=== PATIENT | female | born 1960 | race Caucasian/White ===

== ENCOUNTER 2016-06-04 17:09 | Inpatient (IN) | payer OTHER ==
[2016-06-04] MEDS ORDERED: Zofran 4 MG/2 ML VIAL IV ONE (17:37)
[2016-06-04] MEDS ORDERED: Sodium Chloride 0.9% 1000 ML 1,000 ML IV STA (17:37)
--- NOTE | 2016-06-04 17:37 | ERPHSYRPT ---
- History of Present Illness Time Seen by Provider: 06/04/16 17:32 Source: patient, family Exam Limitations: no limitations Patient Subjective Stated Complaint: PT REPORTS WAKING UP THIS AM WITH VOMITING- STATES THAT HER ACCU CHECKS HAVE BEEN OVER 500 EVEN TREATED WITH INSULIN-DENIES DIARRHEA- Triage Nursing Assessment: PT FLUSHED WARM ET DRY-A & O X 3-ABD NONTENDER TO PALP-RESP NONLABORED AT THIS TIME Physician History: The patient is a 55-year-old female who by her complaining of significant episodes of vomiting all day. The patient is a type I diabetic with an insulin pump. Her blood sugar checks have been in the 500s all day even after giving extra insulin at home. She denies any pain anywhere. She's had an episode similar to this last year which she was hospitalized for a week. Timing/Duration: today Severity: severe Modifying Factors: Improves With: nothing Associated Symptoms: nausea, vomiting, No abdominal pain Allergies/Adverse Reactions: codeine Allergy (Verified 06/04/16 17:20) orphenadrine citrate [From Norflex] Allergy (Verified 06/04/16 17:20) acetaminophen [From [facility]] Adverse Reaction (Verified 06/04/16 17:20) hydrocodone bitartrate [From [facility]] Adverse Reaction (Verified 06/04/16 17:20) levofloxacin [From Levaquin] Adverse Reaction (Verified 06/04/16 17:20) Nausea and Vomiting Home Medications: Alprazolam 1 mg [Xanax 1 mg] 1 mg PO TID 09/28/14 [History] Vitamin B Complex 1 each PO DAILY 09/22/15 [History] Vitamin E 400 Units [Vitamin E 400 UNIT SOFTGEL] 400 unit PO DAILY [History] Promethazine HCl 25 mg [Phenergan 25 mg] 25 mg PO Q4HPRN PRN 10/14/15 [ History] Hx Tetanus, Diphtheria Vaccination/Date Given: Yes Hx Influenza Vaccination/Date Given: Yes Hx Pneumococcal Vaccination/Date Given: Yes Immunizations Up to Date: Yes - Review of Systems Constitutional: No Fever, No Chills Eyes: No Symptoms Ears, Nose, & Throat: No Symptoms Respiratory: No Cough, No Dyspnea Cardiac: No Chest Pain, No Edema, No Syncope Abdominal/Gastrointestinal: Nausea, Vomiting Genitourinary Symptoms: No Dysuria Musculoskeletal: No Back Pain, No Neck Pain Skin: No Rash Neurological: No Dizziness, No Focal Weakness, No Sensory Changes Psychological: No Symptoms Endocrine: No Symptoms Hematologic/Lymphatic: No Symptoms Immunological/Allergic: No Symptoms All Other Systems: Reviewed and Negative - Past Medical History Pertinent Past Medical History: Yes Neurological History: No Pertinent History ENT History: No Pertinent History Cardiac History: Coronary Artery Disease Respiratory History: COPD Endocrine Medical History: Diabetes Type I Musculoskeletal History: Degenerative Disk Disease, Other GI Medical History: GERD History: No Pertinent History Psycho-Social History: Anxiety, Depression Female Reproductive Disorders: No Pertinent History Other Medical History: HAS INSULIN PUMP. cardiac STENT PLACEMENT X 2, back problem - Past Surgical History Past Surgical History: Yes Neuro Surgical History: No Pertinent History Cardiac: Cardiac Catheterization, Cardiac Stent Respiratory: No Pertinent History Gastrointestinal: Cholecystectomy Genitourinary: No Pertinent History Musculoskeletal: Other Female Surgical History: Tubal Ligation Other Surgical History: BUNONECTOMY. BACK SURGERY X2 - Social History Smoking Status: Current every day smoker How long have you smoked: 20 + years Exposure to second hand smoke: Yes Alcohol Use: None Drug Use: none Patient Lives Alone: No Significant Family History: heart disease, diabetes, hypertension - Female History Hx Now: No - Nursing Vital Signs Nursing Vital Signs: Initial Vital Signs Temperature 97.8 F Temperature Source Oral Pulse Rate 102 Respiratory Rate 20 Blood Pressure [Right Arm] 118/55 Pain Intensity 0 - Physical Exam General Appearance: moderate distress Eye Exam: PERRL/EOMI, eyes nml inspection Ears, Nose, Throat Exam: normal ENT inspection, TMs normal, pharynx normal, moist mucous membranes Neck Exam: normal inspection, non-tender, supple, full range of motion Respiratory Exam: normal breath sounds, lungs clear, No respiratory distress Cardiovascular Exam: tachycardia Gastrointestinal/Abdomen Exam: soft, normal bowel sounds, No tenderness, No mass Pelvic Exam: not done Rectal Exam: not done Back Exam: normal inspection, normal range of motion, No CVA tenderness, No vertebral tenderness Extremity Exam: normal inspection, normal range of motion, pelvis stable Neurologic Exam: alert, oriented x 3, cooperative, normal mood/affect, nml cerebellar function, nml station & gait, sensation nml, No motor deficits Skin Exam: normal color, warm, dry, No rash Lymphatic Exam: No adenopathy SpO2 Interpretation: normal SpO2: 95 Oxygen Delivery: Room Air Ordered Tests: Active Orders 24 hr Category Date Time Status Accucheck STAT Care 06/04/16 17:37 Active Chair Inspector And Leveler STAT Care 06/04/16 17:37 Active IV Insertion STAT Care 06/04/16 17:37 Active Pulse Oximetry (ED) STAT Care 06/04/16 17:37 Active ARTERIAL BLOOD GASES Urgent Lab 06/04/16 17:37 Results CBC W DIFF Stat Lab 06/04/16 17:45 Completed CMP Stat Lab 06/04/16 17:45 Completed Ethyl Alcohol,Urine Stat Lab 06/04/16 17:37 Ordered Lactic Acid Urgent Lab 06/04/16 17:37 Results Manual Differential NC Stat Lab 06/04/16 17:45 Completed UA Stat Lab 06/04/16 17:37 Ordered Medication Summary Discontinued Medications Generic Name Dose Route Start Last Admin Trade Name Freq PRN Reason Stop Dose Admin Sodium Chloride 1,000 mls @ 999 mls/hr 06/04/16 17:37 06/04/16 17:48 Sodium Chloride 0.9% 1000 Ml IV 06/04/16 18:37 999 mls/hr .Q1H1M STA Administration Sodium Chloride Confirm 06/04/16 17:46 Sodium Chloride 0.9% 1000 Ml Administered 06/04/16 17:47 Dose 1,000 mls @ ud .ROUTE .STK-MED ONE Insulin Human Regular 10 unit 06/04/16 18:47 06/04/16 18:54 Novolin R SQ 06/04/16 18:48 10 unit STAT ONE Administration Insulin Human Regular Confirm 06/04/16 18:54 Novolin R Administered 06/04/16 18:55 Dose 10 unit .ROUTE .STK-MED ONE Ondansetron HCl 4 mg 06/04/16 17:37 06/04/16 17:50 Zofran 4 Mg/2 Ml Vial IV 06/04/16 17:38 4 mg STAT ONE Administration Ondansetron HCl Confirm 06/04/16 17:46 Zofran 4 Mg/2 Ml Vial Administered 06/04/16 17:47 Dose 4 mg .ROUTE .STK-MED ONE Lab/Rad Data: Laboratory Result Diagrams 06/04/16 17:45 06/04/16 17:45 Laboratory Results 06/04/16 06/04/16 06/04/16 Range/Units 17:45 17:45 17:37 WBC 15.5 H (4.0-10.5) K/mm3 RBC 4.36 (4.1-5.4) M/mm3 Hgb 13.0 (12.0-16.0) gm/dl Hct 39.7 (35-47) % MCV 91.1 (78-100) fl MCH 29.8 (26-32) pg MCHC 32.7 (32-36) g/dl RDW 14.3 H (11.5-14.0) % Plt Count 281 (150-450) K/mm3 MPV 9.4 (6-9.5) fl Segmented Neutrophils 87 H (36.0-66.0) % Lymphocytes (Manual) 8 L (24-44) % Monocytes (Manual) 5 (0.0-12.0) % Differential Comment NORMAL Platelet Estimate NORMAL (NORMAL) Puncture Site Pending pCO2 36 (35-45) mmHg pO2 78 (75-100) mmHg Base Excess -8.0 L (-2.0-2.0) O2 Saturation 92.4 L (94-100) g/dF ABG pH 7.30 L (7.35-7.45) ABG HCO3 17.7 L (22-28) ABG O2 Sat (Measured) 96.8 (95-100) % Luis Test Pending A-a Gradient 27 a/A Ratio 0.74 Hemoglobin 13.2 Carboxyhemoglobin 3.9 (0.0-6.9) % THgb Methemoglobin 0.6 L (1.4-1.5) % Potassium 4.5 4.4 (3.5-5.1) Temperature 37.0 C POC O2 Flow Rate 21 % Sodium 138 (136-145) mEq/L Chloride 98 (98-107) mEq/L Carbon Dioxide 17.2 L (21-32) mEq/L Anion Gap 26.9 H (5-15) MEQ/L BUN 24 H (9-20) mg/dL Creatinine 1.38 H (0.55-1.30) mg/dl Estimated GFR 42 ML/MIN Glucose 598 H* (70-110) MG/DL Lactic Acid 3.2 H (0.4-2.0) Calcium 9.9 (8.5-10.1) mg/dL Total Bilirubin 0.6 (0.2-1.0) mg/dL AST 25 (15-37) U/L ALT 20 (12-78) U/L Alkaline Phosphatase 110 (46-116) U/L Serum Total Protein 6.9 (6.4-8.2) gm/dL Albumin 3.4 (3.4-5.0) g/dL - Progress Progress: improved Discussed with Dr.: Other (per Dr Jovanna Licona) Will see patient in: hospital (full admit) Counseled pt/family regarding: lab results, diagnosis - Departure Time of Disposition: 19:00 Departure Disposition: In-patient Admission (ICU per Dr Jovanna Licona) Clinical Impression: DKA (diabetic ketoacidoses) Condition: Stable Critical Care Time: Yes Critical Care Time(excluding separately billable procedures): 30-74 minutes
[2016-06-04] MEDS ORDERED: Zofran 4 MG/2 ML VIAL ONE (17:46)
[2016-06-04] MEDS ORDERED: Sodium Chloride 0.9% 1000 ML 1,000 ML ONE (17:46)
[2016-06-04 17:52] LABS: Mean Cell Volume 91.1 fl (78-100); Mean Corpuscular Hemoglobin 29.8 pg (26-32); Mean Platelet Volume 9.4 fl (6-9.5); Platelet Count 281 K/mm3 (150-450); Red Blood Count 4.36 M/mm3 (4.1-5.4); Red Cell Distribution Width 14.3 % (11.5-14.0); White Blood Count 15.5 K/mm3 (4.0-10.5)
[2016-06-04 17:56] LABS: A-aADO2 27; ARTERIAL BLD GAS O2 SATURATION 96.8 % (95-100); ARTERIAL BLOOD GAS FIO2 21 %; ARTERIAL BLOOD GAS PO2 78 mmHg (75-100); Lactic Acid 3.2 (0.4-2.0)
[2016-06-04 18:13] LABS: ALBUMIN 3.4 g/dL (3.4-5.0); ANION GAP 26.9 MEQ/L (5-15); BILIRUBIN,TOTAL 0.6 mg/dL (0.2-1.0); Carbon Dioxide 17.2 mEq/L (21-32); Potassium 4.5 mEq/L (3.5-5.1); Total Protein 6.9 gm/dL (6.4-8.2)
[2016-06-04] MEDS ORDERED: NovoLIN R SQ ONE (18:47)
[2016-06-04 18:53] LABS: Platelet Estimate NORMAL (NORMAL); Total Cells Counted 100
[2016-06-04] MEDS ORDERED: NovoLIN R ONE ×2 (18:54→19:13)
[2016-06-04 19:07] LABS: ALLEN TEST OK? YES
[2016-06-04] MEDS ORDERED: Sodium Chloride 0.9% 100 ML IVPB 100 ML IV ONE (19:13)
[2016-06-04 19:25] LABS: COMPLETE URINE MICROSCOPIC? YES; Collection Type CLEAN CATCH; Epithelial Cells FEW /HPF (FEW); Ph 5.5 (5-6)
[2016-06-04] MEDS: NOVOLIN R INSULIN (FOR DRIPS)** 100 UNITS in Sodium Chloride 0.9% 100 ML IVPB 100 ML IV PRN ×2 (19:36→20:14)
[2016-06-04] MEDS ORDERED: Sodium Chloride 0.9% 1000 ML 1,000 ML IV SCH (19:45)
[2016-06-04] MEDS ORDERED: NOVOLIN R INSULIN (FOR DRIPS)** 100 UNITS in Sodium Chloride 0.9% 100 ML IVPB 100 ML IV PRN (21:40)
[2016-06-04] MEDS: Sodium Chloride 0.9% 1000 ML 1,000 ML IV SCH (21:59)
[2016-06-04] MEDS: PHENERGAN 25 MG PO PRN (21:59)
[2016-06-05] MEDS: Zofran 4 MG/2 ML VIAL IV PRN ×2 (00:15→06:20)
[2016-06-05] MEDS: XANAX 1 MG PO SCH ×4 (00:16→21:13)
[2016-06-05] MEDS: PHENERGAN 25 MG PO PRN (04:29)
[2016-06-05 04:44] LABS: ANION GAP 20.4 MEQ/L (5-15); Carbon Dioxide 21.9 mEq/L (21-32); Potassium 4.2 mEq/L (3.5-5.1)
[2016-06-05 04:45] LABS: BASOPHIL % 0.1 % (0.0-0.4); Granulocytes % 88.3 % (36.0-66.0); Lymphocytes % 8.6 % (24.0-44.0); Mean Corpuscular Hemoglobin 29.4 pg (26-32); Mean Platelet Volume 9.1 fl (6-9.5); Platelet Count 295 K/mm3 (150-450); Red Blood Count 4.22 M/mm3 (4.1-5.4); Red Cell Distribution Width 14.3 % (11.5-14.0); White Blood Count 18.4 K/mm3 (4.0-10.5)
[2016-06-05] MEDS: Sodium Chloride 0.9% 1000 ML 1,000 ML IV SCH ×5 (07:42→22:01)
--- NOTE | 2016-06-05 08:33 | PCM.HP ---
History of Present Illness - Chief Complaint Chief Complaint: c/o abdominal pain and nausea for 2 days History of Present Illness: The patient is a 55-year-old female who by her complaining of significant episodes of vomiting all day. The patient is a type I diabetic with an insulin pump. Her blood sugar checks have been in the 500s all day even after giving extra insulin at home. She denies any pain anywhere. She's had an episode similar to this last year which she was hospitalized for a week. - Review of Systems Constitutional: Lethargy, Malaise, Weakness, No Fever, No Chills Eyes: No Symptoms Ears, Nose, & Throat: No Symptoms Respiratory: No Cough, No Short Of Breath Cardiac: No Chest Pain, No Edema, No Syncope Abdominal/Gastrointestinal: Abdominal Pain, Nausea, Vomiting, No Diarrhea Genitourinary Symptoms: No Dysuria Musculoskeletal: No Back Pain, No Neck Pain Skin: No Rash Neurological: No Dizziness, No Focal Weakness, No Sensory Changes Psychological: No Symptoms Endocrine: No Symptoms Hematologic/Lymphatic: No Symptoms Immunological/Allergic: No Symptoms Medications & Allergies Home Medications: Home Medication List Alprazolam 1 mg [Xanax 1 mg] 1 mg PO TID 09/28/14 [History Confirmed 06/04] Vitamin B Complex 1 each PO DAILY 09/22/15 [History Confirmed 06/04/16] Vitamin E 400 Units [Vitamin E 400 UNIT SOFTGEL] 400 unit PO DAILY [History Confirmed 06/04/16] Promethazine HCl 25 mg [Phenergan 25 mg] 25 mg PO Q4HPRN PRN 10/14/15 [ History Confirmed 06/04/16] Allergies/Adverse Reactions: Allergies Allergy/AdvReac Type Severity Reaction Status Date / Time codeine Allergy Verified 06/04/16 17:20 orphenadrine citrate Allergy Verified 06/04/16 17:20 [From Norflex] acetaminophen [From [place]] AdvReac Verified 06/04/16 17:20 hydrocodone bitartrate AdvReac Verified 06/04/16 17:20 [From [place]] levofloxacin [From Levaquin] AdvReac Nausea and Verified 06/04/16 17:20 Vomiting - Past Medical History Past Medical History: Yes Neurological History: No Pertinent History ENT History: No Pertinent History Cardiac History: Coronary Artery Disease Respiratory History: COPD Endocrine Medical History: Diabetes Type I Musculoskelatal History: Degenerative Disk Disease, Other GI Medical History: GERD History: No Pertinent History Pyscho-Social History: Anxiety, Depression Reproductive Disorders: No Pertinent History Comment: HAS INSULIN PUMP. cardiac STENT PLACEMENT X 2, back problem - Female History Are you now?: No - Past Surgical History Past Surgical History: Yes Neuro Surgical History: No Pertinent History Cardiac History: Cardiac Catheterization, Cardiac Stent Respiratory Surgery: No Pertinent History GI Surgical History: Cholecystectomy Genitourinary Surgical Hx: No Pertinent History Musculskeletal Surgical Hx: Other Female Surgical History: Tubal Ligation Other Surgical History: BUNONECTOMY. BACK SURGERY X2 - Social History Smoking Status: Current every day smoker How long have you smoked: 20 + years Exposure to second hand smoke: Yes Alcohol: None Drug Use: none Significant Family History: heart disease, diabetes, hypertension - Physical Exam Vital Signs: Vital Signs - 24 hr Temp Pulse Resp BP Pulse Ox 06/05/16 07:46 98.2 F 106 H 20 134/72 94 L 06/05/16 07:00 105 H 19 129/64 95 06/05/16 06:45 21 06/05/16 06:00 107 H 21 145/66 95 06/05/16 05:00 103 H 20 118/58 95 06/05/16 04:00 107 H 22 158/78 95 06/05/16 03:44 22 06/05/16 03:00 103 H 22 153/67 96 06/05/16 02:00 105 H 22 157/77 97 06/05/16 01:00 103 H 24 165/85 96 06/05/16 00:49 103 H 97 06/05/16 00:01 103 H 06/05/16 00:00 98.2 F 103 H 20 165/85 96 06/04/16 23:44 19 06/04/16 22:00 103 H 19 176/80 95 06/04/16 21:40 102 H 24 157/77 94 L 06/04/16 20:56 98.2 F 107 H 16 152/82 94 L 06/04/16 20:50 107 H 16 152/82 94 L 06/04/16 20:49 98.2 F 107 H 16 152/82 94 L 06/04/16 20:00 110 H 16 139/66 96 06/04/16 19:39 110 H 16 139/66 99 06/04/16 19:12 95 06/04/16 18:56 102 H 20 118/55 97 06/04/16 18:35 103 H 20 114/63 97 06/04/16 18:15 97 06/04/16 17:14 97.8 F 107 H 24 149/68 95 General Appearance: moderate distress, alert Neurologic Exam: alert, oriented x 3, cooperative, normal mood/affect, nml cerebellar function, nml station & gait, sensation nml, No motor deficits Eye Exam: PERRL/EOMI, eyes nml inspection Ears, Nose, Throat Exam: normal ENT inspection, TMs normal, pharynx normal, moist mucous membranes Neck Exam: normal inspection, non-tender, supple, full range of motion Respiratory Exam: normal breath sounds, lungs clear, No respiratory distress Cardiovascular Exam: regular rate/rhythm, normal heart sounds, normal peripheral pulses Gastrointestinal/Abdomen Exam: soft, normal bowel sounds, No tenderness, No mass Back Exam: normal inspection, normal range of motion, No CVA tenderness, No vertebral tenderness Extremity Exam: normal inspection, normal range of motion, pelvis stable Skin Exam: normal color, warm, dry, No rash Lymphatic Exam: No adenopathy Results - Labs Lab/Micro Results: Accuchecks Date 06/05/1606/05/1606/05/16 Date 06/05/16 Time 07:45 Time 06:18 Time 06:18 Time 05:36 Accucheck Value: 216 Accucheck Value: 271 Accucheck Value: 317 Accucheck Value: 311 Accucheck Value: 351 Accucheck Value: 357 Lab Results-Last 24 Hours 06/04/16 06/05/16 06/05/16 Range/Units 22:10 00:15 02:24 WBC (4.0-10.5) K/mm3 RBC (4.1-5.4) M/mm3 Hgb (12.0-16.0) gm/dl Hct (35-47) % MCV (78-100) fl MCH (26-32) pg MCHC (32-36) g/dl RDW (11.5-14.0) % Plt Count (150-450) K/mm3 MPV (6-9.5) fl Gran % (36.0-66.0) % Lymphocytes % (24.0-44.0) % Monocytes % (0.0-12.0) % Eosinophils % (0.00-5.0) % Basophils % (0.0-0.4) % Basophils # (0-0.4) Sodium (136-145) mEq/L Potassium (3.5-5.1) mEq/L Chloride (98-107) mEq/L Carbon Dioxide (21-32) mEq/L Anion Gap (5-15) MEQ/L BUN (9-20) mg/dL Creatinine (0.55-1.30) mg/dl Estimated GFR ML/MIN Glucose 435 H 351 H 347 H (70-110) MG/DL Hemoglobin A1c (4.5-6.2) Calcium (8.5-10.1) mg/dL 06/05/16 06/05/16 06/05/16 Range/Units 04:29 04:29 04:29 WBC 18.4 H (4.0-10.5) K/mm3 RBC 4.22 (4.1-5.4) M/mm3 Hgb 12.4 (12.0-16.0) gm/dl Hct 38.4 (35-47) % MCV 91.0 (78-100) fl MCH 29.4 (26-32) pg MCHC 32.3 (32-36) g/dl RDW 14.3 H (11.5-14.0) % Plt Count 295 (150-450) K/mm3 MPV 9.1 (6-9.5) fl Gran % 88.3 H (36.0-66.0) % Lymphocytes % 8.6 L (24.0-44.0) % Monocytes % 3.0 (0.0-12.0) % Eosinophils % 0.0 (0.00-5.0) % Basophils % 0.1 (0.0-0.4) % Basophils # 0.02 (0-0.4) Sodium 143 (136-145) mEq/L Potassium 4.2 (3.5-5.1) mEq/L Chloride 105 (98-107) mEq/L Carbon Dioxide 21.9 (21-32) mEq/L Anion Gap 20.4 H (5-15) MEQ/L BUN 21 H (9-20) mg/dL Creatinine 1.29 (0.55-1.30) mg/dl Estimated GFR 46 ML/MIN Glucose 328 H (70-110) MG/DL Hemoglobin A1c 9.8 H (4.5-6.2) Calcium 9.1 (8.5-10.1) mg/dL 06/05/16 Range/Units 06:18 WBC (4.0-10.5) K/mm3 RBC (4.1-5.4) M/mm3 Hgb (12.0-16.0) gm/dl Hct (35-47) % MCV (78-100) fl MCH (26-32) pg MCHC (32-36) g/dl RDW (11.5-14.0) % Plt Count (150-450) K/mm3 MPV (6-9.5) fl Gran % (36.0-66.0) % Lymphocytes % (24.0-44.0) % Monocytes % (0.0-12.0) % Eosinophils % (0.00-5.0) % Basophils % (0.0-0.4) % Basophils # (0-0.4) Sodium (136-145) mEq/L Potassium (3.5-5.1) mEq/L Chloride (98-107) mEq/L Carbon Dioxide (21-32) mEq/L Anion Gap (5-15) MEQ/L BUN (9-20) mg/dL Creatinine (0.55-1.30) mg/dl Estimated GFR ML/MIN Glucose 274 H (70-110) MG/DL Hemoglobin A1c (4.5-6.2) Calcium (8.5-10.1) mg/dL Accuchecks Date 06/05/16 Date 06/05/16 Date 06/05/16 Date 06/05/16 Time 07:45 Time 06:18 Time 06:18 Time 05:36 Accucheck Value: 216 Accucheck Value: 271 Accucheck Value: 317 Accucheck Value: 311 Accucheck Value: 351 Accucheck Value: 357 Assessment/Plan (1) DKA (diabetic ketoacidoses) Current Visit: Yes Status: Acute Qualifiers: Diabetes mellitus type: type 1 Diabetes mellitus complication detail: without coma Qualified Code(s): E10.10 - Type 1 diabetes mellitus with ketoacidosis without coma Assessment & Plan: Chief Complaint Diagnosis DKA Allergies Allergy/AdvReac Type Severity Reaction Status Date / Time codeine Allergy Verified 06/04/16 17:20 orphenadrine citrate Allergy Verified 06/04/16 17:20 [From Norflex] acetaminophen [From [place]] AdvReac Verified 06/04/16 17:20 hydrocodone bitartrate AdvReac Verified 06/04/16 17:20 [From [place]] levofloxacin [From Levaquin] AdvReac Nausea and Verified 06/04/16 17:20 Vomiting Vital Signs (Last 24 hours) Temp Pulse Resp BP Pulse Ox 06/05/16 07:46 98.2 F 106 H 20 134/72 94 L 06/05/16 07:00 105 H 19 129/64 95 06/05/16 06:45 21 06/05/16 06:00 107 H 21 145/66 95 06/05/16 05:00 103 H 20 118/58 95 06/05/16 04:00 107 H 22 158/78 95 06/05/16 03:44 22 06/05/16 03:00 103 H 22 153/67 96 06/05/16 02:00 105 H 22 157/77 97 06/05/16 01:00 103 H 24 165/85 96 06/05/16 00:49 103 H 97 06/05/16 00:01 103 H 06/05/16 00:00 98.2 F 103 H 20 165/85 96 06/04/16 23:44 19 06/04/16 22:00 103 H 19 176/80 95 06/04/16 21:40 102 H 24 157/77 94 L 06/04/16 20:56 98.2 F 107 H 16 152/82 94 L 06/04/16 20:50 107 H 16 152/82 94 L 06/04/16 20:49 98.2 F 107 H 16 152/82 94 L 06/04/16 20:00 110 H 16 139/66 96 06/04/16 19:39 110 H 16 139/66 99 06/04/16 19:12 95 06/04/16 18:56 102 H 20 118/55 97 06/04/16 18:35 103 H 20 114/63 97 06/04/16 18:15 97 06/04/16 17:14 97.8 F 107 H 24 149/68 95 Current Medications Generic Name Dose Route Start Last Admin Trade Name Petrona PRN Reason Stop Dose Admin Alprazolam 1 mg 06/04/16 22:00 06/05/16 00:16 Xanax 1 Mg PO 07/04/16 21:59 1 mg TID NISSA Administration Sodium Chloride 1,000 mls @ 200 mls/hr 06/04/16 21:45 06/05/16 07:42 Sodium Chloride 0.9% 1000 Ml IV 07/04/16 21:44 100 mls/hr .Q5H NISSA Administration Insulin Human Regular 100 101 mls @ 2.02 mls/hr 06/04/16 21:40 units/ Sodium Chloride IV 07/04/16 21:39 .Q24H PRN HYPERGLYCEMIA Protocol 2 UNITS/HR Ondansetron HCl 4 mg 06/04/16 20:53 06/05/16 06:20 Zofran 4 Mg/2 Ml Vial IV 07/04/16 20:52 4 mg Q6H PRN PRN Administration NAUSEA/VOMITING Promethazine HCl 25 mg 06/04/16 21:37 06/05/16 04:29 Phenergan 25 Mg PO 07/04/16 21:36 25 mg Q4HPRN PRN Administration NAUSEA Promethazine HCl 12.5 mg 06/05/16 08:19 Phenergan 25 Mg Inj IV 07/05/16 08:18 Q6H PRN PRN NAUSEA/VOMITING Discontinued Medications Generic Name Dose Route Start Last Admin Trade Name Petrona PRN Reason Stop Dose Admin Sodium Chloride 1,000 mls @ 999 mls/hr 06/04/16 17:37 06/04/16 17:48 Sodium Chloride 0.9% 1000 Ml IV 06/04/16 18:37 999 mls/hr .Q1H1M STA Administration Sodium Chloride Confirm 06/04/16 17:46 Sodium Chloride 0.9% 1000 Ml Administered 06/04/16 17:47 Dose 1,000 mls @ ud .ROUTE .STK-MED ONE Insulin Human Regular 100 101 mls @ 0 mls/hr 06/04/16 19:05 06/04/16 20:14 units/ Sodium Chloride IV 07/04/16 19:04 2 mls/hr .Q0M PRN Administration HYPERGLYCEMIA Protocol Per Protocol Sodium Chloride Confirm 06/04/16 19:13 Sodium Chloride 0.9% 100 Ml Ivpb Administered 06/04/16 19:14 Dose 100 mls @ ud IV .STK-MED ONE Sodium Chloride 1,000 mls @ 50 mls/hr 06/04/16 19:45 06/04/16 19:37 Sodium Chloride 0.9% 1000 Ml IV 07/04/16 19:44 50 mls/hr .Q20H NISSA Administration Insulin Human Regular 10 unit 06/04/16 18:47 06/04/16 18:54 Novolin R SQ 06/04/16 18:48 10 unit STAT ONE Administration Insulin Human Regular Confirm 06/04/16 18:54 Novolin R Administered 06/04/16 18:55 Dose 10 unit .ROUTE .STK-MED ONE Insulin Human Regular Confirm 06/04/16 19:13 Novolin R Administered 06/04/16 19:14 Dose 1 unit .ROUTE .STK-MED ONE Ondansetron HCl 4 mg 06/04/16 17:37 06/04/16 17:50 Zofran 4 Mg/2 Ml Vial IV 06/04/16 17:38 4 mg STAT ONE Administration Ondansetron HCl Confirm 06/04/16 17:46 Zofran 4 Mg/2 Ml Vial Administered 06/04/16 17:47 Dose 4 mg .ROUTE .STK-MED ONE Intake & Output (Last 24 hours) 06/02/16 06/03/16 06/04/16 06/05/16 11:59 11:59 11:59 11:59 Intake Total 2660 Output Total 1925 Balance 735 Weight 62.913 kg Laboratory Results (Last 24 hours) 06/05/16 06/05/16 06/05/16 06:18 04:29 04:29 WBC RBC Hgb Hct MCV MCH MCHC RDW Plt Count MPV Gran % Lymphocytes % Monocytes % Eosinophils % Basophils % Segmented Neutrophils Lymphocytes (Manual) Monocytes (Manual) Basophils # Differential Comment Platelet Estimate Puncture Site pCO2 pO2 Base Excess O2 Saturation ABG pH ABG HCO3 ABG O2 Sat (Measured) Luis Test A-a Gradient a/A Ratio Hemoglobin Carboxyhemoglobin Methemoglobin Potassium 4.2 Temperature POC O2 Flow Rate Sodium 143 Chloride 105 Carbon Dioxide 21.9 Anion Gap 20.4 H BUN 21 H Creatinine 1.29 Estimated GFR 46 Glucose 274 H 328 H Hemoglobin A1c 9.8 H Lactic Acid Calcium 9.1 Total Bilirubin AST ALT Alkaline Phosphatase Serum Total Protein Albumin Ur Collection Type Urine Color Urine Appearance Urine pH Ur Specific [place] Urine Protein Urine Glucose (UA) Urine Ketones Urine Nitrite Urine Bilirubin Urine Urobilinogen Urine WBC (Auto) Urine RBC (Auto) Ur Epithelial Cells Urine Ethyl Alcohol Specimen Received 06/05/16 06/05/16 06/05/16 04:29 02:24 00:15 WBC 18.4 H RBC 4.22 Hgb 12.4 Hct 38.4 MCV 91.0 MCH 29.4 MCHC 32.3 RDW 14.3 H Plt Count 295 MPV 9.1 Gran % 88.3 H Lymphocytes % 8.6 L Monocytes % 3.0 Eosinophils % 0.0 Basophils % 0.1 Segmented Neutrophils Lymphocytes (Manual) Monocytes (Manual) Basophils # 0.02 Differential Comment Platelet Estimate Puncture Site pCO2 pO2 Base Excess O2 Saturation ABG pH ABG HCO3 ABG O2 Sat (Measured) Luis Test A-a Gradient a/A Ratio Hemoglobin Carboxyhemoglobin Methemoglobin Potassium Temperature POC O2 Flow Rate Sodium Chloride Carbon Dioxide Anion Gap BUN Creatinine Estimated GFR Glucose 347 H 351 H Hemoglobin A1c Lactic Acid Calcium Total Bilirubin AST ALT Alkaline Phosphatase Serum Total Protein Albumin Ur Collection Type Urine Color Urine Appearance Urine pH Ur Specific [place] Urine Protein Urine Glucose (UA) Urine Ketones Urine Nitrite Urine Bilirubin Urine Urobilinogen Urine WBC (Auto) Urine RBC (Auto) Ur Epithelial Cells Urine Ethyl Alcohol Specimen Received 06/04/16 06/04/16 06/04/16 22:10 19:15 19:15 WBC RBC Hgb Hct MCV MCH MCHC RDW Plt Count MPV Gran % Lymphocytes % Monocytes % Eosinophils % Basophils % Segmented Neutrophils Lymphocytes (Manual) Monocytes (Manual) Basophils # Differential Comment Platelet Estimate Puncture Site pCO2 pO2 Base Excess O2 Saturation ABG pH ABG HCO3 ABG O2 Sat (Measured) Luis Test A-a Gradient a/A Ratio Hemoglobin Carboxyhemoglobin Methemoglobin Potassium Temperature POC O2 Flow Rate Sodium Chloride Carbon Dioxide Anion Gap BUN Creatinine Estimated GFR Glucose 435 H Hemoglobin A1c Lactic Acid Calcium Total Bilirubin AST ALT Alkaline Phosphatase Serum Total Protein Albumin Ur Collection Type CLEAN CATCH Urine Color LT.YELLOW Urine Appearance CLEAR Urine pH 5.5 5.5 Ur Specific [place] <=1.005 Urine Protein NEGATIVE Urine Glucose (UA) >=1000 Urine Ketones LARGE-80 Urine Nitrite NEGATIVE Urine Bilirubin NEGATIVE Urine Urobilinogen 0.2 Urine WBC (Auto) NEGATIVE Urine RBC (Auto) TRACE HEMOLYZED Ur Epithelial Cells FEW Urine Ethyl Alcohol 0 Specimen Received 06/04/16:1915 06/04/16 06/04/16 06/04/16 17:45 17:45 17:37 WBC 15.5 H RBC 4.36 Hgb 13.0 Hct 39.7 MCV 91.1 MCH 29.8 MCHC 32.7 RDW 14.3 H Plt Count 281 MPV 9.4 Gran % Lymphocytes % Monocytes % Eosinophils % Basophils % Segmented Neutrophils 87 H Lymphocytes (Manual) 8 L Monocytes (Manual) 5 Basophils # Differential Comment NORMAL Platelet Estimate NORMAL Puncture Site LEFT BRACHIAL pCO2 36 pO2 78 Base Excess -8.0 L O2 Saturation 92.4 L ABG pH 7.30 L ABG HCO3 17.7 L ABG O2 Sat (Measured) 96.8 Luis Test YES A-a Gradient 27 a/A Ratio 0.74 Hemoglobin 13.2 Carboxyhemoglobin 3.9 Methemoglobin 0.6 L Potassium 4.5 4.4 Temperature 37.0 POC O2 Flow Rate 21 Sodium 138 Chloride 98 Carbon Dioxide 17.2 L Anion Gap 26.9 H BUN 24 H Creatinine 1.38 H Estimated GFR 42 Glucose 598 H* Hemoglobin A1c Lactic Acid 3.2 H Calcium 9.9 Total Bilirubin 0.6 AST 25 ALT 20 Alkaline Phosphatase 110 Serum Total Protein 6.9 Albumin 3.4 Ur Collection Type Urine Color Urine Appearance Urine pH Ur Specific [place] Urine Protein Urine Glucose (UA) Urine Ketones Urine Nitrite Urine Bilirubin Urine Urobilinogen Urine WBC (Auto) Urine RBC (Auto) Ur Epithelial Cells Urine Ethyl Alcohol Specimen Received Orders (Last 24 hours) Category Date Time Status Up With Assistance ROUTINE Activity 06/04/16 20:53 Active Accucheck Q3H Care 06/05/16 08:20 Active Accucheck STAT Care 06/04/16 17:37 Completed Admission/Status Order ROUTINE Care 06/04/16 20:53 Active Test Case Developer STAT Care 06/04/16 17:37 Active Test Case Developer STAT Care 06/04/16 19:35 Completed Code Status Order ROUTINE Care 06/04/16 20:53 Active IV Care Q1H Care 06/04/16 20:53 Active IV Insertion STAT Care 06/04/16 17:37 Active Pulse Oximetry (ED) STAT Care 06/04/16 17:37 Active Infection Control Consult ROUTINE Cons 06/04/16 21:14 Active Clear Liquid Diet 06/05/16 Breakfast Active Nutritional Admission Screen once Diet 06/04/16 21:14 Completed ARTERIAL BLOOD GASES Urgent Lab 06/04/16 17:37 Completed BMP AM.LAB Lab 06/05/16 04:29 Completed Blood Sugar [Glucose] Urgent Lab 06/04/16 22:10 Completed CBC Routine Lab 06/05/16 15:00 Ordered CBC W DIFF AM.LAB Lab 06/05/16 04:29 Completed CBC W DIFF Stat Lab 06/04/16 17:45 Completed CMP Routine Lab 06/05/16 15:00 Ordered CMP Stat Lab 06/04/16 17:45 Completed Ethyl Alcohol,Urine Stat Lab 06/04/16 19:15 Completed Glucose Urgent Lab 06/05/16 00:15 Completed Glucose Urgent Lab 06/05/16 02:24 Completed Glucose Urgent Lab 06/05/16 06:18 Completed HEMOGLOBIN A1C Routine Lab 06/05/16 04:29 Completed Lactic Acid Urgent Lab 06/04/16 17:37 Completed Manual Differential NC Stat Lab 06/04/16 17:45 Completed UA W/ MICROSCOPIC Stat Lab 06/04/16 19:15 Completed Alprazolam 1 mg [Xanax 1 mg] Med 06/04/16 22:00 Active 1 mg PO TID Insulin Regular, Human [NovoLIN R] Med 06/04/16 19:13 Discontinued 1 unit .ROUTE .STK-MED ONE Insulin Regular, Human [NovoLIN R] Med 06/04/16 18:54 Discontinued 10 unit .ROUTE .STK-MED ONE Insulin Regular, Human [NovoLIN R] Med 06/04/16 18:47 Discontinued 10 unit SQ STAT ONE NaCl 0.9% 1000 ml [Sodium Chloride 0.9% 1000 ML] 1,000 Med 06/04/16 17:46 Discontinued ml .ROUTE UD NaCl 0.9% 1000 ml [Sodium Chloride 0.9% 1000 ML] 1,000 Med 06/04/16 21:45 Active ml IV 200 mls/hr NaCl 0.9% 1000 ml [Sodium Chloride 0.9% 1000 ML] 1,000 Med 06/04/16 19:45 Discontinued ml IV 50 mls/hr NaCl 0.9% 1000 ml [Sodium Chloride 0.9% 1000 ML] 1,000 Med 06/04/16 17:37 Discontinued ml IV 999 mls/hr NaCl 0.9% 100Ml [Sodium Chloride 0.9% 100 ML IVPB] 100 Med 06/04/16 21:40 Active ml Insulin Reg Human Rec [Novolin R Insulin (For Drips)* *] 100 units IV 2 units/hr NaCl 0.9% 100Ml [Sodium Chloride 0.9% 100 ML IVPB] 100 Med 06/04/16 19:05 Discontinued ml Insulin Reg Human Rec [Novolin R Insulin (For Drips)* *] 100 units IV Per Protocol NaCl 0.9% 100Ml [Sodium Chloride 0.9% 100 ML IVPB] 100 Med 06/04/16 19:13 Discontinued ml IV UD Ondansetron HCl 4 mg/2 ml [Zofran 4 MG/2 ML VIAL] Med 06/04/16 17:46 Discontinued 4 mg .ROUTE .STK-MED ONE Ondansetron HCl 4 mg/2 ml [Zofran 4 MG/2 ML VIAL] Med 06/04/16 20:53 Active 4 mg IV Q6H PRN PRN Ondansetron HCl 4 mg/2 ml [Zofran 4 MG/2 ML VIAL] Med 06/04/16 17:37 Discontinued 4 mg IV STAT ONE Promethazine HCl 25 mg Amp [Phenergan 25 MG INJ] Med 06/05/16 08:19 Ordered 12.5 mg IV Q6H PRN PRN Promethazine HCl 25 mg [Phenergan 25 mg] Med 06/04/16 21:37 Active 25 mg PO Q4HPRN PRN Transfer Order Routine Transfer 06/04/16 19:01 Completed Patient Care Notes (Last 24 hours) 06/05/16 08:23 Nursing Note by Erika Greenberg dr. at bedside, ivf increased to 200cc/hr, given order to change accuchecks to q3h cbc, cmp at 3 pm today, Increase IV fluid to 200 cc/hr, accucheck q3 h Code(s): E13.10 - OTH DIABETES MELLITUS WITH KETOACIDOSIS WITHOUT COMA (2) Diabetes mellitus, insulin dependent (IDDM), uncontrolled Current Visit: No Status: Chronic Code(s): E10.65 - TYPE 1 DIABETES MELLITUS WITH HYPERGLYCEMIA (3) Type 1 diabetes mellitus Current Visit: No Status: Chronic
[2016-06-05] MEDS: Phenergan 25 MG INJ IV PRN ×3 (08:51→21:49)
[2016-06-05 15:29] LABS: Mean Cell Volume 90.6 fl (78-100); Mean Corpuscular Hemoglobin 29.8 pg (26-32); Mean Platelet Volume 8.9 fl (6-9.5); Platelet Count 254 K/mm3 (150-450); Red Blood Count 3.82 M/mm3 (4.1-5.4); Red Cell Distribution Width 14.5 % (11.5-14.0); White Blood Count 16.2 K/mm3 (4.0-10.5)
[2016-06-05 15:38] LABS: ALBUMIN 2.8 g/dL (3.4-5.0); ANION GAP 16.1 MEQ/L (5-15); BILIRUBIN,TOTAL 0.4 mg/dL (0.2-1.0); Carbon Dioxide 23.6 mEq/L (21-32); Potassium 3.8 mEq/L (3.5-5.1)
[2016-06-06] MEDS: Sodium Chloride 0.9% 1000 ML 1,000 ML IV SCH ×2 (03:05→08:40)
[2016-06-06] MEDS: Phenergan 25 MG INJ IV PRN (03:53)
[2016-06-06 05:48] LABS: Mean Cell Volume 91.6 fl (78-100); Mean Corpuscular Hemoglobin 29.6 pg (26-32); Mean Platelet Volume 8.7 fl (6-9.5); Platelet Count 204 K/mm3 (150-450); Red Blood Count 3.71 M/mm3 (4.1-5.4); Red Cell Distribution Width 14.8 % (11.5-14.0); White Blood Count 11.9 K/mm3 (4.0-10.5)
[2016-06-06 06:10] VITALS: O2SAT 96
[2016-06-06 06:18] LABS: ALBUMIN 2.5 g/dL (3.4-5.0); ALKALINE PHOSPHATASE 79 U/L (46-116); BILIRUBIN,TOTAL 0.3 mg/dL (0.2-1.0); BLOOD UREA NITROGEN 11 mg/dL (9-20); CHLORIDE 110 mEq/L (98-107); Glucose 117 MG/DL (70-110); MAGNESIUM 1.3 mg/dL (1.8-2.4); Potassium 3.5 mEq/L (3.5-5.1); SGOT/AST 18 U/L (15-37); SGPT/ALT 18 U/L (12-78); SODIUM 144 mEq/L (136-145); Total Protein 5.5 gm/dL (6.4-8.2)
[2016-06-06] MEDS ORDERED: Potassium Chloride 40 MEQ/20 ML VIAL 40 MEQ, Magnesium Sulfate 1 GM/2 ML VIAL*** 2 GM i... IV SCH ×3 (08:30)
[2016-06-06] MEDS: XANAX 1 MG PO SCH (08:39)
[2016-06-06] MEDS ORDERED: NON-FORMULARY ITEM (Vitamin B Complex [Vitamin B Complex] 1 EACH) PO SCH (10:00)
[2016-06-06] MEDS ORDERED: Vitamin E 400 UNIT SOFTGEL PO SCH (10:00)
[2016-06-06] MEDS ORDERED: VITA-BEE WITH C PO SCH (10:00)
[2016-06-06 11:41] VITALS: BP 143/93; PULSE 68
--- NOTE | 2016-06-06 12:20 | PCM.DS ---
Discharge Summary Date of Admission: 06/04/16 20:45 Admitting Physician: ANH BEDOYA Primary Care Provider: LYUDMILA ARIAS Allergies Allergies codeine Allergy (Verified 06/04/16 17:20) orphenadrine citrate [From Norflex] Allergy (Verified 06/04/16 17:20) acetaminophen [From [place]] Adverse Reaction (Verified 06/04/16 17:20) hydrocodone bitartrate [From [place]] Adverse Reaction (Verified 06/04/16 17:20) levofloxacin [From Levaquin] Adverse Reaction (Verified 06/04/16 17:20) Nausea and Vomiting Hospital Summary - Hospital Course Hospital Course: Chief Complaint Diagnosis c/o abdominal pain and nausea for 2 days Allergies Allergy/AdvReac Type Severity Reaction Status Date / Time codeine Allergy Verified 06/04/16 17:20 orphenadrine citrate Allergy Verified 06/04/16 17:20 [From Norflex] acetaminophen [From [place]] AdvReac Verified 06/04/16 17:20 hydrocodone bitartrate AdvReac Verified 06/04/16 17:20 [From [place]] levofloxacin [From Levaquin] AdvReac Nausea and Verified 06/04/16 17:20 Vomiting Vital Signs (Last 24 hours) Temp Pulse Resp BP Pulse Ox 06/06/16 11:40 97.9 F 68 18 143/93 96 06/06/16 07:58 73 06/06/16 07:57 73 15 96 06/06/16 07:00 98.1 F 74 16 134/83 96 06/06/16 06:00 66 21 96 06/06/16 05:00 68 19 126/72 95 06/06/16 04:00 98.3 F 66 20 139/85 96 06/06/16 03:00 68 20 141/81 96 06/06/16 02:37 71 16 117/65 95 06/06/16 01:00 72 20 136/84 97 06/06/16 00:01 71 06/06/16 00:00 71 20 139/83 97 06/05/16 23:00 80 18 130/80 06/05/16 22:00 82 18 06/05/16 21:00 76 20 123/81 95 06/05/16 20:00 85 15 138/78 96 06/05/16 18:54 85 21 144/78 94 L 06/05/16 17:57 89 19 111/63 96 06/05/16 16:55 91 H 19 127/69 96 06/05/16 16:00 89 16 127/69 95 06/05/16 15:00 91 H 16 136/98 96 06/05/16 13:45 98.2 F 85 16 126/61 98 06/05/16 12:39 85 16 131/74 98 Current Medications Generic Name Dose Route Start Last Admin Trade Name Freq PRN Reason Stop Dose Admin Alprazolam 1 mg 06/04/16 22:00 06/06/16 08:39 Xanax 1 Mg PO 07/04/16 21:59 1 mg TID NISSA Administration Sodium Chloride 1,000 mls @ 100 mls/hr 06/04/16 21:45 06/06/16 08:40 Sodium Chloride 0.9% 1000 Ml IV 07/04/16 21:44 100 mls/hr .Q10H NISSA Administration Insulin Human Regular 100 101 mls @ 2.02 mls/hr 06/04/16 21:40 06/05/16 16:50 units/ Sodium Chloride IV 07/04/16 21:39 2.02 mls/hr .Q24H PRN Administration HYPERGLYCEMIA Protocol 2 UNITS/HR Potassium Chloride 40 meq/ 274 mls @ 68 mls/hr 06/06/16 08:30 06/06/16 08:39 Magnesium Sulfate 2 gm/ Sodium IV 06/06/16 12:31 68 mls/hr Chloride .Q4H2M NISSA Administration Multivitamins 1 tab 06/06/16 10:00 06/06/16 11:31 Vidya-Bee With C PO 07/06/16 09:59 1 tab DAILY NISSA Administration Ondansetron HCl 4 mg 06/04/16 20:53 06/05/16 06:20 Zofran 4 Mg/2 Ml Vial IV 07/04/16 20:52 4 mg Q6H PRN PRN Administration NAUSEA/VOMITING Promethazine HCl 25 mg 06/04/16 21:37 06/05/16 04:29 Phenergan 25 Mg PO 07/04/16 21:36 25 mg Q4HPRN PRN Administration NAUSEA Promethazine HCl 12.5 mg 06/05/16 08:19 02/06/17 03:53 Phenergan 25 Mg Inj IV 07/05/16 08:18 12.5 mg Q6H PRN PRN Administration NAUSEA/VOMITING Vitamin E 400 u 06/06/16 10:00 06/06/16 11:31 Vitamin E 400 Unit Softgel PO 07/06/16 09:59 400 u DAILY NISSA Administration Discontinued Medications Generic Name Dose Route Start Last Admin Trade Name Freq PRN Reason Stop Dose Admin Sodium Chloride 1,000 mls @ 999 mls/hr 06/04/16 17:37 06/04/16 17:48 Sodium Chloride 0.9% 1000 Ml IV 06/04/16 18:37 999 mls/hr .Q1H1M STA Administration Sodium Chloride Confirm 06/04/16 17:46 Sodium Chloride 0.9% 1000 Ml Administered 06/04/16 17:47 Dose 1,000 mls @ ud .ROUTE .STK-MED ONE Insulin Human Regular 100 101 mls @ 0 mls/hr 06/04/16 19:05 06/04/16 20:14 units/ Sodium Chloride IV 07/04/16 19:04 2 mls/hr .Q0M PRN Administration HYPERGLYCEMIA Protocol Per Protocol Sodium Chloride Confirm 06/04/16 19:13 Sodium Chloride 0.9% 100 Ml Ivpb Administered 06/04/16 19:14 Dose 100 mls @ ud IV .STK-MED ONE Sodium Chloride 1,000 mls @ 50 mls/hr 06/04/16 19:45 06/04/16 19:37 Sodium Chloride 0.9% 1000 Ml IV 07/04/16 19:44 50 mls/hr .Q20H NISSA Administration Insulin Human Regular 10 unit 06/04/16 18:47 06/04/16 18:54 Novolin R SQ 06/04/16 18:48 10 unit STAT ONE Administration Insulin Human Regular Confirm 06/04/16 18:54 Novolin R Administered 06/04/16 18:55 Dose 10 unit .ROUTE .STK-MED ONE Insulin Human Regular Confirm 06/04/16 19:13 Novolin R Administered 06/04/16 19:14 Dose 1 unit .ROUTE .STK-MED ONE Ondansetron HCl 4 mg 06/04/16 17:37 06/04/16 17:50 Zofran 4 Mg/2 Ml Vial IV 06/04/16 17:38 4 mg STAT ONE Administration Ondansetron HCl Confirm 06/04/16 17:46 Zofran 4 Mg/2 Ml Vial Administered 06/04/16 17:47 Dose 4 mg .ROUTE .STK-MED ONE Intake & Output (Last 24 hours) 06/04/16 06/05/16 06/06/16 06/07/16 11:59 11:59 11:59 11:59 Intake Total 2660 6116 Output Total 1925 Balance 735 6116 Weight 62.913 kg Laboratory Results (Last 24 hours) 06/06/16 06/06/16 06/05/16 05:35 05:35 15:02 WBC 11.9 H RBC 3.71 L Hgb 11.0 L Hct 34.0 L MCV 91.6 MCH 29.6 MCHC 32.4 RDW 14.8 H Plt Count 204 MPV 8.7 Sodium 144 142 Potassium 3.5 3.8 Chloride 110 H 106 Carbon Dioxide 26.0 23.6 Anion Gap 11.0 16.1 H BUN 11 19 Creatinine 0.85 1.08 Estimated GFR > 60 56 Glucose 117 H 164 H Calcium 8.3 L 8.4 L Magnesium 1.3 L Total Bilirubin 0.3 0.4 AST 18 15 ALT 18 21 Alkaline Phosphatase 79 89 Serum Total Protein 5.5 L 6.0 L Albumin 2.5 L 2.8 L 06/05/16 15:02 WBC 16.2 H RBC 3.82 L Hgb 11.4 L Hct 34.6 L MCV 90.6 MCH 29.8 MCHC 32.9 RDW 14.5 H Plt Count 254 MPV 8.9 Sodium Potassium Chloride Carbon Dioxide Anion Gap BUN Creatinine Estimated GFR Glucose Calcium Magnesium Total Bilirubin AST ALT Alkaline Phosphatase Serum Total Protein Albumin Orders (Last 24 hours) Category Date Time Status Miscellaneous Nursing Order ROUTINE Care 06/06/16 08:22 Active 2000 Calorie ADA Diet 06/06/16 Lunch Active CBC Routine Lab 06/05/16 15:02 Completed CBC Routine Lab 06/06/16 05:35 Completed CMP Routine Lab 06/05/16 15:02 Completed CMP Routine Lab 06/06/16 05:35 Completed MAG [MAGNESIUM] Routine Lab 06/06/16 05:35 Completed NaCl 0.9% 250 ml [Sodium Chloride 0.9% 250 ML] 250 ml Med 06/06/16 08:30 Active Potassium Cl 40 Meq/20 ml Vial [Potassium Chloride 40 MEQ/20 ML VIAL] 40 meq Magnesium Sulfate 1 gm/2 ml [Magnesium Sulfate 1 GM/ 2 ML VIAL] 2 gm IV 68 mls/hr Vitamin B Comp W-C [Vidya-Bee with C] Med 06/06/16 10:00 Active 1 tab PO DAILY Vitamin E 400 Units [Vitamin E 400 UNIT SOFTGEL] Med 06/06/16 10:00 Active 400 u PO DAILY Patient Care Notes (Last 24 hours) 06/06/16 08:31 Nursing Note by Shalini Frank Pt educated on plan of care to meet her request to go home today. Pt is in agreement with plan of care. Pt called her daughter who is going to bring her insulin pump from home. Initialized on 06/06/16 08:31 - END OF NOTE 06/05/16 16:12 Nursing Note by Erika Greenberg dr. updated via phone of lab results and pt condition. new orders for labs in am noted. Initialized on 06/05/16 16:12 - END OF NOTE - Vitals & Intake/Output Vital Signs: Vital Signs Temperature 97.9 F 06/06/16 11:40 Pulse Rate 68 06/06/16 11:40 Respiratory Rate 18 06/06/16 11:40 Blood Pressure 143/93 06/06/16 11:40 O2 Sat by Pulse Oximetry 96 06/06/16 11:40 Intake & Output: Intake & Output 06/04/16 06/05/16 06/06/16 06/07/16 11:59 11:59 11:59 11:59 Intake Total 2660 6116 Output Total 1925 Balance 735 6116 Weight 62.913 kg - Lab Result Diagrams: 06/06/16 05:35 06/06/16 05:35 Lab Results-Last 24 Hrs: Accuchecks Date 06/06/16 Date 06/06/16 Date 06/06/16 Date 06/06/16 Date 06/05/16 Date 06/05/16 Date 06/05/16 Date 06/05/16 Time 11:30 Time 07:50 Time 05:35 Time 02:37 Time 23:30 Time 20:36 Time 16:56 Time 13:45 Accucheck Value: 113 Accucheck Value: 96 Accucheck Value: 136 Accucheck Value: 161 Accucheck Value: 165 Accucheck Value: 167 Accucheck Value: 154 Lab Results-Last 24 Hours 06/05/16 06/05/16 06/06/16 Range/Units 15:02 15:02 05:35 WBC 16.2 H 11.9 H (4.0-10.5) K/mm3 RBC 3.82 L 3.71 L (4.1-5.4) M/mm3 Hgb 11.4 L 11.0 L (12.0-16.0) gm/dl Hct 34.6 L 34.0 L (35-47) % MCV 90.6 91.6 (78-100) fl MCH 29.8 29.6 (26-32) pg MCHC 32.9 32.4 (32-36) g/dl RDW 14.5 H 14.8 H (11.5-14.0) % Plt Count 254 204 (150-450) K/mm3 MPV 8.9 8.7 (6-9.5) fl Sodium 142 (136-145) mEq/L Potassium 3.8 (3.5-5.1) mEq/L Chloride 106 (98-107) mEq/L Carbon Dioxide 23.6 (21-32) mEq/L Anion Gap 16.1 H (5-15) MEQ/L BUN 19 (9-20) mg/dL Creatinine 1.08 (0.55-1.30) mg/dl Estimated GFR 56 ML/MIN Glucose 164 H (70-110) MG/DL Calcium 8.4 L (8.5-10.1) mg/dL Magnesium (1.8-2.4) mg/dL Total Bilirubin 0.4 (0.2-1.0) mg/dL AST 15 (15-37) U/L ALT 21 (12-78) U/L Alkaline Phosphatase 89 (46-116) U/L Serum Total Protein 6.0 L (6.4-8.2) gm/dL Albumin 2.8 L (3.4-5.0) g/dL 06/06/16 Range/Units 05:35 WBC (4.0-10.5) K/mm3 RBC (4.1-5.4) M/mm3 Hgb (12.0-16.0) gm/dl Hct (35-47) % MCV (78-100) fl MCH (26-32) pg MCHC (32-36) g/dl RDW (11.5-14.0) % Plt Count (150-450) K/mm3 MPV (6-9.5) fl Sodium 144 (136-145) mEq/L Potassium 3.5 (3.5-5.1) mEq/L Chloride 110 H (98-107) mEq/L Carbon Dioxide 26.0 (21-32) mEq/L Anion Gap 11.0 (5-15) MEQ/L BUN 11 (9-20) mg/dL Creatinine 0.85 (0.55-1.30) mg/dl Estimated GFR > 60 ML/MIN Glucose 117 H (70-110) MG/DL Calcium 8.3 L (8.5-10.1) mg/dL Magnesium 1.3 L (1.8-2.4) mg/dL Total Bilirubin 0.3 (0.2-1.0) mg/dL AST 18 (15-37) U/L ALT 18 (12-78) U/L Alkaline Phosphatase 79 (46-116) U/L Serum Total Protein 5.5 L (6.4-8.2) gm/dL Albumin 2.5 L (3.4-5.0) g/dL Micro Results-Entire Visit: Accuchecks Date 06/06/16 Date 06/06/16 Date 06/06/16 Date 06/06/16 Date 06/05/16 Date 06/05/16 Date 06/05/16 Date 06/05/16 Time 11:30 Time 07:50 Time 05:35 Time 02:37 Time 23:30 Time 20:36 Time 16:56 Time 13:45 Accucheck Value: 113 Accucheck Value: 96 Accucheck Value: 136 Accucheck Value: 161 Accucheck Value: 165 Accucheck Value: 167 Accucheck Value: 154 Discharge Exam General Appearance: no apparent distress (O), alert Neurologic Exam: alert, oriented x 3, cooperative, normal mood/affect, nml cerebellar function, sensation nml, No motor deficits Skin Exam: normal color, warm, dry Eye Exam: PERRL, EOMI, eyes nml inspection Ears, Nose, Throat Exam: normal ENT inspection, pharynx normal, moist mucous membranes Neck Exam: normal inspection, non-tender, supple, full range of motion Respiratory Exam: normal breath sounds, lungs clear, No respiratory distress Cardiovascular Exam: regular rate/rhythm, normal heart sounds Gastrointestinal/Abdomen Exam: soft, No tenderness, No mass Extremity Exam: normal inspection, normal range of motion Back Exam: normal inspection, normal range of motion, No CVA tenderness, No vertebral tenderness Pelvic Exam: deferred Rectal Exam: deferred Final Diagnosis/Problem List - Final Discharge Diagnosis/Problem (1) DKA (diabetic ketoacidoses) Current Visit: Yes Status: Resolved (2) Diabetes mellitus, insulin dependent (IDDM), uncontrolled Current Visit: No Status: Chronic (3) Type 1 diabetes mellitus Current Visit: No Status: Chronic - Discharge Discharge Date: 06/06/16 Disposition: Home, Self-Care Condition: Stable Prescriptions: No Action Alprazolam 1 mg [Xanax 1 mg] 1 mg PO TID Vitamin B Complex 1 each PO DAILY Vitamin E 400 Units [Vitamin E 400 UNIT SOFTGEL] 400 unit PO DAILY Promethazine HCl 25 mg [Phenergan 25 mg] 25 mg PO Q4HPRN PRN PRN Reason: Nausea Follow up with: LYUDMILA ARIAS MD [Primary Care Provider] - 1 Week
== END 2016-06-06 12:50 | disposition home or self-care (01) | DRG 639 ==
LOC: ED 17:09 → ICU 20:45
PROVIDERS: ADMIT Internal Medicine; ATTEND Internal Medicine
DX: E10.10 Type 1 diabetes mellitus with ketoacidosis without coma (principal); Z79.4 Long term (current) use of insulin; E13.10 Other specified diabetes mellitus with ketoacidosis without coma; E10.65 Type 1 diabetes mellitus with hyperglycemia; K21.9 Gastro-esophageal reflux disease without esophagitis; I25.10 Atherosclerotic heart disease of native coronary artery without angina pectoris; F41.8 Other specified anxiety disorders; Z72.0 Tobacco use; Z79.899 Other long term (current) drug therapy
CPT/HCPCS: 36415; 36600; 80048; 80053; 80320; 81000; 82375; 82803; 82947; 82962; 83036; 83605; 83735; 83986; 85025; 85027; 93041; 96360; 96361; 96365; 96372; 96374; 99284; 99285; J1815; J2405; J2550; J3475; J3480

== ENCOUNTER 2016-06-25 14:22 | Inpatient (IN) | payer OTHER ==
--- NOTE | 2016-06-25 14:57 | ERPHSYRPT ---
- History of Present Illness Time Seen by Provider: 06/25/16 14:51 Source: patient Exam Limitations: no limitations Patient Subjective Stated Complaint: abd pain since this am. states sugars are running 500+. vomited this am. no diarrhea. dry oral membranes. c/o abd 'on fire' Triage Nursing Assessment: abd soft. c/o tenderness to mid abd. skin warm and dry. answers questions. insulin pump intact Physician History: Patient is a 55-year-old female with her complaining of vomiting and abdominal pain that began earlier today. She wasn't feeling well earlier in the week at which time she was complaining of a sore throat. She saw her primary care doctor and received a Rocephin injection. She is a type I diabetic with an insulin pump and her blood sugars have been running in the 500s today. Her gave her an additional 4 units of insulin with minimal response. She's had a cough. She smokes. Her past medical history significant for diabetes type 1, COPD, depression, back pain, and renal failure. She has had an episode of DKA in the past. Past medical surgeries include cystectomy and back surgery. Timing/Duration: today Severity: severe Modifying Factors: Improves With: eating Associated Symptoms: nausea, vomiting, cough Allergies/Adverse Reactions: codeine Allergy (Verified 06/25/16 14:35) orphenadrine citrate [From Norflex] Allergy (Verified 06/25/16 14:35) hydrocodone bitartrate [From [place]] Adverse Reaction (Verified 06/25/16 14:35) levofloxacin [From Levaquin] Adverse Reaction (Verified 06/25/16 14:35) Nausea and Vomiting Home Medications: Alprazolam 1 mg [Xanax 1 mg] 1 mg PO TID 09/28/14 [History] Vitamin B Complex 1 each PO DAILY 09/22/15 [History] Vitamin E 400 Units [Vitamin E 400 UNIT SOFTGEL] 400 unit PO DAILY [History] Promethazine HCl 25 mg [Phenergan 25 mg] 25 mg PO Q4HPRN PRN 10/14/15 [ History] Hx Tetanus, Diphtheria Vaccination/Date Given: Yes Hx Influenza Vaccination/Date Given: Yes Hx Pneumococcal Vaccination/Date Given: Yes Immunizations Up to Date: Yes - Review of Systems Constitutional: Weakness Eyes: No Symptoms Ears, Nose, & Throat: Throat Pain Respiratory: Cough Cardiac: No Chest Pain, No Edema, No Syncope Abdominal/Gastrointestinal: Abdominal Pain, Nausea, Vomiting Genitourinary Symptoms: No Dysuria Musculoskeletal: No Back Pain, No Neck Pain Skin: No Rash Neurological: No Dizziness, No Focal Weakness, No Sensory Changes Psychological: No Symptoms Endocrine: No Symptoms Hematologic/Lymphatic: No Symptoms Immunological/Allergic: No Symptoms All Other Systems: Reviewed and Negative - Past Medical History Pertinent Past Medical History: Yes Neurological History: No Pertinent History ENT History: No Pertinent History Cardiac History: Coronary Artery Disease Respiratory History: COPD Endocrine Medical History: Diabetes Type I Musculoskeletal History: Degenerative Disk Disease, Other GI Medical History: GERD History: No Pertinent History Psycho-Social History: Anxiety, Depression Female Reproductive Disorders: No Pertinent History Other Medical History: HAS INSULIN PUMP. cardiac STENT PLACEMENT X 2, back problem - Past Surgical History Past Surgical History: Yes Neuro Surgical History: No Pertinent History Cardiac: Cardiac Catheterization, Cardiac Stent Respiratory: No Pertinent History Gastrointestinal: Cholecystectomy Genitourinary: No Pertinent History Musculoskeletal: Other Female Surgical History: Tubal Ligation Other Surgical History: BUNONECTOMY. BACK SURGERY X2 - Social History Smoking Status: Current every day smoker How long have you smoked: 20 + years Exposure to second hand smoke: Yes Alcohol Use: None Drug Use: none Patient Lives Alone: No Significant Family History: heart disease, diabetes, hypertension - Female History Hx Now: No - Nursing Vital Signs Nursing Vital Signs: Initial Vital Signs Temperature 97.1 F Temperature Source Oral Pulse Rate 100 Respiratory Rate 20 Blood Pressure [] 95/48 Pain Intensity 10 - Physical Exam General Appearance: moderate distress Eye Exam: PERRL/EOMI, eyes nml inspection Ears, Nose, Throat Exam: dry mucous membranes, pharyngeal erythema Neck Exam: normal inspection, non-tender, supple, full range of motion Respiratory Exam: normal breath sounds, lungs clear, No respiratory distress Cardiovascular Exam: tachycardia Gastrointestinal/Abdomen Exam: tenderness Pelvic Exam: not done Rectal Exam: not done Back Exam: normal inspection, normal range of motion, No CVA tenderness, No vertebral tenderness Extremity Exam: normal inspection, normal range of motion, pelvis stable Neurologic Exam: alert, oriented x 3, cooperative, normal mood/affect, nml cerebellar function, nml station & gait, sensation nml, No motor deficits Skin Exam: normal color, warm, dry, No rash Lymphatic Exam: No adenopathy SpO2 Interpretation: normal SpO2: 96 Oxygen Delivery: Room Air - Radiology Exams Chest X-ray Interpretation: Interpreted by me, Negative (COPD, no change comp cxr 09/18) Ordered Tests: Active Orders 24 hr Category Date Time Status ACCUCHECK [Accucheck] STAT Care 06/25/16 14:37 Active ACCUCHECK [Accucheck] STAT Care 06/25/16 16:26 Active Cath [Catheter-[place]] STAT Care 06/25/16 15:58 Active IV Insertion STAT Care 06/25/16 15:04 Active IV Insertion-2nd Peripheral STAT Care 06/25/16 15:01 Active CHEST 2 VIEWS (PA AND LAT) Stat Exams 06/25/16 15:01 Taken ARTERIAL BLOOD GASES Urgent Lab 06/25/16 15:01 Completed CBC W DIFF Stat Lab 06/25/16 15:10 Completed CMP Stat Lab 06/25/16 15:10 Completed CULTURE, THROAT Stat Lab 06/25/16 15:27 Received Ethyl Alcohol,Urine Stat Lab 06/25/16 15:43 Completed Lactic Acid Urgent Lab 06/25/16 15:01 Completed STREP SCREEN-BETA A Stat Lab 06/25/16 15:27 Completed UA Stat Lab 06/25/16 15:43 Completed Medication Summary Generic Name Dose Route Start Last Admin Trade Name Freq PRN Reason Stop Dose Admin Sodium Chloride 1,000 mls @ 999 mls/hr 06/25/16 15:44 06/25/16 15:47 Sodium Chloride 0.9% 1000 Ml IV 06/25/16 16:44 999 mls/hr .Q1H1M STA Administration Discontinued Medications Generic Name Dose Route Start Last Admin Trade Name Freq PRN Reason Stop Dose Admin Sodium Chloride 1,000 mls @ 999 mls/hr 06/25/16 15:01 06/25/16 15:12 Sodium Chloride 0.9% 1000 Ml IV 06/25/16 16:01 999 mls/hr .Q1H1M STA Administration Sodium Chloride Confirm 06/25/16 15:10 Sodium Chloride 0.9% 1000 Ml Administered 06/25/16 15:11 Dose 1,000 mls @ ud .ROUTE .STK-MED ONE Sodium Chloride Confirm 06/25/16 15:45 Sodium Chloride 0.9% 1000 Ml Administered 06/25/16 15:46 Dose 1,000 mls @ ud .ROUTE .STK-MED ONE Insulin Human Regular 10 unit 06/25/16 15:01 06/25/16 15:12 Novolin R SQ 06/25/16 15:02 10 unit STAT ONE Administration Insulin Human Regular Confirm 06/25/16 15:09 Novolin R Administered 06/25/16 15:10 Dose 10 unit .ROUTE .STK-MED ONE Promethazine HCl 12.5 mg 06/25/16 15:01 06/25/16 15:12 Phenergan 25 Mg Inj IV 06/25/16 15:02 12.5 mg STAT ONE Administration Promethazine HCl Confirm 06/25/16 15:09 Phenergan 25 Mg Inj Administered 06/25/16 15:10 Dose 25 mg .ROUTE .STK-MED ONE Lab/Rad Data: Laboratory Result Diagrams 06/25/16 15:10 06/25/16 15:10 Laboratory Results 06/25/16 06/25/16 06/25/16 Range/Units 15:43 15:43 15:27 WBC (4.0-10.5) K/mm3 RBC (4.1-5.4) M/mm3 Hgb (12.0-16.0) gm/dl Hct (35-47) % MCV (78-100) fl MCH (26-32) pg MCHC (32-36) g/dl RDW (11.5-14.0) % Plt Count (150-450) K/mm3 MPV (6-9.5) fl Gran % (36.0-66.0) % Lymphocytes % (24.0-44.0) % Monocytes % (0.0-12.0) % Eosinophils % (0.00-5.0) % Basophils % (0.0-0.4) % Basophils # (0-0.4) Puncture Site pCO2 (35-45) mmHg pO2 (75-100) mmHg Base Excess (-2.0-2.0) O2 Saturation (94-100) g/dF ABG pH (7.35-7.45) ABG HCO3 (22-28) ABG O2 Sat (Measured) (95-100) % Luis Test A-a Gradient a/A Ratio Hemoglobin Carboxyhemoglobin (0.0-6.9) % THgb Methemoglobin (1.4-1.5) % Potassium (3.5-5.1) Temperature C POC O2 Flow Rate % Sodium (136-145) mEq/L Chloride (98-107) mEq/L Carbon Dioxide (21-32) mEq/L Anion Gap (5-15) MEQ/L BUN (9-20) mg/dL Creatinine (0.55-1.30) mg/dl Estimated GFR ML/MIN Glucose (70-110) MG/DL Lactic Acid (0.4-2.0) Calcium (8.5-10.1) mg/dL Total Bilirubin (0.2-1.0) mg/dL AST (15-37) U/L ALT (12-78) U/L Alkaline Phosphatase (46-116) U/L Serum Total Protein (6.4-8.2) gm/dL Albumin (3.4-5.0) g/dL Ur Collection Type CATH Urine Color YELLOW (YELLOW) Urine Appearance HAZY (CLEAR) Urine pH 6.0 6.0 (5-6) Ur Specific [place] 1.020 (1.005-1.025) Urine Protein TRACE (Negative) Urine Glucose (UA) 500 (NEGATIVE) mg/dL Urine Ketones >=160 (NEGATIVE) Urine Nitrite NEGATIVE (NEGATIVE) Urine Bilirubin SMALL (NEGATIVE) Urine Urobilinogen 0.2 (0-1) mg/dL Urine WBC (Auto) NEGATIVE (NEGATIVE) Urine RBC (Auto) TRACE-LYSED (0-5) Tato/ul Urine Ethyl Alcohol 0 (0.00-20) mg/dl Streptococcus Screen NEGATIVE (Negative) Specimen Received 06/25/16 1558 06/25/16 06/25/16 06/25/16 Range/Units 15:10 15:10 15:01 WBC 10.1 (4.0-10.5) K/mm3 RBC 4.76 (4.1-5.4) M/mm3 Hgb 14.1 (12.0-16.0) gm/dl Hct 43.3 (35-47) % MCV 91.0 (78-100) fl MCH 29.6 (26-32) pg MCHC 32.6 (32-36) g/dl RDW 14.1 H (11.5-14.0) % Plt Count 382 (150-450) K/mm3 MPV 9.7 H (6-9.5) fl Gran % 63.9 (36.0-66.0) % Lymphocytes % 23.8 L (24.0-44.0) % Monocytes % 8.7 (0.0-12.0) % Eosinophils % 2.7 (0.00-5.0) % Basophils % 0.9 (0.0-0.4) % Basophils # 0.09 (0-0.4) Puncture Site RIGHT BRACHIAL pCO2 33 L (35-45) mmHg pO2 71 L (75-100) mmHg Base Excess -8.6 L (-2.0-2.0) O2 Saturation 91.0 L (94-100) g/dF ABG pH 7.31 L (7.35-7.45) ABG HCO3 16.6 L* (22-28) ABG O2 Sat (Measured) 96.4 (95-100) % Luis Test NOT APPLICABLE A-a Gradient 37 a/A Ratio 0.66 Hemoglobin 13.1 Carboxyhemoglobin 4.6 (0.0-6.9) % THgb Methemoglobin 0.9 L (1.4-1.5) % Potassium 5.4 H 6.6 H* (3.5-5.1) Temperature 37.0 C POC O2 Flow Rate 21 % Sodium 135 L (136-145) mEq/L Chloride 95 L (98-107) mEq/L Carbon Dioxide 20.5 L (21-32) mEq/L Anion Gap 24.7 H (5-15) MEQ/L BUN 23 H (9-20) mg/dL Creatinine 1.47 H (0.55-1.30) mg/dl Estimated GFR 39 ML/MIN Glucose 503 H* (70-110) MG/DL Lactic Acid 2.1 H (0.4-2.0) Calcium 10.1 (8.5-10.1) mg/dL Total Bilirubin 0.4 (0.2-1.0) mg/dL AST 71 H (15-37) U/L ALT 223 H (12-78) U/L Alkaline Phosphatase 350 H (46-116) U/L Serum Total Protein 7.2 (6.4-8.2) gm/dL Albumin 2.9 L (3.4-5.0) g/dL Ur Collection Type Urine Color (YELLOW) Urine Appearance (CLEAR) Urine pH (5-6) Ur Specific [place] (1.005-1.025) Urine Protein (Negative) Urine Glucose (UA) (NEGATIVE) mg/dL Urine Ketones (NEGATIVE) Urine Nitrite (NEGATIVE) Urine Bilirubin (NEGATIVE) Urine Urobilinogen (0-1) mg/dL Urine WBC (Auto) (NEGATIVE) Urine RBC (Auto) (0-5) Tato/ul Urine Ethyl Alcohol (0.00-20) mg/dl Streptococcus Screen (Negative) Specimen Received - Progress Progress: improved Discussed with : Other (Admit ICU Dr Licona) Will see patient in: hospital (full admit) Counseled pt/family regarding: lab results, diagnosis, rad results - Departure Time of Disposition: 16:40 Departure Disposition: In-patient Admission (per Dr Licona) Clinical Impression: DKA (diabetic ketoacidoses) Condition: Good Critical Care Time: Yes Critical Care Time(excluding separately billable procedures): 30-74 minutes
[2016-06-25] MEDS ORDERED: NovoLIN R SQ ONE (15:01)
[2016-06-25] MEDS ORDERED: Phenergan 25 MG INJ IV ONE (15:01)
[2016-06-25] MEDS ORDERED: Sodium Chloride 0.9% 1000 ML 1,000 ML IV STA ×2 (15:01→15:44)
[2016-06-25] MEDS ORDERED: Phenergan 25 MG INJ ONE (15:09)
[2016-06-25] MEDS ORDERED: NovoLIN R ONE ×2 (15:09→17:18)
[2016-06-25] MEDS ORDERED: Sodium Chloride 0.9% 1000 ML 1,000 ML ONE ×2 (15:10→15:45)
[2016-06-25 15:16] LABS: BASOPHIL % 0.9 % (0.0-0.4); Eosinophil % 2.7 % (0.00-5.0); Granulocytes % 63.9 % (36.0-66.0); Lymphocytes % 23.8 % (24.0-44.0); Mean Corpuscular Hemoglobin 29.6 pg (26-32); Mean Platelet Volume 9.7 fl (6-9.5); Monocytes % 8.7 % (0.0-12.0); Platelet Count 382 K/mm3 (150-450); Red Blood Count 4.76 M/mm3 (4.1-5.4); Red Cell Distribution Width 14.1 % (11.5-14.0); White Blood Count 10.1 K/mm3 (4.0-10.5)
[2016-06-25 15:33] LABS: ALBUMIN 2.9 g/dL (3.4-5.0); ANION GAP 24.7 MEQ/L (5-15); BILIRUBIN,TOTAL 0.4 mg/dL (0.2-1.0); Carbon Dioxide 20.5 mEq/L (21-32); Potassium 5.4 mEq/L (3.5-5.1); Total Protein 7.2 gm/dL (6.4-8.2)
[2016-06-25 15:37] LABS: A-aADO2 37; ARTERIAL BLD GAS O2 SATURATION 96.4 % (95-100); ARTERIAL BLOOD GAS BASE EXCESS -8.6 (-2.0-2.0); ARTERIAL BLOOD GAS FIO2 21 %; ARTERIAL BLOOD GAS PO2 71 mmHg (75-100); ARTERIAL BLOOD GAS pH 7.31 (7.35-7.45); Lactic Acid 2.1 (0.4-2.0)
[2016-06-25 15:59] LABS: Collection Type CATH
[2016-06-25 16:00] LABS: COMPLETE URINE MICROSCOPIC? NO
[2016-06-25] MEDS ORDERED: Sodium Chloride 0.9% 1000 ML 1,000 ML IV SCH (17:11)
[2016-06-25] MEDS ORDERED: Sodium Chloride 0.9% 100 ML IVPB 100 ML IV ONE (17:19)
[2016-06-25] MEDS ORDERED: NOVOLIN R INSULIN (FOR DRIPS)** 100 UNITS in Sodium Chloride 0.9% 100 ML IVPB 100 ML IV PRN (17:43)
--- NOTE | 2016-06-25 19:47 | XRAY ---
Indication: Cough and weakness. Comparison: October 15, 2015. AP/lateral chest again hyperinflated and clear. Heart and mediastinal structures stable and within normal limits. Bony thorax intact. Impression: Stable nonacute hyperinflated chest.
[2016-06-25 20:18] LABS: ANION GAP 15.4 MEQ/L (5-15); Carbon Dioxide 24.9 mEq/L (21-32)
[2016-06-25 20:22] LABS: MAGNESIUM 1.9 mg/dL (1.8-2.4); PHOSPHOROUS 2.7 mg/dL (2.6-4.7)
[2016-06-25] MEDS ORDERED: POTASSIUM CHLORIDE 20 mEq IN WATER 100ML 100 ML IV SCH (21:00)
[2016-06-25] MEDS: D5W/0.45NS W/ 20mEq KCl 1000 ML 1,000 ML IV SCH (21:08)
[2016-06-25] MEDS: POTASSIUM CHLORIDE 20 mEq IN WATER 100ML 100 ML IV PRN ×2 (21:09→22:50)
[2016-06-26 00:38] LABS: ANION GAP 14.1 MEQ/L (5-15); BLOOD UREA NITROGEN 18 mg/dL (9-20); CHLORIDE 105 mEq/L (98-107); Carbon Dioxide 24.9 mEq/L (21-32); Glucose 145 MG/DL (70-110); Potassium 5.2 mEq/L (3.5-5.1); SODIUM 139 mEq/L (136-145)
[2016-06-26] MEDS ORDERED: NovoLOG Insulin SQ PRN (01:22)
[2016-06-26] MEDS: D5W/0.45NS W/ 20mEq KCl 1000 ML 1,000 ML IV SCH (03:40)
[2016-06-26 05:12] LABS: BASOPHIL % 0.4 % (0.0-0.4); Eosinophil % 4.7 % (0.00-5.0); Granulocytes % 72.5 % (36.0-66.0); Lymphocytes % 15.6 % (24.0-44.0); Mean Corpuscular Hemoglobin 29.8 pg (26-32); Mean Platelet Volume 9.1 fl (6-9.5); Monocytes % 6.8 % (0.0-12.0); Platelet Count 360 K/mm3 (150-450); Red Cell Distribution Width 14.1 % (11.5-14.0); White Blood Count 12.4 K/mm3 (4.0-10.5)
[2016-06-26 05:37] LABS: ANION GAP 18.5 MEQ/L (5-15); Carbon Dioxide 22.1 mEq/L (21-32); Potassium 5.7 mEq/L (3.5-5.1)
[2016-06-26] MEDS ORDERED: TYLENOL 325 MG PO PRN (06:50)
[2016-06-26 09:43] LABS: ANION GAP 13.9 MEQ/L (5-15); BLOOD UREA NITROGEN 13 mg/dL (9-20); CHLORIDE 105 mEq/L (98-107); Carbon Dioxide 26.9 mEq/L (21-32); Glucose 138 MG/DL (70-110); SODIUM 141 mEq/L (136-145)
[2016-06-26] MEDS ORDERED: PHENERGAN 25 MG PO PRN (10:45)
[2016-06-26] MEDS ORDERED: PATIENT OWN MEDICATION IJ PRN (10:48)
[2016-06-26] MEDS ORDERED: VITA-BEE WITH C PO SCH (11:00)
[2016-06-26] MEDS ORDERED: Vitamin E 400 UNIT SOFTGEL PO SCH (11:00)
[2016-06-26] MEDS ORDERED: NovoLOG Insulin SQ SCH (12:00)
[2016-06-26] MEDS ORDERED: XANAX 1 MG PO ONE (12:30)
[2016-06-26 13:33] LABS: ANION GAP 20.6 MEQ/L (5-15); Potassium 5.9 mEq/L (3.5-5.1)
[2016-06-26 14:06] VITALS: O2SAT 96
[2016-06-26] MEDS ORDERED: XANAX 1 MG PO SCH (15:00)
[2016-06-26 15:51] VITALS: BP 136/74; PULSE 85
--- NOTE | 2016-06-27 08:00 | HP ---
HISTORY: Julianne Nowak is a pleasant 55 year-old individual who has insulin dependent diabetes and has had insulin pump for more than six or seven years. She presented to the emergency room with vomiting, feeling poorly and uncontrolled blood sugars in the range of more than 500. The patient apparently had recently had respiratory infection for which she received IM Rocephin. However, the patient still continued to feel poorly. She presented with nausea, vomiting and elevated blood sugar along with some component of acidosis and hence forth she was hospitalized to ICU at [facility] for management. PAST MEDICAL HISTORY: Type 1 diabetes with insulin pump. The patient also has coronary artery disease with coronary stenting done in the last year. The patient does have issues with the back and some depression, degenerative disc disease. Denies any other major medical problem. PAST SURGICAL HISTORY: Back surgery x2. Bunionectomy. ALLERGIES: CODEINE, HYDROCODONE, LEVAQUIN. SOCIAL HISTORY: Denies drug abuse or alcohol use. FAMILY HISTORY: Noncontributory. PHYSICAL EXAMINATION: The patient appears reasonably comfortable at this time. She was treated last night for diabetic ketoacidosis. VITAL SIGNS: Blood pressure in the range of 96/70, pulse 88, respiratory rate 16. HEENT: Pupils reactive. NECK: No JVD. No lymphadenopathy. CHEST: Good air entry bilaterally. HEART: S1 and S2 normal. ABDOMEN: Soft, nontender, bowel sounds present. EXTREMITIES: No edema. Pedal pulses present. NEURO: Alert, awake with no focal deficit. LAB DATA AND TESTS: With cath showed glucose about 500+, negative nitrates, white blood cells negative. CBC showed a white blood cell count 10.1, hemoglobin 14. The patient also had ABG done which showed pCO2 33, pO2 77, pH 7.31 with bicarb 16. Electrolytes - Sodium 135, potassium 90, chloride 95, CO2 of 20.5 with anion gap 24.7 with BUN 23, creatinine 1.4, glucose 503, lactase 2.1. ASSESSMENT AND PLAN: Diabetic ketoacidosis. The patient does have an insulin pump however could not control her blood sugars probably triggered by some respiratory infection or throat infection. No evidence of urinary tract infection. No other clinical evidence of any other infection so will treat with the patient's insulin pump, IV fluids and manage accordingly. The patient was treated for that and has done better. The patient's anion gap has decreased, bicarb seems to have stabilized. The patient is clinically improved. In lieu of her stable condition the patient was advised after correction of diabetic ketoacidosis to be sent home on the patient's own insulin pump. Coronary artery disease is stable. The patient is to continue aspirin and follow up with rail bonder for the condition. The patient is to follow up with her primary doctor after discharge regarding her insulin management with Dr. Clayton or any other issues or any evidence of any recurrent infection or respiratory symptoms.
[2016-06-27] MEDS ORDERED: NON-FORMULARY ITEM (Vitamin B Complex [Vitamin B Complex] 1 EACH) PO SCH (10:00)
== END 2016-06-26 15:50 | disposition home or self-care (01) | DRG 639 ==
LOC: ED 14:22 → ICU 17:05
PROVIDERS: ADMIT Internal Medicine; ATTEND General Practice
DX: E10.10 Type 1 diabetes mellitus with ketoacidosis without coma (principal); I25.10 Atherosclerotic heart disease of native coronary artery without angina pectoris; Z95.5 Presence of coronary angioplasty implant and graft
CPT/HCPCS: 36000; 36415; 36600; 51702; 71020; 80048; 80053; 80320; 81002; 82375; 82803; 82962; 83605; 83735; 83986; 84100; 85025; 87070; 87086; 87430; 96360; 96361; 96372; 96374; 99285; J2550; J3480

== ENCOUNTER 2016-07-20 02:37 | Inpatient (IN) | payer OTHER ==
[2016-07-20] MEDS ORDERED: Sodium Chloride 0.9% 1000 ML 1,000 ML IV STA ×2 (02:54→02:58)
[2016-07-20] MEDS ORDERED: Phenergan 25 MG INJ IV ONE (02:54)
--- NOTE | 2016-07-20 02:57 | ERPHSYRPT ---
- History of Present Illness Time Seen by Provider: 07/20/16 02:51 Source: patient Exam Limitations: no limitations Patient Subjective Stated Complaint: PT STATES HER BLOOD SUGAR IS HIGH, SHE CHECKED IT AROUND 0220 AND HER METER READ 600. PT COMPLAINS OF VOMITING X 3 EPISODES. 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 Triage Nursing Assessment: PT IS AOX3, ABLE TO ANSWER ALL QUESTIONS, TRANSFERED TO TRT AREA PER WC, SKIN IS PWD, RESPS ARE SHALLOW, PT IS SOA WITHOUT EXERTION. PT ABD SOFT AND NON TENDER. Physician History: The patient is a 55-year-old female who has a history of diabetes type 1 and DKA comes in complaining of vomiting 3 times in the last hour with a blood sugar of over 600. She has an insulin pump. Her past medical history is also significant for COPD, depression, DKA, renal failure, and diabetes type 1. Timing/Duration: hour(s) (1) Severity: severe Modifying Factors: Improves With: nothing Associated Symptoms: nausea, vomiting Allergies/Adverse Reactions: orphenadrine citrate [From Norflex] Allergy (Intermediate, Verified 07/20/16 02: 50) severe vomiting codeine Allergy (Verified 07/20/16 02:50) itching nausea and vomiting hydrocodone bitartrate [From [place]] Adverse Reaction (Mild, Verified 07/20/16 02 :50) nausea vomiting levofloxacin [From Levaquin] Adverse Reaction (Mild, Verified 07/20/16 02:50) Nausea and Vomiting Home Medications: Alprazolam 1 mg [Xanax 1 mg] 1 mg PO TID 09/28/14 [History] Vitamin B Complex 1 each PO DAILY 09/22/15 [History] Vitamin E 400 Units [Vitamin E 400 UNIT SOFTGEL] 400 unit PO DAILY [History] Promethazine HCl 25 mg [Phenergan 25 mg] 25 mg PO Q4HPRN PRN 10/14/15 [ History] Insulin Aspart [NovoLOG Insulin] 0 units SQ TIDWM 06/25/16 [History] Hx Tetanus, Diphtheria Vaccination/Date Given: Yes Hx Influenza Vaccination/Date Given: Yes Hx Pneumococcal Vaccination/Date Given: Yes Immunizations Up to Date: Yes - Review of Systems Constitutional: Weakness Eyes: No Symptoms Ears, Nose, & Throat: No Symptoms Respiratory: No Cough, No Dyspnea Cardiac: No Chest Pain, No Edema, No Syncope Abdominal/Gastrointestinal: Nausea, Vomiting Genitourinary Symptoms: No Dysuria Musculoskeletal: No Back Pain, No Neck Pain Skin: No Rash Neurological: No Dizziness, No Focal Weakness, No Sensory Changes Psychological: No Symptoms Endocrine: No Symptoms Hematologic/Lymphatic: No Symptoms Immunological/Allergic: No Symptoms All Other Systems: Reviewed and Negative - Past Medical History Pertinent Past Medical History: Yes Neurological History: No Pertinent History ENT History: No Pertinent History Cardiac History: Coronary Artery Disease Respiratory History: COPD Endocrine Medical History: Diabetes Type I Musculoskeletal History: Degenerative Disk Disease, Other GI Medical History: GERD History: No Pertinent History Psycho-Social History: Anxiety, Depression Female Reproductive Disorders: No Pertinent History Other Medical History: HAS INSULIN PUMP. cardiac STENT PLACEMENT X 2, back problem - Past Surgical History Past Surgical History: Yes Neuro Surgical History: No Pertinent History Cardiac: Cardiac Catheterization, Cardiac Stent Respiratory: No Pertinent History Gastrointestinal: Cholecystectomy Genitourinary: No Pertinent History Musculoskeletal: Other Female Surgical History: Tubal Ligation Other Surgical History: BUNONECTOMY. BACK SURGERY X2 - Social History Smoking Status: Current every day smoker How long have you smoked: 30 Exposure to second hand smoke: Yes Alcohol Use: None Drug Use: none Patient Lives Alone: No Significant Family History: heart disease, diabetes, hypertension - Female History Hx Now: No - Nursing Vital Signs Nursing Vital Signs: Initial Vital Signs Temperature 98.9 F Temperature Source Oral Pulse Rate 104 Respiratory Rate 24 Blood Pressure [Right Arm] 82/46 Pain Intensity 0 - Physical Exam General Appearance: moderate distress Eye Exam: PERRL/EOMI, eyes nml inspection Ears, Nose, Throat Exam: normal ENT inspection, TMs normal, pharynx normal, moist mucous membranes Neck Exam: normal inspection, non-tender, supple, full range of motion Respiratory Exam: normal breath sounds, lungs clear, No respiratory distress Cardiovascular Exam: tachycardia Gastrointestinal/Abdomen Exam: soft, normal bowel sounds, No tenderness, No mass Pelvic Exam: not done Rectal Exam: not done Back Exam: normal inspection, normal range of motion, No CVA tenderness, No vertebral tenderness Extremity Exam: normal inspection, normal range of motion, pelvis stable Neurologic Exam: alert, oriented x 3, cooperative, normal mood/affect, nml cerebellar function, nml station & gait, sensation nml, No motor deficits Skin Exam: normal color, warm, dry, No rash Lymphatic Exam: No adenopathy SpO2 Interpretation: normal SpO2: 96 Oxygen Delivery: Room Air Ordered Tests: Active Orders 24 hr Category Date Time Status Accucheck STAT Care 07/20/16 02:54 Active EKG-ER Only STAT Care 07/20/16 03:29 Active IV Insertion STAT Care 07/20/16 02:54 Active IV Insertion-2nd Peripheral STAT Care 07/20/16 02:54 Active Pulse Oximetry (ED) STAT Care 07/20/16 02:54 Active cath [Cath for Specimen-Straight] STAT Care 07/20/16 03:39 Active ARTERIAL BLOOD GASES Urgent Lab 07/20/16 03:06 Completed BMP Stat Lab 07/20/16 03:00 Completed CBC W DIFF Stat Lab 07/20/16 03:00 Completed Ethyl Alcohol,Urine Stat Lab 07/20/16 03:20 Completed Lactic Acid Urgent Lab 07/20/16 03:06 Completed Manual Differential NC Stat Lab 07/20/16 03:00 Completed UA W/ MICROSCOPIC Stat Lab 07/20/16 03:20 Completed Medication Summary Generic Name Dose Route Start Last Admin Trade Name Freq PRN Reason Stop Dose Admin Insulin Human Regular 100 101 mls @ 0 mls/hr 07/20/16 03:45 07/20/16 03:45 units/ Sodium Chloride IV 08/19/16 03:44 6 mls/hr .Q0M PRN Administration HYPERGLYCEMIA Protocol Titrate Discontinued Medications Generic Name Dose Route Start Last Admin Trade Name Freq PRN Reason Stop Dose Admin Sodium Chloride 1,000 mls @ 999 mls/hr 07/20/16 02:54 07/20/16 03:09 Sodium Chloride 0.9% 1000 Ml IV 07/20/16 03:54 999 mls/hr .Q1H1M STA Administration Sodium Chloride 1,000 mls @ 999 mls/hr 07/20/16 02:58 07/20/16 03:13 Sodium Chloride 0.9% 1000 Ml IV 07/20/16 03:58 999 mls/hr .Q1H1M STA Administration Sodium Chloride Confirm 07/20/16 03:00 Sodium Chloride 0.9% 1000 Ml Administered 07/20/16 03:01 Dose 1,000 mls @ ud .ROUTE .STK-MED ONE Sodium Chloride Confirm 07/20/16 03:12 Sodium Chloride 0.9% 1000 Ml Administered 07/20/16 03:13 Dose 1,000 mls @ ud .ROUTE .STK-MED ONE Sodium Chloride Confirm 07/20/16 03:30 Sodium Chloride 0.9% 100 Ml Ivpb Administered 07/20/16 03:31 Dose 100 mls @ ud IV .STK-MED ONE Insulin Human Regular 7 unit 07/20/16 03:29 07/20/16 03:31 Novolin R IV 07/20/16 03:30 7 unit STAT ONE Administration Insulin Human Regular 7 unit 07/20/16 03:31 07/20/16 03:32 Novolin R IV 07/20/16 03:32 Not Given STAT ONE Insulin Human Regular Confirm 07/20/16 03:29 Novolin R Administered 07/20/16 03:30 Dose 1 unit .ROUTE .STK-MED ONE Insulin Human Regular Confirm 07/20/16 03:46 Novolin R Administered 07/20/16 03:47 Dose 1 unit .ROUTE .STK-MED ONE Promethazine HCl 25 mg 07/20/16 02:54 07/20/16 03:06 Phenergan 25 Mg Inj IV 07/20/16 02:55 25 mg STAT ONE Administration Promethazine HCl Confirm 07/20/16 03:00 Phenergan 25 Mg Inj Administered 07/20/16 03:01 Dose 25 mg .ROUTE .STK-MED ONE Lab/Rad Data: Laboratory Result Diagrams 07/20/16 03:00 07/20/16 03:00 Laboratory Results 07/20/16 07/20/16 07/20/16 Range/Units 03:20 03:20 03:06 WBC (4.0-10.5) K/mm3 RBC (4.1-5.4) M/mm3 Hgb (12.0-16.0) gm/dl Hct (35-47) % MCV (78-100) fl MCH (26-32) pg MCHC (32-36) g/dl RDW (11.5-14.0) % Plt Count (150-450) K/mm3 MPV (6-9.5) fl Segmented Neutrophils (36.0-66.0) % Lymphocytes (Manual) (24-44) % Monocytes (Manual) (0.0-12.0) % Differential Comment Platelet Estimate (NORMAL) Puncture Site RIGHT BRACHIAL pCO2 26 L (35-45) mmHg pO2 81 (75-100) mmHg Base Excess -12.0 L (-2.0-2.0) O2 Saturation 92.2 L (94-100) g/dF ABG pH 7.30 L (7.35-7.45) ABG HCO3 12.8 L* (22-28) ABG O2 Sat (Measured) 97.1 (95-100) % Luis Test NOT APPLICABLE A-a Gradient 36 a/A Ratio 0.69 Hemoglobin 12.4 Carboxyhemoglobin 3.9 (0.0-6.9) % THgb Methemoglobin 1.0 L (1.4-1.5) % Temperature 37.0 C POC O2 Flow Rate 21 % Sodium (136-145) mEq/L Potassium 5.9 H (3.5-5.1) mEq/L Chloride (98-107) mEq/L Carbon Dioxide (21-32) mEq/L Anion Gap (5-15) MEQ/L BUN (9-20) mg/dL Creatinine (0.55-1.30) mg/dl Estimated GFR ML/MIN Glucose (70-110) MG/DL Lactic Acid 1.9 (0.4-2.0) Calcium (8.5-10.1) mg/dL Ur Collection Type CATH Urine Color YELLOW (YELLOW) Urine Appearance CLEAR (CLEAR) Urine pH 5.0 5.0 (5-6) Ur Specific Harmon 1.010 (1.005-1.025) Urine Protein NEGATIVE (Negative) Urine Glucose (UA) >=1000 (NEGATIVE) mg/dL Urine Ketones MODERATE-40 (NEGATIVE) Urine Nitrite NEGATIVE (NEGATIVE) Urine Bilirubin MODERATE (NEGATIVE) Urine Urobilinogen 0.2 (0-1) mg/dL Urine WBC (Auto) NEGATIVE (NEGATIVE) Urine RBC (Auto) SMALL (0-5) Tato/ul Urine Microscopic RBC 0-2 (0-2) /HPF Ur Epithelial Cells RARE (FEW) /HPF Urine Bacteria RARE (NEGATIVE) /HPF Urine Ethyl Alcohol 3 (0.00-20) mg/dl Specimen Received 07/20/16:0315 07/20/16 07/20/16 Range/Units 03:00 03:00 WBC 17.9 H (4.0-10.5) K/mm3 RBC 4.30 (4.1-5.4) M/mm3 Hgb 12.7 (12.0-16.0) gm/dl Hct 39.4 (35-47) % MCV 91.6 (78-100) fl MCH 29.5 (26-32) pg MCHC 32.2 (32-36) g/dl RDW 14.3 H (11.5-14.0) % Plt Count 297 (150-450) K/mm3 MPV 9.4 (6-9.5) fl Segmented Neutrophils 79 H (36.0-66.0) % Lymphocytes (Manual) 12 L (24-44) % Monocytes (Manual) 9 (0.0-12.0) % Differential Comment NORMAL Platelet Estimate NORMAL (NORMAL) Puncture Site pCO2 (35-45) mmHg pO2 (75-100) mmHg Base Excess (-2.0-2.0) O2 Saturation (94-100) g/dF ABG pH (7.35-7.45) ABG HCO3 (22-28) ABG O2 Sat (Measured) (95-100) % Luis Test A-a Gradient a/A Ratio Hemoglobin Carboxyhemoglobin (0.0-6.9) % THgb Methemoglobin (1.4-1.5) % Temperature C POC O2 Flow Rate % Sodium 129 L (136-145) mEq/L Potassium 5.6 H (3.5-5.1) mEq/L Chloride 92 L (98-107) mEq/L Carbon Dioxide 14.9 L* (21-32) mEq/L Anion Gap 27.4 H (5-15) MEQ/L BUN 29 H (9-20) mg/dL Creatinine 1.91 H (0.55-1.30) mg/dl Estimated GFR 29 ML/MIN Glucose 646 H* (70-110) MG/DL Lactic Acid (0.4-2.0) Calcium 9.4 (8.5-10.1) mg/dL Ur Collection Type Urine Color (YELLOW) Urine Appearance (CLEAR) Urine pH (5-6) Ur Specific Harmon (1.005-1.025) Urine Protein (Negative) Urine Glucose (UA) (NEGATIVE) mg/dL Urine Ketones (NEGATIVE) Urine Nitrite (NEGATIVE) Urine Bilirubin (NEGATIVE) Urine Urobilinogen (0-1) mg/dL Urine WBC (Auto) (NEGATIVE) Urine RBC (Auto) (0-5) Tato/ul Urine Microscopic RBC (0-2) /HPF Ur Epithelial Cells (FEW) /HPF Urine Bacteria (NEGATIVE) /HPF Urine Ethyl Alcohol (0.00-20) mg/dl Specimen Received - Progress Progress: improved Discussed with : Forrest Will see patient in: hospital (full admit) Counseled pt/family regarding: lab results, diagnosis - Departure Time of Disposition: 04:07 Departure Disposition: In-patient Admission Clinical Impression: DKA (diabetic ketoacidoses) Condition: Good Critical Care Time: Yes Critical Care Time(excluding separately billable procedures): 30-74 minutes
[2016-07-20] MEDS ORDERED: Phenergan 25 MG INJ ONE (03:00)
[2016-07-20] MEDS ORDERED: Sodium Chloride 0.9% 1000 ML 1,000 ML ONE ×2 (03:00→03:12)
[2016-07-20 03:10] LABS: Mean Cell Volume 91.6 fl (78-100); Mean Corpuscular Hemoglobin 29.5 pg (26-32); Mean Platelet Volume 9.4 fl (6-9.5); Platelet Count 297 K/mm3 (150-450); Red Cell Distribution Width 14.3 % (11.5-14.0); White Blood Count 17.9 K/mm3 (4.0-10.5)
[2016-07-20 03:13] LABS: A-aADO2 36; ARTERIAL BLD GAS O2 SATURATION 97.1 % (95-100); ARTERIAL BLOOD GAS FIO2 21 %; ARTERIAL BLOOD GAS PO2 81 mmHg (75-100); Lactic Acid 1.9 (0.4-2.0)
[2016-07-20 03:26] LABS: Potassium 5.6 mEq/L (3.5-5.1)
[2016-07-20] MEDS ORDERED: NovoLIN R ONE ×2 (03:29→03:46)
[2016-07-20] MEDS ORDERED: NovoLIN R IV ONE ×2 (03:29→03:31)
[2016-07-20] MEDS ORDERED: Sodium Chloride 0.9% 100 ML IVPB 100 ML IV ONE (03:30)
[2016-07-20 03:32] LABS: Bacteria RARE /HPF (NEGATIVE); COMPLETE URINE MICROSCOPIC? YES; Collection Type CATH; Epithelial Cells RARE /HPF (FEW)
[2016-07-20 03:33] LABS: ANION GAP 27.4 MEQ/L (5-15)
[2016-07-20 03:38] LABS: Carbon Dioxide 14.9 mEq/L (21-32)
[2016-07-20] MEDS: NOVOLIN R INSULIN (FOR DRIPS)** 100 UNITS in Sodium Chloride 0.9% 100 ML IVPB 100 ML IV PRN ×2 (03:45→04:39)
[2016-07-20 03:57] LABS: Platelet Estimate NORMAL (NORMAL); Total Cells Counted 100
[2016-07-20] MEDS ORDERED: Phenergan 25 MG INJ IV PRN (05:08)
[2016-07-20] MEDS: Sodium Chloride 0.9% 1000 ML 1,000 ML IV SCH ×2 (05:44→21:55)
[2016-07-20 08:15] LABS: VBG CARBOXYHEMOGLOBIN 4.5 % T HGB (0.0-6.9); VBG HCO3- 24.8 meq/L (22-28); VBG HEMOGLOBIN 11.7; VBG O2 SATURATION 88.7 (95-100); VBG POTASSIUM 4.2 (3.5-5.1); VBG pH 7.4 (7.32-7.42)
[2016-07-20 08:34] LABS: Mean Cell Volume 89.8 fl (78-100); Mean Platelet Volume 9.2 fl (6-9.5); Platelet Count 298 K/mm3 (150-450); Red Blood Count 4.01 M/mm3 (4.1-5.4); Red Cell Distribution Width 13.8 % (11.5-14.0); White Blood Count 16.1 K/mm3 (4.0-10.5)
[2016-07-20 08:40] LABS: Mean Corpuscular Hemoglobin 29.1 pg (26-32)
[2016-07-20 08:50] LABS: ALBUMIN 2.5 g/dL (3.4-5.0); ANION GAP 12.6 MEQ/L (5-15); BILIRUBIN,TOTAL 0.4 mg/dL (0.2-1.0); Direct Bilirubin 0.1 MG/DL (0.0-0.2); Potassium 4.2 mEq/L (3.5-5.1)
[2016-07-20] MEDS ORDERED: NOVOLIN R INSULIN (FOR DRIPS)** 100 UNITS in Sodium Chloride 0.9% 100 ML IVPB 100 ML IV PRN (10:21)
[2016-07-20 12:41] LABS: Carbon Dioxide 24.9 mEq/L (21-32); Potassium 4.1 mEq/L (3.5-5.1)
[2016-07-20] MEDS ORDERED: NovoLOG Insulin SQ PRN (12:45)
[2016-07-20 18:47] LABS: ALBUMIN 2.5 g/dL (3.4-5.0); ALKALINE PHOSPHATASE 112 U/L (46-116); ANION GAP 19.6 MEQ/L (5-15); BILIRUBIN,TOTAL 0.4 mg/dL (0.2-1.0); BLOOD UREA NITROGEN 18 mg/dL (9-20); CHLORIDE 108 mEq/L (98-107); Carbon Dioxide 19.9 mEq/L (21-32); Direct Bilirubin 0.08 MG/DL (0.0-0.2); Glucose 189 MG/DL (70-110); Potassium 4.3 mEq/L (3.5-5.1); SGOT/AST 12 U/L (15-37); SGPT/ALT 8 U/L (12-78); SODIUM 143 mEq/L (136-145)
--- NOTE | 2016-07-20 20:07 | PCM.HP ---
History of Present Illness - Chief Complaint Chief Complaint: c/o nausea nad vomiting for 1-2 days History of Present Illness: The patient is a 55-year-old female who has a history of diabetes type 1 and DKA comes in complaining of vomiting 3 times in the last hour with a blood sugar of over 600. She has an insulin pump. Her past medical history is also significant for COPD, depression, DKA, renal failure, and diabetes type 1. Timing/Duration: hour(s) (1) Severity: severe Modifying Factors: Improves With: nothing Associated Symptoms: nausea, vomiting - Review of Systems Constitutional: Lethargy, Malaise, Weakness Eyes: No Symptoms Ears, Nose, & Throat: No Symptoms Respiratory: No Cough, No Short Of Breath Cardiac: No Chest Pain, No Edema, No Syncope Abdominal/Gastrointestinal: Abdominal Pain, Nausea, Vomiting, No Diarrhea Genitourinary Symptoms: No Dysuria Musculoskeletal: No Back Pain, No Neck Pain Skin: No Rash Neurological: No Dizziness, No Focal Weakness, No Sensory Changes Psychological: No Symptoms Endocrine: Other (high blood sugars) Hematologic/Lymphatic: No Symptoms Immunological/Allergic: No Symptoms Medications & Allergies Home Medications: Home Medication List Alprazolam 1 mg [Xanax 1 mg] 1 mg PO TID 09/28/14 [History Confirmed 07/20] Vitamin B Complex 1 each PO DAILY 09/22/15 [History Confirmed 07/20/16] Vitamin E 400 Units [Vitamin E 400 UNIT SOFTGEL] 400 unit PO DAILY [History Confirmed 07/20/16] Promethazine HCl 25 mg [Phenergan 25 mg] 25 mg PO Q4HPRN PRN 10/14/15 [ History Confirmed 07/20/16] Insulin Aspart [NovoLOG Insulin] 0 units SQ TIDWM 06/25/16 [History Confirmed 07/20/16] Allergies/Adverse Reactions: Allergies Allergy/AdvReac Type Severity Reaction Status Date / Time orphenadrine citrate Allergy Intermediate Verified 07/20/16 02:50 [From Norflex] codeine Allergy Verified 07/20/16 02:50 hydrocodone bitartrate AdvReac Mild Verified 07/20/16 02:50 [From [place]] levofloxacin [From Levaquin] AdvReac Mild Nausea and Verified 07/20/16 02:50 Vomiting - Past Medical History Past Medical History: Yes Neurological History: No Pertinent History ENT History: No Pertinent History Cardiac History: Coronary Artery Disease Respiratory History: COPD Endocrine Medical History: Diabetes Type I Musculoskelatal History: Degenerative Disk Disease, Other GI Medical History: GERD History: Renal Disease Pyscho-Social History: Anxiety, Depression Reproductive Disorders: No Pertinent History Comment: HAS INSULIN PUMP. cardiac STENT PLACEMENT X 2, back problem, renal failure - Female History Are you now?: No - Past Surgical History Past Surgical History: Yes Neuro Surgical History: No Pertinent History Cardiac History: Cardiac Catheterization, Cardiac Stent Respiratory Surgery: No Pertinent History GI Surgical History: Cholecystectomy Genitourinary Surgical Hx: No Pertinent History Musculskeletal Surgical Hx: Other Female Surgical History: Tubal Ligation Other Surgical History: BUNONECTOMY. BACK SURGERY X2 - Social History Smoking Status: Current every day smoker How long have you smoked: 30 Exposure to second hand smoke: Yes Alcohol: Rarely Drug Use: none Significant Family History: heart disease, diabetes, hypertension - Physical Exam Vital Signs: Vital Signs - 24 hr Temp Pulse Resp BP Pulse Ox 07/20/16 16:00 100.8 F 99 H 20 98 07/20/16 12:00 98.3 F 91 H 27 H 118/64 96 07/20/16 08:00 98.3 F 91 H 25 H 96/61 95 07/20/16 05:19 99.1 F 95 H 25 H 108/63 95 07/20/16 05:17 25 H 07/20/16 04:38 99 H 108/57 07/20/16 04:13 101 H 24 104/58 95 07/20/16 04:11 96 07/20/16 03:48 104 H 24 82/46 97 07/20/16 03:37 99 07/20/16 02:39 98.9 F 110 H 24 75/45 96 General Appearance: moderate distress, alert Neurologic Exam: alert, oriented x 3, cooperative, normal mood/affect, nml cerebellar function, nml station & gait, sensation nml, No motor deficits Eye Exam: PERRL/EOMI, eyes nml inspection Ears, Nose, Throat Exam: normal ENT inspection, TMs normal, pharynx normal, moist mucous membranes Neck Exam: normal inspection, non-tender, supple, full range of motion Respiratory Exam: normal breath sounds, lungs clear, No respiratory distress Cardiovascular Exam: regular rate/rhythm, normal heart sounds, normal peripheral pulses Gastrointestinal/Abdomen Exam: soft, normal bowel sounds, No tenderness, No mass Back Exam: normal inspection, normal range of motion, No CVA tenderness, No vertebral tenderness Extremity Exam: normal inspection, normal range of motion, pelvis stable Skin Exam: normal color, warm, dry, No rash Lymphatic Exam: No adenopathy Results - Labs Lab/Micro Results: Accuchecks Date 07/20/16 Date 07/20/16 Date 07/20/16 Date 07/20/16 Date 07/20/16 Date 07/20/16 Date 07/20/16 Time 18:00 Time 16:30 Time 12:00 Time 11:00 Time 10:00 Time 09:00 Time 06:00 Accucheck Value: 212 Accucheck Value: 135 Accucheck Value: 212 Accucheck Value: 193 Accucheck Value: 225 Accucheck Value: 345 Accucheck Value: 441 Accucheck Value: 441 Lab Results-Last 24 Hours 07/20/16 07/20/16 07/20/16 Range/Units 08:05 08:05 08:14 WBC 16.1 H (4.0-10.5) K/mm3 RBC 4.01 L (4.1-5.4) M/mm3 Hgb 11.7 L (12.0-16.0) gm/dl Hct 36.0 (35-47) % MCV 89.8 (78-100) fl MCH 29.1 (26-32) pg MCHC 32.5 (32-36) g/dl RDW 13.8 (11.5-14.0) % Plt Count 298 (150-450) K/mm3 MPV 9.2 (6-9.5) fl VBG pH 7.40 (7.32-7.42) VBG pCO2 at Pat Temp 40 L (42-55) mm/Hg VBG pO2 at Pat Temp 48 H (25-40) mm/Hg VBG HCO3 24.8 (22-28) meq/L VBG O2 Sat (Moe) 88.7 L (95-100) VBG Base Excess 0.0 (-2.0-2.0) VBG Hemoglobin 11.7 VBG Carboxyhemoglobin 4.5 (0.0-6.9) % T HGB POC Potassium 4.2 (3.5-5.1) Sodium 137 (136-145) mEq/L Potassium 4.2 (3.5-5.1) mEq/L Chloride 105 (98-107) mEq/L Carbon Dioxide 24.0 (21-32) mEq/L Anion Gap 12.6 (5-15) MEQ/L BUN 26 H (9-20) mg/dL Creatinine 1.40 H (0.55-1.30) mg/dl Estimated GFR 42 ML/MIN Glucose 270 H (70-110) MG/DL Calcium 8.5 (8.5-10.1) mg/dL Total Bilirubin 0.4 (0.2-1.0) mg/dL Direct Bilirubin 0.10 (0.0-0.2) MG/DL AST 12 L (15-37) U/L ALT 11 L (12-78) U/L Alkaline Phosphatase 115 (46-116) U/L Serum Total Protein 6.0 L (6.4-8.2) gm/dL Albumin 2.5 L (3.4-5.0) g/dL 07/20/16 07/20/16 Range/Units 12:22 17:47 WBC (4.0-10.5) K/mm3 RBC (4.1-5.4) M/mm3 Hgb (12.0-16.0) gm/dl Hct (35-47) % MCV (78-100) fl MCH (26-32) pg MCHC (32-36) g/dl RDW (11.5-14.0) % Plt Count (150-450) K/mm3 MPV (6-9.5) fl VBG pH (7.32-7.42) VBG pCO2 at Pat Temp (42-55) mm/Hg VBG pO2 at Pat Temp (25-40) mm/Hg VBG HCO3 (22-28) meq/L VBG O2 Sat (Moe) (95-100) VBG Base Excess (-2.0-2.0) VBG Hemoglobin VBG Carboxyhemoglobin (0.0-6.9) % T HGB POC Potassium (3.5-5.1) Sodium 131 L 143 (136-145) mEq/L Potassium 4.1 4.3 (3.5-5.1) mEq/L Chloride 102 108 H (98-107) mEq/L Carbon Dioxide 24.9 19.9 L (21-32) mEq/L Anion Gap 8.0 19.6 H (5-15) MEQ/L BUN 24 H 18 (9-20) mg/dL Creatinine 1.27 1.01 (0.55-1.30) mg/dl Estimated GFR 47 > 60 ML/MIN Glucose 173 H 189 H (70-110) MG/DL Calcium 8.6 8.5 (8.5-10.1) mg/dL Total Bilirubin 0.4 (0.2-1.0) mg/dL Direct Bilirubin 0.08 (0.0-0.2) MG/DL AST 12 L (15-37) U/L ALT 8 L (12-78) U/L Alkaline Phosphatase 112 (46-116) U/L Serum Total Protein 6.0 L (6.4-8.2) gm/dL Albumin 2.5 L (3.4-5.0) g/dL Accuchecks Date 07/20/16 Date 07/20/16 Date 07/20/16 Date 07/20/16 Date 07/20/16 Date 07/20/16 Date 07/20/16 Time 18:00 Time 16:30 Time 12:00 Time 11:00 Time 10:00 Time 09:00 Time 06:00 Accucheck Value: 212 Accucheck Value: 135 Accucheck Value: 212 Accucheck Value: 193 Accucheck Value: 225 Accucheck Value: 345 Accucheck Value: 441 Accucheck Value: 441 Assessment/Plan (1) DKA (diabetic ketoacidoses) Current Visit: Yes Status: Acute Qualifiers: Diabetes mellitus type: type 2 Diabetes mellitus complication detail: without coma Qualified Code(s): E13.10 - Other specified diabetes mellitus with ketoacidosis without coma Assessment & Plan: will admit patient in ICU, start DKA protocol, start insulin infusion Code(s): E13.10 - OTH DIABETES MELLITUS WITH KETOACIDOSIS WITHOUT COMA (2) Diabetes mellitus, insulin dependent (IDDM), uncontrolled Current Visit: No Status: Chronic Qualifiers: Diabetes mellitus complication status: with ketoacidosis Diabetes mellitus complication detail: without coma Qualified Code(s): E10.10 - Type 1 diabetes mellitus with ketoacidosis without coma Code(s): E10.65 - TYPE 1 DIABETES MELLITUS WITH HYPERGLYCEMIA
[2016-07-20 21:47] LABS: ALBUMIN 2.3 g/dL (3.4-5.0); ALKALINE PHOSPHATASE 111 U/L (46-116); ANION GAP 20.6 MEQ/L (5-15); BILIRUBIN,TOTAL 0.4 mg/dL (0.2-1.0); BLOOD UREA NITROGEN 16 mg/dL (9-20); CHLORIDE 107 mEq/L (98-107); Carbon Dioxide 18.3 mEq/L (21-32); Direct Bilirubin 0.08 MG/DL (0.0-0.2); Glucose 244 MG/DL (70-110); Potassium 4.2 mEq/L (3.5-5.1); SGOT/AST 11 U/L (15-37); SGPT/ALT 8 U/L (12-78); SODIUM 142 mEq/L (136-145)
[2016-07-21 01:32] LABS: ALBUMIN 2.2 g/dL (3.4-5.0); ALKALINE PHOSPHATASE 109 U/L (46-116); ANION GAP 17.4 MEQ/L (5-15); BILIRUBIN,TOTAL 0.4 mg/dL (0.2-1.0); BLOOD UREA NITROGEN 12 mg/dL (9-20); CHLORIDE 108 mEq/L (98-107); Carbon Dioxide 20.1 mEq/L (21-32); Direct Bilirubin 0.09 MG/DL (0.0-0.2); Glucose 224 MG/DL (70-110); Potassium 4.1 mEq/L (3.5-5.1); SGOT/AST 11 U/L (15-37); SODIUM 141 mEq/L (136-145); Total Protein 5.6 gm/dL (6.4-8.2)
[2016-07-21 01:44] LABS: SGPT/ALT 6 U/L (12-78)
[2016-07-21] MEDS: Sodium Chloride 0.9% 1000 ML 1,000 ML IV SCH ×4 (04:33→21:33)
[2016-07-21] MEDS ORDERED: NovoLIN R ONE (05:02)
[2016-07-21] MEDS ORDERED: Sodium Chloride 0.9% 100 ML IVPB 100 ML IV ONE (05:02)
[2016-07-21] MEDS ORDERED: NOVOLIN R INSULIN (FOR DRIPS)** 100 UNITS in Sodium Chloride 0.9% 100 ML IVPB 100 ML IV PRN (05:04)
[2016-07-21 05:38] LABS: Mean Cell Volume 92.5 fl (78-100); Mean Platelet Volume 9.4 fl (6-9.5); Platelet Count 251 K/mm3 (150-450); Red Blood Count 3.71 M/mm3 (4.1-5.4); Red Cell Distribution Width 14.3 % (11.5-14.0); White Blood Count 16.5 K/mm3 (4.0-10.5)
[2016-07-21 05:46] LABS: Mean Corpuscular Hemoglobin 29.3 pg (26-32)
[2016-07-21 06:32] LABS: ALBUMIN 2.3 g/dL (3.4-5.0); ANION GAP 23.7 MEQ/L (5-15); BILIRUBIN,TOTAL 0.4 mg/dL (0.2-1.0); Direct Bilirubin 0.06 MG/DL (0.0-0.2); Potassium 4.2 mEq/L (3.5-5.1)
[2016-07-21 06:46] LABS: Carbon Dioxide 13.1 mEq/L (21-32)
[2016-07-21] MEDS: NOVOLIN R INSULIN (FOR DRIPS)** 100 UNITS in Sodium Chloride 0.9% 100 ML IVPB 100 ML IV PRN ×5 (06:46→22:06)
[2016-07-21 10:26] LABS: ALBUMIN 2.1 g/dL (3.4-5.0); ALKALINE PHOSPHATASE 108 U/L (46-116); ANION GAP 13.3 MEQ/L (5-15); BILIRUBIN,TOTAL 0.3 mg/dL (0.2-1.0); BLOOD UREA NITROGEN 9 mg/dL (9-20); CHLORIDE 111 mEq/L (98-107); Carbon Dioxide 23.6 mEq/L (21-32); Direct Bilirubin 0.08 MG/DL (0.0-0.2); Glucose 174 MG/DL (70-110); Potassium 3.6 mEq/L (3.5-5.1); SGOT/AST 8 U/L (15-37); SGPT/ALT 7 U/L (12-78); SODIUM 144 mEq/L (136-145); Total Protein 5.7 gm/dL (6.4-8.2)
--- NOTE | 2016-07-21 12:28 | PCM.NOTE ---
Date and Time: 07/21/16 1225 Subjective Assessment: last 24 hours events noted, c/o generalised bodyaches, c/o left flank pain. - Review of Systems Constitutional: Lethargy, Malaise, Weakness, No Fever, No Chills Eyes: No Symptoms Ears, Nose, & Throat: No Symptoms Respiratory: No Cough, No Short Of Breath Cardiac: No Chest Pain, No Edema, No Syncope Abdominal/Gastrointestinal: Abdominal Pain (left alfredo), No Nausea, No Vomiting , No Diarrhea Genitourinary Symptoms: No Dysuria Musculoskeletal: No Back Pain, No Neck Pain Skin: No Rash Neurological: No Dizziness, No Focal Weakness, No Sensory Changes Psychological: No Symptoms Endocrine: No Symptoms Hematologic/Lymphatic: No Symptoms Immunological/Allergic: No Symptoms Objective Exam General Appearance: no apparent distress, alert Neurologic Exam: alert, oriented x 3, cooperative, normal mood/affect, nml cerebellar function, sensation nml, No motor deficits Skin Exam: normal color, warm, dry Eye Exam: PERRL, EOMI, eyes nml inspection Ears, Nose, Throat Exam: normal ENT inspection, pharynx normal, moist mucous membranes Neck Exam: normal inspection, non-tender, supple, full range of motion Respiratory Exam: normal breath sounds, lungs clear, No respiratory distress Cardiovascular Exam: regular rate/rhythm, normal heart sounds Gastrointestinal/Abdomen Exam: soft, No tenderness, No mass Extremity Exam: normal inspection, normal range of motion Back Exam: normal inspection, normal range of motion, No CVA tenderness, No vertebral tenderness Pelvic Exam: deferred Rectal Exam: deferred OBJECTIVE DATA Vital Signs: Vital Signs - 24 hr Temp Pulse Resp BP Pulse Ox 07/21/16 12:00 99.0 F 86 22 113/63 98 07/21/16 08:00 99.0 F 83 24 110/56 98 07/21/16 04:00 98.2 F 93 H 30 H 119/61 97 07/21/16 00:01 93 H 07/21/16 00:00 100.0 F 93 H 28 H 142/75 97 07/20/16 20:00 100 H 22 119/61 95 07/20/16 16:00 100.8 F 99 H 20 98 Pain Assessment - Last Documented Pain Intensity 5 Intake and Output: Intake & Output 07/19/16 07/20/16 07/21/16 07/22/16 11:59 11:59 11:59 11:59 Intake Total 218 4246 Output Total 900 Balance 218 3346 Weight 64.093 kg Lab Results: Accuchecks 07/21/1607/21/1607/21/1607/21/1607/21/1607/21/16 Date 07/20/1607/20/16 Time 12:00 Time 01:00 Time 01:00 Time 09:00 Time 08:00 Time 07:20 Time 18:00 Time 16:30 Accucheck Value: 92 Accucheck Value: 109 Accucheck Value: 138 Accucheck Value: 215 Accucheck Value: 280 Accucheck Value: 201 Accucheck Value: 166 Accucheck Value: 212 Accucheck Value: 135 Lab Results-Last 24 Hours 07/20/16 07/20/16 07/20/16 Range/Units 12:22 17:47 21:05 WBC (4.0-10.5) K/mm3 RBC (4.1-5.4) M/mm3 Hgb (12.0-16.0) gm/dl Hct (35-47) % MCV (78-100) fl MCH (26-32) pg MCHC (32-36) g/dl RDW (11.5-14.0) % Plt Count (150-450) K/mm3 MPV (6-9.5) fl Sodium 131 L 143 142 (136-145) mEq/L Potassium 4.1 4.3 4.2 (3.5-5.1) mEq/L Chloride 102 108 H 107 (98-107) mEq/L Carbon Dioxide 24.9 19.9 L 18.3 L (21-32) mEq/L Anion Gap 8.0 19.6 H 20.6 H (5-15) MEQ/L BUN 24 H 18 16 (9-20) mg/dL Creatinine 1.27 1.01 0.96 (0.55-1.30) mg/dl Estimated GFR 47 > 60 > 60 ML/MIN Glucose 173 H 189 H 244 H (70-110) MG/DL Calcium 8.6 8.5 8.2 L (8.5-10.1) mg/dL Total Bilirubin 0.4 0.4 (0.2-1.0) mg/dL Direct Bilirubin 0.08 0.08 (0.0-0.2) MG/DL AST 12 L 11 L (15-37) U/L ALT 8 L 8 L (12-78) U/L Alkaline Phosphatase 112 111 (46-116) U/L Serum Total Protein 6.0 L 6.0 L (6.4-8.2) gm/dL Albumin 2.5 L 2.3 L (3.4-5.0) g/dL 07/21/16 07/21/16 07/21/16 Range/Units 01:08 05:15 05:15 WBC 16.5 H (4.0-10.5) K/mm3 RBC 3.71 L (4.1-5.4) M/mm3 Hgb 10.9 L (12.0-16.0) gm/dl Hct 34.3 L (35-47) % MCV 92.5 (78-100) fl MCH 29.3 (26-32) pg MCHC 31.8 L (32-36) g/dl RDW 14.3 H (11.5-14.0) % Plt Count 251 (150-450) K/mm3 MPV 9.4 (6-9.5) fl Sodium 141 139 (136-145) mEq/L Potassium 4.1 4.2 (3.5-5.1) mEq/L Chloride 108 H 106 (98-107) mEq/L Carbon Dioxide 20.1 L 13.1 L* (21-32) mEq/L Anion Gap 17.4 H 23.7 H (5-15) MEQ/L BUN 12 13 (9-20) mg/dL Creatinine 0.92 1.07 (0.55-1.30) mg/dl Estimated GFR > 60 57 ML/MIN Glucose 224 H 417 H (70-110) MG/DL Calcium 8.2 L 8.3 L (8.5-10.1) mg/dL Total Bilirubin 0.4 0.4 (0.2-1.0) mg/dL Direct Bilirubin 0.09 0.06 (0.0-0.2) MG/DL AST 11 L 12 L (15-37) U/L ALT 6 L 8 L (12-78) U/L Alkaline Phosphatase 109 121 H (46-116) U/L Serum Total Protein 5.6 L 6.0 L (6.4-8.2) gm/dL Albumin 2.2 L 2.3 L (3.4-5.0) g/dL 07/21/16 Range/Units 09:15 WBC (4.0-10.5) K/mm3 RBC (4.1-5.4) M/mm3 Hgb (12.0-16.0) gm/dl Hct (35-47) % MCV (78-100) fl MCH (26-32) pg MCHC (32-36) g/dl RDW (11.5-14.0) % Plt Count (150-450) K/mm3 MPV (6-9.5) fl Sodium 144 (136-145) mEq/L Potassium 3.6 (3.5-5.1) mEq/L Chloride 111 H (98-107) mEq/L Carbon Dioxide 23.6 (21-32) mEq/L Anion Gap 13.3 (5-15) MEQ/L BUN 9 (9-20) mg/dL Creatinine 0.91 (0.55-1.30) mg/dl Estimated GFR > 60 ML/MIN Glucose 174 H (70-110) MG/DL Calcium 8.2 L (8.5-10.1) mg/dL Total Bilirubin 0.3 (0.2-1.0) mg/dL Direct Bilirubin 0.08 (0.0-0.2) MG/DL AST 8 L (15-37) U/L ALT 7 L (12-78) U/L Alkaline Phosphatase 108 (46-116) U/L Serum Total Protein 5.7 L (6.4-8.2) gm/dL Albumin 2.1 L (3.4-5.0) g/dL Assessment/Plan (1) DKA (diabetic ketoacidoses) Current Visit: Yes Status: Acute Qualifiers: Diabetes mellitus type: type 2 Diabetes mellitus complication detail: without coma Qualified Code(s): E13.10 - Other specified diabetes mellitus with ketoacidosis without coma Code(s): E13.10 - OTH DIABETES MELLITUS WITH KETOACIDOSIS WITHOUT COMA (2) Diabetes mellitus, insulin dependent (IDDM), uncontrolled Current Visit: Yes Status: Acute Qualifiers: Diabetes mellitus complication status: with ketoacidosis Diabetes mellitus complication detail: without coma Qualified Code(s): E10.10 - Type 1 diabetes mellitus with ketoacidosis without coma Code(s): E10.65 - TYPE 1 DIABETES MELLITUS WITH HYPERGLYCEMIA
[2016-07-21] MEDS: MORPHINE SULFATE 2 MG INJ IV PRN (12:54)
[2016-07-21] MEDS: ROCEPHIN 1 Gm-D5w 50 ml Bag** 50 ML IV SCH (12:54)
[2016-07-21 13:03] LABS: Collection Type VOID
[2016-07-21 13:04] LABS: COMPLETE URINE MICROSCOPIC? YES
[2016-07-21 13:32] LABS: Bacteria FEW /HPF (NEGATIVE); Epithelial Cells FEW /HPF (FEW); WBC 0-2 /HPF (0-5)
--- NOTE | 2016-07-21 13:34 | XRAY ---
Indication: Left lower abdominal pain. Multiple contiguous axial images obtained through the abdomen and pelvis without contrast as ordered. Comparison: August 28, 2015. Lung bases demonstrate new mild bibasilar atelectasis with tiny effusions. Heart is not enlarged. Several images slightly degraded by respiration artifact. Noncontrasted stomach and bowel loops again nonobstructed. Again mild diffuse scattered colonic fecal debris throughout more than before. There is now mild fluid distended small bowel loops with some fluid leveling, ileus versus enteritis. New small pelvic free fluid presumed reactive. No walled off fluid collection or free air. Again prominent liver and prominent biliary tree. Common bile duct now up to 13 mm in diameter, borderline enlarged for cholecystectomy. This was previously 9 mm. Pancreatic head remains prominent and again difficult to further characterize on this noncontrast exam. There is now beam artifact from external left abdomen electronic device. No abnormal pancreatic ductal dilatation. Stable IVC, hepatic, and portal vein prominence. Stable calcified splenic granulomas and right lower renal pole calcifications. Remaining liver, spleen, adrenal glands, kidneys, ureters, bladder, and uterus appear unremarkable for noncontrast exam. Again heavy aortoiliac calcifications. No AAA. Osseous structures intact again with lumbar degenerative changes and scoliosis. Impression: 1. New fluid distended small bowel loops with fluid leveling. Rule out ileus versus enteritis. Also new small pelvic free fluid presumed reactive. 2. New bibasilar tiny effusions without cardiomegaly. 3. Biliary tree remains prominent with interval enlarging common bile duct. Pancreatic head remains prominent and difficult to further characterize due to beam artifact and lack of contrast. 4. Stable hepatomegaly with prominent IVC, hepatic vein, and portal vein. No ascites. 5. Stable right renal calcifications. 6. Again fecal stasis without obstruction. CTDI 17.69
[2016-07-21] MEDS: XANAX 1 MG PO SCH (18:28)
[2016-07-22] MEDS: Sodium Chloride 0.9% 1000 ML 1,000 ML IV SCH ×4 (02:12→20:07)
[2016-07-22] MEDS: XANAX 1 MG PO SCH ×4 (04:28→22:08)
[2016-07-22] MEDS: MORPHINE SULFATE 2 MG INJ IV PRN ×3 (06:00→20:22)
[2016-07-22 09:51] LABS: BASOPHIL % 0.5 % (0.0-0.4); Eosinophil % 5.1 % (0.00-5.0); Granulocytes % 62.4 % (36.0-66.0); Lymphocytes % 22.9 % (24.0-44.0); Mean Cell Volume 91.3 fl (78-100); Mean Platelet Volume 9.2 fl (6-9.5); Monocytes % 9.1 % (0.0-12.0); Platelet Count 208 K/mm3 (150-450); Red Blood Count 3.45 M/mm3 (4.1-5.4); Red Cell Distribution Width 14.2 % (11.5-14.0); White Blood Count 9.1 K/mm3 (4.0-10.5)
[2016-07-22 09:52] LABS: Mean Corpuscular Hemoglobin 28.9 pg (26-32)
[2016-07-22 10:12] LABS: CHLORIDE 113 mEq/L (98-107); Potassium 3.7 mEq/L (3.5-5.1); SODIUM 146 mEq/L (136-145)
[2016-07-22] MEDS: ROCEPHIN 1 Gm-D5w 50 ml Bag** 50 ML IV SCH (10:12)
[2016-07-22 11:26] LABS: ALBUMIN 1.9 g/dL (3.4-5.0); ALKALINE PHOSPHATASE 135 U/L (46-116); BILIRUBIN,TOTAL 0.2 mg/dL (0.2-1.0); BLOOD UREA NITROGEN 5 mg/dL (9-20); Glucose 120 MG/DL (70-110); MAGNESIUM 1.3 mg/dL (1.8-2.4); SGOT/AST 130 U/L (15-37); SGPT/ALT 81 U/L (12-78); Total Protein 5.4 gm/dL (6.4-8.2)
[2016-07-22 11:42] LABS: ANION GAP 13.7 MEQ/L (5-15)
--- NOTE | 2016-07-22 17:20 | PCM.NOTE ---
Date and Time: 07/22/161717 Subjective Assessment: last 24 hours events noted, patient is still very weak and lethargic, c/o aches all over, Nurses concern about xanax overuse at home explored with patient. - Review of Systems Constitutional: Lethargy, Malaise, Weakness, No Fever, No Chills Eyes: No Symptoms Ears, Nose, & Throat: No Symptoms Respiratory: No Cough, No Short Of Breath Cardiac: No Chest Pain, No Edema, No Syncope Abdominal/Gastrointestinal: No Abdominal Pain, No Nausea, No Vomiting, No Diarrhea Genitourinary Symptoms: No Dysuria Musculoskeletal: No Back Pain, No Neck Pain Skin: No Rash Neurological: No Dizziness, No Focal Weakness, No Sensory Changes Psychological: No Symptoms Endocrine: No Symptoms Hematologic/Lymphatic: No Symptoms Immunological/Allergic: No Symptoms Objective Exam General Appearance: mild distress, alert Neurologic Exam: alert, oriented x 3, cooperative, normal mood/affect, nml cerebellar function, sensation nml, No motor deficits Skin Exam: normal color, warm, dry Eye Exam: PERRL, EOMI, eyes nml inspection Ears, Nose, Throat Exam: normal ENT inspection, pharynx normal, moist mucous membranes Neck Exam: normal inspection, non-tender, supple, full range of motion Respiratory Exam: normal breath sounds, lungs clear, No respiratory distress Cardiovascular Exam: regular rate/rhythm, normal heart sounds Gastrointestinal/Abdomen Exam: soft, No tenderness, No mass Extremity Exam: normal inspection, normal range of motion Back Exam: normal inspection, normal range of motion, No CVA tenderness, No vertebral tenderness Pelvic Exam: deferred Rectal Exam: deferred OBJECTIVE DATA Vital Signs: Vital Signs - 24 hr Temp Pulse Resp BP Pulse Ox 07/22/16 16:00 98.3 F 76 23 146/86 96 07/22/16 12:25 95 07/22/16 12:00 98.6 F 73 18 138/90 94 L 07/22/16 08:00 97.6 F 72 19 126/72 94 L 07/22/16 04:00 84 20 113/62 90 L 07/22/16 00:41 76 31 H 90 L 07/22/16 00:01 76 07/22/16 00:00 99.0 F 78 26 H 121/72 92 L 07/21/16 20:00 99.0 F 76 31 H 140/84 94 L Oxygen-Last 24 hours O2 Percentage 2 Liters = 28% O2 Percentage 2 Liters = 28% Pain Assessment - Last Documented Pain Intensity 8 Pain Scale Used 0-10 Pain Scale Intake and Output: Intake & Output 07/20/16 07/21/16 07/22/16 07/23/16 11:59 11:59 11:59 11:59 Intake Total 218 4246 5801 600 Output Total 900 2710 1200 Balance 218 3346 3091 -600 Weight 64.093 kg 64.093 kg Lab Results: Accuchecks Date 07/22/16 Date 07/22/16 Date 07/22/16 Date 07/22/16 Date 07/22/16 Date 07/21/16 Time 16:35 Time 16:30 Time 11:21 Time 07:54 Time 05:40 Time 22:00 Accucheck Value: 243 Accucheck Value: 232 Accucheck Value: 141 Accucheck Value: 119 Accucheck Value: 87 Accucheck Value: 236 Lab Results-Last 24 Hours 07/22/16 07/22/16 07/22/16 Range/Units 09:47 09:47 Unknown WBC 9.1 (4.0-10.5) K/mm3 RBC 3.45 L (4.1-5.4) M/mm3 Hgb 10.0 L (12.0-16.0) gm/dl Hct 31.5 L (35-47) % MCV 91.3 (78-100) fl MCH 28.9 (26-32) pg MCHC 31.7 L (32-36) g/dl RDW 14.2 H (11.5-14.0) % Plt Count 208 (150-450) K/mm3 MPV 9.2 (6-9.5) fl Gran % 62.4 (36.0-66.0) % Lymphocytes % 22.9 L (24.0-44.0) % Monocytes % 9.1 (0.0-12.0) % Eosinophils % 5.1 H (0.00-5.0) % Basophils % 0.5 (0.0-0.4) % Basophils # 0.05 (0-0.4) Sodium 146 H (136-145) mEq/L Potassium 3.7 (3.5-5.1) mEq/L Chloride 113 H (98-107) mEq/L Carbon Dioxide 23.0 (21-32) mEq/L Anion Gap 13.7 (5-15) MEQ/L BUN 5 L (9-20) mg/dL Creatinine 0.64 (0.55-1.30) mg/dl Estimated GFR > 60 ML/MIN Glucose 120 H (70-110) MG/DL Calcium 8.1 L (8.5-10.1) mg/dL Magnesium 1.3 L (1.8-2.4) mg/dL Total Bilirubin 0.2 (0.2-1.0) mg/dL AST 130 H (15-37) U/L ALT 81 H (12-78) U/L Alkaline Phosphatase 135 H (46-116) U/L Serum Total Protein 5.4 L (6.4-8.2) gm/dL Albumin 1.9 L (3.4-5.0) g/dL Urine Opiates Level NEG. (NEGATIVE) Ur Methadone NEG. (NEGATIVE) Urine Barbiturates NEG. (NEGATIVE) Ur Phencyclidine (PCP) NEG. (NEGATIVE) Urine Amphetamine NEG. (NEGATIVE) U Benzodiazepine Level POS. (NEGATIVE) Urine Cocaine NEG. (NEGATIVE) Urine Marijuana (THC) NEG. (NEGATIVE) Radiology Exams: Radiology Procedures Category Date Time Status ABDOMEN AND PELVIS W/0 CONTRAS [CT] Routine Exams 07/21/16 12:25 Completed Multi-Disciplinary Progress Notes: Multi-Disciplinary Progress Notes 07/22/16 10:25 (created 07/22/16 15:25) Case Management Note by Aubrie Kennedy CONTINUES TO PLAN TO RETURN HOME TO PRE EPISODIC LEVEL OF FNX. DR. ARIAS HAS ORDERED TELEMENTAL, DISCUSSED WITH PT, REPORTS THAT SHE WILL AGREE TO IT AND ALSO TO AM LABS. APPARENTLY SHE HAD REFUSED MORNING LABS EARLIER. CONTINUES TO DECLINE NEEDS FOR DISCHARGE. PLAN TO RETURN HOME WITH , INDEPENDENT WITH ALL ADL'S. WILL CONTINUE TO FOLLOW AND ASSESS FOR ALL DC NEEDS. Initialized on 07/22/16 15:25 - END OF NOTE 07/22/16 00:48 Respiratory Note by Arnulfo Clements NURSING CALLED TO NOTE THAT PT SPO2 HAS SLOWING BEEN TRENDING DOWNWARD THIS BREN. PT SATS HAD BEEN HIGH 98% ON RA BUT OVER THE COURSE OF THE BREN IT HAS BEEN SLOWLY GOING DOWN. PT WAS 91% ON RA W/ RESP OF 30 (WHICH HAS BEEN NORM FOR HER DURING HER STAY). I PLACED PT ON 2LPM VIA NC AND SATS CAME UP TO 95%. Initialized on 07/22/16 00:48 - END OF NOTE Assessment/Plan (1) DKA (diabetic ketoacidoses) Current Visit: Yes Status: Acute Qualifiers: Diabetes mellitus type: type 2 Diabetes mellitus complication detail: without coma Qualified Code(s): E13.10 - Other specified diabetes mellitus with ketoacidosis without coma Assessment & Plan: resolving Chief Complaint Diagnosis c/o nausea nad vomiting for 1-2 days Allergies Allergy/AdvReac Type Severity Reaction Status Date / Time orphenadrine citrate Allergy Intermediate Verified 07/20/16 02:50 [From Norflex] codeine Allergy Verified 07/20/16 02:50 hydrocodone bitartrate AdvReac Mild Verified 07/20/16 02:50 [From [place]] levofloxacin [From Levaquin] AdvReac Mild Nausea and Verified 07/20/16 02:50 Vomiting Vital Signs (Last 24 hours) Temp Pulse Resp BP Pulse Ox 07/22/16 16:00 98.3 F 76 23 146/86 96 07/22/16 12:25 95 07/22/16 12:00 98.6 F 73 18 138/90 94 L 07/22/16 08:00 97.6 F 72 19 126/72 94 L 07/22/16 04:00 84 20 113/62 90 L 07/22/16 00:41 76 31 H 90 L 07/22/16 00:01 76 07/22/16 00:00 99.0 F 78 26 H 121/72 92 L 07/21/16 20:00 99.0 F 76 31 H 140/84 94 L Current Medications Generic Name Dose Route Start Last Admin Trade Name Freq PRN Reason Stop Dose Admin Alprazolam 1 mg 07/21/16 17:30 07/22/16 16:18 Xanax 1 Mg PO 08/20/16 17:29 Not Given TID NISSA Insulin Human Regular 100 101 mls @ 5.05 mls/hr 07/21/16 05:53 07/21/16 22:06 units/ Sodium Chloride IV 08/20/16 05:03 5.05 mls/hr .Q20H PRN Administration DKA/HYPERGYCEMIA Protocol 5 UNITS/HR Ceftriaxone Sodium/Dextrose 50 mls @ 100 mls/hr 07/21/16 12:30 07/22/16 10:12 Rocephin 1 Gm-D5w 50 Ml Bag IV 08/20/16 12:29 100 mls/hr Q24H10 NISSA Administration Sodium Chloride 1,000 mls @ 200 mls/hr 07/21/16 08:15 07/22/16 13:33 Sodium Chloride 0.9% 1000 Ml IV 08/20/16 08:14 200 mls/hr .Q5H NISSA Administration Insulin Aspart 0 unit 07/20/16 12:45 Novolog Insulin SQ 08/19/16 12:44 UD PRN HYPERGLYCEMIA Morphine Sulfate 2 mg 07/21/16 12:28 07/22/16 12:16 Morphine Sulfate 2 Mg Inj IV 07/26/16 12:27 2 mg Q4H PRN PRN Administration PAIN Promethazine HCl 25 mg 07/20/16 05:08 07/20/16 11:18 Phenergan 25 Mg Inj IV 08/19/16 05:07 25 mg Q6H PRN PRN Administration NAUSEA/VOMITING Discontinued Medications Generic Name Dose Route Start Last Admin Trade Name Freq PRN Reason Stop Dose Admin Sodium Chloride 1,000 mls @ 999 mls/hr 07/20/16 02:54 07/20/16 03:09 Sodium Chloride 0.9% 1000 Ml IV 07/20/16 03:54 999 mls/hr .Q1H1M STA Administration Sodium Chloride 1,000 mls @ 999 mls/hr 07/20/16 02:58 07/20/16 03:13 Sodium Chloride 0.9% 1000 Ml IV 07/20/16 03:58 999 mls/hr .Q1H1M STA Administration Sodium Chloride Confirm 07/20/16 03:00 Sodium Chloride 0.9% 1000 Ml Administered 07/20/16 03:01 Dose 1,000 mls @ ud .ROUTE .STK-MED ONE Sodium Chloride Confirm 07/20/16 03:12 Sodium Chloride 0.9% 1000 Ml Administered 07/20/16 03:13 Dose 1,000 mls @ ud .ROUTE .STK-MED ONE Sodium Chloride Confirm 07/20/16 03:30 Sodium Chloride 0.9% 100 Ml Ivpb Administered 07/20/16 03:31 Dose 100 mls @ ud IV .STK-MED ONE Insulin Human Regular 100 101 mls @ 0 mls/hr 07/20/16 03:45 07/20/16 04:39 units/ Sodium Chloride IV 08/19/16 03:44 5 mls/hr .Q0M PRN Administration HYPERGLYCEMIA Protocol Titrate Sodium Chloride 1,000 mls @ 150 mls/hr 07/20/16 05:08 07/21/16 10:47 Sodium Chloride 0.9% 1000 Ml IV 08/19/16 05:07 150 mls/hr .Q6H40M NISSA Administration Insulin Human Regular 100 101 mls @ 6.47 mls/hr 07/21/16 05:04 07/21/16 05:10 units/ Sodium Chloride IV 08/20/16 05:03 5 mls/hr .[id number] PRN Administration DKA/HYPERGYCEMIA Protocol 0.1 UNITS/KG/HR Sodium Chloride Confirm 07/21/16 05:02 Sodium Chloride 0.9% 100 Ml Ivpb Administered 07/21/16 05:03 Dose 100 mls @ ud IV .STK-MED ONE Insulin Human Regular 7 unit 07/20/16 03:29 07/20/16 03:31 Novolin R IV 07/20/16 03:30 7 unit STAT ONE Administration Insulin Human Regular 7 unit 07/20/16 03:31 07/20/16 03:32 Novolin R IV 07/20/16 03:32 Not Given STAT ONE Insulin Human Regular Confirm 07/20/16 03:29 Novolin R Administered 07/20/16 03:30 Dose 1 unit .ROUTE .STK-MED ONE Insulin Human Regular Confirm 07/20/16 03:46 Novolin R Administered 07/20/16 03:47 Dose 1 unit .ROUTE .STK-MED ONE Insulin Human Regular Confirm 07/21/16 05:02 Novolin R Administered 07/21/16 05:03 Dose 1 unit .ROUTE .STK-MED ONE Promethazine HCl 25 mg 07/20/16 02:54 07/20/16 03:06 Phenergan 25 Mg Inj IV 07/20/16 02:55 25 mg STAT ONE Administration Promethazine HCl Confirm 07/20/16 03:00 Phenergan 25 Mg Inj Administered 07/20/16 03:01 Dose 25 mg .ROUTE .STK-MED ONE Intake & Output (Last 24 hours) 07/20/16 07/21/16 07/22/16 07/23/16 11:59 11:59 11:59 11:59 Intake Total 218 4246 5801 600 Output Total 900 2710 1200 Balance 218 3346 3091 -600 Weight 64.093 kg 64.093 kg Laboratory Results (Last 24 hours) 07/22/16 07/22/16 07/22/16 Unknown 09:47 09:47 WBC 9.1 RBC 3.45 L Hgb 10.0 L Hct 31.5 L MCV 91.3 MCH 28.9 MCHC 31.7 L RDW 14.2 H Plt Count 208 MPV 9.2 Gran % 62.4 Lymphocytes % 22.9 L Monocytes % 9.1 Eosinophils % 5.1 H Basophils % 0.5 Basophils # 0.05 Sodium 146 H Potassium 3.7 Chloride 113 H Carbon Dioxide 23.0 Anion Gap 13.7 BUN 5 L Creatinine 0.64 Estimated GFR > 60 Glucose 120 H Calcium 8.1 L Magnesium 1.3 L Total Bilirubin 0.2 AST 130 H ALT 81 H Alkaline Phosphatase 135 H Serum Total Protein 5.4 L Albumin 1.9 L Urine Opiates Level NEG. Ur Methadone NEG. Urine Barbiturates NEG. Ur Phencyclidine (PCP) NEG. Urine Amphetamine NEG. U Benzodiazepine Level POS. Urine Cocaine NEG. Urine Marijuana (THC) NEG. Orders (Last 24 hours) Category Date Time Status tele-mental [Psychiatric Evaluation] STAT Care 07/22/16 09:20 Active CBC W DIFF Urgent Lab 07/22/16 09:47 Completed CMP Urgent Lab 07/22/16 09:47 Completed MAG [MAGNESIUM] Urgent Lab 07/22/16 09:47 Completed Urine Triage Profile Stat Lab 07/22/16 Completed Alprazolam 1 mg [Xanax 1 mg] Med 07/21/16 17:30 Active 1 mg PO TID Oxygen NASAL CANNULA 2 lpm RT 07/22/16 00:41 Active Patient Care Notes (Last 24 hours) 07/22/16 14:54 Nursing Note by Shalini Frank 1431 dexcom is still not reading pt's glucose, pt got home from his job out of town and assisted with changing sensor, no reading at this time. All supplies needed at bedside, pt with assistance of nurse applied personal insulin pump. Basal rate of 0.9units/hr per home dose. insulin gtt turned off at this time. Initialized on 07/22/16 14:54 - END OF NOTE 07/22/16 11:33 Nursing Note by Shalini Frank 0900 pt's self checking accu check monitor states it is not functioning. supplies needed for this are not with pt. Pt called one of her daughters to bring in later today. Pt first stated she didn't know how to fix it but then said she did. pt remains oriented at this time. Initialized on 07/22/16 11:33 - END OF NOTE 07/22/16 10:25 (created 07/22/16 15:25) Case Management Note by Aubrie Kennedy CONTINUES TO PLAN TO RETURN HOME TO PRE EPISODIC LEVEL OF FNX. DR. ARIAS HAS ORDERED TELEMENTAL, DISCUSSED WITH PT, REPORTS THAT SHE WILL AGREE TO IT AND ALSO TO AM LABS. APPARENTLY SHE HAD REFUSED MORNING LABS EARLIER. CONTINUES TO DECLINE NEEDS FOR DISCHARGE. PLAN TO RETURN HOME WITH , INDEPENDENT WITH ALL ADL'S. WILL CONTINUE TO FOLLOW AND ASSESS FOR ALL DC NEEDS. Initialized on 07/22/16 15:25 - END OF NOTE 07/22/16 00:48 Respiratory Note by Arnulfo Clements NURSING CALLED TO NOTE THAT PT SPO2 HAS SLOWING BEEN TRENDING DOWNWARD THIS BREN. PT SATS HAD BEEN HIGH 98% ON RA BUT OVER THE COURSE OF THE BREN IT HAS BEEN SLOWLY GOING DOWN. PT WAS 91% ON RA W/ RESP OF 30 (WHICH HAS BEEN NORM FOR HER DURING HER STAY). I PLACED PT ON 2LPM VIA NC AND SATS CAME UP TO 95%. Initialized on 07/22/16 00:48 - END OF NOTE 07/21/16 22:00 (created 07/21/16 22:23) Nursing Note by Brit Willis Spoke with Dr. Arias about patients insulin pump is off and she is needing parts to get it going again. Her daughter has been here twice tonight with different parts trying to get the pump set back up on her. they could not get the insulin pump to work. Orders to start insulin gtt and run it at 2 units and hour tonight and to do accuchecks Q4 hours tonight received form Dr. Arias. Initialized on 07/21/16 22:23 - END OF NOTE 07/21/16 17:30 Nursing Note by Nelda Valentine PT FSBS rechecked now 73 given more juice crackers and peanut butter. PT insulin pump reading 53 in contrast to hospital glucose monitor stating 73 pt asked to recalibrate monitor. pt fumbled with own lancet required assistance by rn in performing fsbs Addendum entered by Nelda Valentine 07/21/16 17:32: DONE AT 1540 Initialized on 07/21/16 17:30 - END OF NOTE Code(s): E13.10 - OTH DIABETES MELLITUS WITH KETOACIDOSIS WITHOUT COMA (2) Diabetes mellitus, insulin dependent (IDDM), uncontrolled Current Visit: Yes Status: Acute Qualifiers: Diabetes mellitus complication status: with ketoacidosis Diabetes mellitus complication detail: without coma Qualified Code(s): E10.10 - Type 1 diabetes mellitus with ketoacidosis without coma Code(s): E10.65 - TYPE 1 DIABETES MELLITUS WITH HYPERGLYCEMIA
[2016-07-23] MEDS: MORPHINE SULFATE 2 MG INJ IV PRN (00:34)
[2016-07-23] MEDS: Sodium Chloride 0.9% 1000 ML 1,000 ML IV SCH (00:37)
[2016-07-23 09:03] VITALS: BP 123/73; PULSE 74; O2SAT 95
--- NOTE | 2016-07-23 17:59 | PCM.DS ---
Discharge Summary Date of Admission: 07/20/16 04:51 Admitting Physician: LYUDMILA ARIAS Primary Care Provider: LYUDMILA ARIAS Allergies Allergies orphenadrine citrate [From Norflex] Allergy (Intermediate, Verified 07/20/16 02: 50) severe vomiting codeine Allergy (Verified 07/20/16 02:50) itching nausea and vomiting hydrocodone bitartrate [From [place]] Adverse Reaction (Mild, Verified 07/20/16 02 :50) nausea vomiting levofloxacin [From Levaquin] Adverse Reaction (Mild, Verified 07/20/16 02:50) Nausea and Vomiting Hospital Summary - Hospital Course Hospital Course: Chief Complaint Diagnosis c/o nausea nad vomiting for 1-2 days Allergies Allergy/AdvReac Type Severity Reaction Status Date / Time orphenadrine citrate Allergy Intermediate Verified 07/20/16 02:50 [From Norflex] codeine Allergy Verified 07/20/16 02:50 hydrocodone bitartrate AdvReac Mild Verified 07/20/16 02:50 [From [place]] levofloxacin [From Levaquin] AdvReac Mild Nausea and Verified 07/20/16 02:50 Vomiting Vital Signs (Last 24 hours) Temp Pulse Resp BP Pulse Ox 07/23/16 08:00 98.4 F 74 16 123/73 95 07/23/16 03:56 82 07/23/16 03:55 98.1 F 79 20 111/75 94 L 07/23/16 00:01 70 07/23/16 00:00 70 22 117/68 95 07/22/16 21:30 97 07/22/16 20:00 98.6 F 76 17 123/70 98 Current Medications Discontinued Medications Generic Name Dose Route Start Last Admin Trade Name Freq PRN Reason Stop Dose Admin Alprazolam 1 mg 07/21/16 17:30 07/22/16 22:08 Xanax 1 Mg PO 08/20/16 17:29 1 mg TID NISSA Administration Sodium Chloride 1,000 mls @ 999 mls/hr 07/20/16 02:54 07/20/16 03:09 Sodium Chloride 0.9% 1000 Ml IV 07/20/16 03:54 999 mls/hr .Q1H1M STA Administration Sodium Chloride 1,000 mls @ 999 mls/hr 07/20/16 02:58 07/20/16 03:13 Sodium Chloride 0.9% 1000 Ml IV 07/20/16 03:58 999 mls/hr .Q1H1M STA Administration Sodium Chloride Confirm 07/20/16 03:00 Sodium Chloride 0.9% 1000 Ml Administered 07/20/16 03:01 Dose 1,000 mls @ ud .ROUTE .STK-MED ONE Sodium Chloride Confirm 07/20/16 03:12 Sodium Chloride 0.9% 1000 Ml Administered 07/20/16 03:13 Dose 1,000 mls @ ud .ROUTE .STK-MED ONE Sodium Chloride Confirm 07/20/16 03:30 Sodium Chloride 0.9% 100 Ml Ivpb Administered 07/20/16 03:31 Dose 100 mls @ ud IV .STK-MED ONE Insulin Human Regular 100 101 mls @ 0 mls/hr 07/20/16 03:45 07/20/16 04:39 units/ Sodium Chloride IV 08/19/16 03:44 5 mls/hr .Q0M PRN Administration HYPERGLYCEMIA Protocol Titrate Sodium Chloride 1,000 mls @ 150 mls/hr 07/20/16 05:08 07/21/16 10:47 Sodium Chloride 0.9% 1000 Ml IV 08/19/16 05:07 150 mls/hr .Q6H40M NISSA Administration Insulin Human Regular 100 101 mls @ 6.47 mls/hr 07/21/16 05:04 07/21/16 05:10 units/ Sodium Chloride IV 08/20/16 05:03 5 mls/hr .[id number] PRN Administration DKA/HYPERGYCEMIA Protocol 0.1 UNITS/KG/HR Insulin Human Regular 100 101 mls @ 5.05 mls/hr 07/21/16 05:53 07/21/16 22:06 units/ Sodium Chloride IV 08/20/16 05:03 5.05 mls/hr .Q20H PRN Administration DKA/HYPERGYCEMIA Protocol 5 UNITS/HR Sodium Chloride Confirm 07/21/16 05:02 Sodium Chloride 0.9% 100 Ml Ivpb Administered 07/21/16 05:03 Dose 100 mls @ ud IV .STK-MED ONE Ceftriaxone Sodium/Dextrose 50 mls @ 100 mls/hr 07/21/16 12:30 07/22/16 10:12 Rocephin 1 Gm-D5w 50 Ml Bag IV 08/20/16 12:29 100 mls/hr Q24H10 NISSA Administration Sodium Chloride 1,000 mls @ 200 mls/hr 07/21/16 08:15 07/23/16 00:37 Sodium Chloride 0.9% 1000 Ml IV 08/20/16 08:14 200 mls/hr .Q5H NISSA Administration Insulin Aspart 0 unit 07/20/16 12:45 Novolog Insulin SQ 08/19/16 12:44 UD PRN HYPERGLYCEMIA Insulin Human Regular 7 unit 07/20/16 03:29 07/20/16 03:31 Novolin R IV 07/20/16 03:30 7 unit STAT ONE Administration Insulin Human Regular 7 unit 07/20/16 03:31 07/20/16 03:32 Novolin R IV 07/20/16 03:32 Not Given STAT ONE Insulin Human Regular Confirm 07/20/16 03:29 Novolin R Administered 07/20/16 03:30 Dose 1 unit .ROUTE .STK-MED ONE Insulin Human Regular Confirm 07/20/16 03:46 Novolin R Administered 07/20/16 03:47 Dose 1 unit .ROUTE .STK-MED ONE Insulin Human Regular Confirm 07/21/16 05:02 Novolin R Administered 07/21/16 05:03 Dose 1 unit .ROUTE .STK-MED ONE Morphine Sulfate 2 mg 07/21/16 12:28 07/23/16 00:34 Morphine Sulfate 2 Mg Inj IV 07/26/16 12:27 2 mg Q4H PRN PRN Administration PAIN Promethazine HCl 25 mg 07/20/16 02:54 07/20/16 03:06 Phenergan 25 Mg Inj IV 07/20/16 02:55 25 mg STAT ONE Administration Promethazine HCl Confirm 07/20/16 03:00 Phenergan 25 Mg Inj Administered 07/20/16 03:01 Dose 25 mg .ROUTE .STK-MED ONE Promethazine HCl 25 mg 07/20/16 05:08 07/20/16 11:18 Phenergan 25 Mg Inj IV 08/19/16 05:07 25 mg Q6H PRN PRN Administration NAUSEA/VOMITING Intake & Output (Last 24 hours) 07/21/16 07/22/16 07/23/16 07/24/16 11:59 11:59 11:59 11:59 Intake Total 4246 5801 6175 Output Total 900 4804 240 Balance 3341 5578 8319 Weight 64.093 kg Orders (Last 24 hours) Category Date Time Status Discharge Routine Discharge 07/23/16 07:30 Ordered Patient is feeling much better, wants to go home. advised to continue insulin pump as per protocol. follow up with Dr Brii Arias in 1 week - Vitals & Intake/Output Vital Signs: Vital Signs Temperature 98.4 F 07/23/16 08:00 Pulse Rate 74 07/23/16 08:00 Respiratory Rate 16 07/23/16 08:00 Blood Pressure 123/73 07/23/16 08:00 O2 Sat by Pulse Oximetry 95 07/23/16 08:00 Oxygen-Last Documented O2 Percentage 2 Liters = 28% Intake & Output: Intake & Output 07/21/16 07/22/16 07/23/16 07/24/16 11:59 11:59 11:59 11:59 Intake Total 4246 5801 6175 Output Total 900 4520 2400 Balance 3341 5057 5952 Weight 64.093 kg - Lab Result Diagrams: 07/22/16 09:47 07/22/16 09:47 Lab Results-Last 24 Hrs: Accuchecks Date 07/23/16 Date 07/23/16 Date 07/22/16 Time 06:50 Time 06:45 Time 21:59 Accucheck Value: 239 Accucheck Value: 230 Accucheck Value: 180 Micro Results-Entire Visit: Accuchecks Date 07/23/1607/23/1607/22/16 Time 06:50 Time 06:45 Time 21:59 Accucheck Value: 239 Accucheck Value: 230 Accucheck Value: 180 - Procedures and Test Procedures and Tests throughout Hospitalization: Therapy Orders & Screens 07/20/16 05:40 Smoking Cessation Education ONCE Comment: Diagnosis: DKA Smoking Status: Current every day smoker How long have you smoked: 30 Have you smoked in the past 12 months: No Approximately how many cigarettes per day: 1PPD Do you dip or chew tobacco: No 07/22/16 00:41 Oxygen NASAL CANNULA 2 lpm Comment: Diagnosis: c/o nausea nad vomiting for 1-2 days Discharge Exam General Appearance: no apparent distress, alert Neurologic Exam: alert, oriented x 3, cooperative, normal mood/affect, nml cerebellar function, sensation nml, No motor deficits Skin Exam: normal color, warm, dry Eye Exam: PERRL, EOMI, eyes nml inspection Ears, Nose, Throat Exam: normal ENT inspection, pharynx normal, moist mucous membranes Neck Exam: normal inspection, non-tender, supple, full range of motion Respiratory Exam: normal breath sounds, lungs clear, No respiratory distress Cardiovascular Exam: regular rate/rhythm, normal heart sounds Gastrointestinal/Abdomen Exam: soft, No tenderness, No mass Extremity Exam: normal inspection, normal range of motion Back Exam: normal inspection, normal range of motion, No CVA tenderness, No vertebral tenderness Pelvic Exam: deferred Rectal Exam: deferred Final Diagnosis/Problem List - Final Discharge Diagnosis/Problem (1) DKA (diabetic ketoacidoses) Status: Resolved (2) Diabetes mellitus, insulin dependent (IDDM), uncontrolled Status: Chronic - Discharge Discharge Date: 07/23/16 Disposition: Home, Self-Care Condition: Good Prescriptions: No Action Alprazolam 1 mg [Xanax 1 mg] 1 mg PO TID Vitamin B Complex 1 each PO DAILY Vitamin E 400 Units [Vitamin E 400 UNIT SOFTGEL] 400 unit PO DAILY Promethazine HCl 25 mg [Phenergan 25 mg] 25 mg PO Q4HPRN PRN PRN Reason: Nausea Insulin Aspart [NovoLOG Insulin] 0 units SQ TIDWM Instructions: Ketoacidosis, Quit Smoking Follow up with: LYUDMILA ARIAS MD [Primary Care Provider] - Call for Appointment Forms: Discharge Instructions, Work/School Release Form
== END 2016-07-23 07:57 | disposition home or self-care (01) | DRG 639 ==
LOC: ED 02:37 → ICU 04:51
PROVIDERS: ADMIT General Practice; ATTEND General Practice
DX: E10.10 Type 1 diabetes mellitus with ketoacidosis without coma (principal); Z79.4 Long term (current) use of insulin; J44.9 Chronic obstructive pulmonary disease, unspecified; E10.65 Type 1 diabetes mellitus with hyperglycemia; F32.9 Major depressive disorder, single episode, unspecified; I25.10 Atherosclerotic heart disease of native coronary artery without angina pectoris; K21.9 Gastro-esophageal reflux disease without esophagitis; F41.9 Anxiety disorder, unspecified; Z72.0 Tobacco use
CPT/HCPCS: 36000; 36415; 36600; 74176; 80048; 80053; 80076; 80307; 80320; 81000; 82375; 82803; 82805; 82962; 83605; 83735; 83986; 85025; 85027; 90791; 93005; 93041; 96360; 96361; 96365; 96374; 96375; 99285; J0696; J1815; J2270; J2550; P9612; Q3014; A9270-GY

== ENCOUNTER 2016-11-14 20:00 | Observation (INO) | payer OTHER ==
[2016-11-14] MEDS ORDERED: Sodium Chloride 0.9% 1000 ML 1,000 ML IV STA (20:45)
[2016-11-14] MEDS ORDERED: Zofran 4 MG/2 ML VIAL IV ONE (20:47)
[2016-11-14] MEDS ORDERED: Nitrostat 0.4 MG (ED) SL ONE ×2 (20:47→21:09)
--- NOTE | 2016-11-14 20:49 | ERPHSYRPT ---
- History of Present Illness Time Seen by Provider: 11/14/16 20:38 Historian: patient Exam Limitations: clinical condition Patient Subjective Stated Complaint: pt states her blood sugar has been high all day and she hasnt been able to get it down. states she hasnt eaten anything all day. also c/o chest heaviness and dizziness Triage Nursing Assessment: pt alert and oriented, answers questions approp. respirations nonlabored, slight sob noted. pt ambulatory with slightly unsteady gait noted. insulin pump with site to lt abd noted- wnl. Physician History: PATIENT WITH HISTORY OF TYPE 1 DIABETES, CORONARY ARTERY DISEASE COMPLAINS OF ELEVATED GLUCOSE ALL DAY ASSOCAITED WITH DIZZINESS AND SUBSTERNAL CHEST PRESSURE. DENIES COUGH, DYSPNEA, DIAPHORESIS. HAS HAD CARDIAC CATHERIZATION X 2 IN THE PAST. Timing/Duration: today Quality: pressure Location: substernal Chest Pain Radiation: no radiation Severity of Pain-Max: moderate Severity of Pain-Current: mild Modifying Factors: Improves With: nothing Associated Symptoms: dizziness Prior Chest Pain/Cardiac Workup: cardiac cath Nitro Today/Relief: no nitro taken today Aspirin Treatment Today: 81 mg x 4, provided by ED Allergies/Adverse Reactions: orphenadrine citrate [From Norflex] Allergy (Intermediate, Verified 11/14/16 20: 54) severe vomiting codeine Allergy (Verified 11/14/16 20:54) itching nausea and vomiting hydrocodone bitartrate [From [place]] Adverse Reaction (Mild, Verified 11/14/16 20 :54) nausea vomiting levofloxacin [From Levaquin] Adverse Reaction (Mild, Verified 11/14/16 20:54) Nausea and Vomiting Home Medications: Alprazolam 1 mg [Xanax 1 mg] 1 mg PO TID 09/28/14 [History] Vitamin B Complex 1 each PO DAILY 09/22/15 [History] Vitamin E 400 Units [Vitamin E 400 UNIT SOFTGEL] 400 unit PO DAILY [History] Promethazine HCl 25 mg [Phenergan 25 mg] 25 mg PO Q4HPRN PRN 10/14/15 [ History] Insulin Aspart [NovoLOG Insulin] 0 units SQ TIDWM 06/25/16 [History] Hx Tetanus, Diphtheria Vaccination/Date Given: Yes Hx Influenza Vaccination/Date Given: Yes Hx Pneumococcal Vaccination/Date Given: Yes Immunizations Up to Date: No - Review of Systems Constitutional: No Fever, No Chills Eyes: No Symptoms Ears, Nose, & Throat: No Symptoms Respiratory: No Symptoms, No Cough, No Dyspnea Cardiac: Chest Pain, No Edema, No Syncope Abdominal/Gastrointestinal: No Symptoms, No Abdominal Pain, No Nausea, No Vomiting, No Diarrhea Genitourinary Symptoms: No Symptoms, No Dysuria Musculoskeletal: No Symptoms, No Back Pain, No Neck Pain Skin: No Symptoms, No Rash Neurological: No Dizziness, No Focal Weakness, No Sensory Changes Psychological: No Symptoms Endocrine: No Symptoms All Other Systems: Reviewed and Negative - Past Medical History Pertinent Past Medical History: Yes Neurological History: No Pertinent History ENT History: No Pertinent History Cardiac History: Coronary Artery Disease Respiratory History: COPD Endocrine Medical History: Diabetes Type I Musculoskeletal History: Degenerative Disk Disease, Other GI Medical History: GERD History: Renal Disease Psycho-Social History: Anxiety, Depression Female Reproductive Disorders: No Pertinent History Other Medical History: HAS INSULIN PUMP. cardiac STENT PLACEMENT X 2, back problem, renal failure - Past Surgical History Past Surgical History: Yes Neuro Surgical History: No Pertinent History Cardiac: Cardiac Catheterization, Cardiac Stent Respiratory: No Pertinent History Gastrointestinal: Cholecystectomy Genitourinary: No Pertinent History Musculoskeletal: Other Female Surgical History: Tubal Ligation Other Surgical History: BUNONECTOMY. BACK SURGERY X2 - Social History Smoking Status: Current every day smoker How long have you smoked: 30 Exposure to second hand smoke: Yes Alcohol Use: None Drug Use: none Patient Lives Alone: No Significant Family History: heart disease, diabetes, hypertension - Female History Hx Last Menstrual Period: post Hx Now: No - Nursing Vital Signs Nursing Vital Signs: Initial Vital Signs Temperature 97.2 F Temperature Source Oral Pulse Rate [] 78 Pulse Rate 72 Respiratory Rate 16 Blood Pressure [] 112/65 Pain Intensity 3 - Physical Exam General Appearance: no apparent distress, alert Eye Exam: PERRL/EOMI, eyes nml inspection Ears, Nose, Throat Exam: normal ENT inspection, moist mucous membranes Neck Exam: normal inspection, non-tender, supple, full range of motion Respiratory Exam: normal breath sounds, lungs clear, No respiratory distress Cardiovascular Exam: regular rate/rhythm, normal heart sounds Gastrointestinal/Abdomen Exam: soft, normal bowel sounds (NONTENDER), No tenderness, No mass Back Exam: normal inspection, No CVA tenderness, No vertebral tenderness Extremity Exam: normal inspection, normal range of motion Neurologic Exam: alert, oriented x 3, cooperative, normal mood/affect, sensation nml, No motor deficits Skin Exam: normal color, warm, dry SpO2 Interpretation: normal SpO2: 100 Oxygen Delivery: Room Air - Course EKG Interpreted by Me: RATE, Sinus Rhythm, NORMAL AXIS, Non-specific ST Changes - Radiology Exams Chest X-ray Interpretation: Interpreted by me (COPD, HYPERINFLATED LUNGS) Ordered Tests: Active Orders 24 hr Category Date Time Status Bedrest with BRP/BSC ROUTINE Activity 11/14/16 22:32 Ordered Accucheck ACHS Care 11/14/16 22:31 Ordered Accucheck STAT Care 11/14/16 20:45 Active Admission/Status Order ROUTINE Care 11/14/16 22:32 Ordered Call Admit Doctor for Orders ROUTINE Care 11/14/16 22:31 Ordered Stain Wiper STAT Care 11/14/16 20:45 Active Clean Catch Urine Specimen STAT Care 11/14/16 20:45 Active Code Status Order ROUTINE Care 11/14/16 22:32 Ordered EKG-ER Only STAT Care 11/14/16 20:45 Active IV Care Q6H Care 11/14/16 22:32 Ordered IV Insertion STAT Care 11/14/16 20:45 Active Implement Chest Pain Pathway ROUTINE Care 11/14/16 22:32 Ordered Intake and Output Q12H Care 11/14/16 22:31 Ordered Oxygen-ED Only NASAL CANNULA 2 lpm Care 11/14/16 20:45 Active Otis Hernandez, Apply ROUTINE Care 11/14/16 22:32 Ordered Telemetry ROUTINE Care 11/14/16 22:32 Ordered Vital Signs Q4H Care 11/14/16 22:31 Ordered Weight,Daily 0600 Care 11/14/16 22:32 Ordered 1800 Calorie ADA Diet 11/14/16 Breakfast Ordered CHEST 1 VIEW (PORTABLE) Stat Exams 11/14/16 20:45 Taken CBC W DIFF Stat Lab 11/14/16 20:55 Completed CMP Stat Lab 11/14/16 20:55 Completed LIPID PROFILE AM.LAB Lab 11/15/16 04:00 Ordered MAGNESIUM Stat Lab 11/14/16 20:55 Completed PROTIME WITH INR Stat Lab 11/14/16 20:55 Completed TROPONIN Q3H Lab 11/14/16 20:55 Completed TROPONIN Q3H Lab 11/15/16 00:00 Ordered TROPONIN Q3H Lab 11/15/16 03:00 Ordered TROPONIN Q3H Lab 11/15/16 06:00 Ordered TROPONIN Q3H Lab 11/15/16 09:00 Ordered UA W/RFX UR CULTURE Stat Lab 11/14/16 20:46 Ordered EKG Q8HX2,QAMX3,PRN RT 11/14/16 22:32 Ordered Pulse Oximetry Q4H RT 11/14/16 22:32 Ordered Transfer Order Routine Transfer 11/14/16 22:31 Ordered Medication Summary Generic Name Dose Route Start Last Admin Trade Name Freq PRN Reason Stop Dose Admin Sodium Chloride 1,000 mls @ 500 mls/hr 11/14/16 20:45 11/14/16 21:11 Sodium Chloride 0.9% 1000 Ml IV 11/14/16 22:44 500 mls/hr .Q2H STA Administration Discontinued Medications Generic Name Dose Route Start Last Admin Trade Name Freq PRN Reason Stop Dose Admin Sodium Chloride Confirm 11/14/16 21:09 Sodium Chloride 0.9% 1000 Ml Administered 11/14/16 21:10 Dose 1,000 mls @ ud .ROUTE .STK-MED ONE Insulin Human Regular 6 unit 11/14/16 21:57 11/14/16 22:07 Novolin R IV 11/14/16 21:58 6 unit STAT ONE Administration Insulin Human Regular Confirm 11/14/16 22:04 Novolin R Administered 11/14/16 22:05 Dose 6 unit .ROUTE .STK-MED ONE Nitroglycerin 0.4 mg 11/14/16 20:47 11/14/16 21:43 Nitrostat 0.4 Mg (Ed) SL 11/14/16 20:48 Not Given STAT ONE Nitroglycerin 1 gm 11/14/16 21:11 11/14/16 21:12 Nitro-Bid 2% Ud Packets TOP 11/14/16 21:12 1 gm STAT ONE Administration Nitroglycerin Confirm 11/14/16 21:09 Nitrostat 0.4 Mg (Ed) Administered 11/14/16 21:10 Dose 0.4 mg SL .STK-MED ONE Nitroglycerin Confirm 11/14/16 21:11 Nitro-Bid 2% Ud Packets Administered 11/14/16 21:12 Dose 1 gm .ROUTE .STK-MED ONE Ondansetron HCl 4 mg 11/14/16 20:47 11/14/16 21:11 Zofran 4 Mg/2 Ml Vial IV 11/14/16 20:48 4 mg STAT ONE Administration Ondansetron HCl Confirm 11/14/16 21:09 Zofran 4 Mg/2 Ml Vial Administered 11/14/16 21:10 Dose 4 mg .ROUTE .STK-MED ONE Lab/Rad Data: Laboratory Result Diagrams 11/14/16 20:55 11/14/16 20:55 Laboratory Results 11/14/16 11/14/16 11/14/16 Range/Units 20:55 20:55 20:55 WBC (4.0-10.5) K/mm3 RBC (4.1-5.4) M/mm3 Hgb (12.0-16.0) gm/dl Hct (35-47) % MCV (78-100) fl MCH (26-32) pg MCHC (32-36) g/dl RDW (11.5-14.0) % Plt Count (150-450) K/mm3 MPV (6-9.5) fl Gran % (36.0-66.0) % Lymphocytes % (24.0-44.0) % Monocytes % (0.0-12.0) % Eosinophils % (0.00-5.0) % Basophils % (0.0-0.4) % Basophils # (0-0.4) INR 0.94 (0.8-3.0) Sodium 132 L (136-145) mEq/L Potassium 4.7 (3.5-5.1) mEq/L Chloride 94 L (98-107) mEq/L Carbon Dioxide 22.1 (21-32) mEq/L Anion Gap 20.6 H (5-15) MEQ/L BUN 33 H (9-20) mg/dL Creatinine 1.43 H (0.55-1.30) mg/dl Estimated GFR 40 ML/MIN Glucose 480 H (70-110) MG/DL Calcium 10.2 H (8.5-10.1) mg/dL Magnesium 1.7 L (1.8-2.4) mg/dL Total Bilirubin 0.50 (0.2-1.0) mg/dL AST 20 (15-37) U/L ALT 21 (12-78) U/L Alkaline Phosphatase 119 H (46-116) U/L Troponin I < 0.017 (0.000-0.056) ng/ml Serum Total Protein 7.7 (6.4-8.2) gm/dL Albumin 3.6 (3.4-5.0) g/dL 11/14/16 Range/Units 20:55 WBC 9.3 (4.0-10.5) K/mm3 RBC 5.24 (4.1-5.4) M/mm3 Hgb 15.1 (12.0-16.0) gm/dl Hct 45.5 (35-47) % MCV 86.8 (78-100) fl MCH 28.8 (26-32) pg MCHC 33.2 (32-36) g/dl RDW 14.3 H (11.5-14.0) % Plt Count 402 (150-450) K/mm3 MPV 9.5 (6-9.5) fl Gran % 60.5 (36.0-66.0) % Lymphocytes % 29.7 (24.0-44.0) % Monocytes % 7.6 (0.0-12.0) % Eosinophils % 1.6 (0.00-5.0) % Basophils % 0.6 (0.0-0.4) % Basophils # 0.06 (0-0.4) INR (0.8-3.0) Sodium (136-145) mEq/L Potassium (3.5-5.1) mEq/L Chloride (98-107) mEq/L Carbon Dioxide (21-32) mEq/L Anion Gap (5-15) MEQ/L BUN (9-20) mg/dL Creatinine (0.55-1.30) mg/dl Estimated GFR ML/MIN Glucose (70-110) MG/DL Calcium (8.5-10.1) mg/dL Magnesium (1.8-2.4) mg/dL Total Bilirubin (0.2-1.0) mg/dL AST (15-37) U/L ALT (12-78) U/L Alkaline Phosphatase (46-116) U/L Troponin I (0.000-0.056) ng/ml Serum Total Protein (6.4-8.2) gm/dL Albumin (3.4-5.0) g/dL - Progress Progress Note: 11/14/16 21:27 PATIENT GIVEN IV FLUIDS NORMAL SALLINE 500ML/HR, NITROPASTE 1" ANTERIOR CHEST WALL, PATIENT ADMINISTERED HUMULIN INSULIN REGULAR 6 UNITS IVP 11/14/16 22:24, 11/14/16 22:29 Discussed with : Forrest (DISCUSSED WITH DR ARIAS AT 2225 FOR ADMISSION) - Departure Time of Disposition: 22:35 Departure Disposition: Observation Clinical Impression: ACUTE CHEST PAIN, HYPERGLYCEMIA Condition: Stable Critical Care Time: No Referrals: LYUDMILA ARIAS MD [Primary Care Provider] -
[2016-11-14] MEDS ORDERED: Zofran 4 MG/2 ML VIAL ONE (21:09)
[2016-11-14] MEDS ORDERED: Sodium Chloride 0.9% 1000 ML 1,000 ML ONE (21:09)
[2016-11-14] MEDS ORDERED: NITRO-BID 2% UD PACKETS TOP ONE (21:11)
[2016-11-14] MEDS ORDERED: NITRO-BID 2% UD PACKETS ONE (21:11)
[2016-11-14 21:23] LABS: BASOPHIL % 0.6 % (0.0-0.4); Eosinophil % 1.6 % (0.00-5.0); Granulocytes % 60.5 % (36.0-66.0); Lymphocytes % 29.7 % (24.0-44.0); Mean Cell Volume 86.8 fl (78-100); Mean Corpuscular Hemoglobin 28.8 pg (26-32); Mean Platelet Volume 9.5 fl (6-9.5); Monocytes % 7.6 % (0.0-12.0); Platelet Count 402 K/mm3 (150-450); Red Blood Count 5.24 M/mm3 (4.1-5.4); Red Cell Distribution Width 14.3 % (11.5-14.0); White Blood Count 9.3 K/mm3 (4.0-10.5)
[2016-11-14 21:37] LABS: INR 0.94 (0.8-3.0); PROTIME 10.6 SECONDS (9.95-12.35)
[2016-11-14 21:52] LABS: ALBUMIN 3.6 g/dL (3.4-5.0); ANION GAP 20.6 MEQ/L (5-15); BILIRUBIN,TOTAL 0.5 mg/dL (0.2-1.0); Carbon Dioxide 22.1 mEq/L (21-32); MAGNESIUM 1.7 mg/dL (1.8-2.4); Potassium 4.7 mEq/L (3.5-5.1); Total Protein 7.7 gm/dL (6.4-8.2)
[2016-11-14] MEDS ORDERED: NovoLIN R IV ONE (21:57)
[2016-11-14] MEDS ORDERED: NovoLIN R ONE (22:04)
[2016-11-14] MEDS ORDERED: TYLENOL 325 MG PO PRN (22:31)
[2016-11-14] MEDS ORDERED: MILK OF MAGNESIA 30 ML PO PRN (22:31)
[2016-11-14] MEDS ORDERED: Senokot-S Tablet PO PRN (22:31)
[2016-11-14] MEDS ORDERED: MAALOX ES 30 ML UNIT DOSE PO PRN (22:31)
[2016-11-14] MEDS ORDERED: MORPHINE SULFATE 2 MG INJ IV PRN (22:31)
[2016-11-14] MEDS ORDERED: Nitrostat 0.4 MG Tablet SL PRN (22:31)
[2016-11-14] MEDS ORDERED: Zofran 4 MG/2 ML VIAL IV PRN (22:31)
[2016-11-14] MEDS ORDERED: Sodium Chloride 0.9% 500 ML 500 ML IV SCH (22:45)
[2016-11-15] MEDS: NovoLOG Insulin SQ PRN ×2 (00:14→07:43)
[2016-11-15] MEDS ORDERED: Sodium Chloride 0.9% 1000 ML 1,000 ML ONE (01:03)
[2016-11-15] MEDS ORDERED: NITRO-BID 2% UD PACKETS TOP SCH (06:00)
[2016-11-15] MEDS ORDERED: Sodium Chloride 0.9% 1000 ML 1,000 ML IV SCH (07:00)
--- NOTE | 2016-11-15 08:15 | PCM.HP ---
History of Present Illness - Chief Complaint Chief Complaint: chest pain for 1 day History of Present Illness: is a 56 year old female patient states her blood sugar has been high all day and she hasnt been able to get it down. states she hasnt eaten anything all day. also c/o chest heaviness and dizziness. - Review of Systems Constitutional: Lethargy, Weakness, No Fever, No Chills Eyes: No Symptoms Ears, Nose, & Throat: No Symptoms Respiratory: No Cough, No Short Of Breath Cardiac: Chest Pain, No Edema, No Syncope Abdominal/Gastrointestinal: No Abdominal Pain, No Nausea, No Vomiting, No Diarrhea Genitourinary Symptoms: No Dysuria Musculoskeletal: No Back Pain, No Neck Pain Skin: No Rash Neurological: No Dizziness, No Focal Weakness, No Sensory Changes Psychological: No Symptoms Endocrine: No Symptoms Hematologic/Lymphatic: No Symptoms Immunological/Allergic: No Symptoms Medications & Allergies Home Medications: Home Medication List Insulin Lispro [Humalog] 9.75 unit SQ UD 11/14/16 [History Confirmed 11/14/16] Metoclopramide HCl [Reglan] 10 mg PO TID 11/14/16 [History Confirmed 11/14/16] PANTOPRAZOLE 40 mg Tablet [Protonix 40MG Tablet] 40 mg PO DAILY 11/14/16 [ History Confirmed 11/14/16] Promethazine HCl 25 mg [Phenergan 25 mg] 25 mg PO Q6HPRN PRN 11/14/16 [ History Confirmed 11/14/16] Allergies/Adverse Reactions: Allergies Allergy/AdvReac Type Severity Reaction Status Date / Time orphenadrine citrate Allergy Intermediate Verified 11/14/16 20:54 [From Norflex] codeine Allergy Verified 11/14/16 20:54 hydrocodone bitartrate AdvReac Mild Verified 11/14/16 20:54 [From [place]] levofloxacin [From Levaquin] AdvReac Mild Nausea and Verified 11/14/16 20:54 Vomiting - Past Medical History Past Medical History: Yes Neurological History: No Pertinent History ENT History: No Pertinent History Cardiac History: Coronary Artery Disease Respiratory History: COPD Endocrine Medical History: Diabetes Type I Musculoskelatal History: Degenerative Disk Disease, Other GI Medical History: GERD History: Renal Disease Pyscho-Social History: Anxiety, Depression Reproductive Disorders: No Pertinent History Comment: HAS INSULIN PUMP. cardiac STENT PLACEMENT X 2, back problem, renal failure - Female History Hx Last Menstrual Period: post Are you now?: No - Past Surgical History Past Surgical History: Yes Neuro Surgical History: No Pertinent History Cardiac History: Cardiac Catheterization, Cardiac Stent Respiratory Surgery: No Pertinent History GI Surgical History: Cholecystectomy Genitourinary Surgical Hx: No Pertinent History Musculskeletal Surgical Hx: Other Female Surgical History: Tubal Ligation Other Surgical History: BUNONECTOMY. BACK SURGERY X2 - Social History Smoking Status: Current every day smoker How long have you smoked: 30 Exposure to second hand smoke: No Alcohol: None Drug Use: none Significant Family History: heart disease, diabetes, hypertension - Physical Exam Vital Signs: Vital Signs - 24 hr Temp Pulse Pulse Resp BP Pulse Ox 11/15/16 08:00 97.8 F 72 18 103/59 91 L 11/15/16 04:00 97.9 F 80 16 110/58 91 L 11/14/16 23:21 97.6 F 74 18 125/65 94 L 11/14/16 22:36 100 11/14/16 21:50 16 11/14/16 21:44 72 16 112/65 100 11/14/16 20:17 78 11/14/16 20:07 97.2 F 91 H 22 125/72 100 General Appearance: no apparent distress, alert Neurologic Exam: alert, oriented x 3, cooperative, normal mood/affect, nml cerebellar function, nml station & gait, sensation nml, No motor deficits Eye Exam: PERRL/EOMI, eyes nml inspection Ears, Nose, Throat Exam: normal ENT inspection, TMs normal, pharynx normal, moist mucous membranes Neck Exam: normal inspection, non-tender, supple, full range of motion Respiratory Exam: normal breath sounds, lungs clear, No respiratory distress Cardiovascular Exam: regular rate/rhythm, normal heart sounds, normal peripheral pulses Gastrointestinal/Abdomen Exam: soft, normal bowel sounds, No tenderness, No mass Back Exam: normal inspection, normal range of motion, No CVA tenderness, No vertebral tenderness Extremity Exam: normal inspection, normal range of motion, pelvis stable Skin Exam: normal color, warm, dry, No rash Lymphatic Exam: No adenopathy Results - Labs Lab/Micro Results: Accuchecks Accucheck Value: 301 Lab Results-Last 24 Hours 11/15/16 11/15/16 11/15/16 Range/Units 00:47 03:17 06:10 Troponin I < 0.017 < 0.017 < 0.017 (0.000-0.056) ng/ml Triglycerides (30-200) mg/dL Cholesterol (100-200) mg/dL LDL Cholesterol (5-99) mg/dL HDL Cholesterol (35-60) mg/dL Heart Disease Risk Ratio 11/15/16 Range/Units 06:10 Troponin I (0.000-0.056) ng/ml Triglycerides 120 (30-200) mg/dL Cholesterol 174 (100-200) mg/dL LDL Cholesterol 108 H (5-99) mg/dL HDL Cholesterol 41 (35-60) mg/dL Heart Disease Risk Ratio 4.2 Accuchecks Accucheck Value: 301 - Other Procedures and Tests Respiratory Therapy 11/16/16 05:00 EKG DAILY 11/17/16 05:00 EKG DAILY 11/18/16 05:00 EKG DAILY Assessment/Plan (1) Chest pain Current Visit: Yes Status: Acute Code(s): R07.9 - CHEST PAIN, UNSPECIFIED (2) Diabetes mellitus, insulin dependent (IDDM), uncontrolled Current Visit: No Status: Chronic Qualifiers: Code(s): E10.65 - TYPE 1 DIABETES MELLITUS WITH HYPERGLYCEMIA
[2016-11-15] MEDS ORDERED: PHENERGAN 25 MG PO PRN (09:29)
[2016-11-15] MEDS ORDERED: INSULIN LISPRO SQ SCH (09:30)
--- NOTE | 2016-11-15 09:33 | XRAY ---
Indication: Chest pain/heaviness. High blood sugar. Comparison: June 25, 2016. Portable chest again demonstrates hyperinflated clear lungs with normal heart. Bony thorax intact with mild thoracolumbar scoliosis.
[2016-11-15] MEDS ORDERED: Ecotrin 325 MG PO SCH (10:00)
[2016-11-15] MEDS ORDERED: Protonix 40MG Tablet PO SCH (10:00)
[2016-11-15] MEDS ORDERED: PATIENT OWN MEDICATION IJ SCH (10:00)
[2016-11-15] MEDS ORDERED: Reglan 10 MG PO SCH (10:00)
[2016-11-15 12:17] VITALS: BP 119/63; PULSE 76; O2SAT 92
== END 2016-11-15 14:00 | disposition home or self-care (01) ==
LOC: ED 20:00 → MED SURG 22:56
PROVIDERS: ADMIT General Practice; ATTEND General Practice
DX: R07.89 Other chest pain (principal); E10.65 Type 1 diabetes mellitus with hyperglycemia; Z79.4 Long term (current) use of insulin; R06.02 Shortness of breath; Z79.899 Other long term (current) drug therapy
CPT/HCPCS: 36000; 36415; 71010; 80053; 80061; 82962; 83036; 83721; 83735; 84484; 85025; 85610; 93005; 93041; 93268; 96360; 96361; 96374; 99285; G0378; J2405; A9270-GY

== ENCOUNTER 2017-04-13 16:32 | Observation (INO) | payer OTHER ==
[2017-04-13] MEDS ORDERED: Sodium Chloride 0.9% 1000 ML 1,000 ML IV STA (18:07)
[2017-04-13] MEDS ORDERED: Sodium Chloride 0.9% 1000 ML 1,000 ML IV SCH ×2 (18:15→19:15)
[2017-04-13 18:40] LABS: Mean Cell Volume 93.5 fl (78-100); Mean Platelet Volume 9.3 fl (6-9.5); Platelet Count 289 K/mm3 (150-450); Red Blood Count 4.77 M/mm3 (4.1-5.4); Red Cell Distribution Width 14.9 % (11.5-14.0); White Blood Count 11.2 K/mm3 (4.0-10.5)
[2017-04-13 18:50] LABS: ANION GAP 13.1 MEQ/L (5-15); BILIRUBIN,TOTAL 0.5 mg/dL (0.2-1.0); Carbon Dioxide 26.7 mEq/L (21-32); Potassium 4.5 mEq/L (3.5-5.1); Total Protein 7.3 gm/dL (6.4-8.2)
[2017-04-13] MEDS: ROCEPHIN 1 Gm-D5w 50 ml Bag** 1 G/50 ML IVPB IV SCH (21:15)
[2017-04-13] MEDS: NovoLOG Insulin SQ PRN (21:26)
[2017-04-13] MEDS: Sodium Chloride 0.9% 1000 ML 1,000 ML IV SCH (22:55)
[2017-04-14] MEDS: Sodium Chloride 0.9% 1000 ML 1,000 ML IV SCH (05:33)
[2017-04-14] MEDS: Reglan 10 MG PO SCH ×3 (06:36→11:43)
[2017-04-14] MEDS ORDERED: PHENERGAN 25 MG PO PRN (07:16)
[2017-04-14] MEDS ORDERED: INSULIN LISPRO SQ SCH (07:30)
[2017-04-14] MEDS ORDERED: NovoLOG Insulin SQ SCH (07:30)
[2017-04-14] MEDS: ROCEPHIN 1 Gm-D5w 50 ml Bag** 1 G/50 ML IVPB IV SCH (08:24)
[2017-04-14 08:31] LABS: ADD URINE CULTURE? YES (NO); Bacteria MANY /HPF (NEGATIVE); Bilirubin NEGATIVE (NEGATIVE); Blood MODERATE Ery/ul (0-5); COMPLETE URINE MICROSCOPIC? YES; Collection Type CLEAN CATCH; Epithelial Cells MANY /HPF (FEW); Glucose NEGATIVE (NEGATIVE); Leukocyte Esterase LARGE (NEGATIVE); WBC >100 /HPF (0-5)
[2017-04-14] MEDS: NovoLOG Insulin SQ PRN ×2 (08:34→11:44)
[2017-04-14] MEDS ORDERED: FLUCELVAX QUAD 2017-2018 SYR IM ONE (10:00)
[2017-04-14] MEDS ORDERED: Protonix 40MG Tablet PO SCH (10:00)
[2017-04-14 12:10] VITALS: BP 125/73; PULSE 75; O2SAT 99
--- NOTE | 2017-04-14 12:44 | PCM.SSS ---
History of Present Illness - Chief Complaint Chief Complaint: c/o fever, diarrhea, History of Present Illness: See H& P. - Review of Systems Constitutional: No Fever, No Chills Eyes: No Symptoms Ears, Nose, & Throat: No Symptoms Respiratory: No Cough, No Short Of Breath Cardiac: No Chest Pain, No Edema, No Syncope Abdominal/Gastrointestinal: No Abdominal Pain, No Nausea, No Vomiting, No Diarrhea Genitourinary Symptoms: No Dysuria Musculoskeletal: No Back Pain, No Neck Pain Skin: No Rash Neurological: No Dizziness, No Focal Weakness, No Sensory Changes Psychological: No Symptoms Endocrine: No Symptoms Hematologic/Lymphatic: No Symptoms Immunological/Allergic: No Symptoms Medications & Allergies Home Medications: Home Medication List Insulin Lispro [Humalog] 9.75 unit SQ UD 11/14/16 [History Confirmed 04/13/17] Metoclopramide HCl [Reglan] 10 mg PO TID 11/14/16 [History Confirmed 04/13/17] PANTOPRAZOLE 40 mg Tablet [Protonix 40MG Tablet] 40 mg PO DAILY 11/14/16 [ History Confirmed 04/13/17] Promethazine HCl 25 mg [Phenergan 25 mg] 25 mg PO Q6HPRN PRN 11/14/16 [ History Confirmed 04/13/17] Ciprofloxacin [Cipro 500 MG] 500 mg PO BID #15 tablet 04/14/17 [Rx] Allergies/Adverse Reactions: Allergies Allergy/AdvReac Type Severity Reaction Status Date / Time orphenadrine citrate Allergy Intermediate Verified 11/14/16 20:54 [From Norflex] codeine Allergy Verified 11/14/16 20:54 hydrocodone bitartrate AdvReac Mild Verified 11/14/16 20:54 [From [place]] levofloxacin [From Levaquin] AdvReac Mild Nausea and Verified 11/14/16 20:54 Vomiting - Past Medical History Past Medical History: Yes Neurological History: No Pertinent History ENT History: No Pertinent History Cardiac History: Coronary Artery Disease Respiratory History: COPD Endocrine Medical History: Diabetes Type I Musculoskelatal History: Degenerative Disk Disease, Other GI Medical History: GERD History: Renal Disease Pyscho-Social History: Anxiety, Depression Reproductive Disorders: No Pertinent History Comment: HAS INSULIN PUMP. cardiac STENT PLACEMENT X 2, back problem, renal failure - Female History Are you now?: No - Past Surgical History Past Surgical History: Yes Neuro Surgical History: No Pertinent History Cardiac History: Cardiac Catheterization, Cardiac Stent Respiratory Surgery: No Pertinent History GI Surgical History: Cholecystectomy Genitourinary Surgical Hx: No Pertinent History Musculskeletal Surgical Hx: Other Female Surgical History: Tubal Ligation Other Surgical History: BUNONECTOMY. BACK SURGERY X2 - Social History Smoking Status: Current every day smoker How long have you smoked: 30 years Exposure to second hand smoke: Yes Alcohol: None Drug Use: none Significant Family History: heart disease, diabetes, hypertension - Physical Exam Vital Signs: Vital Signs - 24 hr Temp Pulse Resp BP Pulse Ox 04/14/17 12:09 97.6 F 75 20 125/73 99 04/14/17 07:13 97.7 F 72 20 127/70 96 04/14/17 04:00 97.6 F 85 20 113/69 93 L 04/13/17 23:37 98.1 F 79 24 95/55 94 L 04/13/17 20:00 98.6 F 83 18 114/67 94 L 04/13/17 16:48 98.7 F 62 22 96 General Appearance: no apparent distress, alert Neurologic Exam: alert, oriented x 3, cooperative, normal mood/affect, nml cerebellar function, nml station & gait, sensation nml, No motor deficits Eye Exam: PERRL/EOMI, eyes nml inspection Ears, Nose, Throat Exam: normal ENT inspection, TMs normal, pharynx normal, moist mucous membranes Neck Exam: normal inspection, non-tender, supple, full range of motion Respiratory Exam: normal breath sounds, lungs clear, No respiratory distress Cardiovascular Exam: regular rate/rhythm, normal heart sounds, normal peripheral pulses Gastrointestinal/Abdomen Exam: soft, normal bowel sounds, No tenderness, No mass Back Exam: normal inspection, normal range of motion, No CVA tenderness, No vertebral tenderness Extremity Exam: normal inspection, normal range of motion, pelvis stable Skin Exam: normal color, warm, dry, No rash Lymphatic Exam: No adenopathy Results - Labs Lab/Micro Results: Accuchecks Date 04/13/17 Time 21:20 Accucheck Value: 243 Accucheck Value: 191 Accucheck Value: 346 Lab Results-Last 24 Hours 04/13/17 04/13/17 04/13/17 Range/Units 18:05 18:05 18:25 WBC 11.2 H (4.0-10.5) K/mm3 RBC 4.77 (4.1-5.4) M/mm3 Hgb 14.3 (12.0-16.0) gm/dl Hct 44.6 (35-47) % MCV 93.5 (78-100) fl MCH 30.0 (26-32) pg MCHC 32.1 (32-36) g/dl RDW 14.9 H (11.5-14.0) % Plt Count 289 (150-450) K/mm3 MPV 9.3 (6-9.5) fl Sodium (136-145) mEq/L Potassium (3.5-5.1) mEq/L Chloride (98-107) mEq/L Carbon Dioxide (21-32) mEq/L Anion Gap (5-15) MEQ/L BUN (9-20) mg/dL Creatinine (0.55-1.30) mg/dl Estimated GFR ML/MIN Glucose (70-110) MG/DL Hemoglobin A1c 10.5 H (4.5-6.2) Lactic Acid 1.2 (0.4-2.0) Calcium (8.5-10.1) mg/dL Total Bilirubin (0.2-1.0) mg/dL AST (15-37) U/L ALT (12-78) U/L Alkaline Phosphatase (46-116) U/L Serum Total Protein (6.4-8.2) gm/dL Albumin (3.4-5.0) g/dL Ur Collection Type Urine Color (YELLOW) Urine Appearance (CLEAR) Urine pH (5-6) Ur Specific [place] (1.005-1.025) Urine Protein (Negative) Urine Ketones (NEGATIVE) Urine Blood (0-5) Tato/ul Urine Nitrite (NEGATIVE) Urine Bilirubin (NEGATIVE) Urine Urobilinogen (0-1) mg/dL Ur Leukocyte Esterase (NEGATIVE) Urine Microscopic RBC (0-2) /HPF Urine Microscopic WBC (0-5) /HPF Ur Epithelial Cells (FEW) /HPF Urine Bacteria (NEGATIVE) /HPF Urine Culture Reflexed (NO) Urine Glucose (NEGATIVE) mg/dL Specimen Received 04/13/17 04/14/17 Range/Units 18:25 07:28 WBC (4.0-10.5) K/mm3 RBC (4.1-5.4) M/mm3 Hgb (12.0-16.0) gm/dl Hct (35-47) % MCV (78-100) fl MCH (26-32) pg MCHC (32-36) g/dl RDW (11.5-14.0) % Plt Count (150-450) K/mm3 MPV (6-9.5) fl Sodium 137 (136-145) mEq/L Potassium 4.5 (3.5-5.1) mEq/L Chloride 102 (98-107) mEq/L Carbon Dioxide 26.7 (21-32) mEq/L Anion Gap 13.1 (5-15) MEQ/L BUN 11 (9-20) mg/dL Creatinine 1.04 (0.55-1.30) mg/dl Estimated GFR 58 ML/MIN Glucose 202 H (70-110) MG/DL Hemoglobin A1c (4.5-6.2) Lactic Acid (0.4-2.0) Calcium 9.6 (8.5-10.1) mg/dL Total Bilirubin 0.50 (0.2-1.0) mg/dL AST 24 (15-37) U/L ALT 16 (12-78) U/L Alkaline Phosphatase 134 H (46-116) U/L Serum Total Protein 7.3 (6.4-8.2) gm/dL Albumin 3.0 L (3.4-5.0) g/dL Ur Collection Type CLEAN CATCH Urine Color LT.YELLOW (YELLOW) Urine Appearance CLOUDY (CLEAR) Urine pH 6. (5-6) Ur Specific [place] 1.010 (1.005-1.025) Urine Protein TRACE (Negative) Urine Ketones NEGATIVE (NEGATIVE) Urine Blood MODERATE (0-5) Tato/ul Urine Nitrite NEGATIVE (NEGATIVE) Urine Bilirubin NEGATIVE (NEGATIVE) Urine Urobilinogen NORMAL (0-1) mg/dL Ur Leukocyte Esterase LARGE (NEGATIVE) Urine Microscopic RBC 0-2 (0-2) /HPF Urine Microscopic WBC >100 (0-5) /HPF Ur Epithelial Cells MANY (FEW) /HPF Urine Bacteria MANY (NEGATIVE) /HPF Urine Culture Reflexed YES (NO) Urine Glucose NEGATIVE (NEGATIVE) mg/dL Specimen Received 04/14/17 0730 Accuchecks Date 04/13/17 Time 21:20 Accucheck Value: 243 Accucheck Value: 191 Accucheck Value: 346 Assessment/Plan (1) UTI (urinary tract infection) Current Visit: Yes Status: Acute Qualifiers: Urinary tract infection type: acute pyelonephritis Qualified Code(s): N10 - Acute pyelonephritis Code(s): N39.0 - URINARY TRACT INFECTION, SITE NOT SPECIFIED (2) Type 1 diabetes mellitus Current Visit: No Status: Chronic Qualifiers: Diabetes mellitus complication status: with kidney complications Hospital Summary - Hospital Course Hospital Course: Chief Complaint Diagnosis c/o fever, diarrhea, Allergies Allergy/AdvReac Type Severity Reaction Status Date / Time orphenadrine citrate Allergy Intermediate Verified 11/14/16 20:54 [From Norflex] codeine Allergy Verified 11/14/16 20:54 hydrocodone bitartrate AdvReac Mild Verified 11/14/16 20:54 [From [place]] levofloxacin [From Levaquin] AdvReac Mild Nausea and Verified 11/14/16 20:54 Vomiting Vital Signs (Last 24 hours) Temp Pulse Resp BP Pulse Ox 04/14/17 12:09 97.6 F 75 20 125/73 99 04/14/17 07:13 97.7 F 72 20 127/70 96 04/14/17 04:00 97.6 F 85 20 113/69 93 L 04/13/17 23:37 98.1 F 79 24 95/55 94 L 04/13/17 20:00 98.6 F 83 18 114/67 94 L 04/13/17 16:48 98.7 F 62 22 96 Current Medications Generic Name Dose Route Start Last Admin Trade Name Freq PRN Reason Stop Dose Admin Sodium Chloride 1,000 mls @ 150 mls/hr 04/13/17 20:30 04/14/17 05:33 Sodium Chloride 0.9% 1000 Ml IV 05/13/17 20:29 150 mls/hr .Q6H40M NISSA Administration Ceftriaxone Sodium/Dextrose 1 g in 50 mls @ 100 mls/hr 04/13/17 20:00 08:24 Rocephin 1 Gm-D5w 50 Ml Bag IV 05/13/17 19:59 100 mls/hr Q24H10 NISSA Administration Insulin Aspart 0 unit 04/13/17 18:19 12/15/17 11:44 Novolog Insulin SQ 05/13/17 18:18 2 unit UD PRN Administration HYPERGLYCEMIA Insulin Aspart 0 unit 04/14/17 07:30 Novolog Insulin SQ 05/14/17 07:29 UD NISSA Metoclopramide HCl 10 mg 04/13/17 18:30 04/14/17 11:43 Reglan 10 Mg PO 05/13/17 18:29 10 mg TIDWMEALS NISSA Administration Pantoprazole Sodium 40 mg 04/14/17 10:00 04/14/17 08:22 Protonix 40mg Tablet PO 05/14/17 09:59 40 mg DAILY NISSA Administration Promethazine HCl 25 mg 04/14/17 07:16 Phenergan 25 Mg PO 05/14/17 07:15 Q6HPRN PRN NAUSEA Discontinued Medications Generic Name Dose Route Start Last Admin Trade Name Freq PRN Reason Stop Dose Admin Sodium Chloride 1,000 mls @ 999 mls/hr 04/13/17 18:07 Sodium Chloride 0.9% 1000 Ml IV 04/13/17 19:07 .Q1H1M STA Sodium Chloride 1,000 mls @ 999 mls/hr 04/13/17 19:15 04/13/17 20:17 Sodium Chloride 0.9% 1000 Ml IV 04/13/17 20:15 999 mls/hr .Q1H1M NISSA Administration Sodium Chloride 1,000 mls @ 999 mls/hr 04/13/17 18:15 04/13/17 21:15 Sodium Chloride 0.9% 1000 Ml IV 04/13/17 19:15 999 mls/hr .Q1H1M NISSA Administration Influenza Virus Vaccine Quadrival 60 mcg 04/14/17 10:00 04/14/17 09:36 Flucelvax Quad [id number] Syr IM 04/14/17 10:01 Not Given .ONCE ONE Intake & Output (Last 24 hours) 04/12/17 04/13/17 04/14/17 04/15/17 11:59 11:59 11:59 11:59 Intake Total 4043 360 Output Total 2650 600 Balance 1393 -240 Weight 62.596 kg Microbiology Results (Last 24 hours) 04/14/17 07:28 Clean Catch Midstream - Pending 04/13/17 18:25 Blood - Pending 04/13/17 18:25 Blood Blood Culture - Pending 04/13/17 18:16 Blood - Pending 04/13/17 18:16 Blood Blood Culture - Pending Laboratory Results (Last 24 hours) 04/14/17 04/13/17 04/13/17 07:28 18:25 18:25 WBC 11.2 H RBC 4.77 Hgb 14.3 Hct 44.6 MCV 93.5 MCH 30.0 MCHC 32.1 RDW 14.9 H Plt Count 289 MPV 9.3 Sodium 137 Potassium 4.5 Chloride 102 Carbon Dioxide 26.7 Anion Gap 13.1 BUN 11 Creatinine 1.04 Estimated GFR 58 Glucose 202 H Hemoglobin A1c Lactic Acid Calcium 9.6 Total Bilirubin 0.50 AST 24 ALT 16 Alkaline Phosphatase 134 H Serum Total Protein 7.3 Albumin 3.0 L Ur Collection Type CLEAN CATCH Urine Color LT.YELLOW Urine Appearance CLOUDY Urine pH 6. Ur Specific [place] 1.010 Urine Protein TRACE Urine Ketones NEGATIVE Urine Blood MODERATE Urine Nitrite NEGATIVE Urine Bilirubin NEGATIVE Urine Urobilinogen NORMAL Ur Leukocyte Esterase LARGE Urine Microscopic RBC 0-2 Urine Microscopic WBC >100 Ur Epithelial Cells MANY Urine Bacteria MANY Urine Culture Reflexed YES Urine Glucose NEGATIVE Specimen Received 04/14/17 0730 04/13/17 04/13/17 18:05 18:05 WBC RBC Hgb Hct MCV MCH MCHC RDW Plt Count MPV Sodium Potassium Chloride Carbon Dioxide Anion Gap BUN Creatinine Estimated GFR Glucose Hemoglobin A1c 10.5 H Lactic Acid 1.2 Calcium Total Bilirubin AST ALT Alkaline Phosphatase Serum Total Protein Albumin Ur Collection Type Urine Color Urine Appearance Urine pH Ur Specific [place] Urine Protein Urine Ketones Urine Blood Urine Nitrite Urine Bilirubin Urine Urobilinogen Ur Leukocyte Esterase Urine Microscopic RBC Urine Microscopic WBC Ur Epithelial Cells Urine Bacteria Urine Culture Reflexed Urine Glucose Specimen Received Orders (Last 24 hours) Category Date Time Status ACCUCHECK [Accucheck] ACHS Care 04/14/17 03:07 Active Admission/Status Order ROUTINE Care 04/13/17 16:35 Active 2000 Calorie ADA Diet 04/13/17 Dinner Active BLOOD CULTURE Stat Lab 04/13/17 18:25 Received CBC Urgent Lab 04/13/17 18:25 Completed CMP Urgent Lab 04/13/17 18:25 Completed CULTURE,URINE Routine Lab 04/14/17 07:28 Received HEMOGLOBIN A1C Urgent Lab 04/14/17 09:00 Completed Lactic Acid Stat Lab 04/13/17 18:05 Completed UA W/ MICROSCOPIC Routine Lab 04/14/17 07:28 Completed Ceftriaxone 1 GM/50 ML PREMIX* [ROCEPHIN 1 Gm-D5w 50 ml Med 04/13/17 20:00 Active Bag] 1 g in 50 ml IV Q24H10 Flu Vac Qs 17-18(4Yr Up)Keysha/Pf [Flucelvax Quad 2017- Med 04/14/17 10:00 Discontinued 2018 Syr] 60 mcg IM .ONCE ONE Insulin Aspart [NovoLOG Insulin] Med 04/14/17 07:30 Active 0 unit SQ UD Insulin Aspart [NovoLOG Insulin] Med 04/13/17 18:19 Active See Dose Instructions SQ UD PRN Metoclopramide HCl 10 mg [Reglan 10 MG] Med 04/13/17 18:30 Active 10 mg PO TIDWMEALS NaCl 0.9% 1000 ml [Sodium Chloride 0.9% 1000 ML] 1,000 Med 04/13/17 20:30 Active ml IV 150 mls/hr NaCl 0.9% 1000 ml [Sodium Chloride 0.9% 1000 ML] 1,000 Med 04/13/17 18:07 Discontinued ml IV 999 mls/hr NaCl 0.9% 1000 ml [Sodium Chloride 0.9% 1000 ML] 1,000 Med 04/13/17 18:15 Discontinued ml IV 999 mls/hr NaCl 0.9% 1000 ml [Sodium Chloride 0.9% 1000 ML] 1,000 Med 04/13/17 19:15 Discontinued ml IV 999 mls/hr PANTOPRAZOLE 40 mg Tablet [Protonix 40MG Tablet] Med 04/14/17 10:00 Active 40 mg PO DAILY Promethazine HCl 25 mg [Phenergan 25 mg] Med 04/14/17 07:16 Active 25 mg PO Q6HPRN PRN Patient Care Notes (Last 24 hours) 04/13/17 17:29 Nursing Note by Asiya Perez Called Dr. Arias's answering service for him to call back to verify med list and to get admission orders. Initialized on 04/13/17 17:29 - END OF NOTE - Vitals & Intake/Output Vital Signs: Vital Signs Temperature 97.6 F 04/14/17 12:09 Pulse Rate 75 04/14/17 12:09 Respiratory Rate 20 04/14/17 12:09 Blood Pressure 125/73 04/14/17 12:09 O2 Sat by Pulse Oximetry 99 04/14/17 12:09 Intake & Output: Intake & Output 04/12/17 04/13/17 04/14/17 04/15/17 11:59 11:59 11:59 11:59 Intake Total 4043 360 Output Total 2650 600 Balance 1393 -240 Weight 62.596 kg - Lab Result Diagrams: 04/13/17 18:25 04/13/17 18:25 Lab Results-Last 24 Hrs: Accuchecks Date 04/13/17 Time 21:20 Accucheck Value: 243 Accucheck Value: 191 Accucheck Value: 346 Lab Results-Last 24 Hours 04/13/17 04/13/17 04/13/17 Range/Units 18:05 18:05 18:25 WBC 11.2 H (4.0-10.5) K/mm3 RBC 4.77 (4.1-5.4) M/mm3 Hgb 14.3 (12.0-16.0) gm/dl Hct 44.6 (35-47) % MCV 93.5 (78-100) fl MCH 30.0 (26-32) pg MCHC 32.1 (32-36) g/dl RDW 14.9 H (11.5-14.0) % Plt Count 289 (150-450) K/mm3 MPV 9.3 (6-9.5) fl Sodium (136-145) mEq/L Potassium (3.5-5.1) mEq/L Chloride (98-107) mEq/L Carbon Dioxide (21-32) mEq/L Anion Gap (5-15) MEQ/L BUN (9-20) mg/dL Creatinine (0.55-1.30) mg/dl Estimated GFR ML/MIN Glucose (70-110) MG/DL Hemoglobin A1c 10.5 H (4.5-6.2) Lactic Acid 1.2 (0.4-2.0) Calcium (8.5-10.1) mg/dL Total Bilirubin (0.2-1.0) mg/dL AST (15-37) U/L ALT (12-78) U/L Alkaline Phosphatase (46-116) U/L Serum Total Protein (6.4-8.2) gm/dL Albumin (3.4-5.0) g/dL Ur Collection Type Urine Color (YELLOW) Urine Appearance (CLEAR) Urine pH (5-6) Ur Specific [place] (1.005-1.025) Urine Protein (Negative) Urine Ketones (NEGATIVE) Urine Blood (0-5) Tato/ul Urine Nitrite (NEGATIVE) Urine Bilirubin (NEGATIVE) Urine Urobilinogen (0-1) mg/dL Ur Leukocyte Esterase (NEGATIVE) Urine Microscopic RBC (0-2) /HPF Urine Microscopic WBC (0-5) /HPF Ur Epithelial Cells (FEW) /HPF Urine Bacteria (NEGATIVE) /HPF Urine Culture Reflexed (NO) Urine Glucose (NEGATIVE) mg/dL Specimen Received 04/13/17 04/14/17 Range/Units 18:25 07:28 WBC (4.0-10.5) K/mm3 RBC (4.1-5.4) M/mm3 Hgb (12.0-16.0) gm/dl Hct (35-47) % MCV (78-100) fl MCH (26-32) pg MCHC (32-36) g/dl RDW (11.5-14.0) % Plt Count (150-450) K/mm3 MPV (6-9.5) fl Sodium 137 (136-145) mEq/L Potassium 4.5 (3.5-5.1) mEq/L Chloride 102 (98-107) mEq/L Carbon Dioxide 26.7 (21-32) mEq/L Anion Gap 13.1 (5-15) MEQ/L BUN 11 (9-20) mg/dL Creatinine 1.04 (0.55-1.30) mg/dl Estimated GFR 58 ML/MIN Glucose 202 H (70-110) MG/DL Hemoglobin A1c (4.5-6.2) Lactic Acid (0.4-2.0) Calcium 9.6 (8.5-10.1) mg/dL Total Bilirubin 0.50 (0.2-1.0) mg/dL AST 24 (15-37) U/L ALT 16 (12-78) U/L Alkaline Phosphatase 134 H (46-116) U/L Serum Total Protein 7.3 (6.4-8.2) gm/dL Albumin 3.0 L (3.4-5.0) g/dL Ur Collection Type CLEAN CATCH Urine Color LT.YELLOW (YELLOW) Urine Appearance CLOUDY (CLEAR) Urine pH 6. (5-6) Ur Specific [place] 1.010 (1.005-1.025) Urine Protein TRACE (Negative) Urine Ketones NEGATIVE (NEGATIVE) Urine Blood MODERATE (0-5) Tato/ul Urine Nitrite NEGATIVE (NEGATIVE) Urine Bilirubin NEGATIVE (NEGATIVE) Urine Urobilinogen NORMAL (0-1) mg/dL Ur Leukocyte Esterase LARGE (NEGATIVE) Urine Microscopic RBC 0-2 (0-2) /HPF Urine Microscopic WBC >100 (0-5) /HPF Ur Epithelial Cells MANY (FEW) /HPF Urine Bacteria MANY (NEGATIVE) /HPF Urine Culture Reflexed YES (NO) Urine Glucose NEGATIVE (NEGATIVE) mg/dL Specimen Received 04/14/17 0730 Micro Results-Entire Visit: Accuchecks Date 04/13/17 Time 21:20 Accucheck Value: 243 Accucheck Value: 191 Accucheck Value: 346 - Discharge Discharge Date: 04/14/17 Disposition: Home, Self-Care Condition: Stable Prescriptions: New Ciprofloxacin [Cipro 500 MG] 500 mg PO BID #15 tablet Continue Metoclopramide HCl [Reglan] 10 mg PO TID PANTOPRAZOLE 40 mg Tablet [Protonix 40MG Tablet] 40 mg PO DAILY Promethazine HCl 25 mg [Phenergan 25 mg] 25 mg PO Q6HPRN PRN PRN Reason: Nausea Insulin Lispro [Humalog] 9.75 unit SQ UD Follow up with: LYUDMILA ARIAS MD [Primary Care Provider] - 04/25/17 9:15 am Forms: Patient Portal Information
== END 2017-04-14 13:00 | disposition home or self-care (01) ==
LOC: MED SURG 16:34
PROVIDERS: ADMIT General Practice; ATTEND General Practice
DX: N10 Acute pyelonephritis (principal); E10.9 Type 1 diabetes mellitus without complications; Z79.4 Long term (current) use of insulin; J44.9 Chronic obstructive pulmonary disease, unspecified; K21.9 Gastro-esophageal reflux disease without esophagitis; F41.8 Other specified anxiety disorders; Z79.899 Other long term (current) drug therapy
CPT/HCPCS: 36415; 80053; 81000; 82962; 83036; 83605; 85027; 87040; 87086; G0378; J0696; 90682; A9270-GY

== ENCOUNTER 2017-07-18 13:33 | Emergency (ER) | payer OTHER ==
[2017-07-18 14:06] VITALS: BP 113/77; PULSE 76; O2SAT 99
[2017-07-18] MEDS ORDERED: PROVENTIL 2.5 MG/3 ML NEB IH ONE ×2 (14:10→14:55)
--- NOTE | 2017-07-18 14:25 | ERPHSYRPT ---
- History of Present Illness Time Seen by Provider: 07/18/17 13:56 Source: patient Patient Subjective Stated Complaint: cough for three weeks. saw dr. arias last monday and was given rocephin and solumedrol. states is not getting any better. Triage Nursing Assessment: ambulated to room per self. skin w/d, color normal, resp easy. occasional dry cough noted. Physician History: CC: cough HX: 56 y/o smoker who sees Dr Arias. She states she has had a cough for forever. She took zithromax and keflex. Saw Dr Arias last week and had steroid shot and rocephin shot and another shot. She is using codiene cough syrup. No nebs or MDI. Some fever/chills at first. No other problems. She is a smoker. Allergies/Adverse Reactions: orphenadrine citrate [From Norflex] Allergy (Intermediate, Verified 11/14/16 20: 54) severe vomiting hydrocodone bitartrate [From [place]] Adverse Reaction (Mild, Verified 11/14/16 20 :54) nausea vomiting levofloxacin [From Levaquin] Adverse Reaction (Mild, Verified 11/14/16 20:54) Nausea and Vomiting Home Medications: Insulin Lispro [Humalog] 1 unit SQ UD 11/14/16 [History] Metoclopramide HCl [Reglan] 10 mg PO TID 11/14/16 [History] PANTOPRAZOLE 40 mg Tablet [Protonix 40MG Tablet] 40 mg PO DAILY 11/14/16 [ History] Promethazine HCl 25 mg [Phenergan 25 mg] 25 mg PO Q6HPRN PRN 11/14/16 [ History] Alprazolam 1 mg [Xanax 1 mg] 1 mg PO HS 07/18/17 [History] Guaifenesin/Codeine Phos [Cheratussin AC Syrup] 5 ml PO Q4HPRN PRN 07/18/17 [ History] Hx Tetanus, Diphtheria Vaccination/Date Given: No Hx Influenza Vaccination/Date Given: Yes Hx Pneumococcal Vaccination/Date Given: Yes - Review of Systems Constitutional: Malaise, No Fever, No Chills Eyes: No Symptoms Ears, Nose, & Throat: No Symptoms Respiratory: Cough, No Dyspnea Cardiac: No Chest Pain Abdominal/Gastrointestinal: No Abdominal Pain Musculoskeletal: No Back Pain Skin: No Rash Neurological: No Headache All Other Systems: Reviewed and Negative - Past Medical History Pertinent Past Medical History: Yes Neurological History: No Pertinent History ENT History: No Pertinent History Cardiac History: Coronary Artery Disease Respiratory History: COPD Endocrine Medical History: Diabetes Type I Musculoskeletal History: Degenerative Disk Disease, Other GI Medical History: GERD History: Renal Disease Psycho-Social History: Anxiety, Depression Female Reproductive Disorders: No Pertinent History Other Medical History: HAS INSULIN PUMP. cardiac STENT PLACEMENT X 2, back problem, renal failure - Past Surgical History Past Surgical History: Yes Neuro Surgical History: No Pertinent History Cardiac: Cardiac Catheterization, Cardiac Stent Respiratory: No Pertinent History Gastrointestinal: Cholecystectomy Genitourinary: No Pertinent History Musculoskeletal: Other Female Surgical History: Tubal Ligation Other Surgical History: BUNONECTOMY. BACK SURGERY X2 - Social History Smoking Status: Current every day smoker How long have you smoked: 30 years Exposure to second hand smoke: Yes Alcohol Use: None Drug Use: none Patient Lives Alone: No Significant Family History: heart disease, diabetes, hypertension - Female History Hx Now: No - Nursing Vital Signs Nursing Vital Signs: Initial Vital Signs Temperature 97.2 F 07/18/17 13:43 Pulse Rate 76 07/18/17 13:43 Respiratory Rate 20 07/18/17 13:43 Blood Pressure 113/77 07/18/17 13:43 O2 Sat by Pulse Oximetry 99 07/18/17 13:43 Pain Scale Pain Intensity 8 - Physical Exam General Appearance: alert Eye Exam: PERRL/EOMI Ears, Nose, Throat Exam: normal ENT inspection, moist mucous membranes Neck Exam: normal inspection, non-tender, supple Respiratory Exam: normal breath sounds, No respiratory distress, No wheezing Cardiovascular Exam: regular rate/rhythm Gastrointestinal/Abdomen Exam: soft, No tenderness, No distention Extremity Exam: normal inspection, normal range of motion, No calf tenderness, No pedal edema Neurologic Exam: alert, oriented x 3, cooperative Skin Exam: warm, dry, No rash SpO2 Interpretation: normal SpO2: 99 Oxygen Delivery: Room Air - Course Nursing assessment & vital signs reviewed: Yes Ordered Tests: Active Orders 24 hr Category Date Time Status CHEST 2 VIEWS (PA AND LAT) Stat Exams 07/18/17 14:11 Completed Respiratory Nebulizer STAT RT 07/18/17 14:11 Active Medication Summary Discontinued Medications Generic Name Dose Route Start Last Admin Trade Name Freq PRN Reason Stop Dose Admin Albuterol Sulfate 2.5 mg 07/18/17 14:10 Proventil 2.5 Mg/3 Ml Neb IH 07/18/17 14:11 STAT ONE Albuterol Sulfate Confirm 07/18/17 14:55 Proventil 2.5 Mg/3 Ml Neb Administered 07/18/17 14:56 Dose 2.5 mg IH .STK-MED ONE - Progress Progress Note: 07/18/17 14:58 CXR: Impression: Stable nonacute hyperinflated chest with chronic features. Will give neb and alb MDI with aerochamber spacer. Instr given. Advised smoking cessation. 07/18/17 15:00 accu check normal. Counseled pt/family regarding: diagnosis, need for follow-up, rad results, smoking cessation - Departure Time of Disposition: 14:59 Departure Disposition: Home Clinical Impression: Cough, Smoker Condition: Stable Critical Care Time: No Referrals: LYUDMILA ARIAS MD [Primary Care Provider] - Instructions: Cough, Adult (DC), Quitting Smoking Additional Instructions: Rx albuterol MDI- chong. Follow up with Dr Arias. Stop smoking. Prescriptions: Albuterol Sulfate [Albuterol Sulfate Hfa] 2 puff IH Q4-6HPRN PRN #1 [email or web address] PRN Reason: cough or wheeze
--- NOTE | 2017-07-18 14:35 | XRAY ---
Indication: Cough. Comparison: November 14, 2016. PA/lateral chest remains hyperinflated a few calcified granulomas and left apical fibrosis/scarring. No infiltrate, consolidation, or large effusion. Heart and mediastinal structures within normal limits. Bony thorax intact again with minimal scoliosis. Impression: Stable nonacute hyperinflated chest with chronic features..
== END 2017-07-18 15:30 ==
LOC: ED 13:33
DX: R05 Cough (principal); Z72.0 Tobacco use; I25.10 Atherosclerotic heart disease of native coronary artery without angina pectoris; J44.9 Chronic obstructive pulmonary disease, unspecified; E10.9 Type 1 diabetes mellitus without complications; K21.9 Gastro-esophageal reflux disease without esophagitis; F41.8 Other specified anxiety disorders; N19 Unspecified kidney failure; Z79.4 Long term (current) use of insulin; Z79.899 Other long term (current) drug therapy
CPT/HCPCS: 71046; 94640; 99283; A9270-GY

== ENCOUNTER 2017-10-11 10:43 | Emergency (ER) | payer OTHER ==
[2017-10-11] MEDS ORDERED: Sodium Chloride 0.9% 1000 ML 1,000 ML IV STA (11:01)
--- NOTE | 2017-10-11 11:08 | ERPHSYRPT ---
- History of Present Illness Time Seen by Provider: 10/11/17 11:00 Source: patient Exam Limitations: no limitations Patient Subjective Stated Complaint: Hyperglycemia x4 days Triage Nursing Assessment: Pt presents to the ED with complaints of hyperglycemia. Pt states onset x4 days, FSBS 400+ for last 24 hours. Pt has insulin pump attached, states additional units x2 days have been given without relief of symptoms. Pt denies pain at this time. Pt also complains of generalized weakness. No distress noted, skin PWD. Physician History: Pt started c/o weakness, nausea, few loose bowel movements yesterday, denies chest pain, fever, vomiting, bloody or black diarrhea, other complaints, she is 1.5 PPD smoker, denies more SOB than usual. She checked her blood sugar, it was > 400 this morning, did not eat, had few sips of water. She has an Insulin pump going but used extra 8 units of Humalog SQ this morning. Timing/Duration: yesterday Severity: moderate Modifying Factors: Improves With: nothing Associated Symptoms: nausea, other (palpitations) Allergies/Adverse Reactions: orphenadrine citrate [From Norflex] Allergy (Intermediate, Verified 11/14/16 20: 54) severe vomiting hydrocodone bitartrate [From [place]] Adverse Reaction (Mild, Verified 11/14/16 20 :54) nausea vomiting levofloxacin [From Levaquin] Adverse Reaction (Mild, Verified 11/14/16 20:54) Nausea and Vomiting Home Medications: Insulin Lispro [Humalog] 1 unit SQ UD 11/14/16 [History] Metoclopramide HCl [Reglan] 10 mg PO TID 11/14/16 [History] PANTOPRAZOLE 40 mg Tablet [Protonix 40MG Tablet] 40 mg PO DAILY 11/14/16 [ History] Promethazine HCl 25 mg [Phenergan 25 mg] 25 mg PO Q6HPRN PRN 11/14/16 [ History] Alprazolam 1 mg [Xanax 1 mg] 1 mg PO HS 07/18/17 [History] Hx Tetanus, Diphtheria Vaccination/Date Given: Yes Hx Influenza Vaccination/Date Given: Yes Hx Pneumococcal Vaccination/Date Given: Yes Immunizations Up to Date: Yes - Review of Systems Constitutional: Weakness Cardiac: Palpitations Abdominal/Gastrointestinal: Nausea, Diarrhea All Other Systems: Reviewed and Negative - Past Medical History Pertinent Past Medical History: Yes Neurological History: No Pertinent History ENT History: No Pertinent History Cardiac History: Coronary Artery Disease Respiratory History: COPD Endocrine Medical History: Diabetes Type I Musculoskeletal History: Degenerative Disk Disease, Other GI Medical History: GERD History: Renal Disease Psycho-Social History: Anxiety, Depression Female Reproductive Disorders: No Pertinent History Other Medical History: HAS INSULIN PUMP. cardiac STENT PLACEMENT X 2, back problem, renal failure - Past Surgical History Past Surgical History: Yes Neuro Surgical History: No Pertinent History Cardiac: Cardiac Catheterization, Cardiac Stent Respiratory: No Pertinent History Gastrointestinal: Cholecystectomy Genitourinary: No Pertinent History Musculoskeletal: Other Female Surgical History: Tubal Ligation Other Surgical History: BUNONECTOMY. BACK SURGERY X2 - Social History Smoking Status: Current every day smoker How long have you smoked: 40 years Exposure to second hand smoke: Yes Alcohol Use: None Drug Use: none Patient Lives Alone: No Significant Family History: heart disease, diabetes, hypertension - Nursing Vital Signs Nursing Vital Signs: Initial Vital Signs Temperature 97.6 F 10/11/17 10:53 Pulse Rate 109 H 10/11/17 10:53 Respiratory Rate 22 10/11/17 10:53 Blood Pressure 99/68 10/11/17 10:53 O2 Sat by Pulse Oximetry 97 10/11/17 10:53 Pain Scale Pain Intensity 0 - Physical Exam General Appearance: no apparent distress Eye Exam: eyes nml inspection Ears, Nose, Throat Exam: normal ENT inspection, pharynx normal Neck Exam: normal inspection, non-tender, supple, No mass, No JVD Respiratory Exam: normal breath sounds, lungs clear, airway intact, No chest tenderness Cardiovascular Exam: regular rate/rhythm, normal heart sounds, normal peripheral pulses, No murmur Gastrointestinal/Abdomen Exam: soft, normal bowel sounds, No tenderness, No distention, No mass, No guarding, No pulsatile mass Back Exam: normal inspection, No CVA tenderness Extremity Exam: normal inspection, No calf tenderness, No sissy's sign, No pedal edema Neurologic Exam: alert, oriented x 3, normal mood/affect Skin Exam: normal color, warm, dry, No rash Lymphatic Exam: No adenopathy SpO2 Interpretation: normal SpO2: 97 Oxygen Delivery: Room Air - Course Nursing assessment & vital signs reviewed: Yes EKG Interpreted by Me: RATE (102/min), Sinus Tach, NORMAL AXIS, Non-specific ST Changes, Other (inferior Q waves) Ordered Tests: Active Orders 24 hr Category Date Time Status EKG-ER Only STAT Care 10/11/17 11:01 Active IV Insertion STAT Care 10/11/17 11:01 Active CHEST 1 VIEW (PORTABLE) Stat Exams 10/11/17 11:01 Completed ARTERIAL BLOOD GASES Stat Lab 10/11/17 11:03 Completed CBC W DIFF Stat Lab 10/11/17 11:16 Completed CK-Creatinine Phosphokinase Urgent Lab 10/11/17 11:16 Completed CMP Urgent Lab 10/11/17 11:16 Completed CULTURE,URINE Stat Lab 10/11/17 12:20 Received LIPASE Urgent Lab 10/11/17 11:16 Completed Lactic Acid Stat Lab 10/11/17 11:03 Completed MAGNESIUM Urgent Lab 10/11/17 11:16 Completed NT PRO BNP Urgent Lab 10/11/17 11:16 Completed TROPONIN Q3H Lab 10/11/17 11:16 Completed TROPONIN Q3H Lab 10/11/17 14:15 Ordered TROPONIN Q3H Lab 10/11/17 17:15 Ordered TROPONIN Q3H Lab 10/11/17 20:15 Ordered TROPONIN Q3H Lab 10/11/17 23:15 Ordered TSH [TSH, 3RD Generation] Stat Lab 10/11/17 11:15 Completed UA W/ MICROSCOPIC Stat Lab 10/11/17 12:20 Completed Urine Triage Profile Stat Lab 10/11/17 Completed Medication Summary Discontinued Medications Generic Name Dose Route Start Last Admin Trade Name Freq PRN Reason Stop Dose Admin Cephalexin HCl 500 mg 10/11/17 13:01 10/11/17 13:04 Keflex 500 Mg PO 10/11/17 13:02 500 mg STAT ONE Administration Cephalexin HCl Confirm 10/11/17 13:04 Keflex 500 Mg Administered 10/11/17 13:05 Dose 500 mg .ROUTE .STK-MED ONE Sodium Chloride 1,000 mls @ 999 mls/hr 10/11/17 11:01 10/11/17 11:22 Sodium Chloride 0.9% 1000 Ml IV 10/11/17 12:01 999 mls/hr .Q1H1M STA Administration Sodium Chloride Confirm 10/11/17 11:22 Sodium Chloride 0.9% 1000 Ml Administered 10/11/17 11:23 Dose 1,000 mls @ .ROUTE .STK-MED ONE Lab/Rad Data: Laboratory Result Diagrams 10/11/17 11:16 10/11/17 11:16 Laboratory Results 10/11/17 10/11/17 10/11/17 Range/Units Unknown 12:20 11:16 WBC (4.0-10.5) K/mm3 RBC (4.1-5.4) M/mm3 Hgb (12.0-16.0) gm/dl Hct (35-47) % MCV (78-100) fl MCH (26-32) pg MCHC (32-36) g/dl RDW (11.5-14.0) % Plt Count (150-450) K/mm3 MPV (6-9.5) fl Gran % (36.0-66.0) % Eos # (Auto) (0-0.5) Absolute Lymphs (auto) (1.0-4.6) Absolute Monos (auto) (0.0-1.3) Lymphocytes % (24.0-44.0) % Monocytes % (0.0-12.0) % Eosinophils % (0.00-5.0) % Basophils % (0.0-0.4) % Absolute Granulocytes (1.4-6.9) Basophils # (0-0.4) Puncture Site pCO2 (35-45) mmHg pO2 (75-100) mmHg Base Excess (-2.0-2.0) O2 Saturation (94-100) g/dF ABG pH (7.35-7.45) ABG HCO3 (22-28) ABG O2 Sat (Measured) (95-100) % Luis Test A-a Gradient a/A Ratio Hemoglobin Carboxyhemoglobin (0.0-6.9) % THgb Methemoglobin (1.4-1.5) % Potassium 4.3 (3.5-5.1) Temperature C POC O2 Flow Rate % Sodium 140 (137-145) mmol/L Chloride 105 (98-107) mmol/L Carbon Dioxide 17 L (22-30) mmol/L Anion Gap 22.0 H (5-15) MEQ/L BUN 31 H (7-17) mg/dL Creatinine 1.38 H (0.52-1.04) mg/dL Estimated GFR 42.0 ML/MIN Glucose 307 H (74-106) mg/dL Lactic Acid (0.4-2.0) Calcium 10.1 (8.4-10.2) mg/dL Magnesium 1.8 (1.6-2.3) mg/dL Total Bilirubin 0.50 (0.2-1.3) mg/dL AST 16 (14-36) U/L ALT 15 (0-35) U/L Alkaline Phosphatase 118 (38-126) U/L Creatine Kinase 69 (30-135) U/L Troponin I < 0.012 (0.000-0.034) ng/mL NT-Pro-B Natriuret Pep 73.3 (0-900) pg/mL Serum Total Protein 6.9 (6.3-8.2) g/dL Albumin 4.0 (3.5-5.0) g/dL Lipase 22 L (23-300) U/L TSH 3rd Generation (0.47-4.68) mIU/L Ur Collection Type VOID Urine Color YELLOW (YELLOW) Urine Appearance CLEAR (CLEAR) Urine pH 5.0 (5-6) Ur Specific [place] 1.010 (1.005-1.025) Urine Protein NEGATIVE (Negative) Urine Ketones LARGE (NEGATIVE) Urine Blood 5-10 (0-5) Tato/ul Urine Nitrite NEGATIVE (NEGATIVE) Urine Bilirubin NEGATIVE (NEGATIVE) Urine Urobilinogen NORMAL (0-1) mg/dL Ur Leukocyte Esterase 1+ (NEGATIVE) Urine Microscopic RBC 0-2 (0-2) /HPF Urine Microscopic WBC 2-5 (0-5) /HPF Ur Epithelial Cells RARE (FEW) /HPF Urine Bacteria FEW (NEGATIVE) /HPF Urine Culture Reflexed YES (NO) Urine Glucose 1000 (NEGATIVE) mg/dL Urine Opiates Level NEGATIVE (NEGATIVE) Ur Methadone NEGATIVE (NEGATIVE) Urine Barbiturates NEGATIVE (NEGATIVE) Ur Phencyclidine (PCP) NEGATIVE (NEGATIVE) Urine Amphetamine NEGATIVE (NEGATIVE) U Benzodiazepine Level POSITIVE (NEGATIVE) Urine Cocaine NEGATIVE (NEGATIVE) Urine Marijuana (THC) NEGATIVE (NEGATIVE) Specimen Received 10/11/17 1220 10/11/17 10/11/17 10/11/17 Range/Units 11:16 11:15 11:03 WBC 11.0 H (4.0-10.5) K/mm3 RBC 4.91 (4.1-5.4) M/mm3 Hgb 15.1 (12.0-16.0) gm/dl Hct 44.3 (35-47) % MCV 90.2 (78-100) fl MCH 30.8 (26-32) pg MCHC 34.1 (32-36) g/dl RDW 14.2 H (11.5-14.0) % Plt Count 365 (150-450) K/mm3 MPV 9.1 (6-9.5) fl Gran % 74.3 H (36.0-66.0) % Eos # (Auto) 0.11 (0-0.5) Absolute Lymphs (auto) 1.95 (1.0-4.6) Absolute Monos (auto) 0.68 (0.0-1.3) Lymphocytes % 17.7 L (24.0-44.0) % Monocytes % 6.2 (0.0-12.0) % Eosinophils % 1.0 (0.00-5.0) % Basophils % 0.8 (0.0-0.4) % Absolute Granulocytes 8.16 H (1.4-6.9) Basophils # 0.09 (0-0.4) Puncture Site LEFT RADIAL pCO2 31 L (35-45) mmHg pO2 69 L (75-100) mmHg Base Excess -3.9 L (-2.0-2.0) O2 Saturation 91.3 L (94-100) g/dF ABG pH 7.41 (7.35-7.45) ABG HCO3 19.6 L (22-28) ABG O2 Sat (Measured) 92.2 L (95-100) % Luis Test Yes A-a Gradient 42 a/A Ratio 0.62 Hemoglobin 14.7 Carboxyhemoglobin 1.0 (0.0-6.9) % THgb Methemoglobin 0.1 L (1.4-1.5) % Potassium 4.1 (3.5-5.1) Temperature 37.0 C POC O2 Flow Rate 21 % Sodium (137-145) mmol/L Chloride (98-107) mmol/L Carbon Dioxide (22-30) mmol/L Anion Gap (5-15) MEQ/L BUN (7-17) mg/dL Creatinine (0.52-1.04) mg/dL Estimated GFR ML/MIN Glucose (74-106) mg/dL Lactic Acid 1.7 (0.4-2.0) Calcium (8.4-10.2) mg/dL Magnesium (1.6-2.3) mg/dL Total Bilirubin (0.2-1.3) mg/dL AST (14-36) U/L ALT (0-35) U/L Alkaline Phosphatase (38-126) U/L Creatine Kinase (30-135) U/L Troponin I (0.000-0.034) ng/mL NT-Pro-B Natriuret Pep (0-900) pg/mL Serum Total Protein (6.3-8.2) g/dL Albumin (3.5-5.0) g/dL Lipase (23-300) U/L TSH 3rd Generation 1.280 (0.47-4.68) mIU/L Ur Collection Type Urine Color (YELLOW) Urine Appearance (CLEAR) Urine pH (5-6) Ur Specific [place] (1.005-1.025) Urine Protein (Negative) Urine Ketones (NEGATIVE) Urine Blood (0-5) Tato/ul Urine Nitrite (NEGATIVE) Urine Bilirubin (NEGATIVE) Urine Urobilinogen (0-1) mg/dL Ur Leukocyte Esterase (NEGATIVE) Urine Microscopic RBC (0-2) /HPF Urine Microscopic WBC (0-5) /HPF Ur Epithelial Cells (FEW) /HPF Urine Bacteria (NEGATIVE) /HPF Urine Culture Reflexed (NO) Urine Glucose (NEGATIVE) mg/dL Urine Opiates Level (NEGATIVE) Ur Methadone (NEGATIVE) Urine Barbiturates (NEGATIVE) Ur Phencyclidine (PCP) (NEGATIVE) Urine Amphetamine (NEGATIVE) U Benzodiazepine Level (NEGATIVE) Urine Cocaine (NEGATIVE) Urine Marijuana (THC) (NEGATIVE) Specimen Received - Progress Progress: improved Progress Note: 10/11/17 13:02 Pt states, she feels better, her accucheck is 175, she denies pain or nausea, I explained our results, and the need to admit her for further hydration and observation of her cardiac and gastrointestinal status. She understood, but wants to go home and follow up with her physician in few days. She is fully alert and oriented x4, mentally competent of decision making. - Departure Time of Disposition: 13:04 Departure Disposition: AMA Clinical Impression: Dehydration, Hyperglycemia due to type 1 diabetes mellitus UTI (urinary tract infection) Qualifiers: Urinary tract infection type: site unspecified Hematuria presence: without hematuria Qualified Code(s): N39.0 - Urinary tract infection, site not specified Diabetes mellitus, insulin dependent (IDDM), uncontrolled Qualifiers: Diabetes mellitus complication status: with unspecified complications Qualified Code(s): E10.8 - Type 1 diabetes mellitus with unspecified complications Condition: Stable Critical Care Time: No Referrals: LYUDMILA ARIAS MD [Primary Care Provider] - Instructions: Hyperglycemia, Adult (DC) Additional Instructions: Rest x 2-3 days, drink plenty of fluids, return if severe pain, vomiting, fever > 102 F! Follow up with your physician in 2-3 days! Prescriptions: Cephalexin Mh 500 mg [Keflex 500 mg] 500 mg PO Q6H #287 capsule
[2017-10-11 11:17] LABS: A-aADO2 42; ABG HEMOGLOBIN 14.7; ABG POTASSIUM 4.1 (3.5-5.1); ABG SITE LEFT RADIAL; ALLEN TEST OK? Yes; ARTERIAL BLD GAS O2 SATURATION 92.2 % (95-100); ARTERIAL BLOOD GAS BASE EXCESS -3.9 (-2.0-2.0); ARTERIAL BLOOD GAS FIO2 21 %; ARTERIAL BLOOD GAS PCO2 31 mmHg (35-45); ARTERIAL BLOOD GAS PO2 69 mmHg (75-100); ARTERIAL BLOOD GAS pH 7.41 (7.35-7.45); HCO3- 19.6 (22-28); HGB O2 SAT 91.3 g/dF (94-100); Lactic Acid 1.7 (0.4-2.0); Methhemoglobin 0.1 % (1.4-1.5); paO2 pAO1 0.62
[2017-10-11] MEDS ORDERED: Sodium Chloride 0.9% 1000 ML 1,000 ML ONE (11:22)
--- NOTE | 2017-10-11 11:32 | XRAY ---
Indication: Chest pain. Comparison: July 18, 2017. Portable chest remains hyperinflated and clear with stable incidental left apical fibrosis/scarring and bilateral nipple shadows. Heart is not enlarged. Bony thorax intact again with minimal scoliosis. Impression: Stable nonacute hyperinflated chest with chronic features.
[2017-10-11 11:43] LABS: BASOPHIL % 0.8 % (0.0-0.4); Basophil (Absolute #) 0.09 (0-0.4); Eosinophil (Absolute #) 0.11 (0-0.5); Granulocyte Absolute (ANC) 8.16 (1.4-6.9); Granulocytes % 74.3 % (36.0-66.0); Hematocrit 44.3 % (35-47); Hemoglobin 15.1 gm/dl (12.0-16.0); Lymphocyte (Absolute #) 1.95 (1.0-4.6); Lymphocytes % 17.7 % (24.0-44.0); Mean Cell Volume 90.2 fl (78-100); Mean Corpuscular Hemoglobin 30.8 pg (26-32); Mean Corpuscular Hgb Concent. 34.1 g/dl (32-36); Mean Platelet Volume 9.1 fl (6-9.5); Monocyte (Absolute #) 0.68 (0.0-1.3); Monocytes % 6.2 % (0.0-12.0); Platelet Count 365 K/mm3 (150-450); Red Blood Count 4.91 M/mm3 (4.1-5.4); Red Cell Distribution Width 14.2 % (11.5-14.0)
[2017-10-11 12:29] LABS: ALKALINE PHOSPHATASE 118 U/L (38-126); BLOOD UREA NITROGEN 31 mg/dL (7-17); CHLORIDE 105 mmol/L (98-107); CK-Creatinine Phosphokinase 69 U/L (30-135); Calcium 10.1 mg/dL (8.4-10.2); Carbon Dioxide 17 mmol/L (22-30); Creatinine 1 1.38 mg/dL (0.52-1.04); Glucose 307 mg/dL (74-106); LIPASE 22 U/L (23-300); Potassium 4.3 mmol/L (3.5-5.1); SGOT/AST 16 U/L (14-36); SGPT/ALT 15 U/L (0-35); SODIUM 140 mmol/L (137-145); Total Protein 6.9 g/dL (6.3-8.2)
[2017-10-11 12:42] LABS: Appearance CLEAR (CLEAR); Bilirubin NEGATIVE (NEGATIVE); Glucose 1000 mg/dL (NEGATIVE); Ketones LARGE (NEGATIVE); Leukocyte Esterase 1+ (NEGATIVE); Nitrite NEGATIVE (NEGATIVE); Protein,Urine Dip NEGATIVE (Negative); Urobilinogen NORMAL mg/dL (0-1)
[2017-10-11 12:43] LABS: NT PRO BNP 73.3 pg/mL (0-900)
[2017-10-11 12:43] LABS: Bacteria FEW /HPF (NEGATIVE); Epithelial Cells RARE /HPF (FEW); RBC 0-2 /HPF (0-2)
[2017-10-11 12:49] LABS: TROPONIN < 0.012 ng/mL (0.000-0.034)
[2017-10-11 12:52] VITALS: BP 111/60; PULSE 86
[2017-10-11 12:58] LABS: Amphetamine,Urine NEGATIVE (NEGATIVE); Barbiturate,Urine NEGATIVE (NEGATIVE); Benzodiazepine,Urine POSITIVE (NEGATIVE); Cocaine,Urine NEGATIVE (NEGATIVE); Methadone,Urine NEGATIVE (NEGATIVE); Opiate,Urine NEGATIVE (NEGATIVE); PCP,Urine NEGATIVE (NEGATIVE); THC,Urine NEGATIVE (NEGATIVE)
[2017-10-11] MEDS ORDERED: KEFLEX 500 MG PO ONE (13:01)
[2017-10-11] MEDS ORDERED: KEFLEX 500 MG ONE (13:04)
[2017-10-11 13:07] VITALS: O2SAT 97
== END 2017-10-11 13:14 | disposition left against medical advice (07) ==
LOC: ED 10:43
DX: E86.0 Dehydration (principal); E10.65 Type 1 diabetes mellitus with hyperglycemia; Z79.4 Long term (current) use of insulin; N39.0 Urinary tract infection, site not specified; Z79.899 Other long term (current) drug therapy
CPT/HCPCS: 36000; 36415; 36600; 71045; 80053; 80307; 81000; 82375; 82550; 82803; 82962; 83605; 83690; 83735; 83880; 84443; 84484; 85025; 87086; 93005; 96360; 99284; A9270-GY

== ENCOUNTER 2019-02-13 10:30 | Observation (INO) | payer OTHER ==
--- NOTE | 2019-02-13 10:38 | ERPHSYRPT ---
- History of Present Illness Time Seen by Provider: 02/13/19 10:38 Source: patient, family, old records Exam Limitations: no limitations Physician History: PT IS A 58 Y/O DM WITH A HX OF COPD AND CAD S/P STENT X 2 PRESENTS C/O "IM FIGHTING A COLD AND NOT GETTING BETTER. " SAW PCP 3 D AGO AND WAS STARTED ON A ZPAK. REPORTS WORSENING DYSPNEA WITH MINIMAL EXERTION. NO PND/ORTHOP/LE ASYM/ LONG TROPS. NO FEVER + CHILLS. + NAUSEA NO VOMITING OR DIARRHEA. NO DYSURIA/ HEMATURIA/VAG BLEED OR DC. NO MELENA/HEMATOCHEZIA. NO SICK CONTACTS. + POST NASSAL DRIP. + YELLOW THICK SPUTUM CHANGE FROM USUAL CLEAR. NO HX OF CHF. ALSO STARTED ON STEROIDS. REPORTS BS HIGH IN 400'S AND HAS INSULIN PUMP PMHX HTN, DM, COPD, CAD PSHX STENTS UTERUS MEDS REVIEWED ALL REVIEWED +TOB DENIES ETOH/ILLICITS FHX + CAD > 65 Allergies/Adverse Reactions: orphenadrine citrate [From Norflex] Allergy (Intermediate, Verified 02/13/19 11: 13) severe vomiting hydrocodone bitartrate [From Nazlini] Adverse Reaction (Mild, Verified 02/13/19 11 :13) nausea vomiting levofloxacin [From Levaquin] Adverse Reaction (Mild, Verified 02/13/19 11:13) Nausea and Vomiting Home Medications: Insulin Lispro [Humalog] 1 unit SQ UD 11/14/16 [History] Metoclopramide HCl [Reglan] 10 mg PO TID 11/14/16 [History] PANTOPRAZOLE 40 mg Tablet [Protonix 40MG Tablet] 40 mg PO DAILY 11/14/16 [ History] Promethazine HCl 25 mg [Phenergan 25 mg] 25 mg PO Q6HPRN PRN 11/14/16 [ History] Alprazolam 1 mg [Xanax 1 mg] 1 mg PO HS 07/18/17 [History] Azithromycin 250 mg PO DAILY 02/13/19 [History] Guaifenesin [Mucinex] 600 mg PO UD 02/13/19 [History] Hx Tetanus, Diphtheria Vaccination/Date Given: Yes Hx Influenza Vaccination/Date Given: Yes Hx Pneumococcal Vaccination/Date Given: Yes - Review of Systems Constitutional: No Symptoms, No Fever, No Chills, No Fatigue, No Lethargy, No Malaise, No Night Sweats, No Weakness, No Weight Loss Eyes: No Symptoms, No Discharge, No Eye Pain, No Eye Redness, No Itchy, No Photophobia, No Tearing, No Vision Changes, No Double Vision, No Foreign Body Sensation Ears, Nose, & Throat: No Symptoms, Nose Congestion, No Ear Pain, No Ear Discharge, No Hearing Changes, No Tinnitus, No Nose Discharge, No Epistaxis, No Mouth Pain, No Mouth Swelling, No Throat Pain, No Throat Swelling, No Hoarse, No Painful Swallowing, No Stridor Respiratory: No Symptoms, Cough, Dyspnea, Dyspnea on Exertion (COTO), No Cyanosis , No Stridor, No Wheezing Cardiac: No Symptoms, No Chest Pain, No Edema, No Palpitations, No Syncope, No Orthopnea Abdominal/Gastrointestinal: No Symptoms, Nausea, No Abdominal Pain, No Vomiting , No Diarrhea, No Constipation, No Hematemesis, No Hematochezia, No Melena, No Dysphagia, No Appetite Changes Genitourinary Symptoms: No Symptoms, No Dysuria, No Frequency, No Hematuria, No Hesitancy, No Incontinence, No Urgency, No Urinary Retention, No Flank Pain, No Menorrhagia, No , No Vaginal Bleeding, No Vaginal Discharge Musculoskeletal: No Symptoms, No Arthralgias, No Back Pain, No Neck Pain, No Deformity, No Fall, No Injury, No Joint Redness, No Joint Pain, No Joint Swelling, No Myalgias Skin: No Symptoms, No Cellulitis, No Decubiti, No Induration, No Pruritis, No Rash, No Skin Lesions, No Dryness Neurological: No Symptoms, No Dizziness, No Focal Weakness, No Gait Changes, No Headache, No Irritability, No Lethargy, No Paralysis, No Parasthesia, No Seizure , No Sensory Changes, No Speech Changes, No Tics, No Tremors, No Vertigo Psychological: No Symptoms, No Alcohol Abuse, No Drug Abuse, No Anxiety, No Depression, No Suicidal Ideations, No Homicidal Ideations, No Emotional Lability , No Hallucinations, No Memory Loss, No Mood Changes Endocrine: No Symptoms, No Polyuria, No Polydipsia, No Hair Changes, No Cold Intolerance, No Excessive Sweating, No Goiter Hematologic/Lymphatic: No Symptoms, No Anemia, No Blood Clots, No Easy Bleeding , No Gum Bleeding, No Easy Bruising, No Adenopathy Immunological/Allergic: No Symptoms All Other Systems: Reviewed and Negative - Past Medical History Pertinent Past Medical History: Yes Neurological History: No Pertinent History ENT History: No Pertinent History Cardiac History: Coronary Artery Disease Respiratory History: COPD Endocrine Medical History: Diabetes Type I Musculoskeletal History: Degenerative Disk Disease, Other GI Medical History: GERD History: Renal Disease Psycho-Social History: Anxiety, Depression Female Reproductive Disorders: No Pertinent History Other Medical History: HAS INSULIN PUMP. cardiac STENT PLACEMENT X 2, back problem, renal failure - Past Surgical History Past Surgical History: Yes Neuro Surgical History: No Pertinent History Cardiac: Cardiac Catheterization, Cardiac Stent Respiratory: No Pertinent History Gastrointestinal: Cholecystectomy Genitourinary: No Pertinent History Musculoskeletal: Other Female Surgical History: Tubal Ligation Other Surgical History: BUNONECTOMY. BACK SURGERY X2 - Social History Smoking Status: Current every day smoker How long have you smoked: 40 years Exposure to second hand smoke: Yes Alcohol Use: None Drug Use: none Patient Lives Alone: No Significant Family History: heart disease, diabetes, hypertension - Nursing Vital Signs Nursing Vital Signs: Initial Vital Signs Temperature 97.4 F 02/13/19 11:01 Pulse Rate 104 H 02/13/19 11:01 Respiratory Rate 20 02/13/19 11:01 Blood Pressure 112/68 02/13/19 11:01 O2 Sat by Pulse Oximetry 99 02/13/19 11:01 Pain Scale Pain Intensity 0 - Physical Exam General Appearance: no apparent distress, mild distress, alert Eye Exam: PERRL/EOMI, eyes nml inspection, other (fundi normal elham), No scleral icterus, No pale conjunctivae, No photophobia, No EOM palsy/anisocoria Ears, Nose, Throat Exam: normal ENT inspection, TMs normal, pharynx normal, TM abnormal (L), other (uvula midline, floor of mouth soft), No moist mucous membranes, No dry mucous membranes, No TM abnormal (R), No pharyngeal erythema, No tonsillar exudate Neck Exam: normal inspection, non-tender, supple, full range of motion, No meningismus, No mass, No Brudzinski, No Kernig's, No carotid bruit, No JVD, No limited range of motion, No lymphadenopathy, No midline tenderness, No thyromegaly Respiratory Exam: normal breath sounds, lungs clear, airway intact, diminished breath sounds, wheezing, No chest tenderness, No respiratory distress, No accessory muscle use, No prolonged expirations, No crackles/rales, No rhonchi, No stridor, No pleural rub Cardiovascular Exam: regular rate/rhythm, normal heart sounds, normal peripheral pulses, tachycardia, capillary refill <2 sec, No murmur, No friction rub, No gallop, No bradycardia, No irregular, No capillary refill 2-3 sec, No capillary refill >3 sec, No edema, No pulse deficit Gastrointestinal/Abdomen Exam: soft, normal bowel sounds, No tenderness, No distention, No mass, No guarding, No ecchymosis, No pulsatile mass, No rebound, No hernia, No hepatomegaly, No organomegaly, No splenomegaly, No bruit Pelvic Exam: normal external exam Rectal Exam: deferred Back Exam: normal inspection, normal range of motion, other (neg slr elham, no sacral anesthesia, dtr 2/4 elham patella), No CVA tenderness, No vertebral tenderness, No rash, No decreased range of motion, No muscle spasm, No point tenderness Extremity Exam: normal inspection, normal range of motion, pelvis stable, No amputations, No contusions, No calf tenderness, No deformities, No lacerations, No parasthesia, No paralysis, No inflammation, No joint swelling, No limited range of motion, No pedal edema, No swelling, No tenderness Neurologic Exam: alert, oriented x 3, cooperative, [employer] reseller II-XII 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 as tested, normal mood/affect, nml cerebellar function, nml station & gait, sensation nml, No motor deficits, No sensory deficit, No disoriented, No confusion, No agitation, No uncooperative, No intoxicated appearance, No depressed mood/affect , No motor weakness, No facial droop, No slurred speech, No aphasia, No dysarthria, No abnormal gait, No abnormal cerebellar tests, No abnormal [employer] reseller II- XII, No EOM palsy Skin Exam: normal color, warm, dry, No rash, No petechiae, No jaundice, No abrasion, No cyanosis, No diaphoresis, No decubitus, No embolic lesions, No ecchymosis, No jaundice, No laceration, No mottled, No pale Lymphatic Exam: No adenopathy SpO2 Interpretation: normal O2 Delivery: Room Air - Course Nursing assessment & vital signs reviewed: Yes EKG Interpreted by Me: RATE (100), NORMAL AXIS, NORMAL INTERVALS, Other (Q W AND ST DEPRESSION 2, 3, AVF, V5 OLD C2 10/11 2017) Ordered Tests: Active Orders 24 hr Category Date Time Status [employer] 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 STAT Care 02/13/19 10:52 Active EKG-ER Only STAT Care 02/13/19 10:51 Active IV Insertion STAT Care 02/13/19 10:51 Active Pulse Oximetry (ED) STAT Care 02/13/19 10:51 Active CHEST 2 VIEWS (PA AND LAT) Stat Exams 02/13/19 10:39 Completed CHEST WITH CONTRAST [CT] Stat Exams 02/13/19 13:19 Taken ARTERIAL BLOOD GASES Stat Lab 02/13/19 10:51 Completed BLOOD CULTURE Stat Lab 02/13/19 11:15 Received CBC W DIFF Stat Lab 02/13/19 10:51 Completed CMP Stat Lab 02/13/19 11:15 Completed Lactic Acid Stat Lab 02/13/19 10:51 Completed NT PRO BNP Stat Lab 02/13/19 11:15 Completed TROPONIN Q3H Lab 02/13/19 11:15 Completed TROPONIN Q3H Lab 02/13/19 14:00 Ordered TROPONIN Q3H Lab 02/13/19 17:00 Ordered TROPONIN Q3H Lab 02/13/19 20:00 Ordered TROPONIN Q3H Lab 02/13/19 23:00 Ordered UA W/RFX UR CULTURE Stat Lab 02/13/19 10:52 Uncollected Peak Expiratory Flow Rate ONCE RT 02/13/19 11:43 Active Respiratory Therapy Assessment DAILY RT 02/13/19 11:42 Active Medication Summary Generic Name Dose Route Start Last Admin Trade Name Freq PRN Reason Stop Dose Admin Sodium Chloride 1,000 mls @ 999 mls/hr 02/13/19 12:35 02/13/19 13:03 Sodium Chloride 0.9% 1000 Ml IV 02/13/19 13:35 999 mls/hr .Q1H1M STA Administration Discontinued Medications Generic Name Dose Route Start Last Admin Trade Name Freq PRN Reason Stop Dose Admin Albuterol/Ipratropium 3 ml 02/13/19 10:51 02/13/19 11:45 Duoneb 0.5-3 Mg/3 Ml Neb IH 02/13/19 10:52 3 ml STAT ONE Administration Albuterol/Ipratropium Confirm 02/13/19 11:20 Duoneb 0.5-3 Mg/3 Ml Neb Administered 02/13/19 11:21 Dose 3 ml IH .STK-MED ONE Albuterol/Ipratropium 3 ml 02/13/19 11:34 02/13/19 11:30 Duoneb 0.5-3 Mg/3 Ml Neb IH 02/13/19 11:35 3 ml STAT ONE Administration Albuterol/Ipratropium 3 ml 02/13/19 11:35 02/13/19 12:54 Duoneb 0.5-3 Mg/3 Ml Neb IH 02/13/19 11:36 Not Given STAT ONE Albuterol/Ipratropium Confirm 02/13/19 11:38 Duoneb 0.5-3 Mg/3 Ml Neb Administered 02/13/19 11:39 Dose 6 ml IH .STK-MED ONE Aspirin 324 mg 02/13/19 12:07 02/13/19 12:13 Baby Aspirin 81 Mg Chew PO 02/13/19 12:08 324 mg STAT ONE Administration Aspirin Confirm 02/13/19 12:11 Baby Aspirin 81 Mg Chew Administered 02/13/19 12:12 Dose 324 mg .ROUTE .STK-MED ONE Cefepime HCl 1 g 02/13/19 13:15 Maxipime 1 Gm IV 02/13/19 13:16 NOW ONE Sodium Chloride 1,000 mls @ 999 mls/hr 02/13/19 10:51 02/13/19 13:14 Sodium Chloride 0.9% 1000 Ml IV 02/13/19 11:51 Infused .Q1H1M STA Infusion Sodium Chloride Confirm 02/13/19 11:31 Sodium Chloride 0.9% 1000 Ml Administered 02/13/19 11:32 Dose 1,000 mls @ ud .ROUTE .STK-MED ONE Sodium Chloride Confirm 02/13/19 13:03 Sodium Chloride 0.9% 1000 Ml Administered 02/13/19 13:04 Dose 1,000 mls @ ud .ROUTE .STK-MED ONE Ondansetron HCl 4 mg 02/13/19 12:58 Zofran 4 Mg/2 Ml Vial IV 02/13/19 12:59 STAT ONE Lab/Rad Data: Laboratory Result Diagrams 02/13/19 10:51 02/13/19 11:15 Laboratory Results 02/13/19 02/13/19 02/13/19 Range/Units 11:15 11:15 11:15 WBC (4.0-10.5) K/mm3 RBC (4.1-5.4) M/mm3 Hgb (12.0-16.0) gm/dl Hct (35-47) % MCV (78-100) fl MCH (26-32) pg MCHC (32-36) g/dl RDW (11.5-14.0) % Plt Count (150-450) K/mm3 MPV (6-9.5) fl Gran % (36.0-66.0) % Eos # (Auto) (0-0.5) Absolute Lymphs (auto) (1.0-4.6) Absolute Monos (auto) (0.0-1.3) Lymphocytes % (24.0-44.0) % Monocytes % (0.0-12.0) % Eosinophils % (0.00-5.0) % Basophils % (0.0-0.4) % Absolute Granulocytes (1.4-6.9) Basophils # (0-0.4) Puncture Site pCO2 (35-45) mmHg pO2 (75-100) mmHg Base Excess (-2.0-2.0) O2 Saturation (94-100) g/dF ABG pH (7.35-7.45) ABG HCO3 (22-28) ABG O2 Sat (Measured) (95-100) % Luis Test A-a Gradient a/A Ratio Hemoglobin Carboxyhemoglobin (0.0-6.9) % THgb Methemoglobin (1.4-1.5) % Potassium 4.5 (3.5-5.1) Temperature C POC O2 Flow Rate % Sodium 139 (137-145) mmol/L Chloride 98 (98-107) mmol/L Carbon Dioxide 19 L (22-30) mmol/L Anion Gap 26.4 H (5-15) MEQ/L BUN 28 H (7-17) mg/dL Creatinine 1.31 H (0.52-1.04) mg/dL Estimated GFR 44.5 ML/MIN Glucose 397 H (74-106) mg/dL Lactic Acid (0.4-2.0) Calcium 10.4 H (8.4-10.2) mg/dL Total Bilirubin 0.60 (0.2-1.3) mg/dL AST 22 (14-36) U/L ALT 21 (0-35) U/L Alkaline Phosphatase 148 H (38-126) U/L Troponin I 0.082 H* (0.000-0.034) ng/mL NT-Pro-B Natriuret Pep 90.5 (0-900) pg/mL Serum Total Protein 7.8 (6.3-8.2) g/dL Albumin 4.1 (3.5-5.0) g/dL Influenza Type A Ag NEGATIVE (NEGATIVE) Influenza Type B Ag NEGATIVE (NEGATIVE) RSV (PCR) NEGATIVE (Negative) 02/13/19 02/13/19 Range/Units 10:51 10:51 WBC 12.9 H (4.0-10.5) K/mm3 RBC 4.41 (4.1-5.4) M/mm3 Hgb 13.8 (12.0-16.0) gm/dl Hct 42.3 (35-47) % MCV 95.9 (78-100) fl MCH 31.3 (26-32) pg MCHC 32.6 (32-36) g/dl RDW 14.0 (11.5-14.0) % Plt Count 338 (150-450) K/mm3 MPV 9.3 (6-9.5) fl Gran % 76.1 H (36.0-66.0) % Eos # (Auto) 0.04 (0-0.5) Absolute Lymphs (auto) 2.25 (1.0-4.6) Absolute Monos (auto) 0.75 (0.0-1.3) Lymphocytes % 17.5 L (24.0-44.0) % Monocytes % 5.8 (0.0-12.0) % Eosinophils % 0.3 (0.00-5.0) % Basophils % 0.3 (0.0-0.4) % Absolute Granulocytes 9.80 H (1.4-6.9) Basophils # 0.04 (0-0.4) Puncture Site RIGHT RADIAL pCO2 32 L (35-45) mmHg pO2 68 L (75-100) mmHg Base Excess -7.9 L (-2.0-2.0) O2 Saturation 89.4 L (94-100) g/dF ABG pH 7.33 L (7.35-7.45) ABG HCO3 16.9 L* (22-28) ABG O2 Sat (Measured) 94.1 L (95-100) % Luis Test YES A-a Gradient 42 a/A Ratio 0.62 Hemoglobin 13.5 Carboxyhemoglobin 4.1 (0.0-6.9) % THgb Methemoglobin 0.9 L (1.4-1.5) % Potassium 4.2 (3.5-5.1) Temperature 37.0 C POC O2 Flow Rate 21 % Sodium (137-145) mmol/L Chloride (98-107) mmol/L Carbon Dioxide (22-30) mmol/L Anion Gap (5-15) MEQ/L BUN (7-17) mg/dL Creatinine (0.52-1.04) mg/dL Estimated GFR ML/MIN Glucose (74-106) mg/dL Lactic Acid 1.1 (0.4-2.0) Calcium (8.4-10.2) mg/dL Total Bilirubin (0.2-1.3) mg/dL AST (14-36) U/L ALT (0-35) U/L Alkaline Phosphatase (38-126) U/L Troponin I (0.000-0.034) ng/mL NT-Pro-B Natriuret Pep (0-900) pg/mL Serum Total Protein (6.3-8.2) g/dL Albumin (3.5-5.0) g/dL Influenza Type A Ag (NEGATIVE) Influenza Type B Ag (NEGATIVE) RSV (PCR) (Negative) - Progress Progress: improved Progress Note: 02/13/19 12:57 CTA AFTER NEBX X2. TACHY 114 PT REFUSED 3RD NEB. PT FEELS NAUSEATED WILL GIVE ZOFRAN REQUEST IMAGING WHICH WAS DELAYED FOR NEBS. TRAFFIC CLERK REFUSING TO INJECT GFR 44.[address] MONTE HE AGREES TO PERFORM CT SINCE GFR IS GREATER THAN 33 AND PT IS BEING HYDRATED. PLAN ADMISSION. GAP 26 SENT SERUM KETONES HYDRATED. HAS GAP BUT CO2 IS 19 10/16/19 13:00 02/13/19 13:16 CXR READ NAD MEETS SEPSIS CRITERIA FOR WBC, SUSPECTED SOURCE, HR > 90 CALL TO ADMITTING. AWAIT CT CHEST AWAIT UA WILL GIVE CEFIPIME. AWAIT CRP AND SERUM KETONES BUT I DO NOT THINK PT IS PENELOPE DKA SHE MAY HAVE VERY MILD DKA. BCX COMPLETE LACTATE NEG 02/13/19 13:21 DW PROUHIT ACCEPTS ADMIT AGREES ICU CARE TRANSFERRED NO INSULIN OR DRIP AT THIS TIME. FINDINGS REVIEWED WITH PT ALL QUSTIONS ANSWERED TO HER SATISFACTON 02/13/19 13:33 CT CHEST NO OBVIOUS INFILTRATE OR PE. RIGHT SUPRAHILAR SOFT TISSUE MASS WORRISOME FOR MALIGNANCY WITH RIGHT SUPRAHILAR LAD POSSIBLY METASTASIS FINDINGS REVIEWED WITH PT. SHE WOULD LIKE PHENERGAN. NOT ABLE TO URINATE REFUSING CATH/ SBP 115. HR 117 Counseled pt/family regarding: drug and/or alcohol abuse, lab results, diagnosis , need for follow-up, rad results, smoking cessation - Departure Departure Disposition: Observation Clinical Impression: Elevated troponin, COPD (chronic obstructive pulmonary disease), Smoker, Hyperglycemia, Sepsis Condition: Stable Critical Care Time: No Referrals: LYUDMILA ARIAS MD [Primary Care Provider] - Instructions: Chronic Obstructive Pulmonary Disease
[2019-02-13] MEDS ORDERED: Sodium Chloride 0.9% 1000 ML 1,000 ML IV STA ×2 (10:51→12:35)
[2019-02-13] MEDS ORDERED: DUONEB 0.5-3 MG/3 ml Neb IH ONE ×5 (10:51→11:38)
[2019-02-13 11:28] LABS: BASOPHIL % 0.3 % (0.0-0.4); Basophil (Absolute #) 0.04 (0-0.4); Eosinophil % 0.3 % (0.00-5.0); Eosinophil (Absolute #) 0.04 (0-0.5); Hematocrit 42.3 % (35-47); Hemoglobin 13.8 gm/dl (12.0-16.0); Lymphocyte (Absolute #) 2.25 (1.0-4.6); Lymphocytes % 17.5 % (24.0-44.0); Mean Cell Volume 95.9 fl (78-100); Mean Corpuscular Hemoglobin 31.3 pg (26-32); Mean Corpuscular Hgb Concent. 32.6 g/dl (32-36); Mean Platelet Volume 9.3 fl (6-9.5); Monocyte (Absolute #) 0.75 (0.0-1.3); Monocytes % 5.8 % (0.0-12.0); Neutrophil % 76.1 % (36.0-66.0); Platelet Count 338 K/mm3 (150-450); Red Blood Count 4.41 M/mm3 (4.1-5.4); White Blood Count 12.9 K/mm3 (4.0-10.5)
[2019-02-13 11:30] LABS: A-aADO2 42; ABG HEMOGLOBIN 13.5; ABG POTASSIUM 4.2 (3.5-5.1); ARTERIAL BLD GAS O2 SATURATION 94.1 % (95-100); ARTERIAL BLOOD GAS BASE EXCESS -7.9 (-2.0-2.0); ARTERIAL BLOOD GAS FIO2 21 %; ARTERIAL BLOOD GAS PCO2 32 mmHg (35-45); ARTERIAL BLOOD GAS PO2 68 mmHg (75-100); ARTERIAL BLOOD GAS pH 7.33 (7.35-7.45); CARBOXYHEMOGLOBIN 4.1 % THgb (0.0-6.9); HCO3- 16.9 (22-28); HGB O2 SAT 89.4 g/dF (94-100); Lactic Acid 1.1 (0.4-2.0); Methhemoglobin 0.9 % (1.4-1.5); paO2 pAO1 0.62
[2019-02-13 11:31] LABS: ABG SITE RIGHT RADIAL; ALLEN TEST OK? YES
[2019-02-13] MEDS ORDERED: Sodium Chloride 0.9% 1000 ML 1,000 ML ONE ×2 (11:31→13:03)
[2019-02-13 11:45] LABS: ALBUMIN 4.1 g/dL (3.5-5.0); ANION GAP 26.4 MEQ/L (5-15); BILIRUBIN,TOTAL 0.6 mg/dL (0.2-1.3); Calcium 10.4 mg/dL (8.4-10.2); Creatinine 1 1.31 mg/dL (0.52-1.04); NT PRO BNP 90.5 pg/mL (0-900); Potassium 4.5 mmol/L (3.5-5.1); Total Protein 7.8 g/dL (6.3-8.2)
[2019-02-13] MEDS ORDERED: BABY ASPIRIN 81 MG CHEW PO ONE (12:07)
[2019-02-13 12:09] LABS: INFLUENZA A NEGATIVE (NEGATIVE); INFLUENZA B NEGATIVE (NEGATIVE); RESPIRATORY SYNCTIAL VIRUS NEGATIVE (Negative)
[2019-02-13] MEDS ORDERED: BABY ASPIRIN 81 MG CHEW ONE (12:11)
--- NOTE | 2019-02-13 12:38 | XRAY ---
Indication: Cough and weakness. Comparison: January 07, 2019. AP/lateral chest remains hyperinflated with left apical fibrosis/scarring. No focal infiltrate, consolidation, or large effusion. Heart and mediastinal structures within normal limits. Bony thorax intact. Impression: Stable nonacute hyperinflated chest with left apical fibrosis/scarring.
[2019-02-13] MEDS ORDERED: Zofran 4 MG/2 ML VIAL IV ONE (12:58)
[2019-02-13] MEDS ORDERED: MAXIPIME 1 GM IV ONE (13:15)
[2019-02-13] MEDS ORDERED: Phenergan 25 MG INJ IV ONE (13:37)
--- NOTE | 2019-02-13 14:04 | XRAY ---
Indication: Cough and short of breath. Elevated d-dimer. Multiple contiguous axial images obtained through the chest using 80 cc Isovue 370 contrast and PE protocol. Comparison: None There is poor opacification of the pulmonary arteries and minimal respiration artifact limits evaluation for pulmonary embolus. No obvious central pulmonary embolus. Heart is not enlarged. Aorta is mildly arteriosclerotic without aneurysm/dissection. A few small centimeter/subcentimeter mediastinal lymph nodes. No pathologic mediastinal/hilar lymphadenopathy. Lungs are hyperinflated with mild pulmonary emphysema. Scattered fibrosis/scarring bilaterally greatest in the left upper lobe. Small 2 cm focus of irregular density in the anterior right lower lobe and posterior left lower lobe may represent more focal fibrosis/scarring with masses not completely excluded. Small medial left upper lobe calcified granuloma. No infiltrate or effusion. Bony thorax intact. Limited upper abdomen demonstrates incompletely visualized prominent biliary tree. Impression: 1. Pulmonary embolus evaluation limited due to poor opacification and respiration artifact. No obvious central pulmonary embolus. 2. Mild pulmonary emphysema with scattered fibrosis/scarring. 3. Bilateral lower lobe irregular densities may represent more focal fibrosis/scarring. Malignancy not completely excluded. Findings are incidentally new with respect to CT abdomen 07/21/16. 4. Incompletely visualized prominent biliary tree similar in appearance to prior CT abdomen. CTDI 16.67
[2019-02-13] MEDS ORDERED: EPINEPHRINE ABBOJECT 1 MG ONE (14:20)
[2019-02-13] MEDS ORDERED: Phenergan 25 MG INJ IM STA (14:21)
[2019-02-13] MEDS ORDERED: TYLENOL 325 MG PO ONE (14:21)
[2019-02-13] MEDS ORDERED: Phenergan 25 MG INJ ONE (14:28)
[2019-02-13] MEDS ORDERED: MAXIPIME 1 GM** 1 G in Sodium Chloride 100ML MINI-BAG PLUS 100 ML IV ONE (14:45)
[2019-02-13] MEDS ORDERED: NovoLOG Insulin SQ PRN (16:21)
[2019-02-13] MEDS ORDERED: TYLENOL 325 MG PO PRN (16:22)
[2019-02-13] MEDS ORDERED: PHARMACY DOSING REQUEST MC ONE (16:31)
[2019-02-13] MEDS: Sodium Chloride 0.9% 1000 ML 1,000 ML IV SCH ×2 (16:37→23:54)
[2019-02-13] MEDS ORDERED: PHENERGAN 25 MG PO PRN (17:14)
[2019-02-13] MEDS ORDERED: Ventolin Hfa MDI IH PRN (17:14)
[2019-02-13] MEDS ORDERED: NON-FORMULARY ITEM (Insulin Lispro 1 UNIT) SQ SCH (17:15)
[2019-02-13] MEDS ORDERED: PATIENT OWN MEDICATION IJ PRN (17:17)
[2019-02-13] MEDS ORDERED: NovoLOG Insulin SQ ONE (17:59)
[2019-02-13] MEDS: DUONEB 0.5-3 MG/3 ml Neb IH SCH (19:25)
[2019-02-13] MEDS ORDERED: NOVOLIN R INSULIN (FOR DRIPS)** 100 UNITS in Sodium Chloride 0.9% 100 ML IVPB 100 ML IV PRN (19:40)
[2019-02-13] MEDS ORDERED: Sodium Chloride 0.9% 100 ML IVPB 100 ML IV ONE (19:53)
[2019-02-13] MEDS ORDERED: NovoLIN R ONE (20:08)
[2019-02-13] MEDS: MAXIPIME 1 GM** 1 G in Sodium Chloride 100ML MINI-BAG PLUS 100 ML IV SCH (21:24)
[2019-02-13] MEDS: Cyclobenzaprine 10 MG PO SCH (21:24)
[2019-02-13] MEDS: Reglan 10 MG PO SCH (21:24)
[2019-02-13 21:55] LABS: Appearance CLEAR (CLEAR); Bilirubin NEGATIVE (NEGATIVE); Blood SMALL Ery/ul (0-5); Glucose >=500 mg/dL (NEGATIVE); Hyaline Casts 0-2 /LPF (0-2); Ketones MODERATE (NEGATIVE); Leukocyte Esterase TRACE (NEGATIVE); Mucus SLIGHT /HPF (NEGATIVE); Nitrite POSITIVE (NEGATIVE); Protein,Urine Dip NEGATIVE (Negative); Specific Gravity 1.023 (1.005-1.025); Urobilinogen NEGATIVE mg/dL (0-1)
[2019-02-13] MEDS ORDERED: XANAX 1 MG PO SCH (22:00)
[2019-02-14 04:44] LABS: Hematocrit 33.5 % (35-47); Mean Cell Volume 95.4 fl (78-100); Mean Corpuscular Hemoglobin 31.3 pg (26-32); Mean Corpuscular Hgb Concent. 32.8 g/dl (32-36); Platelet Count 315 K/mm3 (150-450); Red Blood Count 3.51 M/mm3 (4.1-5.4); Red Cell Distribution Width 13.9 % (11.5-14.0)
[2019-02-14 04:50] LABS: White Blood Count 15.4 K/mm3 (4.0-10.5)
[2019-02-14 05:03] LABS: ALBUMIN 2.7 g/dL (3.5-5.0); ALKALINE PHOSPHATASE 103 U/L (38-126); ANION GAP 15.2 MEQ/L (5-15); BLOOD UREA NITROGEN 27 mg/dL (7-17); CHLORIDE 107 mmol/L (98-107); Carbon Dioxide 19 mmol/L (22-30); Glucose 167 mg/dL (74-106); Potassium 4.4 mmol/L (3.5-5.1); SGOT/AST 60 U/L (14-36); SGPT/ALT 20 U/L (0-35); SODIUM 137 mmol/L (137-145); Total Protein 5.5 g/dL (6.3-8.2)
[2019-02-14 05:05] LABS: Calcium 8.7 mg/dL (8.4-10.2)
--- NOTE | 2019-02-14 08:57 | PCM.SSS ---
History of Present Illness - Chief Complaint Chief Complaint: INCREASED SHORTNESS OF BREATH FOR 1 WEEK History of Present Illness: .PT IS A 58 Y/O DM WITH A HX OF COPD AND CAD S/P STENT X 2 PRESENTS C/O "IM FIGHTING A COLD AND NOT GETTING BETTER. " SAW PCP 3 D AGO AND WAS STARTED ON A ZPAK. REPORTS WORSENING DYSPNEA WITH MINIMAL EXERTION. NO PND/ORTHOP/LE ASYM/ LONG TROPS. NO FEVER + CHILLS. + NAUSEA NO VOMITING OR DIARRHEA. NO DYSURIA/ HEMATURIA/VAG BLEED OR DC. NO MELENA/HEMATOCHEZIA. NO SICK CONTACTS. + POST NASSAL DRIP. + YELLOW THICK SPUTUM CHANGE FROM USUAL CLEAR. NO HX OF CHF. ALSO STARTED ON STEROIDS. REPORTS BS HIGH IN 400'S AND HAS INSULIN PUMP. PATIENT INSULIN PUMP HAS BEEN NOT WORKING WELL RECENTLY AND CAUSING VERY HIGH BLOOD SUGARS. PATIENT DENIES ANY CHEST PAIN OR NAUSEA OR VOMITING. - Review of Systems Constitutional: No Fever, No Chills Eyes: No Symptoms Ears, Nose, & Throat: No Symptoms Respiratory: Cough, Orthopnea, Short Of Breath Cardiac: No Chest Pain, No Edema, No Syncope Abdominal/Gastrointestinal: No Abdominal Pain, No Nausea, No Vomiting, No Diarrhea, No Hematemesis, No Hematochezia, No Melena Genitourinary Symptoms: No Dysuria Musculoskeletal: No Back Pain, No Neck Pain Skin: No Rash Neurological: No Dizziness, No Focal Weakness, No Sensory Changes Psychological: No Symptoms Endocrine: No Symptoms Hematologic/Lymphatic: No Symptoms Immunological/Allergic: No Symptoms Medications & Allergies Home Medications: Home Medication List Insulin Lispro [Humalog] 1 unit SQ UD 11/14/16 [History Confirmed 02/13/19] Metoclopramide HCl [Reglan] 10 mg PO TID 11/14/16 [History Confirmed 02/13/19] PANTOPRAZOLE 40 mg Tablet [Protonix 40MG Tablet] 40 mg PO DAILY 11/14/16 [ History Confirmed 02/13/19] Promethazine HCl 25 mg [Phenergan 25 mg] 25 mg PO Q6HPRN PRN 11/14/16 [ History Confirmed 02/13/19] Albuterol Sulfate [Albuterol Sulfate Hfa] 2 puff IH Q4-6HPRN PRN #1 [id number] 07/18/17 [Rx Confirmed 02/13/19] Alprazolam 1 mg [Xanax 1 mg] 1 mg PO HS 07/18/17 [History Confirmed ] Cyclobenzaprine HCl 10 mg [Cyclobenzaprine 10 MG] 10 mg PO QID 02/13/19 [ History Confirmed 02/13/19] Allergies/Adverse Reactions: Allergies Allergy/AdvReac Type Severity Reaction Status Date / Time orphenadrine citrate Allergy Intermediate Verified 02/13/19 11:13 [From Norflex] hydrocodone bitartrate AdvReac Mild Verified 02/13/19 11:13 [From [place]] levofloxacin [From Levaquin] AdvReac Mild Nausea and Verified 02/13/19 11:13 Vomiting - Past Medical History Past Medical History: Yes Neurological History: No Pertinent History ENT History: No Pertinent History Cardiac History: Coronary Artery Disease Respiratory History: COPD Endocrine Medical History: Diabetes Type I Musculoskelatal History: Degenerative Disk Disease, Other GI Medical History: GERD History: Renal Disease Pyscho-Social History: Anxiety, Depression Reproductive Disorders: No Pertinent History Comment: HAS INSULIN PUMP. cardiac STENT PLACEMENT X 2, back problem, renal failure - Female History Are you now?: No - Past Surgical History Past Surgical History: Yes Neuro Surgical History: No Pertinent History Cardiac History: Cardiac Catheterization, Cardiac Stent Respiratory Surgery: No Pertinent History GI Surgical History: Cholecystectomy Genitourinary Surgical Hx: No Pertinent History Musculskeletal Surgical Hx: Other Female Surgical History: Tubal Ligation Other Surgical History: BUNONECTOMY. BACK SURGERY X2 - Social History Smoking Status: Current every day smoker How long have you smoked: 40 years Exposure to second hand smoke: Yes Alcohol: None Drug Use: none Significant Family History: heart disease, diabetes, hypertension - Physical Exam Vital Signs: Vital Signs - 24 hr Temp Pulse Resp BP Pulse Ox 02/14/19 08:00 99.8 F 105 H 19 108/58 98 02/14/19 07:30 100 H 16 02/14/19 06:00 107 H 21 111/61 96 02/14/19 04:00 98.7 F 102 H 18 100/54 97 02/14/19 02:00 99.0 F 106 H 18 113/61 97 02/14/19 00:00 109 H 10/16/19 23:59 26 H 02/13/19 23:58 99.1 F 109 H 26 H 107/56 97 02/13/19 22:00 97.5 F 111 H 23 107/56 98 02/13/19 20:00 97.5 F 122 H 24 113/52 100 02/13/19 19:30 123 H 27 H 100 02/13/19 19:00 125 H 28 H 124/58 99 02/13/19 17:17 118 H 25 H 97 02/13/19 17:00 99.0 F 119 H 17 100/50 97 02/13/19 15:33 99.1 F 116 H 25 H 97/50 100 02/13/19 12:54 114 H 24 99 02/13/19 11:49 100 H 20 94 L 02/13/19 11:43 100 H 20 02/13/19 11:13 99 02/13/19 11:01 97.4 F 104 H 20 112/68 99 Oxygen-Last 24 hours O2 Percentage 2 Liters = 28% General Appearance: no apparent distress, alert Neurologic Exam: alert, oriented x 3, cooperative, normal mood/affect, nml cerebellar function, nml station & gait, sensation nml, No motor deficits Eye Exam: PERRL/EOMI, eyes nml inspection Ears, Nose, Throat Exam: normal ENT inspection, TMs normal, pharynx normal, moist mucous membranes Neck Exam: normal inspection, non-tender, supple, full range of motion Respiratory Exam: crackles/rales, rhonchi, wheezing, No respiratory distress Cardiovascular Exam: regular rate/rhythm, normal heart sounds, normal peripheral pulses Gastrointestinal/Abdomen Exam: soft, normal bowel sounds, No tenderness, No mass Back Exam: normal inspection, normal range of motion, No CVA tenderness, No vertebral tenderness Extremity Exam: normal inspection, normal range of motion, pelvis stable Skin Exam: normal color, warm, dry, No rash Lymphatic Exam: No adenopathy Results - Labs Lab/Micro Results: Accuchecks Date 02/14/19 Time 07:15 Accucheck Value: 304 Accucheck Value: 288 Accucheck Value: 216 Accucheck Value: 342 Accucheck Value: 468 Accucheck Value: 764 Lab Results-Last 24 Hours 02/13/19 02/13/19 02/13/19 Range/Units 10:51 10:51 10:52 WBC 12.9 H (4.0-10.5) K/mm3 RBC 4.41 (4.1-5.4) M/mm3 Hgb 13.8 (12.0-16.0) gm/dl Hct 42.3 (35-47) % MCV 95.9 (78-100) fl MCH 31.3 (26-32) pg MCHC 32.6 (32-36) g/dl RDW 14.0 (11.5-14.0) % Plt Count 338 (150-450) K/mm3 MPV 9.3 (6-9.5) fl Gran % 76.1 H (36.0-66.0) % Eos # (Auto) 0.04 (0-0.5) Absolute Lymphs (auto) 2.25 (1.0-4.6) Absolute Monos (auto) 0.75 (0.0-1.3) Lymphocytes % 17.5 L (24.0-44.0) % Monocytes % 5.8 (0.0-12.0) % Eosinophils % 0.3 (0.00-5.0) % Basophils % 0.3 (0.0-0.4) % Absolute Granulocytes 9.80 H (1.4-6.9) Basophils # 0.04 (0-0.4) Puncture Site RIGHT RADIAL pCO2 32 L (35-45) mmHg pO2 68 L (75-100) mmHg Base Excess -7.9 L (-2.0-2.0) O2 Saturation 89.4 L (94-100) g/dF ABG pH 7.33 L (7.35-7.45) ABG HCO3 16.9 L* (22-28) ABG O2 Sat (Measured) 94.1 L (95-100) % Luis Test YES A-a Gradient 42 a/A Ratio 0.62 Hemoglobin 13.5 Carboxyhemoglobin 4.1 (0.0-6.9) % THgb Methemoglobin 0.9 L (1.4-1.5) % Potassium 4.2 (3.5-5.1) Temperature 37.0 C POC O2 Flow Rate 21 % Sodium (137-145) mmol/L Chloride (98-107) mmol/L Carbon Dioxide (22-30) mmol/L Anion Gap (5-15) MEQ/L BUN (7-17) mg/dL Creatinine (0.52-1.04) mg/dL Estimated GFR ML/MIN Glucose (74-106) mg/dL Hemoglobin A1c (4.5-6.0) % Lactic Acid 1.1 (0.4-2.0) Calcium (8.4-10.2) mg/dL Total Bilirubin (0.2-1.3) mg/dL AST (14-36) U/L ALT (0-35) U/L Alkaline Phosphatase (38-126) U/L Troponin I (0.000-0.034) ng/mL NT-Pro-B Natriuret Pep (0-900) pg/mL Serum Total Protein (6.3-8.2) g/dL Albumin (3.5-5.0) g/dL Beta-Hydroxybutyrate/Acetoacetate (0.02-0.27) mmol/L Urine Color YELLOW (YELLOW) Urine Appearance CLEAR (CLEAR) Urine pH 5.0 (5-6) Ur Specific [place] 1.023 (1.005-1.025) Urine Protein NEGATIVE (Negative) Urine Ketones MODERATE (NEGATIVE) Urine Blood SMALL (0-5) Tato/ul Urine Nitrite POSITIVE (NEGATIVE) Urine Bilirubin NEGATIVE (NEGATIVE) Urine Urobilinogen NEGATIVE (0-1) mg/dL Ur Leukocyte Esterase TRACE (NEGATIVE) Urine WBC (Auto) 6-10 (0-5) /HPF Urine RBC (Auto) NONE (0-2) /HPF U Hyaline Cast (Auto) 0-2 (0-2) /LPF U Epithel Cells (Auto) NONE (FEW) /HPF Urine Bacteria (Auto) NONE (NEGATIVE) /HPF Urine Mucus (Auto) SLIGHT (NEGATIVE) /HPF Urine Culture Reflexed YES (NO) Urine Glucose >=500 (NEGATIVE) mg/dL Influenza Type A Ag (NEGATIVE) Influenza Type B Ag (NEGATIVE) RSV (PCR) (Negative) 02/13/19 02/13/19 02/13/19 Range/Units 11:15 11:15 11:15 WBC (4.0-10.5) K/mm3 RBC (4.1-5.4) M/mm3 Hgb (12.0-16.0) gm/dl Hct (35-47) % MCV (78-100) fl MCH (26-32) pg MCHC (32-36) g/dl RDW (11.5-14.0) % Plt Count (150-450) K/mm3 MPV (6-9.5) fl Gran % (36.0-66.0) % Eos # (Auto) (0-0.5) Absolute Lymphs (auto) (1.0-4.6) Absolute Monos (auto) (0.0-1.3) Lymphocytes % (24.0-44.0) % Monocytes % (0.0-12.0) % Eosinophils % (0.00-5.0) % Basophils % (0.0-0.4) % Absolute Granulocytes (1.4-6.9) Basophils # (0-0.4) Puncture Site pCO2 (35-45) mmHg pO2 (75-100) mmHg Base Excess (-2.0-2.0) O2 Saturation (94-100) g/dF ABG pH (7.35-7.45) ABG HCO3 (22-28) ABG O2 Sat (Measured) (95-100) % Luis Test A-a Gradient a/A Ratio Hemoglobin Carboxyhemoglobin (0.0-6.9) % THgb Methemoglobin (1.4-1.5) % Potassium 4.5 (3.5-5.1) Temperature C POC O2 Flow Rate % Sodium 139 (137-145) mmol/L Chloride 98 (98-107) mmol/L Carbon Dioxide 19 L (22-30) mmol/L Anion Gap 26.4 H (5-15) MEQ/L BUN 28 H (7-17) mg/dL Creatinine 1.31 H (0.52-1.04) mg/dL Estimated GFR 44.5 ML/MIN Glucose 397 H (74-106) mg/dL Hemoglobin A1c (4.5-6.0) % Lactic Acid (0.4-2.0) Calcium 10.4 H (8.4-10.2) mg/dL Total Bilirubin 0.60 (0.2-1.3) mg/dL AST 22 (14-36) U/L ALT 21 (0-35) U/L Alkaline Phosphatase 148 H (38-126) U/L Troponin I 0.082 H* (0.000-0.034) ng/mL NT-Pro-B Natriuret Pep 90.5 (0-900) pg/mL Serum Total Protein 7.8 (6.3-8.2) g/dL Albumin 4.1 (3.5-5.0) g/dL Beta-Hydroxybutyrate/Acetoacetate (0.02-0.27) mmol/L Urine Color (YELLOW) Urine Appearance (CLEAR) Urine pH (5-6) Ur Specific [place] (1.005-1.025) Urine Protein (Negative) Urine Ketones (NEGATIVE) Urine Blood (0-5) Tato/ul Urine Nitrite (NEGATIVE) Urine Bilirubin (NEGATIVE) Urine Urobilinogen (0-1) mg/dL Ur Leukocyte Esterase (NEGATIVE) Urine WBC (Auto) (0-5) /HPF Urine RBC (Auto) (0-2) /HPF U Hyaline Cast (Auto) (0-2) /LPF U Epithel Cells (Auto) (FEW) /HPF Urine Bacteria (Auto) (NEGATIVE) /HPF Urine Mucus (Auto) (NEGATIVE) /HPF Urine Culture Reflexed (NO) Urine Glucose (NEGATIVE) mg/dL Influenza Type A Ag NEGATIVE (NEGATIVE) Influenza Type B Ag NEGATIVE (NEGATIVE) RSV (PCR) NEGATIVE (Negative) 02/13/19 02/13/19 02/13/19 Range/Units 11:15 14:01 17:28 WBC (4.0-10.5) K/mm3 RBC (4.1-5.4) M/mm3 Hgb (12.0-16.0) gm/dl Hct (35-47) % MCV (78-100) fl MCH (26-32) pg MCHC (32-36) g/dl RDW (11.5-14.0) % Plt Count (150-450) K/mm3 MPV (6-9.5) fl Gran % (36.0-66.0) % Eos # (Auto) (0-0.5) Absolute Lymphs (auto) (1.0-4.6) Absolute Monos (auto) (0.0-1.3) Lymphocytes % (24.0-44.0) % Monocytes % (0.0-12.0) % Eosinophils % (0.00-5.0) % Basophils % (0.0-0.4) % Absolute Granulocytes (1.4-6.9) Basophils # (0-0.4) Puncture Site pCO2 (35-45) mmHg pO2 (75-100) mmHg Base Excess (-2.0-2.0) O2 Saturation (94-100) g/dF ABG pH (7.35-7.45) ABG HCO3 (22-28) ABG O2 Sat (Measured) (95-100) % Luis Test A-a Gradient a/A Ratio Hemoglobin Carboxyhemoglobin (0.0-6.9) % THgb Methemoglobin (1.4-1.5) % Potassium (3.5-5.1) Temperature C POC O2 Flow Rate % Sodium (137-145) mmol/L Chloride (98-107) mmol/L Carbon Dioxide (22-30) mmol/L Anion Gap (5-15) MEQ/L BUN (7-17) mg/dL Creatinine (0.52-1.04) mg/dL Estimated GFR ML/MIN Glucose (74-106) mg/dL Hemoglobin A1c (4.5-6.0) % Lactic Acid (0.4-2.0) Calcium (8.4-10.2) mg/dL Total Bilirubin (0.2-1.3) mg/dL AST (14-36) U/L ALT (0-35) U/L Alkaline Phosphatase (38-126) U/L Troponin I 0.089 H* 0.052 H* (0.000-0.034) ng/mL NT-Pro-B Natriuret Pep (0-900) pg/mL Serum Total Protein (6.3-8.2) g/dL Albumin (3.5-5.0) g/dL Beta-Hydroxybutyrate/Acetoacetate 5.44 H (0.02-0.27) mmol/L Urine Color (YELLOW) Urine Appearance (CLEAR) Urine pH (5-6) Ur Specific [place] (1.005-1.025) Urine Protein (Negative) Urine Ketones (NEGATIVE) Urine Blood (0-5) Tato/ul Urine Nitrite (NEGATIVE) Urine Bilirubin (NEGATIVE) Urine Urobilinogen (0-1) mg/dL Ur Leukocyte Esterase (NEGATIVE) Urine WBC (Auto) (0-5) /HPF Urine RBC (Auto) (0-2) /HPF U Hyaline Cast (Auto) (0-2) /LPF U Epithel Cells (Auto) (FEW) /HPF Urine Bacteria (Auto) (NEGATIVE) /HPF Urine Mucus (Auto) (NEGATIVE) /HPF Urine Culture Reflexed (NO) Urine Glucose (NEGATIVE) mg/dL Influenza Type A Ag (NEGATIVE) Influenza Type B Ag (NEGATIVE) RSV (PCR) (Negative) 02/13/19 02/13/19 02/13/19 Range/Units 17:28 17:28 19:39 WBC (4.0-10.5) K/mm3 RBC (4.1-5.4) M/mm3 Hgb (12.0-16.0) gm/dl Hct (35-47) % MCV (78-100) fl MCH (26-32) pg MCHC (32-36) g/dl RDW (11.5-14.0) % Plt Count (150-450) K/mm3 MPV (6-9.5) fl Gran % (36.0-66.0) % Eos # (Auto) (0-0.5) Absolute Lymphs (auto) (1.0-4.6) Absolute Monos (auto) (0.0-1.3) Lymphocytes % (24.0-44.0) % Monocytes % (0.0-12.0) % Eosinophils % (0.00-5.0) % Basophils % (0.0-0.4) % Absolute Granulocytes (1.4-6.9) Basophils # (0-0.4) Puncture Site pCO2 (35-45) mmHg pO2 (75-100) mmHg Base Excess (-2.0-2.0) O2 Saturation (94-100) g/dF ABG pH (7.35-7.45) ABG HCO3 (22-28) ABG O2 Sat (Measured) (95-100) % Luis Test A-a Gradient a/A Ratio Hemoglobin Carboxyhemoglobin (0.0-6.9) % THgb Methemoglobin (1.4-1.5) % Potassium (3.5-5.1) Temperature C POC O2 Flow Rate % Sodium (137-145) mmol/L Chloride (98-107) mmol/L Carbon Dioxide (22-30) mmol/L Anion Gap (5-15) MEQ/L BUN (7-17) mg/dL Creatinine (0.52-1.04) mg/dL Estimated GFR ML/MIN Glucose 764 H* (74-106) mg/dL Hemoglobin A1c 11.31 H (4.5-6.0) % Lactic Acid (0.4-2.0) Calcium (8.4-10.2) mg/dL Total Bilirubin (0.2-1.3) mg/dL AST (14-36) U/L ALT (0-35) U/L Alkaline Phosphatase (38-126) U/L Troponin I 0.359 H* (0.000-0.034) ng/mL NT-Pro-B Natriuret Pep (0-900) pg/mL Serum Total Protein (6.3-8.2) g/dL Albumin (3.5-5.0) g/dL Beta-Hydroxybutyrate/Acetoacetate (0.02-0.27) mmol/L Urine Color (YELLOW) Urine Appearance (CLEAR) Urine pH (5-6) Ur Specific [place] (1.005-1.025) Urine Protein (Negative) Urine Ketones (NEGATIVE) Urine Blood (0-5) Tato/ul Urine Nitrite (NEGATIVE) Urine Bilirubin (NEGATIVE) Urine Urobilinogen (0-1) mg/dL Ur Leukocyte Esterase (NEGATIVE) Urine WBC (Auto) (0-5) /HPF Urine RBC (Auto) (0-2) /HPF U Hyaline Cast (Auto) (0-2) /LPF U Epithel Cells (Auto) (FEW) /HPF Urine Bacteria (Auto) (NEGATIVE) /HPF Urine Mucus (Auto) (NEGATIVE) /HPF Urine Culture Reflexed (NO) Urine Glucose (NEGATIVE) mg/dL Influenza Type A Ag (NEGATIVE) Influenza Type B Ag (NEGATIVE) RSV (PCR) (Negative) 02/13/19 02/13/19 02/14/19 Range/Units 19:39 23:38 04:20 WBC 15.4 H (4.0-10.5) K/mm3 RBC 3.51 L (4.1-5.4) M/mm3 Hgb 11.0 L D (12.0-16.0) gm/dl Hct 33.5 L (35-47) % MCV 95.4 (78-100) fl MCH 31.3 (26-32) pg MCHC 32.8 (32-36) g/dl RDW 13.9 (11.5-14.0) % Plt Count 315 (150-450) K/mm3 MPV 9.0 (6-9.5) fl Gran % (36.0-66.0) % Eos # (Auto) (0-0.5) Absolute Lymphs (auto) (1.0-4.6) Absolute Monos (auto) (0.0-1.3) Lymphocytes % (24.0-44.0) % Monocytes % (0.0-12.0) % Eosinophils % (0.00-5.0) % Basophils % (0.0-0.4) % Absolute Granulocytes (1.4-6.9) Basophils # (0-0.4) Puncture Site pCO2 (35-45) mmHg pO2 (75-100) mmHg Base Excess (-2.0-2.0) O2 Saturation (94-100) g/dF ABG pH (7.35-7.45) ABG HCO3 (22-28) ABG O2 Sat (Measured) (95-100) % Luis Test A-a Gradient a/A Ratio Hemoglobin Carboxyhemoglobin (0.0-6.9) % THgb Methemoglobin (1.4-1.5) % Potassium (3.5-5.1) Temperature C POC O2 Flow Rate % Sodium (137-145) mmol/L Chloride (98-107) mmol/L Carbon Dioxide (22-30) mmol/L Anion Gap (5-15) MEQ/L BUN (7-17) mg/dL Creatinine (0.52-1.04) mg/dL Estimated GFR ML/MIN Glucose 705 H* (74-106) mg/dL Hemoglobin A1c (4.5-6.0) % Lactic Acid (0.4-2.0) Calcium (8.4-10.2) mg/dL Total Bilirubin (0.2-1.3) mg/dL AST (14-36) U/L ALT (0-35) U/L Alkaline Phosphatase (38-126) U/L Troponin I 9.000 H* (0.000-0.034) ng/mL NT-Pro-B Natriuret Pep (0-900) pg/mL Serum Total Protein (6.3-8.2) g/dL Albumin (3.5-5.0) g/dL Beta-Hydroxybutyrate/Acetoacetate (0.02-0.27) mmol/L Urine Color (YELLOW) Urine Appearance (CLEAR) Urine pH (5-6) Ur Specific [place] (1.005-1.025) Urine Protein (Negative) Urine Ketones (NEGATIVE) Urine Blood (0-5) Tato/ul Urine Nitrite (NEGATIVE) Urine Bilirubin (NEGATIVE) Urine Urobilinogen (0-1) mg/dL Ur Leukocyte Esterase (NEGATIVE) Urine WBC (Auto) (0-5) /HPF Urine RBC (Auto) (0-2) /HPF U Hyaline Cast (Auto) (0-2) /LPF U Epithel Cells (Auto) (FEW) /HPF Urine Bacteria (Auto) (NEGATIVE) /HPF Urine Mucus (Auto) (NEGATIVE) /HPF Urine Culture Reflexed (NO) Urine Glucose (NEGATIVE) mg/dL Influenza Type A Ag (NEGATIVE) Influenza Type B Ag (NEGATIVE) RSV (PCR) (Negative) 02/14/19 02/14/19 Range/Units 04:20 04:20 WBC (4.0-10.5) K/mm3 RBC (4.1-5.4) M/mm3 Hgb (12.0-16.0) gm/dl Hct (35-47) % MCV (78-100) fl MCH (26-32) pg MCHC (32-36) g/dl RDW (11.5-14.0) % Plt Count (150-450) K/mm3 MPV (6-9.5) fl Gran % (36.0-66.0) % Eos # (Auto) (0-0.5) Absolute Lymphs (auto) (1.0-4.6) Absolute Monos (auto) (0.0-1.3) Lymphocytes % (24.0-44.0) % Monocytes % (0.0-12.0) % Eosinophils % (0.00-5.0) % Basophils % (0.0-0.4) % Absolute Granulocytes (1.4-6.9) Basophils # (0-0.4) Puncture Site pCO2 (35-45) mmHg pO2 (75-100) mmHg Base Excess (-2.0-2.0) O2 Saturation (94-100) g/dF ABG pH (7.35-7.45) ABG HCO3 (22-28) ABG O2 Sat (Measured) (95-100) % Luis Test A-a Gradient a/A Ratio Hemoglobin Carboxyhemoglobin (0.0-6.9) % THgb Methemoglobin (1.4-1.5) % Potassium 4.4 (3.5-5.1) Temperature C POC O2 Flow Rate % Sodium 137 (137-145) mmol/L Chloride 107 (98-107) mmol/L Carbon Dioxide 19 L (22-30) mmol/L Anion Gap 15.2 H (5-15) MEQ/L BUN 27 H (7-17) mg/dL Creatinine 0.90 (0.52-1.04) mg/dL Estimated GFR > 60.0 ML/MIN Glucose 167 H (74-106) mg/dL Hemoglobin A1c (4.5-6.0) % Lactic Acid (0.4-2.0) Calcium 8.7 D (8.4-10.2) mg/dL Total Bilirubin 0.30 (0.2-1.3) mg/dL AST 60 H (14-36) U/L ALT 20 (0-35) U/L Alkaline Phosphatase 103 (38-126) U/L Troponin I 17.000 H* (0.000-0.034) ng/mL NT-Pro-B Natriuret Pep (0-900) pg/mL Serum Total Protein 5.5 L (6.3-8.2) g/dL Albumin 2.7 L (3.5-5.0) g/dL Beta-Hydroxybutyrate/Acetoacetate (0.02-0.27) mmol/L Urine Color (YELLOW) Urine Appearance (CLEAR) Urine pH (5-6) Ur Specific [place] (1.005-1.025) Urine Protein (Negative) Urine Ketones (NEGATIVE) Urine Blood (0-5) Tato/ul Urine Nitrite (NEGATIVE) Urine Bilirubin (NEGATIVE) Urine Urobilinogen (0-1) mg/dL Ur Leukocyte Esterase (NEGATIVE) Urine WBC (Auto) (0-5) /HPF Urine RBC (Auto) (0-2) /HPF U Hyaline Cast (Auto) (0-2) /LPF U Epithel Cells (Auto) (FEW) /HPF Urine Bacteria (Auto) (NEGATIVE) /HPF Urine Mucus (Auto) (NEGATIVE) /HPF Urine Culture Reflexed (NO) Urine Glucose (NEGATIVE) mg/dL Influenza Type A Ag (NEGATIVE) Influenza Type B Ag (NEGATIVE) RSV (PCR) (Negative) Microbiology 02/13/19 10:52 Urine Culture - Preliminary Clean Catch Midstream NO GROWTH TO DATE Accuchecks Date 02/14/19 Time 07:15 Accucheck Value: 304 Accucheck Value: 288 Accucheck Value: 216 Accucheck Value: 342 Accucheck Value: 468 Accucheck Value: 764 - Radiology Impressions Radiology Exams & Impressions: Radiology Procedures Category Date Time Status CHEST 2 VIEWS (PA AND LAT) Stat Exams 02/13/19 10:39 Completed CHEST WITH CONTRAST [CT] Stat Exams 02/13/19 13:19 Completed - Other Procedures and Tests Respiratory Therapy 02/13/19 11:42 Respiratory Therapy Assessment DAILY 02/13/19 11:43 Peak Expiratory Flow Rate ONCE 02/13/19 19:29 Oxygen Nasal Cannula 2 lpm Assessment/Plan (1) Non-ST elevation (NSTEMI) myocardial infarction Current Visit: Yes Status: Acute Assessment & Plan: Chief Complaint Diagnosis Sepsis; increased troponin; hyperglycemia; exac COPD Allergies Allergy/AdvReac Type Severity Reaction Status Date / Time orphenadrine citrate Allergy Intermediate Verified 02/13/19 11:13 [From Norflex] hydrocodone bitartrate AdvReac Mild Verified 02/13/19 11:13 [From [place]] levofloxacin [From Levaquin] AdvReac Mild Nausea and Verified 02/13/19 11:13 Vomiting Vital Signs (Last 24 hours) Temp Pulse Resp BP Pulse Ox 02/14/19 08:00 99.8 F 105 H 19 108/58 98 02/14/19 07:30 100 H 16 02/14/19 06:00 107 H 21 111/61 96 02/14/19 04:00 98.7 F 102 H 18 100/54 97 02/14/19 02:00 99.0 F 106 H 18 113/61 97 02/14/19 00:00 109 H 02/13/19 23:59 26 H 02/13/19 23:58 99.1 F 109 H 26 H 107/56 97 02/13/19 22:00 97.5 F 111 H 23 107/56 98 02/13/19 20:00 97.5 F 122 H 24 113/52 100 02/13/19 19:30 123 H 27 H 100 02/13/19 19:00 125 H 28 H 124/58 99 02/13/19 17:17 118 H 25 H 97 02/13/19 17:00 99.0 F 119 H 17 100/50 97 02/13/19 15:33 99.1 F 116 H 25 H 97/50 100 02/13/19 12:54 114 H 24 99 02/13/19 11:49 100 H 20 94 L 02/13/19 11:43 100 H 20 02/13/19 11:13 99 02/13/19 11:01 97.4 F 104 H 20 112/68 99 Home Medications Medication Instructions Recorded Confirmed Last Taken Type Cyclobenzaprine HCl 10 mg 10 mg PO QID 02/13/19 02/13/19 02/13/19 History [Cyclobenzaprine 10 MG] Current Medications Generic Name Dose Route Start Last Admin Trade Name Freq PRN Reason Stop Dose Admin Acetaminophen 650 mg 02/13/19 16:22 Tylenol 325 Mg PO 03/15/19 16:21 Q6H PRN PRN PAIN AND/OR FEVER Albuterol/Ipratropium 3 ml 02/13/19 19:00 02/13/19 19:25 Duoneb 0.5-3 Mg/3 Ml Neb IH 03/15/19 18:59 3 ml QIDRT NISSA Administration Alprazolam 1 mg 02/13/19 22:00 02/13/19 21:24 Xanax 1 Mg PO 03/15/19 21:59 1 mg HS NISSA Administration Cyclobenzaprine HCl 10 mg 02/13/19 22:00 02/13/19 21:24 Cyclobenzaprine 10 Mg PO 03/15/19 21:59 10 mg QID NISSA Administration Sodium Chloride 1,000 mls @ 150 mls/hr 02/13/19 16:30 02/13/19 23:54 Sodium Chloride 0.9% 1000 Ml IV 03/15/19 16:29 150 mls/hr .Q6H40M NISSA Administration Cefepime HCl 1 g/ Sodium 100 mls @ 200 mls/hr 02/13/19 22:00 02/13/19 21:24 Chloride IV 03/15/19 21:59 200 mls/hr Q12HT NISSA Administration Insulin Human Regular 100 101 mls @ 2.02 mls/hr 02/13/19 19:40 02/13/19 20:15 units/ Sodium Chloride IV 03/15/19 19:39 2 units/hr .Q24H PRN 2.02 mls/hr DKA/HYPERGYCEMIA Administration Protocol 2 UNITS/HR Insulin Aspart 0 unit 02/13/19 16:21 Novolog Insulin SQ 03/15/19 16:20 UD PRN HYPERGLYCEMIA Metoclopramide HCl 10 mg 02/13/19 22:00 02/13/19 21:24 Reglan 10 Mg PO 03/15/19 21:59 10 mg TID NISSA Administration Pantoprazole Sodium 40 mg 02/14/19 10:00 Protonix 40mg Tablet PO 03/16/19 09:59 DAILY [facility] Patient Own Medication 0 each 02/13/19 17:17 Patient Own Medication IJ 03/15/19 17:16 PRN PRN Promethazine HCl 25 mg 02/13/19 17:14 02/14/19 07:28 Phenergan 25 Mg PO 03/15/19 17:13 25 mg Q6HPRN PRN Administration NAUSEA Discontinued Medications Generic Name Dose Route Start Last Admin Trade Name Freq PRN Reason Stop Dose Admin Acetaminophen 650 mg 02/13/19 14:21 02/13/19 16:28 Tylenol 325 Mg PO 02/13/19 14:22 Not Given STAT ONE Albuterol Sulfate gm 02/13/19 17:14 Ventolin Hfa Mdi IH 03/15/19 17:13 Q4-6HPRN PRN cough or wheeze Albuterol/Ipratropium 3 ml 02/13/19 10:51 02/13/19 11:45 Duoneb 0.5-3 Mg/3 Ml Neb IH 02/13/19 10:52 3 ml STAT ONE Administration Albuterol/Ipratropium Confirm 02/13/19 11:20 Duoneb 0.5-3 Mg/3 Ml Neb Administered 02/13/19 11:21 Dose 3 ml IH .STK-MED ONE Albuterol/Ipratropium 3 ml 02/13/19 11:34 02/13/19 11:30 Duoneb 0.5-3 Mg/3 Ml Neb IH 02/13/19 11:35 3 ml STAT ONE Administration Albuterol/Ipratropium 3 ml 02/13/19 11:35 02/13/19 12:54 Duoneb 0.5-3 Mg/3 Ml Neb IH 02/13/19 11:36 Not Given STAT ONE Albuterol/Ipratropium Confirm 02/13/19 11:38 Duoneb 0.5-3 Mg/3 Ml Neb Administered 02/13/19 11:39 Dose 6 ml IH .STK-MED ONE Aspirin 324 mg 02/13/19 12:07 02/13/19 12:13 Baby Aspirin 81 Mg Chew PO 02/13/19 12:08 324 mg STAT ONE Administration Aspirin Confirm 02/13/19 12:11 Baby Aspirin 81 Mg Chew Administered 02/13/19 12:12 Dose 324 mg .ROUTE .STK-MED ONE Epinephrine HCl Confirm 02/13/19 14:20 Epinephrine Abboject 1 Mg Administered 02/13/19 14:21 Dose 1 mg .ROUTE .STK-MED ONE Sodium Chloride 1,000 mls @ 999 mls/hr 02/13/19 10:51 02/13/19 13:14 Sodium Chloride 0.9% 1000 Ml IV 02/13/19 11:51 Infused .Q1H1M STA Infusion Sodium Chloride Confirm 02/13/19 11:31 Sodium Chloride 0.9% 1000 Ml Administered 02/13/19 11:32 Dose 1,000 mls @ ud .ROUTE .STK-MED ONE Sodium Chloride 1,000 mls @ 999 mls/hr 02/13/19 12:35 02/13/19 14:29 Sodium Chloride 0.9% 1000 Ml IV 02/13/19 13:35 Infused .Q1H1M STA Infusion Sodium Chloride Confirm 02/13/19 13:03 Sodium Chloride 0.9% 1000 Ml Administered 02/13/19 13:04 Dose 1,000 mls @ ud .ROUTE .STK-MED ONE Cefepime HCl 1 g/ Sodium 100 mls @ 200 mls/hr 02/13/19 14:45 02/13/19 16:27 Chloride IV 02/13/19 15:14 Not Given NOW ONE Sodium Chloride Confirm 02/13/19 19:53 Sodium Chloride 0.9% 100 Ml Ivpb Administered 02/13/19 19:54 Dose 100 mls @ ud IV .STK-MED ONE Insulin Aspart 20 unit 02/13/19 17:59 02/13/19 18:09 Novolog Insulin SQ 02/13/19 18:00 20 unit STAT ONE Administration Insulin Human Regular Confirm 02/13/19 20:08 Novolin R Administered 02/13/19 20:09 Dose 1 unit .ROUTE .STK-MED ONE Non-Formulary Medication 1 each 02/13/19 16:31 02/13/19 16:43 Pharmacy Dosing Request MC 02/13/19 16:32 1 each STAT ONE Administration Ondansetron HCl 4 mg 02/13/19 12:58 02/13/19 14:29 Zofran 4 Mg/2 Ml Vial IV 02/13/19 12:59 Not Given STAT ONE Promethazine HCl 25 mg 02/13/19 13:37 02/13/19 16:28 Phenergan 25 Mg Inj IV 02/13/19 13:38 Not Given STAT ONE Promethazine HCl 25 mg 02/13/19 14:21 02/13/19 14:31 Phenergan 25 Mg Inj IM 02/13/19 14:22 25 mg Q4H PRN STA Administration Promethazine HCl Confirm 02/13/19 14:28 Phenergan 25 Mg Inj Administered 02/13/19 14:29 Dose 25 mg .ROUTE .STK-MED ONE Intake & Output (Last 24 hours) 02/11/19 02/12/19 02/13/19 02/14/19 11:59 11:59 11:59 11:59 Intake Total 3621 Output Total 2250 Balance 1371 Weight 59.421 kg 61.9 kg Microbiology Results (Last 24 hours) 02/13/19 10:52 Clean Catch Midstream Urine Culture - Preliminary NO GROWTH TO DATE 02/13/19 11:15 Blood Blood Culture Gram Stain - Pending 02/13/19 11:15 Blood Blood Culture - Pending 02/13/19 11:10 Blood Blood Culture Gram Stain - Pending 02/13/19 11:10 Blood Blood Culture - Pending Laboratory Results (Last 24 hours) 02/14/19 02/14/19 02/14/19 04:20 04:20 04:20 WBC 15.4 H RBC 3.51 L Hgb 11.0 L D Hct 33.5 L MCV 95.4 MCH 31.3 MCHC 32.8 RDW 13.9 Plt Count 315 MPV 9.0 Gran % Eos # (Auto) Absolute Lymphs (auto) Absolute Monos (auto) Lymphocytes % Monocytes % Eosinophils % Basophils % Absolute Granulocytes Basophils # Puncture Site pCO2 pO2 Base Excess O2 Saturation ABG pH ABG HCO3 ABG O2 Sat (Measured) Luis Test A-a Gradient a/A Ratio Hemoglobin Carboxyhemoglobin Methemoglobin Potassium 4.4 Temperature POC O2 Flow Rate Sodium 137 Chloride 107 Carbon Dioxide 19 L Anion Gap 15.2 H BUN 27 H Creatinine 0.90 Estimated GFR > 60.0 Glucose 167 H Hemoglobin A1c Lactic Acid Calcium 8.7 D Total Bilirubin 0.30 AST 60 H ALT 20 Alkaline Phosphatase 103 Troponin I 17.000 H* NT-Pro-B Natriuret Pep Serum Total Protein 5.5 L Albumin 2.7 L Beta-Hydroxybutyrate/Acetoacetate Urine Color Urine Appearance Urine pH Ur Specific [place] Urine Protein Urine Ketones Urine Blood Urine Nitrite Urine Bilirubin Urine Urobilinogen Ur Leukocyte Esterase Urine WBC (Auto) Urine RBC (Auto) U Hyaline Cast (Auto) U Epithel Cells (Auto) Urine Bacteria (Auto) Urine Mucus (Auto) Urine Culture Reflexed Urine Glucose Influenza Type A Ag Influenza Type B Ag RSV (PCR) 02/13/19 02/13/19 02/13/19 23:38 19:39 19:39 WBC RBC Hgb Hct MCV MCH MCHC RDW Plt Count MPV Gran % Eos # (Auto) Absolute Lymphs (auto) Absolute Monos (auto) Lymphocytes % Monocytes % Eosinophils % Basophils % Absolute Granulocytes Basophils # Puncture Site pCO2 pO2 Base Excess O2 Saturation ABG pH ABG HCO3 ABG O2 Sat (Measured) Luis Test A-a Gradient a/A Ratio Hemoglobin Carboxyhemoglobin Methemoglobin Potassium Temperature POC O2 Flow Rate Sodium Chloride Carbon Dioxide Anion Gap BUN Creatinine Estimated GFR Glucose 705 H* Hemoglobin A1c Lactic Acid Calcium Total Bilirubin AST ALT Alkaline Phosphatase Troponin I 9.000 H* 0.359 H* NT-Pro-B Natriuret Pep Serum Total Protein Albumin Beta-Hydroxybutyrate/Acetoacetate Urine Color Urine Appearance Urine pH Ur Specific [place] Urine Protein Urine Ketones Urine Blood Urine Nitrite Urine Bilirubin Urine Urobilinogen Ur Leukocyte Esterase Urine WBC (Auto) Urine RBC (Auto) U Hyaline Cast (Auto) U Epithel Cells (Auto) Urine Bacteria (Auto) Urine Mucus (Auto) Urine Culture Reflexed Urine Glucose Influenza Type A Ag Influenza Type B Ag RSV (PCR) 02/13/19 02/13/19 02/13/19 17:28 17:28 17:28 WBC RBC Hgb Hct MCV MCH MCHC RDW Plt Count MPV Gran % Eos # (Auto) Absolute Lymphs (auto) Absolute Monos (auto) Lymphocytes % Monocytes % Eosinophils % Basophils % Absolute Granulocytes Basophils # Puncture Site pCO2 pO2 Base Excess O2 Saturation ABG pH ABG HCO3 ABG O2 Sat (Measured) Luis Test A-a Gradient a/A Ratio Hemoglobin Carboxyhemoglobin Methemoglobin Potassium Temperature POC O2 Flow Rate Sodium Chloride Carbon Dioxide Anion Gap BUN Creatinine Estimated GFR Glucose 764 H* Hemoglobin A1c 11.31 H Lactic Acid Calcium Total Bilirubin AST ALT Alkaline Phosphatase Troponin I 0.052 H* NT-Pro-B Natriuret Pep Serum Total Protein Albumin Beta-Hydroxybutyrate/Acetoacetate Urine Color Urine Appearance Urine pH Ur Specific [place] Urine Protein Urine Ketones Urine Blood Urine Nitrite Urine Bilirubin Urine Urobilinogen Ur Leukocyte Esterase Urine WBC (Auto) Urine RBC (Auto) U Hyaline Cast (Auto) U Epithel Cells (Auto) Urine Bacteria (Auto) Urine Mucus (Auto) Urine Culture Reflexed Urine Glucose Influenza Type A Ag Influenza Type B Ag RSV (PCR) 02/13/19 02/13/19 02/13/19 14:01 11:15 11:15 WBC RBC Hgb Hct MCV MCH MCHC RDW Plt Count MPV Gran % Eos # (Auto) Absolute Lymphs (auto) Absolute Monos (auto) Lymphocytes % Monocytes % Eosinophils % Basophils % Absolute Granulocytes Basophils # Puncture Site pCO2 pO2 Base Excess O2 Saturation ABG pH ABG HCO3 ABG O2 Sat (Measured) Luis Test A-a Gradient a/A Ratio Hemoglobin Carboxyhemoglobin Methemoglobin Potassium Temperature POC O2 Flow Rate Sodium Chloride Carbon Dioxide Anion Gap BUN Creatinine Estimated GFR Glucose Hemoglobin A1c Lactic Acid Calcium Total Bilirubin AST ALT Alkaline Phosphatase Troponin I 0.089 H* NT-Pro-B Natriuret Pep Serum Total Protein Albumin Beta-Hydroxybutyrate/Acetoacetate 5.44 H Urine Color Urine Appearance Urine pH Ur Specific [place] Urine Protein Urine Ketones Urine Blood Urine Nitrite Urine Bilirubin Urine Urobilinogen Ur Leukocyte Esterase Urine WBC (Auto) Urine RBC (Auto) U Hyaline Cast (Auto) U Epithel Cells (Auto) Urine Bacteria (Auto) Urine Mucus (Auto) Urine Culture Reflexed Urine Glucose Influenza Type A Ag NEGATIVE Influenza Type B Ag NEGATIVE RSV (PCR) NEGATIVE 02/13/19 02/13/19 02/13/19 11:15 11:15 10:52 WBC RBC Hgb Hct MCV MCH MCHC RDW Plt Count MPV Gran % Eos # (Auto) Absolute Lymphs (auto) Absolute Monos (auto) Lymphocytes % Monocytes % Eosinophils % Basophils % Absolute Granulocytes Basophils # Puncture Site pCO2 pO2 Base Excess O2 Saturation ABG pH ABG HCO3 ABG O2 Sat (Measured) Luis Test A-a Gradient a/A Ratio Hemoglobin Carboxyhemoglobin Methemoglobin Potassium 4.5 Temperature POC O2 Flow Rate Sodium 139 Chloride 98 Carbon Dioxide 19 L Anion Gap 26.4 H BUN 28 H Creatinine 1.31 H Estimated GFR 44.5 Glucose 397 H Hemoglobin A1c Lactic Acid Calcium 10.4 H Total Bilirubin 0.60 AST 22 ALT 21 Alkaline Phosphatase 148 H Troponin I 0.082 H* NT-Pro-B Natriuret Pep 90.5 Serum Total Protein 7.8 Albumin 4.1 Beta-Hydroxybutyrate/Acetoacetate Urine Color YELLOW Urine Appearance CLEAR Urine pH 5.0 Ur Specific [place] 1.023 Urine Protein NEGATIVE Urine Ketones MODERATE Urine Blood SMALL Urine Nitrite POSITIVE Urine Bilirubin NEGATIVE Urine Urobilinogen NEGATIVE Ur Leukocyte Esterase TRACE Urine WBC (Auto) 6-10 Urine RBC (Auto) NONE U Hyaline Cast (Auto) 0-2 U Epithel Cells (Auto) NONE Urine Bacteria (Auto) NONE Urine Mucus (Auto) SLIGHT Urine Culture Reflexed YES Urine Glucose >=500 Influenza Type A Ag Influenza Type B Ag RSV (PCR) 02/13/19 02/13/19 10:51 10:51 WBC 12.9 H RBC 4.41 Hgb 13.8 Hct 42.3 MCV 95.9 MCH 31.3 MCHC 32.6 RDW 14.0 Plt Count 338 MPV 9.3 Gran % 76.1 H Eos # (Auto) 0.04 Absolute Lymphs (auto) 2.25 Absolute Monos (auto) 0.75 Lymphocytes % 17.5 L Monocytes % 5.8 Eosinophils % 0.3 Basophils % 0.3 Absolute Granulocytes 9.80 H Basophils # 0.04 Puncture Site RIGHT RADIAL pCO2 32 L pO2 68 L Base Excess -7.9 L O2 Saturation 89.4 L ABG pH 7.33 L ABG HCO3 16.9 L* ABG O2 Sat (Measured) 94.1 L Luis Test YES A-a Gradient 42 a/A Ratio 0.62 Hemoglobin 13.5 Carboxyhemoglobin 4.1 Methemoglobin 0.9 L Potassium 4.2 Temperature 37.0 POC O2 Flow Rate 21 Sodium Chloride Carbon Dioxide Anion Gap BUN Creatinine Estimated GFR Glucose Hemoglobin A1c Lactic Acid 1.1 Calcium Total Bilirubin AST ALT Alkaline Phosphatase Troponin I NT-Pro-B Natriuret Pep Serum Total Protein Albumin Beta-Hydroxybutyrate/Acetoacetate Urine Color Urine Appearance Urine pH Ur Specific [place] Urine Protein Urine Ketones Urine Blood Urine Nitrite Urine Bilirubin Urine Urobilinogen Ur Leukocyte Esterase Urine WBC (Auto) Urine RBC (Auto) U Hyaline Cast (Auto) U Epithel Cells (Auto) Urine Bacteria (Auto) Urine Mucus (Auto) Urine Culture Reflexed Urine Glucose Influenza Type A Ag Influenza Type B Ag RSV (PCR) Orders (Last 24 hours) Category Date Time Status Bedrest ROUTINE Activity 02/13/19 13:41 Active ACCUCHECK [Accucheck] Q1H Care 02/13/19 19:42 Active Admit as Inpatient ROUTINE Care 02/13/19 13:38 Active Call Admit Doctor for Orders ON ADMISSION Care 02/13/19 13:40 Active Project Control Manager STAT Care 02/13/19 10:52 Active Code Status Order ROUTINE Care 02/13/19 13:38 Active EKG-ER Only STAT Care 02/13/19 10:51 Active IV Insertion STAT Care 02/13/19 10:51 Active Pulse Oximetry (ED) STAT Care 02/13/19 10:51 Active Vital Signs Q2H Care 02/13/19 13:40 Active Infection Control Consult Cons 02/13/19 16:02 Active 1800 Calorie ADA Diet 02/13/19 Dinner Active Nutritional Admission Screen Diet 02/13/19 16:02 Active CHEST 2 VIEWS (PA AND LAT) Stat Exams 02/13/19 10:39 Completed CHEST WITH CONTRAST [CT] Stat Exams 02/13/19 13:19 Completed ARTERIAL BLOOD GASES Stat Lab 02/13/19 10:51 Completed BLOOD CULTURE Stat Lab 02/13/19 11:15 Received Beta-Hydroxybutyrate, Serum Stat Lab 02/13/19 11:15 Completed CBC AM.LAB Lab 02/14/19 04:20 Completed CBC W DIFF Stat Lab 02/13/19 10:51 Completed CMP AM.LAB Lab 02/14/19 04:20 Completed CMP Stat Lab 02/13/19 11:15 Completed CRP, High Sensitivity [C-Reactive Protein High Sens.] Lab 02/13/19 11:15 Received Stat CULTURE,URINE Stat Lab 02/13/19 10:52 Results Glucose Stat Lab 02/13/19 17:28 Completed Glucose Stat Lab 02/13/19 19:39 Completed HEMOGLOBIN A1C Urgent Lab 02/13/19 17:28 Completed Lactic Acid Stat Lab 02/13/19 10:51 Completed NT PRO BNP Stat Lab 02/13/19 11:15 Completed Respiratory Panel Stat Lab 02/13/19 11:15 Completed TROPONIN Q3H Lab 02/13/19 11:15 Completed TROPONIN Q3H Lab 02/13/19 14:01 Completed TROPONIN Q3H Lab 02/13/19 17:28 Completed TROPONIN Q3H Lab 02/13/19 19:39 Completed TROPONIN Q3H Lab 02/13/19 23:38 Completed TROPONIN Urgent Lab 02/14/19 04:20 Completed UA W/RFX UR CULTURE Stat Lab 02/13/19 10:52 Completed Acetaminophen 325 mg [Tylenol 325 mg] Med 02/13/19 16:22 Active 650 mg PO Q6H PRN PRN Acetaminophen 325 mg [Tylenol 325 mg] Med 02/13/19 14:21 Discontinued 650 mg PO STAT ONE Albuterol 8 gm Mdi Hfa [Ventolin Hfa MDI] Med 02/13/19 17:14 Discontinued DOSE gm IH Q4-6HPRN PRN Albuterol/Ipratropium 3ml Neb* [DUONEB 0.5-3 MG/3 ml Med 02/13/19 11:20 Discontinued Neb] 3 ml IH .STK-MED ONE Albuterol/Ipratropium 3ml Neb* [DUONEB 0.5-3 MG/3 ml Med 02/13/19 19:00 Active Neb] 3 ml IH QIDRT Albuterol/Ipratropium 3ml Neb* [DUONEB 0.5-3 MG/3 ml Med 02/13/19 10:51 Discontinued Neb] 3 ml IH STAT ONE Albuterol/Ipratropium 3ml Neb* [DUONEB 0.5-3 MG/3 ml Med 02/13/19 11:34 Discontinued Neb] 3 ml IH STAT ONE Albuterol/Ipratropium 3ml Neb* [DUONEB 0.5-3 MG/3 ml Med 02/13/19 11:35 Discontinued Neb] 3 ml IH STAT ONE Albuterol/Ipratropium 3ml Neb* [DUONEB 0.5-3 MG/3 ml Med 02/13/19 11:38 Discontinued Neb] 6 ml IH .STK-MED ONE Alprazolam 1 mg [Xanax 1 mg] Med 02/13/19 22:00 Active 1 mg PO HS Aspirin 81 gm Chew [Baby Aspirin 81 mg Chew] Med 02/13/19 12:11 Discontinued 324 mg .ROUTE .STK-MED ONE Aspirin 81 gm Chew [Baby Aspirin 81 mg Chew] Med 02/13/19 12:07 Discontinued 324 mg PO STAT ONE Cefepime HCl 1 gm [Maxipime 1 gm] 1 g Med 02/13/19 14:45 Discontinued NaCl 0.9% 100 ml Mini-Bag Plus [Sodium Chloride 100ML MINI-BAG PLUS] 100 ml IV NOW Cefepime HCl 1 gm [Maxipime 1 gm] 1 g Med 02/13/19 22:00 Active NaCl 0.9% 100 ml Mini-Bag Plus [Sodium Chloride 100ML MINI-BAG PLUS] 100 ml IV Q12HT Cyclobenzaprine HCl 10 mg [Cyclobenzaprine 10 MG] Med 02/13/19 22:00 Active 10 mg PO QID Epinephrine 1 mg [Epinephrine Abboject 1 mg] Med 02/13/19 14:20 Discontinued 1 mg .ROUTE .STK-MED ONE Insulin Aspart [NovoLOG Insulin] Med 02/13/19 17:59 Discontinued 20 unit SQ STAT ONE Insulin Aspart [NovoLOG Insulin] Med 02/13/19 16:21 Active See Dose Instructions SQ UD PRN Insulin Regular, Human [NovoLIN R] Med 02/13/19 20:08 Discontinued 1 unit .ROUTE .STK-MED ONE Metoclopramide HCl 10 mg [Reglan 10 MG] Med 02/13/19 22:00 Active 10 mg PO TID NaCl 0.9% 1000 ml [Sodium Chloride 0.9% 1000 ML] 1,000 Med 02/13/19 11:31 Discontinued ml .ROUTE UD NaCl 0.9% 1000 ml [Sodium Chloride 0.9% 1000 ML] 1,000 Med 02/13/19 13:03 Discontinued ml .ROUTE UD NaCl 0.9% 1000 ml [Sodium Chloride 0.9% 1000 ML] 1,000 Med 02/13/19 16:30 Active ml IV 150 mls/hr NaCl 0.9% 1000 ml [Sodium Chloride 0.9% 1000 ML] 1,000 Med 02/13/19 10:51 Discontinued ml IV 999 mls/hr NaCl 0.9% 1000 ml [Sodium Chloride 0.9% 1000 ML] 1,000 Med 02/13/19 12:35 Discontinued ml IV 999 mls/hr NaCl 0.9% 100Ml [Sodium Chloride 0.9% 100 ML IVPB] 100 Med 02/13/19 19:40 Active ml Insulin Reg Human Rec [Novolin R Insulin (For Drips)* *] 100 units IV 2 units/hr NaCl 0.9% 100Ml [Sodium Chloride 0.9% 100 ML IVPB] 100 Med 02/13/19 19:53 Discontinued ml IV UD Ondansetron HCl 4 mg/2 ml [Zofran 4 MG/2 ML VIAL] Med 02/13/19 12:58 Discontinued 4 mg IV STAT ONE PANTOPRAZOLE 40 mg Tablet [Protonix 40MG Tablet] Med 02/14/19 10:00 Active 40 mg PO DAILY Patient Own Med [Patient Own Medication] Med 02/13/19 17:17 Active 0 each IJ PRN PRN Pharmacy Dosing Request Med 02/13/19 16:31 Discontinued 1 each MC STAT ONE Promethazine HCl 25 mg Amp [Phenergan 25 MG INJ] Med 02/13/19 14:28 Discontinued 25 mg .ROUTE .STK-MED ONE Promethazine HCl 25 mg Amp [Phenergan 25 MG INJ] Med 02/13/19 14:21 Discontinued 25 mg IM Q4H PRN STA Promethazine HCl 25 mg Amp [Phenergan 25 MG INJ] Med 02/13/19 13:37 Discontinued 25 mg IV STAT ONE Promethazine HCl 25 mg [Phenergan 25 mg] Med 02/13/19 17:14 Active 25 mg PO Q6HPRN PRN EKG ROUTINE RT 02/14/19 05:00 Completed Oxygen Nasal Cannula 2 lpm RT 02/13/19 19:29 Active Peak Expiratory Flow Rate ONCE RT 02/13/19 11:43 Active Pulse Oximetry .continuos RT 02/13/19 19:30 Active Respiratory Therapy Assessment DAILY RT 02/13/19 11:42 Active Smoking Cessation Education ONCE RT 02/13/19 16:02 Completed Patient Care Notes (Last 24 hours) 02/14/19 07:36 Nursing Note by Adwoa Crawford pt c/o nausea. phenergan given as ordered. pt denies sob, chest pain or diaphoresis. Initialized on 02/14/19 07:36 - END OF NOTE 02/14/19 06:12 Nursing Note by Monica Gregory Called [facility] to report Troponin of 17.000. states " when day shift settles down this morning the patient will be transferred to [facility]". EKG done no changes noted. Pt denies chest pain, SOB, N/V. Pt resting comfortably. No distress noted.Will continue to monitor pt status. Initialized on 02/14/19 06:12 - END OF NOTE 02/14/19 04:34 Nursing Note by Monica Gregory 0400 Accu ck 161. Insulin drip off at this time. Will continue to monitor. Initialized on 02/14/19 04:34 - END OF NOTE 02/14/19 00:27 Nursing Note by Monica Gregory Dr called to report troponin of 9.0. No new orders received. Pt denies chest pain. VSS- 99.1, 109, 26, 107/86, 97% on RA. Denies SOB at this time. Denies N/v. Pt sleeping unless disturbed. Will continue to monitor. Explained S/ S to report to nurse. Pt voiced understanding. Next labs to be drawn this am. Initialized on 02/14/19 00:27 - END OF NOTE 02/13/19 20:25 (created 02/13/19 21:38) Nursing Note by Monica Gregory Called Dr Arias to report lab values of troponin of ).359 and glucose of 705. Orders received to repeat troponin in am. And continue insulin drip at 2 units/ hr. Initialized on 02/13/19 21:38 - END OF NOTE 02/13/19 14:40 Nursing Note by Larissa Walls 1315 Dr. Luo placed order for Maxipime. 1430 This RN notified Pharmacy of location of medication. radiocommunications technician advised they would deliver medication. 1435 Pharmacy contacted ER to confirm method of delivery. Initialized on 02/13/19 14:40 - END OF NOTE WILL TRANSFER PATIENT TO [facility] UNDER HOSPITALIST SERVICE FOR FURTHER MANAGEMENT Code(s): I21.4 - NON-ST ELEVATION (NSTEMI) MYOCARDIAL INFARCTION (2) Elevated troponin Current Visit: Yes Status: Acute Code(s): R79.89 - OTHER SPECIFIED ABNORMAL FINDINGS OF BLOOD CHEMISTRY (3) Hyperglycemia due to type 1 diabetes mellitus Current Visit: No Status: Acute Code(s): E10.65 - TYPE 1 DIABETES MELLITUS WITH HYPERGLYCEMIA (4) Diabetes mellitus, insulin dependent (IDDM), uncontrolled Current Visit: No Status: Chronic Code(s): E10.65 - TYPE 1 DIABETES MELLITUS WITH HYPERGLYCEMIA Hospital Summary - Hospital Course Hospital Course: Last Vital Signs Temp 99.8 F 02/14/19 08:00 Pulse 105 H 02/14/19 08:00 Resp 19 02/14/19 08:00 BP 108/58 02/14/19 08:00 Pulse Ox 98 02/14/19 08:00 Allergies orphenadrine citrate [From Norflex] Allergy (Intermediate, Verified 02/13/19 11: 13) severe vomiting hydrocodone bitartrate [From [place]] Adverse Reaction (Mild, Verified 02/13/19 11 :13) nausea vomiting levofloxacin [From Levaquin] Adverse Reaction (Mild, Verified 02/13/19 11:13) Nausea and Vomiting Active Medications Acetaminophen (Tylenol 325 Mg) 650 mg PO Q6H PRN PRN PRN Reason: PAIN AND/OR FEVER Stop: 03/15/19 16:21 Albuterol/Ipratropium (Duoneb 0.5-3 Mg/3 Ml Neb) 3 ml IH QIDRT [facility] Stop: 03/15/19 18:59 Last Admin: 02/13/19 19:25 Dose: 3 ml Alprazolam (Xanax 1 Mg) 1 mg PO HS [facility] Stop: 03/15/19 21:59 Last Admin: 02/13/19 21:24 Dose: 1 mg Cyclobenzaprine HCl (Cyclobenzaprine 10 Mg) 10 mg PO QID [facility] Stop: 03/15/19 21:59 Last Admin: 02/13/19 21:24 Dose: 10 mg Sodium Chloride (Sodium Chloride 0.9% 1000 Ml) 1,000 mls @ 150 mls/hr IV .Q6H40M [facility] Stop: 03/15/19 16:29 Last Admin: 02/13/19 23:54 Dose: 150 mls/hr Cefepime HCl 1 g/ Sodium (Chloride) 100 mls @ 200 mls/hr IV Q12HT [facility] Stop: 03/15/19 21:59 Last Admin: 02/13/19 21:24 Dose: 200 mls/hr Insulin Human Regular 100 (units/ Sodium Chloride) 101 mls @ 2.02 mls/hr IV .Q24H PRN; Protocol PRN Reason: DKA/HYPERGYCEMIA Stop: 03/15/19 19:39 Last Admin: 02/13/19 20:15 Dose: 2 units/hr, 2.02 mls/hr Insulin Aspart (Novolog Insulin) 0 unit SQ UD PRN PRN Reason: HYPERGLYCEMIA Stop: 03/15/19 16:20 Metoclopramide HCl (Reglan 10 Mg) 10 mg PO TID [facility] Stop: 03/15/19 21:59 Last Admin: 02/13/19 21:24 Dose: 10 mg Pantoprazole Sodium (Protonix 40mg Tablet) 40 mg PO DAILY [facility] Stop: 03/16/19 09:59 Patient Own Medication (Patient Own Medication) 0 each IJ PRN PRN Stop: 03/15/19 17:16 Promethazine HCl (Phenergan 25 Mg) 25 mg PO Q6HPRN PRN PRN Reason: NAUSEA Stop: 03/15/19 17:13 Last Admin: 02/14/19 07:28 Dose: 25 mg Intake & Output 02/13/19 02/14/19 11:59 11:59 Intake Total 3621 Output Total 2250 Balance 1371 Weight 59.421 kg 61.9 kg Orders 02/13/19 16:02 Infection Control Consult Nutritional Admission Screen 02/13/19 16:21 Insulin Aspart [NovoLOG Insulin] See Dose Instructions SQ UD PRN 02/13/19 16:22 Acetaminophen 325 mg [Tylenol 325 mg] 650 mg PO Q6H PRN PRN 02/13/19 16:30 NaCl 0.9% 1000 ml [Sodium Chloride 0.9% 1000 ML] 1,000 ml IV 150 mls/hr 02/13/19 17:14 Promethazine HCl 25 mg [Phenergan 25 mg] 25 mg PO Q6HPRN PRN 02/13/19 17:17 Patient Own Med [Patient Own Medication] 0 each IJ PRN PRN 02/13/19 19:00 Albuterol/Ipratropium 3ml Neb* [DUONEB 0.5-3 MG/3 ml Neb] 3 ml IH QIDRT 02/13/19 19:29 Oxygen Nasal Cannula 2 lpm 02/13/19 19:30 Pulse Oximetry .continuos 02/13/19 19:40 NaCl 0.9% 100Ml [Sodium Chloride 0.9% 100 ML IVPB] 100 ml Insulin Reg Human Rec [Novolin R Insulin (For Drips)] 100 units IV 2 units/hr 02/13/19 19:42 ACCUCHECK [Accucheck] Q1H 02/13/19 22:00 Alprazolam 1 mg [Xanax 1 mg] 1 mg PO HS Cefepime HCl 1 gm [Maxipime 1 gm] 1 g NaCl 0.9% 100 ml Mini-Bag Plus [ Sodium Chloride 100ML MINI-BAG PLUS] 100 ml IV Q12HT Cyclobenzaprine HCl 10 mg [Cyclobenzaprine 10 MG] 10 mg PO QID Metoclopramide HCl 10 mg [Reglan 10 MG] 10 mg PO TID 02/13/19 Dinner 1800 Calorie ADA 02/14/19 10:00 PANTOPRAZOLE 40 mg Tablet [Protonix 40MG Tablet] 40 mg PO DAILY Lab Tests 02/13/19 02/13/19 02/13/19 10:51 10:51 10:52 WBC 12.9 H RBC 4.41 Hgb 13.8 Hct 42.3 MCV 95.9 MCH 31.3 MCHC 32.6 RDW 14.0 Plt Count 338 MPV 9.3 Gran % 76.1 H Eos # (Auto) 0.04 Absolute Lymphs (auto) 2.25 Absolute Monos (auto) 0.75 Lymphocytes % 17.5 L Monocytes % 5.8 Eosinophils % 0.3 Basophils % 0.3 Absolute Granulocytes 9.80 H Basophils # 0.04 Puncture Site RIGHT RADIAL pCO2 32 L pO2 68 L Base Excess -7.9 L O2 Saturation 89.4 L ABG pH 7.33 L ABG HCO3 16.9 L* ABG O2 Sat (Measured) 94.1 L Luis Test YES A-a Gradient 42 a/A Ratio 0.62 Hemoglobin 13.5 Carboxyhemoglobin 4.1 Methemoglobin 0.9 L Potassium 4.2 Temperature 37.0 POC O2 Flow Rate 21 Sodium Chloride Carbon Dioxide Anion Gap BUN Creatinine Estimated GFR Glucose Hemoglobin A1c Lactic Acid 1.1 Calcium Total Bilirubin AST ALT Alkaline Phosphatase Troponin I NT-Pro-B Natriuret Pep Serum Total Protein Albumin Beta-Hydroxybutyrate/Acetoacetate Urine Color YELLOW Urine Appearance CLEAR Urine pH 5.0 Ur Specific [place] 1.023 Urine Protein NEGATIVE Urine Ketones MODERATE Urine Blood SMALL Urine Nitrite POSITIVE Urine Bilirubin NEGATIVE Urine Urobilinogen NEGATIVE Ur Leukocyte Esterase TRACE Urine WBC (Auto) 6-10 Urine RBC (Auto) NONE U Hyaline Cast (Auto) 0-2 U Epithel Cells (Auto) NONE Urine Bacteria (Auto) NONE Urine Mucus (Auto) SLIGHT Urine Culture Reflexed YES Urine Glucose >=500 Influenza Type A Ag Influenza Type B Ag RSV (PCR) 02/13/19 02/13/19 02/13/19 11:15 11:15 11:15 WBC RBC Hgb Hct MCV MCH MCHC RDW Plt Count MPV Gran % Eos # (Auto) Absolute Lymphs (auto) Absolute Monos (auto) Lymphocytes % Monocytes % Eosinophils % Basophils % Absolute Granulocytes Basophils # Puncture Site pCO2 pO2 Base Excess O2 Saturation ABG pH ABG HCO3 ABG O2 Sat (Measured) Luis Test A-a Gradient a/A Ratio Hemoglobin Carboxyhemoglobin Methemoglobin Potassium 4.5 Temperature POC O2 Flow Rate Sodium 139 Chloride 98 Carbon Dioxide 19 L Anion Gap 26.4 H BUN 28 H Creatinine 1.31 H Estimated GFR 44.5 Glucose 397 H Hemoglobin A1c Lactic Acid Calcium 10.4 H Total Bilirubin 0.60 AST 22 ALT 21 Alkaline Phosphatase 148 H Troponin I 0.082 H* NT-Pro-B Natriuret Pep 90.5 Serum Total Protein 7.8 Albumin 4.1 Beta-Hydroxybutyrate/Acetoacetate Urine Color Urine Appearance Urine pH Ur Specific [place] Urine Protein Urine Ketones Urine Blood Urine Nitrite Urine Bilirubin Urine Urobilinogen Ur Leukocyte Esterase Urine WBC (Auto) Urine RBC (Auto) U Hyaline Cast (Auto) U Epithel Cells (Auto) Urine Bacteria (Auto) Urine Mucus (Auto) Urine Culture Reflexed Urine Glucose Influenza Type A Ag NEGATIVE Influenza Type B Ag NEGATIVE RSV (PCR) NEGATIVE 02/13/19 02/13/19 02/13/19 11:15 14:01 17:28 WBC RBC Hgb Hct MCV MCH MCHC RDW Plt Count MPV Gran % Eos # (Auto) Absolute Lymphs (auto) Absolute Monos (auto) Lymphocytes % Monocytes % Eosinophils % Basophils % Absolute Granulocytes Basophils # Puncture Site pCO2 pO2 Base Excess O2 Saturation ABG pH ABG HCO3 ABG O2 Sat (Measured) Luis Test A-a Gradient a/A Ratio Hemoglobin Carboxyhemoglobin Methemoglobin Potassium Temperature POC O2 Flow Rate Sodium Chloride Carbon Dioxide Anion Gap BUN Creatinine Estimated GFR Glucose Hemoglobin A1c Lactic Acid Calcium Total Bilirubin AST ALT Alkaline Phosphatase Troponin I 0.089 H* 0.052 H* NT-Pro-B Natriuret Pep Serum Total Protein Albumin Beta-Hydroxybutyrate/Acetoacetate 5.44 H Urine Color Urine Appearance Urine pH Ur Specific [place] Urine Protein Urine Ketones Urine Blood Urine Nitrite Urine Bilirubin Urine Urobilinogen Ur Leukocyte Esterase Urine WBC (Auto) Urine RBC (Auto) U Hyaline Cast (Auto) U Epithel Cells (Auto) Urine Bacteria (Auto) Urine Mucus (Auto) Urine Culture Reflexed Urine Glucose Influenza Type A Ag Influenza Type B Ag RSV (PCR) 02/13/19 02/13/19 02/13/19 17:28 17:28 19:39 WBC RBC Hgb Hct MCV MCH MCHC RDW Plt Count MPV Gran % Eos # (Auto) Absolute Lymphs (auto) Absolute Monos (auto) Lymphocytes % Monocytes % Eosinophils % Basophils % Absolute Granulocytes Basophils # Puncture Site pCO2 pO2 Base Excess O2 Saturation ABG pH ABG HCO3 ABG O2 Sat (Measured) Luis Test A-a Gradient a/A Ratio Hemoglobin Carboxyhemoglobin Methemoglobin Potassium Temperature POC O2 Flow Rate Sodium Chloride Carbon Dioxide Anion Gap BUN Creatinine Estimated GFR Glucose 764 H* Hemoglobin A1c 11.31 H Lactic Acid Calcium Total Bilirubin AST ALT Alkaline Phosphatase Troponin I 0.359 H* NT-Pro-B Natriuret Pep Serum Total Protein Albumin Beta-Hydroxybutyrate/Acetoacetate Urine Color Urine Appearance Urine pH Ur Specific [place] Urine Protein Urine Ketones Urine Blood Urine Nitrite Urine Bilirubin Urine Urobilinogen Ur Leukocyte Esterase Urine WBC (Auto) Urine RBC (Auto) U Hyaline Cast (Auto) U Epithel Cells (Auto) Urine Bacteria (Auto) Urine Mucus (Auto) Urine Culture Reflexed Urine Glucose Influenza Type A Ag Influenza Type B Ag RSV (PCR) 02/13/19 02/13/19 02/14/19 19:39 23:38 04:20 WBC 15.4 H RBC 3.51 L Hgb 11.0 L D Hct 33.5 L MCV 95.4 MCH 31.3 MCHC 32.8 RDW 13.9 Plt Count 315 MPV 9.0 Gran % Eos # (Auto) Absolute Lymphs (auto) Absolute Monos (auto) Lymphocytes % Monocytes % Eosinophils % Basophils % Absolute Granulocytes Basophils # Puncture Site pCO2 pO2 Base Excess O2 Saturation ABG pH ABG HCO3 ABG O2 Sat (Measured) Luis Test A-a Gradient a/A Ratio Hemoglobin Carboxyhemoglobin Methemoglobin Potassium Temperature POC O2 Flow Rate Sodium Chloride Carbon Dioxide Anion Gap BUN Creatinine Estimated GFR Glucose 705 H* Hemoglobin A1c Lactic Acid Calcium Total Bilirubin AST ALT Alkaline Phosphatase Troponin I 9.000 H* NT-Pro-B Natriuret Pep Serum Total Protein Albumin Beta-Hydroxybutyrate/Acetoacetate Urine Color Urine Appearance Urine pH Ur Specific [place] Urine Protein Urine Ketones Urine Blood Urine Nitrite Urine Bilirubin Urine Urobilinogen Ur Leukocyte Esterase Urine WBC (Auto) Urine RBC (Auto) U Hyaline Cast (Auto) U Epithel Cells (Auto) Urine Bacteria (Auto) Urine Mucus (Auto) Urine Culture Reflexed Urine Glucose Influenza Type A Ag Influenza Type B Ag RSV (PCR) 02/14/19 02/14/19 04:20 04:20 WBC RBC Hgb Hct MCV MCH MCHC RDW Plt Count MPV Gran % Eos # (Auto) Absolute Lymphs (auto) Absolute Monos (auto) Lymphocytes % Monocytes % Eosinophils % Basophils % Absolute Granulocytes Basophils # Puncture Site pCO2 pO2 Base Excess O2 Saturation ABG pH ABG HCO3 ABG O2 Sat (Measured) Luis Test A-a Gradient a/A Ratio Hemoglobin Carboxyhemoglobin Methemoglobin Potassium 4.4 Temperature POC O2 Flow Rate Sodium 137 Chloride 107 Carbon Dioxide 19 L Anion Gap 15.2 H BUN 27 H Creatinine 0.90 Estimated GFR > 60.0 Glucose 167 H Hemoglobin A1c Lactic Acid Calcium 8.7 D Total Bilirubin 0.30 AST 60 H ALT 20 Alkaline Phosphatase 103 Troponin I 17.000 H* NT-Pro-B Natriuret Pep Serum Total Protein 5.5 L Albumin 2.7 L Beta-Hydroxybutyrate/Acetoacetate Urine Color Urine Appearance Urine pH Ur Specific [place] Urine Protein Urine Ketones Urine Blood Urine Nitrite Urine Bilirubin Urine Urobilinogen Ur Leukocyte Esterase Urine WBC (Auto) Urine RBC (Auto) U Hyaline Cast (Auto) U Epithel Cells (Auto) Urine Bacteria (Auto) Urine Mucus (Auto) Urine Culture Reflexed Urine Glucose Influenza Type A Ag Influenza Type B Ag RSV (PCR) Microbiology 02/13/19 10:52 Clean Catch Midstream Urine Culture - Preliminary NO GROWTH TO DATE - Vitals & Intake/Output Vital Signs: Vital Signs Temperature 99.8 F 02/14/19 08:00 Pulse Rate 105 H 02/14/19 08:00 Respiratory Rate 19 02/14/19 08:00 Blood Pressure 108/58 02/14/19 08:00 O2 Sat by Pulse Oximetry 98 02/14/19 08:00 Oxygen-Last Documented O2 Percentage 2 Liters = 28% Intake & Output: Intake & Output 02/11/19 02/12/19 02/13/19 02/14/19 11:59 11:59 11:59 11:59 Intake Total 3621 Output Total 2250 Balance 1371 Weight 59.421 kg 61.9 kg - Lab Result Diagrams: 02/14/19 04:20 02/14/19 04:20 Lab Results-Last 24 Hrs: Accuchecks Date 02/14/19 Time 07:15 Accucheck Value: 304 Accucheck Value: 288 Accucheck Value: 216 Accucheck Value: 342 Accucheck Value: 468 Accucheck Value: 764 Lab Results-Last 24 Hours 02/13/19 02/13/19 02/13/19 Range/Units 10:51 10:51 10:52 WBC 12.9 H (4.0-10.5) K/mm3 RBC 4.41 (4.1-5.4) M/mm3 Hgb 13.8 (12.0-16.0) gm/dl Hct 42.3 (35-47) % MCV 95.9 (78-100) fl MCH 31.3 (26-32) pg MCHC 32.6 (32-36) g/dl RDW 14.0 (11.5-14.0) % Plt Count 338 (150-450) K/mm3 MPV 9.3 (6-9.5) fl Gran % 76.1 H (36.0-66.0) % Eos # (Auto) 0.04 (0-0.5) Absolute Lymphs (auto) 2.25 (1.0-4.6) Absolute Monos (auto) 0.75 (0.0-1.3) Lymphocytes % 17.5 L (24.0-44.0) % Monocytes % 5.8 (0.0-12.0) % Eosinophils % 0.3 (0.00-5.0) % Basophils % 0.3 (0.0-0.4) % Absolute Granulocytes 9.80 H (1.4-6.9) Basophils # 0.04 (0-0.4) Puncture Site RIGHT RADIAL pCO2 32 L (35-45) mmHg pO2 68 L (75-100) mmHg Base Excess -7.9 L (-2.0-2.0) O2 Saturation 89.4 L (94-100) g/dF ABG pH 7.33 L (7.35-7.45) ABG HCO3 16.9 L* (22-28) ABG O2 Sat (Measured) 94.1 L (95-100) % Luis Test YES A-a Gradient 42 a/A Ratio 0.62 Hemoglobin 13.5 Carboxyhemoglobin 4.1 (0.0-6.9) % THgb Methemoglobin 0.9 L (1.4-1.5) % Potassium 4.2 (3.5-5.1) Temperature 37.0 C POC O2 Flow Rate 21 % Sodium (137-145) mmol/L Chloride (98-107) mmol/L Carbon Dioxide (22-30) mmol/L Anion Gap (5-15) MEQ/L BUN (7-17) mg/dL Creatinine (0.52-1.04) mg/dL Estimated GFR ML/MIN Glucose (74-106) mg/dL Hemoglobin A1c (4.5-6.0) % Lactic Acid 1.1 (0.4-2.0) Calcium (8.4-10.2) mg/dL Total Bilirubin (0.2-1.3) mg/dL AST (14-36) U/L ALT (0-35) U/L Alkaline Phosphatase (38-126) U/L Troponin I (0.000-0.034) ng/mL NT-Pro-B Natriuret Pep (0-900) pg/mL Serum Total Protein (6.3-8.2) g/dL Albumin (3.5-5.0) g/dL Beta-Hydroxybutyrate/Acetoacetate (0.02-0.27) mmol/L Urine Color YELLOW (YELLOW) Urine Appearance CLEAR (CLEAR) Urine pH 5.0 (5-6) Ur Specific [place] 1.023 (1.005-1.025) Urine Protein NEGATIVE (Negative) Urine Ketones MODERATE (NEGATIVE) Urine Blood SMALL (0-5) Tato/ul Urine Nitrite POSITIVE (NEGATIVE) Urine Bilirubin NEGATIVE (NEGATIVE) Urine Urobilinogen NEGATIVE (0-1) mg/dL Ur Leukocyte Esterase TRACE (NEGATIVE) Urine WBC (Auto) 6-10 (0-5) /HPF Urine RBC (Auto) NONE (0-2) /HPF U Hyaline Cast (Auto) 0-2 (0-2) /LPF U Epithel Cells (Auto) NONE (FEW) /HPF Urine Bacteria (Auto) NONE (NEGATIVE) /HPF Urine Mucus (Auto) SLIGHT (NEGATIVE) /HPF Urine Culture Reflexed YES (NO) Urine Glucose >=500 (NEGATIVE) mg/dL Influenza Type A Ag (NEGATIVE) Influenza Type B Ag (NEGATIVE) RSV (PCR) (Negative) 02/13/19 02/13/19 02/13/19 Range/Units 11:15 11:15 11:15 WBC (4.0-10.5) K/mm3 RBC (4.1-5.4) M/mm3 Hgb (12.0-16.0) gm/dl Hct (35-47) % MCV (78-100) fl MCH (26-32) pg MCHC (32-36) g/dl RDW (11.5-14.0) % Plt Count (150-450) K/mm3 MPV (6-9.5) fl Gran % (36.0-66.0) % Eos # (Auto) (0-0.5) Absolute Lymphs (auto) (1.0-4.6) Absolute Monos (auto) (0.0-1.3) Lymphocytes % (24.0-44.0) % Monocytes % (0.0-12.0) % Eosinophils % (0.00-5.0) % Basophils % (0.0-0.4) % Absolute Granulocytes (1.4-6.9) Basophils # (0-0.4) Puncture Site pCO2 (35-45) mmHg pO2 (75-100) mmHg Base Excess (-2.0-2.0) O2 Saturation (94-100) g/dF ABG pH (7.35-7.45) ABG HCO3 (22-28) ABG O2 Sat (Measured) (95-100) % Luis Test A-a Gradient a/A Ratio Hemoglobin Carboxyhemoglobin (0.0-6.9) % THgb Methemoglobin (1.4-1.5) % Potassium 4.5 (3.5-5.1) Temperature C POC O2 Flow Rate % Sodium 139 (137-145) mmol/L Chloride 98 (98-107) mmol/L Carbon Dioxide 19 L (22-30) mmol/L Anion Gap 26.4 H (5-15) MEQ/L BUN 28 H (7-17) mg/dL Creatinine 1.31 H (0.52-1.04) mg/dL Estimated GFR 44.5 ML/MIN Glucose 397 H (74-106) mg/dL Hemoglobin A1c (4.5-6.0) % Lactic Acid (0.4-2.0) Calcium 10.4 H (8.4-10.2) mg/dL Total Bilirubin 0.60 (0.2-1.3) mg/dL AST 22 (14-36) U/L ALT 21 (0-35) U/L Alkaline Phosphatase 148 H (38-126) U/L Troponin I 0.082 H* (0.000-0.034) ng/mL NT-Pro-B Natriuret Pep 90.5 (0-900) pg/mL Serum Total Protein 7.8 (6.3-8.2) g/dL Albumin 4.1 (3.5-5.0) g/dL Beta-Hydroxybutyrate/Acetoacetate (0.02-0.27) mmol/L Urine Color (YELLOW) Urine Appearance (CLEAR) Urine pH (5-6) Ur Specific [place] (1.005-1.025) Urine Protein (Negative) Urine Ketones (NEGATIVE) Urine Blood (0-5) Tato/ul Urine Nitrite (NEGATIVE) Urine Bilirubin (NEGATIVE) Urine Urobilinogen (0-1) mg/dL Ur Leukocyte Esterase (NEGATIVE) Urine WBC (Auto) (0-5) /HPF Urine RBC (Auto) (0-2) /HPF U Hyaline Cast (Auto) (0-2) /LPF U Epithel Cells (Auto) (FEW) /HPF Urine Bacteria (Auto) (NEGATIVE) /HPF Urine Mucus (Auto) (NEGATIVE) /HPF Urine Culture Reflexed (NO) Urine Glucose (NEGATIVE) mg/dL Influenza Type A Ag NEGATIVE (NEGATIVE) Influenza Type B Ag NEGATIVE (NEGATIVE) RSV (PCR) NEGATIVE (Negative) 02/13/19 02/13/19 02/13/19 Range/Units 11:15 14:01 17:28 WBC (4.0-10.5) K/mm3 RBC (4.1-5.4) M/mm3 Hgb (12.0-16.0) gm/dl Hct (35-47) % MCV (78-100) fl MCH (26-32) pg MCHC (32-36) g/dl RDW (11.5-14.0) % Plt Count (150-450) K/mm3 MPV (6-9.5) fl Gran % (36.0-66.0) % Eos # (Auto) (0-0.5) Absolute Lymphs (auto) (1.0-4.6) Absolute Monos (auto) (0.0-1.3) Lymphocytes % (24.0-44.0) % Monocytes % (0.0-12.0) % Eosinophils % (0.00-5.0) % Basophils % (0.0-0.4) % Absolute Granulocytes (1.4-6.9) Basophils # (0-0.4) Puncture Site pCO2 (35-45) mmHg pO2 (75-100) mmHg Base Excess (-2.0-2.0) O2 Saturation (94-100) g/dF ABG pH (7.35-7.45) ABG HCO3 (22-28) ABG O2 Sat (Measured) (95-100) % Luis Test A-a Gradient a/A Ratio Hemoglobin Carboxyhemoglobin (0.0-6.9) % THgb Methemoglobin (1.4-1.5) % Potassium (3.5-5.1) Temperature C POC O2 Flow Rate % Sodium (137-145) mmol/L Chloride (98-107) mmol/L Carbon Dioxide (22-30) mmol/L Anion Gap (5-15) MEQ/L BUN (7-17) mg/dL Creatinine (0.52-1.04) mg/dL Estimated GFR ML/MIN Glucose (74-106) mg/dL Hemoglobin A1c (4.5-6.0) % Lactic Acid (0.4-2.0) Calcium (8.4-10.2) mg/dL Total Bilirubin (0.2-1.3) mg/dL AST (14-36) U/L ALT (0-35) U/L Alkaline Phosphatase (38-126) U/L Troponin I 0.089 H* 0.052 H* (0.000-0.034) ng/mL NT-Pro-B Natriuret Pep (0-900) pg/mL Serum Total Protein (6.3-8.2) g/dL Albumin (3.5-5.0) g/dL Beta-Hydroxybutyrate/Acetoacetate 5.44 H (0.02-0.27) mmol/L Urine Color (YELLOW) Urine Appearance (CLEAR) Urine pH (5-6) Ur Specific [place] (1.005-1.025) Urine Protein (Negative) Urine Ketones (NEGATIVE) Urine Blood (0-5) Tato/ul Urine Nitrite (NEGATIVE) Urine Bilirubin (NEGATIVE) Urine Urobilinogen (0-1) mg/dL Ur Leukocyte Esterase (NEGATIVE) Urine WBC (Auto) (0-5) /HPF Urine RBC (Auto) (0-2) /HPF U Hyaline Cast (Auto) (0-2) /LPF U Epithel Cells (Auto) (FEW) /HPF Urine Bacteria (Auto) (NEGATIVE) /HPF Urine Mucus (Auto) (NEGATIVE) /HPF Urine Culture Reflexed (NO) Urine Glucose (NEGATIVE) mg/dL Influenza Type A Ag (NEGATIVE) Influenza Type B Ag (NEGATIVE) RSV (PCR) (Negative) 02/13/19 02/13/19 02/13/19 Range/Units 17:28 17:28 19:39 WBC (4.0-10.5) K/mm3 RBC (4.1-5.4) M/mm3 Hgb (12.0-16.0) gm/dl Hct (35-47) % MCV (78-100) fl MCH (26-32) pg MCHC (32-36) g/dl RDW (11.5-14.0) % Plt Count (150-450) K/mm3 MPV (6-9.5) fl Gran % (36.0-66.0) % Eos # (Auto) (0-0.5) Absolute Lymphs (auto) (1.0-4.6) Absolute Monos (auto) (0.0-1.3) Lymphocytes % (24.0-44.0) % Monocytes % (0.0-12.0) % Eosinophils % (0.00-5.0) % Basophils % (0.0-0.4) % Absolute Granulocytes (1.4-6.9) Basophils # (0-0.4) Puncture Site pCO2 (35-45) mmHg pO2 (75-100) mmHg Base Excess (-2.0-2.0) O2 Saturation (94-100) g/dF ABG pH (7.35-7.45) ABG HCO3 (22-28) ABG O2 Sat (Measured) (95-100) % Luis Test A-a Gradient a/A Ratio Hemoglobin Carboxyhemoglobin (0.0-6.9) % THgb Methemoglobin (1.4-1.5) % Potassium (3.5-5.1) Temperature C POC O2 Flow Rate % Sodium (137-145) mmol/L Chloride (98-107) mmol/L Carbon Dioxide (22-30) mmol/L Anion Gap (5-15) MEQ/L BUN (7-17) mg/dL Creatinine (0.52-1.04) mg/dL Estimated GFR ML/MIN Glucose 764 H* (74-106) mg/dL Hemoglobin A1c 11.31 H (4.5-6.0) % Lactic Acid (0.4-2.0) Calcium (8.4-10.2) mg/dL Total Bilirubin (0.2-1.3) mg/dL AST (14-36) U/L ALT (0-35) U/L Alkaline Phosphatase (38-126) U/L Troponin I 0.359 H* (0.000-0.034) ng/mL NT-Pro-B Natriuret Pep (0-900) pg/mL Serum Total Protein (6.3-8.2) g/dL Albumin (3.5-5.0) g/dL Beta-Hydroxybutyrate/Acetoacetate (0.02-0.27) mmol/L Urine Color (YELLOW) Urine Appearance (CLEAR) Urine pH (5-6) Ur Specific [place] (1.005-1.025) Urine Protein (Negative) Urine Ketones (NEGATIVE) Urine Blood (0-5) Tato/ul Urine Nitrite (NEGATIVE) Urine Bilirubin (NEGATIVE) Urine Urobilinogen (0-1) mg/dL Ur Leukocyte Esterase (NEGATIVE) Urine WBC (Auto) (0-5) /HPF Urine RBC (Auto) (0-2) /HPF U Hyaline Cast (Auto) (0-2) /LPF U Epithel Cells (Auto) (FEW) /HPF Urine Bacteria (Auto) (NEGATIVE) /HPF Urine Mucus (Auto) (NEGATIVE) /HPF Urine Culture Reflexed (NO) Urine Glucose (NEGATIVE) mg/dL Influenza Type A Ag (NEGATIVE) Influenza Type B Ag (NEGATIVE) RSV (PCR) (Negative) 1002/13/19 02/14/19 Range/Units 19:39 23:38 04:20 WBC 15.4 H (4.0-10.5) K/mm3 RBC 3.51 L (4.1-5.4) M/mm3 Hgb 11.0 L D (12.0-16.0) gm/dl Hct 33.5 L (35-47) % MCV 95.4 (78-100) fl MCH 31.3 (26-32) pg MCHC 32.8 (32-36) g/dl RDW 13.9 (11.5-14.0) % Plt Count 315 (150-450) K/mm3 MPV 9.0 (6-9.5) fl Gran % (36.0-66.0) % Eos # (Auto) (0-0.5) Absolute Lymphs (auto) (1.0-4.6) Absolute Monos (auto) (0.0-1.3) Lymphocytes % (24.0-44.0) % Monocytes % (0.0-12.0) % Eosinophils % (0.00-5.0) % Basophils % (0.0-0.4) % Absolute Granulocytes (1.4-6.9) Basophils # (0-0.4) Puncture Site pCO2 (35-45) mmHg pO2 (75-100) mmHg Base Excess (-2.0-2.0) O2 Saturation (94-100) g/dF ABG pH (7.35-7.45) ABG HCO3 (22-28) ABG O2 Sat (Measured) (95-100) % Luis Test A-a Gradient a/A Ratio Hemoglobin Carboxyhemoglobin (0.0-6.9) % THgb Methemoglobin (1.4-1.5) % Potassium (3.5-5.1) Temperature C POC O2 Flow Rate % Sodium (137-145) mmol/L Chloride (98-107) mmol/L Carbon Dioxide (22-30) mmol/L Anion Gap (5-15) MEQ/L BUN (7-17) mg/dL Creatinine (0.52-1.04) mg/dL Estimated GFR ML/MIN Glucose 705 H* (74-106) mg/dL Hemoglobin A1c (4.5-6.0) % Lactic Acid (0.4-2.0) Calcium (8.4-10.2) mg/dL Total Bilirubin (0.2-1.3) mg/dL AST (14-36) U/L ALT (0-35) U/L Alkaline Phosphatase (38-126) U/L Troponin I 9.000 H* (0.000-0.034) ng/mL NT-Pro-B Natriuret Pep (0-900) pg/mL Serum Total Protein (6.3-8.2) g/dL Albumin (3.5-5.0) g/dL Beta-Hydroxybutyrate/Acetoacetate (0.02-0.27) mmol/L Urine Color (YELLOW) Urine Appearance (CLEAR) Urine pH (5-6) Ur Specific [place] (1.005-1.025) Urine Protein (Negative) Urine Ketones (NEGATIVE) Urine Blood (0-5) Tato/ul Urine Nitrite (NEGATIVE) Urine Bilirubin (NEGATIVE) Urine Urobilinogen (0-1) mg/dL Ur Leukocyte Esterase (NEGATIVE) Urine WBC (Auto) (0-5) /HPF Urine RBC (Auto) (0-2) /HPF U Hyaline Cast (Auto) (0-2) /LPF U Epithel Cells (Auto) (FEW) /HPF Urine Bacteria (Auto) (NEGATIVE) /HPF Urine Mucus (Auto) (NEGATIVE) /HPF Urine Culture Reflexed (NO) Urine Glucose (NEGATIVE) mg/dL Influenza Type A Ag (NEGATIVE) Influenza Type B Ag (NEGATIVE) RSV (PCR) (Negative) 02/14/19 02/14/19 Range/Units 04:20 04:20 WBC (4.0-10.5) K/mm3 RBC (4.1-5.4) M/mm3 Hgb (12.0-16.0) gm/dl Hct (35-47) % MCV (78-100) fl MCH (26-32) pg MCHC (32-36) g/dl RDW (11.5-14.0) % Plt Count (150-450) K/mm3 MPV (6-9.5) fl Gran % (36.0-66.0) % Eos # (Auto) (0-0.5) Absolute Lymphs (auto) (1.0-4.6) Absolute Monos (auto) (0.0-1.3) Lymphocytes % (24.0-44.0) % Monocytes % (0.0-12.0) % Eosinophils % (0.00-5.0) % Basophils % (0.0-0.4) % Absolute Granulocytes (1.4-6.9) Basophils # (0-0.4) Puncture Site pCO2 (35-45) mmHg pO2 (75-100) mmHg Base Excess (-2.0-2.0) O2 Saturation (94-100) g/dF ABG pH (7.35-7.45) ABG HCO3 (22-28) ABG O2 Sat (Measured) (95-100) % Luis Test A-a Gradient a/A Ratio Hemoglobin Carboxyhemoglobin (0.0-6.9) % THgb Methemoglobin (1.4-1.5) % Potassium 4.4 (3.5-5.1) Temperature C POC O2 Flow Rate % Sodium 137 (137-145) mmol/L Chloride 107 (98-107) mmol/L Carbon Dioxide 19 L (22-30) mmol/L Anion Gap 15.2 H (5-15) MEQ/L BUN 27 H (7-17) mg/dL Creatinine 0.90 (0.52-1.04) mg/dL Estimated GFR > 60.0 ML/MIN Glucose 167 H (74-106) mg/dL Hemoglobin A1c (4.5-6.0) % Lactic Acid (0.4-2.0) Calcium 8.7 D (8.4-10.2) mg/dL Total Bilirubin 0.30 (0.2-1.3) mg/dL AST 60 H (14-36) U/L ALT 20 (0-35) U/L Alkaline Phosphatase 103 (38-126) U/L Troponin I 17.000 H* (0.000-0.034) ng/mL NT-Pro-B Natriuret Pep (0-900) pg/mL Serum Total Protein 5.5 L (6.3-8.2) g/dL Albumin 2.7 L (3.5-5.0) g/dL Beta-Hydroxybutyrate/Acetoacetate (0.02-0.27) mmol/L Urine Color (YELLOW) Urine Appearance (CLEAR) Urine pH (5-6) Ur Specific [place] (1.005-1.025) Urine Protein (Negative) Urine Ketones (NEGATIVE) Urine Blood (0-5) Tato/ul Urine Nitrite (NEGATIVE) Urine Bilirubin (NEGATIVE) Urine Urobilinogen (0-1) mg/dL Ur Leukocyte Esterase (NEGATIVE) Urine WBC (Auto) (0-5) /HPF Urine RBC (Auto) (0-2) /HPF U Hyaline Cast (Auto) (0-2) /LPF U Epithel Cells (Auto) (FEW) /HPF Urine Bacteria (Auto) (NEGATIVE) /HPF Urine Mucus (Auto) (NEGATIVE) /HPF Urine Culture Reflexed (NO) Urine Glucose (NEGATIVE) mg/dL Influenza Type A Ag (NEGATIVE) Influenza Type B Ag (NEGATIVE) RSV (PCR) (Negative) Micro Results-Entire Visit: Microbiology 02/13/19 10:52 Urine Culture - Preliminary Clean Catch Midstream NO GROWTH TO DATE Accuchecks Date 02/14/19 Time 07:15 Accucheck Value: 304 Accucheck Value: 288 Accucheck Value: 216 Accucheck Value: 342 Accucheck Value: 468 Accucheck Value: 764 - Radiology Exams Ordered Rad Exams-Entire Visit: Radiology Procedures Category Date Time Status CHEST 2 VIEWS (PA AND LAT) Stat Exams 02/13/19 10:39 Completed CHEST WITH CONTRAST [CT] Stat Exams 02/13/19 13:19 Completed - Procedures and Test Procedures and Tests throughout Hospitalization: Therapy Orders & Screens 02/13/19 11:42 Respiratory Therapy Assessment DAILY Comment: Diagnosis: SOB, Cough 02/13/19 11:43 Peak Expiratory Flow Rate ONCE Comment: Reason For Exam: Diagnosis: SOB, Cough 02/13/19 16:02 Smoking Cessation Education ONCE Comment: Diagnosis: Sepsis; increased troponin; hyperglycemia; exac COPD Smoking Status: Current every day smoker How long have you smoked: 40 years Have you smoked in the past 12 months: Yes Approximately how many cigarettes per day: 30 Do you dip or chew tobacco: No 02/13/19 19:29 Oxygen Nasal Cannula 2 lpm Comment: Diagnosis: Sepsis; increased troponin; hyperglycemia; exac COPD 02/14/19 05:00 EKG ROUTINE Comment: elevated troponin Diagnosis: Sepsis; increased troponin; hyperglycemia; exac COPD - Discharge Discharge Date: 02/14/19 [facility] Condition: Stable Prescriptions: No Action Metoclopramide HCl [Reglan] 10 mg PO TID PANTOPRAZOLE 40 mg Tablet [Protonix 40MG Tablet] 40 mg PO DAILY Promethazine HCl 25 mg [Phenergan 25 mg] 25 mg PO Q6HPRN PRN PRN Reason: Nausea Insulin Lispro [Humalog] 1 unit SQ UD Alprazolam 1 mg [Xanax 1 mg] 1 mg PO HS Albuterol Sulfate [Albuterol Sulfate Hfa] 2 puff IH Q4-6HPRN PRN #1 [id number] PRN Reason: cough or wheeze Cyclobenzaprine HCl 10 mg [Cyclobenzaprine 10 MG] 10 mg PO QID Follow up with: LYUDMILA ARIAS MD [Primary Care Provider] - 1 Week
[2019-02-14] MEDS: MAXIPIME 1 GM** 1 G in Sodium Chloride 100ML MINI-BAG PLUS 100 ML IV SCH (09:12)
[2019-02-14] MEDS: Cyclobenzaprine 10 MG PO SCH (09:12)
[2019-02-14] MEDS: Reglan 10 MG PO SCH (09:12)
[2019-02-14] MEDS: DUONEB 0.5-3 MG/3 ml Neb IH SCH (09:44)
[2019-02-14 09:49] VITALS: O2SAT 96
[2019-02-14] MEDS ORDERED: Protonix 40MG Tablet PO SCH (10:00)
[2019-02-14 10:54] VITALS: BP 115/64; PULSE 96
== END 2019-02-14 10:40 | disposition short-term general hospital (02) ==
LOC: ED 10:30 → ICU 14:12
PROVIDERS: ADMIT General Practice; ATTEND General Practice
DX: I21.4 Non-ST elevation (NSTEMI) myocardial infarction (principal); J44.9 Chronic obstructive pulmonary disease, unspecified; E10.65 Type 1 diabetes mellitus with hyperglycemia; Z79.899 Other long term (current) drug therapy; F17.200 Nicotine dependence, unspecified, uncomplicated
CPT/HCPCS: 36000; 36415; 36600; 71046; 71260; 80053; 81001; 82010; 82375; 82803; 82947; 82962; 83036; 83605; 83880; 84484; 85025; 85027; 86141; 87040; 87077; 87086; 87186; 87631; 93005; 93041; 93268; 94150; 94640; 94760; 94762; 96372; 99285; G0378; J0171; J0692; J1815; J2550; A9270-GY

== ENCOUNTER 2019-06-19 18:15 | Observation (INO) | payer OTHER ==
--- NOTE | 2019-06-19 18:18 | ERPHSYRPT ---
- History of Present Illness Time Seen by Provider: 06/19/19 18:18 Source: patient, family Exam Limitations: no limitations Physician History: 58-year-old diabetic white female who presents with primary complaint of nausea. Patient has noticed in the last few days her blood sugar has been higher than usual. Patient has a new insulin pump unit. She is unsure if it is working properly. Prior to arrival, the patient's blood sugar was reading out as over 600. She is given herself several units more than typical for her and yet her blood sugar still remains high. Patient has a history of insulin- dependent diabetes, COPD, chronic renal disease and has had diabetic ketoacidosis episodes in the past. Patient denies shortness of breath, patient denies chest pain, patient denies abdominal pain at this time. Timing/Duration: today Severity: moderate Associated Symptoms: nausea, No denies symptoms, No vomiting, No abdominal pain Allergies/Adverse Reactions: orphenadrine citrate [From Norflex] Allergy (Intermediate, Verified 02/13/19 11: 13) severe vomiting hydrocodone bitartrate [From [place]] Adverse Reaction (Mild, Verified 02/13/19 11 :13) nausea vomiting levofloxacin [From Levaquin] Adverse Reaction (Mild, Verified 02/13/19 11:13) Nausea and Vomiting Home Medications: Insulin Lispro [Humalog] 1 unit SQ UD 11/14/16 [History] Metoclopramide HCl [Reglan] 10 mg PO TID 11/14/16 [History] PANTOPRAZOLE 40 mg Tablet [Protonix 40MG Tablet] 40 mg PO DAILY 11/14/16 [ History] Promethazine HCl 25 mg [Phenergan 25 mg] 25 mg PO Q6HPRN PRN 11/14/16 [ History] Cyclobenzaprine HCl 10 mg [Cyclobenzaprine 10 MG] 10 mg PO QID 02/13/19 [ History] Hx Tetanus, Diphtheria Vaccination/Date Given: Yes Hx Influenza Vaccination/Date Given: Yes Hx Pneumococcal Vaccination/Date Given: Yes - Review of Systems Constitutional: No Symptoms Eyes: No Symptoms Ears, Nose, & Throat: No Symptoms Respiratory: No Symptoms, No Dyspnea Cardiac: No Symptoms, No Chest Pain Abdominal/Gastrointestinal: Nausea, No Abdominal Pain, No Vomiting, No Diarrhea Genitourinary Symptoms: No Symptoms Musculoskeletal: No Symptoms Skin: No Symptoms Neurological: No Symptoms Psychological: No Symptoms Endocrine: No Symptoms Hematologic/Lymphatic: No Symptoms Immunological/Allergic: No Symptoms All Other Systems: Reviewed and Negative - Past Medical History Pertinent Past Medical History: Yes Neurological History: No Pertinent History ENT History: No Pertinent History Cardiac History: Coronary Artery Disease Respiratory History: COPD Endocrine Medical History: Diabetes Type I Musculoskeletal History: Degenerative Disk Disease, Other GI Medical History: GERD History: Renal Disease Psycho-Social History: Anxiety, Depression Female Reproductive Disorders: No Pertinent History Other Medical History: HAS INSULIN PUMP. cardiac STENT PLACEMENT X 2, back problem, renal failure - Past Surgical History Past Surgical History: Yes Neuro Surgical History: No Pertinent History Cardiac: Cardiac Catheterization, Cardiac Stent Respiratory: No Pertinent History Gastrointestinal: Cholecystectomy Genitourinary: No Pertinent History Musculoskeletal: Other Female Surgical History: Tubal Ligation Other Surgical History: BUNONECTOMY. BACK SURGERY X2 - Social History Smoking Status: Current every day smoker How long have you smoked: 40 years Exposure to second hand smoke: Yes Alcohol Use: None Drug Use: none Patient Lives Alone: No Significant Family History: heart disease, diabetes, hypertension - Nursing Vital Signs Nursing Vital Signs: Initial Vital Signs Temperature 97.6 F 06/19/19 18:27 Pulse Rate 111 H 06/19/19 18:27 Respiratory Rate 18 06/19/19 18:27 Blood Pressure 127/69 06/19/19 18:27 O2 Sat by Pulse Oximetry 100 06/19/19 18:27 Pain Scale Pain Intensity 0 - Physical Exam General Appearance: mild distress, alert, anxiety Eye Exam: PERRL/EOMI, eyes nml inspection Ears, Nose, Throat Exam: normal ENT inspection, moist mucous membranes Neck Exam: normal inspection, non-tender, supple, full range of motion Respiratory Exam: normal breath sounds, lungs clear, No chest tenderness, No respiratory distress, No airway intact Cardiovascular Exam: tachycardia (Mild) Gastrointestinal/Abdomen Exam: soft, normal bowel sounds, No tenderness Pelvic Exam: not done Rectal Exam: not done Back Exam: normal inspection, normal range of motion, vertebral tenderness, No CVA tenderness Extremity Exam: normal inspection, normal range of motion, pelvis stable Neurologic Exam: alert, oriented x 3, 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, 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 Skin Exam: normal color, warm, dry Lymphatic Exam: No adenopathy SpO2 Interpretation: normal O2 Delivery: Room Air - Course Nursing assessment & vital signs reviewed: Yes Ordered Tests: Active Orders 24 hr Category Date Time Status [employer] STAT Care 06/19/19 18:39 Active IV Insertion STAT Care 06/19/19 18:39 Active Pulse Oximetry (ED) STAT Care 06/19/19 18:39 Active CBC W DIFF Stat Lab 06/19/19 19:15 Completed CMP Stat Lab 06/19/19 19:15 Completed CULTURE,URINE Stat Lab 06/19/19 19:58 Received Lactic Acid Stat Lab 06/19/19 22:33 Received Lactic Acid Urgent Lab 06/19/19 20:29 Completed UA W/RFX UR CULTURE Stat Lab 06/19/19 19:58 Completed Transfer Order Routine Transfer 06/19/19 Ordered Medication Summary Discontinued Medications Generic Name Dose Route Start Last Admin Trade Name Freq PRN Reason Stop Dose Admin Sodium Chloride 1,000 mls @ 999 mls/hr 06/19/19 18:39 06/19/19 18:50 Sodium Chloride 0.9% 1000 Ml IV 06/19/19 19:39 999 mls/hr .Q1H1M STA Administration Sodium Chloride Confirm 06/19/19 18:49 Sodium Chloride 0.9% 1000 Ml Administered 06/19/19 18:50 Dose 1,000 mls @ ud .ROUTE .STK-MED ONE Sodium Chloride 1,000 mls @ 999 mls/hr 06/19/19 20:30 06/19/19 20:38 Sodium Chloride 0.9% 1000 Ml IV 06/19/19 21:30 999 mls/hr .Q1H1M STA Administration Ceftriaxone Sodium/Dextrose 1 g in 50 mls @ 100 mls/hr 06/19/19 20:31 20:39 Rocephin 1 Gm-D5w 50 Ml Bag IV 06/19/19 21:00 100 mls/hr STAT STA 100 mls/hr Administration Sodium Chloride Confirm 06/19/19 20:36 Sodium Chloride 0.9% 1000 Ml Administered 06/19/19 20:37 Dose 1,000 mls @ ud .ROUTE .STK-MED ONE Ceftriaxone Sodium/Dextrose Confirm 06/19/19 20:36 Rocephin 1 Gm-D5w 50 Ml Bag Administered 06/19/19 20:37 Dose 1 g in 50 mls @ ud IV .STK-MED ONE Insulin Human Regular 20 unit 06/19/19 20:17 06/19/19 20:27 Humulin R IV 06/19/19 20:18 20 unit STAT STA Administration Insulin Human Regular Confirm 06/19/19 20:27 Humulin R Administered 06/19/19 20:28 Dose 20 unit .ROUTE .STK-MED ONE Promethazine HCl 25 mg 06/19/19 18:39 06/19/19 18:50 Phenergan 25 Mg Inj IM 06/19/19 18:40 25 mg STAT ONE Administration Promethazine HCl Confirm 06/19/19 18:49 Phenergan 25 Mg Inj Administered 06/19/19 18:50 Dose 25 mg .ROUTE .STK-MED ONE Lab/Rad Data: Laboratory Result Diagrams 06/19/19 19:15 06/19/19 19:15 Laboratory Results 06/19/19 06/19/19 06/19/19 Range/Units 20:29 19:58 19:15 WBC (4.0-10.5) K/mm3 RBC (4.1-5.4) M/mm3 Hgb (12.0-16.0) gm/dl Hct (35-47) % MCV (78-100) fl MCH (26-32) pg MCHC (32-36) g/dl RDW (11.5-14.0) % Plt Count (150-450) K/mm3 MPV (7.5-11.0) fl Gran % (36.0-66.0) % Eos # (Auto) (0-0.5) Absolute Lymphs (auto) (1.0-4.6) Absolute Monos (auto) (0.0-1.3) Lymphocytes % (24.0-44.0) % Monocytes % (0.0-12.0) % Eosinophils % (0.00-5.0) % Basophils % (0.0-0.4) % Absolute Granulocytes (1.4-6.9) Basophils # (0-0.4) Sodium 134 L (137-145) mmol/L Potassium 4.4 (3.5-5.1) mmol/L Chloride 98 (98-107) mmol/L Carbon Dioxide 16 L* (22-30) mmol/L Anion Gap 23.3 H (5-15) MEQ/L BUN 39 H (7-17) mg/dL Creatinine 1.20 H (0.52-1.04) mg/dL Estimated GFR 49.2 ML/MIN Glucose 591 H* (74-106) mg/dL Lactic Acid 2.9 H (0.4-2.0) Calcium 9.9 (8.4-10.2) mg/dL Total Bilirubin 0.70 (0.2-1.3) mg/dL AST 37 H (14-36) U/L ALT 31 (0-35) U/L Alkaline Phosphatase 154 H (38-126) U/L Serum Total Protein 8.0 (6.3-8.2) g/dL Albumin 4.5 (3.5-5.0) g/dL Urine Color YELLOW (YELLOW) Urine Appearance CLOUDY (CLEAR) Urine pH 6.0 (5-6) Ur Specific [place] 1.017 (1.005-1.025) Urine Protein NEGATIVE (Negative) Urine Ketones SMALL (NEGATIVE) Urine Blood SMALL (0-5) Tato/ul Urine Nitrite POSITIVE (NEGATIVE) Urine Bilirubin NEGATIVE (NEGATIVE) Urine Urobilinogen NEGATIVE (0-1) mg/dL Ur Leukocyte Esterase SMALL (NEGATIVE) Urine WBC (Auto) 51-100 (0-5) /HPF Urine RBC (Auto) 0-2 (0-2) /HPF U Epithel Cells (Auto) RARE (FEW) /HPF Urine Bacteria (Auto) FEW (NEGATIVE) /HPF Urine Mucus (Auto) SLIGHT (NEGATIVE) /HPF Urine Culture Reflexed YES (NO) Urine Glucose >=500 (NEGATIVE) mg/dL 06/19/19 Range/Units 19:15 WBC 8.3 (4.0-10.5) K/mm3 RBC 4.40 (4.1-5.4) M/mm3 Hgb 13.4 (12.0-16.0) gm/dl Hct 41.9 (35-47) % MCV 95.2 (78-100) fl MCH 30.5 (26-32) pg MCHC 32.0 (32-36) g/dl RDW 13.6 (11.5-14.0) % Plt Count 399 (150-450) K/mm3 MPV 9.2 (7.5-11.0) fl Gran % 70.7 H (36.0-66.0) % Eos # (Auto) 0.11 (0-0.5) Absolute Lymphs (auto) 1.70 (1.0-4.6) Absolute Monos (auto) 0.54 (0.0-1.3) Lymphocytes % 20.4 L (24.0-44.0) % Monocytes % 6.5 (0.0-12.0) % Eosinophils % 1.3 (0.00-5.0) % Basophils % 1.1 (0.0-0.4) % Absolute Granulocytes 5.89 (1.4-6.9) Basophils # 0.09 (0-0.4) Sodium (137-145) mmol/L Potassium (3.5-5.1) mmol/L Chloride (98-107) mmol/L Carbon Dioxide (22-30) mmol/L Anion Gap (5-15) MEQ/L BUN (7-17) mg/dL Creatinine (0.52-1.04) mg/dL Estimated GFR ML/MIN Glucose (74-106) mg/dL Lactic Acid (0.4-2.0) Calcium (8.4-10.2) mg/dL Total Bilirubin (0.2-1.3) mg/dL AST (14-36) U/L ALT (0-35) U/L Alkaline Phosphatase (38-126) U/L Serum Total Protein (6.3-8.2) g/dL Albumin (3.5-5.0) g/dL Urine Color (YELLOW) Urine Appearance (CLEAR) Urine pH (5-6) Ur Specific [place] (1.005-1.025) Urine Protein (Negative) Urine Ketones (NEGATIVE) Urine Blood (0-5) Tato/ul Urine Nitrite (NEGATIVE) Urine Bilirubin (NEGATIVE) Urine Urobilinogen (0-1) mg/dL Ur Leukocyte Esterase (NEGATIVE) Urine WBC (Auto) (0-5) /HPF Urine RBC (Auto) (0-2) /HPF U Epithel Cells (Auto) (FEW) /HPF Urine Bacteria (Auto) (NEGATIVE) /HPF Urine Mucus (Auto) (NEGATIVE) /HPF Urine Culture Reflexed (NO) Urine Glucose (NEGATIVE) mg/dL - Progress Progress: improved, re-examined Progress Note: 06/19/19 21:28 Patient's repeat blood sugar is 256. 06/19/19 21:[address] Morin. This is the patient's primary care physician. I reviewed the patient's history, condition, lab reports and response to treatment. Patient is to be placed in observation and will give IV hydration, IV antibiotics and monitoring of blood glucose. Discussed with : Gisela Counseled pt/family regarding: lab results, diagnosis, need for follow-up - Departure Departure Disposition: Home Clinical Impression: Diabetic ketoacidosis, Urinary tract infection Condition: Stable Critical Care Time: Yes Critical Care Time(excluding separately billable procedures): Critical 30-74 mins Referrals: LYUDMILA ARIAS MD [Primary Care Provider] -
[2019-06-19] MEDS ORDERED: Phenergan 25 MG INJ IM ONE (18:39)
[2019-06-19] MEDS ORDERED: Sodium Chloride 0.9% 1000 ML 1,000 ML IV STA ×2 (18:39→20:30)
[2019-06-19] MEDS ORDERED: Phenergan 25 MG INJ ONE (18:49)
[2019-06-19] MEDS ORDERED: Sodium Chloride 0.9% 1000 ML 1,000 ML ONE ×2 (18:49→20:36)
[2019-06-19 19:33] LABS: Absolute Neutrophil Ct (ANC) 5.89 (1.4-6.9); BASOPHIL % 1.1 % (0.0-0.4); Basophil (Absolute #) 0.09 (0-0.4); Eosinophil % 1.3 % (0.00-5.0); Eosinophil (Absolute #) 0.11 (0-0.5); Hematocrit 41.9 % (35-47); Hemoglobin 13.4 gm/dl (12.0-16.0); Lymphocytes % 20.4 % (24.0-44.0); Mean Cell Volume 95.2 fl (78-100); Mean Corpuscular Hemoglobin 30.5 pg (26-32); Mean Platelet Volume 9.2 fl (7.5-11.0); Monocyte (Absolute #) 0.54 (0.0-1.3); Monocytes % 6.5 % (0.0-12.0); Neutrophil % 70.7 % (36.0-66.0); Platelet Count 399 K/mm3 (150-450); Red Cell Distribution Width 13.6 % (11.5-14.0); White Blood Count 8.3 K/mm3 (4.0-10.5)
[2019-06-19 19:43] LABS: ALBUMIN 4.5 g/dL (3.5-5.0); ANION GAP 23.3 MEQ/L (5-15); BILIRUBIN,TOTAL 0.7 mg/dL (0.2-1.3); Calcium 9.9 mg/dL (8.4-10.2); Creatinine 1 1.2 mg/dL (0.52-1.04); Potassium 4.4 mmol/L (3.5-5.1)
[2019-06-19 20:03] LABS: Appearance CLOUDY (CLEAR); Bacteria FEW /HPF (NEGATIVE); Bilirubin NEGATIVE (NEGATIVE); Blood SMALL Ery/ul (0-5); Epithelial Cells RARE /HPF (FEW); Glucose >=500 mg/dL (NEGATIVE); Ketones SMALL (NEGATIVE); Leukocyte Esterase SMALL (NEGATIVE); Mucus SLIGHT /HPF (NEGATIVE); Nitrite POSITIVE (NEGATIVE); Protein,Urine Dip NEGATIVE (Negative); RBC 0-2 /HPF (0-2); Specific Gravity 1.017 (1.005-1.025); Urobilinogen NEGATIVE mg/dL (0-1); WBC 51-100 /HPF (0-5)
[2019-06-19] MEDS ORDERED: HUMULIN R IV STA (20:17)
[2019-06-19] MEDS ORDERED: HUMULIN R ONE (20:27)
[2019-06-19] MEDS ORDERED: ROCEPHIN 1 Gm-D5w 50 ml Bag** 1 G/50 ML IVPB IV STA (20:31)
[2019-06-19] MEDS ORDERED: ROCEPHIN 1 Gm-D5w 50 ml Bag** 1 G/50 ML IVPB IV ONE (20:36)
[2019-06-19] MEDS ORDERED: TYLENOL 325 MG PO PRN (23:31)
[2019-06-19] MEDS ORDERED: Phenergan 25 MG INJ IV PRN (23:31)
[2019-06-19] MEDS ORDERED: NovoLIN R SQ PRN (23:31)
[2019-06-20] MEDS: Sodium Chloride 0.9% 1000 ML 1,000 ML IV SCH ×3 (00:29→19:32)
[2019-06-20] MEDS: Cyclobenzaprine 10 MG PO SCH ×5 (01:24→21:04)
[2019-06-20] MEDS ORDERED: HUMULIN R ONE ×2 (03:56→05:52)
[2019-06-20 04:34] LABS: Absolute Neutrophil Ct (ANC) 5.31 (1.4-6.9); BASOPHIL % 0.9 % (0.0-0.4); Basophil (Absolute #) 0.09 (0-0.4); Eosinophil % 2.7 % (0.00-5.0); Eosinophil (Absolute #) 0.26 (0-0.5); Hematocrit 37.7 % (35-47); Hemoglobin 12.1 gm/dl (12.0-16.0); Lymphocyte (Absolute #) 3.27 (1.0-4.6); Mean Cell Volume 95.4 fl (78-100); Mean Corpuscular Hemoglobin 30.6 pg (26-32); Mean Corpuscular Hgb Concent. 32.1 g/dl (32-36); Mean Platelet Volume 9.1 fl (7.5-11.0); Monocytes % 7.3 % (0.0-12.0); Neutrophil % 55.1 % (36.0-66.0); Platelet Count 344 K/mm3 (150-450); Red Blood Count 3.95 M/mm3 (4.1-5.4); Red Cell Distribution Width 13.8 % (11.5-14.0); White Blood Count 9.6 K/mm3 (4.0-10.5)
[2019-06-20 04:47] LABS: ANION GAP 23.3 MEQ/L (5-15); BLOOD UREA NITROGEN 27 mg/dL (7-17); CHLORIDE 105 mmol/L (98-107); Calcium 8.8 mg/dL (8.4-10.2); Creatinine 1 0.91 mg/dL (0.52-1.04); SODIUM 133 mmol/L (137-145)
[2019-06-20 04:50] LABS: Glucose 539 mg/dL (74-106)
[2019-06-20 04:51] LABS: Carbon Dioxide 10 mmol/L (22-30)
[2019-06-20 04:52] LABS: Potassium 5.7 mmol/L (3.5-5.1)
[2019-06-20] MEDS ORDERED: Sodium Chloride 0.9% 100 ML IVPB 100 ML IV ONE (05:53)
[2019-06-20] MEDS: NOVOLIN R INSULIN (FOR DRIPS)** 100 UNITS in Sodium Chloride 0.9% 100 ML IVPB 100 ML IV PRN ×2 (06:16→07:31)
[2019-06-20 11:35] LABS: ALBUMIN 3.2 g/dL (3.5-5.0); ALKALINE PHOSPHATASE 123 U/L (38-126); ANION GAP 9.5 MEQ/L (5-15); BLOOD UREA NITROGEN 21 mg/dL (7-17); CHLORIDE 110 mmol/L (98-107); Calcium 8.8 mg/dL (8.4-10.2); Carbon Dioxide 21 mmol/L (22-30); Creatinine 1 0.68 mg/dL (0.52-1.04); Glucose 251 mg/dL (74-106); Potassium 4.3 mmol/L (3.5-5.1); SGOT/AST 40 U/L (14-36); SGPT/ALT 23 U/L (0-35); SODIUM 136 mmol/L (137-145); Total Protein 6.1 g/dL (6.3-8.2)
--- NOTE | 2019-06-20 12:56 | PCM.HP ---
History of Present Illness - Chief Complaint Chief Complaint: nausea, vomiting for 2-3 days History of Present Illness: is a 58-year-old diabetic white female who presents with primary complaint of nausea. Patient has noticed in the last few days her blood sugar has been higher than usual. Patient has a new insulin pump unit. She is unsure if it is working properly. Prior to arrival, the patient's blood sugar was reading out as over 600. She is given herself several units more than typical for her and yet her blood sugar still remains high. Patient has a history of insulin-dependent diabetes, COPD, chronic renal disease and has had diabetic ketoacidosis episodes in the past. Patient denies shortness of breath , patient denies chest pain, patient denies abdominal pain at this time. - Review of Systems Constitutional: No Fever, No Chills Eyes: No Symptoms Ears, Nose, & Throat: No Symptoms Respiratory: No Cough, No Short Of Breath Cardiac: No Chest Pain, No Edema, No Syncope Abdominal/Gastrointestinal: No Abdominal Pain, No Nausea, No Vomiting, No Diarrhea Genitourinary Symptoms: No Dysuria Musculoskeletal: No Back Pain, No Neck Pain Skin: No Rash Neurological: No Dizziness, No Focal Weakness, No Sensory Changes Psychological: No Symptoms Endocrine: No Symptoms Hematologic/Lymphatic: No Symptoms Immunological/Allergic: No Symptoms Medications & Allergies Home Medications: Home Medication List Insulin Lispro [Humalog] 1 unit SQ UD 11/14/16 [History Confirmed 06/19/19] Metoclopramide HCl [Reglan] 10 mg PO TID 11/14/16 [History Confirmed 06/19/19] PANTOPRAZOLE 40 mg Tablet [Protonix 40MG Tablet] 40 mg PO DAILY 11/14/16 [ History Confirmed 06/19/19] Promethazine HCl 25 mg [Phenergan 25 mg] 25 mg PO Q6HPRN PRN 11/14/16 [ History Confirmed 06/19/19] Albuterol Sulfate [Albuterol Sulfate Hfa] 2 puff IH Q4-6HPRN PRN #1 [id number] 07/18/17 [Rx Confirmed 06/19/19] Cyclobenzaprine HCl 10 mg [Cyclobenzaprine 10 MG] 10 mg PO QID 02/13/19 [ History Confirmed 06/19/19] Allergies/Adverse Reactions: Allergies Allergy/AdvReac Type Severity Reaction Status Date / Time orphenadrine citrate Allergy Intermediate Verified 02/13/19 11:13 [From Norflex] hydrocodone bitartrate AdvReac Mild Verified 02/13/19 11:13 [From [place]] levofloxacin [From Levaquin] AdvReac Mild Nausea and Verified 02/13/19 11:13 Vomiting - Past Medical History Past Medical History: Yes Neurological History: No Pertinent History ENT History: No Pertinent History Cardiac History: Coronary Artery Disease Respiratory History: COPD Endocrine Medical History: Diabetes Type I Musculoskelatal History: Degenerative Disk Disease, Other GI Medical History: GERD History: Renal Disease Pyscho-Social History: Anxiety, Depression Reproductive Disorders: No Pertinent History Comment: HAS INSULIN PUMP. cardiac STENT PLACEMENT X 2, back problem, renal failure - Female History Are you now?: No - Past Surgical History Past Surgical History: Yes Neuro Surgical History: No Pertinent History Cardiac History: Cardiac Catheterization, Cardiac Stent Respiratory Surgery: No Pertinent History GI Surgical History: Cholecystectomy Genitourinary Surgical Hx: No Pertinent History Musculskeletal Surgical Hx: Other Female Surgical History: Tubal Ligation Other Surgical History: BUNONECTOMY. BACK SURGERY X2 - Social History Smoking Status: Current every day smoker How long have you smoked: 40 years Exposure to second hand smoke: No Alcohol: None Drug Use: none Significant Family History: heart disease, diabetes, hypertension - Physical Exam Vital Signs: Vital Signs - 24 hr Temp Pulse Resp BP Pulse Ox 06/20/19 12:00 98.1 F 95 H 18 129/74 97 06/20/19 07:19 98.5 F 100 H 19 126/70 98 06/20/19 04:07 98.3 F 103 H 18 120/56 98 06/20/19 00:33 98.1 F 100 H 18 131/60 98 06/19/19 23:31 98 06/19/19 22:40 96 H 22 134/70 98 06/19/19 21:50 99 H 18 131/72 98 06/19/19 21:05 102 H 129/69 99 06/19/19 18:27 97.6 F 111 H 18 127/69 100 General Appearance: no apparent distress, alert Neurologic Exam: alert, oriented x 3, cooperative, normal mood/affect, nml cerebellar function, nml station & gait, sensation nml, No motor deficits Eye Exam: PERRL/EOMI, eyes nml inspection Ears, Nose, Throat Exam: normal ENT inspection, TMs normal, pharynx normal, moist mucous membranes Neck Exam: normal inspection, non-tender, supple, full range of motion Respiratory Exam: normal breath sounds, lungs clear, No respiratory distress Cardiovascular Exam: regular rate/rhythm, normal heart sounds, normal peripheral pulses Gastrointestinal/Abdomen Exam: soft, normal bowel sounds, No tenderness, No mass Back Exam: normal inspection, normal range of motion, No CVA tenderness, No vertebral tenderness Extremity Exam: normal inspection, normal range of motion, pelvis stable Skin Exam: normal color, warm, dry, No rash Lymphatic Exam: No adenopathy Results - Labs Lab/Micro Results: Accuchecks Accucheck Value: 430 Lab Results-Last 24 Hours 06/19/19 06/19/19 06/19/19 Range/Units 19:15 19:15 19:58 WBC 8.3 (4.0-10.5) K/mm3 RBC 4.40 (4.1-5.4) M/mm3 Hgb 13.4 (12.0-16.0) gm/dl Hct 41.9 (35-47) % MCV 95.2 (78-100) fl MCH 30.5 (26-32) pg MCHC 32.0 (32-36) g/dl RDW 13.6 (11.5-14.0) % Plt Count 399 (150-450) K/mm3 MPV 9.2 (7.5-11.0) fl Gran % 70.7 H (36.0-66.0) % Eos # (Auto) 0.11 (0-0.5) Absolute Lymphs (auto) 1.70 (1.0-4.6) Absolute Monos (auto) 0.54 (0.0-1.3) Lymphocytes % 20.4 L (24.0-44.0) % Monocytes % 6.5 (0.0-12.0) % Eosinophils % 1.3 (0.00-5.0) % Basophils % 1.1 (0.0-0.4) % Absolute Granulocytes 5.89 (1.4-6.9) Basophils # 0.09 (0-0.4) Sodium 134 L (137-145) mmol/L Potassium 4.4 (3.5-5.1) mmol/L Chloride 98 (98-107) mmol/L Carbon Dioxide 16 L* (22-30) mmol/L Anion Gap 23.3 H (5-15) MEQ/L BUN 39 H (7-17) mg/dL Creatinine 1.20 H (0.52-1.04) mg/dL Estimated GFR 49.2 ML/MIN Glucose 591 H* (74-106) mg/dL Lactic Acid (0.4-2.0) Calcium 9.9 (8.4-10.2) mg/dL Total Bilirubin 0.70 (0.2-1.3) mg/dL AST 37 H (14-36) U/L ALT 31 (0-35) U/L Alkaline Phosphatase 154 H (38-126) U/L Serum Total Protein 8.0 (6.3-8.2) g/dL Albumin 4.5 (3.5-5.0) g/dL Urine Color YELLOW (YELLOW) Urine Appearance CLOUDY (CLEAR) Urine pH 6.0 (5-6) Ur Specific [place] 1.017 (1.005-1.025) Urine Protein NEGATIVE (Negative) Urine Ketones SMALL (NEGATIVE) Urine Blood SMALL (0-5) Tato/ul Urine Nitrite POSITIVE (NEGATIVE) Urine Bilirubin NEGATIVE (NEGATIVE) Urine Urobilinogen NEGATIVE (0-1) mg/dL Ur Leukocyte Esterase SMALL (NEGATIVE) Urine WBC (Auto) 51-100 (0-5) /HPF Urine RBC (Auto) 0-2 (0-2) /HPF U Epithel Cells (Auto) RARE (FEW) /HPF Urine Bacteria (Auto) FEW (NEGATIVE) /HPF Urine Mucus (Auto) SLIGHT (NEGATIVE) /HPF Urine Culture Reflexed YES (NO) Urine Glucose >=500 (NEGATIVE) mg/dL 06/19/19 06/19/19 06/20/19 Range/Units 20:29 22:33 04:22 WBC 9.6 (4.0-10.5) K/mm3 RBC 3.95 L (4.1-5.4) M/mm3 Hgb 12.1 (12.0-16.0) gm/dl Hct 37.7 (35-47) % MCV 95.4 (78-100) fl MCH 30.6 (26-32) pg MCHC 32.1 (32-36) g/dl RDW 13.8 (11.5-14.0) % Plt Count 344 (150-450) K/mm3 MPV 9.1 (7.5-11.0) fl Gran % 55.1 (36.0-66.0) % Eos # (Auto) 0.26 (0-0.5) Absolute Lymphs (auto) 3.27 (1.0-4.6) Absolute Monos (auto) 0.70 (0.0-1.3) Lymphocytes % 34.0 (24.0-44.0) % Monocytes % 7.3 (0.0-12.0) % Eosinophils % 2.7 (0.00-5.0) % Basophils % 0.9 (0.0-0.4) % Absolute Granulocytes 5.31 (1.4-6.9) Basophils # 0.09 (0-0.4) Sodium (137-145) mmol/L Potassium (3.5-5.1) mmol/L Chloride (98-107) mmol/L Carbon Dioxide (22-30) mmol/L Anion Gap (5-15) MEQ/L BUN (7-17) mg/dL Creatinine (0.52-1.04) mg/dL Estimated GFR ML/MIN Glucose (74-106) mg/dL Lactic Acid 2.9 H 1.4 (0.4-2.0) Calcium (8.4-10.2) mg/dL Total Bilirubin (0.2-1.3) mg/dL AST (14-36) U/L ALT (0-35) U/L Alkaline Phosphatase (38-126) U/L Serum Total Protein (6.3-8.2) g/dL Albumin (3.5-5.0) g/dL Urine Color (YELLOW) Urine Appearance (CLEAR) Urine pH (5-6) Ur Specific [place] (1.005-1.025) Urine Protein (Negative) Urine Ketones (NEGATIVE) Urine Blood (0-5) Tato/ul Urine Nitrite (NEGATIVE) Urine Bilirubin (NEGATIVE) Urine Urobilinogen (0-1) mg/dL Ur Leukocyte Esterase (NEGATIVE) Urine WBC (Auto) (0-5) /HPF Urine RBC (Auto) (0-2) /HPF U Epithel Cells (Auto) (FEW) /HPF Urine Bacteria (Auto) (NEGATIVE) /HPF Urine Mucus (Auto) (NEGATIVE) /HPF Urine Culture Reflexed (NO) Urine Glucose (NEGATIVE) mg/dL 06/20/19 06/20/19 06/20/19 Range/Units 04:22 07:00 08:05 WBC (4.0-10.5) K/mm3 RBC (4.1-5.4) M/mm3 Hgb (12.0-16.0) gm/dl Hct (35-47) % MCV (78-100) fl MCH (26-32) pg MCHC (32-36) g/dl RDW (11.5-14.0) % Plt Count (150-450) K/mm3 MPV (7.5-11.0) fl Gran % (36.0-66.0) % Eos # (Auto) (0-0.5) Absolute Lymphs (auto) (1.0-4.6) Absolute Monos (auto) (0.0-1.3) Lymphocytes % (24.0-44.0) % Monocytes % (0.0-12.0) % Eosinophils % (0.00-5.0) % Basophils % (0.0-0.4) % Absolute Granulocytes (1.4-6.9) Basophils # (0-0.4) Sodium 133 L (137-145) mmol/L Potassium 5.7 H D (3.5-5.1) mmol/L Chloride 105 (98-107) mmol/L Carbon Dioxide 10 L* (22-30) mmol/L Anion Gap 23.3 H (5-15) MEQ/L BUN 27 H (7-17) mg/dL Creatinine 0.91 (0.52-1.04) mg/dL Estimated GFR > 60.0 ML/MIN Glucose 539 H* 283 H 188 H (74-106) mg/dL Lactic Acid (0.4-2.0) Calcium 8.8 (8.4-10.2) mg/dL Total Bilirubin (0.2-1.3) mg/dL AST (14-36) U/L ALT (0-35) U/L Alkaline Phosphatase (38-126) U/L Serum Total Protein (6.3-8.2) g/dL Albumin (3.5-5.0) g/dL Urine Color (YELLOW) Urine Appearance (CLEAR) Urine pH (5-6) Ur Specific [place] (1.005-1.025) Urine Protein (Negative) Urine Ketones (NEGATIVE) Urine Blood (0-5) Tato/ul Urine Nitrite (NEGATIVE) Urine Bilirubin (NEGATIVE) Urine Urobilinogen (0-1) mg/dL Ur Leukocyte Esterase (NEGATIVE) Urine WBC (Auto) (0-5) /HPF Urine RBC (Auto) (0-2) /HPF U Epithel Cells (Auto) (FEW) /HPF Urine Bacteria (Auto) (NEGATIVE) /HPF Urine Mucus (Auto) (NEGATIVE) /HPF Urine Culture Reflexed (NO) Urine Glucose (NEGATIVE) mg/dL 06/20/19 06/20/19 06/20/19 Range/Units 09:00 10:02 11:00 WBC (4.0-10.5) K/mm3 RBC (4.1-5.4) M/mm3 Hgb (12.0-16.0) gm/dl Hct (35-47) % MCV (78-100) fl MCH (26-32) pg MCHC (32-36) g/dl RDW (11.5-14.0) % Plt Count (150-450) K/mm3 MPV (7.5-11.0) fl Gran % (36.0-66.0) % Eos # (Auto) (0-0.5) Absolute Lymphs (auto) (1.0-4.6) Absolute Monos (auto) (0.0-1.3) Lymphocytes % (24.0-44.0) % Monocytes % (0.0-12.0) % Eosinophils % (0.00-5.0) % Basophils % (0.0-0.4) % Absolute Granulocytes (1.4-6.9) Basophils # (0-0.4) Sodium 136 L (137-145) mmol/L Potassium 4.3 D (3.5-5.1) mmol/L Chloride 110 H (98-107) mmol/L Carbon Dioxide 21 L (22-30) mmol/L Anion Gap 9.5 (5-15) MEQ/L BUN 21 H (7-17) mg/dL Creatinine 0.68 (0.52-1.04) mg/dL Estimated GFR > 60.0 ML/MIN Glucose 295 H 312 H 251 H (74-106) mg/dL Lactic Acid (0.4-2.0) Calcium 8.8 (8.4-10.2) mg/dL Total Bilirubin 0.50 (0.2-1.3) mg/dL AST 40 H (14-36) U/L ALT 23 (0-35) U/L Alkaline Phosphatase 123 (38-126) U/L Serum Total Protein 6.1 L (6.3-8.2) g/dL Albumin 3.2 L (3.5-5.0) g/dL Urine Color (YELLOW) Urine Appearance (CLEAR) Urine pH (5-6) Ur Specific [place] (1.005-1.025) Urine Protein (Negative) Urine Ketones (NEGATIVE) Urine Blood (0-5) Tato/ul Urine Nitrite (NEGATIVE) Urine Bilirubin (NEGATIVE) Urine Urobilinogen (0-1) mg/dL Ur Leukocyte Esterase (NEGATIVE) Urine WBC (Auto) (0-5) /HPF Urine RBC (Auto) (0-2) /HPF U Epithel Cells (Auto) (FEW) /HPF Urine Bacteria (Auto) (NEGATIVE) /HPF Urine Mucus (Auto) (NEGATIVE) /HPF Urine Culture Reflexed (NO) Urine Glucose (NEGATIVE) mg/dL 06/20/19 Range/Units 12:10 WBC (4.0-10.5) K/mm3 RBC (4.1-5.4) M/mm3 Hgb (12.0-16.0) gm/dl Hct (35-47) % MCV (78-100) fl MCH (26-32) pg MCHC (32-36) g/dl RDW (11.5-14.0) % Plt Count (150-450) K/mm3 MPV (7.5-11.0) fl Gran % (36.0-66.0) % Eos # (Auto) (0-0.5) Absolute Lymphs (auto) (1.0-4.6) Absolute Monos (auto) (0.0-1.3) Lymphocytes % (24.0-44.0) % Monocytes % (0.0-12.0) % Eosinophils % (0.00-5.0) % Basophils % (0.0-0.4) % Absolute Granulocytes (1.4-6.9) Basophils # (0-0.4) Sodium (137-145) mmol/L Potassium (3.5-5.1) mmol/L Chloride (98-107) mmol/L Carbon Dioxide (22-30) mmol/L Anion Gap (5-15) MEQ/L BUN (7-17) mg/dL Creatinine (0.52-1.04) mg/dL Estimated GFR ML/MIN Glucose 209 H (74-106) mg/dL Lactic Acid (0.4-2.0) Calcium (8.4-10.2) mg/dL Total Bilirubin (0.2-1.3) mg/dL AST (14-36) U/L ALT (0-35) U/L Alkaline Phosphatase (38-126) U/L Serum Total Protein (6.3-8.2) g/dL Albumin (3.5-5.0) g/dL Urine Color (YELLOW) Urine Appearance (CLEAR) Urine pH (5-6) Ur Specific [place] (1.005-1.025) Urine Protein (Negative) Urine Ketones (NEGATIVE) Urine Blood (0-5) Tato/ul Urine Nitrite (NEGATIVE) Urine Bilirubin (NEGATIVE) Urine Urobilinogen (0-1) mg/dL Ur Leukocyte Esterase (NEGATIVE) Urine WBC (Auto) (0-5) /HPF Urine RBC (Auto) (0-2) /HPF U Epithel Cells (Auto) (FEW) /HPF Urine Bacteria (Auto) (NEGATIVE) /HPF Urine Mucus (Auto) (NEGATIVE) /HPF Urine Culture Reflexed (NO) Urine Glucose (NEGATIVE) mg/dL Microbiology 06/19/19 19:58 Urine Culture - Preliminary Clean Catch Midstream GRAM NEGATIVE ID AND SENSITIVITY PENDING Accuchecks Accucheck Value: 430 Assessment/Plan (1) UTI (urinary tract infection) Current Visit: Yes Status: Acute Qualifiers: Urinary tract infection type: acute pyelonephritis Qualified Code(s): N10 - Acute pyelonephritis Code(s): N39.0 - URINARY TRACT INFECTION, SITE NOT SPECIFIED (2) DKA (diabetic ketoacidoses) Current Visit: Yes Status: Acute Qualifiers: Diabetes mellitus type: type 1 Diabetes mellitus complication detail: without coma Qualified Code(s): E10.10 - Type 1 diabetes mellitus with ketoacidosis without coma Code(s): E13.10 - OTH DIABETES MELLITUS WITH KETOACIDOSIS WITHOUT COMA (3) UTI (urinary tract infection) Current Visit: Yes Status: Acute Qualifiers: Urinary tract infection type: acute pyelonephritis Code(s): N39.0 - URINARY TRACT INFECTION, SITE NOT SPECIFIED (4) COPD (chronic obstructive pulmonary disease) Current Visit: No Status: Chronic Qualifiers: COPD type: unspecified COPD Qualified Code(s): J44.9 - Chronic obstructive pulmonary disease, unspecified
[2019-06-20] MEDS ORDERED: HUMALOG SQ PRN (13:01)
[2019-06-20] MEDS ORDERED: Ventolin Hfa MDI IH PRN (13:58)
[2019-06-20] MEDS ORDERED: PHENERGAN 25 MG PO PRN (13:58)
[2019-06-20] MEDS ORDERED: NON-FORMULARY ITEM (Insulin Lispro 1 UNIT) SQ SCH (14:00)
[2019-06-20] MEDS ORDERED: VENTOLIN COMMON CANISTER IH PRN (14:04)
[2019-06-20] MEDS: NovoLOG Insulin SQ PRN ×2 (17:11→21:04)
[2019-06-20] MEDS: Protonix 40MG Tablet PO SCH (17:12)
[2019-06-20] MEDS: Reglan 10 MG PO SCH ×2 (17:13→21:04)
[2019-06-20] MEDS ORDERED: ROCEPHIN 1 Gm-D5w 50 ml Bag** 1 G/50 ML IVPB IV SCH (22:00)
[2019-06-21 00:01] VITALS: O2SAT 97
[2019-06-21] MEDS: Sodium Chloride 0.9% 1000 ML 1,000 ML IV SCH (04:00)
[2019-06-21 05:19] LABS: Hemoglobin 11.3 gm/dl (12.0-16.0); Mean Cell Volume 93.8 fl (78-100); Mean Corpuscular Hemoglobin 30.3 pg (26-32); Mean Corpuscular Hgb Concent. 32.3 g/dl (32-36); Mean Platelet Volume 8.9 fl (7.5-11.0); Platelet Count 349 K/mm3 (150-450); Red Blood Count 3.73 M/mm3 (4.1-5.4); Red Cell Distribution Width 13.5 % (11.5-14.0); White Blood Count 8.3 K/mm3 (4.0-10.5)
[2019-06-21 05:23] LABS: ANION GAP 7.6 MEQ/L (5-15); BLOOD UREA NITROGEN 13 mg/dL (7-17); CHLORIDE 108 mmol/L (98-107); Calcium 8.4 mg/dL (8.4-10.2); Carbon Dioxide 24 mmol/L (22-30); Creatinine 1 0.67 mg/dL (0.52-1.04); Glucose 370 mg/dL (74-106); Potassium 4.3 mmol/L (3.5-5.1); SODIUM 135 mmol/L (137-145)
[2019-06-21] MEDS: NovoLOG Insulin SQ PRN (05:38)
[2019-06-21] MEDS ORDERED: Invanz 1 GM*** 1 G in Sodium Chloride 100ML MINI-BAG PLUS 100 ML IV SCH (09:15)
[2019-06-21] MEDS: Reglan 10 MG PO SCH (09:41)
[2019-06-21] MEDS: Protonix 40MG Tablet PO SCH (09:41)
[2019-06-21] MEDS: Cyclobenzaprine 10 MG PO SCH (09:41)
--- NOTE | 2019-06-21 10:12 | PCM.DS ---
Discharge Summary Date of Admission: 06/19/19 23:15 Admitting Physician: LYUDMILA ARIAS Primary Care Provider: LYUDMILA ARIAS Allergies Allergies orphenadrine citrate [From Norflex] Allergy (Intermediate, Verified 02/13/19 11: 13) severe vomiting hydrocodone bitartrate [From Girdler] Adverse Reaction (Mild, Verified 02/13/19 11 :13) nausea vomiting levofloxacin [From Levaquin] Adverse Reaction (Mild, Verified 02/13/19 11:13) Nausea and Vomiting Hospital Summary - Hospital Course Hospital Course: Chief Complaint Diagnosis nausea, vomiting for 2-3 days Allergies Allergy/AdvReac Type Severity Reaction Status Date / Time orphenadrine citrate Allergy Intermediate Verified 02/13/19 11:13 [From Norflex] hydrocodone bitartrate AdvReac Mild Verified 02/13/19 11:13 [From Girdler] levofloxacin [From Levaquin] AdvReac Mild Nausea and Verified 02/13/19 11:13 Vomiting Vital Signs (Last 24 hours) Temp Pulse Resp BP Pulse Ox 06/21/19 08:00 98.4 F 88 17 122/68 06/21/19 04:00 98.4 F 88 17 122/68 06/21/19 00:00 98.2 F 89 18 103/74 97 06/20/19 20:18 97 H 20 96 06/20/19 20:14 98.5 F 97 H 21 133/69 98 06/20/19 17:29 92 H 98 H 06/20/19 16:57 98.1 F 92 H 18 138/88 98 06/20/19 16:00 98.1 F 95 H 18 129/74 97 06/20/19 12:00 98.1 F 95 H 18 129/74 97 Home Medications Medication Instructions Recorded Confirmed Last Taken Type Ertapenem Sodium 1 gm [Invanz 1 1 g IV DAILY #6 vial 06/21/19 Unknown Rx GM] Current Medications Generic Name Dose Route Start Last Admin Trade Name Freq PRN Reason Stop Dose Admin Acetaminophen 650 mg 06/19/19 23:31 Tylenol 325 Mg PO 07/19/19 23:30 Q4H PRN PRN PAIN, FEVER, HEADACHE Cyclobenzaprine HCl 10 mg 06/20/19 01:17 06/21/19 09:41 Cyclobenzaprine 10 Mg PO 07/20/19 01:16 10 mg QID NISSA Administration Sodium Chloride 1,000 mls @ 125 mls/hr 06/19/19 23:31 06/21/19 04:00 Sodium Chloride 0.9% 1000 Ml IV 07/19/19 23:30 125 mls/hr .Q8H NISSA Administration Ertapenem 1 g/ Sodium Chloride 100 mls @ 200 mls/hr 06/21/19 09:15 06/21/19 09:40 IV 07/21/19 09:14 200 mls/hr Q24H NISSA Administration Insulin Aspart 0 unit 06/20/19 17:15 06/21/19 05:38 Novolog Insulin SQ 07/20/19 17:14 15 unit UD PRN Administration Metoclopramide HCl 10 mg 06/20/19 15:00 06/21/19 09:41 Reglan 10 Mg PO 07/20/19 14:59 10 mg TID NISSA Administration Pantoprazole Sodium 40 mg 06/20/19 14:00 06/21/19 09:41 Protonix 40mg Tablet PO 07/20/19 13:59 40 mg DAILY NISSA Administration Promethazine HCl 25 mg 06/19/19 23:31 06/20/19 04:11 Phenergan 25 Mg Inj IV 07/19/19 23:30 25 mg Q6H PRN PRN Administration NAUSEA/VOMITING Promethazine HCl 25 mg 06/20/19 13:58 Phenergan 25 Mg PO 07/20/19 13:57 Q6HPRN PRN NAUSEA Discontinued Medications Generic Name Dose Route Start Last Admin Trade Name Freq PRN Reason Stop Dose Admin Albuterol Sulfate 2 puff 06/20/19 14:04 Ventolin Common Canister IH 07/20/19 14:03 Q4H PRN PRN SHORTNESS OF BREATH Sodium Chloride 1,000 mls @ 999 mls/hr 06/19/19 18:39 06/19/19 18:50 Sodium Chloride 0.9% 1000 Ml IV 06/19/19 19:39 999 mls/hr .Q1H1M STA Administration Sodium Chloride Confirm 06/19/19 18:49 Sodium Chloride 0.9% 1000 Ml Administered 06/19/19 18:50 Dose 1,000 mls @ ud .ROUTE .STK-MED ONE Sodium Chloride 1,000 mls @ 999 mls/hr 06/19/19 20:30 06/19/19 20:38 Sodium Chloride 0.9% 1000 Ml IV 06/19/19 21:30 999 mls/hr .Q1H1M STA Administration Ceftriaxone Sodium/Dextrose 1 g in 50 mls @ 100 mls/hr 06/19/19 20:31 20:39 Rocephin 1 Gm-D5w 50 Ml Bag IV 06/19/19 21:00 100 mls/hr STAT STA 100 mls/hr Administration Sodium Chloride Confirm 06/19/19 20:36 Sodium Chloride 0.9% 1000 Ml Administered 06/19/19 20:37 Dose 1,000 mls @ ud .ROUTE .STK-MED ONE Ceftriaxone Sodium/Dextrose Confirm 06/19/19 20:36 Rocephin 1 Gm-D5w 50 Ml Bag Administered 06/19/19 20:37 Dose 1 g in 50 mls @ ud IV .STK-MED ONE Ceftriaxone Sodium/Dextrose 1 g in 50 mls @ 100 mls/hr 06/20/19 22:00 21:04 Rocephin 1 Gm-D5w 50 Ml Bag IV 07/20/19 21:59 100 mls/hr Q24H22 NISSA Administration Sodium Chloride Confirm 06/20/19 05:53 Sodium Chloride 0.9% 100 Ml Ivpb Administered 06/20/19 05:54 Dose 100 mls @ ud IV .STK-MED ONE Insulin Human Regular 100 101 mls @ 2.02 mls/hr 06/20/19 05:50 06/20/19 10:05 units/ Sodium Chloride IV 07/20/19 05:49 1 units/hr .Q24H PRN 1.01 mls/hr DKA/HYPERGYCEMIA Titration Protocol 2 UNITS/HR Insulin Human Lispro 0 unit 06/20/19 13:01 Humalog SQ 07/20/19 13:00 UD PRN HYPERGLYCEMIA Insulin Human Regular 20 unit 06/19/19 20:17 06/19/19 20:27 Humulin R IV 06/19/19 20:18 20 unit STAT STA Administration Insulin Human Regular Confirm 06/19/19 20:27 Humulin R Administered 06/19/19 20:28 Dose 20 unit .ROUTE .STK-MED ONE Insulin Human Regular 0 unit 06/19/19 23:31 06/20/19 04:11 Novolin R SQ 07/19/19 23:30 17 unit UD PRN Administration ACCUCHEK Insulin Human Regular Confirm 06/20/19 03:56 Humulin R Administered 06/20/19 03:57 Dose 17 unit .ROUTE .STK-MED ONE Insulin Human Regular Confirm 06/20/19 05:52 Humulin R Administered 06/20/19 05:53 Dose 100 unit .ROUTE .STK-MED ONE Non-Formulary Medication 1 unit 06/20/19 14:00 Insulin Lispro SQ 07/20/19 13:59 UD NISSA Promethazine HCl 25 mg 06/19/19 18:39 06/19/19 18:50 Phenergan 25 Mg Inj IM 06/19/19 18:40 25 mg STAT ONE Administration Promethazine HCl Confirm 06/19/19 18:49 Phenergan 25 Mg Inj Administered 06/19/19 18:50 Dose 25 mg .ROUTE .STK-MED ONE Intake & Output (Last 24 hours) 06/18/19 06/19/19 06/20/19 06/21/19 11:59 11:59 11:59 11:59 Intake Total 1273 2422 Output Total 1400 1 Balance -127 2421 Weight 61.4 kg 62.7 kg Microbiology Results (Last 24 hours) 06/19/19 19:58 Clean Catch Midstream Urine Culture - Final Escherichia Coli Laboratory Results (Last 24 hours) 06/21/19 06/21/19 06/20/19 04:59 04:59 13:00 WBC 8.3 RBC 3.73 L Hgb 11.3 L Hct 35.0 MCV 93.8 MCH 30.3 MCHC 32.3 RDW 13.5 Plt Count 349 MPV 8.9 Sodium 135 L Potassium 4.3 Chloride 108 H Carbon Dioxide 24 Anion Gap 7.6 BUN 13 Creatinine 0.67 Estimated GFR > 60.0 Glucose 370 H Hemoglobin A1c 11.17 H Calcium 8.4 Total Bilirubin AST ALT Alkaline Phosphatase Serum Total Protein Albumin 06/20/19 06/20/19 06/20/19 13:00 12:10 11:00 WBC RBC Hgb Hct MCV MCH MCHC RDW Plt Count MPV Sodium 136 L Potassium 4.3 D Chloride 110 H Carbon Dioxide 21 L Anion Gap 9.5 BUN 21 H Creatinine 0.68 Estimated GFR > 60.0 Glucose 276 H 209 H 251 H Hemoglobin A1c Calcium 8.8 Total Bilirubin 0.50 AST 40 H ALT 23 Alkaline Phosphatase 123 Serum Total Protein 6.1 L Albumin 3.2 L 06/20/19 10:02 WBC RBC Hgb Hct MCV MCH MCHC RDW Plt Count MPV Sodium Potassium Chloride Carbon Dioxide Anion Gap BUN Creatinine Estimated GFR Glucose 312 H Hemoglobin A1c Calcium Total Bilirubin AST ALT Alkaline Phosphatase Serum Total Protein Albumin Orders (Last 24 hours) Category Date Time Status Accucheck ACHS Care 06/20/19 13:01 Active Isolation, Initiate & Maintain Q6H Care 06/21/19 08:11 Active Miscellaneous Nursing Order ROUTINE Care 06/20/19 13:02 Active Regular Diet Diet 06/20/19 Dinner Active Discharge Routine Discharge 06/21/19 Ordered Discharge/Telephone Order Routine Discharge 06/21/19 Active BMP Urgent Lab 06/21/19 04:59 Completed CBC Urgent Lab 06/21/19 04:59 Completed CMP Routine Lab 06/20/19 11:00 Completed Glucose Q1H Lab 06/20/19 10:02 Completed Glucose Q1H Lab 06/20/19 12:10 Completed Glucose Q1H Lab 06/20/19 13:00 Completed HEMOGLOBIN A1C Urgent Lab 06/20/19 13:00 Completed Albuterol Common Canister [Ventolin Common Canister* Med 06/20/19 14:04 Discontinued ] 2 puff IH Q4H PRN PRN Ceftriaxone 1 GM/50 ML PREMIX* [ROCEPHIN 1 Gm-D5w 50 ml Med 06/20/19 22:00 Discontinued Bag] 1 g in 50 ml IV Q24H22 Ertapenem Sodium 1 gm [Invanz 1 GM] 1 g Med 06/21/19 09:15 Active NaCl 0.9% 100 ml Mini-Bag Plus [Sodium Chloride 100ML MINI-BAG PLUS] 100 ml IV Q24H Insulin Aspart [NovoLOG Insulin] Med 06/20/19 17:15 Active 0 unit SQ UD PRN Insulin Lispro Med 06/20/19 14:00 Discontinued 1 unit SQ UD Insulin Lispro [Humalog] Med 06/20/19 13:01 Discontinued See Dose Instructions SQ UD PRN Metoclopramide HCl 10 mg [Reglan 10 MG] Med 06/20/19 15:00 Active 10 mg PO TID PANTOPRAZOLE 40 mg Tablet [Protonix 40MG Tablet] Med 06/20/19 14:00 Active 40 mg PO DAILY Promethazine HCl 25 mg [Phenergan 25 mg] Med 06/20/19 13:58 Active 25 mg PO Q6HPRN PRN Respiratory Therapy Assessment DAILY RT 06/20/19 17:29 Completed Patient Care Notes (Last 24 hours) 06/20/19 14:04 Nursing Note by Marifer Velasco Insulin gtt d/c, DR Arias did not want long acting insulin started. Accu check 237 at this time. Pt does not have insulin pump on and Dr Arias aware. Initialized on 06/20/19 14:04 - END OF NOTE 06/20/19 11:15 Nursing Note by Mariela Farmer Patient informed nurse that she has spoken to nurse at Dr Montelongo's office who works for [employer]. States they are to send her a device to be able to check insulin pump. Initialized on 06/20/19 11:15 - END OF NOTE 06/20/19 10:49 Nursing Note by Mariela Farmer BS 312 per lab. Continuing Insuling gtt at current rate 1u/hr. Initialized on 06/20/19 10:49 - END OF NOTE - Vitals & Intake/Output Vital Signs: Vital Signs Temperature 98.4 F 06/21/19 08:00 Pulse Rate 88 06/21/19 08:00 Respiratory Rate 17 06/21/19 08:00 Blood Pressure 122/68 06/21/19 08:00 O2 Sat by Pulse Oximetry 97 06/21/19 00:00 Intake & Output: Intake & Output 06/18/19 06/19/19 06/20/19 06/21/19 11:59 11:59 11:59 11:59 Intake Total 1273 2422 Output Total 1400 1 Balance -127 2421 Weight 61.4 kg 62.7 kg - Lab Result Diagrams: 06/21/19 04:59 06/21/19 04:59 Lab Results-Last 24 Hrs: Accuchecks Date 06/21/19 Date 06/20/19 Time 05:00 Time 16:30 Accucheck Value: 263 Accucheck Value: 470 Accucheck Value: 358 Lab Results-Last 24 Hours 06/20/19 06/20/19 06/20/19 Range/Units 10:02 11:00 12:10 WBC (4.0-10.5) K/mm3 RBC (4.1-5.4) M/mm3 Hgb (12.0-16.0) gm/dl Hct (35-47) % MCV (78-100) fl MCH (26-32) pg MCHC (32-36) g/dl RDW (11.5-14.0) % Plt Count (150-450) K/mm3 MPV (7.5-11.0) fl Sodium 136 L (137-145) mmol/L Potassium 4.3 D (3.5-5.1) mmol/L Chloride 110 H (98-107) mmol/L Carbon Dioxide 21 L (22-30) mmol/L Anion Gap 9.5 (5-15) MEQ/L BUN 21 H (7-17) mg/dL Creatinine 0.68 (0.52-1.04) mg/dL Estimated GFR > 60.0 ML/MIN Glucose 312 H 251 H 209 H (74-106) mg/dL Hemoglobin A1c (4.5-6.0) % Calcium 8.8 (8.4-10.2) mg/dL Total Bilirubin 0.50 (0.2-1.3) mg/dL AST 40 H (14-36) U/L ALT 23 (0-35) U/L Alkaline Phosphatase 123 (38-126) U/L Serum Total Protein 6.1 L (6.3-8.2) g/dL Albumin 3.2 L (3.5-5.0) g/dL 06/20/19 06/20/19 06/21/19 Range/Units 13:00 13:00 04:59 WBC 8.3 (4.0-10.5) K/mm3 RBC 3.73 L (4.1-5.4) M/mm3 Hgb 11.3 L (12.0-16.0) gm/dl Hct 35.0 (35-47) % MCV 93.8 (78-100) fl MCH 30.3 (26-32) pg MCHC 32.3 (32-36) g/dl RDW 13.5 (11.5-14.0) % Plt Count 349 (150-450) K/mm3 MPV 8.9 (7.5-11.0) fl Sodium (137-145) mmol/L Potassium (3.5-5.1) mmol/L Chloride (98-107) mmol/L Carbon Dioxide (22-30) mmol/L Anion Gap (5-15) MEQ/L BUN (7-17) mg/dL Creatinine (0.52-1.04) mg/dL Estimated GFR ML/MIN Glucose 276 H (74-106) mg/dL Hemoglobin A1c 11.17 H (4.5-6.0) % Calcium (8.4-10.2) mg/dL Total Bilirubin (0.2-1.3) mg/dL AST (14-36) U/L ALT (0-35) U/L Alkaline Phosphatase (38-126) U/L Serum Total Protein (6.3-8.2) g/dL Albumin (3.5-5.0) g/dL 06/21/19 Range/Units 04:59 WBC (4.0-10.5) K/mm3 RBC (4.1-5.4) M/mm3 Hgb (12.0-16.0) gm/dl Hct (35-47) % MCV (78-100) fl MCH (26-32) pg MCHC (32-36) g/dl RDW (11.5-14.0) % Plt Count (150-450) K/mm3 MPV (7.5-11.0) fl Sodium 135 L (137-145) mmol/L Potassium 4.3 (3.5-5.1) mmol/L Chloride 108 H (98-107) mmol/L Carbon Dioxide 24 (22-30) mmol/L Anion Gap 7.6 (5-15) MEQ/L BUN 13 (7-17) mg/dL Creatinine 0.67 (0.52-1.04) mg/dL Estimated GFR > 60.0 ML/MIN Glucose 370 H (74-106) mg/dL Hemoglobin A1c (4.5-6.0) % Calcium 8.4 (8.4-10.2) mg/dL Total Bilirubin (0.2-1.3) mg/dL AST (14-36) U/L ALT (0-35) U/L Alkaline Phosphatase (38-126) U/L Serum Total Protein (6.3-8.2) g/dL Albumin (3.5-5.0) g/dL Micro Results-Entire Visit: Microbiology 06/19/19 19:58 Urine Culture - Final Clean Catch Midstream Escherichia Coli Accuchecks Date 06/21/19 Date 06/20/19 Time 05:00 Time 16:30 Accucheck Value: 263 Accucheck Value: 470 Accucheck Value: 358 - Procedures and Test Procedures and Tests throughout Hospitalization: Therapy Orders & Screens 06/20/19 17:29 Respiratory Therapy Assessment DAILY Comment: Diagnosis: nausea, vomiting for 2-3 days Discharge Exam General Appearance: no apparent distress, alert Neurologic Exam: alert, oriented x 3, cooperative, normal mood/affect, nml cerebellar function, sensation nml, No motor deficits Eye Exam: PERRL, EOMI, eyes nml inspection Ears, Nose, Throat Exam: normal ENT inspection, pharynx normal, moist mucous membranes Neck Exam: normal inspection, non-tender, supple, full range of motion Respiratory Exam: normal breath sounds, lungs clear, No respiratory distress Cardiovascular Exam: regular rate/rhythm, normal heart sounds Gastrointestinal/Abdomen Exam: soft, No tenderness, No mass Pelvic Exam: deferred Rectal Exam: deferred Back Exam: normal inspection, normal range of motion, No CVA tenderness, No vertebral tenderness Extremity Exam: normal inspection, normal range of motion Skin Exam: normal color, warm, dry Final Diagnosis/Problem List - Final Discharge Diagnosis/Problem (1) UTI (urinary tract infection) Current Visit: Yes Status: Acute Assessment & Plan: ESLB e coli- sensitive to invense, d/c home with outpatient IV abx therapy Code(s): N39.0 - URINARY TRACT INFECTION, SITE NOT SPECIFIED (2) DKA (diabetic ketoacidoses) Current Visit: Yes Status: Acute Code(s): E13.10 - OTH DIABETES MELLITUS WITH KETOACIDOSIS WITHOUT COMA (3) UTI (urinary tract infection) Current Visit: Yes Status: Acute Code(s): N39.0 - URINARY TRACT INFECTION, SITE NOT SPECIFIED (4) COPD (chronic obstructive pulmonary disease) Current Visit: No Status: Chronic - Discharge Discharge Date: 06/21/19 Disposition: Home, Self-Care Condition: Stable Prescriptions: New Ertapenem Sodium 1 gm [Invanz 1 GM] 1 g IV DAILY #6 vial Continue Metoclopramide HCl [Reglan] 10 mg PO TID PANTOPRAZOLE 40 mg Tablet [Protonix 40MG Tablet] 40 mg PO DAILY Promethazine HCl 25 mg [Phenergan 25 mg] 25 mg PO Q6HPRN PRN PRN Reason: Nausea Insulin Lispro [Humalog] 1 unit SQ UD Albuterol Sulfate [Albuterol Sulfate Hfa] 2 puff IH Q4-6HPRN PRN #1 [id number].[id number] PRN Reason: cough or wheeze Cyclobenzaprine HCl 10 mg [Cyclobenzaprine 10 MG] 10 mg PO QID Instructions: Urinary Tract Infection, Adult (DC), Diabetic Ketoacidosis (DC), Extended-Spectrum Beta Lactamase Infection Additional Instructions: APPOINTMENT AT [facility] COME TO [facility] AT 8:45 AM STARTING ON 06/22/19. YOU MUST REGISTER FOR YOUR 9:00 AM APPOINTMENT IN THE INFUSION DEPARTMENT. YOU WILL COME DAILY FOR 6 MORE DAYS TO COMPLETE A TOTAL OF 7 DAY COURSE OF INVANZ 1GM I.V. DAILY. THIS INFUSION WILL TAKE APPROXIMATELY 30 MINUTES EACH DAY. YOU WILL ONLY NEED TO REGISTER THE FIRST DAY. Follow up with: LYUDMILA ARIAS MD [Primary Care Provider] - 06/28/19 2:30 pm
[2019-06-21 11:12] VITALS: BP 157/73; PULSE 96
== END 2019-06-21 11:00 | disposition home or self-care (01) ==
LOC: ED 18:15 → MED SURG 23:15 → ICU 06-20 05:58 → MED SURG 06-21 06:46
PROVIDERS: ADMIT General Practice; ATTEND General Practice
DX: N39.0 Urinary tract infection, site not specified (principal); E10.10 Type 1 diabetes mellitus with ketoacidosis without coma; E10.22 Type 1 diabetes mellitus with diabetic chronic kidney disease; J44.9 Chronic obstructive pulmonary disease, unspecified; I13.10 Hypertensive heart and chronic kidney disease without heart failure, with stage 1 through stage 4 chronic kidney disease, or unspecified chronic kidney disease; N18.9 Chronic kidney disease, unspecified; Z79.899 Other long term (current) drug therapy
CPT/HCPCS: 36415; 80048; 80053; 81001; 82947; 82962; 83036; 83605; 85025; 85027; 87077; 87086; 87186; 93041; 93268; 96360; 96361; 96365; 96372; 96374; 99291; G0378; 36000; 94760; 99285; J0696; J1335; J1815; J2550; A9270-GY

== ENCOUNTER 2019-07-08 09:30 | Emergency (ER) | payer OTHER ==
[2019-07-08] MEDS ORDERED: BABY ASPIRIN 81 MG CHEW PO ONE (09:57)
[2019-07-08] MEDS ORDERED: SUBLIMAZE 100 MCG/2 ML IV ONE (09:57)
[2019-07-08] MEDS ORDERED: Sodium Chloride 0.9% 1000 ML 1,000 ML IV SCH (10:00)
--- NOTE | 2019-07-08 10:27 | XRAY ---
Indication: Chest pain. Comparison: February 13, 2019. Portable chest remains hyperinflated and clear. Heart is not enlarged. Bony thorax intact. No new/acute findings. Impression: Continued nonacute hyperinflated chest.
[2019-07-08 10:43] LABS: Absolute Neutrophil Ct (ANC) 11.35 (1.4-6.9); BASOPHIL % 0.5 % (0.0-0.4); Basophil (Absolute #) 0.07 (0-0.4); Eosinophil % 4.2 % (0.00-5.0); Eosinophil (Absolute #) 0.61 (0-0.5); Hematocrit 38.9 % (35-47); Hemoglobin 12.6 gm/dl (12.0-16.0); Lymphocyte (Absolute #) 1.61 (1.0-4.6); Lymphocytes % 11.1 % (24.0-44.0); Mean Cell Volume 94.4 fl (78-100); Mean Corpuscular Hemoglobin 30.6 pg (26-32); Mean Corpuscular Hgb Concent. 32.4 g/dl (32-36); Mean Platelet Volume 8.9 fl (7.5-11.0); Monocyte (Absolute #) 0.87 (0.0-1.3); Neutrophil % 78.2 % (36.0-66.0); Platelet Count 331 K/mm3 (150-450); Red Blood Count 4.12 M/mm3 (4.1-5.4); Red Cell Distribution Width 14.6 % (11.5-14.0); White Blood Count 14.5 K/mm3 (4.0-10.5)
[2019-07-08] MEDS ORDERED: SUBLIMAZE 100 MCG/2 ML ONE (10:43)
[2019-07-08] MEDS ORDERED: BABY ASPIRIN 81 MG CHEW ONE (10:43)
[2019-07-08] MEDS ORDERED: Sodium Chloride 0.9% 1000 ML 1,000 ML ONE (10:44)
[2019-07-08 10:52] LABS: INR 0.97 (0.8-3.0); PROTIME 10.9 SECONDS (9.95-12.35)
[2019-07-08 10:54] LABS: PTT 29.9 SECONDS (25.3-37.0)
[2019-07-08 11:04] LABS: ALBUMIN 4.1 g/dL (3.5-5.0); ALKALINE PHOSPHATASE 195 U/L (38-126); ANION GAP 11.3 MEQ/L (5-15); BLOOD UREA NITROGEN 23 mg/dL (7-17); CHLORIDE 105 mmol/L (98-107); Calcium 9.5 mg/dL (8.4-10.2); Carbon Dioxide 27 mmol/L (22-30); Creatinine 1 0.78 mg/dL (0.52-1.04); Glucose 253 mg/dL (74-106); NT PRO BNP 57.3 pg/mL (0-900); SGOT/AST 62 U/L (14-36); SGPT/ALT 61 U/L (0-35); SODIUM 139 mmol/L (137-145); Total Protein 7.4 g/dL (6.3-8.2)
--- NOTE | 2019-07-08 12:04 | XRAY ---
Indication: Chest pain, short of breath, and elevated d-dimer. Multiple contiguous axial images obtained through the chest using 80 cc Isovue 370 contrast and PE protocol. Comparison: February 13, 2019. There is good opacification of the pulmonary arteries to include the lobar and segmental branches. Again no pulmonary embolus. Heart is not enlarged. Aorta remains mildly arteriosclerotic without aneurysm/dissection. Stable left suprahilar calcified nodes. No pathologic mediastinal/hilar lymphadenopathy. Lungs again demonstrates diffuse pulmonary emphysema with new bilateral posterior subpleural cystic changes. Stable inferior left upper lobe calcified granuloma and scattered fibrosis/scarring again greatest in left upper lobe. No suspicious pulmonary mass, infiltrate, or effusion. Bony thorax intact. Limited upper abdomen again demonstrate a few splenic calcified granulomas. Impression: 1. Continued negative for pulmonary embolus. 2. Again diffuse pulmonary emphysema with scattered fibrosis/scarring and evidence for old granulomatous disease. 3. No acute cardiopulmonary abnormalities.
[2019-07-08 12:50] VITALS: O2SAT 98
--- NOTE | 2019-07-08 13:43 | ERPHSYRPT ---
- History of Present Illness Patient Subjective Stated Complaint: Chest pain Triage Nursing Assessment: Patient ambulated back to ED and transferred self to bed. Patient A+o x3. Patient's skin pink, warm and dry. Patient complains of a constant sharp pain in middle of chest while she was eating a piece of toast. Patient's lungs clear a/p elham. Heart tones audible. Physician History: Senthil is a 58-year-old white female with sharp substernal chest pain which started after eating toast she has a history of stents in the past and thought that this pain felt like some of her previous angina. Arrival she is pain-free. Nitro Today/Relief: no nitro taken today Aspirin Treatment Today: no aspirin today Allergies/Adverse Reactions: orphenadrine citrate [From Norflex] Allergy (Intermediate, Verified 07/08/19 10: 07) severe vomiting hydrocodone bitartrate [From [place]] Adverse Reaction (Mild, Verified 07/08/19 10 :07) nausea vomiting levofloxacin [From Levaquin] Adverse Reaction (Mild, Verified 07/08/19 10:07) Nausea and Vomiting Home Medications: Insulin Lispro [Humalog] 1 unit SQ UD 11/14/16 [History] Metoclopramide HCl [Reglan] 10 mg PO TID 11/14/16 [History] PANTOPRAZOLE 40 mg Tablet [Protonix 40MG Tablet] 40 mg PO DAILY 11/14/16 [ History] Promethazine HCl 25 mg [Phenergan 25 mg] 25 mg PO Q6HPRN PRN 11/14/16 [ History] Cyclobenzaprine HCl 10 mg [Cyclobenzaprine 10 MG] 10 mg PO QID 02/13/19 [ History] Atorvastatin Calcium [Lipitor 20MG Tablet] 20 mg PO DAILY 06/22/19 [History] Lisinopril 5 mg [Zestril 5 MG] 5 mg PO DAILY 06/22/19 [History] Hx Tetanus, Diphtheria Vaccination/Date Given: Yes Hx Influenza Vaccination/Date Given: Yes Hx Pneumococcal Vaccination/Date Given: Yes Immunizations Up to Date: Yes - Review of Systems Constitutional: No Fever, No Chills Eyes: No Symptoms Ears, Nose, & Throat: No Symptoms Respiratory: No Cough, No Dyspnea Cardiac: Chest Pain, No Edema, No Syncope Abdominal/Gastrointestinal: No Abdominal Pain, No Nausea, No Vomiting, No Diarrhea Genitourinary Symptoms: No Dysuria Musculoskeletal: No Back Pain, No Neck Pain Skin: No Rash Neurological: No Dizziness, No Focal Weakness, No Sensory Changes Psychological: No Symptoms Endocrine: No Symptoms All Other Systems: Reviewed and Negative - Past Medical History Pertinent Past Medical History: Yes Neurological History: No Pertinent History ENT History: No Pertinent History Cardiac History: Coronary Artery Disease, High Cholesterol, Hypertension Respiratory History: Bronchitis, COPD Endocrine Medical History: Diabetes Type I Musculoskeletal History: Degenerative Disk Disease, Other GI Medical History: GERD History: Renal Disease Psycho-Social History: Anxiety, Depression Female Reproductive Disorders: No Pertinent History Other Medical History: HAS INSULIN PUMP. cardiac STENT PLACEMENT X 2, back problem, renal failure - Past Surgical History Past Surgical History: Yes Neuro Surgical History: No Pertinent History Cardiac: Cardiac Catheterization, Cardiac Stent Respiratory: No Pertinent History Gastrointestinal: Cholecystectomy Genitourinary: No Pertinent History Musculoskeletal: Other Female Surgical History: Tubal Ligation Other Surgical History: BUNONECTOMY. BACK SURGERY X2 - Social History Smoking Status: Current every day smoker How long have you smoked: 30+years Exposure to second hand smoke: Yes Alcohol Use: None Drug Use: none Patient Lives Alone: No Significant Family History: heart disease, diabetes, hypertension - Female History Hx Last Menstrual Period: menopausal Hx Now: No - Nursing Vital Signs Nursing Vital Signs: Initial Vital Signs Temperature 98.0 F 07/08/19 10:08 Pulse Rate 99 H 07/08/19 10:08 Respiratory Rate 19 07/08/19 10:08 Blood Pressure 137/76 07/08/19 10:08 O2 Sat by Pulse Oximetry 98 07/08/19 10:08 Pain Scale Pain Intensity 0 - Physical Exam General Appearance: no apparent distress, alert Eye Exam: PERRL/EOMI, eyes nml inspection Ears, Nose, Throat Exam: normal ENT inspection, moist mucous membranes Neck Exam: normal inspection, non-tender, supple, full range of motion Respiratory Exam: normal breath sounds, lungs clear, No respiratory distress Cardiovascular Exam: regular rate/rhythm, normal heart sounds Gastrointestinal/Abdomen Exam: soft, No tenderness, No mass Back Exam: normal inspection, No CVA tenderness, No vertebral tenderness Extremity Exam: normal inspection, normal range of motion Neurologic Exam: alert, oriented x 3, cooperative, normal mood/affect, sensation nml, No motor deficits Skin Exam: normal color, warm, dry SpO2: 98 - Course Nursing assessment & vital signs reviewed: Yes EKG Interpreted by Me: RATE (102), Sinus Tach, NORMAL AXIS, NORMAL INTERVALS, NORMAL QRS, Non-specific ST Changes - Radiology Exams Chest X-ray Interpretation: Negative - CT Exams Chest CT Interpretation: Other (CTA of the chest negative for pulmonary emboli) Ordered Tests: Active Orders 24 hr Category Date Time Status Ingot Buggy Operator STAT Care 07/08/19 09:58 Active EKG-ER Only STAT Care 07/08/19 09:57 Active IV Insertion STAT Care 07/08/19 09:57 Active CHEST 1 VIEW (PORTABLE) Stat Exams 07/08/19 09:57 Completed CHEST WITH CONTRAST [CT] Stat Exams 07/08/19 11:00 Completed CBC W DIFF Stat Lab 07/08/19 10:36 Completed CMP Stat Lab 07/08/19 10:36 Completed D-DIMER QUANTITATIVE Stat Lab 07/08/19 10:36 Completed NT PRO BNP Stat Lab 07/08/19 10:36 Completed PROTIME WITH INR Stat Lab 07/08/19 10:36 Completed PTT Stat Lab 07/08/19 10:36 Completed TROPONIN Q3H Lab 07/08/19 10:36 Completed TROPONIN Q3H Lab 07/08/19 12:30 Completed TROPONIN Q3H Lab 07/08/19 16:00 Ordered TROPONIN Q3H Lab 07/08/19 19:00 Ordered TROPONIN Q3H Lab 07/08/19 22:00 Ordered Medication Summary Generic Name Dose Route Start Last Admin Trade Name Freq PRN Reason Stop Dose Admin Sodium Chloride 1,000 mls @ 50 mls/hr 07/08/19 10:00 07/08/19 10:46 Sodium Chloride 0.9% 1000 Ml IV 08/07/19 09:59 50 mls/hr .Q20H NISSA Administration Discontinued Medications Generic Name Dose Route Start Last Admin Trade Name Freq PRN Reason Stop Dose Admin Aspirin 324 mg 07/08/19 09:57 07/08/19 10:45 Baby Aspirin 81 Mg Chew PO 07/08/19 09:58 324 mg STAT ONE Administration Aspirin Confirm 07/08/19 10:43 Baby Aspirin 81 Mg Chew Administered 07/08/19 10:44 Dose 324 mg .ROUTE .STK-MED ONE Fentanyl Citrate 50 mcg 07/08/19 09:57 07/08/19 10:45 Sublimaze 100 Mcg/2 Ml IV 07/08/19 09:58 50 mcg STAT ONE Administration Fentanyl Citrate Confirm 07/08/19 10:43 Sublimaze 100 Mcg/2 Ml Administered 07/08/19 10:44 Dose 100 mcg .ROUTE .STK-MED ONE Lab/Rad Data: Laboratory Result Diagrams 07/08/19 10:36 07/08/19 10:36 Laboratory Results 07/08/19 07/08/19 07/08/19 Range/Units 12:30 10:36 10:36 WBC (4.0-10.5) K/mm3 RBC (4.1-5.4) M/mm3 Hgb (12.0-16.0) gm/dl Hct (35-47) % MCV (78-100) fl MCH (26-32) pg MCHC (32-36) g/dl RDW (11.5-14.0) % Plt Count (150-450) K/mm3 MPV (7.5-11.0) fl Gran % (36.0-66.0) % Eos # (Auto) (0-0.5) Absolute Lymphs (auto) (1.0-4.6) Absolute Monos (auto) (0.0-1.3) Lymphocytes % (24.0-44.0) % Monocytes % (0.0-12.0) % Eosinophils % (0.00-5.0) % Basophils % (0.0-0.4) % Absolute Granulocytes (1.4-6.9) Basophils # (0-0.4) PT 10.9 (9.95-12.35) SECONDS INR 0.97 (0.8-3.0) APTT 29.9 (25.3-37.0) SECONDS D-Dimer 652 H* (215-500) ng/mL Sodium (137-145) mmol/L Potassium (3.5-5.1) mmol/L Chloride (98-107) mmol/L Carbon Dioxide (22-30) mmol/L Anion Gap (5-15) MEQ/L BUN (7-17) mg/dL Creatinine (0.52-1.04) mg/dL Estimated GFR ML/MIN Glucose (74-106) mg/dL Calcium (8.4-10.2) mg/dL Total Bilirubin (0.2-1.3) mg/dL AST (14-36) U/L ALT (0-35) U/L Alkaline Phosphatase (38-126) U/L Troponin I < 0.012 < 0.012 (0.000-0.034) ng/mL NT-Pro-B Natriuret Pep (0-900) pg/mL Serum Total Protein (6.3-8.2) g/dL Albumin (3.5-5.0) g/dL 07/08/19 07/08/19 Range/Units 10:36 10:36 WBC 14.5 H (4.0-10.5) K/mm3 RBC 4.12 (4.1-5.4) M/mm3 Hgb 12.6 (12.0-16.0) gm/dl Hct 38.9 (35-47) % MCV 94.4 (78-100) fl MCH 30.6 (26-32) pg MCHC 32.4 (32-36) g/dl RDW 14.6 H (11.5-14.0) % Plt Count 331 (150-450) K/mm3 MPV 8.9 (7.5-11.0) fl Gran % 78.2 H (36.0-66.0) % Eos # (Auto) 0.61 H (0-0.5) Absolute Lymphs (auto) 1.61 (1.0-4.6) Absolute Monos (auto) 0.87 (0.0-1.3) Lymphocytes % 11.1 L (24.0-44.0) % Monocytes % 6.0 (0.0-12.0) % Eosinophils % 4.2 (0.00-5.0) % Basophils % 0.5 (0.0-0.4) % Absolute Granulocytes 11.35 H (1.4-6.9) Basophils # 0.07 (0-0.4) PT (9.95-12.35) SECONDS INR (0.8-3.0) APTT (25.3-37.0) SECONDS D-Dimer (215-500) ng/mL Sodium 139 (137-145) mmol/L Potassium 4.0 (3.5-5.1) mmol/L Chloride 105 (98-107) mmol/L Carbon Dioxide 27 (22-30) mmol/L Anion Gap 11.3 (5-15) MEQ/L BUN 23 H (7-17) mg/dL Creatinine 0.78 (0.52-1.04) mg/dL Estimated GFR > 60.0 ML/MIN Glucose 253 H (74-106) mg/dL Calcium 9.5 (8.4-10.2) mg/dL Total Bilirubin 0.70 (0.2-1.3) mg/dL AST 62 H (14-36) U/L ALT 61 H (0-35) U/L Alkaline Phosphatase 195 H (38-126) U/L Troponin I (0.000-0.034) ng/mL NT-Pro-B Natriuret Pep 57.3 (0-900) pg/mL Serum Total Protein 7.4 (6.3-8.2) g/dL Albumin 4.1 (3.5-5.0) g/dL - Progress Progress: improved Air Movement: good Blood Culture(s) Obtained: No Antibiotics given: No - Departure Departure Disposition: Home Clinical Impression: Chest pain Condition: Good Critical Care Time: No Referrals: LYUDMILA ARIAS MD [Primary Care Provider] - Instructions: Chest Pain (DC)
[2019-07-08 13:52] VITALS: BP 149/82; PULSE 90
== END 2019-07-08 13:52 | disposition home or self-care (01) ==
LOC: ED 09:30
DX: R07.9 Chest pain, unspecified (principal)
CPT/HCPCS: 36000; 36415; 71045; 71260; 80053; 83880; 84484; 85025; 85379; 85610; 85730; 93005; 93041; 96374; 99284; J3010; A9270-GY

== ENCOUNTER 2019-08-25 10:27 | Observation (INO) | payer OTHER ==
[2019-08-25] MEDS ORDERED: VENTOLIN COMMON CANISTER IH ONE (11:12)
[2019-08-25] MEDS ORDERED: TYLENOL EXTRA STRENGTH 500 MG PO STA (11:12)
[2019-08-25] MEDS ORDERED: Zofran 4 MG/2 ML VIAL IV ONE (11:12)
[2019-08-25] MEDS ORDERED: Zofran 4 MG/2 ML VIAL ONE (11:19)
[2019-08-25] MEDS ORDERED: TYLENOL EXTRA STRENGTH 500 MG ONE (11:19)
--- NOTE | 2019-08-25 11:22 | ERPHSYRPT ---
- History of Present Illness Time Seen by Provider: 08/25/19 11:00 Source: patient Patient Subjective Stated Complaint: Pt states "For the past week I have not been feeling well. I have had muscle aches, cough, shortness of breath. Today my chest is more tight than normal." Triage Nursing Assessment: Pt presented alert and oriented X 3, skin pwd Pt ambulates with an upright steady gait, able to speak in clear full sentences pt tachypneic. Physician History: 58 years old female with history of coronary artery disease status post stenting , hypertension, hyperlipidemia mellitus, tobacco abuse, COPD presented in the ER with chief complaint of progressively increasing dyspnea especially with exertion for almost a week take couple of steps making her short of breath and tight in the chest with some discomfort. Patient reports she is worn out. She is also having gradually increasing nonproductive cough with no fever or chills but has generalized body aches. 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 Patient denies sick contact with a positive covid person. Timing/Duration: week(s) (1) Activities at Onset: rest Severity of Dyspnea-Max: moderate Severity of Dyspnea-Current: moderate Modifying Factors: Improves With: coughing, exertion Associated Symptoms: cough, chest pain/discomfort, heart racing, tightness, No edema, No fever, No ankle swelling, No productive cough Allergies/Adverse Reactions: orphenadrine citrate [From Norflex] Allergy (Intermediate, Verified 07/08/19 10: 07) severe vomiting hydrocodone bitartrate [From [place]] Adverse Reaction (Mild, Verified 07/08/19 10 :07) nausea vomiting levofloxacin [From Levaquin] Adverse Reaction (Mild, Verified 07/08/19 10:07) Nausea and Vomiting Home Medications: Insulin Lispro [Humalog] 1 unit SQ UD 11/14/16 [History] Metoclopramide HCl [Reglan] 10 mg PO TID 11/14/16 [History] PANTOPRAZOLE 40 mg Tablet [Protonix 40MG Tablet] 40 mg PO DAILY 11/14/16 [ History] Promethazine HCl 25 mg [Phenergan 25 mg] 25 mg PO Q6HPRN PRN 11/14/16 [ History] Cyclobenzaprine HCl 10 mg [Cyclobenzaprine 10 MG] 10 mg PO QID 02/13/19 [ History] Alprazolam 1 mg [Xanax 1 mg] 1 mg PO HS 08/25/19 [History] Atorvastatin Calcium 40 mg PO HS 08/25/19 [History] Ergocalciferol (Vitamin D2) [Vitamin D2] 50,000 unit PO MO 08/25/19 [History] Metoprolol Tartrate 50 mg PO DAILY 08/25/19 [History] Hx Tetanus, Diphtheria Vaccination/Date Given: No Hx Influenza Vaccination/Date Given: Yes Hx Pneumococcal Vaccination/Date Given: Yes Immunizations Up to Date: Yes Travel Risk - International Travel Have you traveled outside of the country in past 3 weeks: No (N) Have you or anyone close to you been diagnosed with or: No Do your reside in a community with a known COVID-19 case?: Yes If Yes where:: [place] - Coronavirus Screening Has patient experienced Coronavirus symptoms: Yes Symptoms experienced: respiratory symptoms (i.e.Cought,shortness of breath), muscle pain, weakness Date of respiratory symptoms onset:: 08/18/19 - Review of Systems Constitutional: Fatigue, Malaise, Weakness Eyes: No Symptoms Ears, Nose, & Throat: No Symptoms Respiratory: Cough, Dyspnea, Dyspnea on Exertion (COTO) Cardiac: Chest Pain, Palpitations Abdominal/Gastrointestinal: Nausea Genitourinary Symptoms: No Symptoms Musculoskeletal: Myalgias Skin: No Symptoms Psychological: No Symptoms Endocrine: No Symptoms Hematologic/Lymphatic: No Symptoms Immunological/Allergic: No Symptoms - Past Medical History Pertinent Past Medical History: Yes Neurological History: No Pertinent History ENT History: No Pertinent History Cardiac History: Coronary Artery Disease, High Cholesterol, Hypertension Respiratory History: Bronchitis, COPD Endocrine Medical History: Diabetes Type I Musculoskeletal History: Degenerative Disk Disease, Other GI Medical History: GERD History: Renal Disease Psycho-Social History: Anxiety, Depression Female Reproductive Disorders: No Pertinent History Other Medical History: HAS INSULIN PUMP. cardiac STENT PLACEMENT X 2, back problem, renal failure - Past Surgical History Past Surgical History: Yes Neuro Surgical History: No Pertinent History Cardiac: Cardiac Catheterization, Cardiac Stent Respiratory: No Pertinent History Gastrointestinal: Cholecystectomy Genitourinary: No Pertinent History Musculoskeletal: Other Female Surgical History: Tubal Ligation Other Surgical History: BUNONECTOMY. BACK SURGERY X2 - Social History Smoking Status: Current every day smoker How long have you smoked: years Exposure to second hand smoke: Yes Alcohol Use: None Drug Use: none Patient Lives Alone: No Significant Family History: heart disease, diabetes, hypertension - Female History Hx Now: No - Nursing Vital Signs Nursing Vital Signs: Initial Vital Signs Temperature 97.5 F 08/25/19 10:29 Pulse Rate 98 H 08/25/19 10:29 Respiratory Rate 24 08/25/19 10:29 Blood Pressure 138/92 08/25/19 10:29 O2 Sat by Pulse Oximetry 100 08/25/19 10:29 Pain Scale Pain Intensity 2 - Physical Exam General Appearance: no apparent distress Eye Exam: PERRL/EOMI, eyes nml inspection Ears, Nose, Throat Exam: hearing grossly normal, pharyngeal erythema Neck Exam: normal inspection, non-tender, supple, full range of motion Respiratory Exam: normal breath sounds, crackles/rales, wheezing Abdominal/Gastrointestinal Exam: soft, normal bowel sounds, No tenderness Extremity Exam: non-tender, normal range of motion, normal inspection Neurologic Exam: alert, oriented x 3, cooperative Skin Exam: normal color, warm SpO2 Interpretation: normal SpO2: 100 O2 Delivery: Room Air - Course Nursing assessment & vital signs reviewed: Yes EKG Interpreted by Me: RATE (101), NORMAL AXIS, NORMAL QRS, Other (T waves inversions inferior leads and ST depression in lateral leads.) Ordered Tests: Active Orders 24 hr Category Date Time Status Bedrest with BRP/BSC ROUTINE Activity 08/25/19 14:03 Active Accucheck Q4H Care 08/25/19 14:03 Active Pulp Machine Operator STAT Care 08/25/19 11:14 Completed EKG-ER Only STAT Care 08/25/19 11:12 Completed IS COVID Approval STAT Care 08/25/19 14:03 Active IV Care Q6H Care 08/25/19 14:03 Active IV Insertion STAT Care 08/25/19 11:12 Completed Isolation, Initiate & Maintain Q6H Care 08/25/19 14:03 Active Isolation, Initiate & Maintain STAT Care 08/25/19 11:[address] in Observation ROUTINE Care 08/25/19 14:03 Active Otis Hose, Apply ROUTINE Care 08/25/19 14:03 Active Weight,Daily 0600 Care 08/25/19 14:03 Active 1800 Calorie ADA Diet 08/25/19 Dinner Active CHEST 1 VIEW (PORTABLE) Stat Exams 08/25/19 11:43 Taken BLOOD CULTURE Stat Lab 08/25/19 11:20 Received BMP AM.LAB Lab 08/26/19 04:00 Ordered CBC AM.LAB Lab 08/26/19 04:00 Ordered CBC Stat Lab 08/25/19 11:20 Completed CMP Stat Lab 08/25/19 11:20 Completed LDH-LACTATE DEHYDROGENASE Stat Lab 08/25/19 11:20 Completed Lactic Acid Stat Lab 08/25/19 11:12 Completed NT PRO BNP Routine Lab 08/25/19 14:15 Completed TROPONIN Q3H Lab 08/25/19 11:20 Completed TROPONIN Q3H Lab 08/25/19 14:15 Completed TROPONIN Q3H Lab 08/25/19 17:15 Ordered TROPONIN Q3H Lab 08/25/19 20:15 Ordered TROPONIN Q3H Lab 08/25/19 23:15 Ordered Respiratory Therapy Assessment DAILY RT 08/25/19 12:04 Completed Respiratory Therapy Consult ROUTINE RT 08/25/19 14:03 Completed Transfer Order Routine Transfer 08/25/19 Completed Medication Summary Generic Name Dose Route Start Last Admin Trade Name Freq PRN Reason Stop Dose Admin Acetaminophen 650 mg 08/25/19 14:03 Tylenol 325 Mg PO 09/24/19 14:02 Q4H PRN PRN PAIN AND/OR FEVER Albuterol Sulfate 4 puff 08/25/19 15:56 Ventolin Common Canister IH 09/24/19 15:55 Q4H PRN PRN SHORTNESS OF BREATH/WHEEZING Alprazolam 1 mg 08/25/19 22:00 Xanax 1 Mg PO 09/24/19 21:59 HS NISSA Cyclobenzaprine HCl 10 mg 08/25/19 17:00 Cyclobenzaprine 10 Mg PO 09/24/19 16:59 QID NISSA Enoxaparin Sodium 40 mg 08/25/19 17:00 Enoxaparin Sodium SQ 09/24/19 16:59 Q24H NISSA Ergocalciferol 50,000 unit 08/26/19 10:00 Vitamin D2 PO 09/25/19 09:59 Q7D NISSA Famotidine 20 mg 08/25/19 22:00 Pepcid 20 Mg Vial IV 09/24/19 21:59 Q12HT COUNTS INCLUDE 234 BEDS AT THE [facility] Azithromycin 500 mg in 250 mls @ 250 mls/hr 08/26/19 10:00 Zithromax 500 Mg/ 250 Ml Nacl Premix IV 09/25/19 09:59 Q24H10 COUNTS INCLUDE 234 BEDS AT THE [facility] Ceftriaxone Sodium/Dextrose 1 g in 50 mls @ 100 mls/hr 08/26/19 10:00 Rocephin 1 Gm-D5w 50 Ml Bag IV 09/25/19 09:59 Q24H10 COUNTS INCLUDE 234 BEDS AT THE [facility] Insulin Human Lispro 0 unit 08/25/19 14:03 Humalog SQ 09/24/19 14:02 UD PRN HYPERGLYCEMIA Metoclopramide HCl 10 mg 08/25/19 22:00 Reglan 10 Mg PO 09/24/19 21:59 TID COUNTS INCLUDE 234 BEDS AT THE [facility] Metoprolol Tartrate 50 mg 08/25/19 17:00 Lopressor 50 Mg PO 09/24/19 16:59 DAILY COUNTS INCLUDE 234 BEDS AT THE [facility] Non-Formulary Medication 40 mg 08/25/19 22:00 Atorvastatin Calcium [Atorvastatin Calcium] PO 09/24/19 21:59 HS COUNTS INCLUDE 234 BEDS AT THE [facility] Non-Formulary Medication 1 unit 08/25/19 16:30 Insulin Lispro SQ 09/24/19 16:29 UD COUNTS INCLUDE 234 BEDS AT THE [facility] Pantoprazole Sodium 40 mg 08/26/19 10:00 Protonix 40mg Tablet PO 09/25/19 09:59 DAILY COUNTS INCLUDE 234 BEDS AT THE [facility] Promethazine HCl 25 mg 08/25/19 16:17 Phenergan 25 Mg PO 09/24/19 16:16 Q6HPRN PRN NAUSEA Discontinued Medications Generic Name Dose Route Start Last Admin Trade Name Freq PRN Reason Stop Dose Admin Acetaminophen 1,000 mg 08/25/19 11:12 08/25/19 11:20 Tylenol Extra Strength 500 Mg PO 08/25/19 11:13 1,000 mg STAT STA Administration Acetaminophen Confirm 08/25/19 11:19 Tylenol Extra Strength 500 Mg Administered 08/25/19 11:20 Dose 1,000 mg .ROUTE .STK-MED ONE Albuterol Sulfate 4 puff 08/25/19 11:12 08/25/19 11:30 Ventolin Common Canister IH 08/25/19 11:13 2 puff STAT ONE Administration Albuterol Sulfate 4 puff 08/25/19 15:00 08/25/19 14:55 Ventolin Common Canister IH 09/24/19 14:59 4 puff QIDRT NISSA Administration Ceftriaxone Sodium/Dextrose 1 g in 50 mls @ 100 mls/hr 08/25/19 12:49 13:22 Rocephin 1 Gm-D5w 50 Ml Bag IV 08/25/19 13:18 Infused STAT STA Infusion Azithromycin 500 mg in 250 mls @ 250 mls/hr 08/25/19 12:49 08/25/19 13:08 Zithromax 500 Mg/ 250 Ml Nacl Premix IV 08/25/19 13:48 250 mls/hr STAT STA 250 mls/hr Administration Azithromycin Confirm 08/25/19 13:04 Zithromax 500 Mg/ 250 Ml Nacl Premix Administered 08/25/19 13:05 Dose 500 mg in 250 mls @ ud IV .STK-MED ONE Ceftriaxone Sodium/Dextrose Confirm 08/25/19 13:04 Rocephin 1 Gm-D5w 50 Ml Bag Administered 08/25/19 13:05 Dose 1 g in 50 mls @ ud IV .STK-MED ONE Ondansetron HCl 4 mg 08/25/19 11:12 08/25/19 11:20 Zofran 4 Mg/2 Ml Vial IV 08/25/19 11:13 4 mg STAT ONE Administration Ondansetron HCl Confirm 08/25/19 11:19 Zofran 4 Mg/2 Ml Vial Administered 08/25/19 11:20 Dose 4 mg .ROUTE .STK-MED ONE Lab/Rad Data: Laboratory Result Diagrams 08/25/19 11:20 08/25/19 11:20 Laboratory Results 08/25/19 08/25/19 08/25/19 Range/Units 11:20 11:20 11:20 WBC (4.0-10.5) K/mm3 RBC (4.1-5.4) M/mm3 Hgb (12.0-16.0) gm/dl Hct (35-47) % MCV (78-100) fl MCH (26-32) pg MCHC (32-36) g/dl RDW (11.5-14.0) % Plt Count (150-450) K/mm3 MPV (7.5-11.0) fl Sodium 140 (137-145) mmol/L Potassium 4.3 (3.5-5.1) mmol/L Chloride 104 (98-107) mmol/L Carbon Dioxide 28 (22-30) mmol/L Anion Gap 12.8 (5-15) MEQ/L BUN 18 H (7-17) mg/dL Creatinine 0.82 (0.52-1.04) mg/dL Estimated GFR > 60.0 ML/MIN Glucose 195 H (74-106) mg/dL Lactic Acid (0.4-2.0) Calcium 10.1 (8.4-10.2) mg/dL Total Bilirubin 0.50 (0.2-1.3) mg/dL AST 31 (14-36) U/L ALT 9 (0-35) U/L Alkaline Phosphatase 167 H (38-126) U/L Lactate Dehydrogenase 153 (120-246) U/L Troponin I < 0.012 (0.000-0.034) ng/mL Serum Total Protein 7.5 (6.3-8.2) g/dL Albumin 4.0 (3.5-5.0) g/dL Influenza Type A Ag NEGATIVE (NEGATIVE) Influenza Type B Ag NEGATIVE (NEGATIVE) RSV (PCR) NEGATIVE (Negative) 08/25/19 08/25/19 Range/Units 11:20 11:12 WBC 8.2 (4.0-10.5) K/mm3 RBC 5.01 (4.1-5.4) M/mm3 Hgb 15.1 (12.0-16.0) gm/dl Hct 45.8 (35-47) % MCV 91.4 (78-100) fl MCH 30.1 (26-32) pg MCHC 33.0 (32-36) g/dl RDW 14.1 H (11.5-14.0) % Plt Count 360 (150-450) K/mm3 MPV 9.1 (7.5-11.0) fl Sodium (137-145) mmol/L Potassium (3.5-5.1) mmol/L Chloride (98-107) mmol/L Carbon Dioxide (22-30) mmol/L Anion Gap (5-15) MEQ/L BUN (7-17) mg/dL Creatinine (0.52-1.04) mg/dL Estimated GFR ML/MIN Glucose (74-106) mg/dL Lactic Acid 1.2 (0.4-2.0) Calcium (8.4-10.2) mg/dL Total Bilirubin (0.2-1.3) mg/dL AST (14-36) U/L ALT (0-35) U/L Alkaline Phosphatase (38-126) U/L Lactate Dehydrogenase (120-246) U/L Troponin I (0.000-0.034) ng/mL Serum Total Protein (6.3-8.2) g/dL Albumin (3.5-5.0) g/dL Influenza Type A Ag (NEGATIVE) Influenza Type B Ag (NEGATIVE) RSV (PCR) (Negative) - Progress Progress: re-examined Air Movement: fair Progress Note: 08/25/19 12:48 58 years old is evaluated the ER for increasing dyspnea and cough along with generalized weakness/fatigue and body aches. Patient was a little short of breath and given albuterol inhaler. Chest x-ray showed hyperinflation but no focal consolidation. EKG showed T wave inversion in inferior leads but initial troponins are negative. Normal white count and lactate, grossly unremarkable chemistries except for elevated blood sugar. She has a negative respiratory panel. COVID testing is obtained as patient works in a long-term although she does not know any known positive contact but still can be. At this point I think patient has COPD exacerbation and will give her dose of antibiotics. I have d/w patient is being admitted for observation. Blood Culture(s) Obtained: Yes Antibiotics given: Yes Discussed with : Natalia Will see patient in: hospital (observation) Counseled pt/family regarding: lab results, diagnosis, rad results, smoking cessation - Departure Departure Disposition: Observation Clinical Impression: COPD (chronic obstructive pulmonary disease) Qualifiers: COPD type: COPD with acute exacerbation Qualified Code(s): J44.1 - Chronic obstructive pulmonary disease with (acute) exacerbation Condition: Stable Critical Care Time: Yes Critical Care Time(excluding separately billable procedures): Critical 30-74 mins
[2019-08-25 11:56] LABS: ALKALINE PHOSPHATASE 167 U/L (38-126); ANION GAP 12.8 MEQ/L (5-15); BLOOD UREA NITROGEN 18 mg/dL (7-17); CHLORIDE 104 mmol/L (98-107); Calcium 10.1 mg/dL (8.4-10.2); Carbon Dioxide 28 mmol/L (22-30); Creatinine 1 0.82 mg/dL (0.52-1.04); Glucose 195 mg/dL (74-106); LDH-LACTATE DEHYDROGENASE 153 U/L (120-246); Potassium 4.3 mmol/L (3.5-5.1); SGOT/AST 31 U/L (14-36); SGPT/ALT 9 U/L (0-35); SODIUM 140 mmol/L (137-145); Total Protein 7.5 g/dL (6.3-8.2)
[2019-08-25 11:57] LABS: Hematocrit 45.8 % (35-47); Hemoglobin 15.1 gm/dl (12.0-16.0); Mean Cell Volume 91.4 fl (78-100); Mean Corpuscular Hemoglobin 30.1 pg (26-32); Mean Platelet Volume 9.1 fl (7.5-11.0); Platelet Count 360 K/mm3 (150-450); Red Blood Count 5.01 M/mm3 (4.1-5.4); Red Cell Distribution Width 14.1 % (11.5-14.0); White Blood Count 8.2 K/mm3 (4.0-10.5)
[2019-08-25 12:13] LABS: INFLUENZA A NEGATIVE (NEGATIVE); INFLUENZA B NEGATIVE (NEGATIVE); RESPIRATORY SYNCTIAL VIRUS NEGATIVE (Negative)
[2019-08-25] MEDS ORDERED: Zithromax 500 MG/ 250 ML NaCl Premix 500 MG/250 ML IVPB IV STA (12:49)
[2019-08-25] MEDS ORDERED: ROCEPHIN 1 Gm-D5w 50 ml Bag** 1 G/50 ML IVPB IV STA (12:49)
[2019-08-25] MEDS ORDERED: ROCEPHIN 1 Gm-D5w 50 ml Bag** 1 G/50 ML IVPB IV ONE (13:04)
[2019-08-25] MEDS ORDERED: Zithromax 500 MG/ 250 ML NaCl Premix 500 MG/250 ML IVPB IV ONE (13:04)
[2019-08-25] MEDS ORDERED: TYLENOL 325 MG PO PRN (14:03)
[2019-08-25] MEDS ORDERED: HUMALOG SQ PRN (14:03)
[2019-08-25 14:49] LABS: NT PRO BNP 44.4 pg/mL (0-900); TROPONIN < 0.012 ng/mL (0.000-0.034)
[2019-08-25] MEDS ORDERED: VENTOLIN COMMON CANISTER IH SCH (15:00)
[2019-08-25] MEDS ORDERED: VENTOLIN COMMON CANISTER IH PRN (15:56)
[2019-08-25] MEDS ORDERED: PHENERGAN 25 MG PO PRN (16:17)
[2019-08-25] MEDS ORDERED: NON-FORMULARY ITEM (Insulin Lispro 1 UNIT) SQ SCH (16:30)
[2019-08-25] MEDS ORDERED: ENOXAPARIN SODIUM SQ SCH (17:00)
[2019-08-25] MEDS ORDERED: Protonix 40MG Tablet PO SCH (17:00)
[2019-08-25] MEDS ORDERED: Lopressor 50 MG PO SCH (17:00)
[2019-08-25] MEDS: Reglan 10 MG PO SCH ×2 (17:33→21:33)
[2019-08-25] MEDS: Cyclobenzaprine 10 MG PO SCH ×2 (17:33→21:33)
--- NOTE | 2019-08-25 19:38 | XRAY ---
Indication: Short of breath and cough. Suspect COVID 19. Comparison: July 08, 2019. Portable chest unchanged again hyperinflated and clear. Heart is not enlarged. Bony thorax intact. No new/acute findings.
[2019-08-25] MEDS: PATIENT OWN MEDICATION SQ PRN (21:46)
[2019-08-25] MEDS ORDERED: NON-FORMULARY ITEM (Atorvastatin Calcium [Atorvastatin Calcium] 40 MG) PO SCH (22:00)
[2019-08-25] MEDS ORDERED: Pepcid 20 MG VIAL IV SCH (22:00)
[2019-08-25] MEDS ORDERED: XANAX 1 MG PO SCH (22:00)
[2019-08-25] MEDS ORDERED: ZOCOR 20MG PO SCH (22:00)
[2019-08-26] MEDS: PATIENT OWN MEDICATION SQ PRN (00:45)
[2019-08-26 04:50] LABS: Hematocrit 42.5 % (35-47); Mean Cell Volume 91.8 fl (78-100); Mean Corpuscular Hemoglobin 30.2 pg (26-32); Mean Corpuscular Hgb Concent. 32.9 g/dl (32-36); Mean Platelet Volume 9.2 fl (7.5-11.0); Platelet Count 319 K/mm3 (150-450); Red Blood Count 4.63 M/mm3 (4.1-5.4); Red Cell Distribution Width 13.9 % (11.5-14.0); White Blood Count 7.4 K/mm3 (4.0-10.5)
[2019-08-26 05:03] LABS: ANION GAP 9.7 MEQ/L (5-15); BLOOD UREA NITROGEN 19 mg/dL (7-17); CHLORIDE 106 mmol/L (98-107); Calcium 9.4 mg/dL (8.4-10.2); Carbon Dioxide 28 mmol/L (22-30); Creatinine 1 0.77 mg/dL (0.52-1.04); Potassium 3.5 mmol/L (3.5-5.1); SODIUM 140 mmol/L (137-145)
[2019-08-26 05:22] LABS: Glucose 45 mg/dL (74-106)
[2019-08-26 08:38] VITALS: BP 115/69; PULSE 84; O2SAT 98
--- NOTE | 2019-08-26 09:12 | PCM.SSS ---
History of Present Illness - Chief Complaint Chief Complaint: Exac COPD History of Present Illness: is a 58 year old female who presented to the ER with 1 week of cough and muscle aches and some shortness of breath, no fever and cough is nonproductive. she was admitted and swabbed for covid, overnight her symptoms have resolved and she is insistent to go home today, sats are normal on room air , she has no complaints today. - Review of Systems Constitutional: No Fever, No Chills Respiratory: Cough, Short Of Breath Cardiac: No Chest Pain, No Edema, No Syncope Abdominal/Gastrointestinal: No Abdominal Pain, No Nausea, No Vomiting, No Diarrhea Genitourinary Symptoms: No Dysuria Skin: No Rash All Other Systems: Reviewed and Negative Medications & Allergies Home Medications: Home Medication List Insulin Lispro [Humalog] 1 unit SQ UD 11/14/16 [History Confirmed 08/25/19] Metoclopramide HCl [Reglan] 10 mg PO TID 11/14/16 [History Confirmed 08/25/19] PANTOPRAZOLE 40 mg Tablet [Protonix 40MG Tablet] 40 mg PO DAILY 11/14/16 [ History Confirmed 08/25/19] Promethazine HCl 25 mg [Phenergan 25 mg] 25 mg PO Q6HPRN PRN 11/14/16 [ History Confirmed 08/25/19] Albuterol Sulfate [Albuterol Sulfate Hfa] 2 puff IH Q4-6HPRN PRN #1 hfa.aer.ad 07/18/17 [Rx Confirmed 08/25/19] Cyclobenzaprine HCl 10 mg [Cyclobenzaprine 10 MG] 10 mg PO QID 02/13/19 [ History Confirmed 08/25/19] Alprazolam 1 mg [Xanax 1 mg] 1 mg PO HS 08/25/19 [History Confirmed ] Atorvastatin Calcium 40 mg PO HS 08/25/19 [History Confirmed 08/25/19] Ergocalciferol (Vitamin D2) [Vitamin D2] 50,000 unit PO MO 08/25/19 [History Confirmed 08/25/19] Metoprolol Tartrate 50 mg PO DAILY 08/25/19 [History Confirmed 08/25/19] Doxycycline Hyclate 100 mg PO BID #14 tablet 08/26/19 [Rx] Prednisone 10 mg [Deltasone 10 mg] 10 mg PO DAILY #7 tablet 08/26/19 [Rx] Allergies/Adverse Reactions: Allergies Allergy/AdvReac Type Severity Reaction Status Date / Time orphenadrine citrate Allergy Intermediate Verified 07/08/19 10:07 [From Norflex] hydrocodone bitartrate AdvReac Mild Verified 07/08/19 10:07 [From [place]] levofloxacin [From Levaquin] AdvReac Mild Nausea and Verified 07/08/19 10:07 Vomiting - Past Medical History Past Medical History: Yes Neurological History: No Pertinent History ENT History: No Pertinent History Cardiac History: Coronary Artery Disease, High Cholesterol, Hypertension Respiratory History: Bronchitis, COPD Endocrine Medical History: Diabetes Type I Musculoskelatal History: Degenerative Disk Disease, Other GI Medical History: GERD History: Renal Disease Pyscho-Social History: Anxiety, Depression Reproductive Disorders: No Pertinent History Comment: HAS INSULIN PUMP. cardiac STENT PLACEMENT X 2, back problem, renal failure - Female History Are you now?: No - Past Surgical History Past Surgical History: Yes Neuro Surgical History: No Pertinent History Cardiac History: Cardiac Catheterization, Cardiac Stent Respiratory Surgery: No Pertinent History GI Surgical History: Cholecystectomy Genitourinary Surgical Hx: No Pertinent History Musculskeletal Surgical Hx: Other Female Surgical History: Tubal Ligation Other Surgical History: BUNONECTOMY. BACK SURGERY X2 - Social History Smoking Status: Current every day smoker How long have you smoked: years Exposure to second hand smoke: Yes Alcohol: None Drug Use: none Significant Family History: heart disease, diabetes, hypertension - Physical Exam Vital Signs: Vital Signs - 24 hr Temp Pulse Resp BP Pulse Ox 08/26/19 08:00 97.4 F 84 16 115/69 98 08/26/19 07:00 18 08/26/19 06:00 18 08/26/19 05:00 18 08/26/19 04:00 96.6 F 86 18 122/56 08/26/19 02:58 12 08/26/19 02:00 14 08/26/19 01:00 16 08/26/19 00:00 97.8 F 70 16 112/66 96 08/25/19 23:00 20 08/25/19 22:00 18 08/25/19 21:00 18 08/25/19 20:00 97.6 F 70 18 98/56 96 08/25/19 19:53 69 20 96 08/25/19 19:00 15 08/25/19 18:00 15 08/25/19 17:00 20 08/25/19 16:56 102 H 18 94 L 08/25/19 16:26 100 08/25/19 16:00 98.0 F 109 H 18 130/69 97 08/25/19 15:28 98.3 F 87 18 136/75 96 08/25/19 15:03 88 13 96 08/25/19 14:57 88 18 97 08/25/19 14:20 98.3 F 87 18 136/75 96 08/25/19 14:04 97.9 F 88 20 132/80 98 08/25/19 13:08 97.9 F 92 H 18 135/83 97 08/25/19 12:05 91 H 22 100 08/25/19 11:38 97.8 F 92 H 24 150/85 98 08/25/19 11:30 82 18 127/76 99 08/25/19 10:29 97.5 F 98 H 24 138/92 100 General Appearance: no apparent distress, alert Eye Exam: PERRL/EOMI, eyes nml inspection Respiratory Exam: diminished breath sounds, prolonged expirations Cardiovascular Exam: regular rate/rhythm, normal heart sounds, normal peripheral pulses Gastrointestinal/Abdomen Exam: soft, normal bowel sounds, No tenderness, No mass Extremity Exam: normal inspection, normal range of motion, pelvis stable Skin Exam: normal color, warm, dry, No rash Results - Labs Lab/Micro Results: Accuchecks Date 08/26/19 Date 08/26/19 Date 08/26/19 Date 08/25/19 Time 05:30 Time 04:00 Time 00:01 Time 21:00 Accucheck Value: 140 Accucheck Value: 56 Accucheck Value: 197 Accucheck Value: 429 Accucheck Value: 259 Accucheck Value: 210 Lab Results-Last 24 Hours 08/25/19 08/25/19 08/25/19 Range/Units 11:12 11:20 11:20 WBC 8.2 (4.0-10.5) K/mm3 RBC 5.01 (4.1-5.4) M/mm3 Hgb 15.1 (12.0-16.0) gm/dl Hct 45.8 (35-47) % MCV 91.4 (78-100) fl MCH 30.1 (26-32) pg MCHC 33.0 (32-36) g/dl RDW 14.1 H (11.5-14.0) % Plt Count 360 (150-450) K/mm3 MPV 9.1 (7.5-11.0) fl Sodium 140 (137-145) mmol/L Potassium 4.3 (3.5-5.1) mmol/L Chloride 104 (98-107) mmol/L Carbon Dioxide 28 (22-30) mmol/L Anion Gap 12.8 (5-15) MEQ/L BUN 18 H (7-17) mg/dL Creatinine 0.82 (0.52-1.04) mg/dL Estimated GFR > 60.0 ML/MIN Glucose 195 H (74-106) mg/dL Lactic Acid 1.2 (0.4-2.0) Calcium 10.1 (8.4-10.2) mg/dL Total Bilirubin 0.50 (0.2-1.3) mg/dL AST 31 (14-36) U/L ALT 9 (0-35) U/L Alkaline Phosphatase 167 H (38-126) U/L Lactate Dehydrogenase 153 (120-246) U/L Troponin I (0.000-0.034) ng/mL NT-Pro-B Natriuret Pep (0-900) pg/mL Serum Total Protein 7.5 (6.3-8.2) g/dL Albumin 4.0 (3.5-5.0) g/dL Influenza Type A Ag (NEGATIVE) Influenza Type B Ag (NEGATIVE) RSV (PCR) (Negative) 08/25/19 08/25/19 08/25/19 Range/Units 11:20 11:20 14:15 WBC (4.0-10.5) K/mm3 RBC (4.1-5.4) M/mm3 Hgb (12.0-16.0) gm/dl Hct (35-47) % MCV (78-100) fl MCH (26-32) pg MCHC (32-36) g/dl RDW (11.5-14.0) % Plt Count (150-450) K/mm3 MPV (7.5-11.0) fl Sodium (137-145) mmol/L Potassium (3.5-5.1) mmol/L Chloride (98-107) mmol/L Carbon Dioxide (22-30) mmol/L Anion Gap (5-15) MEQ/L BUN (7-17) mg/dL Creatinine (0.52-1.04) mg/dL Estimated GFR ML/MIN Glucose (74-106) mg/dL Lactic Acid (0.4-2.0) Calcium (8.4-10.2) mg/dL Total Bilirubin (0.2-1.3) mg/dL AST (14-36) U/L ALT (0-35) U/L Alkaline Phosphatase (38-126) U/L Lactate Dehydrogenase (120-246) U/L Troponin I < 0.012 < 0.012 (0.000-0.034) ng/mL NT-Pro-B Natriuret Pep 44.4 (0-900) pg/mL Serum Total Protein (6.3-8.2) g/dL Albumin (3.5-5.0) g/dL Influenza Type A Ag NEGATIVE (NEGATIVE) Influenza Type B Ag NEGATIVE (NEGATIVE) RSV (PCR) NEGATIVE (Negative) 08/25/19 08/25/19 08/25/19 Range/Units 17:15 20:15 23:25 WBC (4.0-10.5) K/mm3 RBC (4.1-5.4) M/mm3 Hgb (12.0-16.0) gm/dl Hct (35-47) % MCV (78-100) fl MCH (26-32) pg MCHC (32-36) g/dl RDW (11.5-14.0) % Plt Count (150-450) K/mm3 MPV (7.5-11.0) fl Sodium (137-145) mmol/L Potassium (3.5-5.1) mmol/L Chloride (98-107) mmol/L Carbon Dioxide (22-30) mmol/L Anion Gap (5-15) MEQ/L BUN (7-17) mg/dL Creatinine (0.52-1.04) mg/dL Estimated GFR ML/MIN Glucose (74-106) mg/dL Lactic Acid (0.4-2.0) Calcium (8.4-10.2) mg/dL Total Bilirubin (0.2-1.3) mg/dL AST (14-36) U/L ALT (0-35) U/L Alkaline Phosphatase (38-126) U/L Lactate Dehydrogenase (120-246) U/L Troponin I < 0.012 < 0.012 < 0.012 (0.000-0.034) ng/mL NT-Pro-B Natriuret Pep (0-900) pg/mL Serum Total Protein (6.3-8.2) g/dL Albumin (3.5-5.0) g/dL Influenza Type A Ag (NEGATIVE) Influenza Type B Ag (NEGATIVE) RSV (PCR) (Negative) 08/26/19 08/26/19 Range/Units 04:20 04:20 WBC 7.4 (4.0-10.5) K/mm3 RBC 4.63 (4.1-5.4) M/mm3 Hgb 14.0 (12.0-16.0) gm/dl Hct 42.5 (35-47) % MCV 91.8 (78-100) fl MCH 30.2 (26-32) pg MCHC 32.9 (32-36) g/dl RDW 13.9 (11.5-14.0) % Plt Count 319 (150-450) K/mm3 MPV 9.2 (7.5-11.0) fl Sodium 140 (137-145) mmol/L Potassium 3.5 (3.5-5.1) mmol/L Chloride 106 (98-107) mmol/L Carbon Dioxide 28 (22-30) mmol/L Anion Gap 9.7 (5-15) MEQ/L BUN 19 H (7-17) mg/dL Creatinine 0.77 (0.52-1.04) mg/dL Estimated GFR > 60.0 ML/MIN Glucose 45 L* (74-106) mg/dL Lactic Acid (0.4-2.0) Calcium 9.4 (8.4-10.2) mg/dL Total Bilirubin (0.2-1.3) mg/dL AST (14-36) U/L ALT (0-35) U/L Alkaline Phosphatase (38-126) U/L Lactate Dehydrogenase (120-246) U/L Troponin I (0.000-0.034) ng/mL NT-Pro-B Natriuret Pep (0-900) pg/mL Serum Total Protein (6.3-8.2) g/dL Albumin (3.5-5.0) g/dL Influenza Type A Ag (NEGATIVE) Influenza Type B Ag (NEGATIVE) RSV (PCR) (Negative) Accuchecks Date 08/26/19 Date 08/26/19 Date 08/26/19 Date 08/25/19 Time 05:30 Time 04:00 Time 00:01 Time 21:00 Accucheck Value: 140 Accucheck Value: 56 Accucheck Value: 197 Accucheck Value: 429 Accucheck Value: 259 Accucheck Value: 210 - Radiology Impressions Radiology Exams & Impressions: Radiology Procedures Category Date Time Status CHEST 1 VIEW (PORTABLE) Stat Exams 08/25/19 11:43 Completed - Other Procedures and Tests Respiratory Therapy 08/25/19 14:56 Respiratory Therapy Assessment DAILY Assessment/Plan (1) Acute exacerbation of chronic obstructive airways disease Current Visit: Yes Status: Acute Assessment & Plan: home on po prednisone and doxy Code(s): J44.1 - CHRONIC OBSTRUCTIVE PULMONARY DISEASE W (ACUTE) EXACERBATION (2) Cough Current Visit: No Status: Acute Assessment & Plan: covid-19 swab pending. discussed she must stay isolated in her home and not go out to public until results are returned but no fever at all in the last week and clinically consistent with copd exacerbation Code(s): R05 - COUGH (3) Type 1 diabetes mellitus Current Visit: No Status: Chronic Qualifiers: Diabetes mellitus complication status: with kidney complications Hospital Summary - Vitals & Intake/Output Vital Signs: Vital Signs Temperature 97.4 F 08/26/19 08:00 Pulse Rate 84 08/26/19 08:00 Respiratory Rate 16 08/26/19 08:00 Blood Pressure 115/69 08/26/19 08:00 O2 Sat by Pulse Oximetry 98 08/26/19 08:00 Intake & Output: Intake & Output 08/23/19 08/24/19 08/25/19 08/26/19 11:59 11:59 11:59 11:59 Intake Total 680 Output Total 1200 Balance -520 Weight 61.6 kg 61 kg - Lab Result Diagrams: 08/26/19 04:20 08/26/19 04:20 Lab Results-Last 24 Hrs: Accuchecks Date 08/26/19 Date 08/26/19 Date 08/26/19 Date 08/25/19 Time 05:30 Time 04:00 Time 00:01 Time 21:00 Accucheck Value: 140 Accucheck Value: 56 Accucheck Value: 197 Accucheck Value: 429 Accucheck Value: 259 Accucheck Value: 210 Lab Results-Last 24 Hours 08/25/19 08/25/19 08/25/19 Range/Units 11:12 11:20 11:20 WBC 8.2 (4.0-10.5) K/mm3 RBC 5.01 (4.1-5.4) M/mm3 Hgb 15.1 (12.0-16.0) gm/dl Hct 45.8 (35-47) % MCV 91.4 (78-100) fl MCH 30.1 (26-32) pg MCHC 33.0 (32-36) g/dl RDW 14.1 H (11.5-14.0) % Plt Count 360 (150-450) K/mm3 MPV 9.1 (7.5-11.0) fl Sodium 140 (137-145) mmol/L Potassium 4.3 (3.5-5.1) mmol/L Chloride 104 (98-107) mmol/L Carbon Dioxide 28 (22-30) mmol/L Anion Gap 12.8 (5-15) MEQ/L BUN 18 H (7-17) mg/dL Creatinine 0.82 (0.52-1.04) mg/dL Estimated GFR > 60.0 ML/MIN Glucose 195 H (74-106) mg/dL Lactic Acid 1.2 (0.4-2.0) Calcium 10.1 (8.4-10.2) mg/dL Total Bilirubin 0.50 (0.2-1.3) mg/dL AST 31 (14-36) U/L ALT 9 (0-35) U/L Alkaline Phosphatase 167 H (38-126) U/L Lactate Dehydrogenase 153 (120-246) U/L Troponin I (0.000-0.034) ng/mL NT-Pro-B Natriuret Pep (0-900) pg/mL Serum Total Protein 7.5 (6.3-8.2) g/dL Albumin 4.0 (3.5-5.0) g/dL Influenza Type A Ag (NEGATIVE) Influenza Type B Ag (NEGATIVE) RSV (PCR) (Negative) 08/25/19 08/25/19 08/25/19 Range/Units 11:20 11:20 14:15 WBC (4.0-10.5) K/mm3 RBC (4.1-5.4) M/mm3 Hgb (12.0-16.0) gm/dl Hct (35-47) % MCV (78-100) fl MCH (26-32) pg MCHC (32-36) g/dl RDW (11.5-14.0) % Plt Count (150-450) K/mm3 MPV (7.5-11.0) fl Sodium (137-145) mmol/L Potassium (3.5-5.1) mmol/L Chloride (98-107) mmol/L Carbon Dioxide (22-30) mmol/L Anion Gap (5-15) MEQ/L BUN (7-17) mg/dL Creatinine (0.52-1.04) mg/dL Estimated GFR ML/MIN Glucose (74-106) mg/dL Lactic Acid (0.4-2.0) Calcium (8.4-10.2) mg/dL Total Bilirubin (0.2-1.3) mg/dL AST (14-36) U/L ALT (0-35) U/L Alkaline Phosphatase (38-126) U/L Lactate Dehydrogenase (120-246) U/L Troponin I < 0.012 < 0.012 (0.000-0.034) ng/mL NT-Pro-B Natriuret Pep 44.4 (0-900) pg/mL Serum Total Protein (6.3-8.2) g/dL Albumin (3.5-5.0) g/dL Influenza Type A Ag NEGATIVE (NEGATIVE) Influenza Type B Ag NEGATIVE (NEGATIVE) RSV (PCR) NEGATIVE (Negative) 08/25/19 08/25/19 08/25/19 Range/Units 17:15 20:15 23:25 WBC (4.0-10.5) K/mm3 RBC (4.1-5.4) M/mm3 Hgb (12.0-16.0) gm/dl Hct (35-47) % MCV (78-100) fl MCH (26-32) pg MCHC (32-36) g/dl RDW (11.5-14.0) % Plt Count (150-450) K/mm3 MPV (7.5-11.0) fl Sodium (137-145) mmol/L Potassium (3.5-5.1) mmol/L Chloride (98-107) mmol/L Carbon Dioxide (22-30) mmol/L Anion Gap (5-15) MEQ/L BUN (7-17) mg/dL Creatinine (0.52-1.04) mg/dL Estimated GFR ML/MIN Glucose (74-106) mg/dL Lactic Acid (0.4-2.0) Calcium (8.4-10.2) mg/dL Total Bilirubin (0.2-1.3) mg/dL AST (14-36) U/L ALT (0-35) U/L Alkaline Phosphatase (38-126) U/L Lactate Dehydrogenase (120-246) U/L Troponin I < 0.012 < 0.012 < 0.012 (0.000-0.034) ng/mL NT-Pro-B Natriuret Pep (0-900) pg/mL Serum Total Protein (6.3-8.2) g/dL Albumin (3.5-5.0) g/dL Influenza Type A Ag (NEGATIVE) Influenza Type B Ag (NEGATIVE) RSV (PCR) (Negative) 08/26/19 08/26/19 Range/Units 04:20 04:20 WBC 7.4 (4.0-10.5) K/mm3 RBC 4.63 (4.1-5.4) M/mm3 Hgb 14.0 (12.0-16.0) gm/dl Hct 42.5 (35-47) % MCV 91.8 (78-100) fl MCH 30.2 (26-32) pg MCHC 32.9 (32-36) g/dl RDW 13.9 (11.5-14.0) % Plt Count 319 (150-450) K/mm3 MPV 9.2 (7.5-11.0) fl Sodium 140 (137-145) mmol/L Potassium 3.5 (3.5-5.1) mmol/L Chloride 106 (98-107) mmol/L Carbon Dioxide 28 (22-30) mmol/L Anion Gap 9.7 (5-15) MEQ/L BUN 19 H (7-17) mg/dL Creatinine 0.77 (0.52-1.04) mg/dL Estimated GFR > 60.0 ML/MIN Glucose 45 L* (74-106) mg/dL Lactic Acid (0.4-2.0) Calcium 9.4 (8.4-10.2) mg/dL Total Bilirubin (0.2-1.3) mg/dL AST (14-36) U/L ALT (0-35) U/L Alkaline Phosphatase (38-126) U/L Lactate Dehydrogenase (120-246) U/L Troponin I (0.000-0.034) ng/mL NT-Pro-B Natriuret Pep (0-900) pg/mL Serum Total Protein (6.3-8.2) g/dL Albumin (3.5-5.0) g/dL Influenza Type A Ag (NEGATIVE) Influenza Type B Ag (NEGATIVE) RSV (PCR) (Negative) Micro Results-Entire Visit: Accuchecks Date 08/26/19 Date 08/26/19 Date 08/26/19 Date 08/25/19 Time 05:30 Time 04:00 Time 00:01 Time 21:00 Accucheck Value: 140 Accucheck Value: 56 Accucheck Value: 197 Accucheck Value: 429 Accucheck Value: 259 Accucheck Value: 210 - Radiology Exams Ordered Rad Exams-Entire Visit: Radiology Procedures Category Date Time Status CHEST 1 VIEW (PORTABLE) Stat Exams 08/25/19 11:43 Completed - Procedures and Test Procedures and Tests throughout Hospitalization: Therapy Orders & Screens 08/25/19 12:04 Respiratory Therapy Assessment DAILY Comment: 08/25/19 14:03 Respiratory Therapy Consult ROUTINE Comment: Reason For Exam: 08/25/19 14:56 Respiratory Therapy Assessment DAILY Comment: 08/25/19 15:48 Smoking Cessation Education ONCE Comment: Diagnosis: Exac COPD Smoking Status: Current every day smoker How long have you smoked: years Have you smoked in the past 12 months: Yes Approximately how many cigarettes per day: 30 Do you dip or chew tobacco: No - Discharge Disposition: Home, Self-Care Condition: Stable Prescriptions: New Prednisone 10 mg [Deltasone 10 mg] 10 mg PO DAILY #7 tablet Doxycycline Hyclate 100 mg PO BID #14 tablet Continue Metoclopramide HCl [Reglan] 10 mg PO TID PANTOPRAZOLE 40 mg Tablet [Protonix 40MG Tablet] 40 mg PO DAILY Promethazine HCl 25 mg [Phenergan 25 mg] 25 mg PO Q6HPRN PRN PRN Reason: Nausea Insulin Lispro [Humalog] 1 unit SQ UD Albuterol Sulfate [Albuterol Sulfate Hfa] 2 puff IH Q4-6HPRN PRN #1 hfa.aer.ad PRN Reason: cough or wheeze Cyclobenzaprine HCl 10 mg [Cyclobenzaprine 10 MG] 10 mg PO QID Alprazolam 1 mg [Xanax 1 mg] 1 mg PO HS Atorvastatin Calcium 40 mg PO HS Metoprolol Tartrate 50 mg PO DAILY Ergocalciferol (Vitamin D2) [Vitamin D2] 50,000 unit PO MO Additional Instructions: return immediately for shortness of breath or any new trouble breathing or confusion. you will be contacted with the results of your COVID-19 swab, until that time remain isolated in your home Follow up with: LYUDMILA ARIAS MD [Primary Care Provider] - 1 Week
[2019-08-26] MEDS ORDERED: Zithromax 500 MG/ 250 ML NaCl Premix 500 MG/250 ML IVPB IV SCH (10:00)
[2019-08-26] MEDS ORDERED: VITAMIN D2 PO SCH (10:00)
[2019-08-26] MEDS ORDERED: ROCEPHIN 1 Gm-D5w 50 ml Bag** 1 G/50 ML IVPB IV SCH (10:00)
== END 2019-08-26 10:21 | disposition home or self-care (01) ==
LOC: ED 10:27 → MED SURG 13:47
PROVIDERS: ADMIT Family Medicine; ATTEND Family Medicine
DX: J44.1 Chronic obstructive pulmonary disease with (acute) exacerbation (principal); I10 Essential (primary) hypertension; R05 Cough; E78.00 Pure hypercholesterolemia, unspecified; I25.10 Atherosclerotic heart disease of native coronary artery without angina pectoris; E11.9 Type 2 diabetes mellitus without complications; F17.200 Nicotine dependence, unspecified, uncomplicated; Z79.899 Other long term (current) drug therapy
CPT/HCPCS: 36000; 36415; 71045; 80048; 80053; 82962; 83605; 83615; 83880; 84484; 85027; 87040; 87631; 93005; 93041; 93268; 94640; 94762; 96365; 96368; 96374; 99000; 99285; 99291; G0378; J0456; J0696; J1650; J2405; U0002; A9270-GY

== ENCOUNTER 2020-05-20 12:26 | Inpatient (IN) | payer OTHER ==
[2020-05-20] MEDS ORDERED: Zofran 4 MG/2 ML VIAL ONE (12:58)
[2020-05-20] MEDS ORDERED: Sodium Chloride 0.9% 1000 ML 1,000 ML ONE ×2 (12:58→15:45)
[2020-05-20] MEDS: Sodium Chloride 0.9% 1000 ML 1,000 ML IV STA ×2 (13:01→14:42)
[2020-05-20] MEDS: Zofran 4 MG/2 ML VIAL IV ONE ×2 (13:01→14:42)
[2020-05-20 13:07] LABS: VBG BASE EXCESS -12.2 (-2.0-2.0); VBG CARBOXYHEMOGLOBIN 4.1 % T HGB (0.0-6.9); VBG HCO3- 14.1 meq/L (22-28); VBG HEMOGLOBIN 13.1; VBG O2 SATURATION 77.8 (95-100); VBG POTASSIUM 5.6 (3.5-5.1)
[2020-05-20 13:08] LABS: VBG pH 7.24 (7.32-7.42)
[2020-05-20 13:09] LABS: Hematocrit 41.3 % (35-47); Hemoglobin 12.9 gm/dl (12.0-16.0); Mean Cell Volume 97.2 fl (78-100); Mean Corpuscular Hemoglobin 30.4 pg (26-32); Mean Corpuscular Hgb Concent. 31.2 g/dl (32-36); Mean Platelet Volume 9.4 fl (7.5-11.0); Platelet Count 413 K/mm3 (150-450); Red Blood Count 4.25 M/mm3 (4.1-5.4); Red Cell Distribution Width 14.4 % (11.5-14.0); White Blood Count 16.5 K/mm3 (4.0-10.5)
[2020-05-20 13:12] LABS: Appearance CLEAR (CLEAR); Bilirubin NEGATIVE (NEGATIVE); Blood NEGATIVE Ery/ul (0-5); Glucose >=500 mg/dL (NEGATIVE); Ketones SMALL (NEGATIVE); Leukocyte Esterase NEGATIVE (NEGATIVE); Nitrite NEGATIVE (NEGATIVE); Protein,Urine Dip NEGATIVE (Negative); RBC 0-2 /HPF (0-2); Urobilinogen NEGATIVE mg/dL (0-1)
[2020-05-20] MEDS ORDERED: Phenergan 25 MG INJ ONE (13:15)
[2020-05-20 13:19] LABS: ALBUMIN 4.1 g/dL (3.5-5.0); ANION GAP 30.1 MEQ/L (5-15); BILIRUBIN,TOTAL 0.7 mg/dL (0.2-1.3); Calcium 10.3 mg/dL (8.4-10.2); Creatinine 1 1.26 mg/dL (0.52-1.04); EST GLOMERULAR FILTRATION RATE 46.4 ML/MIN; Potassium 5.6 mmol/L (3.5-5.1); Total Protein 7.1 g/dL (6.3-8.2)
[2020-05-20] MEDS ORDERED: Phenergan 25 MG INJ IM ONE (13:24)
[2020-05-20 13:32] LABS: BAND 1 % (0.0-2.0); Eosinophil 1 % (0.00-3.0); Lymphocytes 4 % (24-44); Monocyte 2 % (0.0-12.0); Neutrophils 92 % (36.0-66.0); Total Cells Counted 100
[2020-05-20 13:33] LABS: ANISOCYTOSIS 1+; Platelet Estimate NORMAL (NORMAL); Toxic Granulation 1+
--- NOTE | 2020-05-20 13:43 | ERPHSYRPT ---
- History of Present Illness Time Seen by Provider: 05/20/20 12:30 Source: patient Exam Limitations: no limitations Patient Subjective Stated Complaint: high blood sugar, weakness, "feeling sleepy" Triage Nursing Assessment: pt to ED c/o hyperglycemia onset yesterday. 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 glucometer stops reading at 600 and has had few readings that were too high to read. has insulin pump, reports she shut it off just before coming to ED. also reports nausea and vomiting today, approx 6 episodes. denies abd pain. deneis COVID exposure. "I get sick sometimes when my sugar is so high." reports BS normally runs aroudn 200. Physician History: 59 years old female with history of insulin-dependent diabetes mellitus on insulin pump presented in the ER with chief complaint of not feeling well for the last 2 days with poorly controlled blood sugar. Patient report usual blood sugar runs in 200s. This morning she started to get sick, nauseated and vomited multiple times, nonprojectile, nonbilious and now feels weak fatigued and tired with no energy. Blood sugar prior to arrival was 570s and then reading high on subsequent check. Patient does report history of DKA's in the past and getting sick at her stomach with DKA. Denies any abdominal pain fever chills cough or shortness of breath. Denies any chest pain or palpitations. Denies any sick contact. Timing/Duration: day(s) (2), gradual onset, worse Severity: moderate Associated Symptoms: nausea, vomiting Allergies/Adverse Reactions: orphenadrine citrate [From Norflex] Allergy (Intermediate, Verified 07/08/19 10 :07) severe vomiting adhesive tape Allergy (Verified 05/20/20 12:42) hydrocodone bitartrate [From [place]] Adverse Reaction (Mild, Verified 07/08/19 10:07) nausea vomiting levofloxacin [From Levaquin] Adverse Reaction (Mild, Verified 07/08/19 10:07) Nausea and Vomiting Home Medications: Insulin Lispro [Humalog] 1 unit SQ UD 11/14/16 [History] PANTOPRAZOLE 40 mg Tablet [Protonix 40MG Tablet] 40 mg PO DAILY 11/14/16 [History] Promethazine HCl 25 mg [Phenergan 25 mg] 25 mg PO Q6HPRN PRN 11/14/16 [History] Cyclobenzaprine HCl 10 mg [Cyclobenzaprine 10 MG] 10 mg PO QID 02/13/19 [History] Alprazolam 1 mg [Xanax 1 mg] 1 mg PO HS 08/25/19 [History] Atorvastatin Calcium 40 mg PO HS 08/25/19 [History] Ergocalciferol (Vitamin D2) [Vitamin D2] 50,000 unit PO MO 08/25/19 [History] Metoprolol Tartrate 50 mg PO DAILY 08/25/19 [History] Hx Tetanus, Diphtheria Vaccination/Date Given: Yes Hx Influenza Vaccination/Date Given: Yes Hx Pneumococcal Vaccination/Date Given: Yes Immunizations Up to Date: Yes Travel Risk - International Travel Have you traveled outside of the country in past 3 weeks: No - Coronavirus Screening Are you exhibiting any of the following symptoms?: No Close contact with a COVID-19 positive Pt in past 14-21 Days: No - Review of Systems Constitutional: Fatigue, Malaise, Weakness Eyes: No Symptoms Ears, Nose, & Throat: No Symptoms Respiratory: No Symptoms Cardiac: No Symptoms Abdominal/Gastrointestinal: Nausea, Vomiting Genitourinary Symptoms: No Symptoms Musculoskeletal: Myalgias Skin: No Symptoms Neurological: No Symptoms Psychological: No Symptoms Endocrine: Polyuria, Polydipsia Hematologic/Lymphatic: No Symptoms Immunological/Allergic: No Symptoms - Past Medical History Pertinent Past Medical History: Yes Neurological History: No Pertinent History ENT History: No Pertinent History Cardiac History: Coronary Artery Disease, High Cholesterol, Hypertension Respiratory History: Bronchitis, COPD Endocrine Medical History: Diabetes Type II Musculoskeletal History: Degenerative Disk Disease, Other GI Medical History: GERD History: Renal Disease Psycho-Social History: Anxiety, Depression Female Reproductive Disorders: No Pertinent History Other Medical History: HAS INSULIN PUMP. cardiac STENT PLACEMENT X 2, back problem, renal failure. DKA - Past Surgical History Past Surgical History: Yes Neuro Surgical History: No Pertinent History Cardiac: Cardiac Catheterization, Cardiac Stent Respiratory: No Pertinent History Gastrointestinal: Cholecystectomy Genitourinary: No Pertinent History Musculoskeletal: Other Female Surgical History: Tubal Ligation Other Surgical History: BUNONECTOMY. BACK SURGERY X2 - Social History Smoking Status: Current every day smoker How long have you smoked: years Exposure to second hand smoke: Yes Alcohol Use: None Drug Use: none Patient Lives Alone: No Significant Family History: heart disease, diabetes, hypertension - Female History Hx Now: No (tubal) - Nursing Vital Signs Nursing Vital Signs: Initial Vital Signs Temperature 97.5 F 05/20/20 12:30 Pulse Rate 112 H 05/20/20 12:30 Respiratory Rate 20 05/20/20 12:30 Blood Pressure 132/62 05/20/20 12:30 O2 Sat by Pulse Oximetry 99 05/20/20 12:30 Pain Scale Pain Intensity 0 - Physical Exam General Appearance: no apparent distress, alert Eye Exam: PERRL/EOMI, eyes nml inspection Ears, Nose, Throat Exam: normal ENT inspection, TMs normal, pharyngeal erythema Neck Exam: normal inspection, non-tender, supple Respiratory Exam: normal breath sounds, lungs clear Cardiovascular Exam: normal heart sounds, tachycardia Gastrointestinal/Abdomen Exam: soft, normal bowel sounds, No tenderness, No distention, No guarding Back Exam: normal inspection Extremity Exam: normal inspection, normal range of motion Neurologic Exam: alert, oriented x 3, cooperative, 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, normal mood/affect Skin Exam: normal color SpO2 Interpretation: normal SpO2: 99 O2 Delivery: Room Air - Course Nursing assessment & vital signs reviewed: Yes EKG Interpreted by Me: RATE ([id number]), Sinus Tach, NORMAL AXIS, NORMAL INTERVALS, Non-specific ST Changes Ordered Tests: Active Orders 24 hr Category Date Time Status EKG-ER Only STAT Care 05/20/20 12:47 Active IV Insertion STAT Care 05/20/20 12:47 Active NPO (ED) STAT Care 05/20/20 12:47 Active OBSTR/ACUTE ABDOMEN SERIES Stat Exams 05/20/20 12:49 Completed AMYLASE Stat Lab 05/20/20 13:00 Completed BLOOD CULTURE Stat Lab 05/20/20 13:00 Ordered CBC W DIFF Stat Lab 05/20/20 13:00 Completed CMP Stat Lab 05/20/20 13:00 Completed LIPASE Stat Lab 05/20/20 13:00 Completed Lactic Acid Stat Lab 05/20/20 12:47 Completed Manual Differential NC Stat Lab 05/20/20 13:00 Completed POCT GLUCOSE Stat Lab 05/20/20 12:54 Received TROPONIN Q3H Lab 05/20/20 13:00 Received TROPONIN Q3H Lab 05/20/20 16:00 Ordered TROPONIN Q3H Lab 05/20/20 19:00 Ordered TROPONIN Q3H Lab 05/20/20 22:00 Ordered TROPONIN Q3H Lab 05/21/20 01:00 Ordered UA W/RFX UR CULTURE Stat Lab 05/20/20 12:55 Completed VENOUS BLOOD GAS Stat Lab 05/20/20 12:50 Completed Transfer Order Routine Transfer 05/20/20 Ordered Medication Summary Discontinued Medications Generic Name Dose Route Start Last Admin Trade Name Freq PRN Reason Stop Dose Admin Sodium Chloride 1,000 mls @ 999 mls/hr 05/20/20 12:47 Sodium Chloride 0.9% 1000 Ml IV 05/20/20 13:47 .Q1H1M STA Sodium Chloride Confirm 05/20/20 12:58 Sodium Chloride 0.9% 1000 Ml Administered 05/20/20 12:59 Dose 1,000 mls @ ud .ROUTE .STK-MED ONE Ondansetron HCl 4 mg 05/20/20 12:47 Zofran 4 Mg/2 Ml Vial IV 05/20/20 12:48 STAT ONE Ondansetron HCl Confirm 05/20/20 12:58 Zofran 4 Mg/2 Ml Vial Administered 05/20/20 12:59 Dose 4 mg .ROUTE .STK-MED ONE Promethazine HCl Confirm 05/20/20 13:15 Phenergan 25 Mg Inj Administered 05/20/20 13:16 Dose 25 mg .ROUTE .STK-MED ONE Promethazine HCl 25 mg 05/20/20 13:24 05/20/20 13:25 Phenergan 25 Mg Inj IM 05/20/20 13:25 25 mg STAT ONE Administration Lab/Rad Data: Laboratory Result Diagrams 05/20/20 13:00 05/20/20 13:00 Laboratory Results 05/20/20 05/20/20 05/20/20 Range/Units 13:00 13:00 12:55 WBC 16.5 H (4.0-10.5) K/mm3 RBC 4.25 (4.1-5.4) M/mm3 Hgb 12.9 (12.0-16.0) gm/dl Hct 41.3 (35-47) % MCV 97.2 (78-100) fl MCH 30.4 (26-32) pg MCHC 31.2 L (32-36) g/dl RDW 14.4 H (11.5-14.0) % Plt Count 413 (150-450) K/mm3 MPV 9.4 (7.5-11.0) fl Segmented Neutrophils 92 H (36.0-66.0) % Band Neutrophils 1 (0.0-2.0) % Lymphocytes (Manual) 4 L (24-44) % Monocytes (Manual) 2 (0.0-12.0) % Eosinophils (Manual) 1 (0.00-3.0) % Toxic Granulation 1+ Platelet Estimate NORMAL (NORMAL) RBC Morphology ABNORMAL Anisocytosis 1+ pO2/FiO2 Ratio % VBG pH (7.32-7.42) VBG pCO2 at Pat Temp (42-55) mm/Hg VBG pO2 at Pat Temp (25-40) mm/Hg VBG HCO3 (22-28) meq/L VBG O2 Sat (Moe) (95-100) VBG Base Excess (-2.0-2.0) VBG Hemoglobin VBG Carboxyhemoglobin (0.0-6.9) % T HGB POC Potassium (3.5-5.1) Sodium 133 L (137-145) mmol/L Potassium 5.6 H (3.5-5.1) mmol/L Chloride 96 L (98-107) mmol/L Carbon Dioxide 12 L* (22-30) mmol/L Anion Gap 30.1 H (5-15) MEQ/L BUN 35 H (7-17) mg/dL Creatinine 1.26 H (0.52-1.04) mg/dL Estimated GFR 46.4 ML/MIN Glucose 749 H* (74-106) mg/dL Lactic Acid (0.4-2.0) Calcium 10.3 H (8.4-10.2) mg/dL Total Bilirubin 0.70 (0.2-1.3) mg/dL AST 28 (14-36) U/L ALT 25 (0-35) U/L Alkaline Phosphatase 159 H (38-126) U/L Serum Total Protein 7.1 (6.3-8.2) g/dL Albumin 4.1 (3.5-5.0) g/dL Amylase 69 (30-110) U/L Lipase 54 (23-300) U/L Urine Color YELLOW (YELLOW) Urine Appearance CLEAR (CLEAR) Urine pH 6.0 (5-6) Ur Specific [place] 1.020 (1.005-1.025) Urine Protein NEGATIVE (Negative) Urine Ketones SMALL (NEGATIVE) Urine Blood NEGATIVE (0-5) Tato/ul Urine Nitrite NEGATIVE (NEGATIVE) Urine Bilirubin NEGATIVE (NEGATIVE) Urine Urobilinogen NEGATIVE (0-1) mg/dL Ur Leukocyte Esterase NEGATIVE (NEGATIVE) Urine WBC (Auto) NONE (0-5) /HPF Urine RBC (Auto) 0-2 (0-2) /HPF U Hyaline Cast (Auto) 3-5 (0-2) /LPF U Epithel Cells (Auto) NONE (FEW) /HPF Urine Bacteria (Auto) NONE (NEGATIVE) /HPF Urine Culture Reflexed NO (NO) Urine Glucose >=500 (NEGATIVE) mg/dL 05/20/20 05/20/20 Range/Units 12:50 12:47 WBC (4.0-10.5) K/mm3 RBC (4.1-5.4) M/mm3 Hgb (12.0-16.0) gm/dl Hct (35-47) % MCV (78-100) fl MCH (26-32) pg MCHC (32-36) g/dl RDW (11.5-14.0) % Plt Count (150-450) K/mm3 MPV (7.5-11.0) fl Segmented Neutrophils (36.0-66.0) % Band Neutrophils (0.0-2.0) % Lymphocytes (Manual) (24-44) % Monocytes (Manual) (0.0-12.0) % Eosinophils (Manual) (0.00-3.0) % Toxic Granulation Platelet Estimate (NORMAL) RBC Morphology Anisocytosis pO2/FiO2 Ratio 21.0 % VBG pH 7.24 L* (7.32-7.42) VBG pCO2 at Pat Temp 33 L (42-55) mm/Hg VBG pO2 at Pat Temp 46 H (25-40) mm/Hg VBG HCO3 14.1 L* (22-28) meq/L VBG O2 Sat (Moe) 77.8 L (95-100) VBG Base Excess -12.2 L (-2.0-2.0) VBG Hemoglobin 13.1 VBG Carboxyhemoglobin 4.1 (0.0-6.9) % T HGB POC Potassium 5.6 H (3.5-5.1) Sodium (137-145) mmol/L Potassium (3.5-5.1) mmol/L Chloride (98-107) mmol/L Carbon Dioxide (22-30) mmol/L Anion Gap (5-15) MEQ/L BUN (7-17) mg/dL Creatinine (0.52-1.04) mg/dL Estimated GFR ML/MIN Glucose (74-106) mg/dL Lactic Acid 3.3 H (0.4-2.0) Calcium (8.4-10.2) mg/dL Total Bilirubin (0.2-1.3) mg/dL AST (14-36) U/L ALT (0-35) U/L Alkaline Phosphatase (38-126) U/L Serum Total Protein (6.3-8.2) g/dL Albumin (3.5-5.0) g/dL Amylase (30-110) U/L Lipase (23-300) U/L Urine Color (YELLOW) Urine Appearance (CLEAR) Urine pH (5-6) Ur Specific [place] (1.005-1.025) Urine Protein (Negative) Urine Ketones (NEGATIVE) Urine Blood (0-5) Tato/ul Urine Nitrite (NEGATIVE) Urine Bilirubin (NEGATIVE) Urine Urobilinogen (0-1) mg/dL Ur Leukocyte Esterase (NEGATIVE) Urine WBC (Auto) (0-5) /HPF Urine RBC (Auto) (0-2) /HPF U Hyaline Cast (Auto) (0-2) /LPF U Epithel Cells (Auto) (FEW) /HPF Urine Bacteria (Auto) (NEGATIVE) /HPF Urine Culture Reflexed (NO) Urine Glucose (NEGATIVE) mg/dL - Progress Progress: improved, re-examined Progress Note: 05/20/20 14:07 She is given fluid bolus along with promethazine. Work-up showed findings consistent with DKA with a pH of 7.2, bicarb 12 and gap of greater than 30 and blood sugar in 740s. She also has mild COLLEEN. We will continue with fluids and started on insulin drip per DKA protocol. She has a potassium of 5.6 which I believe with improved with insulin. Had a lactate of 3.3 which is secondary to DKA no obvious focus of infection. Discussed with and patient is admitted to ICU. - Departure Departure Disposition: In-patient Admission Clinical Impression: COLLEEN (acute kidney injury) DKA (diabetic ketoacidoses) Qualifiers: Diabetes mellitus type: type 1 Diabetes mellitus complication detail: without coma Qualified Code(s): E10.10 - Type 1 diabetes mellitus with ketoacidosis without coma Condition: Stable Critical Care Time: Yes Critical Care Time(excluding separately billable procedures): Critical 30-74 mins Referrals: LYUDMILA ARIAS MD [Primary Care Provider] -
--- NOTE | 2020-05-20 13:49 | XRAY ---
Indication: Vomiting. Comparison: Chest exam August 25, 2019. 2 view abdomen nonacute and nonobstructed with mild fecal debris predominantly in the ascending/transverse colon, cholecystotomy clips, splenic calcified granulomas, CT proven right renal micro-calculi, and pelvic vascular calcifications. Osseous structures intact with moderate lower lumbar degenerative spondylosis and mild dextroscoliosis centered at L2. Single frontal chest remains hyperinflated and clear. Heart is not enlarged. Bony factors intact. Impression: Nonacute abdomen with chronic features. Continued nonacute one view chest.
[2020-05-20] MEDS ORDERED: HUMULIN R 100 UNIT in Sodium Chloride 0.9% 100 ML IVPB 100 ML IV ONE (14:47)
[2020-05-20] MEDS ORDERED: HUMULIN R ONE (14:49)
[2020-05-20] MEDS ORDERED: HUMULIN R 100 UNIT in Sodium Chloride 0.9% 100 ML IVPB 100 ML IV SCH (15:00)
[2020-05-20] MEDS ORDERED: DUONEB 0.5-3 MG/3 ml Neb IH PRN (16:16)
[2020-05-20] MEDS ORDERED: TYLENOL 325 MG PO PRN (16:16)
[2020-05-20] MEDS ORDERED: Zofran 4 MG/2 ML VIAL IV PRN (16:16)
[2020-05-20 16:28] LABS: MAGNESIUM 1.8 mg/dL (1.6-2.3)
[2020-05-20] MEDS ORDERED: Sodium Chloride 0.9% 1000 ML 1,000 ML IV SCH ×2 (16:30→16:45)
[2020-05-20] MEDS ORDERED: Phenergan 25 MG INJ IM PRN (17:30)
[2020-05-20] MEDS ORDERED: Ventolin Hfa MDI IH PRN (17:37)
[2020-05-20] MEDS ORDERED: VENTOLIN COMMON CANISTER IH PRN (17:44)
[2020-05-20] MEDS ORDERED: Nicoderm CQ 21 MG TOP ONE (18:00)
[2020-05-20] MEDS ORDERED: Lantus Insulin SQ SCH (18:00)
[2020-05-20] MEDS: Cyclobenzaprine 10 MG PO SCH ×2 (18:01→22:10)
[2020-05-20] MEDS: Lopressor 50 MG PO SCH (18:01)
[2020-05-20] MEDS: PROTONIX 40 MG IV IV SCH (18:02)
[2020-05-20 18:33] LABS: ANION GAP 21.9 MEQ/L (5-15); Calcium 9.8 mg/dL (8.4-10.2); Creatinine 1 1.16 mg/dL (0.52-1.04); Potassium 4.4 mmol/L (3.5-5.1)
--- NOTE | 2020-05-20 20:20 | PCM.HP ---
History of Present Illness - Chief Complaint Chief Complaint: DKA, COLLEEN History of Present Illness: is a 59 years old female with history of insulin-dependent diabetes mellitus on insulin pump presented in the ER with chief complaint of not feeling well for the last 2 days with poorly controlled blood sugar. Patient report usual blood sugar runs in 200s. This morning she started to get sick, nauseated and vomited multiple times, nonprojectile, nonbilious and now feels weak fatigu ed and tired with no energy. Blood sugar prior to arrival was 570s and then reading high on subsequent check. Patient does report history of DKA's in the past and getting sick at her stomach with DKA. Denies any abdominal pain fever chills cough or shortness of breath. Denies any chest pain or palpitations. Denies any sick contact. - Review of Systems Constitutional: Fever, No Chills Eyes: No Symptoms Ears, Nose, & Throat: No Symptoms Respiratory: No Cough, No Short Of Breath Cardiac: No Chest Pain, No Edema, No Syncope Abdominal/Gastrointestinal: Nausea, Vomiting, No Abdominal Pain, No Diarrhea Genitourinary Symptoms: No Dysuria Musculoskeletal: No Back Pain, No Neck Pain Skin: No Rash Neurological: No Dizziness, No Focal Weakness, No Sensory Changes Psychological: No Symptoms Endocrine: No Symptoms Hematologic/Lymphatic: No Symptoms Immunological/Allergic: No Symptoms Medications & Allergies Home Medications: Home Medication List Insulin Lispro [Humalog] 1 unit SQ UD 11/14/16 [History Confirmed 05/20/20] PANTOPRAZOLE 40 mg Tablet [Protonix 40MG Tablet] 40 mg PO DAILY 11/14/16 [History Confirmed 05/20/20] Promethazine HCl 25 mg [Phenergan 25 mg] 25 mg PO Q6HPRN PRN 11/14/16 [History Confirmed 05/20/20] Albuterol Sulfate [Albuterol Sulfate Hfa] 2 puff IH Q4-6HPRN PRN #1 [email or web address] 07/18/17 [Rx Confirmed 05/20/20] Cyclobenzaprine HCl 10 mg [Cyclobenzaprine 10 MG] 10 mg PO QID 02/13/19 [History Confirmed 05/20/20] Alprazolam 1 mg [Xanax 1 mg] 1 mg PO HS 08/25/19 [History Confirmed 05/20/20] Atorvastatin Calcium 40 mg PO HS 08/25/19 [History Confirmed 05/20/20] Ergocalciferol (Vitamin D2) [Vitamin D2] 50,000 unit PO MO 08/25/19 [History Confirmed 05/20/20] Metoprolol Tartrate 50 mg PO DAILY 08/25/19 [History Confirmed 05/20/20] Allergies/Adverse Reactions: Allergies Allergy/AdvReac Type Severity Reaction Status Date / Time orphenadrine citrate Allergy Intermediate Verified 05/20/20 16:58 [From Norflex] adhesive tape Allergy Verified 05/20/20 16:58 hydrocodone bitartrate AdvReac Mild Verified 05/20/20 16:58 [From [place]] levofloxacin [From Levaquin] AdvReac Mild Nausea and Verified 05/20/20 16:58 Vomiting - Past Medical History Past Medical History: Yes Neurological History: No Pertinent History ENT History: No Pertinent History Cardiac History: Coronary Artery Disease, High Cholesterol, Hypertension Respiratory History: Bronchitis, COPD Endocrine Medical History: Diabetes Type II Musculoskelatal History: Degenerative Disk Disease, Other GI Medical History: GERD History: Renal Disease Pyscho-Social History: Anxiety, Depression Reproductive Disorders: No Pertinent History Comment: HAS INSULIN PUMP. cardiac STENT PLACEMENT X 2, back problem, renal failure. DKA, SI JOINT PULLED - Female History Are you now?: No - Past Surgical History Past Surgical History: Yes Neuro Surgical History: No Pertinent History Cardiac History: Cardiac Catheterization, Cardiac Stent Respiratory Surgery: No Pertinent History GI Surgical History: Cholecystectomy Genitourinary Surgical Hx: No Pertinent History Musculskeletal Surgical Hx: Other Female Surgical History: Tubal Ligation Other Surgical History: BUNONECTOMY. BACK SURGERY X2 - Social History Smoking Status: Current every day smoker How long have you smoked: 30 YEARS Exposure to second hand smoke: Yes Alcohol: None Drug Use: none Significant Family History: heart disease, diabetes, hypertension - Physical Exam Vital Signs: Vital Signs - 24 hr Temp Pulse Resp BP Pulse Ox 05/20/20 20:00 97.7 F 91 H 19 142/70 96 05/20/20 18:45 107 H 19 148/70 97 05/20/20 18:15 115 H 21 166/75 97 05/20/20 17:45 117 H 18 171/81 98 05/20/20 17:30 116 H 18 176/86 05/20/20 17:15 119 H 24 135/65 05/20/20 17:00 120 H 20 172/83 05/20/20 16:21 97.6 F 128 H 22 182/83 100 05/20/20 16:20 124 H 22 99 05/20/20 16:12 97.6 F 128 H 23 182/83 100 05/20/20 16:00 123 H 18 133/53 99 05/20/20 15:04 116 H 22 152/70 98 05/20/20 14:08 99 05/20/20 14:04 112 H 24 98 05/20/20 12:30 97.5 F 112 H 20 132/62 99 General Appearance: no apparent distress, moderate distress, alert Neurologic Exam: alert, oriented x 3, cooperative, normal mood/affect, nml cerebellar function, nml station & gait, sensation nml, No motor deficits Eye Exam: PERRL/EOMI, eyes nml inspection Ears, Nose, Throat Exam: normal ENT inspection, TMs normal, pharynx normal, moist mucous membranes Neck Exam: normal inspection, non-tender, supple, full range of motion Respiratory Exam: normal breath sounds, lungs clear, No respiratory distress Cardiovascular Exam: regular rate/rhythm, normal heart sounds, normal peripheral pulses Gastrointestinal/Abdomen Exam: soft, normal bowel sounds, No tenderness, No mass Back Exam: normal inspection, normal range of motion, No CVA tenderness, No vertebral tenderness Extremity Exam: normal inspection, normal range of motion, pelvis stable Skin Exam: normal color, warm, dry, No rash Lymphatic Exam: No adenopathy Results - Labs Lab/Micro Results: Lab Results-Last 24 Hours 05/20/20 05/20/20 05/20/20 Range/Units 12:47 12:50 12:55 WBC (4.0-10.5) K/mm3 RBC (4.1-5.4) M/mm3 Hgb (12.0-16.0) gm/dl Hct (35-47) % MCV (78-100) fl MCH (26-32) pg MCHC (32-36) g/dl RDW (11.5-14.0) % Plt Count (150-450) K/mm3 MPV (7.5-11.0) fl Segmented Neutrophils (36.0-66.0) % Band Neutrophils (0.0-2.0) % Lymphocytes (Manual) (24-44) % Monocytes (Manual) (0.0-12.0) % Eosinophils (Manual) (0.00-3.0) % Toxic Granulation Platelet Estimate (NORMAL) RBC Morphology Anisocytosis pO2/FiO2 Ratio 21.0 % VBG pH 7.24 L* (7.32-7.42) VBG pCO2 at Pat Temp 33 L (42-55) mm/Hg VBG pO2 at Pat Temp 46 H (25-40) mm/Hg VBG HCO3 14.1 L* (22-28) meq/L VBG O2 Sat (Moe) 77.8 L (95-100) VBG Base Excess -12.2 L (-2.0-2.0) VBG Hemoglobin 13.1 VBG Carboxyhemoglobin 4.1 (0.0-6.9) % T HGB POC Potassium 5.6 H (3.5-5.1) Sodium (137-145) mmol/L Potassium (3.5-5.1) mmol/L Chloride (98-107) mmol/L Carbon Dioxide (22-30) mmol/L Anion Gap (5-15) MEQ/L BUN (7-17) mg/dL Creatinine (0.52-1.04) mg/dL Estimated GFR ML/MIN Glucose (74-106) mg/dL POC Glucometer (74 to 106) mg/dL Hemoglobin A1c (4.5-6.0) % Lactic Acid 3.3 H (0.4-2.0) Calcium (8.4-10.2) mg/dL Magnesium (1.6-2.3) mg/dL Total Bilirubin (0.2-1.3) mg/dL AST (14-36) U/L ALT (0-35) U/L Alkaline Phosphatase (38-126) U/L Troponin I (0.000-0.034) ng/mL Serum Total Protein (6.3-8.2) g/dL Albumin (3.5-5.0) g/dL Amylase (30-110) U/L Lipase (23-300) U/L Urine Color YELLOW (YELLOW) Urine Appearance CLEAR (CLEAR) Urine pH 6.0 (5-6) Ur Specific [place] 1.020 (1.005-1.025) Urine Protein NEGATIVE (Negative) Urine Ketones SMALL (NEGATIVE) Urine Blood NEGATIVE (0-5) Tato/ul Urine Nitrite NEGATIVE (NEGATIVE) Urine Bilirubin NEGATIVE (NEGATIVE) Urine Urobilinogen NEGATIVE (0-1) mg/dL Ur Leukocyte Esterase NEGATIVE (NEGATIVE) Urine WBC (Auto) NONE (0-5) /HPF Urine RBC (Auto) 0-2 (0-2) /HPF U Hyaline Cast (Auto) 3-5 (0-2) /LPF U Epithel Cells (Auto) NONE (FEW) /HPF Urine Bacteria (Auto) NONE (NEGATIVE) /HPF Urine Culture Reflexed NO (NO) Urine Glucose >=500 (NEGATIVE) mg/dL SARS-CoV-2 (PCR) (NEGATIVE) 05/20/20 05/20/20 05/20/20 Range/Units 13:00 13:00 13:00 WBC 16.5 H (4.0-10.5) K/mm3 RBC 4.25 (4.1-5.4) M/mm3 Hgb 12.9 (12.0-16.0) gm/dl Hct 41.3 (35-47) % MCV 97.2 (78-100) fl MCH 30.4 (26-32) pg MCHC 31.2 L (32-36) g/dl RDW 14.4 H (11.5-14.0) % Plt Count 413 (150-450) K/mm3 MPV 9.4 (7.5-11.0) fl Segmented Neutrophils 92 H (36.0-66.0) % Band Neutrophils 1 (0.0-2.0) % Lymphocytes (Manual) 4 L (24-44) % Monocytes (Manual) 2 (0.0-12.0) % Eosinophils (Manual) 1 (0.00-3.0) % Toxic Granulation 1+ Platelet Estimate NORMAL (NORMAL) RBC Morphology ABNORMAL Anisocytosis 1+ pO2/FiO2 Ratio % VBG pH (7.32-7.42) VBG pCO2 at Pat Temp (42-55) mm/Hg VBG pO2 at Pat Temp (25-40) mm/Hg VBG HCO3 (22-28) meq/L VBG O2 Sat (Moe) (95-100) VBG Base Excess (-2.0-2.0) VBG Hemoglobin VBG Carboxyhemoglobin (0.0-6.9) % T HGB POC Potassium (3.5-5.1) Sodium 133 L (137-145) mmol/L Potassium 5.6 H (3.5-5.1) mmol/L Chloride 96 L (98-107) mmol/L Carbon Dioxide 12 L* (22-30) mmol/L Anion Gap 30.1 H (5-15) MEQ/L BUN 35 H (7-17) mg/dL Creatinine 1.26 H (0.52-1.04) mg/dL Estimated GFR 46.4 ML/MIN Glucose 749 H* (74-106) mg/dL POC Glucometer (74 to 106) mg/dL Hemoglobin A1c (4.5-6.0) % Lactic Acid (0.4-2.0) Calcium 10.3 H (8.4-10.2) mg/dL Magnesium (1.6-2.3) mg/dL Total Bilirubin 0.70 (0.2-1.3) mg/dL AST 28 (14-36) U/L ALT 25 (0-35) U/L Alkaline Phosphatase 159 H (38-126) U/L Troponin I < 0.012 (0.000-0.034) ng/mL Serum Total Protein 7.1 (6.3-8.2) g/dL Albumin 4.1 (3.5-5.0) g/dL Amylase 69 (30-110) U/L Lipase 54 (23-300) U/L Urine Color (YELLOW) Urine Appearance (CLEAR) Urine pH (5-6) Ur Specific [place] (1.005-1.025) Urine Protein (Negative) Urine Ketones (NEGATIVE) Urine Blood (0-5) Tato/ul Urine Nitrite (NEGATIVE) Urine Bilirubin (NEGATIVE) Urine Urobilinogen (0-1) mg/dL Ur Leukocyte Esterase (NEGATIVE) Urine WBC (Auto) (0-5) /HPF Urine RBC (Auto) (0-2) /HPF U Hyaline Cast (Auto) (0-2) /LPF U Epithel Cells (Auto) (FEW) /HPF Urine Bacteria (Auto) (NEGATIVE) /HPF Urine Culture Reflexed (NO) Urine Glucose (NEGATIVE) mg/dL SARS-CoV-2 (PCR) (NEGATIVE) 05/20/20 05/20/20 05/20/20 Range/Units 14:12 15:10 15:50 WBC (4.0-10.5) K/mm3 RBC (4.1-5.4) M/mm3 Hgb (12.0-16.0) gm/dl Hct (35-47) % MCV (78-100) fl MCH (26-32) pg MCHC (32-36) g/dl RDW (11.5-14.0) % Plt Count (150-450) K/mm3 MPV (7.5-11.0) fl Segmented Neutrophils (36.0-66.0) % Band Neutrophils (0.0-2.0) % Lymphocytes (Manual) (24-44) % Monocytes (Manual) (0.0-12.0) % Eosinophils (Manual) (0.00-3.0) % Toxic Granulation Platelet Estimate (NORMAL) RBC Morphology Anisocytosis pO2/FiO2 Ratio % VBG pH (7.32-7.42) VBG pCO2 at Pat Temp (42-55) mm/Hg VBG pO2 at Pat Temp (25-40) mm/Hg VBG HCO3 (22-28) meq/L VBG O2 Sat (Moe) (95-100) VBG Base Excess (-2.0-2.0) VBG Hemoglobin VBG Carboxyhemoglobin (0.0-6.9) % T HGB POC Potassium (3.5-5.1) Sodium (137-145) mmol/L Potassium (3.5-5.1) mmol/L Chloride (98-107) mmol/L Carbon Dioxide (22-30) mmol/L Anion Gap (5-15) MEQ/L BUN (7-17) mg/dL Creatinine (0.52-1.04) mg/dL Estimated GFR ML/MIN Glucose (74-106) mg/dL POC Glucometer (74 to 106) mg/dL Hemoglobin A1c 9.30 H (4.5-6.0) % Lactic Acid 2.2 H (0.4-2.0) Calcium (8.4-10.2) mg/dL Magnesium (1.6-2.3) mg/dL Total Bilirubin (0.2-1.3) mg/dL AST (14-36) U/L ALT (0-35) U/L Alkaline Phosphatase (38-126) U/L Troponin I (0.000-0.034) ng/mL Serum Total Protein (6.3-8.2) g/dL Albumin (3.5-5.0) g/dL Amylase (30-110) U/L Lipase (23-300) U/L Urine Color (YELLOW) Urine Appearance (CLEAR) Urine pH (5-6) Ur Specific [place] (1.005-1.025) Urine Protein (Negative) Urine Ketones (NEGATIVE) Urine Blood (0-5) Tato/ul Urine Nitrite (NEGATIVE) Urine Bilirubin (NEGATIVE) Urine Urobilinogen (0-1) mg/dL Ur Leukocyte Esterase (NEGATIVE) Urine WBC (Auto) (0-5) /HPF Urine RBC (Auto) (0-2) /HPF U Hyaline Cast (Auto) (0-2) /LPF U Epithel Cells (Auto) (FEW) /HPF Urine Bacteria (Auto) (NEGATIVE) /HPF Urine Culture Reflexed (NO) Urine Glucose (NEGATIVE) mg/dL SARS-CoV-2 (PCR) NEGATIVE (NEGATIVE) 05/20/20 05/20/20 05/20/20 Range/Units 16:00 16:13 17:10 WBC (4.0-10.5) K/mm3 RBC (4.1-5.4) M/mm3 Hgb (12.0-16.0) gm/dl Hct (35-47) % MCV (78-100) fl MCH (26-32) pg MCHC (32-36) g/dl RDW (11.5-14.0) % Plt Count (150-450) K/mm3 MPV (7.5-11.0) fl Segmented Neutrophils (36.0-66.0) % Band Neutrophils (0.0-2.0) % Lymphocytes (Manual) (24-44) % Monocytes (Manual) (0.0-12.0) % Eosinophils (Manual) (0.00-3.0) % Toxic Granulation Platelet Estimate (NORMAL) RBC Morphology Anisocytosis pO2/FiO2 Ratio % VBG pH (7.32-7.42) VBG pCO2 at Pat Temp (42-55) mm/Hg VBG pO2 at Pat Temp (25-40) mm/Hg VBG HCO3 (22-28) meq/L VBG O2 Sat (Moe) (95-100) VBG Base Excess (-2.0-2.0) VBG Hemoglobin VBG Carboxyhemoglobin (0.0-6.9) % T HGB POC Potassium (3.5-5.1) Sodium (137-145) mmol/L Potassium (3.5-5.1) mmol/L Chloride (98-107) mmol/L Carbon Dioxide (22-30) mmol/L Anion Gap (5-15) MEQ/L BUN (7-17) mg/dL Creatinine (0.52-1.04) mg/dL Estimated GFR ML/MIN Glucose 614 H* (74-106) mg/dL POC Glucometer 494 H (74 to 106) mg/dL Hemoglobin A1c (4.5-6.0) % Lactic Acid (0.4-2.0) Calcium (8.4-10.2) mg/dL Magnesium 1.8 (1.6-2.3) mg/dL Total Bilirubin (0.2-1.3) mg/dL AST (14-36) U/L ALT (0-35) U/L Alkaline Phosphatase (38-126) U/L Troponin I < 0.012 (0.000-0.034) ng/mL Serum Total Protein (6.3-8.2) g/dL Albumin (3.5-5.0) g/dL Amylase (30-110) U/L Lipase (23-300) U/L Urine Color (YELLOW) Urine Appearance (CLEAR) Urine pH (5-6) Ur Specific [place] (1.005-1.025) Urine Protein (Negative) Urine Ketones (NEGATIVE) Urine Blood (0-5) Tato/ul Urine Nitrite (NEGATIVE) Urine Bilirubin (NEGATIVE) Urine Urobilinogen (0-1) mg/dL Ur Leukocyte Esterase (NEGATIVE) Urine WBC (Auto) (0-5) /HPF Urine RBC (Auto) (0-2) /HPF U Hyaline Cast (Auto) (0-2) /LPF U Epithel Cells (Auto) (FEW) /HPF Urine Bacteria (Auto) (NEGATIVE) /HPF Urine Culture Reflexed (NO) Urine Glucose (NEGATIVE) mg/dL SARS-CoV-2 (PCR) (NEGATIVE) 05/20/20 05/20/20 05/20/20 Range/Units 18:00 18:00 18:01 WBC (4.0-10.5) K/mm3 RBC (4.1-5.4) M/mm3 Hgb (12.0-16.0) gm/dl Hct (35-47) % MCV (78-100) fl MCH (26-32) pg MCHC (32-36) g/dl RDW (11.5-14.0) % Plt Count (150-450) K/mm3 MPV (7.5-11.0) fl Segmented Neutrophils (36.0-66.0) % Band Neutrophils (0.0-2.0) % Lymphocytes (Manual) (24-44) % Monocytes (Manual) (0.0-12.0) % Eosinophils (Manual) (0.00-3.0) % Toxic Granulation Platelet Estimate (NORMAL) RBC Morphology Anisocytosis pO2/FiO2 Ratio % VBG pH (7.32-7.42) VBG pCO2 at Pat Temp (42-55) mm/Hg VBG pO2 at Pat Temp (25-40) mm/Hg VBG HCO3 (22-28) meq/L VBG O2 Sat (Moe) (95-100) VBG Base Excess (-2.0-2.0) VBG Hemoglobin VBG Carboxyhemoglobin (0.0-6.9) % T HGB POC Potassium (3.5-5.1) Sodium 139 (137-145) mmol/L Potassium 4.4 D (3.5-5.1) mmol/L Chloride 105 (98-107) mmol/L Carbon Dioxide 16 L* (22-30) mmol/L Anion Gap 21.9 H (5-15) MEQ/L BUN 36 H (7-17) mg/dL Creatinine 1.16 H (0.52-1.04) mg/dL Estimated GFR 51.0 ML/MIN Glucose 483 H (74-106) mg/dL POC Glucometer 432 H (74 to 106) mg/dL Hemoglobin A1c (4.5-6.0) % Lactic Acid (0.4-2.0) Calcium 9.8 (8.4-10.2) mg/dL Magnesium (1.6-2.3) mg/dL Total Bilirubin (0.2-1.3) mg/dL AST (14-36) U/L ALT (0-35) U/L Alkaline Phosphatase (38-126) U/L Troponin I < 0.012 (0.000-0.034) ng/mL Serum Total Protein (6.3-8.2) g/dL Albumin (3.5-5.0) g/dL Amylase (30-110) U/L Lipase (23-300) U/L Urine Color (YELLOW) Urine Appearance (CLEAR) Urine pH (5-6) Ur Specific [place] (1.005-1.025) Urine Protein (Negative) Urine Ketones (NEGATIVE) Urine Blood (0-5) Tato/ul Urine Nitrite (NEGATIVE) Urine Bilirubin (NEGATIVE) Urine Urobilinogen (0-1) mg/dL Ur Leukocyte Esterase (NEGATIVE) Urine WBC (Auto) (0-5) /HPF Urine RBC (Auto) (0-2) /HPF U Hyaline Cast (Auto) (0-2) /LPF U Epithel Cells (Auto) (FEW) /HPF Urine Bacteria (Auto) (NEGATIVE) /HPF Urine Culture Reflexed (NO) Urine Glucose (NEGATIVE) mg/dL SARS-CoV-2 (PCR) (NEGATIVE) 05/20/20 05/20/20 Range/Units 18:59 20:09 WBC (4.0-10.5) K/mm3 RBC (4.1-5.4) M/mm3 Hgb (12.0-16.0) gm/dl Hct (35-47) % MCV (78-100) fl MCH (26-32) pg MCHC (32-36) g/dl RDW (11.5-14.0) % Plt Count (150-450) K/mm3 MPV (7.5-11.0) fl Segmented Neutrophils (36.0-66.0) % Band Neutrophils (0.0-2.0) % Lymphocytes (Manual) (24-44) % Monocytes (Manual) (0.0-12.0) % Eosinophils (Manual) (0.00-3.0) % Toxic Granulation Platelet Estimate (NORMAL) RBC Morphology Anisocytosis pO2/FiO2 Ratio % VBG pH (7.32-7.42) VBG pCO2 at Pat Temp (42-55) mm/Hg VBG pO2 at Pat Temp (25-40) mm/Hg VBG HCO3 (22-28) meq/L VBG O2 Sat (Moe) (95-100) VBG Base Excess (-2.0-2.0) VBG Hemoglobin VBG Carboxyhemoglobin (0.0-6.9) % T HGB POC Potassium (3.5-5.1) Sodium (137-145) mmol/L Potassium (3.5-5.1) mmol/L Chloride (98-107) mmol/L Carbon Dioxide (22-30) mmol/L Anion Gap (5-15) MEQ/L BUN (7-17) mg/dL Creatinine (0.52-1.04) mg/dL Estimated GFR ML/MIN Glucose (74-106) mg/dL POC Glucometer 405 H 302 H (74 to 106) mg/dL Hemoglobin A1c (4.5-6.0) % Lactic Acid (0.4-2.0) Calcium (8.4-10.2) mg/dL Magnesium (1.6-2.3) mg/dL Total Bilirubin (0.2-1.3) mg/dL AST (14-36) U/L ALT (0-35) U/L Alkaline Phosphatase (38-126) U/L Troponin I (0.000-0.034) ng/mL Serum Total Protein (6.3-8.2) g/dL Albumin (3.5-5.0) g/dL Amylase (30-110) U/L Lipase (23-300) U/L Urine Color (YELLOW) Urine Appearance (CLEAR) Urine pH (5-6) Ur Specific [place] (1.005-1.025) Urine Protein (Negative) Urine Ketones (NEGATIVE) Urine Blood (0-5) Tato/ul Urine Nitrite (NEGATIVE) Urine Bilirubin (NEGATIVE) Urine Urobilinogen (0-1) mg/dL Ur Leukocyte Esterase (NEGATIVE) Urine WBC (Auto) (0-5) /HPF Urine RBC (Auto) (0-2) /HPF U Hyaline Cast (Auto) (0-2) /LPF U Epithel Cells (Auto) (FEW) /HPF Urine Bacteria (Auto) (NEGATIVE) /HPF Urine Culture Reflexed (NO) Urine Glucose (NEGATIVE) mg/dL SARS-CoV-2 (PCR) (NEGATIVE) Accuchecks Date 05/20/20 Date 05/20/20 Time 15:57 Time 15:57 - Radiology Impressions Radiology Exams & Impressions: Radiology Procedures Category Date Time Status OBSTR/ACUTE ABDOMEN SERIES Stat Exams 05/20/20 12:49 Completed - Other Procedures and Tests Respiratory Therapy 05/20/20 16:16 Oxygen Nasal Cannula 2 lpm 05/20/20 16:28 Respiratory Therapy Assessment DAILY Assessment/Plan (1) DKA (diabetic ketoacidoses) Current Visit: Yes Status: Acute Qualifiers: Diabetes mellitus type: type 1 Diabetes mellitus complication detail: without coma Qualified Code(s): E10.10 - Type 1 diabetes mellitus with ketoacidosis without coma Assessment & Plan: Chief Complaint Diagnosis DKA, COLLEEN Allergies Allergy/AdvReac Type Severity Reaction Status Date / Time orphenadrine citrate Allergy Intermediate Verified 05/20/20 16:58 [From Norflex] adhesive tape Allergy Verified 05/20/20 16:58 hydrocodone bitartrate AdvReac Mild Verified 05/20/20 16:58 [From [place]] levofloxacin [From Levaquin] AdvReac Mild Nausea and Verified 05/20/20 16:58 Vomiting Vital Signs (Last 24 hours) Temp Pulse Resp BP Pulse Ox 05/20/20 20:00 97.7 F 91 H 19 142/70 96 05/20/20 18:45 107 H 19 148/70 97 05/20/20 18:15 115 H 21 166/75 97 05/20/20 17:45 117 H 18 171/81 98 05/20/20 17:30 116 H 18 176/86 05/20/20 17:15 119 H 24 135/65 05/20/20 17:00 120 H 20 172/83 05/20/20 16:21 97.6 F 128 H 22 182/83 100 05/20/20 16:20 124 H 22 99 05/20/20 16:12 97.6 F 128 H 23 182/83 100 05/20/20 16:00 123 H 18 133/53 99 05/20/20 15:04 116 H 22 152/70 98 05/20/20 14:08 99 05/20/20 14:04 112 H 24 98 05/20/20 12:30 97.5 F 112 H 20 132/62 99 Current Medications Generic Name Dose Route Start Last Admin Trade Name Freq PRN Reason Stop Dose Admin Acetaminophen 650 mg 05/20/20 16:16 Tylenol 325 Mg PO 06/19/20 16:15 Q4H PRN PRN PAIN AND/OR FEVER Albuterol Sulfate 2 puff 05/20/20 17:44 Ventolin Common Canister IH 06/19/20 17:43 Q4H PRN PRN cough or wheeze Albuterol/Ipratropium 3 ml 05/20/20 16:16 Duoneb 0.5-3 Mg/3 Ml Neb IH 06/19/20 16:15 Q4HPRN PRN SHORTNESS OF BREATH/WHEEZING Alprazolam 1 mg 05/20/20 22:00 Xanax 1 Mg PO 06/19/20 21:59 HS NISSA Cyclobenzaprine HCl 10 mg 05/20/20 18:00 05/20/20 18:01 Cyclobenzaprine 10 Mg PO 06/19/20 17:59 10 mg QID NISSA Administration Ergocalciferol 50,000 unit 05/25/20 10:00 Vitamin D2 PO 06/24/20 09:59 MO NISSA Insulin Human Regular 100 unit 100 mls @ 6.3 mls/hr 05/20/20 15:00 05/20/20 19:00 / Sodium Chloride IV 06/19/20 14:59 5.3 mls/hr .[id number] NISSA 5.3 mls/hr Infusion Sodium Chloride 1,000 mls @ 150 mls/hr 05/20/20 16:45 05/20/20 16:55 Sodium Chloride 0.9% 1000 Ml IV 06/19/20 16:44 150 mls/hr .[id number] NISSA Administration Insulin Human Lispro 0 unit 05/20/20 17:45 Humalog SQ 06/19/20 17:44 UD PRN Metoprolol Tartrate 50 mg 05/20/20 18:00 05/20/20 18:01 Lopressor 50 Mg PO 06/19/20 17:59 50 mg DAILY NISSA Administration Pantoprazole Sodium 40 mg 05/20/20 17:00 05/20/20 18:02 Protonix 40 Mg Iv IV 06/19/20 16:59 40 mg Q24H10 NISSA Administration Promethazine HCl 25 mg 05/20/20 17:30 Phenergan 25 Mg Inj IM 06/19/20 17:29 Q6H PRN PRN NAUSEA/VOMITING Simvastatin 40 mg 05/20/20 22:00 Zocor 20mg PO 06/19/20 21:59 HS NISSA Discontinued Medications Generic Name Dose Route Start Last Admin Trade Name Freq PRN Reason Stop Dose Admin Sodium Chloride 1,000 mls @ 999 mls/hr 05/20/20 12:47 05/20/20 15:53 Sodium Chloride 0.9% 1000 Ml IV 05/20/20 13:47 Infused .Q1H1M STA Infusion Sodium Chloride Confirm 05/20/20 12:58 Sodium Chloride 0.9% 1000 Ml Administered 05/20/20 12:59 Dose 1,000 mls @ ud .ROUTE .STK-MED ONE Insulin Human Regular 100 unit 100 mls @ ud 05/20/20 14:47 / Sodium Chloride IV 05/20/20 14:48 .STK-MED ONE Sodium Chloride Confirm 05/20/20 15:45 Sodium Chloride 0.9% 1000 Ml Administered 05/20/20 15:46 Dose 1,000 mls @ ud .ROUTE .STK-MED ONE Insulin Human Regular Confirm 05/20/20 14:49 Humulin R Administered 05/20/20 14:50 Dose 6 unit .ROUTE .STK-MED ONE Nicotine 21 mg 05/20/20 18:00 05/20/20 18:01 Nicoderm Cq 21 Mg TOP 05/20/20 18:01 21 mg STAT ONE Administration Ondansetron HCl 4 mg 05/20/20 12:47 05/20/20 14:42 Zofran 4 Mg/2 Ml Vial IV 05/20/20 12:48 4 mg STAT ONE Administration Ondansetron HCl Confirm 05/20/20 12:58 Zofran 4 Mg/2 Ml Vial Administered 05/20/20 12:59 Dose 4 mg .ROUTE .STK-MED ONE Ondansetron HCl 4 mg 05/20/20 16:16 05/20/20 16:53 Zofran 4 Mg/2 Ml Vial IV 06/19/20 16:15 4 mg Q6H PRN PRN Administration NAUSEA/VOMITING Promethazine HCl Confirm 05/20/20 13:15 Phenergan 25 Mg Inj Administered 05/20/20 13:16 Dose 25 mg .ROUTE .STK-MED ONE Promethazine HCl 25 mg 05/20/20 13:24 05/20/20 13:25 Phenergan 25 Mg Inj IM 05/20/20 13:25 25 mg STAT ONE Administration Intake & Output (Last 24 hours) 05/18/20 05/19/20 05/20/20 05/21/20 11:59 11:59 11:59 11:59 Intake Total 0 Output Total 400 Balance -400 Weight 61.8 kg Microbiology Results (Last 24 hours) 05/20/20 16:13 Blood Blood Culture Gram Stain - Pending 05/20/20 16:13 Blood Blood Culture - Pending 05/20/20 13:00 Blood Blood Culture Gram Stain - Pending 05/20/20 13:00 Blood Blood Culture - Pending Laboratory Results (Last 24 hours) 05/20/20 05/20/20 05/20/20 20:09 18:59 18:01 WBC RBC Hgb Hct MCV MCH MCHC RDW Plt Count MPV Segmented Neutrophils Band Neutrophils Lymphocytes (Manual) Monocytes (Manual) Eosinophils (Manual) Toxic Granulation Platelet Estimate RBC Morphology Anisocytosis pO2/FiO2 Ratio VBG pH VBG pCO2 at Pat Temp VBG pO2 at Pat Temp VBG HCO3 VBG O2 Sat (Moe) VBG Base Excess VBG Hemoglobin VBG Carboxyhemoglobin POC Potassium Sodium Potassium Chloride Carbon Dioxide Anion Gap BUN Creatinine Estimated GFR Glucose POC Glucometer 302 H 405 H 432 H Hemoglobin A1c Lactic Acid Calcium Magnesium Total Bilirubin AST ALT Alkaline Phosphatase Troponin I Serum Total Protein Albumin Amylase Lipase Urine Color Urine Appearance Urine pH Ur Specific [place] Urine Protein Urine Ketones Urine Blood Urine Nitrite Urine Bilirubin Urine Urobilinogen Ur Leukocyte Esterase Urine WBC (Auto) Urine RBC (Auto) U Hyaline Cast (Auto) U Epithel Cells (Auto) Urine Bacteria (Auto) Urine Culture Reflexed Urine Glucose SARS-CoV-2 (PCR) 05/20/20 05/20/20 05/20/20 18:00 18:00 17:10 WBC RBC Hgb Hct MCV MCH MCHC RDW Plt Count MPV Segmented Neutrophils Band Neutrophils Lymphocytes (Manual) Monocytes (Manual) Eosinophils (Manual) Toxic Granulation Platelet Estimate RBC Morphology Anisocytosis pO2/FiO2 Ratio VBG pH VBG pCO2 at Pat Temp VBG pO2 at Pat Temp VBG HCO3 VBG O2 Sat (Moe) VBG Base Excess VBG Hemoglobin VBG Carboxyhemoglobin POC Potassium Sodium 139 Potassium 4.4 D Chloride 105 Carbon Dioxide 16 L* Anion Gap 21.9 H BUN 36 H Creatinine 1.16 H Estimated GFR 51.0 Glucose 483 H POC Glucometer 494 H Hemoglobin A1c Lactic Acid Calcium 9.8 Magnesium Total Bilirubin AST ALT Alkaline Phosphatase Troponin I < 0.012 Serum Total Protein Albumin Amylase Lipase Urine Color Urine Appearance Urine pH Ur Specific [place] Urine Protein Urine Ketones Urine Blood Urine Nitrite Urine Bilirubin Urine Urobilinogen Ur Leukocyte Esterase Urine WBC (Auto) Urine RBC (Auto) U Hyaline Cast (Auto) U Epithel Cells (Auto) Urine Bacteria (Auto) Urine Culture Reflexed Urine Glucose SARS-CoV-2 (PCR) 05/20/20 05/20/20 05/20/20 16:13 16:00 15:50 WBC RBC Hgb Hct MCV MCH MCHC RDW Plt Count MPV Segmented Neutrophils Band Neutrophils Lymphocytes (Manual) Monocytes (Manual) Eosinophils (Manual) Toxic Granulation Platelet Estimate RBC Morphology Anisocytosis pO2/FiO2 Ratio VBG pH VBG pCO2 at Pat Temp VBG pO2 at Pat Temp VBG HCO3 VBG O2 Sat (Moe) VBG Base Excess VBG Hemoglobin VBG Carboxyhemoglobin POC Potassium Sodium Potassium Chloride Carbon Dioxide Anion Gap BUN Creatinine Estimated GFR Glucose 614 H* POC Glucometer Hemoglobin A1c 9.30 H Lactic Acid Calcium Magnesium 1.8 Total Bilirubin AST ALT Alkaline Phosphatase Troponin I < 0.012 Serum Total Protein Albumin Amylase Lipase Urine Color Urine Appearance Urine pH Ur Specific [place] Urine Protein Urine Ketones Urine Blood Urine Nitrite Urine Bilirubin Urine Urobilinogen Ur Leukocyte Esterase Urine WBC (Auto) Urine RBC (Auto) U Hyaline Cast (Auto) U Epithel Cells (Auto) Urine Bacteria (Auto) Urine Culture Reflexed Urine Glucose SARS-CoV-2 (PCR) 05/20/20 05/20/20 05/20/20 15:10 14:12 13:00 WBC RBC Hgb Hct MCV MCH MCHC RDW Plt Count MPV Segmented Neutrophils Band Neutrophils Lymphocytes (Manual) Monocytes (Manual) Eosinophils (Manual) Toxic Granulation Platelet Estimate RBC Morphology Anisocytosis pO2/FiO2 Ratio VBG pH VBG pCO2 at Pat Temp VBG pO2 at Pat Temp VBG HCO3 VBG O2 Sat (Moe) VBG Base Excess VBG Hemoglobin VBG Carboxyhemoglobin POC Potassium Sodium Potassium Chloride Carbon Dioxide Anion Gap BUN Creatinine Estimated GFR Glucose POC Glucometer Hemoglobin A1c Lactic Acid 2.2 H Calcium Magnesium Total Bilirubin AST ALT Alkaline Phosphatase Troponin I < 0.012 Serum Total Protein Albumin Amylase Lipase Urine Color Urine Appearance Urine pH Ur Specific [place] Urine Protein Urine Ketones Urine Blood Urine Nitrite Urine Bilirubin Urine Urobilinogen Ur Leukocyte Esterase Urine WBC (Auto) Urine RBC (Auto) U Hyaline Cast (Auto) U Epithel Cells (Auto) Urine Bacteria (Auto) Urine Culture Reflexed Urine Glucose SARS-CoV-2 (PCR) NEGATIVE 05/20/20 05/20/20 05/20/20 13:00 13:00 12:55 WBC 16.5 H RBC 4.25 Hgb 12.9 Hct 41.3 MCV 97.2 MCH 30.4 MCHC 31.2 L RDW 14.4 H Plt Count 413 MPV 9.4 Segmented Neutrophils 92 H Band Neutrophils 1 Lymphocytes (Manual) 4 L Monocytes (Manual) 2 Eosinophils (Manual) 1 Toxic Granulation 1+ Platelet Estimate NORMAL RBC Morphology ABNORMAL Anisocytosis 1+ pO2/FiO2 Ratio VBG pH VBG pCO2 at Pat Temp VBG pO2 at Pat Temp VBG HCO3 VBG O2 Sat (Moe) VBG Base Excess VBG Hemoglobin VBG Carboxyhemoglobin POC Potassium Sodium 133 L Potassium 5.6 H Chloride 96 L Carbon Dioxide 12 L* Anion Gap 30.1 H BUN 35 H Creatinine 1.26 H Estimated GFR 46.4 Glucose 749 H* POC Glucometer Hemoglobin A1c Lactic Acid Calcium 10.3 H Magnesium Total Bilirubin 0.70 AST 28 ALT 25 Alkaline Phosphatase 159 H Troponin I Serum Total Protein 7.1 Albumin 4.1 Amylase 69 Lipase 54 Urine Color YELLOW Urine Appearance CLEAR Urine pH 6.0 Ur Specific [place] 1.020 Urine Protein NEGATIVE Urine Ketones SMALL Urine Blood NEGATIVE Urine Nitrite NEGATIVE Urine Bilirubin NEGATIVE Urine Urobilinogen NEGATIVE Ur Leukocyte Esterase NEGATIVE Urine WBC (Auto) NONE Urine RBC (Auto) 0-2 U Hyaline Cast (Auto) 3-5 U Epithel Cells (Auto) NONE Urine Bacteria (Auto) NONE Urine Culture Reflexed NO Urine Glucose >=500 SARS-CoV-2 (PCR) 05/20/20 05/20/20 12:50 12:47 WBC RBC Hgb Hct MCV MCH MCHC RDW Plt Count MPV Segmented Neutrophils Band Neutrophils Lymphocytes (Manual) Monocytes (Manual) Eosinophils (Manual) Toxic Granulation Platelet Estimate RBC Morphology Anisocytosis pO2/FiO2 Ratio 21.0 VBG pH 7.24 L* VBG pCO2 at Pat Temp 33 L VBG pO2 at Pat Temp 46 H VBG HCO3 14.1 L* VBG O2 Sat (Moe) 77.8 L VBG Base Excess -12.2 L VBG Hemoglobin 13.1 VBG Carboxyhemoglobin 4.1 POC Potassium 5.6 H Sodium Potassium Chloride Carbon Dioxide Anion Gap BUN Creatinine Estimated GFR Glucose POC Glucometer Hemoglobin A1c Lactic Acid 3.3 H Calcium Magnesium Total Bilirubin AST ALT Alkaline Phosphatase Troponin I Serum Total Protein Albumin Amylase Lipase Urine Color Urine Appearance Urine pH Ur Specific [place] Urine Protein Urine Ketones Urine Blood Urine Nitrite Urine Bilirubin Urine Urobilinogen Ur Leukocyte Esterase Urine WBC (Auto) Urine RBC (Auto) U Hyaline Cast (Auto) U Epithel Cells (Auto) Urine Bacteria (Auto) Urine Culture Reflexed Urine Glucose SARS-CoV-2 (PCR) Orders (Last 24 hours) Category Date Time Status Bedrest ROUTINE Activity 05/20/20 16:16 Active Bedrest with BRP/BSC ROUTINE Activity 05/20/20 16:16 Active Admit as Inpatient ROUTINE Care 05/20/20 16:16 Active Code Status Order ROUTINE Care 05/20/20 16:16 Active EKG-ER Only STAT Care 05/20/20 12:47 Completed Fall Protocol ROUTINE Care 05/20/20 16:16 Active IV Care Q1H Care 05/20/20 16:16 Active IV Insertion STAT Care 05/20/20 12:47 Completed Intake and Output Q4H Care 05/20/20 17:08 Active NPO (ED) STAT Care 05/20/20 12:47 Completed Neuro Checks Q2H Care 05/20/20 16:16 Active Nursing [Miscellaneous Nursing Order] ROUTINE Care 05/20/20 17:11 Active POCT Glucose Check Q1H Care 05/20/20 18:00 Active Otis Hernandez Apply ROUTINE Care 05/20/20 16:16 Active Weight,Daily 0600 Care 05/20/20 16:16 Active NPO Diet 05/20/20 17:11 Active Nutritional Admission Screen ONCE Diet 05/20/20 16:45 Active OBSTR/ACUTE ABDOMEN SERIES Stat Exams 05/20/20 12:49 Completed AMYLASE Stat Lab 05/20/20 13:00 Completed BLOOD CULTURE Stat Lab 05/20/20 16:13 Received BMP Q4H Lab 05/20/20 18:00 Completed BMP Q4H Lab 05/20/20 21:30 Ordered BMP Q4H Lab 05/21/20 01:30 Ordered BMP Q4H Lab 05/21/20 05:30 Ordered BMP Q4H Lab 05/21/20 09:30 Ordered CBC W DIFF AM.LAB Lab 05/21/20 04:00 Ordered CBC W DIFF Stat Lab 05/20/20 13:00 Completed CMP AM.LAB Lab 05/21/20 04:00 Ordered CMP Stat Lab 05/20/20 13:00 Completed GLUCOSE,RANDOM Stat Lab 05/20/20 16:00 Completed HEMOGLOBIN A1C Urgent Lab 05/20/20 15:50 Completed LIPASE Stat Lab 05/20/20 13:00 Completed Lactic Acid Stat Lab 05/20/20 12:47 Completed Lactic Acid Stat Lab 05/20/20 15:10 Completed MAGNESIUM Stat Lab 05/20/20 16:00 Completed Manual Differential NC Stat Lab 05/20/20 13:00 Completed POCT GLUCOSE Stat Lab 05/20/20 12:54 Received POCT GLUCOSE Stat Lab 05/20/20 15:50 Received POCT GLUCOSE Stat Lab 05/20/20 15:50 Received POCT GLUCOSE Stat Lab 05/20/20 17:10 Completed POCT GLUCOSE Stat Lab 05/20/20 18:01 Completed POCT GLUCOSE Stat Lab 05/20/20 18:59 Completed POCT GLUCOSE Stat Lab 05/20/20 20:09 Completed TROPONIN Q3H Lab 05/20/20 13:00 Completed TROPONIN Q3H Lab 05/20/20 16:13 Completed TROPONIN Q3H Lab 05/20/20 18:00 Completed TROPONIN Q3H Lab 05/20/20 22:00 Ordered TROPONIN Q3H Lab 05/21/20 01:00 Ordered UA W/RFX UR CULTURE Stat Lab 05/20/20 12:55 Completed VENOUS BLOOD GAS Stat Lab 05/20/20 12:50 Completed Acetaminophen 325 mg [Tylenol 325 mg] Med 05/20/20 16:16 Active 650 mg PO Q4H PRN PRN Albuterol Common Canister [Ventolin Common Canister* Med 05/20/20 17:44 Active ] 2 puff IH Q4H PRN PRN Albuterol/Ipratropium 3ml Neb* [DUONEB 0.5-3 MG/3 ml Med 05/20/20 16:16 Active Neb] 3 ml IH Q4HPRN PRN Alprazolam 1 mg [Xanax 1 mg] Med 05/20/20 22:00 Active 1 mg PO HS Cyclobenzaprine HCl 10 mg [Cyclobenzaprine 10 MG] Med 05/20/20 18:00 Active 10 mg PO QID Ergocalciferol (Vitamin D2) [Vitamin D2] Med 05/25/20 10:00 Active 50,000 unit PO MO Insulin Lispro [Humalog] Med 05/20/20 17:45 Active 0 unit SQ UD PRN Insulin Regular, Human [Humulin R] Med 05/20/20 14:49 Discontinued 6 unit .ROUTE .STK-MED ONE Insulin Regular, Human [Humulin R] 100 unit Med 05/20/20 14:47 Discontinued NaCl 0.9% 100Ml [Sodium Chloride 0.9% 100 ML IVPB] 100 ml IV .STK-MED Metoprolol Tartrate 50 mg [Lopressor 50 MG] Med 05/20/20 18:00 Active 50 mg PO DAILY NaCl 0.9% 1000 ml [Sodium Chloride 0.9% 1000 ML] 1,000 Med 05/20/20 12:58 Discontinued ml .ROUTE UD NaCl 0.9% 1000 ml [Sodium Chloride 0.9% 1000 ML] 1,000 Med 05/20/20 15:45 Discontinued ml .ROUTE UD NaCl 0.9% 1000 ml [Sodium Chloride 0.9% 1000 ML] 1,000 Med 05/20/20 16:45 Active ml IV 150 mls/hr NaCl 0.9% 1000 ml [Sodium Chloride 0.9% 1000 ML] 1,000 Med 05/20/20 12:47 Discontinued ml IV 999 mls/hr NaCl 0.9% 100Ml [Sodium Chloride 0.9% 100 ML IVPB] 100 Med 05/20/20 15:00 Active ml Insulin Regular, Human [Humulin R] 100 unit IV 6.3 mls/hr Nicotine 21 mg [Nicoderm CQ 21 MG] Med 05/20/20 18:00 Discontinued 21 mg TOP STAT ONE Ondansetron HCl 4 mg/2 ml [Zofran 4 MG/2 ML VIAL] Med 05/20/20 12:58 Discontinued 4 mg .ROUTE .STK-MED ONE Ondansetron HCl 4 mg/2 ml [Zofran 4 MG/2 ML VIAL] Med 05/20/20 16:16 Discontinued 4 mg IV Q6H PRN PRN Ondansetron HCl 4 mg/2 ml [Zofran 4 MG/2 ML VIAL] Med 05/20/20 12:47 Discontinued 4 mg IV STAT ONE Pantoprazole 40 mg [Protonix 40 mg IV] Med 05/20/20 17:00 Active 40 mg IV Q24H10 Promethazine HCl 25 mg Amp [Phenergan 25 MG INJ] Med 05/20/20 13:15 Discontinued 25 mg .ROUTE .STK-MED ONE Promethazine HCl 25 mg Amp [Phenergan 25 MG INJ] Med 05/20/20 17:30 Active 25 mg IM Q6H PRN PRN Promethazine HCl 25 mg Amp [Phenergan 25 MG INJ] Med 05/20/20 13:24 Discontinued 25 mg IM STAT ONE Simvastatin 20Mg [Zocor 20Mg] Med 05/20/20 22:00 Active 40 mg PO HS Oxygen Nasal Cannula 2 lpm RT 05/20/20 16:16 Active Pulse Oximetry .continuos RT 05/20/20 16:28 Active Respiratory Therapy Assessment DAILY RT 05/20/20 16:28 Active Transfer Order Routine Transfer 05/20/20 Completed Code(s): E13.10 - OTH DIABETES MELLITUS WITH KETOACIDOSIS WITHOUT COMA (2) COLLEEN (acute kidney injury) Current Visit: Yes Status: Acute Code(s): N17.9 - ACUTE KIDNEY FAILURE, UNSPECIFIED (3) Dehydration Current Visit: No Status: Acute Code(s): E86.0 - DEHYDRATION
[2020-05-20] MEDS ORDERED: LIPITOR 40MG PO SCH (22:00)
[2020-05-20] MEDS: ZOCOR 20MG PO SCH (22:10)
[2020-05-20] MEDS: XANAX 1 MG PO SCH (22:10)
[2020-05-20 22:30] LABS: Creatinine 1 1.02 mg/dL (0.52-1.04)
[2020-05-20 22:31] LABS: ANION GAP 10.9 MEQ/L (5-15); Calcium 9.4 mg/dL (8.4-10.2); EST GLOMERULAR FILTRATION RATE 59.2 ML/MIN; Potassium 4.6 mmol/L (3.5-5.1)
[2020-05-20] MEDS ORDERED: D5W/0.45NS W/ 20mEq KCl 1000 ML 1,000 ML IV SCH (23:00)
[2020-05-20] MEDS ORDERED: Lantus Insulin ONE (23:02)
[2020-05-20] MEDS: Lantus Insulin SQ SCH (23:06)
[2020-05-21] MEDS: HUMALOG SQ PRN ×4 (01:23→17:57)
[2020-05-21 02:06] LABS: ANION GAP 11.6 MEQ/L (5-15); BLOOD UREA NITROGEN 36 mg/dL (7-17); CHLORIDE 109 mmol/L (98-107); Calcium 9.2 mg/dL (8.4-10.2); Carbon Dioxide 22 mmol/L (22-30); Creatinine 1 0.99 mg/dL (0.52-1.04); EST GLOMERULAR FILTRATION RATE > 60.0 ML/MIN; Glucose 166 mg/dL (74-106); Potassium 4.7 mmol/L (3.5-5.1); SODIUM 138 mmol/L (137-145)
[2020-05-21 05:34] LABS: ALBUMIN 3.1 g/dL (3.5-5.0); ALKALINE PHOSPHATASE 112 U/L (38-126); ANION GAP 11.2 MEQ/L (5-15); BLOOD UREA NITROGEN 33 mg/dL (7-17); CHLORIDE 110 mmol/L (98-107); Carbon Dioxide 21 mmol/L (22-30); Creatinine 1 0.89 mg/dL (0.52-1.04); EST GLOMERULAR FILTRATION RATE > 60.0 ML/MIN; Glucose 109 mg/dL (74-106); Potassium 4.1 mmol/L (3.5-5.1); SGOT/AST 31 U/L (14-36); SGPT/ALT 20 U/L (0-35); SODIUM 138 mmol/L (137-145); Total Protein 6.1 g/dL (6.3-8.2)
[2020-05-21 05:35] LABS: Absolute Neutrophil Ct (ANC) 13.13 (1.4-6.9); BASOPHIL % 0.1 % (0.0-0.4); Basophil (Absolute #) 0.02 (0-0.4); Eosinophil % 0.5 % (0.00-5.0); Hematocrit 34.2 % (35-47); Hemoglobin 10.9 gm/dl (12.0-16.0); Lymphocyte (Absolute #) 3.42 (1.0-4.6); Lymphocytes % 18.6 % (24.0-44.0); Mean Cell Volume 94.5 fl (78-100); Mean Corpuscular Hemoglobin 30.1 pg (26-32); Mean Corpuscular Hgb Concent. 31.9 g/dl (32-36); Mean Platelet Volume 9.1 fl (7.5-11.0); Monocyte (Absolute #) 1.69 (0.0-1.3); Monocytes % 9.2 % (0.0-12.0); Neutrophil % 71.6 % (36.0-66.0); Platelet Count 397 K/mm3 (150-450); Red Blood Count 3.62 M/mm3 (4.1-5.4); Red Cell Distribution Width 14.1 % (11.5-14.0); White Blood Count 18.4 K/mm3 (4.0-10.5)
[2020-05-21 06:39] LABS: Slide Review 1 YES
[2020-05-21] MEDS: Cyclobenzaprine 10 MG PO SCH ×4 (09:23→21:48)
[2020-05-21] MEDS: Lopressor 50 MG PO SCH (09:23)
[2020-05-21] MEDS: PROTONIX 40 MG IV IV SCH (09:24)
--- NOTE | 2020-05-21 10:22 | PCM.NOTE ---
Date and Time: 05/21/20 1021 Subjective Assessment: doing ok - Review of Systems Constitutional: No Fever, No Chills Eyes: No Symptoms Ears, Nose, & Throat: No Symptoms Respiratory: No Cough, No Short Of Breath Cardiac: No Chest Pain, No Edema, No Syncope Abdominal/Gastrointestinal: No Abdominal Pain, No Nausea, No Vomiting, No Diarrhea Genitourinary Symptoms: No Dysuria Musculoskeletal: No Back Pain, No Neck Pain Skin: No Rash Neurological: No Dizziness, No Focal Weakness, No Sensory Changes Psychological: No Symptoms Endocrine: No Symptoms Hematologic/Lymphatic: No Symptoms Immunological/Allergic: No Symptoms Objective Exam General Appearance: no apparent distress, alert Neurologic Exam: alert, oriented x 3, cooperative, normal mood/affect, nml cerebellar function, sensation nml, No motor deficits Skin Exam: normal color, warm, dry Eye Exam: PERRL, EOMI, eyes nml inspection Ears, Nose, Throat Exam: normal ENT inspection, pharynx normal, moist mucous membranes Neck Exam: normal inspection, non-tender, supple, full range of motion Respiratory Exam: normal breath sounds, lungs clear, No respiratory distress Cardiovascular Exam: regular rate/rhythm, normal heart sounds Gastrointestinal/Abdomen Exam: soft, No tenderness, No mass Extremity Exam: normal inspection, normal range of motion Back Exam: normal inspection, normal range of motion, No CVA tenderness, No vertebral tenderness Pelvic Exam: deferred Rectal Exam: deferred OBJECTIVE DATA Vital Signs: Vital Signs - 24 hr Temp Pulse Resp BP Pulse Ox 05/21/20 07:43 19 05/21/20 07:39 98.6 F 102 H 19 143/72 96 05/21/20 07:27 107 H 20 97 05/21/20 04:00 97.9 F 103 H 22 149/76 95 05/21/20 02:00 102 H 18 141/70 96 05/21/20 00:01 98 H 05/21/20 00:00 98.1 F 98 H 18 116/59 95 05/20/20 22:00 96 H 22 113/56 97 05/20/20 20:00 97.7 F 91 H 19 142/70 96 05/20/20 18:45 107 H 19 148/70 97 05/20/20 18:15 115 H 21 166/75 97 05/20/20 17:45 117 H 18 171/81 98 05/20/20 17:30 116 H 18 176/86 05/20/20 17:15 119 H 24 135/65 05/20/20 17:00 120 H 20 172/83 05/20/20 16:21 97.6 F 128 H 22 182/83 100 05/20/20 16:20 124 H 22 99 05/20/20 16:12 97.6 F 128 H 23 182/83 100 05/20/20 16:00 123 H 18 133/53 99 05/20/20 15:04 116 H 22 152/70 98 05/20/20 14:08 99 05/20/20 14:04 112 H 24 98 05/20/20 12:30 97.5 F 112 H 20 132/62 99 Pain Assessment - Last Documented Pain Intensity 0 Intake and Output: Intake & Output 05/18/20 05/19/20 05/20/20 05/21/20 11:59 11:59 11:59 11:59 Intake Total 3306 Output Total 400 Balance 2906 Weight 64 kg Lab Results: Lab Results-Last 24 Hours 05/20/20 05/20/20 05/20/20 Range/Units 12:47 12:50 12:55 WBC (4.0-10.5) K/mm3 RBC (4.1-5.4) M/mm3 Hgb (12.0-16.0) gm/dl Hct (35-47) % MCV (78-100) fl MCH (26-32) pg MCHC (32-36) g/dl RDW (11.5-14.0) % Plt Count (150-450) K/mm3 MPV (7.5-11.0) fl Gran % (36.0-66.0) % Eos # (Auto) (0-0.5) Absolute Lymphs (auto) (1.0-4.6) Absolute Monos (auto) (0.0-1.3) Lymphocytes % (24.0-44.0) % Monocytes % (0.0-12.0) % Eosinophils % (0.00-5.0) % Basophils % (0.0-0.4) % Absolute Granulocytes (1.4-6.9) Segmented Neutrophils (36.0-66.0) % Band Neutrophils (0.0-2.0) % Lymphocytes (Manual) (24-44) % Monocytes (Manual) (0.0-12.0) % Eosinophils (Manual) (0.00-3.0) % Basophils # (0-0.4) Toxic Granulation Platelet Estimate (NORMAL) RBC Morphology Anisocytosis pO2/FiO2 Ratio 21.0 % VBG pH 7.24 L* (7.32-7.42) VBG pCO2 at Pat Temp 33 L (42-55) mm/Hg VBG pO2 at Pat Temp 46 H (25-40) mm/Hg VBG HCO3 14.1 L* (22-28) meq/L VBG O2 Sat (Moe) 77.8 L (95-100) VBG Base Excess -12.2 L (-2.0-2.0) VBG Hemoglobin 13.1 VBG Carboxyhemoglobin 4.1 (0.0-6.9) % T HGB POC Potassium 5.6 H (3.5-5.1) Sodium (137-145) mmol/L Potassium (3.5-5.1) mmol/L Chloride (98-107) mmol/L Carbon Dioxide (22-30) mmol/L Anion Gap (5-15) MEQ/L BUN (7-17) mg/dL Creatinine (0.52-1.04) mg/dL Estimated GFR ML/MIN Glucose (74-106) mg/dL POC Glucometer (74 to 106) mg/dL Hemoglobin A1c (4.5-6.0) % Lactic Acid 3.3 H (0.4-2.0) Calcium (8.4-10.2) mg/dL Magnesium (1.6-2.3) mg/dL Total Bilirubin (0.2-1.3) mg/dL AST (14-36) U/L ALT (0-35) U/L Alkaline Phosphatase (38-126) U/L Troponin I (0.000-0.034) ng/mL Serum Total Protein (6.3-8.2) g/dL Albumin (3.5-5.0) g/dL Amylase (30-110) U/L Lipase (23-300) U/L Urine Color YELLOW (YELLOW) Urine Appearance CLEAR (CLEAR) Urine pH 6.0 (5-6) Ur Specific [place] 1.020 (1.005-1.025) Urine Protein NEGATIVE (Negative) Urine Ketones SMALL (NEGATIVE) Urine Blood NEGATIVE (0-5) Tato/ul Urine Nitrite NEGATIVE (NEGATIVE) Urine Bilirubin NEGATIVE (NEGATIVE) Urine Urobilinogen NEGATIVE (0-1) mg/dL Ur Leukocyte Esterase NEGATIVE (NEGATIVE) Urine WBC (Auto) NONE (0-5) /HPF Urine RBC (Auto) 0-2 (0-2) /HPF U Hyaline Cast (Auto) 3-5 (0-2) /LPF U Epithel Cells (Auto) NONE (FEW) /HPF Urine Bacteria (Auto) NONE (NEGATIVE) /HPF Urine Culture Reflexed NO (NO) Urine Glucose >=500 (NEGATIVE) mg/dL SARS-CoV-2 (PCR) (NEGATIVE) Slides for Path Review 05/20/20 05/20/20 05/20/20 Range/Units 13:00 13:00 13:00 WBC 16.5 H (4.0-10.5) K/mm3 RBC 4.25 (4.1-5.4) M/mm3 Hgb 12.9 (12.0-16.0) gm/dl Hct 41.3 (35-47) % MCV 97.2 (78-100) fl MCH 30.4 (26-32) pg MCHC 31.2 L (32-36) g/dl RDW 14.4 H (11.5-14.0) % Plt Count 413 (150-450) K/mm3 MPV 9.4 (7.5-11.0) fl Gran % (36.0-66.0) % Eos # (Auto) (0-0.5) Absolute Lymphs (auto) (1.0-4.6) Absolute Monos (auto) (0.0-1.3) Lymphocytes % (24.0-44.0) % Monocytes % (0.0-12.0) % Eosinophils % (0.00-5.0) % Basophils % (0.0-0.4) % Absolute Granulocytes (1.4-6.9) Segmented Neutrophils 92 H (36.0-66.0) % Band Neutrophils 1 (0.0-2.0) % Lymphocytes (Manual) 4 L (24-44) % Monocytes (Manual) 2 (0.0-12.0) % Eosinophils (Manual) 1 (0.00-3.0) % Basophils # (0-0.4) Toxic Granulation 1+ Platelet Estimate NORMAL (NORMAL) RBC Morphology ABNORMAL Anisocytosis 1+ pO2/FiO2 Ratio % VBG pH (7.32-7.42) VBG pCO2 at Pat Temp (42-55) mm/Hg VBG pO2 at Pat Temp (25-40) mm/Hg VBG HCO3 (22-28) meq/L VBG O2 Sat (Moe) (95-100) VBG Base Excess (-2.0-2.0) VBG Hemoglobin VBG Carboxyhemoglobin (0.0-6.9) % T HGB POC Potassium (3.5-5.1) Sodium 133 L (137-145) mmol/L Potassium 5.6 H (3.5-5.1) mmol/L Chloride 96 L (98-107) mmol/L Carbon Dioxide 12 L* (22-30) mmol/L Anion Gap 30.1 H (5-15) MEQ/L BUN 35 H (7-17) mg/dL Creatinine 1.26 H (0.52-1.04) mg/dL Estimated GFR 46.4 ML/MIN Glucose 749 H* (74-106) mg/dL POC Glucometer (74 to 106) mg/dL Hemoglobin A1c (4.5-6.0) % Lactic Acid (0.4-2.0) Calcium 10.3 H (8.4-10.2) mg/dL Magnesium (1.6-2.3) mg/dL Total Bilirubin 0.70 (0.2-1.3) mg/dL AST 28 (14-36) U/L ALT 25 (0-35) U/L Alkaline Phosphatase 159 H (38-126) U/L Troponin I < 0.012 (0.000-0.034) ng/mL Serum Total Protein 7.1 (6.3-8.2) g/dL Albumin 4.1 (3.5-5.0) g/dL Amylase 69 (30-110) U/L Lipase 54 (23-300) U/L Urine Color (YELLOW) Urine Appearance (CLEAR) Urine pH (5-6) Ur Specific [place] (1.005-1.025) Urine Protein (Negative) Urine Ketones (NEGATIVE) Urine Blood (0-5) Tato/ul Urine Nitrite (NEGATIVE) Urine Bilirubin (NEGATIVE) Urine Urobilinogen (0-1) mg/dL Ur Leukocyte Esterase (NEGATIVE) Urine WBC (Auto) (0-5) /HPF Urine RBC (Auto) (0-2) /HPF U Hyaline Cast (Auto) (0-2) /LPF U Epithel Cells (Auto) (FEW) /HPF Urine Bacteria (Auto) (NEGATIVE) /HPF Urine Culture Reflexed (NO) Urine Glucose (NEGATIVE) mg/dL SARS-CoV-2 (PCR) (NEGATIVE) Slides for Path Review 05/20/20 05/20/20 05/20/20 Range/Units 14:12 15:10 15:50 WBC (4.0-10.5) K/mm3 RBC (4.1-5.4) M/mm3 Hgb (12.0-16.0) gm/dl Hct (35-47) % MCV (78-100) fl MCH (26-32) pg MCHC (32-36) g/dl RDW (11.5-14.0) % Plt Count (150-450) K/mm3 MPV (7.5-11.0) fl Gran % (36.0-66.0) % Eos # (Auto) (0-0.5) Absolute Lymphs (auto) (1.0-4.6) Absolute Monos (auto) (0.0-1.3) Lymphocytes % (24.0-44.0) % Monocytes % (0.0-12.0) % Eosinophils % (0.00-5.0) % Basophils % (0.0-0.4) % Absolute Granulocytes (1.4-6.9) Segmented Neutrophils (36.0-66.0) % Band Neutrophils (0.0-2.0) % Lymphocytes (Manual) (24-44) % Monocytes (Manual) (0.0-12.0) % Eosinophils (Manual) (0.00-3.0) % Basophils # (0-0.4) Toxic Granulation Platelet Estimate (NORMAL) RBC Morphology Anisocytosis pO2/FiO2 Ratio % VBG pH (7.32-7.42) VBG pCO2 at Pat Temp (42-55) mm/Hg VBG pO2 at Pat Temp (25-40) mm/Hg VBG HCO3 (22-28) meq/L VBG O2 Sat (Moe) (95-100) VBG Base Excess (-2.0-2.0) VBG Hemoglobin VBG Carboxyhemoglobin (0.0-6.9) % T HGB POC Potassium (3.5-5.1) Sodium (137-145) mmol/L Potassium (3.5-5.1) mmol/L Chloride (98-107) mmol/L Carbon Dioxide (22-30) mmol/L Anion Gap (5-15) MEQ/L BUN (7-17) mg/dL Creatinine (0.52-1.04) mg/dL Estimated GFR ML/MIN Glucose (74-106) mg/dL POC Glucometer (74 to 106) mg/dL Hemoglobin A1c 9.30 H (4.5-6.0) % Lactic Acid 2.2 H (0.4-2.0) Calcium (8.4-10.2) mg/dL Magnesium (1.6-2.3) mg/dL Total Bilirubin (0.2-1.3) mg/dL AST (14-36) U/L ALT (0-35) U/L Alkaline Phosphatase (38-126) U/L Troponin I (0.000-0.034) ng/mL Serum Total Protein (6.3-8.2) g/dL Albumin (3.5-5.0) g/dL Amylase (30-110) U/L Lipase (23-300) U/L Urine Color (YELLOW) Urine Appearance (CLEAR) Urine pH (5-6) Ur Specific [place] (1.005-1.025) Urine Protein (Negative) Urine Ketones (NEGATIVE) Urine Blood (0-5) Tato/ul Urine Nitrite (NEGATIVE) Urine Bilirubin (NEGATIVE) Urine Urobilinogen (0-1) mg/dL Ur Leukocyte Esterase (NEGATIVE) Urine WBC (Auto) (0-5) /HPF Urine RBC (Auto) (0-2) /HPF U Hyaline Cast (Auto) (0-2) /LPF U Epithel Cells (Auto) (FEW) /HPF Urine Bacteria (Auto) (NEGATIVE) /HPF Urine Culture Reflexed (NO) Urine Glucose (NEGATIVE) mg/dL SARS-CoV-2 (PCR) NEGATIVE (NEGATIVE) Slides for Path Review 05/20/20 05/20/20 05/20/20 Range/Units 16:00 16:13 17:10 WBC (4.0-10.5) K/mm3 RBC (4.1-5.4) M/mm3 Hgb (12.0-16.0) gm/dl Hct (35-47) % MCV (78-100) fl MCH (26-32) pg MCHC (32-36) g/dl RDW (11.5-14.0) % Plt Count (150-450) K/mm3 MPV (7.5-11.0) fl Gran % (36.0-66.0) % Eos # (Auto) (0-0.5) Absolute Lymphs (auto) (1.0-4.6) Absolute Monos (auto) (0.0-1.3) Lymphocytes % (24.0-44.0) % Monocytes % (0.0-12.0) % Eosinophils % (0.00-5.0) % Basophils % (0.0-0.4) % Absolute Granulocytes (1.4-6.9) Segmented Neutrophils (36.0-66.0) % Band Neutrophils (0.0-2.0) % Lymphocytes (Manual) (24-44) % Monocytes (Manual) (0.0-12.0) % Eosinophils (Manual) (0.00-3.0) % Basophils # (0-0.4) Toxic Granulation Platelet Estimate (NORMAL) RBC Morphology Anisocytosis pO2/FiO2 Ratio % VBG pH (7.32-7.42) VBG pCO2 at Pat Temp (42-55) mm/Hg VBG pO2 at Pat Temp (25-40) mm/Hg VBG HCO3 (22-28) meq/L VBG O2 Sat (Moe) (95-100) VBG Base Excess (-2.0-2.0) VBG Hemoglobin VBG Carboxyhemoglobin (0.0-6.9) % T HGB POC Potassium (3.5-5.1) Sodium (137-145) mmol/L Potassium (3.5-5.1) mmol/L Chloride (98-107) mmol/L Carbon Dioxide (22-30) mmol/L Anion Gap (5-15) MEQ/L BUN (7-17) mg/dL Creatinine (0.52-1.04) mg/dL Estimated GFR ML/MIN Glucose 614 H* (74-106) mg/dL POC Glucometer 494 H (74 to 106) mg/dL Hemoglobin A1c (4.5-6.0) % Lactic Acid (0.4-2.0) Calcium (8.4-10.2) mg/dL Magnesium 1.8 (1.6-2.3) mg/dL Total Bilirubin (0.2-1.3) mg/dL AST (14-36) U/L ALT (0-35) U/L Alkaline Phosphatase (38-126) U/L Troponin I < 0.012 (0.000-0.034) ng/mL Serum Total Protein (6.3-8.2) g/dL Albumin (3.5-5.0) g/dL Amylase (30-110) U/L Lipase (23-300) U/L Urine Color (YELLOW) Urine Appearance (CLEAR) Urine pH (5-6) Ur Specific [place] (1.005-1.025) Urine Protein (Negative) Urine Ketones (NEGATIVE) Urine Blood (0-5) Tato/ul Urine Nitrite (NEGATIVE) Urine Bilirubin (NEGATIVE) Urine Urobilinogen (0-1) mg/dL Ur Leukocyte Esterase (NEGATIVE) Urine WBC (Auto) (0-5) /HPF Urine RBC (Auto) (0-2) /HPF U Hyaline Cast (Auto) (0-2) /LPF U Epithel Cells (Auto) (FEW) /HPF Urine Bacteria (Auto) (NEGATIVE) /HPF Urine Culture Reflexed (NO) Urine Glucose (NEGATIVE) mg/dL SARS-CoV-2 (PCR) (NEGATIVE) Slides for Path Review 05/20/20 05/20/20 05/20/20 Range/Units 18:00 18:00 18:01 WBC (4.0-10.5) K/mm3 RBC (4.1-5.4) M/mm3 Hgb (12.0-16.0) gm/dl Hct (35-47) % MCV (78-100) fl MCH (26-32) pg MCHC (32-36) g/dl RDW (11.5-14.0) % Plt Count (150-450) K/mm3 MPV (7.5-11.0) fl Gran % (36.0-66.0) % Eos # (Auto) (0-0.5) Absolute Lymphs (auto) (1.0-4.6) Absolute Monos (auto) (0.0-1.3) Lymphocytes % (24.0-44.0) % Monocytes % (0.0-12.0) % Eosinophils % (0.00-5.0) % Basophils % (0.0-0.4) % Absolute Granulocytes (1.4-6.9) Segmented Neutrophils (36.0-66.0) % Band Neutrophils (0.0-2.0) % Lymphocytes (Manual) (24-44) % Monocytes (Manual) (0.0-12.0) % Eosinophils (Manual) (0.00-3.0) % Basophils # (0-0.4) Toxic Granulation Platelet Estimate (NORMAL) RBC Morphology Anisocytosis pO2/FiO2 Ratio % VBG pH (7.32-7.42) VBG pCO2 at Pat Temp (42-55) mm/Hg VBG pO2 at Pat Temp (25-40) mm/Hg VBG HCO3 (22-28) meq/L VBG O2 Sat (Moe) (95-100) VBG Base Excess (-2.0-2.0) VBG Hemoglobin VBG Carboxyhemoglobin (0.0-6.9) % T HGB POC Potassium (3.5-5.1) Sodium 139 (137-145) mmol/L Potassium 4.4 D (3.5-5.1) mmol/L Chloride 105 (98-107) mmol/L Carbon Dioxide 16 L* (22-30) mmol/L Anion Gap 21.9 H (5-15) MEQ/L BUN 36 H (7-17) mg/dL Creatinine 1.16 H (0.52-1.04) mg/dL Estimated GFR 51.0 ML/MIN Glucose 483 H (74-106) mg/dL POC Glucometer 432 H (74 to 106) mg/dL Hemoglobin A1c (4.5-6.0) % Lactic Acid (0.4-2.0) Calcium 9.8 (8.4-10.2) mg/dL Magnesium (1.6-2.3) mg/dL Total Bilirubin (0.2-1.3) mg/dL AST (14-36) U/L ALT (0-35) U/L Alkaline Phosphatase (38-126) U/L Troponin I < 0.012 (0.000-0.034) ng/mL Serum Total Protein (6.3-8.2) g/dL Albumin (3.5-5.0) g/dL Amylase (30-110) U/L Lipase (23-300) U/L Urine Color (YELLOW) Urine Appearance (CLEAR) Urine pH (5-6) Ur Specific [place] (1.005-1.025) Urine Protein (Negative) Urine Ketones (NEGATIVE) Urine Blood (0-5) Tato/ul Urine Nitrite (NEGATIVE) Urine Bilirubin (NEGATIVE) Urine Urobilinogen (0-1) mg/dL Ur Leukocyte Esterase (NEGATIVE) Urine WBC (Auto) (0-5) /HPF Urine RBC (Auto) (0-2) /HPF U Hyaline Cast (Auto) (0-2) /LPF U Epithel Cells (Auto) (FEW) /HPF Urine Bacteria (Auto) (NEGATIVE) /HPF Urine Culture Reflexed (NO) Urine Glucose (NEGATIVE) mg/dL SARS-CoV-2 (PCR) (NEGATIVE) Slides for Path Review 05/20/20 05/20/20 05/20/20 Range/Units 18:59 20:09 21:08 WBC (4.0-10.5) K/mm3 RBC (4.1-5.4) M/mm3 Hgb (12.0-16.0) gm/dl Hct (35-47) % MCV (78-100) fl MCH (26-32) pg MCHC (32-36) g/dl RDW (11.5-14.0) % Plt Count (150-450) K/mm3 MPV (7.5-11.0) fl Gran % (36.0-66.0) % Eos # (Auto) (0-0.5) Absolute Lymphs (auto) (1.0-4.6) Absolute Monos (auto) (0.0-1.3) Lymphocytes % (24.0-44.0) % Monocytes % (0.0-12.0) % Eosinophils % (0.00-5.0) % Basophils % (0.0-0.4) % Absolute Granulocytes (1.4-6.9) Segmented Neutrophils (36.0-66.0) % Band Neutrophils (0.0-2.0) % Lymphocytes (Manual) (24-44) % Monocytes (Manual) (0.0-12.0) % Eosinophils (Manual) (0.00-3.0) % Basophils # (0-0.4) Toxic Granulation Platelet Estimate (NORMAL) RBC Morphology Anisocytosis pO2/FiO2 Ratio % VBG pH (7.32-7.42) VBG pCO2 at Pat Temp (42-55) mm/Hg VBG pO2 at Pat Temp (25-40) mm/Hg VBG HCO3 (22-28) meq/L VBG O2 Sat (Moe) (95-100) VBG Base Excess (-2.0-2.0) VBG Hemoglobin VBG Carboxyhemoglobin (0.0-6.9) % T HGB POC Potassium (3.5-5.1) Sodium (137-145) mmol/L Potassium (3.5-5.1) mmol/L Chloride (98-107) mmol/L Carbon Dioxide (22-30) mmol/L Anion Gap (5-15) MEQ/L BUN (7-17) mg/dL Creatinine (0.52-1.04) mg/dL Estimated GFR ML/MIN Glucose (74-106) mg/dL POC Glucometer 405 H 302 H 231 H (74 to 106) mg/dL Hemoglobin A1c (4.5-6.0) % Lactic Acid (0.4-2.0) Calcium (8.4-10.2) mg/dL Magnesium (1.6-2.3) mg/dL Total Bilirubin (0.2-1.3) mg/dL AST (14-36) U/L ALT (0-35) U/L Alkaline Phosphatase (38-126) U/L Troponin I (0.000-0.034) ng/mL Serum Total Protein (6.3-8.2) g/dL Albumin (3.5-5.0) g/dL Amylase (30-110) U/L Lipase (23-300) U/L Urine Color (YELLOW) Urine Appearance (CLEAR) Urine pH (5-6) Ur Specific [place] (1.005-1.025) Urine Protein (Negative) Urine Ketones (NEGATIVE) Urine Blood (0-5) Tato/ul Urine Nitrite (NEGATIVE) Urine Bilirubin (NEGATIVE) Urine Urobilinogen (0-1) mg/dL Ur Leukocyte Esterase (NEGATIVE) Urine WBC (Auto) (0-5) /HPF Urine RBC (Auto) (0-2) /HPF U Hyaline Cast (Auto) (0-2) /LPF U Epithel Cells (Auto) (FEW) /HPF Urine Bacteria (Auto) (NEGATIVE) /HPF Urine Culture Reflexed (NO) Urine Glucose (NEGATIVE) mg/dL SARS-CoV-2 (PCR) (NEGATIVE) Slides for Path Review 05/20/20 05/20/20 05/20/20 Range/Units 22:00 22:00 22:56 WBC (4.0-10.5) K/mm3 RBC (4.1-5.4) M/mm3 Hgb (12.0-16.0) gm/dl Hct (35-47) % MCV (78-100) fl MCH (26-32) pg MCHC (32-36) g/dl RDW (11.5-14.0) % Plt Count (150-450) K/mm3 MPV (7.5-11.0) fl Gran % (36.0-66.0) % Eos # (Auto) (0-0.5) Absolute Lymphs (auto) (1.0-4.6) Absolute Monos (auto) (0.0-1.3) Lymphocytes % (24.0-44.0) % Monocytes % (0.0-12.0) % Eosinophils % (0.00-5.0) % Basophils % (0.0-0.4) % Absolute Granulocytes (1.4-6.9) Segmented Neutrophils (36.0-66.0) % Band Neutrophils (0.0-2.0) % Lymphocytes (Manual) (24-44) % Monocytes (Manual) (0.0-12.0) % Eosinophils (Manual) (0.00-3.0) % Basophils # (0-0.4) Toxic Granulation Platelet Estimate (NORMAL) RBC Morphology Anisocytosis pO2/FiO2 Ratio % VBG pH (7.32-7.42) VBG pCO2 at Pat Temp (42-55) mm/Hg VBG pO2 at Pat Temp (25-40) mm/Hg VBG HCO3 (22-28) meq/L VBG O2 Sat (Moe) (95-100) VBG Base Excess (-2.0-2.0) VBG Hemoglobin VBG Carboxyhemoglobin (0.0-6.9) % T HGB POC Potassium (3.5-5.1) Sodium 139 (137-145) mmol/L Potassium 4.6 (3.5-5.1) mmol/L Chloride 109 H (98-107) mmol/L Carbon Dioxide 24 (22-30) mmol/L Anion Gap 10.9 (5-15) MEQ/L BUN 38 H (7-17) mg/dL Creatinine 1.02 (0.52-1.04) mg/dL Estimated GFR 59.2 ML/MIN Glucose 213 H (74-106) mg/dL POC Glucometer 175 H (74 to 106) mg/dL Hemoglobin A1c (4.5-6.0) % Lactic Acid (0.4-2.0) Calcium 9.4 (8.4-10.2) mg/dL Magnesium (1.6-2.3) mg/dL Total Bilirubin (0.2-1.3) mg/dL AST (14-36) U/L ALT (0-35) U/L Alkaline Phosphatase (38-126) U/L Troponin I < 0.012 (0.000-0.034) ng/mL Serum Total Protein (6.3-8.2) g/dL Albumin (3.5-5.0) g/dL Amylase (30-110) U/L Lipase (23-300) U/L Urine Color (YELLOW) Urine Appearance (CLEAR) Urine pH (5-6) Ur Specific [place] (1.005-1.025) Urine Protein (Negative) Urine Ketones (NEGATIVE) Urine Blood (0-5) Tato/ul Urine Nitrite (NEGATIVE) Urine Bilirubin (NEGATIVE) Urine Urobilinogen (0-1) mg/dL Ur Leukocyte Esterase (NEGATIVE) Urine WBC (Auto) (0-5) /HPF Urine RBC (Auto) (0-2) /HPF U Hyaline Cast (Auto) (0-2) /LPF U Epithel Cells (Auto) (FEW) /HPF Urine Bacteria (Auto) (NEGATIVE) /HPF Urine Culture Reflexed (NO) Urine Glucose (NEGATIVE) mg/dL SARS-CoV-2 (PCR) (NEGATIVE) Slides for Path Review 05/20/20 05/21/20 05/21/20 Range/Units 23:53 01:00 01:30 WBC (4.0-10.5) K/mm3 RBC (4.1-5.4) M/mm3 Hgb (12.0-16.0) gm/dl Hct (35-47) % MCV (78-100) fl MCH (26-32) pg MCHC (32-36) g/dl RDW (11.5-14.0) % Plt Count (150-450) K/mm3 MPV (7.5-11.0) fl Gran % (36.0-66.0) % Eos # (Auto) (0-0.5) Absolute Lymphs (auto) (1.0-4.6) Absolute Monos (auto) (0.0-1.3) Lymphocytes % (24.0-44.0) % Monocytes % (0.0-12.0) % Eosinophils % (0.00-5.0) % Basophils % (0.0-0.4) % Absolute Granulocytes (1.4-6.9) Segmented Neutrophils (36.0-66.0) % Band Neutrophils (0.0-2.0) % Lymphocytes (Manual) (24-44) % Monocytes (Manual) (0.0-12.0) % Eosinophils (Manual) (0.00-3.0) % Basophils # (0-0.4) Toxic Granulation Platelet Estimate (NORMAL) RBC Morphology Anisocytosis pO2/FiO2 Ratio % VBG pH (7.32-7.42) VBG pCO2 at Pat Temp (42-55) mm/Hg VBG pO2 at Pat Temp (25-40) mm/Hg VBG HCO3 (22-28) meq/L VBG O2 Sat (Moe) (95-100) VBG Base Excess (-2.0-2.0) VBG Hemoglobin VBG Carboxyhemoglobin (0.0-6.9) % T HGB POC Potassium (3.5-5.1) Sodium (137-145) mmol/L Potassium (3.5-5.1) mmol/L Chloride (98-107) mmol/L Carbon Dioxide (22-30) mmol/L Anion Gap (5-15) MEQ/L BUN (7-17) mg/dL Creatinine (0.52-1.04) mg/dL Estimated GFR ML/MIN Glucose (74-106) mg/dL POC Glucometer 158 H 175 H (74 to 106) mg/dL Hemoglobin A1c (4.5-6.0) % Lactic Acid (0.4-2.0) Calcium (8.4-10.2) mg/dL Magnesium (1.6-2.3) mg/dL Total Bilirubin (0.2-1.3) mg/dL AST (14-36) U/L ALT (0-35) U/L Alkaline Phosphatase (38-126) U/L Troponin I < 0.012 (0.000-0.034) ng/mL Serum Total Protein (6.3-8.2) g/dL Albumin (3.5-5.0) g/dL Amylase (30-110) U/L Lipase (23-300) U/L Urine Color (YELLOW) Urine Appearance (CLEAR) Urine pH (5-6) Ur Specific [place] (1.005-1.025) Urine Protein (Negative) Urine Ketones (NEGATIVE) Urine Blood (0-5) Tato/ul Urine Nitrite (NEGATIVE) Urine Bilirubin (NEGATIVE) Urine Urobilinogen (0-1) mg/dL Ur Leukocyte Esterase (NEGATIVE) Urine WBC (Auto) (0-5) /HPF Urine RBC (Auto) (0-2) /HPF U Hyaline Cast (Auto) (0-2) /LPF U Epithel Cells (Auto) (FEW) /HPF Urine Bacteria (Auto) (NEGATIVE) /HPF Urine Culture Reflexed (NO) Urine Glucose (NEGATIVE) mg/dL SARS-CoV-2 (PCR) (NEGATIVE) Slides for Path Review 05/21/20 05/21/20 05/21/20 Range/Units 01:30 02:09 05:00 WBC 18.4 H (4.0-10.5) K/mm3 RBC 3.62 L (4.1-5.4) M/mm3 Hgb 10.9 L (12.0-16.0) gm/dl Hct 34.2 L (35-47) % MCV 94.5 (78-100) fl MCH 30.1 (26-32) pg MCHC 31.9 L (32-36) g/dl RDW 14.1 H (11.5-14.0) % Plt Count 397 (150-450) K/mm3 MPV 9.1 (7.5-11.0) fl Gran % 71.6 H (36.0-66.0) % Eos # (Auto) 0.10 (0-0.5) Absolute Lymphs (auto) 3.42 (1.0-4.6) Absolute Monos (auto) 1.69 H (0.0-1.3) Lymphocytes % 18.6 L (24.0-44.0) % Monocytes % 9.2 (0.0-12.0) % Eosinophils % 0.5 (0.00-5.0) % Basophils % 0.1 (0.0-0.4) % Absolute Granulocytes 13.13 H (1.4-6.9) Segmented Neutrophils (36.0-66.0) % Band Neutrophils (0.0-2.0) % Lymphocytes (Manual) (24-44) % Monocytes (Manual) (0.0-12.0) % Eosinophils (Manual) (0.00-3.0) % Basophils # 0.02 (0-0.4) Toxic Granulation Platelet Estimate (NORMAL) RBC Morphology Anisocytosis pO2/FiO2 Ratio % VBG pH (7.32-7.42) VBG pCO2 at Pat Temp (42-55) mm/Hg VBG pO2 at Pat Temp (25-40) mm/Hg VBG HCO3 (22-28) meq/L VBG O2 Sat (Moe) (95-100) VBG Base Excess (-2.0-2.0) VBG Hemoglobin VBG Carboxyhemoglobin (0.0-6.9) % T HGB POC Potassium (3.5-5.1) Sodium 138 (137-145) mmol/L Potassium 4.7 (3.5-5.1) mmol/L Chloride 109 H (98-107) mmol/L Carbon Dioxide 22 (22-30) mmol/L Anion Gap 11.6 (5-15) MEQ/L BUN 36 H (7-17) mg/dL Creatinine 0.99 (0.52-1.04) mg/dL Estimated GFR > 60.0 ML/MIN Glucose 166 H (74-106) mg/dL POC Glucometer 146 H (74 to 106) mg/dL Hemoglobin A1c (4.5-6.0) % Lactic Acid (0.4-2.0) Calcium 9.2 (8.4-10.2) mg/dL Magnesium (1.6-2.3) mg/dL Total Bilirubin (0.2-1.3) mg/dL AST (14-36) U/L ALT (0-35) U/L Alkaline Phosphatase (38-126) U/L Troponin I (0.000-0.034) ng/mL Serum Total Protein (6.3-8.2) g/dL Albumin (3.5-5.0) g/dL Amylase (30-110) U/L Lipase (23-300) U/L Urine Color (YELLOW) Urine Appearance (CLEAR) Urine pH (5-6) Ur Specific [place] (1.005-1.025) Urine Protein (Negative) Urine Ketones (NEGATIVE) Urine Blood (0-5) Tato/ul Urine Nitrite (NEGATIVE) Urine Bilirubin (NEGATIVE) Urine Urobilinogen (0-1) mg/dL Ur Leukocyte Esterase (NEGATIVE) Urine WBC (Auto) (0-5) /HPF Urine RBC (Auto) (0-2) /HPF U Hyaline Cast (Auto) (0-2) /LPF U Epithel Cells (Auto) (FEW) /HPF Urine Bacteria (Auto) (NEGATIVE) /HPF Urine Culture Reflexed (NO) Urine Glucose (NEGATIVE) mg/dL SARS-CoV-2 (PCR) (NEGATIVE) Slides for Path Review YES 05/21/20 05/21/20 05/21/20 Range/Units 05:00 05:00 06:01 WBC (4.0-10.5) K/mm3 RBC (4.1-5.4) M/mm3 Hgb (12.0-16.0) gm/dl Hct (35-47) % MCV (78-100) fl MCH (26-32) pg MCHC (32-36) g/dl RDW (11.5-14.0) % Plt Count (150-450) K/mm3 MPV (7.5-11.0) fl Gran % (36.0-66.0) % Eos # (Auto) (0-0.5) Absolute Lymphs (auto) (1.0-4.6) Absolute Monos (auto) (0.0-1.3) Lymphocytes % (24.0-44.0) % Monocytes % (0.0-12.0) % Eosinophils % (0.00-5.0) % Basophils % (0.0-0.4) % Absolute Granulocytes (1.4-6.9) Segmented Neutrophils (36.0-66.0) % Band Neutrophils (0.0-2.0) % Lymphocytes (Manual) (24-44) % Monocytes (Manual) (0.0-12.0) % Eosinophils (Manual) (0.00-3.0) % Basophils # (0-0.4) Toxic Granulation Platelet Estimate (NORMAL) RBC Morphology Anisocytosis pO2/FiO2 Ratio % VBG pH (7.32-7.42) VBG pCO2 at Pat Temp (42-55) mm/Hg VBG pO2 at Pat Temp (25-40) mm/Hg VBG HCO3 (22-28) meq/L VBG O2 Sat (Moe) (95-100) VBG Base Excess (-2.0-2.0) VBG Hemoglobin VBG Carboxyhemoglobin (0.0-6.9) % T HGB POC Potassium (3.5-5.1) Sodium 138 (137-145) mmol/L Potassium 4.1 (3.5-5.1) mmol/L Chloride 110 H (98-107) mmol/L Carbon Dioxide 21 L (22-30) mmol/L Anion Gap 11.2 (5-15) MEQ/L BUN 33 H (7-17) mg/dL Creatinine 0.89 (0.52-1.04) mg/dL Estimated GFR > 60.0 ML/MIN Glucose 109 H (74-106) mg/dL POC Glucometer 115 H (74 to 106) mg/dL Hemoglobin A1c (4.5-6.0) % Lactic Acid (0.4-2.0) Calcium 9.0 (8.4-10.2) mg/dL Magnesium 1.7 (1.6-2.3) mg/dL Total Bilirubin 0.50 (0.2-1.3) mg/dL AST 31 (14-36) U/L ALT 20 (0-35) U/L Alkaline Phosphatase 112 (38-126) U/L Troponin I (0.000-0.034) ng/mL Serum Total Protein 6.1 L (6.3-8.2) g/dL Albumin 3.1 L (3.5-5.0) g/dL Amylase (30-110) U/L Lipase (23-300) U/L Urine Color (YELLOW) Urine Appearance (CLEAR) Urine pH (5-6) Ur Specific [place] (1.005-1.025) Urine Protein (Negative) Urine Ketones (NEGATIVE) Urine Blood (0-5) Tato/ul Urine Nitrite (NEGATIVE) Urine Bilirubin (NEGATIVE) Urine Urobilinogen (0-1) mg/dL Ur Leukocyte Esterase (NEGATIVE) Urine WBC (Auto) (0-5) /HPF Urine RBC (Auto) (0-2) /HPF U Hyaline Cast (Auto) (0-2) /LPF U Epithel Cells (Auto) (FEW) /HPF Urine Bacteria (Auto) (NEGATIVE) /HPF Urine Culture Reflexed (NO) Urine Glucose (NEGATIVE) mg/dL SARS-CoV-2 (PCR) (NEGATIVE) Slides for Path Review 05/21/20 Range/Units 10:03 WBC (4.0-10.5) K/mm3 RBC (4.1-5.4) M/mm3 Hgb (12.0-16.0) gm/dl Hct (35-47) % MCV (78-100) fl MCH (26-32) pg MCHC (32-36) g/dl RDW (11.5-14.0) % Plt Count (150-450) K/mm3 MPV (7.5-11.0) fl Gran % (36.0-66.0) % Eos # (Auto) (0-0.5) Absolute Lymphs (auto) (1.0-4.6) Absolute Monos (auto) (0.0-1.3) Lymphocytes % (24.0-44.0) % Monocytes % (0.0-12.0) % Eosinophils % (0.00-5.0) % Basophils % (0.0-0.4) % Absolute Granulocytes (1.4-6.9) Segmented Neutrophils (36.0-66.0) % Band Neutrophils (0.0-2.0) % Lymphocytes (Manual) (24-44) % Monocytes (Manual) (0.0-12.0) % Eosinophils (Manual) (0.00-3.0) % Basophils # (0-0.4) Toxic Granulation Platelet Estimate (NORMAL) RBC Morphology Anisocytosis pO2/FiO2 Ratio % VBG pH (7.32-7.42) VBG pCO2 at Pat Temp (42-55) mm/Hg VBG pO2 at Pat Temp (25-40) mm/Hg VBG HCO3 (22-28) meq/L VBG O2 Sat (Moe) (95-100) VBG Base Excess (-2.0-2.0) VBG Hemoglobin VBG Carboxyhemoglobin (0.0-6.9) % T HGB POC Potassium (3.5-5.1) Sodium (137-145) mmol/L Potassium (3.5-5.1) mmol/L Chloride (98-107) mmol/L Carbon Dioxide (22-30) mmol/L Anion Gap (5-15) MEQ/L BUN (7-17) mg/dL Creatinine (0.52-1.04) mg/dL Estimated GFR ML/MIN Glucose (74-106) mg/dL POC Glucometer 185 H (74 to 106) mg/dL Hemoglobin A1c (4.5-6.0) % Lactic Acid (0.4-2.0) Calcium (8.4-10.2) mg/dL Magnesium (1.6-2.3) mg/dL Total Bilirubin (0.2-1.3) mg/dL AST (14-36) U/L ALT (0-35) U/L Alkaline Phosphatase (38-126) U/L Troponin I (0.000-0.034) ng/mL Serum Total Protein (6.3-8.2) g/dL Albumin (3.5-5.0) g/dL Amylase (30-110) U/L Lipase (23-300) U/L Urine Color (YELLOW) Urine Appearance (CLEAR) Urine pH (5-6) Ur Specific [place] (1.005-1.025) Urine Protein (Negative) Urine Ketones (NEGATIVE) Urine Blood (0-5) Tato/ul Urine Nitrite (NEGATIVE) Urine Bilirubin (NEGATIVE) Urine Urobilinogen (0-1) mg/dL Ur Leukocyte Esterase (NEGATIVE) Urine WBC (Auto) (0-5) /HPF Urine RBC (Auto) (0-2) /HPF U Hyaline Cast (Auto) (0-2) /LPF U Epithel Cells (Auto) (FEW) /HPF Urine Bacteria (Auto) (NEGATIVE) /HPF Urine Culture Reflexed (NO) Urine Glucose (NEGATIVE) mg/dL SARS-CoV-2 (PCR) (NEGATIVE) Slides for Path Review Radiology Exams: Radiology Procedures Category Date Time Status OBSTR/ACUTE ABDOMEN SERIES Stat Exams 05/20/20 12:49 Completed Assessment/Plan (1) DKA (diabetic ketoacidoses) Current Visit: Yes Status: Acute Qualifiers: Diabetes mellitus type: type 1 Diabetes mellitus complication detail: without coma Qualified Code(s): E10.10 - Type 1 diabetes mellitus with ketoacidosis without coma Code(s): E13.10 - OTH DIABETES MELLITUS WITH KETOACIDOSIS WITHOUT COMA (2) COLLEEN (acute kidney injury) Current Visit: Yes Status: Acute Code(s): N17.9 - ACUTE KIDNEY FAILURE, UNSPECIFIED (3) Dehydration Current Visit: Yes Status: Resolved Code(s): E86.0 - DEHYDRATION
[2020-05-21 10:36] LABS: ANION GAP 14.5 MEQ/L (5-15); BLOOD UREA NITROGEN 26 mg/dL (7-17); CHLORIDE 106 mmol/L (98-107); Calcium 8.9 mg/dL (8.4-10.2); Carbon Dioxide 20 mmol/L (22-30); EST GLOMERULAR FILTRATION RATE > 60.0 ML/MIN; Glucose 175 mg/dL (74-106); Potassium 4.2 mmol/L (3.5-5.1); SODIUM 137 mmol/L (137-145)
[2020-05-21 19:58] VITALS: O2SAT 96
[2020-05-21] MEDS: XANAX 1 MG PO SCH (21:48)
[2020-05-21] MEDS: Lantus Insulin SQ SCH (21:48)
[2020-05-21] MEDS: ZOCOR 20MG PO SCH (21:48)
[2020-05-21] MEDS ORDERED: Lantus Insulin SQ SCH (22:00)
[2020-05-22] MEDS: HUMALOG SQ PRN (02:20)
[2020-05-22 05:29] LABS: Absolute Neutrophil Ct (ANC) 7.12 (1.4-6.9); BASOPHIL % 0.2 % (0.0-0.4); Basophil (Absolute #) 0.02 (0-0.4); Eosinophil (Absolute #) 0.35 (0-0.5); Hematocrit 38.2 % (35-47); Hemoglobin 12.3 gm/dl (12.0-16.0); Lymphocyte (Absolute #) 3.25 (1.0-4.6); Mean Cell Volume 94.8 fl (78-100); Mean Corpuscular Hemoglobin 30.5 pg (26-32); Mean Corpuscular Hgb Concent. 32.2 g/dl (32-36); Mean Platelet Volume 8.9 fl (7.5-11.0); Monocyte (Absolute #) 0.85 (0.0-1.3); Monocytes % 7.3 % (0.0-12.0); Neutrophil % 61.5 % (36.0-66.0); Platelet Count 370 K/mm3 (150-450); Red Blood Count 4.03 M/mm3 (4.1-5.4); Red Cell Distribution Width 14.3 % (11.5-14.0); White Blood Count 11.6 K/mm3 (4.0-10.5)
[2020-05-22 06:06] LABS: ALBUMIN 3.1 g/dL (3.5-5.0); ALKALINE PHOSPHATASE 105 U/L (38-126); ANION GAP 4.9 MEQ/L (5-15); BLOOD UREA NITROGEN 14 mg/dL (7-17); CHLORIDE 108 mmol/L (98-107); Calcium 9.6 mg/dL (8.4-10.2); Carbon Dioxide 28 mmol/L (22-30); Creatinine 1 0.63 mg/dL (0.52-1.04); EST GLOMERULAR FILTRATION RATE > 60.0 ML/MIN; Glucose 83 mg/dL (74-106); MAGNESIUM 1.7 mg/dL (1.6-2.3); Potassium 3.5 mmol/L (3.5-5.1); SGOT/AST 34 U/L (14-36); SGPT/ALT 19 U/L (0-35); SODIUM 137 mmol/L (137-145); Total Protein 6.1 g/dL (6.3-8.2)
[2020-05-22 06:56] VITALS: PULSE 101
[2020-05-22 07:10] VITALS: BP 142/74
--- NOTE | 2020-05-23 08:50 | PCM.DS ---
Discharge Summary Date of Admission: 05/20/20 16:09 Admitting Physician: LYUDMILA ARIAS Primary Care Provider: LYUDMILA ARIAS Allergies Allergies orphenadrine citrate [From Norflex] Allergy (Intermediate, Verified 05/20/20 16:58) severe vomiting adhesive tape Allergy (Verified 05/20/20 16:58) hydrocodone bitartrate [From [place]] Adverse Reaction (Mild, Verified 05/20/20 16:58) nausea vomiting levofloxacin [From Levaquin] Adverse Reaction (Mild, Verified 05/20/20 16:58) Nausea and Vomiting Hospital Summary - Hospital Course Hospital Course: Chief Complaint Diagnosis DKA, COLLEEN Allergies Allergy/AdvReac Type Severity Reaction Status Date / Time orphenadrine citrate Allergy Intermediate Verified 05/20/20 16:58 [From Norflex] adhesive tape Allergy Verified 05/20/20 16:58 hydrocodone bitartrate AdvReac Mild Verified 05/20/20 16:58 [From [place]] levofloxacin [From Levaquin] AdvReac Mild Nausea and Verified 05/20/20 16:58 Vomiting Current Medications Discontinued Medications Generic Name Dose Route Start Last Admin Trade Name Freq PRN Reason Stop Dose Admin Acetaminophen 650 mg 05/20/20 16:16 Tylenol 325 Mg PO 06/19/20 16:15 Q4H PRN PRN PAIN AND/OR FEVER Albuterol Sulfate 2 puff 05/20/20 17:44 Ventolin Common Canister IH 06/19/20 17:43 Q4H PRN PRN cough or wheeze Albuterol/Ipratropium 3 ml 05/20/20 16:16 Duoneb 0.5-3 Mg/3 Ml Neb IH 06/19/20 16:15 Q4HPRN PRN SHORTNESS OF BREATH/WHEEZING Alprazolam 1 mg 05/20/20 22:00 05/21/20 21:48 Xanax 1 Mg PO 06/19/20 21:59 1 mg HS NISSA Administration Cyclobenzaprine HCl 10 mg 05/20/20 18:00 05/21/20 21:48 Cyclobenzaprine 10 Mg PO 06/19/20 17:59 10 mg QID NISSA Administration Ergocalciferol 50,000 unit 05/25/20 10:00 Vitamin D2 PO 06/24/20 09:59 MO NISSA Sodium Chloride 1,000 mls @ 999 mls/hr 05/20/20 12:47 05/20/20 15:53 Sodium Chloride 0.9% 1000 Ml IV 05/20/20 13:47 Infused .Q1H1M STA Infusion Sodium Chloride Confirm 05/20/20 12:58 Sodium Chloride 0.9% 1000 Ml Administered 05/20/20 12:59 Dose 1,000 mls @ ud .ROUTE .STK-MED ONE Insulin Human Regular 100 unit 100 mls @ ud 05/20/20 14:47 / Sodium Chloride IV 05/20/20 14:48 .STK-MED ONE Sodium Chloride Confirm 05/20/20 15:45 Sodium Chloride 0.9% 1000 Ml Administered 05/20/20 15:46 Dose 1,000 mls @ ud .ROUTE .STK-MED ONE Insulin Human Regular 100 unit 100 mls @ 6.3 mls/hr 05/20/20 15:00 05/21/20 00:00 / Sodium Chloride IV 06/19/20 14:59 0 mls/hr .[id number] NISSA 0 mls/hr Infusion Sodium Chloride 1,000 mls @ 150 mls/hr 05/20/20 16:45 05/20/20 16:55 Sodium Chloride 0.9% 1000 Ml IV 06/19/20 16:44 150 mls/hr .Q6H40M NISSA Administration Potassium Chloride/Dextrose/Sod Cl 1,000 mls @ 100 mls/hr 05/20/20 23:00 05/20/20 22:39 D5w/0.45ns W/ 20meq Kcl 1000 Ml IV 06/19/20 22:59 150 mls/hr .Q10H NISSA Administration Insulin Glargine 20 unit 05/21/20 22:00 Lantus Insulin SQ 06/20/20 21:59 HS NISSA Insulin Glargine Confirm 05/20/20 23:02 Lantus Insulin Administered 05/20/20 23:03 Dose 20 unit .ROUTE .STK-MED ONE Insulin Glargine 20 unit 05/21/20 23:04 05/21/20 21:48 Lantus Insulin SQ 06/20/20 23:03 20 unit HS NISSA Administration Insulin Human Lispro 0 unit 05/20/20 17:45 05/22/20 02:20 Humalog SQ 06/19/20 17:44 3 unit UD PRN Administration Insulin Human Regular Confirm 05/20/20 14:49 Humulin R Administered 05/20/20 14:50 Dose 6 unit .ROUTE .STK-MED ONE Metoprolol Tartrate 50 mg 05/20/20 18:00 05/21/20 09:23 Lopressor 50 Mg PO 06/19/20 17:59 50 mg DAILY NISSA Administration Nicotine 21 mg 05/20/20 18:00 05/20/20 18:01 Nicoderm Cq 21 Mg TOP 05/20/20 18:01 21 mg STAT ONE Administration Ondansetron HCl 4 mg 05/20/20 12:47 05/20/20 14:42 Zofran 4 Mg/2 Ml Vial IV 05/20/20 12:48 4 mg STAT ONE Administration Ondansetron HCl Confirm 05/20/20 12:58 Zofran 4 Mg/2 Ml Vial Administered 05/20/20 12:59 Dose 4 mg .ROUTE .STK-MED ONE Ondansetron HCl 4 mg 05/20/20 16:16 05/20/20 16:53 Zofran 4 Mg/2 Ml Vial IV 06/19/20 16:15 4 mg Q6H PRN PRN Administration NAUSEA/VOMITING Pantoprazole Sodium 40 mg 05/20/20 17:00 05/21/20 09:24 Protonix 40 Mg Iv IV 06/19/20 16:59 40 mg Q24H10 NISSA Administration Promethazine HCl Confirm 05/20/20 13:15 Phenergan 25 Mg Inj Administered 05/20/20 13:16 Dose 25 mg .ROUTE .STK-MED ONE Promethazine HCl 25 mg 05/20/20 13:24 05/20/20 13:25 Phenergan 25 Mg Inj IM 05/20/20 13:25 25 mg STAT ONE Administration Promethazine HCl 25 mg 05/20/20 17:30 05/21/20 08:42 Phenergan 25 Mg Inj IM 06/19/20 17:29 25 mg Q6H PRN PRN Administration NAUSEA/VOMITING Simvastatin 40 mg 05/20/20 22:00 01/21/21 21:48 Zocor 20mg PO 06/19/20 21:59 40 mg HS NISSA Administration Intake & Output (Last 24 hours) 05/20/20 05/21/20 05/22/20 05/23/20 11:59 11:59 11:59 11:59 Intake Total 3306 1310 Output Total 400 Balance 2906 1310 Weight 64 kg 63.7 kg Orders (Last 24 hours) Category Date Time Status Ergocalciferol (Vitamin D2) [Vitamin D2] Med 05/25/20 10:00 Discontinued 50,000 unit PO MO Patient Care Notes (Last 24 hours) 05/22/20 09:01 Case Management Note by Arianna Baker PATIENT CONTINUES TO DENY ANY NEW NEEDS AT TIME OF DC, 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 Initialized on 05/22/20 09:01 - END OF NOTE - Vitals & Intake/Output Vital Signs: Vital Signs Temperature 98 F 05/22/20 07:10 Pulse Rate 101 H 05/22/20 07:10 Respiratory Rate 16 05/22/20 07:10 Blood Pressure 142/74 05/22/20 07:10 O2 Sat by Pulse Oximetry 96 05/22/20 07:10 Intake & Output: Intake & Output 05/20/20 05/21/20 05/22/20 05/23/20 11:59 11:59 11:59 11:59 Intake Total 3306 1310 Output Total 400 Balance 2906 1310 Weight 64 kg 63.7 kg - Lab Result Diagrams: 05/22/20 04:32 05/22/20 04:32 Micro Results-Entire Visit: Microbiology 05/20/20 13:00 Blood Culture - Preliminary Blood NO GROWTH TO DATE - Procedures and Test Procedures and Tests throughout Hospitalization: Therapy Orders & Screens 05/20/20 16:16 Oxygen Nasal Cannula 2 lpm Comment: 05/20/20 16:28 Respiratory Therapy Assessment DAILY Comment: Discharge Exam General Appearance: no apparent distress, alert Neurologic Exam: alert, oriented x 3, cooperative, normal mood/affect, nml cerebellar function, sensation nml, No motor deficits Eye Exam: PERRL, EOMI, eyes nml inspection Ears, Nose, Throat Exam: normal ENT inspection, pharynx normal, moist mucous membranes Neck Exam: normal inspection, non-tender, supple, full range of motion Respiratory Exam: normal breath sounds, lungs clear, No respiratory distress Cardiovascular Exam: regular rate/rhythm, normal heart sounds Gastrointestinal/Abdomen Exam: soft, No tenderness, No mass Pelvic Exam: deferred Rectal Exam: deferred Back Exam: normal inspection, normal range of motion, No CVA tenderness, No vertebral tenderness Extremity Exam: normal inspection, normal range of motion Skin Exam: normal color, warm, dry Final Diagnosis/Problem List - Final Discharge Diagnosis/Problem (1) DKA (diabetic ketoacidoses) Status: Resolved Code(s): E13.10 - OTH DIABETES MELLITUS WITH KETOACIDOSIS WITHOUT COMA (2) COLLEEN (acute kidney injury) Status: Resolved Code(s): N17.9 - ACUTE KIDNEY FAILURE, UNSPECIFIED (3) Dehydration Status: Resolved Code(s): E86.0 - DEHYDRATION - Discharge Discharge Date: 05/22/20 Disposition: Home, Self-Care Condition: Stable Prescriptions: Continue PANTOPRAZOLE 40 mg Tablet [Protonix 40MG Tablet] 40 mg PO DAILY Promethazine HCl 25 mg [Phenergan 25 mg] 25 mg PO Q6HPRN PRN PRN Reason: Nausea Insulin Lispro [Humalog] 1 unit SQ UD Albuterol Sulfate [Albuterol Sulfate Hfa] 2 puff IH Q4-6HPRN PRN #1 [id number].[id number] PRN Reason: cough or wheeze Cyclobenzaprine HCl 10 mg [Cyclobenzaprine 10 MG] 10 mg PO QID Alprazolam 1 mg [Xanax 1 mg] 1 mg PO HS Atorvastatin Calcium 40 mg PO HS Metoprolol Tartrate 50 mg PO DAILY Ergocalciferol (Vitamin D2) [Vitamin D2] 50,000 unit PO MO Instructions: Diabetic Ketoacidosis (DC) Follow up with: LYUDMILA ARIAS MD [Primary Care Provider] - 7 Days Forms: Discharge Instructions
[2020-05-25] MEDS ORDERED: VITAMIN D2 PO SCH (10:00)
== END 2020-05-22 08:50 | disposition home or self-care (01) | DRG 638 ==
LOC: ED 12:26 → ICU 16:09
PROVIDERS: ADMIT General Practice; ATTEND General Practice
DX: E10.10 Type 1 diabetes mellitus with ketoacidosis without coma (principal); N17.9 Acute kidney failure, unspecified; Z96.41 Presence of insulin pump (external) (internal); E86.0 Dehydration; Z79.899 Other long term (current) drug therapy; R11.2 Nausea with vomiting, unspecified; R53.1 Weakness; I10 Essential (primary) hypertension; Z86.79 Personal history of other diseases of the circulatory system; E78.00 Pure hypercholesterolemia, unspecified
CPT/HCPCS: 36000; 36415; 74022; 76942; 80048; 80053; 81001; 82150; 82805; 82947; 83036; 83605; 83690; 83735; 84484; 85025; 87040; 93005; 96360; 96365; 96372; 96374; 99285; 99291; J1815; J1817; J2405; J2550; U0003; A9270-GY

== ENCOUNTER 2020-07-15 10:45 | Emergency (ER) | payer OTHER ==
[2020-07-15] MEDS ORDERED: TORAdol 30 mg Injection IM ONE (11:08)
[2020-07-15] MEDS ORDERED: TORAdol 30 mg Injection ONE (11:09)
--- NOTE | 2020-07-15 11:27 | ERPHSYRPT ---
- History of Present Illness Time Seen by Provider: 07/15/20 11:00 Source: patient Exam Limitations: no limitations Patient Subjective Stated Complaint: Left knee pain Triage Nursing Assessment: Patient brought back to ED via w/c and assisted to be d with assist of 3. Patient A+O X3. Patient's skin pink, warm and dry. Patient states she felt her sugar getting low and pulled into a gas station to get sugar when she fell landing on her left knee. Left knee noted to be painful and swollen 10/10 constant sharp pain. Patient unable to bear weight to left leg. Physician History: Patient is a 59-year-old female presents to our emergency department for evaluation of left knee pain. Patient states she was exiting her truck when she fell onto her left knee. Pain described as an ache that is well localized. No radiation. Pain worse with weightbearing and extension of the left knee. Palpation also reproduces symptoms. Pain improved with rest. No other injuries. Patient states her fall was due to low blood sugar. Patient states that her blood sugar frequently drops due to her insulin pump. She has since turned off her insulin pump and now she is otherwise asymptomatic. Patient declined a work-up for her hypoglycemia. Patient states she is only here for her knee. She has no other complaints. No BHT or LOC. No neck pain. C-spine cleared clinically. No chest pain or shortness of breath. Patient voices no other complaints at this time. Method of Injury: fell Occurred: just prior to arrival Quality: constant Severity of Pain-Max: moderate Severity of Pain-Current: mild Lower Extremities Pain: knee: left Modifying Factors: Improves With: movement Associated Symptoms: none Allergies/Adverse Reactions: orphenadrine citrate [From Norflex] Allergy (Intermediate, Verified 07/15/20 10:57) severe vomiting adhesive tape Allergy (Verified 07/15/20 10:57) hydrocodone bitartrate [From Hallie] Adverse Reaction (Mild, Verified 07/15/20 10:57) nausea vomiting levofloxacin [From Levaquin] Adverse Reaction (Mild, Verified 07/15/20 10:57) Nausea and Vomiting Home Medications: Insulin Lispro [Humalog] 1 unit SQ UD 11/14/16 [History] PANTOPRAZOLE 40 mg Tablet [Protonix 40MG Tablet] 40 mg PO DAILY 11/14/16 [History] Promethazine HCl 25 mg [Phenergan 25 mg] 25 mg PO Q6HPRN PRN 11/14/16 [History] Cyclobenzaprine HCl 10 mg [Cyclobenzaprine 10 MG] 10 mg PO QID 02/13/19 [History] Alprazolam 1 mg [Xanax 1 mg] 1 mg PO HS 08/25/19 [History] Atorvastatin Calcium 40 mg PO HS 08/25/19 [History] Ergocalciferol (Vitamin D2) [Vitamin D2] 50,000 unit PO MO 08/25/19 [History] Metoprolol Tartrate 50 mg PO DAILY 08/25/19 [History] Hx Tetanus, Diphtheria Vaccination/Date Given: Yes Hx Influenza Vaccination/Date Given: Yes Hx Pneumococcal Vaccination/Date Given: Yes Immunizations Up to Date: Yes Travel Risk - International Travel Have you traveled outside of the country in past 3 weeks: No - Coronavirus Screening Are you exhibiting any of the following symptoms?: No Close contact with a COVID-19 positive Pt in past 14-21 Days: No - Review of Systems Constitutional: No Symptoms, No Fever, No Chills Eyes: No Symptoms Ears, Nose, & Throat: No Symptoms Respiratory: No Symptoms, No Cough, No Dyspnea Cardiac: No Symptoms, No Chest Pain, No Edema, No Syncope Abdominal/Gastrointestinal: No Symptoms, No Abdominal Pain, No Nausea, No Vomiting, No Diarrhea Genitourinary Symptoms: No Symptoms, No Dysuria Musculoskeletal: No Symptoms, No Back Pain, No Neck Pain Skin: No Symptoms, No Rash Neurological: No Symptoms, No Dizziness, No Focal Weakness, No Sensory Changes Psychological: No Symptoms Endocrine: No Symptoms Hematologic/Lymphatic: No Symptoms Immunological/Allergic: No Symptoms All Other Systems: Reviewed and Negative - Past Medical History Pertinent Past Medical History: Yes Neurological History: No Pertinent History ENT History: No Pertinent History Cardiac History: Coronary Artery Disease, High Cholesterol, Hypertension Respiratory History: Bronchitis, COPD Endocrine Medical History: Diabetes Type II Musculoskeletal History: Degenerative Disk Disease, Other GI Medical History: GERD History: Renal Disease Psycho-Social History: Anxiety, Depression Female Reproductive Disorders: No Pertinent History Other Medical History: HAS INSULIN PUMP. cardiac STENT PLACEMENT X 2, back problem, renal failure. DKA, SI JOINT PULLED - Past Surgical History Past Surgical History: Yes Neuro Surgical History: No Pertinent History Cardiac: Cardiac Catheterization, Cardiac Stent Respiratory: No Pertinent History Gastrointestinal: Cholecystectomy Genitourinary: No Pertinent History Musculoskeletal: Other Female Surgical History: Tubal Ligation Other Surgical History: BUNONECTOMY. BACK SURGERY X2 - Social History Smoking Status: Current every day smoker How long have you smoked: 30 YEARS Exposure to second hand smoke: Yes Alcohol Use: None Drug Use: none Patient Lives Alone: No Significant Family History: heart disease, diabetes, hypertension - Female History Hx Now: No - Nursing Vital Signs Nursing Vital Signs: Initial Vital Signs Temperature 97.7 F 07/15/20 10:58 Pulse Rate 93 H 07/15/20 10:58 Respiratory Rate 18 07/15/20 10:58 Blood Pressure 158/81 07/15/20 10:58 O2 Sat by Pulse Oximetry 98 07/15/20 10:58 Pain Scale Pain Intensity 4 - Physical Exam General Appearance: no apparent distress, alert Eyes, Ears, Nose, Throat Exam: moist mucous membranes Neck Exam: non-tender, supple Cardiovascular/Respiratory Exam: chest non-tender, normal breath sounds, regular rate/rhythm, no respiratory distress Gastrointestinal/Abdominal Exam: non-tender, guarding Back Exam: normal inspection, No vertebral tenderness Hips Exam: bilateral: non-tender, normal inspection, normal range of motion, no evidence of injury Legs Exam: bilateral leg: non-tender, normal inspection, normal range of motion, no evidence of injury Knees Exam: right knee: non-tender, normal inspection, normal range of motion, no evidence of injury, left knee: pain, swelling, bilateral knee: other (Both extremities are neurovascularly intact distally. Compartments are soft. PT DP pulses are palpable. Cap refill less than 2 seconds. Extremities are warm pink well perfused.) Ankle Exam: bilateral ankle: non-tender, normal inspection, normal range of motion, no evidence of injury Foot Exam: bilateral foot: non-tender, normal inspection, normal range of motion, no evidence of injury Neuro/Tendon Exam: normal sensation, normal motor functions Mental Status Exam: alert, oriented x 3, cooperative Skin Exam: normal color, warm, dry SpO2 Interpretation: normal SpO2: 98 O2 Delivery: Room Air - Course Nursing assessment & vital signs reviewed: Yes Ordered Tests: Active Orders 24 hr Category Date Time Status KNEE (1 OR 2 VIEW) Stat Exams 07/15/20 11:06 Completed LOWER EXTREMITY WO CONTRAST [CT] Stat Exams 07/15/20 12:32 Completed Medication Summary Discontinued Medications Generic Name Dose Route Start Last Admin Trade Name Petrona PRArgenis Reason Stop Dose Admin Ketorolac Tromethamine 30 mg 07/15/20 11:08 07/15/20 11:11 Toradol 30 Mg Injection IM 07/15/20 11:09 30 mg STAT ONE Administration Ketorolac Tromethamine Confirm 07/15/20 11:09 Toradol 30 Mg Injection Administered 07/15/20 11:10 Dose 30 mg .ROUTE .STK-MED ONE Morphine Sulfate 4 mg 07/15/20 13:26 07/15/20 13:34 Morphine Sulfate 4 Mg Inj IV 07/15/20 13:27 Not Given STAT ONE Morphine Sulfate Confirm 07/15/20 13:28 Morphine Sulfate 4 Mg Inj Administered 07/15/20 13:29 Dose 4 mg .ROUTE .STK-MED ONE Morphine Sulfate 4 mg 07/15/20 13:34 07/15/20 13:38 Morphine Sulfate 4 Mg Inj IM 07/15/20 13:35 4 mg STAT ONE Administration - Progress Progress: improved Progress Note: Patient reassessed. She states she feels well. Patient declined a work-up for her fall. Patient denies chest pain shortness of breath. No nausea vomiting or diaphoresis. Patient states she only wants her knee checked out. X-ray revealed a lateral epicondylar fracture of the femur as well as a fibular neck fracture. Follow-up CT scan was completed. CT scan confirmed the findings on the x-ray. There was significant hemarthrosis observed in the knee. Orthopedic surgery was notified. Patient was evaluated by orthopedics at the bedside. Ortho [employer] performed a arthrocentesis. Ortho applied a hinged knee brace. Patient was given bilateral axillary crutches. Ortho arrange for follow-up. Patient continues to feel well. She does not want a work-up at this time. Patient understands that declining a work-up may result in delayed diagnosis, increased risk of morbidity, mortality, short long-term disability including . In spite of her risks patient states she feels fine and does not want a work-up. Patient agrees to follow-up with her primary care doctor within 48 hours for reevaluation. She understands she may return to our ED at any point if she changes her mind. We will discharge patient home at this time. Patient voices no other complaints or concerns at this time. 07/15/20 15:55 Portions of this note were created with voice recognition technology. There may be grammatical, spelling, punctuation or sound alike errors 07/15/20 16:16 Counseled pt/family regarding: diagnosis, rad results - Departure Departure Disposition: Home Clinical Impression: Supracondylar fracture of femur, Fracture of head of fibula, Hemarthrosis, Vascular calcification, Fall Condition: Stable Critical Care Time: No Referrals: LYUDMILA ARIAS MD [Primary Care Provider] - Instructions: Knee Pain (DC) Additional Instructions: Discharge/Care Plan NANNETTE MEDINA was seen on 07/15/20 in the Emergency Room. The patient was counseled regarding Diagnosis,Lab results, Imaging studies, need for follow up and when to return to the Emergency Room. Prescriptions given: Discharge Note I have spoken with the patient and/or caregivers. I have explained the patient's condition, diagnosis and treatment plan based on the information available to me at this time. I have answered the patient's and/or caregiver's questions and addressed any concerns. The patient and/or caregivers have as good understanding of the patient's diagnosis, condition and treatment plan as can be expected at this point. The vital signs have been stable. The patient's condition is stable and appropriate for discharge from the emergency department. The patient will pursue further outpatient evaluation with the primary care physician or other designated or consulting physician as outlined in the discharge instructions. The patient and/or caregivers are agreeable to this plan of care and follow-up instructions have been explained in detail. The patient and/or caregivers have received these instruction. The patient/and or caregivers are aware that any significant change in condition or worsening of symptoms should prompt an immediate return to this or the closest emergency department or call 911.
--- NOTE | 2020-07-15 11:50 | XRAY ---
Indication: Pain following fall. Comparison: None AP/lateral left knee demonstrates nondisplaced medial condyle/supracondylar fracture, nondisplaced fibula head fracture, soft tissue swelling, hemarthrosis, and scattered vascular calcifications. No other bony, articular, or soft tissue abnormalities.
[2020-07-15] MEDS ORDERED: MORPHINE SULFATE 4 MG INJ IV ONE (13:26)
[2020-07-15] MEDS ORDERED: MORPHINE SULFATE 4 MG INJ ONE (13:28)
--- NOTE | 2020-07-15 13:32 | XRAY ---
Indication: Pain following fall. Fracture on same-day radiograph. Multiple contiguous axial images obtained through the left knee. Sagittal and coronal reformatted images obtained. Comparison: None There is nondisplaced lateral femoral condyle/supracondylar nondisplaced fracture with large hemarthrosis. Fracture line extends to the intercondylar notch and shaft of the femur posterior laterally. Also nondisplaced fibular head fracture. Mild scattered vascular calcifications. Remaining visualized noncontrasted soft tissues are unremarkable. Impression: Nondisplaced lateral condyle, supracondylar, and fibular head fractures as detailed. Large hemarthrosis.
[2020-07-15] MEDS ORDERED: MORPHINE SULFATE 4 MG INJ IM ONE (13:34)
[2020-07-15 16:18] VITALS: BP 157/80; PULSE 96; O2SAT 96
== END 2020-07-15 16:26 | disposition home or self-care (01) ==
LOC: ED 10:45
DX: S72.452A Displaced supracondylar fracture without intracondylar extension of lower end of left femur, initial encounter for closed fracture (principal); M25.562 Pain in left knee; Z79.899 Other long term (current) drug therapy; W18.30XA Fall on same level, unspecified, initial encounter; E11.649 Type 2 diabetes mellitus with hypoglycemia without coma; Z96.41 Presence of insulin pump (external) (internal); I25.10 Atherosclerotic heart disease of native coronary artery without angina pectoris; E78.00 Pure hypercholesterolemia, unspecified; I10 Essential (primary) hypertension; J44.9 Chronic obstructive pulmonary disease, unspecified; S82.832A Other fracture of upper and lower end of left fibula, initial encounter for closed fracture
CPT/HCPCS: 73560; 73700; 96372; 99241; 99284; J1885; J2270

== ENCOUNTER 2021-01-07 21:21 | Emergency (ER) | payer OTHER ==
--- NOTE | 2021-01-07 21:28 | ERPHSYRPT ---
- History of Present Illness Time Seen by Provider: 01/07/21 21:28 Source: patient Exam Limitations: no limitations Physician History: This is a 60-year-old white female who is a insulin-dependent diabetic, has coronary artery disease and cardiac stents in place as well as hypertension, elevated cholesterol, gastroesophageal reflux disease COPD and anxiety and presents with headache, right wrist pain and right rib pain after a fall she sustained prior to arrival after tripping over a gas hose when she was putting gas in her car on her way to work. She is not short of breath she has no abdominal pain she did not lose consciousness. Patient's last tetanus was chris roximately 5 years ago. Occurred: just prior to arrival Injuries/Pain Location: head, upper extremity (Right wrist), chest (Right ribs) Loss of Consciousness: no loss of consciousness Quality: aching Severity of Pain-Max: moderate Severity of Pain-Current: moderate Modifying Factors: Improves With: movement Associated Symptoms (Fall): chest pain (Right ribs), extremity injury (Right wrist), No confusion Allergies/Adverse Reactions: orphenadrine citrate [From Norflex] Allergy (Intermediate, Verified 01/07/21 22:01) severe vomiting adhesive tape Allergy (Verified 01/07/21 22:01) hydrocodone bitartrate [From [place]] Adverse Reaction (Mild, Verified 01/07/21 22:01) nausea vomiting levofloxacin [From Levaquin] Adverse Reaction (Mild, Verified 01/07/21 22:01) Nausea and Vomiting Home Medications: Insulin Lispro [Humalog] 1 unit SQ UD 11/14/16 [History] Promethazine HCl 25 mg [Phenergan 25 mg] 25 mg PO Q6HPRN PRN 11/14/16 [History] Cyclobenzaprine HCl 10 mg [Cyclobenzaprine 10 MG] 10 mg PO QID 02/13/19 [History] ALPRAZolam 1 MG [Xanax 1 mg] 1 mg PO HS 08/25/19 [History] Atorvastatin Calcium 40 mg PO HS 08/25/19 [History] Metoprolol Tartrate 50 mg PO DAILY 08/25/19 [History] Hx Tetanus, Diphtheria Vaccination/Date Given: Yes Hx Influenza Vaccination/Date Given: Yes Hx Pneumococcal Vaccination/Date Given: Yes Travel Risk - International Travel Have you traveled outside of the country in past 3 weeks: No - Coronavirus Screening Are you exhibiting any of the following symptoms?: No Close contact with a COVID-19 positive Pt in past 14-21 Days: No - Review of Systems Constitutional: No Symptoms Eyes: No Symptoms Ears, Nose, & Throat: No Symptoms Respiratory: No Symptoms Cardiac: No Symptoms Abdominal/Gastrointestinal: No Symptoms Genitourinary Symptoms: No Symptoms Musculoskeletal: Fall, Injury (Right ribs, right wrist) Skin: No Symptoms Neurological: No Symptoms, Headache Psychological: No Symptoms Endocrine: No Symptoms Hematologic/Lymphatic: No Symptoms Immunological/Allergic: No Symptoms All Other Systems: Reviewed and Negative - Past Medical History Pertinent Past Medical History: Yes Neurological History: No Pertinent History ENT History: No Pertinent History Cardiac History: Coronary Artery Disease, High Cholesterol, Hypertension Respiratory History: Asthma, Bronchitis, COPD, Emphysema, Pneumonia Endocrine Medical History: Diabetes Type I, Hypoglycemia Musculoskeletal History: Fractures GI Medical History: GERD History: Renal Disease Psycho-Social History: Anxiety, Depression Female Reproductive Disorders: No Pertinent History Other Medical History: Previous R 3rd to fx many years ago - Past Surgical History Past Surgical History: Yes Neuro Surgical History: No Pertinent History Cardiac: Cardiac Catheterization, Cardiac Stent Respiratory: No Pertinent History Gastrointestinal: Cholecystectomy Genitourinary: No Pertinent History Musculoskeletal: Other Female Surgical History: Tubal Ligation Other Surgical History: BUNONECTOMY. BACK SURGERY X2 - Social History Smoking Status: Current every day smoker How long have you smoked: 30 YEARS Exposure to second hand smoke: Yes Alcohol Use: None Drug Use: none Patient Lives Alone: No Significant Family History: heart disease, diabetes, hypertension - Nursing Vital Signs Nursing Vital Signs: Initial Vital Signs Temperature 98.2 F 01/07/21 21:21 Pulse Rate 87 01/07/21 21:21 Respiratory Rate 20 01/07/21 21:21 Blood Pressure 145/70 01/07/21 21:21 O2 Sat by Pulse Oximetry 97 01/07/21 21:21 Pain Scale Pain Intensity 10 - Charline Coma Score Best Eye Response (Charline): (4) open spontaneously Best Verbal Response (Charline): (5) oriented Best Motor Response (Charline): (6) obeys commands [address] Total: 15 - Physical Exam General Appearance: no apparent distress, alert, anxiety Head Injury: tenderness (Mild ecchymosis and superficial abrasion right forehead) Eye Exam: PERRL/EOMI, eyes nml inspection ENT Exam: airway nml, nml ext.inspection, No evidence of ENT injury Neck Exam: supple, trachea midline, full range of motion, normal alignment, normal inspection Respiratory/Chest Exam: normal breath sounds, No chest tenderness, No respiratory distress, No ecchymosis, No crepitus Cardiovascular Exam: normal heart sounds, regular rate/rhythm, No murmur Gastrointestinal Exam: soft, normal bowel sounds, No tenderness Rectal Exam: not done Back Exam: normal inspection, normal range of motion, No CVA tenderness, No vertebral tenderness Extremity Exam: capillary refill <3 sec, deformities (? 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, normal mood/affect, nml cerebellar function, nml station & gait, sensation nml Skin Exam: abrasion (Right hand palmar aspect left hand right forehead), ecchymosis SpO2 Interpretation: normal O2 Delivery: Room Air - Course Nursing assessment & vital signs reviewed: Yes Ordered Tests: Active Orders 24 hr Category Date Time Status HEAD WITHOUT CONTRAST [CT] Stat Exams 01/07/21 22:29 Taken RIBS UNILATERAL Stat Exams 01/07/21 22:29 Taken WRIST (MIN 3 VIEWS) Stat Exams 01/07/21 22:30 Taken Medication Summary Discontinued Medications Generic Name Dose Route Start Last Admin Trade Name Freq PRN Reason Stop Dose Admin Diphtheria/Tetanus/Acell Pertussis 0.5 ml 01/07/21 22:40 Adacel Vial IM 01/07/21 22:41 .ONCE ONE Morphine Sulfate 4 mg 01/07/21 22:52 01/07/21 22:57 Morphine Sulfate 4 Mg Inj IM 01/07/21 22:53 4 mg STAT ONE Administration Morphine Sulfate Confirm 01/07/21 22:54 Morphine Sulfate 4 Mg Inj Administered 01/07/21 22:55 Dose 4 mg .ROUTE .STK-MED ONE Ondansetron HCl 4 mg 01/07/21 22:52 01/07/21 22:56 Zofran Odt 4 Mg PO 01/07/21 22:53 4 mg STAT ONE Administration Ondansetron HCl Confirm 01/07/21 22:54 Zofran Odt 4 Mg Administered 01/07/21 22:55 Dose 4 mg .ROUTE .STK-MED ONE - Progress Progress: improved, pain not gone completely, re-examined Progress Note: 01/08/21 00:27 CAT scan of the head without contrast shows no acute intracranial findings. Small hematoma overlying the right frontal bone. X-ray of right wrist shows a nondisplaced distal radial fracture. X-ray of right ribs show no acute rib fracture and no pneumothorax. 01/08/21 00:36 Post splint neurovascular check intact. Counseled pt/family regarding: diagnosis, need for follow-up, rad results - Departure Departure Disposition: Home Clinical Impression: Fall with injury, Head injury, Fracture of right distal radius Condition: Stable Critical Care Time: No Referrals: LYUDMILA ARIAS MD [Primary Care Provider] - ON LICENSE OF [facility] [id number] Additional Instructions: Ice pack to right wrist, right ribs and right head injury site 3 times a day for the next 48 hours. Take your pain medicine as prescribed. May add Tylenol and ibuprofen for pain control as discussed. Follow-up with the orthopedic clinic here at [facility] this morning between 8 AM and 10 AM for further management. Keep all abrasion sites clean with soap and water daily. Forms: Work/School Release Form
[2021-01-07] MEDS ORDERED: Adacel Vial IM ONE (22:40)
[2021-01-07] MEDS ORDERED: MORPHINE SULFATE 4 MG INJ IM ONE (22:52)
[2021-01-07] MEDS ORDERED: ZOFRAN ODT 4 MG PO ONE (22:52)
[2021-01-07] MEDS ORDERED: MORPHINE SULFATE 4 MG INJ ONE (22:54)
[2021-01-07] MEDS ORDERED: ZOFRAN ODT 4 MG ONE (22:54)
[2021-01-08] MEDS ORDERED: ULTRAM 50 MG PO ONE ×2 (00:37→00:50)
[2021-01-08] MEDS ORDERED: MORPHINE SULFATE 4 MG INJ IM ONE (00:37)
[2021-01-08] MEDS ORDERED: MORPHINE SULFATE 4 MG INJ ONE (00:48)
[2021-01-08] MEDS ORDERED: ULTRAM 50 MG ONE (01:08)
[2021-01-08 01:23] VITALS: BP 162/87; PULSE 74; O2SAT 98
--- NOTE | 2021-01-08 08:59 | XRAY ---
Indication: Right frontal temporal head injury following fall. Multiple contiguous axial images obtained through the head without contrast. Comparison: October 14, 2015. New small right temporoparietal scalp hematoma. Normal appearing brain parenchyma, ventricles, and bony calvarium for patient's age. Visualized paranasal sinuses and mastoid air cells are clear. Impression: Small right temporal parietal scalp hematoma. Remaining CT head without contrast exam is normal. Comment: Preliminary interpretation made by [facility]. No critical discrepancy.
--- NOTE | 2021-01-08 09:01 | XRAY ---
Indication: Pain following fall. Comparison: None 2 view right ribs demonstrates mild osteopenia, cholecystotomy clips, scattered aortic calcifications, and splenic calcified granulomas. No other bony, articular, or soft tissue abnormalities.
--- NOTE | 2021-01-08 09:04 | XRAY ---
Indication: Pain following fall. Comparison: None 3 view right wrist demonstrates nondisplaced distal radius fracture with intra-articular extension, minimally displaced ulnar styloid fracture, and soft tissue swelling. Incidental mild osteopenia. Remaining wrist unremarkable.
== END 2021-01-08 01:30 | disposition home or self-care (01) ==
LOC: ED 21:21
DX: S00.93XA Contusion of unspecified part of head, initial encounter (principal); S52.501A Unspecified fracture of the lower end of right radius, initial encounter for closed fracture; W01.198A Fall on same level from slipping, tripping and stumbling with subsequent striking against other object, initial encounter; Y92.524 Gas station as the place of occurrence of the external cause; I25.10 Atherosclerotic heart disease of native coronary artery without angina pectoris; I10 Essential (primary) hypertension; E78.00 Pure hypercholesterolemia, unspecified; K21.9 Gastro-esophageal reflux disease without esophagitis; J44.9 Chronic obstructive pulmonary disease, unspecified; F41.9 Anxiety disorder, unspecified; M25.531 Pain in right wrist; R07.81 Pleurodynia; R07.9 Chest pain, unspecified; Z79.899 Other long term (current) drug therapy
CPT/HCPCS: 70450; 71100; 73110; 96372; 99284; J2270; Q0162; A9270-GY

== ENCOUNTER 2021-05-13 16:53 | Emergency (ER) | payer OTHER ==
--- NOTE | 2021-05-13 16:57 | ERPHSYRPT ---
- History of Present Illness Time Seen by Provider: 05/13/21 16:57 Source: patient Exam Limitations: no limitations Physician History: This is a 60-year-old white female patient of Dr. Arias and presents with 4- day history of worsening left hip pain. Patient denies any fall or trauma. Patient states that she has been using Tylenol, ibuprofen and Flexeril which has not helped her pain in the left hip. Patient has a history of insulin-dependent diabetes, episodes of hypoglycemia, coronary artery disease, multiple chronic pain issues, elevated cholesterol, hypertension, COPD and gastroesophageal reflux disease. Patient drove herself to the emergency department. Patient denies shortness of breath. She denies chest pain. She denies abdominal pain. She has no flulike symptoms. Timing/Duration: day(s) (4) Occured at: other (No fall or trauma) Context: unknown Quality: aching Hip Pain Location: hip (L) Severity of Pain-Max: mild (To moderate) Severity of Pain-Current: mild (To moderate) Modifying Factors: Improves With: movement Symptoms prior to fall: other (No fall) Associated Symptoms: denies symptoms Allergies/Adverse Reactions: orphenadrine citrate [From Norflex] Allergy (Intermediate, Verified 05/13/21 17:14) severe vomiting adhesive tape Allergy (Verified 05/13/21 17:14) hydrocodone bitartrate [From [place]] Adverse Reaction (Mild, Verified 05/13/21 17:14) nausea vomiting levofloxacin [From Levaquin] Adverse Reaction (Mild, Verified 05/13/21 17:14) Nausea and Vomiting Home Medications: Insulin Lispro [Humalog] 1 unit SQ UD 11/14/16 [History] Cyclobenzaprine HCl 10 mg [Cyclobenzaprine 10 MG] 10 mg PO QID 02/13/19 [History] ALPRAZolam 1 MG [Xanax 1 mg] 1 mg PO HS 08/25/19 [History] Metoprolol Tartrate 50 mg PO DAILY 08/25/19 [History] Hx Tetanus, Diphtheria Vaccination/Date Given: Yes Hx Influenza Vaccination/Date Given: Yes Hx Pneumococcal Vaccination/Date Given: Yes Travel Risk - International Travel Have you traveled outside of the country in past 3 weeks: No - Coronavirus Screening Are you exhibiting any of the following symptoms?: No Close contact with a COVID-19 positive Pt in past 14-21 Days: No - Vaccine Status Have you recieved a Covid-19 vaccination: Yes [place] [employer]: Moderna - Vaccination Dates Date of 2cond Vaccination (if applicable): 06/10/20 - Review of Systems Constitutional: No Symptoms Eyes: No Symptoms Ears, Nose, & Throat: No Symptoms Respiratory: No Symptoms Cardiac: No Symptoms Abdominal/Gastrointestinal: No Symptoms Genitourinary Symptoms: No Symptoms Musculoskeletal: Joint Pain (Left hip pain), No Fall, No Injury Skin: No Symptoms Neurological: No Symptoms Psychological: No Symptoms Endocrine: No Symptoms Hematologic/Lymphatic: No Symptoms - Past Medical History Pertinent Past Medical History: Yes Neurological History: No Pertinent History ENT History: No Pertinent History Cardiac History: Coronary Artery Disease, High Cholesterol, Hypertension Respiratory History: Asthma, Bronchitis, COPD, Emphysema, Pneumonia Endocrine Medical History: Diabetes Type I, Hypoglycemia Musculoskeletal History: Fractures GI Medical History: GERD History: Renal Disease Psycho-Social History: Anxiety, Depression Female Reproductive Disorders: No Pertinent History Other Medical History: Previous R 3rd to fx many years ago - Past Surgical History Past Surgical History: Yes Neuro Surgical History: No Pertinent History Cardiac: Cardiac Catheterization, Cardiac Stent Respiratory: No Pertinent History Gastrointestinal: Cholecystectomy Genitourinary: No Pertinent History Musculoskeletal: Other Female Surgical History: Tubal Ligation Other Surgical History: BUNONECTOMY. BACK SURGERY X2 - Social History Smoking Status: Current every day smoker How long have you smoked: 30 YEARS Exposure to second hand smoke: Yes Alcohol Use: None Drug Use: none Patient Lives Alone: No Significant Family History: heart disease, diabetes, hypertension - Nursing Vital Signs Nursing Vital Signs: Initial Vital Signs Temperature 97.6 F 05/13/21 17:07 Pulse Rate 108 H 05/13/21 17:07 Respiratory Rate 18 05/13/21 17:07 Blood Pressure 165/111 05/13/21 17:07 O2 Sat by Pulse Oximetry 96 05/13/21 17:07 Pain Scale Pain Intensity 8 - Physical Exam General Appearance: no apparent distress, alert, anxiety Eye Exam: PERRL/EOMI, eyes nml inspection Ears, Nose, Throat Exam: normal ENT inspection, moist mucous membranes Neck Exam: normal inspection, non-tender, supple, full range of motion Respiratory Exam: airway intact, No chest tenderness, No respiratory distress Gastrointestinal Exam: No tenderness Pelvic Exam: not done Rectal Exam: not done Back Exam: normal inspection, normal range of motion, No CVA tenderness, No vertebral tenderness Extremity Exam: normal inspection, normal range of motion, pelvis stable, tenderness (To palpation left hip no deformity.) Neurologic Exam: alert, oriented x 3, 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 05/13/21 18:33 Patient states that she has taken Percocet in the past without any problems. Counseled pt/family regarding: diagnosis, need for follow-up, rad results - Departure Departure Disposition: Home Clinical Impression: Left hip pain Condition: Stable Critical Care Time: No Referrals: LYUDMILA ARIAS MD [Primary Care Provider] - Follow up/PCP as directed Additional Instructions: Continue Tylenol and your cyclobenzaprine medication. Stop the ibuprofen medication and take the prednisone instead. Call your prescribing provider for further evaluation and management of this pain.
[2021-05-13] MEDS ORDERED: PERCOCET TABLET 5/325MG PO STA (18:33)
[2021-05-13] MEDS ORDERED: PERCOCET TABLET 5/325MG ONE (18:37)
[2021-05-13 18:51] VITALS: BP 158/93; PULSE 91; O2SAT 97
--- NOTE | 2021-05-14 08:53 | XRAY ---
Indication: Pain. No known injury. Comparison: None 2 view left hip demonstrates mild osteopenia, minimal degenerative joint space narrowing, moderate lower lumbar degenerative spondylosis, probable tiny gluteal calcified injection granulomas, and moderate scattered vascular calcifications. No other bony, articular, or soft tissue abnormalities.
== END 2021-05-13 18:51 | disposition home or self-care (01) ==
LOC: ED 16:53
DX: M25.552 Pain in left hip (principal); E10.649 Type 1 diabetes mellitus with hypoglycemia without coma; I25.10 Atherosclerotic heart disease of native coronary artery without angina pectoris; I10 Essential (primary) hypertension; Z95.5 Presence of coronary angioplasty implant and graft; Z72.0 Tobacco use; E78.5 Hyperlipidemia, unspecified; J43.9 Emphysema, unspecified; K21.9 Gastro-esophageal reflux disease without esophagitis; Z79.4 Long term (current) use of insulin; Z79.899 Other long term (current) drug therapy
CPT/HCPCS: 73502; 99283; A9270-GY

== ENCOUNTER 2021-06-19 23:25 | Emergency (ER) | payer OTHER ==
--- NOTE | 2021-06-19 23:29 | ERPHSYRPT ---
- History of Present Illness Time Seen by Provider: 06/19/21 23:29 Source: patient Exam Limitations: no limitations Physician History: This is a 60-year-old white female patient of Dr. Arias who has a history of insulin-dependent diabetes, hypertension, coronary artery disease, elevated cholesterol, asthma, bronchitis, COPD, gastroesophageal reflux disease, renal disease and anxiety and presents with feeling weak and nauseated. Patient checked her blood sugar this afternoon and it was elevated. She has an insulin pump in place and gave herself an 11 unit bolus at around 7 PM. Despite that her blood sugar still read 600. She denies shortness of breath. She denies chest pain. She denies abdominal pain. Patient presents with hyperglycemia and the above symptoms. Timing/Duration: today Severity: moderate Modifying Factors: Improves With: nothing Associated Symptoms: nausea, weakness Allergies/Adverse Reactions: orphenadrine citrate [From Norflex] Allergy (Intermediate, Verified 06/19/21 23:41) severe vomiting adhesive tape Allergy (Verified 06/19/21 23:41) hydrocodone bitartrate [From Wysox] Adverse Reaction (Mild, Verified 06/19/21 23:41) nausea vomiting levofloxacin [From Levaquin] Adverse Reaction (Mild, Verified 06/19/21 23:41) Nausea and Vomiting Home Medications: Insulin Lispro [Humalog] 1 unit SQ UD 11/14/16 [History] Cyclobenzaprine HCl 10 mg [Cyclobenzaprine 10 MG] 10 mg PO QID 02/13/19 [History] ALPRAZolam 1 MG [Xanax 1 mg] 1 mg PO HS 08/25/19 [History] Metoprolol Tartrate 50 mg PO DAILY 08/25/19 [History] Hx Tetanus, Diphtheria Vaccination/Date Given: Yes Hx Influenza Vaccination/Date Given: Yes Hx Pneumococcal Vaccination/Date Given: Yes Travel Risk - International Travel Have you traveled outside of the country in past 3 weeks: No - Coronavirus Screening Are you exhibiting any of the following symptoms?: No Close contact with a COVID-19 positive Pt in past 14-21 Days: No - Vaccine Status Have you recieved a Covid-19 vaccination: Yes Special Tester: Moderna - Vaccination Dates Date of 2cond Vaccination (if applicable): 06/10/20 - Review of Systems Constitutional: Weakness Eyes: No Symptoms Ears, Nose, & Throat: No Symptoms Respiratory: No Symptoms Cardiac: No Symptoms Abdominal/Gastrointestinal: Nausea Genitourinary Symptoms: No Symptoms Musculoskeletal: No Symptoms Skin: No Symptoms Neurological: No Symptoms Psychological: No Symptoms Endocrine: No Symptoms Hematologic/Lymphatic: No Symptoms Immunological/Allergic: No Symptoms All Other Systems: Reviewed and Negative - Past Medical History Pertinent Past Medical History: Yes Neurological History: No Pertinent History ENT History: No Pertinent History Cardiac History: Coronary Artery Disease, High Cholesterol, Hypertension Respiratory History: Asthma, Bronchitis, COPD, Emphysema, Pneumonia Endocrine Medical History: Diabetes Type I, Hypoglycemia Musculoskeletal History: Fractures GI Medical History: GERD History: Renal Disease Psycho-Social History: Anxiety, Depression Female Reproductive Disorders: No Pertinent History Other Medical History: Previous R 3rd to fx many years ago - Past Surgical History Past Surgical History: Yes Neuro Surgical History: No Pertinent History Cardiac: Cardiac Catheterization, Cardiac Stent Respiratory: No Pertinent History Gastrointestinal: Cholecystectomy Genitourinary: No Pertinent History Musculoskeletal: Other Female Surgical History: Tubal Ligation Other Surgical History: BUNONECTOMY. BACK SURGERY X2 - Social History Smoking Status: Current every day smoker How long have you smoked: 30 YEARS Exposure to second hand smoke: Yes Alcohol Use: None Drug Use: none Patient Lives Alone: No Significant Family History: heart disease, diabetes, hypertension - Nursing Vital Signs Nursing Vital Signs: Initial Vital Signs Temperature 97.1 F 06/19/21 23:25 Pulse Rate 109 H 06/19/21 23:25 Respiratory Rate 22 06/19/21 23:25 Blood Pressure 144/89 06/19/21 23:25 O2 Sat by Pulse Oximetry 98 06/19/21 23:25 Pain Scale Pain Intensity 0 - Physical Exam General Appearance: no apparent distress, alert, anxiety, thin Eye Exam: PERRL/EOMI, eyes nml inspection Ears, Nose, Throat Exam: normal ENT inspection, moist mucous membranes Neck Exam: normal inspection, non-tender, supple, full range of motion Respiratory Exam: normal breath sounds, lungs clear, airway intact, No chest tenderness, No respiratory distress Cardiovascular Exam: regular rate/rhythm, normal heart sounds, normal peripheral pulses Gastrointestinal/Abdomen Exam: soft, normal bowel sounds, No tenderness Pelvic Exam: not done Rectal Exam: not done Back Exam: normal inspection, normal range of motion, No CVA tenderness, No vert ebral tenderness Extremity Exam: normal inspection, normal range of motion, pelvis stable Neurologic Exam: alert, oriented x 3, cooperative, supervisor marble II-XII nml as tested, normal mood/affect, nml cerebellar function, nml station & gait, sensation nml Skin Exam: normal color, warm, dry Lymphatic Exam: No adenopathy SpO2 Interpretation: normal O2 Delivery: Room Air - Course Nursing assessment & vital signs reviewed: Yes Ordered Tests: Active Orders 24 hr Category Date Time Status IV Insertion STAT Care 06/19/21 23:58 Active Pulse Oximetry (ED) STAT Care 06/19/21 23:58 Active CMP Stat Lab 06/20/21 02:48 Completed Lactic Acid Urgent Lab 06/19/21 23:58 Completed POCT GLUCOSE Stat Lab 06/19/21 23:48 Completed POCT GLUCOSE Stat Lab 06/20/21 02:33 Received POCT GLUCOSE Stat Lab 06/20/21 02:34 Completed UA W/RFX UR CULTURE Stat Lab 06/20/21 00:20 Completed Medication Summary Discontinued Medications Generic Name Dose Route Start Last Admin Trade Name Petrona PRN Reason Stop Dose Admin Sodium Chloride 1,000 mls @ 999 mls/hr 06/19/21 23:58 06/20/21 00:23 Sodium Chloride 0.9% 1000 Ml IV 06/20/21 00:58 999 mls/hr .Q1H1M STA Administration Sodium Chloride Confirm 06/20/21 00:20 Sodium Chloride 0.9% 1000 Ml Administered 06/20/21 00:21 Dose 1,000 mls @ ud .ROUTE .STK-MED ONE Sodium Chloride 1,000 mls @ 999 mls/hr 06/20/21 00:32 06/20/21 01:28 Sodium Chloride 0.9% 1000 Ml IV 06/20/21 01:32 999 mls/hr .Q1H1M STA Administration Sodium Chloride Confirm 06/20/21 00:39 Sodium Chloride 0.9% 1000 Ml Administered 06/20/21 00:40 Dose 1,000 mls @ ud .ROUTE .STK-MED ONE Insulin Human Regular 10 unit 06/19/21 23:59 06/20/21 00:23 Insulin Regular, Human 1 Unit IV 06/20/21 00:00 10 unit STAT ONE Administration Insulin Human Regular Confirm 06/20/21 00:20 Insulin Regular, Human 1 Unit Administered 06/20/21 00:21 Dose 10 unit .ROUTE .STK-MED ONE Magnesium Oxide 400 mg 06/20/21 01:17 06/20/21 01:36 Magnesium Oxide 400 Mg Tablet PO 06/20/21 01:18 400 mg STAT ONE Administration Magnesium Oxide Confirm 06/20/21 01:35 Magnesium Oxide 400 Mg Tablet Administered 06/20/21 01:36 Dose 400 mg .ROUTE .STK-MED ONE Ondansetron HCl 4 mg 06/20/21 00:32 06/20/21 00:40 Ondansetron Hcl 4 Mg/2 Ml Vial IV 06/20/21 00:33 4 mg STAT ONE Administration Ondansetron HCl Confirm 06/20/21 00:39 Ondansetron Hcl 4 Mg/2 Ml Vial Administered 06/20/21 00:40 Dose 4 mg .ROUTE .STK-MED ONE Lab/Rad Data: Laboratory Result Diagrams 06/19/21 00:17 06/20/21 02:48 Laboratory Results 06/20/21 06/20/21 06/20/21 Range/Units 02:48 02:34 00:20 WBC (4.0-10.5) K/mm3 RBC (4.1-5.4) M/mm3 Hgb (12.0-16.0) gm/dl Hct (35-47) % MCV (78-100) fl MCH (26-32) pg MCHC (32-36) g/dl RDW (11.5-14.0) % Plt Count (150-450) K/mm3 MPV (7.5-11.0) fl Gran % (36.0-66.0) % Eos # (Auto) (0-0.5) Absolute Lymphs (auto) (1.0-4.6) Absolute Monos (auto) (0.0-1.3) Lymphocytes % (24.0-44.0) % Monocytes % (0.0-12.0) % Eosinophils % (0.00-5.0) % Basophils % (0.0-0.4) % Absolute Granulocytes (1.4-6.9) Basophils # (0-0.4) Sodium 135 L (137-145) mmol/L Potassium 3.8 (3.5-5.1) mmol/L Chloride 101 (98-107) mmol/L Carbon Dioxide 25 (22-30) mmol/L Anion Gap 12.5 (5-15) MEQ/L BUN 26 H (7-17) mg/dL Creatinine 1.20 H (0.52-1.04) mg/dL Estimated GFR 48.9 ML/MIN Glucose 268 H (74-106) mg/dL POC Glucometer 275 H (50 to 500) mg/dL Lactic Acid (0.4-2.0) Calcium 8.9 (8.4-10.2) mg/dL Magnesium (1.6-2.3) mg/dL Total Bilirubin 0.50 (0.2-1.3) mg/dL AST 34 (14-36) U/L ALT 37 H (0-35) U/L Alkaline Phosphatase 185 H (38-126) U/L Serum Total Protein 6.5 (6.3-8.2) g/dL Albumin 3.7 (3.5-5.0) g/dL Urine Color STRAW (YELLOW) Urine Appearance CLEAR (CLEAR) Urine pH 5.0 (5-6) Ur Specific [place] 1.010 (1.005-1.025) Urine Protein NEGATIVE (Negative) Urine Ketones SMALL (NEGATIVE) Urine Blood NEGATIVE (0-5) Tato/ul Urine Nitrite NEGATIVE (NEGATIVE) Urine Bilirubin NEGATIVE (NEGATIVE) Urine Urobilinogen NEGATIVE (0-1) mg/dL Ur Leukocyte Esterase NEGATIVE (NEGATIVE) Urine WBC (Auto) 3-5 (0-5) /HPF Urine RBC (Auto) NONE (0-2) /HPF U Epithel Cells (Auto) RARE (FEW) /HPF Urine Bacteria (Auto) NONE SEEN (NEGATIVE) /HPF Urine Culture Reflexed NO (NO) Urine Glucose >=500 (NEGATIVE) mg/dL 06/20/21 06/19/21 06/19/21 Range/Units 00:10 23:48 00:17 WBC (4.0-10.5) K/mm3 RBC (4.1-5.4) M/mm3 Hgb (12.0-16.0) gm/dl Hct (35-47) % MCV (78-100) fl MCH (26-32) pg MCHC (32-36) g/dl RDW (11.5-14.0) % Plt Count (150-450) K/mm3 MPV (7.5-11.0) fl Gran % (36.0-66.0) % Eos # (Auto) (0-0.5) Absolute Lymphs (auto) (1.0-4.6) Absolute Monos (auto) (0.0-1.3) Lymphocytes % (24.0-44.0) % Monocytes % (0.0-12.0) % Eosinophils % (0.00-5.0) % Basophils % (0.0-0.4) % Absolute Granulocytes (1.4-6.9) Basophils # (0-0.4) Sodium 129 L (137-145) mmol/L Potassium 4.5 (3.5-5.1) mmol/L Chloride 91 L (98-107) mmol/L Carbon Dioxide 22 (22-30) mmol/L Anion Gap 20.7 H (5-15) MEQ/L BUN 31 H (7-17) mg/dL Creatinine 1.46 H (0.52-1.04) mg/dL Estimated GFR 39.0 ML/MIN Glucose 533 H* (74-106) mg/dL POC Glucometer 577 H* (50 to 500) mg/dL Lactic Acid 1.9 (0.4-2.0) Calcium 9.6 (8.4-10.2) mg/dL Magnesium 1.5 L (1.6-2.3) mg/dL Total Bilirubin 0.80 (0.2-1.3) mg/dL AST 38 H (14-36) U/L ALT 38 H (0-35) U/L Alkaline Phosphatase 200 H (38-126) U/L Serum Total Protein 6.7 (6.3-8.2) g/dL Albumin 4.0 (3.5-5.0) g/dL Urine Color (YELLOW) Urine Appearance (CLEAR) Urine pH (5-6) Ur Specific [place] (1.005-1.025) Urine Protein (Negative) Urine Ketones (NEGATIVE) Urine Blood (0-5) Tato/ul Urine Nitrite (NEGATIVE) Urine Bilirubin (NEGATIVE) Urine Urobilinogen (0-1) mg/dL Ur Leukocyte Esterase (NEGATIVE) Urine WBC (Auto) (0-5) /HPF Urine RBC (Auto) (0-2) /HPF U Epithel Cells (Auto) (FEW) /HPF Urine Bacteria (Auto) (NEGATIVE) /HPF Urine Culture Reflexed (NO) Urine Glucose (NEGATIVE) mg/dL 06/19/21 Range/Units 00:17 WBC 11.3 H (4.0-10.5) K/mm3 RBC 4.58 (4.1-5.4) M/mm3 Hgb 14.3 (12.0-16.0) gm/dl Hct 43.0 (35-47) % MCV 93.9 (78-100) fl MCH 31.2 (26-32) pg MCHC 33.3 (32-36) g/dl RDW 13.8 (11.5-14.0) % Plt Count 365 (150-450) K/mm3 MPV 8.9 (7.5-11.0) fl Gran % 84.0 H (36.0-66.0) % Eos # (Auto) 0 (0-0.5) Absolute Lymphs (auto) 1.18 (1.0-4.6) Absolute Monos (auto) 0.61 (0.0-1.3) Lymphocytes % 10.4 L (24.0-44.0) % Monocytes % 5.4 (0.0-12.0) % Eosinophils % 0.0 (0.00-5.0) % Basophils % 0.2 (0.0-0.4) % Absolute Granulocytes 9.52 H (1.4-6.9) Basophils # 0.02 (0-0.4) Sodium (137-145) mmol/L Potassium (3.5-5.1) mmol/L Chloride (98-107) mmol/L Carbon Dioxide (22-30) mmol/L Anion Gap (5-15) MEQ/L BUN (7-17) mg/dL Creatinine (0.52-1.04) mg/dL Estimated GFR ML/MIN Glucose (74-106) mg/dL POC Glucometer (50 to 500) mg/dL Lactic Acid (0.4-2.0) Calcium (8.4-10.2) mg/dL Magnesium (1.6-2.3) mg/dL Total Bilirubin (0.2-1.3) mg/dL AST (14-36) U/L ALT (0-35) U/L Alkaline Phosphatase (38-126) U/L Serum Total Protein (6.3-8.2) g/dL Albumin (3.5-5.0) g/dL Urine Color (YELLOW) Urine Appearance (CLEAR) Urine pH (5-6) Ur Specific [place] (1.005-1.025) Urine Protein (Negative) Urine Ketones (NEGATIVE) Urine Blood (0-5) Tato/ul Urine Nitrite (NEGATIVE) Urine Bilirubin (NEGATIVE) Urine Urobilinogen (0-1) mg/dL Ur Leukocyte Esterase (NEGATIVE) Urine WBC (Auto) (0-5) /HPF Urine RBC (Auto) (0-2) /HPF U Epithel Cells (Auto) (FEW) /HPF Urine Bacteria (Auto) (NEGATIVE) /HPF Urine Culture Reflexed (NO) Urine Glucose (NEGATIVE) mg/dL - Progress Progress: improved Progress Note: 06/20/21 03:12 Patient states he is feeling much better. She desires to go home. Counseled pt/family regarding: lab results, diagnosis, need for follow-up - Departure Departure Disposition: Home Clinical Impression: Hyperglycemia Condition: Stable Critical Care Time: No Referrals: LYUDMILA ARIAS MD [Primary Care Provider] - Follow up/PCP as directed Additional Instructions: Monitor your blood sugar closely. Adjust your insulin pump and your need for any boluses as instructed.
[2021-06-19] MEDS ORDERED: Sodium Chloride 0.9% 1000 ML 1,000 ML IV STA (23:58)
[2021-06-19] MEDS ORDERED: HUMULIN R IV ONE (23:59)
[2021-06-20] MEDS ORDERED: Sodium Chloride 0.9% 1000 ML 1,000 ML ONE ×2 (00:20→00:39)
[2021-06-20] MEDS ORDERED: HUMULIN R ONE (00:20)
[2021-06-20 00:21] LABS: Absolute Neutrophil Ct (ANC) 9.52 (1.4-6.9); Basophil (Absolute #) 0.02 (0-0.4); Eosinophil (Absolute #) 0 (0-0.5); Hemoglobin 14.3 gm/dl (12.0-16.0); Lymphocyte (Absolute #) 1.18 (1.0-4.6); Lymphocytes % 10.4 % (24.0-44.0); Mean Cell Volume 93.9 fl (78-100); Mean Corpuscular Hemoglobin 31.2 pg (26-32); Mean Corpuscular Hgb Concent. 33.3 g/dl (32-36); Mean Platelet Volume 8.9 fl (7.5-11.0); Monocyte (Absolute #) 0.61 (0.0-1.3); Monocytes % 5.4 % (0.0-12.0); Platelet Count 365 K/mm3 (150-450); Red Blood Count 4.58 M/mm3 (4.1-5.4); Red Cell Distribution Width 13.8 % (11.5-14.0); White Blood Count 11.3 K/mm3 (4.0-10.5)
[2021-06-20] MEDS ORDERED: Zofran 4 MG/2 ML VIAL IV ONE (00:32)
[2021-06-20] MEDS ORDERED: Sodium Chloride 0.9% 1000 ML 1,000 ML IV STA (00:32)
[2021-06-20 00:34] LABS: Appearance CLEAR (CLEAR); Bilirubin NEGATIVE (NEGATIVE); Blood NEGATIVE Ery/ul (0-5); Epithelial Cells RARE /HPF (FEW); Glucose >=500 mg/dL (NEGATIVE); Ketones SMALL (NEGATIVE); Leukocyte Esterase NEGATIVE (NEGATIVE); Nitrite NEGATIVE (NEGATIVE); Protein,Urine Dip NEGATIVE (Negative); Urobilinogen NEGATIVE mg/dL (0-1)
[2021-06-20 00:37] LABS: Bacteria NONE SEEN /HPF (NEGATIVE)
[2021-06-20 00:38] LABS: ANION GAP 20.7 MEQ/L (5-15); BILIRUBIN,TOTAL 0.8 mg/dL (0.2-1.3); Calcium 9.6 mg/dL (8.4-10.2); Creatinine 1 1.46 mg/dL (0.52-1.04); MAGNESIUM 1.5 mg/dL (1.6-2.3); Potassium 4.5 mmol/L (3.5-5.1); Total Protein 6.7 g/dL (6.3-8.2)
[2021-06-20] MEDS ORDERED: Zofran 4 MG/2 ML VIAL ONE (00:39)
[2021-06-20] MEDS ORDERED: MAG-OX 400 PO ONE (01:17)
[2021-06-20] MEDS ORDERED: MAG-OX 400 ONE (01:35)
[2021-06-20 03:02] LABS: ALBUMIN 3.7 g/dL (3.5-5.0); ANION GAP 12.5 MEQ/L (5-15); BILIRUBIN,TOTAL 0.5 mg/dL (0.2-1.3); Calcium 8.9 mg/dL (8.4-10.2); Creatinine 1 1.2 mg/dL (0.52-1.04); EST GLOMERULAR FILTRATION RATE 48.9 ML/MIN; Potassium 3.8 mmol/L (3.5-5.1); Total Protein 6.5 g/dL (6.3-8.2)
[2021-06-20 03:36] VITALS: BP 158/90; PULSE 100; O2SAT 97
== END 2021-06-20 03:30 | disposition home or self-care (01) ==
LOC: ED 23:25
DX: E10.65 Type 1 diabetes mellitus with hyperglycemia (principal); Z96.41 Presence of insulin pump (external) (internal); Z79.4 Long term (current) use of insulin; I25.10 Atherosclerotic heart disease of native coronary artery without angina pectoris; E78.5 Hyperlipidemia, unspecified; I10 Essential (primary) hypertension; J43.9 Emphysema, unspecified; Z72.0 Tobacco use; Z79.899 Other long term (current) drug therapy
CPT/HCPCS: 36000; 36415; 80053; 81001; 82947; 83605; 83735; 85025; 94760; 96374; 96375; 99284; J1815; J2405; A9270-GY

== ENCOUNTER 2021-06-24 07:27 | Day surgery (SDC) | payer OTHER ==
[2013-01-30 13:36] VITALS: BP 132/78
[2021-06-24] MEDS ORDERED: Depo-Medrol 40 MG/ML IM ONE (07:28)
[2021-06-24] MEDS ORDERED: Xylocaine 1% Vial 30 ML PF IJ ONE (07:28)
[2021-06-24] MEDS ORDERED: Decadron 4 MG INJ IV ONE (07:28)
[2021-06-24] MEDS ORDERED: Sodium Chloride 0.9% 10 ML FLUSH Syringe IJ ONE (07:28)
--- NOTE | 2021-06-25 09:57 | XRAY ---
33 seconds fluoroscopy time in surgery for injection of the left piriformis muscle.
--- NOTE | 2021-06-25 10:07 | XRAY ---
56 seconds fluoroscopy time in surgery for left L4-S1 transforaminal ADELSO.
--- NOTE | 2021-06-28 08:53 | XRAY ---
Indication: Left piriformis muscle injection. Intraoperative fluoroscopy provided for 33 seconds. Single digital spot image submitted for interpretation demonstrates posterior needle tip projecting over the expected left piriformis muscle. Small amount of contrast injected for needle tip placement. Correlate with intraoperative findings/report.
--- NOTE | 2021-06-28 08:53 | XRAY ---
Indication: Left L4-S1 transforaminal ADELSO. Intraoperative fluoroscopy provided for 56 seconds. 8 digital spot image submitted for interpretation demonstrates posterior needle tips projecting over the expected left L4 and L5 nerve roots. Small amount of contrast injected for needle tip placement. Correlate with intraoperative findings/report.
== END 2021-06-24 09:31 | disposition home or self-care (01) ==
LOC: SDC-PAIN 07:27
PROVIDERS: ATTEND Psychiatry & Neurology Pain Medicine
DX: M54.16 Radiculopathy, lumbar region (principal); M79.18 Myalgia, other site; E11.9 Type 2 diabetes mellitus without complications; Z79.899 Other long term (current) drug therapy
CPT/HCPCS: 20552; 64483; 64484; 72020; 72100; 77002; 77003; 82947; J1030; J1100; J2001; Q9966

== ENCOUNTER 2021-07-25 08:29 | Inpatient (IN) | payer OTHER ==
[2021-07-25] MEDS ORDERED: Sodium Chloride 0.9% 1000 ML 1,000 ML IV STA ×2 (08:49→10:28)
[2021-07-25] MEDS ORDERED: ZOFRAN ODT 4 MG ONE (08:55)
[2021-07-25] MEDS ORDERED: Sodium Chloride 0.9% 1000 ML 1,000 ML ONE ×2 (09:23→10:26)
[2021-07-25] MEDS ORDERED: Zofran 4 MG/2 ML VIAL ONE (09:23)
[2021-07-25] MEDS ORDERED: ZOFRAN ODT 4 MG PO ONE (09:28)
[2021-07-25 09:36] LABS: Lactic Acid 5.7 (0.4-2.0); VBG HCO3- 8.4 meq/L (22-28); VBG O2 SATURATION 88.2 (95-100)
[2021-07-25 09:37] LABS: VBG pH 7.23 (7.32-7.42)
[2021-07-25] MEDS ORDERED: HUMULIN R 100 UNIT in Sodium Chloride 0.9% 100 ML BAG 100 ML IV PRN (09:37)
[2021-07-25] MEDS ORDERED: HUMULIN R IV ONE (09:37)
[2021-07-25 09:38] LABS: VBG POTASSIUM 6.2 (3.5-5.1)
[2021-07-25] MEDS ORDERED: HUMULIN R ONE ×2 (09:39→09:42)
[2021-07-25 09:41] LABS: Hematocrit 41.2 % (35-47); Hemoglobin 12.7 gm/dl (12.0-16.0); Mean Corpuscular Hemoglobin 31.8 pg (26-32); Mean Corpuscular Hgb Concent. 30.8 g/dl (32-36); Mean Platelet Volume 9.4 fl (7.5-11.0); Platelet Count 375 K/mm3 (150-450); Red Cell Distribution Width 14.9 % (11.5-14.0); White Blood Count 17.6 K/mm3 (4.0-10.5)
--- NOTE | 2021-07-25 09:51 | ERPHSYRPT ---
- History of Present Illness Time Seen by Provider: 07/25/21 08:48 Source: patient Exam Limitations: clinical condition Patient Subjective Stated Complaint: Patient is complaining of high blood sugar Triage Nursing Assessment: Patient to ED with hyperglycemia. Patient is lethargic and not alert to person place or time. Patients speech is slurred. Glucose at this time is reading "High" Physician History: 60-year-old male with history of insulin-dependent diabetes mellitus, hypertension, anxiety presented to the ER with chief complaint of elevated blood sugar since yesterday. Patient is lethargic, sleepy but arousable and answering most of the questions. She falls back asleep in between. He is complaining of vomiting since morning with no abdominal pain. No chest pain or difficulty breathing. Patient reports she took 4 units of insulin prior to arrival. Does have history of DKA. Patient is not a very good historian and history is limited. No slurred speech noticed by me. Timing/Duration: yesterday, gradual onset, worse Severity: moderate Associated Symptoms: nausea, vomiting, malaise, weakness Allergies/Adverse Reactions: orphenadrine citrate [From Norflex] Allergy (Intermediate, Verified 07/25/21 08:44) severe vomiting adhesive tape Allergy (Verified 07/25/21 08:44) hydrocodone bitartrate [From Lanse] Adverse Reaction (Mild, Verified 07/25/21 08:44) nausea vomiting levofloxacin [From Levaquin] Adverse Reaction (Mild, Verified 07/25/21 08:44) Nausea and Vomiting Home Medications: Insulin Lispro [Humalog] 1 unit SQ UD 11/14/16 [History] Cyclobenzaprine HCl 10 mg [Cyclobenzaprine 10 MG] 10 mg PO QID 02/13/19 [History] ALPRAZolam 1 MG [Xanax 1 mg] 1 mg PO HS 08/25/19 [History] Metoprolol Tartrate 50 mg PO HS 08/25/19 [History] Promethazine HCl 25 mg [Phenergan 25 mg] 25 mg PO QID PRN 07/17/21 [History] Cefuroxime Axetil [Cefuroxime] 500 mg PO Q12H 07/25/21 [History] Hydroxyzine HCl 25 mg [Atarax 25 mg] 25 mg PO BID 07/25/21 [History] cilostazoL [Cilostazol] 50 mg PO BID 07/25/21 [History] Hx Tetanus, Diphtheria Vaccination/Date Given: Yes Hx Influenza Vaccination/Date Given: Yes Hx Pneumococcal Vaccination/Date Given: Yes Immunizations Up to Date: Yes Travel Risk - International Travel Have you traveled outside of the country in past 3 weeks: No - Coronavirus Screening Are you exhibiting any of the following symptoms?: No Close contact with a COVID-19 positive Pt in past 14-21 Days: No - Vaccine Status Have you recieved a Covid-19 vaccination: Yes 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 - Vaccination Dates Date of 2cond Vaccination (if applicable): unknown - Review of Systems Constitutional: Fatigue, Weakness Eyes: No Symptoms Ears, Nose, & Throat: No Symptoms Respiratory: No Symptoms Cardiac: No Symptoms Abdominal/Gastrointestinal: Nausea, Vomiting Genitourinary Symptoms: No Symptoms Musculoskeletal: No Symptoms Skin: No Symptoms Neurological: No Symptoms Endocrine: No Symptoms Hematologic/Lymphatic: No Symptoms Immunological/Allergic: No Symptoms - Past Medical History Pertinent Past Medical History: Yes Neurological History: No Pertinent History ENT History: No Pertinent History Cardiac History: Coronary Artery Disease, High Cholesterol, Hypertension Respiratory History: Asthma, Bronchitis, COPD, Emphysema, Pneumonia Endocrine Medical History: Diabetes Type I, Hypoglycemia Musculoskeletal History: Fractures GI Medical History: GERD History: Renal Disease Psycho-Social History: Anxiety, Depression Female Reproductive Disorders: No Pertinent History Other Medical History: Previous R 3rd left leg fx many years ago,rt wrist fx with cast - Past Surgical History Past Surgical History: Yes Neuro Surgical History: No Pertinent History Cardiac: Cardiac Catheterization, Cardiac Stent Respiratory: No Pertinent History Gastrointestinal: Cholecystectomy Genitourinary: No Pertinent History Musculoskeletal: Other Female Surgical History: Tubal Ligation Other Surgical History: BUNONECTOMY. BACK SURGERY X2, - Social History Smoking Status: Current every day smoker How long have you smoked: 30 YEARS Exposure to second hand smoke: Yes Alcohol Use: None Drug Use: none Patient Lives Alone: No Significant Family History: heart disease, diabetes, hypertension - Nursing Vital Signs Nursing Vital Signs: Initial Vital Signs Temperature 98 F 07/25/21 08:35 Pulse Rate 119 H 07/25/21 08:35 Respiratory Rate 26 H 07/25/21 08:35 Blood Pressure 128/49 07/25/21 08:35 Pain Scale Pain Intensity 0 - Physical Exam General Appearance: no apparent distress, lethargy Eye Exam: PERRL/EOMI, eyes nml inspection Ears, Nose, Throat Exam: TMs normal, pharynx normal, dry mucous membranes Neck Exam: normal inspection, non-tender, supple, full range of motion Respiratory Exam: normal breath sounds, lungs clear Cardiovascular Exam: normal heart sounds, tachycardia Gastrointestinal/Abdomen Exam: soft, normal bowel sounds, No tenderness Back Exam: normal inspection, normal range of motion Extremity Exam: normal inspection, normal range of motion, pelvis stable Neurologic Exam: alert, cooperative, 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, confusion Skin Exam: normal color SpO2 Interpretation: normal SpO2: 98 O2 Delivery: Room Air Procedures - Central Line Time Of Procedure: 09:15 Timeout: Performed Central Line Lumen: triple Lumen Size: 7 Slovenian Central Line Procedure: chlorahexadine prep, sterile drapes applied, sterile dressing applied, Aseptic Technique, Seldinger Technique Central Line Postion: internal jugular (R) Anesthesia: 1% Lidocaine cc's of anesthesia: 3 Ultrasound Guided Placement: Yes Complications: none Central Line Post Position: sutured, good blood return, position confirmed w/ C XR - Course EKG Interpreted by Me: RATE ([id number]), Sinus Tach, NORMAL AXIS, NORMAL INTERVALS, Non-specific ST Changes Ordered Tests: Active Orders 24 hr Category Date Time Status Bedrest ROUTINE Activity 07/25/21 12:29 Active Up With Assistance ROUTINE Activity 07/25/21 12:29 Active Admit as Inpatient ROUTINE Care 07/25/21 12:29 Active Carpenter STAT Care 07/25/21 08:50 Completed Code Status Order ROUTINE Care 07/25/21 12:29 Active EKG-ER Only STAT Care 07/25/21 08:49 Completed Fall Protocol Q1H Care 07/25/21 12:29 Active IV Care Q6H Care 07/25/21 12:29 Active IV Insertion STAT Care 07/25/21 08:49 Completed IV Insertion-2nd Peripheral STAT Care 07/25/21 08:49 Completed POCT Glucose Check Q1H Care 07/25/21 08:49 Active Pulse Oximetry (ED) STAT Care 07/25/21 08:49 Completed Brandi Reza ROUTINE Care 07/25/21 12:29 Active Weight,Daily 0600 Care 07/25/21 12:29 Active CHEST 1 VIEW (PORTABLE) Stat Exams 07/25/21 08:50 Completed BLOOD CULTURE Stat Lab 07/25/21 09:35 Received CBC W DIFF Stat Lab 07/25/21 09:25 Completed CMP Stat Lab 07/25/21 09:25 Completed LIPASE Stat Lab 07/25/21 09:25 Completed Lactic Acid Stat Lab 07/25/21 11:38 Completed Lactic Acid Urgent Lab 07/25/21 09:25 Completed MAGNESIUM Stat Lab 07/25/21 09:25 Completed Manual Differential NC Stat Lab 07/25/21 09:25 Completed PREALBUMIN Routine Lab 07/25/21 14:41 Completed TROPONIN Q3H Lab 07/25/21 09:25 Completed TROPONIN Q3H Lab 07/25/21 12:00 Completed TROPONIN Q3H Lab 07/25/21 14:41 Completed TROPONIN Q3H Lab 07/25/21 17:02 Completed TROPONIN Q3H Lab 07/25/21 21:00 Ordered VENOUS BLOOD GAS Urgent Lab 07/25/21 09:25 Completed Transfer Order Routine Transfer 07/25/21 Completed Medication Summary Generic Name Dose Route Start Last Admin Trade Name Freq PRN Reason Stop Dose Admin Alprazolam 1 mg 07/25/21 22:00 Alprazolam 1 Mg Tablet PO 08/24/21 21:59 HS NISSA Cilostazol 50 mg 07/25/21 22:00 Cilostazol 100 Mg Tablet PO 08/24/21 21:59 BID NISSA Hydroxyzine HCl 25 mg 07/25/21 22:00 Hydroxyzine Hcl 25 Mg Tablet PO 08/24/21 21:59 BID [facility] Insulin Human Regular 100 unit 100 mls @ 5.22 mls/hr 07/25/21 09:37 07/25/21 20:08 / Sodium Chloride IV 08/24/21 09:36 0.04 unit/kg/hr .[id number] PRN 2 mls/hr DKA/HYPERGLYCEMIA Titration Protocol 0.1 UNIT/KG/HR Promethazine HCl 25 mg/ Sodium 101 mls @ 200 mls/hr 07/25/21 13:07 07/25/21 18:01 Chloride IV 08/24/21 13:06 200 mls/hr Q4H PRN PRN Administration UNCONTROLLED NAUSEA Potassium Chloride/Dextrose/Sod Cl 1,000 mls @ 150 mls/hr 07/25/21 13:30 07/25/21 16:36 D5w/0.45ns W/ 20meq Kcl 1000 Ml IV 08/24/21 13:29 150 mls/hr .Q6H40M NISSA Administration Sodium Chloride 1,000 mls @ 200 mls/hr 07/25/21 13:15 07/25/21 13:05 Sodium Chloride 0.9% 1000 Ml IV 08/24/21 13:14 200 mls/hr .Q5H NISSA Administration Metoprolol Tartrate 50 mg 07/25/21 22:00 Metoprolol Tartrate 50 Mg Tablet PO 08/24/21 21:59 HS NISSA Ondansetron HCl 4 mg 07/25/21 12:29 07/25/21 20:00 Ondansetron Hcl 4 Mg/2 Ml Vial IV 08/24/21 12:28 4 mg Q6H PRN PRN Administration NAUSEA/VOMITING Discontinued Medications Generic Name Dose Route Start Last Admin Trade Name Freq PRN Reason Stop Dose Admin Albuterol/Ipratropium 3 ml 07/25/21 12:29 Ipratropium/Albuterol Sulfate 3 Ml Ampul.Neb IH 08/24/21 12:28 Q4HPRN PRN SHORTNESS OF BREATH/WHEEZING Sodium Chloride 1,000 mls @ 999 mls/hr 07/25/21 08:49 07/25/21 10:28 Sodium Chloride 0.9% 1000 Ml IV 07/25/21 09:49 Infused .Q1H1M STA Infusion Sodium Chloride Confirm 07/25/21 09:23 Sodium Chloride 0.9% 1000 Ml Administered 07/25/21 09:24 Dose 1,000 mls @ ud .ROUTE .STK-MED ONE Sodium Chloride 1,000 mls @ 999 mls/hr 07/25/21 10:28 07/25/21 10:29 Sodium Chloride 0.9% 1000 Ml IV 07/25/21 11:28 999 mls/hr .Q1H1M STA Administration Sodium Chloride Confirm 07/25/21 10:26 Sodium Chloride 0.9% 1000 Ml Administered 07/25/21 10:27 Dose 1,000 mls @ ud .ROUTE .STK-MED ONE Insulin Human Regular 5 unit 07/25/21 09:37 07/25/21 09:45 Insulin Regular, Human 1 Unit IV 07/25/21 09:38 5 unit STAT ONE Administration Insulin Human Regular Confirm 07/25/21 09:39 Insulin Regular, Human 1 Unit Administered 07/25/21 09:40 Dose 1 unit .ROUTE .STK-MED ONE Insulin Human Regular Confirm 07/25/21 09:42 Insulin Regular, Human 1 Unit Administered 07/25/21 09:43 Dose 4 unit .ROUTE .STK-MED ONE Ondansetron HCl Confirm 07/25/21 08:55 Zofran 4 Mg/Udtablet Orally Disintegrating Administered 07/25/21 08:56 Dose 4 mg .ROUTE .STK-MED ONE Ondansetron HCl Confirm 07/25/21 09:23 Ondansetron Hcl 4 Mg/2 Ml Vial Administered 07/25/21 09:24 Dose 4 mg .ROUTE .STK-MED ONE Ondansetron HCl 4 mg 07/25/21 09:28 07/25/21 09:29 Zofran 4 Mg/Udtablet Orally Disintegrating PO 07/25/21 09:29 4 mg STAT ONE Administration Lab/Rad Data: Laboratory Result Diagrams 07/25/21 09:25 07/25/21 09:25 Laboratory Results 07/25/21 07/25/21 07/25/21 Range/Units 12:00 11:38 10:40 WBC (4.0-10.5) K/mm3 RBC (4.1-5.4) M/mm3 Hgb (12.0-16.0) gm/dl Hct (35-47) % MCV (78-100) fl MCH (26-32) pg MCHC (32-36) g/dl RDW (11.5-14.0) % Plt Count (150-450) K/mm3 MPV (7.5-11.0) fl Segmented Neutrophils (36.0-66.0) % Lymphocytes (Manual) (24-44) % Monocytes (Manual) (0.0-12.0) % Platelet Estimate (NORMAL) RBC Morphology pO2/FiO2 Ratio % VBG pH (7.32-7.42) VBG pCO2 at Pat Temp (42-55) mm/Hg VBG pO2 at Pat Temp (25-40) mm/Hg VBG HCO3 (22-28) meq/L VBG O2 Sat (Moe) (95-100) VBG Base Excess (-2.0-2.0) VBG Hemoglobin VBG Carboxyhemoglobin (0.0-6.9) % T HGB POC Potassium (3.5-5.1) Sodium (137-145) mmol/L Potassium (3.5-5.1) mmol/L Chloride (98-107) mmol/L Carbon Dioxide (22-30) mmol/L Anion Gap (5-15) MEQ/L BUN (7-17) mg/dL Creatinine (0.52-1.04) mg/dL Estimated GFR ML/MIN Glucose (74-106) mg/dL Lactic Acid 1.6 (0.4-2.0) Calcium (8.4-10.2) mg/dL Magnesium (1.6-2.3) mg/dL Total Bilirubin (0.2-1.3) mg/dL AST (14-36) U/L ALT (0-35) U/L Alkaline Phosphatase (38-126) U/L Troponin I < 0.012 (0.000-0.034) ng/mL Serum Total Protein (6.3-8.2) g/dL Albumin (3.5-5.0) g/dL Lipase (23-300) U/L Influenza Type A Ag NEGATIVE (NEGATIVE) Influenza Type B Ag NEGATIVE (NEGATIVE) RSV (PCR) NEGATIVE (Negative) SARS-CoV-2 (PCR) NEGATIVE (NEGATIVE) 07/25/21 07/25/21 07/25/21 Range/Units 09:25 09:25 09:25 WBC (4.0-10.5) K/mm3 RBC (4.1-5.4) M/mm3 Hgb (12.0-16.0) gm/dl Hct (35-47) % MCV (78-100) fl MCH (26-32) pg MCHC (32-36) g/dl RDW (11.5-14.0) % Plt Count (150-450) K/mm3 MPV (7.5-11.0) fl Segmented Neutrophils (36.0-66.0) % Lymphocytes (Manual) (24-44) % Monocytes (Manual) (0.0-12.0) % Platelet Estimate (NORMAL) RBC Morphology pO2/FiO2 Ratio 21.0 % VBG pH 7.23 L* (7.32-7.42) VBG pCO2 at Pat Temp 20 L* (42-55) mm/Hg VBG pO2 at Pat Temp 57 H (25-40) mm/Hg VBG HCO3 8.4 L* (22-28) meq/L VBG O2 Sat (Moe) 88.2 L (95-100) VBG Base Excess -17.0 L (-2.0-2.0) VBG Hemoglobin 13.0 VBG Carboxyhemoglobin 3.0 (0.0-6.9) % T HGB POC Potassium 6.2 H* (3.5-5.1) Sodium 133 L (137-145) mmol/L Potassium 6.1 H* (3.5-5.1) mmol/L Chloride 93 L (98-107) mmol/L Carbon Dioxide 7 L* (22-30) mmol/L Anion Gap 38.3 H (5-15) MEQ/L BUN 36 H (7-17) mg/dL Creatinine 1.43 H (0.52-1.04) mg/dL Estimated GFR 39.9 ML/MIN Glucose 891 H* (74-106) mg/dL Lactic Acid 5.7 H (0.4-2.0) Calcium 9.8 (8.4-10.2) mg/dL Magnesium 2.0 (1.6-2.3) mg/dL Total Bilirubin 0.70 (0.2-1.3) mg/dL AST 28 (14-36) U/L ALT 19 (0-35) U/L Alkaline Phosphatase 103 (38-126) U/L Troponin I < 0.012 (0.000-0.034) ng/mL Serum Total Protein 6.5 (6.3-8.2) g/dL Albumin 4.0 (3.5-5.0) g/dL Lipase 58 (23-300) U/L Influenza Type A Ag (NEGATIVE) Influenza Type B Ag (NEGATIVE) RSV (PCR) (Negative) SARS-CoV-2 (PCR) (NEGATIVE) 07/25/21 Range/Units 09:25 WBC 17.6 H (4.0-10.5) K/mm3 RBC 4.00 L (4.1-5.4) M/mm3 Hgb 12.7 (12.0-16.0) gm/dl Hct 41.2 (35-47) % MCV 103.0 H (78-100) fl MCH 31.8 (26-32) pg MCHC 30.8 L (32-36) g/dl RDW 14.9 H (11.5-14.0) % Plt Count 375 (150-450) K/mm3 MPV 9.4 (7.5-11.0) fl Segmented Neutrophils 79 H (36.0-66.0) % Lymphocytes (Manual) 14 L (24-44) % Monocytes (Manual) 7 (0.0-12.0) % Platelet Estimate NORMAL (NORMAL) RBC Morphology NORMAL pO2/FiO2 Ratio % VBG pH (7.32-7.42) VBG pCO2 at Pat Temp (42-55) mm/Hg VBG pO2 at Pat Temp (25-40) mm/Hg VBG HCO3 (22-28) meq/L VBG O2 Sat (Moe) (95-100) VBG Base Excess (-2.0-2.0) VBG Hemoglobin VBG Carboxyhemoglobin (0.0-6.9) % T HGB POC Potassium (3.5-5.1) Sodium (137-145) mmol/L Potassium (3.5-5.1) mmol/L Chloride (98-107) mmol/L Carbon Dioxide (22-30) mmol/L Anion Gap (5-15) MEQ/L BUN (7-17) mg/dL Creatinine (0.52-1.04) mg/dL Estimated GFR ML/MIN Glucose (74-106) mg/dL Lactic Acid (0.4-2.0) Calcium (8.4-10.2) mg/dL Magnesium (1.6-2.3) mg/dL Total Bilirubin (0.2-1.3) mg/dL AST (14-36) U/L ALT (0-35) U/L Alkaline Phosphatase (38-126) U/L Troponin I (0.000-0.034) ng/mL Serum Total Protein (6.3-8.2) g/dL Albumin (3.5-5.0) g/dL Lipase (23-300) U/L Influenza Type A Ag (NEGATIVE) Influenza Type B Ag (NEGATIVE) RSV (PCR) (Negative) SARS-CoV-2 (PCR) (NEGATIVE) - Progress Progress: improved Progress Note: 07/25/21 10:52 50-year-old is evaluated for vomiting/hyperglycemia with lethargy. Patient blood sugar was reading high, given fluid boluses x2. Work-up showed pH 7.2, low bicarb 7, gap of 38 and some COLLEEN. Started on insulin infusion after bolus. Central line is placed. Chest x-ray clear. White count 17 with a lactate of 5.7 but no obvious focus of infection. Discussed with Dr. Byers, will follow DKA protocol and patient is being admitted to ICU. Plan discussed with patient and family who understand and agree with it. Discussed with .: Leo Will see patient in: hospital (full admit) Counseled pt/family regarding: lab results, diagnosis, need for follow-up, rad results - Departure Departure Disposition: In-patient Admission Clinical Impression: DKA (diabetic ketoacidosis) Qualifiers: Diabetes mellitus type: type 1 Diabetes mellitus complication detail: without coma Qualified Code(s): E10.10 - Type 1 diabetes mellitus with ketoacidosis without coma Condition: Stable Critical Care Time: Yes Critical Care Time(excluding separately billable procedures): Critical 30-74 mins
[2021-07-25 09:53] LABS: ANION GAP 38.3 MEQ/L (5-15); BILIRUBIN,TOTAL 0.7 mg/dL (0.2-1.3); Calcium 9.8 mg/dL (8.4-10.2); Creatinine 1 1.43 mg/dL (0.52-1.04); EST GLOMERULAR FILTRATION RATE 39.9 ML/MIN; Total Protein 6.5 g/dL (6.3-8.2)
[2021-07-25 10:05] LABS: Potassium 6.1 mmol/L (3.5-5.1)
[2021-07-25 11:22] LABS: INFLUENZA A NEGATIVE (NEGATIVE); INFLUENZA B NEGATIVE (NEGATIVE); RESPIRATORY SYNCTIAL VIRUS NEGATIVE (Negative); SARS-CoV-2 Xpert Express NEGATIVE (NEGATIVE)
[2021-07-25] MEDS ORDERED: DUONEB 0.5-3 MG/3 ml Neb IH PRN (12:29)
[2021-07-25] MEDS: Sodium Chloride 0.9% 1000 ML 1,000 ML IV SCH (13:05)
[2021-07-25 13:30] LABS: VBG BASE EXCESS -8.6 (-2.0-2.0); VBG CARBOXYHEMOGLOBIN 4.6 % T HGB (0.0-6.9); VBG HCO3- 15.3 meq/L (22-28); VBG HEMOGLOBIN 12.7; VBG O2 SATURATION 99.5 (95-100); VBG POTASSIUM 4.1 (3.5-5.1); VBG pH 7.36 (7.32-7.42)
[2021-07-25 13:38] LABS: ANION GAP 23.1 MEQ/L (5-15); Calcium 9.1 mg/dL (8.4-10.2); Creatinine 1 1.09 mg/dL (0.52-1.04); EST GLOMERULAR FILTRATION RATE 54.6 ML/MIN
[2021-07-25] MEDS: Phenergan 25 MG INJ*** 25 MG in Sodium Chloride 0.9% 100 ML BAG 100 ML IV PRN ×3 (13:57→21:50)
[2021-07-25 13:59] LABS: Lymphocytes 14 % (24-44); Monocyte 7 % (0.0-12.0); Neutrophils 79 % (36.0-66.0); Total Cells Counted 100
[2021-07-25 14:00] LABS: Platelet Estimate NORMAL (NORMAL)
[2021-07-25 15:52] LABS: PREALBUMIN 25.19 mg/dL (17.6-36.0)
[2021-07-25 15:59] LABS: TROPONIN 0.013 ng/mL (0.000-0.034)
[2021-07-25] MEDS: D5W/0.45NS W/ 20mEq KCl 1000 ML 1,000 ML IV SCH ×2 (16:36→23:44)
[2021-07-25 17:14] LABS: BLOOD UREA NITROGEN 32 mg/dL (7-17); CHLORIDE 109 mmol/L (98-107); Carbon Dioxide 20 mmol/L (22-30); Creatinine 1 0.96 mg/dL (0.52-1.04); EST GLOMERULAR FILTRATION RATE > 60.0 ML/MIN; Glucose 246 mg/dL (74-106); Potassium 4.2 mmol/L (3.5-5.1); SODIUM 140 mmol/L (137-145)
[2021-07-25 17:32] LABS: VBG BASE EXCESS -1.9 (-2.0-2.0); VBG CARBOXYHEMOGLOBIN 1.7 % T HGB (0.0-6.9); VBG HCO3- 22.2 meq/L (22-28); VBG HEMOGLOBIN 12.3; VBG POTASSIUM 4.2 (3.5-5.1); VBG pH 7.41 (7.32-7.42)
--- NOTE | 2021-07-25 18:13 | XRAY ---
Indication: Central line placement. High blood sugar. Comparison: August 22, 2019. Portable chest demonstrates new right internal jugular central venous axis catheter with tip projecting atriocaval junction. No pneumothorax. Remaining heart and lungs unremarkable. Bony thorax intact. Comment: Preliminary interpretation made by [facility]. No critical discrepancy.
[2021-07-25] MEDS: Zofran 4 MG/2 ML VIAL IV PRN (20:00)
[2021-07-25 21:13] LABS: VBG BASE EXCESS -2.3 (-2.0-2.0); VBG CARBOXYHEMOGLOBIN 5.2 % T HGB (0.0-6.9); VBG HCO3- 21.2 meq/L (22-28); VBG HEMOGLOBIN 12.3; VBG O2 SATURATION 95.4 (95-100); VBG POTASSIUM 4.3 (3.5-5.1); VBG pH 7.43 (7.32-7.42)
[2021-07-25 21:31] LABS: ANION GAP 17.9 MEQ/L (5-15); BLOOD UREA NITROGEN 28 mg/dL (7-17); CHLORIDE 108 mmol/L (98-107); Calcium 8.9 mg/dL (8.4-10.2); Carbon Dioxide 20 mmol/L (22-30); Creatinine 1 0.81 mg/dL (0.52-1.04); EST GLOMERULAR FILTRATION RATE > 60.0 ML/MIN; Glucose 274 mg/dL (74-106); Potassium 4.4 mmol/L (3.5-5.1); SODIUM 141 mmol/L (137-145)
[2021-07-25] MEDS ORDERED: NON-FORMULARY ITEM (Cilostazol [Cilostazol] 50 MG Tablet) PO SCH (22:00)
[2021-07-25] MEDS: Pletal 100 MG PO SCH (22:28)
[2021-07-25] MEDS: ATARAX 25 MG PO SCH (22:30)
[2021-07-25] MEDS: Lopressor 50 MG PO SCH (22:30)
[2021-07-25] MEDS: XANAX 1 MG PO SCH (22:30)
[2021-07-26 01:16] LABS: VBG BASE EXCESS 3.1 (-2.0-2.0); VBG CARBOXYHEMOGLOBIN 3.6 % T HGB (0.0-6.9); VBG O2 SATURATION 81.5 (95-100); VBG POTASSIUM 4.2 (3.5-5.1); VBG pH 7.46 (7.32-7.42)
[2021-07-26] MEDS: Phenergan 25 MG INJ*** 25 MG in Sodium Chloride 0.9% 100 ML BAG 100 ML IV PRN ×6 (02:05→22:17)
[2021-07-26 02:15] LABS: ANION GAP 13.1 MEQ/L (5-15); BLOOD UREA NITROGEN 23 mg/dL (7-17); CHLORIDE 106 mmol/L (98-107); Calcium 8.8 mg/dL (8.4-10.2); Carbon Dioxide 25 mmol/L (22-30); EST GLOMERULAR FILTRATION RATE > 60.0 ML/MIN; Glucose 209 mg/dL (74-106); Potassium 4.1 mmol/L (3.5-5.1); SODIUM 140 mmol/L (137-145)
[2021-07-26 05:12] LABS: VBG BASE EXCESS 9.7 (-2.0-2.0); VBG CARBOXYHEMOGLOBIN 2.7 % T HGB (0.0-6.9); VBG HCO3- 34.3 meq/L (22-28); VBG HEMOGLOBIN 12.6; VBG O2 SATURATION 72.5 (95-100); VBG pH 7.49 (7.32-7.42)
[2021-07-26] MEDS: D5W/0.45NS W/ 20mEq KCl 1000 ML 1,000 ML IV SCH ×2 (05:57→11:07)
[2021-07-26 06:15] LABS: ANION GAP 11.7 MEQ/L (5-15); BLOOD UREA NITROGEN 19 mg/dL (7-17); CHLORIDE 103 mmol/L (98-107); Calcium 8.6 mg/dL (8.4-10.2); Carbon Dioxide 28 mmol/L (22-30); Creatinine 1 0.64 mg/dL (0.52-1.04); EST GLOMERULAR FILTRATION RATE > 60.0 ML/MIN; Glucose 225 mg/dL (74-106); Potassium 3.9 mmol/L (3.5-5.1); SODIUM 138 mmol/L (137-145)
[2021-07-26] MEDS: Sodium Chloride 0.9% 1000 ML 1,000 ML IV SCH ×3 (07:16→23:53)
[2021-07-26 09:08] LABS: VBG BASE EXCESS 13.3 (-2.0-2.0); VBG CARBOXYHEMOGLOBIN 3.8 % T HGB (0.0-6.9); VBG HCO3- 36.6 meq/L (22-28); VBG HEMOGLOBIN 12.2; VBG O2 SATURATION 82.7 (95-100); VBG POTASSIUM 3.5 (3.5-5.1)
[2021-07-26 09:09] LABS: VBG pH 7.57 (7.32-7.42)
[2021-07-26 09:42] LABS: ANION GAP 6.7 MEQ/L (5-15); BLOOD UREA NITROGEN 14 mg/dL (7-17); CHLORIDE 103 mmol/L (98-107); Calcium 8.6 mg/dL (8.4-10.2); Carbon Dioxide 31 mmol/L (22-30); Creatinine 1 0.53 mg/dL (0.52-1.04); EST GLOMERULAR FILTRATION RATE > 60.0 ML/MIN; Glucose 124 mg/dL (74-106); Potassium 3.5 mmol/L (3.5-5.1); SODIUM 138 mmol/L (137-145)
[2021-07-26] MEDS: ATARAX 25 MG PO SCH ×2 (10:39→23:03)
[2021-07-26] MEDS: Pletal 100 MG PO SCH ×2 (10:39→22:07)
[2021-07-26] MEDS ORDERED: Ventolin Hfa MDI IH PRN (13:02)
[2021-07-26] MEDS ORDERED: VENTOLIN COMMON CANISTER IH PRN (13:04)
--- NOTE | 2021-07-26 13:53 | XRAY ---
Indication: Pain and swelling. Two-dimensional sonogram and color Doppler imaging of the major arteries of the left and right leg performed. Comparison: None Examination of the right leg demonstrates minimal scattered arteriosclerotic disease in the common femoral, deep femoral, superficial femoral, and popliteal arteries without critical stenosis/obstruction. Posterior tibial and dorsal pedal arteries are widely patent. Arterial waveforms are monophasic in the popliteal, posterior tibial, and dorsal pedal arteries. Remaining right leg arterial waveforms are multiphasic. Right arm brachial pressure is 156. Right ankle pressure is under 37. Ankle brachial index is 0.87 favoring mild ischemic disease. Examination of the left leg demonstrates minimal scattered arteriosclerotic disease in the common femoral and superficial femoral arteries without critical stenosis/obstruction. Remaining deep femoral, popliteal, posterior tibial, and dorsal pedal arteries are widely patent. Arterial waveforms are monophasic in the posterior tibial and dorsal pedal arteries. Remaining left leg arterial waveforms are multiphasic. Left arm brachial pressure is 155. Left ankle pressure is 126. Ankle brachial index is 0.8 favoring mild ischemic disease. Impression: Minimal scattered arteriosclerotic disease bilaterally. Left and right ABIs favor mild ischemic disease. CTA abdominal aorta with bilateral runoff may yield further information.
[2021-07-26] MEDS ORDERED: HUMALOG SQ PRN (15:28)
[2021-07-26] MEDS: XANAX 1 MG PO SCH (22:08)
[2021-07-26] MEDS: Lopressor 50 MG PO SCH (23:03)
[2021-07-26] MEDS: Zofran 4 MG/2 ML VIAL IV PRN (23:56)
[2021-07-27] MEDS: Phenergan 25 MG INJ*** 25 MG in Sodium Chloride 0.9% 100 ML BAG 100 ML IV PRN ×4 (08:06→22:14)
--- NOTE | 2021-07-27 08:10 | PCM.HP ---
History of Present Illness - Chief Complaint Chief Complaint: weakness and lethargy for 3-4 days History of Present Illness: is a 60 year old female. with history of insulin-dependent diabetes mellitus, hypertension, anxiety presented to the ER with chief complaint of elevated blood sugar since yesterday. Patient is lethargic, sleepy but arousable and answering most of the questions. She falls back asleep in between. He is complaining of vomiting since morning with no abdominal pain. No chest pain or difficulty breathing. Patient reports she took 4 units of insulin prior to arrival. Does have history of DKA. Patient is not a very good historian and history is limited - Review of Systems Constitutional: Lethargy, Weakness, No Fever, No Chills Eyes: No Symptoms Ears, Nose, & Throat: No Symptoms Respiratory: No Cough, No Short Of Breath Cardiac: No Chest Pain, No Edema, No Syncope Abdominal/Gastrointestinal: No Abdominal Pain, No Nausea, No Vomiting, No Diarrhea Genitourinary Symptoms: No Dysuria Musculoskeletal: No Back Pain, No Neck Pain Skin: No Rash Neurological: No Dizziness, No Focal Weakness, No Sensory Changes Psychological: No Symptoms Endocrine: No Symptoms Hematologic/Lymphatic: No Symptoms Immunological/Allergic: No Symptoms Medications & Allergies Home Medications: Home Medication List Insulin Lispro [Humalog] 1 unit SQ UD 11/14/16 [History Confirmed 07/25/21] Albuterol Sulfate [Albuterol Sulfate Hfa] 2 puff IH Q4-6HPRN PRN #1 hfa.aer.[id number] 07/18/17 [Rx Confirmed 07/25/21] Cyclobenzaprine HCl 10 mg [Cyclobenzaprine 10 MG] 10 mg PO QID 02/13/19 [History Confirmed 07/25/21] ALPRAZolam 1 MG [Xanax 1 mg] 1 mg PO HS 08/25/19 [History Confirmed 07/25/21] Metoprolol Tartrate 50 mg PO HS 08/25/19 [History Confirmed 07/25/21] Promethazine HCl 25 mg [Phenergan 25 mg] 25 mg PO QID PRN 07/17/21 [History Confirmed 07/25/21] Cefuroxime Axetil [Cefuroxime] 500 mg PO Q12H 07/25/21 [History Confirmed 07/25/21] Hydroxyzine HCl 25 mg [Atarax 25 mg] 25 mg PO BID 07/25/21 [History Confirmed 07/25/21] cilostazoL [Cilostazol] 50 mg PO BID 07/25/21 [History Confirmed 07/25/21] Allergies/Adverse Reactions: Allergies Allergy/AdvReac Type Severity Reaction Status Date / Time orphenadrine citrate Allergy Intermediate Verified 07/25/21 08:44 [From Norflex] adhesive tape Allergy Verified 07/25/21 08:44 hydrocodone bitartrate AdvReac Mild Verified 07/25/21 08:44 [From [place]] levofloxacin [From Levaquin] AdvReac Mild Nausea and Verified 07/25/21 08:44 Vomiting - Past Medical History Past Medical History: Yes Neurological History: No Pertinent History ENT History: No Pertinent History Cardiac History: Coronary Artery Disease, High Cholesterol, Hypertension Respiratory History: Asthma, Bronchitis, COPD, Emphysema, Pneumonia Endocrine Medical History: Diabetes Type I, Hypoglycemia Musculoskelatal History: Fractures GI Medical History: GERD History: Renal Disease Pyscho-Social History: Anxiety, Depression Reproductive Disorders: No Pertinent History Comment: Previous R 3rd left leg fx many years ago,rt wrist fx with cast - Female History Hx Last Menstrual Period: POST Are you now?: No - Past Surgical History Past Surgical History: Yes Neuro Surgical History: No Pertinent History Cardiac History: Cardiac Catheterization, Cardiac Stent Respiratory Surgery: No Pertinent History GI Surgical History: Cholecystectomy Genitourinary Surgical Hx: No Pertinent History Musculskeletal Surgical Hx: Other Female Surgical History: Tubal Ligation Other Surgical History: BUNONECTOMY. BACK SURGERY X2, - Social History Smoking Status: Current every day smoker How long have you smoked: 30 YEARS Exposure to second hand smoke: Yes Alcohol: None Drug Use: none Significant Family History: heart disease, diabetes, hypertension - Physical Exam Vital Signs: Vital Signs - 24 hr Temp Pulse Resp BP Pulse Ox 07/27/21 07:39 98.2 F 100 H 18 155/93 96 07/27/21 04:00 99.1 F 99 H 16 158/80 96 07/27/21 00:00 20 07/26/21 23:49 99.3 F 93 H 20 157/92 95 07/26/21 20:00 98.4 F 122 H 20 142/78 94 L 07/26/21 15:44 99.5 F 119 H 18 114/68 96 07/26/21 12:00 18 07/26/21 11:52 98.2 F 101 H 18 137/68 98 General Appearance: no apparent distress, alert Neurologic Exam: alert, oriented x 3, cooperative, normal mood/affect, nml cerebellar function, nml station & gait, sensation nml, No motor deficits Eye Exam: PERRL/EOMI, eyes nml inspection Ears, Nose, Throat Exam: normal ENT inspection, TMs normal, pharynx normal, moist mucous membranes Neck Exam: normal inspection, non-tender, supple, full range of motion Respiratory Exam: normal breath sounds, lungs clear, No respiratory distress Cardiovascular Exam: regular rate/rhythm, normal heart sounds, normal peripheral pulses Gastrointestinal/Abdomen Exam: soft, normal bowel sounds, No tenderness, No mass Back Exam: normal inspection, normal range of motion, No CVA tenderness, No vertebral tenderness Extremity Exam: normal inspection, normal range of motion, pelvis stable, inflammation (both lower extrimitiew) Skin Exam: normal color, warm, dry, No rash Lymphatic Exam: No adenopathy Results - Labs Lab/Micro Results: Lab Results-Last 24 Hours 07/26/21 07/26/21 07/26/21 Range/Units 05:51 09:00 11:05 pO2/FiO2 Ratio 21.0 % VBG pH 7.57 H* (7.32-7.42) VBG pCO2 at Pat Temp 40 L (42-55) mm/Hg VBG pO2 at Pat Temp 43 H (25-40) mm/Hg VBG HCO3 36.6 H* (22-28) meq/L VBG O2 Sat (Moe) 82.7 L (95-100) VBG Base Excess 13.3 H (-2.0-2.0) VBG Hemoglobin 12.2 VBG Carboxyhemoglobin 3.8 (0.0-6.9) % T HGB POC Potassium 3.5 (3.5-5.1) Sodium 138 (137-145) mmol/L Potassium 3.5 (3.5-5.1) mmol/L Chloride 103 (98-107) mmol/L Carbon Dioxide 31 H (22-30) mmol/L Anion Gap 6.7 (5-15) MEQ/L BUN 14 (7-17) mg/dL Creatinine 0.53 (0.52-1.04) mg/dL Estimated GFR > 60.0 ML/MIN Glucose 124 H (74-106) mg/dL POC Glucometer 107 H (74 to 106) mg/dL Calcium 8.6 (8.4-10.2) mg/dL 07/26/21 07/26/21 07/26/21 Range/Units 13:43 15:25 21:35 pO2/FiO2 Ratio % VBG pH (7.32-7.42) VBG pCO2 at Pat Temp (42-55) mm/Hg VBG pO2 at Pat Temp (25-40) mm/Hg VBG HCO3 (22-28) meq/L VBG O2 Sat (Moe) (95-100) VBG Base Excess (-2.0-2.0) VBG Hemoglobin VBG Carboxyhemoglobin (0.0-6.9) % T HGB POC Potassium (3.5-5.1) Sodium (137-145) mmol/L Potassium (3.5-5.1) mmol/L Chloride (98-107) mmol/L Carbon Dioxide (22-30) mmol/L Anion Gap (5-15) MEQ/L BUN (7-17) mg/dL Creatinine (0.52-1.04) mg/dL Estimated GFR ML/MIN Glucose (74-106) mg/dL POC Glucometer 243 H 119 H 141 H (74 to 106) mg/dL Calcium (8.4-10.2) mg/dL 07/27/21 Range/Units 07:09 pO2/FiO2 Ratio % VBG pH (7.32-7.42) VBG pCO2 at Pat Temp (42-55) mm/Hg VBG pO2 at Pat Temp (25-40) mm/Hg VBG HCO3 (22-28) meq/L VBG O2 Sat (Moe) (95-100) VBG Base Excess (-2.0-2.0) VBG Hemoglobin VBG Carboxyhemoglobin (0.0-6.9) % T HGB POC Potassium (3.5-5.1) Sodium (137-145) mmol/L Potassium (3.5-5.1) mmol/L Chloride (98-107) mmol/L Carbon Dioxide (22-30) mmol/L Anion Gap (5-15) MEQ/L BUN (7-17) mg/dL Creatinine (0.52-1.04) mg/dL Estimated GFR ML/MIN Glucose (74-106) mg/dL POC Glucometer 143 H (74 to 106) mg/dL Calcium (8.4-10.2) mg/dL Microbiology 07/25/21 09:35 Blood Culture - Preliminary Blood NO GROWTH TO DATE 07/25/21 09:25 Blood Culture - Preliminary Blood NO GROWTH TO DATE Accuchecks Date 07/27/21 Date 07/26/21 Date 07/26/21 Time 07:40 Time 21:45 Time 07:00 - Radiology Impressions Radiology Exams & Impressions: Radiology Procedures Category Date Time Status ARTERIAL BILAT LOWER EXTREMITY [US] Routine Exams 07/26/21 13:18 Completed CHEST 1 VIEW (PORTABLE) Stat Exams 07/25/21 08:50 Completed Assessment/Plan (1) DKA (diabetic ketoacidosis) Current Visit: Yes Status: Acute Qualifiers: Diabetes mellitus type: type 1 Diabetes mellitus complication detail: without coma Qualified Code(s): E10.10 - Type 1 diabetes mellitus with ketoacidosis without coma Assessment & Plan: Chief Complaint Diagnosis DKA Allergies Allergy/AdvReac Type Severity Reaction Status Date / Time orphenadrine citrate Allergy Intermediate Verified 07/25/21 08:44 [From Norflex] adhesive tape Allergy Verified 07/25/21 08:44 hydrocodone bitartrate AdvReac Mild Verified 07/25/21 08:44 [From [place]] levofloxacin [From Levaquin] AdvReac Mild Nausea and Verified 07/25/21 08:44 Vomiting Vital Signs (Last 24 hours) Temp Pulse Resp BP Pulse Ox 07/27/21 07:39 98.2 F 100 H 18 155/93 96 07/27/21 04:00 99.1 F 99 H 16 158/80 96 07/27/21 00:00 20 07/26/21 23:49 99.3 F 93 H 20 157/92 95 07/26/21 20:00 98.4 F 122 H 20 142/78 94 L 07/26/21 15:44 99.5 F 119 H 18 114/68 96 07/26/21 12:00 18 07/26/21 11:52 98.2 F 101 H 18 137/68 98 Home Medications Medication Instructions Recorded Confirmed Last Taken Type Cefuroxime Axetil [Cefuroxime] 500 mg PO Q12H 07/25/21 07/25/21 Unknown History Hydroxyzine HCl 25 mg [Atarax 25 mg PO BID 07/25/21 07/25/21 Unknown History 25 mg] cilostazoL [Cilostazol] 50 mg PO BID 07/25/21 07/25/21 Unknown History Current Medications Generic Name Dose Route Start Last Admin Trade Name Freq PRN Reason Stop Dose Admin Alprazolam 1 mg 07/25/21 22:00 07/26/21 22:08 Alprazolam 1 Mg Tablet PO 08/24/21 21:59 1 mg HS NISSA Administration Cilostazol 50 mg 07/25/21 22:00 07/26/21 22:07 Cilostazol 100 Mg Tablet PO 08/24/21 21:59 50 mg BID NISSA Administration Hydroxyzine HCl 25 mg 07/25/21 22:00 07/26/21 23:03 Hydroxyzine Hcl 25 Mg Tablet PO 08/24/21 21:59 25 mg BID NISSA Administration Promethazine HCl 25 mg/ Sodium 101 mls @ 200 mls/hr 07/25/21 13:07 07/26/21 22:17 Chloride IV 08/24/21 13:06 200 mls/hr Q4H PRN PRN Administration UNCONTROLLED NAUSEA Sodium Chloride 1,000 mls @ 100 mls/hr 07/25/21 13:15 07/26/21 23:53 Sodium Chloride 0.9% 1000 Ml IV 08/24/21 13:14 100 mls/hr .Q10H NISSA Administration Insulin Human Lispro 0 unit 07/26/21 15:28 Insulin Lispro 1 Unit SQ 08/25/21 15:27 UD PRN HYPERGLYCEMIA Metoprolol Tartrate 50 mg 07/25/21 22:00 07/26/21 23:03 Metoprolol Tartrate 50 Mg Tablet PO 08/24/21 21:59 50 mg HS NISSA Administration Ondansetron HCl 4 mg 07/25/21 12:29 07/26/21 23:56 Ondansetron Hcl 4 Mg/2 Ml Vial IV 08/24/21 12:28 4 mg Q6H PRN PRN Administration NAUSEA/VOMITING Discontinued Medications Generic Name Dose Route Start Last Admin Trade Name Petrona PRN Reason Stop Dose Admin Albuterol Sulfate 2 puff 07/26/21 13:04 Albuterol Common Canister Inhaler 08/25/21 13:03 Q4HPRN PRN cough or wheeze Albuterol/Ipratropium 3 ml 07/25/21 12:29 Ipratropium/Albuterol Sulfate 3 Ml Ampul.Neb 08/24/21 12:28 Q4HPRN PRN SHORTNESS OF BREATH/WHEEZING Sodium Chloride 1,000 mls @ 999 mls/hr 07/25/21 08:49 07/25/21 10:28 Sodium Chloride 0.9% 1000 Ml IV 07/25/21 09:49 Infused .Q1H1M STA Infusion Sodium Chloride Confirm 07/25/21 09:23 Sodium Chloride 0.9% 1000 Ml Administered 07/25/21 09:24 Dose 1,000 mls @ ud .ROUTE .STK-MED ONE Insulin Human Regular 100 unit 100 mls @ 5.22 mls/hr 07/25/21 09:37 07/26/21 11:08 / Sodium Chloride IV 08/24/21 09:36 Infused .[id number] PRN Titration DKA/HYPERGLYCEMIA Protocol 0.1 UNIT/KG/HR Sodium Chloride 1,000 mls @ 999 mls/hr 07/25/21 10:28 07/25/21 10:29 Sodium Chloride 0.9% 1000 Ml IV 07/25/21 11:28 999 mls/hr .Q1H1M STA Administration Sodium Chloride Confirm 07/25/21 10:26 Sodium Chloride 0.9% 1000 Ml Administered 07/25/21 10:27 Dose 1,000 mls @ ud .ROUTE .STK-MED ONE Potassium Chloride/Dextrose/Sod Cl 1,000 mls @ 150 mls/hr 07/25/21 13:30 07/26/21 11:07 D5w/0.45ns W/ 20meq Kcl 1000 Ml IV 08/24/21 13:29 Not Given .Q6H40M [facility] Insulin Human Regular 5 unit 07/25/21 09:37 07/25/21 09:45 Insulin Regular, Human 1 Unit IV 07/25/21 09:38 5 unit STAT ONE Administration Insulin Human Regular Confirm 07/25/21 09:39 Insulin Regular, Human 1 Unit Administered 07/25/21 09:40 Dose 1 unit .ROUTE .STK-MED ONE Insulin Human Regular Confirm 07/25/21 09:42 Insulin Regular, Human 1 Unit Administered 07/25/21 09:43 Dose 4 unit .ROUTE .STK-MED ONE Ondansetron HCl Confirm 07/25/21 08:55 Zofran 4 Mg/Udtablet Orally Disintegrating Administered 07/25/21 08:56 Dose 4 mg .ROUTE .STK-MED ONE Ondansetron HCl Confirm 07/25/21 09:23 Ondansetron Hcl 4 Mg/2 Ml Vial Administered 07/25/21 09:24 Dose 4 mg .ROUTE .STK-MED ONE Ondansetron HCl 4 mg 07/25/21 09:28 07/25/21 09:29 Zofran 4 Mg/Udtablet Orally Disintegrating PO 07/25/21 09:29 4 mg STAT ONE Administration Intake & Output (Last 24 hours) 07/24/21 07/25/21 07/26/21 07/27/21 11:59 11:59 11:59 11:59 Intake Total 3076 3214 Output Total 450 Balance 2626 3214 Weight 52.4 kg 52.4 kg 53.2 kg Microbiology Results (Last 24 hours) 07/25/21 09:35 Blood Blood Culture Gram Stain - Pending 07/25/21 09:35 Blood Blood Culture - Preliminary NO GROWTH TO DATE 07/25/21 09:25 Blood Blood Culture Gram Stain - Pending 07/25/21 09:25 Blood Blood Culture - Preliminary NO GROWTH TO DATE Laboratory Results (Last 24 hours) 07/27/21 07/26/21 07/26/21 07:09 21:35 15:25 pO2/FiO2 Ratio VBG pH VBG pCO2 at Pat Temp VBG pO2 at Pat Temp VBG HCO3 VBG O2 Sat (Moe) VBG Base Excess VBG Hemoglobin VBG Carboxyhemoglobin POC Potassium Sodium Potassium Chloride Carbon Dioxide Anion Gap BUN Creatinine Estimated GFR Glucose POC Glucometer 143 H 141 H 119 H Calcium 07/26/21 07/26/21 07/26/21 13:43 11:05 09:00 pO2/FiO2 Ratio VBG pH VBG pCO2 at Pat Temp VBG pO2 at Pat Temp VBG HCO3 VBG O2 Sat (Moe) VBG Base Excess VBG Hemoglobin VBG Carboxyhemoglobin POC Potassium Sodium 138 Potassium 3.5 Chloride 103 Carbon Dioxide 31 H Anion Gap 6.7 BUN 14 Creatinine 0.53 Estimated GFR > 60.0 Glucose 124 H POC Glucometer 243 H 107 H Calcium 8.6 07/26/21 05:51 pO2/FiO2 Ratio 21.0 VBG pH 7.57 H* VBG pCO2 at Pat Temp 40 L VBG pO2 at Pat Temp 43 H VBG HCO3 36.6 H* VBG O2 Sat (Moe) 82.7 L VBG Base Excess 13.3 H VBG Hemoglobin 12.2 VBG Carboxyhemoglobin 3.8 POC Potassium 3.5 Sodium Potassium Chloride Carbon Dioxide Anion Gap BUN Creatinine Estimated GFR Glucose POC Glucometer Calcium Orders (Last 24 hours) Category Date Time Status ARTERIAL BILAT LOWER EXTREMITY [US] Routine Exams 07/26/21 13:18 Completed BMP Q4H Lab 07/26/21 09:00 Completed POCT GLUCOSE Stat Lab 07/26/21 07:56 Completed POCT GLUCOSE Stat Lab 07/26/21 11:05 Completed POCT GLUCOSE Stat Lab 07/26/21 13:43 Completed POCT GLUCOSE Stat Lab 07/26/21 15:25 Completed POCT GLUCOSE Stat Lab 07/26/21 21:35 Completed POCT GLUCOSE Stat Lab 07/27/21 07:07 Received POCT GLUCOSE Stat Lab 07/27/21 07:09 Completed Albuterol Common Canister [Ventolin Common Canister* Med 07/26/21 13:04 Discontinued ] 2 puff IH Q4HPRN PRN Insulin Lispro [Humalog] Med 07/26/21 15:28 Active See Dose Instructions SQ UD PRN Patient Care Notes (Last 24 hours) 07/26/21 12:10 Nursing Note by Neeta Gutierrez ROUNDED WITH DR. ARIAS. HE ORDERED ARTERIAL DOPPLER. PATIENT WILL PLAN TO DISCHARGE TOMORROW Initialized on 07/26/21 12:10 - END OF NOTE 07/26/21 11:15 Nursing Note by Erika Greenberg brought insulin pump, insulin drip off. Initialized on 07/26/21 11:15 - END OF NOTE Code(s): E11.10 - TYPE 2 DIABETES MELLITUS WITH KETOACIDOSIS WITHOUT COMA (2) Peripheral vascular disease due to secondary diabetes Current Visit: Yes Status: Acute Code(s): E13.51 - OTH DIABETES W DIABETIC PERIPHERAL ANGIOPATHY W/O GANGRENE (3) Weakness Current Visit: No Status: Acute Code(s): R53.1 - WEAKNESS
[2021-07-27] MEDS: Pletal 100 MG PO SCH ×2 (08:55→22:18)
[2021-07-27] MEDS: ATARAX 25 MG PO SCH ×2 (08:55→22:18)
[2021-07-27] MEDS: Sodium Chloride 0.9% 1000 ML 1,000 ML IV SCH ×2 (10:30→22:17)
[2021-07-27 12:19] LABS: Hematocrit 43.6 % (35-47); Hemoglobin 14.4 gm/dl (12.0-16.0); Mean Cell Volume 96.7 fl (78-100); Mean Corpuscular Hemoglobin 31.9 pg (26-32); Mean Platelet Volume 8.4 fl (7.5-11.0); Platelet Count 296 K/mm3 (150-450); Red Blood Count 4.51 M/mm3 (4.1-5.4); Red Cell Distribution Width 14.3 % (11.5-14.0)
[2021-07-27 12:29] LABS: ALBUMIN 3.6 g/dL (3.5-5.0); ALKALINE PHOSPHATASE 93 U/L (38-126); ANION GAP 10.2 MEQ/L (5-15); BLOOD UREA NITROGEN 8 mg/dL (7-17); CHLORIDE 98 mmol/L (98-107); Calcium 8.7 mg/dL (8.4-10.2); Carbon Dioxide 32 mmol/L (22-30); Creatinine 1 0.53 mg/dL (0.52-1.04); EST GLOMERULAR FILTRATION RATE > 60.0 ML/MIN; Glucose 162 mg/dL (74-106); Potassium 3.2 mmol/L (3.5-5.1); SGOT/AST 27 U/L (14-36); SGPT/ALT 16 U/L (0-35); SODIUM 137 mmol/L (137-145); Total Protein 6.7 g/dL (6.3-8.2)
[2021-07-27] MEDS: POTASSIUM CHLORIDE 20 mEq IN WATER 100ML 20 MEQ/100 ML BAG IV SCH ×2 (13:50→15:37)
[2021-07-27] MEDS: XANAX 1 MG PO SCH (22:18)
[2021-07-27] MEDS: Lopressor 50 MG PO SCH (22:19)
[2021-07-28 04:43] LABS: Hematocrit 43.2 % (35-47); Hemoglobin 14.6 gm/dl (12.0-16.0); Mean Cell Volume 95.2 fl (78-100); Mean Corpuscular Hemoglobin 32.2 pg (26-32); Mean Corpuscular Hgb Concent. 33.8 g/dl (32-36); Mean Platelet Volume 8.5 fl (7.5-11.0); Platelet Count 252 K/mm3 (150-450); Red Blood Count 4.54 M/mm3 (4.1-5.4); Red Cell Distribution Width 14.1 % (11.5-14.0); White Blood Count 7.9 K/mm3 (4.0-10.5)
[2021-07-28 05:12] LABS: ALBUMIN 3.1 g/dL (3.5-5.0); ALKALINE PHOSPHATASE 78 U/L (38-126); ANION GAP 9.5 MEQ/L (5-15); BLOOD UREA NITROGEN 9 mg/dL (7-17); CHLORIDE 103 mmol/L (98-107); Calcium 8.6 mg/dL (8.4-10.2); Carbon Dioxide 29 mmol/L (22-30); Creatinine 1 0.61 mg/dL (0.52-1.04); EST GLOMERULAR FILTRATION RATE > 60.0 ML/MIN; Glucose 75 mg/dL (74-106); Potassium 3.3 mmol/L (3.5-5.1); SGOT/AST 24 U/L (14-36); SGPT/ALT 14 U/L (0-35); SODIUM 138 mmol/L (137-145)
[2021-07-28] MEDS: Phenergan 25 MG INJ*** 25 MG in Sodium Chloride 0.9% 100 ML BAG 100 ML IV PRN ×3 (08:03→21:14)
[2021-07-28] MEDS ORDERED: K-LYTE 25 MEQ PO ONE (08:41)
[2021-07-28] MEDS: ATARAX 25 MG PO SCH ×2 (08:53→21:12)
[2021-07-28] MEDS: Pletal 100 MG PO SCH ×2 (08:53→21:12)
[2021-07-28] MEDS: Zestril 10 MG PO SCH (08:54)
[2021-07-28] MEDS: Sodium Chloride 0.9% 1000 ML 1,000 ML IV SCH ×3 (09:12→21:11)
[2021-07-28] MEDS ORDERED: XYLOCAINE VISCOUS 2% 20 ML CUP ONE (13:50)
[2021-07-28] MEDS ORDERED: MAALOX ES 30 ML UNIT DOSE ONE (13:50)
[2021-07-28] MEDS ORDERED: GI COCKTAIL 45 ML (Maalox/Lidocaine) PO ONE (14:00)
--- NOTE | 2021-07-28 19:33 | PCM.NOTE ---
Date and Time: 07/28/211931 Subjective Assessment: still nausea, unable to eat - Review of Systems Constitutional: No Fever, No Chills Eyes: No Symptoms Ears, Nose, & Throat: No Symptoms Respiratory: No Cough, No Short Of Breath Cardiac: No Chest Pain, No Edema, No Syncope Abdominal/Gastrointestinal: Abdominal Pain, Nausea, Vomiting, No Diarrhea Genitourinary Symptoms: No Dysuria Musculoskeletal: No Back Pain, No Neck Pain Skin: No Rash Neurological: No Dizziness, No Focal Weakness, No Sensory Changes Psychological: No Symptoms Endocrine: No Symptoms Hematologic/Lymphatic: No Symptoms Immunological/Allergic: No Symptoms Objective Exam General Appearance: no apparent distress, alert Neurologic Exam: alert, oriented x 3, cooperative, normal mood/affect, nml cerebellar function, sensation nml, No motor deficits Skin Exam: normal color, warm, dry Eye Exam: PERRL, EOMI, eyes nml inspection Ears, Nose, Throat Exam: normal ENT inspection, pharynx normal, moist mucous membranes Neck Exam: normal inspection, non-tender, supple, full range of motion Respiratory Exam: normal breath sounds, lungs clear, No respiratory distress Cardiovascular Exam: regular rate/rhythm, normal heart sounds Gastrointestinal/Abdomen Exam: soft, No tenderness, No mass Extremity Exam: normal inspection, normal range of motion Back Exam: normal inspection, normal range of motion, No CVA tenderness, No vertebral tenderness Pelvic Exam: deferred Rectal Exam: deferred OBJECTIVE DATA Vital Signs: Vital Signs - 24 hr Temp Pulse Resp BP BP Pulse Ox 07/28/21 16:00 98.6 F 114 H 20 156/81 93 L 07/28/21 12:00 98.0 F 122 H 21 165/96 96 07/28/21 08:00 97.7 F 110 H 26 H 174/103 94 L 07/28/21 04:10 97.7 F 102 H 20 128/89 96 07/28/21 04:00 20 07/28/21 00:00 21 07/27/21 23:46 98.5 F 89 19 103/63 95 07/27/21 20:00 18 Pain Assessment - Last Documented Pain Intensity 0 Intake and Output: Intake & Output 07/26/21 07/27/21 07/28/21 07/29/21 11:59 11:59 11:59 11:59 Intake Total 3076 3214 3165 240 Output Total 450 Balance 2626 3214 3165 240 Weight 52.4 kg 53.2 kg 51.7 kg Lab Results: Lab Results-Last 24 Hours 07/27/21 07/27/21 07/28/21 Range/Units 19:40 21:14 04:38 WBC 7.9 (4.0-10.5) K/mm3 RBC 4.54 (4.1-5.4) M/mm3 Hgb 14.6 (12.0-16.0) gm/dl Hct 43.2 (35-47) % MCV 95.2 (78-100) fl MCH 32.2 H (26-32) pg MCHC 33.8 (32-36) g/dl RDW 14.1 H (11.5-14.0) % Plt Count 252 (150-450) K/mm3 MPV 8.5 (7.5-11.0) fl Sodium (137-145) mmol/L Potassium 3.8 (3.5-5.1) mmol/L Chloride (98-107) mmol/L Carbon Dioxide (22-30) mmol/L Anion Gap (5-15) MEQ/L BUN (7-17) mg/dL Creatinine (0.52-1.04) mg/dL Estimated GFR ML/MIN Glucose (74-106) mg/dL POC Glucometer 160 H (74 to 106) mg/dL Calcium (8.4-10.2) mg/dL Total Bilirubin (0.2-1.3) mg/dL AST (14-36) U/L ALT (0-35) U/L Alkaline Phosphatase (38-126) U/L Serum Total Protein (6.3-8.2) g/dL Albumin (3.5-5.0) g/dL 07/28/21 07/28/21 07/28/21 Range/Units 04:38 07:32 08:31 WBC (4.0-10.5) K/mm3 RBC (4.1-5.4) M/mm3 Hgb (12.0-16.0) gm/dl Hct (35-47) % MCV (78-100) fl MCH (26-32) pg MCHC (32-36) g/dl RDW (11.5-14.0) % Plt Count (150-450) K/mm3 MPV (7.5-11.0) fl Sodium 138 (137-145) mmol/L Potassium 3.3 L (3.5-5.1) mmol/L Chloride 103 (98-107) mmol/L Carbon Dioxide 29 (22-30) mmol/L Anion Gap 9.5 (5-15) MEQ/L BUN 9 (7-17) mg/dL Creatinine 0.61 (0.52-1.04) mg/dL Estimated GFR > 60.0 ML/MIN Glucose 75 (74-106) mg/dL POC Glucometer 54 L 121 H (74 to 106) mg/dL Calcium 8.6 (8.4-10.2) mg/dL Total Bilirubin 0.70 (0.2-1.3) mg/dL AST 24 (14-36) U/L ALT 14 (0-35) U/L Alkaline Phosphatase 78 (38-126) U/L Serum Total Protein 6.0 L (6.3-8.2) g/dL Albumin 3.1 L (3.5-5.0) g/dL 07/28/21 07/28/21 Range/Units 11:32 15:34 WBC (4.0-10.5) K/mm3 RBC (4.1-5.4) M/mm3 Hgb (12.0-16.0) gm/dl Hct (35-47) % MCV (78-100) fl MCH (26-32) pg MCHC (32-36) g/dl RDW (11.5-14.0) % Plt Count (150-450) K/mm3 MPV (7.5-11.0) fl Sodium (137-145) mmol/L Potassium (3.5-5.1) mmol/L Chloride (98-107) mmol/L Carbon Dioxide (22-30) mmol/L Anion Gap (5-15) MEQ/L BUN (7-17) mg/dL Creatinine (0.52-1.04) mg/dL Estimated GFR ML/MIN Glucose (74-106) mg/dL POC Glucometer 276 H 251 H (74 to 106) mg/dL Calcium (8.4-10.2) mg/dL Total Bilirubin (0.2-1.3) mg/dL AST (14-36) U/L ALT (0-35) U/L Alkaline Phosphatase (38-126) U/L Serum Total Protein (6.3-8.2) g/dL Albumin (3.5-5.0) g/dL Multi-Disciplinary Progress Notes: Multi-Disciplinary Progress Notes 07/28/21 11:43 Case Management Note by Arianna Baker REVIEWED CHART- NO NEW NEEDS IDENTIFIED AT THIS TIME FOR DC. PATIENT TO DC HOME TO HER PRIOR LEVEL OF FUNCTIONING AT TIME OF DC. Initialized on 07/28/21 11:43 - END OF NOTE Assessment/Plan (1) DKA (diabetic ketoacidosis) Current Visit: Yes Status: Acute Qualifiers: Diabetes mellitus type: type 1 Diabetes mellitus complication detail: without coma Qualified Code(s): E10.10 - Type 1 diabetes mellitus with ketoacidosis without coma Assessment & Plan: Chief Complaint Diagnosis weakness and lethargy for 3-4 days Allergies Allergy/AdvReac Type Severity Reaction Status Date / Time orphenadrine citrate Allergy Intermediate Verified 07/25/21 08:44 [From Norflex] adhesive tape Allergy Verified 07/25/21 08:44 hydrocodone bitartrate AdvReac Mild Verified 07/25/21 08:44 [From [place]] levofloxacin [From Levaquin] AdvReac Mild Nausea and Verified 07/25/21 08:44 Vomiting Vital Signs (Last 24 hours) Temp Pulse Resp BP BP Pulse Ox 07/28/21 16:00 98.6 F 114 H 20 156/81 93 L 07/28/21 12:00 98.0 F 122 H 21 165/96 96 07/28/21 08:00 97.7 F 110 H 26 H 174/103 94 L 07/28/21 04:10 97.7 F 102 H 20 128/89 96 07/28/21 04:00 20 07/28/21 00:00 21 07/27/21 23:46 98.5 F 89 19 103/63 95 07/27/21 20:00 18 Home Medications Medication Instructions Recorded Confirmed Last Taken Type Cefuroxime Axetil [Cefuroxime] 500 mg PO Q12H 07/25/21 07/25/21 Unknown History Hydroxyzine HCl 25 mg [Atarax 25 mg PO BID 07/25/21 07/25/21 Unknown History 25 mg] cilostazoL [Cilostazol] 50 mg PO BID 07/25/21 07/25/21 Unknown History Current Medications Generic Name Dose Route Start Last Admin Trade Name Yairq PRN Reason Stop Dose Admin Alprazolam 1 mg 07/25/21 22:00 07/27/21 22:18 Alprazolam 1 Mg Tablet PO 08/24/21 21:59 1 mg HS NISSA Administration Cilostazol 50 mg 07/25/21 22:00 07/28/21 08:53 Cilostazol 100 Mg Tablet PO 08/24/21 21:59 50 mg BID NISSA Administration Hydroxyzine HCl 25 mg 07/25/21 22:00 07/28/21 08:53 Hydroxyzine Hcl 25 Mg Tablet PO 08/24/21 21:59 25 mg BID NISSA Administration Promethazine HCl 25 mg/ Sodium 101 mls @ 200 mls/hr 07/25/21 13:07 07/28/21 14:00 Chloride IV 08/24/21 13:06 200 mls/hr Q4H PRN PRN Administration UNCONTROLLED NAUSEA Sodium Chloride 1,000 mls @ 200 mls/hr 07/25/21 13:15 07/28/21 16:18 Sodium Chloride 0.9% 1000 Ml IV 08/24/21 13:14 100 mls/hr .Q5H NISSA Administration Insulin Human Lispro 0 unit 07/26/21 15:28 Insulin Lispro 1 Unit SQ 08/25/21 15:27 UD PRN HYPERGLYCEMIA Lisinopril 10 mg 07/28/21 10:00 07/28/21 08:54 Lisinopril 10 Mg Tablet PO 08/27/21 09:59 10 mg DAILY NISSA Administration Metoprolol Tartrate 50 mg 07/25/21 22:00 07/27/21 22:19 Metoprolol Tartrate 50 Mg Tablet PO 08/24/21 21:59 50 mg HS NISSA Administration Ondansetron HCl 4 mg 07/25/21 12:29 07/26/21 23:56 Ondansetron Hcl 4 Mg/2 Ml Vial IV 08/24/21 12:28 4 mg Q6H PRN PRN Administration NAUSEA/VOMITING Discontinued Medications Generic Name Dose Route Start Last Admin Trade Name Freq PRN Reason Stop Dose Admin Al Hydrox/Mg Hydrox/Simethicone 30 ml 07/28/21 13:50 Mag Hydrox/Al Hydrox/Simeth 30 Ml Udcup .ROUTE 07/28/21 13:51 .STK-MED ONE Albuterol Sulfate 2 puff 07/26/21 13:04 Albuterol Common Canister Inhaler 08/25/21 13:03 Q4HPRN PRN cough or wheeze Albuterol/Ipratropium 3 ml 07/25/21 12:29 Ipratropium/Albuterol Sulfate 3 Ml Ampul.Neb 08/24/21 12:28 Q4HPRN PRN SHORTNESS OF BREATH/WHEEZING Sodium Chloride 1,000 mls @ 999 mls/hr 07/25/21 08:49 07/25/21 10:28 Sodium Chloride 0.9% 1000 Ml IV 07/25/21 09:49 Infused .Q1H1M STA Infusion Sodium Chloride Confirm 07/25/21 09:23 Sodium Chloride 0.9% 1000 Ml Administered 07/25/21 09:24 Dose 1,000 mls @ ud .ROUTE .STK-MED ONE Insulin Human Regular 100 unit 100 mls @ 5.22 mls/hr 07/25/21 09:37 07/26/21 11:08 / Sodium Chloride IV 08/24/21 09:36 Infused .[id number] PRN Titration DKA/HYPERGLYCEMIA Protocol 0.1 UNIT/KG/HR Sodium Chloride 1,000 mls @ 999 mls/hr 07/25/21 10:28 07/25/21 10:29 Sodium Chloride 0.9% 1000 Ml IV 07/25/21 11:28 999 mls/hr .Q1H1M STA Administration Sodium Chloride Confirm 07/25/21 10:26 Sodium Chloride 0.9% 1000 Ml Administered 07/25/21 10:27 Dose 1,000 mls @ ud .ROUTE .STK-MED ONE Potassium Chloride/Dextrose/Sod Cl 1,000 mls @ 150 mls/hr 07/25/21 13:30 07/26/21 11:07 D5w/0.45ns W/ 20meq Kcl 1000 Ml IV 08/24/21 13:29 Not Given .Q6H40M NISSA Potassium Chloride 20 meq in 100 mls @ 50 mls/hr 07/27/21 13:45 07/27/21 15:37 Potassium Chloride 20 Meq In Water 100ml IV 07/27/21 17:44 50 mls/hr Q2H NISSA Administration Insulin Human Regular 5 unit 07/25/21 09:37 07/25/21 09:45 Insulin Regular, Human 1 Unit IV 07/25/21 09:38 5 unit STAT ONE Administration Insulin Human Regular Confirm 07/25/21 09:39 Insulin Regular, Human 1 Unit Administered 07/25/21 09:40 Dose 1 unit .ROUTE .STK-MED ONE Insulin Human Regular Confirm 07/25/21 09:42 Insulin Regular, Human 1 Unit Administered 07/25/21 09:43 Dose 4 unit .ROUTE .STK-MED ONE Lidocaine HCl 20 ml 07/28/21 13:50 Lidocaine Hcl 20 Ml Cup .ROUTE 07/28/21 13:51 .STK-MED ONE Magnesium Hydroxide 45 ml 07/28/21 14:00 07/28/21 13:57 Mag Hydrx/Alum Hyd/Simeth/Lido 45 Ml Bottle PO 07/28/21 14:01 45 ml STAT ONE Administration Ondansetron HCl Confirm 07/25/21 08:55 Zofran 4 Mg/Udtablet Orally Disintegrating Administered 07/25/21 08:56 Dose 4 mg .ROUTE .STK-MED ONE Ondansetron HCl Confirm 07/25/21 09:23 Ondansetron Hcl 4 Mg/2 Ml Vial Administered 07/25/21 09:24 Dose 4 mg .ROUTE .STK-MED ONE Ondansetron HCl 4 mg 07/25/21 09:28 07/25/21 09:29 Zofran 4 Mg/Udtablet Orally Disintegrating PO 07/25/21 09:29 4 mg STAT ONE Administration Potassium Bicarbonate 25 meq 07/28/21 08:41 07/28/21 09:57 Potassium Bicarbonate 25 Meq Tab PO 07/28/21 08:42 25 meq STAT ONE Administration Intake & Output (Last 24 hours) 07/26/21 07/27/21 07/28/21 07/29/21 11:59 11:59 11:59 11:59 Intake Total 3006 3214 3165 240 Output Total 450 Balance 2626 3214 3165 240 Weight 52.4 kg 53.2 kg 51.7 kg Laboratory Results (Last 24 hours) 07/28/21 07/28/21 07/28/21 15:34 11:32 08:31 WBC RBC Hgb Hct MCV MCH MCHC RDW Plt Count MPV Sodium Potassium Chloride Carbon Dioxide Anion Gap BUN Creatinine Estimated GFR Glucose POC Glucometer 251 H 276 H 121 H Calcium Total Bilirubin AST ALT Alkaline Phosphatase Serum Total Protein Albumin 07/28/21 07/28/21 07/28/21 07:32 04:38 04:38 WBC 7.9 RBC 4.54 Hgb 14.6 Hct 43.2 MCV 95.2 MCH 32.2 H MCHC 33.8 RDW 14.1 H Plt Count 252 MPV 8.5 Sodium 138 Potassium 3.3 L Chloride 103 Carbon Dioxide 29 Anion Gap 9.5 BUN 9 Creatinine 0.61 Estimated GFR > 60.0 Glucose 75 POC Glucometer 54 L Calcium 8.6 Total Bilirubin 0.70 AST 24 ALT 14 Alkaline Phosphatase 78 Serum Total Protein 6.0 L Albumin 3.1 L 07/27/21 07/27/21 21:14 19:40 WBC RBC Hgb Hct MCV MCH MCHC RDW Plt Count MPV Sodium Potassium 3.8 Chloride Carbon Dioxide Anion Gap BUN Creatinine Estimated GFR Glucose POC Glucometer 160 H Calcium Total Bilirubin AST ALT Alkaline Phosphatase Serum Total Protein Albumin Orders (Last 24 hours) Category Date Time Status Consistent Carbohydrate Diet 1800 Calorie Diet 07/28/21 Breakfast Active CBC AM.LAB Lab 07/28/21 04:38 Completed CMP AM.LAB Lab 07/28/21 04:38 Completed POCT GLUCOSE Stat Lab 07/27/21 21:14 Completed POCT GLUCOSE Stat Lab 07/28/21 07:32 Completed POCT GLUCOSE Stat Lab 07/28/21 08:31 Completed POCT GLUCOSE Stat Lab 07/28/21 11:32 Completed POCT GLUCOSE Stat Lab 07/28/21 15:34 Completed Potassium Urgent Lab 07/27/21 19:40 Completed Lidocaine HCl 2% Viscous [Xylocaine Viscous 2% 20 ml Med 07/28/21 13:50 Discontinued Cup] 20 ml .ROUTE .STK-MED ONE Lisinopril 10 mg [Zestril 10 MG] Med 07/28/21 10:00 Active 10 mg PO DAILY Mag Hydrox/Al Hydrox/Simeth [Maalox Es 30 ml Unit Med 07/28/21 13:50 Discontinued Dose] 30 ml .ROUTE .STK-MED ONE Mag Hydrx/Alum Hyd/Simeth/Lido [GI COCKTAIL 45 ML ( Med 07/28/21 14:00 Discontinued Maalox/Lidocaine)] 45 ml PO STAT ONE Potassium Bicarbonate 25 MEQ [K-Lyte 25 Meq] Med 07/28/21 08:41 Discontinued 25 meq PO STAT ONE Patient Care Notes (Last 24 hours) 07/28/21 13:46 Nursing Note by Charla Hogan [employer]CROBIOLOGICAL LAB TECHNICIAN ROUNDED WITH DR ARIAS. PT REQUESTED GI COCKTAIL D/T NAUSEA. HE ORDERED X 1. THEN INCREASE IV FLUIDS TO 200ML/HR, KEEP OVERNIGHT, AUGUST D/C HOME TOMORROW. KEEP DIET FULL LIQUID. Initialized on 07/28/21 13:46 - END OF NOTE 07/28/21 11:43 Case Management Note by Arianna Baker REVIEWED CHART- NO NEW NEEDS IDENTIFIED AT THIS TIME FOR DC. PATIENT TO DC HOME TO HER PRIOR LEVEL OF FUNCTIONING AT TIME OF DC. Initialized on 07/28/21 11:43 - END OF NOTE Code(s): E11.10 - TYPE 2 DIABETES MELLITUS WITH KETOACIDOSIS WITHOUT COMA (2) Peripheral vascular disease due to secondary diabetes Current Visit: Yes Status: Acute Code(s): E13.51 - OTH DIABETES W DIABETIC PERIPHERAL ANGIOPATHY W/O GANGRENE (3) Weakness Current Visit: No Status: Acute Code(s): R53.1 - WEAKNESS
[2021-07-28] MEDS: XANAX 1 MG PO SCH (21:12)
[2021-07-28] MEDS: Lopressor 50 MG PO SCH (21:13)
[2021-07-29] MEDS: Sodium Chloride 0.9% 1000 ML 1,000 ML IV SCH ×2 (02:45→07:37)
[2021-07-29 03:43] LABS: Appearance CLEAR (CLEAR); Bilirubin NEGATIVE (NEGATIVE); Dipstick done @ ? MAIN LAB; Glucose NEGATIVE (NEGATIVE); Ketones NEGATIVE (NEGATIVE); Nitrite NEGATIVE (NEGATIVE); Protein,Urine Dip NEGATIVE (Negative); RBC TRACE-INTACT Ery/ul (0-5); Specific Gravity 1.015 (1.005-1.025); Urobilinogen 0.2 mg/dL (0-1)
[2021-07-29 03:45] LABS: Urine Cultured Indicated? NO
--- NOTE | 2021-07-29 05:32 | PCM.NOTE ---
Date and Time: 07/29/21530 Subjective Assessment: doing better - Review of Systems Constitutional: No Fever, No Chills Eyes: No Symptoms Ears, Nose, & Throat: No Symptoms Respiratory: No Cough, No Short Of Breath Cardiac: No Chest Pain, No Edema, No Syncope Abdominal/Gastrointestinal: No Abdominal Pain, No Nausea, No Vomiting, No Diarrhea Genitourinary Symptoms: No Dysuria Musculoskeletal: No Back Pain, No Neck Pain Skin: No Rash Neurological: No Dizziness, No Focal Weakness, No Sensory Changes Psychological: No Symptoms Endocrine: No Symptoms Hematologic/Lymphatic: No Symptoms Immunological/Allergic: No Symptoms Objective Exam General Appearance: no apparent distress, alert Neurologic Exam: alert, oriented x 3, cooperative, normal mood/affect, nml cerebellar function, sensation nml, No motor deficits Skin Exam: normal color, warm, dry Eye Exam: PERRL, EOMI, eyes nml inspection Ears, Nose, Throat Exam: normal ENT inspection, pharynx normal, moist mucous membranes Neck Exam: normal inspection, non-tender, supple, full range of motion Respiratory Exam: normal breath sounds, lungs clear, No respiratory distress Cardiovascular Exam: regular rate/rhythm, normal heart sounds Gastrointestinal/Abdomen Exam: soft, No tenderness, No mass Extremity Exam: normal inspection, normal range of motion Back Exam: normal inspection, normal range of motion, No CVA tenderness, No vertebral tenderness Pelvic Exam: deferred Rectal Exam: deferred OBJECTIVE DATA Vital Signs: Vital Signs - 24 hr Temp Pulse Resp BP Pulse Ox 07/29/21 04:10 97.9 F 101 H 19 145/82 95 07/29/21 03:56 16 07/29/21 00:00 98.3 F 97 H 18 156/86 95 07/28/21 20:00 98.1 F 105 H 21 134/76 95 07/28/21 16:00 98.6 F 114 H 20 156/81 93 L 07/28/21 12:00 98.0 F 122 H 21 165/96 96 07/28/21 08:00 97.7 F 110 H 26 H 174/103 94 L Pain Assessment - Last Documented Pain Intensity 0 Intake and Output: Intake & Output 07/26/21 07/27/21 07/28/21 07/29/21 11:59 11:59 11:59 11:59 Intake Total 3076 3214 3165 4411 Output Total 450 500 Balance 2626 5014 6782 7923 Weight 52.4 kg 53.2 kg 51.7 kg Lab Results: Lab Results-Last 24 Hours 07/28/21 07/28/21 07/28/21 Range/Units 07:32 08:31 11:32 POC Glucometer 54 L 121 H 276 H (74 to 106) mg/dL Urinalys Dipstick Clnc Urine Color (YELLOW) Urine Appearance (CLEAR) Urine pH (5-6) Ur Specific [place] (1.005-1.025) POC Urine Protein Conf (Negative) Urine Ketones (NEGATIVE) Urine Nitrite (NEGATIVE) Urine Bilirubin (NEGATIVE) Urine Urobilinogen (0-1) mg/dL Urine Leukocytes (NEGATIVE) Urine WBC (Auto) (0-5) /HPF Urine RBC (Auto) (0-2) /HPF U Epithel Cells (Auto) (FEW) /HPF Urine Bacteria (Auto) (NEGATIVE) /HPF Urine RBC (0-5) Tato/ul Ur Culture Indicated? Urine Glucose (NEGATIVE) mg/dL 07/28/21 07/28/21 07/29/21 Range/Units 15:34 21:16 02:00 POC Glucometer 251 H 104 (74 to 106) mg/dL Urinalys Dipstick Clnc MAIN LAB Urine Color YELLOW (YELLOW) Urine Appearance CLEAR (CLEAR) Urine pH 7.0 (5-6) Ur Specific [place] 1.015 (1.005-1.025) POC Urine Protein Conf NEGATIVE (Negative) Urine Ketones NEGATIVE (NEGATIVE) Urine Nitrite NEGATIVE (NEGATIVE) Urine Bilirubin NEGATIVE (NEGATIVE) Urine Urobilinogen 0.2 (0-1) mg/dL Urine Leukocytes NEGATIVE (NEGATIVE) Urine WBC (Auto) NONE (0-5) /HPF Urine RBC (Auto) NONE (0-2) /HPF U Epithel Cells (Auto) NONE (FEW) /HPF Urine Bacteria (Auto) NONE (NEGATIVE) /HPF Urine RBC TRACE-INTACT (0-5) Tato/ul Ur Culture Indicated? NO Urine Glucose NEGATIVE (NEGATIVE) mg/dL Multi-Disciplinary Progress Notes: Multi-Disciplinary Progress Notes 07/28/21 11:43 Case Management Note by Arianna Baker REVIEWED CHART- NO NEW NEEDS IDENTIFIED AT THIS TIME FOR DC. PATIENT TO DC HOME TO HER PRIOR LEVEL OF FUNCTIONING AT TIME OF DC. Initialized on 07/28/21 11:43 - END OF NOTE Assessment/Plan (1) DKA (diabetic ketoacidosis) Current Visit: Yes Status: Resolved Qualifiers: Diabetes mellitus type: type 1 Diabetes mellitus complication detail: without coma Qualified Code(s): E10.10 - Type 1 diabetes mellitus with ketoacidosis without coma Code(s): E11.10 - TYPE 2 DIABETES MELLITUS WITH KETOACIDOSIS WITHOUT COMA (2) Peripheral vascular disease due to secondary diabetes Current Visit: Yes Status: Acute Code(s): E13.51 - OTH DIABETES W DIABETIC PERIPHERAL ANGIOPATHY W/O GANGRENE (3) Weakness Current Visit: No Status: Acute Code(s): R53.1 - WEAKNESS
[2021-07-29 07:55] VITALS: BP 143/93; PULSE 114; O2SAT 94
[2021-07-29] MEDS: Zestril 10 MG PO SCH (09:02)
[2021-07-29] MEDS: ATARAX 25 MG PO SCH (09:02)
[2021-07-29] MEDS: Pletal 100 MG PO SCH (09:02)
--- NOTE | 2021-07-29 13:32 | PCM.DS ---
Discharge Summary Date of Admission: 07/25/21 12:25 Admitting Physician: COLBY EDMOND Primary Care Provider: JUANA,LYUDMILA Allergies Allergies orphenadrine citrate [From Norflex] Allergy (Intermediate, Verified 07/25/21 08:44) severe vomiting adhesive tape Allergy (Verified 07/25/21 08:44) hydrocodone bitartrate [From Immaculata] Adverse Reaction (Mild, Verified 07/25/21 08:44) nausea vomiting levofloxacin [From Levaquin] Adverse Reaction (Mild, Verified 07/25/21 08:44) Nausea and Vomiting Hospital Summary - Hospital Course Hospital Course: Chief Complaint Diagnosis weakness and lethargy for 3-4 days Allergies Allergy/AdvReac Type Severity Reaction Status Date / Time orphenadrine citrate Allergy Intermediate Verified 07/25/21 08:44 [From Norflex] adhesive tape Allergy Verified 07/25/21 08:44 hydrocodone bitartrate AdvReac Mild Verified 07/25/21 08:44 [From Immaculata] levofloxacin [From Levaquin] AdvReac Mild Nausea and Verified 07/25/21 08:44 Vomiting Vital Signs (Last 24 hours) Temp Pulse Resp BP Pulse Ox 07/29/21 07:54 96.2 F 114 H 16 143/93 94 L 07/29/21 04:10 97.9 F 101 H 19 145/82 95 07/29/21 03:56 16 07/29/21 00:00 98.3 F 97 H 18 156/86 95 07/28/21 20:00 98.1 F 105 H 21 134/76 95 07/28/21 16:00 98.6 F 114 H 20 156/81 93 L Home Medications Medication Instructions Recorded Confirmed Last Taken Type Cefuroxime Axetil [Cefuroxime] 500 mg PO Q12H 07/25/21 07/25/21 Unknown History Hydroxyzine HCl 25 mg [Atarax 25 mg PO BID 07/25/21 07/25/21 Unknown History 25 mg] cilostazoL [Cilostazol] 50 mg PO BID 07/25/21 07/25/21 Unknown History Lisinopril 10 mg [Zestril 10 10 mg PO DAILY 30 Days #30 tablet 07/29/21 Unknown Rx MG] Current Medications Discontinued Medications Generic Name Dose Route Start Last Admin Trade Name Freq PRN Reason Stop Dose Admin Al Hydrox/Mg Hydrox/Simethicone 30 ml 07/28/21 13:50 Mag Hydrox/Al Hydrox/Simeth 30 Ml Udcup .ROUTE 07/28/21 13:51 .STK-MED ONE Albuterol Sulfate 2 puff 07/26/21 13:04 Albuterol Common Canister Inhaler 08/25/21 13:03 Q4HPRN PRN cough or wheeze Albuterol/Ipratropium 3 ml 07/25/21 12:29 Ipratropium/Albuterol Sulfate 3 Ml Ampul.Neb 08/24/21 12:28 Q4HPRN PRN SHORTNESS OF BREATH/WHEEZING Alprazolam 1 mg 07/25/21 22:00 07/28/21 21:12 Alprazolam 1 Mg Tablet PO 08/24/21 21:59 1 mg HS NISSA Administration Cilostazol 50 mg 07/25/21 22:00 07/29/21 09:02 Cilostazol 100 Mg Tablet PO 08/24/21 21:59 50 mg BID NISSA Administration Hydroxyzine HCl 25 mg 07/25/21 22:00 07/29/21 09:02 Hydroxyzine Hcl 25 Mg Tablet PO 08/24/21 21:59 25 mg BID NISSA Administration Sodium Chloride 1,000 mls @ 999 mls/hr 07/25/21 08:49 07/25/21 10:28 Sodium Chloride 0.9% 1000 Ml IV 07/25/21 09:49 Infused .Q1H1M STA Infusion Sodium Chloride Confirm 07/25/21 09:23 Sodium Chloride 0.9% 1000 Ml Administered 07/25/21 09:24 Dose 1,000 mls @ ud .ROUTE .STK-MED ONE Insulin Human Regular 100 unit 100 mls @ 5.22 mls/hr 07/25/21 09:37 07/26/21 11:08 / Sodium Chloride IV 08/24/21 09:36 Infused .[id number] PRN Titration DKA/HYPERGLYCEMIA Protocol 0.1 UNIT/KG/HR Sodium Chloride 1,000 mls @ 999 mls/hr 07/25/21 10:28 07/25/21 10:29 Sodium Chloride 0.9% 1000 Ml IV 07/25/21 11:28 999 mls/hr .Q1H1M STA Administration Sodium Chloride Confirm 07/25/21 10:26 Sodium Chloride 0.9% 1000 Ml Administered 07/25/21 10:27 Dose 1,000 mls @ ud .ROUTE .STK-MED ONE Promethazine HCl 25 mg/ Sodium 101 mls @ 200 mls/hr 07/25/21 13:07 07/28/21 21:14 Chloride IV 08/24/21 13:06 200 mls/hr Q4H PRN PRN Administration UNCONTROLLED NAUSEA Potassium Chloride/Dextrose/Sod Cl 1,000 mls @ 150 mls/hr 07/25/21 13:30 07/26/21 11:07 D5w/0.45ns W/ 20meq Kcl 1000 Ml IV 08/24/21 13:29 Not Given .Q6H40M NISSA Sodium Chloride 1,000 mls @ 200 mls/hr 07/25/21 13:15 07/29/21 07:37 Sodium Chloride 0.9% 1000 Ml IV 08/24/21 13:14 100 mls/hr .Q5H NISSA Administration Potassium Chloride 20 meq in 100 mls @ 50 mls/hr 07/27/21 13:45 07/27/21 15:37 Potassium Chloride 20 Meq In Water 100ml IV 07/27/21 17:44 50 mls/hr Q2H NISSA Administration Insulin Human Lispro 0 unit 07/26/21 15:28 Insulin Lispro 1 Unit SQ 08/25/21 15:27 UD PRN HYPERGLYCEMIA Insulin Human Regular 5 unit 07/25/21 09:37 07/25/21 09:45 Insulin Regular, Human 1 Unit IV 07/25/21 09:38 5 unit STAT ONE Administration Insulin Human Regular Confirm 07/25/21 09:39 Insulin Regular, Human 1 Unit Administered 07/25/21 09:40 Dose 1 unit .ROUTE .STK-MED ONE Insulin Human Regular Confirm 07/25/21 09:42 Insulin Regular, Human 1 Unit Administered 07/25/21 09:43 Dose 4 unit .ROUTE .STK-MED ONE Lidocaine HCl 20 ml 07/28/21 13:50 Lidocaine Hcl 20 Ml Cup .ROUTE 07/28/21 13:51 .STK-MED ONE Lisinopril 10 mg 07/28/21 10:00 07/29/21 09:02 Lisinopril 10 Mg Tablet PO 08/27/21 09:59 10 mg DAILY NISSA Administration Magnesium Hydroxide 45 ml 07/28/21 14:00 07/28/21 13:57 Mag Hydrx/Alum Hyd/Simeth/Lido 45 Ml Bottle PO 07/28/21 14:01 45 ml STAT ONE Administration Metoprolol Tartrate 50 mg 07/25/21 22:00 07/28/21 21:13 Metoprolol Tartrate 50 Mg Tablet PO 08/24/21 21:59 50 mg HS NISSA Administration Ondansetron HCl Confirm 07/25/21 08:55 Zofran 4 Mg/Udtablet Orally Disintegrating Administered 07/25/21 08:56 Dose 4 mg .ROUTE .STK-MED ONE Ondansetron HCl Confirm 07/25/21 09:23 Ondansetron Hcl 4 Mg/2 Ml Vial Administered 07/25/21 09:24 Dose 4 mg .ROUTE .STK-MED ONE Ondansetron HCl 4 mg 07/25/21 09:28 07/25/21 09:29 Zofran 4 Mg/Udtablet Orally Disintegrating PO 07/25/21 09:29 4 mg STAT ONE Administration Ondansetron HCl 4 mg 07/25/21 12:29 07/26/21 23:56 Ondansetron Hcl 4 Mg/2 Ml Vial IV 08/24/21 12:28 4 mg Q6H PRN PRN Administration NAUSEA/VOMITING Potassium Bicarbonate 25 meq 07/28/21 08:41 07/28/21 09:57 Potassium Bicarbonate 25 Meq Tab PO 07/28/21 08:42 25 meq STAT ONE Administration Intake & Output (Last 24 hours) 07/27/21 07/28/21 07/29/21 07/30/21 11:59 11:59 11:59 11:59 Intake Total 3214 3165 4411 Output Total 500 Balance 3214 3165 3911 Weight 53.2 kg 51.7 kg Laboratory Results (Last 24 hours) 07/29/21 07/29/21 07/29/21 08:14 07:34 07:30 POC Glucometer 105 45 L* 33 L* Urinalys Dipstick Clnc Urine Color Urine Appearance Urine pH Ur Specific [place] POC Urine Protein Conf Urine Ketones Urine Nitrite Urine Bilirubin Urine Urobilinogen Urine Leukocytes Urine WBC (Auto) Urine RBC (Auto) U Epithel Cells (Auto) Urine Bacteria (Auto) Urine RBC Ur Culture Indicated? Urine Glucose 07/29/21 07/28/21 07/28/21 02:00 21:16 15:34 POC Glucometer 104 251 H Urinalys Dipstick Clnc MAIN LAB Urine Color YELLOW Urine Appearance CLEAR Urine pH 7.0 Ur Specific [place] 1.015 POC Urine Protein Conf NEGATIVE Urine Ketones NEGATIVE Urine Nitrite NEGATIVE Urine Bilirubin NEGATIVE Urine Urobilinogen 0.2 Urine Leukocytes NEGATIVE Urine WBC (Auto) NONE Urine RBC (Auto) NONE U Epithel Cells (Auto) NONE Urine Bacteria (Auto) NONE Urine RBC TRACE-INTACT Ur Culture Indicated? NO Urine Glucose NEGATIVE Orders (Last 24 hours) Category Date Time Status Discharge Routine Discharge 07/29/21 09:00 Ordered POCT GLUCOSE Stat Lab 07/28/21 15:34 Completed POCT GLUCOSE Stat Lab 07/28/21 21:16 Completed POCT GLUCOSE Stat Lab 07/29/21 07:30 Completed POCT GLUCOSE Stat Lab 07/29/21 07:34 Completed POCT GLUCOSE Stat Lab 07/29/21 08:14 Completed Lidocaine HCl 2% Viscous [Xylocaine Viscous 2% 20 ml Med 07/28/21 13:50 Discontinued Cup] 20 ml .ROUTE .STK-MED ONE Mag Hydrox/Al Hydrox/Simeth [Maalox Es 30 ml Unit Med 07/28/21 13:50 Discontinued Dose] 30 ml .ROUTE .STK-MED ONE Mag Hydrx/Alum Hyd/Simeth/Lido [GI COCKTAIL 45 ML ( Med 07/28/21 14:00 Discontinued Maalox/Lidocaine)] 45 ml PO STAT ONE Patient Care Notes (Last 24 hours) 07/29/21 09:22 Case Management Note by Arianna Baker REVIEWED CHART- NO NEW NEEDS REGARDING DC AT THIS TIME. PATIENT TO DC HOME TO HER PRIOR LEVEL OF FUNCTIONING AT TIME OF DC Initialized on 07/29/21 09:22 - END OF NOTE 07/29/21 07:51 CONCRETE SMOOTHER Note by Aurora Collins This hand finisher checked pts sugar this am. Sugar was 33. Nurse made aware and rechecked with a different machine and got 45. pt given orange juice and breakfast brought down early. Will recheck sugar in half hr. Initialized on 07/29/21 07:51 - END OF NOTE 07/28/21 13:46 Nursing Note by Charla Hogan MULTIFOCAL BUTTON INSPECTOR ROUNDED WITH DR ARIAS. PT REQUESTED GI COCKTAIL D/T NAUSEA. HE ORDERED X 1. THEN INCREASE IV FLUIDS TO 200ML/HR, KEEP OVERNIGHT, AUGUST D/C HOME TOMORROW. KEEP DIET FULL LIQUID. Initialized on 07/28/21 13:46 - END OF NOTE - Vitals & Intake/Output Vital Signs: Vital Signs Temperature 96.2 F 07/29/21 07:54 Pulse Rate 114 H 07/29/21 07:54 Respiratory Rate 16 07/29/21 07:54 Blood Pressure 143/93 07/29/21 07:54 O2 Sat by Pulse Oximetry 94 L 07/29/21 07:54 Intake & Output: Intake & Output 07/27/21 07/28/21 07/29/21 07/30/21 11:59 11:59 11:59 11:59 Intake Total 3214 3165 4411 Output Total 500 Balance 3214 3165 3911 Weight 53.2 kg 51.7 kg - Lab Result Diagrams: 07/28/21 04:38 07/28/21 04:38 Lab Results-Last 24 Hrs: Lab Results-Last 24 Hours 07/28/21 07/28/21 07/29/21 Range/Units 15:34 21:16 02:00 POC Glucometer 251 H 104 (74 to 106) mg/dL Urinalys Dipstick Clnc MAIN LAB Urine Color YELLOW (YELLOW) Urine Appearance CLEAR (CLEAR) Urine pH 7.0 (5-6) Ur Specific [place] 1.015 (1.005-1.025) POC Urine Protein Conf NEGATIVE (Negative) Urine Ketones NEGATIVE (NEGATIVE) Urine Nitrite NEGATIVE (NEGATIVE) Urine Bilirubin NEGATIVE (NEGATIVE) Urine Urobilinogen 0.2 (0-1) mg/dL Urine Leukocytes NEGATIVE (NEGATIVE) Urine WBC (Auto) NONE (0-5) /HPF Urine RBC (Auto) NONE (0-2) /HPF U Epithel Cells (Auto) NONE (FEW) /HPF Urine Bacteria (Auto) NONE (NEGATIVE) /HPF Urine RBC TRACE-INTACT (0-5) Tato/ul Ur Culture Indicated? NO Urine Glucose NEGATIVE (NEGATIVE) mg/dL 07/29/21 07/29/21 07/29/21 Range/Units 07:30 07:34 08:14 POC Glucometer 33 L* 45 L* 105 (74 to 106) mg/dL Urinalys Dipstick Clnc Urine Color (YELLOW) Urine Appearance (CLEAR) Urine pH (5-6) Ur Specific [place] (1.005-1.025) POC Urine Protein Conf (Negative) Urine Ketones (NEGATIVE) Urine Nitrite (NEGATIVE) Urine Bilirubin (NEGATIVE) Urine Urobilinogen (0-1) mg/dL Urine Leukocytes (NEGATIVE) Urine WBC (Auto) (0-5) /HPF Urine RBC (Auto) (0-2) /HPF U Epithel Cells (Auto) (FEW) /HPF Urine Bacteria (Auto) (NEGATIVE) /HPF Urine RBC (0-5) Tato/ul Ur Culture Indicated? Urine Glucose (NEGATIVE) mg/dL Micro Results-Entire Visit: Microbiology 07/25/21 09:35 Blood Culture - Preliminary Blood NO GROWTH TO DATE 07/25/21 09:25 Blood Culture - Preliminary Blood NO GROWTH TO DATE Accuchecks Date 07/29/21 Date 07/29/21 Date 07/28/21 Time 08:18 Time 07:51 Time 15:35 - Procedures and Test Procedures and Tests throughout Hospitalization: Therapy Orders & Screens 07/25/21 14:29 OT Screen per Nursing Assess ONCE Comment: Protocol Order Physician Instructions: Greater than 3 points order OT Admission Screening Reason For Exam: Triggered on Admission Diagnosis: DKA Open Wound/Cellutlitis/Pressure Ulcers: Yes: L foot cellulitis Acute Fx/ORIF/Change in wt bearing status: No Severe MUSCULOSKELETAL pain: No ADL Dysfunction: No Acute CVA w/Hemiparesis/Hemiplegia: No Decreased Functional Mobility/Strength: No Sprain/Strain: No Acute Post-op Mobility Dysfunction: No Total Points: 5 PT Screen per Nursing Assess ONCE Comment: Protocol Order Physician Instructions: Greater than 3 points order PT Admission Screenin Reason For Exam: Triggered on Admission Diagnosis: DKA Open Wound/Cellutlitis/Pressure Ulcers: Yes: L foot cellulitis Acute Fx/ORIF/Change in wt bearing status: No Severe MUSCULOSKELETAL pain: No ADL Dysfunction: No Acute CVA w/Hemiparesis/Hemiplegia: No Decreased Functional Mobility/Strength: No Sprain/Strain: No Acute Post-op Mobility Dysfunction: No Total Points: 5 Smoking Cessation Education ONCE Comment: Diagnosis: DKA Smoking Status: Current every day smoker How long have you smoked: "47 YEARS" Have you smoked in the past 12 months: Yes Approximately how many cigarettes per day: 20 Do you dip or chew tobacco: No 07/25/21 16:03 Respiratory Therapy Assessment DAILY Comment: Diagnosis: DKA Discharge Exam General Appearance: no apparent distress, alert Neurologic Exam: alert, oriented x 3, cooperative, normal mood/affect, nml cerebellar function, sensation nml, No motor deficits Eye Exam: PERRL, EOMI, eyes nml inspection Ears, Nose, Throat Exam: normal ENT inspection, pharynx normal, moist mucous membranes Neck Exam: normal inspection, non-tender, supple, full range of motion Respiratory Exam: normal breath sounds, lungs clear, No respiratory distress Cardiovascular Exam: regular rate/rhythm, normal heart sounds Gastrointestinal/Abdomen Exam: soft, No tenderness, No mass Pelvic Exam: deferred Rectal Exam: deferred Back Exam: normal inspection, normal range of motion, No CVA tenderness, No vertebral tenderness Extremity Exam: normal inspection, normal range of motion Skin Exam: normal color, warm, dry Final Diagnosis/Problem List - Final Discharge Diagnosis/Problem (1) DKA (diabetic ketoacidosis) Status: Resolved Code(s): E11.10 - TYPE 2 DIABETES MELLITUS WITH KETOACIDOSIS WITHOUT COMA (2) Peripheral vascular disease due to secondary diabetes Status: Chronic Code(s): E13.51 - OTH DIABETES W DIABETIC PERIPHERAL ANGIOPATHY W/O GANGRENE (3) Weakness Status: Resolved Code(s): R53.1 - WEAKNESS - Discharge Discharge Date: 07/29/21 Disposition: Home, Self-Care Condition: Stable Prescriptions: New Lisinopril 10 mg [Zestril 10 MG] 10 mg PO DAILY 30 Days #30 tablet Continue Insulin Lispro [Humalog] 1 unit SQ UD Albuterol Sulfate [Albuterol Sulfate Hfa] 2 puff IH Q4-6HPRN PRN #1 [id number].[id number] PRN Reason: cough or wheeze Cyclobenzaprine HCl 10 mg [Cyclobenzaprine 10 MG] 10 mg PO QID ALPRAZolam 1 MG [Xanax 1 mg] 1 mg PO HS Metoprolol Tartrate 50 mg PO HS Promethazine HCl 25 mg [Phenergan 25 mg] 25 mg PO QID PRN PRN Reason: Nausea Hydroxyzine HCl 25 mg [Atarax 25 mg] 25 mg PO BID Cefuroxime Axetil [Cefuroxime] 500 mg PO Q12H cilostazoL [Cilostazol] 50 mg PO BID Instructions: Diabetic Ketoacidosis (DC) Follow up with: LYUDMILA ARIAS MD [Primary Care Provider] - 08/03/21 11:00 am (at [place]) Forms: Discharge Instructions, Work/School Release Form
== END 2021-07-29 09:39 | disposition home or self-care (01) | DRG 639 ==
LOC: ED 08:29 → ICU 12:25
PROVIDERS: ADMIT Family Medicine; ATTEND General Practice
DX: E11.10 Type 2 diabetes mellitus with ketoacidosis without coma (principal); R53.1 Weakness; I10 Essential (primary) hypertension; F41.9 Anxiety disorder, unspecified; I25.10 Atherosclerotic heart disease of native coronary artery without angina pectoris; E78.00 Pure hypercholesterolemia, unspecified; J44.9 Chronic obstructive pulmonary disease, unspecified; Z72.0 Tobacco use; Z79.899 Other long term (current) drug therapy; Z20.828 Contact with and (suspected) exposure to other viral communicable diseases
CPT/HCPCS: 0241U; 36000; 36415; 71045; 80048; 80053; 81015; 82805; 82947; 83036; 83605; 83690; 83735; 84132; 84134; 84484; 85025; 85027; 87040; 93005; 93041; 93925; 94760; 96360; 96361; 96374; 99285; 99291; J1815; J2405; J2550; J3480; Q0162; A9270-GY

== ENCOUNTER 2022-05-01 09:35 | Emergency (ER) | payer BC, OTHER ==
[2022-05-01] MEDS ORDERED: Sodium Chloride 0.9% 1000 ML 1,000 ML IV SCH (10:00)
--- NOTE | 2022-05-01 10:02 | ERPHSYRPT ---
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 She presents today with a 2-month history of head and chest congestion what she describes as a "wicked" cough and wheezing. She says this is been going on for 2 months and continues despite multiple rounds of steroids and multiple antibiotics. She is a smoker and has been for a long time smokes 1 pack/day. During our history taking she was of course encouraged to stop smoking. Activities at Onset: none Severity of Dyspnea-Max: moderate Severity of Dyspnea-Current: moderate Possible Cause: frequent episodes Modifying Factors: Improves With: albuterol nebulizer, coughing, exertion Associated Symptoms: cough, wheezing, productive cough Allergies/Adverse Reactions: orphenadrine citrate [From Norflex] Allergy (Intermediate, Verified 05/01/22 09:50) severe vomiting adhesive tape Allergy (Verified 05/01/22 09:50) hydrocodone bitartrate [From [place]] Adverse Reaction (Mild, Verified 05/01/22 09:50) nausea vomiting levofloxacin [From Levaquin] Adverse Reaction (Mild, Verified 05/01/22 09:50) Nausea and Vomiting Home Medications: Insulin Lispro [Humalog] 1 unit SQ UD 11/14/16 [History] Cyclobenzaprine HCl 10 mg [Cyclobenzaprine 10 MG] 10 mg PO QID PRN 02/13/19 [History] ALPRAZolam 1 MG [Xanax 1 mg] 1 mg PO HS 08/25/19 [History] Promethazine HCl 25 mg [Phenergan 25 mg] 25 mg PO QID PRN 07/17/21 [History] cilostazoL [Cilostazol] 50 mg PO BID 07/25/21 [History] Doxycycline Hyclate 100 mg [Vibramycin 100 MG] 1 cap PO BID 05/01/22 [History] Hx Tetanus, Diphtheria Vaccination/Date Given: Yes Hx Influenza Vaccination/Date Given: Yes Hx Pneumococcal Vaccination/Date Given: Yes Travel Risk - Vaccine Status Have you recieved a Covid-19 vaccination: Yes [employer]: Moderna - Vaccination Dates Date of 2cond Vaccination (if applicable): unknown - Review of Systems Constitutional: No Fever, No Chills Eyes: No Symptoms Ears, Nose, & Throat: No Symptoms Respiratory: Cough, Dyspnea, Wheezing Cardiac: No Chest Pain, No Edema, No Syncope Abdominal/Gastrointestinal: No Abdominal Pain, No Nausea, No Vomiting, No Diarrhea Genitourinary Symptoms: No Dysuria Musculoskeletal: No Back Pain, No Neck Pain Skin: No Rash Neurological: No Dizziness, No Focal Weakness, No Sensory Changes Psychological: No Symptoms Endocrine: No Symptoms All Other Systems: Reviewed and Negative - Past Medical History Pertinent Past Medical History: Yes Neurological History: No Pertinent History ENT History: No Pertinent History Cardiac History: Coronary Artery Disease, High Cholesterol, Hypertension Respiratory History: Asthma, Bronchitis, COPD, Emphysema, Pneumonia Endocrine Medical History: Diabetes Type I, Hypoglycemia Musculoskeletal History: Fractures GI Medical History: GERD History: Renal Disease Psycho-Social History: Anxiety, Depression Female Reproductive Disorders: No Pertinent History Other Medical History: Previous R 3rd left leg fx many years ago,rt wrist fx with cast - Past Surgical History Past Surgical History: Yes Neuro Surgical History: No Pertinent History Cardiac: Cardiac Catheterization, Cardiac Stent Respiratory: No Pertinent History Gastrointestinal: Cholecystectomy Genitourinary: No Pertinent History Musculoskeletal: Other Female Surgical History: Tubal Ligation Other Surgical History: BUNONECTOMY. BACK SURGERY X2, - Social History Smoking Status: Current every day smoker How long have you smoked: 30 YEARS Exposure to second hand smoke: Yes Alcohol Use: None Drug Use: none Patient Lives Alone: No Significant Family History: heart disease, diabetes, hypertension - Nursing Vital Signs Nursing Vital Signs: Initial Vital Signs Temperature 98 F 05/01/22 09:53 Pulse Rate 105 H 05/01/22 09:53 Respiratory Rate 16 05/01/22 09:53 Blood Pressure 116/93 05/01/22 09:53 O2 Sat by Pulse Oximetry 95 05/01/22 09:53 Pain Scale Pain Intensity 0 - Physical Exam General Appearance: mild distress Eye Exam: PERRL/EOMI Ears, Nose, Throat Exam: hearing grossly normal, normal ENT inspection Neck Exam: normal inspection, supple Respiratory Exam: airway intact, diminished breath sounds, crackles/rales, rhonchi, wheezing Cardiovascular/Chest Exam: normal heart sounds, regular rate/rhythm Abdominal/Gastrointestinal Exam: soft, No tenderness, No distention, No mass Extremity Exam: non-tender, normal range of motion, normal inspection, no calf tenderness, no pedal edema Neurologic Exam: alert, oriented x 3, cooperative, collet maker II-XII nml as tested, sensation nml, No motor deficits Skin Exam: normal color, warm, No dry SpO2 Interpretation: normal SpO2: 96 O2 Delivery: Room Air - Course Nursing assessment & vital signs reviewed: Yes EKG Interpreted by Me: RATE ([id number]), Right [place] Deviation, NORMAL INTERVALS, NORMAL QRS, Non-specific ST Changes - CT Exams Chest CT Interpretation: Tele-radiologist Report, Other (Report shows a micro lobulated 13 x 12 mm noncalcified pulmonary nodule within the left lower lobe parison study. There is also minimal groundglass opacities in the left lower lobe.) Ordered Tests: Active Orders 24 hr Category Date Time Status EKG-ER Only STAT Care 05/01/22 09:55 Active IV Insertion STAT Care 05/01/22 09:55 Active CHEST WITH CONTRAST [CT] Stat Exams 05/01/22 09:56 Taken BLOOD CULTURE Stat Lab 05/01/22 10:31 Received CBC W DIFF Stat Lab 05/01/22 10:18 Completed CMP Stat Lab 05/01/22 10:18 Completed Lactic Acid Stat Lab 05/01/22 10:20 Completed PROCALCITONIN Stat Lab 05/01/22 10:18 Completed TROPONIN Q4H Lab 05/01/22 10:18 Completed TROPONIN Q4H Lab 05/01/22 14:00 Ordered TROPONIN Q4H Lab 05/01/22 18:00 Ordered TROPONIN Q4H Lab 05/01/22 22:00 Ordered UA W/RFX CULTURE Stat Lab 05/01/22 Ordered Medication Summary Generic Name Dose Route Start Last Admin Trade Name Freq PRN Reason Stop Dose Admin Sodium Chloride 1,000 mls @ 100 mls/hr 05/01/22 10:00 05/01/22 10:23 Sodium Chloride 0.9% 1000 Ml IV 05/31/22 09:59 100 mls/hr .Q10H NISSA Administration Discontinued Medications Generic Name Dose Route Start Last Admin Trade Name Freq PRN Reason Stop Dose Admin Albuterol Sulfate 2.5 mg 05/01/22 10:06 05/01/22 10:15 Albuterol Sulfate 2.5 Mg/3 Ml Neb IH 05/01/22 10:07 2.5 mg STAT ONE Administration Albuterol Sulfate Confirm 05/01/22 10:06 Albuterol Sulfate 2.5 Mg/3 Ml Neb Administered 05/01/22 10:07 Dose 2.5 mg IH .STK-MED ONE Lab/Rad Data: Laboratory Result Diagrams 05/01/22 10:18 05/01/22 10:18 Laboratory Results 05/01/22 05/01/22 05/01/22 Range/Units 10:20 10:18 10:18 WBC (4.0-10.5) x10^3/uL RBC (4.1-5.4) x10^6/uL Hgb (12.0-16.0) g/dL Hct (35-47) % MCV (78-100) fL MCH (26-32) pg MCHC (32-36) g/dL RDW (11.5-14.0) % Plt Count (150-450) x10^3/uL MPV (7.5-11.0) fL Gran % (36.0-66.0) % Immature Gran % (Auto) (0.00-0.4) % Nucleat RBC Rel Count (0.00-0.1) % Eos # (Auto) (0-0.5) x10^3/uL Immature Gran # (Auto) (0.00-0.03) x10^3u/L Absolute Lymphs (auto) (1.0-4.6) x10^3/uL Absolute Monos (auto) (0.0-1.3) x10^3/uL Absolute Nucleated RBC (0.00-0.01) x10^3u/L Lymphocytes % (24.0-44.0) % Monocytes % (0.0-12.0) % Eosinophils % (0.00-5.0) % Basophils % (0.0-0.4) % Absolute Granulocytes (1.4-6.9) x10^3/uL Basophils # (0-0.4) x10^3/uL Sodium (137-145) mmol/L Potassium (3.5-5.1) mmol/L Chloride (98-107) mmol/L Carbon Dioxide (22-30) mmol/L Anion Gap (5-15) MEQ/L BUN (7-17) mg/dL Creatinine (0.52-1.04) mg/dL Estimated GFR ML/MIN Glucose (74-106) mg/dL Lactic Acid 1.5 (0.4-2.0) Calcium (8.4-10.2) mg/dL Total Bilirubin (0.2-1.3) mg/dL AST (14-36) U/L ALT (0-35) U/L Alkaline Phosphatase (38-126) U/L Troponin I < 0.012 (0.000-0.034) ng/mL Serum Total Protein (6.3-8.2) g/dL Albumin (3.5-5.0) g/dL Procalcitonin 0.072 (0.030-0.080) ng/mL Influenza Type A Ag (NEGATIVE) Influenza Type B Ag (NEGATIVE) RSV (PCR) (Negative) SARS-CoV-2 (PCR) (NEGATIVE) 05/01/22 05/01/22 05/01/22 Range/Units 10:18 10:18 10:10 WBC 9.0 (4.0-10.5) x10^3/uL RBC 4.96 (4.1-5.4) x10^6/uL Hgb 15.5 (12.0-16.0) g/dL Hct 47.1 H (35-47) % MCV 95.0 (78-100) fL MCH 31.3 (26-32) pg MCHC 32.9 (32-36) g/dL RDW 15.0 H (11.5-14.0) % Plt Count 373 (150-450) x10^3/uL MPV 8.9 (7.5-11.0) fL Gran % 57.0 (36.0-66.0) % Immature Gran % (Auto) 0.2 (0.00-0.4) % Nucleat RBC Rel Count 0.0 (0.00-0.1) % Eos # (Auto) 0.18 (0-0.5) x10^3/uL Immature Gran # (Auto) 0.02 (0.00-0.03) x10^3u/L Absolute Lymphs (auto) 3.05 (1.0-4.6) x10^3/uL Absolute Monos (auto) 0.58 (0.0-1.3) x10^3/uL Absolute Nucleated RBC 0.00 (0.00-0.01) x10^3u/L Lymphocytes % 33.8 (24.0-44.0) % Monocytes % 6.4 (0.0-12.0) % Eosinophils % 2.0 (0.00-5.0) % Basophils % 0.6 (0.0-0.4) % Absolute Granulocytes 5.15 (1.4-6.9) x10^3/uL Basophils # 0.05 (0-0.4) x10^3/uL Sodium 138 (137-145) mmol/L Potassium 4.3 (3.5-5.1) mmol/L Chloride 107 (98-107) mmol/L Carbon Dioxide 26 (22-30) mmol/L Anion Gap 9.8 (5-15) MEQ/L BUN 30 H (7-17) mg/dL Creatinine 0.88 (0.52-1.04) mg/dL Estimated GFR > 60.0 ML/MIN Glucose 289 H (74-106) mg/dL Lactic Acid (0.4-2.0) Calcium 9.5 (8.4-10.2) mg/dL Total Bilirubin 0.50 (0.2-1.3) mg/dL AST 27 (14-36) U/L ALT 29 (0-35) U/L Alkaline Phosphatase 152 H (38-126) U/L Troponin I (0.000-0.034) ng/mL Serum Total Protein 7.4 (6.3-8.2) g/dL Albumin 4.1 (3.5-5.0) g/dL Procalcitonin (0.030-0.080) ng/mL Influenza Type A Ag NEGATIVE (NEGATIVE) Influenza Type B Ag NEGATIVE (NEGATIVE) RSV (PCR) NEGATIVE (Negative) SARS-CoV-2 (PCR) NEGATIVE (NEGATIVE) - Progress Progress: unchanged Air Movement: fair Progress Note: 05/01/22 13:19 Findings were discussed with the patient and begin her she is knowledgeable and we agreed that a pulmonary consultation would be appropriate she will follow-up with her PCP to make arrangements for that. Blood Culture(s) Obtained: Yes Antibiotics given: Yes - Departure Departure Disposition: Home Clinical Impression: Pneumonitis, Pulmonary nodules Condition: Stable Critical Care Time: No Referrals: LYUDMILA ARIAS MD [Primary Care Provider] - Follow up/PCP as directed Instructions: Pneumonitis (DC) Prescriptions: clindamycin HCL [Cleocin HCl] 150 mg PO TID 10 Days #30 cap
[2022-05-01] MEDS ORDERED: PROVENTIL 2.5 MG/3 ML NEB IH ONE ×2 (10:06)
[2022-05-01] MEDS ORDERED: Sodium Chloride 0.9% 1000 ML 1,000 ML ONE (10:23)
[2022-05-01 10:40] LABS: Absolute Neutrophil Ct (ANC) 5.15 x10^3/uL (1.4-6.9); Basophil (Absolute #) 0.05 x10^3/uL (0-0.4); Eosinophil (Absolute #) 0.18 x10^3/uL (0-0.5); Hematocrit 47.1 % (35-47); Hemoglobin 15.5 g/dL (12.0-16.0); Lymphocyte (Absolute #) 3.05 x10^3/uL (1.0-4.6); Lymphocytes % 33.8 % (24.0-44.0); Mean Corpuscular Hemoglobin 31.3 pg (26-32); Mean Corpuscular Hgb Concent. 32.9 g/dL (32-36); Mean Platelet Volume 8.9 fL (7.5-11.0); Monocyte (Absolute #) 0.58 x10^3/uL (0.0-1.3); Monocytes % 6.4 % (0.0-12.0); Platelet Count 373 x10^3/uL (150-450); Red Blood Count 4.96 x10^6/uL (4.1-5.4)
[2022-05-01 10:59] LABS: ALBUMIN 4.1 g/dL (3.5-5.0); ALKALINE PHOSPHATASE 152 U/L (38-126); ANION GAP 9.8 MEQ/L (5-15); BLOOD UREA NITROGEN 30 mg/dL (7-17); CHLORIDE 107 mmol/L (98-107); Calcium 9.5 mg/dL (8.4-10.2); Carbon Dioxide 26 mmol/L (22-30); Creatinine 1 0.88 mg/dL (0.52-1.04); EST GLOMERULAR FILTRATION RATE > 60.0 ML/MIN; Glucose 289 mg/dL (74-106); Potassium 4.3 mmol/L (3.5-5.1); SGOT/AST 27 U/L (14-36); SGPT/ALT 29 U/L (0-35); SODIUM 138 mmol/L (137-145); Total Protein 7.4 g/dL (6.3-8.2)
[2022-05-01 11:21] LABS: INFLUENZA A NEGATIVE (NEGATIVE); INFLUENZA B NEGATIVE (NEGATIVE); RESPIRATORY SYNCTIAL VIRUS NEGATIVE (Negative); SARS-CoV-2 Xpert Express NEGATIVE (NEGATIVE)
[2022-05-01 13:24] VITALS: BP 124/69; PULSE 64; O2SAT 98
--- NOTE | 2022-05-01 18:55 | XRAY ---
Indication: Chest pain and congestion. Multiple contiguous axial images obtained through the chest using 80 cc Isovue 370 contrast. Comparison: July 08, 2019 Study slightly degraded by respiration artifact. Lungs again demonstrates diffuse pulmonary emphysema, mild scattered fibrosis/scarring greatest in left upper lobe, small left upper lobe calcified granuloma, and tiny bilateral lower lobe subpleural noncalcified micronodule. Left lower lobe demonstrates new 1.3 x 1.2 cm noncalcified nodule. Medial to this nodule is new small patchy groundglass airspace disease. No infiltrate, consolidation, or effusion. Heart not enlarged again with coronary calcifications. Aorta again mildly arteriosclerotic without aneurysm/dissection. Stable left suprahilar calcified nodes. No pathologic mediastinal/hilar lymphadenopathy. Bony thorax intact. Limited upper abdomen again demonstrates splenic calcified granulomas, cholecystectomy, and biliary tree prominence. Impression: 1. New left lower lobe noncalcified nodule. Malignancy is of primary concern. PET/CT may yield further information. 2. New minimal patchy left lower lobe groundglass airspace disease. 3. Again chronic findings including diffuse pulmonary emphysema, scattered fibrosis/scarring, arteriosclerotic disease, and old granulomatous disease. Comment: Preliminary interpretation made by [facility]. No critical discrepancy.
== END 2022-05-01 13:33 | disposition home or self-care (01) ==
LOC: ED 09:35
DX: J18.9 Pneumonia, unspecified organism (principal); R91.8 Other nonspecific abnormal finding of lung field; R05.3 Chronic cough; E78.5 Hyperlipidemia, unspecified; I10 Essential (primary) hypertension; J43.9 Emphysema, unspecified; E10.9 Type 1 diabetes mellitus without complications; Z96.41 Presence of insulin pump (external) (internal); Z79.4 Long term (current) use of insulin; Z79.899 Other long term (current) drug therapy; Z72.0 Tobacco use
CPT/HCPCS: 0241U; 36000; 36415; 71260; 80053; 83605; 84145; 84484; 85025; 87040; 93005; 94640; 99284; J7609; A9270-GY

== ENCOUNTER 2022-07-13 02:42 | Emergency (ER) | payer BC ==
--- NOTE | 2022-07-13 03:04 | ERPHSYRPT ---
- History of Present Illness Time Seen by Provider: 07/13/22 03:02 Source: patient Exam Limitations: no limitations Physician History: Patient had a partial lobectomy of her left lung on 06/24 and is having difficulties w/ the wounds healing. The sutures from the chest tubes were removed yesterday and since then the patient has had severe pain and purulent drainage from the sites. She denies fevers, CP or SOB, but the pain she is experiencing is 8-10/10. She had some abx at home from a previous prescription that she decided to take today to see if this helped her. Timing/Duration: gradual onset Quality: painful Severity: severe Location: other (left chest wall) Possible Causes: other (surgical wound) Associated Symptoms: No difficulty breathing, No fever Allergies/Adverse Reactions: orphenadrine citrate [From Norflex] Allergy (Intermediate, Verified 07/13/22 03:06) severe vomiting adhesive tape Allergy (Verified 07/13/22 03:06) hydrocodone bitartrate [From [place]] Adverse Reaction (Mild, Verified 07/13/22 03:06) nausea vomiting levofloxacin [From Levaquin] Adverse Reaction (Mild, Verified 07/13/22 03:06) Nausea and Vomiting Home Medications: Insulin Lispro [Humalog] 1 unit SQ UD 11/14/16 [History] Cyclobenzaprine HCl 10 mg [Cyclobenzaprine 10 MG] 10 mg PO QID PRN 02/13/19 [History] Promethazine HCl 25 mg [Phenergan 25 mg] 25 mg PO QID PRN 07/17/21 [History] cilostazoL [Cilostazol] 50 mg PO BID 07/25/21 [History] Doxycycline Hyclate 100 mg [Vibramycin 100 MG] 1 cap PO BID 05/01/22 [History] PANTOPRAZOLE 40 mg Tablet [Protonix 40MG Tablet] 1 tab PO HS 07/13/22 [History] Hx Tetanus, Diphtheria Vaccination/Date Given: Yes Hx Influenza Vaccination/Date Given: Yes Hx Pneumococcal Vaccination/Date Given: Yes Travel Risk - Vaccine Status Have you recieved a Covid-19 vaccination: Yes [employer]: Moderna - Vaccination Dates Date of 2cond Vaccination (if applicable): unknown - Review of Systems Constitutional: Weakness, No Fever, No Chills Ears, Nose, & Throat: No Symptoms Respiratory: No Cough, No Dyspnea Cardiac: No Symptoms Abdominal/Gastrointestinal: No Symptoms Musculoskeletal: Other (left chest pain) Skin: Other (painful, draining incisions) Hematologic/Lymphatic: No Easy Bleeding, No Easy Bruising - Past Medical History Pertinent Past Medical History: Yes Neurological History: No Pertinent History ENT History: No Pertinent History Cardiac History: Coronary Artery Disease, High Cholesterol, Hypertension Respiratory History: Asthma, Bronchitis, COPD, Emphysema, Pneumonia Endocrine Medical History: Diabetes Type I, Hypoglycemia Musculoskeletal History: Fractures GI Medical History: GERD History: Renal Disease Psycho-Social History: Anxiety, Depression Female Reproductive Disorders: No Pertinent History Other Medical History: Previous R 3rd left leg fx many years ago,rt wrist fx with cast - Past Surgical History Past Surgical History: Yes Neuro Surgical History: No Pertinent History Cardiac: Cardiac Catheterization, Cardiac Stent Respiratory: No Pertinent History Gastrointestinal: Cholecystectomy Genitourinary: No Pertinent History Musculoskeletal: Other Female Surgical History: Tubal Ligation Other Surgical History: BUNONECTOMY. BACK SURGERY X2, - Social History Smoking Status: Current every day smoker How long have you smoked: 30 YEARS Exposure to second hand smoke: Yes Alcohol Use: None Drug Use: none Patient Lives Alone: No Significant Family History: heart disease, diabetes, hypertension - Nursing Vital Signs Nursing Vital Signs: Initial Vital Signs Temperature 97.5 F 07/13/22 02:49 Pulse Rate 82 07/13/22 02:49 Respiratory Rate 17 07/13/22 02:49 Blood Pressure 132/80 07/13/22 02:49 O2 Sat by Pulse Oximetry 99 07/13/22 02:49 Pain Scale Pain Intensity 7 - Physical Exam General Appearance: moderate distress, thin Respiratory Exam: chest tenderness, airway intact, diminished breath sounds, No respiratory distress Cardiovascular Exam: regular rate/rhythm, normal heart sounds, capillary refill <2 sec Gastrointestinal/Abdomen Exam: soft, normal bowel sounds, No tenderness, No guarding, No rebound Skin Exam: other ( anterior and posterior chest tube incisions open and draining purulent drainage, minimal erythema, TTP. larger incision granulation tissue present, approxamating well, no drainage expressed. ) SpO2 Interpretation: normal SpO2: 99 O2 Delivery: Room Air - Course Nursing assessment & vital signs reviewed: Yes EKG Interpreted by Me: RATE (85), Sinus Rhythm, NORMAL AXIS, NORMAL INTERVALS, NORMAL QRS, NORMAL ST-T - CT Exams Chest CT Interpretation: Tele-radiologist Report (+), Other (mod L pneumothorax, no focal abscess, infection w/in deep soft tissues, small L pleural effusion) Ordered Tests: Active Orders 24 hr Category Date Time Status Packing Attendant STAT Care 07/13/22 03:04 Active EKG-ER Only STAT Care 07/13/22 03:03 Active Pulse Oximetry (ED) STAT Care 07/13/22 03:04 Active CHEST WITHOUT CONTRAST [CT] Stat Exams 07/13/22 03:07 Ordered BLOOD CULTURE Stat Lab 07/13/22 04:13 Received CBC W DIFF Stat Lab 07/13/22 04:13 Completed CMP Stat Lab 07/13/22 04:13 Received Lactic Acid Stat Lab 07/13/22 04:07 Completed Medication Summary Discontinued Medications Generic Name Dose Route Start Last Admin Trade Name Freq PRN Reason Stop Dose Admin Hydromorphone HCl 2 mg 07/13/22 03:12 Hydromorphone Hcl 2 Mg Tablet PO 07/13/22 03:13 ONCE ONE Morphine Sulfate 2 mg 07/13/22 03:09 07/13/22 03:12 Morphine Sulfate 2 Mg/Ml Inj IV 07/13/22 03:10 2 mg STAT ONE Administration Morphine Sulfate Confirm 07/13/22 03:12 Morphine Sulfate 2 Mg/Ml Inj Administered 07/13/22 03:13 Dose 2 mg .ROUTE .STK-MED ONE Trimethoprim/Sulfamethoxazole 1 tab 07/13/22 03:10 07/13/22 03:21 Smz/Tmp Ds Tablet 1 Tablet PO 07/13/22 03:11 1 tab STAT STA Administration Trimethoprim/Sulfamethoxazole Confirm 07/13/22 03:20 Smz/Tmp Ds Tablet 1 Tablet Administered 07/13/22 03:21 Dose 1 tab PO .STK-MED ONE Lab/Rad Data: Laboratory Result Diagrams 07/13/22 04:13 Laboratory Results 07/13/22 07/13/22 Range/Units 04:13 04:07 WBC 7.7 (4.0-10.5) x10^3/uL RBC 3.83 L (4.1-5.4) x10^6/uL Hgb 11.9 L (12.0-16.0) g/dL Hct 37.3 (35-47) % MCV 97.4 (78-100) fL MCH 31.1 (26-32) pg MCHC 31.9 L (32-36) g/dL RDW 13.1 (11.5-14.0) % Plt Count 501 H (150-450) x10^3/uL MPV 8.4 (7.5-11.0) fL Gran % 42.8 (36.0-66.0) % Immature Gran % (Auto) 0.3 (0.00-0.4) % Nucleat RBC Rel Count 0.0 (0.00-0.1) % Eos # (Auto) 1.32 H (0-0.5) x10^3/uL Immature Gran # (Auto) 0.02 (0.00-0.03) x10^3u/L Absolute Lymphs (auto) 2.19 (1.0-4.6) x10^3/uL Absolute Monos (auto) 0.71 (0.0-1.3) x10^3/uL Absolute Nucleated RBC 0.00 (0.00-0.01) x10^3u/L Lymphocytes % 28.5 (24.0-44.0) % Monocytes % 9.2 (0.0-12.0) % Eosinophils % 17.2 H (0.00-5.0) % Basophils % 2.0 (0.0-0.4) % Absolute Granulocytes 3.30 (1.4-6.9) x10^3/uL Basophils # 0.15 (0-0.4) x10^3/uL Lactic Acid 1.3 (0.4-2.0) - Progress Progress Note: CT results received, paged Dr. Geller to discuss findings. These are normal postop findings after lobectomy. No focal abscess identified, but there was deep soft tissue infection noted on CT. Dr. Geller was ok to proceed w/ PO abx and he will f/u w/ patient on an outpatient basis. Pain improved, will send home w/ Bactrim DS and PO pain meds. Discussed with : Other (Dr. Geller) Will see patient in: office Counseled pt/family regarding: rad results Medical Desision Making - Discussion of managment Care discussed with:: specialist Reviewed:: Test results Agreed on:: Treatment plan, need for follow-up Will see patient: In office - Diagnostic Testing Diagnostic test were ordered, analyzed, and reviewed by me: Yes Radiological Interpretation: Reviewed by me, Discussed w/ radiologist, Teleradiologist Report - Risk of complications The pt has a mod risk of morbidity or mortality based on: Need for prescription drug management - Departure Departure Disposition: Home Clinical Impression: Soft tissue infection Condition: Good Critical Care Time: No Referrals: LYUDMILA ARIAS MD [Primary Care Provider] - Follow up/PCP as directed Instructions: Wound Care (DC) Prescriptions: Sulfamethoxazole/Trimethoprim [Bactrim Ds Tablet] 1 each PO BID 10 Days #20 tablet Tramadol HCl 50 mg [Ultram 50 mg] 50 mg PO Q6H PRN 7 Days #28 tablet PRN Reason: Severe Pain
[2022-07-13] MEDS ORDERED: MORPHINE SULFATE 2 MG INJ IV ONE (03:09)
[2022-07-13] MEDS ORDERED: BACTRIM DS TABLET PO STA (03:10)
[2022-07-13] MEDS ORDERED: DILAUDID 2 MG PO ONE (03:12)
[2022-07-13] MEDS ORDERED: MORPHINE SULFATE 2 MG INJ ONE (03:12)
[2022-07-13] MEDS ORDERED: BACTRIM DS TABLET PO ONE (03:20)
[2022-07-13 04:39] LABS: Basophil (Absolute #) 0.15 x10^3/uL (0-0.4); Eosinophil % 17.2 % (0.00-5.0); Eosinophil (Absolute #) 1.32 x10^3/uL (0-0.5); Hematocrit 37.3 % (35-47); Hemoglobin 11.9 g/dL (12.0-16.0); IMMATURE GRAN # 0.02 x10^3u/L (0.00-0.03); IMMATURE GRAN % 0.3 % (0.00-0.4); Lymphocyte (Absolute #) 2.19 x10^3/uL (1.0-4.6); Lymphocytes % 28.5 % (24.0-44.0); Mean Cell Volume 97.4 fL (78-100); Mean Corpuscular Hemoglobin 31.1 pg (26-32); Mean Corpuscular Hgb Concent. 31.9 g/dL (32-36); Mean Platelet Volume 8.4 fL (7.5-11.0); Monocyte (Absolute #) 0.71 x10^3/uL (0.0-1.3); Monocytes % 9.2 % (0.0-12.0); Neutrophil % 42.8 % (36.0-66.0); Platelet Count 501 x10^3/uL (150-450); Red Blood Count 3.83 x10^6/uL (4.1-5.4); Red Cell Distribution Width 13.1 % (11.5-14.0); White Blood Count 7.7 x10^3/uL (4.0-10.5)
[2022-07-13 04:53] LABS: BLOOD UREA NITROGEN 20 mg/dL (7-17); Glucose 265 mg/dL (74-106)
[2022-07-13 04:54] LABS: ALBUMIN 2.9 g/dL (3.5-5.0); CHLORIDE 102 mmol/L (98-107); Calcium 8.3 mg/dL (8.4-10.2); Carbon Dioxide 31 mmol/L (22-30); EST GLOMERULAR FILTRATION RATE > 60.0 ML/MIN; Potassium 4.1 mmol/L (3.5-5.1); SGOT/AST 65 U/L (14-36); SGPT/ALT 26 U/L (0-35); SODIUM 137 mmol/L (137-145); Total Protein 5.9 g/dL (6.3-8.2)
[2022-07-13 04:55] LABS: ALKALINE PHOSPHATASE 112 U/L (38-126)
[2022-07-13 05:07] VITALS: BP 135/85; PULSE 83; O2SAT 97
--- NOTE | 2022-07-13 08:59 | XRAY ---
Indication: Pain and infection. Status post left lower lobectomy with chest tube removal 1 week ago. Multiple contiguous axial images obtained through the chest without contrast. Comparison: May 01, 2022 New moderate left pneumothorax, approximately 50% with moderate effusion and minimal left lateral chest wall subcutaneous emphysema. Stable lingula/right lower lobe calcified granulomas and bilateral upper upper lobe fibrosis/scarring. Remaining visualized lungs again demonstrates pulmonary emphysema. Heart not enlarged again with coronary calcifications. New small pericardial effusion. Aorta again arteriosclerotic without aneurysm. No pathologic mediastinal lymphadenopathy. Bony thorax intact. Limited upper abdomen again demonstrates incidental splenic calcified granulomas, cholecystomy, and abnormal biliary tree distention. Impression: 1. New moderate left pneumothorax with moderate effusion and minimal left chest wall subcutaneous emphysema. 2. New small pericardial effusion better evaluated with echocardiogram if clinically warranted. 3. Again chronic findings including pulmonary emphysema, pulmonary fibrosis/scarring, arteriosclerotic disease, biliary tree distention, and old granulomatous disease. Comment: Preliminary interpretation made by [facility]. No critical discrepancy.
== END 2022-07-13 05:16 | disposition home or self-care (01) ==
LOC: ED 02:42
DX: T81.42XA Infection following a procedure, deep incisional surgical site, initial encounter (principal); E78.5 Hyperlipidemia, unspecified; I10 Essential (primary) hypertension; E10.9 Type 1 diabetes mellitus without complications; Z79.899 Other long term (current) drug therapy; Z72.0 Tobacco use
CPT/HCPCS: 36415; 71250; 80053; 83605; 85025; 87040; 87070; 93005; 94760; 96372; 99284; J2270; A9270-GY

== ENCOUNTER 2022-07-18 12:53 | Observation (INO) | payer BC ==
[2022-07-18] MEDS ORDERED: Sodium Chloride 0.9% 1000 ML 1,000 ML IV STA ×2 (12:56→13:34)
[2022-07-18] MEDS ORDERED: Sodium Chloride 0.9% 1000 ML 1,000 ML ONE ×3 (13:30→18:59)
[2022-07-18] MEDS ORDERED: HUMULIN R IV ONE (13:34)
[2022-07-18] MEDS ORDERED: Zofran 4 MG/2 ML VIAL IV ONE (13:34)
[2022-07-18] MEDS ORDERED: HUMULIN R 100 UNIT in Sodium Chloride 0.9% 100 ML IV PRN (13:34)
--- NOTE | 2022-07-18 13:34 | ERPHSYRPT ---
- History of Present Illness Time Seen by Provider: 07/18/22 13:15 Source: patient Exam Limitations: no limitations Patient Subjective Stated Complaint: Patient states "blood sugar, nausea, vomiting" Triage Nursing Assessment: Pt to room 6 via wheelchair with daughter at bedside. urine sample obtained. pt with increased respiratory rate and work of breathing. reports that she started feeling poorly approx 3hrs ago. dtr checked blood sugar and was >600, dtr administered 5units sq novolog. complained to dtr hard time breathing and nausea so was brought to ED Physician History: Patient is a 61-year-old white female who 3 weeks ago had a left lower lobe pneumectomy for lung cancer. She also about a week ago had a port placed by her surgeon in the right subclavicular area. She presents with the onset of nausea vomiting and shortness of breath this morning. She has a long history of diabetes and frequent episodes of DKA she is very uncomfortable right now with abdominal pain nausea and vomiting.She was seen in the ER about a week ago and was found to have a postop pneumo which was discussed with her surgeon. He felt this was normal for a postop course and he is to follow-up work-up as an outpatient but I understand he is out of town or unavailable this week. Timing/Duration: today Severity: moderate Associated Symptoms: nausea, vomiting, abdominal pain, shortness of breath Allergies/Adverse Reactions: orphenadrine citrate [From Norflex] Allergy (Intermediate, Verified 07/13/22 03:06) severe vomiting adhesive tape Allergy (Verified 07/13/22 03:06) hydrocodone bitartrate [From [place]] Adverse Reaction (Mild, Verified 07/18/22 13:22) nausea vomiting levofloxacin [From Levaquin] Adverse Reaction (Mild, Verified 07/13/22 03:06) Nausea and Vomiting Home Medications: Insulin Lispro [Humalog] 1 unit SQ UD 11/14/16 [History] Cyclobenzaprine HCl 10 mg [Cyclobenzaprine 10 MG] 10 mg PO QID PRN 02/13/19 [History] Promethazine HCl 25 mg [Phenergan 25 mg] 25 mg PO QID PRN 07/17/21 [History] cilostazoL [Cilostazol] 50 mg PO BID 07/25/21 [History] PANTOPRAZOLE 40 mg Tablet [Protonix 40MG Tablet] 1 tab PO HS 07/13/22 [History] Hx Tetanus, Diphtheria Vaccination/Date Given: (unknown) Hx Influenza Vaccination/Date Given: Yes (fall 2021) Hx Pneumococcal Vaccination/Date Given: Yes (unknown) Immunizations Up to Date: No Travel Risk - International Travel Have you traveled outside of the country in past 3 weeks: No - Coronavirus Screening Are you exhibiting any of the following symptoms?: Yes Symptoms: Cough: New Onset, Shortness of Breath, Vomiting/Diarrhea, Headaches/Body Aches/Fatigue Close contact with a COVID-19 positive Pt in past 14-21 Days: No - Vaccine Status Have you recieved a Covid-19 vaccination: Yes Professor Of Pathology: Moderna - Vaccination Dates Date of 2cond Vaccination (if applicable): 2021 - Review of Systems Constitutional: No Fever, No Chills Eyes: No Symptoms Ears, Nose, & Throat: No Symptoms Respiratory: Dyspnea, Dyspnea on Exertion (COTO), No Cough Cardiac: Palpitations, No Chest Pain, No Edema, No Syncope Abdominal/Gastrointestinal: Abdominal Pain, Nausea, Vomiting, No Diarrhea Genitourinary Symptoms: No Dysuria Musculoskeletal: No Back Pain, No Neck Pain Skin: Other (Healing incisions), No Rash Neurological: No Dizziness, No Focal Weakness, No Sensory Changes Psychological: No Symptoms Endocrine: No Symptoms All Other Systems: Reviewed and Negative - Past Medical History Pertinent Past Medical History: Yes Neurological History: No Pertinent History ENT History: No Pertinent History Cardiac History: Coronary Artery Disease, High Cholesterol, Hypertension Respiratory History: Asthma, Bronchitis, COPD, Emphysema, Lung Cancer, Pneumonia Endocrine Medical History: Diabetes Type I, Hypoglycemia Musculoskeletal History: Fractures GI Medical History: GERD History: Renal Disease Psycho-Social History: Anxiety, Depression Female Reproductive Disorders: No Pertinent History Other Medical History: Previous R 3rd left leg fx many years ago,rt wrist fx with cast - Past Surgical History Past Surgical History: Yes Neuro Surgical History: No Pertinent History Cardiac: Cardiac Catheterization, Cardiac Stent Respiratory: Lobectomy Gastrointestinal: Cholecystectomy Genitourinary: No Pertinent History Musculoskeletal: Other Female Surgical History: Tubal Ligation Other Surgical History: BUNONECTOMY. BACK SURGERY X2, right upper chest port placement. LL lung lobectomy - Social History Smoking Status: Current every day smoker How long have you smoked: 30 YEARS Exposure to second hand smoke: Yes Alcohol Use: None Drug Use: none Patient Lives Alone: No Significant Family History: heart disease, diabetes, hypertension - Nursing Vital Signs Nursing Vital Signs: Initial Vital Signs Temperature 97.6 F 07/18/22 13:01 Pulse Rate 133 H 07/18/22 13:01 Respiratory Rate 44 H 07/18/22 13:01 Blood Pressure 145/71 07/18/22 13:01 O2 Sat by Pulse Oximetry 100 07/18/22 13:01 Pain Scale Pain Intensity 0 - Physical Exam General Appearance: moderate distress, alert Eye Exam: PERRL/EOMI, eyes nml inspection Ears, Nose, Throat Exam: normal ENT inspection, TMs normal, pharynx normal, moist mucous membranes Neck Exam: normal inspection, non-tender, supple, full range of motion Respiratory Exam: normal breath sounds, lungs clear, No respiratory distress Cardiovascular Exam: regular rate/rhythm, normal heart sounds, normal peripheral pulses Gastrointestinal/Abdomen Exam: normal bowel sounds, tenderness, No mass, No guarding, No rebound Back Exam: normal inspection, normal range of motion, No CVA tenderness, No vertebral tenderness Extremity Exam: normal inspection, normal range of motion, pelvis stable Neurologic Exam: alert, oriented x 3, cooperative, normal mood/affect, nml cerebellar function, nml station & gait, sensation nml, No motor deficits Skin Exam: normal color, warm, dry, No rash Lymphatic Exam: No adenopathy SpO2: 100 - Course Nursing assessment & vital signs reviewed: Yes EKG Interpreted by Me: RATE (119), Sinus Tach, NORMAL AXIS, NORMAL INTERVALS, Non-specific ST Changes, Other (Biatrial enlargement) - Radiology Exams Chest X-ray Interpretation: Reviewed by me, Other (Left pneumothorax stable) Ordered Tests: Active Orders 24 hr Category Date Time Status EKG-ER Only STAT Care 07/18/22 12:56 Active IV Insertion STAT Care 07/18/22 12:56 Active POCT Glucose Check STAT Care 07/18/22 12:56 Active CHEST 1 VIEW (PORTABLE) Stat Exams 07/18/22 12:56 Completed BLOOD CULTURE Stat Lab 07/18/22 14:14 Received CBC W DIFF Stat Lab 07/18/22 01:25 Completed CMP Stat Lab 07/18/22 01:25 Completed Lactic Acid Stat Lab 07/18/22 15:51 Received Lactic Acid Urgent Lab 07/18/22 12:56 Completed MAGNESIUM Stat Lab 07/18/22 01:25 Completed Manual Differential NC Stat Lab 07/18/22 01:25 Completed POCT GLUCOSE Stat Lab 07/18/22 13:30 Received POCT GLUCOSE Stat Lab 07/18/22 13:31 Received POCT GLUCOSE Stat Lab 07/18/22 13:31 Received TROPONIN Q4H Lab 07/18/22 13:45 Completed TROPONIN Q4H Lab 07/18/22 17:45 Ordered TROPONIN Q4H Lab 07/18/22 21:45 Ordered UA W/RFX UR CULTURE Stat Lab 07/18/22 01:25 Completed VENOUS BLOOD GAS Stat Lab 07/18/22 13:44 Completed Medication Summary Generic Name Dose Route Start Last Admin Trade Name Freq PRN Reason Stop Dose Admin Insulin Human Regular 100 unit 100 mls @ 5.32 mls/hr 07/18/22 13:34 / Sodium Chloride IV 08/17/22 13:33 .[id number] PRN DKA/HYPERGLYCEMIA Protocol 0.1 UNIT/KG/HR Discontinued Medications Generic Name Dose Route Start Last Admin Trade Name Freq PRN Reason Stop Dose Admin Fentanyl Citrate 75 mcg 07/18/22 13:37 07/18/22 13:53 Fentanyl Citrate 100 Mcg/2 Ml* Vial IV 07/18/22 13:38 75 mcg STAT ONE Administration Fentanyl Citrate Confirm 07/18/22 13:51 Fentanyl Citrate 100 Mcg/2 Ml* Vial Administered 07/18/22 13:52 Dose 100 mcg .ROUTE .STK-MED ONE Sodium Chloride 1,000 mls @ 999 mls/hr 07/18/22 12:56 07/18/22 14:35 Sodium Chloride 0.9% 1000 Ml IV 07/18/22 13:56 Infused .Q1H1M STA Infusion Sodium Chloride Confirm 07/18/22 13:30 Sodium Chloride 0.9% 1000 Ml Administered 07/18/22 13:31 Dose 1,000 mls @ ud .ROUTE .STK-MED ONE Sodium Chloride 1,000 mls @ 999 mls/hr 07/18/22 13:34 07/18/22 14:56 Sodium Chloride 0.9% 1000 Ml IV 07/18/22 14:34 999 mls/hr .Q1H1M STA Administration Ceftriaxone Sodium/Dextrose 1 g in 50 mls @ 100 mls/hr 07/18/22 13:51 07/18/22 15:53 Rocephin 1 Gm-D5w 50 Ml Bag IV 07/18/22 14:20 Infused STAT STA Infusion Vancomycin HCl 1 gm in 200 mls @ 125 mls/hr 07/18/22 13:53 07/18/22 15:54 Vancomycin 1 Gram/200 Ml Bag IV 07/18/22 15:28 125 mls/hr STAT ONE 125 mls/hr Administration Sodium Chloride Confirm 07/18/22 14:52 Sodium Chloride 0.9% 1000 Ml Administered 07/18/22 14:53 Dose 1,000 mls @ ud .ROUTE .STK-MED ONE Ceftriaxone Sodium/Dextrose Confirm 07/18/22 14:53 Rocephin 1 Gm-D5w 50 Ml Bag Administered 07/18/22 14:54 Dose 1 g in 50 mls @ ud IV .STK-MED ONE Vancomycin HCl Confirm 07/18/22 15:53 Vancomycin 1 Gram/200 Ml Bag Administered 07/18/22 15:54 Dose 1 gm in 200 mls @ ud IV .STK-MED ONE Insulin Human Regular 5 unit 07/18/22 13:34 07/18/22 13:54 Insulin Regular, Human 1 Unit IV 07/18/22 13:35 5 unit STAT ONE Administration Insulin Human Regular Confirm 07/18/22 13:51 Insulin Regular, Human 1 Unit Administered 07/18/22 13:52 Dose 5 unit .ROUTE .STK-MED ONE Ondansetron HCl 4 mg 07/18/22 13:34 07/18/22 13:54 Ondansetron Hcl 4 Mg/2 Ml Vial IV 07/18/22 13:35 4 mg STAT ONE Administration Ondansetron HCl Confirm 07/18/22 13:50 Ondansetron Hcl 4 Mg/2 Ml Vial Administered 07/18/22 13:51 Dose 4 mg .ROUTE .STK-MED ONE Lab/Rad Data: Laboratory Result Diagrams 07/18/22 01:25 07/18/22 01:25 Laboratory Results 07/18/22 07/18/22 07/18/22 Range/Units 14:51 13:45 13:44 WBC (4.0-10.5) x10^3/uL RBC (4.1-5.4) x10^6/uL Hgb (12.0-16.0) g/dL Hct (35-47) % MCV (78-100) fL MCH (26-32) pg MCHC (32-36) g/dL RDW (11.5-14.0) % Plt Count (150-450) x10^3/uL MPV (7.5-11.0) fL Immature Gran # (Auto) (0.00-0.03) x10^3u/L Absolute Nucleated RBC (0.00-0.01) x10^3u/L Segmented Neutrophils (36.0-66.0) % Band Neutrophils (0.0-2.0) % Lymphocytes (Manual) (24-44) % Monocytes (Manual) (0.0-12.0) % Platelet Estimate (NORMAL) RBC Morphology pO2/FiO2 Ratio 21.0 % VBG pH 7.21 L* (7.32-7.42) VBG pCO2 at Pat Temp 25 L (42-55) mm/Hg VBG pO2 at Pat Temp 55 H (25-40) mm/Hg VBG HCO3 10.0 L* (22-28) meq/L VBG O2 Sat (Moe) 86.8 L (95-100) VBG Base Excess -16.1 L (-2.0-2.0) VBG Hemoglobin 14.1 VBG Carboxyhemoglobin 7.4 H* (0.0-6.9) % T HGB POC Potassium 6.0 H* (3.5-5.1) Sodium (137-145) mmol/L Potassium (3.5-5.1) mmol/L Chloride (98-107) mmol/L Carbon Dioxide (22-30) mmol/L Anion Gap (5-15) MEQ/L BUN (7-17) mg/dL Creatinine (0.52-1.04) mg/dL Estimated GFR ML/MIN Glucose (74-106) mg/dL Lactic Acid (0.4-2.0) Calcium (8.4-10.2) mg/dL Magnesium (1.6-2.3) mg/dL Total Bilirubin (0.2-1.3) mg/dL AST (14-36) U/L ALT (0-35) U/L Alkaline Phosphatase (38-126) U/L Troponin I 0.016 (0.000-0.034) ng/mL Serum Total Protein (6.3-8.2) g/dL Albumin (3.5-5.0) g/dL Urine Color (Yellow) Urine Appearance (Clear) Urine pH (4.6-8.0) Ur Specific [place] (1.005-1.030) Urine Protein (Negative) Urine Glucose (UA) (Negative) mg/dL Urine Ketones (Negative) Urine Blood (Negative) Urine Nitrite (Negative) Urine Bilirubin (Negative) Urine Urobilinogen (0.2) mg/dL Ur Leukocyte Esterase (Negative) U Hyaline Cast (Auto) (0-2) /LPF Urine Microscopic RBC (0-5) /HPF Urine Microscopic WBC (0-5) /HPF Ur Epithelial Cells (None Seen) /HPF Urine Bacteria (None Seen) /HPF Urine Culture Reflexed (NO) Influenza Type A Ag NEGATIVE (NEGATIVE) Influenza Type B Ag NEGATIVE (NEGATIVE) RSV (PCR) NEGATIVE (NEGATIVE) SARS-CoV-2 (PCR) NEGATIVE (NEGATIVE) 07/18/22 07/18/22 07/18/22 Range/Units 12:56 01:25 01:25 WBC 26.2 H* (4.0-10.5) x10^3/uL RBC 4.02 L (4.1-5.4) x10^6/uL Hgb 12.6 (12.0-16.0) g/dL Hct 40.8 (35-47) % MCV 101.5 H (78-100) fL MCH 31.3 (26-32) pg MCHC 30.9 L (32-36) g/dL RDW 13.6 (11.5-14.0) % Plt Count 534 H (150-450) x10^3/uL MPV 9.0 (7.5-11.0) fL Immature Gran # (Auto) 0.20 H (0.00-0.03) x10^3u/L Absolute Nucleated RBC 0.00 (0.00-0.01) x10^3u/L Segmented Neutrophils 87 H (36.0-66.0) % Band Neutrophils 5 H (0.0-2.0) % Lymphocytes (Manual) 6 L (24-44) % Monocytes (Manual) 2 (0.0-12.0) % Platelet Estimate INCREASED (NORMAL) RBC Morphology NORMAL pO2/FiO2 Ratio % VBG pH (7.32-7.42) VBG pCO2 at Pat Temp (42-55) mm/Hg VBG pO2 at Pat Temp (25-40) mm/Hg VBG HCO3 (22-28) meq/L VBG O2 Sat (Moe) (95-100) VBG Base Excess (-2.0-2.0) VBG Hemoglobin VBG Carboxyhemoglobin (0.0-6.9) % T HGB POC Potassium (3.5-5.1) Sodium 137 (137-145) mmol/L Potassium 5.2 H (3.5-5.1) mmol/L Chloride 99 (98-107) mmol/L Carbon Dioxide 11 L* (22-30) mmol/L Anion Gap 33.1 H (5-15) MEQ/L BUN 43 H (7-17) mg/dL Creatinine 1.60 H (0.52-1.04) mg/dL Estimated GFR 34.9 ML/MIN Glucose 799 H* (74-106) mg/dL Lactic Acid 5.4 H (0.4-2.0) Calcium 9.7 (8.4-10.2) mg/dL Magnesium 2.2 (1.6-2.3) mg/dL Total Bilirubin 0.70 (0.2-1.3) mg/dL AST 36 (14-36) U/L ALT 76 H (0-35) U/L Alkaline Phosphatase 327 H (38-126) U/L Troponin I (0.000-0.034) ng/mL Serum Total Protein 7.3 (6.3-8.2) g/dL Albumin 4.1 (3.5-5.0) g/dL Urine Color (Yellow) Urine Appearance (Clear) Urine pH (4.6-8.0) Ur Specific [place] (1.005-1.030) Urine Protein (Negative) Urine Glucose (UA) (Negative) mg/dL Urine Ketones (Negative) Urine Blood (Negative) Urine Nitrite (Negative) Urine Bilirubin (Negative) Urine Urobilinogen (0.2) mg/dL Ur Leukocyte Esterase (Negative) U Hyaline Cast (Auto) (0-2) /LPF Urine Microscopic RBC (0-5) /HPF Urine Microscopic WBC (0-5) /HPF Ur Epithelial Cells (None Seen) /HPF Urine Bacteria (None Seen) /HPF Urine Culture Reflexed (NO) Influenza Type A Ag (NEGATIVE) Influenza Type B Ag (NEGATIVE) RSV (PCR) (NEGATIVE) SARS-CoV-2 (PCR) (NEGATIVE) 07/18/22 Range/Units 01:25 WBC (4.0-10.5) x10^3/uL RBC (4.1-5.4) x10^6/uL Hgb (12.0-16.0) g/dL Hct (35-47) % MCV (78-100) fL MCH (26-32) pg MCHC (32-36) g/dL RDW (11.5-14.0) % Plt Count (150-450) x10^3/uL MPV (7.5-11.0) fL Immature Gran # (Auto) (0.00-0.03) x10^3u/L Absolute Nucleated RBC (0.00-0.01) x10^3u/L Segmented Neutrophils (36.0-66.0) % Band Neutrophils (0.0-2.0) % Lymphocytes (Manual) (24-44) % Monocytes (Manual) (0.0-12.0) % Platelet Estimate (NORMAL) RBC Morphology pO2/FiO2 Ratio % VBG pH (7.32-7.42) VBG pCO2 at Pat Temp (42-55) mm/Hg VBG pO2 at Pat Temp (25-40) mm/Hg VBG HCO3 (22-28) meq/L VBG O2 Sat (Moe) (95-100) VBG Base Excess (-2.0-2.0) VBG Hemoglobin VBG Carboxyhemoglobin (0.0-6.9) % T HGB POC Potassium (3.5-5.1) Sodium (137-145) mmol/L Potassium (3.5-5.1) mmol/L Chloride (98-107) mmol/L Carbon Dioxide (22-30) mmol/L Anion Gap (5-15) MEQ/L BUN (7-17) mg/dL Creatinine (0.52-1.04) mg/dL Estimated GFR ML/MIN Glucose (74-106) mg/dL Lactic Acid (0.4-2.0) Calcium (8.4-10.2) mg/dL Magnesium (1.6-2.3) mg/dL Total Bilirubin (0.2-1.3) mg/dL AST (14-36) U/L ALT (0-35) U/L Alkaline Phosphatase (38-126) U/L Troponin I (0.000-0.034) ng/mL Serum Total Protein (6.3-8.2) g/dL Albumin (3.5-5.0) g/dL Urine Color Yellow (Yellow) Urine Appearance Clear (Clear) Urine pH 6.0 (4.6-8.0) Ur Specific [place] 1.025 (1.005-1.030) Urine Protein Negative (Negative) Urine Glucose (UA) >=1000 A (Negative) mg/dL Urine Ketones 40 A (Negative) Urine Blood Negative (Negative) Urine Nitrite Negative (Negative) Urine Bilirubin Negative (Negative) Urine Urobilinogen 0.2 (0.2) mg/dL Ur Leukocyte Esterase Negative (Negative) U Hyaline Cast (Auto) NONE SEEN (0-2) /LPF Urine Microscopic RBC 0-2 (0-5) /HPF Urine Microscopic WBC 0-2 (0-5) /HPF Ur Epithelial Cells None Seen (None Seen) /HPF Urine Bacteria None Seen (None Seen) /HPF Urine Culture Reflexed NO (NO) Influenza Type A Ag (NEGATIVE) Influenza Type B Ag (NEGATIVE) RSV (PCR) (NEGATIVE) SARS-CoV-2 (PCR) (NEGATIVE) - Progress Progress: improved Discussed with : Giseal Will see patient in: hospital (observation) Medical Desision Making - Discussion of managment Care discussed with:: PCP Reviewed:: Test results Agreed on:: Treatment plan, decision to admit Will see patient: in hospital - Diagnostic Testing Diagnostic test were ordered, analyzed, and reviewed by me: Yes Radiological Interpretation: Reviewed by me - Risk of complications The pt has a high risk of morbidity or mortality based on: Drug therapy requiring intensive monitoring for toxicity - Departure Departure Disposition: Observation Clinical Impression: DKA (diabetic ketoacidosis), Sepsis Condition: Critical Critical Care Time: Yes Critical Care Time(excluding separately billable procedures): Critical 75-104 mins (80) Referrals: LYUDMILA ARIAS MD [Primary Care Provider] - Follow up/PCP as directed
[2022-07-18 13:35] LABS: Hematocrit 40.8 % (35-47); Hemoglobin 12.6 g/dL (12.0-16.0); Mean Cell Volume 101.5 fL (78-100); Mean Corpuscular Hemoglobin 31.3 pg (26-32); Mean Corpuscular Hgb Concent. 30.9 g/dL (32-36); Platelet Count 534 x10^3/uL (150-450); Red Blood Count 4.02 x10^6/uL (4.1-5.4); Red Cell Distribution Width 13.6 % (11.5-14.0)
[2022-07-18] MEDS ORDERED: SUBLIMAZE 100 MCG/2 ML IV ONE (13:37)
[2022-07-18 13:42] LABS: White Blood Count 26.2 x10^3/uL (4.0-10.5)
[2022-07-18 13:44] LABS: Appearance Clear (Clear); Bacteria None Seen /HPF (None Seen); Bilirubin Negative (Negative); Blood Negative (Negative); Epithelial Cells None Seen /HPF (None Seen); Glucose, Urine >=1000 mg/dL (Negative); Hyaline Casts NONE SEEN /LPF (0-2); Ketones 40 (Negative); Leukocyte Esterase Negative (Negative); Nitrite Negative (Negative); Protein,Urine Dip Negative (Negative); RBC 0-2 /HPF (0-5); Specific Gravity 1.025 (1.005-1.030); Urobilinogen 0.2 mg/dL (0.2); WBC 0-2 /HPF (0-5)
[2022-07-18 13:45] LABS: VBG BASE EXCESS -16.1 (-2.0-2.0); VBG HEMOGLOBIN 14.1; VBG O2 SATURATION 86.8 (95-100)
[2022-07-18 13:47] LABS: ALBUMIN 4.1 g/dL (3.5-5.0); ANION GAP 33.1 MEQ/L (5-15); BILIRUBIN,TOTAL 0.7 mg/dL (0.2-1.3); Calcium 9.7 mg/dL (8.4-10.2); Creatinine 1 1.6 mg/dL (0.52-1.04); EST GLOMERULAR FILTRATION RATE 34.9 ML/MIN; MAGNESIUM 2.2 mg/dL (1.6-2.3); Potassium 5.2 mmol/L (3.5-5.1); Total Protein 7.3 g/dL (6.3-8.2)
[2022-07-18 13:47] LABS: VBG CARBOXYHEMOGLOBIN 7.4 % T HGB (0.0-6.9); VBG pH 7.21 (7.32-7.42)
[2022-07-18] MEDS ORDERED: Zofran 4 MG/2 ML VIAL ONE (13:50)
[2022-07-18] MEDS ORDERED: HUMULIN R ONE (13:51)
[2022-07-18] MEDS ORDERED: ROCEPHIN 1 Gm-D5w 50 ml Bag** 1 G/50 ML IVPB IV STA (13:51)
[2022-07-18] MEDS ORDERED: SUBLIMAZE 100 MCG/2 ML ONE (13:51)
[2022-07-18] MEDS ORDERED: VANCOMYCIN 1 GRAM/200 ML BAG 1 GM/200 ML PIGGYBACK IV ONE ×2 (13:53→15:53)
--- NOTE | 2022-07-18 13:58 | XRAY ---
Indication: Short of breath. Recent CT proven left pneumothorax. Comparison: CT chest July 13, 2022. Portable chest again demonstrates moderate left pneumothorax, worsened near the lung base. Stable left effusion and minimal left chest wall subcutaneous emphysema. Remaining heart and right lung unremarkable again with incidental right Port-A-Cath and coronary stent.
[2022-07-18 14:23] LABS: BAND 5 % (0.0-2.0); Lymphocytes 6 % (24-44); Monocyte 2 % (0.0-12.0); Neutrophils 87 % (36.0-66.0); Platelet Estimate INCREASED (NORMAL); Total Cells Counted 100
[2022-07-18 14:28] LABS: ADD URINE CULTURE? NO (NO)
[2022-07-18] MEDS ORDERED: ROCEPHIN 1 Gm-D5w 50 ml Bag** 1 G/50 ML IVPB IV ONE (14:53)
[2022-07-18 15:58] LABS: INFLUENZA A NEGATIVE (NEGATIVE); INFLUENZA B NEGATIVE (NEGATIVE); RESPIRATORY SYNCTIAL VIRUS NEGATIVE (NEGATIVE); SARS-CoV-2 Xpert Express NEGATIVE (NEGATIVE)
[2022-07-18] MEDS ORDERED: Zofran 4 MG/2 ML VIAL IV PRN (16:11)
[2022-07-18] MEDS ORDERED: VANCOMYCIN 1 GRAM/200 ML BAG 1 GM/200 ML PIGGYBACK IV SCH (16:15)
[2022-07-18] MEDS ORDERED: Xylocaine-Mpf 2% 5 Ml Vial ONE (17:08)
[2022-07-18] MEDS ORDERED: Sodium Chloride 0.9% 1000 ML 1,000 ML IV SCH (19:00)
[2022-07-18] MEDS ORDERED: PHENERGAN 25 MG PO ONE (19:26)
[2022-07-18] MEDS: Hydromorphone 1 mg/ml Injection IV PRN (19:48)
[2022-07-18] MEDS: Advair Hfa 115/21 Common canister IH SCH (20:25)
[2022-07-18] MEDS ORDERED: Dextrose 5% -0.45 NaCl 1000 ML 0 ML IV ONE (20:46)
[2022-07-18] MEDS: D5W/0.45NS W/ 20mEq KCl 1000 ML 1,000 ML IV SCH (20:49)
[2022-07-18] MEDS ORDERED: ZOCOR 20MG PO ONE (21:53)
[2022-07-18] MEDS: XANAX 1 MG PO SCH (21:59)
[2022-07-18] MEDS: Protonix 40MG Tablet PO SCH (21:59)
[2022-07-18] MEDS ORDERED: LIPITOR 40MG PO SCH (22:00)
--- NOTE | 2022-07-18 23:09 | TM.IN ---
Tele-Medicine Incident Note - Incident Note Tel-Medicine Incident Note: Called with a critical lab result (troponin increased from 0.046 to 0.065). No active chest pain. Will repeat troponin in 6h to confirm plateauing. Continue to monitor on tele
[2022-07-19] MEDS: Hydromorphone 1 mg/ml Injection IV PRN ×5 (01:50→17:30)
[2022-07-19] MEDS ORDERED: Dextrose 5% -0.45 NaCl 1000 ML 0 ML IV ONE (01:55)
[2022-07-19] MEDS: D5W/0.45NS W/ 20mEq KCl 1000 ML 1,000 ML IV SCH ×3 (01:58→21:31)
[2022-07-19 05:20] LABS: A-aADO2 30; ABG HEMOGLOBIN 9.9; ABG POTASSIUM 4.5 (3.5-5.1); ABG SITE RIGHT BRACHIAL; ARTERIAL BLOOD GAS BASE EXCESS -2.4 (-2.0-2.0); ARTERIAL BLOOD GAS FIO2 28 %; ARTERIAL BLOOD GAS PCO2 30 mmHg (35-45); ARTERIAL BLOOD GAS PO2 132 mmHg (75-100); ARTERIAL BLOOD GAS pH 7.45 (7.35-7.45); CARBOXYHEMOGLOBIN 4.4 % THgb (0.0-6.9); HCO3- 20.9 (22-28); HGB O2 SAT 94.6 g/dF (94-100); paO2 pAO1 0.81
[2022-07-19 05:38] LABS: Absolute Neutrophil Ct (ANC) 14.43 x10^3/uL (1.4-6.9); BASOPHIL % 0.6 % (0.0-0.4); Basophil (Absolute #) 0.13 x10^3/uL (0-0.4); Eosinophil % 8.3 % (0.00-5.0); Eosinophil (Absolute #) 1.77 x10^3/uL (0-0.5); Hematocrit 29.5 % (35-47); IMMATURE GRAN # 0.16 x10^3u/L (0.00-0.03); IMMATURE GRAN % 0.7 % (0.00-0.4); Lymphocytes % 17.7 % (24.0-44.0); Mean Cell Volume 96.4 fL (78-100); Mean Corpuscular Hemoglobin 31.4 pg (26-32); Mean Corpuscular Hgb Concent. 32.5 g/dL (32-36); Mean Platelet Volume 8.5 fL (7.5-11.0); Monocyte (Absolute #) 1.14 x10^3/uL (0.0-1.3); Monocytes % 5.3 % (0.0-12.0); Neutrophil % 67.4 % (36.0-66.0); Platelet Count 381 x10^3/uL (150-450); Red Blood Count 3.06 x10^6/uL (4.1-5.4); Red Cell Distribution Width 13.3 % (11.5-14.0); White Blood Count 21.4 x10^3/uL (4.0-10.5)
[2022-07-19 05:39] LABS: Hemoglobin 9.6 g/dL (12.0-16.0)
[2022-07-19 05:46] LABS: ALBUMIN 2.5 g/dL (3.5-5.0); ANION GAP 10.1 MEQ/L (5-15); BILIRUBIN,TOTAL 0.3 mg/dL (0.2-1.3); Calcium 7.8 mg/dL (8.4-10.2); Creatinine 1 1.01 mg/dL (0.52-1.04); EST GLOMERULAR FILTRATION RATE 59.4 ML/MIN; Potassium 4.4 mmol/L (3.5-5.1); Total Protein 5.1 g/dL (6.3-8.2)
[2022-07-19] MEDS: VANCOCIN 500 MG VIAL*** 500 MG in Sodium Chloride 100ML MINI-BAG PLUS 100 ML IV SCH ×2 (06:37→17:36)
[2022-07-19] MEDS ORDERED: PHENERGAN 25 MG PO PRN (06:39)
[2022-07-19] MEDS ORDERED: VENTOLIN COMMON CANISTER IH PRN (06:40)
[2022-07-19] MEDS: Advair Hfa 115/21 Common canister IH SCH ×2 (06:52→18:45)
[2022-07-19] MEDS: ROCEPHIN 1 Gm-D5w 50 ml Bag** 1 G/50 ML IVPB IV SCH (10:00)
[2022-07-19] MEDS ORDERED: HUMALOG SQ PRN (11:59)
[2022-07-19] MEDS ORDERED: TORAdol 30 mg Injection IV PRN (15:53)
[2022-07-19] MEDS ORDERED: HYDROMORPHONE 30 MG/30 ML-NS PCA IV PRN (17:55)
[2022-07-19 18:35] LABS: ANION GAP 11.7 MEQ/L (5-15); BLOOD UREA NITROGEN 18 mg/dL (7-17); CHLORIDE 105 mmol/L (98-107); Calcium 8.4 mg/dL (8.4-10.2); Carbon Dioxide 24 mmol/L (22-30); Creatinine 1 0.66 mg/dL (0.52-1.04); EST GLOMERULAR FILTRATION RATE > 60.0 ML/MIN; Glucose 109 mg/dL (74-106); Potassium 4.6 mmol/L (3.5-5.1); SODIUM 135 mmol/L (137-145)
--- NOTE | 2022-07-19 20:20 | PCM.NOTE ---
Date and Time: 07/19/222017 Subjective Assessment: doing little better. last 12 hours events noted - Review of Systems Constitutional: No Fever, No Chills Eyes: No Symptoms Ears, Nose, & Throat: No Symptoms Respiratory: No Cough, No Short Of Breath Cardiac: Chest Pain, Other (suture wound), No Edema, No Syncope Abdominal/Gastrointestinal: No Abdominal Pain, No Nausea, No Vomiting, No Diarrh ea Genitourinary Symptoms: No Dysuria Musculoskeletal: No Back Pain, No Neck Pain Skin: No Rash Neurological: No Dizziness, No Focal Weakness, No Sensory Changes Psychological: No Symptoms Endocrine: No Symptoms Hematologic/Lymphatic: No Symptoms Immunological/Allergic: No Symptoms Objective Exam General Appearance: no apparent distress, alert Neurologic Exam: alert, oriented x 3, cooperative, normal mood/affect, nml cerebellar function, sensation nml, No motor deficits Skin Exam: normal color, warm, dry Wound Assessment: Skin/Wound Assessment Wound/Incision Assessment Start: 07/18/22 18:32 Text: Status: Active Freq: Q6H Protocol: Document 07/19/22 20:00 (Rec: 07/19/22 20:08 [id number]) Wound/Incision Assessment Left Lateral Chest Wound Type Incision Comment Approx 2.5inch long incision noted under lateral edge of left breast. Area is well approximated and surgical glue noted. Left Lateral Abdomen Wound Type Incision Wound Stage Non Pressure Wound Dressing Status Dry & Intact Drainage Amount Minimal Drainage Description Purulent Drainage Odor None/Absent Length (cm) (cm) 1 Width (cm) (cm) 0.5 Comment PT has 2 surgical incisions noted to left flank area approx 1.5 inces apart. Both messuring 1cm x 0.5cm open wounds (left open per surgeon) minimal drainage noted with redness noted to margins of both Right Neck Wound Assessment Shift Assessment Wound Type Incision Comment port placement 1 week ago per pt. area is well approximated with skin glue noted. no signs of infection noted Wound Photo Photo Taken No Eye Exam: PERRL, EOMI, eyes nml inspection Ears, Nose, Throat Exam: normal ENT inspection, pharynx normal, moist mucous membranes Neck Exam: normal inspection, non-tender, supple, full range of motion Respiratory Exam: normal breath sounds, lungs clear, No respiratory distress Cardiovascular Exam: regular rate/rhythm, normal heart sounds Gastrointestinal/Abdomen Exam: soft, No tenderness, No mass Extremity Exam: normal inspection, normal range of motion Back Exam: normal inspection, normal range of motion, No CVA tenderness, No vertebral tenderness Pelvic Exam: deferred Rectal Exam: deferred OBJECTIVE DATA Vital Signs: Vital Signs - 24 hr Temp Pulse Resp BP Pulse Ox 07/19/22 18:45 73 16 96 07/19/22 18:10 16 98 07/19/22 15:00 97.6 F 72 16 157/73 99 07/19/22 11:00 98.0 F 90 19 127/56 94 L 07/19/22 07:46 83 07/19/22 06:53 83 18 96 07/19/22 05:00 98.5 F 97 H 16 115/59 98 07/19/22 04:00 89 07/19/22 02:09 16 100/53 98 07/19/22 01:48 98.5 F 93 H 16 100/53 98 07/19/22 00:01 93 H 07/18/22 22:49 100 H 18 105/48 96 07/18/22 21:00 99 H 16 107/53 91 L 07/18/22 20:25 104 H 16 97 Pain Assessment - Last Documented Pain Intensity 3 Pain Scale Used 0-10 Pain Scale Intake and Output: Intake & Output 07/17/22 07/18/22 07/19/22 07/20/22 11:59 11:59 11:59 11:59 Intake Total 2200 Output Total 240 Balance 1960 Weight 53.7 kg Lab Results: Lab Results-Last 24 Hours 07/18/22 07/18/22 07/18/22 Range/Units 01:25 20:29 21:32 WBC 26.2 H* (4.0-10.5) x10^3/uL RBC 4.02 L (4.1-5.4) x10^6/uL Hgb 12.6 (12.0-16.0) g/dL Hct 40.8 (35-47) % MCV 101.5 H (78-100) fL MCH 31.3 (26-32) pg MCHC 30.9 L (32-36) g/dL RDW 13.6 (11.5-14.0) % Plt Count 534 H (150-450) x10^3/uL MPV 9.0 (7.5-11.0) fL Gran % (36.0-66.0) % Immature Gran % (Auto) (0.00-0.4) % Nucleat RBC Rel Count (0.00-0.1) % Eos # (Auto) (0-0.5) x10^3/uL Immature Gran # (Auto) 0.20 H (0.00-0.03) x10^3u/L Absolute Lymphs (auto) (1.0-4.6) x10^3/uL Absolute Monos (auto) (0.0-1.3) x10^3/uL Absolute Nucleated RBC 0.00 (0.00-0.01) x10^3u/L Lymphocytes % (24.0-44.0) % Monocytes % (0.0-12.0) % Eosinophils % (0.00-5.0) % Basophils % (0.0-0.4) % Absolute Granulocytes (1.4-6.9) x10^3/uL Segmented Neutrophils 87 H (36.0-66.0) % Band Neutrophils 5 H (0.0-2.0) % Lymphocytes (Manual) 6 L (24-44) % Monocytes (Manual) 2 (0.0-12.0) % Basophils # (0-0.4) x10^3/uL Platelet Estimate INCREASED (NORMAL) RBC Morphology NORMAL Smear Path Review Puncture Site pCO2 (35-45) mmHg pO2 (75-100) mmHg Base Excess (-2.0-2.0) O2 Saturation (94-100) g/dF ABG pH (7.35-7.45) ABG HCO3 (22-28) ABG O2 Sat (Measured) (95-100) % Luis Test A-a Gradient a/A Ratio Hemoglobin Carboxyhemoglobin (0.0-6.9) % THgb Methemoglobin (1.4-1.5) % Potassium (3.5-5.1) Temperature C POC O2 Flow Rate % Sodium (137-145) mmol/L Chloride (98-107) mmol/L Carbon Dioxide (22-30) mmol/L Anion Gap (5-15) MEQ/L BUN (7-17) mg/dL Creatinine (0.52-1.04) mg/dL Estimated GFR ML/MIN Glucose (74-106) mg/dL POC Glucometer 124 H 119 H (74 to 106) mg/dL Calcium (8.4-10.2) mg/dL Total Bilirubin (0.2-1.3) mg/dL AST (14-36) U/L ALT (0-35) U/L Alkaline Phosphatase (38-126) U/L Troponin I (0.000-0.034) ng/mL Serum Total Protein (6.3-8.2) g/dL Albumin (3.5-5.0) g/dL 07/18/22 07/18/22 07/18/22 Range/Units 22:00 22:25 23:29 WBC (4.0-10.5) x10^3/uL RBC (4.1-5.4) x10^6/uL Hgb (12.0-16.0) g/dL Hct (35-47) % MCV (78-100) fL MCH (26-32) pg MCHC (32-36) g/dL RDW (11.5-14.0) % Plt Count (150-450) x10^3/uL MPV (7.5-11.0) fL Gran % (36.0-66.0) % Immature Gran % (Auto) (0.00-0.4) % Nucleat RBC Rel Count (0.00-0.1) % Eos # (Auto) (0-0.5) x10^3/uL Immature Gran # (Auto) (0.00-0.03) x10^3u/L Absolute Lymphs (auto) (1.0-4.6) x10^3/uL Absolute Monos (auto) (0.0-1.3) x10^3/uL Absolute Nucleated RBC (0.00-0.01) x10^3u/L Lymphocytes % (24.0-44.0) % Monocytes % (0.0-12.0) % Eosinophils % (0.00-5.0) % Basophils % (0.0-0.4) % Absolute Granulocytes (1.4-6.9) x10^3/uL Segmented Neutrophils (36.0-66.0) % Band Neutrophils (0.0-2.0) % Lymphocytes (Manual) (24-44) % Monocytes (Manual) (0.0-12.0) % Basophils # (0-0.4) x10^3/uL Platelet Estimate (NORMAL) RBC Morphology Smear Path Review Puncture Site pCO2 (35-45) mmHg pO2 (75-100) mmHg Base Excess (-2.0-2.0) O2 Saturation (94-100) g/dF ABG pH (7.35-7.45) ABG HCO3 (22-28) ABG O2 Sat (Measured) (95-100) % Luis Test A-a Gradient a/A Ratio Hemoglobin Carboxyhemoglobin (0.0-6.9) % THgb Methemoglobin (1.4-1.5) % Potassium (3.5-5.1) Temperature C POC O2 Flow Rate % Sodium (137-145) mmol/L Chloride (98-107) mmol/L Carbon Dioxide (22-30) mmol/L Anion Gap (5-15) MEQ/L BUN (7-17) mg/dL Creatinine (0.52-1.04) mg/dL Estimated GFR ML/MIN Glucose (74-106) mg/dL POC Glucometer 135 H 124 H (74 to 106) mg/dL Calcium (8.4-10.2) mg/dL Total Bilirubin (0.2-1.3) mg/dL AST (14-36) U/L ALT (0-35) U/L Alkaline Phosphatase (38-126) U/L Troponin I 0.065 H* (0.000-0.034) ng/mL Serum Total Protein (6.3-8.2) g/dL Albumin (3.5-5.0) g/dL 07/19/22 07/19/22 07/19/22 Range/Units 02:02 05:12 05:30 WBC 21.4 H (4.0-10.5) x10^3/uL RBC 3.06 L (4.1-5.4) x10^6/uL Hgb 9.6 L D (12.0-16.0) g/dL Hct 29.5 L (35-47) % MCV 96.4 (78-100) fL MCH 31.4 (26-32) pg MCHC 32.5 (32-36) g/dL RDW 13.3 (11.5-14.0) % Plt Count 381 (150-450) x10^3/uL MPV 8.5 (7.5-11.0) fL Gran % 67.4 H (36.0-66.0) % Immature Gran % (Auto) 0.7 H (0.00-0.4) % Nucleat RBC Rel Count 0.0 (0.00-0.1) % Eos # (Auto) 1.77 H (0-0.5) x10^3/uL Immature Gran # (Auto) 0.16 H (0.00-0.03) x10^3u/L Absolute Lymphs (auto) 3.80 (1.0-4.6) x10^3/uL Absolute Monos (auto) 1.14 (0.0-1.3) x10^3/uL Absolute Nucleated RBC 0.00 (0.00-0.01) x10^3u/L Lymphocytes % 17.7 L (24.0-44.0) % Monocytes % 5.3 (0.0-12.0) % Eosinophils % 8.3 H (0.00-5.0) % Basophils % 0.6 (0.0-0.4) % Absolute Granulocytes 14.43 H (1.4-6.9) x10^3/uL Segmented Neutrophils (36.0-66.0) % Band Neutrophils (0.0-2.0) % Lymphocytes (Manual) (24-44) % Monocytes (Manual) (0.0-12.0) % Basophils # 0.13 (0-0.4) x10^3/uL Platelet Estimate (NORMAL) RBC Morphology Smear Path Review Puncture Site RIGHT BRACHIAL pCO2 30 L (35-45) mmHg pO2 132 H* (75-100) mmHg Base Excess -2.4 L (-2.0-2.0) O2 Saturation 94.6 (94-100) g/dF ABG pH 7.45 (7.35-7.45) ABG HCO3 20.9 L (22-28) ABG O2 Sat (Measured) 100.0 (95-100) % Luis Test NOT APPLICABLE A-a Gradient 30 a/A Ratio 0.81 Hemoglobin 9.9 Carboxyhemoglobin 4.4 (0.0-6.9) % THgb Methemoglobin 1.0 L (1.4-1.5) % Potassium 4.5 (3.5-5.1) Temperature 37.0 C POC O2 Flow Rate 28 % Sodium (137-145) mmol/L Chloride (98-107) mmol/L Carbon Dioxide (22-30) mmol/L Anion Gap (5-15) MEQ/L BUN (7-17) mg/dL Creatinine (0.52-1.04) mg/dL Estimated GFR ML/MIN Glucose (74-106) mg/dL POC Glucometer 135 H (74 to 106) mg/dL Calcium (8.4-10.2) mg/dL Total Bilirubin (0.2-1.3) mg/dL AST (14-36) U/L ALT (0-35) U/L Alkaline Phosphatase (38-126) U/L Troponin I (0.000-0.034) ng/mL Serum Total Protein (6.3-8.2) g/dL Albumin (3.5-5.0) g/dL 07/19/22 07/19/22 07/19/22 Range/Units 05:30 05:30 07:30 WBC (4.0-10.5) x10^3/uL RBC (4.1-5.4) x10^6/uL Hgb (12.0-16.0) g/dL Hct (35-47) % MCV (78-100) fL MCH (26-32) pg MCHC (32-36) g/dL RDW (11.5-14.0) % Plt Count (150-450) x10^3/uL MPV (7.5-11.0) fL Gran % (36.0-66.0) % Immature Gran % (Auto) (0.00-0.4) % Nucleat RBC Rel Count (0.00-0.1) % Eos # (Auto) (0-0.5) x10^3/uL Immature Gran # (Auto) (0.00-0.03) x10^3u/L Absolute Lymphs (auto) (1.0-4.6) x10^3/uL Absolute Monos (auto) (0.0-1.3) x10^3/uL Absolute Nucleated RBC (0.00-0.01) x10^3u/L Lymphocytes % (24.0-44.0) % Monocytes % (0.0-12.0) % Eosinophils % (0.00-5.0) % Basophils % (0.0-0.4) % Absolute Granulocytes (1.4-6.9) x10^3/uL Segmented Neutrophils (36.0-66.0) % Band Neutrophils (0.0-2.0) % Lymphocytes (Manual) (24-44) % Monocytes (Manual) (0.0-12.0) % Basophils # (0-0.4) x10^3/uL Platelet Estimate (NORMAL) RBC Morphology Smear Path Review Puncture Site pCO2 (35-45) mmHg pO2 (75-100) mmHg Base Excess (-2.0-2.0) O2 Saturation (94-100) g/dF ABG pH (7.35-7.45) ABG HCO3 (22-28) ABG O2 Sat (Measured) (95-100) % Luis Test A-a Gradient a/A Ratio Hemoglobin Carboxyhemoglobin (0.0-6.9) % THgb Methemoglobin (1.4-1.5) % Potassium 4.4 (3.5-5.1) Temperature C POC O2 Flow Rate % Sodium 134 L (137-145) mmol/L Chloride 105 (98-107) mmol/L Carbon Dioxide 24 (22-30) mmol/L Anion Gap 10.1 (5-15) MEQ/L BUN 32 H (7-17) mg/dL Creatinine 1.01 (0.52-1.04) mg/dL Estimated GFR 59.4 ML/MIN Glucose 145 H (74-106) mg/dL POC Glucometer 276 H (74 to 106) mg/dL Calcium 7.8 L D (8.4-10.2) mg/dL Total Bilirubin 0.30 (0.2-1.3) mg/dL AST 25 (14-36) U/L ALT 42 H (0-35) U/L Alkaline Phosphatase 206 H (38-126) U/L Troponin I 0.062 H* (0.000-0.034) ng/mL Serum Total Protein 5.1 L (6.3-8.2) g/dL Albumin 2.5 L (3.5-5.0) g/dL 07/19/22 07/19/22 07/19/22 Range/Units 11:40 16:03 18:00 WBC (4.0-10.5) x10^3/uL RBC (4.1-5.4) x10^6/uL Hgb (12.0-16.0) g/dL Hct (35-47) % MCV (78-100) fL MCH (26-32) pg MCHC (32-36) g/dL RDW (11.5-14.0) % Plt Count (150-450) x10^3/uL MPV (7.5-11.0) fL Gran % (36.0-66.0) % Immature Gran % (Auto) (0.00-0.4) % Nucleat RBC Rel Count (0.00-0.1) % Eos # (Auto) (0-0.5) x10^3/uL Immature Gran # (Auto) (0.00-0.03) x10^3u/L Absolute Lymphs (auto) (1.0-4.6) x10^3/uL Absolute Monos (auto) (0.0-1.3) x10^3/uL Absolute Nucleated RBC (0.00-0.01) x10^3u/L Lymphocytes % (24.0-44.0) % Monocytes % (0.0-12.0) % Eosinophils % (0.00-5.0) % Basophils % (0.0-0.4) % Absolute Granulocytes (1.4-6.9) x10^3/uL Segmented Neutrophils (36.0-66.0) % Band Neutrophils (0.0-2.0) % Lymphocytes (Manual) (24-44) % Monocytes (Manual) (0.0-12.0) % Basophils # (0-0.4) x10^3/uL Platelet Estimate (NORMAL) RBC Morphology Smear Path Review Puncture Site pCO2 (35-45) mmHg pO2 (75-100) mmHg Base Excess (-2.0-2.0) O2 Saturation (94-100) g/dF ABG pH (7.35-7.45) ABG HCO3 (22-28) ABG O2 Sat (Measured) (95-100) % Luis Test A-a Gradient a/A Ratio Hemoglobin Carboxyhemoglobin (0.0-6.9) % THgb Methemoglobin (1.4-1.5) % Potassium 4.6 (3.5-5.1) Temperature C POC O2 Flow Rate % Sodium 135 L (137-145) mmol/L Chloride 105 (98-107) mmol/L Carbon Dioxide 24 (22-30) mmol/L Anion Gap 11.7 (5-15) MEQ/L BUN 18 H (7-17) mg/dL Creatinine 0.66 (0.52-1.04) mg/dL Estimated GFR > 60.0 ML/MIN Glucose 109 H (74-106) mg/dL POC Glucometer 198 H 136 H (74 to 106) mg/dL Calcium 8.4 (8.4-10.2) mg/dL Total Bilirubin (0.2-1.3) mg/dL AST (14-36) U/L ALT (0-35) U/L Alkaline Phosphatase (38-126) U/L Troponin I (0.000-0.034) ng/mL Serum Total Protein (6.3-8.2) g/dL Albumin (3.5-5.0) g/dL Radiology Exams: Radiology Procedures Category Date Time Status CHEST 1 VIEW (PORTABLE) Stat Exams 07/18/22 12:56 Completed Assessment/Plan (1) Sepsis Current Visit: Yes Status: Acute Qualifiers: Sepsis type: Pseudomonas Sepsis acute organ dysfunction status: with acute organ dysfunction Severe sepsis acute organ dysfunction type: acute respiratory failure Acute respiratory failure type: with hypoxia Severe sepsis shock status: with septic shock Qualified Code(s): A41.52 - Sepsis due to Pseudomonas; R65.21 - Severe sepsis with septic shock; J96.01 - Acute respiratory failure with hypoxia Assessment & Plan: Chief Complaint Diagnosis DKA Allergies Allergy/AdvReac Type Severity Reaction Status Date / Time orphenadrine citrate Allergy Intermediate Verified 07/13/22 03:06 [From Norflex] adhesive tape Allergy Verified 07/13/22 03:06 hydrocodone bitartrate AdvReac Mild Verified 07/18/22 13:22 [From [place]] levofloxacin [From Levaquin] AdvReac Mild Nausea and Verified 07/13/22 03:06 Vomiting Vital Signs (Last 24 hours) Temp Pulse Resp BP Pulse Ox 07/19/22 18:45 73 16 96 07/19/22 18:10 16 98 07/19/22 15:00 97.6 F 72 16 157/73 99 07/19/22 11:00 98.0 F 90 19 127/56 94 L 07/19/22 07:46 83 07/19/22 06:53 83 18 96 07/19/22 05:00 98.5 F 97 H 16 115/59 98 07/19/22 04:00 89 07/19/22 02:09 16 100/53 98 07/19/22 01:48 98.5 F 93 H 16 100/53 98 07/19/22 00:01 93 H 07/18/22 22:49 100 H 18 105/48 96 07/18/22 21:00 99 H 16 107/53 91 L 07/18/22 20:25 104 H 16 97 Home Medications Medication Instructions Recorded Confirmed Last Taken Type ALPRAZolam 1 MG [Xanax 1 mg] 1 mg PO HS 07/18/22 07/18/22 Unknown History Atorvastatin Calcium 80 mg PO HS 07/18/22 07/18/22 Unknown History Gabapentin [Neurontin ] 200 mg PO BID 07/18/22 07/18/22 07/18/22 History Current Medications Generic Name Dose Route Start Last Admin Trade Name Freq PRN Reason Stop Dose Admin Albuterol Sulfate 2 puff 07/19/22 06:40 Albuterol Common Canister Inhaler IH 08/18/22 06:39 Q4H PRN PRN cough or wheeze Alprazolam 1 mg 07/18/22 22:00 07/18/22 21:59 Alprazolam 1 Mg Tablet PO 08/17/22 21:59 1 mg HS NISSA Administration Hydromorphone HCl 1 mg 07/19/22 11:59 07/19/22 17:30 Hydromorphone 1 Mg/1ml Inj 1 Mg/Ml Syringe IV 07/24/22 11:58 1 mg Q4H PRN PRN Administration PAIN Hydromorphone/Sodium Chloride 30 mg 07/19/22 17:55 07/19/22 18:10 Hydromorphone/Nacl/Pf 30 Mg/30 Ml Milieu Therapist.Syring IV 08/18/22 17:54 30 mg .STANDARD PHYSICAL TRAINER DOSING PRN Administration PAIN Insulin Human Regular 100 unit 100 mls @ 5.32 mls/hr 07/18/22 13:34 07/18/22 20:38 / Sodium Chloride IV 08/17/22 13:33 0 unit/kg/hr .[id number] PRN 0 mls/hr DKA/HYPERGLYCEMIA Titration Protocol 0.1 UNIT/KG/HR Ceftriaxone Sodium/Dextrose 1 g in 50 mls @ 100 mls/hr 07/19/22 10:00 07/19/22 10:00 Rocephin 1 Gm-D5w 50 Ml Bag IV 07/22/22 09:59 100 mls/hr Q24H10 NISSA Administration Vancomycin HCl 500 mg/ Sodium 100 mls @ 100 mls/hr 07/19/22 06:00 07/19/22 17:36 Chloride IV 08/18/22 05:59 100 mls/hr Q12H NISSA Administration Potassium Chloride/Dextrose/Sod Cl 1,000 mls @ 150 mls/hr 07/18/22 21:00 07/19/22 11:34 D5w/0.45ns W/ 20meq Kcl 1000 Ml IV 08/17/22 20:59 150 mls/hr .Q6H40M NISSA Administration Insulin Human Lispro 0 unit 07/19/22 11:59 Insulin Lispro 1 Unit SQ 08/18/22 11:58 UD PRN HYPERGLYCEMIA Ketorolac Tromethamine 30 mg 07/19/22 15:53 07/19/22 16:01 Ketorolac Tromethamine 30 Mg/Ml Inj IV 07/24/22 15:52 30 mg Q6H PRN PRN Administration PAIN Ondansetron HCl 4 mg 07/18/22 16:11 Ondansetron Hcl 4 Mg/2 Ml Vial IV 08/17/22 16:10 Q6H PRN PRN NAUSEA/VOMITING Pantoprazole Sodium 40 mg 07/18/22 22:00 07/18/22 21:59 Protonix (Pantoprazole) 40 Mg Tablet PO 08/17/22 21:59 40 mg HS NISSA Administration Promethazine HCl 25 mg 07/19/22 06:39 Promethazine Hcl 25 Mg Tablet PO 08/18/22 06:38 QID PRN PRN nausea Fluticasone/Salmeterol 2 puff 07/18/22 19:00 07/19/22 18:45 Fluticasone/Salmeterol 115/21 - 120 Puff Common Canister IH 08/17/22 18:59 2 puff BIDRT NISSA Administration Simvastatin 40 mg 07/19/22 22:00 Simvastatin 20 Mg Tablet PO 08/18/22 21:59 HS NISSA Discontinued Medications Generic Name Dose Route Start Last Admin Trade Name Freq PRN Reason Stop Dose Admin Fentanyl Citrate 75 mcg 07/18/22 13:37 07/18/22 13:53 Fentanyl Citrate 100 Mcg/2 Ml* Vial IV 07/18/22 13:38 75 mcg STAT ONE Administration Fentanyl Citrate Confirm 07/18/22 13:51 Fentanyl Citrate 100 Mcg/2 Ml* Vial Administered 07/18/22 13:52 Dose 100 mcg .ROUTE .STK-MED ONE Heparin Sodium (Beef Lung) Confirm 07/19/22 17:17 Heparin Lock Flush Pf 500 Units/5 Ml Syringe Administered 07/19/22 17:18 Dose 500 units .ROUTE .STK-MED ONE Hydromorphone HCl 0.5 mg 07/18/22 18:54 07/19/22 08:35 Hydromorphone 1 Mg/1ml Inj 1 Mg/Ml Syringe IV 07/23/22 18:53 0.5 mg Q4H PRN PRN Administration PAIN Sodium Chloride 1,000 mls @ 999 mls/hr 07/18/22 12:56 07/18/22 14:35 Sodium Chloride 0.9% 1000 Ml IV 07/18/22 13:56 Infused .Q1H1M STA Infusion Sodium Chloride Confirm 07/18/22 13:30 Sodium Chloride 0.9% 1000 Ml Administered 07/18/22 13:31 Dose 1,000 mls @ ud .ROUTE .STK-MED ONE Sodium Chloride 1,000 mls @ 999 mls/hr 07/18/22 13:34 07/18/22 16:26 Sodium Chloride 0.9% 1000 Ml IV 07/18/22 14:34 Infused .Q1H1M STA Infusion Ceftriaxone Sodium/Dextrose 1 g in 50 mls @ 100 mls/hr 07/18/22 13:51 07/18/22 15:53 Rocephin 1 Gm-D5w 50 Ml Bag IV 07/18/22 14:20 Infused STAT STA Infusion Vancomycin HCl 1 gm in 200 mls @ 125 mls/hr 07/18/22 13:53 07/18/22 15:54 Vancomycin 1 Gram/200 Ml Bag IV 07/18/22 15:28 125 mls/hr STAT ONE 125 mls/hr Administration Sodium Chloride Confirm 07/18/22 14:52 Sodium Chloride 0.9% 1000 Ml Administered 07/18/22 14:53 Dose 1,000 mls @ ud .ROUTE .STK-MED ONE Ceftriaxone Sodium/Dextrose Confirm 07/18/22 14:53 Rocephin 1 Gm-D5w 50 Ml Bag Administered 07/18/22 14:54 Dose 1 g in 50 mls @ ud IV .STK-MED ONE Vancomycin HCl Confirm 07/18/22 15:53 Vancomycin 1 Gram/200 Ml Bag Administered 07/18/22 15:54 Dose 1 gm in 200 mls @ ud IV .STK-MED ONE Vancomycin HCl 1 gm in 200 mls @ 125 mls/hr 07/18/22 16:15 Vancomycin 1 Gram/200 Ml Bag IV 08/17/22 16:14 Q12H NISSA Sodium Chloride 1,000 mls @ 150 mls/hr 07/18/22 19:00 07/18/22 19:00 Sodium Chloride 0.9% 1000 Ml IV 08/17/22 18:59 150 mls/hr .Q6H40M NISSA Administration Dextrose/Sodium Chloride Confirm 07/18/22 20:46 Dextrose 5% -0.45 Nacl 1000 Ml Administered 07/18/22 20:47 Dose 1,000 mls @ ud IV .STK-MED ONE Dextrose/Sodium Chloride Confirm 07/19/22 01:55 Dextrose 5% -0.45 Nacl 1000 Ml Administered 07/19/22 01:56 Dose 1,000 mls @ ud IV .STK-MED ONE Sodium Chloride Confirm 07/18/22 18:59 Sodium Chloride 0.9% 1000 Ml Administered 07/18/22 19:00 Dose 1,000 mls @ ud .ROUTE .STK-MED ONE Insulin Human Regular 5 unit 07/18/22 13:34 07/18/22 13:54 Insulin Regular, Human 1 Unit IV 07/18/22 13:35 5 unit STAT ONE Administration Insulin Human Regular Confirm 07/18/22 13:51 Insulin Regular, Human 1 Unit Administered 07/18/22 13:52 Dose 5 unit .ROUTE .STK-MED ONE Lidocaine HCl Confirm 07/18/22 17:08 Lidocaine - Mpf 2% 5 Ml Vial Administered 07/18/22 17:09 Dose 5 ml .ROUTE .STK-MED ONE Ondansetron HCl 4 mg 07/18/22 13:34 07/18/22 13:54 Ondansetron Hcl 4 Mg/2 Ml Vial IV 07/18/22 13:35 4 mg STAT ONE Administration Ondansetron HCl Confirm 07/18/22 13:50 Ondansetron Hcl 4 Mg/2 Ml Vial Administered 07/18/22 13:51 Dose 4 mg .ROUTE .[facility]K-[facility] ONE Promethazine HCl 25 mg 07/18/22 19:26 07/19/22 03:01 Promethazine Hcl 25 Mg Tablet PO 07/18/22 19:27 Not Given QID PRN ONE Simvastatin 40 mg 07/18/22 21:53 07/18/22 22:00 Simvastatin 20 Mg Tablet PO 07/18/22 21:54 40 mg STAT ONE Administration Intake & Output (Last 24 hours) 07/17/22 07/18/22 07/19/22 07/20/22 11:59 11:59 11:59 11:59 Intake Total 2200 Output Total 240 Balance 1960 Weight 53.7 kg Laboratory Results (Last 24 hours) 07/19/22 07/19/22 07/19/22 18:00 16:03 11:40 WBC RBC Hgb Hct MCV MCH MCHC RDW Plt Count MPV Gran % Immature Gran % (Auto) Nucleat RBC Rel Count Eos # (Auto) Immature Gran # (Auto) Absolute Lymphs (auto) Absolute Monos (auto) Absolute Nucleated RBC Lymphocytes % Monocytes % Eosinophils % Basophils % Absolute Granulocytes Segmented Neutrophils Band Neutrophils Lymphocytes (Manual) Monocytes (Manual) Basophils # Platelet Estimate RBC Morphology Smear Path Review Puncture Site pCO2 pO2 Base Excess O2 Saturation ABG pH ABG HCO3 ABG O2 Sat (Measured) Luis Test A-a Gradient a/A Ratio Hemoglobin Carboxyhemoglobin Methemoglobin Potassium 4.6 Temperature POC O2 Flow Rate Sodium 135 L Chloride 105 Carbon Dioxide 24 Anion Gap 11.7 BUN 18 H Creatinine 0.66 Estimated GFR > 60.0 Glucose 109 H POC Glucometer 136 H 198 H Calcium 8.4 Total Bilirubin AST ALT Alkaline Phosphatase Troponin I Serum Total Protein Albumin 07/19/22 07/19/22 07/19/22 07:30 05:30 05:30 WBC RBC Hgb Hct MCV MCH MCHC RDW Plt Count MPV Gran % Immature Gran % (Auto) Nucleat RBC Rel Count Eos # (Auto) Immature Gran # (Auto) Absolute Lymphs (auto) Absolute Monos (auto) Absolute Nucleated RBC Lymphocytes % Monocytes % Eosinophils % Basophils % Absolute Granulocytes Segmented Neutrophils Band Neutrophils Lymphocytes (Manual) Monocytes (Manual) Basophils # Platelet Estimate RBC Morphology Smear Path Review Puncture Site pCO2 pO2 Base Excess O2 Saturation ABG pH ABG HCO3 ABG O2 Sat (Measured) Luis Test A-a Gradient a/A Ratio Hemoglobin Carboxyhemoglobin Methemoglobin Potassium 4.4 Temperature POC O2 Flow Rate Sodium 134 L Chloride 105 Carbon Dioxide 24 Anion Gap 10.1 BUN 32 H Creatinine 1.01 Estimated GFR 59.4 Glucose 145 H POC Glucometer 276 H Calcium 7.8 L D Total Bilirubin 0.30 AST 25 ALT 42 H Alkaline Phosphatase 206 H Troponin I 0.062 H* Serum Total Protein 5.1 L Albumin 2.5 L 07/19/22 07/19/22 07/19/22 05:30 05:12 02:02 WBC 21.4 H RBC 3.06 L Hgb 9.6 L D Hct 29.5 L MCV 96.4 MCH 31.4 MCHC 32.5 RDW 13.3 Plt Count 381 MPV 8.5 Gran % 67.4 H Immature Gran % (Auto) 0.7 H Nucleat RBC Rel Count 0.0 Eos # (Auto) 1.77 H Immature Gran # (Auto) 0.16 H Absolute Lymphs (auto) 3.80 Absolute Monos (auto) 1.14 Absolute Nucleated RBC 0.00 Lymphocytes % 17.7 L Monocytes % 5.3 Eosinophils % 8.3 H Basophils % 0.6 Absolute Granulocytes 14.43 H Segmented Neutrophils Band Neutrophils Lymphocytes (Manual) Monocytes (Manual) Basophils # 0.13 Platelet Estimate RBC Morphology Smear Path Review Puncture Site RIGHT BRACHIAL pCO2 30 L pO2 132 H* Base Excess -2.4 L O2 Saturation 94.6 ABG pH 7.45 ABG HCO3 20.9 L ABG O2 Sat (Measured) 100.0 Luis Test NOT APPLICABLE A-a Gradient 30 a/A Ratio 0.81 Hemoglobin 9.9 Carboxyhemoglobin 4.4 Methemoglobin 1.0 L Potassium 4.5 Temperature 37.0 POC O2 Flow Rate 28 Sodium Chloride Carbon Dioxide Anion Gap BUN Creatinine Estimated GFR Glucose POC Glucometer 135 H Calcium Total Bilirubin AST ALT Alkaline Phosphatase Troponin I Serum Total Protein Albumin 07/18/22 07/18/22 07/18/22 23:29 22:25 22:00 WBC RBC Hgb Hct MCV MCH MCHC RDW Plt Count MPV Gran % Immature Gran % (Auto) Nucleat RBC Rel Count Eos # (Auto) Immature Gran # (Auto) Absolute Lymphs (auto) Absolute Monos (auto) Absolute Nucleated RBC Lymphocytes % Monocytes % Eosinophils % Basophils % Absolute Granulocytes Segmented Neutrophils Band Neutrophils Lymphocytes (Manual) Monocytes (Manual) Basophils # Platelet Estimate RBC Morphology Smear Path Review Puncture Site pCO2 pO2 Base Excess O2 Saturation ABG pH ABG HCO3 ABG O2 Sat (Measured) Luis Test A-a Gradient a/A Ratio Hemoglobin Carboxyhemoglobin Methemoglobin Potassium Temperature POC O2 Flow Rate Sodium Chloride Carbon Dioxide Anion Gap BUN Creatinine Estimated GFR Glucose POC Glucometer 124 H 135 H Calcium Total Bilirubin AST ALT Alkaline Phosphatase Troponin I 0.065 H* Serum Total Protein Albumin 07/18/22 07/18/22 07/18/22 21:32 20:29 01:25 WBC 26.2 H* RBC 4.02 L Hgb 12.6 Hct 40.8 MCV 101.5 H MCH 31.3 MCHC 30.9 L RDW 13.6 Plt Count 534 H MPV 9.0 Gran % Immature Gran % (Auto) Nucleat RBC Rel Count Eos # (Auto) Immature Gran # (Auto) 0.20 H Absolute Lymphs (auto) Absolute Monos (auto) Absolute Nucleated RBC 0.00 Lymphocytes % Monocytes % Eosinophils % Basophils % Absolute Granulocytes Segmented Neutrophils 87 H Band Neutrophils 5 H Lymphocytes (Manual) 6 L Monocytes (Manual) 2 Basophils # Platelet Estimate INCREASED RBC Morphology NORMAL Smear Path Review Puncture Site pCO2 pO2 Base Excess O2 Saturation ABG pH ABG HCO3 ABG O2 Sat (Measured) Luis Test A-a Gradient a/A Ratio Hemoglobin Carboxyhemoglobin Methemoglobin Potassium Temperature POC O2 Flow Rate Sodium Chloride Carbon Dioxide Anion Gap BUN Creatinine Estimated GFR Glucose POC Glucometer 119 H 124 H Calcium Total Bilirubin AST ALT Alkaline Phosphatase Troponin I Serum Total Protein Albumin Orders (Last 24 hours) Category Date Time Status Clear Liquid Diet 07/19/22 Breakfast Completed Full Liquid Diet Diet 07/19/22 Lunch Active ABG [ARTERIAL BLOOD GASES] AM.LAB Lab 07/19/22 05:12 Completed BMP AM.LAB Lab 07/20/22 04:00 Ordered BMP Routine Lab 07/19/22 18:00 Completed CBC Routine Lab 07/19/22 16:05 Ordered CBC W DIFF AM.LAB Lab 07/19/22 05:30 Completed CMP AM.LAB Lab 07/19/22 05:30 Completed POCT GLUCOSE Stat Lab 07/18/22 19:35 Completed POCT GLUCOSE Stat Lab 07/18/22 20:29 Completed POCT GLUCOSE Stat Lab 07/18/22 21:32 Completed POCT GLUCOSE Stat Lab 07/18/22 22:25 Completed POCT GLUCOSE Stat Lab 07/18/22 23:29 Completed POCT GLUCOSE Stat Lab 07/19/22 02:02 Completed POCT GLUCOSE Stat Lab 07/19/22 07:30 Completed POCT GLUCOSE Stat Lab 07/19/22 11:40 Completed POCT GLUCOSE Stat Lab 07/19/22 16:03 Completed TROPONIN Q4H Lab 07/18/22 22:00 Completed TROPONIN Stat Lab 07/19/22 05:30 Completed ALPRAZolam 1 MG [Xanax 1 mg] Med 07/18/22 22:00 Active 1 mg PO HS Albuterol Common Canister [Ventolin Common Canister* Med 07/19/22 06:40 Active ] 2 puff IH Q4H PRN PRN Ceftriaxone 1 GM/50 ML PREMIX* [ROCEPHIN 1 Gm-D5w 50 ml Med 07/19/22 10:00 Active Bag] 1 g in 50 ml IV Q24H10 D5w-0.45 NaCl 1000 ml [Dextrose 5% -0.45 NaCl 1000 ML] Med 07/18/22 20:46 Discontinued 1,000 ml IV UD D5w-0.45 NaCl 1000 ml [Dextrose 5% -0.45 NaCl 1000 ML] Med 07/19/22 01:55 Discontinued 1,000 ml IV UD D5w-0.45NACL W/ 20Meq KCl [D5W/0.45NS W/ 20mEq KCl 1000 Med 07/18/22 21:00 Active ML] 1,000 ml IV 150 mls/hr Heparin Flush 500 units/5 ml [Heparin Lock Flush 500 Med 07/19/22 17:17 Discontinued Units/5ml Syringe] 500 units .ROUTE .STK-MED ONE Hydromorphone 1 mg/1Ml Inj [Hydromorphone 1 mg/ml Med 07/19/22 11:59 Active Injection] 1 mg IV Q4H PRN PRN Hydromorphone HCl/0.9% NaCl/Pf [Hydromorphone 30 mg/30 Med 07/19/22 17:55 Ordered ml-Ns PHYSICAL TRAINER] 30 mg IV .STANDARD PHYSICAL TRAINER DOSING PRN Insulin Lispro [Humalog] Med 07/19/22 11:59 Active See Dose Instructions SQ UD PRN KETOROLAC trometh 30 mg Inj [TORAdol 30 mg Injection Med 07/19/22 15:53 Active ] 30 mg IV Q6H PRN PRN PANTOPRAZOLE 40 mg Tablet [Protonix 40MG Tablet] Med 07/18/22 22:00 Active 40 mg PO HS Promethazine HCl 25 mg [Phenergan 25 mg] Med 07/18/22 19:26 Discontinued 25 mg PO QID PRN ONE Promethazine HCl 25 mg [Phenergan 25 mg] Med 07/19/22 06:39 Active 25 mg PO QID PRN PRN Simvastatin 20Mg [Zocor 20Mg] Med 07/19/22 22:00 Active 40 mg PO HS Simvastatin 20Mg [Zocor 20Mg] Med 07/18/22 21:53 Discontinued 40 mg PO STAT ONE Vancomycin HCl 500 mg Inj [Vancocin 500 mg Vial] Med 07/19/22 06:00 Acti ve 500 mg NaCl 0.9% 100 ml Mini-Bag Plus [Sodium Chloride 100ML MINI-BAG PLUS] 100 ml IV Q12H Respiratory Therapy Assessment DAILY RT 07/18/22 22:15 Active Transfer Order Routine Transfer 07/19/22 Completed Patient Care Notes (Last 24 hours) 07/19/22 12:00 Nursing Note by Nelda Valentine Dr rounded will keep one more day to observe BS pt increasing dilaudid to 1mg per pt request and starting low dose sliding scale. Initialized on 07/19/22 12:00 - END OF NOTE 07/19/22 08:40 Nursing Note by Coral Phillips CALLED [facility] AT THIS TIME AND REQUESTED THE FOLLOWING MEDICAL RECORDS PER DR. ARIAS REQUEST: OPERATIVE REPORT FROM 06/24 AND 07/14, AND PATHOLOGY REPORT FOR 06/24. Initialized on 07/19/22 08:40 - END OF NOTE 07/19/22 08:32 Nursing Note by Coral Phillips PATIENT CONTINUES TO DENY SHEPPARD CATHETER AFTER EDUCATION WAS PROVIDED. Initialized on 07/19/22 08:32 - END OF NOTE 07/19/22 07:56 Nursing Note by Tiago Siegel bld glucose 276, not covered, pt had just eaten 2 cups of jello. pt refused insulin. Initialized on 07/19/22 07:56 - END OF NOTE 07/19/22 07:37 Nursing Note by Tiago Siegel 0500 Looked back on previous visits and verified that pt had previous sheppard cath in the past visits. Educated pt on urinary retention. Per pt, I'm not getting a catheter. Despite risks vs benefits of a cath, pt cont to refuse a cath. pts at the bedside and also agreed that it would be in the best interest of pts health. pt conts to refuse cath at this time. Initialized on 07/19/22 07:37 - END OF NOTE 07/19/22 07:36 Nursing Note by Tiago Siegel 0500 Educated pt on urinary output, urinary retention. pt has only voided 250- 275ml on this shift. pt states, " Initialized on 07/19/22 07:36 - END OF NOTE 07/18/22 22:55 Nursing Note by Tiago Siegel Notified Dr Mares pt has critical trop 0.065, new order reback and verified repeat trop @ 0500. Initialized on 07/18/22 22:55 - END OF NOTE 07/18/22 20:39 Nursing Note by Tiago Siegel Notified Dr Mares that pt has a continuos 1u/hr infusion pump, at this time, the insulin drip has been paused due to bg 124. per md, change ivf to d5 0.45% ns with 20kmEq. Initialized on 07/18/22 20:39 - END OF NOTE (2) DKA (diabetic ketoacidosis) Current Visit: Yes Status: Acute Qualifiers: Diabetes mellitus type: type 2 Code(s): E11.10 - TYPE 2 DIABETES MELLITUS WITH KETOACIDOSIS WITHOUT COMA
[2022-07-19] MEDS: Protonix 40MG Tablet PO SCH (21:31)
[2022-07-19] MEDS: XANAX 1 MG PO SCH (21:31)
[2022-07-19] MEDS ORDERED: NON-FORMULARY ITEM (Atorvastatin Calcium [Atorvastatin Calcium] 80 MG Tablet) PO SCH (22:00)
[2022-07-19] MEDS ORDERED: ZOCOR 20MG PO SCH (22:00)
[2022-07-19] MEDS: Bactroban OINTMENT TP SCH (22:39)
[2022-07-20 05:10] LABS: Hematocrit 28.9 % (35-47); Hemoglobin 9.3 g/dL (12.0-16.0); Mean Cell Volume 97.3 fL (78-100); Mean Corpuscular Hemoglobin 31.3 pg (26-32); Mean Corpuscular Hgb Concent. 32.2 g/dL (32-36); Mean Platelet Volume 8.2 fL (7.5-11.0); Platelet Count 301 x10^3/uL (150-450); Red Blood Count 2.97 x10^6/uL (4.1-5.4); Red Cell Distribution Width 13.6 % (11.5-14.0); White Blood Count 13.1 x10^3/uL (4.0-10.5)
[2022-07-20] MEDS: VANCOCIN 500 MG VIAL*** 500 MG in Sodium Chloride 100ML MINI-BAG PLUS 100 ML IV SCH (05:13)
[2022-07-20] MEDS: D5W/0.45NS W/ 20mEq KCl 1000 ML 1,000 ML IV SCH (05:13)
[2022-07-20 05:41] LABS: ANION GAP 9.8 MEQ/L (5-15); BLOOD UREA NITROGEN 12 mg/dL (7-17); CHLORIDE 105 mmol/L (98-107); Carbon Dioxide 23 mmol/L (22-30); Creatinine 1 0.54 mg/dL (0.52-1.04); EST GLOMERULAR FILTRATION RATE > 60.0 ML/MIN; Glucose 253 mg/dL (74-106); Potassium 5.2 mmol/L (3.5-5.1); SODIUM 133 mmol/L (137-145)
[2022-07-20] MEDS: Advair Hfa 115/21 Common canister IH SCH (07:44)
[2022-07-20] MEDS: ROCEPHIN 1 Gm-D5w 50 ml Bag** 1 G/50 ML IVPB IV SCH (11:06)
[2022-07-20] MEDS: Bactroban OINTMENT TP SCH (11:20)
[2022-07-20 11:45] VITALS: BP 141/76; PULSE 75; O2SAT 99
[2022-07-20] MEDS ORDERED: PATIENT OWN MEDICATION SQ PRN (12:25)
--- NOTE | 2022-07-20 12:26 | PCM.DS ---
Discharge Summary Date of Admission: 07/18/22 16:51 Admitting Physician: LYUDMILA ARIAS Primary Care Provider: LYUDMILA ARIAS Allergies Allergies orphenadrine citrate [From Norflex] Allergy (Intermediate, Verified 07/13/22 03:06) severe vomiting adhesive tape Allergy (Verified 07/13/22 03:06) hydrocodone bitartrate [From Wilson] Adverse Reaction (Mild, Verified 07/18/22 13:22) nausea vomiting levofloxacin [From Levaquin] Adverse Reaction (Mild, Verified 07/13/22 03:06) Nausea and Vomiting Hospital Summary - Hospital Course Hospital Course: Chief Complaint Diagnosis DKA Allergies Allergy/AdvReac Type Severity Reaction Status Date / Time orphenadrine citrate Allergy Intermediate Verified 07/13/22 03:06 [From Norflex] adhesive tape Allergy Verified 07/13/22 03:06 hydrocodone bitartrate AdvReac Mild Verified 07/18/22 13:22 [From Wilson] levofloxacin [From Levaquin] AdvReac Mild Nausea and Verified 07/13/22 03:06 Vomiting Vital Signs (Last 24 hours) Temp Pulse Resp BP Pulse Ox 07/20/22 11:00 97.8 F 75 16 141/76 99 07/20/22 07:49 71 16 97 07/20/22 07:00 97.8 F 75 16 127/66 97 07/20/22 03:00 98.2 F 88 15 116/53 94 L 07/19/22 23:00 97.4 F 73 17 98/57 98 07/19/22 22:10 16 95 07/19/22 19:00 97.7 F 78 16 163/77 100 07/19/22 18:45 73 16 96 07/19/22 18:10 16 98 07/19/22 15:00 97.6 F 72 16 157/73 99 Home Medications Medication Instructions Recorded Confirmed Last Taken Type ALPRAZolam 1 MG [Xanax 1 mg] 1 mg PO HS 07/18/22 07/18/22 Unknown History Atorvastatin Calcium 80 mg PO HS 07/18/22 07/18/22 Unknown History Gabapentin [Neurontin ] 200 mg PO BID 07/18/22 07/18/22 07/18/22 History Current Medications Generic Name Dose Route Start Last Admin Trade Name Freq PRN Reason Stop Dose Admin Albuterol Sulfate 2 puff 07/19/22 06:40 Albuterol Common Canister Inhaler IH 08/18/22 06:39 Q4H PRN PRN cough or wheeze Alprazolam 1 mg 07/18/22 22:00 07/19/22 21:31 Alprazolam 1 Mg Tablet PO 08/17/22 21:59 1 mg HS NISSA Administration Hydromorphone/Sodium Chloride 30 mg 07/19/22 17:55 07/19/22 18:10 Hydromorphone/Nacl/Pf 30 Mg/30 Ml Vp Account Director.Syring IV 08/18/22 17:54 30 mg .STANDARD FORENSIC TOXICOLOGIST DOSING PRN Administration PAIN Insulin Human Regular 100 unit 100 mls @ 5.32 mls/hr 07/18/22 13:34 07/18/22 20:38 / Sodium Chloride IV 08/17/22 13:33 0 unit/kg/hr .[id number] PRN 0 mls/hr DKA/HYPERGLYCEMIA Titration Protocol 0.1 UNIT/KG/HR Ceftriaxone Sodium/Dextrose 1 g in 50 mls @ 100 mls/hr 07/19/22 10:00 07/20/22 11:06 Rocephin 1 Gm-D5w 50 Ml Bag IV 07/22/22 09:59 100 mls/hr Q24H10 NISSA Administration Vancomycin HCl 500 mg/ Sodium 100 mls @ 100 mls/hr 07/19/22 06:00 07/20/22 05:13 Chloride IV 08/18/22 05:59 100 mls/hr Q12H NISSA Administration Potassium Chloride/Dextrose/Sod Cl 1,000 mls @ 150 mls/hr 07/18/22 21:00 07/20/22 05:13 D5w/0.45ns W/ 20meq Kcl 1000 Ml IV 08/17/22 20:59 150 mls/hr .Q6H40M NISSA Administration Insulin Human Lispro 0 unit 07/19/22 11:59 Insulin Lispro 1 Unit SQ 08/18/22 11:58 UD PRN HYPERGLYCEMIA Ketorolac Tromethamine 30 mg 07/19/22 15:53 07/19/22 16:01 Ketorolac Tromethamine 30 Mg/Ml Inj IV 07/24/22 15:52 30 mg Q6H PRN PRN Administration PAIN Mupirocin 1 gm 07/19/22 22:00 07/20/22 11:20 Mupirocin 22 Gm Tube Ointment TP 08/18/22 21:59 Not Given BID NISSA Ondansetron HCl 4 mg 07/18/22 16:11 Ondansetron Hcl 4 Mg/2 Ml Vial IV 08/17/22 16:10 Q6H PRN PRN NAUSEA/VOMITING Pantoprazole Sodium 40 mg 07/18/22 22:00 07/19/22 21:31 Protonix (Pantoprazole) 40 Mg Tablet PO 08/17/22 21:59 40 mg HS NISSA Administration Promethazine HCl 25 mg 07/19/22 06:39 Promethazine Hcl 25 Mg Tablet PO 08/18/22 06:38 QID PRN PRN nausea Fluticasone/Salmeterol 2 puff 07/18/22 19:00 07/20/22 07:44 Fluticasone/Salmeterol 115/21 - 120 Puff Common Canister IH 08/17/22 18:59 2 puff BIDRT NISSA Administration Simvastatin 40 mg 07/19/22 22:00 07/19/22 21:31 Simvastatin 20 Mg Tablet PO 08/18/22 21:59 40 mg HS NISSA Administration Discontinued Medications Generic Name Dose Route Start Last Admin Trade Name Freq PRN Reason Stop Dose Admin Fentanyl Citrate 75 mcg 07/18/22 13:37 07/18/22 13:53 Fentanyl Citrate 100 Mcg/2 Ml* Vial IV 07/18/22 13:38 75 mcg STAT ONE Administration Fentanyl Citrate Confirm 07/18/22 13:51 Fentanyl Citrate 100 Mcg/2 Ml* Vial Administered 07/18/22 13:52 Dose 100 mcg .ROUTE .STK-MED ONE Heparin Sodium (Beef Lung) Confirm 07/19/22 17:17 Heparin Lock Flush Pf 500 Units/5 Ml Syringe Administered 07/19/22 17:18 Dose 500 units .ROUTE .STK-MED ONE Hydromorphone HCl 0.5 mg 07/18/22 18:54 07/19/22 08:35 Hydromorphone 1 Mg/1ml Inj 1 Mg/Ml Syringe IV 07/23/22 18:53 0.5 mg Q4H PRN PRN Administration PAIN Hydromorphone HCl 1 mg 07/19/22 11:59 07/19/22 17:30 Hydromorphone 1 Mg/1ml Inj 1 Mg/Ml Syringe IV 07/24/22 11:58 1 mg Q4H PRN PRN Administration PAIN Sodium Chloride 1,000 mls @ 999 mls/hr 07/18/22 12:56 07/18/22 14:35 Sodium Chloride 0.9% 1000 Ml IV 07/18/22 13:56 Infused .Q1H1M STA Infusion Sodium Chloride Confirm 07/18/22 13:30 Sodium Chloride 0.9% 1000 Ml Administered 07/18/22 13:31 Dose 1,000 mls @ ud .ROUTE .STK-MED ONE Sodium Chloride 1,000 mls @ 999 mls/hr 07/18/22 13:34 07/18/22 16:26 Sodium Chloride 0.9% 1000 Ml IV 07/18/22 14:34 Infused .Q1H1M STA Infusion Ceftriaxone Sodium/Dextrose 1 g in 50 mls @ 100 mls/hr 07/18/22 13:51 3 15:53 Rocephin 1 Gm-D5w 50 Ml Bag IV 07/18/22 14:20 Infused STAT STA Infusion Vancomycin HCl 1 gm in 200 mls @ 125 mls/hr 07/18/22 13:53 07/18/22 15:54 Vancomycin 1 Gram/200 Ml Bag IV 07/18/22 15:28 125 mls/hr STAT ONE 125 mls/hr Administration Sodium Chloride Confirm 07/18/22 14:52 Sodium Chloride 0.9% 1000 Ml Administered 07/18/22 14:53 Dose 1,000 mls @ ud .ROUTE .STK-MED ONE Ceftriaxone Sodium/Dextrose Confirm 07/18/22 14:53 Rocephin 1 Gm-D5w 50 Ml Bag Administered 07/18/22 14:54 Dose 1 g in 50 mls @ ud IV .STK-MED ONE Vancomycin HCl Confirm 07/18/22 15:53 Vancomycin 1 Gram/200 Ml Bag Administered 07/18/22 15:54 Dose 1 gm in 200 mls @ ud IV .STK-MED ONE Vancomycin HCl 1 gm in 200 mls @ 125 mls/hr 07/18/22 16:15 Vancomycin 1 Gram/200 Ml Bag IV 08/17/22 16:14 Q12H NISSA Sodium Chloride 1,000 mls @ 150 mls/hr 07/18/22 19:00 07/18/22 19:00 Sodium Chloride 0.9% 1000 Ml IV 08/17/22 18:59 150 mls/hr .Q6H40M NISSA Administration Dextrose/Sodium Chloride Confirm 07/18/22 20:46 Dextrose 5% -0.45 Nacl 1000 Ml Administered 07/18/22 20:47 Dose 1,000 mls @ ud IV .STK-MED ONE Dextrose/Sodium Chloride Confirm 07/19/22 01:55 Dextrose 5% -0.45 Nacl 1000 Ml Administered 07/19/22 01:56 Dose 1,000 mls @ ud IV .STK-MED ONE Sodium Chloride Confirm 07/18/22 18:59 Sodium Chloride 0.9% 1000 Ml Administered 07/18/22 19:00 Dose 1,000 mls @ ud .ROUTE .STK-MED ONE Insulin Human Regular 5 unit 07/18/22 13:34 07/18/22 13:54 Insulin Regular, Human 1 Unit IV 07/18/22 13:35 5 unit STAT ONE Administration Insulin Human Regular Confirm 07/18/22 13:51 Insulin Regular, Human 1 Unit Administered 07/18/22 13:52 Dose 5 unit .ROUTE .STK-MED ONE Lidocaine HCl Confirm 07/18/22 17:08 Lidocaine - Mpf 2% 5 Ml Vial Administered 07/18/22 17:09 Dose 5 ml .ROUTE .STK-MED ONE Ondansetron HCl 4 mg 07/18/22 13:34 07/18/22 13:54 Ondansetron Hcl 4 Mg/2 Ml Vial IV 07/18/22 13:35 4 mg STAT ONE Administration Ondansetron HCl Confirm 07/18/22 13:50 Ondansetron Hcl 4 Mg/2 Ml Vial Administered 07/18/22 13:51 Dose 4 mg .ROUTE .STK-MED ONE Promethazine HCl 25 mg 07/18/22 19:26 07/19/22 03:01 Promethazine Hcl 25 Mg Tablet PO 07/18/22 19:27 Not Given QID PRN ONE Simvastatin 40 mg 07/18/22 21:53 07/18/22 22:00 Simvastatin 20 Mg Tablet PO 07/18/22 21:54 40 mg STAT ONE Administration Intake & Output (Last 24 hours) 07/18/22 07/19/22 07/20/22 07/21/22 11:59 11:59 11:59 11:59 Intake Total 2200 6353 Output Total 240 1850 Balance 1960 4503 Weight 53.7 kg Laboratory Results (Last 24 hours) 07/20/22 07/20/22 07/20/22 11:28 07:06 05:13 WBC 13.1 H RBC 2.97 L Hgb 9.3 L Hct 28.9 L MCV 97.3 MCH 31.3 MCHC 32.2 RDW 13.6 Plt Count 301 MPV 8.2 Immature Gran # (Auto) Absolute Nucleated RBC Segmented Neutrophils Band Neutrophils Lymphocytes (Manual) Monocytes (Manual) Platelet Estimate RBC Morphology Smear Path Review Sodium Potassium Chloride Carbon Dioxide Anion Gap BUN Creatinine Estimated GFR Glucose POC Glucometer 166 H 209 H Calcium 07/20/22 07/19/22 07/19/22 05:13 21:02 18:00 WBC RBC Hgb Hct MCV MCH MCHC RDW Plt Count MPV Immature Gran # (Auto) Absolute Nucleated RBC Segmented Neutrophils Band Neutrophils Lymphocytes (Manual) Monocytes (Manual) Platelet Estimate RBC Morphology Smear Path Review Sodium 133 L 135 L Potassium 5.2 H 4.6 Chloride 105 105 Carbon Dioxide 23 24 Anion Gap 9.8 11.7 BUN 12 18 H Creatinine 0.54 0.66 Estimated GFR > 60.0 > 60.0 Glucose 253 H 109 H POC Glucometer 144 H Calcium 8.0 L 8.4 07/19/22 07/18/22 16:03 01:25 WBC 26.2 H* RBC 4.02 L Hgb 12.6 Hct 40.8 MCV 101.5 H MCH 31.3 MCHC 30.9 L RDW 13.6 Plt Count 534 H MPV 9.0 Immature Gran # (Auto) 0.20 H Absolute Nucleated RBC 0.00 Segmented Neutrophils 87 H Band Neutrophils 5 H Lymphocytes (Manual) 6 L Monocytes (Manual) 2 Platelet Estimate INCREASED RBC Morphology NORMAL Smear Path Review Sodium Potassium Chloride Carbon Dioxide Anion Gap BUN Creatinine Estimated GFR Glucose POC Glucometer 136 H Calcium Orders (Last 24 hours) Category Date Time Status BMP AM.LAB Lab 07/20/22 05:13 Completed BMP Routine Lab 07/19/22 18:00 Completed CBC Routine Lab 07/20/22 05:13 Completed POCT GLUCOSE Stat Lab 07/19/22 11:40 Completed POCT GLUCOSE Stat Lab 07/19/22 16:03 Completed POCT GLUCOSE Stat Lab 07/19/22 21:02 Completed POCT GLUCOSE Stat Lab 07/20/22 07:06 Completed POCT GLUCOSE Stat Lab 07/20/22 11:28 Completed Heparin Flush 500 units/5 ml [Heparin Lock Flush 500 Med 07/19/22 17:17 Discontinued Units/5ml Syringe] 500 units .ROUTE .STK-MED ONE Hydromorphone 1 mg/1Ml Inj [Hydromorphone 1 mg/ml Med 07/19/22 11:59 Discontinued Injection] 1 mg IV Q4H PRN PRN Hydromorphone HCl/0.9% NaCl/Pf [Hydromorphone 30 mg/30 Med 07/19/22 17:55 Active ml-Ns FORENSIC TOXICOLOGIST] 30 mg IV .STANDARD FORENSIC TOXICOLOGIST DOSING PRN Insulin Lispro [Humalog] Med 07/19/22 11:59 Active See Dose Instructions SQ UD PRN KETOROLAC trometh 30 mg Inj [TORAdol 30 mg Injection Med 07/19/22 15:53 Active ] 30 mg IV Q6H PRN PRN Mupirocin [Bactroban OINTMENT] Med 07/19/22 22:00 Active 1 gm TP BID Simvastatin 20Mg [Zocor 20Mg] Med 07/19/22 22:00 Active 40 mg PO HS Patient Care Notes (Last 24 hours) 07/20/22 12:09 Nursing Note by Eugenie Tejada is here rounding on patient. Initialized on 07/20/22 12:09 - END OF NOTE 07/20/22 11:06 Case Management Note by Arianna Baker S/W PATIENT- SHE CONTINUES TO DENY ANY NEW NEEDS AT TIME OF DC. SHE PLANS TO RETURN HOME TO HER PLF AT TIME OF DC. SHE REPORTS HER KIDS LIVE CLOSE AND HELP HER NEEDED Initialized on 07/20/22 11:06 - END OF NOTE 07/19/22 20:32 Nursing Note by Tiago Siegel Received a call from Dr Lee for additional orders on pts wounds from the chest tube from previous surgery. Apply Mupriocin bid to affected areas. telephone order read back and verified. Initialized on 07/19/22 20:32 - END OF NOTE 07/19/22 20:30 (created 07/19/22 21:03) Nursing Note by Nelda Valentine pt complaining of increasing pain to left side wherre she has 2 open wounds noted from chest tubes that were placed approx 1.5 weeks ago when she underwent a lobectomy. MD rounded on pt at 1230 and increased Dilaudid to 1mg for 05 q4. PT given new dose with improved decrease in pain from a 10 to 5 though she repor ts it only last about 30 min to 1 hour. This nurse called Dr Arias and new order for Toradol 30mg IV q6 received. 1600 PT given Tordadol with some relief pain went 10 down to 8. Pt refusing to do her deep breating and cough. PT also very guarded when coughing unable to clear wheezing. Education done on importance of DBC following lobectomy. PT reports understanding though states "pain is to bad". 1800 this RN called MD and asked about adding an oral medication for breakthrough. ordered FORENSIC TOXICOLOGIST instead and asked that Dr. Geller (pt's surgeon) be notified of the increasing pain, sepsis diagnosis and purulent drainage noted to site for possible transfer to [facility]. 2009 this RN spoke with Dr. Geller wh0 wanted more information and wanted to access his records made aware of situation though stated he had to call us back. Dr Geller called back and spoke with Milton RN see related note. Initialized on 07/19/22 21:03 - END OF NOTE - Vitals & Intake/Output Vital Signs: Vital Signs Temperature 97.8 F 07/20/22 11:00 Pulse Rate 75 07/20/22 11:00 Respiratory Rate 16 07/20/22 11:00 Blood Pressure 141/76 07/20/22 11:00 O2 Sat by Pulse Oximetry 99 07/20/22 11:00 Intake & Output: Intake & Output 07/18/22 07/19/22 07/20/22 07/21/22 11:59 11:59 11:59 11:59 Intake Total 2200 6353 Output Total 240 1850 Balance 1960 4503 Weight 53.7 kg - Lab Result Diagrams: 07/20/22 05:13 07/20/22 05:13 Lab Results-Last 24 Hrs: Lab Results-Last 24 Hours 07/18/22 07/19/22 07/19/22 Range/Units 01:25 16:03 18:00 WBC 26.2 H* (4.0-10.5) x10^3/uL RBC 4.02 L (4.1-5.4) x10^6/uL Hgb 12.6 (12.0-16.0) g/dL Hct 40.8 (35-47) % MCV 101.5 H (78-100) fL MCH 31.3 (26-32) pg MCHC 30.9 L (32-36) g/dL RDW 13.6 (11.5-14.0) % Plt Count 534 H (150-450) x10^3/uL MPV 9.0 (7.5-11.0) fL Immature Gran # (Auto) 0.20 H (0.00-0.03) x10^3u/L Absolute Nucleated RBC 0.00 (0.00-0.01) x10^3u/L Segmented Neutrophils 87 H (36.0-66.0) % Band Neutrophils 5 H (0.0-2.0) % Lymphocytes (Manual) 6 L (24-44) % Monocytes (Manual) 2 (0.0-12.0) % Platelet Estimate INCREASED (NORMAL) RBC Morphology NORMAL Smear Path Review Sodium 135 L (137-145) mmol/L Potassium 4.6 (3.5-5.1) mmol/L Chloride 105 (98-107) mmol/L Carbon Dioxide 24 (22-30) mmol/L Anion Gap 11.7 (5-15) MEQ/L BUN 18 H (7-17) mg/dL Creatinine 0.66 (0.52-1.04) mg/dL Estimated GFR > 60.0 ML/MIN Glucose 109 H (74-106) mg/dL POC Glucometer 136 H (74 to 106) mg/dL Calcium 8.4 (8.4-10.2) mg/dL 07/19/22 07/20/22 07/20/22 Range/Units 21:02 05:13 05:13 WBC 13.1 H (4.0-10.5) x10^3/uL RBC 2.97 L (4.1-5.4) x10^6/uL Hgb 9.3 L (12.0-16.0) g/dL Hct 28.9 L (35-47) % MCV 97.3 (78-100) fL MCH 31.3 (26-32) pg MCHC 32.2 (32-36) g/dL RDW 13.6 (11.5-14.0) % Plt Count 301 (150-450) x10^3/uL MPV 8.2 (7.5-11.0) fL Immature Gran # (Auto) (0.00-0.03) x10^3u/L Absolute Nucleated RBC (0.00-0.01) x10^3u/L Segmented Neutrophils (36.0-66.0) % Band Neutrophils (0.0-2.0) % Lymphocytes (Manual) (24-44) % Monocytes (Manual) (0.0-12.0) % Platelet Estimate (NORMAL) RBC Morphology Smear Path Review Sodium 133 L (137-145) mmol/L Potassium 5.2 H (3.5-5.1) mmol/L Chloride 105 (98-107) mmol/L Carbon Dioxide 23 (22-30) mmol/L Anion Gap 9.8 (5-15) MEQ/L BUN 12 (7-17) mg/dL Creatinine 0.54 (0.52-1.04) mg/dL Estimated GFR > 60.0 ML/MIN Glucose 253 H (74-106) mg/dL POC Glucometer 144 H (74 to 106) mg/dL Calcium 8.0 L (8.4-10.2) mg/dL 07/20/22 07/20/22 Range/Units 07:06 11:28 WBC (4.0-10.5) x10^3/uL RBC (4.1-5.4) x10^6/uL Hgb (12.0-16.0) g/dL Hct (35-47) % MCV (78-100) fL MCH (26-32) pg MCHC (32-36) g/dL RDW (11.5-14.0) % Plt Count (150-450) x10^3/uL MPV (7.5-11.0) fL Immature Gran # (Auto) (0.00-0.03) x10^3u/L Absolute Nucleated RBC (0.00-0.01) x10^3u/L Segmented Neutrophils (36.0-66.0) % Band Neutrophils (0.0-2.0) % Lymphocytes (Manual) (24-44) % Monocytes (Manual) (0.0-12.0) % Platelet Estimate (NORMAL) RBC Morphology Smear Path Review Sodium (137-145) mmol/L Potassium (3.5-5.1) mmol/L Chloride (98-107) mmol/L Carbon Dioxide (22-30) mmol/L Anion Gap (5-15) MEQ/L BUN (7-17) mg/dL Creatinine (0.52-1.04) mg/dL Estimated GFR ML/MIN Glucose (74-106) mg/dL POC Glucometer 209 H 166 H (74 to 106) mg/dL Calcium (8.4-10.2) mg/dL Micro Results-Entire Visit: Accuchecks Date 07/20/22 Date 07/20/22 Date 07/19/22 Date 07/19/22 Time 21:00 Time 16:51 - Radiology Exams Ordered Rad Exams-Entire Visit: Radiology Procedures Category Date Time Status CHEST 1 VIEW (PORTABLE) Stat Exams 07/18/22 12:56 Completed - Procedures and Test Procedures and Tests throughout Hospitalization: Therapy Orders & Screens 07/18/22 16:11 Oxygen Nasal Cannula 2 lpm Comment: 07/18/22 18:32 OT Screen per Nursing Assess ONCE Comment: Protocol Order Physician Instructions: Greater than 3 points order OT Admission Screening Reason For Exam: Triggered on Admission Diagnosis: DKA Open Wound/Cellutlitis/Pressure Ulcers: Yes Acute Fx/ORIF/Change in wt bearing status: No Severe MUSCULOSKELETAL pain: No ADL Dysfunction: No Acute CVA w/Hemiparesis/Hemiplegia: No Decreased Functional Mobility/Strength: No Sprain/Strain: No Acute Post-op Mobility Dysfunction: No Total Points: 5 PT Screen per Nursing Assess ONCE Comment: Protocol Order Physician Instructions: Greater than 3 points order PT Admission Screenin Reason For Exam: Triggered on Admission Diagnosis: DKA Open Wound/Cellutlitis/Pressure Ulcers: Yes Acute Fx/ORIF/Change in wt bearing status: No Severe MUSCULOSKELETAL pain: No ADL Dysfunction: No Acute CVA w/Hemiparesis/Hemiplegia: No Decreased Functional Mobility/Strength: No Sprain/Strain: No Acute Post-op Mobility Dysfunction: No Total Points: 5 Smoking Cessation Education ONCE Comment: Diagnosis: DKA Smoking Status: Current every day smoker How long have you smoked: 30 YEARS Have you smoked in the past 12 months: Yes Approximately how many cigarettes per day: 20 Do you dip or chew tobacco: No 07/18/22 22:15 Respiratory Therapy Assessment DAILY Comment: Diagnosis: DKA Discharge Exam General Appearance: no apparent distress, alert Neurologic Exam: alert, oriented x 3, cooperative, normal mood/affect, nml cerebellar function, sensation nml, No motor deficits Eye Exam: PERRL, EOMI, eyes nml inspection Ears, Nose, Throat Exam: normal ENT inspection, pharynx normal, moist mucous membranes Neck Exam: normal inspection, non-tender, supple, full range of motion Respiratory Exam: normal breath sounds, lungs clear, No respiratory distress Cardiovascular Exam: regular rate/rhythm, normal heart sounds Gastrointestinal/Abdomen Exam: soft, No tenderness, No mass Pelvic Exam: deferred Rectal Exam: deferred Back Exam: normal inspection, normal range of motion, No CVA tenderness, No vertebral tenderness Extremity Exam: normal inspection, normal range of motion Skin Exam: normal color, warm, dry Wound Assessment: Skin/Wound Assessment Wound/Incision Assessment Start: 07/18/22 18:32 Text: Status: Active Freq: Q6H Protocol: Document 07/20/22 08:00 RE (Rec: 07/20/22 10:17 RE [id number]) Wound/Incision Assessment Left Lateral Chest Wound Type Incision Comment Approx 2.5inch long incision noted under lateral edge of left breast. Area is well approximated and surgical glue noted. Left Lateral Abdomen Wound Type Incision Wound Stage Non Pressure Wound Dressing Status Dry & Intact Drainage Amount Minimal Drainage Description Purulent Drainage Odor None/Absent Length (cm) (cm) 1 Width (cm) (cm) 0.5 Comment PT has 2 surgical incisions noted to left flank area approx 1.5 inces apart. Both messuring 1cm x 0.5cm open wounds (left open per surgeon) minimal drainage noted with redness noted to margins of both Right Neck Wound Assessment Shift Assessment Wound Type Incision Comment port placement 1 week ago per pt. area is well approximated with skin glue noted. no signs of infection noted Wound Photo Photo Taken No Final Diagnosis/Problem List - Final Discharge Diagnosis/Problem (1) Sepsis Current Visit: Yes Status: Resolved (2) DKA (diabetic ketoacidosis) Current Visit: Yes Status: Resolved Code(s): E11.10 - TYPE 2 DIABETES MELLITUS WITH KETOACIDOSIS WITHOUT COMA (3) Wound cellulitis after surgery Current Visit: Yes Status: Acute Code(s): T81.49XA - INFECTION FOLLOWING A PROCEDURE, OTHER SURGICAL SITE, INIT - Discharge Discharge Date: 07/20/22 Disposition: Home, Self-Care Condition: Stable Prescriptions: New Oxycodone HCl/Acetaminophen [Percocet 10-325 mg Tablet] 1 each PO Q6H #30 tablet MDD 4 Linezolid [Zyvox] 600 mg PO BID #20 tablet No Action Insulin Lispro [Humalog] 1 unit SQ UD Albuterol Sulfate [Albuterol Sulfate Hfa] 2 puff IH Q4-6HPRN PRN #1 hfa.aer.ad PRN Reason: cough or wheeze Cyclobenzaprine HCl 10 mg [Cyclobenzaprine 10 MG] 10 mg PO QID PRN PRN Reason: Pain Promethazine HCl 25 mg [Phenergan 25 mg] 25 mg PO QID PRN PRN Reason: Nausea cilostazoL [Cilostazol] 50 mg PO BID PANTOPRAZOLE 40 mg Tablet [Protonix 40MG Tablet] 1 tab PO HS Sulfamethoxazole/Trimethoprim [Bactrim Ds Tablet] 1 each PO BID 10 Days #20 tablet Tramadol HCl 50 mg [Ultram 50 mg] 50 mg PO Q6H PRN 7 Days #28 tablet PRN Reason: Severe Pain Atorvastatin Calcium 80 mg PO HS ALPRAZolam 1 MG [Xanax 1 mg] 1 mg PO HS Gabapentin [Neurontin ] 200 mg PO BID Follow up with: LYUDMILA ARIAS MD [Primary Care Provider] - 7 Days
[2022-07-20] MEDS ORDERED: TROUGH DRUG LEVELS IJ ONE (17:30)
== END 2022-07-20 13:13 | disposition home or self-care (01) ==
LOC: ED 12:53 → ICU 16:51 → MED SURG 07-19 13:33
PROVIDERS: ADMIT General Practice; ATTEND General Practice
DX: A41.52 Sepsis due to Pseudomonas (principal); J96.01 Acute respiratory failure with hypoxia; E11.10 Type 2 diabetes mellitus with ketoacidosis without coma; T81.49XA Infection following a procedure, other surgical site, initial encounter; S21.112A Laceration without foreign body of left front wall of thorax without penetration into thoracic cavity, initial encounter; S31.114A Laceration without foreign body of abdominal wall, left lower quadrant without penetration into peritoneal cavity, initial encounter; S11.91XA Laceration without foreign body of unspecified part of neck, initial encounter; Z79.899 Other long term (current) drug therapy; Z20.828 Contact with and (suspected) exposure to other viral communicable diseases; Z72.0 Tobacco use; Z85.118 Personal history of other malignant neoplasm of bronchus and lung; I25.10 Atherosclerotic heart disease of native coronary artery without angina pectoris; E78.5 Hyperlipidemia, unspecified; I10 Essential (primary) hypertension
CPT/HCPCS: 0241U; 36000; 36415; 36600; 71045; 76942; 80048; 80053; 81001; 82375; 82803; 82805; 82947; 83605; 83735; 84134; 84145; 84484; 85025; 85027; 87040; 93005; 93268; 94640; 94760; 96360; 96361; 96365; 96367; 96374; 96375; 99285; 99291; 99292; G0378; J0696; J1170; J1642; J1815; J1885; J2405; J3010; J3370; A9270-GY

== ENCOUNTER 2022-08-13 17:11 | Emergency (ER) | payer BC ==
[2022-08-13 17:35] VITALS: O2SAT 98
[2022-08-13] MEDS ORDERED: TORAdol 30 mg Injection IM ONE (17:52)
[2022-08-13] MEDS ORDERED: Hydromorphone 1 mg/ml Injection IM ONE (17:52)
[2022-08-13] MEDS ORDERED: Hydromorphone 1 mg/ml Injection ONE (18:01)
[2022-08-13] MEDS ORDERED: TORAdol 30 mg Injection ONE (18:01)
--- NOTE | 2022-08-13 18:01 | ERPHSYRPT ---
- History of Present Illness Time Seen by Provider: 08/13/22 17:53 Source: patient, family Exam Limitations: no limitations Patient Subjective Stated Complaint: pt here for pain to left side of chest where chest tube insertion site was, she has lobectomy 11 weeks ago for lung ca, and is undergoing chemo Triage Nursing Assessment: pt walked in, alert, resp easy, skin w/d/p. no cough, no sob, no edema noted, able to undress self, no redness or drainage from chest tube insertikon site Physician History: pt here for pain to left side of chest where chest tube insertion site was, she has lobectomy 11 weeks ago for lung ca, and is undergoing chemotherapy Timing/Duration: week(s) Severity: moderate Associated Symptoms: denies symptoms Allergies/Adverse Reactions: orphenadrine citrate [From Norflex] Allergy (Intermediate, Verified 08/13/22 17:35) severe vomiting adhesive tape Allergy (Verified 08/13/22 17:35) hydrocodone bitartrate [From [place]] Adverse Reaction (Mild, Verified 08/13/22 17:35) nausea vomiting levofloxacin [From Levaquin] Adverse Reaction (Mild, Verified 08/13/22 17:35) Nausea and Vomiting Home Medications: Insulin Lispro [Humalog] 1 unit SQ UD 11/14/16 [History] Cyclobenzaprine HCl 10 mg [Cyclobenzaprine 10 MG] 10 mg PO QID PRN 02/13/19 [History] Promethazine HCl 25 mg [Phenergan 25 mg] 25 mg PO QID PRN 07/17/21 [History] cilostazoL [Cilostazol] 50 mg PO BID 07/25/21 [History] PANTOPRAZOLE 40 mg Tablet [Protonix 40MG Tablet] 1 tab PO HS 07/13/22 [History] ALPRAZolam 1 MG [Xanax 1 mg] 1 mg PO HS 07/18/22 [History] Atorvastatin Calcium 80 mg PO HS 07/18/22 [History] Gabapentin [Neurontin ] 200 mg PO BID 07/18/22 [History] Hx Tetanus, Diphtheria Vaccination/Date Given: No Hx Influenza Vaccination/Date Given: Yes Hx Pneumococcal Vaccination/Date Given: Yes Immunizations Up to Date: Yes Travel Risk - International Travel Have you traveled outside of the country in past 3 weeks: No - Coronavirus Screening Are you exhibiting any of the following symptoms?: No - Vaccine Status Have you recieved a Covid-19 vaccination: Yes [employer]: Moderna - Vaccination Dates Date of 2cond Vaccination (if applicable): 2021 - Review of Systems Constitutional: No Fever, No Chills Eyes: No Symptoms Ears, Nose, & Throat: No Symptoms Respiratory: Other (chestwall pain left side at thoracotomy tube insertion), No Cough, No Dyspnea Cardiac: No Chest Pain, No Edema, No Syncope Abdominal/Gastrointestinal: No Abdominal Pain, No Nausea, No Vomiting, No Diarrhea Genitourinary Symptoms: No Dysuria Musculoskeletal: No Back Pain, No Neck Pain Skin: No Rash Neurological: No Dizziness, No Focal Weakness, No Sensory Changes Psychological: No Symptoms Endocrine: No Symptoms All Other Systems: Reviewed and Negative - Past Medical History Pertinent Past Medical History: Yes Neurological History: No Pertinent History ENT History: No Pertinent History Cardiac History: Coronary Artery Disease, High Cholesterol, Hypertension Respiratory History: Asthma, Bronchitis, COPD, Emphysema, Lung Cancer, Pneumonia Endocrine Medical History: Diabetes Type I, Hypoglycemia Musculoskeletal History: Fractures GI Medical History: GERD History: Renal Disease Psycho-Social History: Anxiety, Depression Female Reproductive Disorders: No Pertinent History Other Medical History: Previous R 3rd left leg fx many years ago,rt wrist fx with cast - Past Surgical History Past Surgical History: Yes Neuro Surgical History: No Pertinent History Cardiac: Cardiac Catheterization, Cardiac Stent Respiratory: Lobectomy Gastrointestinal: Cholecystectomy Genitourinary: No Pertinent History Musculoskeletal: Other Female Surgical History: Tubal Ligation Other Surgical History: BUNONECTOMY. BACK SURGERY X2, right upper chest port placement. LL lung lobectomy - Social History Smoking Status: Current every day smoker How long have you smoked: 30 YEARS Exposure to second hand smoke: Yes Alcohol Use: None Drug Use: none Patient Lives Alone: No Significant Family History: heart disease, diabetes, hypertension - Nursing Vital Signs Nursing Vital Signs: Initial Vital Signs Respiratory Rate 20 08/13/22 17:33 O2 Sat by Pulse Oximetry 97 08/13/22 17:33 Pain Scale Pain Intensity 4 - Physical Exam General Appearance: no apparent distress, alert Eye Exam: PERRL/EOMI, eyes nml inspection Ears, Nose, Throat Exam: normal ENT inspection, TMs normal, pharynx normal, moist mucous membranes Neck Exam: normal inspection, non-tender, supple, full range of motion Respiratory Exam: diminished breath sounds, other (left side tenderness on chestwall), No respiratory distress Cardiovascular Exam: regular rate/rhythm, normal heart sounds, normal peripheral pulses Gastrointestinal/Abdomen Exam: soft, normal bowel sounds, No tenderness, No mass Back Exam: normal inspection, normal range of motion, No CVA tenderness, No vertebral tenderness Extremity Exam: normal inspection, normal range of motion, pelvis stable Neurologic Exam: alert, oriented x 3, cooperative, normal mood/affect, nml cerebellar function, nml station & gait, sensation nml, No motor deficits Skin Exam: normal color, warm, dry, No rash Lymphatic Exam: No adenopathy SpO2: 98 - Course Nursing assessment & vital signs reviewed: Yes Ordered Tests: Medication Summary Discontinued Medications Generic Name Dose Route Start Last Admin Trade Name Freq PRN Reason Stop Dose Admin Hydromorphone HCl 1 mg 08/13/22 17:52 Hydromorphone 1 Mg/1ml Inj 1 Mg/Ml Syringe IM 08/13/22 17:53 STAT ONE Ketorolac Tromethamine 60 mg 08/13/22 17:52 Ketorolac Tromethamine 30 Mg/Ml Inj IM 08/13/22 17:53 STAT ONE - Progress Progress: improved, pain not gone completely Counseled pt/family regarding: diagnosis, need for follow-up Medical Desision Making - Independent Historian Additional History obtained from: Family - Discussion of managment Agreed on:: Treatment plan, need for follow-up - Diagnostic Testing Diagnostic test were ordered, analyzed, and reviewed by me: No - Risk of complications Low Risk: Low risk of morbidity from additional dx testing or treatment - Departure Departure Disposition: Home Clinical Impression: Adhesive pleuritis Condition: Stable Critical Care Time: No Referrals: LYUDMILA ARIAS MD [Primary Care Provider] - Follow up/PCP as directed Additional Instructions: Discharge/Care Plan NANNETTE MEDINA was seen on 08/13/22 in the Emergency Room. The patient was counseled regarding Diagnosis,Lab results, Imaging studies, need for follow up and when to return to the Emergency Room. Prescriptions given: Discharge Note I have spoken with the patient and/or caregivers. I have explained the patient's condition, diagnosis and treatment plan based on the information available to me at this time. I have answered the patient's and/or caregiver's questions and addressed any concerns. The patient and/or caregivers have as good understanding of the patient's diagnosis, condition and treatment plan as can be expected at this point. The vital signs have been stable. The patient's condition is stable and appropriate for discharge from the emergency department. The patient will pursue further outpatient evaluation with the primary care physician or other designated or consulting physician as outlined in the discharge instructions. The patient and/or caregivers are agreeable to this plan of care and follow-up instructions have been explained in detail. The patient and/or caregivers have received these instruction. The patient/and or caregivers are aware that any significant change in condition or worsening of symptoms should prompt an immediate return to this or the closest emergency department or call 911. NANNETTE MEDINA was seen on 08/13/22 n the Emergency Room. At that time you were treated for an emergent condition, during your visit Laboratory, Radiology and/or other procedures may have been ordered. It is very important that you follow-up with your Primary Care Physician LYUDMILA ARIAS within the next 24-48 hours to review your Emergency Room visit and the final results of testing that was ordered. Some test results such as Urine Cultures, Blood Cultures, and other cultures if ordered will not be finalized for 24-48 hours. If you do not have a Primary Care Provider please call the medical records department at [phone] to obtain a copy of your results or you may sign into our patient portal to obtain these results by visiting us @ [email or web address] and completing the following steps: 1. Click on the Patient Portal link 2. Click the Patient Self Enrollment Link to complete the enrollment form and entering your 3. Once the enrollment form is completed you will receive an email with a temporary ID and password at the email address you provided. 4. Next choose a user name and password. Your user name must be at least 4 characters long and your password must be at least 4 characters long. 5. Choose a security question from the list and provide your answer to the question. If you already have signed into the Health Portal you may access your [employer] 24/7 by the following steps: 1. Login to our website @ [email or web address] 2. Enter your original user name and password. FAQS The [facility] Health Portal is an online tool that contains your Lab Results, Radiology Reports, Visit History, Discharge Instructions and Health Summary Lab and Radiology Results will not be available for 72 hours on the portal. The Portal is a secure site, passwords are encryted and URLs are re-written so they cannot be copied and pasted. You and authorized family members are the only ones who can access your Portal. Also there is a timeout feature that protects your information if you leave the Portal page open. If you have technical difficulty please use the Contact Us link on the page this will allow you to submit any questions you have regarding the Portal or you may contact the Medical Record Department at [phone]. Prescriptions: Oxycodone HCl/Acetaminophen [Oxycodone-Acetaminophn 7.5-325] 1 each PO Q6H #20 tablet MDD 4
[2022-08-13 18:38] VITALS: BP 139/77; PULSE 78
== END 2022-08-13 18:40 | disposition home or self-care (01) ==
LOC: ED 17:11
DX: J86.0 Pyothorax with fistula (principal); C34.90 Malignant neoplasm of unspecified part of unspecified bronchus or lung; E78.5 Hyperlipidemia, unspecified; I10 Essential (primary) hypertension; E10.9 Type 1 diabetes mellitus without complications; Z79.4 Long term (current) use of insulin; Z79.891 Long term (current) use of opiate analgesic; Z79.899 Other long term (current) drug therapy; Z72.0 Tobacco use
CPT/HCPCS: 96372; 99283; J1170; J1885

== ENCOUNTER 2022-08-29 18:28 | Observation (INO) | payer BC ==
--- NOTE | 2022-08-29 18:30 | ERPHSYRPT ---
- History of Present Illness Time Seen by Provider: 08/29/22 18:30 Historian: patient Exam Limitations: no limitations Physician History: This is a 61-year-old white female patient of Dr. Arias who also has a history of lung cancer and status post lobectomy of her lung and presents with vomiting and hyperglycemia. She tried to control her vomiting and the high blood sugars at home but was unable to do so. Patient does receive chemotherapyon 2 Mondays then off every third Monday. She was supposed to receive chemotherapy today but he was not feeling well so she did not receive. Patient has had multiple episodes of DKA in the past. Patient is an insulin-dependent diabetic, has gastroesophageal reflux disease, hyperlipidemia, hypertension, COPD, renal disease, anxiety and peripheral vascular disease. She also has a history of coronary artery disease and has had a cardiac stent placed in the past. She denies chest pain and she denies shortness of breath today. She has not had any diarrhea Timing/Duration: today Abdominal Pain Onset Location: generalized abdomen (Mild) Severity of Pain-Max: mild Severity of Pain-Current: mild Modifying Factors: Improves With: vomiting Associated Symptoms: loss of appetite, nausea, vomiting, No diarrhea Previous symptoms: same symptoms as today Allergies/Adverse Reactions: orphenadrine citrate [From Norflex] Allergy (Intermediate, Verified 08/29/22 18:35) severe vomiting adhesive tape Allergy (Verified 08/29/22 18:35) hydrocodone bitartrate [From [place]] Adverse Reaction (Mild, Verified 08/29/22 18:35) nausea vomiting levofloxacin [From Levaquin] Adverse Reaction (Mild, Verified 08/29/22 18:35) Nausea and Vomiting Home Medications: Insulin Lispro [Humalog] 1 unit SQ UD 11/14/16 [History] Cyclobenzaprine HCl 10 mg [Cyclobenzaprine 10 MG] 10 mg PO QID PRN [History] Promethazine HCl 25 mg [Phenergan 25 mg] 25 mg PO QID PRN 07/17/21 [History] cilostazoL [Cilostazol] 50 mg PO BID 07/25/21 [History] PANTOPRAZOLE 40 mg Tablet [Protonix 40MG Tablet] 1 tab PO HS 07/13/22 [History] ALPRAZolam 1 MG [Xanax 1 mg] 1 mg PO HS 07/18/22 [History] Atorvastatin Calcium 80 mg PO HS 07/18/22 [History] Gabapentin [Neurontin ] 200 mg PO BID 07/18/22 [History] Hx Tetanus, Diphtheria Vaccination/Date Given: No Hx Influenza Vaccination/Date Given: Yes Hx Pneumococcal Vaccination/Date Given: Yes Travel Risk - International Travel Have you traveled outside of the country in past 3 weeks: No - Coronavirus Screening Are you exhibiting any of the following symptoms?: No Close contact with a COVID-19 positive Pt in past 14-21 Days: No - Vaccine Status Have you recieved a Covid-19 vaccination: Yes 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 - Vaccination Dates Date of 2cond Vaccination (if applicable): 2021 - Review of Systems Constitutional: No Symptoms Eyes: No Symptoms Ears, Nose, & Throat: No Symptoms Respiratory: No Symptoms Cardiac: No Symptoms Abdominal/Gastrointestinal: Nausea, Vomiting Genitourinary Symptoms: No Symptoms Musculoskeletal: No Symptoms Skin: No Symptoms Neurological: No Symptoms Psychological: No Symptoms Endocrine: No Symptoms Hematologic/Lymphatic: No Symptoms Immunological/Allergic: No Symptoms All Other Systems: Reviewed and Negative - Past Medical History Pertinent Past Medical History: Yes Neurological History: No Pertinent History ENT History: No Pertinent History Cardiac History: Coronary Artery Disease, High Cholesterol, Hypertension Respiratory History: Asthma, Bronchitis, COPD, Emphysema, Lung Cancer, Pneumonia Endocrine Medical History: Diabetes Type I, Hypoglycemia Musculoskeletal History: Fractures GI Medical History: GERD History: Renal Disease Psycho-Social History: Anxiety, Depression Female Reproductive Disorders: No Pertinent History Other Medical History: Previous R 3rd left leg fx many years ago,rt wrist fx with cast - Past Surgical History Past Surgical History: Yes Neuro Surgical History: No Pertinent History Cardiac: Cardiac Catheterization, Cardiac Stent Respiratory: Lobectomy Gastrointestinal: Cholecystectomy Genitourinary: No Pertinent History Musculoskeletal: Other Female Surgical History: Tubal Ligation Other Surgical History: BUNONECTOMY. BACK SURGERY X2, right upper chest port placement. LL lung lobectomy - Social History Smoking Status: Current every day smoker How long have you smoked: 30 YEARS Exposure to second hand smoke: Yes Alcohol Use: None Drug Use: none Patient Lives Alone: No Significant Family History: heart disease, diabetes, hypertension - Nursing Vital Signs Nursing Vital Signs: Initial Vital Signs Temperature 97.3 F 08/29/22 18:36 Pulse Rate 121 H 08/29/22 18:36 Respiratory Rate 20 08/29/22 18:36 Blood Pressure 124/81 08/29/22 18:36 O2 Sat by Pulse Oximetry 99 08/29/22 18:36 Pain Scale Pain Intensity 0 - Physical Exam General Appearance: mild distress, alert, anxiety Eye Exam: eyes nml inspection Ears, Nose, Throat Exam: normal ENT inspection, moist mucous membranes Neck Exam: normal inspection, non-tender, supple, full range of motion Respiratory Exam: normal breath sounds, lungs clear, airway intact, No chest tenderness, No respiratory distress Cardiovascular Exam: tachycardia Gastrointestinal/Abdomen Exam: soft, normal bowel sounds, tenderness (Mild diffuse no localized tenderness) Pelvic Exam: not done Rectal Exam: not done Back Exam: normal inspection, normal range of motion, No CVA tenderness, No vertebral tenderness Extremity Exam: normal inspection, normal range of motion, pelvis stable Neurologic Exam: alert, oriented x 3, cooperative, 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 teacher II-XII nml as tested, normal mood/affect, nml cerebellar function, nml station & gait, sensation nml Skin Exam: normal color, warm, dry Lymphatic Exam: No adenopathy SpO2 Interpretation: normal O2 Delivery: Room Air - Course Nursing assessment & vital signs reviewed: Yes Ordered Tests: Active Orders 24 hr Category Date Time Status IV Insertion STAT Care 08/29/22 18:44 Active POCT Glucose Check STAT Care 08/29/22 18:50 Active AMYLASE Stat Lab 08/29/22 18:45 Completed BMP Stat Lab 08/29/22 21:20 Completed BMP Stat Lab 08/29/22 23:10 Completed CBC W DIFF Stat Lab 08/29/22 18:45 Completed CMP Stat Lab 08/29/22 18:45 Completed CULTURE,URINE Stat Lab 08/29/22 21:31 Received LIPASE Stat Lab 08/29/22 18:45 Completed Lactic Acid Stat Lab 08/29/22 18:56 Completed Lactic Acid Stat Lab 08/29/22 21:07 Completed MAGNESIUM Stat Lab 08/29/22 18:45 Completed UA W/RFX UR CULTURE Stat Lab 08/29/22 21:31 Completed Transfer Order Routine Transfer 08/29/22 Ordered Medication Summary Discontinued Medications Generic Name Dose Route Start Last Admin Trade Name Freq PRN Reason Stop Dose Admin Fluconazole 150 mg 08/29/22 23:39 Fluconazole 100 Mg Tablet PO 08/29/22 23:40 ONCE ONE Sodium Chloride 1,000 mls @ 999 mls/hr 08/29/22 18:44 08/29/22 20:28 Sodium Chloride 0.9% 1000 Ml IV 08/29/22 19:44 Infused .Q1H1M STA Infusion Sodium Chloride Confirm 08/29/22 18:49 Sodium Chloride 0.9% 1000 Ml Administered 08/29/22 18:50 Dose 1,000 mls @ ud .ROUTE .STK-MED ONE Magnesium Sulfate/Water 2 gm in 50 mls @ 100 mls/hr 08/29/22 19:39 08/29/22 21:41 Magnesium Sulf 2 G/50 Ml Bag IV 08/29/22 20:08 Infused ONCE ONE Infusion Magnesium Sulfate/Dextrose Confirm 08/29/22 20:30 Magnesium 1 Gm / 100 Ml D5w Administered 08/29/22 20:31 Dose 100 mls @ ud IV .STK-MED ONE Magnesium Sulfate/Water Confirm 08/29/22 20:31 Magnesium Sulf 2 G/50 Ml Bag Administered 08/29/22 20:32 Dose 2 gm in 50 mls @ ud IV .STK-MED ONE Sodium Chloride 1,000 mls @ 999 mls/hr 08/29/22 21:32 08/29/22 22:41 Sodium Chloride 0.9% 1000 Ml IV 08/29/22 22:32 Infused .Q1H1M STA Infusion Sodium Chloride Confirm 08/29/22 21:32 Sodium Chloride 0.9% 1000 Ml Administered 08/29/22 21:33 Dose 1,000 mls @ ud .ROUTE .STK-MED ONE Ceftriaxone Sodium/Dextrose 1 g in 50 mls @ 100 mls/hr 08/29/22 22:37 08/29/22 23:26 Rocephin 1 Gm-D5w 50 Ml Bag IV 08/29/22 23:06 Infused STAT STA Infusion Ceftriaxone Sodium/Dextrose Confirm 08/29/22 22:42 Rocephin 1 Gm-D5w 50 Ml Bag Administered 08/29/22 22:43 Dose 1 g in 50 mls @ ud IV .STK-MED ONE Ondansetron HCl 4 mg 08/29/22 22:31 08/29/22 22:37 Ondansetron Hcl 4 Mg/2 Ml Vial IV 08/29/22 22:32 4 mg STAT ONE Administration Ondansetron HCl Confirm 08/29/22 22:36 Ondansetron Hcl 4 Mg/2 Ml Vial Administered 08/29/22 22:37 Dose 4 mg .ROUTE .STK-MED ONE Pantoprazole Sodium 40 mg 08/29/22 18:44 08/29/22 18:52 Pantoprazole 40 Mg Vial IV 08/29/22 18:45 40 mg STAT ONE Administration Pantoprazole Sodium Confirm 08/29/22 18:48 Pantoprazole 40 Mg Vial Administered 08/29/22 18:49 Dose 40 mg IV .STK-MED ONE Prochlorperazine Edisylate 10 mg 08/29/22 18:44 08/29/22 18:54 Prochlorperazine Edisylate 10 Mg/2 Ml Vial IV 08/29/22 18:45 10 mg STAT ONE Administration Prochlorperazine Edisylate Confirm 08/29/22 18:49 Prochlorperazine Edisylate 10 Mg/2 Ml Vial Administered 08/29/22 18:50 Dose 10 mg .ROUTE .[facility] ONE Lab/Rad Data: Laboratory Result Diagrams 08/29/22 18:45 08/29/22 23:10 Laboratory Results 08/29/22 08/29/22 08/29/22 Range/Units 23:10 21:31 21:20 WBC (4.0-10.5) x10^3/uL RBC (4.1-5.4) x10^6/uL Hgb (12.0-16.0) g/dL Hct (35-47) % MCV (78-100) fL MCH (26-32) pg MCHC (32-36) g/dL RDW (11.5-14.0) % Plt Count (150-450) x10^3/uL MPV (7.5-11.0) fL Gran % (36.0-66.0) % Immature Gran % (Auto) (0.00-0.4) % Nucleat RBC Rel Count (0.00-0.1) % Eos # (Auto) (0-0.5) x10^3/uL Immature Gran # (Auto) (0.00-0.03) x10^3u/L Absolute Lymphs (auto) (1.0-4.6) x10^3/uL Absolute Monos (auto) (0.0-1.3) x10^3/uL Absolute Nucleated RBC (0.00-0.01) x10^3u/L Lymphocytes % (24.0-44.0) % Monocytes % (0.0-12.0) % Eosinophils % (0.00-5.0) % Basophils % (0.0-0.4) % Absolute Granulocytes (1.4-6.9) x10^3/uL Basophils # (0-0.4) x10^3/uL Sodium 135 L 134 L (137-145) mmol/L Potassium 4.8 4.8 D (3.5-5.1) mmol/L Chloride 102 99 (98-107) mmol/L Carbon Dioxide 13 L* 14 L* (22-30) mmol/L Anion Gap 24.8 H 25.7 H (5-15) MEQ/L BUN 35 H 37 H (7-17) mg/dL Creatinine 1.14 H 1.25 H (0.52-1.04) mg/dL Estimated GFR 51.7 46.5 ML/MIN Glucose 294 H 294 H (74-106) mg/dL Lactic Acid (0.4-2.0) Calcium 8.3 L 8.8 (8.4-10.2) mg/dL Magnesium (1.6-2.3) mg/dL Total Bilirubin (0.2-1.3) mg/dL AST (14-36) U/L ALT (0-35) U/L Alkaline Phosphatase (38-126) U/L Serum Total Protein (6.3-8.2) g/dL Albumin (3.5-5.0) g/dL Amylase (30-110) U/L Lipase (23-300) U/L Urine Color Yellow (Yellow) Urine Appearance Cloudy A (Clear) Urine pH 5.0 (4.6-8.0) Ur Specific Dorothy 1.020 (1.005-1.030) Urine Protein 30 (Negative) Urine Glucose (UA) 250 A (Negative) mg/dL Urine Ketones 15 A (Negative) Urine Blood Trace (Negative) Urine Nitrite Negative (Negative) Urine Bilirubin Negative (Negative) Urine Urobilinogen 0.2 (0.2) mg/dL Ur Leukocyte Esterase Moderate A (Negative) U Hyaline Cast (Auto) NONE SEEN (0-2) /LPF Urine Microscopic RBC >100 A (0-5) /HPF Urine Microscopic WBC 21-50 A (0-5) /HPF Ur Epithelial Cells None Seen (None Seen) /HPF Urine Bacteria Many A (None Seen) /HPF Urine Yeast (Budding) Many A (None Seen) /HPF Urine Culture Reflexed YES (NO) Influenza Type A Ag (NEGATIVE) Influenza Type B Ag (NEGATIVE) RSV (PCR) (NEGATIVE) SARS-CoV-2 (PCR) (NEGATIVE) 08/29/22 08/29/22 08/29/22 Range/Units 21:07 19:00 18:56 WBC (4.0-10.5) x10^3/uL RBC (4.1-5.4) x10^6/uL Hgb (12.0-16.0) g/dL Hct (35-47) % MCV (78-100) fL MCH (26-32) pg MCHC (32-36) g/dL RDW (11.5-14.0) % Plt Count (150-450) x10^3/uL MPV (7.5-11.0) fL Gran % (36.0-66.0) % Immature Gran % (Auto) (0.00-0.4) % Nucleat RBC Rel Count (0.00-0.1) % Eos # (Auto) (0-0.5) x10^3/uL Immature Gran # (Auto) (0.00-0.03) x10^3u/L Absolute Lymphs (auto) (1.0-4.6) x10^3/uL Absolute Monos (auto) (0.0-1.3) x10^3/uL Absolute Nucleated RBC (0.00-0.01) x10^3u/L Lymphocytes % (24.0-44.0) % Monocytes % (0.0-12.0) % Eosinophils % (0.00-5.0) % Basophils % (0.0-0.4) % Absolute Granulocytes (1.4-6.9) x10^3/uL Basophils # (0-0.4) x10^3/uL Sodium (137-145) mmol/L Potassium (3.5-5.1) mmol/L Chloride (98-107) mmol/L Carbon Dioxide (22-30) mmol/L Anion Gap (5-15) MEQ/L BUN (7-17) mg/dL Creatinine (0.52-1.04) mg/dL Estimated GFR ML/MIN Glucose (74-106) mg/dL Lactic Acid 1.2 2.2 H (0.4-2.0) Calcium (8.4-10.2) mg/dL Magnesium (1.6-2.3) mg/dL Total Bilirubin (0.2-1.3) mg/dL AST (14-36) U/L ALT (0-35) U/L Alkaline Phosphatase (38-126) U/L Serum Total Protein (6.3-8.2) g/dL Albumin (3.5-5.0) g/dL Amylase (30-110) U/L Lipase (23-300) U/L Urine Color (Yellow) Urine Appearance (Clear) Urine pH (4.6-8.0) Ur Specific Dorothy (1.005-1.030) Urine Protein (Negative) Urine Glucose (UA) (Negative) mg/dL Urine Ketones (Negative) Urine Blood (Negative) Urine Nitrite (Negative) Urine Bilirubin (Negative) Urine Urobilinogen (0.2) mg/dL Ur Leukocyte Esterase (Negative) U Hyaline Cast (Auto) (0-2) /LPF Urine Microscopic RBC (0-5) /HPF Urine Microscopic WBC (0-5) /HPF Ur Epithelial Cells (None Seen) /HPF Urine Bacteria (None Seen) /HPF Urine Yeast (Budding) (None Seen) /HPF Urine Culture Reflexed (NO) Influenza Type A Ag NEGATIVE (NEGATIVE) Influenza Type B Ag NEGATIVE (NEGATIVE) RSV (PCR) NEGATIVE (NEGATIVE) SARS-CoV-2 (PCR) NEGATIVE (NEGATIVE) 08/29/22 08/29/22 08/29/22 Range/Units 18:45 18:45 18:45 WBC 14.0 H (4.0-10.5) x10^3/uL RBC 3.50 L (4.1-5.4) x10^6/uL Hgb 10.8 L (12.0-16.0) g/dL Hct 33.4 L (35-47) % MCV 95.4 (78-100) fL MCH 30.9 (26-32) pg MCHC 32.3 (32-36) g/dL RDW 14.8 H (11.5-14.0) % Plt Count 210 (150-450) x10^3/uL MPV 10.5 (7.5-11.0) fL Gran % 82.5 H (36.0-66.0) % Immature Gran % (Auto) 0.5 H (0.00-0.4) % Nucleat RBC Rel Count 0.0 (0.00-0.1) % Eos # (Auto) 0.02 (0-0.5) x10^3/uL Immature Gran # (Auto) 0.07 H (0.00-0.03) x10^3u/L Absolute Lymphs (auto) 1.64 (1.0-4.6) x10^3/uL Absolute Monos (auto) 0.69 (0.0-1.3) x10^3/uL Absolute Nucleated RBC 0.00 (0.00-0.01) x10^3u/L Lymphocytes % 11.7 L (24.0-44.0) % Monocytes % 4.9 (0.0-12.0) % Eosinophils % 0.1 (0.00-5.0) % Basophils % 0.3 (0.0-0.4) % Absolute Granulocytes 11.54 H (1.4-6.9) x10^3/uL Basophils # 0.04 (0-0.4) x10^3/uL Sodium 135 L (137-145) mmol/L Potassium 3.8 (3.5-5.1) mmol/L Chloride 97 L (98-107) mmol/L Carbon Dioxide 20 L (22-30) mmol/L Anion Gap 22.2 H (5-15) MEQ/L BUN 38 H (7-17) mg/dL Creatinine 1.32 H (0.52-1.04) mg/dL Estimated GFR 43.6 ML/MIN Glucose 238 H (74-106) mg/dL Lactic Acid (0.4-2.0) Calcium 9.4 (8.4-10.2) mg/dL Magnesium 1.5 L (1.6-2.3) mg/dL Total Bilirubin 0.50 (0.2-1.3) mg/dL AST 28 (14-36) U/L ALT 27 (0-35) U/L Alkaline Phosphatase 156 H (38-126) U/L Serum Total Protein 6.8 (6.3-8.2) g/dL Albumin 3.7 (3.5-5.0) g/dL Amylase 63 (30-110) U/L Lipase 30 (23-300) U/L Urine Color (Yellow) Urine Appearance (Clear) Urine pH (4.6-8.0) Ur Specific Dorothy (1.005-1.030) Urine Protein (Negative) Urine Glucose (UA) (Negative) mg/dL Urine Ketones (Negative) Urine Blood (Negative) Urine Nitrite (Negative) Urine Bilirubin (Negative) Urine Urobilinogen (0.2) mg/dL Ur Leukocyte Esterase (Negative) U Hyaline Cast (Auto) (0-2) /LPF Urine Microscopic RBC (0-5) /HPF Urine Microscopic WBC (0-5) /HPF Ur Epithelial Cells (None Seen) /HPF Urine Bacteria (None Seen) /HPF Urine Yeast (Budding) (None Seen) /HPF Urine Culture Reflexed (NO) Influenza Type A Ag (NEGATIVE) Influenza Type B Ag (NEGATIVE) RSV (PCR) (NEGATIVE) SARS-CoV-2 (PCR) (NEGATIVE) - Progress Progress: improved, re-examined Progress Note: 08/29/22 23:41 This patient's medical issue is 1 of high complexity. The level of complexity is based on the patient's past medical history, review of her medication list, review of her medication allergy list, history of present illness and physical findings on examination. Patient underwent placement of intravenous line, infusion of normal saline solution, CBC, CMP, lactic acid, urinalysis, the patient is dehydrated, has mild DKA and has a urinary tract infection with both yeast and bacteria. Patient was not fused with Rocephin 1 g intravenously. Patient's lactic acid was elevated but repeat showed lactic acid back in the normal range. Patient has ketones in her urine and a blood sugar that was elevated. In addition, the patient's CO2 and anion gap are consistent with mild DKA. Clinically, the patient is improved but she is not quite ready to be discharged to home. I spoke with Dr. Arias, of the patient's primary care physician, and together we decided to place the patient in observation and p rovide her with further intravenous fluid, antiemetics, sliding scale insulin coverage as well as continued intravenous antibiotics. We will repeat labs in the morning as well. Discussed with : Gisela Counseled pt/family regarding: lab results, diagnosis Medical Desision Making - Independent Historian Additional History obtained from: Spouse - Discussion of managment Care discussed with:: PCP Reviewed:: Test results, Need for additional workup Agreed on:: Treatment plan, decision to admit Will see patient: in hospital - Diagnostic Testing Diagnostic test were ordered, analyzed, and reviewed by me: Yes - Risk of complications The pt has a high risk of morbidity or mortality based on: Decision regarding hospitilization or escalation of hosp level of care - Departure Departure Disposition: Observation Clinical Impression: DKA (diabetic ketoacidosis), UTI (urinary tract infection), Yeast UTI Condition: Stable Critical Care Time: No Referrals: LYUDMILA ARIAS MD [Primary Care Provider] - Follow up/PCP as directed
[2022-08-29] MEDS ORDERED: PROTONIX 40 MG IV IV ONE ×2 (18:44→18:48)
[2022-08-29] MEDS ORDERED: Compazine 10 MG/2 ML IV ONE (18:44)
[2022-08-29] MEDS ORDERED: Sodium Chloride 0.9% 1000 ML 1,000 ML IV STA ×2 (18:44→21:32)
[2022-08-29] MEDS ORDERED: Compazine 10 MG/2 ML ONE (18:49)
[2022-08-29] MEDS ORDERED: Sodium Chloride 0.9% 1000 ML 1,000 ML ONE ×2 (18:49→21:32)
[2022-08-29 19:13] LABS: Absolute Neutrophil Ct (ANC) 11.54 x10^3/uL (1.4-6.9); BASOPHIL % 0.3 % (0.0-0.4); Basophil (Absolute #) 0.04 x10^3/uL (0-0.4); Eosinophil % 0.1 % (0.00-5.0); Eosinophil (Absolute #) 0.02 x10^3/uL (0-0.5); Hematocrit 33.4 % (35-47); Hemoglobin 10.8 g/dL (12.0-16.0); IMMATURE GRAN # 0.07 x10^3u/L (0.00-0.03); IMMATURE GRAN % 0.5 % (0.00-0.4); Lymphocyte (Absolute #) 1.64 x10^3/uL (1.0-4.6); Lymphocytes % 11.7 % (24.0-44.0); Mean Cell Volume 95.4 fL (78-100); Mean Corpuscular Hemoglobin 30.9 pg (26-32); Mean Corpuscular Hgb Concent. 32.3 g/dL (32-36); Mean Platelet Volume 10.5 fL (7.5-11.0); Monocyte (Absolute #) 0.69 x10^3/uL (0.0-1.3); Monocytes % 4.9 % (0.0-12.0); Neutrophil % 82.5 % (36.0-66.0); Platelet Count 210 x10^3/uL (150-450); Red Cell Distribution Width 14.8 % (11.5-14.0)
[2022-08-29 19:27] LABS: ALBUMIN 3.7 g/dL (3.5-5.0); ANION GAP 22.2 MEQ/L (5-15); BILIRUBIN,TOTAL 0.5 mg/dL (0.2-1.3); Calcium 9.4 mg/dL (8.4-10.2); Creatinine 1 1.32 mg/dL (0.52-1.04); EST GLOMERULAR FILTRATION RATE 43.6 ML/MIN; Potassium 3.8 mmol/L (3.5-5.1); Total Protein 6.8 g/dL (6.3-8.2)
[2022-08-29] MEDS ORDERED: MAGNESIUM SULF 2 G/50 ML BAG 2 GM/50 ML PIGGYBACK IV ONE ×2 (19:39→20:31)
[2022-08-29 19:49] LABS: INFLUENZA A NEGATIVE (NEGATIVE); INFLUENZA B NEGATIVE (NEGATIVE); RESPIRATORY SYNCTIAL VIRUS NEGATIVE (NEGATIVE); SARS-CoV-2 Xpert Express NEGATIVE (NEGATIVE)
[2022-08-29] MEDS ORDERED: Magnesium 1 Gm / 100 Ml D5W*** 0 ML IV ONE (20:30)
[2022-08-29 21:39] LABS: ANION GAP 25.7 MEQ/L (5-15); Calcium 8.8 mg/dL (8.4-10.2); Creatinine 1 1.25 mg/dL (0.52-1.04); EST GLOMERULAR FILTRATION RATE 46.5 ML/MIN; Potassium 4.8 mmol/L (3.5-5.1)
[2022-08-29 22:13] LABS: Appearance Cloudy (Clear); Bacteria Many /HPF (None Seen); Bilirubin Negative (Negative); Blood Trace (Negative); Epithelial Cells None Seen /HPF (None Seen); Glucose, Urine 250 mg/dL (Negative); Hyaline Casts NONE SEEN /LPF (0-2); Ketones 15 (Negative); Leukocyte Esterase Moderate (Negative); Nitrite Negative (Negative); Protein,Urine Dip 30 (Negative); RBC >100 /HPF (0-5); Urobilinogen 0.2 mg/dL (0.2); WBC 21-50 /HPF (0-5)
[2022-08-29 22:17] LABS: Budding Yeast Many /HPF (None Seen)
[2022-08-29 22:18] LABS: ADD URINE CULTURE? YES (NO)
[2022-08-29] MEDS ORDERED: Zofran 4 MG/2 ML VIAL IV ONE (22:31)
[2022-08-29] MEDS ORDERED: Zofran 4 MG/2 ML VIAL ONE (22:36)
[2022-08-29] MEDS ORDERED: ROCEPHIN 1 Gm-D5w 50 ml Bag** 1 G/50 ML IVPB IV STA (22:37)
[2022-08-29] MEDS ORDERED: ROCEPHIN 1 Gm-D5w 50 ml Bag** 1 G/50 ML IVPB IV ONE (22:42)
[2022-08-29 23:28] LABS: ANION GAP 24.8 MEQ/L (5-15); Calcium 8.3 mg/dL (8.4-10.2); Creatinine 1 1.14 mg/dL (0.52-1.04); EST GLOMERULAR FILTRATION RATE 51.7 ML/MIN; Potassium 4.8 mmol/L (3.5-5.1)
[2022-08-29] MEDS ORDERED: Diflucan 100 MG PO ONE (23:39)
[2022-08-30] MEDS ORDERED: TYLENOL 325 MG PO PRN (00:21)
[2022-08-30] MEDS ORDERED: Diflucan 100 MG ONE (00:25)
[2022-08-30] MEDS: Sodium Chloride 0.9% 1000 ML 1,000 ML IV SCH ×2 (01:08→08:24)
[2022-08-30] MEDS ORDERED: Cyclobenzaprine 10 MG PO PRN (01:23)
[2022-08-30] MEDS ORDERED: XANAX 1 MG PO ONE (01:30)
[2022-08-30] MEDS ORDERED: PERCOCET TABLET 5/325MG PO SCH (01:30)
[2022-08-30] MEDS ORDERED: NEURONTIN PO ONE (01:30)
[2022-08-30] MEDS: Compazine 10 MG/2 ML IV PRN ×2 (01:35→07:25)
[2022-08-30] MEDS ORDERED: Nicoderm CQ 21 MG TOP SCH ×2 (01:45→22:00)
[2022-08-30 05:03] LABS: Absolute Neutrophil Ct (ANC) 13.46 x10^3/uL (1.4-6.9); BASOPHIL % 0.3 % (0.0-0.4); Basophil (Absolute #) 0.05 x10^3/uL (0-0.4); Eosinophil (Absolute #) 0 x10^3/uL (0-0.5); Hematocrit 32.3 % (35-47); Hemoglobin 10.3 g/dL (12.0-16.0); IMMATURE GRAN # 0.16 x10^3u/L (0.00-0.03); IMMATURE GRAN % 1.1 % (0.00-0.4); Lymphocyte (Absolute #) 0.61 x10^3/uL (1.0-4.6); Lymphocytes % 4.1 % (24.0-44.0); Mean Cell Volume 99.7 fL (78-100); Mean Corpuscular Hemoglobin 31.8 pg (26-32); Mean Corpuscular Hgb Concent. 31.9 g/dL (32-36); Mean Platelet Volume 10.5 fL (7.5-11.0); Monocyte (Absolute #) 0.69 x10^3/uL (0.0-1.3); Monocytes % 4.6 % (0.0-12.0); Neutrophil % 89.9 % (36.0-66.0); Platelet Count 205 x10^3/uL (150-450); Red Blood Count 3.24 x10^6/uL (4.1-5.4); Red Cell Distribution Width 15.5 % (11.5-14.0)
[2022-08-30 05:19] LABS: ALBUMIN 3.8 g/dL (3.5-5.0); ANION GAP 34.7 MEQ/L (5-15); BILIRUBIN,TOTAL 0.5 mg/dL (0.2-1.3); Calcium 8.8 mg/dL (8.4-10.2); Creatinine 1 1.44 mg/dL (0.52-1.04); EST GLOMERULAR FILTRATION RATE 39.5 ML/MIN; Total Protein 6.8 g/dL (6.3-8.2)
[2022-08-30] MEDS ORDERED: MYXREDLIN 100 UNIT/100 ML BAG 100 UNIT/100 ML PLAST..BAG IV PRN (05:49)
[2022-08-30] MEDS ORDERED: Sodium Chloride 0.9% 1000 ML 2,000 ML ONE (06:03)
[2022-08-30] MEDS: Sodium Chloride 0.9% 1000 ML 1,000 ML IV STA ×2 (06:05→06:09)
[2022-08-30] MEDS ORDERED: PHENERGAN 25 MG PO PRN (07:12)
[2022-08-30] MEDS ORDERED: NON-FORMULARY ITEM (Insulin Lispro 1 UNIT Ml) SQ SCH (07:15)
[2022-08-30] MEDS: PERCOCET TABLET 5/325MG PO SCH ×3 (07:17→18:26)
[2022-08-30] MEDS ORDERED: MEDICATION INTERVENTION MC SCH (07:30)
[2022-08-30] MEDS ORDERED: PATIENT OWN MEDICATION SQ SCH (07:30)
[2022-08-30] MEDS: Abilify 10 MG PO SCH (09:40)
[2022-08-30] MEDS ORDERED: Spiriva 18 Mcg/Cap Inhaler IH ONE (09:41)
[2022-08-30] MEDS: Spiriva 18 Mcg/Cap Inhaler IH SCH (09:47)
[2022-08-30] MEDS: Advair Hfa 115/21 Common canister IH SCH ×2 (09:48→18:59)
[2022-08-30 09:53] LABS: ANION GAP 24.8 MEQ/L (5-15); BILIRUBIN,TOTAL 0.3 mg/dL (0.2-1.3); Calcium 7.8 mg/dL (8.4-10.2); Creatinine 1 1.14 mg/dL (0.52-1.04); Direct Bilirubin 0.2 mg/dL (0.0-0.4); EST GLOMERULAR FILTRATION RATE 51.7 ML/MIN; Potassium 3.9 mmol/L (3.5-5.1); Total Protein 5.7 g/dL (6.3-8.2)
[2022-08-30] MEDS ORDERED: NON-FORMULARY ITEM (Budesonide/Glycopyr/Formoterol [Breztri Aerosphere Inhaler] 10.7 GM Hf IH SCH (10:00)
[2022-08-30] MEDS: Sodium Chloride 0.9% W/ 20 mEq KCl/LITER 1,000 ML IV SCH ×2 (10:12→14:43)
[2022-08-30 13:52] LABS: ALBUMIN 2.5 g/dL (3.5-5.0); BLOOD UREA NITROGEN 34 mg/dL (7-17); CHLORIDE 106 mmol/L (98-107); Calcium 7.2 mg/dL (8.4-10.2); Carbon Dioxide 19 mmol/L (22-30); Creatinine 1 0.99 mg/dL (0.52-1.04); Direct Bilirubin 0.2 mg/dL (0.0-0.4); EST GLOMERULAR FILTRATION RATE > 60.0 ML/MIN; Glucose 266 mg/dL (74-106); MAGNESIUM 1.6 mg/dL (1.6-2.3); Potassium 4.4 mmol/L (3.5-5.1); SODIUM 134 mmol/L (137-145); Total Protein 4.9 g/dL (6.3-8.2)
[2022-08-30 13:53] LABS: ALKALINE PHOSPHATASE 122 U/L (38-126); ANION GAP 12.7 MEQ/L (5-15); SGOT/AST 24 U/L (14-36); SGPT/ALT 20 U/L (0-35)
--- NOTE | 2022-08-30 17:34 | PCM.HP ---
History of Present Illness - Chief Complaint Chief Complaint: weakness lethargy, nausea vomiting for 2 days History of Present Illness: is a 61 year old female.has a history of lung cancer and status post lobectomy of her lung and presents with vomiting and hyperglycemia. She tried t o control her vomiting and the high blood sugars at home but was unable to do so. Patient does receive chemotherapyon 2 Mondays then off every third Monday. She was supposed to receive chemotherapy today but he was not feeling well so she did not receive. Patient has had multiple episodes of DKA in the past. Patient is an insulin-dependent diabetic, has gastroesophageal reflux disease, hyperlipidemia, hypertension, COPD, renal disease, anxiety and peripheral vascular disease. She also has a history of coronary artery disease and has had a cardiac stent placed in the past. She denies chest pain and she denies shortness of breath today. She has not had any diarrhea Timing/Duration: today Abdominal Pain Onset Location: generalized abdomen (Mild) Severity of Pain-Max: mild Severity of Pain-Current: mild Modifying Factors: Improves With: vomiting Associated Symptoms: loss of appetite, nausea, vomiting, No diarrhea Previous symptoms: same symptoms as today - Review of Systems Constitutional: Weakness, No Fever, No Chills Eyes: No Symptoms Ears, Nose, & Throat: No Symptoms Respiratory: No Cough, No Short Of Breath Cardiac: No Chest Pain, No Edema, No Syncope Abdominal/Gastrointestinal: No Abdominal Pain, No Nausea, No Vomiting, No Diarrhea Genitourinary Symptoms: No Dysuria Musculoskeletal: No Back Pain, No Neck Pain Skin: No Rash Neurological: No Dizziness, No Focal Weakness, No Sensory Changes Psychological: No Symptoms Endocrine: No Symptoms Hematologic/Lymphatic: No Symptoms Immunological/Allergic: No Symptoms Medications & Allergies Home Medications: Home Medication List Insulin Lispro [Humalog] 1 unit SQ UD 11/14/16 [History Confirmed 08/29/22] Cyclobenzaprine HCl 10 mg [Cyclobenzaprine 10 MG] 10 mg PO QID PRN 02/13/19 [History Confirmed 08/29/22] Promethazine HCl 25 mg [Phenergan 25 mg] 25 mg PO QID PRN 07/17/21 [History Confirmed 08/29/22] ALPRAZolam 1 MG [Xanax 1 mg] 1 mg PO HS 07/18/22 [History Confirmed 08/29/22] Atorvastatin Calcium 80 mg PO HS 07/18/22 [History Confirmed 08/29/22] Aripiprazole 10 mg [Abilify 10 MG] 10 mg PO DAILY 08/30/22 [History Confirmed 08/30/22] Budesonide/Glycopyr/Formoterol [Breztri Aerosphere Inhaler] 2 puff IH BID [History Confirmed 08/30/22] Gabapentin [Neurontin ] 300 mg PO HS 08/30/22 [History Confirmed 08/30/22] Oxycodone HCl/Acetaminophen [Oxycodone-Acetaminophen 5-325] 1 each PO Q6H 08/30/22 [History Confirmed 08/30/22] Prochlorperazine Maleate [Compazine] 10 mg PO BIDPRN PRN 08/30/22 [History Confirmed 08/30/22] Allergies/Adverse Reactions: Allergies Allergy/AdvReac Type Severity Reaction Status Date / Time orphenadrine citrate Allergy Intermediate Verified 08/30/22 01:12 [From Norflex] adhesive tape Allergy Verified 08/30/22 01:12 hydrocodone bitartrate AdvReac Mild Verified 08/30/22 01:12 [From [place]] levofloxacin [From Levaquin] AdvReac Mild Nausea and Verified 08/30/22 01:12 Vomiting - Past Medical History Past Medical History: Yes Neurological History: No Pertinent History ENT History: No Pertinent History Cardiac History: Coronary Artery Disease, High Cholesterol, Hypertension Respiratory History: Asthma, Bronchitis, COPD, Emphysema, Lung Cancer, Pneumonia Endocrine Medical History: Diabetes Type I, Hypoglycemia Musculoskelatal History: Fractures GI Medical History: GERD History: Renal Disease Pyscho-Social History: Anxiety, Depression Reproductive Disorders: No Pertinent History Comment: Previous R 3rd left leg fx many years ago,rt wrist fx with cast, PRESENTLY IN CHEMO - Female History Are you now?: No - Past Surgical History Past Surgical History: Yes Neuro Surgical History: No Pertinent History Cardiac History: Cardiac Catheterization, Cardiac Stent Respiratory Surgery: Lobectomy GI Surgical History: Cholecystectomy Genitourinary Surgical Hx: No Pertinent History Musculskeletal Surgical Hx: Other Female Surgical History: Tubal Ligation Other Surgical History: BUNONECTOMY. BACK SURGERY X2, right upper chest port placement. LL lung lobectomy - Social History Smoking Status: Current every day smoker How long have you smoked: 40 YEARS Exposure to second hand smoke: Yes Alcohol: None Drug Use: none Significant Family History: heart disease, diabetes, hypertension - Physical Exam Vital Signs: Vital Signs - 24 hr Temp Pulse Resp BP BP Pulse Ox 08/30/22 15:54 102 H 20 102/56 97 08/30/22 12:00 102 H 20 92/63 95 08/30/22 09:50 98 H 20 95 08/30/22 07:07 122 H 17 124/62 100 08/30/22 04:00 97.7 F 119 H 24 130/60 98 08/30/22 00:43 98.6 F 121 H 20 122/58 96 08/30/22 00:00 112 H 20 112/75 98 08/29/22 23:00 114 H 18 149/65 97 08/29/22 22:00 112 H 20 134/64 98 08/29/22 21:28 115 H 22 106/40 97 08/29/22 20:28 118 H 20 151/67 99 08/29/22 19:28 120 H 20 126/68 100 08/29/22 18:36 97.3 F 121 H 20 124/81 99 General Appearance: no apparent distress, alert Neurologic Exam: alert, oriented x 3, cooperative, normal mood/affect, nml cerebellar function, nml station & gait, sensation nml, No motor deficits Eye Exam: PERRL/EOMI, eyes nml inspection Ears, Nose, Throat Exam: normal ENT inspection, TMs normal, pharynx normal, moist mucous membranes Neck Exam: normal inspection, non-tender, supple, full range of motion Respiratory Exam: normal breath sounds, lungs clear, No respiratory distress Cardiovascular Exam: regular rate/rhythm, normal heart sounds, normal peripheral pulses Gastrointestinal/Abdomen Exam: soft, normal bowel sounds, No tenderness, No mass Back Exam: normal inspection, normal range of motion, No CVA tenderness, No vertebral tenderness Extremity Exam: normal inspection, normal range of motion, pelvis stable Skin Exam: normal color, warm, dry, No rash Lymphatic Exam: No adenopathy Results - Labs Lab/Micro Results: Lab Results-Last 24 Hours 08/29/22 08/29/22 08/29/22 Range/Units 18:45 18:45 18:45 WBC 14.0 H (4.0-10.5) x10^3/uL RBC 3.50 L (4.1-5.4) x10^6/uL Hgb 10.8 L (12.0-16.0) g/dL Hct 33.4 L (35-47) % MCV 95.4 (78-100) fL MCH 30.9 (26-32) pg MCHC 32.3 (32-36) g/dL RDW 14.8 H (11.5-14.0) % Plt Count 210 (150-450) x10^3/uL MPV 10.5 (7.5-11.0) fL Gran % 82.5 H (36.0-66.0) % Immature Gran % (Auto) 0.5 H (0.00-0.4) % Nucleat RBC Rel Count 0.0 (0.00-0.1) % Eos # (Auto) 0.02 (0-0.5) x10^3/uL Immature Gran # (Auto) 0.07 H (0.00-0.03) x10^3u/L Absolute Lymphs (auto) 1.64 (1.0-4.6) x10^3/uL Absolute Monos (auto) 0.69 (0.0-1.3) x10^3/uL Absolute Nucleated RBC 0.00 (0.00-0.01) x10^3u/L Lymphocytes % 11.7 L (24.0-44.0) % Monocytes % 4.9 (0.0-12.0) % Eosinophils % 0.1 (0.00-5.0) % Basophils % 0.3 (0.0-0.4) % Absolute Granulocytes 11.54 H (1.4-6.9) x10^3/uL Basophils # 0.04 (0-0.4) x10^3/uL Sodium 135 L (137-145) mmol/L Potassium 3.8 (3.5-5.1) mmol/L Chloride 97 L (98-107) mmol/L Carbon Dioxide 20 L (22-30) mmol/L Anion Gap 22.2 H (5-15) MEQ/L BUN 38 H (7-17) mg/dL Creatinine 1.32 H (0.52-1.04) mg/dL Estimated GFR 43.6 ML/MIN Glucose 238 H (74-106) mg/dL POC Glucometer (50 to 500) mg/dL Lactic Acid (0.4-2.0) Calcium 9.4 (8.4-10.2) mg/dL Magnesium 1.5 L (1.6-2.3) mg/dL Total Bilirubin 0.50 (0.2-1.3) mg/dL Direct Bilirubin (0.0-0.4) mg/dL AST 28 (14-36) U/L ALT 27 (0-35) U/L Alkaline Phosphatase 156 H (38-126) U/L Serum Total Protein 6.8 (6.3-8.2) g/dL Albumin 3.7 (3.5-5.0) g/dL Amylase 63 (30-110) U/L Lipase 30 (23-300) U/L Urine Color (Yellow) Urine Appearance (Clear) Urine pH (4.6-8.0) Ur Specific [place] (1.005-1.030) Urine Protein (Negative) Urine Glucose (UA) (Negative) mg/dL Urine Ketones (Negative) Urine Blood (Negative) Urine Nitrite (Negative) Urine Bilirubin (Negative) Urine Urobilinogen (0.2) mg/dL Ur Leukocyte Esterase (Negative) U Hyaline Cast (Auto) (0-2) /LPF Urine Microscopic RBC (0-5) /HPF Urine Microscopic WBC (0-5) /HPF Ur Epithelial Cells (None Seen) /HPF Urine Bacteria (None Seen) /HPF Urine Yeast (Budding) (None Seen) /HPF Urine Culture Reflexed (NO) Influenza Type A Ag (NEGATIVE) Influenza Type B Ag (NEGATIVE) RSV (PCR) (NEGATIVE) SARS-CoV-2 (PCR) (NEGATIVE) 08/29/22 08/29/22 08/29/22 Range/Units 18:56 19:00 21:07 WBC (4.0-10.5) x10^3/uL RBC (4.1-5.4) x10^6/uL Hgb (12.0-16.0) g/dL Hct (35-47) % MCV (78-100) fL MCH (26-32) pg MCHC (32-36) g/dL RDW (11.5-14.0) % Plt Count (150-450) x10^3/uL MPV (7.5-11.0) fL Gran % (36.0-66.0) % Immature Gran % (Auto) (0.00-0.4) % Nucleat RBC Rel Count (0.00-0.1) % Eos # (Auto) (0-0.5) x10^3/uL Immature Gran # (Auto) (0.00-0.03) x10^3u/L Absolute Lymphs (auto) (1.0-4.6) x10^3/uL Absolute Monos (auto) (0.0-1.3) x10^3/uL Absolute Nucleated RBC (0.00-0.01) x10^3u/L Lymphocytes % (24.0-44.0) % Monocytes % (0.0-12.0) % Eosinophils % (0.00-5.0) % Basophils % (0.0-0.4) % Absolute Granulocytes (1.4-6.9) x10^3/uL Basophils # (0-0.4) x10^3/uL Sodium (137-145) mmol/L Potassium (3.5-5.1) mmol/L Chloride (98-107) mmol/L Carbon Dioxide (22-30) mmol/L Anion Gap (5-15) MEQ/L BUN (7-17) mg/dL Creatinine (0.52-1.04) mg/dL Estimated GFR ML/MIN Glucose (74-106) mg/dL POC Glucometer (50 to 500) mg/dL Lactic Acid 2.2 H 1.2 (0.4-2.0) Calcium (8.4-10.2) mg/dL Magnesium (1.6-2.3) mg/dL Total Bilirubin (0.2-1.3) mg/dL Direct Bilirubin (0.0-0.4) mg/dL AST (14-36) U/L ALT (0-35) U/L Alkaline Phosphatase (38-126) U/L Serum Total Protein (6.3-8.2) g/dL Albumin (3.5-5.0) g/dL Amylase (30-110) U/L Lipase (23-300) U/L Urine Color (Yellow) Urine Appearance (Clear) Urine pH (4.6-8.0) Ur Specific [place] (1.005-1.030) Urine Protein (Negative) Urine Glucose (UA) (Negative) mg/dL Urine Ketones (Negative) Urine Blood (Negative) Urine Nitrite (Negative) Urine Bilirubin (Negative) Urine Urobilinogen (0.2) mg/dL Ur Leukocyte Esterase (Negative) U Hyaline Cast (Auto) (0-2) /LPF Urine Microscopic RBC (0-5) /HPF Urine Microscopic WBC (0-5) /HPF Ur Epithelial Cells (None Seen) /HPF Urine Bacteria (None Seen) /HPF Urine Yeast (Budding) (None Seen) /HPF Urine Culture Reflexed (NO) Influenza Type A Ag NEGATIVE (NEGATIVE) Influenza Type B Ag NEGATIVE (NEGATIVE) RSV (PCR) NEGATIVE (NEGATIVE) SARS-CoV-2 (PCR) NEGATIVE (NEGATIVE) 08/29/22 08/29/22 08/29/22 Range/Units 21:20 21:31 23:10 WBC (4.0-10.5) x10^3/uL RBC (4.1-5.4) x10^6/uL Hgb (12.0-16.0) g/dL Hct (35-47) % MCV (78-100) fL MCH (26-32) pg MCHC (32-36) g/dL RDW (11.5-14.0) % Plt Count (150-450) x10^3/uL MPV (7.5-11.0) fL Gran % (36.0-66.0) % Immature Gran % (Auto) (0.00-0.4) % Nucleat RBC Rel Count (0.00-0.1) % Eos # (Auto) (0-0.5) x10^3/uL Immature Gran # (Auto) (0.00-0.03) x10^3u/L Absolute Lymphs (auto) (1.0-4.6) x10^3/uL Absolute Monos (auto) (0.0-1.3) x10^3/uL Absolute Nucleated RBC (0.00-0.01) x10^3u/L Lymphocytes % (24.0-44.0) % Monocytes % (0.0-12.0) % Eosinophils % (0.00-5.0) % Basophils % (0.0-0.4) % Absolute Granulocytes (1.4-6.9) x10^3/uL Basophils # (0-0.4) x10^3/uL Sodium 134 L 135 L (137-145) mmol/L Potassium 4.8 D 4.8 (3.5-5.1) mmol/L Chloride 99 102 (98-107) mmol/L Carbon Dioxide 14 L* 13 L* (22-30) mmol/L Anion Gap 25.7 H 24.8 H (5-15) MEQ/L BUN 37 H 35 H (7-17) mg/dL Creatinine 1.25 H 1.14 H (0.52-1.04) mg/dL Estimated GFR 46.5 51.7 ML/MIN Glucose 294 H 294 H (74-106) mg/dL POC Glucometer (50 to 500) mg/dL Lactic Acid (0.4-2.0) Calcium 8.8 8.3 L (8.4-10.2) mg/dL Magnesium (1.6-2.3) mg/dL Total Bilirubin (0.2-1.3) mg/dL Direct Bilirubin (0.0-0.4) mg/dL AST (14-36) U/L ALT (0-35) U/L Alkaline Phosphatase (38-126) U/L Serum Total Protein (6.3-8.2) g/dL Albumin (3.5-5.0) g/dL Amylase (30-110) U/L Lipase (23-300) U/L Urine Color Yellow (Yellow) Urine Appearance Cloudy A (Clear) Urine pH 5.0 (4.6-8.0) Ur Specific [place] 1.020 (1.005-1.030) Urine Protein 30 (Negative) Urine Glucose (UA) 250 A (Negative) mg/dL Urine Ketones 15 A (Negative) Urine Blood Trace (Negative) Urine Nitrite Negative (Negative) Urine Bilirubin Negative (Negative) Urine Urobilinogen 0.2 (0.2) mg/dL Ur Leukocyte Esterase Moderate A (Negative) U Hyaline Cast (Auto) NONE SEEN (0-2) /LPF Urine Microscopic RBC >100 A (0-5) /HPF Urine Microscopic WBC 21-50 A (0-5) /HPF Ur Epithelial Cells None Seen (None Seen) /HPF Urine Bacteria Many A (None Seen) /HPF Urine Yeast (Budding) Many A (None Seen) /HPF Urine Culture Reflexed YES (NO) Influenza Type A Ag (NEGATIVE) Influenza Type B Ag (NEGATIVE) RSV (PCR) (NEGATIVE) SARS-CoV-2 (PCR) (NEGATIVE) 08/30/22 08/30/22 08/30/22 Range/Units 04:00 04:47 04:47 WBC 15.0 H (4.0-10.5) x10^3/uL RBC 3.24 L (4.1-5.4) x10^6/uL Hgb 10.3 L (12.0-16.0) g/dL Hct 32.3 L (35-47) % MCV 99.7 (78-100) fL MCH 31.8 (26-32) pg MCHC 31.9 L (32-36) g/dL RDW 15.5 H (11.5-14.0) % Plt Count 205 (150-450) x10^3/uL MPV 10.5 (7.5-11.0) fL Gran % 89.9 H (36.0-66.0) % Immature Gran % (Auto) 1.1 H (0.00-0.4) % Nucleat RBC Rel Count 0.0 (0.00-0.1) % Eos # (Auto) 0 (0-0.5) x10^3/uL Immature Gran # (Auto) 0.16 H (0.00-0.03) x10^3u/L Absolute Lymphs (auto) 0.61 L (1.0-4.6) x10^3/uL Absolute Monos (auto) 0.69 (0.0-1.3) x10^3/uL Absolute Nucleated RBC 0.00 (0.00-0.01) x10^3u/L Lymphocytes % 4.1 L (24.0-44.0) % Monocytes % 4.6 (0.0-12.0) % Eosinophils % 0.0 (0.00-5.0) % Basophils % 0.3 (0.0-0.4) % Absolute Granulocytes 13.46 H (1.4-6.9) x10^3/uL Basophils # 0.05 (0-0.4) x10^3/uL Sodium 132 L (137-145) mmol/L Potassium 6.0 H* D (3.5-5.1) mmol/L Chloride 97 L (98-107) mmol/L Carbon Dioxide 6 L* (22-30) mmol/L Anion Gap 34.7 H (5-15) MEQ/L BUN 38 H (7-17) mg/dL Creatinine 1.44 H (0.52-1.04) mg/dL Estimated GFR 39.5 ML/MIN Glucose 623 H* (74-106) mg/dL POC Glucometer (50 to 500) mg/dL Lactic Acid (0.4-2.0) Calcium 8.8 (8.4-10.2) mg/dL Magnesium 2.0 (1.6-2.3) mg/dL Total Bilirubin 0.50 (0.2-1.3) mg/dL Direct Bilirubin (0.0-0.4) mg/dL AST 29 (14-36) U/L ALT 24 (0-35) U/L Alkaline Phosphatase 188 H (38-126) U/L Serum Total Protein 6.8 (6.3-8.2) g/dL Albumin 3.8 (3.5-5.0) g/dL Amylase (30-110) U/L Lipase (23-300) U/L Urine Color (Yellow) Urine Appearance (Clear) Urine pH (4.6-8.0) Ur Specific [place] (1.005-1.030) Urine Protein (Negative) Urine Glucose (UA) (Negative) mg/dL Urine Ketones (Negative) Urine Blood (Negative) Urine Nitrite (Negative) Urine Bilirubin (Negative) Urine Urobilinogen (0.2) mg/dL Ur Leukocyte Esterase (Negative) U Hyaline Cast (Auto) (0-2) /LPF Urine Microscopic RBC (0-5) /HPF Urine Microscopic WBC (0-5) /HPF Ur Epithelial Cells (None Seen) /HPF Urine Bacteria (None Seen) /HPF Urine Yeast (Budding) (None Seen) /HPF Urine Culture Reflexed (NO) Influenza Type A Ag (NEGATIVE) Influenza Type B Ag (NEGATIVE) RSV (PCR) (NEGATIVE) SARS-CoV-2 (PCR) (NEGATIVE) 08/30/22 08/30/22 08/30/22 Range/Units 06:28 07:03 08:10 WBC (4.0-10.5) x10^3/uL RBC (4.1-5.4) x10^6/uL Hgb (12.0-16.0) g/dL Hct (35-47) % MCV (78-100) fL MCH (26-32) pg MCHC (32-36) g/dL RDW (11.5-14.0) % Plt Count (150-450) x10^3/uL MPV (7.5-11.0) fL Gran % (36.0-66.0) % Immature Gran % (Auto) (0.00-0.4) % Nucleat RBC Rel Count (0.00-0.1) % Eos # (Auto) (0-0.5) x10^3/uL Immature Gran # (Auto) (0.00-0.03) x10^3u/L Absolute Lymphs (auto) (1.0-4.6) x10^3/uL Absolute Monos (auto) (0.0-1.3) x10^3/uL Absolute Nucleated RBC (0.00-0.01) x10^3u/L Lymphocytes % (24.0-44.0) % Monocytes % (0.0-12.0) % Eosinophils % (0.00-5.0) % Basophils % (0.0-0.4) % Absolute Granulocytes (1.4-6.9) x10^3/uL Basophils # (0-0.4) x10^3/uL Sodium (137-145) mmol/L Potassium (3.5-5.1) mmol/L Chloride (98-107) mmol/L Carbon Dioxide (22-30) mmol/L Anion Gap (5-15) MEQ/L BUN (7-17) mg/dL Creatinine (0.52-1.04) mg/dL Estimated GFR ML/MIN Glucose (74-106) mg/dL POC Glucometer 584 H* 505 H* 459 H (50 to 500) mg/dL Lactic Acid (0.4-2.0) Calcium (8.4-10.2) mg/dL Magnesium (1.6-2.3) mg/dL Total Bilirubin (0.2-1.3) mg/dL Direct Bilirubin (0.0-0.4) mg/dL AST (14-36) U/L ALT (0-35) U/L Alkaline Phosphatase (38-126) U/L Serum Total Protein (6.3-8.2) g/dL Albumin (3.5-5.0) g/dL Amylase (30-110) U/L Lipase (23-300) U/L Urine Color (Yellow) Urine Appearance (Clear) Urine pH (4.6-8.0) Ur Specific [place] (1.005-1.030) Urine Protein (Negative) Urine Glucose (UA) (Negative) mg/dL Urine Ketones (Negative) Urine Blood (Negative) Urine Nitrite (Negative) Urine Bilirubin (Negative) Urine Urobilinogen (0.2) mg/dL Ur Leukocyte Esterase (Negative) U Hyaline Cast (Auto) (0-2) /LPF Urine Microscopic RBC (0-5) /HPF Urine Microscopic WBC (0-5) /HPF Ur Epithelial Cells (None Seen) /HPF Urine Bacteria (None Seen) /HPF Urine Yeast (Budding) (None Seen) /HPF Urine Culture Reflexed (NO) Influenza Type A Ag (NEGATIVE) Influenza Type B Ag (NEGATIVE) RSV (PCR) (NEGATIVE) SARS-CoV-2 (PCR) (NEGATIVE) 08/30/22 08/30/22 08/30/22 Range/Units 09:06 09:35 09:36 WBC (4.0-10.5) x10^3/uL RBC (4.1-5.4) x10^6/uL Hgb (12.0-16.0) g/dL Hct (35-47) % MCV (78-100) fL MCH (26-32) pg MCHC (32-36) g/dL RDW (11.5-14.0) % Plt Count (150-450) x10^3/uL MPV (7.5-11.0) fL Gran % (36.0-66.0) % Immature Gran % (Auto) (0.00-0.4) % Nucleat RBC Rel Count (0.00-0.1) % Eos # (Auto) (0-0.5) x10^3/uL Immature Gran # (Auto) (0.00-0.03) x10^3u/L Absolute Lymphs (auto) (1.0-4.6) x10^3/uL Absolute Monos (auto) (0.0-1.3) x10^3/uL Absolute Nucleated RBC (0.00-0.01) x10^3u/L Lymphocytes % (24.0-44.0) % Monocytes % (0.0-12.0) % Eosinophils % (0.00-5.0) % Basophils % (0.0-0.4) % Absolute Granulocytes (1.4-6.9) x10^3/uL Basophils # (0-0.4) x10^3/uL Sodium 137 (137-145) mmol/L Potassium 3.9 D (3.5-5.1) mmol/L Chloride 106 (98-107) mmol/L Carbon Dioxide 11 L* (22-30) mmol/L Anion Gap 24.8 H (5-15) MEQ/L BUN 36 H (7-17) mg/dL Creatinine 1.14 H (0.52-1.04) mg/dL Estimated GFR 51.7 ML/MIN Glucose 363 H (74-106) mg/dL POC Glucometer 406 H 377 H (50 to 500) mg/dL Lactic Acid (0.4-2.0) Calcium 7.8 L (8.4-10.2) mg/dL Magnesium (1.6-2.3) mg/dL Total Bilirubin 0.30 (0.2-1.3) mg/dL Direct Bilirubin 0.2 (0.0-0.4) mg/dL AST 29 (14-36) U/L ALT 22 (0-35) U/L Alkaline Phosphatase 128 H (38-126) U/L Serum Total Protein 5.7 L (6.3-8.2) g/dL Albumin 3.0 L (3.5-5.0) g/dL Amylase (30-110) U/L Lipase (23-300) U/L Urine Color (Yellow) Urine Appearance (Clear) Urine pH (4.6-8.0) Ur Specific [place] (1.005-1.030) Urine Protein (Negative) Urine Glucose (UA) (Negative) mg/dL Urine Ketones (Negative) Urine Blood (Negative) Urine Nitrite (Negative) Urine Bilirubin (Negative) Urine Urobilinogen (0.2) mg/dL Ur Leukocyte Esterase (Negative) U Hyaline Cast (Auto) (0-2) /LPF Urine Microscopic RBC (0-5) /HPF Urine Microscopic WBC (0-5) /HPF Ur Epithelial Cells (None Seen) /HPF Urine Bacteria (None Seen) /HPF Urine Yeast (Budding) (None Seen) /HPF Urine Culture Reflexed (NO) Influenza Type A Ag (NEGATIVE) Influenza Type B Ag (NEGATIVE) RSV (PCR) (NEGATIVE) SARS-CoV-2 (PCR) (NEGATIVE) 08/30/22 08/30/22 08/30/22 Range/Units 11:11 12:15 13:30 WBC (4.0-10.5) x10^3/uL RBC (4.1-5.4) x10^6/uL Hgb (12.0-16.0) g/dL Hct (35-47) % MCV (78-100) fL MCH (26-32) pg MCHC (32-36) g/dL RDW (11.5-14.0) % Plt Count (150-450) x10^3/uL MPV (7.5-11.0) fL Gran % (36.0-66.0) % Immature Gran % (Auto) (0.00-0.4) % Nucleat RBC Rel Count (0.00-0.1) % Eos # (Auto) (0-0.5) x10^3/uL Immature Gran # (Auto) (0.00-0.03) x10^3u/L Absolute Lymphs (auto) (1.0-4.6) x10^3/uL Absolute Monos (auto) (0.0-1.3) x10^3/uL Absolute Nucleated RBC (0.00-0.01) x10^3u/L Lymphocytes % (24.0-44.0) % Monocytes % (0.0-12.0) % Eosinophils % (0.00-5.0) % Basophils % (0.0-0.4) % Absolute Granulocytes (1.4-6.9) x10^3/uL Basophils # (0-0.4) x10^3/uL Sodium 134 L (137-145) mmol/L Potassium 4.4 (3.5-5.1) mmol/L Chloride 106 (98-107) mmol/L Carbon Dioxide 19 L (22-30) mmol/L Anion Gap 12.7 (5-15) MEQ/L BUN 34 H (7-17) mg/dL Creatinine 0.99 (0.52-1.04) mg/dL Estimated GFR > 60.0 ML/MIN Glucose 266 H (74-106) mg/dL POC Glucometer 316 H 252 H (50 to 500) mg/dL Lactic Acid (0.4-2.0) Calcium 7.2 L (8.4-10.2) mg/dL Magnesium 1.6 (1.6-2.3) mg/dL Total Bilirubin 0.20 (0.2-1.3) mg/dL Direct Bilirubin 0.2 (0.0-0.4) mg/dL AST 24 (14-36) U/L ALT 20 (0-35) U/L Alkaline Phosphatase 122 (38-126) U/L Serum Total Protein 4.9 L (6.3-8.2) g/dL Albumin 2.5 L (3.5-5.0) g/dL Amylase (30-110) U/L Lipase (23-300) U/L Urine Color (Yellow) Urine Appearance (Clear) Urine pH (4.6-8.0) Ur Specific [place] (1.005-1.030) Urine Protein (Negative) Urine Glucose (UA) (Negative) mg/dL Urine Ketones (Negative) Urine Blood (Negative) Urine Nitrite (Negative) Urine Bilirubin (Negative) Urine Urobilinogen (0.2) mg/dL Ur Leukocyte Esterase (Negative) U Hyaline Cast (Auto) (0-2) /LPF Urine Microscopic RBC (0-5) /HPF Urine Microscopic WBC (0-5) /HPF Ur Epithelial Cells (None Seen) /HPF Urine Bacteria (None Seen) /HPF Urine Yeast (Budding) (None Seen) /HPF Urine Culture Reflexed (NO) Influenza Type A Ag (NEGATIVE) Influenza Type B Ag (NEGATIVE) RSV (PCR) (NEGATIVE) SARS-CoV-2 (PCR) (NEGATIVE) 08/30/22 08/30/2208/30/23 Range/Units 14:45 15:52 16:45 WBC (4.0-10.5) x10^3/uL RBC (4.1-5.4) x10^6/uL Hgb (12.0-16.0) g/dL Hct (35-47) % MCV (78-100) fL MCH (26-32) pg MCHC (32-36) g/dL RDW (11.5-14.0) % Plt Count (150-450) x10^3/uL MPV (7.5-11.0) fL Gran % (36.0-66.0) % Immature Gran % (Auto) (0.00-0.4) % Nucleat RBC Rel Count (0.00-0.1) % Eos # (Auto) (0-0.5) x10^3/uL Immature Gran # (Auto) (0.00-0.03) x10^3u/L Absolute Lymphs (auto) (1.0-4.6) x10^3/uL Absolute Monos (auto) (0.0-1.3) x10^3/uL Absolute Nucleated RBC (0.00-0.01) x10^3u/L Lymphocytes % (24.0-44.0) % Monocytes % (0.0-12.0) % Eosinophils % (0.00-5.0) % Basophils % (0.0-0.4) % Absolute Granulocytes (1.4-6.9) x10^3/uL Basophils # (0-0.4) x10^3/uL Sodium (137-145) mmol/L Potassium (3.5-5.1) mmol/L Chloride (98-107) mmol/L Carbon Dioxide (22-30) mmol/L Anion Gap (5-15) MEQ/L BUN (7-17) mg/dL Creatinine (0.52-1.04) mg/dL Estimated GFR ML/MIN Glucose (74-106) mg/dL POC Glucometer 223 H 204 H 160 H (50 to 500) mg/dL Lactic Acid (0.4-2.0) Calcium (8.4-10.2) mg/dL Magnesium (1.6-2.3) mg/dL Total Bilirubin (0.2-1.3) mg/dL Direct Bilirubin (0.0-0.4) mg/dL AST (14-36) U/L ALT (0-35) U/L Alkaline Phosphatase (38-126) U/L Serum Total Protein (6.3-8.2) g/dL Albumin (3.5-5.0) g/dL Amylase (30-110) U/L Lipase (23-300) U/L Urine Color (Yellow) Urine Appearance (Clear) Urine pH (4.6-8.0) Ur Specific [place] (1.005-1.030) Urine Protein (Negative) Urine Glucose (UA) (Negative) mg/dL Urine Ketones (Negative) Urine Blood (Negative) Urine Nitrite (Negative) Urine Bilirubin (Negative) Urine Urobilinogen (0.2) mg/dL Ur Leukocyte Esterase (Negative) U Hyaline Cast (Auto) (0-2) /LPF Urine Microscopic RBC (0-5) /HPF Urine Microscopic WBC (0-5) /HPF Ur Epithelial Cells (None Seen) /HPF Urine Bacteria (None Seen) /HPF Urine Yeast (Budding) (None Seen) /HPF Urine Culture Reflexed (NO) Influenza Type A Ag (NEGATIVE) Influenza Type B Ag (NEGATIVE) RSV (PCR) (NEGATIVE) SARS-CoV-2 (PCR) (NEGATIVE) 08/30/22 Range/Units 17:28 WBC (4.0-10.5) x10^3/uL RBC (4.1-5.4) x10^6/uL Hgb (12.0-16.0) g/dL Hct (35-47) % MCV (78-100) fL MCH (26-32) pg MCHC (32-36) g/dL RDW (11.5-14.0) % Plt Count (150-450) x10^3/uL MPV (7.5-11.0) fL Gran % (36.0-66.0) % Immature Gran % (Auto) (0.00-0.4) % Nucleat RBC Rel Count (0.00-0.1) % Eos # (Auto) (0-0.5) x10^3/uL Immature Gran # (Auto) (0.00-0.03) x10^3u/L Absolute Lymphs (auto) (1.0-4.6) x10^3/uL Absolute Monos (auto) (0.0-1.3) x10^3/uL Absolute Nucleated RBC (0.00-0.01) x10^3u/L Lymphocytes % (24.0-44.0) % Monocytes % (0.0-12.0) % Eosinophils % (0.00-5.0) % Basophils % (0.0-0.4) % Absolute Granulocytes (1.4-6.9) x10^3/uL Basophils # (0-0.4) x10^3/uL Sodium (137-145) mmol/L Potassium (3.5-5.1) mmol/L Chloride (98-107) mmol/L Carbon Dioxide (22-30) mmol/L Anion Gap (5-15) MEQ/L BUN (7-17) mg/dL Creatinine (0.52-1.04) mg/dL Estimated GFR ML/MIN Glucose (74-106) mg/dL POC Glucometer 167 H (50 to 500) mg/dL Lactic Acid (0.4-2.0) Calcium (8.4-10.2) mg/dL Magnesium (1.6-2.3) mg/dL Total Bilirubin (0.2-1.3) mg/dL Direct Bilirubin (0.0-0.4) mg/dL AST (14-36) U/L ALT (0-35) U/L Alkaline Phosphatase (38-126) U/L Serum Total Protein (6.3-8.2) g/dL Albumin (3.5-5.0) g/dL Amylase (30-110) U/L Lipase (23-300) U/L Urine Color (Yellow) Urine Appearance (Clear) Urine pH (4.6-8.0) Ur Specific [place] (1.005-1.030) Urine Protein (Negative) Urine Glucose (UA) (Negative) mg/dL Urine Ketones (Negative) Urine Blood (Negative) Urine Nitrite (Negative) Urine Bilirubin (Negative) Urine Urobilinogen (0.2) mg/dL Ur Leukocyte Esterase (Negative) U Hyaline Cast (Auto) (0-2) /LPF Urine Microscopic RBC (0-5) /HPF Urine Microscopic WBC (0-5) /HPF Ur Epithelial Cells (None Seen) /HPF Urine Bacteria (None Seen) /HPF Urine Yeast (Budding) (None Seen) /HPF Urine Culture Reflexed (NO) Influenza Type A Ag (NEGATIVE) Influenza Type B Ag (NEGATIVE) RSV (PCR) (NEGATIVE) SARS-CoV-2 (PCR) (NEGATIVE) - Other Procedures and Tests Respiratory Therapy 08/30/22 06:11 Oxygen Nasal Cannula 2 lpm 08/30/22 09:50 Respiratory Therapy Assessment DAILY Assessment/Plan (1) DKA (diabetic ketoacidosis) Current Visit: Yes Status: Acute Qualifiers: Diabetes mellitus type: type 2 Diabetes mellitus complication detail: without coma Qualified Code(s): E11.10 - Type 2 diabetes mellitus with ketoacidosis without coma Assessment & Plan: Chief Complaint Diagnosis DKA, UTI, MILD DEHYDRATION Allergies Allergy/AdvReac Type Severity Reaction Status Date / Time orphenadrine citrate Allergy Intermediate Verified 08/30/22 01:12 [From Norflex] adhesive tape Allergy Verified 08/30/22 01:12 hydrocodone bitartrate AdvReac Mild Verified 08/30/22 01:12 [From [place]] levofloxacin [From Levaquin] AdvReac Mild Nausea and Verified 08/30/22 01:12 Vomiting Vital Signs (Last 24 hours) Temp Pulse Resp BP BP Pulse Ox 08/30/22 15:54 102 H 20 102/56 97 08/30/22 12:00 102 H 20 92/63 95 08/30/22 09:50 98 H 20 95 08/30/22 07:07 122 H 17 124/62 100 08/30/22 04:00 97.7 F 119 H 24 130/60 98 08/30/22 00:43 98.6 F 121 H 20 122/58 96 08/30/22 00:00 112 H 20 112/75 98 08/29/22 23:00 114 H 18 149/65 97 08/29/22 22:00 112 H 20 134/64 98 08/29/22 21:28 115 H 22 106/40 97 08/29/22 20:28 118 H 20 151/67 99 08/29/22 19:28 120 H 20 126/68 100 08/29/22 18:36 97.3 F 121 H 20 124/81 99 Home Medications Medication Instructions Recorded Confirmed Last Taken Type Aripiprazole 10 mg [Teofilo 10 10 mg PO DAILY 08/30/22 08/30/22 Unknown History MG] Budesonide/Glycopyr/Formoterol 2 puff IH BID 08/30/22 08/30/22 Unknown History [Breztri Aerosphere Inhaler] Gabapentin [Neurontin ] 300 mg PO HS 08/30/22 08/30/22 Unknown History Oxycodone HCl/Acetaminophen 1 each PO Q6H 08/30/22 08/30/22 Unknown History [Oxycodone-Acetaminophen 5-325] Prochlorperazine Maleate 10 mg PO BIDPRN PRN 08/30/22 08/30/22 Unknown History [Compazine] Current Medications Generic Name Dose Route Start Last Admin Trade Name Freq PRN Reason Stop Dose Admin Acetaminophen 650 mg 08/30/22 00:21 Acetaminophen 325 Mg Tablet PO 09/29/22 00:20 Q4H PRN PRN PAIN, FEVER, HEADACHE Alprazolam 1 mg 08/30/22 22:00 Alprazolam 1 Mg Tablet PO 09/29/22 21:59 HS NISSA Aripiprazole 10 mg 08/30/22 10:00 08/30/22 09:40 Aripiprazole 10 Mg Tablet PO 09/29/22 09:59 10 mg DAILY NISSA Administration Cyclobenzaprine HCl 10 mg 08/30/22 01:23 Cyclobenzaprine Hcl 10 Mg Tablet PO 09/29/22 01:22 QID PRN PRN MUSCLE SPASMS Gabapentin 300 mg 08/30/22 22:00 Gabapentin 300 Mg Capsule PO 09/29/22 21:59 HS [facility] Ceftriaxone Sodium/Dextrose 1 g in 50 mls @ 100 mls/hr 08/30/22 22:00 Rocephin 1 Gm-D5w 50 Ml Bag IV 09/02/22 21:59 Q24H22 [facility] INSULIN REGULAR IN 0.9 % NACL 100 unit in 100 mls @ 5.07 mls/hr 08/30/22 05:49 08/30/22 17:32 Myxredlin 100 Unit/100 Ml Bag IV 09/29/22 05:48 0.02 unit/kg/hr .[id number] PRN 1 mls/hr HYPERGLYCEMIA Titration Protocol 0.1 UNIT/KG/HR Potassium Chloride/Sodium Chloride 1,000 mls @ 125 mls/hr 08/30/22 10:15 08/30/22 14:43 Sodium Chloride 0.9% W/ 20 Meq Kcl/Liter IV 09/29/22 10:14 125 mls/hr .Q8H NISSA Administration Insulin Human Regular 0 unit 08/30/22 00:21 Insulin Regular, Human 1 Unit SQ 09/29/22 00:20 UD PRN HYPERGLYCEMIA Nicotine 21 mg 08/30/22 22:00 Nicotine 21 Mg/Patch Patch TOP 09/29/22 21:59 Q24H22 NISSA Oxycodone/Acetaminophen 1 tab 08/30/22 07:00 08/30/22 12:16 Oxycodone Hcl/Apap 5 Mg/325 Mg Tablet PO 09/04/22 06:59 1 tab Q6HT NISSA Administration Humalog Insulin Pump 1 each 08/30/22 07:30 SQ 09/29/22 07:29 UD NISSA Prochlorperazine Edisylate 10 mg 08/30/22 00:21 08/30/22 07:25 Prochlorperazine Edisylate 10 Mg/2 Ml Vial IV 09/29/22 00:20 10 mg Q6H PRN PRN Administration NAUSEA/VOMITING Promethazine HCl 25 mg 08/30/22 07:12 Promethazine Hcl 25 Mg Tablet PO 09/29/22 07:11 QID PRN PRN NAUSEA Fluticasone/Salmeterol 2 puff 08/30/22 09:40 08/30/22 09:48 Fluticasone/Salmeterol 115/21 - 120 Puff Common Canister 09/29/22 09:39 2 puff BIDRT NISSA Administration Simvastatin 40 mg 08/30/22 22:00 Simvastatin 20 Mg Tablet PO 09/29/22 21:59 HS NISSA Tiotropium [place] 1 ea 08/30/22 10:00 08/30/22 09:47 Tiotropium [place] 18 Mcg/Cap Inhaler 09/29/22 09:59 1 ea DAILY NISSA Administration Discontinued Medications Generic Name Dose Route Start Last Admin Trade Name Freq PRN Reason Stop Dose Admin Alprazolam 1 mg 08/30/22 01:30 08/30/22 01:31 Alprazolam 1 Mg Tablet PO 08/30/22 01:31 1 mg ONCE ONE Administration Fluconazole 150 mg 08/29/22 23:39 08/30/22 00:43 Fluconazole 100 Mg Tablet PO 08/29/22 23:40 150 mg ONCE ONE Administration Fluconazole Confirm 08/30/22 00:25 Fluconazole 100 Mg Tablet Administered 08/30/22 00:26 Dose 200 mg .ROUTE .STK-MED ONE Gabapentin 300 mg 08/30/22 01:30 08/30/22 01:31 Gabapentin 300 Mg Capsule PO 08/30/22 01:31 300 mg ONCE ONE Administration Sodium Chloride 1,000 mls @ 999 mls/hr 08/29/22 18:44 08/29/22 20:28 Sodium Chloride 0.9% 1000 Ml IV 08/29/22 19:44 Infused .Q1H1M STA Infusion Sodium Chloride Confirm 08/29/22 18:49 Sodium Chloride 0.9% 1000 Ml Administered 08/29/22 18:50 Dose 1,000 mls @ ud .ROUTE .STK-MED ONE Magnesium Sulfate/Water 2 gm in 50 mls @ 100 mls/hr 08/29/22 19:39 08/29/22 21:41 Magnesium Sulf 2 G/50 Ml Bag IV 08/29/22 20:08 Infused ONCE ONE Infusion Magnesium Sulfate/Dextrose Confirm 08/29/22 20:30 Magnesium 1 Gm / 100 Ml D5w Administered 08/29/22 20:31 Dose 100 mls @ ud IV .STK-MED ONE Magnesium Sulfate/Water Confirm 08/29/22 20:31 Magnesium Sulf 2 G/50 Ml Bag Administered 08/29/22 20:32 Dose 2 gm in 50 mls @ ud IV .STK-MED ONE Sodium Chloride 1,000 mls @ 999 mls/hr 08/29/22 21:32 08/29/22 22:41 Sodium Chloride 0.9% 1000 Ml IV 08/29/22 22:32 Infused .Q1H1M STA Infusion Sodium Chloride Confirm 08/29/22 21:32 Sodium Chloride 0.9% 1000 Ml Administered 08/29/22 21:33 Dose 1,000 mls @ ud .ROUTE .STK-MED ONE Ceftriaxone Sodium/Dextrose 1 g in 50 mls @ 100 mls/hr 08/29/22 22:37 08/29/22 23:26 Rocephin 1 Gm-D5w 50 Ml Bag IV 08/29/22 23:06 Infused STAT STA Infusion Ceftriaxone Sodium/Dextrose Confirm 08/29/22 22:42 Rocephin 1 Gm-D5w 50 Ml Bag Administered 08/29/22 22:43 Dose 1 g in 50 mls @ ud IV .STK-MED ONE Sodium Chloride 1,000 mls @ 125 mls/hr 08/30/22 00:21 08/30/22 08:24 Sodium Chloride 0.9% 1000 Ml IV 09/29/22 00:20 125 mls/hr .Q8H NISSA Administration Sodium Chloride 1,000 mls @ 999 mls/hr 08/30/22 05:51 08/30/22 06:09 Sodium Chloride 0.9% 1000 Ml IV 08/30/22 06:51 999 mls/hr .Q1H1M STA Administration Sodium Chloride Confirm 08/30/22 06:03 Sodium Chloride 0.9% 1000 Ml Administered 08/30/22 06:04 Dose 2,000 mls @ ud .ROUTE .STK-MED ONE Miscellaneous Information 1 each 08/30/22 07:30 Medication Intervention 1 Each Each 09/29/22 07:29 .RT TO CHECK NISSA Nicotine 21 mg 08/30/22 01:45 08/30/22 01:35 Nicotine 21 Mg/Patch Patch TOP 09/29/22 01:44 21 mg Q24H NISSA Administration Ondansetron HCl 4 mg 08/29/22 22:31 08/29/22 22:37 Ondansetron Hcl 4 Mg/2 Ml Vial IV 08/29/22 22:32 4 mg STAT ONE Administration Ondansetron HCl Confirm 08/29/22 22:36 Ondansetron Hcl 4 Mg/2 Ml Vial Administered 08/29/22 22:37 Dose 4 mg .ROUTE .STK-MED ONE Oxycodone/Acetaminophen 1 tab 08/30/22 01:30 08/30/22 01:32 Oxycodone Hcl/Apap 5 Mg/325 Mg Tablet PO 09/04/22 01:29 1 tab Q6H NISSA Administration Pantoprazole Sodium 40 mg 08/29/22 18:44 08/29/22 18:52 Pantoprazole 40 Mg Vial IV 08/29/22 18:45 40 mg STAT ONE Administration Pantoprazole Sodium Confirm 08/29/22 18:48 Pantoprazole 40 Mg Vial Administered 08/29/22 18:49 Dose 40 mg IV .STK-MED ONE Prochlorperazine Edisylate 10 mg 08/29/22 18:44 08/29/22 18:54 Prochlorperazine Edisylate 10 Mg/2 Ml Vial IV 08/29/22 18:45 10 mg STAT ONE Administration Prochlorperazine Edisylate Confirm 08/29/22 18:49 Prochlorperazine Edisylate 10 Mg/2 Ml Vial Administered 08/29/22 18:50 Dose 10 mg .ROUTE .STK-MED ONE Tiotropium [place] Confirm 08/30/22 09:41 Tiotropium [place] 18 Mcg/Cap Inhaler Administered 08/30/22 09:42 Dose 1 ea IH .STK-MED ONE Intake & Output (Last 24 hours) 08/28/22 08/29/22 08/30/22 08/31/22 11:59 11:59 11:59 11:59 Intake Total 240 4260 Output Total 1550 600 Balance -1310 3660 Weight 50.7 kg Microbiology Results (Last 24 hours) 08/30/22 06:48 Catherized Urine Culture - Pending 08/29/22 21:31 Clean Catch Midstream Urine Culture - Pending Laboratory Results (Last 24 hours) 08/30/22 08/30/22 08/30/22 17:28 16:45 15:52 WBC RBC Hgb Hct MCV MCH MCHC RDW Plt Count MPV Gran % Immature Gran % (Auto) Nucleat RBC Rel Count Eos # (Auto) Immature Gran # (Auto) Absolute Lymphs (auto) Absolute Monos (auto) Absolute Nucleated RBC Lymphocytes % Monocytes % Eosinophils % Basophils % Absolute Granulocytes Basophils # Sodium Potassium Chloride Carbon Dioxide Anion Gap BUN Creatinine Estimated GFR Glucose POC Glucometer 167 H 160 H 204 H Lactic Acid Calcium Magnesium Total Bilirubin Direct Bilirubin AST ALT Alkaline Phosphatase Serum Total Protein Albumin Amylase Lipase Urine Color Urine Appearance Urine pH Ur Specific [place] Urine Protein Urine Glucose (UA) Urine Ketones Urine Blood Urine Nitrite Urine Bilirubin Urine Urobilinogen Ur Leukocyte Esterase U Hyaline Cast (Auto) Urine Microscopic RBC Urine Microscopic WBC Ur Epithelial Cells Urine Bacteria Urine Yeast (Budding) Urine Culture Reflexed Influenza Type A Ag Influenza Type B Ag RSV (PCR) SARS-CoV-2 (PCR) 08/30/22 08/30/22 08/30/22 14:45 13:30 12:15 WBC RBC Hgb Hct MCV MCH MCHC RDW Plt Count MPV Gran % Immature Gran % (Auto) Nucleat RBC Rel Count Eos # (Auto) Immature Gran # (Auto) Absolute Lymphs (auto) Absolute Monos (auto) Absolute Nucleated RBC Lymphocytes % Monocytes % Eosinophils % Basophils % Absolute Granulocytes Basophils # Sodium 134 L Potassium 4.4 Chloride 106 Carbon Dioxide 19 L Anion Gap 12.7 BUN 34 H Creatinine 0.99 Estimated GFR > 60.0 Glucose 266 H POC Glucometer 223 H 252 H Lactic Acid Calcium 7.2 L Magnesium 1.6 Total Bilirubin 0.20 Direct Bilirubin 0.2 AST 24 ALT 20 Alkaline Phosphatase 122 Serum Total Protein 4.9 L Albumin 2.5 L Amylase Lipase Urine Color Urine Appearance Urine pH Ur Specific [place] Urine Protein Urine Glucose (UA) Urine Ketones Urine Blood Urine Nitrite Urine Bilirubin Urine Urobilinogen Ur Leukocyte Esterase U Hyaline Cast (Auto) Urine Microscopic RBC Urine Microscopic WBC Ur Epithelial Cells Urine Bacteria Urine Yeast (Budding) Urine Culture Reflexed Influenza Type A Ag Influenza Type B Ag RSV (PCR) SARS-CoV-2 (PCR) 08/30/22 08/30/22 08/30/22 11:11 09:36 09:35 WBC RBC Hgb Hct MCV MCH MCHC RDW Plt Count MPV Gran % Immature Gran % (Auto) Nucleat RBC Rel Count Eos # (Auto) Immature Gran # (Auto) Absolute Lymphs (auto) Absolute Monos (auto) Absolute Nucleated RBC Lymphocytes % Monocytes % Eosinophils % Basophils % Absolute Granulocytes Basophils # Sodium 137 Potassium 3.9 D Chloride 106 Carbon Dioxide 11 L* Anion Gap 24.8 H BUN 36 H Creatinine 1.14 H Estimated GFR 51.7 Glucose 363 H POC Glucometer 316 H 377 H Lactic Acid Calcium 7.8 L Magnesium Total Bilirubin 0.30 Direct Bilirubin 0.2 AST 29 ALT 22 Alkaline Phosphatase 128 H Serum Total Protein 5.7 L Albumin 3.0 L Amylase Lipase Urine Color Urine Appearance Urine pH Ur Specific [place] Urine Protein Urine Glucose (UA) Urine Ketones Urine Blood Urine Nitrite Urine Bilirubin Urine Urobilinogen Ur Leukocyte Esterase U Hyaline Cast (Auto) Urine Microscopic RBC Urine Microscopic WBC Ur Epithelial Cells Urine Bacteria Urine Yeast (Budding) Urine Culture Reflexed Influenza Type A Ag Influenza Type B Ag RSV (PCR) SARS-CoV-2 (PCR) 08/30/22 08/30/22 08/30/22 09:06 08:10 07:03 WBC RBC Hgb Hct MCV MCH MCHC RDW Plt Count MPV Gran % Immature Gran % (Auto) Nucleat RBC Rel Count Eos # (Auto) Immature Gran # (Auto) Absolute Lymphs (auto) Absolute Monos (auto) Absolute Nucleated RBC Lymphocytes % Monocytes % Eosinophils % Basophils % Absolute Granulocytes Basophils # Sodium Potassium Chloride Carbon Dioxide Anion Gap BUN Creatinine Estimated GFR Glucose POC Glucometer 406 H 459 H 505 H* Lactic Acid Calcium Magnesium Total Bilirubin Direct Bilirubin AST ALT Alkaline Phosphatase Serum Total Protein Albumin Amylase Lipase Urine Color Urine Appearance Urine pH Ur Specific [place] Urine Protein Urine Glucose (UA) Urine Ketones Urine Blood Urine Nitrite Urine Bilirubin Urine Urobilinogen Ur Leukocyte Esterase U Hyaline Cast (Auto) Urine Microscopic RBC Urine Microscopic WBC Ur Epithelial Cells Urine Bacteria Urine Yeast (Budding) Urine Culture Reflexed Influenza Type A Ag Influenza Type B Ag RSV (PCR) SARS-CoV-2 (PCR) 08/30/22 08/30/22 08/30/22 06:28 04:47 04:47 WBC RBC Hgb Hct MCV MCH MCHC RDW Plt Count MPV Gran % Immature Gran % (Auto) Nucleat RBC Rel Count Eos # (Auto) Immature Gran # (Auto) Absolute Lymphs (auto) Absolute Monos (auto) Absolute Nucleated RBC Lymphocytes % Monocytes % Eosinophils % Basophils % Absolute Granulocytes Basophils # Sodium 132 L Potassium 6.0 H* D Chloride 97 L Carbon Dioxide 6 L* Anion Gap 34.7 H BUN 38 H Creatinine 1.44 H Estimated GFR 39.5 Glucose 623 H* POC Glucometer 584 H* Lactic Acid Calcium 8.8 Magnesium 2.0 Total Bilirubin 0.50 Direct Bilirubin AST 29 ALT 24 Alkaline Phosphatase 188 H Serum Total Protein 6.8 Albumin 3.8 Amylase Lipase Urine Color Urine Appearance Urine pH Ur Specific [place] Urine Protein Urine Glucose (UA) Urine Ketones Urine Blood Urine Nitrite Urine Bilirubin Urine Urobilinogen Ur Leukocyte Esterase U Hyaline Cast (Auto) Urine Microscopic RBC Urine Microscopic WBC Ur Epithelial Cells Urine Bacteria Urine Yeast (Budding) Urine Culture Reflexed Influenza Type A Ag Influenza Type B Ag RSV (PCR) SARS-CoV-2 (PCR) 08/30/22 08/29/22 08/29/22 04:00 23:10 21:31 WBC 15.0 H RBC 3.24 L Hgb 10.3 L Hct 32.3 L MCV 99.7 MCH 31.8 MCHC 31.9 L RDW 15.5 H Plt Count 205 MPV 10.5 Gran % 89.9 H Immature Gran % (Auto) 1.1 H Nucleat RBC Rel Count 0.0 Eos # (Auto) 0 Immature Gran # (Auto) 0.16 H Absolute Lymphs (auto) 0.61 L Absolute Monos (auto) 0.69 Absolute Nucleated RBC 0.00 Lymphocytes % 4.1 L Monocytes % 4.6 Eosinophils % 0.0 Basophils % 0.3 Absolute Granulocytes 13.46 H Basophils # 0.05 Sodium 135 L Potassium 4.8 Chloride 102 Carbon Dioxide 13 L* Anion Gap 24.8 H BUN 35 H Creatinine 1.14 H Estimated GFR 51.7 Glucose 294 H POC Glucometer Lactic Acid Calcium 8.3 L Magnesium Total Bilirubin Direct Bilirubin AST ALT Alkaline Phosphatase Serum Total Protein Albumin Amylase Lipase Urine Color Yellow Urine Appearance Cloudy A Urine pH 5.0 Ur Specific [place] 1.020 Urine Protein 30 Urine Glucose (UA) 250 A Urine Ketones 15 A Urine Blood Trace Urine Nitrite Negative Urine Bilirubin Negative Urine Urobilinogen 0.2 Ur Leukocyte Esterase Moderate A U Hyaline Cast (Auto) NONE SEEN Urine Microscopic RBC >100 A Urine Microscopic WBC 21-50 A Ur Epithelial Cells None Seen Urine Bacteria Many A Urine Yeast (Budding) Many A Urine Culture Reflexed YES Influenza Type A Ag Influenza Type B Ag RSV (PCR) SARS-CoV-2 (PCR) 08/29/22 08/29/22 08/29/22 21:20 21:07 19:00 WBC RBC Hgb Hct MCV MCH MCHC RDW Plt Count MPV Gran % Immature Gran % (Auto) Nucleat RBC Rel Count Eos # (Auto) Immature Gran # (Auto) Absolute Lymphs (auto) Absolute Monos (auto) Absolute Nucleated RBC Lymphocytes % Monocytes % Eosinophils % Basophils % Absolute Granulocytes Basophils # Sodium 134 L Potassium 4.8 D Chloride 99 Carbon Dioxide 14 L* Anion Gap 25.7 H BUN 37 H Creatinine 1.25 H Estimated GFR 46.5 Glucose 294 H POC Glucometer Lactic Acid 1.2 Calcium 8.8 Magnesium Total Bilirubin Direct Bilirubin AST ALT Alkaline Phosphatase Serum Total Protein Albumin Amylase Lipase Urine Color Urine Appearance Urine pH Ur Specific [place] Urine Protein Urine Glucose (UA) Urine Ketones Urine Blood Urine Nitrite Urine Bilirubin Urine Urobilinogen Ur Leukocyte Esterase U Hyaline Cast (Auto) Urine Microscopic RBC Urine Microscopic WBC Ur Epithelial Cells Urine Bacteria Urine Yeast (Budding) Urine Culture Reflexed Influenza Type A Ag NEGATIVE Influenza Type B Ag NEGATIVE RSV (PCR) NEGATIVE SARS-CoV-2 (PCR) NEGATIVE 08/29/22 08/29/22 08/29/22 18:56 18:45 18:45 WBC RBC Hgb Hct MCV MCH MCHC RDW Plt Count MPV Gran % Immature Gran % (Auto) Nucleat RBC Rel Count Eos # (Auto) Immature Gran # (Auto) Absolute Lymphs (auto) Absolute Monos (auto) Absolute Nucleated RBC Lymphocytes % Monocytes % Eosinophils % Basophils % Absolute Granulocytes Basophils # Sodium 135 L Potassium 3.8 Chloride 97 L Carbon Dioxide 20 L Anion Gap 22.2 H BUN 38 H Creatinine 1.32 H Estimated GFR 43.6 Glucose 238 H POC Glucometer Lactic Acid 2.2 H Calcium 9.4 Magnesium 1.5 L Total Bilirubin 0.50 Direct Bilirubin AST 28 ALT 27 Alkaline Phosphatase 156 H Serum Total Protein 6.8 Albumin 3.7 Amylase 63 Lipase 30 Urine Color Urine Appearance Urine pH Ur Specific [place] Urine Protein Urine Glucose (UA) Urine Ketones Urine Blood Urine Nitrite Urine Bilirubin Urine Urobilinogen Ur Leukocyte Esterase U Hyaline Cast (Auto) Urine Microscopic RBC Urine Microscopic WBC Ur Epithelial Cells Urine Bacteria Urine Yeast (Budding) Urine Culture Reflexed Influenza Type A Ag Influenza Type B Ag RSV (PCR) SARS-CoV-2 (PCR) 08/29/22 18:45 WBC 14.0 H RBC 3.50 L Hgb 10.8 L Hct 33.4 L MCV 95.4 MCH 30.9 MCHC 32.3 RDW 14.8 H Plt Count 210 MPV 10.5 Gran % 82.5 H Immature Gran % (Auto) 0.5 H Nucleat RBC Rel Count 0.0 Eos # (Auto) 0.02 Immature Gran # (Auto) 0.07 H Absolute Lymphs (auto) 1.64 Absolute Monos (auto) 0.69 Absolute Nucleated RBC 0.00 Lymphocytes % 11.7 L Monocytes % 4.9 Eosinophils % 0.1 Basophils % 0.3 Absolute Granulocytes 11.54 H Basophils # 0.04 Sodium Potassium Chloride Carbon Dioxide Anion Gap BUN Creatinine Estimated GFR Glucose POC Glucometer Lactic Acid Calcium Magnesium Total Bilirubin Direct Bilirubin AST ALT Alkaline Phosphatase Serum Total Protein Albumin Amylase Lipase Urine Color Urine Appearance Urine pH Ur Specific [place] Urine Protein Urine Glucose (UA) Urine Ketones Urine Blood Urine Nitrite Urine Bilirubin Urine Urobilinogen Ur Leukocyte Esterase U Hyaline Cast (Auto) Urine Microscopic RBC Urine Microscopic WBC Ur Epithelial Cells Urine Bacteria Urine Yeast (Budding) Urine Culture Reflexed Influenza Type A Ag Influenza Type B Ag RSV (PCR) SARS-CoV-2 (PCR) Orders (Last 24 hours) Category Date Time Status Bedrest TOLERATED Activity 08/30/22 00:21 Active Bedrest with BRP/BSC TOLERATED Activity 08/30/22 00:21 Active Cath [Catheter-[place] Karimi] STAT Care 08/30/22 06:14 Active Catheter Care Record Q6H Care 08/30/22 06:14 Active IV Insertion STAT Care 08/29/22 18:44 Completed NPO (ED) STAT Care 08/30/22 06:11 Active POCT Glucose Check Q1H Care 08/30/22 07:[address] in Observation ROUTINE Care 08/30/22 00:21 Active Clear Liquid Diet 08/30/22 Breakfast Completed House Regular Diet Diet 08/30/22 Lunch Active Nutritional Admission Screen ONCE Diet 08/30/22 01:04 Active AMYLASE Stat Lab 08/29/22 18:45 Completed BMP Stat Lab 08/29/22 21:20 Completed BMP Stat Lab 08/29/22 23:10 Completed BMP/HFII Q4H Lab 08/30/22 09:35 Completed BMP/HFII Q4H Lab 08/30/22 13:30 Completed BMP/HFII Q4H Lab 08/30/22 18:00 Ordered BMP/HFII Q4H Lab 08/30/22 22:00 Ordered BMP/HFII Q4H Lab 08/31/22 02:00 Ordered BMP/HFII Q4H Lab 08/31/22 06:00 Ordered CBC AM.LAB Lab 08/31/22 04:00 Ordered CBC W DIFF AM.LAB Lab 08/30/22 04:00 Completed CBC W DIFF Stat Lab 08/29/22 18:45 Completed CMP AM.LAB Lab 08/30/22 04:47 Completed CMP Stat Lab 08/29/22 18:45 Completed COVID/FLU/RSV Panel Stat Lab 08/29/22 19:00 Completed CULTURE,URINE Stat Lab 08/29/22 21:31 Received CULTURE,URINE Urgent Lab 08/30/22 06:48 Received HEMOGLOBIN A1C Routine Lab 08/30/22 11:37 Ordered LIPASE Stat Lab 08/29/22 18:45 Completed Lactic Acid Stat Lab 08/29/22 18:56 Completed Lactic Acid Stat Lab 08/29/22 21:07 Completed MAG [MAGNESIUM] Stat Lab 08/30/22 04:47 Completed MAGNESIUM AM.LAB Lab 08/31/22 04:00 Ordered MAGNESIUM Routine Lab 08/30/22 13:30 Completed MAGNESIUM Stat Lab 08/29/22 18:45 Completed PHOSPHOROUS AM.LAB Lab 08/31/22 04:00 Ordered POCT GLUCOSE Stat Lab 08/30/22 06:28 Completed POCT GLUCOSE Stat Lab 08/30/22 07:03 Completed POCT GLUCOSE Stat Lab 08/30/22 08:10 Completed POCT GLUCOSE Stat Lab 08/30/22 09:06 Completed POCT GLUCOSE Stat Lab 08/30/22 09:36 Completed POCT GLUCOSE Stat Lab 08/30/22 11:11 Completed POCT GLUCOSE Stat Lab 08/30/22 12:15 Completed POCT GLUCOSE Stat Lab 08/30/22 14:45 Completed POCT GLUCOSE Stat Lab 08/30/22 15:52 Completed POCT GLUCOSE Stat Lab 08/30/22 16:45 Completed POCT GLUCOSE Stat Lab 08/30/22 17:28 Completed UA W/RFX UR CULTURE Stat Lab 08/29/22 21:31 Completed ALPRAZolam 1 MG [Xanax 1 mg] Med 08/30/22 22:00 Active 1 mg PO HS ALPRAZolam 1 MG [Xanax 1 mg] Med 08/30/22 01:30 Discontinued 1 mg PO ONCE ONE Acetaminophen 325 mg [Tylenol 325 mg] Med 08/30/22 00:21 Active 650 mg PO Q4H PRN PRN Aripiprazole 10 mg [Abilify 10 MG] Med 08/30/22 10:00 Active 10 mg PO DAILY Ceftriaxone 1 GM/50 ML PREMIX* [ROCEPHIN 1 Gm-D5w 50 ml Med 08/30/22 22:00 Active Bag] 1 g in 50 ml IV Q24H22 Ceftriaxone 1 GM/50 ML PREMIX* [ROCEPHIN 1 Gm-D5w 50 ml Med 08/29/22 22:37 Discontinued Bag] 1 g in 50 ml IV STAT Ceftriaxone 1 GM/50 ML PREMIX* [ROCEPHIN 1 Gm-D5w 50 ml Med 08/29/22 22:42 Discontinued Bag] 1 g in 50 ml IV UD Cyclobenzaprine HCl 10 mg [Cyclobenzaprine 10 MG] Med 08/30/22 01:23 Active 10 mg PO QID PRN PRN Fluconazole 100 mg [Diflucan 100 MG] Med 08/29/22 23:39 Discontinued 150 mg PO ONCE ONE Fluconazole 100 mg [Diflucan 100 MG] Med 08/30/22 00:25 Discontinued 200 mg .ROUTE .STK-MED ONE Fluticasone/Salmeterol [Advair Hfa Common Med 08/30/22 09:40 Active canister*] 2 puff IH BIDRT Gabapentin [Neurontin ] Med 08/30/22 22:00 Active 300 mg PO HS Gabapentin [Neurontin ] Med 08/30/22 01:30 Discontinued 300 mg PO ONCE ONE Insulin Regular in 0.9 % NaCl [Myxredlin 100 Unit/100 Med 08/30/22 05:49 Active ml Bag] 100 unit in 100 ml IV 0.1 unit/kg/hr Insulin Regular, Human [Humulin R] Med 08/30/22 00:21 Active See Dose Instructions SQ UD PRN Magnesium Sulfate 1 gm/100 ml* [Magnesium 1 Gm / 100 Ml Med 08/29/22 20:30 Discontinued D5W] 100 ml IV UD Magnesium Sulfate in Water [Magnesium Sulf 2 G/50 ml Med 08/29/22 19:39 Discontinued Bag] 2 gm in 50 ml IV ONCE Magnesium Sulfate in Water [Magnesium Sulf 2 G/50 ml Med 08/29/22 20:31 Discontinued Bag] 2 gm in 50 ml IV UD Medication Intervention Med 08/30/22 07:30 Discontinued 1 each MC .RT TO CHECK NaCl 0.9% 1000 ml + KCl 20 Meq [Sodium Chloride 0.9% W/ Med 08/30/22 10:15 Active 20 mEq KCl/LITER] 1,000 ml IV 125 mls/hr NaCl 0.9% 1000 ml [Sodium Chloride 0.9% 1000 ML] 1,000 Med 08/29/22 18:49 Discontinued ml .ROUTE UD NaCl 0.9% 1000 ml [Sodium Chloride 0.9% 1000 ML] 1,000 Med 08/29/22 21:32 Discontinued ml .ROUTE UD NaCl 0.9% 1000 ml [Sodium Chloride 0.9% 1000 ML] 1,000 Med 08/30/22 00:21 Discontinued ml IV 125 mls/hr NaCl 0.9% 1000 ml [Sodium Chloride 0.9% 1000 ML] 1,000 Med 08/29/22 18:44 Discontinued ml IV 999 mls/hr NaCl 0.9% 1000 ml [Sodium Chloride 0.9% 1000 ML] 1,000 Med 08/29/22 21:32 Discontinued ml IV 999 mls/hr NaCl 0.9% 1000 ml [Sodium Chloride 0.9% 1000 ML] 1,000 Med 08/30/22 05:51 Discontinued ml IV 999 mls/hr NaCl 0.9% 1000 ml [Sodium Chloride 0.9% 1000 ML] 2,000 Med 08/30/22 06:03 Discontinued ml .ROUTE UD Nicotine 21 mg [Nicoderm CQ 21 MG] Med 08/30/22 01:45 Discontinued 21 mg TOP Q24H Nicotine 21 mg [Nicoderm CQ 21 MG] Med 08/30/22 22:00 Active 21 mg TOP Q24H22 Ondansetron HCl 4 mg/2 ml [Zofran 4 MG/2 ML VIAL] Med 08/29/22 22:36 Discontinued 4 mg .ROUTE .STK-MED ONE Ondansetron HCl 4 mg/2 ml [Zofran 4 MG/2 ML VIAL] Med 08/29/22 22:31 Discontinued 4 mg IV STAT ONE Oxycodone/APAP 5 mg/325 mg [Percocet Tablet 5/325Mg Med 08/30/22 01:30 Discontinued *] 1 tab PO Q6H Oxycodone/APAP 5 mg/325 mg [Percocet Tablet 5/325Mg Med 08/30/22 07:00 Active *] 1 tab PO Q6HT Pantoprazole 40 mg [Protonix 40 mg IV] Med 08/29/22 18:48 Discontinued 40 mg IV .STK-MED ONE Pantoprazole 40 mg [Protonix 40 mg IV] Med 08/29/22 18:44 Discontinued 40 mg IV STAT ONE Patient Own Med [Patient Own Medication] Med 08/30/22 07:30 Active 1 each SQ UD Prochlorperazine 10 mg/2 ml [Compazine 10 MG/2 ML Med 08/29/22 18:49 Discontinued ] 10 mg .ROUTE .STK-MED ONE Prochlorperazine 10 mg/2 ml [Compazine 10 MG/2 ML Med 08/30/22 00:21 Active ] 10 mg IV Q6H PRN PRN Prochlorperazine 10 mg/2 ml [Compazine 10 MG/2 ML Med 08/29/22 18:44 Discontinued ] 10 mg IV STAT ONE Promethazine HCl 25 mg [Phenergan 25 mg] Med 08/30/22 07:12 Active 25 mg PO QID PRN PRN Simvastatin 20Mg [Zocor 20Mg] Med 08/30/22 22:00 Active 40 mg PO HS Tiotropium [place] Inhaler [Spiriva 18 Mcg/Cap Med 08/30/22 09:41 Discontinued Inhaler] 1 ea IH .STK-MED ONE Tiotropium [place] Inhaler [Spiriva 18 Mcg/Cap Med 08/30/22 10:00 Active Inhaler] 1 ea IH DAILY EKG DAILY RT 08/30/22 08:00 Completed Oxygen Nasal Cannula 2 lpm RT 08/30/22 06:11 Active Respiratory Therapy Assessment DAILY RT 08/30/22 09:50 Active Smoking Cessation Education ONCE RT 08/30/22 01:04 Completed Transfer Order Routine Transfer 08/30/22 Completed Patient Care Notes (Last 24 hours) 08/30/22 12:23 Nursing Note by Erika Greenberg dr at [facility], [place] on pt. plan of care discusssed with pt and pt's . Initialized on 08/30/22 12:23 - END OF NOTE 08/30/22 07:30 Nursing Note by Erika Greenberg updated pt's by phone. Initialized on 08/30/22 07:30 - END OF NOTE Code(s): E11.10 - TYPE 2 DIABETES MELLITUS WITH KETOACIDOSIS WITHOUT COMA (2) Adenocarcinoma of lung, stage 3 Current Visit: Yes Status: Acute Code(s): C34.90 - MALIGNANT NEOPLASM OF UNSP PART OF UNSP BRONCHUS OR LUNG (3) COLLEEN (acute kidney injury) Current Visit: No Status: Resolved Code(s): N17.9 - ACUTE KIDNEY FAILURE, UNSPECIFIED (4) Dehydration Current Visit: No Status: Resolved Code(s): E86.0 - DEHYDRATION
[2022-08-30 17:52] LABS: ALBUMIN 2.6 g/dL (3.5-5.0); ALKALINE PHOSPHATASE 140 U/L (38-126); ANION GAP 13.1 MEQ/L (5-15); BLOOD UREA NITROGEN 32 mg/dL (7-17); CHLORIDE 108 mmol/L (98-107); Calcium 7.6 mg/dL (8.4-10.2); Carbon Dioxide 19 mmol/L (22-30); Creatinine 1 0.95 mg/dL (0.52-1.04); Direct Bilirubin 0.2 mg/dL (0.0-0.4); EST GLOMERULAR FILTRATION RATE > 60.0 ML/MIN; Glucose 160 mg/dL (74-106); Potassium 4.6 mmol/L (3.5-5.1); SGOT/AST 23 U/L (14-36); SGPT/ALT 19 U/L (0-35); SODIUM 136 mmol/L (137-145)
[2022-08-30] MEDS: HUMULIN R SQ PRN (21:14)
[2022-08-30] MEDS ORDERED: ROCEPHIN 1 Gm-D5w 50 ml Bag** 1 G/50 ML IVPB IV SCH (22:00)
[2022-08-30] MEDS ORDERED: NEURONTIN PO SCH (22:00)
[2022-08-30] MEDS ORDERED: ZOCOR 20MG PO SCH (22:00)
[2022-08-30] MEDS ORDERED: NON-FORMULARY ITEM (Atorvastatin Calcium [Atorvastatin Calcium] 80 MG Tablet) PO SCH (22:00)
[2022-08-30] MEDS ORDERED: XANAX 1 MG PO SCH (22:00)
[2022-08-30 22:37] LABS: ALBUMIN 2.6 g/dL (3.5-5.0); ALKALINE PHOSPHATASE 120 U/L (38-126); ANION GAP 13.1 MEQ/L (5-15); BLOOD UREA NITROGEN 27 mg/dL (7-17); CHLORIDE 107 mmol/L (98-107); Calcium 7.5 mg/dL (8.4-10.2); Carbon Dioxide 20 mmol/L (22-30); Creatinine 1 0.89 mg/dL (0.52-1.04); Direct Bilirubin 0.1 mg/dL (0.0-0.4); EST GLOMERULAR FILTRATION RATE > 60.0 ML/MIN; Glucose 222 mg/dL (74-106); Potassium 4.3 mmol/L (3.5-5.1); SGOT/AST 26 U/L (14-36); SGPT/ALT 22 U/L (0-35); SODIUM 137 mmol/L (137-145); Total Protein 5.2 g/dL (6.3-8.2)
[2022-08-31] MEDS: PERCOCET TABLET 5/325MG PO SCH ×3 (02:03→08:56)
[2022-08-31 02:23] LABS: Hematocrit 25.8 % (35-47); Mean Cell Volume 100.4 fL (78-100); Mean Corpuscular Hemoglobin 31.5 pg (26-32); Mean Corpuscular Hgb Concent. 31.4 g/dL (32-36); Mean Platelet Volume 10.3 fL (7.5-11.0); Platelet Count 164 x10^3/uL (150-450); Red Blood Count 2.57 x10^6/uL (4.1-5.4); Red Cell Distribution Width 15.8 % (11.5-14.0); White Blood Count 9.9 x10^3/uL (4.0-10.5)
[2022-08-31 02:31] LABS: ALBUMIN 2.5 g/dL (3.5-5.0); ALKALINE PHOSPHATASE 136 U/L (38-126); ANION GAP 14.3 MEQ/L (5-15); BLOOD UREA NITROGEN 26 mg/dL (7-17); CHLORIDE 108 mmol/L (98-107); Calcium 7.5 mg/dL (8.4-10.2); Carbon Dioxide 17 mmol/L (22-30); Creatinine 1 0.87 mg/dL (0.52-1.04); Direct Bilirubin 0.2 mg/dL (0.0-0.4); EST GLOMERULAR FILTRATION RATE > 60.0 ML/MIN; Glucose 315 mg/dL (74-106); Potassium 4.5 mmol/L (3.5-5.1); SGOT/AST 22 U/L (14-36); SGPT/ALT 17 U/L (0-35); SODIUM 135 mmol/L (137-145); Total Protein 4.9 g/dL (6.3-8.2)
[2022-08-31 02:32] LABS: MAGNESIUM 1.7 mg/dL (1.6-2.3); PHOSPHOROUS 2.7 mg/dL (2.5-4.5)
[2022-08-31 02:33] LABS: Hemoglobin 8.1 g/dL (12.0-16.0)
[2022-08-31] MEDS: HUMULIN R SQ PRN ×2 (02:41→04:08)
[2022-08-31] MEDS: Spiriva 18 Mcg/Cap Inhaler IH SCH (07:25)
[2022-08-31] MEDS: Advair Hfa 115/21 Common canister IH SCH (07:25)
[2022-08-31] MEDS: Sodium Chloride 0.9% W/ 20 mEq KCl/LITER 1,000 ML IV SCH (07:26)
[2022-08-31 07:59] VITALS: BP 126/62; PULSE 101; O2SAT 90
[2022-08-31] MEDS: Abilify 10 MG PO SCH (08:56)
--- NOTE | 2022-08-31 21:43 | PCM.DS ---
Discharge Summary Date of Admission: 08/30/22 00:20 Admitting Physician: LYUDMILA ARIAS Primary Care Provider: LYUDMILA ARIAS Allergies Allergies orphenadrine citrate [From Norflex] Allergy (Intermediate, Verified 08/30/22 01:12) severe vomiting adhesive tape Allergy (Verified 08/30/22 01:12) hydrocodone bitartrate [From [place]] Adverse Reaction (Mild, Verified 08/30/22 01:12) nausea vomiting levofloxacin [From Levaquin] Adverse Reaction (Mild, Verified 08/30/22 01:12) Nausea and Vomiting Hospital Summary - Hospital Course Hospital Course: Chief Complaint Diagnosis weakness lethargy, nausea vomiting for 2 days Allergies Allergy/AdvReac Type Severity Reaction Status Date / Time orphenadrine citrate Allergy Intermediate Verified 08/30/22 01:12 [From Norflex] adhesive tape Allergy Verified 08/30/22 01:12 hydrocodone bitartrate AdvReac Mild Verified 08/30/22 01:12 [From [place]] levofloxacin [From Levaquin] AdvReac Mild Nausea and Verified 08/30/22 01:12 Vomiting Vital Signs (Last 24 hours) Temp Pulse Resp BP Pulse Ox 08/31/22 07:58 98.9 F 101 H 15 126/62 90 L 08/31/22 07:30 96 H 08/31/22 07:22 96 H 08/31/22 04:00 96 H 20 130/67 97 08/31/22 03:40 100 H 08/31/22 00:00 97.5 F 100 H 16 97/49 98 Home Medications Medication Instructions Recorded Confirmed Last Taken Type Aripiprazole 10 mg [Abilify 10 10 mg PO DAILY 08/30/22 08/30/22 Unknown History MG] Budesonide/Glycopyr/Formoterol 2 puff IH BID 08/30/22 08/30/22 Unknown History [Breztri Aerosphere Inhaler] Gabapentin [Neurontin ] 300 mg PO HS 08/30/22 08/30/22 Unknown History Oxycodone HCl/Acetaminophen 1 each PO Q6H 08/30/22 08/30/22 Unknown History [Oxycodone-Acetaminophen 5-325] Prochlorperazine Maleate 10 mg PO BIDPRN PRN 08/30/22 08/30/22 Unknown History [Compazine] cephALEXin [Cephalexin] 500 mg PO QID 10 Days #40 tablet 08/31/22 Unknown Rx Current Medications Discontinued Medications Generic Name Dose Route Start Last Admin Trade Name Freq PRN Reason Stop Dose Admin Acetaminophen 650 mg 08/30/22 00:21 Acetaminophen 325 Mg Tablet PO 09/29/22 00:20 Q4H PRN PRN PAIN, FEVER, HEADACHE Alprazolam 1 mg 08/30/22 01:30 08/30/22 01:31 Alprazolam 1 Mg Tablet PO 08/30/22 01:31 1 mg ONCE ONE Administration Alprazolam 1 mg 08/30/22 22:00 08/30/22 21:15 Alprazolam 1 Mg Tablet PO 09/29/22 21:59 1 mg HS NISSA Administration Aripiprazole 10 mg 08/30/22 10:00 08/31/22 08:56 Aripiprazole 10 Mg Tablet PO 09/29/22 09:59 10 mg DAILY NISSA Administration Cyclobenzaprine HCl 10 mg 08/30/22 01:23 Cyclobenzaprine Hcl 10 Mg Tablet PO 09/29/22 01:22 QID PRN PRN MUSCLE SPASMS Fluconazole 150 mg 08/29/22 23:39 08/30/22 00:43 Fluconazole 100 Mg Tablet PO 08/29/22 23:40 150 mg ONCE ONE Administration Fluconazole Confirm 08/30/22 00:25 Fluconazole 100 Mg Tablet Administered 08/30/22 00:26 Dose 200 mg .ROUTE .STK-MED ONE Gabapentin 300 mg 08/30/22 01:30 08/30/22 01:31 Gabapentin 300 Mg Capsule PO 08/30/22 01:31 300 mg ONCE ONE Administration Gabapentin 300 mg 08/30/22 22:00 08/30/22 21:15 Gabapentin 300 Mg Capsule PO 09/29/22 21:59 300 mg HS NISSA Administration Heparin Sodium (Beef Lung) 500 units 08/31/22 07:12 08/31/22 08:56 Heparin Lock Flush Pf 500 Units/5 Ml Syringe PORT FLUSH 09/30/22 07:11 500 units PRN PRN Administration IV PORT FLUSH Sodium Chloride 1,000 mls @ 999 mls/hr 08/29/22 18:44 08/29/22 20:28 Sodium Chloride 0.9% 1000 Ml IV 08/29/22 19:44 Infused .Q1H1M STA Infusion Sodium Chloride Confirm 08/29/22 18:49 Sodium Chloride 0.9% 1000 Ml Administered 08/29/22 18:50 Dose 1,000 mls @ ud .ROUTE .STK-MED ONE Magnesium Sulfate/Water 2 gm in 50 mls @ 100 mls/hr 08/29/22 19:39 08/29/22 21:41 Magnesium Sulf 2 G/50 Ml Bag IV 08/29/22 20:08 Infused ONCE ONE Infusion Magnesium Sulfate/Dextrose Confirm 08/29/22 20:30 Magnesium 1 Gm / 100 Ml D5w Administered 08/29/22 20:31 Dose 100 mls @ ud IV .STK-MED ONE Magnesium Sulfate/Water Confirm 08/29/22 20:31 Magnesium Sulf 2 G/50 Ml Bag Administered 08/29/22 20:32 Dose 2 gm in 50 mls @ ud IV .STK-MED ONE Sodium Chloride 1,000 mls @ 999 mls/hr 08/29/22 21:32 08/29/22 22:41 Sodium Chloride 0.9% 1000 Ml IV 08/29/22 22:32 Infused .Q1H1M STA Infusion Sodium Chloride Confirm 08/29/22 21:32 Sodium Chloride 0.9% 1000 Ml Administered 08/29/22 21:33 Dose 1,000 mls @ ud .ROUTE .STK-MED ONE Ceftriaxone Sodium/Dextrose 1 g in 50 mls @ 100 mls/hr 08/29/22 22:37 05/0 05/23 23:26 Rocephin 1 Gm-D5w 50 Ml Bag IV 08/29/22 23:06 Infused STAT STA Infusion Ceftriaxone Sodium/Dextrose Confirm 08/29/22 22:42 Rocephin 1 Gm-D5w 50 Ml Bag Administered 08/29/22 22:43 Dose 1 g in 50 mls @ ud IV .STK-MED ONE Sodium Chloride 1,000 mls @ 125 mls/hr 08/30/22 00:21 08/30/22 08:24 Sodium Chloride 0.9% 1000 Ml IV 09/29/22 00:20 125 mls/hr .Q8H NISSA Administration Ceftriaxone Sodium/Dextrose 1 g in 50 mls @ 100 mls/hr 08/30/22 22:00 08/31/22 00:35 Rocephin 1 Gm-D5w 50 Ml Bag IV 09/02/22 21:59 100 mls/hr Q24H22 NISSA Administration INSULIN REGULAR IN 0.9 % NACL 100 unit in 100 mls @ 5.07 mls/hr 08/30/22 05:49 08/30/22 20:51 Myxredlin 100 Unit/100 Ml Bag IV 09/29/22 05:48 0 unit/kg/hr .[id number] PRN 0 mls/hr HYPERGLYCEMIA Titration Protocol 0.1 UNIT/KG/HR Sodium Chloride 1,000 mls @ 999 mls/hr 08/30/22 05:51 08/30/22 06:09 Sodium Chloride 0.9% 1000 Ml IV 08/30/22 06:51 999 mls/hr .Q1H1M STA Administration Sodium Chloride Confirm 08/30/22 06:03 Sodium Chloride 0.9% 1000 Ml Administered 08/30/22 06:04 Dose 2,000 mls @ ud .ROUTE .STK-MED ONE Potassium Chloride/Sodium Chloride 1,000 mls @ 125 mls/hr 08/30/22 10:15 0 08/31/22 07:26 Sodium Chloride 0.9% W/ 20 Meq Kcl/Liter IV 09/29/22 10:14 Not Given .Q8H NISSA Insulin Human Regular 0 unit 08/30/22 00:21 08/31/22 04:08 Insulin Regular, Human 1 Unit SQ 09/29/22 00:20 6 unit UD PRN Administration HYPERGLYCEMIA Miscellaneous Information 1 each 08/30/22 07:30 Medication Intervention 1 Each Each 09/29/22 07:29 .RT TO CHECK NISSA Nicotine 21 mg 08/30/22 01:45 08/30/22 01:35 Nicotine 21 Mg/Patch Patch TOP 09/29/22 01:44 21 mg Q24H NISSA Administration Nicotine 21 mg 08/30/22 22:00 08/30/22 21:14 Nicotine 21 Mg/Patch Patch TOP 09/29/22 21:59 21 mg Q24H22 NISSA Administration Ondansetron HCl 4 mg 08/29/22 22:31 08/29/22 22:37 Ondansetron Hcl 4 Mg/2 Ml Vial IV 08/29/22 22:32 4 mg STAT ONE Administration Ondansetron HCl Confirm 08/29/22 22:36 Ondansetron Hcl 4 Mg/2 Ml Vial Administered 08/29/22 22:37 Dose 4 mg .ROUTE .STK-MED ONE Oxycodone/Acetaminophen 1 tab 08/30/22 01:30 08/30/22 01:32 Oxycodone Hcl/Apap 5 Mg/325 Mg Tablet PO 09/04/22 01:29 1 tab Q6H NISSA Administration Oxycodone/Acetaminophen 1 tab 08/30/22 07:00 08/31/22 08:56 Oxycodone Hcl/Apap 5 Mg/325 Mg Tablet PO 09/04/22 06:59 1 tab Q6HT NISSA Administration Pantoprazole Sodium 40 mg 08/29/22 18:44 08/29/22 18:52 Pantoprazole 40 Mg Vial IV 08/29/22 18:45 40 mg STAT ONE Administration Pantoprazole Sodium Confirm 08/29/22 18:48 Pantoprazole 40 Mg Vial Administered 08/29/22 18:49 Dose 40 mg IV .STK-MED ONE Humalog Insulin Pump 1 each 08/30/22 07:30 SQ 09/29/22 07:29 UD NISSA Prochlorperazine Edisylate 10 mg 08/29/22 18:44 08/29/22 18:54 Prochlorperazine Edisylate 10 Mg/2 Ml Vial IV 08/29/22 18:45 10 mg STAT ONE Administration Prochlorperazine Edisylate Confirm 08/29/22 18:49 Prochlorperazine Edisylate 10 Mg/2 Ml Vial Administered 08/29/22 18:50 Dose 10 mg .ROUTE .STK-MED ONE Prochlorperazine Edisylate 10 mg 08/30/22 00:21 08/30/22 07:25 Prochlorperazine Edisylate 10 Mg/2 Ml Vial IV 09/29/22 00:20 10 mg Q6H PRN PRN Administration NAUSEA/VOMITING Promethazine HCl 25 mg 08/30/22 07:12 Promethazine Hcl 25 Mg Tablet PO 09/29/22 07:11 QID PRN PRN NAUSEA Fluticasone/Salmeterol 2 puff 08/30/22 09:40 08/31/22 07:25 Fluticasone/Salmeterol 115/21 - 120 Puff Common Canister 09/29/22 09:39 2 puff BIDRT NISSA Administration Simvastatin 40 mg 08/30/22 22:00 08/30/22 21:15 Simvastatin 20 Mg Tablet PO 09/29/22 21:59 40 mg HS NISSA Administration Tiotropium [place] 1 ea 08/30/22 10:00 08/31/22 07:25 Tiotropium [place] 18 Mcg/Cap Inhaler IH 09/29/22 09:59 1 ea DAILY NISSA Administration Tiotropium [place] Confirm 08/30/22 09:41 Tiotropium [place] 18 Mcg/Cap Inhaler Administered 08/30/22 09:42 Dose 1 ea IH .STK-MED ONE Intake & Output (Last 24 hours) 08/29/22 08/30/22 08/31/22 09/01/22 11:59 11:59 11:59 11:59 Intake Total 240 5960 Output Total 1550 1050 Balance -1310 4910 Weight 50.7 kg Microbiology Results (Last 24 hours) 08/30/22 06:48 Catherized Urine Culture - Preliminary GRAM POSITIVE ID AND SENSITIVITY PENDING 08/29/22 21:31 Clean Catch Midstream Urine Culture - Preliminary GRAM POSITIVE ID AND SENSITIVITY PENDING Laboratory Results (Last 24 hours) 08/31/22 08/31/22 08/31/22 08:38 07:13 04:57 WBC RBC Hgb Hct MCV MCH MCHC RDW Plt Count MPV Sodium Potassium Chloride Carbon Dioxide Anion Gap BUN Creatinine Estimated GFR Glucose POC Glucometer 256 H 188 H 260 H Calcium Phosphorus Magnesium Total Bilirubin Direct Bilirubin AST ALT Alkaline Phosphatase Serum Total Protein Albumin 08/31/22 08/31/22 08/31/22 04:01 02:00 02:00 WBC 9.9 RBC 2.57 L Hgb 8.1 L D Hct 25.8 L MCV 100.4 H MCH 31.5 MCHC 31.4 L RDW 15.8 H Plt Count 164 MPV 10.3 Sodium Potassium Chloride Carbon Dioxide Anion Gap BUN Creatinine Estimated GFR Glucose POC Glucometer 304 H Calcium Phosphorus 2.7 Magnesium 1.7 Total Bilirubin Direct Bilirubin AST ALT Alkaline Phosphatase Serum Total Protein Albumin 08/31/22 08/30/22 08/30/22 02:00 23:40 22:23 WBC RBC Hgb Hct MCV MCH MCHC RDW Plt Count MPV Sodium 135 L 137 Potassium 4.5 4.3 Chloride 108 H 107 Carbon Dioxide 17 L 20 L Anion Gap 14.3 13.1 BUN 26 H 27 H Creatinine 0.87 0.89 Estimated GFR > 60.0 > 60.0 Glucose 315 H 222 H POC Glucometer 198 H Calcium 7.5 L 7.5 L Phosphorus Magnesium Total Bilirubin 0.20 0.20 Direct Bilirubin 0.2 0.1 AST 22 26 ALT 17 22 Alkaline Phosphatase 136 H 120 Serum Total Protein 4.9 L 5.2 L Albumin 2.5 L 2.6 L Orders (Last 24 hours) Category Date Time Status Discharge Routine Discharge 08/31/22 Ordered BMP/HFII Q4H Lab 08/30/22 22:23 Completed BMP/HFII Q4H Lab 08/31/22 02:00 Completed CBC AM.LAB Lab 08/31/22 02:00 Completed MAGNESIUM AM.LAB Lab 08/31/22 02:00 Completed PHOSPHOROUS AM.LAB Lab 08/31/22 02:00 Completed POCT GLUCOSE Stat Lab 08/30/22 20:49 Completed POCT GLUCOSE Stat Lab 08/30/22 23:40 Completed POCT GLUCOSE Stat Lab 08/31/22 04:01 Completed POCT GLUCOSE Stat Lab 08/31/22 04:57 Completed POCT GLUCOSE Stat Lab 08/31/22 07:13 Completed POCT GLUCOSE Stat Lab 08/31/22 08:38 Completed ALPRAZolam 1 MG [Xanax 1 mg] Med 08/30/22 22:00 Discontinued 1 mg PO HS Ceftriaxone 1 GM/50 ML PREMIX* [ROCEPHIN 1 Gm-D5w 50 ml Med 08/30/22 22:00 Discontinued Bag] 1 g in 50 ml IV Q24H22 Gabapentin [Neurontin ] Med 08/30/22 22:00 Discontinued 300 mg PO HS Heparin Flush 500 units/5 ml [Heparin Lock Flush 500 Med 08/31/22 07:12 Discontinued Units/5ml Syringe] 500 units PORT FLUSH PRN PRN Nicotine 21 mg [Nicoderm CQ 21 MG] Med 08/30/22 22:00 Discontinued 21 mg TOP Q24H22 Simvastatin 20Mg [Zocor 20Mg] Med 08/30/22 22:00 Discontinued 40 mg PO HS Patient Care Notes (Last 24 hours) 08/31/22 09:00 Case Management Note by Arianna Baker S/W PATIENT- SHE CONTINUES TO DENY ANY NEW NEEDS. SHE PLANS TO RETURN HOME TO HER PLF AT TIME OF DC Initialized on 08/31/22 09:00 - END OF NOTE 08/31/22 08:47 Nursing Note by Erika Greenberg BS 256, PT REATTACHED INSULIN PUMP Initialized on 08/31/22 08:47 - END OF NOTE 08/30/22 23:41 Nursing Note by Tiago Siegel Notfied Dr Pérez that pts k 4.3, per md hold ivf at this time. Initialized on 08/30/22 23:41 - END OF NOTE - Vitals & Intake/Output Vital Signs: Vital Signs Temperature 98.9 F 08/31/22 07:58 Pulse Rate 101 H 08/31/22 07:58 Respiratory Rate 15 08/31/22 07:58 Blood Pressure 126/62 08/31/22 07:58 O2 Sat by Pulse Oximetry 90 L 08/31/22 07:58 Intake & Output: Intake & Output 08/29/22 08/30/22 08/31/22 09/01/22 11:59 11:59 11:59 11:59 Intake Total 240 5960 Output Total 1550 1050 Balance -1310 4910 Weight 50.7 kg - Lab Result Diagrams: 08/31/22 02:00 08/31/22 02:00 Lab Results-Last 24 Hrs: Lab Results-Last 24 Hours 08/30/22 08/30/22 08/31/22 Range/Units 22:23 23:40 02:00 WBC (4.0-10.5) x10^3/uL RBC (4.1-5.4) x10^6/uL Hgb (12.0-16.0) g/dL Hct (35-47) % MCV (78-100) fL MCH (26-32) pg MCHC (32-36) g/dL RDW (11.5-14.0) % Plt Count (150-450) x10^3/uL MPV (7.5-11.0) fL Sodium 137 135 L (137-145) mmol/L Potassium 4.3 4.5 (3.5-5.1) mmol/L Chloride 107 108 H (98-107) mmol/L Carbon Dioxide 20 L 17 L (22-30) mmol/L Anion Gap 13.1 14.3 (5-15) MEQ/L BUN 27 H 26 H (7-17) mg/dL Creatinine 0.89 0.87 (0.52-1.04) mg/dL Estimated GFR > 60.0 > 60.0 ML/MIN Glucose 222 H 315 H (74-106) mg/dL POC Glucometer 198 H (74 to 106) mg/dL Calcium 7.5 L 7.5 L (8.4-10.2) mg/dL Phosphorus (2.5-4.5) mg/dL Magnesium (1.6-2.3) mg/dL Total Bilirubin 0.20 0.20 (0.2-1.3) mg/dL Direct Bilirubin 0.1 0.2 (0.0-0.4) mg/dL AST 26 22 (14-36) U/L ALT 22 17 (0-35) U/L Alkaline Phosphatase 120 136 H (38-126) U/L Serum Total Protein 5.2 L 4.9 L (6.3-8.2) g/dL Albumin 2.6 L 2.5 L (3.5-5.0) g/dL 08/31/22 08/31/22 08/31/22 Range/Units 02:00 02:00 04:01 WBC 9.9 (4.0-10.5) x10^3/uL RBC 2.57 L (4.1-5.4) x10^6/uL Hgb 8.1 L D (12.0-16.0) g/dL Hct 25.8 L (35-47) % MCV 100.4 H (78-100) fL MCH 31.5 (26-32) pg MCHC 31.4 L (32-36) g/dL RDW 15.8 H (11.5-14.0) % Plt Count 164 (150-450) x10^3/uL MPV 10.3 (7.5-11.0) fL Sodium (137-145) mmol/L Potassium (3.5-5.1) mmol/L Chloride (98-107) mmol/L Carbon Dioxide (22-30) mmol/L Anion Gap (5-15) MEQ/L BUN (7-17) mg/dL Creatinine (0.52-1.04) mg/dL Estimated GFR ML/MIN Glucose (74-106) mg/dL POC Glucometer 304 H (74 to 106) mg/dL Calcium (8.4-10.2) mg/dL Phosphorus 2.7 (2.5-4.5) mg/dL Magnesium 1.7 (1.6-2.3) mg/dL Total Bilirubin (0.2-1.3) mg/dL Direct Bilirubin (0.0-0.4) mg/dL AST (14-36) U/L ALT (0-35) U/L Alkaline Phosphatase (38-126) U/L Serum Total Protein (6.3-8.2) g/dL Albumin (3.5-5.0) g/dL 08/31/22 08/31/22 08/31/22 Range/Units 04:57 07:13 08:38 WBC (4.0-10.5) x10^3/uL RBC (4.1-5.4) x10^6/uL Hgb (12.0-16.0) g/dL Hct (35-47) % MCV (78-100) fL MCH (26-32) pg MCHC (32-36) g/dL RDW (11.5-14.0) % Plt Count (150-450) x10^3/uL MPV (7.5-11.0) fL Sodium (137-145) mmol/L Potassium (3.5-5.1) mmol/L Chloride (98-107) mmol/L Carbon Dioxide (22-30) mmol/L Anion Gap (5-15) MEQ/L BUN (7-17) mg/dL Creatinine (0.52-1.04) mg/dL Estimated GFR ML/MIN Glucose (74-106) mg/dL POC Glucometer 260 H 188 H 256 H (74 to 106) mg/dL Calcium (8.4-10.2) mg/dL Phosphorus (2.5-4.5) mg/dL Magnesium (1.6-2.3) mg/dL Total Bilirubin (0.2-1.3) mg/dL Direct Bilirubin (0.0-0.4) mg/dL AST (14-36) U/L ALT (0-35) U/L Alkaline Phosphatase (38-126) U/L Serum Total Protein (6.3-8.2) g/dL Albumin (3.5-5.0) g/dL Micro Results-Entire Visit: Microbiology 08/30/22 06:48 Urine Culture - Preliminary Catherized GRAM POSITIVE ID AND SENSITIVITY PENDING 08/29/22 21:31 Urine Culture - Preliminary Clean Catch Midstream GRAM POSITIVE ID AND SENSITIVITY PENDING Accuchecks Date 08/30/22 Date 08/30/22 Time 23:00 Time 23:00 - Procedures and Test Procedures and Tests throughout Hospitalization: Therapy Orders & Screens 08/30/22 01:04 Smoking Cessation Education ONCE Comment: Diagnosis: DKA, UTI, MILD DEHYDRATION Smoking Status: Current every day smoker How long have you smoked: 40 YEARS Have you smoked in the past 12 months: Yes Approximately how many cigarettes per day: 90 Do you dip or chew tobacco: No 08/30/22 06:11 Oxygen Nasal Cannula 2 lpm Comment: Diagnosis: DKA, UTI, MILD DEHYDRATION 08/30/22 08:00 EKG DAILY Comment: Diagnosis: DKA, UTI, MILD DEHYDRATION 08/30/22 09:50 Respiratory Therapy Assessment DAILY Comment: Diagnosis: DKA, UTI, MILD DEHYDRATION Discharge Exam General Appearance: no apparent distress, alert Neurologic Exam: alert, oriented x 3, cooperative, normal mood/affect, nml cerebellar function, sensation nml, No motor deficits Eye Exam: PERRL, EOMI, eyes nml inspection Ears, Nose, Throat Exam: normal ENT inspection, pharynx normal, moist mucous membranes Neck Exam: normal inspection, non-tender, supple, full range of motion Respiratory Exam: normal breath sounds, lungs clear, No respiratory distress Cardiovascular Exam: regular rate/rhythm, normal heart sounds Gastrointestinal/Abdomen Exam: soft, No tenderness, No mass Pelvic Exam: deferred Rectal Exam: deferred Back Exam: normal inspection, normal range of motion, No CVA tenderness, No vertebral tenderness Extremity Exam: normal inspection, normal range of motion Skin Exam: normal color, warm, dry Final Diagnosis/Problem List - Final Discharge Diagnosis/Problem (1) DKA (diabetic ketoacidosis) Status: Resolved Code(s): E11.10 - TYPE 2 DIABETES MELLITUS WITH KETOACIDOSIS WITHOUT COMA (2) Adenocarcinoma of lung, stage 3 Status: Acute Code(s): C34.90 - MALIGNANT NEOPLASM OF UNSP PART OF UNSP BRONCHUS OR LUNG (3) COLLEEN (acute kidney injury) Status: Resolved Code(s): N17.9 - ACUTE KIDNEY FAILURE, UNSPECIFIED (4) Dehydration Status: Resolved Code(s): E86.0 - DEHYDRATION - Discharge Discharge Date: 08/31/22 Disposition: Home, Self-Care Condition: Stable Prescriptions: New cephALEXin [Cephalexin] 500 mg PO QID 10 Days #40 tablet Continue Insulin Lispro [Humalog] 1 unit SQ UD Cyclobenzaprine HCl 10 mg [Cyclobenzaprine 10 MG] 10 mg PO QID PRN PRN Reason: Pain Promethazine HCl 25 mg [Phenergan 25 mg] 25 mg PO QID PRN PRN Reason: Nausea Atorvastatin Calcium 80 mg PO HS ALPRAZolam 1 MG [Xanax 1 mg] 1 mg PO HS Prochlorperazine Maleate [Compazine] 10 mg PO BIDPRN PRN PRN Reason: Nausea Aripiprazole 10 mg [Abilify 10 MG] 10 mg PO DAILY Oxycodone HCl/Acetaminophen [Oxycodone-Acetaminophen 5-325] 1 each PO Q6H Gabapentin [Neurontin ] 300 mg PO HS Budesonide/Glycopyr/Formoterol [Breztri Aerosphere Inhaler] 2 puff IH BID Instructions: Quitting Smoking for Older Adults, Diabetic Ketoacidosis (DC) Additional Instructions: FOLLOW UP WITH YOUR ICT DEVELOPMENT MANAGER NEEDED. Follow up with: LYUDMILA ARIAS MD [Primary Care Provider] - 09/08/22 10:30 am (AT [facility] )
== END 2022-08-31 09:10 | disposition home or self-care (01) ==
LOC: ED 18:28 → MED SURG 08-30 00:20 → ICU 08-30 05:53 → UNDODISOB 08-31 08:40
PROVIDERS: ADMIT General Practice; ATTEND General Practice
DX: E11.10 Type 2 diabetes mellitus with ketoacidosis without coma (principal); C34.90 Malignant neoplasm of unspecified part of unspecified bronchus or lung; E11.22 Type 2 diabetes mellitus with diabetic chronic kidney disease; E11.65 Type 2 diabetes mellitus with hyperglycemia; I12.9 Hypertensive chronic kidney disease with stage 1 through stage 4 chronic kidney disease, or unspecified chronic kidney disease; N18.9 Chronic kidney disease, unspecified; E86.0 Dehydration; E78.5 Hyperlipidemia, unspecified; J44.9 Chronic obstructive pulmonary disease, unspecified; I25.10 Atherosclerotic heart disease of native coronary artery without angina pectoris; N39.0 Urinary tract infection, site not specified; Z79.899 Other long term (current) drug therapy; Z20.828 Contact with and (suspected) exposure to other viral communicable diseases; Z72.0 Tobacco use
CPT/HCPCS: 0241U; 36000; 36415; 80048; 80053; 80076; 81001; 82150; 82947; 83036; 83605; 83690; 83735; 84100; 85025; 85027; 87086; 93005; 94640; 96360; 96361; 96365; 96367; 96374; 96375; 99285; J0696; J1642; J1815; J2405; J3475; A9270-GY

== ENCOUNTER 2022-10-08 21:41 | Emergency (ER) | payer BC ==
[2022-10-08] MEDS ORDERED: Zofran 4 MG/2 ML VIAL IV ONE (22:01)
[2022-10-08] MEDS ORDERED: MORPHINE SULFATE 4 MG INJ IV ONE (22:01)
[2022-10-08] MEDS ORDERED: BABY ASPIRIN 81 MG CHEW PO ONE (22:01)
[2022-10-08] MEDS ORDERED: DUONEB 0.5-3 MG/3 ml Neb IH ONE ×2 (22:02→22:10)
[2022-10-08] MEDS ORDERED: solu-MEDROL 125 MG, Sterile H2O 10 ml 2 ML IV ONE ×2 (22:02)
--- NOTE | 2022-10-08 22:11 | ERPHSYRPT ---
- History of Present Illness Time Seen by Provider: 10/08/22 21:48 Historian: patient Exam Limitations: no limitations Patient Subjective Stated Complaint: pt states she has been having intermittent chest pain throughout the day. has been worse this evening. cough for last 3-4 days pt states with thick white sputum. shortness of breath with exertion. Triage Nursing Assessment: pt alert and oriented, answers questions approp. pt ambulates into room with steady gait noted. respirations nonlabored, lung sounds diminished. pt short of breath with exertion. skin warm and dry. heart rate 94, sinus rhythm with pac's on monitor. Physician History: 62-year-old female with multiple medical problems including coronary artery disease status post stenting, hypertension, hyperlipidemia, diabetes mellitus, lung cancer with left lower lobectomy currently on chemotherapy, tobacco abuse, COPD presented in the ER with chief complaint of intermittent substernal/left- sided chest pain off and on since morning without any significant aggravating or relieving factors. She also reports having cough productive of clear to yellow sputum for the last 3 to 4 days with progressive worsening. No fever or chills reported. Timing/Duration: today, intermittent, gradual onset, worse Activities at Onset: rest Quality: fullness, sharpness Location: substernal Chest Pain Radiation: no radiation Severity of Pain-Max: moderate Severity of Pain-Current: moderate Modifying Factors: Improves With: nothing Associated Symptoms: shortness of breath, cough, hurts to breathe, fatigue, No fever Prior Chest Pain/Cardiac Workup: heart attack Nitro Today/Relief: no nitro taken today Aspirin Treatment Today: unknown Allergies/Adverse Reactions: orphenadrine citrate [From Norflex] Allergy (Intermediate, Verified 10/08/22 22:00) severe vomiting adhesive tape Allergy (Verified 10/08/22 22:00) hydrocodone bitartrate [From Colon] Adverse Reaction (Mild, Verified 10/08/22 22:00) nausea vomiting levofloxacin [From Levaquin] Adverse Reaction (Mild, Verified 10/08/22 22:00) Nausea and Vomiting Home Medications: Cyclobenzaprine HCl 10 mg [Cyclobenzaprine 10 MG] 10 mg PO QID PRN 02/13/19 [History] Promethazine HCl 25 mg [Phenergan 25 mg] 25 mg PO QID PRN 07/17/21 [History] ALPRAZolam 1 MG [Xanax 1 mg] 1 mg PO BID 07/18/22 [History] Atorvastatin Calcium 80 mg PO HS 07/18/22 [History] Budesonide/Glycopyr/Formoterol [Breztri Aerosphere Inhaler] 2 puff IH BID 08/30/22 [History] Gabapentin [Neurontin ] 300 mg PO HS 08/30/22 [History] Prochlorperazine Maleate [Compazine] 10 mg PO BIDPRN PRN 08/30/22 [History] Insulin Aspart [NovoLOG Insulin] 1 unit SQ 10/08/22 [History] Insulin Glargine,Hum.rec.anlog [Toujeo Solostar] 14 unit SQ HS 10/08/22 [ History] Hx Tetanus, Diphtheria Vaccination/Date Given: No Hx Influenza Vaccination/Date Given: Yes Hx Pneumococcal Vaccination/Date Given: Yes Travel Risk - International Travel Have you traveled outside of the country in past 3 weeks: No - Coronavirus Screening Are you exhibiting any of the following symptoms?: No Close contact with a COVID-19 positive Pt in past 14-21 Days: No - Vaccine Status Have you recieved a Covid-19 vaccination: Yes [employer]: Moderna - Vaccination Dates Date of 2cond Vaccination (if applicable): 2020 - Review of Systems Constitutional: Fatigue, Weakness Eyes: No Symptoms Ears, Nose, & Throat: No Symptoms Respiratory: Cough, Dyspnea, Dyspnea on Exertion (COTO), Wheezing Cardiac: Chest Pain Abdominal/Gastrointestinal: No Symptoms Genitourinary Symptoms: No Symptoms Musculoskeletal: Arthralgias Skin: No Symptoms Neurological: No Symptoms Psychological: No Symptoms Endocrine: No Symptoms Hematologic/Lymphatic: No Symptoms Immunological/Allergic: No Symptoms - Past Medical History Pertinent Past Medical History: Yes Neurological History: No Pertinent History ENT History: No Pertinent History Cardiac History: Coronary Artery Disease, High Cholesterol, Hypertension Respiratory History: Asthma, Bronchitis, COPD, Emphysema, Lung Cancer, Pneumonia Endocrine Medical History: Diabetes Type II, Hypoglycemia Musculoskeletal History: Fractures GI Medical History: GERD History: Renal Disease Psycho-Social History: Anxiety, Depression Female Reproductive Disorders: No Pertinent History Other Medical History: Previous R 3rd left leg fx many years ago,rt wrist fx with cast, PRESENTLY IN CHEMO - Past Surgical History Past Surgical History: Yes Neuro Surgical History: No Pertinent History Cardiac: Cardiac Catheterization, Cardiac Stent Respiratory: Lobectomy Gastrointestinal: Cholecystectomy Genitourinary: No Pertinent History Musculoskeletal: Other Female Surgical History: Tubal Ligation Other Surgical History: BUNONECTOMY. BACK SURGERY X2, right upper chest port placement. LL lung lobectomy - Social History Smoking Status: Current every day smoker How long have you smoked: 40 YEARS Exposure to second hand smoke: Yes Alcohol Use: None Drug Use: none Patient Lives Alone: No Significant Family History: heart disease, diabetes, hypertension - Nursing Vital Signs Nursing Vital Signs: Initial Vital Signs Temperature 98.9 F 10/08/22 21:42 Pulse Rate 95 H 10/08/22 21:42 Respiratory Rate 20 10/08/22 21:42 Blood Pressure 91/71 10/08/22 21:42 O2 Sat by Pulse Oximetry 100 10/08/22 21:42 Pain Scale Pain Intensity 4 - Physical Exam General Appearance: no apparent distress, alert Eye Exam: PERRL/EOMI, eyes nml inspection Ears, Nose, Throat Exam: normal ENT inspection, TMs normal, pharynx normal, moist mucous membranes Neck Exam: normal inspection, non-tender, supple, full range of motion Respiratory Exam: diminished breath sounds, wheezing Cardiovascular Exam: regular rate/rhythm, normal heart sounds Gastrointestinal/Abdomen Exam: soft, normal bowel sounds, No tenderness Back Exam: normal inspection Extremity Exam: normal inspection, normal range of motion Neurologic Exam: alert, oriented x 3, cooperative Skin Exam: normal color SpO2 Interpretation: normal SpO2: 100 O2 Delivery: Room Air - Course EKG Interpreted by Me: RATE (95), Sinus Rhythm, NORMAL AXIS, NORMAL INTERVALS, NORMAL QRS Ordered Tests: Active Orders 24 hr Category Date Time Status Frame Coverer STAT Care 10/08/22 22:02 Active EKG-ER Only STAT Care 10/08/22 22:01 Active IV Insertion STAT Care 10/08/22 22:01 Active CHEST 1 VIEW (PORTABLE) Stat Exams 10/08/22 22:02 Completed CHEST WITH CONTRAST [CT] Stat Exams 10/08/22 23:28 Completed CBC W DIFF Stat Lab 10/08/22 22:12 Completed CMP Stat Lab 10/08/22 22:12 Completed D-DIMER QUANTITATIVE Stat Lab 10/08/22 22:12 Completed Lactic Acid Stat Lab 10/08/22 22:11 Completed MAGNESIUM Stat Lab 10/08/22 22:12 Completed NT PRO BNPII Stat Lab 10/08/22 22:12 Completed PROCALCITONIN Stat Lab 10/08/22 22:02 Completed PT INR [PROTIME WITH INR] Stat Lab 10/09/22 02:33 Completed PTT Stat Lab 10/09/22 02:33 Completed TROPONIN Q4H Lab 10/08/22 22:12 Completed TROPONIN Q4H Lab 10/09/22 02:32 Completed TROPONIN Q4H Lab 10/09/22 06:15 Ordered Respiratory Therapy Assessment DAILY RT 10/08/22 22:24 Active Medication Summary Discontinued Medications Generic Name Dose Route Start Last Admin Trade Name Freq PRN Reason Stop Dose Admin Albuterol/Ipratropium 3 ml 10/08/22 22:02 10/08/22 22:10 Ipratropium/Albuterol Sulfate 3 Ml Ampul.Neb IH 10/08/22 22:03 3 ml STAT ONE Administration Albuterol/Ipratropium Confirm 10/08/22 22:10 Ipratropium/Albuterol Sulfate 3 Ml Ampul.Neb Administered 10/08/22 22:11 Dose 3 ml IH .STK-MED ONE Aspirin 324 mg 10/08/22 22:01 10/08/22 22:29 Aspirin 81 Mg Tab.Chew PO 10/08/22 22:02 324 mg STAT ONE Administration Aspirin Confirm 10/08/22 22:17 Aspirin 81 Mg Tab.Chew Administered 10/08/22 22:18 Dose 324 mg .ROUTE .STK-MED ONE Methylprednisolone Sodium 0 mg 10/08/22 22:02 10/08/22 22:34 Succinate 125 mg/ Sterile IV 10/08/22 22:03 125 mg Water 2 ml STAT ONE Administration Sodium Chloride Confirm 10/08/22 22:17 Sodium Chloride 0.9% 1000 Ml Administered 10/08/22 22:18 Dose 1,000 mls @ ud .ROUTE .STK-MED ONE Sodium Chloride 1,000 mls @ 500 mls/hr 10/08/22 22:24 10/09/22 01:45 Sodium Chloride 0.9% 1000 Ml IV 10/09/22 00:23 Infused .Q2H STA Infusion Ceftriaxone Sodium/Dextrose 2 g in 50 mls @ 100 mls/hr 10/08/22 23:28 10/09/22 02:32 Rocephin 2 Gm-D5w 50ml Bag IV 10/08/22 23:57 Infused STAT STA Infusion Azithromycin 500 mg in 250 mls @ 250 mls/hr 10/08/22 23:28 10/09/22 02:19 Zithromax 500 Mg/ 250 Ml Nacl Premix IV 10/09/22 00:27 250 mls/hr STAT STA 250 mls/hr Administration Azithromycin Confirm 10/09/22 01:47 Zithromax 500 Mg/ 250 Ml Nacl Premix Administered 10/09/22 01:48 Dose 500 mg in 250 mls @ ud IV .STK-MED ONE Ceftriaxone Sodium/Dextrose Confirm 10/09/22 01:47 Rocephin 2 Gm-D5w 50ml Bag Administered 10/09/22 01:48 Dose 2 g in 50 mls @ ud IV .STK-MED ONE Methylprednisolone Sodium Succinate Confirm 10/08/22 22:17 Methylprednis Sod Succ 125 Mg/2 Ml Vial Administered 10/08/22 22:18 Dose 125 mg .ROUTE .STK-MED ONE Morphine Sulfate 4 mg 10/08/22 22:01 10/08/22 22:30 Morphine Sulfate 4 Mg/Ml Injection IV 10/08/22 22:02 4 mg STAT ONE Administration Morphine Sulfate Confirm 10/08/22 22:17 Morphine Sulfate 4 Mg/Ml Injection Administered 10/08/22 22:18 Dose 4 mg .ROUTE .STK-MED ONE Ondansetron HCl 4 mg 10/08/22 22:01 10/08/22 22:29 Ondansetron Hcl 4 Mg/2 Ml Vial IV 10/08/22 22:02 4 mg STAT ONE Administration Ondansetron HCl Confirm 10/08/22 22:17 Ondansetron Hcl 4 Mg/2 Ml Vial Administered 10/08/22 22:18 Dose 4 mg .ROUTE .STK-MED ONE Sterile Water Confirm 10/08/22 22:17 Water For Injection,Sterile 10 Ml Vial Administered 10/08/22 22:18 Dose 10 ml IJ .STK-MED ONE Lab/Rad Data: Laboratory Result Diagrams 10/08/22 22:12 10/08/22 22:12 Laboratory Results 10/09/22 10/09/22 10/08/22 Range/Units 02:33 02:32 22:12 WBC (4.0-10.5) x10^3/uL RBC (4.1-5.4) x10^6/uL Hgb (12.0-16.0) g/dL Hct (35-47) % MCV (78-100) fL MCH (26-32) pg MCHC (32-36) g/dL RDW (11.5-14.0) % Plt Count (150-450) x10^3/uL MPV (7.5-11.0) fL Gran % (36.0-66.0) % Immature Gran % (Auto) (0.00-0.4) % Nucleat RBC Rel Count (0.00-0.1) % Eos # (Auto) (0-0.5) x10^3/uL Immature Gran # (Auto) (0.00-0.03) x10^3u/L Absolute Lymphs (auto) (1.0-4.6) x10^3/uL Absolute Monos (auto) (0.0-1.3) x10^3/uL Absolute Nucleated RBC (0.00-0.01) x10^3u/L Lymphocytes % (24.0-44.0) % Monocytes % (0.0-12.0) % Eosinophils % (0.00-5.0) % Basophils % (0.0-0.4) % Absolute Granulocytes (1.4-6.9) x10^3/uL Basophils # (0-0.4) x10^3/uL PT 10.7 (9.4-12.5) SECONDS INR 0.98 (0.8-3.0) APTT 28.9 (25.1-36.5) SECONDS D-Dimer (0.0-0.50) mg/L Sodium (137-145) mmol/L Potassium (3.5-5.1) mmol/L Chloride (98-107) mmol/L Carbon Dioxide (22-30) mmol/L Anion Gap (5-15) MEQ/L BUN (7-17) mg/dL Creatinine (0.52-1.04) mg/dL Estimated GFR ML/MIN Glucose (74-106) mg/dL Lactic Acid (0.4-2.0) Calcium (8.4-10.2) mg/dL Magnesium 1.8 (1.6-2.3) mg/dL Total Bilirubin (0.2-1.3) mg/dL AST (14-36) U/L ALT (0-35) U/L Alkaline Phosphatase (38-126) U/L Troponin I < 0.012 < 0.012 (0.000-0.034) ng/mL NT-Pro-B Natriuret Pep 145 (<300) pg/mL Serum Total Protein (6.3-8.2) g/dL Albumin (3.5-5.0) g/dL Procalcitonin (0.030-0.080) ng/mL 10/08/22 10/08/22 10/08/22 Range/Units 22:12 22:12 22:12 WBC 6.8 (4.0-10.5) x10^3/uL RBC 3.02 L (4.1-5.4) x10^6/uL Hgb 10.0 L (12.0-16.0) g/dL Hct 31.2 L (35-47) % MCV 103.3 H (78-100) fL MCH 33.1 H (26-32) pg MCHC 32.1 (32-36) g/dL RDW 18.7 H (11.5-14.0) % Plt Count 69 L (150-450) x10^3/uL MPV 11.1 H (7.5-11.0) fL Gran % 56.9 (36.0-66.0) % Immature Gran % (Auto) 0.1 (0.00-0.4) % Nucleat RBC Rel Count 0.0 (0.00-0.1) % Eos # (Auto) 0.19 (0-0.5) x10^3/uL Immature Gran # (Auto) 0.01 (0.00-0.03) x10^3u/L Absolute Lymphs (auto) 2.43 (1.0-4.6) x10^3/uL Absolute Monos (auto) 0.25 (0.0-1.3) x10^3/uL Absolute Nucleated RBC 0.00 (0.00-0.01) x10^3u/L Lymphocytes % 35.9 (24.0-44.0) % Monocytes % 3.7 (0.0-12.0) % Eosinophils % 2.8 (0.00-5.0) % Basophils % 0.6 (0.0-0.4) % Absolute Granulocytes 3.85 (1.4-6.9) x10^3/uL Basophils # 0.04 (0-0.4) x10^3/uL PT (9.4-12.5) SECONDS INR (0.8-3.0) APTT (25.1-36.5) SECONDS D-Dimer 4.91 H* (0.0-0.50) mg/L Sodium 139 (137-145) mmol/L Potassium 3.7 (3.5-5.1) mmol/L Chloride 106 (98-107) mmol/L Carbon Dioxide 23 (22-30) mmol/L Anion Gap 13.3 (5-15) MEQ/L BUN 34 H (7-17) mg/dL Creatinine 1.32 H (0.52-1.04) mg/dL Estimated GFR 43.5 ML/MIN Glucose 118 H (74-106) mg/dL Lactic Acid (0.4-2.0) Calcium 8.6 (8.4-10.2) mg/dL Magnesium (1.6-2.3) mg/dL Total Bilirubin 0.30 (0.2-1.3) mg/dL AST 24 (14-36) U/L ALT 18 (0-35) U/L Alkaline Phosphatase 98 (38-126) U/L Troponin I (0.000-0.034) ng/mL NT-Pro-B Natriuret Pep (<300) pg/mL Serum Total Protein 6.4 (6.3-8.2) g/dL Albumin 3.3 L (3.5-5.0) g/dL Procalcitonin (0.030-0.080) ng/mL 10/08/22 10/08/22 Range/Units 22:11 22:02 WBC (4.0-10.5) x10^3/uL RBC (4.1-5.4) x10^6/uL Hgb (12.0-16.0) g/dL Hct (35-47) % MCV (78-100) fL MCH (26-32) pg MCHC (32-36) g/dL RDW (11.5-14.0) % Plt Count (150-450) x10^3/uL MPV (7.5-11.0) fL Gran % (36.0-66.0) % Immature Gran % (Auto) (0.00-0.4) % Nucleat RBC Rel Count (0.00-0.1) % Eos # (Auto) (0-0.5) x10^3/uL Immature Gran # (Auto) (0.00-0.03) x10^3u/L Absolute Lymphs (auto) (1.0-4.6) x10^3/uL Absolute Monos (auto) (0.0-1.3) x10^3/uL Absolute Nucleated RBC (0.00-0.01) x10^3u/L Lymphocytes % (24.0-44.0) % Monocytes % (0.0-12.0) % Eosinophils % (0.00-5.0) % Basophils % (0.0-0.4) % Absolute Granulocytes (1.4-6.9) x10^3/uL Basophils # (0-0.4) x10^3/uL PT (9.4-12.5) SECONDS INR (0.8-3.0) APTT (25.1-36.5) SECONDS D-Dimer (0.0-0.50) mg/L Sodium (137-145) mmol/L Potassium (3.5-5.1) mmol/L Chloride (98-107) mmol/L Carbon Dioxide (22-30) mmol/L Anion Gap (5-15) MEQ/L BUN (7-17) mg/dL Creatinine (0.52-1.04) mg/dL Estimated GFR ML/MIN Glucose (74-106) mg/dL Lactic Acid 1.5 (0.4-2.0) Calcium (8.4-10.2) mg/dL Magnesium (1.6-2.3) mg/dL Total Bilirubin (0.2-1.3) mg/dL AST (14-36) U/L ALT (0-35) U/L Alkaline Phosphatase (38-126) U/L Troponin I (0.000-0.034) ng/mL NT-Pro-B Natriuret Pep (<300) pg/mL Serum Total Protein (6.3-8.2) g/dL Albumin (3.5-5.0) g/dL Procalcitonin 0.320 H (0.030-0.080) ng/mL - Progress Progress: improved, re-examined Air Movement: good Progress Note: 10/08/22 22:10 62-year-old female with multiple medical problems including coronary artery disease status post stenting, hypertension, hyperlipidemia, diabetes mellitus, lung cancer with left lower lobectomy currently on chemotherapy, tobacco abuse, COPD presented in the ER with chief complaint of intermittent substernal/left- sided chest pain off and on since morning without any significant aggravating or relieving factors. She also reports having cough productive of clear to yellow sputum for the last 3 to 4 days with progressive worsening. No fever or chills reported. 10/09/22 03:07 She is given DuoNeb and Solu-Medrol, on reevaluation feeling much better. She has a normal white count, hemoglobin of 10 but has a drop of platelet from 160s to 69 today. Patient does have mild COLLEEN with a baseline creatinine of 0.8 and today 1.35. She is given gentle hydration. EKG showed normal sinus rhythm with no ST elevation and negative initial troponin. Patient has a normal lactate but Pro-calcitonin 0.32, given a dose of antibiotic as I believe patient has some element of COPD exacerbation, chest x-ray is negative for consolidation, does have chronic left-sided pneumothorax which is still there. Do not think needs chest tube placement for this. Patient has a D-dimer of 4.9, CTA chest is obtained which showed left pulmonary artery eccentric pulmonary embolism. I have discussed the results of lab work and imaging with patient and need for anticoagulation which she understand and agrees. I have discussed work-up with Dr. Hathaway, recommended transfer to facility with hematology oncology services as patient has low platelet count and placing on anticoagulation can put her at increased risk of bleeding and may need hematology consultation. Also patient has a mild increase in the size of pneumothorax on the left and her primary cardiothoracic surgeon Dr. Garg is at [facility]. I have discussed with Dr. Kam At [facility], reviewed history, work-up, agreed with doing Lovenox and patient is accepted for transfer. Blood Culture(s) Obtained: Yes Antibiotics given: Yes Discussed with Dr.: Natalya, Other ( [facility]) Will see patient in: ED Counseled pt/family regarding: lab results, diagnosis, rad results, smoking cessation Medical Desision Making - Discussion of managment Care discussed with:: hospitalist Reviewed:: Test results Agreed on:: Treatment plan Will see patient: in ED - Diagnostic Testing Diagnostic test were ordered, analyzed, and reviewed by me: Yes Radiological Interpretation: Interpreted by me, Reviewed by me, Teleradiologist Report - Risk of complications The pt has a mod risk of morbidity or mortality based on: Need for prescription drug management The pt has a high risk of morbidity or mortality based on: Decision regarding hospitilization or escalation of hosp level of care - Departure Departure Disposition: Transfer Clinical Impression: Pulmonary embolism, COLLEEN (acute kidney injury), COPD with exacerbation Condition: Stable Critical Care Time: No Referrals: LYUDMILA ARIAS MD [Primary Care Provider] - Follow up/PCP as directed Instructions: Chronic Obstructive Pulmonary Disease
[2022-10-08] MEDS ORDERED: Sodium Chloride 0.9% 1000 ML 1,000 ML ONE (22:17)
[2022-10-08] MEDS ORDERED: solu-MEDROL ONE (22:17)
[2022-10-08] MEDS ORDERED: Zofran 4 MG/2 ML VIAL ONE (22:17)
[2022-10-08] MEDS ORDERED: MORPHINE SULFATE 4 MG INJ ONE (22:17)
[2022-10-08] MEDS ORDERED: Sterile H2O 10 ml IJ ONE (22:17)
[2022-10-08] MEDS ORDERED: BABY ASPIRIN 81 MG CHEW ONE (22:17)
[2022-10-08 22:18] LABS: Absolute Neutrophil Ct (ANC) 3.85 x10^3/uL (1.4-6.9); BASOPHIL % 0.6 % (0.0-0.4); Basophil (Absolute #) 0.04 x10^3/uL (0-0.4); Eosinophil % 2.8 % (0.00-5.0); Eosinophil (Absolute #) 0.19 x10^3/uL (0-0.5); Hematocrit 31.2 % (35-47); IMMATURE GRAN # 0.01 x10^3u/L (0.00-0.03); IMMATURE GRAN % 0.1 % (0.00-0.4); Lymphocyte (Absolute #) 2.43 x10^3/uL (1.0-4.6); Lymphocytes % 35.9 % (24.0-44.0); Mean Cell Volume 103.3 fL (78-100); Mean Corpuscular Hemoglobin 33.1 pg (26-32); Mean Corpuscular Hgb Concent. 32.1 g/dL (32-36); Mean Platelet Volume 11.1 fL (7.5-11.0); Monocyte (Absolute #) 0.25 x10^3/uL (0.0-1.3); Monocytes % 3.7 % (0.0-12.0); Neutrophil % 56.9 % (36.0-66.0); Platelet Count 69 x10^3/uL (150-450); Red Blood Count 3.02 x10^6/uL (4.1-5.4); Red Cell Distribution Width 18.7 % (11.5-14.0); White Blood Count 6.8 x10^3/uL (4.0-10.5)
[2022-10-08] MEDS ORDERED: Sodium Chloride 0.9% 1000 ML 1,000 ML IV STA (22:24)
[2022-10-08 22:27] LABS: ALBUMIN 3.3 g/dL (3.5-5.0); ANION GAP 13.3 MEQ/L (5-15); BILIRUBIN,TOTAL 0.3 mg/dL (0.2-1.3); Calcium 8.6 mg/dL (8.4-10.2); Creatinine 1 1.32 mg/dL (0.52-1.04); EST GLOMERULAR FILTRATION RATE 43.5 ML/MIN; Potassium 3.7 mmol/L (3.5-5.1); Total Protein 6.4 g/dL (6.3-8.2)
[2022-10-08 22:39] LABS: MAGNESIUM 1.8 mg/dL (1.6-2.3); NT PRO BNPII 145 pg/mL (<300); TROPONIN < 0.012 ng/mL (0.000-0.034)
--- NOTE | 2022-10-08 23:10 | XRAY ---
CLINICAL HISTORY:cp/cough COMPARISON:None; TECHNIQUES:Portable X-ray of the chest, AP view; FINDINGS: Right CVC is noted with its distal tip in the right atrium. Persistent large left pneumothorax but no tracheal shift is seen. Interval resolution of previous seen left pleural effusion. Right lung and CP angle are clear. No pneumothorax on right. Visualized bones are grossly normal. IMPRESSION: 1-Right CVC with its distal tip in the right atrium. 2-Persistent large left pneumothorax but no tracheal shift is seen. 3-Interval resolution of previously seen left pleural effusion. Electronically Signed by: Kishore Al MD. (10/08/2022 21:58:48 QUILLER RUNNER)
[2022-10-08] MEDS ORDERED: ROCEPHIN 2 Gm-D5w 50ML BAG** 2 G/50 ML IVPB IV STA (23:28)
[2022-10-08] MEDS ORDERED: Zithromax 500 MG/ 250 ML NaCl Premix 500 MG/250 ML IVPB IV STA (23:28)
[2022-10-09] MEDS ORDERED: Zithromax 500 MG/ 250 ML NaCl Premix 500 MG/250 ML IVPB IV ONE (01:47)
[2022-10-09] MEDS ORDERED: ROCEPHIN 2 Gm-D5w 50ML BAG** 2 G/50 ML IVPB IV ONE (01:47)
--- NOTE | 2022-10-09 02:18 | XRAY ---
CLINICAL HISTORY:sob/PE? COMPARISON:None; TECHNIQUES:CT chest angiography with IV contrast administration was performed. Coronal and sagittal reconstructions were also obtained; FINDINGS: An eccentric filling defect is noted in the left pulmonary artery in keeping with pulmonary embolism. Pulmonary trunk has a diameter of 2.9 cm and the heart size is normal. Large left pneumothorax which has intervally increased when compared with the previous scan's hydropneumothorax. Interval resolution of the fluid component of left hydropneumothorax. Mild subcutaneous emphysema is noted along the left lateral chest wall. Right lung shows mild apical fibrotic changes and emphysematous changes. Mild subpleural blebs are noted in the right lower lobe. Central airways are patent. Small hypodense nodule is noted in the left thyroid lobe. Needs ultrasound correlation. No supraclavicular, axillary or mediastinal lymphadenopathy. Scan through the upper abdomen shows stable moderate intra and extra-hepatic biliary channel dilatation. CBD has a diameter of 2 cm. Mild degenerative changes in the visualized skeleton. IMPRESSION: An eccentric filling defect is noted in the left pulmonary artery consistent with pulmonary embolism. Large left pneumothorax which has intervally increased when compared with the previous scan's hydropneumothorax. Mild tracheal shift towards the right. Interval resolution of the fluid component of left hydropneumothorax. [facility] ER was called at [phone] at 2:05 AM EST, 10/09/2022 and results were verbally communicated to Dr. Ang. Electronically Signed by: Kishore Al MD. (10/09/2022 01:09:59 INSPECTOR OPEN DIE)
[2022-10-09 02:44] LABS: INR 0.98 (0.8-3.0); PROTIME 10.7 SECONDS (9.4-12.5); PTT 28.9 SECONDS (25.1-36.5)
[2022-10-09] MEDS ORDERED: ENOXAPARIN SODIUM SQ STA (03:16)
[2022-10-09] MEDS ORDERED: HUMALOG SQ ONE (04:49)
[2022-10-09] MEDS ORDERED: HUMALOG ONE (04:53)
[2022-10-09 07:09] VITALS: BP 128/70; PULSE 92; O2SAT 96
== END 2022-10-09 07:20 | disposition short-term general hospital (02) ==
LOC: ED 21:41
DX: I26.99 Other pulmonary embolism without acute cor pulmonale (principal); N17.9 Acute kidney failure, unspecified; J44.1 Chronic obstructive pulmonary disease with (acute) exacerbation; R07.9 Chest pain, unspecified; R05.9 Cough, unspecified; I10 Essential (primary) hypertension; E78.5 Hyperlipidemia, unspecified; E11.9 Type 2 diabetes mellitus without complications; Z79.4 Long term (current) use of insulin; Z79.899 Other long term (current) drug therapy; Z72.0 Tobacco use
CPT/HCPCS: 36000; 36415; 71045; 71260; 80053; 82947; 83605; 83735; 83880; 84145; 84484; 85025; 85379; 85610; 85730; 93005; 93041; 94640; 96360; 96365; 96367; 96372; 96374; 96375; 99285; J0456; J0696; J1650; J1817; J2270; J2405; J2930; A9270-GY

== ENCOUNTER 2022-11-28 06:07 | Observation (INO) | payer BC ==
[2022-11-28] MEDS ORDERED: Sodium Chloride 0.9% 1000 ML 1,000 ML IV STA (06:49)
[2022-11-28] MEDS ORDERED: Sodium Chloride 0.9% 1000 ML 1,000 ML ONE ×2 (06:53→11:52)
[2022-11-28 06:56] LABS: Absolute Neutrophil Ct (ANC) 10.46 x10^3/uL (1.4-6.9); BASOPHIL % 0.3 % (0.0-0.4); Basophil (Absolute #) 0.04 x10^3/uL (0-0.4); Eosinophil % 0.1 % (0.00-5.0); Eosinophil (Absolute #) 0.01 x10^3/uL (0-0.5); Hematocrit 35.7 % (35-47); Hemoglobin 11.4 g/dL (12.0-16.0); IMMATURE GRAN # 0.04 x10^3u/L (0.00-0.03); IMMATURE GRAN % 0.3 % (0.00-0.4); Lymphocyte (Absolute #) 2.12 x10^3/uL (1.0-4.6); Lymphocytes % 15.4 % (24.0-44.0); Mean Cell Volume 101.4 fL (78-100); Mean Corpuscular Hemoglobin 32.4 pg (26-32); Mean Corpuscular Hgb Concent. 31.9 g/dL (32-36); Mean Platelet Volume 9.4 fL (7.5-11.0); Monocyte (Absolute #) 1.09 x10^3/uL (0.0-1.3); Monocytes % 7.9 % (0.0-12.0); Platelet Count 395 x10^3/uL (150-450); Red Blood Count 3.52 x10^6/uL (4.1-5.4); Red Cell Distribution Width 15.4 % (11.5-14.0); White Blood Count 13.8 x10^3/uL (4.0-10.5)
--- NOTE | 2022-11-28 06:57 | ERPHSYRPT ---
- History of Present Illness Source: patient, family Patient Subjective Stated Complaint: family states that pt's blood sugar has been running high since last night and they are concerned that she may be in dka because she has been having trouble following commands and has been "talking out of her head" Triage Nursing Assessment: pt alert, oriented to person, place and situation. pt not able to answer year or month correctly at this time. pupils equal and reactive. bilat upper and lower ext moves without diff. skin warm dry. respirations nonlabored. Hx Tetanus, Diphtheria Vaccination/Date Given: No Hx Influenza Vaccination/Date Given: Yes Hx Pneumococcal Vaccination/Date Given: Yes Immunizations Up to Date: No <HAYLEE BROOKS - Last Filed: 11/28/22 06:50> <NIKOLE HUFF - Last Filed: 11/28/22 11:46> - History of Present Illness Time Seen by Provider: 11/28/22 06:49 Physician History: 62-year-old female with history of diabetes mellitus, lung cancer status post left lower lobectomy, recently finished chemotherapy presented in the ER with chief complaint of elevated blood sugar and confusion. reports she was at her normal around 10 PM last night, they were checking her blood sugar every 3 hours, was in 470s, she received 20 units of insulin and later on was into 70s but he noticed she was talking out of her head. She has this kind of symptoms in the past with DKA. She denies any chest pain palpitations or shortness of breath. No abdominal pain nausea vomiting or diarrhea reported. No fever or chills. Patient is answering most of the question but not fully oriented. (HAYLEE BROOKS) Allergies/Adverse Reactions: orphenadrine citrate [From Norflex] Allergy (Intermediate, Verified 11/28/22 06:40) severe vomiting adhesive tape Allergy (Verified 11/28/22 06:40) hydrocodone bitartrate [From [place]] Adverse Reaction (Mild, Verified 11/28/22 06:40) nausea vomiting levofloxacin [From Levaquin] Adverse Reaction (Mild, Verified 11/28/22 06:40) Nausea and Vomiting Home Medications: Cyclobenzaprine HCl 10 mg [Cyclobenzaprine 10 MG] 10 mg PO QID PRN 02/13/19 [History] Promethazine HCl 25 mg [Phenergan 25 mg] 25 mg PO QID PRN 07/17/21 [History] ALPRAZolam 1 MG [Xanax 1 mg] 1 mg PO BID 07/18/22 [History] Atorvastatin Calcium 80 mg PO HS 07/18/22 [History] Budesonide/Glycopyr/Formoterol [Breztri Aerosphere Inhaler] 2 puff IH BID 08/30/22 [History] Gabapentin [Neurontin ] 300 mg PO HS 08/30/22 [History] Prochlorperazine Maleate [Compazine] 10 mg PO BIDPRN PRN 08/30/22 [History] Insulin Aspart [NovoLOG Insulin] 1 unit SQ BIDAC 10/08/22 [History] Insulin Glargine,Hum.rec.anlog [Toujeo Solostar] 14 unit SQ HS 10/08/22 [History] Travel Risk - International Travel Have you traveled outside of the country in past 3 weeks: No - Coronavirus Screening Are you exhibiting any of the following symptoms?: No Close contact with a COVID-19 positive Pt in past 14-21 Days: No - Vaccine Status Have you recieved a Covid-19 vaccination: Yes Land [employer]: Moderna - Vaccination Dates Date of 2cond Vaccination (if applicable): 2020 <HAYLEE BROOKS - Last Filed: 11/28/22 06:50> - Review of Systems Constitutional: No Symptoms Eyes: No Symptoms Ears, Nose, & Throat: No Symptoms Respiratory: No Symptoms Cardiac: No Symptoms Abdominal/Gastrointestinal: No Symptoms Genitourinary Symptoms: No Symptoms Musculoskeletal: No Symptoms Skin: No Symptoms Neurological: No Symptoms Hematologic/Lymphatic: No Symptoms Immunological/Allergic: No Symptoms <HAYLEE BROOKS - Last Filed: 11/28/22 06:50> - Past Medical History Pertinent Past Medical History: Yes Neurological History: No Pertinent History ENT History: No Pertinent History Cardiac History: Coronary Artery Disease, High Cholesterol, Hypertension Respiratory History: Asthma, Bronchitis, COPD, Emphysema, Lung Cancer, Pneumonia Endocrine Medical History: Diabetes Type II, Hypoglycemia Musculoskeletal History: Fractures GI Medical History: GERD History: Renal Disease Psycho-Social History: Anxiety, Depression Female Reproductive Disorders: No Pertinent History Other Medical History: Previous left leg fx many years ago,rt wrist fx with cast - Past Surgical History Past Surgical History: Yes Neuro Surgical History: No Pertinent History Cardiac: Cardiac Catheterization, Cardiac Stent Respiratory: Lobectomy Gastrointestinal: Cholecystectomy Genitourinary: No Pertinent History Musculoskeletal: Other Female Surgical History: Tubal Ligation Other Surgical History: BUNONECTOMY. BACK SURGERY X2, right upper chest port placement. LL lung lobectomy - Social History Smoking Status: Current every day smoker How long have you smoked: 40 YEARS Exposure to second hand smoke: Yes Alcohol Use: None Drug Use: none Patient Lives Alone: No Significant Family History: heart disease, diabetes, hypertension <HAYLEE BROOKS - Last Filed: 11/28/22 06:50> - Physical Exam General Appearance: no apparent distress Eye Exam: PERRL/EOMI Ears, Nose, Throat Exam: normal ENT inspection, TMs normal, pharynx normal, moist mucous membranes Neck Exam: normal inspection, non-tender, supple, full range of motion Respiratory Exam: normal breath sounds, lungs clear Cardiovascular Exam: normal heart sounds, tachycardia Gastrointestinal/Abdomen Exam: soft, normal bowel sounds, No tenderness Back Exam: normal inspection, normal range of motion Extremity Exam: normal inspection, normal range of motion Neurologic Exam: alert, cooperative, inbound sales advisor II-XII nml as tested, nml station & gait, sensation nml, No oriented x 3, No normal mood/affect (Flat), No motor deficits Skin Exam: normal color SpO2 Interpretation: normal SpO2: 99 O2 Delivery: Room Air <HAYLEE BROOKS - Last Filed: 11/28/22 06:50> - Nursing Vital Signs Nursing Vital Signs: Initial Vital Signs Temperature 98.7 F 11/28/22 06:17 Pulse Rate 121 H 11/28/22 06:17 Respiratory Rate 16 11/28/22 06:17 Blood Pressure 131/80 11/28/22 06:17 O2 Sat by Pulse Oximetry 99 11/28/22 06:17 Pain Scale Pain Intensity 0 - Course EKG Interpreted by Me: RATE (105), Sinus Tach, Right [place] Deviation, NORMAL QRS, NORMAL ST-T, Other (No acute ischemic changes on today's twelve-lead EKG. When compared to the twelve-lead EKG dated 10/08/2022, there is new sinus ta chycardia. The right axis deviation persists.) <NIKOLE HUFF - Last Filed: 11/28/22 11:46> Ordered Tests: Active Orders 24 hr Category Date Time Status Ladle Pourer STAT Care 11/28/22 06:50 Active EKG-ER Only STAT Care 11/28/22 06:49 Active IV Insertion STAT Care 11/28/22 06:40 Active CHEST 1 VIEW (PORTABLE) Stat Exams 11/28/22 06:49 Completed HEAD WITHOUT CONTRAST [CT] Stat Exams 11/28/22 06:40 Completed BLOOD CULTURE Stat Lab 11/28/22 07:25 Received CBC W DIFF Stat Lab 11/28/22 06:30 Completed CMP Stat Lab 11/28/22 06:30 Completed CULTURE,URINE Stat Lab 11/28/22 10:30 Received Lactic Acid Stat Lab 11/28/22 06:49 Completed Lactic Acid Stat Lab 11/28/22 09:02 Completed MAGNESIUM Stat Lab 11/28/22 06:30 Completed POCT GLUCOSE Stat Lab 11/28/22 06:27 Completed POCT GLUCOSE Stat Lab 11/28/22 11:24 Completed PROCALCITONIN Stat Lab 11/28/22 06:30 Completed TROPONIN Q4H Lab 11/28/22 06:30 Completed TROPONIN Q4H Lab 11/28/22 10:04 Completed TROPONIN Q4H Lab 11/28/22 15:00 Ordered UA W/RFX UR CULTURE Stat Lab 11/28/22 10:30 Completed VENOUS BLOOD GAS Urgent Lab 11/28/22 06:41 Completed Transfer Order Routine Transfer 11/28/22 Ordered Medication Summary Discontinued Medications Generic Name Dose Route Start Last Admin Trade Name [place] PRN Reason Stop Dose Admin Sodium Chloride 1,000 mls @ 999 mls/hr 11/28/22 06:49 11/28/22 08:11 Sodium Chloride 0.9% 1000 Ml IV 11/28/22 07:49 Infused .Q1H1M STA Infusion Sodium Chloride Confirm 11/28/22 06:53 Sodium Chloride 0.9% 1000 Ml Administered 11/28/22 06:54 Dose 1,000 mls @ ud .ROUTE .STK-MED ONE Sodium Chloride 500 mls @ 500 mls/hr 11/28/22 08:45 11/28/22 09:55 Sodium Chloride 0.9% 500 Ml IV 11/28/22 09:44 Infused .Q1H ONE Infusion Sodium Chloride Confirm 11/28/22 08:50 Sodium Chloride 0.9% 500 Ml Administered 11/28/22 08:51 Dose 500 mls @ ud IV .STK-MED ONE Ceftriaxone Sodium/Dextrose 1 g in 50 mls @ 100 mls/hr 11/28/22 11:04 11/28/22 11:37 Rocephin 1 Gm-D5w 50 Ml Bag IV 11/28/22 11:33 Infused STAT STA Infusion Ceftriaxone Sodium/Dextrose Confirm 11/28/22 11:06 Rocephin 1 Gm-D5w 50 Ml Bag Administered 11/28/22 11:07 Dose 1 g in 50 mls @ ud IV .STK-MED ONE Lab/Rad Data: Laboratory Result Diagrams 11/28/22 06:30 11/28/22 06:30 Laboratory Results 11/28/22 11/28/22 11/28/22 Range/Units 11:24 10:30 10:04 WBC (4.0-10.5) x10^3/uL RBC (4.1-5.4) x10^6/uL Hgb (12.0-16.0) g/dL Hct (35-47) % MCV (78-100) fL MCH (26-32) pg MCHC (32-36) g/dL RDW (11.5-14.0) % Plt Count (150-450) x10^3/uL MPV (7.5-11.0) fL Gran % (36.0-66.0) % Immature Gran % (Auto) (0.00-0.4) % Nucleat RBC Rel Count (0.00-0.1) % Eos # (Auto) (0-0.5) x10^3/uL Immature Gran # (Auto) (0.00-0.03) x10^3u/L Absolute Lymphs (auto) (1.0-4.6) x10^3/uL Absolute Monos (auto) (0.0-1.3) x10^3/uL Absolute Nucleated RBC (0.00-0.01) x10^3u/L Lymphocytes % (24.0-44.0) % Monocytes % (0.0-12.0) % Eosinophils % (0.00-5.0) % Basophils % (0.0-0.4) % Absolute Granulocytes (1.4-6.9) x10^3/uL Basophils # (0-0.4) x10^3/uL pO2/FiO2 Ratio % VBG pH (7.32-7.42) VBG pCO2 at Pat Temp (42-55) mm/Hg VBG pO2 at Pat Temp (25-40) mm/Hg VBG HCO3 (22-28) meq/L VBG O2 Sat (Moe) (95-100) VBG Base Excess (-2.0-2.0) VBG Hemoglobin VBG Carboxyhemoglobin (0.0-6.9) % T HGB POC Potassium (3.5-5.1) Sodium (137-145) mmol/L Potassium (3.5-5.1) mmol/L Chloride (98-107) mmol/L Carbon Dioxide (22-30) mmol/L Anion Gap (5-15) MEQ/L BUN (7-17) mg/dL Creatinine (0.52-1.04) mg/dL Estimated GFR ML/MIN Glucose (74-106) mg/dL POC Glucometer 427 H (74 to 106) mg/dL Lactic Acid (0.4-2.0) Calcium (8.4-10.2) mg/dL Magnesium (1.6-2.3) mg/dL Total Bilirubin (0.2-1.3) mg/dL AST (14-36) U/L ALT (0-35) U/L Alkaline Phosphatase (38-126) U/L Troponin I 0.014 (0.000-0.034) ng/mL Serum Total Protein (6.3-8.2) g/dL Albumin (3.5-5.0) g/dL Procalcitonin (0.030-0.080) ng/mL Urine Color Yellow (Yellow) Urine Appearance Clear (Clear) Urine pH 5.5 (4.6-8.0) Ur Specific [place] 1.025 (1.005-1.030) Urine Protein 30 (Negative) Urine Glucose (UA) >=1000 A (Negative) mg/dL Urine Ketones 40 A (Negative) Urine Blood Negative (Negative) Urine Nitrite Negative (Negative) Urine Bilirubin Negative (Negative) Urine Urobilinogen 1.0 A (0.2) mg/dL Ur Leukocyte Esterase Small A (Negative) U Hyaline Cast (Auto) 3-5 A (0-2) /LPF Urine Microscopic RBC 3-5 (0-5) /HPF Urine Microscopic WBC 11-20 A (0-5) /HPF Ur Epithelial Cells Few (None Seen) /HPF Urine Bacteria None Seen (None Seen) /HPF Urine Culture Reflexed YES (NO) Influenza Type A Ag (NEGATIVE) Influenza Type B Ag (NEGATIVE) RSV (PCR) (NEGATIVE) SARS-CoV-2 (PCR) (NEGATIVE) Group A Strep Antibody (NEGATIVE) 11/28/22 11/28/22 11/28/22 Range/Units 09:30 09:02 06:49 WBC (4.0-10.5) x10^3/uL RBC (4.1-5.4) x10^6/uL Hgb (12.0-16.0) g/dL Hct (35-47) % MCV (78-100) fL MCH (26-32) pg MCHC (32-36) g/dL RDW (11.5-14.0) % Plt Count (150-450) x10^3/uL MPV (7.5-11.0) fL Gran % (36.0-66.0) % Immature Gran % (Auto) (0.00-0.4) % Nucleat RBC Rel Count (0.00-0.1) % Eos # (Auto) (0-0.5) x10^3/uL Immature Gran # (Auto) (0.00-0.03) x10^3u/L Absolute Lymphs (auto) (1.0-4.6) x10^3/uL Absolute Monos (auto) (0.0-1.3) x10^3/uL Absolute Nucleated RBC (0.00-0.01) x10^3u/L Lymphocytes % (24.0-44.0) % Monocytes % (0.0-12.0) % Eosinophils % (0.00-5.0) % Basophils % (0.0-0.4) % Absolute Granulocytes (1.4-6.9) x10^3/uL Basophils # (0-0.4) x10^3/uL pO2/FiO2 Ratio % VBG pH (7.32-7.42) VBG pCO2 at Pat Temp (42-55) mm/Hg VBG pO2 at Pat Temp (25-40) mm/Hg VBG HCO3 (22-28) meq/L VBG O2 Sat (Moe) (95-100) VBG Base Excess (-2.0-2.0) VBG Hemoglobin VBG Carboxyhemoglobin (0.0-6.9) % T HGB POC Potassium (3.5-5.1) Sodium (137-145) mmol/L Potassium (3.5-5.1) mmol/L Chloride (98-107) mmol/L Carbon Dioxide (22-30) mmol/L Anion Gap (5-15) MEQ/L BUN (7-17) mg/dL Creatinine (0.52-1.04) mg/dL Estimated GFR ML/MIN Glucose (74-106) mg/dL POC Glucometer (74 to 106) mg/dL Lactic Acid 1.5 2.2 H (0.4-2.0) Calcium (8.4-10.2) mg/dL Magnesium (1.6-2.3) mg/dL Total Bilirubin (0.2-1.3) mg/dL AST (14-36) U/L ALT (0-35) U/L Alkaline Phosphatase (38-126) U/L Troponin I (0.000-0.034) ng/mL Serum Total Protein (6.3-8.2) g/dL Albumin (3.5-5.0) g/dL Procalcitonin (0.030-0.080) ng/mL Urine Color (Yellow) Urine Appearance (Clear) Urine pH (4.6-8.0) Ur Specific [place] (1.005-1.030) Urine Protein (Negative) Urine Glucose (UA) (Negative) mg/dL Urine Ketones (Negative) Urine Blood (Negative) Urine Nitrite (Negative) Urine Bilirubin (Negative) Urine Urobilinogen (0.2) mg/dL Ur Leukocyte Esterase (Negative) U Hyaline Cast (Auto) (0-2) /LPF Urine Microscopic RBC (0-5) /HPF Urine Microscopic WBC (0-5) /HPF Ur Epithelial Cells (None Seen) /HPF Urine Bacteria (None Seen) /HPF Urine Culture Reflexed (NO) Influenza Type A Ag NEGATIVE (NEGATIVE) Influenza Type B Ag NEGATIVE (NEGATIVE) RSV (PCR) NEGATIVE (NEGATIVE) SARS-CoV-2 (PCR) NEGATIVE (NEGATIVE) Group A Strep Antibody NOT DETECTED (NEGATIVE) 11/28/22 11/28/22 11/28/22 Range/Units 06:41 06:30 06:30 WBC (4.0-10.5) x10^3/uL RBC (4.1-5.4) x10^6/uL Hgb (12.0-16.0) g/dL Hct (35-47) % MCV (78-100) fL MCH (26-32) pg MCHC (32-36) g/dL RDW (11.5-14.0) % Plt Count (150-450) x10^3/uL MPV (7.5-11.0) fL Gran % (36.0-66.0) % Immature Gran % (Auto) (0.00-0.4) % Nucleat RBC Rel Count (0.00-0.1) % Eos # (Auto) (0-0.5) x10^3/uL Immature Gran # (Auto) (0.00-0.03) x10^3u/L Absolute Lymphs (auto) (1.0-4.6) x10^3/uL Absolute Monos (auto) (0.0-1.3) x10^3/uL Absolute Nucleated RBC (0.00-0.01) x10^3u/L Lymphocytes % (24.0-44.0) % Monocytes % (0.0-12.0) % Eosinophils % (0.00-5.0) % Basophils % (0.0-0.4) % Absolute Granulocytes (1.4-6.9) x10^3/uL Basophils # (0-0.4) x10^3/uL pO2/FiO2 Ratio 21.0 % VBG pH 7.38 (7.32-7.42) VBG pCO2 at Pat Temp 38 L (42-55) mm/Hg VBG pO2 at Pat Temp 55 H (25-40) mm/Hg VBG HCO3 22.5 (22-28) meq/L VBG O2 Sat (Moe) 90.3 L (95-100) VBG Base Excess -2.3 L (-2.0-2.0) VBG Hemoglobin 12.0 VBG Carboxyhemoglobin 5.6 (0.0-6.9) % T HGB POC Potassium 3.5 (3.5-5.1) Sodium 138 (137-145) mmol/L Potassium 3.6 (3.5-5.1) mmol/L Chloride 103 (98-107) mmol/L Carbon Dioxide 21 L (22-30) mmol/L Anion Gap 17.9 H (5-15) MEQ/L BUN 32 H (7-17) mg/dL Creatinine 1.09 H (0.52-1.04) mg/dL Estimated GFR 54.2 ML/MIN Glucose 201 H (74-106) mg/dL POC Glucometer (74 to 106) mg/dL Lactic Acid (0.4-2.0) Calcium 9.7 (8.4-10.2) mg/dL Magnesium 1.7 (1.6-2.3) mg/dL Total Bilirubin 0.50 (0.2-1.3) mg/dL AST 26 (14-36) U/L ALT 18 (0-35) U/L Alkaline Phosphatase 184 H (38-126) U/L Troponin I 0.020 (0.000-0.034) ng/mL Serum Total Protein 6.7 (6.3-8.2) g/dL Albumin 3.6 (3.5-5.0) g/dL Procalcitonin 0.547 H (0.030-0.080) ng/mL Urine Color (Yellow) Urine Appearance (Clear) Urine pH (4.6-8.0) Ur Specific [place] (1.005-1.030) Urine Protein (Negative) Urine Glucose (UA) (Negative) mg/dL Urine Ketones (Negative) Urine Blood (Negative) Urine Nitrite (Negative) Urine Bilirubin (Negative) Urine Urobilinogen (0.2) mg/dL Ur Leukocyte Esterase (Negative) U Hyaline Cast (Auto) (0-2) /LPF Urine Microscopic RBC (0-5) /HPF Urine Microscopic WBC (0-5) /HPF Ur Epithelial Cells (None Seen) /HPF Urine Bacteria (None Seen) /HPF Urine Culture Reflexed (NO) Influenza Type A Ag (NEGATIVE) Influenza Type B Ag (NEGATIVE) RSV (PCR) (NEGATIVE) SARS-CoV-2 (PCR) (NEGATIVE) Group A Strep Antibody (NEGATIVE) 11/28/22 11/28/22 Range/Units 06:30 06:27 WBC 13.8 H (4.0-10.5) x10^3/uL RBC 3.52 L (4.1-5.4) x10^6/uL Hgb 11.4 L (12.0-16.0) g/dL Hct 35.7 (35-47) % MCV 101.4 H (78-100) fL MCH 32.4 H (26-32) pg MCHC 31.9 L (32-36) g/dL RDW 15.4 H (11.5-14.0) % Plt Count 395 (150-450) x10^3/uL MPV 9.4 (7.5-11.0) fL Gran % 76.0 H (36.0-66.0) % Immature Gran % (Auto) 0.3 (0.00-0.4) % Nucleat RBC Rel Count 0.0 (0.00-0.1) % Eos # (Auto) 0.01 (0-0.5) x10^3/uL Immature Gran # (Auto) 0.04 H (0.00-0.03) x10^3u/L Absolute Lymphs (auto) 2.12 (1.0-4.6) x10^3/uL Absolute Monos (auto) 1.09 (0.0-1.3) x10^3/uL Absolute Nucleated RBC 0.00 (0.00-0.01) x10^3u/L Lymphocytes % 15.4 L (24.0-44.0) % Monocytes % 7.9 (0.0-12.0) % Eosinophils % 0.1 (0.00-5.0) % Basophils % 0.3 (0.0-0.4) % Absolute Granulocytes 10.46 H (1.4-6.9) x10^3/uL Basophils # 0.04 (0-0.4) x10^3/uL pO2/FiO2 Ratio % VBG pH (7.32-7.42) VBG pCO2 at Pat Temp (42-55) mm/Hg VBG pO2 at Pat Temp (25-40) mm/Hg VBG HCO3 (22-28) meq/L VBG O2 Sat (Moe) (95-100) VBG Base Excess (-2.0-2.0) VBG Hemoglobin VBG Carboxyhemoglobin (0.0-6.9) % T HGB POC Potassium (3.5-5.1) Sodium (137-145) mmol/L Potassium (3.5-5.1) mmol/L Chloride (98-107) mmol/L Carbon Dioxide (22-30) mmol/L Anion Gap (5-15) MEQ/L BUN (7-17) mg/dL Creatinine (0.52-1.04) mg/dL Estimated GFR ML/MIN Glucose (74-106) mg/dL POC Glucometer 205 H (74 to 106) mg/dL Lactic Acid (0.4-2.0) Calcium (8.4-10.2) mg/dL Magnesium (1.6-2.3) mg/dL Total Bilirubin (0.2-1.3) mg/dL AST (14-36) U/L ALT (0-35) U/L Alkaline Phosphatase (38-126) U/L Troponin I (0.000-0.034) ng/mL Serum Total Protein (6.3-8.2) g/dL Albumin (3.5-5.0) g/dL Procalcitonin (0.030-0.080) ng/mL Urine Color (Yellow) Urine Appearance (Clear) Urine pH (4.6-8.0) Ur Specific [place] (1.005-1.030) Urine Protein (Negative) Urine Glucose (UA) (Negative) mg/dL Urine Ketones (Negative) Urine Blood (Negative) Urine Nitrite (Negative) Urine Bilirubin (Negative) Urine Urobilinogen (0.2) mg/dL Ur Leukocyte Esterase (Negative) U Hyaline Cast (Auto) (0-2) /LPF Urine Microscopic RBC (0-5) /HPF Urine Microscopic WBC (0-5) /HPF Ur Epithelial Cells (None Seen) /HPF Urine Bacteria (None Seen) /HPF Urine Culture Reflexed (NO) Influenza Type A Ag (NEGATIVE) Influenza Type B Ag (NEGATIVE) RSV (PCR) (NEGATIVE) SARS-CoV-2 (PCR) (NEGATIVE) Group A Strep Antibody (NEGATIVE) <HAYLEE BROOKS - Last Filed: 11/28/22 06:50> - Progress Progress: improved, pain not gone completely, re-examined Counseled pt/family regarding: lab results, diagnosis, need for follow-up, rad results <NIKOLE HUFF MosesDelaney - Last Filed: 11/28/22 11:46> - Progress Progress Note: 11/28/22 06:57 62-year-old female with history of diabetes mellitus, lung cancer status post left lower lobectomy, recently finished chemotherapy presented in the ER with chief complaint of elevated blood sugar and confusion. reports she was at her normal around 10 PM last night, they were checking her blood sugar every 3 hours, was in 470s, she received 20 units of insulin and later on was into 70s but he noticed she was talking out of her head. She has this kind of symptoms in the past with DKA. She denies any chest pain palpitations or shortness of breath. No abdominal pain nausea vomiting or diarrhea reported. No fever or chills. Patient is answering most of the question but not fully oriented. We will give fluids, broad work-up is ordered including DKA and stroke. Work-up is pending, I have discussed patient's history and current work-up and care is transferred to Dr. Huff at shift change for reevaluation and final disposition. (HAYLEE BROOKS) 11/28/22 08:01 This patient underwent a CT scan of the head/stroke protocol. The radiologist interpreted the scan as a normal study. The daughter had asked the nurse if I could review with her the results of the work-up. However, this was approximately 7:30 AM and I was seeing another patient and work-up results have not returned yet. I asked the nurse to obtain phone number of the patient's daughter. However, the daughter stated that we could just speak with the patient's and he would be updating her. 11/28/22 08:16 This patient's medical issues at least moderate complexity. I reviewed the work-up results that Dr. Brooks ordered. Patient has yet to provide us with a ur inalysis. Patient is receiving normal saline solution 1 L infusion. Once we receive the urine and the report from the urinalysis, we will make further recommendations. I reviewed everything that I knew at this time with the patient's spouse. He is going to inform and update his daughter. There are some chronic issues that they are concerned with. That is, bilateral hip pain. X-rays were performed which did not show any lytic lesions or acute fractures or dislocations. Patient is to follow-up in walk-in clinics either at [facility] or here at [facility] outpatient orthopedic services. Those services will make further recommendations. Patient is also to follow-up with her taxation accountant today to make arrangements to help better control this patient's blood sugar levels. 11/28/22 11:04 This patient's medical issue is 1 of high complexity. The level of complexity in the work-up performed is based on review of the patient's past medical history as well as the review of medication list, review of the patient's drug allergy list, history present illness and physical finds on examination. Dr. Brooks performed the original evaluation and work-up. I added viral studies. I followed up on the results of this work-up and informed the patient's spouse of the findings. The urinalysis shows dehydration with evidence of ketones present as well as a urinary tract infection. Patient is still mildly lethargic. We will contact the telehospitalist and discuss placing this patient in observation and continue IV hydration as well as a sliding scale insulin and blood sugar monitoring as well as repeating labs in the morning and intravenous antibiotics. 11/28/22 11:[address] Davidson. I reviewed the patient history and physical findings as well as the work-up results. He also was able to pull up the results of the work-up and he agrees with placing this patient in observation and providing IV hydration, continue intravenous Rocephin, sliding scale insulin coverage and he will write an order, after he evaluates her when she gets to the floor, to repeat labs. 11/28/22 11:41 Patient's blood sugar spiked to approximately 462 on Accu-Chek. I contacted Dr. Davidson. Therefore we will place the patient in ICU and start an insulin drip a nd monitor her closely there. He is going to evaluate the patient and decide on further lab studies. I spoke with the patient's spouse and he/they are agreeable for admission (NIKOLE HUFF) Medical Desision Making - Independent Historian Additional History obtained from: Spouse, Child (Daughter) - Discussion of managment Care discussed with:: hospitalist (Dr. Davidson) Reviewed:: Test results, Need for additional workup Agreed on:: Treatment plan, decision to admit - Diagnostic Testing Diagnostic test were ordered, analyzed, and reviewed by me: Yes Radiological Interpretation: Reviewed by me, Teleradiologist Report - Risk of complications The pt has a high risk of morbidity or mortality based on: Decision regarding hospitilization or escalation of hosp level of care <NIKOLE HUFF - Last Filed: 11/28/22 11:46> <HAYLEE BROOKS - Last Filed: 11/28/22 06:50> - Departure Departure Disposition: Observation Critical Care Time: Yes Critical Care Time(excluding separately billable procedures): Critical 30-74 mins (30) <NIKOLE HUFF - Last Filed: 11/28/22 11:46> - Departure Clinical Impression: UTI (urinary tract infection), Dehydration, DKA (diabetic ketoacidosis), Confusion Condition: Fair Referrals: LYUDMILA ARIAS MD [Primary Care Provider] - Follow up/PCP as directed
[2022-11-28 07:05] LABS: VBG BASE EXCESS -2.3 (-2.0-2.0); VBG CARBOXYHEMOGLOBIN 5.6 % T HGB (0.0-6.9); VBG HCO3- 22.5 meq/L (22-28); VBG O2 SATURATION 90.3 (95-100); VBG POTASSIUM 3.5 (3.5-5.1); VBG pH 7.38 (7.32-7.42)
[2022-11-28 07:32] LABS: ALBUMIN 3.6 g/dL (3.5-5.0); ANION GAP 17.9 MEQ/L (5-15); BILIRUBIN,TOTAL 0.5 mg/dL (0.2-1.3); Calcium 9.7 mg/dL (8.4-10.2); Creatinine 1 1.09 mg/dL (0.52-1.04); EST GLOMERULAR FILTRATION RATE 54.2 ML/MIN; MAGNESIUM 1.7 mg/dL (1.6-2.3); PROCALCITONIN 0.547 ng/mL (0.030-0.080); Potassium 3.6 mmol/L (3.5-5.1); Total Protein 6.7 g/dL (6.3-8.2)
[2022-11-28] MEDS ORDERED: Sodium Chloride 0.9% 500 ML 500 ML IV ONE ×2 (08:45→08:50)
--- NOTE | 2022-11-28 08:47 | XRAY ---
Indication: Confusion. Low blood pressure. Stroke. Multiple contiguous axial images obtained through the head. Comparison: January 07, 2021. Age-appropriate global atrophy with minimal periventricular degenerative micro-ischemia bilaterally. No acute intracranial hemorrhage, abnormal extra-axial fluid collection, or mass effect. Fourth ventricle is midline without hydrocephalus. Orozco-white matter differentiation preserved. Bony calvarium intact. Visualized paranasal sinuses and mastoid air cells are clear. Impression: Atrophy and degenerative micro-ischemia within normal limits for patient's age. No new or acute intracranial abnormalities.
--- NOTE | 2022-11-28 08:53 | XRAY ---
Indication: Altered mental status. Comparison: October 08, 2022 Portable chest unchanged again demonstrating grossly stable chronic moderate left pneumothorax and tiny left base calcified granuloma. Remaining heart and lungs unremarkable again with right Port-A-Cath. Bony thorax intact again with osteopenia. No new cardiopulmonary abnormalities.
[2022-11-28 10:05] LABS: Group A Strep NOT DETECTED (NEGATIVE)
[2022-11-28 10:18] LABS: INFLUENZA A NEGATIVE (NEGATIVE); INFLUENZA B NEGATIVE (NEGATIVE); RESPIRATORY SYNCTIAL VIRUS NEGATIVE (NEGATIVE); SARS-CoV-2 Xpert Express NEGATIVE (NEGATIVE)
[2022-11-28 10:56] LABS: Appearance Clear (Clear); Bacteria None Seen /HPF (None Seen); Bilirubin Negative (Negative); Blood Negative (Negative); Epithelial Cells Few /HPF (None Seen); Glucose, Urine >=1000 mg/dL (Negative); Ketones 40 (Negative); Leukocyte Esterase Small (Negative); Nitrite Negative (Negative); Ph 5.5 (4.6-8.0); Protein,Urine Dip 30 (Negative); Specific Gravity 1.025 (1.005-1.030)
[2022-11-28 11:00] LABS: ADD URINE CULTURE? YES (NO)
[2022-11-28] MEDS ORDERED: ROCEPHIN 1 Gm-D5w 50 ml Bag** 1 G/50 ML IVPB IV STA (11:04)
[2022-11-28] MEDS ORDERED: ROCEPHIN 1 Gm-D5w 50 ml Bag** 1 G/50 ML IVPB IV ONE (11:06)
[2022-11-28] MEDS ORDERED: MAGNESIUM SULF 2 G/50 ML BAG 2 GM/50 ML PIGGYBACK IV ONE ×2 (11:52→11:53)
[2022-11-28] MEDS ORDERED: Sodium Chloride 0.9% 1000 ML 1,000 ML IV SCH ×2 (12:00→14:22)
[2022-11-28] MEDS ORDERED: MYXREDLIN 100 UNIT/100 ML BAG 100 UNIT/100 ML PLAST..BAG IV PRN (12:05)
[2022-11-28] MEDS: POTASSIUM CHLORIDE 20 mEq IN WATER 100ML 20 MEQ/100 ML BAG IV SCH ×2 (12:53→14:59)
[2022-11-28] MEDS ORDERED: HUMULIN R SQ PRN (14:22)
[2022-11-28] MEDS ORDERED: Zofran 4 MG/2 ML VIAL IV PRN (14:22)
[2022-11-28] MEDS ORDERED: TYLENOL 325 MG PO PRN (14:22)
[2022-11-28] MEDS ORDERED: ENOXAPARIN SODIUM SQ SCH (15:00)
[2022-11-28] MEDS ORDERED: Abilify 10 MG PO PRN (19:49)
[2022-11-28] MEDS ORDERED: Cyclobenzaprine 10 MG PO ONE (19:51)
[2022-11-28] MEDS ORDERED: NORCO 5/325 MG PO PRN (19:53)
[2022-11-28] MEDS ORDERED: Compazine 5 MG PO PRN (19:55)
[2022-11-28] MEDS ORDERED: PHENERGAN 25 MG PO PRN (19:56)
[2022-11-28] MEDS: ULTRAM 50 MG PO SCH (21:05)
[2022-11-28] MEDS: NEURONTIN PO SCH (21:05)
[2022-11-28] MEDS: XANAX 1 MG PO SCH (21:05)
[2022-11-28] MEDS ORDERED: Cyclobenzaprine 10 MG PO PRN (21:14)
--- NOTE | 2022-11-28 21:29 | PCM.HP ---
History of Present Illness - Chief Complaint Chief Complaint: Confusion Date: 11/28/22 History of Present Illness: 62-year-old woman with a history of brittle type 2 diabetes, lung cancer status post left lower lobectomy and recent chemotherapy, as well as chronic hip pain from osteoarthritis, who presents from home with confusion. Per report, patient has been feeling poorly for the past few weeks. She completed chemotherapy 3 weeks ago, but has had a hard time with having any appetite, as well as low energy and increased lethargy overall. She has been inconsistent with monitoring her blood sugars, and has noted that her Dexcom has been inaccurate, and has been reliant upon fingerstick glucose measurements. Her noted that she had not been compliant recently, but that her diabetes is very brittle and easily gets out of control. As well, she has had multiple admissions with confusion secondary to acute cystitis. Today, noted that this morning patient was confused, more lethargic, not answering questions appropriately. - Review of Systems Constitutional: No Fever, No Fatigue, No Lethargy Eyes: No Symptoms Ears, Nose, & Throat: No Symptoms Respiratory: No Cough, No Short Of Breath Cardiac: No Chest Pain, No Palpitations Abdominal/Gastrointestinal: Appetite Changes (Chronic since chemotherapy), No Abdominal Pain, No Nausea, No Vomiting Genitourinary Symptoms: No Dysuria, No Frequency, No Hematuria Musculoskeletal: Joint Pain, No Joint Redness, No Joint Swelling Skin: No Cellulitis, No Rash, No Skin Lesions Neurological: Other (Confusion) Psychological: No Symptoms Endocrine: No Polyuria, No Polydipsia Medications & Allergies Home Medications: Home Medication List Cyclobenzaprine HCl 10 mg [Cyclobenzaprine 10 MG] 10 mg PO QID PRN 02/13/19 [History Confirmed 11/28/22] Promethazine HCl 25 mg [Phenergan 25 mg] 25 mg PO QID PRN 07/17/21 [History Confirmed 11/28/22] ALPRAZolam 1 MG [Xanax 1 mg] 1 mg PO BID 07/18/22 [History Confirmed 11/28/22] Budesonide/Glycopyr/Formoterol [Breztri Aerosphere Inhaler] 2 puff IH BID 08/30/22 [History Confirmed 11/28/22] Prochlorperazine Maleate [Compazine] 10 mg PO BIDPRN PRN 08/30/22 [History Confirmed 11/28/22] Insulin Aspart [NovoLOG Insulin] 4 unit SQ AC 10/08/22 [History Confirmed 11/28/22] Gabapentin [Neurontin ] 300 mg PO TID #60 cap 11/20/22 [Rx Confirmed 11/28/22] Tramadol HCl 50 mg [Ultram 50 mg] 50 mg PO TID #30 tablet 11/20/22 [Rx Confirmed 11/28/22] Apixaban [Eliquis] 5 mg PO BID 11/28/22 [History Confirmed 11/28/22] Aripiprazole 10 mg [Abilify 10 MG] 10 mg PO DAILY PRN PRN 11/28/22 [History Confirmed 11/28/22] Hydrocodone/Acetaminophen [Hydrocodone-Acetamin 5-325 mg] 1 tab PO BID PRN 11/28/22 [History Confirmed 11/28/22] Insulin Glargine,Hum.rec.anlog [Ward Laughlin] 14 unit SQ QHS 11/28/22 [History Confirmed 11/28/22] Metoprolol Tartrate 50 mg [Lopressor 50 MG] 50 mg PO DAILY 11/28/22 [History Confirmed 11/28/22] Allergies/Adverse Reactions: Allergies Allergy/AdvReac Type Severity Reaction Status Date / Time orphenadrine citrate Allergy Intermediate Verified 11/28/22 06:40 [From Norflex] adhesive tape Allergy Verified 11/28/22 06:40 levofloxacin [From Levaquin] AdvReac Mild Nausea and Verified 11/28/22 06:40 Vomiting - Past Medical History Past Medical History: Yes Neurological History: No Pertinent History ENT History: Cataracts Cardiac History: Coronary Artery Disease, High Cholesterol, Hypertension Respiratory History: COPD, Lung Cancer (Status post left lower lobectomy, chemotherapy) Endocrine Medical History: Diabetes Type II GI Medical History: GERD Pyscho-Social History: Anxiety, Depression Reproductive Disorders: No Pertinent History Comment: Previous left leg fx many years ago,rt wrist fx with cast. left lower lobe lung cancer. chemo - Female History Are you now?: No - Past Surgical History Past Surgical History: Yes Neuro Surgical History: No Pertinent History Cardiac History: Cardiac Catheterization, Cardiac Stent Respiratory Surgery: Lobectomy GI Surgical History: Cholecystectomy Genitourinary Surgical Hx: No Pertinent History Musculskeletal Surgical Hx: Other Female Surgical History: Tubal Ligation Other Surgical History: BUNONECTOMY. BACK SURGERY X2, right upper chest port placement. LL lung lobectomy - Social History Smoking Status: Heavy tobacco smoker How long have you smoked: 50 years Exposure to second hand smoke: No Alcohol: None Drug Use: none Significant Family History: heart disease, diabetes, hypertension - Physical Exam Vital Signs: Vital Signs - 24 hr Temp Pulse Resp BP BP Pulse Ox 11/28/22 19:49 66 11/28/22 16:00 115 H 11/28/22 13:35 97.8 F 125 H 23 156/64 97 11/28/22 12:30 122 H 24 141/84 100 11/28/22 12:00 119 H 28 H 148/65 99 11/28/22 11:30 118 H 11 L 151/70 11/28/22 11:00 118 H 15 147/65 11/28/22 10:31 118 H 23 140/94 11/28/22 10:00 118 H 14 145/65 11/28/22 09:30 120 H 22 138/52 11/28/22 09:00 114 H 22 146/63 99 11/28/22 08:30 113 H 22 141/56 11/28/22 08:00 115 H 22 151/62 11/28/22 07:30 111 H 19 152/74 11/28/22 07:29 104 H 21 11/28/22 07:20 101 H 19 11/28/22 07:18 124 H 11/28/22 06:58 99 11/28/22 06:17 98.7 F 121 H 16 131/80 99 Additional Findings: GENERAL: Sitting up in bed in no acute distress NEURO: Alert, oriented x3, flat affect, allowing to answer most q uestions CV: Regular rate and rhythm, no murmurs, no edema PULM: Clear to auscultation bilaterally, no work of breathing ABD: Soft, nontender, nondistended Results - Labs Lab/Micro Results: Lab Results-Last 24 Hours 11/28/22 11/28/22 11/28/22 Range/Units 06:27 06:30 06:30 WBC 13.8 H (4.0-10.5) x10^3/uL RBC 3.52 L (4.1-5.4) x10^6/uL Hgb 11.4 L (12.0-16.0) g/dL Hct 35.7 (35-47) % MCV 101.4 H (78-100) fL MCH 32.4 H (26-32) pg MCHC 31.9 L (32-36) g/dL RDW 15.4 H (11.5-14.0) % Plt Count 395 (150-450) x10^3/uL MPV 9.4 (7.5-11.0) fL Gran % 76.0 H (36.0-66.0) % Immature Gran % (Auto) 0.3 (0.00-0.4) % Nucleat RBC Rel Count 0.0 (0.00-0.1) % Eos # (Auto) 0.01 (0-0.5) x10^3/uL Immature Gran # (Auto) 0.04 H (0.00-0.03) x10^3u/L Absolute Lymphs (auto) 2.12 (1.0-4.6) x10^3/uL Absolute Monos (auto) 1.09 (0.0-1.3) x10^3/uL Absolute Nucleated RBC 0.00 (0.00-0.01) x10^3u/L Lymphocytes % 15.4 L (24.0-44.0) % Monocytes % 7.9 (0.0-12.0) % Eosinophils % 0.1 (0.00-5.0) % Basophils % 0.3 (0.0-0.4) % Absolute Granulocytes 10.46 H (1.4-6.9) x10^3/uL Basophils # 0.04 (0-0.4) x10^3/uL pO2/FiO2 Ratio % VBG pH (7.32-7.42) VBG pCO2 at Pat Temp (42-55) mm/Hg VBG pO2 at Pat Temp (25-40) mm/Hg VBG HCO3 (22-28) meq/L VBG O2 Sat (Moe) (95-100) VBG Base Excess (-2.0-2.0) VBG Hemoglobin VBG Carboxyhemoglobin (0.0-6.9) % T HGB POC Potassium (3.5-5.1) Sodium 138 (137-145) mmol/L Potassium 3.6 (3.5-5.1) mmol/L Chloride 103 (98-107) mmol/L Carbon Dioxide 21 L (22-30) mmol/L Anion Gap 17.9 H (5-15) MEQ/L BUN 32 H (7-17) mg/dL Creatinine 1.09 H (0.52-1.04) mg/dL Estimated GFR 54.2 ML/MIN Glucose 201 H (74-106) mg/dL POC Glucometer 205 H (74 to 106) mg/dL Lactic Acid (0.4-2.0) Calcium 9.7 (8.4-10.2) mg/dL Magnesium 1.7 (1.6-2.3) mg/dL Total Bilirubin 0.50 (0.2-1.3) mg/dL AST 26 (14-36) U/L ALT 18 (0-35) U/L Alkaline Phosphatase 184 H (38-126) U/L Troponin I (0.000-0.034) ng/mL Serum Total Protein 6.7 (6.3-8.2) g/dL Albumin 3.6 (3.5-5.0) g/dL Prealbumin (17.6-36.0) mg/dL Procalcitonin 0.547 H (0.030-0.080) ng/mL Urine Color (Yellow) Urine Appearance (Clear) Urine pH (4.6-8.0) Ur Specific Fords (1.005-1.030) Urine Protein (Negative) Urine Glucose (UA) (Negative) mg/dL Urine Ketones (Negative) Urine Blood (Negative) Urine Nitrite (Negative) Urine Bilirubin (Negative) Urine Urobilinogen (0.2) mg/dL Ur Leukocyte Esterase (Negative) U Hyaline Cast (Auto) (0-2) /LPF Urine Microscopic RBC (0-5) /HPF Urine Microscopic WBC (0-5) /HPF Ur Epithelial Cells (None Seen) /HPF Urine Bacteria (None Seen) /HPF Urine Culture Reflexed (NO) Influenza Type A Ag (NEGATIVE) Influenza Type B Ag (NEGATIVE) RSV (PCR) (NEGATIVE) SARS-CoV-2 (PCR) (NEGATIVE) Group A Strep Antibody (NEGATIVE) 11/28/22 11/28/22 11/28/22 Range/Units 06:30 06:41 06:49 WBC (4.0-10.5) x10^3/uL RBC (4.1-5.4) x10^6/uL Hgb (12.0-16.0) g/dL Hct (35-47) % MCV (78-100) fL MCH (26-32) pg MCHC (32-36) g/dL RDW (11.5-14.0) % Plt Count (150-450) x10^3/uL MPV (7.5-11.0) fL Gran % (36.0-66.0) % Immature Gran % (Auto) (0.00-0.4) % Nucleat RBC Rel Count (0.00-0.1) % Eos # (Auto) (0-0.5) x10^3/uL Immature Gran # (Auto) (0.00-0.03) x10^3u/L Absolute Lymphs (auto) (1.0-4.6) x10^3/uL Absolute Monos (auto) (0.0-1.3) x10^3/uL Absolute Nucleated RBC (0.00-0.01) x10^3u/L Lymphocytes % (24.0-44.0) % Monocytes % (0.0-12.0) % Eosinophils % (0.00-5.0) % Basophils % (0.0-0.4) % Absolute Granulocytes (1.4-6.9) x10^3/uL Basophils # (0-0.4) x10^3/uL pO2/FiO2 Ratio 21.0 % VBG pH 7.38 (7.32-7.42) VBG pCO2 at Pat Temp 38 L (42-55) mm/Hg VBG pO2 at Pat Temp 55 H (25-40) mm/Hg VBG HCO3 22.5 (22-28) meq/L VBG O2 Sat (Moe) 90.3 L (95-100) VBG Base Excess -2.3 L (-2.0-2.0) VBG Hemoglobin 12.0 VBG Carboxyhemoglobin 5.6 (0.0-6.9) % T HGB POC Potassium 3.5 (3.5-5.1) Sodium (137-145) mmol/L Potassium (3.5-5.1) mmol/L Chloride (98-107) mmol/L Carbon Dioxide (22-30) mmol/L Anion Gap (5-15) MEQ/L BUN (7-17) mg/dL Creatinine (0.52-1.04) mg/dL Estimated GFR ML/MIN Glucose (74-106) mg/dL POC Glucometer (74 to 106) mg/dL Lactic Acid 2.2 H (0.4-2.0) Calcium (8.4-10.2) mg/dL Magnesium (1.6-2.3) mg/dL Total Bilirubin (0.2-1.3) mg/dL AST (14-36) U/L ALT (0-35) U/L Alkaline Phosphatase (38-126) U/L Troponin I 0.020 (0.000-0.034) ng/mL Serum Total Protein (6.3-8.2) g/dL Albumin (3.5-5.0) g/dL Prealbumin (17.6-36.0) mg/dL Procalcitonin (0.030-0.080) ng/mL Urine Color (Yellow) Urine Appearance (Clear) Urine pH (4.6-8.0) Ur Specific Fords (1.005-1.030) Urine Protein (Negative) Urine Glucose (UA) (Negative) mg/dL Urine Ketones (Negative) Urine Blood (Negative) Urine Nitrite (Negative) Urine Bilirubin (Negative) Urine Urobilinogen (0.2) mg/dL Ur Leukocyte Esterase (Negative) U Hyaline Cast (Auto) (0-2) /LPF Urine Microscopic RBC (0-5) /HPF Urine Microscopic WBC (0-5) /HPF Ur Epithelial Cells (None Seen) /HPF Urine Bacteria (None Seen) /HPF Urine Culture Reflexed (NO) Influenza Type A Ag (NEGATIVE) Influenza Type B Ag (NEGATIVE) RSV (PCR) (NEGATIVE) SARS-CoV-2 (PCR) (NEGATIVE) Group A Strep Antibody (NEGATIVE) 11/28/22 11/28/22 11/28/22 Range/Units 09:02 09:30 10:04 WBC (4.0-10.5) x10^3/uL RBC (4.1-5.4) x10^6/uL Hgb (12.0-16.0) g/dL Hct (35-47) % MCV (78-100) fL MCH (26-32) pg MCHC (32-36) g/dL RDW (11.5-14.0) % Plt Count (150-450) x10^3/uL MPV (7.5-11.0) fL Gran % (36.0-66.0) % Immature Gran % (Auto) (0.00-0.4) % Nucleat RBC Rel Count (0.00-0.1) % Eos # (Auto) (0-0.5) x10^3/uL Immature Gran # (Auto) (0.00-0.03) x10^3u/L Absolute Lymphs (auto) (1.0-4.6) x10^3/uL Absolute Monos (auto) (0.0-1.3) x10^3/uL Absolute Nucleated RBC (0.00-0.01) x10^3u/L Lymphocytes % (24.0-44.0) % Monocytes % (0.0-12.0) % Eosinophils % (0.00-5.0) % Basophils % (0.0-0.4) % Absolute Granulocytes (1.4-6.9) x10^3/uL Basophils # (0-0.4) x10^3/uL pO2/FiO2 Ratio % VBG pH (7.32-7.42) VBG pCO2 at Pat Temp (42-55) mm/Hg VBG pO2 at Pat Temp (25-40) mm/Hg VBG HCO3 (22-28) meq/L VBG O2 Sat (Moe) (95-100) VBG Base Excess (-2.0-2.0) VBG Hemoglobin VBG Carboxyhemoglobin (0.0-6.9) % T HGB POC Potassium (3.5-5.1) Sodium (137-145) mmol/L Potassium (3.5-5.1) mmol/L Chloride (98-107) mmol/L Carbon Dioxide (22-30) mmol/L Anion Gap (5-15) MEQ/L BUN (7-17) mg/dL Creatinine (0.52-1.04) mg/dL Estimated GFR ML/MIN Glucose (74-106) mg/dL POC Glucometer (74 to 106) mg/dL Lactic Acid 1.5 (0.4-2.0) Calcium (8.4-10.2) mg/dL Magnesium (1.6-2.3) mg/dL Total Bilirubin (0.2-1.3) mg/dL AST (14-36) U/L ALT (0-35) U/L Alkaline Phosphatase (38-126) U/L Troponin I 0.014 (0.000-0.034) ng/mL Serum Total Protein (6.3-8.2) g/dL Albumin (3.5-5.0) g/dL Prealbumin (17.6-36.0) mg/dL Procalcitonin (0.030-0.080) ng/mL Urine Color (Yellow) Urine Appearance (Clear) Urine pH (4.6-8.0) Ur Specific Fords (1.005-1.030) Urine Protein (Negative) Urine Glucose (UA) (Negative) mg/dL Urine Ketones (Negative) Urine Blood (Negative) Urine Nitrite (Negative) Urine Bilirubin (Negative) Urine Urobilinogen (0.2) mg/dL Ur Leukocyte Esterase (Negative) U Hyaline Cast (Auto) (0-2) /LPF Urine Microscopic RBC (0-5) /HPF Urine Microscopic WBC (0-5) /HPF Ur Epithelial Cells (None Seen) /HPF Urine Bacteria (None Seen) /HPF Urine Culture Reflexed (NO) Influenza Type A Ag NEGATIVE (NEGATIVE) Influenza Type B Ag NEGATIVE (NEGATIVE) RSV (PCR) NEGATIVE (NEGATIVE) SARS-CoV-2 (PCR) NEGATIVE (NEGATIVE) Group A Strep Antibody NOT DETECTED (NEGATIVE) 11/28/22 11/28/22 11/28/22 Range/Units 10:30 11:00 11:24 WBC (4.0-10.5) x10^3/uL RBC (4.1-5.4) x10^6/uL Hgb (12.0-16.0) g/dL Hct (35-47) % MCV (78-100) fL MCH (26-32) pg MCHC (32-36) g/dL RDW (11.5-14.0) % Plt Count (150-450) x10^3/uL MPV (7.5-11.0) fL Gran % (36.0-66.0) % Immature Gran % (Auto) (0.00-0.4) % Nucleat RBC Rel Count (0.00-0.1) % Eos # (Auto) (0-0.5) x10^3/uL Immature Gran # (Auto) (0.00-0.03) x10^3u/L Absolute Lymphs (auto) (1.0-4.6) x10^3/uL Absolute Monos (auto) (0.0-1.3) x10^3/uL Absolute Nucleated RBC (0.00-0.01) x10^3u/L Lymphocytes % (24.0-44.0) % Monocytes % (0.0-12.0) % Eosinophils % (0.00-5.0) % Basophils % (0.0-0.4) % Absolute Granulocytes (1.4-6.9) x10^3/uL Basophils # (0-0.4) x10^3/uL pO2/FiO2 Ratio % VBG pH (7.32-7.42) VBG pCO2 at Pat Temp (42-55) mm/Hg VBG pO2 at Pat Temp (25-40) mm/Hg VBG HCO3 (22-28) meq/L VBG O2 Sat (Moe) (95-100) VBG Base Excess (-2.0-2.0) VBG Hemoglobin VBG Carboxyhemoglobin (0.0-6.9) % T HGB POC Potassium (3.5-5.1) Sodium (137-145) mmol/L Potassium (3.5-5.1) mmol/L Chloride (98-107) mmol/L Carbon Dioxide (22-30) mmol/L Anion Gap (5-15) MEQ/L BUN (7-17) mg/dL Creatinine (0.52-1.04) mg/dL Estimated GFR ML/MIN Glucose (74-106) mg/dL POC Glucometer 427 H (74 to 106) mg/dL Lactic Acid (0.4-2.0) Calcium (8.4-10.2) mg/dL Magnesium (1.6-2.3) mg/dL Total Bilirubin (0.2-1.3) mg/dL AST (14-36) U/L ALT (0-35) U/L Alkaline Phosphatase (38-126) U/L Troponin I (0.000-0.034) ng/mL Serum Total Protein (6.3-8.2) g/dL Albumin (3.5-5.0) g/dL Prealbumin 14.92 L (17.6-36.0) mg/dL Procalcitonin (0.030-0.080) ng/mL Urine Color Yellow (Yellow) Urine Appearance Clear (Clear) Urine pH 5.5 (4.6-8.0) Ur Specific Fords 1.025 (1.005-1.030) Urine Protein 30 (Negative) Urine Glucose (UA) >=1000 A (Negative) mg/dL Urine Ketones 40 A (Negative) Urine Blood Negative (Negative) Urine Nitrite Negative (Negative) Urine Bilirubin Negative (Negative) Urine Urobilinogen 1.0 A (0.2) mg/dL Ur Leukocyte Esterase Small A (Negative) U Hyaline Cast (Auto) 3-5 A (0-2) /LPF Urine Microscopic RBC 3-5 (0-5) /HPF Urine Microscopic WBC 11-20 A (0-5) /HPF Ur Epithelial Cells Few (None Seen) /HPF Urine Bacteria None Seen (None Seen) /HPF Urine Culture Reflexed YES (NO) Influenza Type A Ag (NEGATIVE) Influenza Type B Ag (NEGATIVE) RSV (PCR) (NEGATIVE) SARS-CoV-2 (PCR) (NEGATIVE) Group A Strep Antibody (NEGATIVE) 11/28/22 11/28/22 11/28/22 Range/Units 13:14 14:15 14:56 WBC (4.0-10.5) x10^3/uL RBC (4.1-5.4) x10^6/uL Hgb (12.0-16.0) g/dL Hct (35-47) % MCV (78-100) fL MCH (26-32) pg MCHC (32-36) g/dL RDW (11.5-14.0) % Plt Count (150-450) x10^3/uL MPV (7.5-11.0) fL Gran % (36.0-66.0) % Immature Gran % (Auto) (0.00-0.4) % Nucleat RBC Rel Count (0.00-0.1) % Eos # (Auto) (0-0.5) x10^3/uL Immature Gran # (Auto) (0.00-0.03) x10^3u/L Absolute Lymphs (auto) (1.0-4.6) x10^3/uL Absolute Monos (auto) (0.0-1.3) x10^3/uL Absolute Nucleated RBC (0.00-0.01) x10^3u/L Lymphocytes % (24.0-44.0) % Monocytes % (0.0-12.0) % Eosinophils % (0.00-5.0) % Basophils % (0.0-0.4) % Absolute Granulocytes (1.4-6.9) x10^3/uL Basophils # (0-0.4) x10^3/uL pO2/FiO2 Ratio % VBG pH (7.32-7.42) VBG pCO2 at Pat Temp (42-55) mm/Hg VBG pO2 at Pat Temp (25-40) mm/Hg VBG HCO3 (22-28) meq/L VBG O2 Sat (Moe) (95-100) VBG Base Excess (-2.0-2.0) VBG Hemoglobin VBG Carboxyhemoglobin (0.0-6.9) % T HGB POC Potassium (3.5-5.1) Sodium (137-145) mmol/L Potassium (3.5-5.1) mmol/L Chloride (98-107) mmol/L Carbon Dioxide (22-30) mmol/L Anion Gap (5-15) MEQ/L BUN (7-17) mg/dL Creatinine (0.52-1.04) mg/dL Estimated GFR ML/MIN Glucose (74-106) mg/dL POC Glucometer 486 H 411 H 339 H (74 to 106) mg/dL Lactic Acid (0.4-2.0) Calcium (8.4-10.2) mg/dL Magnesium (1.6-2.3) mg/dL Total Bilirubin (0.2-1.3) mg/dL AST (14-36) U/L ALT (0-35) U/L Alkaline Phosphatase (38-126) U/L Troponin I (0.000-0.034) ng/mL Serum Total Protein (6.3-8.2) g/dL Albumin (3.5-5.0) g/dL Prealbumin (17.6-36.0) mg/dL Procalcitonin (0.030-0.080) ng/mL Urine Color (Yellow) Urine Appearance (Clear) Urine pH (4.6-8.0) Ur Specific Fords (1.005-1.030) Urine Protein (Negative) Urine Glucose (UA) (Negative) mg/dL Urine Ketones (Negative) Urine Blood (Negative) Urine Nitrite (Negative) Urine Bilirubin (Negative) Urine Urobilinogen (0.2) mg/dL Ur Leukocyte Esterase (Negative) U Hyaline Cast (Auto) (0-2) /LPF Urine Microscopic RBC (0-5) /HPF Urine Microscopic WBC (0-5) /HPF Ur Epithelial Cells (None Seen) /HPF Urine Bacteria (None Seen) /HPF Urine Culture Reflexed (NO) Influenza Type A Ag (NEGATIVE) Influenza Type B Ag (NEGATIVE) RSV (PCR) (NEGATIVE) SARS-CoV-2 (PCR) (NEGATIVE) Group A Strep Antibody (NEGATIVE) 11/28/22 11/28/22 11/28/22 Range/Units 14:58 16:24 17:15 WBC (4.0-10.5) x10^3/uL RBC (4.1-5.4) x10^6/uL Hgb (12.0-16.0) g/dL Hct (35-47) % MCV (78-100) fL MCH (26-32) pg MCHC (32-36) g/dL RDW (11.5-14.0) % Plt Count (150-450) x10^3/uL MPV (7.5-11.0) fL Gran % (36.0-66.0) % Immature Gran % (Auto) (0.00-0.4) % Nucleat RBC Rel Count (0.00-0.1) % Eos # (Auto) (0-0.5) x10^3/uL Immature Gran # (Auto) (0.00-0.03) x10^3u/L Absolute Lymphs (auto) (1.0-4.6) x10^3/uL Absolute Monos (auto) (0.0-1.3) x10^3/uL Absolute Nucleated RBC (0.00-0.01) x10^3u/L Lymphocytes % (24.0-44.0) % Monocytes % (0.0-12.0) % Eosinophils % (0.00-5.0) % Basophils % (0.0-0.4) % Absolute Granulocytes (1.4-6.9) x10^3/uL Basophils # (0-0.4) x10^3/uL pO2/FiO2 Ratio % VBG pH (7.32-7.42) VBG pCO2 at Pat Temp (42-55) mm/Hg VBG pO2 at Pat Temp (25-40) mm/Hg VBG HCO3 (22-28) meq/L VBG O2 Sat (Moe) (95-100) VBG Base Excess (-2.0-2.0) VBG Hemoglobin VBG Carboxyhemoglobin (0.0-6.9) % T HGB POC Potassium (3.5-5.1) Sodium (137-145) mmol/L Potassium (3.5-5.1) mmol/L Chloride (98-107) mmol/L Carbon Dioxide (22-30) mmol/L Anion Gap (5-15) MEQ/L BUN (7-17) mg/dL Creatinine (0.52-1.04) mg/dL Estimated GFR ML/MIN Glucose (74-106) mg/dL POC Glucometer 222 H 157 H (74 to 106) mg/dL Lactic Acid (0.4-2.0) Calcium (8.4-10.2) mg/dL Magnesium (1.6-2.3) mg/dL Total Bilirubin (0.2-1.3) mg/dL AST (14-36) U/L ALT (0-35) U/L Alkaline Phosphatase (38-126) U/L Troponin I 0.012 (0.000-0.034) ng/mL Serum Total Protein (6.3-8.2) g/dL Albumin (3.5-5.0) g/dL Prealbumin (17.6-36.0) mg/dL Procalcitonin (0.030-0.080) ng/mL Urine Color (Yellow) Urine Appearance (Clear) Urine pH (4.6-8.0) Ur Specific Fords (1.005-1.030) Urine Protein (Negative) Urine Glucose (UA) (Negative) mg/dL Urine Ketones (Negative) Urine Blood (Negative) Urine Nitrite (Negative) Urine Bilirubin (Negative) Urine Urobilinogen (0.2) mg/dL Ur Leukocyte Esterase (Negative) U Hyaline Cast (Auto) (0-2) /LPF Urine Microscopic RBC (0-5) /HPF Urine Microscopic WBC (0-5) /HPF Ur Epithelial Cells (None Seen) /HPF Urine Bacteria (None Seen) /HPF Urine Culture Reflexed (NO) Influenza Type A Ag (NEGATIVE) Influenza Type B Ag (NEGATIVE) RSV (PCR) (NEGATIVE) SARS-CoV-2 (PCR) (NEGATIVE) Group A Strep Antibody (NEGATIVE) 11/28/22 11/28/22 11/28/22 Range/Units 18:04 18:58 20:04 WBC (4.0-10.5) x10^3/uL RBC (4.1-5.4) x10^6/uL Hgb (12.0-16.0) g/dL Hct (35-47) % MCV (78-100) fL MCH (26-32) pg MCHC (32-36) g/dL RDW (11.5-14.0) % Plt Count (150-450) x10^3/uL MPV (7.5-11.0) fL Gran % (36.0-66.0) % Immature Gran % (Auto) (0.00-0.4) % Nucleat RBC Rel Count (0.00-0.1) % Eos # (Auto) (0-0.5) x10^3/uL Immature Gran # (Auto) (0.00-0.03) x10^3u/L Absolute Lymphs (auto) (1.0-4.6) x10^3/uL Absolute Monos (auto) (0.0-1.3) x10^3/uL Absolute Nucleated RBC (0.00-0.01) x10^3u/L Lymphocytes % (24.0-44.0) % Monocytes % (0.0-12.0) % Eosinophils % (0.00-5.0) % Basophils % (0.0-0.4) % Absolute Granulocytes (1.4-6.9) x10^3/uL Basophils # (0-0.4) x10^3/uL pO2/FiO2 Ratio % VBG pH (7.32-7.42) VBG pCO2 at Pat Temp (42-55) mm/Hg VBG pO2 at Pat Temp (25-40) mm/Hg VBG HCO3 (22-28) meq/L VBG O2 Sat (Moe) (95-100) VBG Base Excess (-2.0-2.0) VBG Hemoglobin VBG Carboxyhemoglobin (0.0-6.9) % T HGB POC Potassium (3.5-5.1) Sodium (137-145) mmol/L Potassium (3.5-5.1) mmol/L Chloride (98-107) mmol/L Carbon Dioxide (22-30) mmol/L Anion Gap (5-15) MEQ/L BUN (7-17) mg/dL Creatinine (0.52-1.04) mg/dL Estimated GFR ML/MIN Glucose (74-106) mg/dL POC Glucometer 164 H 172 H 135 H (74 to 106) mg/dL Lactic Acid (0.4-2.0) Calcium (8.4-10.2) mg/dL Magnesium (1.6-2.3) mg/dL Total Bilirubin (0.2-1.3) mg/dL AST (14-36) U/L ALT (0-35) U/L Alkaline Phosphatase (38-126) U/L Troponin I (0.000-0.034) ng/mL Serum Total Protein (6.3-8.2) g/dL Albumin (3.5-5.0) g/dL Prealbumin (17.6-36.0) mg/dL Procalcitonin (0.030-0.080) ng/mL Urine Color (Yellow) Urine Appearance (Clear) Urine pH (4.6-8.0) Ur Specific Fords (1.005-1.030) Urine Protein (Negative) Urine Glucose (UA) (Negative) mg/dL Urine Ketones (Negative) Urine Blood (Negative) Urine Nitrite (Negative) Urine Bilirubin (Negative) Urine Urobilinogen (0.2) mg/dL Ur Leukocyte Esterase (Negative) U Hyaline Cast (Auto) (0-2) /LPF Urine Microscopic RBC (0-5) /HPF Urine Microscopic WBC (0-5) /HPF Ur Epithelial Cells (None Seen) /HPF Urine Bacteria (None Seen) /HPF Urine Culture Reflexed (NO) Influenza Type A Ag (NEGATIVE) Influenza Type B Ag (NEGATIVE) RSV (PCR) (NEGATIVE) SARS-CoV-2 (PCR) (NEGATIVE) Group A Strep Antibody (NEGATIVE) 11/28/22 Range/Units 21:04 WBC (4.0-10.5) x10^3/uL RBC (4.1-5.4) x10^6/uL Hgb (12.0-16.0) g/dL Hct (35-47) % MCV (78-100) fL MCH (26-32) pg MCHC (32-36) g/dL RDW (11.5-14.0) % Plt Count (150-450) x10^3/uL MPV (7.5-11.0) fL Gran % (36.0-66.0) % Immature Gran % (Auto) (0.00-0.4) % Nucleat RBC Rel Count (0.00-0.1) % Eos # (Auto) (0-0.5) x10^3/uL Immature Gran # (Auto) (0.00-0.03) x10^3u/L Absolute Lymphs (auto) (1.0-4.6) x10^3/uL Absolute Monos (auto) (0.0-1.3) x10^3/uL Absolute Nucleated RBC (0.00-0.01) x10^3u/L Lymphocytes % (24.0-44.0) % Monocytes % (0.0-12.0) % Eosinophils % (0.00-5.0) % Basophils % (0.0-0.4) % Absolute Granulocytes (1.4-6.9) x10^3/uL Basophils # (0-0.4) x10^3/uL pO2/FiO2 Ratio % VBG pH (7.32-7.42) VBG pCO2 at Pat Temp (42-55) mm/Hg VBG pO2 at Pat Temp (25-40) mm/Hg VBG HCO3 (22-28) meq/L VBG O2 Sat (Moe) (95-100) VBG Base Excess (-2.0-2.0) VBG Hemoglobin VBG Carboxyhemoglobin (0.0-6.9) % T HGB POC Potassium (3.5-5.1) Sodium (137-145) mmol/L Potassium (3.5-5.1) mmol/L Chloride (98-107) mmol/L Carbon Dioxide (22-30) mmol/L Anion Gap (5-15) MEQ/L BUN (7-17) mg/dL Creatinine (0.52-1.04) mg/dL Estimated GFR ML/MIN Glucose (74-106) mg/dL POC Glucometer 112 H (74 to 106) mg/dL Lactic Acid (0.4-2.0) Calcium (8.4-10.2) mg/dL Magnesium (1.6-2.3) mg/dL Total Bilirubin (0.2-1.3) mg/dL AST (14-36) U/L ALT (0-35) U/L Alkaline Phosphatase (38-126) U/L Troponin I (0.000-0.034) ng/mL Serum Total Protein (6.3-8.2) g/dL Albumin (3.5-5.0) g/dL Prealbumin (17.6-36.0) mg/dL Procalcitonin (0.030-0.080) ng/mL Urine Color (Yellow) Urine Appearance (Clear) Urine pH (4.6-8.0) Ur Specific Fords (1.005-1.030) Urine Protein (Negative) Urine Glucose (UA) (Negative) mg/dL Urine Ketones (Negative) Urine Blood (Negative) Urine Nitrite (Negative) Urine Bilirubin (Negative) Urine Urobilinogen (0.2) mg/dL Ur Leukocyte Esterase (Negative) U Hyaline Cast (Auto) (0-2) /LPF Urine Microscopic RBC (0-5) /HPF Urine Microscopic WBC (0-5) /HPF Ur Epithelial Cells (None Seen) /HPF Urine Bacteria (None Seen) /HPF Urine Culture Reflexed (NO) Influenza Type A Ag (NEGATIVE) Influenza Type B Ag (NEGATIVE) RSV (PCR) (NEGATIVE) SARS-CoV-2 (PCR) (NEGATIVE) Group A Strep Antibody (NEGATIVE) Accuchecks Date 11/28/22 Date 11/28/22 Date 11/28/22 Time 21:20 Time 20:09 Time 11:27 - Radiology Impressions Radiology Exams & Impressions: Radiology Procedures Category Date Time Status CHEST 1 VIEW (PORTABLE) Stat Exams 11/28/22 06:49 Completed HEAD WITHOUT CONTRAST [CT] Stat Exams 11/28/22 06:40 Completed Chest x-ray stable chronic moderate left pneumothorax with prior lobectomy CT head atrophy and degenerative microischemia within normal limits for age. No acute intracranial abnormalities. Assessment/Plan (1) DKA (diabetic ketoacidosis) Current Visit: Yes Status: Acute Assessment & Plan: 62-year-old with a history of type 2 diabetes, and lung cancer, here with mild DKA and possible acute cystitis. ## Type 2 diabetes with DKA patient hyperglycemic on arrival, triggered either by poor compliance with monitoring secondary to her mental status or perhaps worsened by an acute cystitis (see below). Note, venous pH is normal, and anion gap only 18 on arrival, but patient had urine ketones. Initially placed on insulin drip when blood sugar was 400, but now down to the 150s. Of note, ordered repeat BMP and urine to ensure gap had closed and ketonuria had cleared to ensure safety of coming off insulin drip. However, patient refused further labs. However, her blood sugar has consistently stayed in the low 100s. Convert to Lantus 10 units QHS Moderate dose sliding scale insulin ## Suspected acute cystitis patient with mild pyuria on exam, and history of prior encephalopathy in the setting of acute cystitis. However, patient denies dysuria. Continue Rocephin 1 g IV q.24 hours Follow-up urine culture results ## Toxic metabolic encephalopathy appears to be resolved now, either due to IV fluids, treatment of her DKA, or treatment however her acute UTI. ## Lung cancer with persistent nausea and poor appetite from her chemotherapy. Continue home PRN Compazine and Phenergan CODE STATUS: Full code Diet: Diabetic Prophylaxis: Eliquis unclear why patient is on this at home, will quire further with patient Code(s): E11.10 - TYPE 2 DIABETES MELLITUS WITH KETOACIDOSIS WITHOUT COMA Telemedicine Encounter - Telemedicine Encounter Telemedicine Encounter: The entirety of this encounter was performed via Telemedicine"
[2022-11-28] MEDS ORDERED: Lantus Insulin SQ SCH (22:00)
[2022-11-28] MEDS ORDERED: PULMICORT 0.5 MG/2 ML RESPULES IH SCH (22:00)
[2022-11-29 04:11] VITALS: TEMP 97.1
[2022-11-29 05:48] LABS: Absolute Neutrophil Ct (ANC) 6.37 x10^3/uL (1.4-6.9); BASOPHIL % 0.8 % (0.0-0.4); Basophil (Absolute #) 0.08 x10^3/uL (0-0.4); Eosinophil % 3.5 % (0.00-5.0); Eosinophil (Absolute #) 0.36 x10^3/uL (0-0.5); Hemoglobin 9.8 g/dL (12.0-16.0); IMMATURE GRAN # 0.04 x10^3u/L (0.00-0.03); IMMATURE GRAN % 0.4 % (0.00-0.4); Lymphocyte (Absolute #) 2.89 x10^3/uL (1.0-4.6); Mean Cell Volume 102.3 fL (78-100); Mean Corpuscular Hemoglobin 32.3 pg (26-32); Mean Corpuscular Hgb Concent. 31.6 g/dL (32-36); Mean Platelet Volume 9.2 fL (7.5-11.0); Monocyte (Absolute #) 0.58 x10^3/uL (0.0-1.3); Monocytes % 5.6 % (0.0-12.0); Neutrophil % 61.7 % (36.0-66.0); Platelet Count 322 x10^3/uL (150-450); Red Blood Count 3.03 x10^6/uL (4.1-5.4); Red Cell Distribution Width 15.7 % (11.5-14.0); White Blood Count 10.3 x10^3/uL (4.0-10.5)
[2022-11-29 06:45] LABS: ALBUMIN 2.8 g/dL (3.5-5.0); ALKALINE PHOSPHATASE 141 U/L (38-126); ANION GAP 8.3 MEQ/L (5-15); BLOOD UREA NITROGEN 20 mg/dL (7-17); CHLORIDE 107 mmol/L (98-107); Calcium 8.4 mg/dL (8.4-10.2); Carbon Dioxide 27 mmol/L (22-30); Creatinine 1 0.69 mg/dL (0.52-1.04); EST GLOMERULAR FILTRATION RATE > 60.0 ML/MIN; Glucose 86 mg/dL (74-106); Potassium 3.8 mmol/L (3.5-5.1); SGOT/AST 17 U/L (14-36); SGPT/ALT 12 U/L (0-35); SODIUM 139 mmol/L (137-145); Total Protein 5.6 g/dL (6.3-8.2)
[2022-11-29] MEDS ORDERED: MEDICATION INTERVENTION MC SCH (07:00)
[2022-11-29 07:55] VITALS: BP 126/71; RESP 23; O2SAT 96
[2022-11-29 09:32] VITALS: PULSE 91
[2022-11-29] MEDS ORDERED: ELIQUIS 2.5 MG TABLET PO SCH (10:00)
[2022-11-29] MEDS ORDERED: NON-FORMULARY ITEM (Budesonide/Glycopyr/Formoterol [Breztri Aerosphere Inhaler] 10.7 GM Hf IH SCH (10:00)
[2022-11-29] MEDS ORDERED: Lopressor 50 MG PO SCH (10:00)
[2022-11-29] MEDS ORDERED: NON-FORMULARY ITEM (Apixaban [Eliquis] 5 MG Tablet) PO SCH (10:00)
[2022-11-29] MEDS ORDERED: ROCEPHIN 1 Gm-D5w 50 ml Bag** 1 G/50 ML IVPB IV SCH (10:00)
[2022-11-29] MEDS: XANAX 1 MG PO SCH (10:35)
[2022-11-29] MEDS: ULTRAM 50 MG PO SCH (10:35)
[2022-11-29] MEDS: NEURONTIN PO SCH (10:35)
--- NOTE | 2022-11-29 11:30 | PCM.DS ---
Discharge Summary Date of Admission: 11/28/22 13:20 Date of Discharge: 11/29/2022 Admitting Physician: SUZANNE KHAN MD Primary Care Provider: JUANA,LYUDMILA Allergies Allergies orphenadrine citrate [From Norflex] Allergy (Intermediate, Verified 11/28/22 06:40) severe vomiting adhesive tape Allergy (Verified 11/28/22 06:40) levofloxacin [From Levaquin] Adverse Reaction (Mild, Verified 11/28/22 06:40) Nausea and Vomiting Hospital Summary - Hospital Course Hospital Course: 62-year-old woman with a history of type 2 diabetes, lung cancer status post left lower lobectomy and recent chemotherapy, and chronic hip pain from osteoarthritis, who presented with acute confusion and severe hyperglycemia. She was found to have acute cystitis with borderline DKA. She was admitted briefly on an insulin drip, but was transition to her home subcutaneous insulin regimen. Urine cultures were growing gram-negative rods at time of discharge. Patient was started on Rocephin, and by the next day had significant improvement in her mental status, back to her baseline. She was able to eat more, and overall felt better and ready to go home. She has a remote history of ESBL E. coli, but she improved quickly on Rocephin. She will go home on a 5-day course of cefdinir. Greater than 30 minutes was spent arranging discharge. - Vitals & Intake/Output Vital Signs: Vital Signs Temperature 97.1 F 11/29/22 07:53 Pulse Rate 91 H 11/29/22 08:00 Respiratory Rate 23 11/29/22 07:53 Blood Pressure 126/71 11/29/22 07:53 O2 Sat by Pulse Oximetry 96 11/29/22 07:53 Intake & Output: Intake & Output 11/26/22 11/27/22 11/28/22 11/29/22 11:59 11:59 11:59 11:59 Intake Total 480 Balance 480 Weight 51.5 kg 48.3 kg - Lab Result Diagrams: 11/29/22 05:29 11/29/22 05:29 Lab Results-Last 24 Hrs: Lab Results-Last 24 Hours 11/28/22 11/28/22 11/28/22 Range/Units 11:00 11:24 13:14 WBC (4.0-10.5) x10^3/uL RBC (4.1-5.4) x10^6/uL Hgb (12.0-16.0) g/dL Hct (35-47) % MCV (78-100) fL MCH (26-32) pg MCHC (32-36) g/dL RDW (11.5-14.0) % Plt Count (150-450) x10^3/uL MPV (7.5-11.0) fL Gran % (36.0-66.0) % Immature Gran % (Auto) (0.00-0.4) % Nucleat RBC Rel Count (0.00-0.1) % Eos # (Auto) (0-0.5) x10^3/uL Immature Gran # (Auto) (0.00-0.03) x10^3u/L Absolute Lymphs (auto) (1.0-4.6) x10^3/uL Absolute Monos (auto) (0.0-1.3) x10^3/uL Absolute Nucleated RBC (0.00-0.01) x10^3u/L Lymphocytes % (24.0-44.0) % Monocytes % (0.0-12.0) % Eosinophils % (0.00-5.0) % Basophils % (0.0-0.4) % Absolute Granulocytes (1.4-6.9) x10^3/uL Basophils # (0-0.4) x10^3/uL Sodium (137-145) mmol/L Potassium (3.5-5.1) mmol/L Chloride (98-107) mmol/L Carbon Dioxide (22-30) mmol/L Anion Gap (5-15) MEQ/L BUN (7-17) mg/dL Creatinine (0.52-1.04) mg/dL Estimated GFR ML/MIN Glucose (74-106) mg/dL POC Glucometer 427 H 486 H (74 to 106) mg/dL Calcium (8.4-10.2) mg/dL Total Bilirubin (0.2-1.3) mg/dL AST (14-36) U/L ALT (0-35) U/L Alkaline Phosphatase (38-126) U/L Troponin I (0.000-0.034) ng/mL Serum Total Protein (6.3-8.2) g/dL Albumin (3.5-5.0) g/dL Prealbumin 14.92 L (17.6-36.0) mg/dL 11/28/22 11/28/22 11/28/22 Range/Units 14:15 14:56 14:58 WBC (4.0-10.5) x10^3/uL RBC (4.1-5.4) x10^6/uL Hgb (12.0-16.0) g/dL Hct (35-47) % MCV (78-100) fL MCH (26-32) pg MCHC (32-36) g/dL RDW (11.5-14.0) % Plt Count (150-450) x10^3/uL MPV (7.5-11.0) fL Gran % (36.0-66.0) % Immature Gran % (Auto) (0.00-0.4) % Nucleat RBC Rel Count (0.00-0.1) % Eos # (Auto) (0-0.5) x10^3/uL Immature Gran # (Auto) (0.00-0.03) x10^3u/L Absolute Lymphs (auto) (1.0-4.6) x10^3/uL Absolute Monos (auto) (0.0-1.3) x10^3/uL Absolute Nucleated RBC (0.00-0.01) x10^3u/L Lymphocytes % (24.0-44.0) % Monocytes % (0.0-12.0) % Eosinophils % (0.00-5.0) % Basophils % (0.0-0.4) % Absolute Granulocytes (1.4-6.9) x10^3/uL Basophils # (0-0.4) x10^3/uL Sodium (137-145) mmol/L Potassium (3.5-5.1) mmol/L Chloride (98-107) mmol/L Carbon Dioxide (22-30) mmol/L Anion Gap (5-15) MEQ/L BUN (7-17) mg/dL Creatinine (0.52-1.04) mg/dL Estimated GFR ML/MIN Glucose (74-106) mg/dL POC Glucometer 411 H 339 H (74 to 106) mg/dL Calcium (8.4-10.2) mg/dL Total Bilirubin (0.2-1.3) mg/dL AST (14-36) U/L ALT (0-35) U/L Alkaline Phosphatase (38-126) U/L Troponin I 0.012 (0.000-0.034) ng/mL Serum Total Protein (6.3-8.2) g/dL Albumin (3.5-5.0) g/dL Prealbumin (17.6-36.0) mg/dL 11/28/22 11/28/22 11/28/22 Range/Units 16:24 17:15 18:04 WBC (4.0-10.5) x10^3/uL RBC (4.1-5.4) x10^6/uL Hgb (12.0-16.0) g/dL Hct (35-47) % MCV (78-100) fL MCH (26-32) pg MCHC (32-36) g/dL RDW (11.5-14.0) % Plt Count (150-450) x10^3/uL MPV (7.5-11.0) fL Gran % (36.0-66.0) % Immature Gran % (Auto) (0.00-0.4) % Nucleat RBC Rel Count (0.00-0.1) % Eos # (Auto) (0-0.5) x10^3/uL Immature Gran # (Auto) (0.00-0.03) x10^3u/L Absolute Lymphs (auto) (1.0-4.6) x10^3/uL Absolute Monos (auto) (0.0-1.3) x10^3/uL Absolute Nucleated RBC (0.00-0.01) x10^3u/L Lymphocytes % (24.0-44.0) % Monocytes % (0.0-12.0) % Eosinophils % (0.00-5.0) % Basophils % (0.0-0.4) % Absolute Granulocytes (1.4-6.9) x10^3/uL Basophils # (0-0.4) x10^3/uL Sodium (137-145) mmol/L Potassium (3.5-5.1) mmol/L Chloride (98-107) mmol/L Carbon Dioxide (22-30) mmol/L Anion Gap (5-15) MEQ/L BUN (7-17) mg/dL Creatinine (0.52-1.04) mg/dL Estimated GFR ML/MIN Glucose (74-106) mg/dL POC Glucometer 222 H 157 H 164 H (74 to 106) mg/dL Calcium (8.4-10.2) mg/dL Total Bilirubin (0.2-1.3) mg/dL AST (14-36) U/L ALT (0-35) U/L Alkaline Phosphatase (38-126) U/L Troponin I (0.000-0.034) ng/mL Serum Total Protein (6.3-8.2) g/dL Albumin (3.5-5.0) g/dL Prealbumin (17.6-36.0) mg/dL 11/28/22 11/28/22 11/28/22 Range/Units 18:58 20:04 21:04 WBC (4.0-10.5) x10^3/uL RBC (4.1-5.4) x10^6/uL Hgb (12.0-16.0) g/dL Hct (35-47) % MCV (78-100) fL MCH (26-32) pg MCHC (32-36) g/dL RDW (11.5-14.0) % Plt Count (150-450) x10^3/uL MPV (7.5-11.0) fL Gran % (36.0-66.0) % Immature Gran % (Auto) (0.00-0.4) % Nucleat RBC Rel Count (0.00-0.1) % Eos # (Auto) (0-0.5) x10^3/uL Immature Gran # (Auto) (0.00-0.03) x10^3u/L Absolute Lymphs (auto) (1.0-4.6) x10^3/uL Absolute Monos (auto) (0.0-1.3) x10^3/uL Absolute Nucleated RBC (0.00-0.01) x10^3u/L Lymphocytes % (24.0-44.0) % Monocytes % (0.0-12.0) % Eosinophils % (0.00-5.0) % Basophils % (0.0-0.4) % Absolute Granulocytes (1.4-6.9) x10^3/uL Basophils # (0-0.4) x10^3/uL Sodium (137-145) mmol/L Potassium (3.5-5.1) mmol/L Chloride (98-107) mmol/L Carbon Dioxide (22-30) mmol/L Anion Gap (5-15) MEQ/L BUN (7-17) mg/dL Creatinine (0.52-1.04) mg/dL Estimated GFR ML/MIN Glucose (74-106) mg/dL POC Glucometer 172 H 135 H 112 H (74 to 106) mg/dL Calcium (8.4-10.2) mg/dL Total Bilirubin (0.2-1.3) mg/dL AST (14-36) U/L ALT (0-35) U/L Alkaline Phosphatase (38-126) U/L Troponin I (0.000-0.034) ng/mL Serum Total Protein (6.3-8.2) g/dL Albumin (3.5-5.0) g/dL Prealbumin (17.6-36.0) mg/dL 11/28/22 11/29/22 11/29/22 Range/Units 23:01 01:05 03:02 WBC (4.0-10.5) x10^3/uL RBC (4.1-5.4) x10^6/uL Hgb (12.0-16.0) g/dL Hct (35-47) % MCV (78-100) fL MCH (26-32) pg MCHC (32-36) g/dL RDW (11.5-14.0) % Plt Count (150-450) x10^3/uL MPV (7.5-11.0) fL Gran % (36.0-66.0) % Immature Gran % (Auto) (0.00-0.4) % Nucleat RBC Rel Count (0.00-0.1) % Eos # (Auto) (0-0.5) x10^3/uL Immature Gran # (Auto) (0.00-0.03) x10^3u/L Absolute Lymphs (auto) (1.0-4.6) x10^3/uL Absolute Monos (auto) (0.0-1.3) x10^3/uL Absolute Nucleated RBC (0.00-0.01) x10^3u/L Lymphocytes % (24.0-44.0) % Monocytes % (0.0-12.0) % Eosinophils % (0.00-5.0) % Basophils % (0.0-0.4) % Absolute Granulocytes (1.4-6.9) x10^3/uL Basophils # (0-0.4) x10^3/uL Sodium (137-145) mmol/L Potassium (3.5-5.1) mmol/L Chloride (98-107) mmol/L Carbon Dioxide (22-30) mmol/L Anion Gap (5-15) MEQ/L BUN (7-17) mg/dL Creatinine (0.52-1.04) mg/dL Estimated GFR ML/MIN Glucose (74-106) mg/dL POC Glucometer 140 H 112 H 106 (74 to 106) mg/dL Calcium (8.4-10.2) mg/dL Total Bilirubin (0.2-1.3) mg/dL AST (14-36) U/L ALT (0-35) U/L Alkaline Phosphatase (38-126) U/L Troponin I (0.000-0.034) ng/mL Serum Total Protein (6.3-8.2) g/dL Albumin (3.5-5.0) g/dL Prealbumin (17.6-36.0) mg/dL 11/29/22 11/29/22 11/29/22 Range/Units 05:21 05:29 05:29 WBC 10.3 (4.0-10.5) x10^3/uL RBC 3.03 L (4.1-5.4) x10^6/uL Hgb 9.8 L (12.0-16.0) g/dL Hct 31.0 L (35-47) % MCV 102.3 H (78-100) fL MCH 32.3 H (26-32) pg MCHC 31.6 L (32-36) g/dL RDW 15.7 H (11.5-14.0) % Plt Count 322 (150-450) x10^3/uL MPV 9.2 (7.5-11.0) fL Gran % 61.7 (36.0-66.0) % Immature Gran % (Auto) 0.4 (0.00-0.4) % Nucleat RBC Rel Count 0.0 (0.00-0.1) % Eos # (Auto) 0.36 (0-0.5) x10^3/uL Immature Gran # (Auto) 0.04 H (0.00-0.03) x10^3u/L Absolute Lymphs (auto) 2.89 (1.0-4.6) x10^3/uL Absolute Monos (auto) 0.58 (0.0-1.3) x10^3/uL Absolute Nucleated RBC 0.00 (0.00-0.01) x10^3u/L Lymphocytes % 28.0 (24.0-44.0) % Monocytes % 5.6 (0.0-12.0) % Eosinophils % 3.5 (0.00-5.0) % Basophils % 0.8 (0.0-0.4) % Absolute Granulocytes 6.37 (1.4-6.9) x10^3/uL Basophils # 0.08 (0-0.4) x10^3/uL Sodium 139 (137-145) mmol/L Potassium 3.8 (3.5-5.1) mmol/L Chloride 107 (98-107) mmol/L Carbon Dioxide 27 (22-30) mmol/L Anion Gap 8.3 (5-15) MEQ/L BUN 20 H (7-17) mg/dL Creatinine 0.69 (0.52-1.04) mg/dL Estimated GFR > 60.0 ML/MIN Glucose 86 (74-106) mg/dL POC Glucometer 87 (74 to 106) mg/dL Calcium 8.4 (8.4-10.2) mg/dL Total Bilirubin 0.30 (0.2-1.3) mg/dL AST 17 (14-36) U/L ALT 12 (0-35) U/L Alkaline Phosphatase 141 H (38-126) U/L Troponin I (0.000-0.034) ng/mL Serum Total Protein 5.6 L (6.3-8.2) g/dL Albumin 2.8 L (3.5-5.0) g/dL Prealbumin (17.6-36.0) mg/dL 11/29/22 11/29/22 Range/Units 06:32 09:04 WBC (4.0-10.5) x10^3/uL RBC (4.1-5.4) x10^6/uL Hgb (12.0-16.0) g/dL Hct (35-47) % MCV (78-100) fL MCH (26-32) pg MCHC (32-36) g/dL RDW (11.5-14.0) % Plt Count (150-450) x10^3/uL MPV (7.5-11.0) fL Gran % (36.0-66.0) % Immature Gran % (Auto) (0.00-0.4) % Nucleat RBC Rel Count (0.00-0.1) % Eos # (Auto) (0-0.5) x10^3/uL Immature Gran # (Auto) (0.00-0.03) x10^3u/L Absolute Lymphs (auto) (1.0-4.6) x10^3/uL Absolute Monos (auto) (0.0-1.3) x10^3/uL Absolute Nucleated RBC (0.00-0.01) x10^3u/L Lymphocytes % (24.0-44.0) % Monocytes % (0.0-12.0) % Eosinophils % (0.00-5.0) % Basophils % (0.0-0.4) % Absolute Granulocytes (1.4-6.9) x10^3/uL Basophils # (0-0.4) x10^3/uL Sodium (137-145) mmol/L Potassium (3.5-5.1) mmol/L Chloride (98-107) mmol/L Carbon Dioxide (22-30) mmol/L Anion Gap (5-15) MEQ/L BUN (7-17) mg/dL Creatinine (0.52-1.04) mg/dL Estimated GFR ML/MIN Glucose (74-106) mg/dL POC Glucometer 172 H 337 H (74 to 106) mg/dL Calcium (8.4-10.2) mg/dL Total Bilirubin (0.2-1.3) mg/dL AST (14-36) U/L ALT (0-35) U/L Alkaline Phosphatase (38-126) U/L Troponin I (0.000-0.034) ng/mL Serum Total Protein (6.3-8.2) g/dL Albumin (3.5-5.0) g/dL Prealbumin (17.6-36.0) mg/dL Micro Results-Entire Visit: Microbiology 11/28/22 10:30 Urine Culture - Preliminary Urine, Void GRAM NEGATIVE ID AND SENSITIVITY PENDING Accuchecks Date 11/29/22 Date 11/29/22 Date 11/29/22 Date 11/29/22 Date 11/28/22 Date 11/28/22 Date 11/28/22 Date 11/28/22 Time 09:11 Time 05:32 Time 03:06 Time 01:07 Time 23:03 Time 21:20 Time 20:09 Time 11:27 - Radiology Exams Ordered Rad Exams-Entire Visit: Radiology Procedures Category Date Time Status CHEST 1 VIEW (PORTABLE) Stat Exams 11/28/22 06:49 Completed HEAD WITHOUT CONTRAST [CT] Stat Exams 11/28/22 06:40 Completed - Procedures and Test Procedures and Tests throughout Hospitalization: Therapy Orders & Screens 11/28/22 13:59 OT Screen per Nursing Assess ONCE Comment: Protocol Order Physician Instructions: Greater than 3 points order OT Admission Screening Reason For Exam: Triggered on Admission Diagnosis: uti Open Wound/Cellutlitis/Pressure Ulcers: No Acute Fx/ORIF/Change in wt bearing status: No Severe MUSCULOSKELETAL pain: Yes ADL Dysfunction: Yes Acute CVA w/Hemiparesis/Hemiplegia: No Decreased Functional Mobility/Strength: Yes Sprain/Strain: No Acute Post-op Mobility Dysfunction: No Total Points: 9 PT Screen per Nursing Assess ONCE Comment: Protocol Order Physician Instructions: Greater than 3 points order PT Admission Screenin Reason For Exam: Triggered on Admission Diagnosis: uti Open Wound/Cellutlitis/Pressure Ulcers: No Acute Fx/ORIF/Change in wt bearing status: No Severe MUSCULOSKELETAL pain: Yes ADL Dysfunction: Yes Acute CVA w/Hemiparesis/Hemiplegia: No Decreased Functional Mobility/Strength: Yes Sprain/Strain: No Acute Post-op Mobility Dysfunction: No Total Points: 9 Smoking Cessation Education ONCE Comment: Diagnosis: uti Smoking Status: Heavy tobacco smoker How long have you smoked: 50 years Have you smoked in the past 12 months: Yes Approximately how many cigarettes per day: 90 Do you dip or chew tobacco: No 11/29/22 07:10 Respiratory Therapy Assessment DAILY Comment: Diagnosis: Confusion Discharge Exam Comments: GENERAL: Sitting up in bed in no acute distress NEURO: Much more alert today, oriented x3. Brighter affect. CV: Regular rate and rhythm, no murmurs, no edema PULM: Clear to auscultation bilaterally, no work of breathing ABD: Soft, nontender, nondistended Final Diagnosis/Problem List - Final Discharge Diagnosis/Problem (1) DKA (diabetic ketoacidosis) Current Visit: Yes Status: Acute Code(s): E11.10 - TYPE 2 DIABETES MELLITUS WITH KETOACIDOSIS WITHOUT COMA (2) Acute cystitis Current Visit: Yes Status: Acute Code(s): N30.00 - ACUTE CYSTITIS WITHOUT HEMATURIA Telemedicine Encounter - Telemedicine Encounter Telemedicine Encounter: The entirety of this encounter was performed via Telemedicine" - Discharge Discharge Date: 11/29/22 Disposition: Home, Self-Care Condition: Good Prescriptions: New RX: Cefdinir 300 mg PO BID #8 cap Continue RX: Cyclobenzaprine HCl 10 mg [Cyclobenzaprine 10 MG] 10 mg PO QID PRN PRN Reason: Pain RX: Promethazine HCl 25 mg [Phenergan 25 mg] 25 mg PO QID PRN PRN Reason: Nausea RX: ALPRAZolam 1 MG [Xanax 1 mg] 1 mg PO BID RX: Prochlorperazine Maleate [Compazine] 10 mg PO BIDPRN PRN PRN Reason: Nausea RX: Insulin Aspart [NovoLOG Insulin] 4 unit SQ AC RX: Gabapentin [Neurontin ] 300 mg PO TID #60 cap RX: Tramadol HCl 50 mg [Ultram 50 mg] 50 mg PO TID #30 tablet RX: Aripiprazole 10 mg [Abilify 10 MG] 10 mg PO DAILY PRN PRN PRN Reason: Agitation RX: Metoprolol Tartrate 50 mg [Lopressor 50 MG] 50 mg PO DAILY RX: Hydrocodone/Acetaminophen [Hydrocodone-Acetamin 5-325 mg] 1 tab PO BID PRN RX: Apixaban [Eliquis] 5 mg PO BID RX: Insulin Glargine,Hum.rec.anlog [Ward Laughlin] 14 unit SQ QHS Follow up with: LYUDMILA ARIAS MD [Primary Care Provider] - 12/06/22 10:30 am ([facility])
== END 2022-11-29 12:08 | disposition home or self-care (01) ==
LOC: ED 06:07 → ICU 13:20
PROVIDERS: ADMIT Internal Medicine; ATTEND Internal Medicine
DX: E11.10 Type 2 diabetes mellitus with ketoacidosis without coma (principal); N30.00 Acute cystitis without hematuria; M19.90 Unspecified osteoarthritis, unspecified site; I10 Essential (primary) hypertension; E78.5 Hyperlipidemia, unspecified; I25.10 Atherosclerotic heart disease of native coronary artery without angina pectoris; Z20.828 Contact with and (suspected) exposure to other viral communicable diseases; Z72.0 Tobacco use; Z79.899 Other long term (current) drug therapy; Z85.118 Personal history of other malignant neoplasm of bronchus and lung
CPT/HCPCS: 0241U; 36000; 36415; 70450; 71045; 80053; 81001; 82805; 82947; 83605; 83735; 84134; 84145; 84484; 85025; 87040; 87077; 87086; 87186; 87651; 93005; 93041; 93268; 96360; 96361; 96365; 96367; 99285; 99291; J0696; J1650; J1815; J3480; Q3014; A9270-GY; G0378; J3475

== ENCOUNTER 2023-01-01 16:31 | Emergency (ER) | payer BC ==
--- NOTE | 2023-01-01 17:28 | ERPHSYRPT ---
- History of Present Illness Time Seen by Provider: 01/01/23 17:28 Source: patient Exam Limitations: no limitations Physician History: This is a cachectic appearing 62-year-old white female patient of Dr. Arias who has a history of lung cancer and she is status post left lower lobectomy in the past. In the last 2 weeks she was started on immunotherapy and chemothera py. Initially she was feeling pretty well but in the last week or so she is had failure to thrive, increased weakness and significantly decreased appetite to both solids and liquids. She was tested for urinary tract infection 2 days ago out of her primary care physician's office and this was negative. Patient is diabetic she has a history of coronary disease (cardiac stents), COPD, hyperlipidemia, hypertension, gastroesophageal reflux disease and renal disease. Patient has a history of heavy tobacco use. Timing/Duration: week(s) (Approximately 1 week), worse Severity: moderate Modifying Factors: Improves With: nothing Associated Symptoms: loss of appetite, malaise, weakness, No shortness of breath, No chest pain Allergies/Adverse Reactions: orphenadrine citrate [From Norflex] Allergy (Intermediate, Verified 01/01/23 17:39) severe vomiting adhesive tape Allergy (Verified 01/01/23 17:39) levofloxacin [From Levaquin] Adverse Reaction (Mild, Verified 01/01/23 17:39) Nausea and Vomiting Home Medications: Cyclobenzaprine HCl 10 mg [Cyclobenzaprine 10 MG] 10 mg PO QID PRN 02/13/19 [History] Promethazine HCl 25 mg [Phenergan 25 mg] 25 mg PO QID PRN 07/17/21 [History] ALPRAZolam 1 MG [Xanax 1 mg] 1 mg PO BID 07/18/22 [History] Prochlorperazine Maleate [Compazine] 10 mg PO BIDPRN PRN 08/30/22 [History] Insulin Aspart [NovoLOG Insulin] 4 unit SQ AC 10/08/22 [History] Apixaban [Eliquis] 5 mg PO BID 11/28/22 [History] Aripiprazole 10 mg [Abilify 10 MG] 10 mg PO DAILY PRN PRN 11/28/22 [History] Hydrocodone/Acetaminophen [Hydrocodone-Acetamin 5-325 mg] 1 tab PO BID PRN 11/28/22 [History] Insulin Glargine,Hum.rec.anlog [Ward Laughlin] 14 unit SQ QHS 11/28/22 [History] Metoprolol Tartrate 50 mg [Lopressor 50 MG] 50 mg PO DAILY 11/28/22 [History] Gabapentin [Neurontin ] 300 mg PO DAILY 01/01/23 [History] Mirtazapine 30 mg [Remeron 30 mg] 30 mg PO HS 01/01/23 [History] Hx Tetanus, Diphtheria Vaccination/Date Given: No Hx Influenza Vaccination/Date Given: Yes Hx Pneumococcal Vaccination/Date Given: Yes Travel Risk - International Travel Have you traveled outside of the country in past 3 weeks: No - Coronavirus Screening Are you exhibiting any of the following symptoms?: No Close contact with a COVID-19 positive Pt in past 14-21 Days: No - Vaccine Status Have you recieved a Covid-19 vaccination: Yes [employer]: Moderna - Vaccination Dates Date of 2cond Vaccination (if applicable): 2020 - Review of Systems Constitutional: Weakness, Weight Loss Eyes: No Symptoms Ears, Nose, & Throat: No Symptoms Respiratory: No Symptoms Cardiac: No Symptoms Abdominal/Gastrointestinal: Appetite Changes, No Abdominal Pain, No Nausea, No Vomiting, No Diarrhea Genitourinary Symptoms: No Symptoms Musculoskeletal: No Symptoms Skin: No Symptoms Neurological: No Symptoms Psychological: No Symptoms Endocrine: No Symptoms Hematologic/Lymphatic: No Symptoms Immunological/Allergic: No Symptoms All Other Systems: Reviewed and Negative - Past Medical History Pertinent Past Medical History: Yes Neurological History: No Pertinent History ENT History: Cataracts Cardiac History: Coronary Artery Disease, High Cholesterol, Hypertension Respiratory History: COPD, Lung Cancer (Status post left lower lobectomy, chemotherapy) Endocrine Medical History: Diabetes Type II Musculoskeletal History: Fractures GI Medical History: GERD History: Renal Disease Psycho-Social History: Anxiety, Depression Female Reproductive Disorders: No Pertinent History Other Medical History: Previous left leg fx many years ago,rt wrist fx with cast. left lower lobe lung cancer. chemo - Past Surgical History Past Surgical History: Yes Neuro Surgical History: No Pertinent History Cardiac: Cardiac Catheterization, Cardiac Stent Respiratory: Lobectomy Gastrointestinal: Cholecystectomy Genitourinary: No Pertinent History Musculoskeletal: Other Female Surgical History: Tubal Ligation Other Surgical History: BUNONECTOMY. BACK SURGERY X2, right upper chest port placement. LL lung lobectomy - Social History Smoking Status: Heavy tobacco smoker How long have you smoked: 50 years Exposure to second hand smoke: No Alcohol Use: None Drug Use: none Patient Lives Alone: No Significant Family History: heart disease, diabetes, hypertension - Nursing Vital Signs Nursing Vital Signs: Initial Vital Signs Temperature 97.5 F 01/01/23 17:23 Pulse Rate 104 H 01/01/23 17:23 Blood Pressure 88/54 01/01/23 17:23 O2 Sat by Pulse Oximetry 98 01/01/23 17:23 Pain Scale Pain Intensity 3 - Physical Exam General Appearance: no apparent distress, lethargy, cachetic Eye Exam: PERRL/EOMI Ears, Nose, Throat Exam: normal ENT inspection, moist mucous membranes Neck Exam: normal inspection, non-tender, supple, full range of motion Respiratory Exam: diminished breath sounds, No respiratory distress Cardiovascular Exam: regular rate/rhythm, normal heart sounds, normal peripheral pulses Gastrointestinal/Abdomen Exam: soft, normal bowel sounds, No tenderness Pelvic Exam: not done Rectal Exam: not done Back Exam: normal inspection, normal range of motion, No CVA tenderness, No v ertebral tenderness Extremity Exam: normal inspection, normal range of motion, pelvis stable Neurologic Exam: oriented x 3, cooperative, clock and watch hands dipper II-XII nml as tested, normal mood/affect, sensation nml Skin Exam: normal color, warm, dry Lymphatic Exam: No adenopathy SpO2 Interpretation: normal O2 Delivery: Room Air - Course Nursing assessment & vital signs reviewed: Yes Ordered Tests: Active Orders 24 hr Category Date Time Status IV Insertion STAT Care 01/01/23 18:08 Active CBC W DIFF Stat Lab 01/01/23 18:00 Completed CMP Stat Lab 01/01/23 18:00 Completed CULTURE,URINE Stat Lab 01/01/23 18:55 Received Lactic Acid Stat Lab 01/01/23 18:22 Completed Lactic Acid Stat Lab 01/01/23 20:27 Completed MAGNESIUM Stat Lab 01/01/23 18:00 Completed UA W/RFX UR CULTURE Stat Lab 01/01/23 18:55 Completed Medication Summary Generic Name Dose Route Start Last Admin Trade Name Freq PRN Reason Stop Dose Admin Sodium Chloride 1,000 mls @ 999 mls/hr 01/01/23 20:57 01/01/23 21:02 Sodium Chloride 0.9% 1000 Ml IV 01/01/23 21:57 999 mls/hr .Q1H1M STA Administration Discontinued Medications Generic Name Dose Route Start Last Admin Trade Name Petrona PRN Reason Stop Dose Admin Heparin Sodium (Beef Lung) 500 units 01/01/23 21:29 Heparin Lock Flush Pf 500 Units/5 Ml Syringe PORT FLUSH 01/01/23 21:30 PRN STA Sodium Chloride 1,000 mls @ 999 mls/hr 01/01/23 18:08 01/01/23 19:22 Sodium Chloride 0.9% 1000 Ml IV 01/01/23 19:08 Infused .Q1H1M STA Infusion Sodium Chloride Confirm 01/01/23 18:20 Sodium Chloride 0.9% 1000 Ml Administered 01/01/23 18:21 Dose 1,000 mls @ ud .ROUTE .STK-MED ONE Ceftriaxone Sodium/Dextrose 1 g in 50 mls @ 100 mls/hr 01/01/23 20:58 01/01/23 21:03 Rocephin 1 Gm-D5w 50 Ml Bag IV 01/01/23 21:27 100 ml/hr STAT STA 100 mls/hr Administration Sodium Chloride Confirm 01/01/23 20:59 Sodium Chloride 0.9% 1000 Ml Administered 01/01/23 21:00 Dose 1,000 mls @ ud .ROUTE .STK-MED ONE Ceftriaxone Sodium/Dextrose Confirm 01/01/23 20:59 Rocephin 1 Gm-D5w 50 Ml Bag Administered 01/01/23 21:00 Dose 1 g in 50 mls @ ud IV .STK-MED ONE Ondansetron HCl 4 mg 01/01/23 18:08 01/01/23 18:21 Ondansetron Hcl 4 Mg/2 Ml Vial IV 01/01/23 18:09 4 mg STAT ONE Administration Ondansetron HCl Confirm 01/01/23 18:20 Ondansetron Hcl 4 Mg/2 Ml Vial Administered 01/01/23 18:21 Dose 4 mg .ROUTE .STK-MED ONE Lab/Rad Data: Laboratory Result Diagrams 01/01/23 18:00 01/01/23 18:00 Laboratory Results 01/01/23 01/01/23 01/01/23 Range/Units 20:27 18:55 18:22 WBC (4.0-10.5) x10^3/uL RBC (4.1-5.4) x10^6/uL Hgb (12.0-16.0) g/dL Hct (35-47) % MCV (78-100) fL MCH (26-32) pg MCHC (32-36) g/dL RDW (11.5-14.0) % Plt Count (150-450) x10^3/uL MPV (7.5-11.0) fL Gran % (36.0-66.0) % Immature Gran % (Auto) (0.00-0.4) % Nucleat RBC Rel Count (0.00-0.1) % Eos # (Auto) (0-0.5) x10^3/uL Immature Gran # (Auto) (0.00-0.03) x10^3u/L Absolute Lymphs (auto) (1.0-4.6) x10^3/uL Absolute Monos (auto) (0.0-1.3) x10^3/uL Absolute Nucleated RBC (0.00-0.01) x10^3u/L Lymphocytes % (24.0-44.0) % Monocytes % (0.0-12.0) % Eosinophils % (0.00-5.0) % Basophils % (0.0-0.4) % Absolute Granulocytes (1.4-6.9) x10^3/uL Basophils # (0-0.4) x10^3/uL Sodium (137-145) mmol/L Potassium (3.5-5.1) mmol/L Chloride (98-107) mmol/L Carbon Dioxide (22-30) mmol/L Anion Gap (5-15) MEQ/L BUN (7-17) mg/dL Creatinine (0.52-1.04) mg/dL Estimated GFR ML/MIN Glucose (74-106) mg/dL Lactic Acid 0.7 4.3 H (0.4-2.0) Calcium (8.4-10.2) mg/dL Magnesium (1.6-2.3) mg/dL Total Bilirubin (0.2-1.3) mg/dL AST (14-36) U/L ALT (0-35) U/L Alkaline Phosphatase (38-126) U/L Serum Total Protein (6.3-8.2) g/dL Albumin (3.5-5.0) g/dL Urine Color Yellow (Yellow) Urine Appearance Cloudy A (Clear) Urine pH 5.5 (4.6-8.0) Ur Specific [place] 1.025 (1.005-1.030) Urine Protein Trace A (Negative) Urine Glucose (UA) >=1000 A (Negative) mg/dL Urine Ketones 15 A (Negative) Urine Blood NHT (Negative) Urine Nitrite Negative (Negative) Urine Bilirubin Negative (Negative) Urine Urobilinogen 0.2 (0.2) mg/dL Ur Leukocyte Esterase Small A (Negative) U Hyaline Cast (Auto) 11-20 (0-2) /LPF Urine Microscopic RBC 3-5 (0-5) /HPF Urine Microscopic WBC >100 A (0-5) /HPF Ur Epithelial Cells Rare (None Seen) /HPF Urine Bacteria Many A (None Seen) /HPF Urine Culture Reflexed YES (NO) 01/01/23 01/01/23 Range/Units 18:00 18:00 WBC 4.3 (4.0-10.5) x10^3/uL RBC 3.76 L (4.1-5.4) x10^6/uL Hgb 11.7 L (12.0-16.0) g/dL Hct 36.6 (35-47) % MCV 97.3 (78-100) fL MCH 31.1 (26-32) pg MCHC 32.0 (32-36) g/dL RDW 15.5 H (11.5-14.0) % Plt Count 258 (150-450) x10^3/uL MPV 9.7 (7.5-11.0) fL Gran % 53.9 (36.0-66.0) % Immature Gran % (Auto) 0.2 (0.00-0.4) % Nucleat RBC Rel Count 0.0 (0.00-0.1) % Eos # (Auto) 0.14 (0-0.5) x10^3/uL Immature Gran # (Auto) 0.01 (0.00-0.03) x10^3u/L Absolute Lymphs (auto) 1.31 (1.0-4.6) x10^3/uL Absolute Monos (auto) 0.47 (0.0-1.3) x10^3/uL Absolute Nucleated RBC 0.00 (0.00-0.01) x10^3u/L Lymphocytes % 30.5 (24.0-44.0) % Monocytes % 10.9 (0.0-12.0) % Eosinophils % 3.3 (0.00-5.0) % Basophils % 1.2 (0.0-0.4) % Absolute Granulocytes 2.32 (1.4-6.9) x10^3/uL Basophils # 0.05 (0-0.4) x10^3/uL Sodium 136 L (137-145) mmol/L Potassium 3.8 (3.5-5.1) mmol/L Chloride 99 (98-107) mmol/L Carbon Dioxide 29 (22-30) mmol/L Anion Gap 11.7 (5-15) MEQ/L BUN 23 H (7-17) mg/dL Creatinine 1.23 H (0.52-1.04) mg/dL Estimated GFR 47.2 ML/MIN Glucose 181 H (74-106) mg/dL Lactic Acid (0.4-2.0) Calcium 8.9 (8.4-10.2) mg/dL Magnesium 1.9 (1.6-2.3) mg/dL Total Bilirubin 0.20 (0.2-1.3) mg/dL AST 29 (14-36) U/L ALT 27 (0-35) U/L Alkaline Phosphatase 302 H (38-126) U/L Serum Total Protein 6.2 L (6.3-8.2) g/dL Albumin 3.1 L (3.5-5.0) g/dL Urine Color (Yellow) Urine Appearance (Clear) Urine pH (4.6-8.0) Ur Specific [place] (1.005-1.030) Urine Protein (Negative) Urine Glucose (UA) (Negative) mg/dL Urine Ketones (Negative) Urine Blood (Negative) Urine Nitrite (Negative) Urine Bilirubin (Negative) Urine Urobilinogen (0.2) mg/dL Ur Leukocyte Esterase (Negative) U Hyaline Cast (Auto) (0-2) /LPF Urine Microscopic RBC (0-5) /HPF Urine Microscopic WBC (0-5) /HPF Ur Epithelial Cells (None Seen) /HPF Urine Bacteria (None Seen) /HPF Urine Culture Reflexed (NO) - Progress Progress: improved, re-examined Progress Note: 01/01/23 19:16 This patient's medical issue is 1 of moderate complexity. Level complexity in t he work-up performed based on review of the patient's past medical history, review the patient's medication list, review of the patient's drug allergy list, history of present illness and physical examination findings. This patient requires urinalysis primary to look at the degree of dehydration, CBC, CMP, magnesium level, will place an intravenous line and infuse normal saline solution into this patient. Patient does have a history of DKA in the past and we need to look for this as well. 01/01/23 21:34 I reexamined the patient. She is much more awake and alert and actually is now drinking fluids. She is feeling better. I reviewed the patient's lab study results and interpreted them as her having a urinary tract infection and some dehydration. However, she does not appear to clinically or based on labs to have DKA. I am treating her urinary tract infection with 1 g of intravenous Rocephin followed by outpatient cefdinir antibiotics for 1 week. She is encouraged to increase her oral intake of both liquids and solids. She is to follow-up with her primary care physician on 01/03/2023 to make a follow- up appointment next 3 to 5 days. Counseled pt/family regarding: lab results, diagnosis Medical Desision Making - Independent Historian Additional History obtained from: Spouse - Diagnostic Testing Diagnostic test were ordered, analyzed, and reviewed by me: Yes - Risk of complications The pt has a mod risk of morbidity or mortality based on: Need for prescription drug management - Departure Departure Disposition: Home Clinical Impression: Mild dehydration, Urinary tract infection Condition: Stable Critical Care Time: No Referrals: LYUDMILA ARIAS MD [Primary Care Provider] - Follow up/PCP as directed Additional Instructions: Drink plenty of clear liquids and then advance your diet as tolerated. Take your antibiotics and other medications as prescribed. Call your primary care provider on 01/03/2023 to make a follow-up appointment in the next 3 to 5 days. Prescriptions: Cefdinir 300 mg PO BID #14 cap
[2023-01-01] MEDS ORDERED: Sodium Chloride 0.9% 1000 ML 1,000 ML IV STA ×2 (18:08→20:57)
[2023-01-01] MEDS ORDERED: Zofran 4 MG/2 ML VIAL IV ONE (18:08)
[2023-01-01] MEDS ORDERED: Sodium Chloride 0.9% 1000 ML 1,000 ML ONE ×2 (18:20→20:59)
[2023-01-01] MEDS ORDERED: Zofran 4 MG/2 ML VIAL ONE (18:20)
[2023-01-01 18:25] LABS: Absolute Neutrophil Ct (ANC) 2.32 x10^3/uL (1.4-6.9); BASOPHIL % 1.2 % (0.0-0.4); Basophil (Absolute #) 0.05 x10^3/uL (0-0.4); Eosinophil % 3.3 % (0.00-5.0); Eosinophil (Absolute #) 0.14 x10^3/uL (0-0.5); Hematocrit 36.6 % (35-47); Hemoglobin 11.7 g/dL (12.0-16.0); IMMATURE GRAN # 0.01 x10^3u/L (0.00-0.03); IMMATURE GRAN % 0.2 % (0.00-0.4); Lymphocyte (Absolute #) 1.31 x10^3/uL (1.0-4.6); Lymphocytes % 30.5 % (24.0-44.0); Mean Cell Volume 97.3 fL (78-100); Mean Corpuscular Hemoglobin 31.1 pg (26-32); Mean Platelet Volume 9.7 fL (7.5-11.0); Monocyte (Absolute #) 0.47 x10^3/uL (0.0-1.3); Monocytes % 10.9 % (0.0-12.0); Neutrophil % 53.9 % (36.0-66.0); Platelet Count 258 x10^3/uL (150-450); Red Blood Count 3.76 x10^6/uL (4.1-5.4); Red Cell Distribution Width 15.5 % (11.5-14.0); White Blood Count 4.3 x10^3/uL (4.0-10.5)
[2023-01-01 18:37] LABS: ALBUMIN 3.1 g/dL (3.5-5.0); ANION GAP 11.7 MEQ/L (5-15); BILIRUBIN,TOTAL 0.2 mg/dL (0.2-1.3); Calcium 8.9 mg/dL (8.4-10.2); Creatinine 1 1.23 mg/dL (0.52-1.04); EST GLOMERULAR FILTRATION RATE 47.2 ML/MIN; MAGNESIUM 1.9 mg/dL (1.6-2.3); Potassium 3.8 mmol/L (3.5-5.1); Total Protein 6.2 g/dL (6.3-8.2)
[2023-01-01 19:26] LABS: ADD URINE CULTURE? YES (NO); Appearance Cloudy (Clear); Bacteria Many /HPF (None Seen); Bilirubin Negative (Negative); Blood NHT (Negative); Epithelial Cells Rare /HPF (None Seen); Glucose, Urine >=1000 mg/dL (Negative); Ketones 15 (Negative); Leukocyte Esterase Small (Negative); Nitrite Negative (Negative); Ph 5.5 (4.6-8.0); Protein,Urine Dip Trace (Negative); Specific Gravity 1.025 (1.005-1.030); Urobilinogen 0.2 mg/dL (0.2); WBC >100 /HPF (0-5)
[2023-01-01 19:46] VITALS: O2SAT 97
[2023-01-01] MEDS ORDERED: ROCEPHIN 1 Gm-D5w 50 ml Bag** 1 G/50 ML IVPB IV STA (20:58)
[2023-01-01] MEDS ORDERED: ROCEPHIN 1 Gm-D5w 50 ml Bag** 1 G/50 ML IVPB IV ONE (20:59)
[2023-01-01 22:17] VITALS: BP 143/92; PULSE 101; RESP 16; TEMP 97.1
== END 2023-01-01 22:17 | disposition home or self-care (01) ==
LOC: ED 16:31
DX: E86.0 Dehydration (principal); N39.0 Urinary tract infection, site not specified; R53.1 Weakness; E11.9 Type 2 diabetes mellitus without complications; E78.5 Hyperlipidemia, unspecified; I10 Essential (primary) hypertension; Z79.4 Long term (current) use of insulin; Z79.01 Long term (current) use of anticoagulants; Z79.891 Long term (current) use of opiate analgesic; Z79.899 Other long term (current) drug therapy; Z72.0 Tobacco use
CPT/HCPCS: 36415; 80053; 81001; 83605; 83735; 85025; 87077; 87086; 87186; 96365; 96374; 99284; J0696; J1642; J2405

== ENCOUNTER 2023-02-21 18:24 | Emergency (ER) | payer BC ==
[2023-02-21 18:51] VITALS: TEMP 99.2
[2023-02-21 19:43] LABS: Absolute Neutrophil Ct (ANC) 5.79 x10^3/uL (1.4-6.9); BASOPHIL % 0.7 % (0.0-0.4); Basophil (Absolute #) 0.06 x10^3/uL (0-0.4); Eosinophil % 4.1 % (0.00-5.0); Eosinophil (Absolute #) 0.34 x10^3/uL (0-0.5); Hematocrit 31.7 % (35-47); Hemoglobin 9.8 g/dL (12.0-16.0); IMMATURE GRAN # 0.02 x10^3u/L (0.00-0.03); IMMATURE GRAN % 0.2 % (0.00-0.4); Lymphocyte (Absolute #) 1.47 x10^3/uL (1.0-4.6); Lymphocytes % 17.6 % (24.0-44.0); Mean Cell Volume 92.2 fL (78-100); Mean Corpuscular Hemoglobin 28.5 pg (26-32); Mean Corpuscular Hgb Concent. 30.9 g/dL (32-36); Mean Platelet Volume 9.3 fL (7.5-11.0); Monocyte (Absolute #) 0.69 x10^3/uL (0.0-1.3); Monocytes % 8.2 % (0.0-12.0); Neutrophil % 69.2 % (36.0-66.0); Platelet Count 352 x10^3/uL (150-450); Red Blood Count 3.44 x10^6/uL (4.1-5.4); Red Cell Distribution Width 15.7 % (11.5-14.0); White Blood Count 8.4 x10^3/uL (4.0-10.5)
[2023-02-21 19:57] LABS: ALBUMIN 3.1 g/dL (3.5-5.0); ANION GAP 10.8 MEQ/L (5-15); BILIRUBIN,TOTAL 0.2 mg/dL (0.2-1.3); Calcium 8.8 mg/dL (8.4-10.2); Creatinine 1 1.38 mg/dL (0.52-1.04); EST GLOMERULAR FILTRATION RATE 41.3 ML/MIN; Potassium 3.9 mmol/L (3.5-5.1); Total Protein 6.4 g/dL (6.3-8.2)
--- NOTE | 2023-02-21 20:07 | ERPHSYRPT ---
- History of Present Illness Time Seen by Provider: 02/21/23 18:45 Source: patient Exam Limitations: no limitations Patient Subjective Stated Complaint: Cough Triage Nursing Assessment: Patient ambulated back to ED and transferred self to bed. Patient A+O X. Patient's skin pink, warm and dry. Patient complains of cough for 2 days. Patient states she feels "full" in her left side of chest. Patient's lungs noted to be diminished and course on right lobe and diminished with crackles on left lobe. Patient complains of productive cough with produc tive white sputum. Patient complains of chest discomfort when taking a deep breath. Physician History: Patient is a 62-year-old female presents to our emergency department for evaluation of cough x2 days shortness of breath and chest fullness. Patient is known to have lung cancer and is currently on immunotherapy. Patient states she experiences some chest discomfort upon deep inspiration. Patient advised that she has a known blood clot. Patient currently on Eliquis. Despite patient's symptoms appear to be worsening. No fever. No nausea vomiting or diaphoresis. Symptoms are constant. Symptoms are moderate in intensity. Significant other at bedside. They voiced no other complaints or concerns at this time. Portions of this note were created with voice recognition technology. There may be grammatical, spelling, punctuation or sound alike errors Timing/Duration: today, day(s) (2 days) Severity: moderate Modifying Factors: Improves With: nothing Associated Symptoms: shortness of breath, other (Chest pressure) Allergies/Adverse Reactions: orphenadrine citrate [From Norflex] Allergy (Intermediate, Verified 02/21/23 18: 37) severe vomiting adhesive tape Allergy (Verified 02/21/23 18:37) levofloxacin [From Levaquin] Adverse Reaction (Mild, Verified 02/21/23 18:37) Nausea and Vomiting Home Medications: Cyclobenzaprine HCl 10 mg [Cyclobenzaprine 10 MG] 10 mg PO QID PRN 9 [History] Promethazine HCl 25 mg [Phenergan 25 mg] 25 mg PO QID PRN 07/17/21 [History] ALPRAZolam 1 MG [Xanax 1 mg] 1 mg PO BID 07/18/22 [History] Prochlorperazine Maleate [Compazine] 10 mg PO BIDPRN PRN 08/30/22 [History] Insulin Aspart [NovoLOG Insulin] 4 unit SQ AC 10/08/22 [History] Apixaban [Eliquis] 5 mg PO BID 11/28/22 [History] Aripiprazole 10 mg [Abilify 10 MG] 10 mg PO DAILY PRN PRN 11/28/22 [History] Hydrocodone/Acetaminophen [Hydrocodone-Acetamin 5-325 mg] 1 tab PO BID PRN 11/28/22 [History] Insulin Glargine,Hum.rec.anlog [Toujeo Solostar] 14 unit SQ QHS 11/28/22 [History] Metoprolol Tartrate 50 mg [Lopressor 50 MG] 50 mg PO DAILY 11/28/22 [History] Gabapentin [Neurontin ] 300 mg PO DAILY 01/01/23 [History] Mirtazapine 30 mg [Remeron 30 mg] 30 mg PO HS 01/01/23 [History] Hx Tetanus, Diphtheria Vaccination/Date Given: No Hx Influenza Vaccination/Date Given: Yes Hx Pneumococcal Vaccination/Date Given: Yes Travel Risk - International Travel Have you traveled outside of the country in past 3 weeks: No - Coronavirus Screening Are you exhibiting any of the following symptoms?: No Close contact with a COVID-19 positive Pt in past 14-21 Days: No - Vaccine Status Have you recieved a Covid-19 vaccination: Yes 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 - Vaccination Dates Date of 2cond Vaccination (if applicable): 2020 - Review of Systems Constitutional: No Symptoms, No Fever, No Chills Eyes: No Symptoms Ears, Nose, & Throat: No Symptoms Respiratory: No Symptoms, No Cough, No Dyspnea Cardiac: No Symptoms, No Chest Pain, No Edema, No Syncope Abdominal/Gastrointestinal: No Symptoms, No Abdominal Pain, No Nausea, No Vomiting, No Diarrhea Genitourinary Symptoms: No Symptoms, No Dysuria Musculoskeletal: No Symptoms, No Back Pain, No Neck Pain Skin: No Symptoms, No Rash Neurological: No Symptoms, No Dizziness, No Focal Weakness, No Sensory Changes Psychological: No Symptoms Endocrine: No Symptoms Hematologic/Lymphatic: No Symptoms Immunological/Allergic: No Symptoms All Other Systems: Reviewed and Negative - Past Medical History Pertinent Past Medical History: Yes Neurological History: No Pertinent History ENT History: Cataracts Cardiac History: Coronary Artery Disease, High Cholesterol, Hypertension Respiratory History: COPD, Lung Cancer Endocrine Medical History: Diabetes Type II Musculoskeletal History: Fractures GI Medical History: GERD History: Renal Disease Psycho-Social History: Anxiety, Depression Female Reproductive Disorders: No Pertinent History Other Medical History: Previous left leg fx many years ago,rt wrist fx with cast. left lower lobe lung cancer. chemo - Past Surgical History Past Surgical History: Yes Neuro Surgical History: No Pertinent History Cardiac: Cardiac Catheterization, Cardiac Stent Respiratory: Lobectomy Gastrointestinal: Cholecystectomy Genitourinary: No Pertinent History Musculoskeletal: Other Female Surgical History: Tubal Ligation Other Surgical History: BUNONECTOMY. BACK SURGERY X2, right upper chest port placement. LL lung lobectomy - Social History Smoking Status: Heavy tobacco smoker How long have you smoked: 50 years Exposure to second hand smoke: No Alcohol Use: None Drug Use: none Patient Lives Alone: No Significant Family History: heart disease, diabetes, hypertension - Nursing Vital Signs Nursing Vital Signs: Initial Vital Signs Temperature 99.2 F 02/21/23 18:38 Pulse Rate 89 02/21/23 18:38 Respiratory Rate 18 02/21/23 18:38 Blood Pressure 167/80 02/21/23 18:38 O2 Sat by Pulse Oximetry 98 02/21/23 18:38 Pain Scale Pain Intensity 2 - Physical Exam General Appearance: no apparent distress, alert Eye Exam: PERRL/EOMI, eyes nml inspection Ears, Nose, Throat Exam: normal ENT inspection, TMs normal, pharynx normal, moist mucous membranes Neck Exam: normal inspection, non-tender, supple, full range of motion Respiratory Exam: normal breath sounds, lungs clear, diminished breath sounds, rhonchi (Coarse breath sounds bilateral bases), No respiratory distress Cardiovascular Exam: regular rate/rhythm, normal heart sounds, normal peripheral pulses Gastrointestinal/Abdomen Exam: soft, normal bowel sounds, No tenderness, No mass Back Exam: normal inspection, normal range of motion, No CVA tenderness, No vertebral tenderness Extremity Exam: normal inspection, normal range of motion, pelvis stable Neurologic Exam: alert, oriented x 3, cooperative, normal mood/affect, nml cerebellar function, nml station & gait, sensation nml, No motor deficits Skin Exam: normal color, warm, dry, No rash Lymphatic Exam: No adenopathy SpO2 Interpretation: normal SpO2: 98 O2 Delivery: Room Air - Course Nursing assessment & vital signs reviewed: Yes EKG Interpreted by Me: RATE (79), Sinus Rhythm, NORMAL AXIS, NORMAL INTERVALS - CT Exams Chest CT Interpretation: Tele-radiologist Report (No PE. Previous left pneumothorax improved with 25% pneumothorax still present and new small pleural effusion) Ordered Tests: Active Orders 24 hr Category Date Time Status Senior Executive Compensation Analyst STAT Care 02/21/23 18:56 Active EKG-ER Only STAT Care 02/21/23 18:55 Active IV Insertion STAT Care 02/21/23 18:55 Active Pulse Oximetry (ED) STAT Care 02/21/23 18:55 Active CHEST WITH CONTRAST [CT] Stat Exams 02/21/23 18:57 Taken BLOOD CULTURE Stat Lab 02/21/23 19:33 Received CBC W DIFF Stat Lab 02/21/23 19:19 Completed CMP Stat Lab 02/21/23 19:19 Completed TROPONIN Q4H Lab 02/21/23 19:19 Completed TROPONIN Q4H Lab 02/22/23 02:45 Ordered TROPONIN Q4H Lab 02/22/23 06:45 Ordered TROPONIN Stat Lab 02/21/23 22:46 Completed Medication Summary Generic Name Dose Route Start Last Admin Trade Name Freq PRN Reason Stop Dose Admin Heparin Sodium (Beef Lung) 500 units 02/21/23 23:24 Heparin Lock Flush Pf 500 Units/5 Ml Syringe PORT FLUSH 03/23/23 23:23 PRN PRN IV PORT FLUSH Sodium Chloride 1,000 mls @ 999 mls/hr 02/21/23 22:34 02/21/23 22:41 Sodium Chloride 0.9% 1000 Ml IV 02/21/23 23:34 Not Given .Q1H1M STA Sodium Chloride 500 mls @ 500 mls/hr 02/21/23 22:41 02/21/23 22:42 Sodium Chloride 0.9% 500 Ml IV 02/21/23 23:40 500 mls/hr .Q1H ONE Administration Discontinued Medications Generic Name Dose Route Start Last Admin Trade Name Freq PRN Reason Stop Dose Admin Sodium Chloride Confirm 02/21/23 22:38 Sodium Chloride 0.9% 500 Ml Administered 02/21/23 22:39 Dose 500 mls @ ud IV .STK-MED ONE Lab/Rad Data: Laboratory Result Diagrams 02/21/23 19:19 02/21/23 19:19 Laboratory Results 02/21/23 02/21/23 02/21/23 Range/Units 22:46 19:43 19:19 WBC (4.0-10.5) x10^3/uL RBC (4.1-5.4) x10^6/uL Hgb (12.0-16.0) g/dL Hct (35-47) % MCV (78-100) fL MCH (26-32) pg MCHC (32-36) g/dL RDW (11.5-14.0) % Plt Count (150-450) x10^3/uL MPV (7.5-11.0) fL Gran % (36.0-66.0) % Immature Gran % (Auto) (0.00-0.4) % Nucleat RBC Rel Count (0.00-0.1) % Eos # (Auto) (0-0.5) x10^3/uL Immature Gran # (Auto) (0.00-0.03) x10^3u/L Absolute Lymphs (auto) (1.0-4.6) x10^3/uL Absolute Monos (auto) (0.0-1.3) x10^3/uL Absolute Nucleated RBC (0.00-0.01) x10^3u/L Lymphocytes % (24.0-44.0) % Monocytes % (0.0-12.0) % Eosinophils % (0.00-5.0) % Basophils % (0.0-0.4) % Absolute Granulocytes (1.4-6.9) x10^3/uL Basophils # (0-0.4) x10^3/uL Sodium (137-145) mmol/L Potassium (3.5-5.1) mmol/L Chloride (98-107) mmol/L Carbon Dioxide (22-30) mmol/L Anion Gap (5-15) MEQ/L BUN (7-17) mg/dL Creatinine (0.52-1.04) mg/dL Estimated GFR ML/MIN Glucose (74-106) mg/dL Calcium (8.4-10.2) mg/dL Total Bilirubin (0.2-1.3) mg/dL AST (14-36) U/L ALT (0-35) U/L Alkaline Phosphatase (38-126) U/L Troponin I < 0.012 < 0.012 (0.000-0.034) ng/mL Serum Total Protein (6.3-8.2) g/dL Albumin (3.5-5.0) g/dL Influenza Type A Ag NEGATIVE (NEGATIVE) Influenza Type B Ag NEGATIVE (NEGATIVE) RSV (PCR) NEGATIVE (NEGATIVE) SARS-CoV-2 (PCR) NEGATIVE (NEGATIVE) 02/21/23 02/21/23 Range/Units 19:19 19:19 WBC 8.4 (4.0-10.5) x10^3/uL RBC 3.44 L (4.1-5.4) x10^6/uL Hgb 9.8 L (12.0-16.0) g/dL Hct 31.7 L (35-47) % MCV 92.2 (78-100) fL MCH 28.5 (26-32) pg MCHC 30.9 L (32-36) g/dL RDW 15.7 H (11.5-14.0) % Plt Count 352 (150-450) x10^3/uL MPV 9.3 (7.5-11.0) fL Gran % 69.2 H (36.0-66.0) % Immature Gran % (Auto) 0.2 (0.00-0.4) % Nucleat RBC Rel Count 0.0 (0.00-0.1) % Eos # (Auto) 0.34 (0-0.5) x10^3/uL Immature Gran # (Auto) 0.02 (0.00-0.03) x10^3u/L Absolute Lymphs (auto) 1.47 (1.0-4.6) x10^3/uL Absolute Monos (auto) 0.69 (0.0-1.3) x10^3/uL Absolute Nucleated RBC 0.00 (0.00-0.01) x10^3u/L Lymphocytes % 17.6 L (24.0-44.0) % Monocytes % 8.2 (0.0-12.0) % Eosinophils % 4.1 (0.00-5.0) % Basophils % 0.7 (0.0-0.4) % Absolute Granulocytes 5.79 (1.4-6.9) x10^3/uL Basophils # 0.06 (0-0.4) x10^3/uL Sodium 135 L (137-145) mmol/L Potassium 3.9 (3.5-5.1) mmol/L Chloride 103 (98-107) mmol/L Carbon Dioxide 25 (22-30) mmol/L Anion Gap 10.8 (5-15) MEQ/L BUN 29 H (7-17) mg/dL Creatinine 1.38 H (0.52-1.04) mg/dL Estimated GFR 41.3 ML/MIN Glucose 340 H (74-106) mg/dL Calcium 8.8 (8.4-10.2) mg/dL Total Bilirubin 0.20 (0.2-1.3) mg/dL AST 23 (14-36) U/L ALT 19 (0-35) U/L Alkaline Phosphatase 185 H (38-126) U/L Troponin I (0.000-0.034) ng/mL Serum Total Protein 6.4 (6.3-8.2) g/dL Albumin 3.1 L (3.5-5.0) g/dL Influenza Type A Ag (NEGATIVE) Influenza Type B Ag (NEGATIVE) RSV (PCR) (NEGATIVE) SARS-CoV-2 (PCR) (NEGATIVE) - Progress Progress: improved Progress Note: Patient is a 62-year-old female presents to our ED for evaluation of a cough. Patient also experiencing chest fullness. EKG reveals a normal sinus rhythm. Patient is on Eliquis for PE. In light of patient's symptomology we repeated a CTA chest. No PE observed however patient has a residual 25% pneumothorax that appears to be chronic. I spoke to Dr. Lozada of general surgery regarding our findings. He advised that since the pneumothorax appears to have been improved but residual it is likely chronic. Patient's last chest x-ray identified deep fontana's pneumothorax is chronic. Dr. Lozada advised patient to follow-up with her tree driller regarding the chronic residual pneumothorax. I spoke to Dr. Magali Phillips at 10:49 PM CBC reveals a hemoglobin of 9.8. This is approximately 1 g drop from a month ago. 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 She will follow-up with her primary care doctor regarding this change in her hemoglobin. Additionally patient's creatinine is elevated at 1.32. Patient will follow-up with her primary care doctor regarding this elevation in her creatinine. Patient received half a liter of normal saline after administration of the IV contrast for the CTA of the chest. COVID test negative. Troponin negative x2. Patient reassessed. She is comfortable asymptomatic vital stable. Will discharge patient home. Patient voices no other complaints or concerns at this time. Portions of this note were created with voice recognition technology. There may be grammatical, spelling, punctuation or sound alike errors Complexity problems addressed is moderate acute complicated No critical care time Complex of data reviewed and analyzed as extensive. Test ordered test reviewed. The results were analyzed and clinically correlated with history and physical examination. Consultation with general surgery regarding patient's chronic residual pneumothorax. Risk of complication and or risk morbidity/mortality of patient management is low. Vital stable. Time spent to discharge patient is approximately 15 minutes. Plan of care established for shared decision making. No social determinants of health present to impede follow-up. Portions of this note were created with voice recognition technology. There may be grammatical, spelling, punctuation or sound alike errors 02/21/23 23:32 Counseled pt/family regarding: lab results, diagnosis, need for follow-up, rad results - Departure Departure Disposition: Home Clinical Impression: Chronic pneumothorax, Cough, Chest fullness Condition: Stable Critical Care Time: No Referrals: LYUDMILA ARIAS MD [Primary Care Provider] - Follow up/PCP as directed Additional Instructions: Discharge/Care Plan ADAMNANNETTE LAMB was seen on 02/21/23 in the Emergency Room. The patient was counseled regarding Diagnosis,Lab results, Imaging studies, need for follow up and when to return to the Emergency Room. Prescriptions given: Discharge Note I have spoken with the patient and/or caregivers. I have explained the patient's condition, diagnosis and treatment plan based on the information available to me at this time. I have answered the patient's and/or caregiver's questions and addressed any concerns. The patient and/or caregivers have as good understanding of the patient's diagnosis, condition and treatment plan as can be expected at this point. The vital signs have been stable. The patient's condition is stable and appropriate for discharge from the emergency department. The patient will pursue further outpatient evaluation with the primary care physician or other designated or consulting physician as outlined in the discharge instructions. The patient and/or caregivers are agreeable to this plan of care and follow-up instructions have been explained in detail. The patient and/or caregivers have received these instruction. The patient/and or caregivers are aware that any significant change in condition or worsening of symptoms should prompt an immediate return to this or the closest emergency department or call 911.
[2023-02-21 20:22] LABS: INFLUENZA A NEGATIVE (NEGATIVE); INFLUENZA B NEGATIVE (NEGATIVE); RESPIRATORY SYNCTIAL VIRUS NEGATIVE (NEGATIVE); SARS-CoV-2 Xpert Express NEGATIVE (NEGATIVE)
[2023-02-21 22:32] VITALS: PULSE 73
[2023-02-21] MEDS ORDERED: Sodium Chloride 0.9% 1000 ML 1,000 ML IV STA (22:34)
[2023-02-21] MEDS ORDERED: Sodium Chloride 0.9% 500 ML 500 ML IV ONE ×2 (22:38→22:41)
[2023-02-21 23:12] VITALS: BP 143/77; RESP 23
[2023-02-21 23:28] VITALS: O2SAT 98
--- NOTE | 2023-02-22 08:54 | XRAY ---
Indication: Short of breath. History of pulmonary embolus. Multiple contiguous axial images obtained through the chest using 80 cc Isovue 370 contrast and PE protocol. Comparison: October 08, 2022 Good opacification of the pulmonary arteries to include the lobar and segmental branches. No pulmonary embolus. Heart not enlarged again with right Port-A-Cath. Aorta mildly arteriosclerotic without aneurysm/dissection. Stable tiny left suprahilar calcified nodes. No pathologic mediastinal/hilar lymphadenopathy. Incidentally, heart and mediastinal structures are mildly now shifted to the left. Lungs demonstrates improved left pneumothorax with approximately 25% residual versus recurrent pneumothorax still present. New mild/moderate left effusion. Remaining lungs again demonstrates moderate pulmonary emphysema with scattered fibrosis/scarring. No new pulmonary mass/nodule or infiltrate. Bony thorax intact again with osteopenia and minimal degenerative changes throughout the spine. Previous left chest subcutaneous emphysema has cleared. Limited upper abdomen again demonstrates distended biliary tree. Impression: 1. Negative pulmonary embolus. 2. Approximately 25% left pneumothorax with new left effusion and heart/mediastinal shift to the left. 3. Again chronic findings including pulmonary emphysema, fibrosis/scarring, chronic bony findings, distended biliary tree, and old granulomatous disease.
== END 2023-02-21 23:38 | disposition home or self-care (01) ==
LOC: ED 18:24
DX: J93.81 Chronic pneumothorax (principal); R05.1 Acute cough; R07.9 Chest pain, unspecified; E78.5 Hyperlipidemia, unspecified; I10 Essential (primary) hypertension; E11.9 Type 2 diabetes mellitus without complications; Z79.01 Long term (current) use of anticoagulants; Z79.4 Long term (current) use of insulin; Z79.891 Long term (current) use of opiate analgesic; Z79.899 Other long term (current) drug therapy; Z72.0 Tobacco use
CPT/HCPCS: 0241U; 36000; 36415; 71260; 80053; 84484; 85025; 87040; 93005; 93041; 94760; 96360; 99284; J1642

== ENCOUNTER 2023-05-11 07:22 | Emergency (ER) | payer BC ==
[2023-05-11 07:38] VITALS: TEMP 97.8
[2023-05-11] MEDS ORDERED: Zofran 4 MG/2 ML VIAL ONE (07:51)
[2023-05-11] MEDS ORDERED: Sodium Chloride 0.9% 1000 ML 1,000 ML ONE (07:51)
[2023-05-11] MEDS ORDERED: Sodium Chloride 0.9% 1000 ML 1,000 ML IV STA (07:57)
[2023-05-11 07:58] LABS: Lactic Acid 1.7 (0.4-2.0); VBG BASE EXCESS -1.3 (-2.0-2.0); VBG CARBOXYHEMOGLOBIN 4.6 % T HGB (0.0-6.9); VBG HCO3- 22.7 meq/L (22-28); VBG HEMOGLOBIN 12.3; VBG POTASSIUM 4.3 (3.5-5.1); VBG pH 7.42 (7.32-7.42)
[2023-05-11] MEDS ORDERED: Zofran 4 MG/2 ML VIAL IV ONE (07:58)
[2023-05-11 08:13] LABS: Absolute Neutrophil Ct (ANC) 7.71 x10^3/uL (1.4-6.9); BASOPHIL % 1.1 % (0.0-0.4); Basophil (Absolute #) 0.11 x10^3/uL (0-0.4); Eosinophil % 0.8 % (0.00-5.0); Eosinophil (Absolute #) 0.08 x10^3/uL (0-0.5); Hematocrit 37.9 % (35-47); Hemoglobin 11.7 g/dL (12.0-16.0); IMMATURE GRAN # 0.06 x10^3u/L (0.00-0.03); IMMATURE GRAN % 0.6 % (0.00-0.4); Lymphocyte (Absolute #) 1.78 x10^3/uL (1.0-4.6); Mean Cell Volume 86.9 fL (78-100); Mean Corpuscular Hemoglobin 26.8 pg (26-32); Mean Corpuscular Hgb Concent. 30.9 g/dL (32-36); Mean Platelet Volume 8.7 fL (7.5-11.0); Monocyte (Absolute #) 0.71 x10^3/uL (0.0-1.3); Monocytes % 6.8 % (0.0-12.0); Neutrophil % 73.7 % (36.0-66.0); Platelet Count 428 x10^3/uL (150-450); Red Blood Count 4.36 x10^6/uL (4.1-5.4); Red Cell Distribution Width 16.4 % (11.5-14.0); White Blood Count 10.5 x10^3/uL (4.0-10.5)
[2023-05-11 08:21] LABS: ALBUMIN 3.9 g/dL (3.5-5.0); ANION GAP 18.3 MEQ/L (5-15); BILIRUBIN,TOTAL 0.7 mg/dL (0.2-1.3); Calcium 10.3 mg/dL (8.4-10.2); Creatinine 1 0.86 mg/dL (0.52-1.04); EST GLOMERULAR FILTRATION RATE 76.8 ML/MIN; Total Protein 7.7 g/dL (6.3-8.2)
[2023-05-11 08:44] LABS: INFLUENZA A NEGATIVE (NEGATIVE); INFLUENZA B NEGATIVE (NEGATIVE); RESPIRATORY SYNCTIAL VIRUS NEGATIVE (NEGATIVE); SARS-CoV-2 Xpert Express NEGATIVE (NEGATIVE)
--- NOTE | 2023-05-11 08:51 | XRAY ---
Indication: Short of breath, weakness, and cough. Lung cancer. Comparison: November 28, 2022 Portable chest again demonstrates COPD and left lung calcified granuloma. New left base pleural effusion/thickening unchanged in appearance with respect to CT chest February 21, 2023. Heart not enlarged again with right Port-A-Cath. Bony thorax intact again with osteopenia. Impression: Nonacute chest with chronic findings.
[2023-05-11 09:14] VITALS: PULSE 113
[2023-05-11] MEDS ORDERED: NORCO 5/325 MG ONE (10:02)
[2023-05-11] MEDS ORDERED: NORCO 5/325 MG PO ONE (10:03)
[2023-05-11 10:07] VITALS: BP 159/85; RESP 19
[2023-05-11 10:09] VITALS: O2SAT 97
--- NOTE | 2023-05-11 10:09 | ERPHSYRPT ---
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 Patient Subjective Stated Complaint: pt is a cancer pt and has been vomiting and feels dehydrated Triage Nursing Assessment: Pt brought to the ER by her , hypertensive, tachycardic, tachypnic, rates pain as 9/10 from her left hip down, extremely weak, pulses normal, goes to immunotherapy 1x/week, unable to get from the wheelchair to the bed on her own Physician History: History of chronic back pain scheduled for injections, atrial fibrillation on Eliquis, hypertension, hyperlipidemia, diabetes mellitus, lung cancer on immunotherapy is here with vomiting off and on since yesterday with feeling weak fatigued tired and dehydrated. Patient reports her blood sugar has been staying up and is worried about being in DKA. Denies any chest pain palpitations or shortness of breath. Her heart rate is in 110s which according to her is always like. No fever or chills reported. Does have chronic low back pain with radiation to the left. No numbness tingling lower extremities. No saddle anesthesia. Allergies/Adverse Reactions: orphenadrine citrate [From Norflex] Allergy (Intermediate, Verified 05/12/23 21:37) severe vomiting adhesive tape Allergy (Verified 05/12/23 21:37) levofloxacin [From Levaquin] Adverse Reaction (Mild, Verified 05/12/23 21:37) Nausea and Vomiting Home Medications: Cyclobenzaprine HCl 10 mg [Cyclobenzaprine 10 MG] 10 mg PO QID PRN 02/13/19 [History] Promethazine HCl 25 mg [Phenergan 25 mg] 25 mg PO QID PRN 07/17/21 [History] Prochlorperazine Maleate [Compazine] 10 mg PO BIDPRN PRN 08/30/22 [History] Insulin Aspart [NovoLOG Insulin] 4 unit SQ AC 10/08/22 [History] Insulin Glargine,Hum.rec.anlog [Ward Laughlin] 13 unit SQ QHS 11/28/22 [History] Metoprolol Tartrate 50 mg [Lopressor 50 MG] 50 mg PO DAILY 11/28/22 [History] Gabapentin [Neurontin ] 300 mg PO HS 01/01/23 [History] Mirtazapine 30 mg [Remeron 30 mg] 30 mg PO HS 01/01/23 [History] Hx Tetanus, Diphtheria Vaccination/Date Given: No Hx Influenza Vaccination/Date Given: Yes Hx Pneumococcal Vaccination/Date Given: Yes Travel Risk - International Travel Have you traveled outside of the country in past 3 weeks: No - Coronavirus Screening Are you exhibiting any of the following symptoms?: No - Vaccine Status Have you recieved a Covid-19 vaccination: Yes Human Resources Temp: Moderna - Vaccination Dates Date of 2cond Vaccination (if applicable): 2020 - Review of Systems Constitutional: Fatigue Eyes: No Symptoms Ears, Nose, & Throat: No Symptoms Respiratory: No Symptoms Cardiac: No Symptoms Abdominal/Gastrointestinal: Nausea, Vomiting Genitourinary Symptoms: No Symptoms Musculoskeletal: Back Pain, Myalgias Skin: No Symptoms Neurological: No Symptoms Hematologic/Lymphatic: No Symptoms Immunological/Allergic: No Symptoms - Past Medical History Pertinent Past Medical History: Yes Neurological History: No Pertinent History ENT History: Cataracts Cardiac History: Coronary Artery Disease, High Cholesterol, Hypertension Respiratory History: COPD, Lung Cancer Endocrine Medical History: Diabetes Type II Musculoskeletal History: Fractures GI Medical History: GERD History: Renal Disease Psycho-Social History: Anxiety, Depression Female Reproductive Disorders: No Pertinent History Other Medical History: Previous left leg fx many years ago,rt wrist fx with cast. left lower lobe lung cancer. chemo - Past Surgical History Past Surgical History: Yes Neuro Surgical History: No Pertinent History Cardiac: Cardiac Catheterization, Cardiac Stent Respiratory: Lobectomy Gastrointestinal: Cholecystectomy Genitourinary: No Pertinent History Musculoskeletal: Other Female Surgical History: Tubal Ligation Other Surgical History: BUNONECTOMY. BACK SURGERY X2, right upper chest port placement. LL lung lobectomy - Social History Smoking Status: Heavy tobacco smoker How long have you smoked: 50 years Exposure to second hand smoke: Yes Alcohol Use: None Drug Use: none Patient Lives Alone: No Significant Family History: heart disease, diabetes, hypertension - Nursing Vital Signs Nursing Vital Signs: Initial Vital Signs Temperature 97.8 F 05/11/23 07:30 Pulse Rate 120 H 05/11/23 07:30 Respiratory Rate 27 H 05/11/23 07:30 Blood Pressure 156/91 05/11/23 07:30 O2 Sat by Pulse Oximetry 96 05/11/23 07:30 Pain Scale Pain Intensity 9 - Physical Exam General Appearance: no apparent distress, alert Eye Exam: PERRL/EOMI Ears, Nose, Throat Exam: normal ENT inspection Neck Exam: normal inspection, supple, full range of motion Respiratory Exam: normal breath sounds, lungs clear Cardiovascular Exam: normal heart sounds, tachycardia Gastrointestinal/Abdomen Exam: soft, normal bowel sounds, No tenderness, No distention, No guarding Back Exam: normal inspection, normal range of motion Neurologic Exam: alert, oriented x 3, cooperative, 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, normal mood/affect, nml station & gait, sensation nml, No nml cerebellar function, No motor deficits Skin Exam: normal color SpO2 Interpretation: normal SpO2: 97 O2 Delivery: Room Air Ordered Tests: Medication Summary Discontinued Medications Generic Name Dose Route Start Last Admin Trade Name Freq PRN Reason Stop Dose Admin Hydrocodone Bitart/Acetaminophen 1 tab 05/11/23 10:03 05/11/23 10:05 Hydrocodone/Apap 5/325 1 Tab Tablet PO 05/11/23 10:04 1 tab STAT ONE Administration Hydrocodone Bitart/Acetaminophen Confirm 05/11/23 10:02 Hydrocodone/Apap 5/325 1 Tab Tablet Administered 05/11/23 10:03 Dose 1 tab .ROUTE .STK-MED ONE Heparin Sodium (Beef Lung) 500 units 05/11/23 10:22 05/11/23 10:24 Heparin Lock Flush Pf 500 Units/5 Ml Syringe PORT FLUSH 05/11/23 10:23 500 units 1XONLY STA Administration Heparin Sodium (Beef Lung) Confirm 05/11/23 10:21 Heparin Lock Flush Pf 500 Units/5 Ml Syringe Administered 05/11/23 10:22 Dose 500 units .ROUTE .STK-MED ONE Sodium Chloride Confirm 05/11/23 07:51 Sodium Chloride 0.9% 1000 Ml Administered 05/11/23 07:52 Dose 1,000 mls @ ud .ROUTE .STK-MED ONE Sodium Chloride 1,000 mls @ 999 mls/hr 05/11/23 07:57 05/11/23 09:15 Sodium Chloride 0.9% 1000 Ml IV 05/11/23 08:57 Infused .Q1H1M STA Infusion Ondansetron HCl Confirm 05/11/23 07:51 Ondansetron Hcl 4 Mg/2 Ml Vial Administered 05/11/23 07:52 Dose 4 mg .ROUTE .STK-MED ONE Ondansetron HCl 4 mg 05/11/23 07:58 05/11/23 08:00 Ondansetron Hcl 4 Mg/2 Ml Vial IV 05/11/23 07:59 4 mg STAT ONE Administration Lab/Rad Data: Laboratory Result Diagrams 05/11/23 08:00 05/11/23 08:00 Laboratory Results 05/11/23 05/11/23 05/11/23 Range/Units 08:05 08:00 08:00 WBC 10.5 (4.0-10.5) x10^3/uL RBC 4.36 (4.1-5.4) x10^6/uL Hgb 11.7 L (12.0-16.0) g/dL Hct 37.9 (35-47) % MCV 86.9 (78-100) fL MCH 26.8 (26-32) pg MCHC 30.9 L (32-36) g/dL RDW 16.4 H (11.5-14.0) % Plt Count 428 (150-450) x10^3/uL MPV 8.7 (7.5-11.0) fL Gran % 73.7 H (36.0-66.0) % Immature Gran % (Auto) 0.6 H (0.00-0.4) % Nucleat RBC Rel Count 0.0 (0.00-0.1) % Eos # (Auto) 0.08 (0-0.5) x10^3/uL Immature Gran # (Auto) 0.06 H (0.00-0.03) x10^3u/L Absolute Lymphs (auto) 1.78 (1.0-4.6) x10^3/uL Absolute Monos (auto) 0.71 (0.0-1.3) x10^3/uL Absolute Nucleated RBC 0.00 (0.00-0.01) x10^3u/L Lymphocytes % 17.0 L (24.0-44.0) % Monocytes % 6.8 (0.0-12.0) % Eosinophils % 0.8 (0.00-5.0) % Basophils % 1.1 (0.0-0.4) % Absolute Granulocytes 7.71 H (1.4-6.9) x10^3/uL Basophils # 0.11 (0-0.4) x10^3/uL pO2/FiO2 Ratio % VBG pH (7.32-7.42) VBG pCO2 at Pat Temp (42-55) mm/Hg VBG pO2 at Pat Temp (25-40) mm/Hg VBG HCO3 (22-28) meq/L VBG O2 Sat (Moe) (95-100) VBG Base Excess (-2.0-2.0) VBG Hemoglobin VBG Carboxyhemoglobin (0.0-6.9) % T HGB POC Potassium (3.5-5.1) Sodium 135 L (137-145) mmol/L Potassium 4.0 (3.5-5.1) mmol/L Chloride 102 (98-107) mmol/L Carbon Dioxide 19 L (22-30) mmol/L Anion Gap 18.3 H (5-15) MEQ/L BUN 35 H (7-17) mg/dL Creatinine 0.86 (0.52-1.04) mg/dL Estimated GFR 76.8 ML/MIN Glucose 249 H (74-106) mg/dL Lactic Acid (0.4-2.0) Calcium 10.3 H (8.4-10.2) mg/dL Total Bilirubin 0.70 (0.2-1.3) mg/dL AST 24 (14-36) U/L ALT 17 (0-35) U/L Alkaline Phosphatase 136 H (38-126) U/L Serum Total Protein 7.7 (6.3-8.2) g/dL Albumin 3.9 (3.5-5.0) g/dL Lipase 38 (23-300) U/L Influenza Type A Ag NEGATIVE (NEGATIVE) Influenza Type B Ag NEGATIVE (NEGATIVE) RSV (PCR) NEGATIVE (NEGATIVE) SARS-CoV-2 (PCR) NEGATIVE (NEGATIVE) 05/11/23 Range/Units 07:55 WBC (4.0-10.5) x10^3/uL RBC (4.1-5.4) x10^6/uL Hgb (12.0-16.0) g/dL Hct (35-47) % MCV (78-100) fL MCH (26-32) pg MCHC (32-36) g/dL RDW (11.5-14.0) % Plt Count (150-450) x10^3/uL MPV (7.5-11.0) fL Gran % (36.0-66.0) % Immature Gran % (Auto) (0.00-0.4) % Nucleat RBC Rel Count (0.00-0.1) % Eos # (Auto) (0-0.5) x10^3/uL Immature Gran # (Auto) (0.00-0.03) x10^3u/L Absolute Lymphs (auto) (1.0-4.6) x10^3/uL Absolute Monos (auto) (0.0-1.3) x10^3/uL Absolute Nucleated RBC (0.00-0.01) x10^3u/L Lymphocytes % (24.0-44.0) % Monocytes % (0.0-12.0) % Eosinophils % (0.00-5.0) % Basophils % (0.0-0.4) % Absolute Granulocytes (1.4-6.9) x10^3/uL Basophils # (0-0.4) x10^3/uL pO2/FiO2 Ratio 21.0 % VBG pH 7.42 (7.32-7.42) VBG pCO2 at Pat Temp 35 L (42-55) mm/Hg VBG pO2 at Pat Temp 44 H (25-40) mm/Hg VBG HCO3 22.7 (22-28) meq/L VBG O2 Sat (Moe) 74.0 L (95-100) VBG Base Excess -1.3 (-2.0-2.0) VBG Hemoglobin 12.3 VBG Carboxyhemoglobin 4.6 (0.0-6.9) % T HGB POC Potassium 4.3 (3.5-5.1) Sodium (137-145) mmol/L Potassium (3.5-5.1) mmol/L Chloride (98-107) mmol/L Carbon Dioxide (22-30) mmol/L Anion Gap (5-15) MEQ/L BUN (7-17) mg/dL Creatinine (0.52-1.04) mg/dL Estimated GFR ML/MIN Glucose (74-106) mg/dL Lactic Acid 1.7 (0.4-2.0) Calcium (8.4-10.2) mg/dL Total Bilirubin (0.2-1.3) mg/dL AST (14-36) U/L ALT (0-35) U/L Alkaline Phosphatase (38-126) U/L Serum Total Protein (6.3-8.2) g/dL Albumin (3.5-5.0) g/dL Lipase (23-300) U/L Influenza Type A Ag (NEGATIVE) Influenza Type B Ag (NEGATIVE) RSV (PCR) (NEGATIVE) SARS-CoV-2 (PCR) (NEGATIVE) - Progress Progress: improved, re-examined Progress Note: 05/11/23 10:06 Given fluids and symptomatic treatment, on reevaluation she is feeling better. Normal white count and lactate. Chemistries showed some element of dehydration with mildly elevated gap and mildly low bicarb with normal venous pH. Negative flu and COVID/RSV. Patient is not in DKA or HHS. Blood sugars in the 240s. Patient reports its sharp pain that causes her to vomit and would like to have some pain medication to go home. She has Phenergan at home and does not want to take Zofran. With her history of chronic pain I would give her few pills to go home. Otherwise her symptoms seems to be more viral etiology and recommended supportive care. Discussed signs symptoms of worsening needing return to ER which he is understanding. Counseled pt/family regarding: lab results, diagnosis, rad results, smoking cessation Medical Desision Making - Independent Historian Additional History obtained from: Spouse - Diagnostic Testing Diagnostic test were ordered, analyzed, and reviewed by me: Yes Radiological Interpretation: Reviewed by me - Risk of complications The pt has a mod risk of morbidity or mortality based on: Need for prescription drug management - Departure Departure Disposition: Home Clinical Impression: Nausea & vomiting, Dehydration, Chronic back pain Condition: Stable Critical Care Time: No Referrals: LYUDMILA ARIAS MD [Primary Care Provider] - Follow up with PCP 1 day Instructions: Nausea and Vomiting, Adult (DC) Additional Instructions: Drink plenty of fluids to keep yourself well-hydrated. Take Tylenol/[place] as needed for pain. Follow-up with your primary care and pain management for reevaluation. Return to ER for intractable vomiting, uncontrolled blood sugar, fever chills, chest pain palpitations or difficulty breathing. Prescriptions: Hydrocodone/Acetaminophen [Hydrocodone-Acetamin 5-325 mg] 1 tab PO Q6HPRN PRN 3 Days #7 tablet MDD 4 PRN Reason: Pain
== END 2023-05-11 10:29 | disposition home or self-care (01) ==
LOC: ED 07:22
DX: R11.2 Nausea with vomiting, unspecified (principal); E86.0 Dehydration; G89.29 Other chronic pain; M54.9 Dorsalgia, unspecified; R53.1 Weakness; R53.83 Other fatigue; I10 Essential (primary) hypertension; E78.5 Hyperlipidemia, unspecified; E11.65 Type 2 diabetes mellitus with hyperglycemia; Z79.4 Long term (current) use of insulin; Z79.891 Long term (current) use of opiate analgesic; Z79.899 Other long term (current) drug therapy; Z72.0 Tobacco use
CPT/HCPCS: 0241U; 36415; 71045; 80053; 82805; 83605; 83690; 85025; 96360; 96374; 99284; J1642; J2405; A9270-GY

== ENCOUNTER 2023-05-12 21:15 | Emergency (ER) | payer BC ==
--- NOTE | 2023-05-12 21:20 | ERPHSYRPT ---
- History of Present Illness Time Seen by Provider: 05/12/23 21:20 Historian: patient, family Exam Limitations: no limitations Physician History: This is a 62-year-old white female patient who presents to the emergency department with a history of intermittent left anterior chest pain described as a nonradiating sharpness. It began this morning at 830. She has had a chronic nonproductive cough and bodyaches. Less than 24 hours ago patient was here in our emergency department for treatment of high blood sugar and flulike symptoms. Her COVID flu A and B and RSV test were negative less than 24 hours ago. Patient is cachectic. She has a history of lung cancer and is status post left lower lobectomy in June 2022 followed by chemotherapy. Patient has a his tory of heavy tobacco use. Patient has chronic renal disease and sees Dr. Aggarwal for this. 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 Patient's blood sugar on arrival was 165. Patient is diabetic. She has cardiac stents in place and is on Eliquis. She has a history of COPD, hyperlipidemia, hypertension, gastroesophageal reflux disease and chronic renal disease Timing/Duration: today Activities at Onset: none Quality: sharpness Location: other (Left anterior chest wall without radiation) Chest Pain Radiation: no radiation Severity of Pain-Max: moderate Severity of Pain-Current: moderate Associated Symptoms: cough Prior Chest Pain/Cardiac Workup: cardiac cath, echocardiography, heart attack Nitro Today/Relief: no nitro taken today Aspirin Treatment Today: 81 mg x 4, provided by ED Allergies/Adverse Reactions: orphenadrine citrate [From Norflex] Allergy (Intermediate, Verified 05/12/23 21 :37) severe vomiting adhesive tape Allergy (Verified 05/12/23 21:37) levofloxacin [From Levaquin] Adverse Reaction (Mild, Verified 05/12/23 21:37) Nausea and Vomiting Home Medications: Cyclobenzaprine HCl 10 mg [Cyclobenzaprine 10 MG] 10 mg PO QID PRN [History] Promethazine HCl 25 mg [Phenergan 25 mg] 25 mg PO QID PRN 07/17/21 [History] Prochlorperazine Maleate [Compazine] 10 mg PO BIDPRN PRN 08/30/22 [History] Insulin Aspart [NovoLOG Insulin] 4 unit SQ AC 10/08/22 [History] Insulin Glargine,Hum.rec.anlog [Touvao Solostar] 13 unit SQ QHS 11/28/22 [History] Metoprolol Tartrate 50 mg [Lopressor 50 MG] 50 mg PO DAILY 11/28/22 [H istory] Gabapentin [Neurontin ] 300 mg PO HS 01/01/23 [History] Mirtazapine 30 mg [Remeron 30 mg] 30 mg PO HS 01/01/23 [History] Hx Tetanus, Diphtheria Vaccination/Date Given: No Hx Influenza Vaccination/Date Given: Yes Hx Pneumococcal Vaccination/Date Given: Yes Travel Risk - International Travel Have you traveled outside of the country in past 3 weeks: No - Coronavirus Screening Are you exhibiting any of the following symptoms?: No Close contact with a COVID-19 positive Pt in past 14-21 Days: No - Vaccine Status Have you recieved a Covid-19 vaccination: Yes Marketing And Communications Officer: Moderna - Vaccination Dates Date of 2cond Vaccination (if applicable): 2020 - Review of Systems Constitutional: No Symptoms Eyes: No Symptoms Ears, Nose, & Throat: No Symptoms Respiratory: No Symptoms Cardiac: Chest Pain (Left anterior chest) Abdominal/Gastrointestinal: No Symptoms Genitourinary Symptoms: No Symptoms Musculoskeletal: No Symptoms Skin: No Symptoms Neurological: No Symptoms Psychological: No Symptoms Endocrine: No Symptoms Hematologic/Lymphatic: No Symptoms Immunological/Allergic: No Symptoms All Other Systems: Reviewed and Negative - Past Medical History Pertinent Past Medical History: Yes Neurological History: No Pertinent History ENT History: Cataracts Cardiac History: Coronary Artery Disease, High Cholesterol, Hypertension Respiratory History: COPD, Lung Cancer Endocrine Medical History: Diabetes Type II Musculoskeletal History: Fractures GI Medical History: GERD History: Renal Disease Psycho-Social History: Anxiety, Depression Female Reproductive Disorders: No Pertinent History Other Medical History: Previous left leg fx many years ago,rt wrist fx with eva t. left lower lobe lung cancer. chemo - Past Surgical History Past Surgical History: Yes Neuro Surgical History: No Pertinent History Cardiac: Cardiac Catheterization, Cardiac Stent Respiratory: Lobectomy Gastrointestinal: Cholecystectomy Genitourinary: No Pertinent History Musculoskeletal: Other Female Surgical History: Tubal Ligation Other Surgical History: BUNONECTOMY. BACK SURGERY X2, right upper chest port placement. LL lung lobectomy - Social History Smoking Status: Heavy tobacco smoker How long have you smoked: 50 years Exposure to second hand smoke: Yes Alcohol Use: None Drug Use: none Patient Lives Alone: No Significant Family History: heart disease, diabetes, hypertension - Nursing Vital Signs Nursing Vital Signs: Initial Vital Signs Temperature 97.9 F 05/12/23 21:16 Pulse Rate 108 H 05/12/23 21:16 Respiratory Rate 18 05/12/23 21:16 Blood Pressure 122/80 05/12/23 21:16 O2 Sat by Pulse Oximetry 96 05/12/23 21:16 Pain Scale Pain Intensity 3 - Physical Exam General Appearance: no apparent distress, alert, anxiety, cachetic Eye Exam: PERRL/EOMI, eyes nml inspection Ears, Nose, Throat Exam: normal ENT inspection, moist mucous membranes Neck Exam: normal inspection, non-tender, supple, full range of motion Respiratory Exam: normal breath sounds, chest tenderness, lungs clear, airway intact, No respiratory distress Cardiovascular Exam: tachycardia Gastrointestinal/Abdomen Exam: soft, normal bowel sounds, No tenderness Pelvic Exam: not done Rectal Exam: not done Back Exam: normal inspection, normal range of motion, No CVA tenderness, No vertebral tenderness Extremity Exam: normal inspection, normal range of motion, pelvis stable Neurologic Exam: alert, oriented x 3, cooperative, chief quality officer II-XII nml as tested, normal mood/affect, nml cerebellar function, nml station & gait, sensation nml Skin Exam: normal color, warm, dry Lymphatic Exam: No adenopathy SpO2 Interpretation: normal O2 Delivery: Room Air - Course Nursing assessment & vital signs reviewed: Yes EKG Interpreted by Me: RATE ([id number]), Sinus Tach, Right [place] Deviation (Borderline), NORMAL INTERVALS, NORMAL QRS, Non-specific ST Changes, Other (No acute ischemic changes on today's twelve-lead EKG.) Ordered Tests: Active Orders 24 hr Category Date Time Status Supervisor Border Department STAT Care 05/12/23 21:29 Active EKG-ER Only STAT Care 05/12/23 21:29 Active IV Insertion STAT Care 05/12/23 21:29 Active POCT Glucose Check STAT Care 05/12/23 21:32 Active Pulse Oximetry (ED) STAT Care 05/12/23 21:29 Active CHEST 1 VIEW (PORTABLE) Stat Exams 05/12/23 21:29 Completed CBC W DIFF Stat Lab 05/12/23 21:40 Completed CMP Stat Lab 05/12/23 21:40 Completed NT PRO BNPII Stat Lab 05/12/23 21:40 Completed POCT GLUCOSE Stat Lab 05/12/23 21:32 Completed POCT GLUCOSE Stat Lab 05/13/23 00:40 Completed TROPONIN Q4H Lab 05/12/23 21:40 Completed TROPONIN Q4H Lab 05/13/23 00:43 Completed TROPONIN Q4H Lab 05/13/23 05:30 Ordered UA W/RFX UR CULTURE Stat Lab 05/12/23 21:30 Ordered Medication Summary Discontinued Medications Generic Name Dose Route Start Last Admin Trade Name Freq PRN Reason Stop Dose Admin Hydrocodone Bitart/Acetaminophen 1 tab 05/12/23 21:56 05/12/23 21:58 Hydrocodone/Apap 5/325 1 Tab Tablet PO 05/12/23 21:57 1 tab STAT ONE Administration Hydrocodone Bitart/Acetaminophen Confirm 05/12/23 21:57 Hydrocodone/Apap 5/325 1 Tab Tablet Administered 05/12/23 21:58 Dose 1 tab .ROUTE .STK-MED ONE Aspirin 324 mg 05/12/23 21:29 05/12/23 21:53 Aspirin 81 Mg Tab.Chew PO 05/12/23 21:30 324 mg STAT ONE Administration Aspirin Confirm 05/12/23 21:49 Aspirin 81 Mg Tab.Chew Administered 05/12/23 21:50 Dose 324 mg .ROUTE .STK-MED ONE Sodium Chloride 1,000 mls @ 999 mls/hr 05/12/23 21:29 05/12/23 23:12 Sodium Chloride 0.9% 1000 Ml IV 05/12/23 22:29 Infused .Q1H1M STA Infusion Sodium Chloride Confirm 05/12/23 21:49 Sodium Chloride 0.9% 1000 Ml Administered 05/12/23 21:50 Dose 1,000 mls @ ud .ROUTE .STK-MED ONE Insulin Human Lispro 4 unit 05/13/23 00:53 05/13/23 01:00 Insulin Lispro 1 Unit SQ 05/13/23 00:54 4 unit STAT ONE Administration Insulin Human Lispro Confirm 05/13/23 00:59 Insulin Lispro 1 Unit Administered 05/13/23 01:00 Dose 4 unit .ROUTE .STK-MED ONE Lab/Rad Data: Laboratory Result Diagrams 05/12/23 21:40 05/12/23 21:40 Laboratory Results 05/13/23 05/13/23 05/12/23 Range/Units 00:43 00:40 21:40 WBC (4.0-10.5) x10^3/uL RBC (4.1-5.4) x10^6/uL Hgb (12.0-16.0) g/dL Hct (35-47) % MCV (78-100) fL MCH (26-32) pg MCHC (32-36) g/dL RDW (11.5-14.0) % Plt Count (150-450) x10^3/uL MPV (7.5-11.0) fL Gran % (36.0-66.0) % Immature Gran % (Auto) (0.00-0.4) % Nucleat RBC Rel Count (0.00-0.1) % Eos # (Auto) (0-0.5) x10^3/uL Immature Gran # (Auto) (0.00-0.03) x10^3u/L Absolute Lymphs (auto) (1.0-4.6) x10^3/uL Absolute Monos (auto) (0.0-1.3) x10^3/uL Absolute Nucleated RBC (0.00-0.01) x10^3u/L Lymphocytes % (24.0-44.0) % Monocytes % (0.0-12.0) % Eosinophils % (0.00-5.0) % Basophils % (0.0-0.4) % Absolute Granulocytes (1.4-6.9) x10^3/uL Basophils # (0-0.4) x10^3/uL Sodium (137-145) mmol/L Potassium (3.5-5.1) mmol/L Chloride (98-107) mmol/L Carbon Dioxide (22-30) mmol/L Anion Gap (5-15) MEQ/L BUN (7-17) mg/dL Creatinine (0.52-1.04) mg/dL Estimated GFR ML/MIN Glucose (74-106) mg/dL POC Glucometer 330 H (74 to 106) mg/dL Calcium (8.4-10.2) mg/dL Total Bilirubin (0.2-1.3) mg/dL AST (14-36) U/L ALT (0-35) U/L Alkaline Phosphatase (38-126) U/L Troponin I 0.014 0.014 (0.000-0.034) ng/mL NT-Pro-B Natriuret Pep (<300) pg/mL Serum Total Protein (6.3-8.2) g/dL Albumin (3.5-5.0) g/dL 05/12/23 05/12/23 05/12/23 Range/Units 21:40 21:40 21:32 WBC 11.2 H (4.0-10.5) x10^3/uL RBC 4.37 (4.1-5.4) x10^6/uL Hgb 11.6 L (12.0-16.0) g/dL Hct 38.2 (35-47) % MCV 87.4 (78-100) fL MCH 26.5 (26-32) pg MCHC 30.4 L (32-36) g/dL RDW 16.4 H (11.5-14.0) % Plt Count 395 (150-450) x10^3/uL MPV 8.8 (7.5-11.0) fL Gran % 70.3 H (36.0-66.0) % Immature Gran % (Auto) 0.4 (0.00-0.4) % Nucleat RBC Rel Count 0.0 (0.00-0.1) % Eos # (Auto) 0.11 (0-0.5) x10^3/uL Immature Gran # (Auto) 0.04 H (0.00-0.03) x10^3u/L Absolute Lymphs (auto) 1.82 (1.0-4.6) x10^3/uL Absolute Monos (auto) 1.25 (0.0-1.3) x10^3/uL Absolute Nucleated RBC 0.00 (0.00-0.01) x10^3u/L Lymphocytes % 16.2 L (24.0-44.0) % Monocytes % 11.1 (0.0-12.0) % Eosinophils % 1.0 (0.00-5.0) % Basophils % 1.0 (0.0-0.4) % Absolute Granulocytes 7.89 H (1.4-6.9) x10^3/uL Basophils # 0.11 (0-0.4) x10^3/uL Sodium 133 L (137-145) mmol/L Potassium 3.9 (3.5-5.1) mmol/L Chloride 102 (98-107) mmol/L Carbon Dioxide 22 (22-30) mmol/L Anion Gap 13.4 (5-15) MEQ/L BUN 35 H (7-17) mg/dL Creatinine 0.94 (0.52-1.04) mg/dL Estimated GFR 69.0 ML/MIN Glucose 179 H (74-106) mg/dL POC Glucometer 165 H (74 to 106) mg/dL Calcium 10.2 (8.4-10.2) mg/dL Total Bilirubin 0.70 (0.2-1.3) mg/dL AST 21 (14-36) U/L ALT 15 (0-35) U/L Alkaline Phosphatase 138 H (38-126) U/L Troponin I (0.000-0.034) ng/mL NT-Pro-B Natriuret Pep 185 (<300) pg/mL Serum Total Protein 7.3 (6.3-8.2) g/dL Albumin 3.7 (3.5-5.0) g/dL - Progress Progress: improved, re-examined Air Movement: good Progress Note: 05/12/23 22:03 This patient's medical issue is 1 of moderate complexity. The level of complexity in the workup performed is based on review of the patient's past medical history, review the patient's medication list, reviewed patient's drug allergy list, history present illness and physical findings on examination. 05/12/23 23:09 The workup in this patient includes placement of intravenous line, infusion of normal saline solution, urinalysis, troponin level twelve-lead EKG CBC, CMP chest x-ray 05/12/23 23:10 The chest x-ray was interpreted by the radiologist and I reviewed the impression the impression states grossly stable left pleural effusion/thickening with COPD and left midlung calcified granuloma. There are no new cardiopulmonary abnormalities Blood Culture(s) Obtained: Yes Counseled pt/family regarding: lab results, diagnosis, rad results Medical Desision Making - Independent Historian Additional History obtained from: Spouse - Diagnostic Testing Diagnostic test were ordered, analyzed, and reviewed by me: Yes Radiological Interpretation: Reviewed by me, Teleradiologist Report - Departure Departure Disposition: Home Clinical Impression: Nonspecific chest pain, Hyperglycemia Condition: Stable Critical Care Time: No Referrals: LYUDMILA ARIAS MD [Primary Care Provider] - Follow up/PCP as directed Additional Instructions: Take your medication as prescribed. Drink plenty of fluids. Call your steel plate caulker on 05/15/2023 to make arranges for follow-up appointment for further evaluation and management
[2023-05-12 21:21] VITALS: TEMP 97.9
[2023-05-12] MEDS ORDERED: Sodium Chloride 0.9% 1000 ML 1,000 ML IV STA (21:29)
[2023-05-12] MEDS ORDERED: BABY ASPIRIN 81 MG CHEW PO ONE (21:29)
[2023-05-12 21:42] LABS: Absolute Neutrophil Ct (ANC) 7.89 x10^3/uL (1.4-6.9); Basophil (Absolute #) 0.11 x10^3/uL (0-0.4); Eosinophil (Absolute #) 0.11 x10^3/uL (0-0.5); Hematocrit 38.2 % (35-47); Hemoglobin 11.6 g/dL (12.0-16.0); IMMATURE GRAN # 0.04 x10^3u/L (0.00-0.03); IMMATURE GRAN % 0.4 % (0.00-0.4); Lymphocyte (Absolute #) 1.82 x10^3/uL (1.0-4.6); Lymphocytes % 16.2 % (24.0-44.0); Mean Cell Volume 87.4 fL (78-100); Mean Corpuscular Hemoglobin 26.5 pg (26-32); Mean Corpuscular Hgb Concent. 30.4 g/dL (32-36); Mean Platelet Volume 8.8 fL (7.5-11.0); Monocyte (Absolute #) 1.25 x10^3/uL (0.0-1.3); Monocytes % 11.1 % (0.0-12.0); Neutrophil % 70.3 % (36.0-66.0); Platelet Count 395 x10^3/uL (150-450); Red Blood Count 4.37 x10^6/uL (4.1-5.4); Red Cell Distribution Width 16.4 % (11.5-14.0); White Blood Count 11.2 x10^3/uL (4.0-10.5)
[2023-05-12] MEDS ORDERED: BABY ASPIRIN 81 MG CHEW ONE (21:49)
[2023-05-12] MEDS ORDERED: Sodium Chloride 0.9% 1000 ML 1,000 ML ONE (21:49)
[2023-05-12] MEDS ORDERED: NORCO 5/325 MG PO ONE (21:56)
[2023-05-12] MEDS ORDERED: NORCO 5/325 MG ONE (21:57)
[2023-05-12 22:09] LABS: ALBUMIN 3.7 g/dL (3.5-5.0); ANION GAP 13.4 MEQ/L (5-15); BILIRUBIN,TOTAL 0.7 mg/dL (0.2-1.3); Calcium 10.2 mg/dL (8.4-10.2); Creatinine 1 0.94 mg/dL (0.52-1.04); Potassium 3.9 mmol/L (3.5-5.1); Total Protein 7.3 g/dL (6.3-8.2)
--- NOTE | 2023-05-12 22:56 | XRAY ---
Indication: Chest pain. Comparison: May 11, 2023 Portable chest demonstrates grossly stable left base pleural effusion/thickening, COPD, and left midlung calcified granuloma. Heart not enlarged again with right Port-A-Cath. No new cardiopulmonary abnormalities.
[2023-05-13 00:03] VITALS: PULSE 98
[2023-05-13] MEDS ORDERED: HUMALOG SQ ONE (00:53)
[2023-05-13] MEDS ORDERED: HUMALOG ONE (00:59)
[2023-05-13 01:05] VITALS: BP 136/66; RESP 20; O2SAT 97
== END 2023-05-13 01:29 | disposition home or self-care (01) ==
LOC: ED 21:15
DX: R07.9 Chest pain, unspecified (principal); E11.65 Type 2 diabetes mellitus with hyperglycemia; R05.3 Chronic cough; M79.10 Myalgia, unspecified site; E11.22 Type 2 diabetes mellitus with diabetic chronic kidney disease; I12.9 Hypertensive chronic kidney disease with stage 1 through stage 4 chronic kidney disease, or unspecified chronic kidney disease; N18.9 Chronic kidney disease, unspecified; E78.5 Hyperlipidemia, unspecified; Z79.01 Long term (current) use of anticoagulants; Z79.4 Long term (current) use of insulin; Z79.899 Other long term (current) drug therapy; Z72.0 Tobacco use
CPT/HCPCS: 36000; 36415; 71045; 80053; 82947; 83880; 84484; 85025; 93005; 93041; 94760; 96372; 99284; J1642; J1817; A9270-GY

== ENCOUNTER 2023-07-09 09:21 | Observation (INO) | payer BC ==
[2023-07-09] MEDS ORDERED: Zofran 4 MG/2 ML VIAL ONE (09:55)
[2023-07-09] MEDS ORDERED: Sodium Chloride 0.9% 1000 ML 1,000 ML ONE ×2 (09:55→17:10)
[2023-07-09] MEDS: Zofran 4 MG/2 ML VIAL IV ONE (09:56)
[2023-07-09] MEDS: Sodium Chloride 0.9% 1000 ML 1,000 ML IV SCH ×2 (09:57→19:42)
[2023-07-09 10:01] LABS: Appearance Clear (Clear); Bacteria Few /HPF (None Seen); Bilirubin Negative (Negative); Blood Negative (Negative); Epithelial Cells None Seen /HPF (None Seen); Glucose, Urine 500 mg/dL (Negative); Hyaline Casts NONE SEEN /LPF (0-2); Ketones Negative (Negative); Leukocyte Esterase Negative (Negative); Nitrite Negative (Negative); Ph 6.5 (4.6-8.0); Protein,Urine Dip 100 (Negative); RBC 0-2 /HPF (0-5); WBC 0-2 /HPF (0-5)
[2023-07-09 10:14] LABS: Absolute Neutrophil Ct (ANC) 12.19 x10^3/uL (1.4-6.9); BASOPHIL % 0.5 % (0.0-0.4); Basophil (Absolute #) 0.07 x10^3/uL (0-0.4); Eosinophil (Absolute #) 0.45 x10^3/uL (0-0.5); Hematocrit 30.5 % (35-47); Hemoglobin 9.5 g/dL (12.0-16.0); IMMATURE GRAN # 0.07 x10^3u/L (0.00-0.03); IMMATURE GRAN % 0.5 % (0.00-0.4); Lymphocyte (Absolute #) 1.15 x10^3/uL (1.0-4.6); Lymphocytes % 7.7 % (24.0-44.0); Mean Cell Volume 85.9 fL (78-100); Mean Corpuscular Hemoglobin 26.8 pg (26-32); Mean Corpuscular Hgb Concent. 31.1 g/dL (32-36); Mean Platelet Volume 9.1 fL (7.5-11.0); Monocyte (Absolute #) 1.08 x10^3/uL (0.0-1.3); Monocytes % 7.2 % (0.0-12.0); Neutrophil % 81.1 % (36.0-66.0); Platelet Count 445 x10^3/uL (150-450); Red Blood Count 3.55 x10^6/uL (4.1-5.4)
[2023-07-09 10:15] LABS: ADD URINE CULTURE? NO (NO)
--- NOTE | 2023-07-09 10:25 | ERPHSYRPT ---
- History of Present Illness Time Seen by Provider: 07/09/23 09:41 Source: patient, family Exam Limitations: no limitations Patient Subjective Stated Complaint: C/O not feeling well for about 3 days. Low grade temperature, fatigue, diarrhea. Triage Nursing Assessment: Patient brought back to ER in a W/C. She is alert and oriented but slow to answer questions. Lips are dry. NO cough or SOB noted. Denies abdominal pain. No diarrhea today; last BM yesterday. Physician History: 62-year-old female with history of squamous cell lung cancer s/p resection and chemo currently on immunotherapy, tobacco abuse/COPD presented in the ER with 3 days history of generalized weakness fatigue and tiredness. Patient also reports subjective feeling of fever and chills. Has shortness of breath at her baseline with exertion which has not any worse than usual. Has chronic cough which is around baseline as well. Patient does report having intermittent diarrhea since yesterday with no significant abdominal pain. She feels dehy drated and drained out with aches and pains all over. Denies any urinary complaints. No known sick contact. Allergies/Adverse Reactions: orphenadrine citrate [From Norflex] Allergy (Intermediate, Verified 07/09/23 09:31) severe vomiting adhesive tape Allergy (Verified 07/09/23 09:31) levofloxacin [From Levaquin] Adverse Reaction (Mild, Verified 07/09/23 09:31) Nausea and Vomiting Home Medications: Cyclobenzaprine HCl 10 mg [Cyclobenzaprine 10 MG] 10 mg PO QID PRN 02/13/19 [History] Promethazine HCl 25 mg [Phenergan 25 mg] 25 mg PO QID PRN 07/17/21 [History] Prochlorperazine Maleate [Compazine] 10 mg PO BIDPRN PRN 08/30/22 [History] Insulin Aspart [NovoLOG Insulin] 4 unit SQ AC 10/08/22 [History] Insulin Glargine,Hum.rec.anlog [Ward Laughlin] 13 unit SQ QHS 11/28/22 [History] Metoprolol Tartrate 50 mg [Lopressor 50 MG] 50 mg PO DAILY 11/28/22 [History] Gabapentin [Neurontin ] 300 mg PO HS 01/01/23 [History] Mirtazapine 30 mg [Remeron 30 mg] 30 mg PO HS 01/01/23 [History] Hx Tetanus, Diphtheria Vaccination/Date Given: No Hx Influenza Vaccination/Date Given: Yes Hx Pneumococcal Vaccination/Date Given: Yes Immunizations Up to Date: Yes Travel Risk - International Travel Have you traveled outside of the country in past 3 weeks: No - Coronavirus Screening Are you exhibiting any of the following symptoms?: Yes Symptoms: Fever, Vomiting/Diarrhea, Headaches/Body Aches/Fatigue Close contact with a COVID-19 positive Pt in past 14-21 Days: No - Vaccine Status Have you recieved a Covid-19 vaccination: Yes Nutrition Tech: Moderna - Vaccination Dates Date of 2cond Vaccination (if applicable): 2020 - Review of Systems Constitutional: Fever, Chills, Fatigue, Weakness Eyes: No Symptoms Ears, Nose, & Throat: No Symptoms Respiratory: Cough, Dyspnea, Dyspnea on Exertion (COTO), Wheezing Cardiac: No Symptoms Abdominal/Gastrointestinal: Diarrhea Genitourinary Symptoms: No Symptoms Musculoskeletal: Myalgias Skin: No Symptoms Neurological: No Symptoms Psychological: No Symptoms Endocrine: No Symptoms Hematologic/Lymphatic: No Symptoms Immunological/Allergic: No Symptoms - Past Medical History Pertinent Past Medical History: Yes Neurological History: No Pertinent History ENT History: Cataracts Cardiac History: Coronary Artery Disease, High Cholesterol, Hypertension Respiratory History: COPD, Lung Cancer Endocrine Medical History: Diabetes Type II Musculoskeletal History: Fractures GI Medical History: GERD History: Renal Disease Psycho-Social History: Anxiety, Depression Female Reproductive Disorders: No Pertinent History Other Medical History: Previous left leg fx many years ago,rt wrist fx with cast. left lower lobe lung cancer. chemo - Past Surgical History Past Surgical History: Yes Neuro Surgical History: No Pertinent History Cardiac: Cardiac Catheterization, Cardiac Stent Respiratory: Lobectomy Gastrointestinal: Cholecystectomy Genitourinary: No Pertinent History Musculoskeletal: Other Female Surgical History: Tubal Ligation Other Surgical History: BUNONECTOMY. BACK SURGERY X2, right upper chest port placement. LL lung lobectomy - Social History Smoking Status: Current every day smoker How long have you smoked: 50 years Exposure to second hand smoke: Yes Alcohol Use: None Drug Use: none Patient Lives Alone: No Significant Family History: heart disease, diabetes, hypertension - Nursing Vital Signs Nursing Vital Signs: Initial Vital Signs Temperature 98.2 F 07/09/23 09:34 Pulse Rate 97 H 07/09/23 09:34 Respiratory Rate 19 07/09/23 09:34 Blood Pressure 126/76 07/09/23 09:34 O2 Sat by Pulse Oximetry 100 07/09/23 09:34 Pain Scale Pain Intensity 0 - Physical Exam General Appearance: no apparent distress, alert Eye Exam: PERRL/EOMI Ears, Nose, Throat Exam: normal ENT inspection Neck Exam: normal inspection, non-tender, supple, full range of motion Respiratory Exam: normal breath sounds, lungs clear Cardiovascular Exam: regular rate/rhythm, normal heart sounds Gastrointestinal/Abdomen Exam: soft, normal bowel sounds, No tenderness Back Exam: normal inspection, normal range of motion Extremity Exam: normal inspection, normal range of motion Neurologic Exam: alert, oriented x 3, cooperative, 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 Skin Exam: normal color SpO2 Interpretation: normal SpO2: 98 O2 Delivery: Room Air Ordered Tests: Active Orders 24 hr Category Date Time Status POCT Glucose Check STAT Care 07/09/23 10:11 Active ABDOMEN AND PELVIS W CONTRAST [CT] Stat Exams 07/09/23 12:26 Completed ABDOMEN AND PELVIS W/0 CONTRAS [CT] Stat Exams 07/09/23 10:22 Completed CHEST WITHOUT CONTRAST [CT] Stat Exams 07/09/23 10:23 Completed BLOOD CULTURE Stat Lab 07/09/23 10:22 Received CBC W DIFF Stat Lab 07/09/23 10:00 Completed CMP Stat Lab 07/09/23 10:00 Completed LIPASE Stat Lab 07/09/23 10:00 Completed Lactic Acid Stat Lab 07/09/23 09:44 Completed MAGNESIUM Stat Lab 07/09/23 10:00 Completed POCT GLUCOSE Stat Lab 07/09/23 10:07 Completed POCT GLUCOSE Stat Lab 07/09/23 13:14 Completed PROCALCITONIN Stat Lab 07/09/23 10:00 Completed UA W/RFX UR CULTURE Stat Lab 07/09/23 09:44 Completed Medication Summary Generic Name Dose Route Start Last Admin Trade Name Freq PRN Reason Stop Dose Admin Sodium Chloride 1,000 mls @ 999 mls/hr 07/09/23 10:00 07/09/23 10:59 Sodium Chloride 0.9% 1000 Ml IV 07/09/23 10:05 Infused .Q1H1M NISSA Infusion Discontinued Medications Generic Name Dose Route Start Last Admin Trade Name Petrona PRN Reason Stop Dose Admin Fentanyl Citrate 50 mcg 07/09/23 10:22 07/09/23 11:00 Fentanyl Citrate 100 Mcg/2 Ml* Vial IV 07/09/23 10:23 50 mcg STAT ONE Administration Fentanyl Citrate Confirm 07/09/23 10:58 Fentanyl Citrate 100 Mcg/2 Ml* Vial Administered 07/09/23 10:59 Dose 100 mcg .ROUTE .STK-MED ONE Piperacillin Sod/Tazobactam 100 mls @ 200 mls/hr 07/09/23 13:03 07/09/23 13:12 Sod 3.375 gm/ Sodium Chloride IV 07/09/23 13:32 200 mls/hr STAT ONE Administration Sodium Chloride Confirm 07/09/23 13:08 Sodium Chloride 100ml Mini-Bag Plus Administered 07/09/23 13:09 Dose 100 mls @ ud IV .STK-MED ONE Ondansetron HCl 4 mg 07/09/23 09:52 07/09/23 09:56 Ondansetron Hcl 4 Mg/2 Ml Vial IV 07/09/23 09:53 4 mg STAT ONE Administration Ondansetron HCl Confirm 07/09/23 09:55 Ondansetron Hcl 4 Mg/2 Ml Vial Administered 07/09/23 09:56 Dose 4 mg .ROUTE .STK-MED ONE Piperacillin Sod/Tazobactam Sod Confirm 07/09/23 13:08 Piperacillin/Tazobactam Sodium 3.375 Gm Vial Administered 07/09/23 13:09 Dose 3.375 gm IV .STK-MED ONE Lab/Rad Data: Laboratory Result Diagrams 07/09/23 10:00 07/09/23 10:00 Laboratory Results 07/09/23 07/09/23 07/09/23 Range/Units 13:14 10:07 10:00 WBC (4.0-10.5) x10^3/uL RBC (4.1-5.4) x10^6/uL Hgb (12.0-16.0) g/dL Hct (35-47) % MCV (78-100) fL MCH (26-32) pg MCHC (32-36) g/dL RDW (11.5-14.0) % Plt Count (150-450) x10^3/uL MPV (7.5-11.0) fL Gran % (36.0-66.0) % Immature Gran % (Auto) (0.00-0.4) % Nucleat RBC Rel Count (0.00-0.1) % Eos # (Auto) (0-0.5) x10^3/uL Immature Gran # (Auto) (0.00-0.03) x10^3u/L Absolute Lymphs (auto) (1.0-4.6) x10^3/uL Absolute Monos (auto) (0.0-1.3) x10^3/uL Absolute Nucleated RBC (0.00-0.01) x10^3u/L Lymphocytes % (24.0-44.0) % Monocytes % (0.0-12.0) % Eosinophils % (0.00-5.0) % Basophils % (0.0-0.4) % Absolute Granulocytes (1.4-6.9) x10^3/uL Basophils # (0-0.4) x10^3/uL Sodium (135-145) mmol/L Potassium (3.5-5.1) mmol/L Chloride (98-107) mmol/L Carbon Dioxide (22-30) mmol/L Anion Gap (5-15) MEQ/L BUN (7-17) mg/dL Creatinine (0.52-1.04) mg/dL Estimated GFR ML/MIN Glucose (74-106) mg/dL POC Glucometer 176 H 192 H (74 to 106) mg/dL Lactic Acid (0.4-2.0) Calcium (8.4-10.2) mg/dL Magnesium 2.0 (1.6-2.3) mg/dL Total Bilirubin (0.2-1.3) mg/dL AST (14-36) U/L ALT (0-35) U/L Alkaline Phosphatase (38-126) U/L Serum Total Protein (6.3-8.2) g/dL Albumin (3.5-5.0) g/dL Lipase 13 L (23-300) U/L Procalcitonin 5.810 H* (0.030-0.080) ng/mL Urine Color (Yellow) Urine Appearance (Clear) Urine pH (4.6-8.0) Ur Specific [place] (1.005-1.030) Urine Protein (Negative) Urine Glucose (UA) (Negative) mg/dL Urine Ketones (Negative) Urine Blood (Negative) Urine Nitrite (Negative) Urine Bilirubin (Negative) Urine Urobilinogen (0.2) mg/dL Ur Leukocyte Esterase (Negative) U Hyaline Cast (Auto) (0-2) /LPF Urine Microscopic RBC (0-5) /HPF Urine Microscopic WBC (0-5) /HPF Ur Epithelial Cells (None Seen) /HPF Urine Bacteria (None Seen) /HPF Urine Culture Reflexed (NO) Influenza Type A Ag (NEGATIVE) Influenza Type B Ag (NEGATIVE) RSV (PCR) (NEGATIVE) SARS-CoV-2 (PCR) (NEGATIVE) 07/09/23 07/09/23 07/09/23 Range/Units 10:00 10:00 10:00 WBC 15.0 H (4.0-10.5) x10^3/uL RBC 3.55 L (4.1-5.4) x10^6/uL Hgb 9.5 L (12.0-16.0) g/dL Hct 30.5 L (35-47) % MCV 85.9 (78-100) fL MCH 26.8 (26-32) pg MCHC 31.1 L (32-36) g/dL RDW 17.0 H (11.5-14.0) % Plt Count 445 (150-450) x10^3/uL MPV 9.1 (7.5-11.0) fL Gran % 81.1 H (36.0-66.0) % Immature Gran % (Auto) 0.5 H (0.00-0.4) % Nucleat RBC Rel Count 0.0 (0.00-0.1) % Eos # (Auto) 0.45 (0-0.5) x10^3/uL Immature Gran # (Auto) 0.07 H (0.00-0.03) x10^3u/L Absolute Lymphs (auto) 1.15 (1.0-4.6) x10^3/uL Absolute Monos (auto) 1.08 (0.0-1.3) x10^3/uL Absolute Nucleated RBC 0.00 (0.00-0.01) x10^3u/L Lymphocytes % 7.7 L (24.0-44.0) % Monocytes % 7.2 (0.0-12.0) % Eosinophils % 3.0 (0.00-5.0) % Basophils % 0.5 (0.0-0.4) % Absolute Granulocytes 12.19 H (1.4-6.9) x10^3/uL Basophils # 0.07 (0-0.4) x10^3/uL Sodium 135 (135-145) mmol/L Potassium 3.9 (3.5-5.1) mmol/L Chloride 103 (98-107) mmol/L Carbon Dioxide 27 (22-30) mmol/L Anion Gap 9.0 (5-15) MEQ/L BUN 29 H (7-17) mg/dL Creatinine 0.76 (0.52-1.04) mg/dL Estimated GFR 89.1 ML/MIN Glucose 185 H (74-106) mg/dL POC Glucometer (74 to 106) mg/dL Lactic Acid (0.4-2.0) Calcium 9.2 (8.4-10.2) mg/dL Magnesium (1.6-2.3) mg/dL Total Bilirubin 0.30 (0.2-1.3) mg/dL AST 18 (14-36) U/L ALT 16 (0-35) U/L Alkaline Phosphatase 148 H (38-126) U/L Serum Total Protein 6.4 (6.3-8.2) g/dL Albumin 3.1 L (3.5-5.0) g/dL Lipase (23-300) U/L Procalcitonin (0.030-0.080) ng/mL Urine Color (Yellow) Urine Appearance (Clear) Urine pH (4.6-8.0) Ur Specific [place] (1.005-1.030) Urine Protein (Negative) Urine Glucose (UA) (Negative) mg/dL Urine Ketones (Negative) Urine Blood (Negative) Urine Nitrite (Negative) Urine Bilirubin (Negative) Urine Urobilinogen (0.2) mg/dL Ur Leukocyte Esterase (Negative) U Hyaline Cast (Auto) (0-2) /LPF Urine Microscopic RBC (0-5) /HPF Urine Microscopic WBC (0-5) /HPF Ur Epithelial Cells (None Seen) /HPF Urine Bacteria (None Seen) /HPF Urine Culture Reflexed (NO) Influenza Type A Ag NEGATIVE (NEGATIVE) Influenza Type B Ag NEGATIVE (NEGATIVE) RSV (PCR) NEGATIVE (NEGATIVE) SARS-CoV-2 (PCR) NEGATIVE (NEGATIVE) 07/09/23 07/09/23 Range/Units 09:44 09:44 WBC (4.0-10.5) x10^3/uL RBC (4.1-5.4) x10^6/uL Hgb (12.0-16.0) g/dL Hct (35-47) % MCV (78-100) fL MCH (26-32) pg MCHC (32-36) g/dL RDW (11.5-14.0) % Plt Count (150-450) x10^3/uL MPV (7.5-11.0) fL Gran % (36.0-66.0) % Immature Gran % (Auto) (0.00-0.4) % Nucleat RBC Rel Count (0.00-0.1) % Eos # (Auto) (0-0.5) x10^3/uL Immature Gran # (Auto) (0.00-0.03) x10^3u/L Absolute Lymphs (auto) (1.0-4.6) x10^3/uL Absolute Monos (auto) (0.0-1.3) x10^3/uL Absolute Nucleated RBC (0.00-0.01) x10^3u/L Lymphocytes % (24.0-44.0) % Monocytes % (0.0-12.0) % Eosinophils % (0.00-5.0) % Basophils % (0.0-0.4) % Absolute Granulocytes (1.4-6.9) x10^3/uL Basophils # (0-0.4) x10^3/uL Sodium (135-145) mmol/L Potassium (3.5-5.1) mmol/L Chloride (98-107) mmol/L Carbon Dioxide (22-30) mmol/L Anion Gap (5-15) MEQ/L BUN (7-17) mg/dL Creatinine (0.52-1.04) mg/dL Estimated GFR ML/MIN Glucose (74-106) mg/dL POC Glucometer (74 to 106) mg/dL Lactic Acid 1.1 (0.4-2.0) Calcium (8.4-10.2) mg/dL Magnesium (1.6-2.3) mg/dL Total Bilirubin (0.2-1.3) mg/dL AST (14-36) U/L ALT (0-35) U/L Alkaline Phosphatase (38-126) U/L Serum Total Protein (6.3-8.2) g/dL Albumin (3.5-5.0) g/dL Lipase (23-300) U/L Procalcitonin (0.030-0.080) ng/mL Urine Color Yellow (Yellow) Urine Appearance Clear (Clear) Urine pH 6.5 (4.6-8.0) Ur Specific [place] 1.010 (1.005-1.030) Urine Protein 100 A (Negative) Urine Glucose (UA) 500 A (Negative) mg/dL Urine Ketones Negative (Negative) Urine Blood Negative (Negative) Urine Nitrite Negative (Negative) Urine Bilirubin Negative (Negative) Urine Urobilinogen 1.0 A (0.2) mg/dL Ur Leukocyte Esterase Negative (Negative) U Hyaline Cast (Auto) NONE SEEN (0-2) /LPF Urine Microscopic RBC 0-2 (0-5) /HPF Urine Microscopic WBC 0-2 (0-5) /HPF Ur Epithelial Cells None Seen (None Seen) /HPF Urine Bacteria Few A (None Seen) /HPF Urine Culture Reflexed NO (NO) Influenza Type A Ag (NEGATIVE) Influenza Type B Ag (NEGATIVE) RSV (PCR) (NEGATIVE) SARS-CoV-2 (PCR) (NEGATIVE) - Progress Progress: improved Progress Note: 07/09/23 15:31 62-year-old is evaluated for generalized weakness fatigue tiredness with subjective feeling of fever and chills. Patient is given fluid bolus, on reevaluation she is feeling better. She has aches and pains all over, given symptomatic treatment for that. She has a negative flu COVID and RSV. She has a white count of 15, procalcitonin of 5.8 and normal lactate. No definitive UTI . CT chest showed some pleural effusion but no consolidation. Patient CT abdomen pelvis showed dilated intrahepatic and CBD up to pancreas which is further evaluated with CT abdomen pelvis with contrast but did not show any obstruction. No other acute findings but multiple chronic findings. Blood cultures are obtained, she is given a dose of Zosyn. I am not sure the source of her infection causing elevation in procalcitonin. I have shared the results of workup with patient and family and plan of observation admission which they understand and agree. I have discussed with Dr. Morrison, reviewed history, workup and agreed with admission. Discussed with Dr.: Other (Dr. Izaguirre) Will see patient in: hospital (observation) Counseled pt/family regarding: lab results, diagnosis, rad results Medical Desision Making - Independent Historian Additional History obtained from: Spouse, Child - Discussion of managment Care discussed with:: hospitalist Reviewed:: Test results Agreed on:: Treatment plan, place in obs Will see patient: in hospital - Diagnostic Testing Diagnostic test were ordered, analyzed, and reviewed by me: Yes Radiological Interpretation: Reviewed by me, Teleradiologist Report - Risk of complications The pt has a high risk of morbidity or mortality based on: Decision regarding hospitilization or escalation of hosp level of care - Departure Departure Disposition: Observation Clinical Impression: Generalized weakness, Sepsis Condition: Stable Critical Care Time: No Referrals: LYUDMILA ARIAS MD [Primary Care Provider] - Follow up/PCP as directed
[2023-07-09 10:26] LABS: ALBUMIN 3.1 g/dL (3.5-5.0); BILIRUBIN,TOTAL 0.3 mg/dL (0.2-1.3); Calcium 9.2 mg/dL (8.4-10.2); Creatinine 1 0.76 mg/dL (0.52-1.04); EST GLOMERULAR FILTRATION RATE 89.1 ML/MIN; Potassium 3.9 mmol/L (3.5-5.1); Total Protein 6.4 g/dL (6.3-8.2)
[2023-07-09 10:50] LABS: INFLUENZA A NEGATIVE (NEGATIVE); INFLUENZA B NEGATIVE (NEGATIVE); RESPIRATORY SYNCTIAL VIRUS NEGATIVE (NEGATIVE); SARS-CoV-2 Xpert Express NEGATIVE (NEGATIVE)
[2023-07-09] MEDS ORDERED: SUBLIMAZE 100 MCG/2 ML ONE (10:58)
[2023-07-09] MEDS: SUBLIMAZE 100 MCG/2 ML IV ONE (11:00)
[2023-07-09 11:13] LABS: PROCALCITONIN 5.81 ng/mL (0.030-0.080)
--- NOTE | 2023-07-09 11:34 | XRAY ---
CLINICAL HISTORY: cough/weakness, ca lung TECHNIQUE: Contiguous 3.[address] images of the chest were acquired without administration of intravenous contrast. Coronal and sagittal reconstruction were obtained.CTD 14.47 DLP 249.58 mGy cm COMPARISON: None. FINDINGS: CVL in situ. Decreased volume of left lung with mediastinal shift to the left side. Both lungs show distorted architecture with biapical fibrotic changes more on the left side, right lower lobe extensive reticulation, thickened interlobular septa, honeycombing, fine subpleural cyst formation, ground glass opacification and mild traction bronchiectasis, findings highly suggestive of interstitial lung disease( usual interstitial pneumonia versus non-specific interstitial pneumonia). Fibrotic changes and 7 mm calcified granuloma are noted in the left lower lobe. No evidence of pulmonary consolidationor masses. Enlarged precarinal lymph nodes, averaging 1.4 cm. Moderate left pleural effusion is noted.Clear right costophrenic recess. IMPRESSION: 1. Features suggestive of interstitial lung disease (possibly UIP). 2. No pulmonary consolidationor masses. 3. Middle mediastinal lymphadenopathy. Electronically Signed by: Kishore Al MD. (07/09/2023 11:30:14 EDT)
--- NOTE | 2023-07-09 11:48 | XRAY ---
CLINICAL HISTORY: diarrhea TECHNIQUE: CT of the abdomen and pelvis was performed with axial images as well as sagittal and coronal reconstruction images without intravenous contrast. COMPARISON: None. FINDINGS: The liver is average in size with no definite focal lesions by non-contrast criteria. The main hepatic biliary ducts as well as the common bile duct are dilated to the level of the pancreas reaching 20 mm in diameter. The gall bladder is not visualized (surgically removed). The pancreas couldn't be properly assessed in this non-contrast limited study. No definite gross adrenal lesions. A few small splenic calcifications are noted. The left kidney is average in size. No calculi or hydronephrosis seen. The right kidney is relatively small in size. Few calcifications are seen at the lower pole (mostly cortical rather being calculi). No hydronephrosis noted. The small and large bowel loops are of average caliber. Appendix is not clearly visualized. The bladder is unremarkable with no stones. No gross lesions are seen in the pelvic organs. Atherosclerotic calcifications of the aorta and iliac vessels. Spondylodegenerative changes noted at L3-L4 through L5-S1 levels. IMPRESSION: 1. Dilated main hepatic biliary ducts and common bile duct to the level of the pancreas reaching 20 mm in diameter. Further evaluation with contrast-enhanced study is highly advised to evaluate for the possibility of neoplastic process. 2. Relatively small right kidney with few lower polar calcifications, not clear whether being cortical calcifications or calculi. 3. Spondylodegenerative changes noted at L3-L4 through L5-S1 levels. Limited study due to beam hardening image artifacts Electronically Signed by: Kishore Al MD. (07/09/2023 11:43:19 EDT)
[2023-07-09] MEDS ORDERED: PIPERACILLIN/TAZOBACTAM IV ONE ×3 (13:08→23:09)
[2023-07-09] MEDS ORDERED: Sodium Chloride 100ML MINI-BAG PLUS 100 ML IV ONE ×3 (13:08→23:09)
[2023-07-09] MEDS: PIPERACILLIN/TAZOBACTAM 3.375 GM in Sodium Chloride 100ML MINI-BAG PLUS 100 ML IV ONE (13:12)
--- NOTE | 2023-07-09 15:06 | XRAY ---
CLINICAL HISTORY: diarrhea , TECHNIQUE: CT of the abdomen and pelvis was performed with axial images as well as sagittal and coronal reconstruction images with intravenous contrast. Images were reviewed in soft tissue and bone window settings COMPARISON: Compared with the prior study dated 07/09/2023. FINDINGS: Included lung shows Decreased volume of left lung with a mediastinal shift to the left side. Mild left-sided pleural effusion tracking along the left lateral chest wall. Fibrosis is also seen involving the lingular segment of the left lower lobe. Evidence of right lower lobe posterior basal segment ground glass opacification along with fibrotic changes likely suggestive of changes related to interstitial lung disease. A small pulmonary nodule measuring 2.79 mm is seen in the posterior basal segment of the right lower lobe SE 2 IM #8. Another perifissural nodule is seen in the right middle lobe measuring 4.16 mm SE 2 IM #4. A calcified granuloma measuring 6.6 mm is seen in the superior lingular segment SE 2 IM #1. Fibrosis is seen in the medial segment of the right middle lobe. The liver is normal in size measuring 15.4 cm. No focal lesion seen. The intra hepatic ducts appears mildly dilated. There is marked dilatation of main hepatic duct as well as the common bilae duct uptill distal end measuring 2.0 cm. The gall bladder is not visualized (status post cholecystectomy). The pancreas appears unremarkable. No dilatation of the pancreatic duct seen. No definite gross adrenal lesions. Small calcified granulomas are seen in the spleen. The left kidney is average in size. No calculi or hydronephrosis seen. Small left kidney lower pole well defined cyst is seen measuring about 1.2 x 1 cm. The right kidney is relatively small in size. Multiple cortical calcifications are seen at the lower pole cortex of the right kidney, largest one measuring 4.69 cm, another one measures 2.6 mm. (mostly cortical rather being calculi). No hydronephrosis noted. The small and large bowel loops are of average caliber. Fecal loaded large bowel loops seen. Appendix is not clearly visualized. The bladder is unremarkable with no stones. No gross lesions are seen in the pelvic organs. Atherosclerotic calcifications of the aorta and iliac vessels. Spondylodegenerative changes noted at L3-L4 through L5-S1 levels. IMPRESSION: 1. Redemonstration of dilated intra hepatic, common hepatic and common bile duct uptill its distal end. 2. Small calcified granulomas are seen in the spleen. 3. Relatively small-sized right kidney with multiple cortical calcifications at the inferior pole. A smell left kidney lower pole simple cyst. 4. Decreased volume of left lung with mediastinal shift to the left side. 5. Mild left-sided pleural effusion tracking along the left lateral chest wall. 6. Multiple bilateral pulmonary nodules as described. Follow up with LDCT is recommended. 7. A calcified granuloma measuring 6.6 mm is seen in the superior lingular segment SE 2 IM #1. Benign. 8. Fibrosis with ground glass opacification is seen in right lower lobe. Fibrosis is also seen in the right middle and lingular segment likely related to interstitial lung disease changes. 9. Spondylodegenerative changes noted at L3-L4 through L5-S1 levels. In comparison with the prior scan Electronically Signed by: Kishore Al MD. (07/09/2023 15:02:51 EDT)
--- NOTE | 2023-07-09 16:27 | PCM.HP ---
History of Present Illness - Chief Complaint Chief Complaint: sepsis/weakness Date: 07/09/23 History of Present Illness: Ms. Nowak is a 62 year old female with a pmhx ov DMII, CAD (Stent placement), HLD, HTN, GERD, Depression, COPD, LLL lung cancer s/p resection/chemo, currently on immunotherapy (Tecentriq), and current every day smoker who presents 07/09/23 with a four day history of generalized weakness. She reports that she was having nausea, diarrhea, and a low grade temp of 99, but this resolved this past Monday. She receives immounotherapy Tecentriq twice a month with Dr. Lynn twice monthly, due this coming Monday. In ED, vitals unremarkable. CT findings with mild left pleural effusion.Features suggestive of interstitial lung disease (possibly usual interstitial pneumonia). No consolidation or masses.CT abdomen pelvis showed dilated intrahepatic and CBD up to pancreas which is further evaluated with CT abdomen pelvis with contrast but did not show any obstruction. No other acute findings but multiple chronic findings. Lab findings with leukocytosis WBC at 15.0, normocytic anemia with hgb at 9.5, Bun at 29, alk phos at 148, procal at 5.810. Urine and respiratory panel negative. Blood and urine cultures obtained and pending. Zosyn started, fluid bolus administered. Patient admitted with Sepsis. - Review of Systems Constitutional: Weakness Eyes: No Symptoms Ears, Nose, & Throat: No Symptoms Respiratory: Cough (chronic) Cardiac: No Symptoms Abdominal/Gastrointestinal: No Symptoms Genitourinary Symptoms: No Symptoms Musculoskeletal: No Symptoms Skin: No Symptoms Neurological: No Symptoms Psychological: No Symptoms Endocrine: No Symptoms Hematologic/Lymphatic: No Symptoms Immunological/Allergic: No Symptoms Medications & Allergies Home Medications: Home Medication List Cyclobenzaprine HCl 10 mg [Cyclobenzaprine 10 MG] 10 mg PO QID PRN 02/13/19 [History Confirmed 07/09/23] Promethazine HCl 25 mg [Phenergan 25 mg] 25 mg PO QID PRN 07/17/21 [History Confirmed 07/09/23] Prochlorperazine Maleate [Compazine] 10 mg PO BIDPRN PRN 08/30/22 [History Confirmed 07/09/23] Insulin Aspart [NovoLOG Insulin] 4 unit SQ AC 10/08/22 [History Confirmed 07/09/23] Insulin Glargine,Hum.rec.anlog [Ward Sadlerstevelilia] 13 unit SQ QHS 11/28/22 [History Confirmed 07/09/23] Metoprolol Tartrate 50 mg [Lopressor 50 MG] 50 mg PO DAILY 11/28/22 [History Confirmed 07/09/23] Gabapentin [Neurontin ] 300 mg PO HS 01/01/23 [History Confirmed 07/09/23] Mirtazapine 30 mg [Remeron 30 mg] 30 mg PO HS 01/01/23 [History Confirmed 07/09/23] Allergies/Adverse Reactions: Allergies Allergy/AdvReac Type Severity Reaction Status Date / Time orphenadrine citrate Allergy Intermediate Verified 07/09/23 09:31 [From Norflex] adhesive tape Allergy Verified 07/09/23 09:31 levofloxacin [From Levaquin] AdvReac Mild Nausea and Verified 07/09/23 09:31 Vomiting - Past Medical History Past Medical History: Yes Neurological History: No Pertinent History ENT History: Cataracts Cardiac History: Coronary Artery Disease, High Cholesterol, Hypertension Respiratory History: COPD, Lung Cancer Endocrine Medical History: Diabetes Type II Musculoskelatal History: Fractures GI Medical History: GERD History: Renal Disease Pyscho-Social History: Anxiety, Depression Reproductive Disorders: No Pertinent History Comment: Previous left leg fx many years ago,rt wrist fx with cast. left lower lobe lung cancer. chemo - Past Surgical History Past Surgical History: Yes Neuro Surgical History: No Pertinent History Cardiac History: Cardiac Catheterization, Cardiac Stent Respiratory Surgery: Lobectomy GI Surgical History: Cholecystectomy Genitourinary Surgical Hx: No Pertinent History Musculskeletal Surgical Hx: Other Female Surgical History: Tubal Ligation Other Surgical History: BUNONECTOMY. BACK SURGERY X2, right upper chest port placement. LL lung lobectomy Significant Family History: heart disease, diabetes, hypertension - Social History Smoking Status: Current every day smoker How long have you smoked: 50 years Exposure to second hand smoke: Yes Alcohol: Occasionally Drug Use: none - Physical Exam Vital Signs: Vital Signs - 24 hr Temp Pulse Resp BP BP Pulse Ox 07/09/23 16:00 100 H 33 H 114/70 93 L 03/10/24 15:55 101 H 17 139/85 92 L 07/09/23 15:34 98 07/09/23 15:00 98 H 0 L 119/65 93 L 07/09/23 14:30 99 H 10 L 114/67 94 L 07/09/23 14:00 95 H 21 123/68 96 07/09/23 13:30 95 H 23 129/70 97 07/09/23 13:04 99 H 27 H 132/68 94 L 07/09/23 12:30 102 H 15 125/68 07/09/23 12:00 104 H 21 133/65 99 07/09/23 11:30 102 H 25 H 135/71 98 07/09/23 11:00 100 H 26 H 130/72 96 07/09/23 10:00 99 H 25 H 134/74 95 07/09/23 09:34 98.2 F 91 H 30 H 126/76 126/76 98 General Appearance: no apparent distress Neurologic Exam: alert, oriented x 3, cooperative Eye Exam: PERRL/EOMI Ears, Nose, Throat Exam: normal ENT inspection Neck Exam: normal inspection Respiratory Exam: diminished breath sounds Cardiovascular Exam: regular rate/rhythm, normal heart sounds Pelvic Exam: not done Rectal Exam: deferred Back Exam: normal inspection Extremity Exam: normal inspection Skin Exam: pale Results - Labs Lab/Micro Results: Lab Results-Last 24 Hours 07/09/23 07/09/23 07/09/23 Range/Units 09:44 09:44 10:00 WBC 15.0 H (4.0-10.5) x10^3/uL RBC 3.55 L (4.1-5.4) x10^6/uL Hgb 9.5 L (12.0-16.0) g/dL Hct 30.5 L (35-47) % MCV 85.9 (78-100) fL MCH 26.8 (26-32) pg MCHC 31.1 L (32-36) g/dL RDW 17.0 H (11.5-14.0) % Plt Count 445 (150-450) x10^3/uL MPV 9.1 (7.5-11.0) fL Gran % 81.1 H (36.0-66.0) % Immature Gran % (Auto) 0.5 H (0.00-0.4) % Nucleat RBC Rel Count 0.0 (0.00-0.1) % Eos # (Auto) 0.45 (0-0.5) x10^3/uL Immature Gran # (Auto) 0.07 H (0.00-0.03) x10^3u/L Absolute Lymphs (auto) 1.15 (1.0-4.6) x10^3/uL Absolute Monos (auto) 1.08 (0.0-1.3) x10^3/uL Absolute Nucleated RBC 0.00 (0.00-0.01) x10^3u/L Lymphocytes % 7.7 L (24.0-44.0) % Monocytes % 7.2 (0.0-12.0) % Eosinophils % 3.0 (0.00-5.0) % Basophils % 0.5 (0.0-0.4) % Absolute Granulocytes 12.19 H (1.4-6.9) x10^3/uL Basophils # 0.07 (0-0.4) x10^3/uL Sodium (135-145) mmol/L Potassium (3.5-5.1) mmol/L Chloride (98-107) mmol/L Carbon Dioxide (22-30) mmol/L Anion Gap (5-15) MEQ/L BUN (7-17) mg/dL Creatinine (0.52-1.04) mg/dL Estimated GFR ML/MIN Glucose (74-106) mg/dL POC Glucometer (74 to 106) mg/dL Lactic Acid 1.1 (0.4-2.0) Calcium (8.4-10.2) mg/dL Magnesium (1.6-2.3) mg/dL Total Bilirubin (0.2-1.3) mg/dL AST (14-36) U/L ALT (0-35) U/L Alkaline Phosphatase (38-126) U/L Serum Total Protein (6.3-8.2) g/dL Albumin (3.5-5.0) g/dL Lipase (23-300) U/L Procalcitonin (0.030-0.080) ng/mL Urine Color Yellow (Yellow) Urine Appearance Clear (Clear) Urine pH 6.5 (4.6-8.0) Ur Specific Patterson 1.010 (1.005-1.030) Urine Protein 100 A (Negative) Urine Glucose (UA) 500 A (Negative) mg/dL Urine Ketones Negative (Negative) Urine Blood Negative (Negative) Urine Nitrite Negative (Negative) Urine Bilirubin Negative (Negative) Urine Urobilinogen 1.0 A (0.2) mg/dL Ur Leukocyte Esterase Negative (Negative) U Hyaline Cast (Auto) NONE SEEN (0-2) /LPF Urine Microscopic RBC 0-2 (0-5) /HPF Urine Microscopic WBC 0-2 (0-5) /HPF Ur Epithelial Cells None Seen (None Seen) /HPF Urine Bacteria Few A (None Seen) /HPF Urine Culture Reflexed NO (NO) Influenza Type A Ag (NEGATIVE) Influenza Type B Ag (NEGATIVE) RSV (PCR) (NEGATIVE) SARS-CoV-2 (PCR) (NEGATIVE) 07/09/23 07/09/23 07/09/23 Range/Units 10:00 10:00 10:00 WBC (4.0-10.5) x10^3/uL RBC (4.1-5.4) x10^6/uL Hgb (12.0-16.0) g/dL Hct (35-47) % MCV (78-100) fL MCH (26-32) pg MCHC (32-36) g/dL RDW (11.5-14.0) % Plt Count (150-450) x10^3/uL MPV (7.5-11.0) fL Gran % (36.0-66.0) % Immature Gran % (Auto) (0.00-0.4) % Nucleat RBC Rel Count (0.00-0.1) % Eos # (Auto) (0-0.5) x10^3/uL Immature Gran # (Auto) (0.00-0.03) x10^3u/L Absolute Lymphs (auto) (1.0-4.6) x10^3/uL Absolute Monos (auto) (0.0-1.3) x10^3/uL Absolute Nucleated RBC (0.00-0.01) x10^3u/L Lymphocytes % (24.0-44.0) % Monocytes % (0.0-12.0) % Eosinophils % (0.00-5.0) % Basophils % (0.0-0.4) % Absolute Granulocytes (1.4-6.9) x10^3/uL Basophils # (0-0.4) x10^3/uL Sodium 135 (135-145) mmol/L Potassium 3.9 (3.5-5.1) mmol/L Chloride 103 (98-107) mmol/L Carbon Dioxide 27 (22-30) mmol/L Anion Gap 9.0 (5-15) MEQ/L BUN 29 H (7-17) mg/dL Creatinine 0.76 (0.52-1.04) mg/dL Estimated GFR 89.1 ML/MIN Glucose 185 H (74-106) mg/dL POC Glucometer (74 to 106) mg/dL Lactic Acid (0.4-2.0) Calcium 9.2 (8.4-10.2) mg/dL Magnesium 2.0 (1.6-2.3) mg/dL Total Bilirubin 0.30 (0.2-1.3) mg/dL AST 18 (14-36) U/L ALT 16 (0-35) U/L Alkaline Phosphatase 148 H (38-126) U/L Serum Total Protein 6.4 (6.3-8.2) g/dL Albumin 3.1 L (3.5-5.0) g/dL Lipase 13 L (23-300) U/L Procalcitonin 5.810 H* (0.030-0.080) ng/mL Urine Color (Yellow) Urine Appearance (Clear) Urine pH (4.6-8.0) Ur Specific Patterson (1.005-1.030) Urine Protein (Negative) Urine Glucose (UA) (Negative) mg/dL Urine Ketones (Negative) Urine Blood (Negative) Urine Nitrite (Negative) Urine Bilirubin (Negative) Urine Urobilinogen (0.2) mg/dL Ur Leukocyte Esterase (Negative) U Hyaline Cast (Auto) (0-2) /LPF Urine Microscopic RBC (0-5) /HPF Urine Microscopic WBC (0-5) /HPF Ur Epithelial Cells (None Seen) /HPF Urine Bacteria (None Seen) /HPF Urine Culture Reflexed (NO) Influenza Type A Ag NEGATIVE (NEGATIVE) Influenza Type B Ag NEGATIVE (NEGATIVE) RSV (PCR) NEGATIVE (NEGATIVE) SARS-CoV-2 (PCR) NEGATIVE (NEGATIVE) 07/09/23 07/09/23 Range/Units 10:07 13:14 WBC (4.0-10.5) x10^3/uL RBC (4.1-5.4) x10^6/uL Hgb (12.0-16.0) g/dL Hct (35-47) % MCV (78-100) fL MCH (26-32) pg MCHC (32-36) g/dL RDW (11.5-14.0) % Plt Count (150-450) x10^3/uL MPV (7.5-11.0) fL Gran % (36.0-66.0) % Immature Gran % (Auto) (0.00-0.4) % Nucleat RBC Rel Count (0.00-0.1) % Eos # (Auto) (0-0.5) x10^3/uL Immature Gran # (Auto) (0.00-0.03) x10^3u/L Absolute Lymphs (auto) (1.0-4.6) x10^3/uL Absolute Monos (auto) (0.0-1.3) x10^3/uL Absolute Nucleated RBC (0.00-0.01) x10^3u/L Lymphocytes % (24.0-44.0) % Monocytes % (0.0-12.0) % Eosinophils % (0.00-5.0) % Basophils % (0.0-0.4) % Absolute Granulocytes (1.4-6.9) x10^3/uL Basophils # (0-0.4) x10^3/uL Sodium (135-145) mmol/L Potassium (3.5-5.1) mmol/L Chloride (98-107) mmol/L Carbon Dioxide (22-30) mmol/L Anion Gap (5-15) MEQ/L BUN (7-17) mg/dL Creatinine (0.52-1.04) mg/dL Estimated GFR ML/MIN Glucose (74-106) mg/dL POC Glucometer 192 H 176 H (74 to 106) mg/dL Lactic Acid (0.4-2.0) Calcium (8.4-10.2) mg/dL Magnesium (1.6-2.3) mg/dL Total Bilirubin (0.2-1.3) mg/dL AST (14-36) U/L ALT (0-35) U/L Alkaline Phosphatase (38-126) U/L Serum Total Protein (6.3-8.2) g/dL Albumin (3.5-5.0) g/dL Lipase (23-300) U/L Procalcitonin (0.030-0.080) ng/mL Urine Color (Yellow) Urine Appearance (Clear) Urine pH (4.6-8.0) Ur Specific Patterson (1.005-1.030) Urine Protein (Negative) Urine Glucose (UA) (Negative) mg/dL Urine Ketones (Negative) Urine Blood (Negative) Urine Nitrite (Negative) Urine Bilirubin (Negative) Urine Urobilinogen (0.2) mg/dL Ur Leukocyte Esterase (Negative) U Hyaline Cast (Auto) (0-2) /LPF Urine Microscopic RBC (0-5) /HPF Urine Microscopic WBC (0-5) /HPF Ur Epithelial Cells (None Seen) /HPF Urine Bacteria (None Seen) /HPF Urine Culture Reflexed (NO) Influenza Type A Ag (NEGATIVE) Influenza Type B Ag (NEGATIVE) RSV (PCR) (NEGATIVE) SARS-CoV-2 (PCR) (NEGATIVE) Accuchecks Date 07/09/23 Date 07/09/23 Date 07/09/23 Time 13:14 Time 10:12 Time 10:05 - Radiology Impressions Radiology Exams & Impressions: Radiology Procedures Category Date Time Status ABDOMEN AND PELVIS W CONTRAST [CT] Stat Exams 07/09/23 12:26 Completed ABDOMEN AND PELVIS W/0 CONTRAS [CT] Stat Exams 07/09/23 10:22 Completed CHEST WITHOUT CONTRAST [CT] Stat Exams 07/09/23 10:23 Completed - Other Procedures and Tests Respiratory Therapy 07/09/23 16:20 Oxygen Nasal Cannula 2 lpm Respiratory Therapy Consult ONCE Assessment/Plan (1) Sepsis Current Visit: Yes Status: Acute Qualifiers: Sepsis acute organ dysfunction status: without acute organ dysfunction Assessment & Plan: -Unknown source of infection -CT findings with mild left pleural effusion.Features suggestive of interstitial lung disease (possibly usual interstitial pneumonia). No consolidation or mass es.CT abdomen pelvis showed dilated intrahepatic and CBD up to pancreas which is further evaluated with CT abdomen pelvis with contrast but did not show any obstruction. -UA negative -Blood culture obtained and pending -Lactic acid WNL, procal elevated at 5.810 (of note patient does have lung cancer, PCT elevation may be secondary to this) -Zosyn initiated in ED, will continue for now -IVF bolus 1L received in ED, continue NS @ 125 ml/hr-CBC, CMP, Mg, Phos in am- continue appropriate baseline home medications-PT/OT eval -tx-DVT prophylaxis- pt allergic to lovenox - bilateral SCD -Will admin vasopressors is hypotensive after IV admin (MAP <65 or SBP <90). (2) Generalized weakness Current Visit: Yes Status: Acute Assessment & Plan: -PT/OT eval -IVF Code(s): R53.1 - WEAKNESS (3) Diabetes mellitus Current Visit: Yes Status: Acute Assessment & Plan: -ADA -SSI -A1c Code(s): E11.9 - TYPE 2 DIABETES MELLITUS WITHOUT COMPLICATIONS (4) HTN (hypertension) Current Visit: Yes Status: Acute Assessment & Plan: -stable, continue appropriate baseline home meds, adjust as needed Code(s): I10 - ESSENTIAL (PRIMARY) HYPERTENSION (5) HLD (hyperlipidemia) Current Visit: Yes Status: Acute Assessment & Plan: -continue home meds Code(s): E78.5 - HYPERLIPIDEMIA, UNSPECIFIED (6) Smoker Current Visit: No Status: Acute Assessment & Plan: -Nicotine patch -Advised cessation Code(s): F17.200 - NICOTINE DEPENDENCE, UNSPECIFIED, UNCOMPLICATED (7) COPD (chronic obstructive pulmonary disease) Current Visit: No Status: Chronic Qualifiers: Assessment & Plan: -Supplemental oxygen with goal spo2 88-92% -RT consult -NEBS/INH
[2023-07-09] MEDS ORDERED: TYLENOL 325 MG PO PRN (16:54)
[2023-07-09] MEDS ORDERED: Zofran 4 MG/2 ML VIAL IV PRN (16:54)
[2023-07-09] MEDS ORDERED: Cyclobenzaprine 10 MG PO PRN (17:10)
[2023-07-09] MEDS: NORCO 5/325 MG PO PRN (18:26)
[2023-07-09] MEDS: Nicoderm CQ 21 MG TOP SCH (18:29)
[2023-07-09] MEDS: Lasix 40 MG/4 ML IV ONE (18:29)
[2023-07-09] MEDS: PIPERACILLIN/TAZOBACTAM 3.375 GM in Sodium Chloride 100ML MINI-BAG PLUS 100 ML IV SCH (18:29)
[2023-07-09] MEDS ORDERED: Lantus Insulin ONE (21:54)
[2023-07-09] MEDS ORDERED: NON-FORMULARY ITEM (Insulin Glargine,Hum.Rec.Anlog [Toujeo Solostar] 300 UNIT/ML Insuln.Pe SQ SCH (22:00)
[2023-07-09] MEDS: REMERON 30 MG PO SCH (22:02)
[2023-07-09] MEDS: INSULIN GLARGINE HUM REC ANLOG 10 UNIT SQ SCH (22:02)
[2023-07-09] MEDS: NEURONTIN PO SCH (22:02)
[2023-07-09] MEDS: HUMALOG SQ PRN (22:02)
[2023-07-10 04:42] VITALS: TEMP 97.8
[2023-07-10 04:46] LABS: Absolute Neutrophil Ct (ANC) 7.54 x10^3/uL (1.4-6.9); BASOPHIL % 0.5 % (0.0-0.4); Basophil (Absolute #) 0.05 x10^3/uL (0-0.4); Eosinophil % 5.9 % (0.00-5.0); Eosinophil (Absolute #) 0.57 x10^3/uL (0-0.5); Hematocrit 28.8 % (35-47); Hemoglobin 9.2 g/dL (12.0-16.0); IMMATURE GRAN # 0.07 x10^3u/L (0.00-0.03); IMMATURE GRAN % 0.7 % (0.00-0.4); Lymphocyte (Absolute #) 0.76 x10^3/uL (1.0-4.6); Lymphocytes % 7.9 % (24.0-44.0); Mean Cell Volume 86.5 fL (78-100); Mean Corpuscular Hemoglobin 27.6 pg (26-32); Mean Corpuscular Hgb Concent. 31.9 g/dL (32-36); Mean Platelet Volume 9.3 fL (7.5-11.0); Monocyte (Absolute #) 0.67 x10^3/uL (0.0-1.3); Monocytes % 6.9 % (0.0-12.0); Neutrophil % 78.1 % (36.0-66.0); Platelet Count 371 x10^3/uL (150-450); Red Blood Count 3.33 x10^6/uL (4.1-5.4); Red Cell Distribution Width 16.9 % (11.5-14.0); White Blood Count 9.7 x10^3/uL (4.0-10.5)
[2023-07-10 05:04] LABS: ALBUMIN 2.9 g/dL (3.5-5.0); ANION GAP 9.5 MEQ/L (5-15); BILIRUBIN,TOTAL 0.1 mg/dL (0.2-1.3); Calcium 8.7 mg/dL (8.4-10.2); Creatinine 1 0.9 mg/dL (0.52-1.04); EST GLOMERULAR FILTRATION RATE 72.7 ML/MIN; Potassium 3.8 mmol/L (3.5-5.1); Total Protein 6.1 g/dL (6.3-8.2)
[2023-07-10] MEDS ORDERED: PIPERACILLIN/TAZOBACTAM IV ONE (05:58)
[2023-07-10] MEDS ORDERED: Sodium Chloride 100ML MINI-BAG PLUS 100 ML IV ONE (05:59)
[2023-07-10 06:56] VITALS: O2SAT 97
[2023-07-10 07:09] VITALS: BP 148/74; PULSE 89; RESP 18
[2023-07-10] MEDS ORDERED: INSULIN ASPART 2 UNIT SQ SCH (07:30)
[2023-07-10] MEDS ORDERED: NON-FORMULARY ITEM (Insulin Aspart** [Novolog Insulin**] 1 UNIT Unit) SQ SCH (07:30)
[2023-07-10] MEDS: HUMALOG SQ SCH (08:07)
--- NOTE | 2023-07-10 08:48 | PCM.DS ---
Discharge Summary Date of Admission: 07/09/23 16:17 Date of Discharge: 07/10/23 Admitting Physician: BRIDGET HDZ MD Primary Care Provider: JUANA,LYUDMILA Allergies Allergies orphenadrine citrate [From Norflex] Allergy (Intermediate, Verified 07/09/23 09:31) severe vomiting adhesive tape Allergy (Verified 07/09/23 09:31) levofloxacin [From Levaquin] Adverse Reaction (Mild, Verified 07/09/23 09:31) Nausea and Vomiting Hospital Summary - Hospital Course Hospital Course: Ms. Nowak is a 62 year old female with a pmhx ov DMII, CAD (Stent placement), HLD, HTN, GERD, Depression, COPD, LLL lung cancer s/p resection/chemo, currently on immunotherapy (Tecentriq), and current every day smoker who presents 07/09/23 with a four day history of generalized weakness. She reports that she was having nausea, diarrhea, and a low grade temp of 99, but this resolved this past Monday. She receives immounotherapy Tecentriq twice a month with Dr. Malcolm nina twice monthly, due this coming Monday. In ED, vitals unremarkable. CT findings with mild left pleural effusion.Features suggestive of interstitial lung disease (possibly usual interstitial pneumonia). No consolidation or masses.CT abdomen pelvis showed dilated intrahepatic and CBD up to pancreas which is further evaluated with CT abdomen pelvis with contrast but did not show any obstruction. No other acute findings but multiple chronic findings. Lab findings on admission with leukocytosis WBC at 15.0, normocytic anemia with hgb at 9.5, Bun at 29, alk phos at 148, procal at 5.810. Urine and respiratory panel negative. Blood and urine cultures obtained and pending. Zosyn started, fluid bolus administered. Patient admitted with Sepsis. Today pt states weakness has resolved and she would like to d/c. She has been up to the bathroom 3 times without any concerns. She is room air 97%. WBC is 9.7. Na+129 will recheck. Procal and alk phos elevated - she has lung cancer. She will need to f/u with PCP and oncology. She is asking for pain medication for chronic pain to d/c with. She is prescribed a benzo by PCP therefore unable to do this per guidelines. Discussed pain management and she refuses this. She explained oncology and PCP will not prescribe pain meds. Discussed PT as an o ption and she is going to reschedule her ortho appointment that she had scheduled for today. She denies CP, SOB, abd. pain, N/V/D. - Vitals & Intake/Output Vital Signs: Vital Signs Temperature 97.8 F 07/10/23 07:08 Pulse Rate 89 07/10/23 07:08 Respiratory Rate 18 07/10/23 07:08 Blood Pressure 148/74 07/10/23 07:08 O2 Sat by Pulse Oximetry 97 07/10/23 07:08 Intake & Output: Intake & Output 07/07/23 07/08/23 07/09/23 07/10/23 10:59 10:59 11:59 11:59 Intake Total 920 Balance 920 Weight 55.1 kg - Lab Result Diagrams: 07/10/23 04:30 07/10/23 04:30 Lab Results-Last 24 Hrs: Lab Results-Last 24 Hours 07/09/23 07/09/23 07/09/23 Range/Units 09:44 09:44 10:00 WBC 15.0 H (4.0-10.5) x10^3/uL RBC 3.55 L (4.1-5.4) x10^6/uL Hgb 9.5 L (12.0-16.0) g/dL Hct 30.5 L (35-47) % MCV 85.9 (78-100) fL MCH 26.8 (26-32) pg MCHC 31.1 L (32-36) g/dL RDW 17.0 H (11.5-14.0) % Plt Count 445 (150-450) x10^3/uL MPV 9.1 (7.5-11.0) fL Gran % 81.1 H (36.0-66.0) % Immature Gran % (Auto) 0.5 H (0.00-0.4) % Nucleat RBC Rel Count 0.0 (0.00-0.1) % Eos # (Auto) 0.45 (0-0.5) x10^3/uL Immature Gran # (Auto) 0.07 H (0.00-0.03) x10^3u/L Absolute Lymphs (auto) 1.15 (1.0-4.6) x10^3/uL Absolute Monos (auto) 1.08 (0.0-1.3) x10^3/uL Absolute Nucleated RBC 0.00 (0.00-0.01) x10^3u/L Lymphocytes % 7.7 L (24.0-44.0) % Monocytes % 7.2 (0.0-12.0) % Eosinophils % 3.0 (0.00-5.0) % Basophils % 0.5 (0.0-0.4) % Absolute Granulocytes 12.19 H (1.4-6.9) x10^3/uL Basophils # 0.07 (0-0.4) x10^3/uL Sodium (135-145) mmol/L Potassium (3.5-5.1) mmol/L Chloride (98-107) mmol/L Carbon Dioxide (22-30) mmol/L Anion Gap (5-15) MEQ/L BUN (7-17) mg/dL Creatinine (0.52-1.04) mg/dL Estimated GFR ML/MIN Glucose (74-106) mg/dL POC Glucometer (74 to 106) mg/dL Hemoglobin A1c (4.5-6.0) % Lactic Acid 1.1 (0.4-2.0) Calcium (8.4-10.2) mg/dL Magnesium (1.6-2.3) mg/dL Total Bilirubin (0.2-1.3) mg/dL AST (14-36) U/L ALT (0-35) U/L Alkaline Phosphatase (38-126) U/L Serum Total Protein (6.3-8.2) g/dL Albumin (3.5-5.0) g/dL Lipase (23-300) U/L Procalcitonin (0.030-0.080) ng/mL TSH 3rd Generation (0.47-4.68) mIU/L Urine Color Yellow (Yellow) Urine Appearance Clear (Clear) Urine pH 6.5 (4.6-8.0) Ur Specific [place] 1.010 (1.005-1.030) Urine Protein 100 A (Negative) Urine Glucose (UA) 500 A (Negative) mg/dL Urine Ketones Negative (Negative) Urine Blood Negative (Negative) Urine Nitrite Negative (Negative) Urine Bilirubin Negative (Negative) Urine Urobilinogen 1.0 A (0.2) mg/dL Ur Leukocyte Esterase Negative (Negative) U Hyaline Cast (Auto) NONE SEEN (0-2) /LPF Urine Microscopic RBC 0-2 (0-5) /HPF Urine Microscopic WBC 0-2 (0-5) /HPF Ur Epithelial Cells None Seen (None Seen) /HPF Urine Bacteria Few A (None Seen) /HPF Urine Culture Reflexed NO (NO) Influenza Type A Ag (NEGATIVE) Influenza Type B Ag (NEGATIVE) RSV (PCR) (NEGATIVE) SARS-CoV-2 (PCR) (NEGATIVE) 07/09/23 07/09/23 07/09/23 Range/Units 10:00 10:00 10:00 WBC (4.0-10.5) x10^3/uL RBC (4.1-5.4) x10^6/uL Hgb (12.0-16.0) g/dL Hct (35-47) % MCV (78-100) fL MCH (26-32) pg MCHC (32-36) g/dL RDW (11.5-14.0) % Plt Count (150-450) x10^3/uL MPV (7.5-11.0) fL Gran % (36.0-66.0) % Immature Gran % (Auto) (0.00-0.4) % Nucleat RBC Rel Count (0.00-0.1) % Eos # (Auto) (0-0.5) x10^3/uL Immature Gran # (Auto) (0.00-0.03) x10^3u/L Absolute Lymphs (auto) (1.0-4.6) x10^3/uL Absolute Monos (auto) (0.0-1.3) x10^3/uL Absolute Nucleated RBC (0.00-0.01) x10^3u/L Lymphocytes % (24.0-44.0) % Monocytes % (0.0-12.0) % Eosinophils % (0.00-5.0) % Basophils % (0.0-0.4) % Absolute Granulocytes (1.4-6.9) x10^3/uL Basophils # (0-0.4) x10^3/uL Sodium 135 (135-145) mmol/L Potassium 3.9 (3.5-5.1) mmol/L Chloride 103 (98-107) mmol/L Carbon Dioxide 27 (22-30) mmol/L Anion Gap 9.0 (5-15) MEQ/L BUN 29 H (7-17) mg/dL Creatinine 0.76 (0.52-1.04) mg/dL Estimated GFR 89.1 ML/MIN Glucose 185 H (74-106) mg/dL POC Glucometer (74 to 106) mg/dL Hemoglobin A1c (4.5-6.0) % Lactic Acid (0.4-2.0) Calcium 9.2 (8.4-10.2) mg/dL Magnesium 2.0 (1.6-2.3) mg/dL Total Bilirubin 0.30 (0.2-1.3) mg/dL AST 18 (14-36) U/L ALT 16 (0-35) U/L Alkaline Phosphatase 148 H (38-126) U/L Serum Total Protein 6.4 (6.3-8.2) g/dL Albumin 3.1 L (3.5-5.0) g/dL Lipase 13 L (23-300) U/L Procalcitonin 5.810 H* (0.030-0.080) ng/mL TSH 3rd Generation (0.47-4.68) mIU/L Urine Color (Yellow) Urine Appearance (Clear) Urine pH (4.6-8.0) Ur Specific [place] (1.005-1.030) Urine Protein (Negative) Urine Glucose (UA) (Negative) mg/dL Urine Ketones (Negative) Urine Blood (Negative) Urine Nitrite (Negative) Urine Bilirubin (Negative) Urine Urobilinogen (0.2) mg/dL Ur Leukocyte Esterase (Negative) U Hyaline Cast (Auto) (0-2) /LPF Urine Microscopic RBC (0-5) /HPF Urine Microscopic WBC (0-5) /HPF Ur Epithelial Cells (None Seen) /HPF Urine Bacteria (None Seen) /HPF Urine Culture Reflexed (NO) Influenza Type A Ag NEGATIVE (NEGATIVE) Influenza Type B Ag NEGATIVE (NEGATIVE) RSV (PCR) NEGATIVE (NEGATIVE) SARS-CoV-2 (PCR) NEGATIVE (NEGATIVE) 07/09/23 07/09/23 07/09/23 Range/Units 10:07 13:14 21:34 WBC (4.0-10.5) x10^3/uL RBC (4.1-5.4) x10^6/uL Hgb (12.0-16.0) g/dL Hct (35-47) % MCV (78-100) fL MCH (26-32) pg MCHC (32-36) g/dL RDW (11.5-14.0) % Plt Count (150-450) x10^3/uL MPV (7.5-11.0) fL Gran % (36.0-66.0) % Immature Gran % (Auto) (0.00-0.4) % Nucleat RBC Rel Count (0.00-0.1) % Eos # (Auto) (0-0.5) x10^3/uL Immature Gran # (Auto) (0.00-0.03) x10^3u/L Absolute Lymphs (auto) (1.0-4.6) x10^3/uL Absolute Monos (auto) (0.0-1.3) x10^3/uL Absolute Nucleated RBC (0.00-0.01) x10^3u/L Lymphocytes % (24.0-44.0) % Monocytes % (0.0-12.0) % Eosinophils % (0.00-5.0) % Basophils % (0.0-0.4) % Absolute Granulocytes (1.4-6.9) x10^3/uL Basophils # (0-0.4) x10^3/uL Sodium (135-145) mmol/L Potassium (3.5-5.1) mmol/L Chloride (98-107) mmol/L Carbon Dioxide (22-30) mmol/L Anion Gap (5-15) MEQ/L BUN (7-17) mg/dL Creatinine (0.52-1.04) mg/dL Estimated GFR ML/MIN Glucose (74-106) mg/dL POC Glucometer 192 H 176 H 273 H (74 to 106) mg/dL Hemoglobin A1c (4.5-6.0) % Lactic Acid (0.4-2.0) Calcium (8.4-10.2) mg/dL Magnesium (1.6-2.3) mg/dL Total Bilirubin (0.2-1.3) mg/dL AST (14-36) U/L ALT (0-35) U/L Alkaline Phosphatase (38-126) U/L Serum Total Protein (6.3-8.2) g/dL Albumin (3.5-5.0) g/dL Lipase (23-300) U/L Procalcitonin (0.030-0.080) ng/mL TSH 3rd Generation (0.47-4.68) mIU/L Urine Color (Yellow) Urine Appearance (Clear) Urine pH (4.6-8.0) Ur Specific [place] (1.005-1.030) Urine Protein (Negative) Urine Glucose (UA) (Negative) mg/dL Urine Ketones (Negative) Urine Blood (Negative) Urine Nitrite (Negative) Urine Bilirubin (Negative) Urine Urobilinogen (0.2) mg/dL Ur Leukocyte Esterase (Negative) U Hyaline Cast (Auto) (0-2) /LPF Urine Microscopic RBC (0-5) /HPF Urine Microscopic WBC (0-5) /HPF Ur Epithelial Cells (None Seen) /HPF Urine Bacteria (None Seen) /HPF Urine Culture Reflexed (NO) Influenza Type A Ag (NEGATIVE) Influenza Type B Ag (NEGATIVE) RSV (PCR) (NEGATIVE) SARS-CoV-2 (PCR) (NEGATIVE) 07/09/23 07/09/23 07/10/23 Range/Units Unknown Unknown 04:30 WBC 9.7 (4.0-10.5) x10^3/uL RBC 3.33 L (4.1-5.4) x10^6/uL Hgb 9.2 L (12.0-16.0) g/dL Hct 28.8 L (35-47) % MCV 86.5 (78-100) fL MCH 27.6 (26-32) pg MCHC 31.9 L (32-36) g/dL RDW 16.9 H (11.5-14.0) % Plt Count 371 (150-450) x10^3/uL MPV 9.3 (7.5-11.0) fL Gran % 78.1 H (36.0-66.0) % Immature Gran % (Auto) 0.7 H (0.00-0.4) % Nucleat RBC Rel Count 0.0 (0.00-0.1) % Eos # (Auto) 0.57 H (0-0.5) x10^3/uL Immature Gran # (Auto) 0.07 H (0.00-0.03) x10^3u/L Absolute Lymphs (auto) 0.76 L (1.0-4.6) x10^3/uL Absolute Monos (auto) 0.67 (0.0-1.3) x10^3/uL Absolute Nucleated RBC 0.00 (0.00-0.01) x10^3u/L Lymphocytes % 7.9 L (24.0-44.0) % Monocytes % 6.9 (0.0-12.0) % Eosinophils % 5.9 H (0.00-5.0) % Basophils % 0.5 (0.0-0.4) % Absolute Granulocytes 7.54 H (1.4-6.9) x10^3/uL Basophils # 0.05 (0-0.4) x10^3/uL Sodium (135-145) mmol/L Potassium (3.5-5.1) mmol/L Chloride (98-107) mmol/L Carbon Dioxide (22-30) mmol/L Anion Gap (5-15) MEQ/L BUN (7-17) mg/dL Creatinine (0.52-1.04) mg/dL Estimated GFR ML/MIN Glucose (74-106) mg/dL POC Glucometer (74 to 106) mg/dL Hemoglobin A1c 10.34 H (4.5-6.0) % Lactic Acid (0.4-2.0) Calcium (8.4-10.2) mg/dL Magnesium (1.6-2.3) mg/dL Total Bilirubin (0.2-1.3) mg/dL AST (14-36) U/L ALT (0-35) U/L Alkaline Phosphatase (38-126) U/L Serum Total Protein (6.3-8.2) g/dL Albumin (3.5-5.0) g/dL Lipase (23-300) U/L Procalcitonin (0.030-0.080) ng/mL TSH 3rd Generation 5.590 H (0.47-4.68) mIU/L Urine Color (Yellow) Urine Appearance (Clear) Urine pH (4.6-8.0) Ur Specific [place] (1.005-1.030) Urine Protein (Negative) Urine Glucose (UA) (Negative) mg/dL Urine Ketones (Negative) Urine Blood (Negative) Urine Nitrite (Negative) Urine Bilirubin (Negative) Urine Urobilinogen (0.2) mg/dL Ur Leukocyte Esterase (Negative) U Hyaline Cast (Auto) (0-2) /LPF Urine Microscopic RBC (0-5) /HPF Urine Microscopic WBC (0-5) /HPF Ur Epithelial Cells (None Seen) /HPF Urine Bacteria (None Seen) /HPF Urine Culture Reflexed (NO) Influenza Type A Ag (NEGATIVE) Influenza Type B Ag (NEGATIVE) RSV (PCR) (NEGATIVE) SARS-CoV-2 (PCR) (NEGATIVE) 07/10/23 07/10/23 Range/Units 04:30 07:15 WBC (4.0-10.5) x10^3/uL RBC (4.1-5.4) x10^6/uL Hgb (12.0-16.0) g/dL Hct (35-47) % MCV (78-100) fL MCH (26-32) pg MCHC (32-36) g/dL RDW (11.5-14.0) % Plt Count (150-450) x10^3/uL MPV (7.5-11.0) fL Gran % (36.0-66.0) % Immature Gran % (Auto) (0.00-0.4) % Nucleat RBC Rel Count (0.00-0.1) % Eos # (Auto) (0-0.5) x10^3/uL Immature Gran # (Auto) (0.00-0.03) x10^3u/L Absolute Lymphs (auto) (1.0-4.6) x10^3/uL Absolute Monos (auto) (0.0-1.3) x10^3/uL Absolute Nucleated RBC (0.00-0.01) x10^3u/L Lymphocytes % (24.0-44.0) % Monocytes % (0.0-12.0) % Eosinophils % (0.00-5.0) % Basophils % (0.0-0.4) % Absolute Granulocytes (1.4-6.9) x10^3/uL Basophils # (0-0.4) x10^3/uL Sodium 129 L (135-145) mmol/L Potassium 3.8 (3.5-5.1) mmol/L Chloride 97 L (98-107) mmol/L Carbon Dioxide 27 (22-30) mmol/L Anion Gap 9.5 (5-15) MEQ/L BUN 24 H (7-17) mg/dL Creatinine 0.90 (0.52-1.04) mg/dL Estimated GFR 72.7 ML/MIN Glucose 324 H (74-106) mg/dL POC Glucometer 374 H (74 to 106) mg/dL Hemoglobin A1c (4.5-6.0) % Lactic Acid (0.4-2.0) Calcium 8.7 (8.4-10.2) mg/dL Magnesium (1.6-2.3) mg/dL Total Bilirubin 0.10 L (0.2-1.3) mg/dL AST 31 (14-36) U/L ALT 25 (0-35) U/L Alkaline Phosphatase 429 H (38-126) U/L Serum Total Protein 6.1 L (6.3-8.2) g/dL Albumin 2.9 L (3.5-5.0) g/dL Lipase (23-300) U/L Procalcitonin (0.030-0.080) ng/mL TSH 3rd Generation (0.47-4.68) mIU/L Urine Color (Yellow) Urine Appearance (Clear) Urine pH (4.6-8.0) Ur Specific [place] (1.005-1.030) Urine Protein (Negative) Urine Glucose (UA) (Negative) mg/dL Urine Ketones (Negative) Urine Blood (Negative) Urine Nitrite (Negative) Urine Bilirubin (Negative) Urine Urobilinogen (0.2) mg/dL Ur Leukocyte Esterase (Negative) U Hyaline Cast (Auto) (0-2) /LPF Urine Microscopic RBC (0-5) /HPF Urine Microscopic WBC (0-5) /HPF Ur Epithelial Cells (None Seen) /HPF Urine Bacteria (None Seen) /HPF Urine Culture Reflexed (NO) Influenza Type A Ag (NEGATIVE) Influenza Type B Ag (NEGATIVE) RSV (PCR) (NEGATIVE) SARS-CoV-2 (PCR) (NEGATIVE) Micro Results-Entire Visit: Accuchecks Date 07/10/23 Date 07/09/23 Date 07/09/23 Date 07/09/23 Time 07:38 Time 13:14 Time 10:12 Time 10:05 - Radiology Exams Ordered Rad Exams-Entire Visit: Radiology Procedures Category Date Time Status ABDOMEN AND PELVIS W CONTRAST [CT] Stat Exams 07/09/23 12:26 Completed ABDOMEN AND PELVIS W/0 CONTRAS [CT] Stat Exams 07/09/23 10:22 Completed CHEST WITHOUT CONTRAST [CT] Stat Exams 07/09/23 10:23 Completed - Procedures and Test Procedures and Tests throughout Hospitalization: Therapy Orders & Screens 07/09/23 16:20 Oxygen Nasal Cannula 2 lpm Comment: Respiratory Therapy Consult ONCE Comment: Reason For Exam: 07/09/23 16:54 PT Eval & Treat (MD Order) ONCE Reason for Eval:: weakness Diagnosis: sepsis/weakness OT Eval and Treat (MD Order) ONCE Comment: Physician Instructions: Reason For Exam: Diagnosis: sepsis/weakness 07/09/23 17:03 Smoking Cessation Education ONCE Comment: Diagnosis: sepsis/weakness Smoking Status: Current every day smoker How long have you smoked: 50 years Have you smoked in the past 12 months: Yes Approximately how many cigarettes per day: 1ppd Do you dip or chew tobacco: No 07/09/23 17:46 Incentive Spirometry UD Comment: Diagnosis: sepsis/weakness Discharge Exam General Appearance: no apparent distress, alert Neurologic Exam: alert, oriented x 3, cooperative, normal mood/affect, nml cerebellar function, sensation nml, No motor deficits Eye Exam: PERRL, EOMI, eyes nml inspection Ears, Nose, Throat Exam: normal ENT inspection, pharynx normal, moist mucous membranes Neck Exam: normal inspection, non-tender, supple, full range of motion Respiratory Exam: normal breath sounds, lungs clear, No respiratory distress Cardiovascular Exam: regular rate/rhythm, normal heart sounds Gastrointestinal/Abdomen Exam: soft, No tenderness, No mass Pelvic Exam: deferred Rectal Exam: deferred Back Exam: normal inspection, normal range of motion, No CVA tenderness, No vertebral tenderness Extremity Exam: normal inspection, normal range of motion Skin Exam: normal color, warm, dry Final Diagnosis/Problem List - Final Discharge Diagnosis/Problem (1) Sepsis Current Visit: Yes Status: Resolved Assessment & Plan: -Unknown source of infection -CT findings with mild left pleural effusion.Features suggestive of interstitial lung disease (possibly usual interstitial pneumonia). No consolidation or masses.CT abdomen pelvis showed dilated intrahepatic and CBD up to pancreas which is further evaluated with CT abdomen pelvis with contrast but did not show any obstruction. -UA negative -Blood culture obtained and pending -Lactic acid WNL, procal elevated at 5.810 (of note patient does have lung cancer, PCT elevation may be secondary to this) -Zosyn initiated in ED, will continue for now -IVF bolus 1L received in ED, continue NS @ 125 ml/hr-CBC, CMP, Mg, Phos in am- continue appropriate baseline home medications-PT/OT eval -tx-DVT prophylaxis- pt allergic to lovenox - bilateral SCD -Will admin vasopressors is hypotensive after IV admin (MAP <65 or SBP <90). 07/09 - BC x2 pending- will follow OP. - room air- 97% - weakness resolved - WBC 9.7 - 2:2 pneumonia (2) Diabetes mellitus Current Visit: Yes Status: Chronic Assessment & Plan: -ADA Diet -SSI -A1c Code(s): E11.9 - TYPE 2 DIABETES MELLITUS WITHOUT COMPLICATIONS (3) Generalized weakness Current Visit: Yes Status: Resolved Assessment & Plan: - PT/OT Code(s): R53.1 - WEAKNESS (4) HLD (hyperlipidemia) Current Visit: Yes Status: Chronic Assessment & Plan: -continue home meds Code(s): E78.5 - HYPERLIPIDEMIA, UNSPECIFIED (5) HTN (hypertension) Current Visit: Yes Status: Chronic Assessment & Plan: -stable, continue appropriate baseline home meds, adjust as needed Code(s): I10 - ESSENTIAL (PRIMARY) HYPERTENSION (6) Smoker Current Visit: No Status: Chronic Assessment & Plan: -Nicotine patch -Advised cessation Code(s): F17.200 - NICOTINE DEPENDENCE, UNSPECIFIED, UNCOMPLICATED (7) COPD (chronic obstructive pulmonary disease) Current Visit: No Status: Chronic Assessment & Plan: - no acute concern - room air (8) Chronic pain Current Visit: Yes Status: Chronic Assessment & Plan: - f/u with ortho- reschedule appointment. Code(s): G89.29 - OTHER CHRONIC PAIN - Discharge Discharge Date: 07/10/23 Disposition: Home, Self-Care Condition: Stable Prescriptions: New Amox Tr/Potass Clav. 875 mg [Augmentin 875-125 Tablet] 875 mg PO BID 5 Days #10 tablet Continue Cyclobenzaprine HCl 10 mg [Cyclobenzaprine 10 MG] 10 mg PO QID PRN PRN Reason: Pain Promethazine HCl 25 mg [Phenergan 25 mg] 25 mg PO QID PRN PRN Reason: Nausea Prochlorperazine Maleate [Compazine] 10 mg PO BIDPRN PRN PRN Reason: Nausea Insulin Aspart [NovoLOG Insulin] 4 unit SQ AC Metoprolol Tartrate 50 mg [Lopressor 50 MG] 50 mg PO DAILY Insulin Glargine,Hum.rec.anlog [Touvao Solostar] 13 unit SQ QHS Mirtazapine 30 mg [Remeron 30 mg] 30 mg PO HS Gabapentin [Neurontin ] 300 mg PO HS Additional Instructions: Augmentin may cause stomach upset. Please take and OTC probiotic if you have diarrhea. Follow up with: LYUDMILA ARIAS MD [Primary Care Provider] - 07/18/23 11:15 am (APPOINTMENT AT THE [facility].)
[2023-07-10] MEDS ORDERED: Lopressor 50 MG PO SCH (10:00)
[2023-07-10] MEDS ORDERED: Lantus Insulin SQ SCH (22:00)
== END 2023-07-10 10:47 | disposition home or self-care (01) ==
LOC: ED 09:21 → MED SURG 16:17
PROVIDERS: ADMIT Internal Medicine; ATTEND Internal Medicine
DX: A41.9 Sepsis, unspecified organism (principal); E11.9 Type 2 diabetes mellitus without complications; R53.1 Weakness; E78.5 Hyperlipidemia, unspecified; I10 Essential (primary) hypertension; J44.9 Chronic obstructive pulmonary disease, unspecified; G89.29 Other chronic pain; J90 Pleural effusion, not elsewhere classified; I25.10 Atherosclerotic heart disease of native coronary artery without angina pectoris; C34.90 Malignant neoplasm of unspecified part of unspecified bronchus or lung; D72.829 Elevated white blood cell count, unspecified; F17.200 Nicotine dependence, unspecified, uncomplicated; R19.7 Diarrhea, unspecified; Z79.899 Other long term (current) drug therapy; Z20.828 Contact with and (suspected) exposure to other viral communicable diseases
CPT/HCPCS: 0241U; 36000; 36415; 71250; 74176; 74177; 80053; 81001; 82947; 83036; 83605; 83690; 83735; 84145; 84443; 85025; 87040; 94762; 96374; 96375; 99285; J1817; J1940; J2405; J3010; A9270-GY

== ENCOUNTER 2023-08-17 20:16 | Emergency (ER) | payer BC ==
[2023-08-17 20:26] VITALS: RESP 18; TEMP 97.3
[2023-08-17] MEDS: MORPHINE SULFATE 4 MG INJ IM ONE ×2 (20:44→21:35)
[2023-08-17] MEDS ORDERED: MORPHINE SULFATE 4 MG INJ ONE ×2 (20:44→21:34)
[2023-08-17] MEDS ORDERED: NORCO 5/325 MG ONE (20:53)
[2023-08-17] MEDS: NORCO 5/325 MG PO ONE (20:54)
--- NOTE | 2023-08-17 21:20 | ERPHSYRPT ---
- History of Present Illness Time Seen by Provider: 08/17/23 20:20 Source: patient, family Exam Limitations: no limitations Patient Subjective Stated Complaint: chronic back pain flare up Triage Nursing Assessment: pt ambulatory to bed with assist of 1 from wheelchair, pt alert and oriented x3, skin pwd, pt c/o acute on chronic low back pain for "awhile", pt denies any new injury and states tylenol and motrin are not helping at home Physician History: 62-year-old female with multiple medical problems including lung cancer status post resection currently on immunotherapy, hypertension, diabetes mellitus, coronary artery disease, chronic back pain, anxiety presented in the ER with increasing pain lower back across since morning. She has taken Tylenol and ibuprofen with no significant relief. Patient has some tingly numb sensation in the right lower extremity chronically which is not any worse than usual. Denies any weakness or saddle anesthesia. No loss of bowel or bladder control. Denies any fall trauma, exertional activity. Patient reports having similar symptoms with flareup of back pain multiple times in the past. Allergies/Adverse Reactions: orphenadrine citrate [From Norflex] Allergy (Intermediate, Verified 08/17/23 20:28) severe vomiting adhesive tape Allergy (Verified 08/17/23 20:28) levofloxacin [From Levaquin] Adverse Reaction (Mild, Verified 08/17/23 20:28) Nausea and Vomiting Home Medications: Cyclobenzaprine HCl 10 mg [Cyclobenzaprine 10 MG] 10 mg PO QID PRN 02/13/19 [History] Promethazine HCl 25 mg [Phenergan 25 mg] 25 mg PO QID PRN 07/17/21 [History] Prochlorperazine Maleate [Compazine] 10 mg PO BIDPRN PRN 08/30/22 [History] Insulin Aspart [NovoLOG Insulin] 4 unit SQ AC 10/08/22 [History] Insulin Glargine,Hum.rec.anlog [Touwilfrid Solostar] 13 unit SQ QHS 11/28/22 [History] Metoprolol Tartrate 50 mg [Lopressor 50 MG] 50 mg PO DAILY 11/28/22 [History] Gabapentin [Neurontin ] 300 mg PO HS 01/01/23 [History] Mirtazapine 30 mg [Remeron 30 mg] 30 mg PO HS 01/01/23 [History] Hx Tetanus, Diphtheria Vaccination/Date Given: No Hx Influenza Vaccination/Date Given: Yes Hx Pneumococcal Vaccination/Date Given: Yes Immunizations Up to Date: No Travel Risk - International Travel Have you traveled outside of the country in past 3 weeks: No - Emerging Infectious Disease Are you exhibiting symptoms associated with any current EIDs: No - Review of Systems Constitutional: No Symptoms Ears, Nose, & Throat: No Symptoms Respiratory: No Symptoms Cardiac: No Symptoms Abdominal/Gastrointestinal: No Symptoms Genitourinary Symptoms: No Symptoms Musculoskeletal: Back Pain Skin: No Symptoms Neurological: No Headache Psychological: No Symptoms Endocrine: No Symptoms Hematologic/Lymphatic: No Symptoms - Past Medical History Pertinent Past Medical History: Yes Neurological History: No Pertinent History ENT History: Cataracts Cardiac History: Coronary Artery Disease, High Cholesterol, Hypertension Respiratory History: COPD, Lung Cancer Endocrine Medical History: Diabetes Type II Musculoskeletal History: Fractures GI Medical History: GERD History: Renal Disease Psycho-Social History: Anxiety, Depression Female Reproductive Disorders: No Pertinent History Other Medical History: Previous left leg fx many years ago,rt wrist fx with cast. left lower lobe lung cancer. chemo - Past Surgical History Past Surgical History: Yes Neuro Surgical History: No Pertinent History Cardiac: Cardiac Catheterization, Cardiac Stent Respiratory: Lobectomy Gastrointestinal: Cholecystectomy Genitourinary: No Pertinent History Musculoskeletal: Other Female Surgical History: Tubal Ligation Other Surgical History: BUNONECTOMY. BACK SURGERY X2, right upper chest port placement. LL lung lobectomy Significant Family History: heart disease, diabetes, hypertension - Social History Smoking Status: Current every day smoker How long have you smoked: 50 years Exposure to second hand smoke: Yes Alcohol Use: None Drug Use: none Patient Lives Alone: No - Nursing Vital Signs Nursing Vital Signs: Initial Vital Signs Temperature 97.3 F 08/17/23 20:25 Pulse Rate 86 08/17/23 20:25 Respiratory Rate 18 08/17/23 20:25 Blood Pressure 130/77 08/17/23 20:25 O2 Sat by Pulse Oximetry 99 08/17/23 20:25 Pain Scale Pain Intensity [Lower Back] 10 Pain Intensity 8 - Physical Exam General Appearance: no apparent distress Ears, Nose, Throat Exam: normal ENT inspection Neck Exam: normal inspection, full range of motion Respiratory Exam: normal breath sounds, lungs clear Cardiovascular Exam: regular rate/rhythm, normal heart sounds Gastrointestinal Exam: soft, normal bowel sounds, No tenderness Back Exam: normal inspection, decreased range of motion, muscle spasm, other (Tenderness across lower back/sacroiliac area bilaterally.) Extremity Exam: normal inspection, normal range of motion Neurologic Exam: alert, oriented x 3, 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, 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 SpO2 Interpretation: normal SpO2: 99 O2 Delivery: Room Air Ordered Tests: Medication Summary Discontinued Medications Generic Name Dose Route Start Last Admin Trade Name Freq PRN Reason Stop Dose Admin Hydrocodone Bitart/Acetaminophen 2 tab 08/17/23 20:35 08/17/23 20:54 Hydrocodone/Apap 5/325 1 Tab Tablet PO 08/17/23 20:36 2 tab SENT HOME W/ PATIENT ONE Administration Hydrocodone Bitart/Acetaminophen Confirm 08/17/23 20:53 Hydrocodone/Apap 5/325 1 Tab Tablet Administered 08/17/23 20:54 Dose 2 tab .ROUTE .STK-MED ONE Morphine Sulfate 4 mg 08/17/23 20:35 08/17/23 20:44 Morphine Sulfate 4 Mg/Ml Injection IM 08/17/23 20:36 4 mg STAT ONE Administration Morphine Sulfate Confirm 08/17/23 20:44 Morphine Sulfate 4 Mg/Ml Injection Administered 08/17/23 20:45 Dose 4 mg .ROUTE .STK-MED ONE Morphine Sulfate 4 mg 08/17/23 21:30 08/17/23 21:35 Morphine Sulfate 4 Mg/Ml Injection IM 08/17/23 21:31 4 mg STAT ONE Administration Morphine Sulfate Confirm 08/17/23 21:34 Morphine Sulfate 4 Mg/Ml Injection Administered 08/17/23 21:35 Dose 4 mg .ROUTE .STK-MED ONE - Progress Progress: improved Progress Note: 08/17/23 21:46 62-year-old is evaluated for acute on chronic low back pain without any trauma and no new neurosymptoms. Patient pain is in the sacroiliac area bilaterally across. No cauda equina symptoms. She is given symptomatic treatment, feeling better on reevaluation. Do not think she needs imaging or any other workup and is being discharged with outpatient follow-up with primary care/pain management. Discussed signs symptoms of worsening needing return to ER which she seems understanding. Counseled pt/family regarding: diagnosis, need for follow-up Medical Desision Making - Independent Historian Additional History obtained from: Child - Diagnostic Testing Diagnostic test were ordered, analyzed, and reviewed by me: No - Departure Departure Disposition: Home Clinical Impression: Acute exacerbation of chronic low back pain Condition: Stable Critical Care Time: No Referrals: LYUDMILA ARIAS MD [Primary Care Provider] - Follow up with PCP 1 day Instructions: Low Back Pain (DC) Additional Instructions: Take Tylenol/ibuprofen as needed for pain. Follow-up with primary care for reevaluation and may need referral for pain management. Return to ER for intractable low back pain, weakness, numbness of lower extremities, perineal numbness, loss of bowel or bladder control etc.
[2023-08-17 22:01] VITALS: BP 144/80; PULSE 67; O2SAT 96
== END 2023-08-17 22:13 | disposition home or self-care (01) ==
LOC: ED 20:16
DX: M54.50 Low back pain, unspecified (principal)
CPT/HCPCS: 96372; 99283; J2270; A9270-GY

== ENCOUNTER 2023-11-01 16:41 | Emergency (ER) | payer BC ==
--- NOTE | 2023-11-01 16:43 | ERPHSYRPT ---
- History of Present Illness Time Seen by Provider: 11/01/23 16:43 Source: patient, family Exam Limitations: no limitations Physician History: This is a right-handed 63-year-old white female patient of Dr. Arias secondary to throbbing pain and swelling of her left elbow. Patient states that the symptoms have been present for 4 days. She states that she has not had any acute, traumatic injury to the elbow. Patient has had surgical procedure to this area with plates and screws present. Patient has a history of hypertension, insulin-dependent Beatties, coronary disease, hyperlipidemia, COPD, gastroesophageal reflux disease, renal disease anxiety and depression issues. Occurred: days ago (4) Quality: throbbing (Left elbow pain) Severity of Pain-Max: moderate Severity of Pain-Current: moderate Extremities Pain Location: elbow: left Modifying Factors: Improves With: movement Associated Symptoms: none Allergies/Adverse Reactions: orphenadrine citrate [From Norflex] Allergy (Intermediate, Verified 11/01/23 17:02) severe vomiting adhesive tape Allergy (Verified 11/01/23 17:02) levofloxacin [From Levaquin] Adverse Reaction (Mild, Verified 11/01/23 17:02) Nausea and Vomiting Home Medications: Cyclobenzaprine HCl 10 mg [Cyclobenzaprine 10 MG] 10 mg PO QID PRN 02/13/19 [History] Promethazine HCl 25 mg [Phenergan 25 mg] 25 mg PO QID PRN 07/17/21 [History] Prochlorperazine Maleate [Compazine] 10 mg PO BIDPRN PRN 08/30/22 [History] Insulin Aspart [NovoLOG Insulin] 4 unit SQ AC 10/08/22 [History] Insulin Glargine,Hum.rec.anlog [Touwilfrid Solostar] 13 unit SQ QHS 11/28/22 [History] Metoprolol Tartrate 50 mg [Lopressor 50 MG] 50 mg PO DAILY 11/28/22 [History] Gabapentin [Neurontin ] 300 mg PO HS 01/01/23 [History] Mirtazapine 30 mg [Remeron 30 mg] 30 mg PO HS 01/01/23 [History] Hx Tetanus, Diphtheria Vaccination/Date Given: No Hx Influenza Vaccination/Date Given: Yes Hx Pneumococcal Vaccination/Date Given: Yes Travel Risk - Emerging Infectious Disease Are you exhibiting symptoms associated with any current EIDs: No - Review of Systems Constitutional: No Symptoms Eyes: No Symptoms Ears, Nose, & Throat: No Symptoms Respiratory: No Symptoms Cardiac: No Symptoms Abdominal/Gastrointestinal: No Symptoms Genitourinary Symptoms: No Symptoms Musculoskeletal: Joint Pain (Left elbow) Skin: No No Symptoms Neurological: No Symptoms Psychological: No Symptoms Endocrine: No Symptoms Hematologic/Lymphatic: No Symptoms Immunological/Allergic: No Symptoms All Other Systems: Reviewed and Negative - Past Medical History Pertinent Past Medical History: Yes Neurological History: No Pertinent History ENT History: Cataracts Cardiac History: Coronary Artery Disease, High Cholesterol, Hypertension Respiratory History: COPD, Lung Cancer Endocrine Medical History: Diabetes Type II Musculoskeletal History: Fractures GI Medical History: GERD History: Renal Disease Psycho-Social History: Anxiety, Depression Female Reproductive Disorders: No Pertinent History Other Medical History: Previous left leg fx many years ago,rt wrist fx with cast. left lower lobe lung cancer. chemo - Past Surgical History Past Surgical History: Yes Neuro Surgical History: No Pertinent History Cardiac: Cardiac Catheterization, Cardiac Stent Respiratory: Lobectomy Gastrointestinal: Cholecystectomy Genitourinary: No Pertinent History Musculoskeletal: Other Female Surgical History: Tubal Ligation Other Surgical History: BUNONECTOMY. BACK SURGERY X2, right upper chest port placement. LL lung lobectomy Significant Family History: heart disease, diabetes, hypertension - Social History Smoking Status: Current every day smoker How long have you smoked: 50 years Exposure to second hand smoke: Yes Alcohol Use: None Drug Use: none Patient Lives Alone: No - Social Determinants of Health Will the patient participate in the screening: Yes Do you worry about a steady place to live?: No In the past 12 months,have you had to go without utilities?: No Transportation Issues: No Has anyone in your support network made you feel unsafe?: No Have you or anyone in your house had to go without enough: No - Nursing Vital Signs Nursing Vital Signs: Initial Vital Signs Blood Pressure 160/82 11/01/23 17:00 O2 Sat by Pulse Oximetry 97 11/01/23 17:00 Pain Scale Pain Intensity 10 - Physical Exam General Appearance: no apparent distress, alert, anxiety Eyes, Ears, Nose, Throat Exam: normal ENT inspection, moist mucous membranes Neck Exam: normal inspection, non-tender, supple, full range of motion Cardiovascular/Respiratory Exam: chest non-tender, no respiratory distress Abdominal Exam: non-tender Back Exam: normal inspection, normal range of motion, No CVA tenderness, No vertebral tenderness Shoulder Exam: normal inspection, non-tender, no evidence of injury, normal ROM Elbow/Forearm Exam: bone tenderness (Left elbow), soft tissue tenderness (Left elbow), swelling (Left elbow), No deformity Wrist Exam: normal inspection, non-tender, no evidence of injury, normal ROM Hand Exam: normal inspection, non-tender, no evidence of injury, normal ROM Neuro/Tendon Exam: normal sensation, normal motor functions, normal tendon functions, responds to pain, no evidence tendon injury Mental Status Exam: alert, oriented x 3, cooperative Skin Exam: normal color, warm, dry SpO2 Interpretation: normal O2 Delivery: Room Air - Course Nursing assessment & vital signs reviewed: Yes Ordered Tests: Active Orders 24 hr Category Date Time Status Sling Application STAT Care 11/01/23 17:41 Active ELBOW (MINIMUM 3 VIEWS) Stat Exams 11/01/23 17:13 Completed Medication Summary Discontinued Medications Generic Name Dose Route Start Last Admin Trade Name Freq PRN Reason Stop Dose Admin Oxycodone/Acetaminophen 1 tab 11/01/23 17:40 Oxycodone Hcl/Apap 5 Mg/325 Mg Tablet PO 11/01/23 17:41 STAT STA - Progress Progress: unchanged Progress Note: 11/01/23 17:45 My medical decision making and the assignment of low complexity to this patient's medical issue today is based on review of the patient's past medical history, review the patient's medication list, review of patient drug allergy list, history present illness and physical findings on examination. The workup in this patient includes x-ray of the patient's left elbow. I interpreted the preliminary report of this patient's left elbow x-ray. I do not appreciate an acute fracture or dislocation. There is no obvious fat pad present. The surgical hardware appears to be in tact. The final x-ray report was interpreted by the radiologist and I reviewed the impression. The impression of the left elbow x-ray shows intact orthopedic plates and multiple screws fixating remote appearing epicondylar fracture. No other acute/new findings. Counseled pt/family regarding: diagnosis, need for follow-up, rad results Medical Desision Making - Independent Historian Additional History obtained from: Family - Diagnostic Testing Diagnostic test were ordered, analyzed, and reviewed by me: Yes Radiological Interpretation: Interpreted by me, Reviewed by me, Teleradiologist Report - Risk of complications The pt has a mod risk of morbidity or mortality based on: Need for prescription drug management - Departure Departure Disposition: Home Clinical Impression: Left elbow pain, Swelling of left elbow Condition: Stable Critical Care Time: No Referrals: LYUDMILA ARIAS MD [Primary Care Provider] - Follow up/PCP as directed Additional Instructions: Ice pack pack to area 3 times a day for the next 48 hours. Follow-up tomorrow by phone with your orthopedic surgeon to make arrangements for follow-up appointment to be seen in the next 3 to 5 days. Another option is to follow-up in the [facility] orthopedic clinic. It is open Monday through Monday 8 AM to 10 AM. It would be closed tomorrow for holiday (November 01). You may also follow-up with your primary care provider for further evaluation and management including pain management. Prescriptions: Oxycodone HCl/Acetaminophen [Percocet 5-325 mg Tablet] 1 each PO Q8H PRN PRN #6 tablet MDD 3 PRN Reason: Moderate To Severe Pain
[2023-11-01 17:05] VITALS: BP 160/82; PULSE 89; RESP 16; TEMP 98.6; O2SAT 95
--- NOTE | 2023-11-01 17:36 | XRAY ---
Indication: Pain following fall. Comparison: None 3 view left elbow demonstrates intact orthopedic plate/multiple screws fixating remote appearing epicondyle fracture with tiny medial heterotopic ossification. No other bony, articular, or soft tissue abnormalities.
[2023-11-01] MEDS ORDERED: PERCOCET TABLET 5/325MG ONE (17:42)
[2023-11-01] MEDS: PERCOCET TABLET 5/325MG PO STA (17:43)
== END 2023-11-01 18:14 | disposition home or self-care (01) ==
LOC: ED 16:41
DX: M25.522 Pain in left elbow (principal); M25.422 Effusion, left elbow; I10 Essential (primary) hypertension; E11.9 Type 2 diabetes mellitus without complications; E78.5 Hyperlipidemia, unspecified; Z79.4 Long term (current) use of insulin; Z79.891 Long term (current) use of opiate analgesic; Z79.899 Other long term (current) drug therapy; Z72.0 Tobacco use
CPT/HCPCS: 73080; 99283; A9270-GY

== ENCOUNTER 2023-11-12 02:40 | Emergency (ER) | payer BC ==
[2023-11-12 02:55] VITALS: TEMP 97.8
--- NOTE | 2023-11-12 03:02 | ERPHSYRPT ---
- History of Present Illness Time Seen by Provider: 11/12/23 03:02 Source: patient Exam Limitations: no limitations Physician History: The patient, with a history of lung cancer and a left lower lobe resection, presented to the emergency department after a fall. She reported losing balance while going to the bathroom, resulting in a fall on the right side. The patient reported hitting their right hip and right elbow during the fall, but denied any pain in the shoulder. She also reported a pre-existing condition of a loose screw in the left elbow from a previous injury, which was scheduled to be evaluated by an orthopedic surgeon. The patient is currently on a regimen of Tysentery twice a month for lung cancer treatment, with three more treatments remaining. She has not had a recent PET scan. The patient also reported taking metoprolol, a water pill as needed for swelling, Phenergan and Compazine as needed, metazapine at night for appetite, Neurontin three times a day, Protonix as needed, Flexeril 10 mg 4 times a day as needed, NovoLog insulin 4 units with meals, and long acting Toujeo 13 units at nighttime. She also takes alprazolam twice a day. The patient reported severe pain in the right hip, rating it as a 10 on the pain scale. She denied any external bleeding from the hip. She expressed concern about the pain associated with moving for these scans. Occurred: just prior to arrival Reason for Fall: tripped Injuries/Pain Location: upper extremity (right wrist, elbow), lower extremity (right hip, knee) Loss of Consciousness: no loss of consciousness Quality: sharpness, stabbing, throbbing Severity of Pain-Max: severe Severity of Pain-Current: severe Modifying Factors: Improves With: pain medication. Worsens With: movement Associated Symptoms (Fall): denies symptoms Allergies/Adverse Reactions: orphenadrine citrate [From Norflex] Allergy (Intermediate, Verified 11/12/23 02:57) severe vomiting adhesive tape Allergy (Verified 11/12/23 02:57) levofloxacin [From Levaquin] Adverse Reaction (Mild, Verified 11/12/23 02:57) Nausea and Vomiting Home Medications: Cyclobenzaprine HCl 10 mg [Cyclobenzaprine 10 MG] 10 mg PO QID PRN 02/13/19 [History] Promethazine HCl 25 mg [Phenergan 25 mg] 25 mg PO QID PRN 07/17/21 [History] Prochlorperazine Maleate [Compazine] 10 mg PO BIDPRN PRN 08/30/22 [History] Insulin Aspart [NovoLOG Insulin] 4 unit SQ AC 10/08/22 [History] Insulin Glargine,Hum.rec.anlog [Toujeo Solostar] 13 unit SQ QHS 11/28/22 [History] Metoprolol Tartrate 50 mg [Lopressor 50 MG] 50 mg PO DAILY 11/28/22 [History] Gabapentin [Neurontin ] 300 mg PO HS 01/01/23 [History] Mirtazapine 30 mg [Remeron 30 mg] 30 mg PO HS 01/01/23 [History] Hx Tetanus, Diphtheria Vaccination/Date Given: No Hx Influenza Vaccination/Date Given: Yes Hx Pneumococcal Vaccination/Date Given: Yes Travel Risk - Emerging Infectious Disease Are you exhibiting symptoms associated with any current EIDs: No - Review of Systems All Other Systems: Reviewed and Negative - Past Medical History Pertinent Past Medical History: Yes Neurological History: No Pertinent History ENT History: Cataracts Cardiac History: Coronary Artery Disease, High Cholesterol, Hypertension Respiratory History: COPD, Lung Cancer Endocrine Medical History: Diabetes Type II Musculoskeletal History: Fractures GI Medical History: GERD History: Renal Disease Psycho-Social History: Anxiety, Depression Female Reproductive Disorders: No Pertinent History Other Medical History: Previous left leg fx many years ago,rt wrist fx with cast. left lower lobe lung cancer. chemo - Past Surgical History Past Surgical History: Yes Neuro Surgical History: No Pertinent History Cardiac: Cardiac Catheterization, Cardiac Stent Respiratory: Lobectomy Gastrointestinal: Cholecystectomy Genitourinary: No Pertinent History Musculoskeletal: Other Female Surgical History: Tubal Ligation Other Surgical History: BUNONECTOMY. BACK SURGERY X2, right upper chest port placement. LL lung lobectomy Significant Family History: heart disease, diabetes, hypertension - Social History Smoking Status: Current every day smoker How long have you smoked: 50 years Exposure to second hand smoke: Yes Alcohol Use: None Drug Use: none Patient Lives Alone: No - Social Determinants of Health Will the patient participate in the screening: Yes Do you worry about a steady place to live?: No In the past 12 months,have you had to go without utilities?: No Transportation Issues: No Has anyone in your support network made you feel unsafe?: No Have you or anyone in your house had to go without enough: No - Nursing Vital Signs Nursing Vital Signs: Initial Vital Signs Temperature 97.8 F 11/12/23 02:41 Pulse Rate 85 11/12/23 02:41 Respiratory Rate 18 11/12/23 02:41 Blood Pressure 163/88 11/12/23 02:41 O2 Sat by Pulse Oximetry 98 11/12/23 02:41 Pain Scale Pain Intensity 5 - Charline Coma Score Best Eye Response (Charline): (4) open spontaneously Best Verbal Response (Charline): (5) oriented Best Motor Response (Charline): (6) obeys commands [place] Total: 15 - Physical Exam General Appearance: mild distress, thin Head Injury: no evidence of injury Eye Exam: PERRL/EOMI, eyes nml inspection ENT Exam: airway nml, nml ext.inspection Neck Exam: supple, trachea midline, full range of motion Extremity Exam: capillary refill <3 sec, deformities (Right leg externally rotated), joint swelling, limited range of motion, bony point tenderness, evidence of injury, hip tenderness, pain with movement, pedal edema, swelling, No pulse deficit Neurologic Exam: alert, oriented x 3, cooperative SpO2 Interpretation: normal SpO2: 98 O2 Delivery: Room Air - Course Nursing assessment & vital signs reviewed: Yes - Radiology Exams Right Wrist X-ray Interpretation: Interpreted by me, Negative Right Elbow X-ray Interpretation: Interpreted by me, Negative Right Knee X-ray Interpretation: Interpreted by me, Negative Right Hip X-ray Interpretation: Interpreted by me, Non-displaced Fracture (Intertrochanteric fracture right hip) - CT Exams Right Lower Extremity CT Interpretation: Tele-radiologist Report, Fracture (minimally displaced intertrochanteric hip fx) Ordered Tests: Active Orders 24 hr Category Date Time Status POCT GLUCOSE Stat Lab 11/12/23 07:29 Completed Medication Summary Discontinued Medications Generic Name Dose Route Start Last Admin Trade Name Freq PRN Reason Stop Dose Admin Hydromorphone HCl 1 mg 11/12/23 03:12 11/12/23 03:21 Hydromorphone 1 Mg/1ml Inj IV 11/12/23 03:13 1 mg STAT ONE Administration Hydromorphone HCl Confirm 11/12/23 03:18 Hydromorphone 1 Mg/1ml Inj Administered 11/12/23 03:19 Dose 1 mg .ROUTE .STK-MED ONE Hydromorphone HCl 1 mg 11/12/23 04:39 11/12/23 04:43 Hydromorphone 1 Mg/1ml Inj IV 11/12/23 04:40 1 mg STAT ONE Administration Hydromorphone HCl Confirm 11/12/23 04:41 Hydromorphone 1 Mg/1ml Inj Administered 11/12/23 04:42 Dose 1 mg .ROUTE .STK-MED ONE Insulin Human Lispro 10 unit 11/12/23 05:28 11/12/23 06:15 Insulin Lispro 1 Unit SQ 11/12/23 05:29 10 unit STAT ONE Administration Insulin Human Lispro Confirm 11/12/23 06:14 Insulin Lispro 1 Unit Administered 11/12/23 06:15 Dose 10 unit .ROUTE .STK-MED ONE Ondansetron HCl 4 mg 11/12/23 03:13 11/12/23 03:21 Ondansetron Hcl 4 Mg/2 Ml Vial IV 11/12/23 03:14 4 mg STAT ONE Administration Ondansetron HCl Confirm 11/12/23 03:18 Ondansetron Hcl 4 Mg/2 Ml Vial Administered 11/12/23 03:19 Dose 4 mg .ROUTE .STK-MED ONE Lab/Rad Data: Laboratory Result Diagrams 11/12/23 04:00 11/12/23 04:00 Laboratory Results 11/12/23 11/12/23 11/12/23 Range/Units 07:29 04:55 04:53 WBC (3.98-10.04) x10^3/uL RBC (3.93-5.22) x10^6/uL Hgb (11.2-15.7) g/dL Hct (34.1-44.9) % MCV (79.4-94.8) fL MCH (25.6-32.2) pg MCHC (32.2-35.5) g/dL RDW (11.7-14.4) % Plt Count (182-369) x10^3/uL MPV (9.4-12.3) fL Sodium (135-145) mmol/L Potassium (3.5-5.1) mmol/L Chloride (98-107) mmol/L Carbon Dioxide (22-30) mmol/L Anion Gap (5-15) MEQ/L BUN (7-17) mg/dL Creatinine (0.52-1.04) mg/dL Estimated GFR ML/MIN Glucose (74-106) mg/dL POC Glucometer 419 H 482 H (74 to 106) mg/dL Calcium (8.4-10.2) mg/dL Total Bilirubin (0.2-1.3) mg/dL AST (14-36) U/L ALT (0-35) U/L Alkaline Phosphatase (38-126) U/L Serum Total Protein (6.3-8.2) g/dL Albumin (3.5-5.0) g/dL ABO Group A Rh Factor POSITIVE Antibody Screen NEGATIVE (NEGATIVE) 11/12/23 11/12/23 Range/Units 04:00 04:00 WBC 11.9 H (3.98-10.04) x10^3/uL RBC 4.42 (3.93-5.22) x10^6/uL Hgb 12.8 (11.2-15.7) g/dL Hct 39.7 (34.1-44.9) % MCV 89.8 (79.4-94.8) fL MCH 29.0 (25.6-32.2) pg MCHC 32.2 (32.2-35.5) g/dL RDW 19.2 H (11.7-14.4) % Plt Count 409 H (182-369) x10^3/uL MPV 9.3 L (9.4-12.3) fL Sodium 137 (135-145) mmol/L Potassium 3.6 (3.5-5.1) mmol/L Chloride 105 (98-107) mmol/L Carbon Dioxide 23 (22-30) mmol/L Anion Gap 13.1 (5-15) MEQ/L BUN 29 H (7-17) mg/dL Creatinine 0.87 (0.52-1.04) mg/dL Estimated GFR 75.3 ML/MIN Glucose 532 H* (74-106) mg/dL POC Glucometer (74 to 106) mg/dL Calcium 9.1 (8.4-10.2) mg/dL Total Bilirubin 0.30 (0.2-1.3) mg/dL AST 28 (14-36) U/L ALT 42 H (0-35) U/L Alkaline Phosphatase 176 H (38-126) U/L Serum Total Protein 6.3 (6.3-8.2) g/dL Albumin 3.4 L (3.5-5.0) g/dL ABO Group Rh Factor Antibody Screen (NEGATIVE) - Progress Progress: pain not gone completely Progress Note: Patient has mildly displaced intertrochanteric hip fracture on the right. Patient not a candidate to keep here due to multiple comorbidities. Discussed case with Dr. Sharma orthopedic surgeon at [facility] who accepted to consult on patient at [phone] this morning and discussed admission with hospitalist Dr. Ponce at [facility] at 606 this morning. Discuss[address] with Dr.: Other (krissy) Will see patient in: hospital (observation) Counseled pt/family regarding: lab results, diagnosis, need for follow-up, rad results Medical Desision Making - Diagnostic Testing Diagnostic test were ordered, analyzed, and reviewed by me: Yes Radiological Interpretation: Interpreted by me, Reviewed by me, Teleradiologist Report - Risk of complications The pt has a mod risk of morbidity or mortality based on: Need for prescription drug management The pt has a high risk of morbidity or mortality based on: Decision regarding hospitilization or escalation of hosp level of care - Departure Departure Disposition: Transfer Clinical Impression: Intertrochanteric fracture of right hip, Diabetes mellitus, insulin dependent (IDDM), uncontrolled, Right hip pain, Lung cancer Condition: Stable Critical Care Time: No Referrals: LYUDMILA ARIAS MD [Primary Care Provider] - Follow up/PCP as directed Instructions: Hip Fracture (DC)
[2023-11-12] MEDS ORDERED: Hydromorphone 1 mg/ml Injection ONE ×2 (03:18→04:41)
[2023-11-12] MEDS ORDERED: Zofran 4 MG/2 ML VIAL ONE (03:18)
[2023-11-12] MEDS: Hydromorphone 1 mg/ml Injection IV ONE ×2 (03:21→04:43)
[2023-11-12] MEDS: Zofran 4 MG/2 ML VIAL IV ONE (03:21)
[2023-11-12 04:29] LABS: ALBUMIN 3.4 g/dL (3.5-5.0); ANION GAP 13.1 MEQ/L (5-15); BILIRUBIN,TOTAL 0.3 mg/dL (0.2-1.3); Calcium 9.1 mg/dL (8.4-10.2); Creatinine 1 0.87 mg/dL (0.52-1.04); EST GLOMERULAR FILTRATION RATE 75.3 ML/MIN; Hematocrit 39.7 % (34.1-44.9); Hemoglobin 12.8 g/dL (11.2-15.7); Mean Cell Volume 89.8 fL (79.4-94.8); Mean Corpuscular Hgb Concent. 32.2 g/dL (32.2-35.5); Mean Platelet Volume 9.3 fL (9.4-12.3); Platelet Count 409 x10^3/uL (182-369); Potassium 3.6 mmol/L (3.5-5.1); Red Blood Count 4.42 x10^6/uL (3.93-5.22); Red Cell Distribution Width 19.2 % (11.7-14.4); Total Protein 6.3 g/dL (6.3-8.2); White Blood Count 11.9 x10^3/uL (3.98-10.04)
--- NOTE | 2023-11-12 05:21 | XRAY ---
CLINICAL HISTORY: pain, fall COMPARISON: CT abdomen and pelvis, dated 07/09/2023 TECHNIQUE: A CT scan of the right femur without IV contrast was performed with sagittal and coronal multiplanar reconstruction. One of the following dose reduction techniques was utilized for this exam.Automated exposure control, adjustment of the mA and/or kV according to patient size, and use of iterative reconstruction. FINDINGS: Comminuted intertrochanteric fracture of the right femoral neck with mildly displaced bone fragments. Diffuse decrease in bone density. Mild degenerative changes of the right hip joint. No lytic or sclerotic bone lesions. IMPRESSION: 1. New interval mildly displaced comminuted intertrochanteric fracture of the right femoral neck. 2. The right hip joint is intact yet shows mild degenerative changes. [facility] ER was called at [phone] at 5:13 AM EST, 11/12/2023 and results were verbally communicated to Nurse Keysha. Electronically Signed by: Kishore Al MD. (11/12/2023 05:17:07 EDT)
[2023-11-12 05:53] LABS: ABO TYPING A; Antibody Screen NEGATIVE (NEGATIVE); RH TYPING POSITIVE
[2023-11-12] MEDS ORDERED: HUMALOG ONE (06:14)
[2023-11-12] MEDS: HUMALOG SQ ONE (06:15)
[2023-11-12 06:42] VITALS: RESP 18
[2023-11-12 08:17] VITALS: BP 136/65; PULSE 70
--- NOTE | 2023-11-12 08:17 | XRAY ---
Indication: Pain following fall. Comparison: None 2 view right elbow demonstrates osteopenia. No other bony, articular, or soft tissue abnormalities.
--- NOTE | 2023-11-12 08:17 | XRAY ---
Indication: Pain following fall. Comparison: January 07, 2021 2 View right wrist demonstrates osteopenia, old distal radius fracture, old nonunited ulnar styloid fracture, mild 1st metacarpal multangular scaphoid degenerative changes, and mild scattered vascular calcifications. No other bony, articular, or soft tissue abnormalities.
--- NOTE | 2023-11-12 08:19 | XRAY ---
Indication: Pain following fall. Comparison: None 3 view right knee demonstrates osteopenia and moderate scattered vascular calcifications. No other bony, articular, or soft tissue abnormalities.
--- NOTE | 2023-11-12 08:21 | XRAY ---
Indication: Pain following fall. Comparison: AP pelvis June 06, 2023. 2 view right hip demonstrates new nondisplaced intertrochanteric fracture. Stable osteopenia, moderate lower lumbar degenerative changes, moderate scattered vascular calcifications, and right gluteal calcified injection granuloma. No other bony, articular, or soft tissue abnormalities.
[2023-11-13 08:22] VITALS: O2SAT 98
== END 2023-11-12 08:20 | disposition short-term general hospital (02) ==
LOC: ED 02:40
DX: S72.144A Nondisplaced intertrochanteric fracture of right femur, initial encounter for closed fracture (principal); W18.39XA Other fall on same level, initial encounter; Y92.002 Bathroom of unspecified non-institutional (private) residence as the place of occurrence of the external cause; E11.65 Type 2 diabetes mellitus with hyperglycemia; M25.551 Pain in right hip; C34.90 Malignant neoplasm of unspecified part of unspecified bronchus or lung; M25.521 Pain in right elbow; E78.5 Hyperlipidemia, unspecified; I10 Essential (primary) hypertension; Z79.4 Long term (current) use of insulin; Z79.899 Other long term (current) drug therapy; Z72.0 Tobacco use
CPT/HCPCS: 36000; 36415; 73070; 73100; 73502; 73560; 73700; 80053; 82947; 85027; 86850; 86900; 86901; 96372; 96374; 96375; 96376; 99285; J1170; J1817; J2405

== ENCOUNTER 2023-12-04 10:18 | Emergency (ER) | payer BC ==
[2023-12-04 10:32] VITALS: TEMP 97.6
--- NOTE | 2023-12-04 10:34 | ERPHSYRPT ---
- History of Present Illness Time Seen by Provider: 12/04/23 10:33 Historian: patient, family Exam Limitations: no limitations Patient Subjective Stated Complaint: Pt states "I have had some surgeries recently and my belly was acting up so I went on flagyl on the and now I am having horrible diarrhea, I do not want to eat, I am not drinking>" Triage Nursing Assessment: Pt presented alert and oriented X 3, skin pwd. pt ambulates with a limp, pt has broken hip pt in no apparent distress. Physician History: This is a 63-year-old white female patient who arrives by private vehicle and brought in by her daughter. Patient has been feeling weak and has had diarrhea for several days after being started on an antibiotic in the distant past. However that antibiotic was stopped several days ago. Patient has been in the detention. Patient called her primary care provider who then called the patient in Flagyl thinking it might be C. difficile toxin. Patient's primary care provider is Dr. Arias, patient's rigger chief is Dr. Aggarwal and patient's quality control coordinator is Dr. Ritter. The Flagyl was started on 11/29/2023. The diarrhea and weakness is worse despite Flagyl treatment. She does not have an appetite. Patient has a history of lung cancer and is status post left lower lung lobectomy followed by chemotherapy in the past. Patient recently underwent surgeries for a left elbow fracture and a hip fracture. Patient has chronic renal disease, history of coronary disease (cardiac stents and is on Eliquis), COPD, hyperlipidemia, hypertension, gastroesophageal reflux disease diabetes and anxiety. Timing/Duration: day(s), worse Activities at Onset: none Abdominal Pain Onset Location: generalized abdomen Severity of Pain-Max: mild Severity of Pain-Current: mild Modifying Factors: Improves With: other (Diarrhea) Associated Symptoms: diarrhea, loss of appetite, weakness Previous symptoms: same symptoms as today, recently treated Allergies/Adverse Reactions: orphenadrine citrate [From Norflex] Allergy (Intermediate, Verified 11/12/23 02:57) severe vomiting adhesive tape Allergy (Verified 11/12/23 02:57) levofloxacin [From Levaquin] Adverse Reaction (Mild, Verified 11/12/23 02:57) Nausea and Vomiting Home Medications: Promethazine HCl 25 mg [Phenergan 25 mg] 25 mg PO QID PRN 07/17/21 [History] Prochlorperazine Maleate [Compazine] 10 mg PO BIDPRN PRN 08/30/22 [History] Insulin Aspart [NovoLOG Insulin] 4 unit SQ AC 10/08/22 [History] Insulin Glargine,Hum.rec.anlog [Touvao Solostar] 15 unit SQ QHS 11/28/22 [History] Metoprolol Tartrate 50 mg [Lopressor 50 MG] 50 mg PO DAILY 11/28/22 [History] Gabapentin [Neurontin ] 300 mg PO HS 01/01/23 [History] Mirtazapine 30 mg [Remeron 30 mg] 30 mg PO HS 01/01/23 [History] metroNIDAZOLE [Metronidazole] 500 mg PO TID 12/04/23 [History] Hx Tetanus, Diphtheria Vaccination/Date Given: No Hx Influenza Vaccination/Date Given: Yes Hx Pneumococcal Vaccination/Date Given: Yes Immunizations Up to Date: No Travel Risk - International Travel Have you traveled outside of the country in past 3 weeks: No - Emerging Infectious Disease Are you exhibiting symptoms associated with any current EIDs: Yes Symptoms: Diarrhea - Review of Systems Constitutional: Weakness Eyes: No Symptoms Ears, Nose, & Throat: No Symptoms Respiratory: No Symptoms Cardiac: No Symptoms Abdominal/Gastrointestinal: Diarrhea, Appetite Changes Genitourinary Symptoms: No Symptoms Musculoskeletal: No Symptoms Skin: No Symptoms Neurological: No Symptoms Psychological: No Symptoms Endocrine: No Symptoms Hematologic/Lymphatic: No Symptoms Immunological/Allergic: No Symptoms All Other Systems: Reviewed and Negative - Past Medical History Pertinent Past Medical History: Yes Neurological History: No Pertinent History ENT History: Cataracts Cardiac History: Coronary Artery Disease, High Cholesterol, Hypertension Respiratory History: COPD, Lung Cancer Endocrine Medical History: Diabetes Type II Musculoskeletal History: Fractures GI Medical History: GERD History: Renal Disease Psycho-Social History: Anxiety, Depression Female Reproductive Disorders: No Pertinent History Other Medical History: Previous left leg fx many years ago,rt wrist fx with cast. left lower lobe lung cancer. chemo - Past Surgical History Past Surgical History: Yes Neuro Surgical History: No Pertinent History Cardiac: Cardiac Catheterization, Cardiac Stent Respiratory: Lobectomy Gastrointestinal: Cholecystectomy Genitourinary: No Pertinent History Musculoskeletal: Other Female Surgical History: Tubal Ligation Other Surgical History: BUNONECTOMY. BACK SURGERY X2, right upper chest port placement. LL lung lobectomy Significant Family History: heart disease, diabetes, hypertension - Social History Smoking Status: Current every day smoker How long have you smoked: 50 years Exposure to second hand smoke: Yes Alcohol Use: None Drug Use: none Patient Lives Alone: No - Social Determinants of Health Will the patient participate in the screening: Yes Do you worry about a steady place to live?: No Do you have any problems with any of the following?: No known problems In the past 12 months,have you had to go without utilities?: No Transportation Issues: No Has anyone in your support network made you feel unsafe?: No Have you or anyone in your house had to go without enough: No - Nursing Vital Signs Nursing Vital Signs: Initial Vital Signs Temperature 97.6 F 12/04/23 10:27 Pulse Rate 98 H 12/04/23 10:27 Respiratory Rate 18 12/04/23 10:27 Blood Pressure 133/84 12/04/23 10:27 O2 Sat by Pulse Oximetry 99 12/04/23 10:27 Pain Scale Pain Intensity 2 - Physical Exam General Appearance: no apparent distress, alert, anxiety, thin Eye Exam: PERRL/EOMI, eyes nml inspection Ears, Nose, Throat Exam: normal ENT inspection, moist mucous membranes Neck Exam: normal inspection, non-tender, supple, full range of motion Respiratory Exam: normal breath sounds, lungs clear, airway intact, No chest tenderness, No respiratory distress Cardiovascular Exam: regular rate/rhythm, normal heart sounds, normal peripheral pulses Gastrointestinal/Abdomen Exam: soft, normal bowel sounds, No tenderness Pelvic Exam: not done Rectal Exam: not done Back Exam: normal inspection, normal range of motion, No CVA tenderness, No vertebral tenderness Extremity Exam: normal inspection, normal range of motion, pelvis stable Neurologic Exam: alert, oriented x 3, cooperative, general expeditor II-XII nml as tested, sensation nml Skin Exam: normal color, warm, dry Lymphatic Exam: No adenopathy SpO2 Interpretation: normal SpO2: 99 O2 Delivery: Room Air - Course Nursing assessment & vital signs reviewed: Yes Ordered Tests: Active Orders 24 hr Category Date Time Status EKG-ER Only STAT Care 12/04/23 12:38 Active IV Insertion STAT Care 12/04/23 10:34 Active ABDOMEN AND PELVIS W/0 CONTRAS [CT] Stat Exams 12/04/23 10:35 Completed AMYLASE Stat Lab 12/04/23 10:55 Completed BLOOD CULTURE Stat Lab 12/04/23 10:51 Received CBC W DIFF Stat Lab 12/04/23 10:55 Completed CMP Stat Lab 12/04/23 10:55 Completed LIPASE Stat Lab 12/04/23 10:55 Completed Lactic Acid Stat Lab 12/04/23 10:49 Completed MAGNESIUM Stat Lab 12/04/23 10:55 Completed MONO SCREEN Stat Lab 12/04/23 10:55 Completed OB-FECAL SCREEN Stat Lab 12/04/23 Ordered TROPONIN Q4H Lab 12/04/23 10:55 Completed TROPONIN Q4H Lab 12/04/23 16:45 Ordered TROPONIN Q4H Lab 12/04/23 20:45 Ordered UA W/RFX UR CULTURE Stat Lab 12/04/23 10:34 Ordered Medication Summary Generic Name Dose Route Start Last Admin Trade Name Freq PRN Reason Stop Dose Admin Sodium Chloride 1,000 mls @ 250 mls/hr 12/04/23 10:45 12/04/23 10:53 Sodium Chloride 0.9% 1000 Ml IV 01/03/24 10:44 250 mls/hr .Q4H NISSA Administration Discontinued Medications Generic Name Dose Route Start Last Admin Trade Name Freq PRN Reason Stop Dose Admin Lactated Ringer's 1,000 mls @ 999 mls/hr 12/04/23 12:27 12/04/23 14:34 Lactated Ringers IV 12/04/23 13:27 Infused .Q1H1M ONE Infusion Lactated Ringer's Confirm 12/04/23 13:29 Lactated Ringers Administered 12/04/23 13:30 Dose 1,000 mls @ ud IV .STK-MED ONE Magnesium Oxide 400 mg 12/04/23 12:16 12/04/23 12:30 Magnesium Oxide 400 Mg Tablet PO 12/04/23 12:17 400 mg STAT ONE Administration Magnesium Oxide Confirm 12/04/23 12:29 Magnesium Oxide 400 Mg Tablet Administered 12/04/23 12:30 Dose 400 mg .ROUTE .STK-MED ONE Potassium Chloride 20 meq 12/04/23 12:15 12/04/23 12:30 Potassium Chloride Tab 10 Meq Tab PO 08/05/24 12:16 20 meq STAT ONE Administration Potassium Chloride Confirm 12/04/23 12:29 Potassium Chloride Tab 10 Meq Tab Administered 12/04/23 12:30 Dose 20 meq .ROUTE .STK-MED ONE Lab/Rad Data: Laboratory Result Diagrams 12/04/23 10:55 12/04/23 10:55 Laboratory Results 12/04/23 12/04/23 12/04/23 Range/Units 10:55 10:55 10:55 WBC (3.98-10.04) x10^3/uL RBC (3.93-5.22) x10^6/uL Hgb (11.2-15.7) g/dL Hct (34.1-44.9) % MCV (79.4-94.8) fL MCH (25.6-32.2) pg MCHC (32.2-35.5) g/dL RDW (11.7-14.4) % Plt Count (182-369) x10^3/uL MPV (9.4-12.3) fL Gran % (34.0-71.1) % Immature Gran % (Auto) (0.001-0.429) % Nucleat RBC Rel Count (0.00-0.2) % Eos # (Auto) (0.04-0.36) x10^3/uL Immature Gran # (Auto) (0.001-0.031) x10^3u/L Absolute Lymphs (auto) (1.18-3.74) x10^3/uL Absolute Monos (auto) (0.24-0.86) x10^3/uL Absolute Nucleated RBC (0.00-0.012) x10^3u/L Lymphocytes % (19.3-51.7) % Monocytes % (4.7-12.5) % Eosinophils % (0.7-5.8) % Basophils % (0.1-1.2) % Absolute Granulocytes (1.56-6.13) x10^3/uL Basophils # (0.01-0.08) x10^3/uL Sodium (135-145) mmol/L Potassium (3.5-5.1) mmol/L Chloride (98-107) mmol/L Carbon Dioxide (22-30) mmol/L Anion Gap (5-15) MEQ/L BUN (7-17) mg/dL Creatinine (0.52-1.04) mg/dL Estimated GFR ML/MIN Glucose (74-106) mg/dL Lactic Acid (0.4-2.0) Calcium (8.4-10.2) mg/dL Magnesium (1.6-2.3) mg/dL Total Bilirubin (0.2-1.3) mg/dL AST (14-36) U/L ALT (0-35) U/L Alkaline Phosphatase (38-126) U/L Troponin I < 0.012 (0.000-0.033) ng/mL Serum Total Protein (6.3-8.2) g/dL Albumin (3.5-5.0) g/dL Amylase (30-110) U/L Lipase (23-300) U/L Monoscreen NEGATIVE (NEGATIVE) Influenza Type A Ag NEGATIVE (NEGATIVE) Influenza Type B Ag NEGATIVE (NEGATIVE) RSV (PCR) NEGATIVE (NEGATIVE) SARS-CoV-2 (PCR) NEGATIVE (NEGATIVE) 12/04/23 12/04/23 12/04/23 Range/Units 10:55 10:55 10:49 WBC 8.4 (3.98-10.04) x10^3/uL RBC 3.97 (3.93-5.22) x10^6/uL Hgb 11.8 (11.2-15.7) g/dL Hct 37.2 (34.1-44.9) % MCV 93.7 (79.4-94.8) fL MCH 29.7 (25.6-32.2) pg MCHC 31.7 L (32.2-35.5) g/dL RDW 16.7 H (11.7-14.4) % Plt Count 463 H (182-369) x10^3/uL MPV 8.4 L (9.4-12.3) fL Gran % 69.2 (34.0-71.1) % Immature Gran % (Auto) 0.2 (0.001-0.429) % Nucleat RBC Rel Count 0.0 (0.00-0.2) % Eos # (Auto) 0.57 H (0.04-0.36) x10^3/uL Immature Gran # (Auto) 0.02 (0.001-0.031) x10^3u/L Absolute Lymphs (auto) 1.28 (1.18-3.74) x10^3/uL Absolute Monos (auto) 0.63 (0.24-0.86) x10^3/uL Absolute Nucleated RBC 0.00 (0.00-0.012) x10^3u/L Lymphocytes % 15.2 L (19.3-51.7) % Monocytes % 7.5 (4.7-12.5) % Eosinophils % 6.8 H (0.7-5.8) % Basophils % 1.1 (0.1-1.2) % Absolute Granulocytes 5.85 (1.56-6.13) x10^3/uL Basophils # 0.09 H (0.01-0.08) x10^3/uL Sodium 140 (135-145) mmol/L Potassium 3.4 L (3.5-5.1) mmol/L Chloride 111 H (98-107) mmol/L Carbon Dioxide 26 (22-30) mmol/L Anion Gap 7.3 (5-15) MEQ/L BUN 15 (7-17) mg/dL Creatinine 0.62 (0.52-1.04) mg/dL Estimated GFR 100.6 ML/MIN Glucose 118 H (74-106) mg/dL Lactic Acid 1.1 (0.4-2.0) Calcium 8.9 (8.4-10.2) mg/dL Magnesium 1.5 L (1.6-2.3) mg/dL Total Bilirubin 0.30 (0.2-1.3) mg/dL AST 20 (14-36) U/L ALT 11 (0-35) U/L Alkaline Phosphatase 164 H (38-126) U/L Troponin I (0.000-0.033) ng/mL Serum Total Protein 6.4 (6.3-8.2) g/dL Albumin 3.3 L (3.5-5.0) g/dL Amylase 59 (30-110) U/L Lipase 18 L (23-300) U/L Monoscreen (NEGATIVE) Influenza Type A Ag (NEGATIVE) Influenza Type B Ag (NEGATIVE) RSV (PCR) (NEGATIVE) SARS-CoV-2 (PCR) (NEGATIVE) - Progress Progress: improved, re-examined Progress Note: 12/04/23 11:40 I medical decision making and the assignment of moderate to high complexity of this patient's medical issue today is based on review of the patient's past medical history, review the patient's medication list, review of the patient's drug allergy list, history present no send physical findings on examination. The workup in the patient includes placement of intravenous line, infusion of normal saline solution, CBC, CMP, amylase, lipase, magnesium level, C. difficile toxin, viral studies and monotest, CT scan of the abdomen pelvis without contrast and urinalysis. Differential diagnosis includes but is not limited to pancreatitis, dehydration, urinary tract infection, colitis, anemia 12/04/23 12:[address] scan of the abdomen pelvis without contrast was interpreted by the radiologist and I reviewed the impression. Today's study is compared to similar study dated 09/08/2023. There is grossly stable pulmonary emphysema, pulmonary fibrosis/scarring and small left pleural effusion is incompletely visualized. There is an abnormally distended biliary tree in this postcholecystectomy patient. The remainder are chronic findings with no new or acute abnormality in this noncontrasted study. 12/04/23 14:47 I interpreted the patient's laboratory data and results. Based on her l aboratory data results, the patient does not have any acute or emergent medical issue. Patient had a urine specimen with stool in it/stool specimen is urine and it. We therefore required the 2 specimens to be separate. However, the patient states she is feeling better and does not want to wait to provide separate stool and urine. She wants to be discharged to home. She will sign the refusal of treatment. Counseled pt/family regarding: lab results, rad results Medical Desision Making - Independent Historian Additional History obtained from: Family - Diagnostic Testing Diagnostic test were ordered, analyzed, and reviewed by me: Yes Radiological Interpretation: Reviewed by me, Teleradiologist Report - Risk of complications Low Risk: Low risk of morbidity from additional dx testing or treatment - Departure Departure Disposition: Home Clinical Impression: Diarrhea, Weakness Condition: Stable Critical Care Time: No Referrals: LYUDMILA ARIAS MD [Primary Care Provider] - Follow up/PCP as directed Additional Instructions: Drink plenty of clear liquids before advancing your diet. Since you have been rehydrated and there is no evidence of any acute or emergent finding on your CT scan, you may use [id number] Imodium as instructed on the package to help in relieving your diarrhea symptoms. Call your primary care provider's office today, 12/04/2023, to make arranges for follow-up appointment for further evaluation and management and to be seen in the next 2 to 3 days.
[2023-12-04] MEDS ORDERED: Sodium Chloride 0.9% 1000 ML 1,000 ML ONE (10:39)
[2023-12-04] MEDS: Sodium Chloride 0.9% 1000 ML 1,000 ML IV SCH (10:53)
[2023-12-04 10:56] LABS: Absolute Neutrophil Ct (ANC) 5.85 x10^3/uL (1.56-6.13); BASOPHIL % 1.1 % (0.1-1.2); Basophil (Absolute #) 0.09 x10^3/uL (0.01-0.08); Eosinophil % 6.8 % (0.7-5.8); Eosinophil (Absolute #) 0.57 x10^3/uL (0.04-0.36); Hematocrit 37.2 % (34.1-44.9); Hemoglobin 11.8 g/dL (11.2-15.7); IMMATURE GRAN # 0.02 x10^3u/L (0.001-0.031); IMMATURE GRAN % 0.2 % (0.001-0.429); Lymphocyte (Absolute #) 1.28 x10^3/uL (1.18-3.74); Lymphocytes % 15.2 % (19.3-51.7); Mean Cell Volume 93.7 fL (79.4-94.8); Mean Corpuscular Hemoglobin 29.7 pg (25.6-32.2); Mean Corpuscular Hgb Concent. 31.7 g/dL (32.2-35.5); Mean Platelet Volume 8.4 fL (9.4-12.3); Monocyte (Absolute #) 0.63 x10^3/uL (0.24-0.86); Monocytes % 7.5 % (4.7-12.5); Neutrophil % 69.2 % (34.0-71.1); Platelet Count 463 x10^3/uL (182-369); Red Blood Count 3.97 x10^6/uL (3.93-5.22); Red Cell Distribution Width 16.7 % (11.7-14.4); White Blood Count 8.4 x10^3/uL (3.98-10.04)
[2023-12-04 11:13] LABS: ALBUMIN 3.3 g/dL (3.5-5.0); ANION GAP 7.3 MEQ/L (5-15); BILIRUBIN,TOTAL 0.3 mg/dL (0.2-1.3); Calcium 8.9 mg/dL (8.4-10.2); Creatinine 1 0.62 mg/dL (0.52-1.04); EST GLOMERULAR FILTRATION RATE 100.6 ML/MIN; MAGNESIUM 1.5 mg/dL (1.6-2.3); Potassium 3.4 mmol/L (3.5-5.1); Total Protein 6.4 g/dL (6.3-8.2)
[2023-12-04 11:39] LABS: INFLUENZA A NEGATIVE (NEGATIVE); INFLUENZA B NEGATIVE (NEGATIVE); RESPIRATORY SYNCTIAL VIRUS NEGATIVE (NEGATIVE); SARS-CoV-2 Xpert Express NEGATIVE (NEGATIVE)
--- NOTE | 2023-12-04 12:19 | XRAY ---
Indication: Abdominal pain, weakness, and diarrhea. Multiple contiguous axial images obtained through the abdomen and pelvis without contrast. Comparison: July 09, 2023 Lung bases again demonstrates pulmonary emphysema, scattered peripheral fibrosis/scarring, and tiny bilateral calcified granulomas. Previous incompletely visualized small left pleural effusion grossly unchanged. Heart not enlarged. Noncontrasted stomach and bowel loops nonobstructed. Again splenic calcified granulomas and cholecystectomy. No free fluid/air. There remains abnormal distended biliary tree with common bile duct up to 1.7 cm diameter unchanged. Right kidney again smaller in size with grossly stable nonspecific inferior pole microcalcifications. No hydronephrosis or hydroureter. Uterus again demonstrates benign-appearing calcifications. Remaining liver, pancreas, spleen, adrenal glands, kidneys, ureters, and bladder are unremarkable for noncontrast exam. Again extensive scattered aortoiliac calcifications without AAA. Osseous structures intact again with osteopenia, mild/moderate degenerative changes throughout lumbar spine, and moderate dextroscoliosis centered at L3. Proximal right femur demonstrates new orthopedic hardware fixating intertrochanteric fracture. Impression: 1. Grossly stable pulmonary emphysema, pulmonary fibrosis/scarring, and incompletely visualized small left pleural effusion. 2. Continued abnormal distended biliary tree in this cholecystectomy patient. 3. Chronic findings including smaller right kidney with nonspecific inferior pole microcalcifications, benign-appearing uterine calcifications, arteriosclerotic disease, chronic bony findings, and/or granulomatous disease. 4. No new abnormalities on this noncontrast exam.
[2023-12-04] MEDS ORDERED: Klor Con ONE (12:29)
[2023-12-04] MEDS ORDERED: MAG-OX 400 ONE (12:29)
[2023-12-04] MEDS: Klor Con PO ONE (12:30)
[2023-12-04] MEDS: MAG-OX 400 PO ONE (12:30)
[2023-12-04] MEDS ORDERED: Lactated Ringers 1,000 ML IV ONE (13:29)
[2023-12-04] MEDS: Lactated Ringers 1,000 ML IV ONE (13:30)
[2023-12-04 14:50] VITALS: BP 153/86; PULSE 88; RESP 20; O2SAT 99
== END 2023-12-04 15:11 | disposition home or self-care (01) ==
LOC: ED 10:18
DX: R53.1 Weakness (principal); R19.7 Diarrhea, unspecified; I12.9 Hypertensive chronic kidney disease with stage 1 through stage 4 chronic kidney disease, or unspecified chronic kidney disease; E11.22 Type 2 diabetes mellitus with diabetic chronic kidney disease; N18.9 Chronic kidney disease, unspecified; E78.5 Hyperlipidemia, unspecified; Z79.4 Long term (current) use of insulin; Z79.899 Other long term (current) drug therapy; Z72.0 Tobacco use
CPT/HCPCS: 0241U; 36000; 36415; 74176; 80053; 82150; 83605; 83690; 83735; 84484; 85025; 86308; 87040; 93005; 96360; 99284; J1642; A9270-GY

== ENCOUNTER 2024-01-01 11:25 | Observation (INO) | payer BC ==
[2024-01-01 12:28] LABS: Absolute Neutrophil Ct (ANC) 7.63 x10^3/uL (1.56-6.13); BASOPHIL % 0.4 % (0.1-1.2); Basophil (Absolute #) 0.04 x10^3/uL (0.01-0.08); Eosinophil % 0.2 % (0.7-5.8); Eosinophil (Absolute #) 0.02 x10^3/uL (0.04-0.36); Hematocrit 35.1 % (34.1-44.9); Hemoglobin 11.3 g/dL (11.2-15.7); IMMATURE GRAN # 0.02 x10^3u/L (0.001-0.031); IMMATURE GRAN % 0.2 % (0.001-0.429); Lymphocyte (Absolute #) 1.32 x10^3/uL (1.18-3.74); Lymphocytes % 13.9 % (19.3-51.7); Mean Cell Volume 91.9 fL (79.4-94.8); Mean Corpuscular Hemoglobin 29.6 pg (25.6-32.2); Mean Corpuscular Hgb Concent. 32.2 g/dL (32.2-35.5); Mean Platelet Volume 8.6 fL (9.4-12.3); Monocytes % 5.2 % (4.7-12.5); Neutrophil % 80.1 % (34.0-71.1); Platelet Count 537 x10^3/uL (182-369); Red Blood Count 3.82 x10^6/uL (3.93-5.22); Red Cell Distribution Width 14.6 % (11.7-14.4); White Blood Count 9.5 x10^3/uL (3.98-10.04)
[2024-01-01 12:50] LABS: ALBUMIN 2.6 g/dL (3.5-5.0); BILIRUBIN,TOTAL 0.1 mg/dL (0.2-1.3); Calcium 9.3 mg/dL (8.4-10.2); Creatinine 1 0.71 mg/dL (0.52-1.04); EST GLOMERULAR FILTRATION RATE 96.1 ML/MIN; MAGNESIUM 1.5 mg/dL (1.6-2.3); Potassium 3.4 mmol/L (3.5-5.1); Total Protein 5.7 g/dL (6.3-8.2)
--- NOTE | 2024-01-01 12:54 | ERPHSYRPT ---
- History of Present Illness Time Seen by Provider: 01/01/24 11:27 Source: patient, family Exam Limitations: no limitations Patient Subjective Stated Complaint: pt fell/passed out? while in the refrigerator and in her wheel chair and was found on the floor by her a nd unsure how long she had been on the floor, pt was placed on steroids 2 days ago and pt is now lethargic and weak Triage Nursing Assessment: Pt brought to the ER by her , vitals wnl, rates pain as 10/10, elham legs red and swollen, weak, lethargic, hx of recent fractured hip, pulses normal, skin n/w/d, no difficulty breathing, no notable injuries from fall Physician History: 63 years old female with multiple medical problems including history of lung cancer status post resection chemo/immunotherapy, had PET scan few days ago with favorable results per patient, on steroid for the last 3 days for off-and-on diarrhea presented in the ER with complaint of generalized weakness fatigue tiredness and some confusion per . Patient apparently has right hip fracture which was repaired couple months ago and is mostly wheelchair-bound, she fell off of her wheelchair last night and was found in front of refrigerator. She was not passed out but does report hitting her head. Complaining of minimal neck pain. report patient refused to get up this morning and some element of confusion as well. Has bilateral lower extremity swelling which is lately getting worse and also some redness. No fever or chills reported. Patient continues to smoke but denies any worsening of cough than usual smoker's cough. No chest pain or palpitations. No difficulty breathing. Allergies/Adverse Reactions: orphenadrine citrate [From Norflex] Allergy (Intermediate, Verified 01/01/24 21:46) severe vomiting adhesive tape Allergy (Verified 01/01/24 21:46) levofloxacin [From Levaquin] Adverse Reaction (Mild, Verified 01/01/24 21:46) Nausea and Vomiting Home Medications: Promethazine HCl 25 mg [Phenergan 25 mg] 25 mg PO QID PRN 07/17/21 [History] Prochlorperazine Maleate [Compazine] 10 mg PO BIDPRN PRN 08/30/22 [History] Insulin Aspart [NovoLOG Insulin] 0 unit SQ AC PRN 10/08/22 [History] Insulin Glargine,Hum.rec.anlog [Ward Laughlin] 11 unit SQ QHS 11/28/22 [History] Metoprolol Tartrate 50 mg [Lopressor 50 MG] 50 mg PO DAILY 11/28/22 [History] Gabapentin [Neurontin ] 300 mg PO HS 01/01/23 [History] Mirtazapine 30 mg [Remeron 30 mg] 30 mg PO HS 01/01/23 [History] ALPRAZolam 1 MG [Xanax 1 mg] 1 mg PO BID 01/01/24 [History] Diphenoxylate HCl/Atropine [Diphenoxylate-Atrop 2.5-0.025] 2.5 mg PO QIDPRN PRN 01/01/24 [History] Ergocalciferol (Vitamin D2) [Vitamin D2] 1,250 mcg PO WEEKLY 01/01/24 [History] Prednisone 10 mg [Deltasone 10 mg] 10 mg PO UD 01/01/24 [History] Hx Tetanus, Diphtheria Vaccination/Date Given: No Hx Influenza Vaccination/Date Given: Yes Hx Pneumococcal Vaccination/Date Given: Yes Travel Risk - International Travel Have you traveled outside of the country in past 3 weeks: No - Emerging Infectious Disease Are you exhibiting symptoms associated with any current EIDs: No Symptoms: Diarrhea - Review of Systems Constitutional: Fatigue, Weakness Eyes: No Symptoms Ears, Nose, & Throat: No Symptoms Respiratory: Cough Cardiac: Edema Abdominal/Gastrointestinal: Diarrhea Genitourinary Symptoms: No Symptoms Musculoskeletal: Arthralgias, Fall, Injury, Joint Pain Skin: Skin Lesions Neurological: Lethargy Endocrine: No Symptoms Hematologic/Lymphatic: No Symptoms Immunological/Allergic: No Symptoms - Past Medical History Pertinent Past Medical History: Yes Neurological History: No Pertinent History ENT History: Cataracts Cardiac History: Coronary Artery Disease, High Cholesterol, Hypertension Respiratory History: COPD, Lung Cancer Endocrine Medical History: Diabetes Type II Musculoskeletal History: Fractures GI Medical History: GERD History: Renal Disease Psycho-Social History: Anxiety, Depression Female Reproductive Disorders: No Pertinent History Other Medical History: Previous left leg fx many years ago,rt wrist fx with cast. left lower lobe lung cancer. chemo - Past Surgical History Past Surgical History: Yes Neuro Surgical History: No Pertinent History Cardiac: Cardiac Catheterization, Cardiac Stent Respiratory: Lobectomy Gastrointestinal: Cholecystectomy Genitourinary: No Pertinent History Musculoskeletal: Other Female Surgical History: Tubal Ligation Other Surgical History: BUNONECTOMY. BACK SURGERY X2, right upper chest port placement. LL lung lobectomy Significant Family History: heart disease, diabetes, hypertension - Social History Smoking Status: Current every day smoker How long have you smoked: 50 years Exposure to second hand smoke: Yes Alcohol Use: None Drug Use: none Patient Lives Alone: No - Social Determinants of Health Will the patient participate in the screening: Yes Do you worry about a steady place to live?: No Do you have any problems with any of the following?: No known problems In the past 12 months,have you had to go without utilities?: No Transportation Issues: No Has anyone in your support network made you feel unsafe?: No Have you or anyone in your house had to go without enough: No - Nursing Vital Signs Nursing Vital Signs: Initial Vital Signs Blood Pressure 129/81 01/01/24 11:39 O2 Sat by Pulse Oximetry 98 01/01/24 11:39 Pain Scale Pain Intensity 10 - Physical Exam General Appearance: no apparent distress, lethargy Eye Exam: PERRL/EOMI, eyes nml inspection Ears, Nose, Throat Exam: normal ENT inspection, moist mucous membranes Neck Exam: normal inspection, non-tender, supple, full range of motion Respiratory Exam: diminished breath sounds, No respiratory distress, No accessory muscle use Cardiovascular Exam: regular rate/rhythm, normal heart sounds, edema (2+ pitting edema) Gastrointestinal/Abdomen Exam: soft, normal bowel sounds Back Exam: normal inspection Extremity Exam: normal range of motion Neurologic Exam: alert, oriented x 3, cooperative, sensation nml, No normal mood/affect, No motor deficits Skin Exam: normal color SpO2 Interpretation: normal SpO2: 98 O2 Delivery: Room Air - Course EKG Interpreted by Me: RATE (74), Sinus Rhythm, NORMAL AXIS, NORMAL INTERVALS, Non-specific ST Changes Ordered Tests: Active Orders 24 hr Category Date Time Status Bedrest ROUTINE Activity 01/01/24 19:31 Active Up With Assistance ROUTINE Activity 01/01/24 19:31 Active Call Admit Doctor for Orders ON ADMISSION Care 01/01/24 19:31 Active Code Status Order ROUTINE Care 01/01/24 19:31 Active EKG-ER Only STAT Care 01/01/24 11:48 Completed Fall Protocol Q1H Care 01/01/24 19:31 Active IV Insertion STAT Care 01/01/24 11:48 Completed NPO (ED) STAT Care 01/01/24 11:48 Completed POCT Glucose Check ACHS Care 01/01/24 19:[address] in Observation ROUTINE Care 01/01/24 19:31 Active Telemetry q6h Care 01/01/24 19:31 Active CERVICAL SPINE WO CONTRAST [CT] Stat Exams 01/01/24 11:47 Completed CHEST WITHOUT CONTRAST [CT] Stat Exams 01/01/24 11:47 Completed HEAD WITHOUT CONTRAST [CT] Stat Exams 01/01/24 11:47 Completed BLOOD CULTURE Stat Lab 01/01/24 12:07 Received CBC W DIFF Stat Lab 01/01/24 12:20 Completed CK (IN-HOUSE) [CK-Creatinine Phosphokinase] Stat Lab 01/01/24 12:20 Completed CMP Stat Lab 01/01/24 12:20 Completed CULTURE,URINE Stat Lab 01/01/24 15:51 Received LIPASE Stat Lab 01/01/24 12:20 Completed Lactic Acid Stat Lab 01/01/24 12:25 Completed MAG [MAGNESIUM] Stat Lab 01/01/24 12:20 Completed NT PRO BNPII Stat Lab 01/01/24 12:20 Completed PROCALCITONIN Stat Lab 01/01/24 12:20 Completed TROPONIN Q4H Lab 01/01/24 12:20 Completed TROPONIN Q4H Lab 01/01/24 15:46 Completed TROPONIN Q4H Lab 01/01/24 20:42 Completed UA W/RFX UR CULTURE Stat Lab 01/01/24 15:51 Completed Urine Triage Profile Stat Lab 01/01/24 15:55 Completed Oxygen Nasal Cannula 2 lpm RT 01/01/24 19:31 Active Pulse Oximetry CONTINUOUS RT 01/01/24 19:31 Active Respiratory Therapy Consult ONCE RT 01/01/24 19:31 Active Transfer Order Routine Transfer 01/01/24 Completed Medication Summary Discontinued Medications Generic Name Dose Route Start Last Admin Trade Name Freq PRN Reason Stop Dose Admin Piperacillin Sod/Tazobactam 100 mls @ 200 mls/hr 01/01/24 16:03 01/01/24 16:20 Sod 3.375 gm/ Sodium Chloride IV 01/01/24 16:32 200 mls/hr STAT ONE Administration Sodium Chloride Confirm 01/01/24 16:13 Sodium Chloride 100ml Mini-Bag Plus Administered 01/01/24 16:14 Dose 100 mls @ ud IV .STK-MED ONE Piperacillin Sod/Tazobactam Sod Confirm 01/01/24 16:13 Piperacillin/Tazobactam Sodium 3.375 Gm Vial Administered 01/01/24 16:14 Dose 3.375 gm IV .STK-MED ONE Lab/Rad Data: Laboratory Result Diagrams 01/01/24 12:20 01/01/24 12:20 Laboratory Results 01/01/24 01/01/24 01/01/24 Range/Units 15:55 15:51 15:46 WBC (3.98-10.04) x10^3/uL RBC (3.93-5.22) x10^6/uL Hgb (11.2-15.7) g/dL Hct (34.1-44.9) % MCV (79.4-94.8) fL MCH (25.6-32.2) pg MCHC (32.2-35.5) g/dL RDW (11.7-14.4) % Plt Count (182-369) x10^3/uL MPV (9.4-12.3) fL Gran % (34.0-71.1) % Immature Gran % (Auto) (0.001-0.429) % Nucleat RBC Rel Count (0.00-0.2) % Eos # (Auto) (0.04-0.36) x10^3/uL Immature Gran # (Auto) (0.001-0.031) x10^3u/L Absolute Lymphs (auto) (1.18-3.74) x10^3/uL Absolute Monos (auto) (0.24-0.86) x10^3/uL Absolute Nucleated RBC (0.00-0.012) x10^3u/L Lymphocytes % (19.3-51.7) % Monocytes % (4.7-12.5) % Eosinophils % (0.7-5.8) % Basophils % (0.1-1.2) % Absolute Granulocytes (1.56-6.13) x10^3/uL Basophils # (0.01-0.08) x10^3/uL Sodium (135-145) mmol/L Potassium (3.5-5.1) mmol/L Chloride (98-107) mmol/L Carbon Dioxide (22-30) mmol/L Anion Gap (5-15) MEQ/L BUN (7-17) mg/dL Creatinine (0.52-1.04) mg/dL Estimated GFR ML/MIN Glucose (74-106) mg/dL Lactic Acid (0.4-2.0) Calcium (8.4-10.2) mg/dL Magnesium (1.6-2.3) mg/dL Total Bilirubin (0.2-1.3) mg/dL AST (14-36) U/L ALT (0-35) U/L Alkaline Phosphatase (38-126) U/L Creatine Kinase (30-135) U/L Troponin I < 0.012 (0.000-0.033) ng/mL NT-Pro-B Natriuret Pep (<300) pg/mL Serum Total Protein (6.3-8.2) g/dL Albumin (3.5-5.0) g/dL Lipase (23-300) U/L Procalcitonin (0.030-0.080) ng/mL Urine Color Yellow (Yellow) Urine Appearance Clear (Clear) Urine pH 6.0 (4.6-8.0) Ur Specific [place] 1.020 (1.005-1.030) Urine Protein Trace A (Negative) Urine Glucose (UA) Negative (Negative) mg/dL Urine Ketones Negative (Negative) Urine Blood Negative (Negative) Urine Nitrite Negative (Negative) Urine Bilirubin Negative (Negative) Urine Urobilinogen 0.2 (0.2) mg/dL Ur Leukocyte Esterase Negative (Negative) U Hyaline Cast (Auto) NONE SEEN (0-2) /LPF Urine Microscopic RBC 0-2 (0-5) /HPF Urine Microscopic WBC 0-2 (0-5) /HPF Ur Epithelial Cells None Seen (None Seen) /HPF Urine Bacteria Many A (None Seen) /HPF Urine Culture Reflexed YES (NO) Urine Opiates Level POSITIVE A (NEGATIVE) Ur Methadone NEGATIVE (NEGATIVE) Urine Barbiturates NEGATIVE (NEGATIVE) Ur Phencyclidine (PCP) NEGATIVE (NEGATIVE) Urine Amphetamine NEGATIVE (NEGATIVE) U Benzodiazepine Level POSITIVE A (NEGATIVE) Urine Cocaine NEGATIVE (NEGATIVE) Urine Marijuana (THC) NEGATIVE (NEGATIVE) 01/01/24 01/01/24 01/01/24 Range/Units 12:25 12:20 12:20 WBC (3.98-10.04) x10^3/uL RBC (3.93-5.22) x10^6/uL Hgb (11.2-15.7) g/dL Hct (34.1-44.9) % MCV (79.4-94.8) fL MCH (25.6-32.2) pg MCHC (32.2-35.5) g/dL RDW (11.7-14.4) % Plt Count (182-369) x10^3/uL MPV (9.4-12.3) fL Gran % (34.0-71.1) % Immature Gran % (Auto) (0.001-0.429) % Nucleat RBC Rel Count (0.00-0.2) % Eos # (Auto) (0.04-0.36) x10^3/uL Immature Gran # (Auto) (0.001-0.031) x10^3u/L Absolute Lymphs (auto) (1.18-3.74) x10^3/uL Absolute Monos (auto) (0.24-0.86) x10^3/uL Absolute Nucleated RBC (0.00-0.012) x10^3u/L Lymphocytes % (19.3-51.7) % Monocytes % (4.7-12.5) % Eosinophils % (0.7-5.8) % Basophils % (0.1-1.2) % Absolute Granulocytes (1.56-6.13) x10^3/uL Basophils # (0.01-0.08) x10^3/uL Sodium (135-145) mmol/L Potassium (3.5-5.1) mmol/L Chloride (98-107) mmol/L Carbon Dioxide (22-30) mmol/L Anion Gap (5-15) MEQ/L BUN (7-17) mg/dL Creatinine (0.52-1.04) mg/dL Estimated GFR ML/MIN Glucose (74-106) mg/dL Lactic Acid 0.7 (0.4-2.0) Calcium (8.4-10.2) mg/dL Magnesium (1.6-2.3) mg/dL Total Bilirubin (0.2-1.3) mg/dL AST (14-36) U/L ALT (0-35) U/L Alkaline Phosphatase (38-126) U/L Creatine Kinase 24 L (30-135) U/L Troponin I < 0.012 (0.000-0.033) ng/mL NT-Pro-B Natriuret Pep (<300) pg/mL Serum Total Protein (6.3-8.2) g/dL Albumin (3.5-5.0) g/dL Lipase (23-300) U/L Procalcitonin (0.030-0.080) ng/mL Urine Color (Yellow) Urine Appearance (Clear) Urine pH (4.6-8.0) Ur Specific [place] (1.005-1.030) Urine Protein (Negative) Urine Glucose (UA) (Negative) mg/dL Urine Ketones (Negative) Urine Blood (Negative) Urine Nitrite (Negative) Urine Bilirubin (Negative) Urine Urobilinogen (0.2) mg/dL Ur Leukocyte Esterase (Negative) U Hyaline Cast (Auto) (0-2) /LPF Urine Microscopic RBC (0-5) /HPF Urine Microscopic WBC (0-5) /HPF Ur Epithelial Cells (None Seen) /HPF Urine Bacteria (None Seen) /HPF Urine Culture Reflexed (NO) Urine Opiates Level (NEGATIVE) Ur Methadone (NEGATIVE) Urine Barbiturates (NEGATIVE) Ur Phencyclidine (PCP) (NEGATIVE) Urine Amphetamine (NEGATIVE) U Benzodiazepine Level (NEGATIVE) Urine Cocaine (NEGATIVE) Urine Marijuana (THC) (NEGATIVE) 01/01/24 01/01/24 Range/Units 12:20 12:20 WBC 9.5 (3.98-10.04) x10^3/uL RBC 3.82 L (3.93-5.22) x10^6/uL Hgb 11.3 (11.2-15.7) g/dL Hct 35.1 (34.1-44.9) % MCV 91.9 (79.4-94.8) fL MCH 29.6 (25.6-32.2) pg MCHC 32.2 (32.2-35.5) g/dL RDW 14.6 H (11.7-14.4) % Plt Count 537 H (182-369) x10^3/uL MPV 8.6 L (9.4-12.3) fL Gran % 80.1 H (34.0-71.1) % Immature Gran % (Auto) 0.2 (0.001-0.429) % Nucleat RBC Rel Count 0.0 (0.00-0.2) % Eos # (Auto) 0.02 L (0.04-0.36) x10^3/uL Immature Gran # (Auto) 0.02 (0.001-0.031) x10^3u/L Absolute Lymphs (auto) 1.32 (1.18-3.74) x10^3/uL Absolute Monos (auto) 0.50 (0.24-0.86) x10^3/uL Absolute Nucleated RBC 0.00 (0.00-0.012) x10^3u/L Lymphocytes % 13.9 L (19.3-51.7) % Monocytes % 5.2 (4.7-12.5) % Eosinophils % 0.2 L (0.7-5.8) % Basophils % 0.4 (0.1-1.2) % Absolute Granulocytes 7.63 H (1.56-6.13) x10^3/uL Basophils # 0.04 (0.01-0.08) x10^3/uL Sodium 137 (135-145) mmol/L Potassium 3.4 L (3.5-5.1) mmol/L Chloride 110 H (98-107) mmol/L Carbon Dioxide 25 (22-30) mmol/L Anion Gap 6.0 (5-15) MEQ/L BUN 25 H (7-17) mg/dL Creatinine 0.71 (0.52-1.04) mg/dL Estimated GFR 96.1 ML/MIN Glucose 182 H (74-106) mg/dL Lactic Acid (0.4-2.0) Calcium 9.3 (8.4-10.2) mg/dL Magnesium 1.5 L (1.6-2.3) mg/dL Total Bilirubin 0.10 L (0.2-1.3) mg/dL AST 17 (14-36) U/L ALT 8 (0-35) U/L Alkaline Phosphatase 100 (38-126) U/L Creatine Kinase (30-135) U/L Troponin I (0.000-0.033) ng/mL NT-Pro-B Natriuret Pep 308 (<300) pg/mL Serum Total Protein 5.7 L (6.3-8.2) g/dL Albumin 2.6 L (3.5-5.0) g/dL Lipase 11 L (23-300) U/L Procalcitonin 0.081 H (0.030-0.080) ng/mL Urine Color (Yellow) Urine Appearance (Clear) Urine pH (4.6-8.0) Ur Specific [place] (1.005-1.030) Urine Protein (Negative) Urine Glucose (UA) (Negative) mg/dL Urine Ketones (Negative) Urine Blood (Negative) Urine Nitrite (Negative) Urine Bilirubin (Negative) Urine Urobilinogen (0.2) mg/dL Ur Leukocyte Esterase (Negative) U Hyaline Cast (Auto) (0-2) /LPF Urine Microscopic RBC (0-5) /HPF Urine Microscopic WBC (0-5) /HPF Ur Epithelial Cells (None Seen) /HPF Urine Bacteria (None Seen) /HPF Urine Culture Reflexed (NO) Urine Opiates Level (NEGATIVE) Ur Methadone (NEGATIVE) Urine Barbiturates (NEGATIVE) Ur Phencyclidine (PCP) (NEGATIVE) Urine Amphetamine (NEGATIVE) U Benzodiazepine Level (NEGATIVE) Urine Cocaine (NEGATIVE) Urine Marijuana (THC) (NEGATIVE) - Progress Progress: unchanged Progress Note: 01/01/24 18:07 63 years old with multiple medical problems is evaluated in the ER for lethargy since she fell early this morning and was found on the floor. Patient is complaining of some neck pain. Placed in c-collar. She has essentially nonfocal neuroexam during my initial evaluation and later no deterioration. Although patient is sleepy. She has 2+ pitting edema in lower extremity with some redness and mild increased temperature bilaterally. She is hemodynamically stable. Workup showed normal white count, chemistries with mildly low potassium and magnesium and negative troponins. Normal lactate. Procalcitonin minimally elevated 0.081. Given a dose of Zosyn. Obtain CT head and cervical spine which are negative for any acute trauma findings but did show some nonacute ischemic encephalopathy and frontal lobe. Questionable concern for overdose on benzos which patient takes prescriptions. Urine drug screen is positive for opiates and benzos. Patient denies overdose. No suicidal or homicidal ideations. EKG is sinus rhythm with no ST elevations. CT chest showed mild pleural effusion, questionable consolidation versus atelectasis. Patient has antibiotics on board. Her encephalopathy/confusion/generalized weakness and slowness could be metabolic versus neurological. Discussed with Dr. Morrison hospitalist, reviewed history, workup, agreed with neuro consult and [facility] neurology has evaluated patient in the ER, do not think patient symptoms are secondary to neurological causes but more of a metabolic. Recommended ruling out all the metabolic causes and if negative then go ahead with MRI with and without for further evaluation as per neurology it seems like her CT findings are consistent with age-related changes. I have shared the results of workup with patient and family and plan of admission which they understand and agree. Taking into account patient's history, exam findings, amount of workup, interpretation of workup and data, discussion with weight loss sales consultant and hospitalist I believe it is a high-level complexity. Discussed with Dr.: Other ([facility] [place] and Dr. Morrison hospitalist) Will see patient in: hospital (observation) Counseled pt/family regarding: lab results, diagnosis, rad results Medical Desision Making - Independent Historian Additional History obtained from: Spouse - Discussion of managment Care discussed with:: specialist ([facility] [place] neurology/hospitalist Dr. Morrison) Reviewed:: Test results, Need for additional workup Agreed on:: Treatment plan, place in obs Will see patient: in hospital - Diagnostic Testing Diagnostic test were ordered, analyzed, and reviewed by me: Yes Radiological Interpretation: Reviewed by me, Teleradiologist Report - Risk of complications The pt has a mod risk of morbidity or mortality based on: Need for prescription drug management The pt has a high risk of morbidity or mortality based on: Decision regarding hospitilization or escalation of hosp level of care - Departure Departure Disposition: Observation Clinical Impression: Encephalopathy acute, Cellulitis, UTI (urinary tract infection) Condition: Stable Critical Care Time: No
[2024-01-01 12:59] LABS: PROCALCITONIN 0.081 ng/mL (0.030-0.080)
[2024-01-01] MEDS ORDERED: Sodium Chloride 100ML MINI-BAG PLUS 100 ML IV ONE (16:13)
[2024-01-01] MEDS ORDERED: PIPERACILLIN/TAZOBACTAM IV ONE (16:13)
[2024-01-01] MEDS: PIPERACILLIN/TAZOBACTAM 3.375 GM in Sodium Chloride 100ML MINI-BAG PLUS 100 ML IV ONE (16:20)
[2024-01-01 16:23] LABS: ADD URINE CULTURE? YES (NO); Appearance Clear (Clear); Bacteria Many /HPF (None Seen); Bilirubin Negative (Negative); Blood Negative (Negative); Epithelial Cells None Seen /HPF (None Seen); Glucose, Urine Negative (Negative); Hyaline Casts NONE SEEN /LPF (0-2); Ketones Negative (Negative); Leukocyte Esterase Negative (Negative); Nitrite Negative (Negative); Protein,Urine Dip Trace (Negative); RBC 0-2 /HPF (0-5); Urobilinogen 0.2 mg/dL (0.2); WBC 0-2 /HPF (0-5)
[2024-01-01 16:31] LABS: Amphetamine,Urine NEGATIVE (NEGATIVE); Barbiturate,Urine NEGATIVE (NEGATIVE); Benzodiazepine,Urine POSITIVE (NEGATIVE); Cocaine,Urine NEGATIVE (NEGATIVE); Methadone,Urine NEGATIVE (NEGATIVE); Opiate,Urine POSITIVE (NEGATIVE); PCP,Urine NEGATIVE (NEGATIVE); THC,Urine NEGATIVE (NEGATIVE)
--- NOTE | 2024-01-01 16:36 | XRAY ---
CLINICAL HISTORY: fall, confusion COMPARISON: None. TECHNIQUE: Thin axial CT of the cervical spine was performed with sagittal and coronal reconstructions without contrast. One of the following dose reduction techniques was utilized for this exam. Automated exposure control, adjustment of the mA and/or kV according to patient size, and use of iterative reconstruction. CTDI: 17.54mGy; DLP: 376.80mGy-cm. FINDINGS: Straightening with mild reversal of cervical curvature is noted from C3 to C6 vertebra. There is grade 1 anterolisthesis at C3-C4 and C4-C5 as well as grade 1 retrolisthesis C5-C6 levels. Markedly reduced intervertebral disc height is noted at C5-C6 level with endplate sclerosis and irregularity. The vertebral bodies are normal in height. No definite evidence of acute osseous injury. No lytic or sclerotic bone lesion. The craniovertebral measures are unremarkable. Multilevel facet arthropathic changes are noted. Level by Level analysis: C2-C3: No central canal or neuroforaminal stenosis. C3-C4: Disc osteophyte complexes causing mild bilateral neural foraminal narrowing. No significant central canal stenosis. C4-C5: Disc osteophyte complexes are noted at this level. No significant central canal or neural foraminal stenosis. C5-C6: Disc osteophyte complexes causing mild bilateral neural foraminal narrowing. Mild central canal stenosis. C6-C7: Disc osteophyte complexes causing minimal bilateral neural foraminal narrowing. No significant central canal stenosis. Slices through lung apices reveals moderate emphysematous changes with a 6.6 mm nodule in the right apex and pleural thickening with fibrotic scarring in the left apex. IMPRESSION: 1. No acute osseous abnormality is seen. 2. Moderate to marked cervical spondylosis with grade 1 anterolisthesis at C3-C4 and C4-C5 as well as grade 1 retrolisthesis C5-C6 levels. 3. Multilevel disc bulges/disc osteophyte complexes and reduced intervertebral disc height and endplate irregularities with sclerosis at C5-C6 level as described. 4. Lung findings are described with CT chest. Electronically Signed by: Kishore Al MD. (01/01/2024 16:31:34 EDT)
--- NOTE | 2024-01-01 16:40 | XRAY ---
CLINICAL HISTORY: fall, confusion COMPARISON: None. TECHNIQUE: An axial non-contrast CT scan of the brain was performed from the skull base to the high parietal region. One of the following dose reduction techniques were utilized for this exam: Automated exposure control, adjustment of the mA and/or kV according to patient size, and use of iterative reconstruction. FINDINGS: Brain Parenchyma: Subtle periventricular hypodensities at frontal horns, may represent non-acute ischemic encephalopathy, for further MRI evaluation. Ventricular System: Ventricles are normal in size and configuration. No evidence of hydrocephalus or ventricular enlargement. Subarachnoid Spaces: Normal sulci and cisterns. No evidence of subarachnoid hemorrhage or extra-axial fluid collections. Cerebellum and Brainstem: Normal size and signal. No masses, lesions, or areas of abnormal signal. Orbits: Normal appearance of the globes, optic nerves, and extraocular muscles. No evidence of orbital masses or abnormal signal. Sinuses: Clear paranasal sinuses. No evidence of sinusitis or mucosal thickening. Mastoid Air Cells: Clear mastoid air cells. No evidence of mastoiditis. Skull and Meninges: Normal skull morphology. No evidence of meningeal thickening. IMPRESSION: 1. Subtle periventricular hypodensities at frontal horns may represent non-acute ischemic encephalopathy, for further MRI evaluation. 2. No acute intracranial abnormality is present. 3. Age-matched involutional brain changes. 4. Early changes of a stroke may not be detected on a CT scan. If strong clinical suspicion of stroke then suggest MRI with diffusion-weighted imaging. Electronically Signed by: Kishore Al MD. (01/01/2024 16:35:32 EDT)
--- NOTE | 2024-01-01 16:44 | XRAY ---
CLINICAL HISTORY: fall, confusion COMPARISON: Prior CT dated 07/09/2023 TECHNIQUE: Contiguous 3.[address] images of the chest were acquired without administration of intravenous contrast. Coronal and sagittal reconstruction were obtained. One of the following dose reduction techniques was utilized for this exam.Automated exposure control, adjustment of the mA and/or kV according to patient size, and use of iterative reconstruction. CTDI: 3.66mGy; DLP: 145.50mGy-cm. FINDINGS: Right-sided kelly cath is seen in situ. Decreased volume of left lung with mediastinal shift to the left side (stable). Both lungs show distorted architecture with apical fibrotic changes more on the left side. Interval regression of the right lower lobe extensive reticulation, thickened interlobular septa, honeycombing, fine subpleural cyst formation leaving behind an area of ground glass attenuation & atelectatic bands. A 7 mm calcified granuloma is noted in the left lower lobe. (stable). No evidence of pulmonary consolidation or masses. Enlarged precarinal lymph nodes, averaging 1.4 cm.(stable). Moderate left pleural effusion is noted . Clear right costophrenic recess. Average cardiac size with mild pericardial thickening /effusion. Atheromatous calcification of the aorta . Scanned upper abdominal cuts : Calcific foci seen at the splenic parenchyma (? granulomatous). Cholecystectomy metallic beau. IMPRESSION: 1. Interval regression of the right lower lobe extensive reticulation, thickened interlobular septa, honeycombing, fine subpleural cyst formation leaving behind an area of ground glass attenuation & atelectatic bands. 2. No pulmonary consolidation or masses. 3. A 7 mm calcified granuloma is noted in the left lower lobe. (stable). 4. Middle mediastinal lymphadenopathy (stable) . 5. Moderate left pleural effusion is noted. (stable ) . 6. Average cardiac size with mild pericardial thickening /effusion. (stable) Electronically Signed by: Kishore Al MD. (01/01/2024 16:39:53 EDT)
[2024-01-01] MEDS ORDERED: PROCHLORPERAZINE MALEATE 10 MG PO PRN (22:59)
[2024-01-01] MEDS ORDERED: Lomotil PO PRN (22:59)
[2024-01-01] MEDS ORDERED: PHENERGAN 25 MG PO PRN (22:59)
[2024-01-01] MEDS ORDERED: TYLENOL 325 MG PO PRN (23:01)
--- NOTE | 2024-01-01 23:04 | PCM.HP ---
History of Present Illness - Chief Complaint Chief Complaint: confusion Date: 01/01/24 History of Present Illness: 63 y/o F with h/o lung cancer in remission, DM2, CAD, HTN, COPD, here with confusion and syncope. Patient unaware completely of why she was brought in to [facility], but notes that her found her on the floor of her bathroom last night unconscious. She does not remember what she was doing beforehand. Reportedly throughout the day today, she has been lethargic, hard to around, and difficult to move. Patient denies feeling like that today, and she is awake and alert during our conversation. She denies feeling poorly in the day or so previously, except that she has been having frequent diarrhea, for which she was recently prescribed steroids and lomotil by her oncologist. She denies fevers, dizziness, lightheadedness, headache, palpitations, chest pain, or dyspnea. She does have dysuria. She states she has a good appetite with good PO intake since stopping her chemotherapy. She had a fall six weeks ago which required hip surgery, and she is currently on opiates for pain control, and takes regular Xanax. She normally walks with a walker or a wheelchair, which she thinks she was using last night. She also has some right leg pain, but notes that has been present for some time. In the ED she was given Zosyn. - Review of Systems All Other Systems: Reviewed and Negative Medications & Allergies Home Medications: Home Medication List Promethazine HCl 25 mg [Phenergan 25 mg] 25 mg PO QID PRN 07/17/21 [History Confirmed 01/01/24] Prochlorperazine Maleate [Compazine] 10 mg PO BIDPRN PRN 08/30/22 [History Confirmed 01/01/24] Insulin Aspart [NovoLOG Insulin] 0 unit SQ AC PRN 10/08/22 [History Confirmed 01/01/24] Insulin Glargine,Hum.rec.anlog [Ward Solostar] 11 unit SQ QHS 11/28/22 [History Confirmed 01/01/24] Metoprolol Tartrate 50 mg [Lopressor 50 MG] 50 mg PO DAILY 11/28/22 [History Confirmed 01/01/24] Gabapentin [Neurontin ] 300 mg PO HS 01/01/23 [History Confirmed 01/01/24] Mirtazapine 30 mg [Remeron 30 mg] 30 mg PO HS 01/01/23 [History Confirmed 01/01/24] ALPRAZolam 1 MG [Xanax 1 mg] 1 mg PO BID 01/01/24 [History Confirmed 01/01/24] Diphenoxylate HCl/Atropine [Diphenoxylate-Atrop 2.5-0.025] 1 tab PO QIDPRN PRN 01/01/24 [History Confirmed 01/01/24] Ergocalciferol (Vitamin D2) [Vitamin D2] 1,250 mcg PO WEEKLY 01/01/24 [History Confirmed 01/01/24] Prednisone 10 mg [Deltasone 10 mg] 10 mg PO UD 01/01/24 [History Confirmed 01/01/24] Allergies/Adverse Reactions: Allergies Allergy/AdvReac Type Severity Reaction Status Date / Time orphenadrine citrate Allergy Intermediate Verified 01/01/24 21:46 [From Norflex] adhesive tape Allergy Verified 01/01/24 21:46 levofloxacin [From Levaquin] AdvReac Mild Nausea and Verified 01/01/24 21:46 Vomiting - Past Medical History Past Medical History: Yes Neurological History: No Pertinent History ENT History: Cataracts Cardiac History: Coronary Artery Disease, High Cholesterol, Hypertension Respiratory History: COPD, Lung Cancer (s/p chemotherapy, immunotherapy) Endocrine Medical History: Diabetes Type II Musculoskelatal History: Fractures GI Medical History: GERD History: Renal Disease Pyscho-Social History: Anxiety, Depression Reproductive Disorders: No Pertinent History Comment: Previous left leg fx many years ago,rt wrist fx with cast. left lower lobe lung cancer. chemo - Past Surgical History Past Surgical History: Yes Neuro Surgical History: No Pertinent History Cardiac History: Cardiac Catheterization, Cardiac Stent Respiratory Surgery: Lobectomy GI Surgical History: Cholecystectomy Genitourinary Surgical Hx: No Pertinent History Musculskeletal Surgical Hx: Other Female Surgical History: Tubal Ligation Other Surgical History: BUNONECTOMY. BACK SURGERY X2, right upper chest port placement. LL lung lobectomy Significant Family History: heart disease, diabetes, hypertension - Social History Smoking Status: Current every day smoker How long have you smoked: 50 years Exposure to second hand smoke: Yes Alcohol: None Drug Use: none - Social Determinants of Health Will the patient participate in the screening: Yes Do you worry about a steady place to live?: No Do you have any problems with any of the following?: No known problems In the past 12 months,have you had to go without utilities?: No Have you or anyone in your house had to go without enough: No Transportation Issues: No Has anyone in your support network made you feel unsafe?: No Does the patient want assistance with any of the above?: No - Physical Exam Vital Signs: Vital Signs - 24 hr Temp Pulse Resp BP BP Pulse Ox 01/01/24 22:55 96.9 F 93 H 16 127/68 95 01/01/24 22:15 98 01/01/24 20:27 97.0 F 75 16 164/75 95 01/01/24 17:00 130/70 97 01/01/24 16:30 134/73 01/01/24 16:00 144/80 94 L 01/01/24 15:30 158/85 96 01/01/24 15:00 141/73 01/01/24 14:30 141/74 01/01/24 14:00 126/69 98 01/01/24 13:30 124/68 96 01/01/24 13:00 151/81 01/01/24 12:30 144/82 01/01/24 12:00 150/83 98 01/01/24 11:40 97.7 F 81 129/81 96 01/01/24 11:39 129/81 98 General Appearance: no apparent distress Neurologic Exam: alert, oriented x 3, cooperative, sensation nml, No motor deficits Respiratory Exam: normal breath sounds, No respiratory distress Cardiovascular Exam: regular rate/rhythm, normal heart sounds, No edema Gastrointestinal/Abdomen Exam: No tenderness, No distention Results - Labs Lab/Micro Results: Lab Results-Last 24 Hours 01/01/24 01/01/24 01/01/24 Range/Units 12:20 12:20 12:20 WBC 9.5 (3.98-10.04) x10^3/uL RBC 3.82 L (3.93-5.22) x10^6/uL Hgb 11.3 (11.2-15.7) g/dL Hct 35.1 (34.1-44.9) % MCV 91.9 (79.4-94.8) fL MCH 29.6 (25.6-32.2) pg MCHC 32.2 (32.2-35.5) g/dL RDW 14.6 H (11.7-14.4) % Plt Count 537 H (182-369) x10^3/uL MPV 8.6 L (9.4-12.3) fL Gran % 80.1 H (34.0-71.1) % Immature Gran % (Auto) 0.2 (0.001-0.429) % Nucleat RBC Rel Count 0.0 (0.00-0.2) % Eos # (Auto) 0.02 L (0.04-0.36) x10^3/uL Immature Gran # (Auto) 0.02 (0.001-0.031) x10^3u/L Absolute Lymphs (auto) 1.32 (1.18-3.74) x10^3/uL Absolute Monos (auto) 0.50 (0.24-0.86) x10^3/uL Absolute Nucleated RBC 0.00 (0.00-0.012) x10^3u/L Lymphocytes % 13.9 L (19.3-51.7) % Monocytes % 5.2 (4.7-12.5) % Eosinophils % 0.2 L (0.7-5.8) % Basophils % 0.4 (0.1-1.2) % Absolute Granulocytes 7.63 H (1.56-6.13) x10^3/uL Basophils # 0.04 (0.01-0.08) x10^3/uL Sodium 137 (135-145) mmol/L Potassium 3.4 L (3.5-5.1) mmol/L Chloride 110 H (98-107) mmol/L Carbon Dioxide 25 (22-30) mmol/L Anion Gap 6.0 (5-15) MEQ/L BUN 25 H (7-17) mg/dL Creatinine 0.71 (0.52-1.04) mg/dL Estimated GFR 96.1 ML/MIN Glucose 182 H (74-106) mg/dL POC Glucometer (74 to 106) mg/dL Lactic Acid (0.4-2.0) Calcium 9.3 (8.4-10.2) mg/dL Magnesium 1.5 L (1.6-2.3) mg/dL Total Bilirubin 0.10 L (0.2-1.3) mg/dL AST 17 (14-36) U/L ALT 8 (0-35) U/L Alkaline Phosphatase 100 (38-126) U/L Creatine Kinase (30-135) U/L Troponin I < 0.012 (0.000-0.033) ng/mL NT-Pro-B Natriuret Pep 308 (<300) pg/mL Serum Total Protein 5.7 L (6.3-8.2) g/dL Albumin 2.6 L (3.5-5.0) g/dL Lipase 11 L (23-300) U/L Procalcitonin 0.081 H (0.030-0.080) ng/mL Urine Color (Yellow) Urine Appearance (Clear) Urine pH (4.6-8.0) Ur Specific Leonard (1.005-1.030) Urine Protein (Negative) Urine Glucose (UA) (Negative) mg/dL Urine Ketones (Negative) Urine Blood (Negative) Urine Nitrite (Negative) Urine Bilirubin (Negative) Urine Urobilinogen (0.2) mg/dL Ur Leukocyte Esterase (Negative) U Hyaline Cast (Auto) (0-2) /LPF Urine Microscopic RBC (0-5) /HPF Urine Microscopic WBC (0-5) /HPF Ur Epithelial Cells (None Seen) /HPF Urine Bacteria (None Seen) /HPF Urine Culture Reflexed (NO) Urine Opiates Level (NEGATIVE) Ur Methadone (NEGATIVE) Urine Barbiturates (NEGATIVE) Ur Phencyclidine (PCP) (NEGATIVE) Urine Amphetamine (NEGATIVE) U Benzodiazepine Level (NEGATIVE) Urine Cocaine (NEGATIVE) Urine Marijuana (THC) (NEGATIVE) 01/01/24 01/01/24 01/01/24 Range/Units 12:20 12:25 15:46 WBC (3.98-10.04) x10^3/uL RBC (3.93-5.22) x10^6/uL Hgb (11.2-15.7) g/dL Hct (34.1-44.9) % MCV (79.4-94.8) fL MCH (25.6-32.2) pg MCHC (32.2-35.5) g/dL RDW (11.7-14.4) % Plt Count (182-369) x10^3/uL MPV (9.4-12.3) fL Gran % (34.0-71.1) % Immature Gran % (Auto) (0.001-0.429) % Nucleat RBC Rel Count (0.00-0.2) % Eos # (Auto) (0.04-0.36) x10^3/uL Immature Gran # (Auto) (0.001-0.031) x10^3u/L Absolute Lymphs (auto) (1.18-3.74) x10^3/uL Absolute Monos (auto) (0.24-0.86) x10^3/uL Absolute Nucleated RBC (0.00-0.012) x10^3u/L Lymphocytes % (19.3-51.7) % Monocytes % (4.7-12.5) % Eosinophils % (0.7-5.8) % Basophils % (0.1-1.2) % Absolute Granulocytes (1.56-6.13) x10^3/uL Basophils # (0.01-0.08) x10^3/uL Sodium (135-145) mmol/L Potassium (3.5-5.1) mmol/L Chloride (98-107) mmol/L Carbon Dioxide (22-30) mmol/L Anion Gap (5-15) MEQ/L BUN (7-17) mg/dL Creatinine (0.52-1.04) mg/dL Estimated GFR ML/MIN Glucose (74-106) mg/dL POC Glucometer (74 to 106) mg/dL Lactic Acid 0.7 (0.4-2.0) Calcium (8.4-10.2) mg/dL Magnesium (1.6-2.3) mg/dL Total Bilirubin (0.2-1.3) mg/dL AST (14-36) U/L ALT (0-35) U/L Alkaline Phosphatase (38-126) U/L Creatine Kinase 24 L (30-135) U/L Troponin I < 0.012 (0.000-0.033) ng/mL NT-Pro-B Natriuret Pep (<300) pg/mL Serum Total Protein (6.3-8.2) g/dL Albumin (3.5-5.0) g/dL Lipase (23-300) U/L Procalcitonin (0.030-0.080) ng/mL Urine Color (Yellow) Urine Appearance (Clear) Urine pH (4.6-8.0) Ur Specific Leonard (1.005-1.030) Urine Protein (Negative) Urine Glucose (UA) (Negative) mg/dL Urine Ketones (Negative) Urine Blood (Negative) Urine Nitrite (Negative) Urine Bilirubin (Negative) Urine Urobilinogen (0.2) mg/dL Ur Leukocyte Esterase (Negative) U Hyaline Cast (Auto) (0-2) /LPF Urine Microscopic RBC (0-5) /HPF Urine Microscopic WBC (0-5) /HPF Ur Epithelial Cells (None Seen) /HPF Urine Bacteria (None Seen) /HPF Urine Culture Reflexed (NO) Urine Opiates Level (NEGATIVE) Ur Methadone (NEGATIVE) Urine Barbiturates (NEGATIVE) Ur Phencyclidine (PCP) (NEGATIVE) Urine Amphetamine (NEGATIVE) U Benzodiazepine Level (NEGATIVE) Urine Cocaine (NEGATIVE) Urine Marijuana (THC) (NEGATIVE) 01/01/24 01/01/24 01/01/24 Range/Units 15:51 15:55 20:42 WBC (3.98-10.04) x10^3/uL RBC (3.93-5.22) x10^6/uL Hgb (11.2-15.7) g/dL Hct (34.1-44.9) % MCV (79.4-94.8) fL MCH (25.6-32.2) pg MCHC (32.2-35.5) g/dL RDW (11.7-14.4) % Plt Count (182-369) x10^3/uL MPV (9.4-12.3) fL Gran % (34.0-71.1) % Immature Gran % (Auto) (0.001-0.429) % Nucleat RBC Rel Count (0.00-0.2) % Eos # (Auto) (0.04-0.36) x10^3/uL Immature Gran # (Auto) (0.001-0.031) x10^3u/L Absolute Lymphs (auto) (1.18-3.74) x10^3/uL Absolute Monos (auto) (0.24-0.86) x10^3/uL Absolute Nucleated RBC (0.00-0.012) x10^3u/L Lymphocytes % (19.3-51.7) % Monocytes % (4.7-12.5) % Eosinophils % (0.7-5.8) % Basophils % (0.1-1.2) % Absolute Granulocytes (1.56-6.13) x10^3/uL Basophils # (0.01-0.08) x10^3/uL Sodium (135-145) mmol/L Potassium (3.5-5.1) mmol/L Chloride (98-107) mmol/L Carbon Dioxide (22-30) mmol/L Anion Gap (5-15) MEQ/L BUN (7-17) mg/dL Creatinine (0.52-1.04) mg/dL Estimated GFR ML/MIN Glucose (74-106) mg/dL POC Glucometer (74 to 106) mg/dL Lactic Acid (0.4-2.0) Calcium (8.4-10.2) mg/dL Magnesium (1.6-2.3) mg/dL Total Bilirubin (0.2-1.3) mg/dL AST (14-36) U/L ALT (0-35) U/L Alkaline Phosphatase (38-126) U/L Creatine Kinase (30-135) U/L Troponin I < 0.012 (0.000-0.033) ng/mL NT-Pro-B Natriuret Pep (<300) pg/mL Serum Total Protein (6.3-8.2) g/dL Albumin (3.5-5.0) g/dL Lipase (23-300) U/L Procalcitonin (0.030-0.080) ng/mL Urine Color Yellow (Yellow) Urine Appearance Clear (Clear) Urine pH 6.0 (4.6-8.0) Ur Specific Leonard 1.020 (1.005-1.030) Urine Protein Trace A (Negative) Urine Glucose (UA) Negative (Negative) mg/dL Urine Ketones Negative (Negative) Urine Blood Negative (Negative) Urine Nitrite Negative (Negative) Urine Bilirubin Negative (Negative) Urine Urobilinogen 0.2 (0.2) mg/dL Ur Leukocyte Esterase Negative (Negative) U Hyaline Cast (Auto) NONE SEEN (0-2) /LPF Urine Microscopic RBC 0-2 (0-5) /HPF Urine Microscopic WBC 0-2 (0-5) /HPF Ur Epithelial Cells None Seen (None Seen) /HPF Urine Bacteria Many A (None Seen) /HPF Urine Culture Reflexed YES (NO) Urine Opiates Level POSITIVE A (NEGATIVE) Ur Methadone NEGATIVE (NEGATIVE) Urine Barbiturates NEGATIVE (NEGATIVE) Ur Phencyclidine (PCP) NEGATIVE (NEGATIVE) Urine Amphetamine NEGATIVE (NEGATIVE) U Benzodiazepine Level POSITIVE A (NEGATIVE) Urine Cocaine NEGATIVE (NEGATIVE) Urine Marijuana (THC) NEGATIVE (NEGATIVE) 01/01/24 Range/Units 21:58 WBC (3.98-10.04) x10^3/uL RBC (3.93-5.22) x10^6/uL Hgb (11.2-15.7) g/dL Hct (34.1-44.9) % MCV (79.4-94.8) fL MCH (25.6-32.2) pg MCHC (32.2-35.5) g/dL RDW (11.7-14.4) % Plt Count (182-369) x10^3/uL MPV (9.4-12.3) fL Gran % (34.0-71.1) % Immature Gran % (Auto) (0.001-0.429) % Nucleat RBC Rel Count (0.00-0.2) % Eos # (Auto) (0.04-0.36) x10^3/uL Immature Gran # (Auto) (0.001-0.031) x10^3u/L Absolute Lymphs (auto) (1.18-3.74) x10^3/uL Absolute Monos (auto) (0.24-0.86) x10^3/uL Absolute Nucleated RBC (0.00-0.012) x10^3u/L Lymphocytes % (19.3-51.7) % Monocytes % (4.7-12.5) % Eosinophils % (0.7-5.8) % Basophils % (0.1-1.2) % Absolute Granulocytes (1.56-6.13) x10^3/uL Basophils # (0.01-0.08) x10^3/uL Sodium (135-145) mmol/L Potassium (3.5-5.1) mmol/L Chloride (98-107) mmol/L Carbon Dioxide (22-30) mmol/L Anion Gap (5-15) MEQ/L BUN (7-17) mg/dL Creatinine (0.52-1.04) mg/dL Estimated GFR ML/MIN Glucose (74-106) mg/dL POC Glucometer 144 H (74 to 106) mg/dL Lactic Acid (0.4-2.0) Calcium (8.4-10.2) mg/dL Magnesium (1.6-2.3) mg/dL Total Bilirubin (0.2-1.3) mg/dL AST (14-36) U/L ALT (0-35) U/L Alkaline Phosphatase (38-126) U/L Creatine Kinase (30-135) U/L Troponin I (0.000-0.033) ng/mL NT-Pro-B Natriuret Pep (<300) pg/mL Serum Total Protein (6.3-8.2) g/dL Albumin (3.5-5.0) g/dL Lipase (23-300) U/L Procalcitonin (0.030-0.080) ng/mL Urine Color (Yellow) Urine Appearance (Clear) Urine pH (4.6-8.0) Ur Specific Leonard (1.005-1.030) Urine Protein (Negative) Urine Glucose (UA) (Negative) mg/dL Urine Ketones (Negative) Urine Blood (Negative) Urine Nitrite (Negative) Urine Bilirubin (Negative) Urine Urobilinogen (0.2) mg/dL Ur Leukocyte Esterase (Negative) U Hyaline Cast (Auto) (0-2) /LPF Urine Microscopic RBC (0-5) /HPF Urine Microscopic WBC (0-5) /HPF Ur Epithelial Cells (None Seen) /HPF Urine Bacteria (None Seen) /HPF Urine Culture Reflexed (NO) Urine Opiates Level (NEGATIVE) Ur Methadone (NEGATIVE) Urine Barbiturates (NEGATIVE) Ur Phencyclidine (PCP) (NEGATIVE) Urine Amphetamine (NEGATIVE) U Benzodiazepine Level (NEGATIVE) Urine Cocaine (NEGATIVE) Urine Marijuana (THC) (NEGATIVE) Accuchecks Date 01/01/24 - Radiology Impressions Radiology Exams & Impressions: Radiology Procedures Category Date Time Status CERVICAL SPINE WO CONTRAST [CT] Stat Exams 01/01/24 11:47 Completed CHEST WITHOUT CONTRAST [CT] Stat Exams 01/01/24 11:47 Completed HEAD WITHOUT CONTRAST [CT] Stat Exams 01/01/24 11:[address] Chest - Regerssion of prior extensive RLL reticulation, thickened interlobular septa, honeycombing, and fine cyst formation, with residual area of ground glass attenuation and atelectatic bands. No consolidaiton or masses. Moderate stable L pleural effusion. (images reviewed) CT Head - subtle periventricular hypodensities at frontal horns may represent non-acute ischemic encephalopathy. - Other Procedures and Tests Respiratory Therapy 01/01/24 19:31 Oxygen Nasal Cannula 2 lpm Respiratory Therapy Consult ONCE 01/01/24 21:01 Smoking Cessation Education ONCE Assessment/Plan (1) Encephalopathy acute Current Visit: Yes Status: Acute Assessment & Plan: 63 y/o F with h/o lung cancer in remission, DM2, COPD, here with confusion, reported syncope. ## confusion - most likely delirium, either due to UTI (see below for discussion), or from medications as patient was on narcotics and benzodiazepines at home. Possibly structural issues with subtle CT head findings and h/o lung cancer, but acute onset makes this less likely. Possibly just some presyncope from dehydration from her diarrhea, but would not explain patient's reported continued confusion throughout the day today. Mental status appears improved now, but need more collateral information. - treat possible UTI as below - get MRI Brain w/wo contrast per neurology recs - give NS at 50 ml/hr - hold further narcotics - hold Xanax for now - reassess patient's mental status, especially with present to give baseline and context ## Possible acute cystitis - patient describes dysuria, and has bacteriuria, but no pyuria to suggest inflammatory process. Procalcitonin level is low, but without real systemic signs would not be expected to be elevated for UTI. Reviewed prior records, and patient has a history of recurrent UTI; the last two with Klebsiella aerogenes that was naturally resistant to cephalosporins and penicillins. Patient has allergy to fluroquinolones. - d/c Zosyn - start Merrem - follow up urine culture ## Diarrhea - reportedly concerned for reaction related to her immunotherapy. Patient was recently started on steroids, which may explain some of the confusion. - hold prednisone for now - continue PRN Lomotil - giving fluids as above ## DM2 - Glc levels controlled here - continue home Lantus 11 units qHS - place on moderate dose sliding scale insulin ## hypomagnesemia - likely from diarrhea losses - give Mg 4 g IV x1 - repeat K, Mg levels in AM Code status: Full code Prophylaxis: Lovenox Diet: Diabetic Code(s): G93.40 - ENCEPHALOPATHY, UNSPECIFIED Telemedicine Encounter - Telemedicine Encounter Telemedicine Encounter: "The entirety of this encounter was performed via Telemedicine" This visit was performed using real-time audio and video connection between my location and thepatients locationwith the assistance of a surrogateat the patients location. Written or verbal consent was obtained from the patient/guardian to perform this [facility]. Any patient questions regarding the telemedicine interaction were answered.
[2024-01-01] MEDS: REMERON 30 MG PO SCH (23:24)
[2024-01-01] MEDS: Sodium Chloride 0.9% 1000 ML 1,000 ML IV SCH (23:24)
[2024-01-01] MEDS: Lomotil PO PRN (23:55)
[2024-01-02] MEDS: MAGNESIUM SULF 2 G/50 ML BAG 2 GM/50 ML PIGGYBACK IV SCH (01:27)
[2024-01-02] MEDS ORDERED: Merrem IV ONE (05:01)
[2024-01-02] MEDS ORDERED: Sodium Chloride 100ML MINI-BAG PLUS 100 ML IV ONE (05:02)
--- NOTE | 2024-01-02 05:34 | PCM.NOTE ---
Date and Time: 01/02/24 0525 Subjective Assessment: 63 y/o F with h/o lung cancer in remission, DM2, COPD, admitted 01/02/24 with confusion and near syncopal episode. Patient was found on the bathroom floor by her . Patient reports frequent diarrhea recently with steroids and lomotil prescribed by oncologist. She has also had some dysuria. She had a fall six weeks ago which required hip surgery, and she is currently on opiates for pain control, and takes regular Xanax. She normally walks with a walker or a wheelchair, which she thinks she was using last night. She also has some right leg pain, but notes that has been present for some time. CT head with subtle periventricular hypodensities at frontal horns, may represent non-acute ischemic encephalopathy CT chest with Interval regression of the right lower lobe extensive reticulation, thickened interlobular septa, honeycombing, fine subpleural cyst formation leaving behind an area of ground glass attenuation & atelectatic bands. No pulmonary consolidation or masses. A 7 mm calcified granuloma is noted in the left lower lobe. (stable). Middle mediastinal lymphadenopathy (stable) . Moderate left pleural effusion is noted. (stable ) . Average cardiac size with mild pericardial thickening /effusion. (stable). CT cervical spine with no acute osseous abnormality is seen. Lab findings with hypokalemia and hypomagnesemia. Given Zosyn in ED. 01/02/24: Met with patient bedside. States she is feeling better today. Labs and vitals stable with the exception of her blood glucose level this morning at 424. Plan is for MRI/carotid/echo today. - Review of Systems Constitutional: No Symptoms Eyes: No Symptoms Ears, Nose, & Throat: No Symptoms Respiratory: No Symptoms Cardiac: No Symptoms Abdominal/Gastrointestinal: No Symptoms Genitourinary Symptoms: No Symptoms Musculoskeletal: No Symptoms Skin: No Symptoms Neurological: No Symptoms Psychological: No Symptoms Endocrine: No Symptoms Hematologic/Lymphatic: No Symptoms Immunological/Allergic: No Symptoms Objective Exam General Appearance: no apparent distress Neurologic Exam: alert, oriented x 3, cooperative Skin Exam: normal color Wound Assessment: Skin/Wound Assessment Wound/Incision Assessment Start: 01/01/24 21:01 Text: Status: Active Freq: Q6H Protocol: Document 01/02/24 02:00 GERI (Rec: 01/02/24 02:26 GERI [id number]) Wound/Incision Assessment Left Hand Wound Assessment Shift Assessment Wound Type Abrasion Wound Stage Non Pressure Wound Drainage Amount None Comment SMALL ABRASION NOTED TO HAND, LARGE BRUISE NOTED, COMPRESSION SLEEVE ON FROM HOME Heel Wound Assessment Shift Assessment Wound Type RED, BLANCHABLE Wound Stage Non Pressure Wound Comment HEELS FLOATED ON PILLOWS Left Lower Other Wound Assessment Shift Assessment Wound Type Skin Tear Wound Stage Non Pressure Wound Dressing Status Dry & Intact Drainage Amount None Primary Dressing Non-Adherent Gauze Pads Lower Other Wound Assessment Shift Assessment Wound Type RED AND WARM TO THE TOUCH Wound Stage Non Pressure Wound Drainage Amount None Comment BILATERAL LOWER LEGS ARE RED AND WARM TO THE TOUCH Eye Exam: PERRL Ears, Nose, Throat Exam: normal ENT inspection Neck Exam: normal inspection Respiratory Exam: normal breath sounds, lungs clear Cardiovascular Exam: regular rate/rhythm, normal heart sounds Gastrointestinal/Abdomen Exam: soft, normal bowel sounds Extremity Exam: normal inspection Back Exam: normal inspection Pelvic Exam: deferred Objective Data Vital Signs: Vital Signs - 24 hr Temp Pulse Resp BP BP Pulse Ox 01/02/24 04:00 98.2 F 81 16 129/64 96 01/01/24 22:55 96.9 F 93 H 16 127/68 95 01/01/24 22:15 98 01/01/24 20:27 97.0 F 75 16 164/75 95 01/01/24 17:00 130/70 97 01/01/24 16:30 134/73 01/01/24 16:00 144/80 94 L 01/01/24 15:30 158/85 96 01/01/24 15:00 141/73 01/01/24 14:30 141/74 01/01/24 14:00 126/69 98 01/01/24 13:30 124/68 96 01/01/24 13:00 151/81 01/01/24 12:30 144/82 01/01/24 12:00 150/83 98 01/01/24 11:40 97.7 F 81 129/81 96 01/01/24 11:39 129/81 98 Pain Assessment - Last Documented Pain Intensity 6 Intake and Output: Intake & Output 12/30/23 12/31/23 01/01/24 01/02/24 11:59 11:59 11:59 11:59 Intake Total 120 Balance 120 Weight 47.627 kg 51 kg Lab Results: Lab Results-Last 24 Hours 01/01/24 01/01/24 01/01/24 Range/Units 12:20 12:20 12:20 WBC 9.5 (3.98-10.04) x10^3/uL RBC 3.82 L (3.93-5.22) x10^6/uL Hgb 11.3 (11.2-15.7) g/dL Hct 35.1 (34.1-44.9) % MCV 91.9 (79.4-94.8) fL MCH 29.6 (25.6-32.2) pg MCHC 32.2 (32.2-35.5) g/dL RDW 14.6 H (11.7-14.4) % Plt Count 537 H (182-369) x10^3/uL MPV 8.6 L (9.4-12.3) fL Gran % 80.1 H (34.0-71.1) % Immature Gran % (Auto) 0.2 (0.001-0.429) % Nucleat RBC Rel Count 0.0 (0.00-0.2) % Eos # (Auto) 0.02 L (0.04-0.36) x10^3/uL Immature Gran # (Auto) 0.02 (0.001-0.031) x10^3u/L Absolute Lymphs (auto) 1.32 (1.18-3.74) x10^3/uL Absolute Monos (auto) 0.50 (0.24-0.86) x10^3/uL Absolute Nucleated RBC 0.00 (0.00-0.012) x10^3u/L Lymphocytes % 13.9 L (19.3-51.7) % Monocytes % 5.2 (4.7-12.5) % Eosinophils % 0.2 L (0.7-5.8) % Basophils % 0.4 (0.1-1.2) % Absolute Granulocytes 7.63 H (1.56-6.13) x10^3/uL Basophils # 0.04 (0.01-0.08) x10^3/uL Sodium 137 (135-145) mmol/L Potassium 3.4 L (3.5-5.1) mmol/L Chloride 110 H (98-107) mmol/L Carbon Dioxide 25 (22-30) mmol/L Anion Gap 6.0 (5-15) MEQ/L BUN 25 H (7-17) mg/dL Creatinine 0.71 (0.52-1.04) mg/dL Estimated GFR 96.1 ML/MIN Glucose 182 H (74-106) mg/dL POC Glucometer (74 to 106) mg/dL Lactic Acid (0.4-2.0) Calcium 9.3 (8.4-10.2) mg/dL Magnesium 1.5 L (1.6-2.3) mg/dL Total Bilirubin 0.10 L (0.2-1.3) mg/dL AST 17 (14-36) U/L ALT 8 (0-35) U/L Alkaline Phosphatase 100 (38-126) U/L Creatine Kinase (30-135) U/L Troponin I < 0.012 (0.000-0.033) ng/mL NT-Pro-B Natriuret Pep 308 (<300) pg/mL Serum Total Protein 5.7 L (6.3-8.2) g/dL Albumin 2.6 L (3.5-5.0) g/dL Lipase 11 L (23-300) U/L Procalcitonin 0.081 H (0.030-0.080) ng/mL Urine Color (Yellow) Urine Appearance (Clear) Urine pH (4.6-8.0) Ur Specific Crete (1.005-1.030) Urine Protein (Negative) Urine Glucose (UA) (Negative) mg/dL Urine Ketones (Negative) Urine Blood (Negative) Urine Nitrite (Negative) Urine Bilirubin (Negative) Urine Urobilinogen (0.2) mg/dL Ur Leukocyte Esterase (Negative) U Hyaline Cast (Auto) (0-2) /LPF Urine Microscopic RBC (0-5) /HPF Urine Microscopic WBC (0-5) /HPF Ur Epithelial Cells (None Seen) /HPF Urine Bacteria (None Seen) /HPF Urine Culture Reflexed (NO) Urine Opiates Level (NEGATIVE) Ur Methadone (NEGATIVE) Urine Barbiturates (NEGATIVE) Ur Phencyclidine (PCP) (NEGATIVE) Urine Amphetamine (NEGATIVE) U Benzodiazepine Level (NEGATIVE) Urine Cocaine (NEGATIVE) Urine Marijuana (THC) (NEGATIVE) 01/01/24 01/01/24 01/01/24 Range/Units 12:20 12:25 15:46 WBC (3.98-10.04) x10^3/uL RBC (3.93-5.22) x10^6/uL Hgb (11.2-15.7) g/dL Hct (34.1-44.9) % MCV (79.4-94.8) fL MCH (25.6-32.2) pg MCHC (32.2-35.5) g/dL RDW (11.7-14.4) % Plt Count (182-369) x10^3/uL MPV (9.4-12.3) fL Gran % (34.0-71.1) % Immature Gran % (Auto) (0.001-0.429) % Nucleat RBC Rel Count (0.00-0.2) % Eos # (Auto) (0.04-0.36) x10^3/uL Immature Gran # (Auto) (0.001-0.031) x10^3u/L Absolute Lymphs (auto) (1.18-3.74) x10^3/uL Absolute Monos (auto) (0.24-0.86) x10^3/uL Absolute Nucleated RBC (0.00-0.012) x10^3u/L Lymphocytes % (19.3-51.7) % Monocytes % (4.7-12.5) % Eosinophils % (0.7-5.8) % Basophils % (0.1-1.2) % Absolute Granulocytes (1.56-6.13) x10^3/uL Basophils # (0.01-0.08) x10^3/uL Sodium (135-145) mmol/L Potassium (3.5-5.1) mmol/L Chloride (98-107) mmol/L Carbon Dioxide (22-30) mmol/L Anion Gap (5-15) MEQ/L BUN (7-17) mg/dL Creatinine (0.52-1.04) mg/dL Estimated GFR ML/MIN Glucose (74-106) mg/dL POC Glucometer (74 to 106) mg/dL Lactic Acid 0.7 (0.4-2.0) Calcium (8.4-10.2) mg/dL Magnesium (1.6-2.3) mg/dL Total Bilirubin (0.2-1.3) mg/dL AST (14-36) U/L ALT (0-35) U/L Alkaline Phosphatase (38-126) U/L Creatine Kinase 24 L (30-135) U/L Troponin I < 0.012 (0.000-0.033) ng/mL NT-Pro-B Natriuret Pep (<300) pg/mL Serum Total Protein (6.3-8.2) g/dL Albumin (3.5-5.0) g/dL Lipase (23-300) U/L Procalcitonin (0.030-0.080) ng/mL Urine Color (Yellow) Urine Appearance (Clear) Urine pH (4.6-8.0) Ur Specific Crete (1.005-1.030) Urine Protein (Negative) Urine Glucose (UA) (Negative) mg/dL Urine Ketones (Negative) Urine Blood (Negative) Urine Nitrite (Negative) Urine Bilirubin (Negative) Urine Urobilinogen (0.2) mg/dL Ur Leukocyte Esterase (Negative) U Hyaline Cast (Auto) (0-2) /LPF Urine Microscopic RBC (0-5) /HPF Urine Microscopic WBC (0-5) /HPF Ur Epithelial Cells (None Seen) /HPF Urine Bacteria (None Seen) /HPF Urine Culture Reflexed (NO) Urine Opiates Level (NEGATIVE) Ur Methadone (NEGATIVE) Urine Barbiturates (NEGATIVE) Ur Phencyclidine (PCP) (NEGATIVE) Urine Amphetamine (NEGATIVE) U Benzodiazepine Level (NEGATIVE) Urine Cocaine (NEGATIVE) Urine Marijuana (THC) (NEGATIVE) 01/01/24 01/01/24 01/01/24 Range/Units 15:51 15:55 20:42 WBC (3.98-10.04) x10^3/uL RBC (3.93-5.22) x10^6/uL Hgb (11.2-15.7) g/dL Hct (34.1-44.9) % MCV (79.4-94.8) fL MCH (25.6-32.2) pg MCHC (32.2-35.5) g/dL RDW (11.7-14.4) % Plt Count (182-369) x10^3/uL MPV (9.4-12.3) fL Gran % (34.0-71.1) % Immature Gran % (Auto) (0.001-0.429) % Nucleat RBC Rel Count (0.00-0.2) % Eos # (Auto) (0.04-0.36) x10^3/uL Immature Gran # (Auto) (0.001-0.031) x10^3u/L Absolute Lymphs (auto) (1.18-3.74) x10^3/uL Absolute Monos (auto) (0.24-0.86) x10^3/uL Absolute Nucleated RBC (0.00-0.012) x10^3u/L Lymphocytes % (19.3-51.7) % Monocytes % (4.7-12.5) % Eosinophils % (0.7-5.8) % Basophils % (0.1-1.2) % Absolute Granulocytes (1.56-6.13) x10^3/uL Basophils # (0.01-0.08) x10^3/uL Sodium (135-145) mmol/L Potassium (3.5-5.1) mmol/L Chloride (98-107) mmol/L Carbon Dioxide (22-30) mmol/L Anion Gap (5-15) MEQ/L BUN (7-17) mg/dL Creatinine (0.52-1.04) mg/dL Estimated GFR ML/MIN Glucose (74-106) mg/dL POC Glucometer (74 to 106) mg/dL Lactic Acid (0.4-2.0) Calcium (8.4-10.2) mg/dL Magnesium (1.6-2.3) mg/dL Total Bilirubin (0.2-1.3) mg/dL AST (14-36) U/L ALT (0-35) U/L Alkaline Phosphatase (38-126) U/L Creatine Kinase (30-135) U/L Troponin I < 0.012 (0.000-0.033) ng/mL NT-Pro-B Natriuret Pep (<300) pg/mL Serum Total Protein (6.3-8.2) g/dL Albumin (3.5-5.0) g/dL Lipase (23-300) U/L Procalcitonin (0.030-0.080) ng/mL Urine Color Yellow (Yellow) Urine Appearance Clear (Clear) Urine pH 6.0 (4.6-8.0) Ur Specific Crete 1.020 (1.005-1.030) Urine Protein Trace A (Negative) Urine Glucose (UA) Negative (Negative) mg/dL Urine Ketones Negative (Negative) Urine Blood Negative (Negative) Urine Nitrite Negative (Negative) Urine Bilirubin Negative (Negative) Urine Urobilinogen 0.2 (0.2) mg/dL Ur Leukocyte Esterase Negative (Negative) U Hyaline Cast (Auto) NONE SEEN (0-2) /LPF Urine Microscopic RBC 0-2 (0-5) /HPF Urine Microscopic WBC 0-2 (0-5) /HPF Ur Epithelial Cells None Seen (None Seen) /HPF Urine Bacteria Many A (None Seen) /HPF Urine Culture Reflexed YES (NO) Urine Opiates Level POSITIVE A (NEGATIVE) Ur Methadone NEGATIVE (NEGATIVE) Urine Barbiturates NEGATIVE (NEGATIVE) Ur Phencyclidine (PCP) NEGATIVE (NEGATIVE) Urine Amphetamine NEGATIVE (NEGATIVE) U Benzodiazepine Level POSITIVE A (NEGATIVE) Urine Cocaine NEGATIVE (NEGATIVE) Urine Marijuana (THC) NEGATIVE (NEGATIVE) 01/01/24 Range/Units 21:58 WBC (3.98-10.04) x10^3/uL RBC (3.93-5.22) x10^6/uL Hgb (11.2-15.7) g/dL Hct (34.1-44.9) % MCV (79.4-94.8) fL MCH (25.6-32.2) pg MCHC (32.2-35.5) g/dL RDW (11.7-14.4) % Plt Count (182-369) x10^3/uL MPV (9.4-12.3) fL Gran % (34.0-71.1) % Immature Gran % (Auto) (0.001-0.429) % Nucleat RBC Rel Count (0.00-0.2) % Eos # (Auto) (0.04-0.36) x10^3/uL Immature Gran # (Auto) (0.001-0.031) x10^3u/L Absolute Lymphs (auto) (1.18-3.74) x10^3/uL Absolute Monos (auto) (0.24-0.86) x10^3/uL Absolute Nucleated RBC (0.00-0.012) x10^3u/L Lymphocytes % (19.3-51.7) % Monocytes % (4.7-12.5) % Eosinophils % (0.7-5.8) % Basophils % (0.1-1.2) % Absolute Granulocytes (1.56-6.13) x10^3/uL Basophils # (0.01-0.08) x10^3/uL Sodium (135-145) mmol/L Potassium (3.5-5.1) mmol/L Chloride (98-107) mmol/L Carbon Dioxide (22-30) mmol/L Anion Gap (5-15) MEQ/L BUN (7-17) mg/dL Creatinine (0.52-1.04) mg/dL Estimated GFR ML/MIN Glucose (74-106) mg/dL POC Glucometer 144 H (74 to 106) mg/dL Lactic Acid (0.4-2.0) Calcium (8.4-10.2) mg/dL Magnesium (1.6-2.3) mg/dL Total Bilirubin (0.2-1.3) mg/dL AST (14-36) U/L ALT (0-35) U/L Alkaline Phosphatase (38-126) U/L Creatine Kinase (30-135) U/L Troponin I (0.000-0.033) ng/mL NT-Pro-B Natriuret Pep (<300) pg/mL Serum Total Protein (6.3-8.2) g/dL Albumin (3.5-5.0) g/dL Lipase (23-300) U/L Procalcitonin (0.030-0.080) ng/mL Urine Color (Yellow) Urine Appearance (Clear) Urine pH (4.6-8.0) Ur Specific Crete (1.005-1.030) Urine Protein (Negative) Urine Glucose (UA) (Negative) mg/dL Urine Ketones (Negative) Urine Blood (Negative) Urine Nitrite (Negative) Urine Bilirubin (Negative) Urine Urobilinogen (0.2) mg/dL Ur Leukocyte Esterase (Negative) U Hyaline Cast (Auto) (0-2) /LPF Urine Microscopic RBC (0-5) /HPF Urine Microscopic WBC (0-5) /HPF Ur Epithelial Cells (None Seen) /HPF Urine Bacteria (None Seen) /HPF Urine Culture Reflexed (NO) Urine Opiates Level (NEGATIVE) Ur Methadone (NEGATIVE) Urine Barbiturates (NEGATIVE) Ur Phencyclidine (PCP) (NEGATIVE) Urine Amphetamine (NEGATIVE) U Benzodiazepine Level (NEGATIVE) Urine Cocaine (NEGATIVE) Urine Marijuana (THC) (NEGATIVE) Radiology Exams: Radiology Procedures Category Date Time Status CERVICAL SPINE WO CONTRAST [CT] Stat Exams 01/01/24 11:47 Completed CHEST WITHOUT CONTRAST [CT] Stat Exams 01/01/24 11:47 Completed HEAD WITHOUT CONTRAST [CT] Stat Exams 01/01/24 11:47 Completed MRI BRAIN W & W/O CONTRAST [MRI] Routine Exams 01/02/24 00:51 Ordered Assessment/Plan (1) Syncope Current Visit: Yes Status: Acute Assessment & Plan: -orthostatic vitals -tele -CT head subtle periventricular hypodensities at frontal horns may represent non-acute ischemic encephalopathy - neurology recommending MRI w/wo contrast -Echo -Carotid duplex -hold narcotic/xanax -PT/OT Code(s): R55 - SYNCOPE AND COLLAPSE (2) Encephalopathy acute Current Visit: Yes Status: Acute Assessment & Plan: -Neurology consulted with recs for MRI -pending -Could have multifactoral etiology - most likely delirium, either due to UTI/ medications as patient was on narcotics and benzodiazepines at home. Possibly structural issues with subtle CT head findings and h/o lung cancer or presyncope from dehydration from her diarrhea -IVF -Hold narcotics/xanax Code(s): G93.40 - ENCEPHALOPATHY, UNSPECIFIED (3) UTI (urinary tract infection) Current Visit: Yes Status: Acute Qualifiers: Assessment & Plan: -h/o recurrent UTI - most recent cultures with Klebsiella aerogenes - dc zosyn - Merrem initiated -Follow culture Code(s): N39.0 - URINARY TRACT INFECTION, SITE NOT SPECIFIED (4) Diarrhea Current Visit: Yes Status: Acute Assessment & Plan: -Continue lomotil - can alt with immodium if needed Code(s): R19.7 - DIARRHEA, UNSPECIFIED (5) Hypokalemia Current Visit: Yes Status: Acute Assessment & Plan: -Replenish per protocol Code(s): E87.6 - HYPOKALEMIA (6) Hypomagnesemia Current Visit: Yes Status: Acute Assessment & Plan: -MG 4g given Code(s): E83.42 - HYPOMAGNESEMIA (7) Type 2 diabetes mellitus Current Visit: Yes Status: Acute Assessment & Plan: -lantus 11 units QHS -mod SSI -ADA diet -BG level elevated this morning. Patient states she is very brittle- declines additional dosing of insulin to bring levels down. Code status: Full code Prophylaxis: Lovenox Diet: Diabetic
[2024-01-02] MEDS: Merrem 1 GM in Sodium Chloride 100ML MINI-BAG PLUS 100 ML IV SCH (05:35)
[2024-01-02 06:14] LABS: Hemoglobin 11.1 g/dL (11.2-15.7); Mean Cell Volume 92.6 fL (79.4-94.8); Mean Corpuscular Hemoglobin 29.4 pg (25.6-32.2); Mean Corpuscular Hgb Concent. 31.7 g/dL (32.2-35.5); Mean Platelet Volume 8.9 fL (9.4-12.3); Platelet Count 500 x10^3/uL (182-369); Red Blood Count 3.78 x10^6/uL (3.93-5.22); Red Cell Distribution Width 14.7 % (11.7-14.4); White Blood Count 9.1 x10^3/uL (3.98-10.04)
[2024-01-02 06:35] LABS: ANION GAP 6.3 MEQ/L (5-15); Calcium 8.7 mg/dL (8.4-10.2); Creatinine 1 0.86 mg/dL (0.52-1.04); EST GLOMERULAR FILTRATION RATE 76.3 ML/MIN; MAGNESIUM 2.8 mg/dL (1.6-2.3); Potassium 3.5 mmol/L (3.5-5.1)
[2024-01-02] MEDS ORDERED: Compazine 5 MG PO PRN (07:21)
[2024-01-02] MEDS: HUMALOG SQ PRN (08:55)
[2024-01-02 11:13] VITALS: RESP 18
[2024-01-02] MEDS: ENOXAPARIN SODIUM SQ SCH (11:35)
[2024-01-02] MEDS: Lopressor 50 MG PO SCH (11:36)
--- NOTE | 2024-01-02 14:30 | XRAY ---
Indication: Syncope. Two-dimensional sonogram and color Doppler imaging carotid arteries of the neck performed. Comparison: None Examination right carotid circulation demonstrates minimal eccentric calcified plaquing in the common carotid artery. Remaining carotid bulb, internal carotid, and external carotid arteries are widely patent. Distal internal carotid artery is tortuous. PSV CCA is 79 cm/s. PSV ICA is 58 cm/s. ICA/CCA ratio is 0.7. Normal antegrade vertebral artery flow. Examination left carotid circulation also demonstrates minimal eccentric calcified plaquing in the common carotid artery. Widely patent common carotid, internal carotid, and external carotid arteries. PSV CCA is 80 cm/s. PSV ICA is 54 cm/s. ICA/CC ratio is 0.7. Normal antegrade vertebral artery flow. Impression: Minimal arteriosclerotic plaquing in both common carotid arteries. Otherwise negative for critical stenosis/obstruction. Velocity measurements and ratios also negative for hemodynamically significant flow-limiting stenosis.
[2024-01-02 15:12] VITALS: BP 138/76; PULSE 92; TEMP 98; O2SAT 92
--- NOTE | 2024-01-02 16:26 | XRAY ---
Indication: Confusion. Hypodensity on CT head. Sagittal, coronal, and axial MRI brain performed using pre and post T1, T2, FLAIR, diffusion, and ADC sequences. 10 cc Dotarem contrast used. Comparison: None Age-appropriate global atrophy and minimal periventricular degenerative micro-ischemia bilaterally. No acute intracranial hemorrhage, abnormal extra-axial fluid collection, or mass effect. Diffusion images negative for restricted signal. Following gadolinium, there is no abnormal enhancing intra or extra-axial mass. Fourth ventricle is midline without hydrocephalus. 7/8 cranial nerve complex bilaterally symmetric. Normal flow void signal within the major interservice circulation. Normal appearing craniocervical junction and sella turcica. Paranasal sinuses are clear. Impression: Atrophy and degenerative micro-ischemia within normal limits for patient's age. No acute intracranial abnormalities or evidence for evolving large vessel territorial stroke. Negative contrast exam. Findings concordant with CT head exam one day earlier.
--- NOTE | 2024-01-02 16:42 | PCM.DS ---
Discharge Summary Date of Admission: 01/01/24 19:19 Date of Discharge: 01/02/24 Admitting Physician: BRIDGET HDZ MD Primary Care Provider: JUANA,LYUDMILA Allergies Allergies orphenadrine citrate [From Norflex] Allergy (Intermediate, Verified 01/01/24 21:46) severe vomiting adhesive tape Allergy (Verified 01/01/24 21:46) levofloxacin [From Levaquin] Adverse Reaction (Mild, Verified 01/01/24 21:46) Nausea and Vomiting Hospital Summary - Hospital Course Hospital Course: 63 y/o F with h/o lung cancer in remission, DM2, COPD, admitted 01/02/24 with confusion and near syncopal episode. Patient was found on the bathroom floor by her . Patient reports frequent diarrhea recently with steroids and lomotil prescribed by oncologist. She has also had some dysuria. She had a fall six weeks ago which required hip surgery, and she is currently on opiates for pain control, and takes regular Xanax. She normally walks with a walker or a wheelchair, which she thinks she was using last night. She also has some right leg pain, but notes that has been present for some time. CT head with subtle periventricular hypodensities at frontal horns, may represent non-acute ischemic encephalopathy CT chest with Interval regression of the right lower lobe extensive reticulation, thickened interlobular septa, honeycombing, fine subpleural cyst formation leaving behind an area of ground glass attenuation & atelectatic bands. No pulmonary consolidation or masses. A 7 mm calcified granuloma is noted in the left lower lobe. (stable). Middle mediastinal lymphadenopathy (stable) . Moderate left pleural effusion is noted. (stable ) . Average cardiac size with mild pericardial thickening /effusion. (stable). CT cervical spine with no acute osseous abnormality is seen. Lab findings with hypokalemia and hypomagnesemia. Given Zosyn in ED. Patient states she is feeling better today and insisting on discharge or leaving AMA. Labs and vitals stable. MRI negative for acute findings. Carotid with minimal arteriosclerotic plaquing in both common carotid arteries. Otherwise negative for critical stenosis/obstruction. Will send home with Bactrim for UTI based on past cultures. Advised follow up with PCP for resolution. Discharge Note New Diagnosis: UTI New Medications: Bactrim Follow Up: PCP Latest Assessment & Plan (1) Syncope Current Visit: Yes Status: Acute Assessment & Plan: -orthostatic vitals -tele -CT head subtle periventricular hypodensities at frontal horns may represent non-acute ischemic encephalopathy - neurology recommending MRI w/wo contrast -Echo -Carotid duplex -hold narcotic/xanax -PT/OT Code(s): R55 - SYNCOPE AND COLLAPSE (2) Encephalopathy acute Current Visit: Yes Status: Acute Assessment & Plan: -Neurology consulted with recs for MRI -pending -Could have multifactoral etiology - most likely delirium, either due to UTI/ medications as patient was on narcotics and benzodiazepines at home. Possibly structural issues with subtle CT head findings and h/o lung cancer or presyncope from dehydration from her diarrhea -IVF -Hold narcotics/xanax Code(s): G93.40 - ENCEPHALOPATHY, UNSPECIFIED (3) UTI (urinary tract infection) Current Visit: Yes Status: Acute Qualifiers: Assessment & Plan: -h/o recurrent UTI - most recent cultures with Klebsiella aerogenes - dc zosyn - Merrem initiated -Follow culture Code(s): N39.0 - URINARY TRACT INFECTION, SITE NOT SPECIFIED (4) Diarrhea Current Visit: Yes Status: Acute Assessment & Plan: -Continue lomotil - can alt with immodium if needed Code(s): R19.7 - DIARRHEA, UNSPECIFIED (5) Hypokalemia Current Visit: Yes Status: Acute Assessment & Plan: -Replenish per protocol Code(s): E87.6 - HYPOKALEMIA (6) Hypomagnesemia Current Visit: Yes Status: Acute Assessment & Plan: -MG 4g given Code(s): E83.42 - HYPOMAGNESEMIA (7) Type 2 diabetes mellitus Current Visit: Yes Status: Acute Assessment & Plan: -lantus 11 units QHS -mod SSI -ADA diet -BG level elevated this morning. Patient states she is very brittle- declines additional dosing of insulin to bring levels down. I spent 35 minutes [id number] with the patient on the day of discharge performing discharge exam, discussing hospital stay and discharge instructions with patient and caregivers, preparation of discharge records, prescriptions & referral forms and addressing any questions/concerns the patient had as documented above. - Vitals & Intake/Output Vital Signs: Vital Signs Temperature 98.0 F 01/02/24 15:11 Pulse Rate 92 H 01/02/24 15:11 Respiratory Rate 18 01/02/24 15:11 Blood Pressure 138/76 01/02/24 15:11 O2 Sat by Pulse Oximetry 92 L 01/02/24 15:11 Intake & Output: Intake & Output 12/31/23 01/01/24 01/02/24 01/03/24 11:59 11:59 11:59 11:59 Intake Total 480 360 Balance 480 360 Weight 47.627 kg 51 kg - Lab Result Diagrams: 01/02/24 05:40 01/02/24 05:40 Lab Results-Last 24 Hrs: Lab Results-Last 24 Hours 01/01/24 01/01/24 01/01/24 Range/Units 12:20 20:42 21:58 WBC (3.98-10.04) x10^3/uL RBC (3.93-5.22) x10^6/uL Hgb (11.2-15.7) g/dL Hct (34.1-44.9) % MCV (79.4-94.8) fL MCH (25.6-32.2) pg MCHC (32.2-35.5) g/dL RDW (11.7-14.4) % Plt Count (182-369) x10^3/uL MPV (9.4-12.3) fL Sodium (135-145) mmol/L Potassium (3.5-5.1) mmol/L Chloride (98-107) mmol/L Carbon Dioxide (22-30) mmol/L Anion Gap (5-15) MEQ/L BUN (7-17) mg/dL Creatinine (0.52-1.04) mg/dL Estimated GFR ML/MIN Glucose (74-106) mg/dL POC Glucometer 144 H (74 to 106) mg/dL Calcium (8.4-10.2) mg/dL Magnesium (1.6-2.3) mg/dL Troponin I < 0.012 < 0.012 (0.000-0.033) ng/mL 01/02/24 01/02/24 01/02/24 Range/Units 05:40 05:40 06:48 WBC 9.1 (3.98-10.04) x10^3/uL RBC 3.78 L (3.93-5.22) x10^6/uL Hgb 11.1 L (11.2-15.7) g/dL Hct 35.0 (34.1-44.9) % MCV 92.6 (79.4-94.8) fL MCH 29.4 (25.6-32.2) pg MCHC 31.7 L (32.2-35.5) g/dL RDW 14.7 H (11.7-14.4) % Plt Count 500 H (182-369) x10^3/uL MPV 8.9 L (9.4-12.3) fL Sodium 136 (135-145) mmol/L Potassium 3.5 (3.5-5.1) mmol/L Chloride 107 (98-107) mmol/L Carbon Dioxide 26 (22-30) mmol/L Anion Gap 6.3 (5-15) MEQ/L BUN 26 H (7-17) mg/dL Creatinine 0.86 (0.52-1.04) mg/dL Estimated GFR 76.3 ML/MIN Glucose 424 H (74-106) mg/dL POC Glucometer 456 H (74 to 106) mg/dL Calcium 8.7 (8.4-10.2) mg/dL Magnesium 2.8 H (1.6-2.3) mg/dL Troponin I (0.000-0.033) ng/mL 01/02/24 01/02/24 01/02/24 Range/Units 08:46 11:20 14:24 WBC (3.98-10.04) x10^3/uL RBC (3.93-5.22) x10^6/uL Hgb (11.2-15.7) g/dL Hct (34.1-44.9) % MCV (79.4-94.8) fL MCH (25.6-32.2) pg MCHC (32.2-35.5) g/dL RDW (11.7-14.4) % Plt Count (182-369) x10^3/uL MPV (9.4-12.3) fL Sodium (135-145) mmol/L Potassium (3.5-5.1) mmol/L Chloride (98-107) mmol/L Carbon Dioxide (22-30) mmol/L Anion Gap (5-15) MEQ/L BUN (7-17) mg/dL Creatinine (0.52-1.04) mg/dL Estimated GFR ML/MIN Glucose (74-106) mg/dL POC Glucometer 447 H 402 H 317 H (74 to 106) mg/dL Calcium (8.4-10.2) mg/dL Magnesium (1.6-2.3) mg/dL Troponin I (0.000-0.033) ng/mL 01/02/24 Range/Units 16:04 WBC (3.98-10.04) x10^3/uL RBC (3.93-5.22) x10^6/uL Hgb (11.2-15.7) g/dL Hct (34.1-44.9) % MCV (79.4-94.8) fL MCH (25.6-32.2) pg MCHC (32.2-35.5) g/dL RDW (11.7-14.4) % Plt Count (182-369) x10^3/uL MPV (9.4-12.3) fL Sodium (135-145) mmol/L Potassium (3.5-5.1) mmol/L Chloride (98-107) mmol/L Carbon Dioxide (22-30) mmol/L Anion Gap (5-15) MEQ/L BUN (7-17) mg/dL Creatinine (0.52-1.04) mg/dL Estimated GFR ML/MIN Glucose (74-106) mg/dL POC Glucometer 248 H (74 to 106) mg/dL Calcium (8.4-10.2) mg/dL Magnesium (1.6-2.3) mg/dL Troponin I (0.000-0.033) ng/mL Micro Results-Entire Visit: Accuchecks Date 01/02/24 Date 01/02/24 Date 01/02/24 Date 01/01/24 Time 16:05 Time 11:20 Time 07:05 - Radiology Exams Ordered Rad Exams-Entire Visit: Radiology Procedures Category Date Time Status CAROTID BILATERAL [US] Routine Exams 01/02/24 13:17 Completed CERVICAL SPINE WO CONTRAST [CT] Stat Exams 01/01/24 11:47 Completed CHEST WITHOUT CONTRAST [CT] Stat Exams 01/01/24 11:47 Completed ECHO W/2D AND DOPPLER [US] Routine Exams 01/02/24 13:15 Taken HEAD WITHOUT CONTRAST [CT] Stat Exams 01/01/24 11:47 Completed MRI BRAIN W & W/O CONTRAST [MRI] Routine Exams 01/02/24 00:51 Completed - Procedures and Test Procedures and Tests throughout Hospitalization: Therapy Orders & Screens 01/01/24 19:31 Oxygen Nasal Cannula 2 lpm Comment: Respiratory Therapy Consult ONCE Comment: Reason For Exam: 01/01/24 21:01 OT Screen per Nursing Assess ONCE Comment: Protocol Order Physician Instructions: Greater than 3 points order OT Admission Screening Reason For Exam: Triggered on Admission Diagnosis: ACUTE ENCEPHALOPATHY Open Wound/Cellutlitis/Pressure Ulcers: Yes Acute Fx/ORIF/Change in wt bearing status: No Severe MUSCULOSKELETAL pain: Yes ADL Dysfunction: No Acute CVA w/Hemiparesis/Hemiplegia: No Decreased Functional Mobility/Strength: Yes Sprain/Strain: No Acute Post-op Mobility Dysfunction: No Total Points: 11 PT Screen per Nursing Assess ONCE Comment: Protocol Order Physician Instructions: Greater than 3 points order PT Admission Screenin Reason For Exam: Triggered on Admission Diagnosis: ACUTE ENCEPHALOPATHY Open Wound/Cellutlitis/Pressure Ulcers: Yes Acute Fx/ORIF/Change in wt bearing status: No Severe MUSCULOSKELETAL pain: Yes ADL Dysfunction: No Acute CVA w/Hemiparesis/Hemiplegia: No Decreased Functional Mobility/Strength: Yes Sprain/Strain: No Acute Post-op Mobility Dysfunction: No Total Points: 11 Smoking Cessation Education ONCE Comment: Diagnosis: ACUTE ENCEPHALOPATHY Smoking Status: Current every day smoker How long have you smoked: 30 YEARS Have you smoked in the past 12 months: Yes Approximately how many cigarettes per day: 1 PACK Do you dip or chew tobacco: No Discharge Exam General Appearance: no apparent distress Neurologic Exam: alert, oriented x 3, cooperative Eye Exam: PERRL Ears, Nose, Throat Exam: normal ENT inspection Neck Exam: normal inspection Respiratory Exam: normal breath sounds, lungs clear Cardiovascular Exam: regular rate/rhythm, normal heart sounds Gastrointestinal/Abdomen Exam: soft, normal bowel sounds Pelvic Exam: deferred Rectal Exam: deferred Back Exam: normal inspection Extremity Exam: normal inspection Skin Exam: normal color Wound Assessment: Skin/Wound Assessment Wound/Incision Assessment Start: 01/01/24 21:01 Text: Status: Active Freq: Q6H Protocol: Document 01/02/24 14:00 [facility] [email or web address] (Rec: 01/02/24 15:26 [facility] [email or web address]) Wound/Incision Assessment Left Hand Wound Assessment Shift Assessment Wound Type Abrasion Wound Stage Non Pressure Wound Drainage Amount None Comment SMALL ABRASION NOTED TO HAND, LARGE BRUISE NOTED, COMPRESSION SLEEVE ON FROM HOME Heel Wound Assessment Shift Assessment Wound Type RED, BLANCHABLE Wound Stage Non Pressure Wound Comment HEELS FLOATED ON PILLOWS Left Lower Other Wound Assessment Shift Assessment Wound Type Skin Tear Wound Stage Non Pressure Wound Dressing Status Dry & Intact Drainage Amount None Primary Dressing Non-Adherent Gauze Pads Lower Other Wound Assessment Shift Assessment Wound Type RED AND WARM TO THE TOUCH Wound Stage Non Pressure Wound Drainage Amount None Comment BILATERAL LOWER LEGS ARE RED AND WARM TO THE TOUCH Final Diagnosis/Problem List - Final Discharge Diagnosis/Problem (1) Syncope Current Visit: Yes Status: Acute Code(s): R55 - SYNCOPE AND COLLAPSE (2) Encephalopathy acute Current Visit: Yes Status: Acute Code(s): G93.40 - ENCEPHALOPATHY, UNSPECIFIED (3) UTI (urinary tract infection) Current Visit: Yes Status: Acute Code(s): N39.0 - URINARY TRACT INFECTION, SITE NOT SPECIFIED (4) Diarrhea Current Visit: Yes Status: Acute Code(s): R19.7 - DIARRHEA, UNSPECIFIED (5) Hypokalemia Current Visit: Yes Status: Acute Code(s): E87.6 - HYPOKALEMIA (6) Hypomagnesemia Current Visit: Yes Status: Acute Code(s): E83.42 - HYPOMAGNESEMIA (7) Type 2 diabetes mellitus Current Visit: Yes Status: Acute - Discharge Disposition: Home, Self-Care Condition: Stable Prescriptions: New Sulfamethoxazole/Trimethoprim [Bactrim Ds Tablet] 1 each PO BID PRN 7 Days #14 tablet Continue Promethazine HCl 25 mg [Phenergan 25 mg] 25 mg PO QID PRN PRN Reason: Nausea Prochlorperazine Maleate [Compazine] 10 mg PO BIDPRN PRN PRN Reason: Nausea Insulin Aspart [NovoLOG Insulin] 0 unit SQ AC PRN PRN Reason: Hyperglycemia Insulin Glargine,Hum.rec.anlog [Touwilfrid Solstevear] 11 unit SQ QHS Mirtazapine 30 mg [Remeron 30 mg] 30 mg PO HS Gabapentin [Neurontin ] 300 mg PO HS Ergocalciferol (Vitamin D2) [Vitamin D2] 1,250 mcg PO WEEKLY Diphenoxylate HCl/Atropine [Diphenoxylate-Atrop 2.5-0.025] 1 tab PO QIDPRN PRN PRN Reason: Diarrhea Prednisone 10 mg [Deltasone 10 mg] 10 mg PO UD ALPRAZolam 1 MG [Xanax 1 mg] 1 mg PO BID Follow up with: LYUDMILA ARIAS MD [Primary Care Provider] -
[2024-01-02] MEDS ORDERED: Merrem 1 GM in Sodium Chloride 100ML MINI-BAG PLUS 100 ML IV SCH (18:00)
[2024-01-02] MEDS ORDERED: Lantus Insulin SQ SCH (22:00)
[2024-01-02] MEDS ORDERED: NEURONTIN PO SCH (22:00)
[2024-01-02] MEDS ORDERED: NON-FORMULARY ITEM (Insulin Glargine,Hum.Rec.Anlog [Toujeo Solostar] 300 UNIT/ML Insuln.Pe SQ SCH (23:10)
== END 2024-01-02 17:18 | disposition home or self-care (01) ==
LOC: ED 11:25 → MED SURG 19:19
PROVIDERS: ADMIT Internal Medicine; ATTEND Internal Medicine
DX: R55 Syncope and collapse (principal); G93.40 Encephalopathy, unspecified; N39.0 Urinary tract infection, site not specified; R19.7 Diarrhea, unspecified; E87.6 Hypokalemia; E83.42 Hypomagnesemia; E11.9 Type 2 diabetes mellitus without complications; I25.10 Atherosclerotic heart disease of native coronary artery without angina pectoris; I10 Essential (primary) hypertension; J44.9 Chronic obstructive pulmonary disease, unspecified; F17.200 Nicotine dependence, unspecified, uncomplicated; W19.XXXA Unspecified fall, initial encounter; Z79.899 Other long term (current) drug therapy; Z85.118 Personal history of other malignant neoplasm of bronchus and lung
CPT/HCPCS: 36000; 36415; 70450; 70553; 71250; 72125; 80048; 80053; 80307; 81001; 82550; 82947; 83605; 83690; 83735; 83880; 84145; 84484; 85025; 85027; 87040; 87086; 93005; 93306; 93880; 96365; 96374; 99285; J1817; A9270-GY; J3475

== ENCOUNTER 2024-04-06 03:31 | Emergency (ER) | payer BC ==
[2024-04-06 03:47] VITALS: TEMP 97.7
--- NOTE | 2024-04-06 04:16 | ERPHSYRPT ---
- History of Present Illness Time Seen by Provider: 04/06/24 04:15 Source: family Exam Limitations: clinical condition Patient Subjective Stated Complaint: states that pt had colonoscopy on and was feeling unwell yesterday. today blood sugar at home was 440 and pt began vomiting. Triage Nursing Assessment: pt alert and oriented, answers quesitons approp. pt back to room per wheelchair and transfers to stretcher with assist of 2. unsteady whenup. skin warm and dry. abd soft and nontender to light palpation. respirations nonlabored. Physician History: The patient is a female with diabetes who presents with chronic diarrhea and concerns of possible diabetic ketoacidosis (DKA). She is accompanied by a family member. She has a history of diabetes and has experienced diabetic ketoacidosis (DKA) several times in the past. Recently, after a colonoscopy performed last , she has been excessively sleepy, with minimal intake of food and fluids. Her blood sugar was recorded at 440 mg/dL this morning. There was an issue with insulin administration as the needle bent during injection, raising concerns about whether the medication was properly delivered. She has also started vomiting this morning. She has been experiencing chronic diarrhea for approximately four months. A test conducted about a month ago confirmed a C. difficile infection, for which she completed a course of Flagyl and another unspecified medication. Despite treatment, the diarrhea persists. She has a history of lung cancer, for which she underwent a year of chemotherapy and immunotherapy, and had part of her lung removed. Post-treatment, she experienced a fall resulting in a hip fracture, necessitating multiple s urgeries. Since these events, she has been dealing with chronic diarrhea. Timing/Duration: yesterday Severity: moderate Modifying Factors: Worsens With: eating Associated Symptoms: nausea, vomiting, loss of appetite, malaise, No abdominal pain, No fever Allergies/Adverse Reactions: orphenadrine citrate [From Norflex] Allergy (Intermediate, Verified 04/06/24 03:48) severe vomiting adhesive tape Allergy (Verified 04/06/24 03:48) levofloxacin [From Levaquin] Adverse Reaction (Mild, Verified 04/06/24 03:48) Nausea and Vomiting Home Medications: Promethazine HCl 25 mg [Phenergan 25 mg] 25 mg PO QID PRN 07/17/21 [History] Prochlorperazine Maleate [Compazine] 10 mg PO BIDPRN PRN 08/30/22 [History] Insulin Aspart [NovoLOG Insulin] 0 unit SQ AC PRN 10/08/22 [History] Insulin Glargine,Hum.rec.anlog [Toujeo Solostar] 11 unit SQ QHS 11/28/22 [History] Gabapentin [Neurontin ] 300 mg PO HS 01/01/23 [History] Mirtazapine 30 mg [Remeron 30 mg] 30 mg PO HS 01/01/23 [History] ALPRAZolam 1 MG [Xanax 1 mg] 1 mg PO BID 01/01/24 [History] Diphenoxylate HCl/Atropine [Diphenoxylate-Atrop 2.5-0.025] 1 tab PO QIDPRN PRN 01/01/24 [History] Ergocalciferol (Vitamin D2) [Vitamin D2] 1,250 mcg PO WEEKLY 01/01/24 [History] Prednisone 10 mg [Deltasone 10 mg] 10 mg PO UD 01/01/24 [History] Hx Tetanus, Diphtheria Vaccination/Date Given: Yes (2015) Hx Influenza Vaccination/Date Given: Yes Hx Pneumococcal Vaccination/Date Given: Yes Immunizations Up to Date: Yes Travel Risk - International Travel Have you traveled outside of the country in past 3 weeks: No - Emerging Infectious Disease Are you exhibiting symptoms associated with any current EIDs: No Symptoms: Diarrhea - Review of Systems All Other Systems: Reviewed and Negative - Past Medical History Pertinent Past Medical History: Yes Neurological History: No Pertinent History ENT History: Cataracts Cardiac History: Coronary Artery Disease, High Cholesterol, Hypertension Respiratory History: COPD, Lung Cancer Endocrine Medical History: Diabetes Type II Musculoskeletal History: Fractures GI Medical History: GERD History: Renal Disease Psycho-Social History: Anxiety, Depression Female Reproductive Disorders: No Pertinent History Other Medical History: Previous left leg fx many years ago,rt wrist fx with cast. left lower lobe lung cancer. chemo - Past Surgical History Past Surgical History: Yes Neuro Surgical History: No Pertinent History Cardiac: Cardiac Catheterization, Cardiac Stent Respiratory: Lobectomy Gastrointestinal: Cholecystectomy Genitourinary: No Pertinent History Musculoskeletal: Other Female Surgical History: Tubal Ligation Other Surgical History: BUNONECTOMY. BACK SURGERY X2, right upper chest port placement. LL lung lobectomy Significant Family History: heart disease, diabetes, hypertension - Social History Smoking Status: Current every day smoker How long have you smoked: 50 years Exposure to second hand smoke: Yes Alcohol Use: None Drug Use: none Patient Lives Alone: No - Social Determinants of Health Will the patient participate in the screening: Declined to provide - Nursing Vital Signs Nursing Vital Signs: Initial Vital Signs Temperature 97.7 F 04/06/24 03:37 Pulse Rate 109 H 04/06/24 03:37 Respiratory Rate 18 04/06/24 03:37 Blood Pressure 173/83 04/06/24 03:37 O2 Sat by Pulse Oximetry 98 04/06/24 03:37 Pain Scale Pain Intensity 4 - Physical Exam General Appearance: lethargy Respiratory Exam: airway intact, No respiratory distress Cardiovascular Exam: regular rate/rhythm, capillary refill <2 sec, No edema Gastrointestinal/Abdomen Exam: soft, No tenderness, No distention, No mass, No guarding, No rebound Extremity Exam: normal inspection, No pedal edema, No tenderness Skin Exam: normal color, warm, dry SpO2 Interpretation: normal SpO2: 98 O2 Delivery: Room Air - Course Nursing assessment & vital signs reviewed: Yes Ordered Tests: Medication Summary Discontinued Medications Generic Name Dose Route Start Last Admin Trade Name Freq PRN Reason Stop Dose Admin Sodium Chloride 1,000 mls @ 999 mls/hr 04/06/24 04:16 04/06/24 07:26 Sodium Chloride 0.9% 1000 Ml IV 04/06/24 05:16 Infused .Q1H1M STA Infusion Sodium Chloride Confirm 04/06/24 04:24 Sodium Chloride 0.9% 1000 Ml Administered 04/06/24 04:25 Dose 1,000 mls @ ud .ROUTE .STK-MED ONE Magnesium Sulfate/Water 2 gm in 50 mls @ 100 mls/hr 04/06/24 04:59 04/06/24 07:26 Magnesium Sulf 2 G/50 Ml Bag IV 04/06/24 05:28 Infused ONCE ONE Infusion Potassium Chloride 20 meq in 100 mls @ 50 mls/hr 04/06/24 05:15 04/06/24 07:28 Potassium Chloride 20 Meq In Water 100ml IV 04/06/24 09:14 50 mls/hr Q2H NISSA Administration INSULIN REGULAR IN 0.9 % NACL 100 unit in 100 mls @ 5.04 mls/hr 04/06/24 05:05 04/06/24 06:48 Myxredlin 100 Unit/100 Ml Bag IV 05/06/24 05:04 0.08 unit/kg/hr .[id number] PRN 4 mls/hr HYPERGLYCEMIA Titration Protocol 0.1 UNIT/KG/HR Magnesium Sulfate/Dextrose Confirm 04/06/24 05:16 Magnesium 1 Gm / 100 Ml D5w Administered 04/06/24 05:17 Dose 100 mls @ ud IV .STK-MED ONE Magnesium Sulfate/Water Confirm 04/06/24 05:36 Magnesium Sulf 2 G/50 Ml Bag Administered 04/06/24 05:37 Dose 2 gm in 50 mls @ ud IV .STK-MED ONE Sodium Chloride Confirm 04/06/24 05:50 Sodium Chloride 0.9% 1000 Ml Administered 04/06/24 05:51 Dose 1,000 mls @ ud .ROUTE .STK-MED ONE Sodium Chloride 1,000 mls @ 999 mls/hr 04/06/24 05:51 04/06/24 07:26 Sodium Chloride 0.9% 1000 Ml IV 04/06/24 06:51 Infused .Q1H1M STA Infusion Potassium Chloride Confirm 04/06/24 05:16 Potassium Chloride 20 Meq In Water 100ml Administered 04/06/24 05:17 Dose 200 mls @ ud IV .STK-MED ONE INSULIN REGULAR IN 0.9 % NACL Confirm 04/06/24 05:17 Myxredlin 100 Unit/100 Ml Bag Administered 04/06/24 05:18 Dose 100 unit in 100 mls @ ud IV .STK-MED ONE Insulin Human Lispro 12 unit 04/06/24 04:19 04/06/24 04:33 Insulin Lispro 1 Unit SQ 04/06/24 04:20 12 unit STAT ONE Administration Insulin Human Lispro Confirm 04/06/24 04:32 Insulin Lispro 1 Unit Administered 04/06/24 04:33 Dose 12 unit .ROUTE .STK-MED ONE Potassium Bicarbonate 50 meq 04/06/24 05:01 04/06/24 05:38 Potassium Bicarbonate 25 Meq Tab PO 04/06/24 05:02 50 meq STAT ONE Administration Potassium Bicarbonate Confirm 04/06/24 05:16 Potassium Bicarbonate 25 Meq Tab Administered 04/06/24 05:17 Dose 50 meq .ROUTE .STK-MED ONE Lab/Rad Data: Laboratory Result Diagrams 04/06/24 04:15 04/06/24 04:15 Laboratory Results 04/06/24 04/06/24 04/06/24 Range/Units 07:56 06:45 05:26 WBC (3.98-10.04) x10^3/uL RBC (3.93-5.22) x10^6/uL Hgb (11.2-15.7) g/dL Hct (34.1-44.9) % MCV (79.4-94.8) fL MCH (25.6-32.2) pg MCHC (32.2-35.5) g/dL RDW (11.7-14.4) % Plt Count (182-369) x10^3/uL MPV (9.4-12.3) fL Segmented Neutrophils (34.0-71.1) % Band Neutrophils (0.0-2.0) % Lymphocytes (Manual) (19.3-51.7) % Monocytes (Manual) (4.7-12.5) % Eosinophils (Manual) (0.7-5.8) % Platelet Estimate (NORMAL) RBC Morphology Anisocytosis Macrocytosis pO2/FiO2 Ratio % VBG pH (7.32-7.42) VBG pCO2 at Pat Temp (42-55) mm/Hg VBG pO2 at Pat Temp (25-40) mm/Hg VBG HCO3 (22-28) meq/L VBG O2 Sat (Moe) (95-100) VBG Base Excess (-2.0-2.0) VBG Hemoglobin VBG Carboxyhemoglobin (0.0-6.9) % T HGB POC Potassium (3.5-5.1) Sodium (135-145) mmol/L Potassium (3.5-5.1) mmol/L Chloride (98-107) mmol/L Carbon Dioxide (22-30) mmol/L Anion Gap (5-15) MEQ/L BUN (7-17) mg/dL Creatinine (0.52-1.04) mg/dL Estimated GFR ML/MIN Glucose (74-106) mg/dL POC Glucometer 121 H 209 H 311 H (74 to 106) mg/dL Hemoglobin A1c (4.5-6.0) % Lactic Acid (0.4-2.0) Calcium (8.4-10.2) mg/dL Phosphorus (2.5-4.5) mg/dL Magnesium (1.6-2.3) mg/dL Total Bilirubin (0.2-1.3) mg/dL AST (14-36) U/L ALT (0-35) U/L Alkaline Phosphatase (38-126) U/L Serum Total Protein (6.3-8.2) g/dL Albumin (3.5-5.0) g/dL Lipase (23-300) U/L TSH 3rd Generation (0.470-4.680) mIU/L 04/06/24 04/06/24 04/06/24 Range/Units 04:20 04:15 04:15 WBC (3.98-10.04) x10^3/uL RBC (3.93-5.22) x10^6/uL Hgb (11.2-15.7) g/dL Hct (34.1-44.9) % MCV (79.4-94.8) fL MCH (25.6-32.2) pg MCHC (32.2-35.5) g/dL RDW (11.7-14.4) % Plt Count (182-369) x10^3/uL MPV (9.4-12.3) fL Segmented Neutrophils (34.0-71.1) % Band Neutrophils (0.0-2.0) % Lymphocytes (Manual) (19.3-51.7) % Monocytes (Manual) (4.7-12.5) % Eosinophils (Manual) (0.7-5.8) % Platelet Estimate (NORMAL) RBC Morphology Anisocytosis Macrocytosis pO2/FiO2 Ratio 21.0 % VBG pH 7.21 L* (7.32-7.42) VBG pCO2 at Pat Temp 34 L (42-55) mm/Hg VBG pO2 at Pat Temp 56 H (25-40) mm/Hg VBG HCO3 13.6 L* (22-28) meq/L VBG O2 Sat (Moe) 83.0 L (95-100) VBG Base Excess -13.2 L (-2.0-2.0) VBG Hemoglobin 13.1 VBG Carboxyhemoglobin 3.4 (0.0-6.9) % T HGB POC Potassium 3.3 L (3.5-5.1) Sodium (135-145) mmol/L Potassium (3.5-5.1) mmol/L Chloride (98-107) mmol/L Carbon Dioxide (22-30) mmol/L Anion Gap (5-15) MEQ/L BUN (7-17) mg/dL Creatinine (0.52-1.04) mg/dL Estimated GFR ML/MIN Glucose (74-106) mg/dL POC Glucometer (74 to 106) mg/dL Hemoglobin A1c 9.41 H (4.5-6.0) % Lactic Acid 2.3 H (0.4-2.0) Calcium (8.4-10.2) mg/dL Phosphorus 4.5 (2.5-4.5) mg/dL Magnesium (1.6-2.3) mg/dL Total Bilirubin (0.2-1.3) mg/dL AST (14-36) U/L ALT (0-35) U/L Alkaline Phosphatase (38-126) U/L Serum Total Protein (6.3-8.2) g/dL Albumin (3.5-5.0) g/dL Lipase (23-300) U/L TSH 3rd Generation (0.470-4.680) mIU/L 04/06/24 04/06/24 04/06/24 Range/Units 04:15 04:15 04:15 WBC 12.7 H (3.98-10.04) x10^3/uL RBC 4.31 (3.93-5.22) x10^6/uL Hgb 12.6 (11.2-15.7) g/dL Hct 41.1 (34.1-44.9) % MCV 95.4 H (79.4-94.8) fL MCH 29.2 (25.6-32.2) pg MCHC 30.7 L (32.2-35.5) g/dL RDW 15.2 H (11.7-14.4) % Plt Count 432 H (182-369) x10^3/uL MPV 9.0 L (9.4-12.3) fL Segmented Neutrophils 83 H (34.0-71.1) % Band Neutrophils 1 (0.0-2.0) % Lymphocytes (Manual) 10 L (19.3-51.7) % Monocytes (Manual) 5 (4.7-12.5) % Eosinophils (Manual) 1 (0.7-5.8) % Platelet Estimate NORMAL (NORMAL) RBC Morphology ABNORMAL Anisocytosis 2+ Macrocytosis 1+ pO2/FiO2 Ratio % VBG pH (7.32-7.42) VBG pCO2 at Pat Temp (42-55) mm/Hg VBG pO2 at Pat Temp (25-40) mm/Hg VBG HCO3 (22-28) meq/L VBG O2 Sat (Moe) (95-100) VBG Base Excess (-2.0-2.0) VBG Hemoglobin VBG Carboxyhemoglobin (0.0-6.9) % T HGB POC Potassium (3.5-5.1) Sodium 138 (135-145) mmol/L Potassium 3.2 L (3.5-5.1) mmol/L Chloride 102 (98-107) mmol/L Carbon Dioxide 9 L* (22-30) mmol/L Anion Gap 30.2 H (5-15) MEQ/L BUN 21 H (7-17) mg/dL Creatinine 0.89 (0.52-1.04) mg/dL Estimated GFR 73.3 ML/MIN Glucose 424 H (74-106) mg/dL POC Glucometer (74 to 106) mg/dL Hemoglobin A1c (4.5-6.0) % Lactic Acid (0.4-2.0) Calcium 9.7 (8.4-10.2) mg/dL Phosphorus (2.5-4.5) mg/dL Magnesium 1.5 L (1.6-2.3) mg/dL Total Bilirubin 0.50 (0.2-1.3) mg/dL AST 33 (14-36) U/L ALT 49 H (0-35) U/L Alkaline Phosphatase 317 H (38-126) U/L Serum Total Protein 7.3 (6.3-8.2) g/dL Albumin 4.0 (3.5-5.0) g/dL Lipase 32 (23-300) U/L TSH 3rd Generation 6.315 H (0.470-4.680) mIU/L 04/06/24 Range/Units 03:40 WBC (3.98-10.04) x10^3/uL RBC (3.93-5.22) x10^6/uL Hgb (11.2-15.7) g/dL Hct (34.1-44.9) % MCV (79.4-94.8) fL MCH (25.6-32.2) pg MCHC (32.2-35.5) g/dL RDW (11.7-14.4) % Plt Count (182-369) x10^3/uL MPV (9.4-12.3) fL Segmented Neutrophils (34.0-71.1) % Band Neutrophils (0.0-2.0) % Lymphocytes (Manual) (19.3-51.7) % Monocytes (Manual) (4.7-12.5) % Eosinophils (Manual) (0.7-5.8) % Platelet Estimate (NORMAL) RBC Morphology Anisocytosis Macrocytosis pO2/FiO2 Ratio % VBG pH (7.32-7.42) VBG pCO2 at Pat Temp (42-55) mm/Hg VBG pO2 at Pat Temp (25-40) mm/Hg VBG HCO3 (22-28) meq/L VBG O2 Sat (Moe) (95-100) VBG Base Excess (-2.0-2.0) VBG Hemoglobin VBG Carboxyhemoglobin (0.0-6.9) % T HGB POC Potassium (3.5-5.1) Sodium (135-145) mmol/L Potassium (3.5-5.1) mmol/L Chloride (98-107) mmol/L Carbon Dioxide (22-30) mmol/L Anion Gap (5-15) MEQ/L BUN (7-17) mg/dL Creatinine (0.52-1.04) mg/dL Estimated GFR ML/MIN Glucose (74-106) mg/dL POC Glucometer 392 H (74 to 106) mg/dL Hemoglobin A1c (4.5-6.0) % Lactic Acid (0.4-2.0) Calcium (8.4-10.2) mg/dL Phosphorus (2.5-4.5) mg/dL Magnesium (1.6-2.3) mg/dL Total Bilirubin (0.2-1.3) mg/dL AST (14-36) U/L ALT (0-35) U/L Alkaline Phosphatase (38-126) U/L Serum Total Protein (6.3-8.2) g/dL Albumin (3.5-5.0) g/dL Lipase (23-300) U/L TSH 3rd Generation (0.470-4.680) mIU/L - Progress Progress: unchanged Progress Note: Chronic Diarrhea Chronic diarrhea for four months. Recent colonoscopy with no significant findings. Previous C. difficile infection treated with Flagyl. Possible dehydration and malnutrition due to poor oral intake. Colonoscopy prep was difficult for the patient, who is diabetic. - Order lab work to assess dehydration and electrolyte imbalance - Schedule follow-up with etl programmer to discuss colonoscopy results Diabetes Mellitus Diabetes with recent blood sugar reading of 440 mg/dL. Possible diabetic keto acidosis (DKA) due to vomiting, poor oral intake, and lethargy. History of multiple DKA episodes. Recent insulin administration may have been compromised due to a bent needle. - Order lab work to assess for DKA - Administer insulin as needed - Monitor blood glucose levels closely WBC 12, K 3.2, Mg 1.5, HCO3 9, Anion Gap 30, Glucose 424, HbA1c 9.4 VBG - pH 7.21 UA pending POC glucose initially showed Glucose over 350, 12u Lispro given. Once labs returned DKA protocol initiated. 2g Mg given, 40meq KCl IV, 50meq K-Lyte, NS bolus and insulin gtt at 0.1u/kg/hr started. ICU beds in house filled so we will have to transfer patient out. Family requested [facility], spoke with transfer center at 0514, waiting to hear word on acceptance. Spoke with Dr. Yfn Tenorio at [facility] who accepts transfer, will go ER to ER. Waiting on EMS at this time to transport. Sign case over at 0700. Counseled pt/family regarding: lab results, diagnosis, need for follow-up Medical Desision Making - Diagnostic Testing Diagnostic test were ordered, analyzed, and reviewed by me: Yes Radiological Interpretation: Interpreted by me - Risk of complications The pt has a mod risk of morbidity or mortality based on: Need for prescription drug management The pt has a high risk of morbidity or mortality based on: Decision regarding hospitilization or escalation of hosp level of care - Departure Departure Disposition: Transfer ([facility]) Clinical Impression: Hypomagnesemia, Hypokalemia, DKA (diabetic ketoacidosis), Diabetes mellitus, insulin dependent (IDDM), uncontrolled, Hyperglycemia Condition: Stable Critical Care Time: No Referrals: LYUDMILA ARIAS MD [Primary Care Provider] - Follow up/PCP as directed Instructions: Diabetic ketoacidosis
[2024-04-06] MEDS ORDERED: Sodium Chloride 0.9% 1000 ML 1,000 ML ONE ×2 (04:24→05:50)
[2024-04-06] MEDS: Sodium Chloride 0.9% 1000 ML 1,000 ML IV STA ×2 (04:25→05:52)
[2024-04-06 04:29] LABS: Hematocrit 41.1 % (34.1-44.9); Hemoglobin 12.6 g/dL (11.2-15.7); Mean Cell Volume 95.4 fL (79.4-94.8); Mean Corpuscular Hemoglobin 29.2 pg (25.6-32.2); Mean Corpuscular Hgb Concent. 30.7 g/dL (32.2-35.5); Platelet Count 432 x10^3/uL (182-369); Red Blood Count 4.31 x10^6/uL (3.93-5.22); Red Cell Distribution Width 15.2 % (11.7-14.4); White Blood Count 12.7 x10^3/uL (3.98-10.04)
[2024-04-06 04:32] LABS: Lactic Acid 2.3 (0.4-2.0); VBG BASE EXCESS -13.2 (-2.0-2.0); VBG CARBOXYHEMOGLOBIN 3.4 % T HGB (0.0-6.9); VBG HCO3- 13.6 meq/L (22-28); VBG HEMOGLOBIN 13.1; VBG POTASSIUM 3.3 (3.5-5.1)
[2024-04-06] MEDS ORDERED: HUMALOG ONE (04:32)
[2024-04-06 04:33] LABS: VBG pH 7.21 (7.32-7.42)
[2024-04-06] MEDS: HUMALOG SQ ONE (04:33)
[2024-04-06 04:41] LABS: ANION GAP 30.2 MEQ/L (5-15); BILIRUBIN,TOTAL 0.5 mg/dL (0.2-1.3); Calcium 9.7 mg/dL (8.4-10.2); Creatinine 1 0.89 mg/dL (0.52-1.04); EST GLOMERULAR FILTRATION RATE 73.3 ML/MIN; MAGNESIUM 1.5 mg/dL (1.6-2.3); Potassium 3.2 mmol/L (3.5-5.1); Total Protein 7.3 g/dL (6.3-8.2)
[2024-04-06 05:12] LABS: TSH, 3RD Generation 6.315 mIU/L (0.470-4.680)
[2024-04-06] MEDS ORDERED: K-LYTE ONE (05:16)
[2024-04-06] MEDS ORDERED: Magnesium 1 Gm / 100 Ml D5W*** 100 ML IV ONE (05:16)
[2024-04-06] MEDS ORDERED: POTASSIUM CHLORIDE 20 mEq IN WATER 100ML 200 ML IV ONE (05:16)
[2024-04-06] MEDS ORDERED: MYXREDLIN 100 UNIT/100 ML BAG 100 UNIT/100 ML PLAST..BAG IV ONE (05:17)
[2024-04-06 05:26] LABS: ANISOCYTOSIS 2+; BAND 1 % (0.0-2.0); Eosinophil 1 % (0.7-5.8); Lymphocytes 10 % (19.3-51.7); Macrocytosis 1+; Monocyte 5 % (4.7-12.5); Neutrophils 83 % (34.0-71.1); Platelet Estimate NORMAL (NORMAL); Total Cells Counted 100
[2024-04-06] MEDS: MYXREDLIN 100 UNIT/100 ML BAG 100 UNIT/100 ML PLAST..BAG IV PRN (05:27)
[2024-04-06] MEDS: POTASSIUM CHLORIDE 20 mEq IN WATER 100ML 20 MEQ/100 ML BAG IV SCH (05:29)
[2024-04-06] MEDS ORDERED: MAGNESIUM SULF 2 G/50 ML BAG 2 GM/50 ML PIGGYBACK IV ONE (05:36)
[2024-04-06] MEDS: MAGNESIUM SULF 2 G/50 ML BAG 2 GM/50 ML PIGGYBACK IV ONE (05:38)
[2024-04-06] MEDS: K-LYTE PO ONE (05:38)
[2024-04-06 08:04] VITALS: BP 133/68; PULSE 94; RESP 13
[2024-04-07 21:55] VITALS: O2SAT 98
== END 2024-04-06 08:22 | disposition short-term general hospital (02) ==
LOC: ED 03:31
DX: E11.10 Type 2 diabetes mellitus with ketoacidosis without coma (principal); E83.42 Hypomagnesemia; E87.6 Hypokalemia; Z79.4 Long term (current) use of insulin; Z79.899 Other long term (current) drug therapy; Z85.118 Personal history of other malignant neoplasm of bronchus and lung
CPT/HCPCS: 36415; 80053; 82805; 82947; 83036; 83605; 83690; 83735; 84100; 84443; 85025; 96360; 96361; 96365; 96374; 96375; 96376; 99285; J1817; J3475; J3480; A9270-GY

== ENCOUNTER 2024-06-24 18:22 | Observation (INO) | payer BC ==
--- NOTE | 2024-06-24 19:40 | ERPHSYRPT ---
- History of Present Illness Time Seen by Provider: 06/24/24 19:20 Source: patient Exam Limitations: clinical condition Patient Subjective Stated Complaint: cough/congestion Triage Nursing Assessment: patient states she saw her primary care dr last monday and he prescibed an antibiotic for her congestion/cough. patient reports no relief. patient has a hx of lung cancer. no longer under going treatment Timing/Duration: today Severity: mild Associated Symptoms: shortness of breath, cough, chills Allergies/Adverse Reactions: orphenadrine citrate [From Norflex] Allergy (Intermediate, Verified 06/24/24 18:35) severe vomiting adhesive tape Allergy (Verified 06/24/24 18:35) levofloxacin [From Levaquin] Adverse Reaction (Mild, Verified 06/24/24 18:35) Nausea and Vomiting Home Medications: Promethazine HCl 25 mg [Phenergan 25 mg] 25 mg PO QID PRN 07/17/21 [History] Prochlorperazine Maleate [Compazine] 10 mg PO BIDPRN PRN 08/30/22 [History] Insulin Aspart [NovoLOG Insulin] 0 unit SQ AC PRN 10/08/22 [History] Insulin Glargine,Hum.rec.anlog [Toujeo Solostar] 11 unit SQ QHS 11/28/22 [History] Gabapentin [Neurontin ] 300 mg PO HS 01/01/23 [History] Mirtazapine 30 mg [Remeron 30 mg] 30 mg PO HS 01/01/23 [History] ALPRAZolam 1 MG [Xanax 1 mg] 1 mg PO BID 01/01/24 [History] Diphenoxylate HCl/Atropine [Diphenoxylate-Atrop 2.5-0.025] 1 tab PO QIDPRN PRN 01/01/24 [History] Ergocalciferol (Vitamin D2) [Vitamin D2] 1,250 mcg PO WEEKLY 01/01/24 [History] Prednisone 10 mg [Deltasone 10 mg] 10 mg PO UD 01/01/24 [History] Hx Tetanus, Diphtheria Vaccination/Date Given: Yes (2015) Hx Influenza Vaccination/Date Given: Yes Hx Pneumococcal Vaccination/Date Given: Yes Travel Risk - International Travel Have you traveled outside of the country in past 3 weeks: No - Emerging Infectious Disease Are you exhibiting symptoms associated with any current EIDs: No Symptoms: Cough: New Onset - Review of Systems Constitutional: No Symptoms Eyes: No Symptoms Ears, Nose, & Throat: No Symptoms Respiratory: Cough, Dyspnea, Dyspnea on Exertion (COTO) Cardiac: No Symptoms Abdominal/Gastrointestinal: No Symptoms Genitourinary Symptoms: No Symptoms Musculoskeletal: No Symptoms - Past Medical History Pertinent Past Medical History: Yes Neurological History: No Pertinent History ENT History: Cataracts Cardiac History: Coronary Artery Disease, High Cholesterol, Hypertension Respiratory History: COPD, Lung Cancer Endocrine Medical History: Diabetes Type II Musculoskeletal History: Fractures GI Medical History: GERD History: Renal Disease Psycho-Social History: Anxiety, Depression Female Reproductive Disorders: No Pertinent History Other Medical History: Previous left leg fx many years ago,rt wrist fx with cast. left lower lobe lung cancer. chemo - Past Surgical History Past Surgical History: Yes Neuro Surgical History: No Pertinent History Cardiac: Cardiac Catheterization, Cardiac Stent Respiratory: Lobectomy Gastrointestinal: Cholecystectomy Genitourinary: No Pertinent History Musculoskeletal: Other Female Surgical History: Tubal Ligation Other Surgical History: BUNONECTOMY. BACK SURGERY X2, right upper chest port placement. LL lung lobectomy Significant Family History: heart disease, diabetes, hypertension - Social History Smoking Status: Current every day smoker How long have you smoked: 30+ years Drug Use: none - Social Determinants of Health Will the patient participate in the screening: Declined to provide - Nursing Vital Signs Nursing Vital Signs: Initial Vital Signs Temperature 97.1 F 06/24/24 18:31 Pulse Rate 112 H 06/24/24 18:31 Respiratory Rate 16 06/24/24 18:31 Blood Pressure 112/72 06/24/24 18:31 O2 Sat by Pulse Oximetry 96 06/24/24 18:31 Pain Scale Pain Intensity 0 - Physical Exam General Appearance: no apparent distress Eye Exam: PERRL/EOMI Ears, Nose, Throat Exam: normal ENT inspection Neck Exam: normal inspection Respiratory Exam: rhonchi, wheezing (coarse bs noted bilaterally ) Cardiovascular Exam: regular rate/rhythm Gastrointestinal/Abdomen Exam: soft, normal bowel sounds SpO2: 95 Ordered Tests: Active Orders 24 hr Category Date Time Status CHEST WITH CONTRAST [CT] Stat Exams 06/24/24 19:37 Taken CBC W DIFF Stat Lab 06/24/24 19:50 Completed CMP Stat Lab 06/24/24 19:50 Completed Lactic Acid Stat Lab 06/24/24 19:57 Completed POCT GLUCOSE Stat Lab 06/24/24 21:20 Completed PROCALCITONIN Stat Lab 06/24/24 19:50 Completed Respiratory Therapy Assessment DAILY RT 06/24/24 19:50 Active Medication Summary Generic Name Dose Route Start Last Admin Trade Name Freq PRN Reason Stop Dose Admin Sodium Chloride 1,000 mls @ 100 mls/hr 06/24/24 19:45 06/24/24 20:07 Sodium Chloride 0.9% 1000 Ml IV 07/24/24 19:44 100 mls/hr .Q10H NISSA Administration Discontinued Medications Generic Name Dose Route Start Last Admin Trade Name Freq PRN Reason Stop Dose Admin Acetaminophen 975 mg 06/24/24 19:36 06/24/24 20:06 Acetaminophen 325 Mg Tablet PO 06/24/24 19:37 975 mg STAT ONE Administration Acetaminophen Confirm 06/24/24 20:02 Acetaminophen 325 Mg Tablet Administered 06/24/24 20:03 Dose 975 mg .ROUTE .STK-MED ONE Albuterol/Ipratropium 3 ml 06/24/24 19:36 06/24/24 19:50 Ipratropium/Albuterol Sulfate 3 Ml Ampul.Neb IH 06/24/24 19:37 3 ml STAT ONE Administration Albuterol/Ipratropium Confirm 06/24/24 19:48 Ipratropium/Albuterol Sulfate 3 Ml Ampul.Neb Administered 06/24/24 19:49 Dose 3 ml IH .STK-MED ONE Methylprednisolone Sodium 0 mg 06/24/24 19:36 06/24/24 20:10 Succinate 125 mg/ Sterile IV 06/24/24 19:37 125 mg Water 2 ml STAT ONE Administration Guaifenesin/Dextromethorphan Confirm 06/24/24 21:32 Guaifenesin/D-Methorphan Hb 118 Ml Syrup Administered 06/24/24 21:33 Dose 118 ml .ROUTE .STK-MED ONE Guaifenesin/Dextromethorphan 5 ml 06/24/24 21:38 06/24/24 21:39 Guaifenesin/D-Methorphan Hb 118 Ml Syrup PO 06/24/24 21:39 5 ml STAT ONE Administration Azithromycin 500 mg in 250 mls @ 250 mls/hr 06/24/24 19:36 06/24/24 21:15 Zithromax 500 Mg/ 250 Ml Nacl Premix IV 06/24/24 20:35 Infused STAT STA Infusion Azithromycin Confirm 06/24/24 20:02 Zithromax 500 Mg/ 250 Ml Nacl Premix Administered 06/24/24 20:03 Dose 500 mg in 250 mls @ ud IV .STK-MED ONE Methylprednisolone Sodium Succinate Confirm 06/24/24 20:02 Methylprednis Sod Succ 125 Mg/2 Ml Vial Administered 06/24/24 20:03 Dose 125 mg .ROUTE .STK-MED ONE Sterile Water Confirm 06/24/24 20:02 Water For Injection,Sterile 10 Ml Vial Administered 06/24/24 20:03 Dose 10 ml IJ .STK-MED ONE Lab/Rad Data: Laboratory Result Diagrams 06/24/24 19:50 06/24/24 19:50 Laboratory Results 06/24/24 06/24/24 06/24/24 Range/Units 21:20 19:57 19:50 WBC (3.98-10.04) x10^3/uL RBC (3.93-5.22) x10^6/uL Hgb (11.2-15.7) g/dL Hct (34.1-44.9) % MCV (79.4-94.8) fL MCH (25.6-32.2) pg MCHC (32.2-35.5) g/dL RDW (11.7-14.4) % Plt Count (182-369) x10^3/uL MPV (9.4-12.3) fL Gran % (34.0-71.1) % Immature Gran % (Auto) (0.001-0.429) % Nucleat RBC Rel Count (0.00-0.2) % Eos # (Auto) (0.04-0.36) x10^3/uL Immature Gran # (Auto) (0.001-0.031) x10^3u/L Absolute Lymphs (auto) (1.18-3.74) x10^3/uL Absolute Monos (auto) (0.24-0.86) x10^3/uL Absolute Nucleated RBC (0.00-0.012) x10^3u/L Lymphocytes % (19.3-51.7) % Monocytes % (4.7-12.5) % Eosinophils % (0.7-5.8) % Basophils % (0.1-1.2) % Absolute Granulocytes (1.56-6.13) x10^3/uL Basophils # (0.01-0.08) x10^3/uL Sodium (135-145) mmol/L Potassium (3.5-5.1) mmol/L Chloride (98-107) mmol/L Carbon Dioxide (22-30) mmol/L Anion Gap (5-15) MEQ/L BUN (7-17) mg/dL Creatinine (0.52-1.04) mg/dL Estimated GFR ML/MIN Glucose (74-106) mg/dL POC Glucometer 207 H (74 to 106) mg/dL Lactic Acid 0.8 (0.4-2.0) Calcium (8.4-10.2) mg/dL Total Bilirubin (0.2-1.3) mg/dL AST (14-36) U/L ALT (0-35) U/L Alkaline Phosphatase (38-126) U/L Serum Total Protein (6.3-8.2) g/dL Albumin (3.5-5.0) g/dL Procalcitonin 0.118 H (0.030-0.080) ng/mL Influenza Type A Ag (NEGATIVE) Influenza Type B Ag (NEGATIVE) RSV (PCR) (NEGATIVE) SARS-CoV-2 (PCR) (NEGATIVE) Group A Strep Antibody (NEGATIVE) 06/24/24 06/24/24 06/24/24 Range/Units 19:50 19:50 19:48 WBC 12.0 H (3.98-10.04) x10^3/uL RBC 3.87 L (3.93-5.22) x10^6/uL Hgb 12.0 (11.2-15.7) g/dL Hct 35.9 (34.1-44.9) % MCV 92.8 (79.4-94.8) fL MCH 31.0 (25.6-32.2) pg MCHC 33.4 (32.2-35.5) g/dL RDW 15.6 H (11.7-14.4) % Plt Count 321 (182-369) x10^3/uL MPV 8.9 L (9.4-12.3) fL Gran % 73.7 H (34.0-71.1) % Immature Gran % (Auto) 0.3 (0.001-0.429) % Nucleat RBC Rel Count 0.0 (0.00-0.2) % Eos # (Auto) 0.39 H (0.04-0.36) x10^3/uL Immature Gran # (Auto) 0.04 H (0.001-0.031) x10^3u/L Absolute Lymphs (auto) 1.87 (1.18-3.74) x10^3/uL Absolute Monos (auto) 0.80 (0.24-0.86) x10^3/uL Absolute Nucleated RBC 0.00 (0.00-0.012) x10^3u/L Lymphocytes % 15.6 L (19.3-51.7) % Monocytes % 6.7 (4.7-12.5) % Eosinophils % 3.3 (0.7-5.8) % Basophils % 0.4 (0.1-1.2) % Absolute Granulocytes 8.84 H (1.56-6.13) x10^3/uL Basophils # 0.05 (0.01-0.08) x10^3/uL Sodium 136 (135-145) mmol/L Potassium 3.7 (3.5-5.1) mmol/L Chloride 104 (98-107) mmol/L Carbon Dioxide 24 (22-30) mmol/L Anion Gap 12.0 (5-15) MEQ/L BUN 28 H (7-17) mg/dL Creatinine 0.97 (0.52-1.04) mg/dL Estimated GFR 66.1 ML/MIN Glucose 181 H (74-106) mg/dL POC Glucometer (74 to 106) mg/dL Lactic Acid (0.4-2.0) Calcium 9.0 (8.4-10.2) mg/dL Total Bilirubin 0.50 (0.2-1.3) mg/dL AST 27 (14-36) U/L ALT 19 (0-35) U/L Alkaline Phosphatase 145 H (38-126) U/L Serum Total Protein 6.6 (6.3-8.2) g/dL Albumin 3.4 L (3.5-5.0) g/dL Procalcitonin (0.030-0.080) ng/mL Influenza Type A Ag POSITIVE A (NEGATIVE) Influenza Type B Ag NEGATIVE (NEGATIVE) RSV (PCR) NEGATIVE (NEGATIVE) SARS-CoV-2 (PCR) NEGATIVE (NEGATIVE) Group A Strep Antibody (NEGATIVE) 06/24/24 Range/Units 19:48 WBC (3.98-10.04) x10^3/uL RBC (3.93-5.22) x10^6/uL Hgb (11.2-15.7) g/dL Hct (34.1-44.9) % MCV (79.4-94.8) fL MCH (25.6-32.2) pg MCHC (32.2-35.5) g/dL RDW (11.7-14.4) % Plt Count (182-369) x10^3/uL MPV (9.4-12.3) fL Gran % (34.0-71.1) % Immature Gran % (Auto) (0.001-0.429) % Nucleat RBC Rel Count (0.00-0.2) % Eos # (Auto) (0.04-0.36) x10^3/uL Immature Gran # (Auto) (0.001-0.031) x10^3u/L Absolute Lymphs (auto) (1.18-3.74) x10^3/uL Absolute Monos (auto) (0.24-0.86) x10^3/uL Absolute Nucleated RBC (0.00-0.012) x10^3u/L Lymphocytes % (19.3-51.7) % Monocytes % (4.7-12.5) % Eosinophils % (0.7-5.8) % Basophils % (0.1-1.2) % Absolute Granulocytes (1.56-6.13) x10^3/uL Basophils # (0.01-0.08) x10^3/uL Sodium (135-145) mmol/L Potassium (3.5-5.1) mmol/L Chloride (98-107) mmol/L Carbon Dioxide (22-30) mmol/L Anion Gap (5-15) MEQ/L BUN (7-17) mg/dL Creatinine (0.52-1.04) mg/dL Estimated GFR ML/MIN Glucose (74-106) mg/dL POC Glucometer (74 to 106) mg/dL Lactic Acid (0.4-2.0) Calcium (8.4-10.2) mg/dL Total Bilirubin (0.2-1.3) mg/dL AST (14-36) U/L ALT (0-35) U/L Alkaline Phosphatase (38-126) U/L Serum Total Protein (6.3-8.2) g/dL Albumin (3.5-5.0) g/dL Procalcitonin (0.030-0.080) ng/mL Influenza Type A Ag (NEGATIVE) Influenza Type B Ag (NEGATIVE) RSV (PCR) (NEGATIVE) SARS-CoV-2 (PCR) (NEGATIVE) Group A Strep Antibody NOT DETECTED (NEGATIVE) - Progress Progress Note: Weakness patient was seen and evaluated for her symptoms labs were obtained chest CT was ordered she was given IV fluids and IV antibiotics she was informed of the possibility of admission she is agreeable 06/24/24 19:40 Patient was updated with the results of the lab work and the CT scan which reveals no change compared to 01/21/2024 emphysema in the left lower lobe status post lobectomy with postsurgical changes and mild prominence no new acute findings. Case was discussed with the hospitalist he was updated with the patient's lab results and CT results he will admit the patient.-Patient and her do not feel comfortable going home and would prefer to be admitted 06/24/24 22:11 Medical Desision Making - Discussion of managment Care discussed with:: hospitalist Agreed on:: place in obs Will see patient: in hospital - Departure Departure Disposition: Observation Clinical Impression: Cough, Influenza A, Dehydration Condition: Stable Critical Care Time: No Referrals: LYUDMILA ARIAS MD [Primary Care Provider] - Follow up/PCP as directed
[2024-06-24] MEDS ORDERED: DUONEB 0.5-3 MG/3 ml Neb IH ONE (19:48)
[2024-06-24] MEDS: DUONEB 0.5-3 MG/3 ml Neb IH ONE (19:50)
[2024-06-24 19:54] LABS: Absolute Neutrophil Ct (ANC) 8.84 x10^3/uL (1.56-6.13); BASOPHIL % 0.4 % (0.1-1.2); Basophil (Absolute #) 0.05 x10^3/uL (0.01-0.08); Eosinophil % 3.3 % (0.7-5.8); Eosinophil (Absolute #) 0.39 x10^3/uL (0.04-0.36); Hematocrit 35.9 % (34.1-44.9); IMMATURE GRAN # 0.04 x10^3u/L (0.001-0.031); IMMATURE GRAN % 0.3 % (0.001-0.429); Lymphocyte (Absolute #) 1.87 x10^3/uL (1.18-3.74); Lymphocytes % 15.6 % (19.3-51.7); Mean Cell Volume 92.8 fL (79.4-94.8); Mean Corpuscular Hgb Concent. 33.4 g/dL (32.2-35.5); Mean Platelet Volume 8.9 fL (9.4-12.3); Monocytes % 6.7 % (4.7-12.5); Neutrophil % 73.7 % (34.0-71.1); Platelet Count 321 x10^3/uL (182-369); Red Blood Count 3.87 x10^6/uL (3.93-5.22); Red Cell Distribution Width 15.6 % (11.7-14.4)
[2024-06-24] MEDS ORDERED: TYLENOL 325 MG ONE (20:02)
[2024-06-24] MEDS ORDERED: Sterile H2O 10 ml IJ ONE (20:02)
[2024-06-24] MEDS ORDERED: solu-MEDROL ONE (20:02)
[2024-06-24] MEDS ORDERED: Zithromax 500 MG/ 250 ML NaCl Premix 500 MG/250 ML IVPB IV ONE (20:02)
[2024-06-24] MEDS: TYLENOL 325 MG PO ONE (20:06)
[2024-06-24 20:07] LABS: ALBUMIN 3.4 g/dL (3.5-5.0); BILIRUBIN,TOTAL 0.5 mg/dL (0.2-1.3); Creatinine 1 0.97 mg/dL (0.52-1.04); EST GLOMERULAR FILTRATION RATE 66.1 ML/MIN; Potassium 3.7 mmol/L (3.5-5.1); Total Protein 6.6 g/dL (6.3-8.2)
[2024-06-24] MEDS: Sodium Chloride 0.9% 1000 ML 1,000 ML IV SCH (20:07)
[2024-06-24] MEDS: solu-MEDROL 125 MG, Sterile H2O 10 ml 2 ML IV ONE (20:10)
[2024-06-24] MEDS: Zithromax 500 MG/ 250 ML NaCl Premix 500 MG/250 ML IVPB IV STA (20:13)
[2024-06-24 20:30] LABS: INFLUENZA B NEGATIVE (NEGATIVE); RESPIRATORY SYNCTIAL VIRUS NEGATIVE (NEGATIVE); SARS-CoV-2 Xpert Express NEGATIVE (NEGATIVE)
[2024-06-24 20:33] LABS: INFLUENZA A POSITIVE (NEGATIVE)
[2024-06-24] MEDS ORDERED: Robitussin-Dm Syrup ONE (21:32)
[2024-06-24] MEDS: Robitussin-Dm Syrup PO ONE (21:39)
[2024-06-24] MEDS ORDERED: PHENERGAN 25 MG PO PRN (23:33)
[2024-06-24] MEDS ORDERED: PROCHLORPERAZINE MALEATE 10 MG PO PRN (23:33)
[2024-06-24] MEDS ORDERED: TYLENOL 325 MG PO PRN (23:35)
[2024-06-24] MEDS ORDERED: Zofran 4 MG/2 ML VIAL IV PRN (23:35)
[2024-06-24] MEDS ORDERED: DELTASONE 10 MG PO SCH (23:45)
--- NOTE | 2024-06-25 00:02 | PCM.HP ---
History of Present Illness - Chief Complaint Chief Complaint: copd Date: 06/24/24 History of Present Illness: is a 63 year old female with a history of lung cancer (s/p LLL resection, chemotherapy, and immunotherapy, last treated in 03/2024 when the patient had a negative PET scan and no disease) and recent pneumonia (treated as outpatient with Rocephin and azithromycin) who now presents to the hospital with congestion, cough, dyspnea, and chills. The patient does not report chest pain or hemoptysis. Her symptoms were persistent so she presented to the ED for further evaluation. In the ED, the patient was found to have no infiltrate on CT chest but was influenza positive. The patient's had indicated that the patient was generally weak and could not safely ambulate at home. - Review of Systems Constitutional: Chills Eyes: No Symptoms Ears, Nose, & Throat: Nose Congestion Respiratory: Cough, Short Of Breath Cardiac: No Symptoms Abdominal/Gastrointestinal: No Symptoms Genitourinary Symptoms: No Symptoms Musculoskeletal: No Symptoms Skin: No Symptoms Neurological: No Symptoms Psychological: No Symptoms Endocrine: No Symptoms Hematologic/Lymphatic: No Symptoms Immunological/Allergic: No Symptoms All Other Systems: Reviewed and Negative Medications & Allergies Home Medications: Home Medication List Promethazine HCl 25 mg [Phenergan 25 mg] 25 mg PO QID PRN 07/17/21 [History Confirmed 06/24/24] Prochlorperazine Maleate [Compazine] 10 mg PO BIDPRN PRN 08/30/22 [History Confirmed 06/24/24] Insulin Aspart [NovoLOG Insulin] 0 unit SQ AC PRN 10/08/22 [History Confirmed 06/24/24] Insulin Glargine,Hum.rec.anlog [[place]ard Solostar] 11 unit SQ QHS 11/28/22 [History Confirmed 06/24/24] Gabapentin [Neurontin ] 300 mg PO BID 01/01/23 [History Confirmed 06/24/24] Mirtazapine 30 mg [Remeron 30 mg] 30 mg PO HS 01/01/23 [History Confirmed 06/24/24] ALPRAZolam 1 MG [Xanax 1 mg] 1 mg PO BID 01/01/24 [History Confirmed 06/24/24] Diphenoxylate HCl/Atropine [Diphenoxylate-Atrop 2.5-0.025] 1 tab PO QIDPRN PRN 01/01/24 [History Confirmed 06/24/24] Ergocalciferol (Vitamin D2) [Vitamin D2] 1,250 mcg PO WEEKLY 01/01/24 [History Confirmed 06/24/24] Prednisone 10 mg [Deltasone 10 mg] 10 mg PO UD 01/01/24 [History Confirmed 06/24/24] Tramadol HCl 50 mg [Ultram 50 mg] 50 mg Q8H PRN PRN 06/24/24 [History Confirmed 06/24/24] Allergies/Adverse Reactions: Allergies Allergy/AdvReac Type Severity Reaction Status Date / Time orphenadrine citrate Allergy Intermediate Verified 06/24/24 18:35 [From Norflex] adhesive tape Allergy Verified 06/24/24 18:35 levofloxacin [From Levaquin] AdvReac Mild Nausea and Verified 06/24/24 18:35 Vomiting - Past Medical History Past Medical History: Yes Neurological History: No Pertinent History ENT History: Cataracts Cardiac History: Coronary Artery Disease, High Cholesterol, Hypertension Respiratory History: COPD, Lung Cancer Endocrine Medical History: Diabetes Type II Musculoskelatal History: Fractures GI Medical History: GERD History: Renal Disease Pyscho-Social History: Anxiety, Depression Reproductive Disorders: No Pertinent History Comment: Previous left leg fx many years ago,rt wrist fx with cast. left lower lobe lung cancer. chemo - Past Surgical History Past Surgical History: Yes Neuro Surgical History: No Pertinent History Cardiac History: Cardiac Catheterization, Cardiac Stent Respiratory Surgery: Lobectomy GI Surgical History: Cholecystectomy Genitourinary Surgical Hx: No Pertinent History Musculskeletal Surgical Hx: Other Female Surgical History: Tubal Ligation Other Surgical History: BUNONECTOMY. BACK SURGERY X2, right upper chest port placement. LL lung lobectomy Significant Family History: heart disease, diabetes, hypertension - Social History Smoking Status: Current every day smoker How long have you smoked: 30+ years Exposure to second hand smoke: Yes Alcohol: None Drug Use: none - Social Determinants of Health Will the patient participate in the screening: Declined to provide Do you worry about a steady place to live?: No In the past 12 months,have you had to go without utilities?: No Have you or anyone in your house had to go without enough: No Transportation Issues: No Has anyone in your support network made you feel unsafe?: No Does the patient want assistance with any of the above?: No - Physical Exam Vital Signs: Vital Signs - 24 hr Temp Pulse Resp BP BP Pulse Ox 06/24/24 22:13 95 06/24/24 22:00 86 106/60 92 L 06/24/24 21:30 80 121/61 91 L 06/24/24 21:00 96 H 125/58 94 L 06/24/24 20:56 125/61 94 L 06/24/24 20:00 145/63 97 06/24/24 19:56 94 H 16 96 06/24/24 19:30 92 H 18 143/74 96 06/24/24 19:00 133/69 94 L 06/24/24 18:31 97.1 F 112 H 16 112/72 112/72 95 General Appearance: no apparent distress, alert Neurologic Exam: alert, oriented x 3, cooperative, cooker process 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 tested, normal mood/affect, nml cerebellar function Eye Exam: PERRL/EOMI, eyes nml inspection Ears, Nose, Throat Exam: normal ENT inspection Neck Exam: normal inspection, non-tender, supple, full range of motion Respiratory Exam: normal breath sounds, lungs clear, airway intact Cardiovascular Exam: regular rate/rhythm, normal heart sounds Gastrointestinal/Abdomen Exam: soft, normal bowel sounds Back Exam: normal range of motion Extremity Exam: normal inspection, normal range of motion Skin Exam: normal color Results - Labs Lab/Micro Results: Lab Results-Last 24 Hours 06/24/24 06/24/24 06/24/24 Range/Units 19:48 19:48 19:50 WBC 12.0 H (3.98-10.04) x10^3/uL RBC 3.87 L (3.93-5.22) x10^6/uL Hgb 12.0 (11.2-15.7) g/dL Hct 35.9 (34.1-44.9) % MCV 92.8 (79.4-94.8) fL MCH 31.0 (25.6-32.2) pg MCHC 33.4 (32.2-35.5) g/dL RDW 15.6 H (11.7-14.4) % Plt Count 321 (182-369) x10^3/uL MPV 8.9 L (9.4-12.3) fL Gran % 73.7 H (34.0-71.1) % Immature Gran % (Auto) 0.3 (0.001-0.429) % Nucleat RBC Rel Count 0.0 (0.00-0.2) % Eos # (Auto) 0.39 H (0.04-0.36) x10^3/uL Immature Gran # (Auto) 0.04 H (0.001-0.031) x10^3u/L Absolute Lymphs (auto) 1.87 (1.18-3.74) x10^3/uL Absolute Monos (auto) 0.80 (0.24-0.86) x10^3/uL Absolute Nucleated RBC 0.00 (0.00-0.012) x10^3u/L Lymphocytes % 15.6 L (19.3-51.7) % Monocytes % 6.7 (4.7-12.5) % Eosinophils % 3.3 (0.7-5.8) % Basophils % 0.4 (0.1-1.2) % Absolute Granulocytes 8.84 H (1.56-6.13) x10^3/uL Basophils # 0.05 (0.01-0.08) x10^3/uL Sodium (135-145) mmol/L Potassium (3.5-5.1) mmol/L Chloride (98-107) mmol/L Carbon Dioxide (22-30) mmol/L Anion Gap (5-15) MEQ/L BUN (7-17) mg/dL Creatinine (0.52-1.04) mg/dL Estimated GFR ML/MIN Glucose (74-106) mg/dL POC Glucometer (74 to 106) mg/dL Lactic Acid (0.4-2.0) Calcium (8.4-10.2) mg/dL Total Bilirubin (0.2-1.3) mg/dL AST (14-36) U/L ALT (0-35) U/L Alkaline Phosphatase (38-126) U/L Serum Total Protein (6.3-8.2) g/dL Albumin (3.5-5.0) g/dL Procalcitonin (0.030-0.080) ng/mL Influenza Type A Ag POSITIVE A (NEGATIVE) Influenza Type B Ag NEGATIVE (NEGATIVE) RSV (PCR) NEGATIVE (NEGATIVE) SARS-CoV-2 (PCR) NEGATIVE (NEGATIVE) Group A Strep Antibody NOT DETECTED (NEGATIVE) 06/24/24 06/24/24 06/24/24 Range/Units 19:50 19:50 19:57 WBC (3.98-10.04) x10^3/uL RBC (3.93-5.22) x10^6/uL Hgb (11.2-15.7) g/dL Hct (34.1-44.9) % MCV (79.4-94.8) fL MCH (25.6-32.2) pg MCHC (32.2-35.5) g/dL RDW (11.7-14.4) % Plt Count (182-369) x10^3/uL MPV (9.4-12.3) fL Gran % (34.0-71.1) % Immature Gran % (Auto) (0.001-0.429) % Nucleat RBC Rel Count (0.00-0.2) % Eos # (Auto) (0.04-0.36) x10^3/uL Immature Gran # (Auto) (0.001-0.031) x10^3u/L Absolute Lymphs (auto) (1.18-3.74) x10^3/uL Absolute Monos (auto) (0.24-0.86) x10^3/uL Absolute Nucleated RBC (0.00-0.012) x10^3u/L Lymphocytes % (19.3-51.7) % Monocytes % (4.7-12.5) % Eosinophils % (0.7-5.8) % Basophils % (0.1-1.2) % Absolute Granulocytes (1.56-6.13) x10^3/uL Basophils # (0.01-0.08) x10^3/uL Sodium 136 (135-145) mmol/L Potassium 3.7 (3.5-5.1) mmol/L Chloride 104 (98-107) mmol/L Carbon Dioxide 24 (22-30) mmol/L Anion Gap 12.0 (5-15) MEQ/L BUN 28 H (7-17) mg/dL Creatinine 0.97 (0.52-1.04) mg/dL Estimated GFR 66.1 ML/MIN Glucose 181 H (74-106) mg/dL POC Glucometer (74 to 106) mg/dL Lactic Acid 0.8 (0.4-2.0) Calcium 9.0 (8.4-10.2) mg/dL Total Bilirubin 0.50 (0.2-1.3) mg/dL AST 27 (14-36) U/L ALT 19 (0-35) U/L Alkaline Phosphatase 145 H (38-126) U/L Serum Total Protein 6.6 (6.3-8.2) g/dL Albumin 3.4 L (3.5-5.0) g/dL Procalcitonin 0.118 H (0.030-0.080) ng/mL Influenza Type A Ag (NEGATIVE) Influenza Type B Ag (NEGATIVE) RSV (PCR) (NEGATIVE) SARS-CoV-2 (PCR) (NEGATIVE) Group A Strep Antibody (NEGATIVE) 06/24/24 Range/Units 21:20 WBC (3.98-10.04) x10^3/uL RBC (3.93-5.22) x10^6/uL Hgb (11.2-15.7) g/dL Hct (34.1-44.9) % MCV (79.4-94.8) fL MCH (25.6-32.2) pg MCHC (32.2-35.5) g/dL RDW (11.7-14.4) % Plt Count (182-369) x10^3/uL MPV (9.4-12.3) fL Gran % (34.0-71.1) % Immature Gran % (Auto) (0.001-0.429) % Nucleat RBC Rel Count (0.00-0.2) % Eos # (Auto) (0.04-0.36) x10^3/uL Immature Gran # (Auto) (0.001-0.031) x10^3u/L Absolute Lymphs (auto) (1.18-3.74) x10^3/uL Absolute Monos (auto) (0.24-0.86) x10^3/uL Absolute Nucleated RBC (0.00-0.012) x10^3u/L Lymphocytes % (19.3-51.7) % Monocytes % (4.7-12.5) % Eosinophils % (0.7-5.8) % Basophils % (0.1-1.2) % Absolute Granulocytes (1.56-6.13) x10^3/uL Basophils # (0.01-0.08) x10^3/uL Sodium (135-145) mmol/L Potassium (3.5-5.1) mmol/L Chloride (98-107) mmol/L Carbon Dioxide (22-30) mmol/L Anion Gap (5-15) MEQ/L BUN (7-17) mg/dL Creatinine (0.52-1.04) mg/dL Estimated GFR ML/MIN Glucose (74-106) mg/dL POC Glucometer 207 H (74 to 106) mg/dL Lactic Acid (0.4-2.0) Calcium (8.4-10.2) mg/dL Total Bilirubin (0.2-1.3) mg/dL AST (14-36) U/L ALT (0-35) U/L Alkaline Phosphatase (38-126) U/L Serum Total Protein (6.3-8.2) g/dL Albumin (3.5-5.0) g/dL Procalcitonin (0.030-0.080) ng/mL Influenza Type A Ag (NEGATIVE) Influenza Type B Ag (NEGATIVE) RSV (PCR) (NEGATIVE) SARS-CoV-2 (PCR) (NEGATIVE) Group A Strep Antibody (NEGATIVE) Accuchecks Date 06/24/24 Time 21:21 - Radiology Impressions Radiology Exams & Impressions: Radiology Procedures Category Date Time Status CHEST WITH CONTRAST [CT] Stat Exams 06/24/24 19:37 Taken - Other Procedures and Tests Respiratory Therapy 06/24/24 19:50 Respiratory Therapy Assessment DAILY Assessment/Plan (1) Influenza A Current Visit: Yes Status: Acute Assessment & Plan: Tamiflu. Isolation. Code(s): J10.1 - FLU DUE TO OTH IDENT INFLUENZA VIRUS W OTH RESP MANIFEST (2) Acute bronchitis Current Visit: Yes Status: Acute Assessment & Plan: Will continue azithromycin. Nebs prn. Continue steroids (po prednisone). No wheezing on auscultation. No hypoxia. Mucinex for cough. Leukcytosis is noted and mild, and the patient is on steroids which could contribute. Code(s): J20.9 - ACUTE BRONCHITIS, UNSPECIFIED (3) Dehydration Current Visit: No Status: Resolved Assessment & Plan: Received IV fluids. Code(s): E86.0 - DEHYDRATION (4) Weakness Current Visit: No Status: Acute Assessment & Plan: PT/OT eval. Code(s): R53.1 - WEAKNESS (5) Type 2 diabetes mellitus Current Visit: No Status: Acute Assessment & Plan: Monitor sugars on ISS. Telemedicine Encounter - Telemedicine Encounter Telemedicine Encounter: "The entirety of this encounter was performed via Telemedicine" This visit was performed using real-time audio and video connection between my location and thepatients locationwith the assistance of a surrogateat the patients location. Written or verbal consent was obtained from the patient/guardian to perform this [facility]. Any patient questions regarding the telemedicine interaction were answered.
[2024-06-25] MEDS ORDERED: REMERON 30 MG ONE (00:17)
[2024-06-25] MEDS: DUONEB 0.5-3 MG/3 ml Neb IH SCH (00:17)
[2024-06-25] MEDS: NEURONTIN PO SCH ×2 (00:23→09:22)
[2024-06-25] MEDS: Robitussin-Dm Syrup PO PRN (00:24)
[2024-06-25] MEDS: REMERON 30 MG PO SCH (00:25)
[2024-06-25] MEDS: Lantus Insulin SQ SCH (00:39)
[2024-06-25 05:11] LABS: Absolute Neutrophil Ct (ANC) 8.88 x10^3/uL (1.56-6.13); BASOPHIL % 0.2 % (0.1-1.2); Basophil (Absolute #) 0.02 x10^3/uL (0.01-0.08); Eosinophil % 0.3 % (0.7-5.8); Eosinophil (Absolute #) 0.03 x10^3/uL (0.04-0.36); Hematocrit 35.6 % (34.1-44.9); Hemoglobin 11.7 g/dL (11.2-15.7); IMMATURE GRAN # 0.04 x10^3u/L (0.001-0.031); IMMATURE GRAN % 0.4 % (0.001-0.429); Lymphocyte (Absolute #) 0.56 x10^3/uL (1.18-3.74); Lymphocytes % 5.9 % (19.3-51.7); Mean Corpuscular Hemoglobin 30.5 pg (25.6-32.2); Mean Corpuscular Hgb Concent. 32.9 g/dL (32.2-35.5); Mean Platelet Volume 9.3 fL (9.4-12.3); Monocyte (Absolute #) 0.04 x10^3/uL (0.24-0.86); Monocytes % 0.4 % (4.7-12.5); Neutrophil % 92.8 % (34.0-71.1); Platelet Count 335 x10^3/uL (182-369); Red Blood Count 3.83 x10^6/uL (3.93-5.22); Red Cell Distribution Width 15.7 % (11.7-14.4); White Blood Count 9.6 x10^3/uL (3.98-10.04)
[2024-06-25 05:34] LABS: ANION GAP 16.3 MEQ/L (5-15); Calcium 8.5 mg/dL (8.4-10.2); Creatinine 1 0.94 mg/dL (0.52-1.04); EST GLOMERULAR FILTRATION RATE 68.6 ML/MIN
[2024-06-25 06:14] LABS: Slide Review 1 YES
[2024-06-25 06:32] LABS: Potassium 4.7 mmol/L (3.5-5.1)
[2024-06-25] MEDS ORDERED: Compazine 5 MG PO PRN (07:21)
[2024-06-25] MEDS ORDERED: Cyanocobalamin B-12 1000 MCG/ML IJ SCH (08:00)
[2024-06-25] MEDS: Lomotil PO PRN (08:04)
[2024-06-25] MEDS: ULTRAM 50 MG PO PRN (08:04)
[2024-06-25] MEDS: HUMALOG SQ PRN (08:05)
[2024-06-25] MEDS ORDERED: MEDICATION INTERVENTION MC SCH ×2 (09:00)
--- NOTE | 2024-06-25 09:09 | XRAY ---
Indication: Cough. Short of breath. Pneumonia. Multiple contiguous axial images obtained through the chest using 100c Isovue 370 contrast. Comparison: January 01, 2024 Stable diffuse pulmonary emphysema, left upper lobectomy with post surgical changes, small posterior left base pleural effusion/thickening, and scattered pulmonary fibrosis/scarring bilaterally. No suspicious pulmonary mass, nodule, or infiltrate. Heart not enlarged again with right Port-A-Cath. Aorta again mildly arteriosclerotic without aneurysm/dissection. Stable small left hilar calcified nodes. No pathologic mediastinal/hilar lymphadenopathy. Bony thorax intact. Limited upper abdomen again demonstrates incompletely visualized biliary tree prominence. Impression: Again chronic findings including pulmonary emphysema, pulmonary fibrosis/scarring, left upper lobectomy with post surgical changes, left base pleural effusion/thickening, arteriosclerotic disease, prominent biliary tree, and old granulomatous disease. No new/acute findings.
[2024-06-25] MEDS: Mucinex 600MG ER Tabs PO SCH (09:20)
[2024-06-25] MEDS: Acidophilus TABLET PO SCH (09:20)
[2024-06-25] MEDS: XANAX 1 MG PO SCH (09:20)
[2024-06-25] MEDS: BUSPAR 5 MG PO SCH (09:21)
[2024-06-25] MEDS: ENOXAPARIN SODIUM SQ SCH (09:21)
[2024-06-25] MEDS: Cymbalta 30 MG Capsule PO SCH (09:21)
[2024-06-25] MEDS: Tamiflu 75MG Capsule PO ONE (09:24)
[2024-06-25] MEDS: Zithromax 500 MG/ 250 ML NaCl Premix 500 MG/250 ML IVPB IV SCH (09:25)
[2024-06-25] MEDS ORDERED: NON-FORMULARY ITEM (Budesonide [Budesonide Dr] 3 MG Capdr...Er) PO SCH (10:00)
--- NOTE | 2024-06-25 12:10 | PCM.DS ---
Discharge Summary Date of Admission: 06/24/24 22:58 Date of Discharge: 06/25/24 Admitting Physician: JER MEZA MD Primary Care Provider: JUANA,LYUDMILA Allergies Allergies orphenadrine citrate [From Norflex] Allergy (Intermediate, Verified 06/24/24 18:35) severe vomiting adhesive tape Allergy (Verified 06/24/24 18:35) levofloxacin [From Levaquin] Adverse Reaction (Mild, Verified 06/24/24 18:35) Nausea and Vomiting Hospital Summary - Hospital Course Hospital Course: 06/25/24 The patient is a 63-year-old female with a history of lung cancer, status post left lower lobe (LLL) resection, chemotherapy, and immunotherapy, with the last treatment in March 2024 following a negative PET scan and no evidence of disease. She also has a recent history of pneumonia, treated as an outpatient with Rocephin and azithromycin. She presented to the hospital on 06/24 with congestion, cough, dyspnea, and chills. The patient denies chest pain or he moptysis. Her symptoms persisted, leading her to seek further evaluation in the ED. A CT chest did not reveal any infiltrates, but the patient tested positive for influenza. The patients reported that she was generally weak and unable to safely ambulate at home. Upon evaluation today, the patient is stable and is considered safe for discharge with home health care (HHC) per PT eval. Despite discussions regarding her labs and the potential benefits of continued IV fluids, the patient is insistent on leaving today. A chest CT shows a small left lower lobe pleural effusion. The patient will continue with Azithromycin, Tamiflu, Mucinex, and Robitussin for her COPD exacerbation and Flu A. She is advised to follow up with her primary care provider (PCP) in two weeks for a repeat chest X-ray. - Vitals & Intake/Output Vital Signs: Vital Signs Temperature 97 F 06/25/24 00:00 Pulse Rate 95 H 06/25/24 08:00 Respiratory Rate 17 06/25/24 08:00 Blood Pressure 146/80 06/25/24 08:00 O2 Sat by Pulse Oximetry 94 L 06/25/24 08:00 Intake & Output: Intake & Output 06/23/24 06/24/24 06/25/24 06/26/24 11:59 11:59 11:59 11:59 Intake Total 730 Balance 730 Weight 51.5 kg - Lab Result Diagrams: 06/25/24 05:06 06/25/24 05:06 Lab Results-Last 24 Hrs: Lab Results-Last 24 Hours 06/24/24 06/24/24 06/24/24 Range/Units 19:48 19:48 19:50 WBC 12.0 H (3.98-10.04) x10^3/uL RBC 3.87 L (3.93-5.22) x10^6/uL Hgb 12.0 (11.2-15.7) g/dL Hct 35.9 (34.1-44.9) % MCV 92.8 (79.4-94.8) fL MCH 31.0 (25.6-32.2) pg MCHC 33.4 (32.2-35.5) g/dL RDW 15.6 H (11.7-14.4) % Plt Count 321 (182-369) x10^3/uL MPV 8.9 L (9.4-12.3) fL Gran % 73.7 H (34.0-71.1) % Immature Gran % (Auto) 0.3 (0.001-0.429) % Nucleat RBC Rel Count 0.0 (0.00-0.2) % Eos # (Auto) 0.39 H (0.04-0.36) x10^3/uL Immature Gran # (Auto) 0.04 H (0.001-0.031) x10^3u/L Absolute Lymphs (auto) 1.87 (1.18-3.74) x10^3/uL Absolute Monos (auto) 0.80 (0.24-0.86) x10^3/uL Absolute Nucleated RBC 0.00 (0.00-0.012) x10^3u/L Lymphocytes % 15.6 L (19.3-51.7) % Monocytes % 6.7 (4.7-12.5) % Eosinophils % 3.3 (0.7-5.8) % Basophils % 0.4 (0.1-1.2) % Absolute Granulocytes 8.84 H (1.56-6.13) x10^3/uL Basophils # 0.05 (0.01-0.08) x10^3/uL Sodium (135-145) mmol/L Potassium (3.5-5.1) mmol/L Chloride (98-107) mmol/L Carbon Dioxide (22-30) mmol/L Anion Gap (5-15) MEQ/L BUN (7-17) mg/dL Creatinine (0.52-1.04) mg/dL Estimated GFR ML/MIN Glucose (74-106) mg/dL POC Glucometer (74 to 106) mg/dL Lactic Acid (0.4-2.0) Calcium (8.4-10.2) mg/dL Total Bilirubin (0.2-1.3) mg/dL AST (14-36) U/L ALT (0-35) U/L Alkaline Phosphatase (38-126) U/L Serum Total Protein (6.3-8.2) g/dL Albumin (3.5-5.0) g/dL Procalcitonin (0.030-0.080) ng/mL Influenza Type A Ag POSITIVE A (NEGATIVE) Influenza Type B Ag NEGATIVE (NEGATIVE) RSV (PCR) NEGATIVE (NEGATIVE) SARS-CoV-2 (PCR) NEGATIVE (NEGATIVE) Group A Strep Antibody NOT DETECTED (NEGATIVE) Slides for Path Review 06/24/24 06/24/24 06/24/24 Range/Units 19:50 19:50 19:57 WBC (3.98-10.04) x10^3/uL RBC (3.93-5.22) x10^6/uL Hgb (11.2-15.7) g/dL Hct (34.1-44.9) % MCV (79.4-94.8) fL MCH (25.6-32.2) pg MCHC (32.2-35.5) g/dL RDW (11.7-14.4) % Plt Count (182-369) x10^3/uL MPV (9.4-12.3) fL Gran % (34.0-71.1) % Immature Gran % (Auto) (0.001-0.429) % Nucleat RBC Rel Count (0.00-0.2) % Eos # (Auto) (0.04-0.36) x10^3/uL Immature Gran # (Auto) (0.001-0.031) x10^3u/L Absolute Lymphs (auto) (1.18-3.74) x10^3/uL Absolute Monos (auto) (0.24-0.86) x10^3/uL Absolute Nucleated RBC (0.00-0.012) x10^3u/L Lymphocytes % (19.3-51.7) % Monocytes % (4.7-12.5) % Eosinophils % (0.7-5.8) % Basophils % (0.1-1.2) % Absolute Granulocytes (1.56-6.13) x10^3/uL Basophils # (0.01-0.08) x10^3/uL Sodium 136 (135-145) mmol/L Potassium 3.7 (3.5-5.1) mmol/L Chloride 104 (98-107) mmol/L Carbon Dioxide 24 (22-30) mmol/L Anion Gap 12.0 (5-15) MEQ/L BUN 28 H (7-17) mg/dL Creatinine 0.97 (0.52-1.04) mg/dL Estimated GFR 66.1 ML/MIN Glucose 181 H (74-106) mg/dL POC Glucometer (74 to 106) mg/dL Lactic Acid 0.8 (0.4-2.0) Calcium 9.0 (8.4-10.2) mg/dL Total Bilirubin 0.50 (0.2-1.3) mg/dL AST 27 (14-36) U/L ALT 19 (0-35) U/L Alkaline Phosphatase 145 H (38-126) U/L Serum Total Protein 6.6 (6.3-8.2) g/dL Albumin 3.4 L (3.5-5.0) g/dL Procalcitonin 0.118 H (0.030-0.080) ng/mL Influenza Type A Ag (NEGATIVE) Influenza Type B Ag (NEGATIVE) RSV (PCR) (NEGATIVE) SARS-CoV-2 (PCR) (NEGATIVE) Group A Strep Antibody (NEGATIVE) Slides for Path Review 06/24/24 06/25/24 06/25/24 Range/Units 21:20 00:01 05:06 WBC 9.6 (3.98-10.04) x10^3/uL RBC 3.83 L (3.93-5.22) x10^6/uL Hgb 11.7 (11.2-15.7) g/dL Hct 35.6 (34.1-44.9) % MCV 93.0 (79.4-94.8) fL MCH 30.5 (25.6-32.2) pg MCHC 32.9 (32.2-35.5) g/dL RDW 15.7 H (11.7-14.4) % Plt Count 335 (182-369) x10^3/uL MPV 9.3 L (9.4-12.3) fL Gran % 92.8 H (34.0-71.1) % Immature Gran % (Auto) 0.4 (0.001-0.429) % Nucleat RBC Rel Count 0.0 (0.00-0.2) % Eos # (Auto) 0.03 L (0.04-0.36) x10^3/uL Immature Gran # (Auto) 0.04 H (0.001-0.031) x10^3u/L Absolute Lymphs (auto) 0.56 L (1.18-3.74) x10^3/uL Absolute Monos (auto) 0.04 L (0.24-0.86) x10^3/uL Absolute Nucleated RBC 0.00 (0.00-0.012) x10^3u/L Lymphocytes % 5.9 L (19.3-51.7) % Monocytes % 0.4 L (4.7-12.5) % Eosinophils % 0.3 L (0.7-5.8) % Basophils % 0.2 (0.1-1.2) % Absolute Granulocytes 8.88 H (1.56-6.13) x10^3/uL Basophils # 0.02 (0.01-0.08) x10^3/uL Sodium (135-145) mmol/L Potassium (3.5-5.1) mmol/L Chloride (98-107) mmol/L Carbon Dioxide (22-30) mmol/L Anion Gap (5-15) MEQ/L BUN (7-17) mg/dL Creatinine (0.52-1.04) mg/dL Estimated GFR ML/MIN Glucose (74-106) mg/dL POC Glucometer 207 H 250 H (74 to 106) mg/dL Lactic Acid (0.4-2.0) Calcium (8.4-10.2) mg/dL Total Bilirubin (0.2-1.3) mg/dL AST (14-36) U/L ALT (0-35) U/L Alkaline Phosphatase (38-126) U/L Serum Total Protein (6.3-8.2) g/dL Albumin (3.5-5.0) g/dL Procalcitonin (0.030-0.080) ng/mL Influenza Type A Ag (NEGATIVE) Influenza Type B Ag (NEGATIVE) RSV (PCR) (NEGATIVE) SARS-CoV-2 (PCR) (NEGATIVE) Group A Strep Antibody (NEGATIVE) Slides for Path Review YES 06/25/24 06/25/24 06/25/24 Range/Units 05:06 07:37 11:45 WBC (3.98-10.04) x10^3/uL RBC (3.93-5.22) x10^6/uL Hgb (11.2-15.7) g/dL Hct (34.1-44.9) % MCV (79.4-94.8) fL MCH (25.6-32.2) pg MCHC (32.2-35.5) g/dL RDW (11.7-14.4) % Plt Count (182-369) x10^3/uL MPV (9.4-12.3) fL Gran % (34.0-71.1) % Immature Gran % (Auto) (0.001-0.429) % Nucleat RBC Rel Count (0.00-0.2) % Eos # (Auto) (0.04-0.36) x10^3/uL Immature Gran # (Auto) (0.001-0.031) x10^3u/L Absolute Lymphs (auto) (1.18-3.74) x10^3/uL Absolute Monos (auto) (0.24-0.86) x10^3/uL Absolute Nucleated RBC (0.00-0.012) x10^3u/L Lymphocytes % (19.3-51.7) % Monocytes % (4.7-12.5) % Eosinophils % (0.7-5.8) % Basophils % (0.1-1.2) % Absolute Granulocytes (1.56-6.13) x10^3/uL Basophils # (0.01-0.08) x10^3/uL Sodium 136 (135-145) mmol/L Potassium 4.7 D (3.5-5.1) mmol/L Chloride 104 (98-107) mmol/L Carbon Dioxide 20 L (22-30) mmol/L Anion Gap 16.3 H (5-15) MEQ/L BUN 29 H (7-17) mg/dL Creatinine 0.94 (0.52-1.04) mg/dL Estimated GFR 68.6 ML/MIN Glucose 385 H (74-106) mg/dL POC Glucometer 400 H 411 H (74 to 106) mg/dL Lactic Acid (0.4-2.0) Calcium 8.5 (8.4-10.2) mg/dL Total Bilirubin (0.2-1.3) mg/dL AST (14-36) U/L ALT (0-35) U/L Alkaline Phosphatase (38-126) U/L Serum Total Protein (6.3-8.2) g/dL Albumin (3.5-5.0) g/dL Procalcitonin (0.030-0.080) ng/mL Influenza Type A Ag (NEGATIVE) Influenza Type B Ag (NEGATIVE) RSV (PCR) (NEGATIVE) SARS-CoV-2 (PCR) (NEGATIVE) Group A Strep Antibody (NEGATIVE) Slides for Path Review Micro Results-Entire Visit: Accuchecks Date 06/25/24 Date 06/24/24 Time 07:40 Time 21:21 - Radiology Exams Ordered Rad Exams-Entire Visit: Radiology Procedures Category Date Time Status CHEST WITH CONTRAST [CT] Stat Exams 06/24/24 19:37 Completed - Procedures and Test Procedures and Tests throughout Hospitalization: Therapy Orders & Screens 06/24/24 19:50 Respiratory Therapy Assessment DAILY Comment: 06/24/24 23:35 PT Eval & Treat ( Order) ONCE Reason for Eval:: debility Diagnosis: copd OT Eval and Treat ( Order) ONCE Comment: Physician Instructions: Reason For Exam: Diagnosis: copd Discharge Exam General Appearance: no apparent distress, alert Neurologic Exam: alert, oriented x 3, cooperative, normal mood/affect, nml cerebellar function, sensation nml, motor weakness, No motor deficits Eye Exam: PERRL, EOMI, eyes nml inspection Ears, Nose, Throat Exam: normal ENT inspection, pharynx normal, moist mucous membranes Neck Exam: normal inspection, non-tender, supple, full range of motion Respiratory Exam: normal breath sounds, lungs clear, No respiratory distress Cardiovascular Exam: regular rate/rhythm, normal heart sounds Gastrointestinal/Abdomen Exam: soft, No tenderness, No mass Pelvic Exam: deferred Rectal Exam: deferred Back Exam: normal inspection, normal range of motion, No CVA tenderness, No vertebral tenderness Extremity Exam: normal inspection, normal range of motion Skin Exam: normal color, warm, dry Final Diagnosis/Problem List - Final Discharge Diagnosis/Problem (1) Influenza A Current Visit: Yes Status: Acute Assessment & Plan: -Tamiflu. - Isolation. - + test in ER Code(s): J10.1 - FLU DUE TO OTH IDENT INFLUENZA VIRUS W OTH RESP MANIFEST (2) Acute bronchitis Current Visit: Yes Status: Acute Assessment & Plan: - azithromycin. - Nebs PRN - Steroids - mucinex - Robitussion - RA 95% - Chest CT: Impression: Again chronic findings including pulmonary emphysema, pulmonary fibrosis/scarring, left upper lobectomy with post surgical changes, left base pleural effusion/thickening, arteriosclerotic disease, prominent biliary tree, and old granulomatous disease. No new/acute findings. - F/u with PCP for repeat CXR in 2 weeks Code(s): J20.9 - ACUTE BRONCHITIS, UNSPECIFIED (3) Dehydration Current Visit: Yes Status: Acute Assessment & Plan: - anion Gap 16.3 - CBC, CMP reviewed - IVF Code(s): E86.0 - DEHYDRATION (4) Type 2 diabetes mellitus Current Visit: No Status: Chronic Assessment & Plan: - A1C 9.15- on 06/06/24- uncontrolled type II DM - S/S insulin, acuchecks ac/hs - Lantus 9 units at HS (5) Weakness Current Visit: No Status: Acute Code(s): R53.1 - WEAKNESS - Discharge Discharge Date: 06/25/24 Disposition: Home, Self-Care Condition: Stable Prescriptions: New Oseltamivir Phosphate [Oseltamivir Phosphate 30 mg Cap] 30 mg PO BID 5 Days #10 cap Continue Promethazine HCl 25 mg [Phenergan 25 mg] 25 mg PO QID PRN PRN Reason: Nausea Prochlorperazine Maleate [Compazine] 10 mg PO BIDPRN PRN PRN Reason: Nausea Insulin Aspart [NovoLOG Insulin] 0 unit SQ AC PRN PRN Reason: Hyperglycemia Insulin Glargine,Hum.rec.anlog [Toujeo Solostar] 11 unit SQ QHS Mirtazapine 30 mg [Remeron 30 mg] 30 mg PO HS Gabapentin [Neurontin ] 300 mg PO BID Ergocalciferol (Vitamin D2) [Vitamin D2] 1,250 mcg PO WEEKLY Diphenoxylate HCl/Atropine [Diphenoxylate-Atrop 2.5-0.025] 1 tab PO QIDPRN PRN PRN Reason: Diarrhea ALPRAZolam 1 MG [Xanax 1 mg] 1 mg PO BID Tramadol HCl 50 mg [Ultram 50 mg] 50 mg Q8H PRN PRN PRN Reason: Pain Duloxetine HCl 30 mg [Cymbalta 30 MG Capsule] 30 mg PO BID Cyanocobalamin 1000 Mcg/ml [Cyanocobalamin B-12 1000 MCG/ML] 1,000 mcg IJ UD Buspirone HCl 5 mg [Buspar 5 mg] 10 mg PO BID Budesonide [Budesonide Dr] 3 mg PO DAILY Atorvastatin Calcium [Lipitor] 20 mg PO HS Instructions: Flu in adults - Discharge instructions Additional Instructions: [facility] HAS BEEN SET UP FOR YOU. THEY WILL CALL YOU TO ARRANGE A VISIT. THEIR PHONE NUMBER IS [phone] IF YOU NEED ANYTHING PRIOR TO THEIR VISIT Mucinex and Robitussion be be bought OTC. Follow up with: LYUDMILA ARIAS MD [Primary Care Provider] - 07/04/24 2:45 pm ([place] [facility])
[2024-06-25 13:45] VITALS: RESP 18
[2024-06-25 17:30] VITALS: BP 144/70; PULSE 94; TEMP 97.7; O2SAT 91
[2024-06-25] MEDS ORDERED: NON-FORMULARY ITEM (Insulin Glargine,Hum.Rec.Anlog [Toujeo Solostar] 300 UNIT/ML Insuln.Pe SQ SCH (22:00)
[2024-06-25] MEDS ORDERED: NON-FORMULARY ITEM (Atorvastatin Calcium [Lipitor] 20 MG Tablet) PO SCH (22:00)
[2024-06-25] MEDS ORDERED: OSELTAMIVIR PHOSPHATE 30 MG CAP PO SCH (22:00)
[2024-06-25] MEDS ORDERED: ZOCOR 20MG PO SCH (22:00)
[2024-06-30] MEDS ORDERED: VITAMIN D2 PO SCH (10:00)
== END 2024-06-25 18:20 | disposition home health service (06) ==
LOC: ED 18:22 → MED SURG 22:58
PROVIDERS: ADMIT Internal Medicine; ATTEND Internal Medicine
DX: J10.1 Influenza due to other identified influenza virus with other respiratory manifestations (principal); J20.9 Acute bronchitis, unspecified; E86.0 Dehydration; E11.9 Type 2 diabetes mellitus without complications; R53.1 Weakness; I25.10 Atherosclerotic heart disease of native coronary artery without angina pectoris; E78.5 Hyperlipidemia, unspecified; I10 Essential (primary) hypertension; F17.200 Nicotine dependence, unspecified, uncomplicated; Z79.899 Other long term (current) drug therapy; Z85.118 Personal history of other malignant neoplasm of bronchus and lung
CPT/HCPCS: 0241U; 36415; 71260; 80048; 80053; 82947; 83605; 84145; 85025; 87651; 93268; 94640; 94760; 96374; 96375; 97161; 99285; G0378; J0456; J1642; J1650; J1817; J2919; A9270-GY

== ENCOUNTER 2024-07-26 00:41 | Observation (INO) | payer BC ==
[2024-07-26] MEDS ORDERED: MORPHINE SULFATE 4 MG INJ ONE (01:01)
[2024-07-26] MEDS ORDERED: Sodium Chloride 0.9% 1000 ML 1,000 ML ONE (01:01)
[2024-07-26] MEDS ORDERED: Zofran 4 MG/2 ML VIAL ONE (01:01)
--- NOTE | 2024-07-26 01:01 | ERPHSYRPT ---
- History of Present Illness Time Seen by Provider: 07/26/24 00:45 Historian: patient, family Exam Limitations: no limitations Patient Subjective Stated Complaint: pt states that she has been vomiting on and off all day Triage Nursing Assessment: pt came into the er via wheelchair; pt transfer to bed per self; pt is axo x3; c/o vomiting; c/o abd pain; states 6/10 pain to LLQ; c/o N/V/D; abd flat, soft, nontender; active bowel sounds in all quads; skin PDW; no respiratory distress present; tachycardic Physician History: 63 years old female with multiple medical problems including lung cancer status post resection with chemo/immunotherapy and negative PET scan few months ago, coronary artery disease with stenting, diabetes mellitus, migraine, hypertension, chronic diarrhea presented in the ER with complains of left-sided abdominal pain with multiple episodes of nonprojectile, nonbilious vomiting since yesterday morning. Patient reports earlier she checked her glucose and it was in 500s, she has taken insulin few hours ago and prior to arrival it was in 200s. Does have history of DKA. Pain is moderate intensity sharp nature, worse with vomiting. Diarrhea is not any worse than usual. Denies hematemesis or hematochezia. No fever or chills reported. Denies any known sick contact. Feels weak fatigued tired and dehydrated. Allergies/Adverse Reactions: orphenadrine citrate [From Norflex] Allergy (Intermediate, Verified 07/26/24 00:49) severe vomiting adhesive tape Allergy (Verified 07/26/24 00:49) levofloxacin [From Levaquin] Adverse Reaction (Mild, Verified 07/26/24 00:49) Nausea and Vomiting Home Medications: Promethazine HCl 25 mg [Phenergan 25 mg] 25 mg PO QID PRN 07/17/21 [History] Prochlorperazine Maleate [Compazine] 10 mg PO BIDPRN PRN 08/30/22 [History] Insulin Aspart [NovoLOG Insulin] 0 unit SQ AC PRN 10/08/22 [History] Insulin Glargine,Hum.rec.anlog [Toujeo Solostar] 11 unit SQ QHS 11/28/22 [History] Gabapentin [Neurontin ] 300 mg PO BID 01/01/23 [History] Mirtazapine 30 mg [Remeron 30 mg] 30 mg PO HS 01/01/23 [History] ALPRAZolam 1 MG [Xanax 1 mg] 1 mg PO BID 01/01/24 [History] Diphenoxylate HCl/Atropine [Diphenoxylate-Atrop 2.5-0.025] 1 tab PO QIDPRN PRN 01/01/24 [History] Ergocalciferol (Vitamin D2) [Vitamin D2] 1,250 mcg PO WEEKLY 01/01/24 [History] Tramadol HCl 50 mg [Ultram 50 mg] 50 mg Q8H PRN PRN 06/24/24 [History] Atorvastatin Calcium [Lipitor] 20 mg PO HS 06/25/24 [History] Budesonide [Budesonide Dr] 3 mg PO DAILY 06/25/24 [History] Buspirone HCl 5 mg [Buspar 5 mg] 10 mg PO BID 06/25/24 [History] Cyanocobalamin 1000 Mcg/ml [Cyanocobalamin B-12 1000 MCG/ML] 1,000 mcg IJ UD 06/25/24 [History] Duloxetine HCl 30 mg [Cymbalta 30 MG Capsule] 30 mg PO BID 06/25/24 [History] Hx Tetanus, Diphtheria Vaccination/Date Given: Yes (2015) Hx Influenza Vaccination/Date Given: Yes Hx Pneumococcal Vaccination/Date Given: Yes Travel Risk - International Travel Have you traveled outside of the country in past 3 weeks: No - Emerging Infectious Disease Are you exhibiting symptoms associated with any current EIDs: Yes Symptoms: Abdominal Pain, Diarrhea, Vomitting - Review of Systems Constitutional: Fatigue, Weakness Eyes: No Symptoms Ears, Nose, & Throat: No Symptoms Respiratory: No Symptoms Cardiac: No Symptoms Abdominal/Gastrointestinal: Abdominal Pain, Nausea, Vomiting, Diarrhea Genitourinary Symptoms: No Symptoms Musculoskeletal: Arthralgias Skin: No Symptoms Neurological: No Symptoms Endocrine: No Symptoms Hematologic/Lymphatic: No Symptoms - Past Medical History Pertinent Past Medical History: Yes Neurological History: No Pertinent History ENT History: Cataracts Cardiac History: Coronary Artery Disease, High Cholesterol, Hypertension Respiratory History: COPD, Lung Cancer Endocrine Medical History: Diabetes Type II Musculoskeletal History: Fractures GI Medical History: GERD History: Renal Disease Psycho-Social History: Anxiety, Depression Female Reproductive Disorders: No Pertinent History Other Medical History: Previous left leg fx many years ago,rt wrist fx with cast. left lower lobe lung cancer. chemo - Past Surgical History Past Surgical History: Yes Neuro Surgical History: No Pertinent History Cardiac: Cardiac Catheterization, Cardiac Stent Respiratory: Lobectomy Gastrointestinal: Cholecystectomy Genitourinary: No Pertinent History Musculoskeletal: Other Female Surgical History: Tubal Ligation Other Surgical History: BUNONECTOMY. BACK SURGERY X2, right upper chest port placement. LL lung lobectomy Significant Family History: heart disease, diabetes, hypertension - Social History Smoking Status: Current every day smoker How long have you smoked: 30+ years Exposure to second hand smoke: Yes Drug Use: none - Social Determinants of Health Will the patient participate in the screening: Declined to provide Do you worry about a steady place to live?: No In the past 12 months,have you had to go without utilities?: No Transportation Issues: No Has anyone in your support network made you feel unsafe?: No Have you or anyone in your house had to go w/o enough food: No - Nursing Vital Signs Nursing Vital Signs: Initial Vital Signs Temperature 98.6 F 07/26/24 00:50 Pulse Rate 113 H 07/26/24 00:50 Respiratory Rate 18 07/26/24 00:50 Blood Pressure 134/65 07/26/24 00:50 O2 Sat by Pulse Oximetry 96 07/26/24 00:50 Pain Scale Pain Intensity 6 - Physical Exam General Appearance: no apparent distress, alert Eye Exam: PERRL/EOMI Ears, Nose, Throat Exam: normal ENT inspection Neck Exam: normal inspection, full range of motion Respiratory Exam: normal breath sounds Cardiovascular Exam: normal heart sounds, tachycardia Gastrointestinal/Abdomen Exam: soft, normal bowel sounds, tenderness (Generalized but more on the left side) Back Exam: normal inspection Extremity Exam: normal inspection, normal range of motion Neurologic Exam: alert, oriented x 3, cooperative, special procedure technologist II-XII nml as tested Skin Exam: normal color SpO2 Interpretation: normal SpO2: 96 O2 Delivery: Room Air - Course EKG Interpreted by Me: RATE ([id number]), Sinus Tach, Right [place] Deviation, NORMAL INTERVALS, Non-specific ST Changes Ordered Tests: Active Orders 24 hr Category Date Time Status Code Status Order ROUTINE Care 07/26/24 03:36 Active IV Insertion STAT Care 07/26/24 00:57 Completed NPO (ED) STAT Care 07/26/24 00:[address] in Observation ROUTINE Care 07/26/24 03:36 Active ABDOMEN AND PELVIS W/0 CONTRAS [CT] Stat Exams 07/26/24 01:14 Completed CBC W DIFF Stat Lab 07/26/24 01:05 Completed CMP Stat Lab 07/26/24 01:05 Completed LIPASE Stat Lab 07/26/24 01:05 Completed Lactic Acid Stat Lab 07/26/24 00:57 Completed MAG [MAGNESIUM] Stat Lab 07/26/24 01:00 Completed POCT GLUCOSE Stat Lab 07/26/24 02:42 Completed VBG [VENOUS BLOOD GAS] Stat Lab 07/26/24 00:58 Completed Transfer Order Routine Transfer 07/26/24 Completed Medication Summary Generic Name Dose Route Start Last Admin Trade Name Freq PRN Reason Stop Dose Admin Acetaminophen 650 mg 07/26/24 04:27 Acetaminophen 325 Mg Tablet PO 08/25/24 04:26 Q6H PRN PRN PAIN AND/OR FEVER Enoxaparin Sodium 40 mg 07/26/24 10:00 Enoxaparin Sodium 40 Mg/0.4 Ml Syringe SQ 08/25/24 09:59 DAILY NISSA INSULIN REGULAR IN 0.9 % NACL 100 unit in 100 mls @ 5 mls/hr 07/26/24 04:27 07/26/24 04:34 Myxredlin 100 Unit/100 Ml Bag IV 08/25/24 04:26 4 mls/hr .Q20H PRN 4 mls/hr HYPERGLYCEMIA Titration Protocol Potassium Chloride/Sodium Chloride 1,000 mls @ 200 mls/hr 07/26/24 04:30 07/26/24 04:52 Sodium Chloride 0.9% W/ 20 Meq Kcl/Liter IV 08/25/24 04:29 200 mls/hr .Q5H NISSA Administration Morphine Sulfate 2 mg 07/26/24 04:54 Morphine Sulfate 2 Mg/Ml Inj IV 07/31/24 04:53 Q4H PRN PRN SEVERE PAIN Nicotine 21 mg 07/26/24 04:30 07/26/24 04:52 Nicotine 21 Mg/Patch Patch TOP 08/25/24 04:29 21 mg Q24H NISSA Administration Ondansetron HCl 4 mg 07/26/24 04:54 Ondansetron Hcl 4 Mg/2 Ml Vial IV 08/25/24 04:53 Q6H PRN PRN NAUSEA/VOMITING Discontinued Medications Generic Name Dose Route Start Last Admin Trade Name Freq PRN Reason Stop Dose Admin Sodium Chloride 1,000 mls @ 999 mls/hr 07/26/24 00:57 07/26/24 02:09 Sodium Chloride 0.9% 1000 Ml IV 07/26/24 01:57 Infused .Q1H1M STA Infusion Sodium Chloride Confirm 07/26/24 01:01 Sodium Chloride 0.9% 1000 Ml Administered 07/26/24 01:02 Dose 1,000 mls @ ud .ROUTE .STK-MED ONE Ceftriaxone Sodium 2 gm in 100 mls @ 200 mls/hr 07/26/24 02:44 07/26/24 02:59 Rocephin 2 Gm/100 Ml Nacl IV 07/26/24 03:13 200 mls/hr STAT ONE 200 mls/hr Administration INSULIN REGULAR IN 0.9 % NACL 100 unit in 100 mls @ 5 drops/hr 07/26/24 02:49 07/26/24 04:34 Myxredlin 100 Unit/100 Ml Bag IV 08/25/24 02:48 4 drops/hr .Q24H PRN 4 drops/hr HYPERGLYCEMIA Titration Protocol Sodium Chloride 1,000 mls @ 125 mls/hr 07/26/24 03:00 07/26/24 02:58 Sodium Chloride 0.9% 1000 Ml IV 08/25/24 02:59 125 mls/hr .Q8H NISSA Administration Ceftriaxone Sodium Confirm 07/26/24 02:53 Rocephin 2 Gm/100 Ml Nacl Administered 07/26/24 02:54 Dose 2 gm in 100 mls @ ud IV .STK-MED ONE INSULIN REGULAR IN 0.9 % NACL Confirm 07/26/24 02:53 Myxredlin 100 Unit/100 Ml Bag Administered 07/26/24 02:54 Dose 100 unit in 100 mls @ ud IV .STK-MED ONE Morphine Sulfate 4 mg 07/26/24 00:57 07/26/24 01:08 Morphine Sulfate 4 Mg/Ml Injection IV 07/26/24 00:58 4 mg STAT ONE Administration Morphine Sulfate Confirm 07/26/24 01:01 Morphine Sulfate 4 Mg/Ml Injection Administered 07/26/24 01:02 Dose 4 mg .ROUTE .STK-MED ONE Ondansetron HCl 4 mg 07/26/24 00:57 07/26/24 01:07 Ondansetron Hcl 4 Mg/2 Ml Vial IV 07/26/24 00:58 4 mg STAT ONE Administration Ondansetron HCl Confirm 07/26/24 01:01 Ondansetron Hcl 4 Mg/2 Ml Vial Administered 07/26/24 01:02 Dose 4 mg .ROUTE .STK-MED ONE Lab/Rad Data: Laboratory Result Diagrams 07/26/24 01:05 07/26/24 01:05 Laboratory Results 07/26/24 07/26/24 07/26/24 Range/Units 02:42 01:05 01:05 WBC 14.8 H (3.98-10.04) x10^3/uL RBC 3.85 L (3.93-5.22) x10^6/uL Hgb 11.8 (11.2-15.7) g/dL Hct 37.2 (34.1-44.9) % MCV 96.6 H (79.4-94.8) fL MCH 30.6 (25.6-32.2) pg MCHC 31.7 L (32.2-35.5) g/dL RDW 14.5 H (11.7-14.4) % Plt Count 436 H (182-369) x10^3/uL MPV 9.0 L (9.4-12.3) fL Gran % 76.7 H (34.0-71.1) % Immature Gran % (Auto) 0.5 H (0.001-0.429) % Nucleat RBC Rel Count 0.0 (0.00-0.2) % Eos # (Auto) 0.13 (0.04-0.36) x10^3/uL Immature Gran # (Auto) 0.07 H (0.001-0.031) x10^3u/L Absolute Lymphs (auto) 2.07 (1.18-3.74) x10^3/uL Absolute Monos (auto) 1.07 H (0.24-0.86) x10^3/uL Absolute Nucleated RBC 0.00 (0.00-0.012) x10^3u/L Lymphocytes % 14.0 L (19.3-51.7) % Monocytes % 7.2 (4.7-12.5) % Eosinophils % 0.9 (0.7-5.8) % Basophils % 0.7 (0.1-1.2) % Absolute Granulocytes 11.38 H (1.56-6.13) x10^3/uL Basophils # 0.10 H (0.01-0.08) x10^3/uL pO2/FiO2 Ratio % VBG pH (7.32-7.42) VBG pCO2 at Pat Temp (42-55) mm/Hg VBG pO2 at Pat Temp (25-40) mm/Hg VBG HCO3 (22-28) meq/L VBG O2 Sat (Moe) (95-100) VBG Base Excess (-2.0-2.0) VBG Hemoglobin VBG Carboxyhemoglobin (0.0-6.9) % T HGB POC Potassium (3.5-5.1) Sodium 136 (135-145) mmol/L Potassium 4.5 (3.5-5.1) mmol/L Chloride 99 (98-107) mmol/L Carbon Dioxide 14 L* (22-30) mmol/L Anion Gap 28.1 H (5-15) MEQ/L BUN 33 H (7-17) mg/dL Creatinine 1.07 H (0.52-1.04) mg/dL Estimated GFR 58.7 ML/MIN Glucose 377 H (74-106) mg/dL POC Glucometer 454 H (74 to 106) mg/dL Lactic Acid (0.4-2.0) Calcium 9.6 (8.4-10.2) mg/dL Magnesium (1.6-2.3) mg/dL Total Bilirubin 0.80 (0.2-1.3) mg/dL AST 24 (14-36) U/L ALT 25 (0-35) U/L Alkaline Phosphatase 195 H (38-126) U/L Serum Total Protein 6.8 (6.3-8.2) g/dL Albumin 3.8 (3.5-5.0) g/dL Lipase 33 (23-300) U/L 07/26/24 07/26/24 07/26/24 Range/Units 01:00 00:58 00:57 WBC (3.98-10.04) x10^3/uL RBC (3.93-5.22) x10^6/uL Hgb (11.2-15.7) g/dL Hct (34.1-44.9) % MCV (79.4-94.8) fL MCH (25.6-32.2) pg MCHC (32.2-35.5) g/dL RDW (11.7-14.4) % Plt Count (182-369) x10^3/uL MPV (9.4-12.3) fL Gran % (34.0-71.1) % Immature Gran % (Auto) (0.001-0.429) % Nucleat RBC Rel Count (0.00-0.2) % Eos # (Auto) (0.04-0.36) x10^3/uL Immature Gran # (Auto) (0.001-0.031) x10^3u/L Absolute Lymphs (auto) (1.18-3.74) x10^3/uL Absolute Monos (auto) (0.24-0.86) x10^3/uL Absolute Nucleated RBC (0.00-0.012) x10^3u/L Lymphocytes % (19.3-51.7) % Monocytes % (4.7-12.5) % Eosinophils % (0.7-5.8) % Basophils % (0.1-1.2) % Absolute Granulocytes (1.56-6.13) x10^3/uL Basophils # (0.01-0.08) x10^3/uL pO2/FiO2 Ratio 21.0 % VBG pH 7.30 L (7.32-7.42) VBG pCO2 at Pat Temp 32 L (42-55) mm/Hg VBG pO2 at Pat Temp 66 H (25-40) mm/Hg VBG HCO3 15.7 L* (22-28) meq/L VBG O2 Sat (Moe) 95.9 (95-100) VBG Base Excess -9.6 L (-2.0-2.0) VBG Hemoglobin 12.8 VBG Carboxyhemoglobin 10.1 H* (0.0-6.9) % T HGB POC Potassium 5.1 (3.5-5.1) Sodium (135-145) mmol/L Potassium (3.5-5.1) mmol/L Chloride (98-107) mmol/L Carbon Dioxide (22-30) mmol/L Anion Gap (5-15) MEQ/L BUN (7-17) mg/dL Creatinine (0.52-1.04) mg/dL Estimated GFR ML/MIN Glucose (74-106) mg/dL POC Glucometer (74 to 106) mg/dL Lactic Acid 2.2 H (0.4-2.0) Calcium (8.4-10.2) mg/dL Magnesium 1.5 L (1.6-2.3) mg/dL Total Bilirubin (0.2-1.3) mg/dL AST (14-36) U/L ALT (0-35) U/L Alkaline Phosphatase (38-126) U/L Serum Total Protein (6.3-8.2) g/dL Albumin (3.5-5.0) g/dL Lipase (23-300) U/L - Progress Progress: improved, re-examined Progress Note: 07/26/24 02:46 63-year-old diabetic is evaluated in the ER for left-sided abdominal pain with nausea and vomiting since yesterday morning. She is given fluids and symptomatic treatment, her pain is better on reevaluation. Patient is mildly tachycardic on presentation which is better after fluids. No vomiting while in the ER. Workup showed white count of 14, lactate of 2.2, bicarb of 14, potassium 4.5, gap of 28 and glucose initially in 370s but after fluids it went up to 454. She has a pH of 7.30, I believe patient is going into DKA, started on insulin drip per protocol. CT abdomen pelvis without contrast showed chronic findings in the hepatobiliary channel with no worsening and also findings of acute cystitis with some air- fluid levels/emphysematous cystitis, urinalysis is pending, patient is started on Rocephin. Discussed the results of workup with patient and family and plan of admission which they understand and agree. Discussed with Dr. Davidson hospitalist, reviewed history, workup and patient is being admitted to ICU. Complexity of problems addressed: High acuity Complexity of data reviewed/analyzed: Extensive Risk of complication/morbidity/mortality associated with patient management: High risk Discussed with Dr.: Marcella Will see patient in: hospital (observation) Counseled pt/family regarding: lab results, diagnosis, rad results, smoking cessation Medical Desision Making - Independent Historian Additional History obtained from: Spouse - Discussion of managment Care discussed with:: hospitalist (Dr. Carver) Reviewed:: Test results Agreed on:: Treatment plan, place in obs Will see patient: in hospital - Diagnostic Testing Diagnostic test were ordered, analyzed, and reviewed by me: Yes Radiological Interpretation: Reviewed by me, Teleradiologist Report - Risk of complications The pt has a mod risk of morbidity or mortality based on: Need for prescription drug management The pt has a high risk of morbidity or mortality based on: Drug therapy requiring intensive monitoring for toxicity, Decision regarding hospitilization or escalation of hosp level of care - Departure Departure Disposition: Observation Clinical Impression: Acute cystitis, Diabetic ketoacidosis, Nausea & vomiting, Left sided abdominal pain Condition: Stable Critical Care Time: Yes Critical Care Time(excluding separately billable procedures): Critical 30-74 mins
[2024-07-26] MEDS: Sodium Chloride 0.9% 1000 ML 1,000 ML IV STA (01:05)
[2024-07-26] MEDS: Zofran 4 MG/2 ML VIAL IV ONE (01:07)
[2024-07-26] MEDS: MORPHINE SULFATE 4 MG INJ IV ONE (01:08)
[2024-07-26 01:15] LABS: Absolute Neutrophil Ct (ANC) 11.38 x10^3/uL (1.56-6.13); BASOPHIL % 0.7 % (0.1-1.2); Eosinophil % 0.9 % (0.7-5.8); Eosinophil (Absolute #) 0.13 x10^3/uL (0.04-0.36); Hematocrit 37.2 % (34.1-44.9); Hemoglobin 11.8 g/dL (11.2-15.7); IMMATURE GRAN # 0.07 x10^3u/L (0.001-0.031); IMMATURE GRAN % 0.5 % (0.001-0.429); Lymphocyte (Absolute #) 2.07 x10^3/uL (1.18-3.74); Mean Cell Volume 96.6 fL (79.4-94.8); Mean Corpuscular Hemoglobin 30.6 pg (25.6-32.2); Mean Corpuscular Hgb Concent. 31.7 g/dL (32.2-35.5); Monocyte (Absolute #) 1.07 x10^3/uL (0.24-0.86); Monocytes % 7.2 % (4.7-12.5); Neutrophil % 76.7 % (34.0-71.1); Platelet Count 436 x10^3/uL (182-369); Red Blood Count 3.85 x10^6/uL (3.93-5.22); Red Cell Distribution Width 14.5 % (11.7-14.4); White Blood Count 14.8 x10^3/uL (3.98-10.04)
[2024-07-26 01:29] LABS: ALBUMIN 3.8 g/dL (3.5-5.0); ANION GAP 28.1 MEQ/L (5-15); BILIRUBIN,TOTAL 0.8 mg/dL (0.2-1.3); Calcium 9.6 mg/dL (8.4-10.2); Creatinine 1 1.07 mg/dL (0.52-1.04); EST GLOMERULAR FILTRATION RATE 58.7 ML/MIN; Potassium 4.5 mmol/L (3.5-5.1); Total Protein 6.8 g/dL (6.3-8.2)
[2024-07-26 02:28] LABS: VBG BASE EXCESS -9.6 (-2.0-2.0); VBG HCO3- 15.7 meq/L (22-28); VBG HEMOGLOBIN 12.8; VBG O2 SATURATION 95.9 (95-100); VBG POTASSIUM 5.1 (3.5-5.1); VBG pH 7.3 (7.32-7.42)
[2024-07-26 02:29] LABS: VBG CARBOXYHEMOGLOBIN 10.1 % T HGB (0.0-6.9)
--- NOTE | 2024-07-26 02:30 | XRAY ---
CLINICAL HISTORY: Vomiting left-sided abdominal pain COMPARISON: CT 12/04/2023. TECHNIQUE: Non-contrast CT of the abdomen was performed. Coronal and sagittal reformats were also obtained. One of the following dose reduction techniques was utilized for this exam.Automated exposure control, adjustment of the mA and/or kV according to patient size, and use of iterative reconstruction. CTDI: 3.42 mGy, DLP: 175.15 mGY-cm FINDINGS: Liver: Normal in size, shape, and density. No focal lesions, cysts, or masses were identified. No evidence of hepatic steatosis or cirrhosis. Still noted mild dilatation of the central intrahepatic bile ducts as well as dilated common hepatic and common bile ducts reaching 20mm in diameter (stable). Gallbladder : The gallbladder is not visualized. Cholecystetcomy clips are seen. Pancreas: Pancreatic head, body, and tail are visualized and appear normal in size and density. No pancreatic masses, cysts, or calcifications were noted. The main pancreatic duct is normal size and diameter without dilatation. Spleen: Normal in size, shape, and density. Small calcified granulomas are seen (unchanged). Kidneys and Adrenal Glands: Relatively smaller-sized right kidney still shows few calcific foci (unchanged), likely representing cortical calcifications rather than small stones. Normal size of the left kidney showing small cortical cyst (unchanged). no evidence of hydronephrosis. suspected tiny gravel (1mm) at the left middle calyceal region (new). No other stones could be seen. Adrenal glands are unremarkable. 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 Pelvic organs are unremarkable Appendix: Not clearly visualized. Peritoneal and Retroperitoneal Structures: No free fluid or abnormal fluid collections were identified within the abdomen or pelvis. No lymphadenopathy was noted. Aorto-iliac atherosclerotic calcifications are seen. Bone: Spondylodegenrative changes are seen with scoliotic configuration. Right femoral head prosthesis is seen. Basal chest scans: Redemonestration of mild left pleural effusion and few atelectyatic bands at basal lung regions (stable). IMPRESSION: 1. 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 2. Redemonstration of mild intrahepatic biliary dilatation along with dilated common hepatic and common bile ducts (stable). 3. Relatively small-sized right kidney with few cortical calcifications (unchanged). 4. Small left renal cyst (unchanged). 5. Suspected tiny left middle calyceal gravel (new). 6. Basal chest scans revealed left mild pleural effusion and few basal atelctatic bands (unchanged). [facility] ER was called at [phone] at 1:15 AM FACING GRINDER, 07/26/2024 and SERGEY Cardenas was informed regarding the presence of significant medical findings in the report. Electronically Signed by: Kishore Al MD. (07/26/2024 02:26:37 EDT)
[2024-07-26] MEDS ORDERED: MYXREDLIN 100 UNIT/100 ML BAG 100 UNIT/100 ML PLAST..BAG IV ONE (02:53)
[2024-07-26] MEDS ORDERED: ROCEPHIN 2 GM/100 ML NACL 2 GM/100 ML IVPB IV ONE (02:53)
[2024-07-26] MEDS: Sodium Chloride 0.9% 1000 ML 1,000 ML IV SCH (02:58)
[2024-07-26] MEDS: MYXREDLIN 100 UNIT/100 ML BAG 100 UNIT/100 ML PLAST..BAG IV PRN ×2 (02:58→04:27)
[2024-07-26] MEDS: ROCEPHIN 2 GM/100 ML NACL 2 GM/100 ML IVPB IV ONE (02:59)
[2024-07-26] MEDS ORDERED: TYLENOL 325 MG PO PRN (04:27)
[2024-07-26] MEDS: Sodium Chloride 0.9% W/ 20 mEq KCl/LITER 1,000 ML IV SCH (04:52)
[2024-07-26] MEDS: Nicoderm CQ 21 MG TOP SCH (04:52)
[2024-07-26] MEDS ORDERED: Zofran 4 MG/2 ML VIAL IV PRN (04:54)
[2024-07-26] MEDS ORDERED: MORPHINE SULFATE 2 MG INJ IV PRN (04:54)
--- NOTE | 2024-07-26 04:54 | PCM.HP ---
History of Present Illness - Chief Complaint Chief Complaint: nausea, vomiting, diarrhea Date: 07/26/24 History of Present Illness: 63-year-old woman with history of hypertension, COPD, CAD, diabetes, and prior lung cancer, who presents with 1 day of nausea, vomiting, and diarrhea. Patient states she has had nonbloody, nonbilious vomiting x 5 today, as well as 5 loose bowel movements. Associated with intermittent left-sided abdominal pain, sharp, relieved by vomiting. Denies fevers, denies any dysuria. Notes that her blood sugar is also more elevated, and she is been lightheaded with some dry mouth. No further episodes of vomiting or diarrhea since arriving to the hospital. - Review of Systems All Other Systems: Reviewed and Negative Medications & Allergies Home Medications: Home Medication List Promethazine HCl 25 mg [Phenergan 25 mg] 25 mg PO QID PRN 07/17/21 [History Confirmed 06/24/24] Prochlorperazine Maleate [Compazine] 10 mg PO BIDPRN PRN 08/30/22 [History Con firmed 06/24/24] Insulin Aspart [NovoLOG Insulin] 0 unit SQ AC PRN 10/08/22 [History Confirmed 06/24/24] Insulin Glargine,Hum.rec.anlog [Touwilfrid Solostar] 11 unit SQ QHS 11/28/22 [History Confirmed 06/24/24] Gabapentin [Neurontin ] 300 mg PO BID 01/01/23 [History Confirmed 06/24/24] Mirtazapine 30 mg [Remeron 30 mg] 30 mg PO HS 01/01/23 [History Confirmed 06/24/24] ALPRAZolam 1 MG [Xanax 1 mg] 1 mg PO BID 01/01/24 [History Confirmed 06/24/24] Diphenoxylate HCl/Atropine [Diphenoxylate-Atrop 2.5-0.025] 1 tab PO QIDPRN PRN 01/01/24 [History Confirmed 06/24/24] Ergocalciferol (Vitamin D2) [Vitamin D2] 1,250 mcg PO WEEKLY 01/01/24 [History Confirmed 06/25/24] Tramadol HCl 50 mg [Ultram 50 mg] 50 mg Q8H PRN PRN 06/24/24 [History Confirmed 06/24/24] Atorvastatin Calcium [Lipitor] 20 mg PO HS 06/25/24 [History Confirmed 06/25/24] Azithromycin 250 mg [Zithromax 250 MG TABLET] 250 mg PO ZPACK #6 tablet 06/25/24 [Rx] Budesonide [Budesonide Dr] 3 mg PO DAILY 06/25/24 [History Confirmed 06/25/24] Buspirone HCl 5 mg [Buspar 5 mg] 10 mg PO BID 06/25/24 [History Confirmed 06/25/24] Cyanocobalamin 1000 Mcg/ml [Cyanocobalamin B-12 1000 MCG/ML] 1,000 mcg IJ UD 06/25/24 [History Confirmed 06/25/24] Duloxetine HCl 30 mg [Cymbalta 30 MG Capsule] 30 mg PO BID 06/25/24 [History Confirmed 06/25/24] Oseltamivir Phosphate [Oseltamivir Phosphate 30 mg Cap] 30 mg PO BID 5 Days #10 cap 06/25/24 [Rx] Allergies/Adverse Reactions: Allergies Allergy/AdvReac Type Severity Reaction Status Date / Time orphenadrine citrate Allergy Intermediate Verified 07/26/24 00:49 [From Norflex] adhesive tape Allergy Verified 07/26/24 00:49 levofloxacin [From Levaquin] AdvReac Mild Nausea and Verified 07/26/24 00:49 Vomiting - Past Medical History Past Medical History: Yes Neurological History: No Pertinent History ENT History: Cataracts Cardiac History: Coronary Artery Disease, High Cholesterol, Hypertension Respiratory History: COPD, Lung Cancer Endocrine Medical History: Diabetes Type II Musculoskelatal History: Fractures GI Medical History: GERD History: Renal Disease Pyscho-Social History: Anxiety, Depression Reproductive Disorders: No Pertinent History Comment: Previous left leg fx many years ago,rt wrist fx with cast. left lower lobe lung cancer. chemo - Past Surgical History Past Surgical History: Yes Neuro Surgical History: No Pertinent History Cardiac History: Cardiac Catheterization, Cardiac Stent Respiratory Surgery: Lobectomy GI Surgical History: Cholecystectomy Genitourinary Surgical Hx: No Pertinent History Musculskeletal Surgical Hx: Other Female Surgical History: Tubal Ligation Other Surgical History: BUNONECTOMY. BACK SURGERY X2, right upper chest port placement. LL lung lobectomy Significant Family History: heart disease, diabetes, hypertension - Social History Smoking Status: Current every day smoker (1/2 pack per day) How long have you smoked: 30+ years Exposure to second hand smoke: Yes Alcohol: None Drug Use: none - Social Determinants of Health Will the patient participate in the screening: Declined to provide Do you worry about a steady place to live?: No In the past 12 months,have you had to go without utilities?: No Have you or anyone in your house had to go without enough: No Transportation Issues: No Has anyone in your support network made you feel unsafe?: No Does the patient want assistance with any of the above?: No - Physical Exam Vital Signs: Vital Signs - 24 hr Temp Pulse Resp BP BP Pulse Ox 07/26/24 03:00 107 H 127/59 96 07/26/24 02:58 96 07/26/24 02:31 108 H 120/47 95 07/26/24 02:30 108 H 86/74 97 07/26/24 02:00 108 H 130/51 96 07/26/24 01:30 107 H 119/48 96 07/26/24 01:00 113 H 18 130/59 96 07/26/24 00:50 98.6 F 113 H 18 134/65 96 Physical Exam GEN: Lying in bed in no acute distress. HENT: Normocephalic, atraumatic. Dry mucous membranes. EYES: Normal inspection, anicteric sclera, extraocular movements intact. NECK: Supple, full range of motion CV: Tachycardic but regular, no murmurs, no gallops. No JVD or edema. PULM: Clear to auscultation bilaterally, no work of breathing. On room air. ABD: Nondistended, nontender. MSK: No joint effusions, full range of motion SKIN: No rashes, normal color. NEURO: Face symmetric, no focal motor or sensory deficits. PSYCH: Alert, oriented x 3 Results - Labs Lab/Micro Results: Lab Results-Last 24 Hours 07/26/24 07/26/24 07/26/24 Range/Units 00:57 00:58 01:00 WBC (3.98-10.04) x10^3/uL RBC (3.93-5.22) x10^6/uL Hgb (11.2-15.7) g/dL Hct (34.1-44.9) % MCV (79.4-94.8) fL MCH (25.6-32.2) pg MCHC (32.2-35.5) g/dL RDW (11.7-14.4) % Plt Count (182-369) x10^3/uL MPV (9.4-12.3) fL Gran % (34.0-71.1) % Immature Gran % (Auto) (0.001-0.429) % Nucleat RBC Rel Count (0.00-0.2) % Eos # (Auto) (0.04-0.36) x10^3/uL Immature Gran # (Auto) (0.001-0.031) x10^3u/L Absolute Lymphs (auto) (1.18-3.74) x10^3/uL Absolute Monos (auto) (0.24-0.86) x10^3/uL Absolute Nucleated RBC (0.00-0.012) x10^3u/L Lymphocytes % (19.3-51.7) % Monocytes % (4.7-12.5) % Eosinophils % (0.7-5.8) % Basophils % (0.1-1.2) % Absolute Granulocytes (1.56-6.13) x10^3/uL Basophils # (0.01-0.08) x10^3/uL pO2/FiO2 Ratio 21.0 % VBG pH 7.30 L (7.32-7.42) VBG pCO2 at Pat Temp 32 L (42-55) mm/Hg VBG pO2 at Pat Temp 66 H (25-40) mm/Hg VBG HCO3 15.7 L* (22-28) meq/L VBG O2 Sat (Moe) 95.9 (95-100) VBG Base Excess -9.6 L (-2.0-2.0) VBG Hemoglobin 12.8 VBG Carboxyhemoglobin 10.1 H* (0.0-6.9) % T HGB POC Potassium 5.1 (3.5-5.1) Sodium (135-145) mmol/L Potassium (3.5-5.1) mmol/L Chloride (98-107) mmol/L Carbon Dioxide (22-30) mmol/L Anion Gap (5-15) MEQ/L BUN (7-17) mg/dL Creatinine (0.52-1.04) mg/dL Estimated GFR ML/MIN Glucose (74-106) mg/dL POC Glucometer (74 to 106) mg/dL Lactic Acid 2.2 H (0.4-2.0) Calcium (8.4-10.2) mg/dL Magnesium 1.5 L (1.6-2.3) mg/dL Total Bilirubin (0.2-1.3) mg/dL AST (14-36) U/L ALT (0-35) U/L Alkaline Phosphatase (38-126) U/L Serum Total Protein (6.3-8.2) g/dL Albumin (3.5-5.0) g/dL Lipase (23-300) U/L 07/26/24 07/26/24 07/26/24 Range/Units 01:05 01:05 02:42 WBC 14.8 H (3.98-10.04) x10^3/uL RBC 3.85 L (3.93-5.22) x10^6/uL Hgb 11.8 (11.2-15.7) g/dL Hct 37.2 (34.1-44.9) % MCV 96.6 H (79.4-94.8) fL MCH 30.6 (25.6-32.2) pg MCHC 31.7 L (32.2-35.5) g/dL RDW 14.5 H (11.7-14.4) % Plt Count 436 H (182-369) x10^3/uL MPV 9.0 L (9.4-12.3) fL Gran % 76.7 H (34.0-71.1) % Immature Gran % (Auto) 0.5 H (0.001-0.429) % Nucleat RBC Rel Count 0.0 (0.00-0.2) % Eos # (Auto) 0.13 (0.04-0.36) x10^3/uL Immature Gran # (Auto) 0.07 H (0.001-0.031) x10^3u/L Absolute Lymphs (auto) 2.07 (1.18-3.74) x10^3/uL Absolute Monos (auto) 1.07 H (0.24-0.86) x10^3/uL Absolute Nucleated RBC 0.00 (0.00-0.012) x10^3u/L Lymphocytes % 14.0 L (19.3-51.7) % Monocytes % 7.2 (4.7-12.5) % Eosinophils % 0.9 (0.7-5.8) % Basophils % 0.7 (0.1-1.2) % Absolute Granulocytes 11.38 H (1.56-6.13) x10^3/uL Basophils # 0.10 H (0.01-0.08) x10^3/uL pO2/FiO2 Ratio % VBG pH (7.32-7.42) VBG pCO2 at Pat Temp (42-55) mm/Hg VBG pO2 at Pat Temp (25-40) mm/Hg VBG HCO3 (22-28) meq/L VBG O2 Sat (Moe) (95-100) VBG Base Excess (-2.0-2.0) VBG Hemoglobin VBG Carboxyhemoglobin (0.0-6.9) % T HGB POC Potassium (3.5-5.1) Sodium 136 (135-145) mmol/L Potassium 4.5 (3.5-5.1) mmol/L Chloride 99 (98-107) mmol/L Carbon Dioxide 14 L* (22-30) mmol/L Anion Gap 28.1 H (5-15) MEQ/L BUN 33 H (7-17) mg/dL Creatinine 1.07 H (0.52-1.04) mg/dL Estimated GFR 58.7 ML/MIN Glucose 377 H (74-106) mg/dL POC Glucometer 454 H (74 to 106) mg/dL Lactic Acid (0.4-2.0) Calcium 9.6 (8.4-10.2) mg/dL Magnesium (1.6-2.3) mg/dL Total Bilirubin 0.80 (0.2-1.3) mg/dL AST 24 (14-36) U/L ALT 25 (0-35) U/L Alkaline Phosphatase 195 H (38-126) U/L Serum Total Protein 6.8 (6.3-8.2) g/dL Albumin 3.8 (3.5-5.0) g/dL Lipase 33 (23-300) U/L // Range/Units 04:30 WBC (3.98-10.04) x10^3/uL RBC (3.93-5.22) x10^6/uL Hgb (11.2-15.7) g/dL Hct (34.1-44.9) % MCV (79.4-94.8) fL MCH (25.6-32.2) pg MCHC (32.2-35.5) g/dL RDW (11.7-14.4) % Plt Count (182-369) x10^3/uL MPV (9.4-12.3) fL Gran % (34.0-71.1) % Immature Gran % (Auto) (0.001-0.429) % Nucleat RBC Rel Count (0.00-0.2) % Eos # (Auto) (0.04-0.36) x10^3/uL Immature Gran # (Auto) (0.001-0.031) x10^3u/L Absolute Lymphs (auto) (1.18-3.74) x10^3/uL Absolute Monos (auto) (0.24-0.86) x10^3/uL Absolute Nucleated RBC (0.00-0.012) x10^3u/L Lymphocytes % (19.3-51.7) % Monocytes % (4.7-12.5) % Eosinophils % (0.7-5.8) % Basophils % (0.1-1.2) % Absolute Granulocytes (1.56-6.13) x10^3/uL Basophils # (0.01-0.08) x10^3/uL pO2/FiO2 Ratio % VBG pH (7.32-7.42) VBG pCO2 at Pat Temp (42-55) mm/Hg VBG pO2 at Pat Temp (25-40) mm/Hg VBG HCO3 (22-28) meq/L VBG O2 Sat (Moe) (95-100) VBG Base Excess (-2.0-2.0) VBG Hemoglobin VBG Carboxyhemoglobin (0.0-6.9) % T HGB POC Potassium (3.5-5.1) Sodium (135-145) mmol/L Potassium (3.5-5.1) mmol/L Chloride (98-107) mmol/L Carbon Dioxide (22-30) mmol/L Anion Gap (5-15) MEQ/L BUN (7-17) mg/dL Creatinine (0.52-1.04) mg/dL Estimated GFR ML/MIN Glucose (74-106) mg/dL POC Glucometer 346 H (74 to 106) mg/dL Lactic Acid (0.4-2.0) Calcium (8.4-10.2) mg/dL Magnesium (1.6-2.3) mg/dL Total Bilirubin (0.2-1.3) mg/dL AST (14-36) U/L ALT (0-35) U/L Alkaline Phosphatase (38-126) U/L Serum Total Protein (6.3-8.2) g/dL Albumin (3.5-5.0) g/dL Lipase (23-300) U/L - Radiology Impressions Radiology Exams & Impressions: Radiology Procedures Category Date Time Status ABDOMEN AND PELVIS W/0 CONTRAS [CT] Stat Exams 07/26/24 01:[address] abdomen and pelvis new presence of multiple air foci involving and expanding the crain of the urinary bladder, with an air-fluid level in the urinary bladder lumen, suggestive of emphysematous cystitis. Unchanged mild intrahepatic biliary dilatation with dilated common hepatic and common bile ducts. Assessment/Plan (1) DKA (diabetic ketoacidosis) Current Visit: Yes Status: Acute Assessment & Plan: 63-year-old woman with history of brittle diabetes, CAD, hypertension, and lung cancer in remission, who presents with vomiting and diarrhea leading to DKA. ## DKA relatively mild, with normal venous pH, but initial gap 23, with a seru m bicarb of 14. Patient has had prior admissions with DKA triggered by cystitis, last 2 years ago. Admit to ICU Placed on DKA protocol: Insulin drip, q.1 hour glucose checks Start on NS with KCl 20 mEq at 200 mL/h; patient is still little tacky and dry Check BMP, UA q.4 hours to monitor potassium, serum bicarb, anion gap, and presence of ketones N.p.o. Once anion gap is closed, ketones have resolved, and patient has appetite, can attempt to transition to subcu insulin Adjust IV fluids and insulin drip per protocol ## Possible acute cystitis patient with emphysematous bladder changes on CT scan. However, she denies any dysuria. Patient has been unable to produce any urine for UA yet. Given 1 dose of Rocephin in the ED Given lack of symptoms, will hold off on further antibiotic dosing. If eventual UA shows evidence of pyuria, can reevaluate at that time ## Tobacco use disorder patient smokes 1/2 pack/day. Counseled on cessation Start nicotine patch 21 mg ## Hypertension blood pressure currently controlled. Currently pending home medication list. Not starting medications currently Once home medication list available, will restart any home antihypertensives CODE STATUS: Full code Diet: N.p.o. Prophylaxis: Lovenox 40 mg daily Dispo: Place in observation Entirety of encounter took place via live audio/video telemedicine device, with remote physician and patient in hospital, with the assistance of bedside nurse. Code(s): E11.10 - TYPE 2 DIABETES MELLITUS WITH KETOACIDOSIS WITHOUT COMA Telemedicine Encounter - Telemedicine Encounter Telemedicine Encounter: "The entirety of this encounter was performed via Telemedicine" This visit was performed using real-time audio and video connection between my location and thepatients locationwith the assistance of a surrogateat the patients location. Written or verbal consent was obtained from the patient/guardian to perform this visit [facility]. Any patient questions regarding the telemedicine interaction were answered.
[2024-07-26 05:14] LABS: Hematocrit 36.4 % (34.1-44.9); Hemoglobin 11.5 g/dL (11.2-15.7); Mean Cell Volume 97.8 fL (79.4-94.8); Mean Corpuscular Hemoglobin 30.9 pg (25.6-32.2); Mean Corpuscular Hgb Concent. 31.6 g/dL (32.2-35.5); Mean Platelet Volume 8.6 fL (9.4-12.3); Platelet Count 379 x10^3/uL (182-369); Red Blood Count 3.72 x10^6/uL (3.93-5.22); Red Cell Distribution Width 14.4 % (11.7-14.4); White Blood Count 14.7 x10^3/uL (3.98-10.04)
[2024-07-26 05:29] LABS: ANION GAP 25.9 MEQ/L (5-15); Calcium 9.2 mg/dL (8.4-10.2); Creatinine 1 1.11 mg/dL (0.52-1.04); EST GLOMERULAR FILTRATION RATE 56.2 ML/MIN; Potassium 4.2 mmol/L (3.5-5.1)
[2024-07-26 05:39] VITALS: TEMP 98.2
[2024-07-26] MEDS: D5W/0.45NS W/ 20mEq KCl 1000 ML 1,000 ML IV SCH (06:28)
[2024-07-26] MEDS ORDERED: Cyanocobalamin B-12 1000 MCG/ML IJ SCH (07:45)
[2024-07-26] MEDS: MAGNESIUM SULF 2 G/50 ML BAG 2 GM/50 ML PIGGYBACK IV ONE (08:14)
[2024-07-26 08:46] LABS: Appearance Cloudy (Clear); Bacteria Rare /HPF (None Seen); Bilirubin Negative (Negative); Blood Moderate (Negative); Epithelial Cells Rare /HPF (None Seen); Glucose, Urine 500 mg/dL (Negative); Ketones 40 (Negative); Leukocyte Esterase Small (Negative); Nitrite Negative (Negative); Ph 5.5 (4.6-8.0); Protein,Urine Dip 100 (Negative); RBC 51-100 /HPF (0-5); Specific Gravity 1.015 (1.005-1.030); Urobilinogen 0.2 mg/dL (0.2); WBC 21-50 /HPF (0-5)
[2024-07-26 08:47] LABS: ANION GAP 13.8 MEQ/L (5-15); Calcium 8.9 mg/dL (8.4-10.2); Creatinine 1 0.9 mg/dL (0.52-1.04); EST GLOMERULAR FILTRATION RATE 72.3 ML/MIN; Potassium 4.1 mmol/L (3.5-5.1)
[2024-07-26] MEDS ORDERED: Cymbalta 30 MG Capsule PO SCH (10:00)
[2024-07-26] MEDS ORDERED: HUMALOG SQ PRN (10:40)
[2024-07-26] MEDS: Lantus Insulin SQ SCH (10:57)
[2024-07-26] MEDS: ENOXAPARIN SODIUM SQ SCH (11:01)
[2024-07-26] MEDS: Zyvox 600 MG IV PREMIX*** 300 ML IV SCH (11:02)
--- NOTE | 2024-07-26 11:32 | PCM.DS ---
Discharge Summary Date of Admission: 07/26/24 03:25 Date of Discharge: 07/26/24 Admitting Physician: SUZANNE KHAN MD Primary Care Provider: JUANA,LYUDMILA Allergies Allergies orphenadrine citrate [From Norflex] Allergy (Intermediate, Verified 07/26/24 00:49) severe vomiting adhesive tape Allergy (Verified 07/26/24 00:49) levofloxacin [From Levaquin] Adverse Reaction (Mild, Verified 07/26/24 00:49) Nausea and Vomiting Hospital Summary - Hospital Course Hospital Course: Ms. Nowak is a 63-year-old woman with history of hypertension, COPD, CAD, diabetes, and prior lung cancer, who presents with hx of 5 days of nausea, vomiting, and diarrhea. Patient states she has had nonbloody, nonbilious vomiting x 5 today, as well as 5 loose bowel movements. Associated with intermittent left-sided abdominal pain, sharp, relieved by vomiting. Denies fev ers, denies any dysuria. Notes that her blood sugar is also more elevated, and she is been lightheaded with some dry mouth. No further episodes of vomiting or diarrhea since arriving to the hospital. CT abd pelvis showed 1. 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 2. Redemonstration of mild intrahepatic biliary dilatation along with dilated common hepatic and common bile ducts (stable). 3. Relatively small-sized right kidney with few cortical calcifications (unchanged). 4. Small left renal cyst (unchanged). 5. Suspected tiny left middle calyceal gravel (new). 6. Basal chest scans revealed left mild pleural effusion and few basal atelctatic bands (unchanged). UA obtained this AM and started zyvox for UTI. per old records she is resistant to many antibiotics. After discussion with Dr. Mares added Bactrim for Gram negative coverage. Pharmacist Moses explained pt is not happy about stopping some of her meds as she needs to do his to take Zyvox, therefore Zyvox stopped and some meds that were held restarted. Pt weaned off insulin gtt as gap closed, lantus and S/S started. Will advance diet as tolerated. If she does ol she may d/c home later today. US of liver shows no concerning finding. She will need to f/u OP with hepatology and urology. - Vitals & Intake/Output Vital Signs: Vital Signs Temperature 98.2 F 07/26/24 09:00 Pulse Rate 85 07/26/24 11:00 Respiratory Rate 21 07/26/24 11:00 Blood Pressure 137/70 07/26/24 11:00 O2 Sat by Pulse Oximetry 96 07/26/24 11:00 Intake & Output: Intake & Output 07/23/24 07/24/24 07/25/24 07/26/24 11:59 11:59 11:59 11:59 Intake Total 801 Output Total 450 Balance 351 Weight 52.1 kg - Lab Result Diagrams: 07/26/24 05:03 07/26/24 08:32 Lab Results-Last 24 Hrs: Lab Results-Last 24 Hours 07/26/24 07/26/24 07/26/24 Range/Units 00:57 00:58 01:00 WBC (3.98-10.04) x10^3/uL RBC (3.93-5.22) x10^6/uL Hgb (11.2-15.7) g/dL Hct (34.1-44.9) % MCV (79.4-94.8) fL MCH (25.6-32.2) pg MCHC (32.2-35.5) g/dL RDW (11.7-14.4) % Plt Count (182-369) x10^3/uL MPV (9.4-12.3) fL Gran % (34.0-71.1) % Immature Gran % (Auto) (0.001-0.429) % Nucleat RBC Rel Count (0.00-0.2) % Eos # (Auto) (0.04-0.36) x10^3/uL Immature Gran # (Auto) (0.001-0.031) x10^3u/L Absolute Lymphs (auto) (1.18-3.74) x10^3/uL Absolute Monos (auto) (0.24-0.86) x10^3/uL Absolute Nucleated RBC (0.00-0.012) x10^3u/L Lymphocytes % (19.3-51.7) % Monocytes % (4.7-12.5) % Eosinophils % (0.7-5.8) % Basophils % (0.1-1.2) % Absolute Granulocytes (1.56-6.13) x10^3/uL Basophils # (0.01-0.08) x10^3/uL pO2/FiO2 Ratio 21.0 % VBG pH 7.30 L (7.32-7.42) VBG pCO2 at Pat Temp 32 L (42-55) mm/Hg VBG pO2 at Pat Temp 66 H (25-40) mm/Hg VBG HCO3 15.7 L* (22-28) meq/L VBG O2 Sat (Moe) 95.9 (95-100) VBG Base Excess -9.6 L (-2.0-2.0) VBG Hemoglobin 12.8 VBG Carboxyhemoglobin 10.1 H* (0.0-6.9) % T HGB POC Potassium 5.1 (3.5-5.1) Sodium (135-145) mmol/L Potassium (3.5-5.1) mmol/L Chloride (98-107) mmol/L Carbon Dioxide (22-30) mmol/L Anion Gap (5-15) MEQ/L BUN (7-17) mg/dL Creatinine (0.52-1.04) mg/dL Estimated GFR ML/MIN Glucose (74-106) mg/dL POC Glucometer (74 to 106) mg/dL Lactic Acid 2.2 H (0.4-2.0) Calcium (8.4-10.2) mg/dL Phosphorus (2.5-4.5) mg/dL Magnesium 1.5 L (1.6-2.3) mg/dL Total Bilirubin (0.2-1.3) mg/dL AST (14-36) U/L ALT (0-35) U/L Alkaline Phosphatase (38-126) U/L Serum Total Protein (6.3-8.2) g/dL Albumin (3.5-5.0) g/dL Lipase (23-300) U/L Urine Color (Yellow) Urine Appearance (Clear) Urine pH (4.6-8.0) Ur Specific Thida (1.005-1.030) Urine Protein (Negative) Urine Glucose (UA) (Negative) mg/dL Urine Ketones (Negative) Urine Blood (Negative) Urine Nitrite (Negative) Urine Bilirubin (Negative) Urine Urobilinogen (0.2) mg/dL Ur Leukocyte Esterase (Negative) U Hyaline Cast (Auto) (0-2) /LPF Urine Microscopic RBC (0-5) /HPF Urine Microscopic WBC (0-5) /HPF Ur Epithelial Cells (None Seen) /HPF Urine Bacteria (None Seen) /HPF Urine Culture Reflexed (NO) 07/26/24 07/26/24 07/26/24 Range/Units 01:05 01:05 02:42 WBC 14.8 H (3.98-10.04) x10^3/uL RBC 3.85 L (3.93-5.22) x10^6/uL Hgb 11.8 (11.2-15.7) g/dL Hct 37.2 (34.1-44.9) % MCV 96.6 H (79.4-94.8) fL MCH 30.6 (25.6-32.2) pg MCHC 31.7 L (32.2-35.5) g/dL RDW 14.5 H (11.7-14.4) % Plt Count 436 H (182-369) x10^3/uL MPV 9.0 L (9.4-12.3) fL Gran % 76.7 H (34.0-71.1) % Immature Gran % (Auto) 0.5 H (0.001-0.429) % Nucleat RBC Rel Count 0.0 (0.00-0.2) % Eos # (Auto) 0.13 (0.04-0.36) x10^3/uL Immature Gran # (Auto) 0.07 H (0.001-0.031) x10^3u/L Absolute Lymphs (auto) 2.07 (1.18-3.74) x10^3/uL Absolute Monos (auto) 1.07 H (0.24-0.86) x10^3/uL Absolute Nucleated RBC 0.00 (0.00-0.012) x10^3u/L Lymphocytes % 14.0 L (19.3-51.7) % Monocytes % 7.2 (4.7-12.5) % Eosinophils % 0.9 (0.7-5.8) % Basophils % 0.7 (0.1-1.2) % Absolute Granulocytes 11.38 H (1.56-6.13) x10^3/uL Basophils # 0.10 H (0.01-0.08) x10^3/uL pO2/FiO2 Ratio % VBG pH (7.32-7.42) VBG pCO2 at Pat Temp (42-55) mm/Hg VBG pO2 at Pat Temp (25-40) mm/Hg VBG HCO3 (22-28) meq/L VBG O2 Sat (Moe) (95-100) VBG Base Excess (-2.0-2.0) VBG Hemoglobin VBG Carboxyhemoglobin (0.0-6.9) % T HGB POC Potassium (3.5-5.1) Sodium 136 (135-145) mmol/L Potassium 4.5 (3.5-5.1) mmol/L Chloride 99 (98-107) mmol/L Carbon Dioxide 14 L* (22-30) mmol/L Anion Gap 28.1 H (5-15) MEQ/L BUN 33 H (7-17) mg/dL Creatinine 1.07 H (0.52-1.04) mg/dL Estimated GFR 58.7 ML/MIN Glucose 377 H (74-106) mg/dL POC Glucometer 454 H (74 to 106) mg/dL Lactic Acid (0.4-2.0) Calcium 9.6 (8.4-10.2) mg/dL Phosphorus (2.5-4.5) mg/dL Magnesium (1.6-2.3) mg/dL Total Bilirubin 0.80 (0.2-1.3) mg/dL AST 24 (14-36) U/L ALT 25 (0-35) U/L Alkaline Phosphatase 195 H (38-126) U/L Serum Total Protein 6.8 (6.3-8.2) g/dL Albumin 3.8 (3.5-5.0) g/dL Lipase 33 (23-300) U/L Urine Color (Yellow) Urine Appearance (Clear) Urine pH (4.6-8.0) Ur Specific Thida (1.005-1.030) Urine Protein (Negative) Urine Glucose (UA) (Negative) mg/dL Urine Ketones (Negative) Urine Blood (Negative) Urine Nitrite (Negative) Urine Bilirubin (Negative) Urine Urobilinogen (0.2) mg/dL Ur Leukocyte Esterase (Negative) U Hyaline Cast (Auto) (0-2) /LPF Urine Microscopic RBC (0-5) /HPF Urine Microscopic WBC (0-5) /HPF Ur Epithelial Cells (None Seen) /HPF Urine Bacteria (None Seen) /HPF Urine Culture Reflexed (NO) 07/26/24 07/26/24 07/26/24 Range/Units 04:30 04:32 05:03 WBC 14.7 H (3.98-10.04) x10^3/uL RBC 3.72 L (3.93-5.22) x10^6/uL Hgb 11.5 (11.2-15.7) g/dL Hct 36.4 (34.1-44.9) % MCV 97.8 H (79.4-94.8) fL MCH 30.9 (25.6-32.2) pg MCHC 31.6 L (32.2-35.5) g/dL RDW 14.4 (11.7-14.4) % Plt Count 379 H (182-369) x10^3/uL MPV 8.6 L (9.4-12.3) fL Gran % (34.0-71.1) % Immature Gran % (Auto) (0.001-0.429) % Nucleat RBC Rel Count (0.00-0.2) % Eos # (Auto) (0.04-0.36) x10^3/uL Immature Gran # (Auto) (0.001-0.031) x10^3u/L Absolute Lymphs (auto) (1.18-3.74) x10^3/uL Absolute Monos (auto) (0.24-0.86) x10^3/uL Absolute Nucleated RBC (0.00-0.012) x10^3u/L Lymphocytes % (19.3-51.7) % Monocytes % (4.7-12.5) % Eosinophils % (0.7-5.8) % Basophils % (0.1-1.2) % Absolute Granulocytes (1.56-6.13) x10^3/uL Basophils # (0.01-0.08) x10^3/uL pO2/FiO2 Ratio % VBG pH (7.32-7.42) VBG pCO2 at Pat Temp (42-55) mm/Hg VBG pO2 at Pat Temp (25-40) mm/Hg VBG HCO3 (22-28) meq/L VBG O2 Sat (Moe) (95-100) VBG Base Excess (-2.0-2.0) VBG Hemoglobin VBG Carboxyhemoglobin (0.0-6.9) % T HGB POC Potassium (3.5-5.1) Sodium (135-145) mmol/L Potassium (3.5-5.1) mmol/L Chloride (98-107) mmol/L Carbon Dioxide (22-30) mmol/L Anion Gap (5-15) MEQ/L BUN (7-17) mg/dL Creatinine (0.52-1.04) mg/dL Estimated GFR ML/MIN Glucose (74-106) mg/dL POC Glucometer 346 H (74 to 106) mg/dL Lactic Acid 1.6 (0.4-2.0) Calcium (8.4-10.2) mg/dL Phosphorus (2.5-4.5) mg/dL Magnesium (1.6-2.3) mg/dL Total Bilirubin (0.2-1.3) mg/dL AST (14-36) U/L ALT (0-35) U/L Alkaline Phosphatase (38-126) U/L Serum Total Protein (6.3-8.2) g/dL Albumin (3.5-5.0) g/dL Lipase (23-300) U/L Urine Color (Yellow) Urine Appearance (Clear) Urine pH (4.6-8.0) Ur Specific Thida (1.005-1.030) Urine Protein (Negative) Urine Glucose (UA) (Negative) mg/dL Urine Ketones (Negative) Urine Blood (Negative) Urine Nitrite (Negative) Urine Bilirubin (Negative) Urine Urobilinogen (0.2) mg/dL Ur Leukocyte Esterase (Negative) U Hyaline Cast (Auto) (0-2) /LPF Urine Microscopic RBC (0-5) /HPF Urine Microscopic WBC (0-5) /HPF Ur Epithelial Cells (None Seen) /HPF Urine Bacteria (None Seen) /HPF Urine Culture Reflexed (NO) 07/26/24 07/26/24 07/26/24 Range/Units 05:03 05:03 05:05 WBC (3.98-10.04) x10^3/uL RBC (3.93-5.22) x10^6/uL Hgb (11.2-15.7) g/dL Hct (34.1-44.9) % MCV (79.4-94.8) fL MCH (25.6-32.2) pg MCHC (32.2-35.5) g/dL RDW (11.7-14.4) % Plt Count (182-369) x10^3/uL MPV (9.4-12.3) fL Gran % (34.0-71.1) % Immature Gran % (Auto) (0.001-0.429) % Nucleat RBC Rel Count (0.00-0.2) % Eos # (Auto) (0.04-0.36) x10^3/uL Immature Gran # (Auto) (0.001-0.031) x10^3u/L Absolute Lymphs (auto) (1.18-3.74) x10^3/uL Absolute Monos (auto) (0.24-0.86) x10^3/uL Absolute Nucleated RBC (0.00-0.012) x10^3u/L Lymphocytes % (19.3-51.7) % Monocytes % (4.7-12.5) % Eosinophils % (0.7-5.8) % Basophils % (0.1-1.2) % Absolute Granulocytes (1.56-6.13) x10^3/uL Basophils # (0.01-0.08) x10^3/uL pO2/FiO2 Ratio % VBG pH (7.32-7.42) VBG pCO2 at Pat Temp (42-55) mm/Hg VBG pO2 at Pat Temp (25-40) mm/Hg VBG HCO3 (22-28) meq/L VBG O2 Sat (Moe) (95-100) VBG Base Excess (-2.0-2.0) VBG Hemoglobin VBG Carboxyhemoglobin (0.0-6.9) % T HGB POC Potassium (3.5-5.1) Sodium 138 (135-145) mmol/L Potassium 4.2 (3.5-5.1) mmol/L Chloride 102 (98-107) mmol/L Carbon Dioxide 14 L* (22-30) mmol/L Anion Gap 25.9 H (5-15) MEQ/L BUN 35 H (7-17) mg/dL Creatinine 1.11 H (0.52-1.04) mg/dL Estimated GFR 56.2 ML/MIN Glucose 314 H (74-106) mg/dL POC Glucometer 309 H (74 to 106) mg/dL Lactic Acid (0.4-2.0) Calcium 9.2 (8.4-10.2) mg/dL Phosphorus 4.1 (2.5-4.5) mg/dL Magnesium (1.6-2.3) mg/dL Total Bilirubin (0.2-1.3) mg/dL AST (14-36) U/L ALT (0-35) U/L Alkaline Phosphatase (38-126) U/L Serum Total Protein (6.3-8.2) g/dL Albumin (3.5-5.0) g/dL Lipase (23-300) U/L Urine Color (Yellow) Urine Appearance (Clear) Urine pH (4.6-8.0) Ur Specific Thida (1.005-1.030) Urine Protein (Negative) Urine Glucose (UA) (Negative) mg/dL Urine Ketones (Negative) Urine Blood (Negative) Urine Nitrite (Negative) Urine Bilirubin (Negative) Urine Urobilinogen (0.2) mg/dL Ur Leukocyte Esterase (Negative) U Hyaline Cast (Auto) (0-2) /LPF Urine Microscopic RBC (0-5) /HPF Urine Microscopic WBC (0-5) /HPF Ur Epithelial Cells (None Seen) /HPF Urine Bacteria (None Seen) /HPF Urine Culture Reflexed (NO) 07/26/24 07/26/24 07/26/24 Range/Units 06:11 07:03 08:13 WBC (3.98-10.04) x10^3/uL RBC (3.93-5.22) x10^6/uL Hgb (11.2-15.7) g/dL Hct (34.1-44.9) % MCV (79.4-94.8) fL MCH (25.6-32.2) pg MCHC (32.2-35.5) g/dL RDW (11.7-14.4) % Plt Count (182-369) x10^3/uL MPV (9.4-12.3) fL Gran % (34.0-71.1) % Immature Gran % (Auto) (0.001-0.429) % Nucleat RBC Rel Count (0.00-0.2) % Eos # (Auto) (0.04-0.36) x10^3/uL Immature Gran # (Auto) (0.001-0.031) x10^3u/L Absolute Lymphs (auto) (1.18-3.74) x10^3/uL Absolute Monos (auto) (0.24-0.86) x10^3/uL Absolute Nucleated RBC (0.00-0.012) x10^3u/L Lymphocytes % (19.3-51.7) % Monocytes % (4.7-12.5) % Eosinophils % (0.7-5.8) % Basophils % (0.1-1.2) % Absolute Granulocytes (1.56-6.13) x10^3/uL Basophils # (0.01-0.08) x10^3/uL pO2/FiO2 Ratio % VBG pH (7.32-7.42) VBG pCO2 at Pat Temp (42-55) mm/Hg VBG pO2 at Pat Temp (25-40) mm/Hg VBG HCO3 (22-28) meq/L VBG O2 Sat (Moe) (95-100) VBG Base Excess (-2.0-2.0) VBG Hemoglobin VBG Carboxyhemoglobin (0.0-6.9) % T HGB POC Potassium (3.5-5.1) Sodium (135-145) mmol/L Potassium (3.5-5.1) mmol/L Chloride (98-107) mmol/L Carbon Dioxide (22-30) mmol/L Anion Gap (5-15) MEQ/L BUN (7-17) mg/dL Creatinine (0.52-1.04) mg/dL Estimated GFR ML/MIN Glucose (74-106) mg/dL POC Glucometer 202 H 158 H 128 H (74 to 106) mg/dL Lactic Acid (0.4-2.0) Calcium (8.4-10.2) mg/dL Phosphorus (2.5-4.5) mg/dL Magnesium (1.6-2.3) mg/dL Total Bilirubin (0.2-1.3) mg/dL AST (14-36) U/L ALT (0-35) U/L Alkaline Phosphatase (38-126) U/L Serum Total Protein (6.3-8.2) g/dL Albumin (3.5-5.0) g/dL Lipase (23-300) U/L Urine Color (Yellow) Urine Appearance (Clear) Urine pH (4.6-8.0) Ur Specific Thida (1.005-1.030) Urine Protein (Negative) Urine Glucose (UA) (Negative) mg/dL Urine Ketones (Negative) Urine Blood (Negative) Urine Nitrite (Negative) Urine Bilirubin (Negative) Urine Urobilinogen (0.2) mg/dL Ur Leukocyte Esterase (Negative) U Hyaline Cast (Auto) (0-2) /LPF Urine Microscopic RBC (0-5) /HPF Urine Microscopic WBC (0-5) /HPF Ur Epithelial Cells (None Seen) /HPF Urine Bacteria (None Seen) /HPF Urine Culture Reflexed (NO) 07/26/24 07/26/24 07/26/24 Range/Units 08:32 08:37 09:01 WBC (3.98-10.04) x10^3/uL RBC (3.93-5.22) x10^6/uL Hgb (11.2-15.7) g/dL Hct (34.1-44.9) % MCV (79.4-94.8) fL MCH (25.6-32.2) pg MCHC (32.2-35.5) g/dL RDW (11.7-14.4) % Plt Count (182-369) x10^3/uL MPV (9.4-12.3) fL Gran % (34.0-71.1) % Immature Gran % (Auto) (0.001-0.429) % Nucleat RBC Rel Count (0.00-0.2) % Eos # (Auto) (0.04-0.36) x10^3/uL Immature Gran # (Auto) (0.001-0.031) x10^3u/L Absolute Lymphs (auto) (1.18-3.74) x10^3/uL Absolute Monos (auto) (0.24-0.86) x10^3/uL Absolute Nucleated RBC (0.00-0.012) x10^3u/L Lymphocytes % (19.3-51.7) % Monocytes % (4.7-12.5) % Eosinophils % (0.7-5.8) % Basophils % (0.1-1.2) % Absolute Granulocytes (1.56-6.13) x10^3/uL Basophils # (0.01-0.08) x10^3/uL pO2/FiO2 Ratio % VBG pH (7.32-7.42) VBG pCO2 at Pat Temp (42-55) mm/Hg VBG pO2 at Pat Temp (25-40) mm/Hg VBG HCO3 (22-28) meq/L VBG O2 Sat (Moe) (95-100) VBG Base Excess (-2.0-2.0) VBG Hemoglobin VBG Carboxyhemoglobin (0.0-6.9) % T HGB POC Potassium (3.5-5.1) Sodium 138 (135-145) mmol/L Potassium 4.1 (3.5-5.1) mmol/L Chloride 105 (98-107) mmol/L Carbon Dioxide 23 (22-30) mmol/L Anion Gap 13.8 (5-15) MEQ/L BUN 33 H (7-17) mg/dL Creatinine 0.90 (0.52-1.04) mg/dL Estimated GFR 72.3 ML/MIN Glucose 113 H (74-106) mg/dL POC Glucometer 111 H (74 to 106) mg/dL Lactic Acid (0.4-2.0) Calcium 8.9 (8.4-10.2) mg/dL Phosphorus (2.5-4.5) mg/dL Magnesium (1.6-2.3) mg/dL Total Bilirubin (0.2-1.3) mg/dL AST (14-36) U/L ALT (0-35) U/L Alkaline Phosphatase (38-126) U/L Serum Total Protein (6.3-8.2) g/dL Albumin (3.5-5.0) g/dL Lipase (23-300) U/L Urine Color Yellow (Yellow) Urine Appearance Cloudy A (Clear) Urine pH 5.5 (4.6-8.0) Ur Specific Thida 1.015 (1.005-1.030) Urine Protein 100 A (Negative) Urine Glucose (UA) 500 A (Negative) mg/dL Urine Ketones 40 A (Negative) Urine Blood Moderate A (Negative) Urine Nitrite Negative (Negative) Urine Bilirubin Negative (Negative) Urine Urobilinogen 0.2 (0.2) mg/dL Ur Leukocyte Esterase Small A (Negative) U Hyaline Cast (Auto) 3-5 A (0-2) /LPF Urine Microscopic RBC 51-100 A (0-5) /HPF Urine Microscopic WBC 21-50 A (0-5) /HPF Ur Epithelial Cells Rare (None Seen) /HPF Urine Bacteria Rare A (None Seen) /HPF Urine Culture Reflexed YES (NO) 07/26/24 07/26/24 Range/Units 09:57 10:58 WBC (3.98-10.04) x10^3/uL RBC (3.93-5.22) x10^6/uL Hgb (11.2-15.7) g/dL Hct (34.1-44.9) % MCV (79.4-94.8) fL MCH (25.6-32.2) pg MCHC (32.2-35.5) g/dL RDW (11.7-14.4) % Plt Count (182-369) x10^3/uL MPV (9.4-12.3) fL Gran % (34.0-71.1) % Immature Gran % (Auto) (0.001-0.429) % Nucleat RBC Rel Count (0.00-0.2) % Eos # (Auto) (0.04-0.36) x10^3/uL Immature Gran # (Auto) (0.001-0.031) x10^3u/L Absolute Lymphs (auto) (1.18-3.74) x10^3/uL Absolute Monos (auto) (0.24-0.86) x10^3/uL Absolute Nucleated RBC (0.00-0.012) x10^3u/L Lymphocytes % (19.3-51.7) % Monocytes % (4.7-12.5) % Eosinophils % (0.7-5.8) % Basophils % (0.1-1.2) % Absolute Granulocytes (1.56-6.13) x10^3/uL Basophils # (0.01-0.08) x10^3/uL pO2/FiO2 Ratio % VBG pH (7.32-7.42) VBG pCO2 at Pat Temp (42-55) mm/Hg VBG pO2 at Pat Temp (25-40) mm/Hg VBG HCO3 (22-28) meq/L VBG O2 Sat (Moe) (95-100) VBG Base Excess (-2.0-2.0) VBG Hemoglobin VBG Carboxyhemoglobin (0.0-6.9) % T HGB POC Potassium (3.5-5.1) Sodium (135-145) mmol/L Potassium (3.5-5.1) mmol/L Chloride (98-107) mmol/L Carbon Dioxide (22-30) mmol/L Anion Gap (5-15) MEQ/L BUN (7-17) mg/dL Creatinine (0.52-1.04) mg/dL Estimated GFR ML/MIN Glucose (74-106) mg/dL POC Glucometer 123 H 116 H (74 to 106) mg/dL Lactic Acid (0.4-2.0) Calcium (8.4-10.2) mg/dL Phosphorus (2.5-4.5) mg/dL Magnesium (1.6-2.3) mg/dL Total Bilirubin (0.2-1.3) mg/dL AST (14-36) U/L ALT (0-35) U/L Alkaline Phosphatase (38-126) U/L Serum Total Protein (6.3-8.2) g/dL Albumin (3.5-5.0) g/dL Lipase (23-300) U/L Urine Color (Yellow) Urine Appearance (Clear) Urine pH (4.6-8.0) Ur Specific Thida (1.005-1.030) Urine Protein (Negative) Urine Glucose (UA) (Negative) mg/dL Urine Ketones (Negative) Urine Blood (Negative) Urine Nitrite (Negative) Urine Bilirubin (Negative) Urine Urobilinogen (0.2) mg/dL Ur Leukocyte Esterase (Negative) U Hyaline Cast (Auto) (0-2) /LPF Urine Microscopic RBC (0-5) /HPF Urine Microscopic WBC (0-5) /HPF Ur Epithelial Cells (None Seen) /HPF Urine Bacteria (None Seen) /HPF Urine Culture Reflexed (NO) Micro Results-Entire Visit: Accuchecks Date 07/26/24 Date 07/26/24 Date 07/26/24 Date 07/26/24 Date 07/26/24 Date 07/26/24 Date 07/26/24 Date 07/26/24 Time 11:00 Time 10:10 Time 09:00 Time 08:13 Time 07:03 Time 06:11 Time 05:05 Time 04:30 - Radiology Exams Ordered Rad Exams-Entire Visit: Radiology Procedures Category Date Time Status ABDOMEN AND PELVIS W/0 CONTRAS [CT] Stat Exams 07/26/24 01:14 Completed Ultrasound Liver or Spleen [LIVER OR SPLEEN] [US] Exams 07/26/24 07:49 Taken Routine - Procedures and Test Procedures and Tests throughout Hospitalization: Therapy Orders & Screens 07/26/24 05:39 Smoking Cessation Education ONCE Comment: Diagnosis: nausea, vomiting, diarrhea Smoking Status: Current every day smoker How long have you smoked: 30+ years Have you smoked in the past 12 months: Yes Approximately how many cigarettes per day: 1/2 pack/day Do you dip or chew tobacco: No Discharge Exam General Appearance: no apparent distress, alert, thin Neurologic Exam: alert, oriented x 3, cooperative, normal mood/affect, nml cerebellar function, sensation nml, No motor deficits Eye Exam: PERRL, EOMI, eyes nml inspection Ears, Nose, Throat Exam: normal ENT inspection, pharynx normal, moist mucous membranes Neck Exam: normal inspection, non-tender, supple, full range of motion Respiratory Exam: normal breath sounds, lungs clear, No respiratory distress Cardiovascular Exam: regular rate/rhythm, normal heart sounds Gastrointestinal/Abdomen Exam: soft, No tenderness, No mass Pelvic Exam: deferred Rectal Exam: deferred Back Exam: normal inspection, normal range of motion, No CVA tenderness, No vertebral tenderness Extremity Exam: normal inspection, normal range of motion Skin Exam: normal color, warm, dry Final Diagnosis/Problem List - Final Discharge Diagnosis/Problem (1) DKA (diabetic ketoacidosis) Current Visit: Yes Status: Acute Assessment & Plan: - ICU tele - DKA protocol - gap closed started lantus and humalog s/s - accuchecks changed to ac/hs - CBC. CMP reviewed - Mg+ replaced - advance diet as tolerated Code(s): E11.10 - TYPE 2 DIABETES MELLITUS WITH KETOACIDOSIS WITHOUT COMA (2) Hypomagnesemia Current Visit: Yes Status: Acute Assessment & Plan: - MG+1.5- replaced- trend Code(s): E83.42 - HYPOMAGNESEMIA (3) Dilated bile duct Current Visit: Yes Status: Acute Assessment & Plan: - Dilated hepatic bile duct seen on CT> 20mm - US negative for acute concern per radiologist - Referral made OP for business transformation consultant - Will continue to follow UC and BC x2 OP Code(s): K83.8 - OTHER SPECIFIED DISEASES OF BILIARY TRACT (4) Acute cystitis Current Visit: Yes Status: Acute Assessment & Plan: - Started zyvix based on old cultures- pt does not want to continue as she would need to hold some of her meds d/t interactions. - Started Bactrim BID- will continue OP - Referred to urology OP for repeated infections Code(s): N30.00 - ACUTE CYSTITIS WITHOUT HEMATURIA (5) Nausea & vomiting Current Visit: Yes Status: Acute Assessment & Plan: - Antiemetics - Resolved - IVF for DKA Code(s): R11.2 - NAUSEA WITH VOMITING, UNSPECIFIED (6) Pleural effusion Current Visit: Yes Status: Acute Assessment & Plan: - Mild left as seenon CT - With hx of Lung cancer LLL with lobectomy - Will need to f/u Op with Pulm as we do not have radiology here to do thoracentesis at this time- will need repeat CXR OP for further evaluation. Code(s): J90 - PLEURAL EFFUSION, NOT ELSEWHERE CLASSIFIED (7) Underweight (BMI < 18.5) Current Visit: Yes Status: Chronic Assessment & Plan: - BMI 16.5 - Nutrition consult Code(s): R63.6 - UNDERWEIGHT; Z68.1 - BODY MASS INDEX [BMI] 19.9 OR LESS, ADULT (8) Diarrhea Current Visit: Yes Status: Chronic Assessment & Plan: - Continue probiotics - C-diff- pending Code(s): R19.7 - DIARRHEA, UNSPECIFIED - Discharge Discharge Date: 07/26/24 Disposition: Home, Self-Care Condition: Stable Prescriptions: New Smz/Tmp Ds Tablet [Bactrim Ds Tablet] 1 tab PO BID 14 Days #28 tablet Continue Insulin Aspart [NovoLOG Insulin] 0 unit SQ AC PRN PRN Reason: Hyperglycemia Insulin Glargine,Hum.rec.anlog [Toujeo Solostar] 16 unit SQ QHS Mirtazapine 30 mg [Remeron 30 mg] 30 mg PO HS Tramadol HCl 50 mg [Ultram 50 mg] 50 mg PO Q8H PRN PRN PRN Reason: Pain Duloxetine HCl 30 mg [Cymbalta 30 MG Capsule] 30 mg PO BID Cyanocobalamin 1000 Mcg/ml [Cyanocobalamin B-12 1000 MCG/ML] 1,000 mcg IJ UD Buspirone HCl 5 mg [Buspar 5 mg] 10 mg PO TID Atorvastatin Calcium [Lipitor] 20 mg PO HS Benzonatate 200 mg PO TID Additional Instructions: Your records are being sent to Dr. Joseph's for Urology referral. Follow up with: LAURIE LEZAMA [NON-STAFF PHY W/O PRIVILEGES] - RADHA MOONEY MD [NON-STAFF PHY W/O PRIVILEGES] - 11/19/24 9:20 am (UPDATED ADDRESS: [id number] [place] [id number] PHONE: [phone]) LYUDMILA ARIAS MD [Primary Care Provider] - 08/05/24 3:00 pm ([facility])
[2024-07-26] MEDS: BACTRIM DS TABLET PO SCH (12:12)
[2024-07-26] MEDS: ULTRAM 50 MG PO PRN (12:16)
[2024-07-26 13:06] LABS: ANION GAP 11.6 MEQ/L (5-15); Calcium 8.6 mg/dL (8.4-10.2); Creatinine 1 0.83 mg/dL (0.52-1.04); EST GLOMERULAR FILTRATION RATE 79.7 ML/MIN; Potassium 4.2 mmol/L (3.5-5.1)
[2024-07-26 14:29] LABS: MAGNESIUM 1.7 mg/dL (1.6-2.3); Potassium 4.5 mmol/L (3.5-5.1)
[2024-07-26 15:38] VITALS: BP 130/68; PULSE 78; RESP 21; O2SAT 97
--- NOTE | 2024-07-26 21:13 | XRAY ---
Indication: Dilated hepatic bile duct. Cholecystectomy. Two-dimensional right upper quadrant abdominal sonogram performed. Comparison: None Pancreas not well seen. Visualized liver homogeneous in echogenicity. No hepatomegaly or ascites. Gallbladder surgically absent. Common bile duct measures 4.3 mm. No intrahepatic biliary distention. Right kidney measures 8.4 x 3.6 x 4.3 cm and sonographically unremarkable. Impression: Nonvisualization pancreas. Cholecystectomy. Remaining right upper quadrant sonogram is negative.
[2024-07-26] MEDS ORDERED: ZOCOR 20MG PO SCH (22:00)
[2024-07-26] MEDS ORDERED: REMERON 30 MG PO SCH (22:00)
== END 2024-07-26 15:54 | disposition home or self-care (01) ==
LOC: ED 00:41 → ICU 03:25
PROVIDERS: ADMIT Internal Medicine; ATTEND Internal Medicine
DX: E11.10 Type 2 diabetes mellitus with ketoacidosis without coma (principal); E83.42 Hypomagnesemia; K83.8 Other specified diseases of biliary tract; N30.00 Acute cystitis without hematuria; R11.2 Nausea with vomiting, unspecified; J90 Pleural effusion, not elsewhere classified; R63.6 Underweight; R19.7 Diarrhea, unspecified; I10 Essential (primary) hypertension; J44.9 Chronic obstructive pulmonary disease, unspecified; I25.10 Atherosclerotic heart disease of native coronary artery without angina pectoris; E11.9 Type 2 diabetes mellitus without complications; F17.200 Nicotine dependence, unspecified, uncomplicated; Z68.1 Body mass index [BMI] 19.9 or less, adult; Z79.899 Other long term (current) drug therapy; Z85.118 Personal history of other malignant neoplasm of bronchus and lung
CPT/HCPCS: 36415; 74176; 76705; 80048; 80053; 81001; 82805; 82947; 83605; 83690; 83735; 84100; 84132; 85025; 85027; 87040; 87077; 87086; 87186; 93268; 96374; 96375; 99291; G0378; Q3014; 99285; J0696; J1642; J1650; J2020; J2270; J2405; A9270-GY; J3475

== ENCOUNTER 2024-11-23 11:20 | Emergency (ER) | payer BC ==
[2024-11-23 11:40] VITALS: TEMP 97.6; O2SAT 97
--- NOTE | 2024-11-23 11:55 | ERPHSYRPT ---
- History of Present Illness Source: patient Exam Limitations: no limitations Patient Subjective Stated Complaint: Pt reports she was stepping up into truck after a concert last night when she felt a pop in her left knee. Since then she has had swelling and pain in left knee. Triage Nursing Assessment: Pt alert and oriented x3. Respirations easy/nonlabored. Skin w/p/d. Wheeled to ED cot, transferred by pivoting on right foot. Accompanied by spouse. Left knee swollen. Swelling to bilat lower extremities which is unrelated per patient. Per pt she has rods/screws in left knee from a surgery approx 2 years ago. Unsure of where she had surgery done or who surgeon was. Physician History: Patient has left knee pain. She had a procedure on there from a what sounds like a fractured tibial plateau in the past. She says she was just stepping up onto a step and felt an immediate surge of pain. The knee is swollen up since then. It was not a major trauma but it was a trauma nonetheless. She has no other pain or issues. Pain is moderate to severe. Walking makes it a lot worse rest ice and elevate makes it better. Allergies/Adverse Reactions: orphenadrine citrate [From Norflex] Allergy (Intermediate, Verified 11/23/24 11:33) severe vomiting adhesive tape Allergy (Verified 11/23/24 11:33) levofloxacin [From Levaquin] Adverse Reaction (Mild, Verified 11/23/24 11:33) Nausea and Vomiting meropenem [From Merrem] Adverse Reaction (Verified 11/23/24 11:33) Headache Home Medications: Insulin Aspart [NovoLOG Insulin] 0 unit SQ AC PRN 10/08/22 [History] Insulin Glargine,Hum.rec.anlog [Toujeo Solostar] 16 unit SQ QHS 11/28/22 [History] Mirtazapine 30 mg [Remeron 30 mg] 30 mg PO HS 01/01/23 [History] Atorvastatin Calcium [Lipitor] 20 mg PO HS 06/25/24 [History] Cyanocobalamin 1000 Mcg/ml [Cyanocobalamin B-12 1000 MCG/ML] 1,000 mcg IJ UD 06/25/24 [History] Duloxetine HCl 30 mg [Cymbalta 30 MG Capsule] 30 mg PO BID 06/25/24 [History] Hx Tetanus, Diphtheria Vaccination/Date Given: Yes (2015) Hx Influenza Vaccination/Date Given: Yes Hx Pneumococcal Vaccination/Date Given: Yes Travel Risk - International Travel Have you traveled outside of the country in past 3 weeks: No - Emerging Infectious Disease Are you exhibiting symptoms associated with any current EIDs: No Symptoms: Abdominal Pain, Diarrhea, Vomitting - Review of Systems Constitutional: No Symptoms Eyes: No Symptoms Abdominal/Gastrointestinal: No Symptoms Genitourinary Symptoms: No Symptoms Musculoskeletal: Joint Pain Skin: No Symptoms Neurological: No Symptoms Psychological: No Symptoms All Other Systems: Reviewed and Negative - Past Medical History Pertinent Past Medical History: Yes Neurological History: No Pertinent History ENT History: Cataracts Cardiac History: High Cholesterol, Hypertension Respiratory History: Bronchitis, COPD, Emphysema, Other Endocrine Medical History: Diabetes Type I Musculoskeletal History: Fractures, Other GI Medical History: GERD History: Renal Disease Psycho-Social History: Anxiety, Depression Female Reproductive Disorders: No Pertinent History Other Medical History: Lung cancer (s/p L lower lobectomy), cardiac stents x2, LLE fracture (s/p surgical intervention), cholecystectomy, tubal ligation - Past Surgical History Past Surgical History: Yes Neuro Surgical History: No Pertinent History Cardiac: Cardiac Catheterization, Cardiac Stent Respiratory: Lobectomy Gastrointestinal: Cholecystectomy Genitourinary: No Pertinent History Musculoskeletal: Other Female Surgical History: Tubal Ligation Other Surgical History: BUNONECTOMY. BACK SURGERY X2, right upper chest port placement. LL lung. lobectomy. left elbow Significant Family History: heart disease, diabetes, hypertension - Social History Smoking Status: Current every day smoker Exposure to second hand smoke: Yes Drug Use: none - Social Determinants of Health Will the patient participate in the screening: Declined to provide - Nursing Vital Signs Nursing Vital Signs: Initial Vital Signs Temperature 97.6 F 11/23/24 11:28 Pulse Rate 94 H 11/23/24 11:28 Respiratory Rate 18 11/23/24 11:28 Blood Pressure 144/80 11/23/24 11:28 O2 Sat by Pulse Oximetry 97 11/23/24 11:28 Pain Scale Pain Intensity 5 - Physical Exam General Appearance: no apparent distress Eyes, Ears, Nose, Throat Exam: normal ENT inspection Back Exam: normal inspection Hips Exam: bilateral: non-tender, normal inspection, normal range of motion Legs Exam: bilateral leg: non-tender, normal inspection, normal range of motion, no evidence of injury Knees Exam: left knee: joint effusion (Mild), pain, soft tissue tenderness, swelling Ankle Exam: bilateral ankle: non-tender, normal inspection, normal range of motion, no evidence of injury Foot Exam: bilateral foot: non-tender, normal inspection, normal range of motion, no evidence of injury Neuro/Tendon Exam: normal sensation, normal motor functions, normal tendon functions Mental Status Exam: alert, oriented x 3 Skin Exam: normal color, warm, dry SpO2: 97 Ordered Tests: Active Orders 24 hr Category Date Time Status KNEE (3 VIEWS) Stat Exams 11/23/24 11:35 Taken - Progress Progress: unchanged Progress Note: X-ray was done and showed no acute findings. I think she has some sort of internal derangement. I would have her rest ice and elevate she has crutches at home. I will give her Wilmar and have her follow-up with her orthopedist. 11/23/24 12:56 - Departure Departure Disposition: Home Clinical Impression: Derangement, knee internal Condition: Stable Critical Care Time: No Referrals: LYUDMILA ARIAS MD [Primary Care Provider, [facility]NAL [facility]] - Follow up/PCP as directed Instructions: Ligament Injuries in the Knee (DC)
[2024-11-23] MEDS ORDERED: NORCO 5/325 MG ONE (13:06)
[2024-11-23] MEDS: NORCO 5/325 MG PO ONE (13:07)
[2024-11-23 13:30] VITALS: BP 120/65; PULSE 85; RESP 15
--- NOTE | 2024-11-23 20:58 | XRAY ---
Indication: Trauma. Comparison: March 27, 2016 3 view left knee demonstrates new intact distal femur orthopedic intramedullary gerson/transverse screws and small nonspecific effusion. Also new osteopenia and diffuse scattered vascular calcifications. No other bony, articular, or soft tissue abnormalities.
== END 2024-11-23 13:14 | disposition home or self-care (01) ==
LOC: ED 11:20
DX: M23.92 Unspecified internal derangement of left knee (principal); I10 Essential (primary) hypertension; E10.9 Type 1 diabetes mellitus without complications; Z79.891 Long term (current) use of opiate analgesic; Z79.899 Other long term (current) drug therapy; Z72.0 Tobacco use